=== PATIENT | male | born 1955 | race Asian ===

== ENCOUNTER 2018-08-14 22:18 | Inpatient (IN) | payer MEDICARE, MEDICAID ==
[~2018-08-14] VITALS: Ht 165.1 cm; Wt 51.7 kg
[2018-08-14] MEDS ORDERED: ASPIR 8181 MG ORAL (22:28)
[2018-08-14] MEDS ORDERED: BENAZEPRIL HCL20 MG ORAL (22:29)
[2018-08-14] MEDS ORDERED: CALCIUM CITRAT480 GM PO (22:30)
[2018-08-14] MEDS ORDERED: DOCUSATE SODIU100 MG ORAL (22:30)
[2018-08-14] MEDS ORDERED: FERROUS SU15 MG/1 M1 PO (22:31)
[2018-08-14] MEDS ORDERED: METFORMIN HCL500 M1 ORAL (22:31)
[2018-08-14] MEDS ORDERED: LEVAQUIN500 MG ORAL (22:31)
[2018-08-14] MEDS ORDERED: MILK OF MA400 MG/51 ORAL (22:32)
[2018-08-14] MEDS ORDERED: PRILOSEC OTC20 MG ORAL (22:32)
[2018-08-14 22:33] VITALS: BP 139/75
[2018-08-14] MEDS ORDERED: RISPERDAL0.25 MG ORAL (22:33)
--- NOTE | 2018-08-14 22:33 | NUR ---
ED Nurse Note: Pt was brought in ED by Ambulance from [facility]/ [facility]. C/o pt was having fever 102. F. Pt is awake, confused. Temp 100. F on [place]. skine intact at sacrum area, bed rest, diaper in place. Dr. Holt at bed side, waitng for orders.
[2018-08-14] MEDS ORDERED: ACETAMINOPHEN120 MG GT (22:34)
--- NOTE | 2018-08-14 22:45 | NUR ---
ED Nurse Note: Blood and urine sample collected and sent to Lab.
--- NOTE | 2018-08-14 23:07 | NUR ---
ED Nurse Note: Meds given as ordered.
[2018-08-14] MEDS ORDERED: Azithromycin 500 MG in NS 275 ML IV ONE (23:15)
[2018-08-14] MEDS ORDERED: Cefepime HCl 1 GM in D5W 55 ML IVPB ONE (23:15)
[2018-08-14 23:16] LABS: HEMATOCRIT 45.1 % (42.0-52.0); HEMOGLOBIN 14.9 G/DL (14.2-18.0); MEAN CORPUSCULAR VOLUME 93 FL (80-99); PLATELET COUNT 324 K/UL (150-450); RED BLOOD COUNT 4.85 M/UL (4.70-6.10); RED CELL DISTRIBUTION WIDTH 11.7 % (11.6-14.8); WHITE BLOOD COUNT 15.6 K/UL (4.8-10.8)
[2018-08-14 23:24] LABS: ANION GAP 9 mmol/L (5-15); BLOOD UREA NITROGEN 35 mg/dL (7-18); CALCIUM 9.2 MG/DL (8.5-10.1); CARBON DIOXIDE 32 MMOL/L (21-32); CHLORIDE 110 MMOL/L (98-107); CREATININE 1.1 MG/DL (0.55-1.30); POTASSIUM 4.1 MMOL/L (3.5-5.1); SODIUM 151 MMOL/L (136-145)
[2018-08-14 23:37] LABS: ALANINE AMINOTRANSFERASE 42 U/L (12-78); ALBUMIN 3.3 G/DL (3.4-5.0); ALBUMIN/GLOBULIN RATIO 0.7 (1.0-2.7); ALKALINE PHOSPHATASE 129 U/L (46-116); ASPARTATE AMINO TRANSFERASE 23 U/L (15-37); BILIRUBIN,TOTAL 0.5 MG/DL (0.2-1.0); CKMB < 0.5 NG/ML (0.0-3.6); CREATINE KINASE 23 U/L (26-308)
[2018-08-15 00:22] LABS: APPEARANCE,URINE CLOUDY; BILIRUBIN, URINE NEGATIVE (NEGATIVE); COLOR,URINE PALE YELLOW; GLUCOSE, URINE (UA) NEGATIVE (NEGATIVE); KETONES,URINE NEGATIVE (NEGATIVE); LEUKOCYTE ESTERASE ,URINE 1+ (NEGATIVE); NITRITE,URINE NEGATIVE (NEGATIVE); PH,URINE 7 (4.5-8.0); PROTEIN,URINE 2+ (NEGATIVE); UROBILINOGEN,URINE 1 MG/DL (0.0-1.0)
--- NOTE | 2018-08-15 01:10 | NUR ---
TRANSFER TO FLOOR: Patient transferred to / [facility] as ordered . Report given to Jennifer/PATRICK . Belongings sent with Pt and rechecked with RN. Pt is A/O X 3. VSS.
--- NOTE | 2018-08-15 01:11 | Emergency Room Report ---
History of Present Illness General Chief Complaint: Fever Source: Medical Record, EMS Present Illness HPI This is a 62-year-old male from group home. He has multiple local problem including bedbound with feeding tube. He presents with chief complaint of fever and shortness of breath. He was treated for pneumonia with Levaquin. Just finished a course of antibiotics. Suspect a fever of 102 today. No nausea no vomiting. Tylenol given 24 hours ago. Unable to get any other history from patient because of his condition. Allergies: Coded Allergies: No Known Allergies (Unverified , 08/14/18) Patient History Past Medical History: see triage record, old chart reviewed, HTN, GERD, psych hx Past Surgical History: other Pertinent Family History: none Social History: Denies: smoking Immunizations: other Reviewed Nursing Documentation: PMH: Agreed; PSxH: Agreed Nursing Documentation-PMH Past Medical History: No History, Except For Hx Hypertension: Yes Hx Diabetes: Yes Hx Gastrointestinal Problems: Yes - gerd History Of Psychiatric Problem: Yes - schizophrenia Hx Neurological Problems: Yes - functional quadriplegia Review of Systems Constitutional: Reports: fever, malaise, weakness All Other Systems: limited - Secondary to condition Physical Exam Vital Signs Date Time Temp Pulse Resp B/P (MAP) Pulse Ox O2 Delivery O2 Flow Rate FiO2 08/14/18 22:19 102.0 120 20 173/77 97 Nasal Cannula 2.0 vitals with fever Sp02 EP Interpretation: abnormal General Appearance: mild distress Head: normocephalic, atraumatic Eyes: bilateral eye PERRL, bilateral eye EOMI ENT: hearing grossly normal, dry mucus membranes Neck: full range of motion, supple, no meningismus Respiratory: chest non-tender, decreased breath sounds, rhonchi Cardiovascular #1: regular rate, rhythm, no murmur Gastrointestinal: normal bowel sounds, non tender, no mass, no organomegaly, no bruit, non-distended Musculoskeletal: back normal, other - Contracted Psychiatric: mood/affect normal Skin: warm/dry Procedures Critical Care Time Critical Care Time Critical care is mandated in this patient who presented with sepsis from pneumonia. Patient require my urgent intervention to attenuate the risks of metabolic collapse which may lead to cardiovascular collapse and . Critical care time is 35 minutes excluding any reportable procedure. Critical care time included evaluation, multiple reevaluation, looking at old charts, interpreting laboratory and diagnostic data, discussing case with patient and family and consultants, and charting. Medical Decision Making Diagnostic Impression: Primary Impression: Healthcare associated bacterial pneumonia Additional Impressions: Dehydration Sepsis Qualified Codes: A41.9 - Sepsis, unspecified organism Hypernatremia ER Course Patient presents with sepsis secondary to pneumonia. Chest x-ray showed bibasilar reticular interstitial infiltrates. He was treated with Levaquin. We 'll broaden antibiotics with cefepime and azithromycin. Patient improve after IV fluid and antibiotics. Will admit I discussed the case with Dr. Garcia who will admit for Dr. Reynoso. Lab Results Impression labs with hypernatremia EKG Diagnostic Results Rate: tachycardiac Rhythm: NSR ST Segments: other - NSST changes Rhythm Strip Diag. Results Rhythm Strip Time: 01:10 EP Interpretation: yes Rate: 98 Rhythm: NSR, no PVC's, no ectopy Chest X-Ray Diagnostic Results Chest X-Ray Diagnostic Results : Chest X-Ray Ordered: Yes # of Views/Limited/Complete: 1 View Indication: Shortness of Breath EP Interpretation: Yes Interpretation: no effusion, no pneumothorax, other - b/l interstitial infiltrates Impression: Other - b/l infiltrates Electronically Signed by: Hiram Holt MD Last Vital Signs Date Time Temp Pulse Resp B/P (MAP) Pulse Ox O2 Delivery O2 Flow Rate FiO2 08/14/18 22:19 102.0 120 20 173/77 97 Nasal Cannula 2.0 Status: improved Disposition: ADMITTED INPATIENT Condition: Serious Referrals: Jasmeet Reynoso DO (PCP) Hiram Holt MD Aug 15, 2018 01:11
--- NOTE | 2018-08-15 01:30 | NUR ---
Received patient via gurney from ER. Nonverbal, on O2 3L via N/C. No SOB, no acute distress noted. GT clamped, skin intact. Admitting Dx is PNA, vitals stable. Med recon and swabs done in ER. Checked belongings. Bed in lowest position, locked, alarms on. Call light in reach. Will received admission orders from Dr Bhatia.
[2018-08-15] MEDS ORDERED: Acetaminophen 500mg (ES) tab ORAL PRN (02:00)
[2018-08-15 04:00] VITALS: BP 101/76
[2018-08-15 04:25] LABS: BASOPHILS % (AUTO) 0.6 % (0.0-2.0); EOSINOPHILS % (AUTO) 0.1 % (0.0-3.0); HEMATOCRIT 38.1 % (42.0-52.0); HEMOGLOBIN 12.4 G/DL (14.2-18.0); LYMPHOCYTES % (AUTO) 11.3 % (20.0-45.0); MEAN CORPUSCULAR VOLUME 94 FL (80-99); MONOCYTES % (AUTO) 3.7 % (1.0-10.0); NEUTROPHILS % (AUTO) 84.2 % (45.0-75.0); PLATELET COUNT 269 K/UL (150-450); RED BLOOD COUNT 4.05 M/UL (4.70-6.10); RED CELL DISTRIBUTION WIDTH 11.8 % (11.6-14.8); WHITE BLOOD COUNT 11.7 K/UL (4.8-10.8)
[2018-08-15 04:45] LABS: ALANINE AMINOTRANSFERASE 34 U/L (12-78); ALBUMIN 2.7 G/DL (3.4-5.0); ALBUMIN/GLOBULIN RATIO 0.7 (1.0-2.7); ALKALINE PHOSPHATASE 96 U/L (46-116); ANION GAP 5 mmol/L (5-15); ASPARTATE AMINO TRANSFERASE 22 U/L (15-37); BILIRUBIN,TOTAL 0.5 MG/DL (0.2-1.0); BLOOD UREA NITROGEN 27 mg/dL (7-18); CALCIUM 7.9 MG/DL (8.5-10.1); CARBON DIOXIDE 32 MMOL/L (21-32); CHLORIDE 116 MMOL/L (98-107); CREATININE 0.8 MG/DL (0.55-1.30); POTASSIUM 3.7 MMOL/L (3.5-5.1); SODIUM 153 MMOL/L (136-145)
--- NOTE | 2018-08-15 07:40 | NUR ---
HAND-OFF: Report given to PATRICK Simon.
--- NOTE | 2018-08-15 07:45 | NUR ---
received patient from PATRICK Reyes. patient in bed. awake. non verbal. low bed. call light within reach. cont to monitor
[2018-08-15 08:00] VITALS: BP 138/93
[2018-08-15] MEDS: Cefepime HCl 1 GM in D5W 55 ML IVPB SCH ×2 (08:59→21:33)
--- NOTE | 2018-08-15 11:30 | Consultation ---
DATE OF CONSULTATION: 08/15/2018 GASTROENTEROLOGY CONSULTATION CONSULTING PHYSICIAN: Arthur Horton M.D. CHIEF COMPLAINT: Dysphagia with G-tube and G-tube management and G-tube feeding. HISTORY OF PRESENT ILLNESS: This is an unfortunate 62-year-old male long-term patient, nonverbal, dysphagia with G-tube, most probably history of stroke in the past, neurological disorder, functional quadriplegia, was transferred to the hospital with pneumonia, for G-tube questions and feeding, so GI consulted for that. PAST MEDICAL HISTORY: 1. Hypertension. 2. GERD. 3. Dysphagia requiring G-tube. 4. Questionable CVA with functional quadriplegia. PAST SURGICAL HISTORY: Unknown. ALLERGIES: No known drug allergies. MEDICATIONS: Please see medication reconciliation list. SOCIAL HISTORY: Currently lives in a long-term. No history of tobacco, alcohol, or drug abuse. FAMILY HISTORY: Noncontributory. REVIEW OF SYSTEMS: Unable to obtain. PHYSICAL EXAMINATION: VITAL SIGNS: Temperature 98.1, pulse 90, respiratory rate 20, and blood pressure is 132/93. HEENT: Normocephalic and atraumatic. Sclerae anicteric. NECK: Supple. No evidence of lymphadenopathy. CARDIOVASCULAR: Regular rhythm. Plus S1 and S2. LUNGS: Decreased breath sounds bilaterally based on supine exam. ABDOMEN: Soft and nontender. G-tube in place. No rebound. No guarding. No peritoneal sign. EXTREMITIES: No cyanosis. No clubbing. No edema. LABORATORY DATA: White count is 11.7, hemoglobin 12, hematocrit 38, and platelet count is 269. ASSESSMENT AND PLAN: This is a 62-year-old male with numerous medical problems admitted to hospital with possible pneumonia antibiotics. G-tube was examined at the bedside, seems to be in the right place. Status post tube feeding, Glucerna 1.2 at 60 mL an hour. We will start the G-tube flushing with 100 mL of water every six hours. We will monitor his feeding, monitor his residual, monitor his blood sugar. Repeat laboratories for tomorrow. Antibiotics for pneumonia per ID. I want to thank, Dr. Pinky Bhatia, for this kind referral. Arthur Thien Horton DR: JERRY JOB#: [id number] CC: Pinky Bhatia M.D.; Fax#: [phone]
[2018-08-15 11:34] VITALS: BP 128/91
[2018-08-15] MEDS: NovoLOG Insulin Flexpen SUBQ SCH ×3 (12:23→21:32)
--- NOTE | 2018-08-15 12:30 | NUR ---
CASE MANAGEMENT:REVIEW BIBA FROM [facility] CC: FEVER. JUST FINISHED ANTIBIOTICS FOR PNEUMONIA SI: PNA. SEPSIS 102.0 120 20 173/77 97% ON 2L/NC WBC 15.6 NA+151 IS: 1L NS BOLUS IV CEFEPIME IV AZITHROMYCIN BLOOD CX CXR :TO MED/SURG 4 [facility] CRITERIA MET
--- NOTE | 2018-08-15 14:30 | Consultation ---
DATE OF CONSULTATION: 08/15/2018 INFECTIOUS DISEASES CONSULTATION CONSULTING PHYSICIAN: Wilman Palma M.D. REFERRING PHYSICIAN: Pinky Bhatia M.D. This consultation has been done on behalf of Dr. Bal Kendrick. REASON FOR CONSULTATION: Fever. HISTORY OF PRESENTING ILLNESS: This is a 62-year-old gentleman with history of hypertension, diabetes, GERD, schizophrenia, who came in with fever and shortness of breath. He was treated for pneumonia with the Levaquin and he has completed his course of antibiotics, but now he has had some fever and an Infectious Diseases consultation has been obtained. PAST MEDICAL HISTORY: 1. History of diabetes. 2. Hypertension. 3. GERD. 4. Schizophrenia. 5. Quadriplegia. 6. Status post G-tube placement. SOCIAL HISTORY: Unknown. FAMILY HISTORY: Unknown. REVIEW OF SYSTEMS: Unable to obtain currently. MEDICATIONS: As an inpatient, he is on cefepime and Tylenol. ALLERGIES: No known drug allergies. PHYSICAL EXAMINATION: VITAL SIGNS: Temperature of 98.1, T-max of 102, pulse of 98, respiratory rate 20, blood pressure 138/93, and O2 saturation of 95%. HEENT: Pupils equally reactive to light and accommodation. Mouth appears clean without thrush. NECK: Supple. No adenopathy. No JVD. CARDIOVASCULAR: Regular rate and rhythm. No murmurs. LUNGS: Clear to auscultation bilaterally. No crackles. No wheezes. ABDOMEN: Soft and nontender. G-tube site appears clean. EXTREMITIES: No cyanosis, no clubbing, no edema. LABORATORY AND DIAGNOSTIC DATA: White count of 15.6 yesterday, white count of 11.7 today, hemoglobin 12.4, hematocrit 38.1, MCV 94, platelet count of 269, neutrophils of 84%. Sodium , potassium 3.7, chloride 116, bicarb 32, BUN 27, creatinine 0.8, glucose 133, calcium 7.9. Total bilirubin 0.5. AST 22, ALT 34, and alkaline phosphatase 96. Total protein 6.6. Albumin 2.7. UA showing 2 to 4 white cells. Chest x-ray, bilateral interstitial infiltrates. ASSESSMENT: 1. This is a 62-year-old gentleman with history of diabetes, hypertension, schizophrenia, quadriplegia, status post G-tube placement, who comes in with fevers and was found to have pneumonia, with the concern regarding community-acquired pneumonia versus aspiration pneumonia versus atypical pneumonia. 2. Leukocytosis improving. 3. Diabetes. 4. Hypertension. PLAN: 1. Continue cefepime. 2. We will order sputum for Gram stain and culture. 3. We will order for serum Legionella antibody. 4. We will order for Mycoplasma serology. 5. We will add doxycycline. 6. We will follow up cultures and adjust antibiotics accordingly. I would like to thank, Dr. Bhatia, for this consultation. Wilman Palma M.D. DR: LOWELL JOB#: [id number] CC: Pinky Bhatia M.D.; Fax#: [phone]
--- NOTE | 2018-08-15 15:52 | Diagnostic Imaging Report ---
EXAM: XR Chest, 1 View CLINICAL HISTORY: SOB TECHNIQUE: Frontal view of the chest. COMPARISON: No relevant prior studies available. FINDINGS: Lungs: Bibasilar reticular interstitial infiltrates are seen. Pleural space: Unremarkable. No pneumothorax. Heart: Unremarkable. No cardiomegaly. Mediastinum: Unremarkable. Bones/joints: Unremarkable. IMPRESSION: Bibasilar reticular interstitial infiltrates.
[2018-08-15 16:00] VITALS: BP 106/69
[2018-08-15] MEDS ORDERED: Docusate 100mg cap ORAL SCH (18:00)
--- NOTE | 2018-08-15 19:23 | NUR ---
HAND-OFF: Report given to Samira NGUYEN.
[2018-08-15 20:00] VITALS: BP 111/79
--- NOTE | 2018-08-15 20:10 | NUR ---
NURSE NOTES: Patient in bed, awake, nonverbal. IV in place. No s/s distress noted. No s/s pain per FLACC scale. Gtube placement auscultated, no residuals noted, tolerating tube feeding. HOB elevated, bed in lowest position, bed alarm on, call light within reach. Will continue to monitor.
--- NOTE | 2018-08-15 21:30 | History and Physical Report ---
DATE OF ADMISSION: 08/14/[address] Jasmeet Reynoso's patient. I am covering for Dr. Jasmeet Reynoso. HISTORY OF PRESENT ILLNESS: The patient is admitted for sepsis from pneumonia, leukocytosis, hypernatremia, azotemia, and elevated lactate. Admitted for and pneumonia. The patient is bedbound. Cannot get much history from the patient. The patient might have also had fever at the facility. PAST MEDICAL HISTORY: Organic brain syndrome, history of hypertension, GERD, psychosis, schizophrenia, functional quadriplegia, iron-deficiency anemia, constipation, and NIDDM. PAST SURGICAL HISTORY: PEG. ALLERGIES: No known allergies. MEDICATIONS: Aspirin, benazepril, calcium, Colace, ferrous sulfate, metformin, omeprazole, and risperidone. SOCIAL HISTORY: Unable to obtain. REVIEW OF SYSTEMS: Unable to obtain. PHYSICAL EXAMINATION: VITAL SIGNS: Temperature 99, pulse is 98, and blood pressure 110/75. HEENT: PERRLA. NECK: Supple. No lymphadenopathy. CHEST: Clear to auscultation. CARDIOVASCULAR: Regular rate and rhythm. ABDOMEN: G-tube site is intact. Positive bowel sounds. EXTREMITIES: He does have contractures. SKIN: For skin integrity, please refer to the nursing notes. NEUROLOGICAL: Does not follow neurological exam. LABORATORY DATA: WBC of 15.6, hemoglobin , and platelets of 324,000. Sodium 151, potassium 4.1, BUN of 35, creatinine 1.1, and glucose of 177. ASSESSMENT: 1. Sepsis. 2. Pneumonia on the x-ray. 3. Leukocytosis. 4. Azotemia. 5. Elevated lactate. PLAN: I have asked Dr. Smalls as well as Dr. Bal Kendrick to see the patient for the above-mentioned diagnoses and treatment. Antibiotics per Infectious Disease. Pinky Bhatia M.D. DR: KEN JOB#: [id number] CC:
[2018-08-15] MEDS ORDERED: Tubing IV Secondary IV ONE (22:43)
[2018-08-15] MEDS ORDERED: D5 1/2NS 1000ml IV ONE (22:43)
[2018-08-16 00:41] VITALS: BP 109/72
[2018-08-16 04:51] VITALS: BP 125/84
--- NOTE | 2018-08-16 05:45 | NUR ---
NURSE NOTES: PATIENT IN BED, ASLEEP, NO DISTRESS, V/S STABLE.
[2018-08-16] MEDS: NovoLOG Insulin Flexpen SUBQ SCH ×4 (06:12→22:09)
--- NOTE | 2018-08-16 06:15 | General Progress Note ---
Assessment/Plan Problem List: (1) G tube feedings ICD Codes: Z93.1 - Gastrostomy status SNOMED: 648303956, 248248957 (2) Pneumonia ICD Codes: J18.9 - Pneumonia, unspecified organism SNOMED: 517395706 (3) Hypernatremia ICD Codes: E87.0 - Hyperosmolality and hypernatremia SNOMED: 47307329 (4) Dehydration ICD Codes: E86.0 - Dehydration SNOMED: 64991083 Assessment/Plan tolerating GTF GT care and flush fu labs abx per ID Subjective ROS Limited/Unobtainable: No Allergies: Coded Allergies: No Known Allergies (Unverified , 08/14/18) Objective Last 24 Hour Vital Signs Date Time Temp Pulse Resp B/P (MAP) Pulse Ox O2 Delivery O2 Flow Rate FiO2 08/16/18 04:51 97.9 90 20 125/84 (98) 95 08/16/18 00:41 97.7 91 21 109/72 (84) 92 08/15/18 20:00 Room Air 08/15/18 20:00 97.6 89 18 111/79 (90) 93 08/15/18 16:00 97.7 99 20 106/69 (81) 94 08/15/18 11:34 98.2 97 20 128/91 (103) 96 08/15/18 09:00 Nasal Cannula 3.0 08/15/18 08:00 98.1 98 20 138/93 (108) Intake and Output 08/15/18 08/16/18 19:00 07:00 Intake Total 690 ml 685 ml Output Total 300 ml Balance 390 ml 685 ml Intake Free Water 150 ml 150 ml IV Total 55 ml Tube Feeding 540 ml 480 ml Output Urine Total 300 ml # Voids 2 Height (Feet): 5 Height (Inches): 5.00 Weight (Pounds): 114 General Appearance: no apparent distress EENT: TMs normal Neck: supple Cardiovascular: normal rate Respiratory/Chest: decreased breath sounds Abdomen: normal bowel sounds, non tender, soft Extremities: non-tender Arthur Horton MD Aug 16, 2018 06:15
[2018-08-16 07:19] LABS: EOSINOPHILS % (AUTO) 1.5 % (0.0-3.0); LYMPHOCYTES % (AUTO) 14.2 % (20.0-45.0); MEAN CORPUSCULAR VOLUME 94 FL (80-99); MONOCYTES % (AUTO) 4.6 % (1.0-10.0); NEUTROPHILS % (AUTO) 78.7 % (45.0-75.0); PLATELET COUNT 273 K/UL (150-450); RED BLOOD COUNT 4.26 M/UL (4.70-6.10); RED CELL DISTRIBUTION WIDTH 11.9 % (11.6-14.8); WHITE BLOOD COUNT 7.1 K/UL (4.8-10.8)
--- NOTE | 2018-08-16 07:28 | NUR ---
HAND-OFF: Report given to GRIFFIN Mendoza RN.
[2018-08-16 07:34] LABS: ANION GAP 8 mmol/L (5-15); BLOOD UREA NITROGEN 20 mg/dL (7-18); CALCIUM 8.8 MG/DL (8.5-10.1); CARBON DIOXIDE 29 MMOL/L (21-32); CHLORIDE 112 MMOL/L (98-107); CREATININE 0.7 MG/DL (0.55-1.30); POTASSIUM 3.6 MMOL/L (3.5-5.1); SODIUM 149 MMOL/L (136-145)
[2018-08-16 08:00] VITALS: BP 114/86
--- NOTE | 2018-08-16 08:01 | NUR ---
NURSE NOTES: received atient in bed, awake, nonverbal. Patient has RFA IV access in place. No sign of distress noted. Gtube in place, receives Glucerna 1.2 @ 60cc/hr. HOB elevated for aspiraction precaution, bed in lowest position, bed alarm on, call light within reach and siderails up for safety. Will continue to monitor patient and follow up with the plan of care.
[2018-08-16] MEDS: Benazepril 10mg tab ORAL SCH ×2 (09:00→22:06)
--- NOTE | 2018-08-16 09:16 | General Progress Note ---
Assessment/Plan Problem List: (1) Sepsis ICD Codes: A41.9 - Sepsis, unspecified organism SNOMED: 54815685 Qualifiers: Qualified Codes: A41.9 - Sepsis, unspecified organism (2) Healthcare associated bacterial pneumonia ICD Codes: J15.9 - Unspecified bacterial pneumonia SNOMED: 999914554 (3) Dehydration ICD Codes: E86.0 - Dehydration SNOMED: 63594253 (4) Pneumonia ICD Codes: J18.9 - Pneumonia, unspecified organism SNOMED: 280340866 (5) G tube feedings ICD Codes: Z93.1 - Gastrostomy status SNOMED: 322508883, 623358632 (6) Hypernatremia ICD Codes: E87.0 - Hyperosmolality and hypernatremia SNOMED: 50202877 Status: unchanged Assessment/Plan o2 pulm tx abx pt diet cbc bmp am Subjective Constitutional: Reports: weakness Respiratory: Reports: shortness of breath Allergies: Coded Allergies: No Known Allergies (Unverified , 08/14/18) All Systems: reviewed and negative except above Subjective sleepy calm Objective Last 24 Hour Vital Signs Date Time Temp Pulse Resp B/P (MAP) Pulse Ox O2 Delivery O2 Flow Rate FiO2 08/16/18 08:00 97.9 97 18 114/86 (95) 95 08/16/18 04:51 97.9 90 20 125/84 (98) 95 08/16/18 00:41 97.7 91 21 109/72 (84) 92 08/15/18 20:00 Room Air 08/15/18 20:00 97.6 89 18 111/79 (90) 93 08/15/18 16:00 97.7 99 20 106/69 (81) 94 08/15/18 11:34 98.2 97 20 128/91 (103) 96 Intake and Output 08/15/18 08/16/18 19:00 07:00 Intake Total 690 ml 1015 ml Output Total 300 ml 700 ml Balance 390 ml 315 ml Intake Free Water 150 ml 300 ml IV Total 55 ml Tube Feeding 540 ml 660 ml Output Urine Total 300 ml 700 ml # Voids 2 Laboratory Tests 08/16/18 05:25: White Blood Count 7.1, Red Blood Count 4.26L, Hemoglobin 13.0L, Hematocrit 40.0L , Mean Corpuscular Volume 94, Mean Corpuscular Hemoglobin 30.6, Mean Corpuscular Hemoglobin Concent 32.6, Red Cell Distribution Width 11.9, Platelet Count 273, Mean Platelet Volume 8.4, Neutrophils (%) (Auto) 78.7H, Lymphocytes ( %) (Auto) 14.2L, Monocytes (%) (Auto) 4.6, Eosinophils (%) (Auto) 1.5, Basophils (%) (Auto) 1.0, Sodium Level 149H, Potassium Level 3.6, Chloride Level 112H, Carbon Dioxide Level 29, Anion Gap 8, Blood Urea Nitrogen 20H, Creatinine 0.7, Estimat Glomerular Filtration Rate > 60, Glucose Level 149H, Calcium Level 8.8 Height (Feet): 5 Height (Inches): 5.00 Weight (Pounds): 114 General Appearance: lethargic EENT: normal ENT inspection Neck: normal alignment Cardiovascular: normal peripheral pulses, normal rate, regular rhythm Respiratory/Chest: chest wall non-tender, decreased breath sounds Abdomen: normal bowel sounds, non tender, soft Extremities: normal inspection Edema: no edema noted Arm (L), no edema noted Arm (R), no edema noted Leg (L), no edema noted Leg (R), no edema noted Pedal (L), no edema noted Pedal (R), no edema noted Generalized Neurologic: motor weakness Skin: normal pigmentation, warm/dry Jasmeet Reynoso DO Aug 16, 2018 09:16
[2018-08-16] MEDS: Cefepime HCl 1 GM in D5W 55 ML IVPB SCH ×2 (10:15→22:08)
[2018-08-16] MEDS: Docusate 100mg/10ml Liq GT SCH ×3 (10:16→18:17)
[2018-08-16] MEDS: Aspirin Baby 81mg GT SCH (10:16)
[2018-08-16] MEDS: Milk of Magnesia 30ml Ud GT SCH (10:16)
--- NOTE | 2018-08-16 10:29 | NUR ---
RD ASSESSMENT & RECOMMENDATIONS SEE CARE ACTIVITY FOR COMPLETE ASSESSMENT DAILY ESTIMATED NEEDS: Needs based on Underweight, TF [employer], DM 51.8kg 30-35 kcals/kg 3686-1093 total kcals 1-2 g protein/kg 52-104 g total protein 25-30 mL/kg 0530-8870 total fluid mLs NUTRITION DIAGNOSIS: 1) Swallowing difficulty r/t organic brain syndrome as evidenced by pt is PEG dep for all nutritional needs. CURRENT TF:Glucerna 1.2 @60ml x24 hrs ENTERAL NUTRITION RECOMMENDATIONS: MAINTAIN current TF: Glucerna 1.2 @60ml/hr x24 hrs to provide 1440ml, 1728 kcal, 86g prot, 1159ml free H2O - maintain current TF as tolerated to meet 100% est needs and to provide 33kcal/kg, 1.7g/kg prot. - Flush per MD/ HOB over 30 degrees ADDITIONAL RECOMMENDATIONS: 1) Weekly CALIBRATED bed scale wts 2) Monitor lytes, replete as needed 3) Monitor need for increased water flushes -> adm w/ water deficits, elev BUN, elev NA
[2018-08-16 12:00] VITALS: BP 119/82
--- NOTE | 2018-08-16 12:07 | Infectious Diseases Prog Note ---
Assessment/Plan Assessment/Plan A; Pneumonia DM HPN Schizophrenia Hypernatremia Acidosis P; Continue Cefepime & Doxycycline Will f/u cultures & serologies Subjective ROS Limited/Unobtainable: Yes Constitutional: Reports: no symptoms Allergies: Coded Allergies: No Known Allergies (Unverified , 08/14/18) Objective Vital Signs Last 24 Hour Vital Signs Date Time Temp Pulse Resp B/P (MAP) Pulse Ox O2 Delivery O2 Flow Rate FiO2 08/16/18 09:00 114/86 08/16/18 08:00 97.9 97 18 114/86 (95) 95 08/16/18 04:51 97.9 90 20 125/84 (98) 95 08/16/18 00:41 97.7 91 21 109/72 (84) 92 08/15/18 20:00 Room Air 08/15/18 20:00 97.6 89 18 111/79 (90) 93 08/15/18 16:00 97.7 99 20 106/69 (81) 94 Height (Feet): 5 Height (Inches): 5.00 Weight (Pounds): 114 General Appearance: no acute distress HEENT: mucous membranes moist Respiratory/Chest: lungs clear Cardiovascular: normal rate Abdomen: soft, non tender, other - GT feeding Extremities: no edema Neurologic/Psychiatric: aphasia, other - opens eyes Microbiology Date/Time Source Procedure Growth Status 08/14/18 23:16 Blood Blood Culture - Preliminary NO GROWTH AFTER 24 HOURS Resulted 08/14/18 23:01 Blood Blood Culture - Preliminary NO GROWTH AFTER 24 HOURS Resulted Laboratory Tests Test 08/16/18 05:25 White Blood Count 7.1 K/UL (4.8-10.8) Red Blood Count 4.26 M/UL (4.70-6.10) L Hemoglobin 13.0 G/DL (14.2-18.0) L Hematocrit 40.0 % (42.0-52.0) L Mean Corpuscular Volume 94 FL (80-99) Mean Corpuscular Hemoglobin 30.6 PG (27.0-31.0) Mean Corpuscular Hemoglobin Concent 32.6 G/DL (32.0-36.0) Red Cell Distribution Width 11.9 % (11.6-14.8) Platelet Count 273 K/UL (150-450) Mean Platelet Volume 8.4 FL (6.5-10.1) Neutrophils (%) (Auto) 78.7 % (45.0-75.0) H Lymphocytes (%) (Auto) 14.2 % (20.0-45.0) L Monocytes (%) (Auto) 4.6 % (1.0-10.0) Eosinophils (%) (Auto) 1.5 % (0.0-3.0) Basophils (%) (Auto) 1.0 % (0.0-2.0) Sodium Level 149 MMOL/L (136-145) H Potassium Level 3.6 MMOL/L (3.5-5.1) Chloride Level 112 MMOL/L (98-107) H Carbon Dioxide Level 29 MMOL/L (21-32) Anion Gap 8 mmol/L (5-15) Blood Urea Nitrogen 20 mg/dL (7-18) H Creatinine 0.7 MG/DL (0.55-1.30) Estimat Glomerular Filtration Rate > 60 mL/min (>60) Glucose Level 149 MG/DL (74-106) H Calcium Level 8.8 MG/DL (8.5-10.1) Current Medications Medications (Trade) Dose Ordered Sig/Julito Route PRN Reason Start Time Stop Time Status Last Admin Dose Admin Acetaminophen (Tylenol) 500 mg Q4H PRN ORAL Mild Pain/Temp > 100.5 08/15/18 02:00 09/14/18 01:59 Aspirin (ASA) 81 mg DAILY GT 08/16/18 09:00 09/15/18 08:59 08/16/18 10:16 Benazepril HCl (Lotensin) 20 mg Q12HR ORAL 08/16/18 09:00 09/15/18 08:59 Cefepime HCl 1 gm/ Dextrose 55 ml @ 110 mls/hr EVERY 12 HOURS IVPB 08/15/18 09:00 08/22/18 08:59 08/16/18 10:15 Dextrose (Dextrose 50%) 25 ml Q30M PRN IV Hypoglycemia 08/15/18 11:30 09/14/18 11:29 Dextrose (Dextrose 50%) 50 ml Q30M PRN IV Hypoglycemia 08/15/18 11:30 09/14/18 11:29 Docusate Sodium (Colace) 100 mg THREE TIMES A DAY GT 08/16/18 09:00 09/15/18 08:59 08/16/18 10:16 Doxycycline Monohydrate (Vibramycin) 100 mg EVERY 12 HOURS ORAL 08/15/18 11:15 08/22/18 11:14 08/16/18 10:16 Insulin Aspart (NovoLOG) BEFORE MEALS AND HS SUBQ 08/15/18 11:30 09/14/18 11:29 08/16/18 06:12 Magnesium Hydroxide (Mom) 30 ml DAILY GT 08/16/18 09:00 09/15/18 08:59 08/16/18 10:16 Risperidone (RisperDAL) 0.25 mg DAILY ORAL 08/16/18 09:00 09/15/18 08:59 08/16/18 10:16 Bal Kendrick MD Aug 16, 2018 12:07
--- NOTE | 2018-08-16 15:50 | Pulmonology Progress Note ---
Assessment/Plan Problems: (1) ATN (acute tubular necrosis) (2) G tube feedings (3) Healthcare associated bacterial pneumonia (4) Sepsis (5) Hypernatremia Assessment/Plan iv abx check electrolytes iv fluids cxr in 1-2 days dvt prophylaxis Subjective ROS Limited/Unobtainable: No Constitutional: Reports: no symptoms HEENT: Repors: no symptoms Allergies: Coded Allergies: No Known Allergies (Unverified , 08/14/18) Objective Last 24 Hour Vital Signs Date Time Temp Pulse Resp B/P (MAP) Pulse Ox O2 Delivery O2 Flow Rate FiO2 08/16/18 12:00 98.0 94 18 119/82 (94) 96 08/16/18 09:00 114/86 08/16/18 09:00 Room Air 08/16/18 08:00 97.9 97 18 114/86 (95) 95 08/16/18 04:51 97.9 90 20 125/84 (98) 95 08/16/18 00:41 97.7 91 21 109/72 (84) 92 08/15/18 20:00 Room Air 08/15/18 20:00 97.6 89 18 111/79 (90) 93 08/15/18 16:00 97.7 99 20 106/69 (81) 94 Intake and Output 08/15/18 08/16/18 19:00 07:00 Intake Total 690 ml 1015 ml Output Total 300 ml 700 ml Balance 390 ml 315 ml Intake Free Water 150 ml 300 ml IV Total 55 ml Tube Feeding 540 ml 660 ml Output Urine Total 300 ml 700 ml # Voids 2 General Appearance: cachetic HEENT: normocephalic, atraumatic Respiratory/Chest: chest wall non-tender, lungs clear Cardiovascular: normal peripheral pulses, normal rate Abdomen: normal bowel sounds, soft, non tender Extremities: no cyanosis Skin: no rash 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 Lymphatic: no neck adenopathy Microbiology Date/Time Source Procedure Growth Status 08/14/18 23:16 Blood Blood Culture - Preliminary NO GROWTH AFTER 24 HOURS Resulted 08/14/18 23:01 Blood Blood Culture - Preliminary NO GROWTH AFTER 24 HOURS Resulted Laboratory Tests 08/16/18 05:25: White Blood Count 7.1, Red Blood Count 4.26L, Hemoglobin 13.0L, Hematocrit 40.0L , Mean Corpuscular Volume 94, Mean Corpuscular Hemoglobin 30.6, Mean Corpuscular Hemoglobin Concent 32.6, Red Cell Distribution Width 11.9, Platelet Count 273, Mean Platelet Volume 8.4, Neutrophils (%) (Auto) 78.7H, Lymphocytes ( %) (Auto) 14.2L, Monocytes (%) (Auto) 4.6, Eosinophils (%) (Auto) 1.5, Basophils (%) (Auto) 1.0, Sodium Level 149H, Potassium Level 3.6, Chloride Level 112H, Carbon Dioxide Level 29, Anion Gap 8, Blood Urea Nitrogen 20H, Creatinine 0.7, Estimat Glomerular Filtration Rate > 60, Glucose Level 149H, Calcium Level 8.8 Current Medications Medications (Trade) Dose Ordered Sig/Julito Route PRN Reason Start Time Stop Time Status Last Admin Dose Admin Acetaminophen (Tylenol) 500 mg Q4H PRN ORAL Mild Pain/Temp > 100.5 08/15/18 02:00 09/14/18 01:59 Aspirin (ASA) 81 mg DAILY GT 08/16/18 09:00 09/15/18 08:59 08/16/18 10:16 Benazepril HCl (Lotensin) 20 mg Q12HR ORAL 08/16/18 09:00 09/15/18 08:59 Cefepime HCl 1 gm/ Dextrose 55 ml @ 110 mls/hr EVERY 12 HOURS IVPB 08/15/18 09:00 08/22/18 08:59 08/16/18 10:15 Dextrose (Dextrose 50%) 25 ml Q30M PRN IV Hypoglycemia 08/15/18 11:30 09/14/18 11:29 Dextrose (Dextrose 50%) 50 ml Q30M PRN IV Hypoglycemia 08/15/18 11:30 09/14/18 11:29 Docusate Sodium (Colace) 100 mg THREE TIMES A DAY GT 08/16/18 09:00 09/15/18 08:59 08/16/18 12:23 Doxycycline Monohydrate (Vibramycin) 100 mg EVERY 12 HOURS ORAL 08/15/18 11:15 08/22/18 11:14 08/16/18 10:16 Insulin Aspart (NovoLOG) BEFORE MEALS AND HS SUBQ 08/15/18 11:30 09/14/18 11:29 08/16/18 12:28 Magnesium Hydroxide (Mom) 30 ml DAILY GT 08/16/18 09:00 09/15/18 08:59 08/16/18 10:16 Risperidone (RisperDAL) 0.25 mg DAILY ORAL 08/16/18 09:00 09/15/18 08:59 08/16/18 10:16 Po Li MD Aug 16, 2018 15:50
[2018-08-16 16:00] VITALS: BP 125/89
--- NOTE | 2018-08-16 19:36 | NUR ---
HAND-OFF: Report given to PATRICK Goyal.
--- NOTE | 2018-08-16 19:56 | NUR ---
NURSE NOTES: Received report from PATRICK Metcalf. Patient is in bed asleep with no signs of acute distress. Respiration even and non labored on 3L NC. Vital signs stable. Bed in lowest position. Call light within reach. Will continue plan of care.
[2018-08-16 20:00] VITALS: BP 143/78
[2018-08-17] VITALS: BP 138/88
[2018-08-17 04:00] VITALS: BP 116/80
[2018-08-17] MEDS: NovoLOG Insulin Flexpen SUBQ SCH ×4 (05:58→21:00)
--- NOTE | 2018-08-17 07:24 | NUR ---
HAND-OFF: Report given to PATRICK Metcalf. Patient is in bed awake with no signs of acute distress. Vital signs stable. No SOB.
[2018-08-17 08:00] VITALS: BP 134/84
--- NOTE | 2018-08-17 08:00 | NUR ---
NURSE NOTES: received patient in bed, awake, nonverbalno sign of distress noted. Patient has LFA IV access in place, on TKO. No sign of distress noted. Gtube in place, receives Glucerna 1.2 @ 60cc/hr. HOB elevated for aspiration precaution, bed in lowest position, bed alarm on, call light within reach and siderails up for safety. Will continue to monitor patient and follow up with the plan of care.
[2018-08-17] MEDS: Aspirin Baby 81mg GT SCH (08:16)
[2018-08-17] MEDS: Milk of Magnesia 30ml Ud GT SCH (08:16)
[2018-08-17] MEDS: Docusate 100mg/10ml Liq GT SCH ×3 (08:16→17:44)
[2018-08-17] MEDS: Benazepril 10mg tab ORAL SCH ×2 (08:17→21:00)
[2018-08-17] MEDS: Cefepime HCl 1 GM in D5W 55 ML IVPB SCH ×2 (08:22→21:00)
[2018-08-17 09:23] LABS: EOSINOPHILS % (AUTO) 1.3 % (0.0-3.0); HEMATOCRIT 41.7 % (42.0-52.0); HEMOGLOBIN 13.4 G/DL (14.2-18.0); LYMPHOCYTES % (AUTO) 15.4 % (20.0-45.0); MEAN CORPUSCULAR VOLUME 94 FL (80-99); MONOCYTES % (AUTO) 4.9 % (1.0-10.0); NEUTROPHILS % (AUTO) 77.4 % (45.0-75.0); PLATELET COUNT 288 K/UL (150-450); RED BLOOD COUNT 4.45 M/UL (4.70-6.10); RED CELL DISTRIBUTION WIDTH 11.7 % (11.6-14.8); WHITE BLOOD COUNT 6.6 K/UL (4.8-10.8)
[2018-08-17 09:34] LABS: ANION GAP 8 mmol/L (5-15); BLOOD UREA NITROGEN 20 mg/dL (7-18); CALCIUM 8.5 MG/DL (8.5-10.1); CARBON DIOXIDE 28 MMOL/L (21-32); CHLORIDE 111 MMOL/L (98-107); CREATININE 0.7 MG/DL (0.55-1.30); POTASSIUM 3.7 MMOL/L (3.5-5.1); SODIUM 147 MMOL/L (136-145)
[2018-08-17 12:00] VITALS: BP 127/82
--- NOTE | 2018-08-17 12:19 | NUR ---
CASE MANAGEMENT:REVIEW 08/17/18 SI: PNA. SEPSIS 98.8 93 17 134/84 93% ON RA IS: 1L NS BOLUS IV CEFEPIME IV AZITHROMYCIN BLOOD CX CXR :TO MED/SURG [facility] DCP: FROM [facility]
--- NOTE | 2018-08-17 12:21 | NUR ---
DISCHARGE PLANNING NURSING TO OBTAIN CLEARANCE FROM CONSULTANTS IN PREPARATION FOR DISCHARGE Addendum: 08/17/18 at 1401 by PHOENIX MARIE LVN LVN DISCHARGE ORDER NOTED CLINICALS FAXED TO [facility] T: [phone] F: [phone] AWAITING RESPONSE AND BED ASSIGNMENT
--- NOTE | 2018-08-17 12:30 | Infectious Diseases Prog Note ---
Assessment/Plan Assessment/Plan A; Pneumonia DM HPN Schizophrenia Hypernatremia Acidosis P; Continue Cefepime & Doxycycline Will f/u cultures & serologies Subjective ROS Limited/Unobtainable: Yes Constitutional: Reports: no symptoms Allergies: Coded Allergies: No Known Allergies (Unverified , 08/14/18) Objective Vital Signs Last 24 Hour Vital Signs Date Time Temp Pulse Resp B/P (MAP) Pulse Ox O2 Delivery O2 Flow Rate FiO2 08/17/18 09:00 Room Air 08/17/18 08:17 134/84 08/17/18 08:00 98.8 93 17 134/84 (101) 93 08/17/18 04:00 97.8 91 18 116/80 (92) 97 08/17/18 00:00 97.1 92 16 138/88 (105) 96 08/16/18 22:06 143/73 08/16/18 21:00 Room Air 08/16/18 20:00 98.7 92 16 143/78 (99) 94 08/16/18 16:00 97.8 94 18 125/89 (101) 95 Height (Feet): 5 Height (Inches): 5.00 Weight (Pounds): 114 General Appearance: no acute distress HEENT: mucous membranes moist Respiratory/Chest: lungs clear Cardiovascular: normal rate Abdomen: soft, non tender, other - GT feeding Extremities: no edema Neurologic/Psychiatric: other - awake Microbiology Date/Time Source Procedure Growth Status 08/14/18 23:16 Blood Blood Culture - Preliminary NO GROWTH AFTER 48 HOURS Resulted 08/14/18 23:01 Blood Blood Culture - Preliminary NO GROWTH AFTER 48 HOURS Resulted 08/15/18 01:10 Nasal Nares MRSA Culture - Final NO METHICILLIN RESISTANT STAPH AUREUS... Complete 08/15/18 01:10 Rectum - Final NO CARBAPENEM-RESISTANT ENTEROBACTERI... Complete 08/15/18 01:10 Rectum VRE Culture - Final NO VANCOMYCIN RESISTANT ENTEROCOCCUS ... Complete Laboratory Tests Test 08/17/18 08:30 White Blood Count 6.6 K/UL (4.8-10.8) Red Blood Count 4.45 M/UL (4.70-6.10) L Hemoglobin 13.4 G/DL (14.2-18.0) L Hematocrit 41.7 % (42.0-52.0) L Mean Corpuscular Volume 94 FL (80-99) Mean Corpuscular Hemoglobin 30.1 PG (27.0-31.0) Mean Corpuscular Hemoglobin Concent 32.2 G/DL (32.0-36.0) Red Cell Distribution Width 11.7 % (11.6-14.8) Platelet Count 288 K/UL (150-450) Mean Platelet Volume 8.4 FL (6.5-10.1) Neutrophils (%) (Auto) 77.4 % (45.0-75.0) H Lymphocytes (%) (Auto) 15.4 % (20.0-45.0) L Monocytes (%) (Auto) 4.9 % (1.0-10.0) Eosinophils (%) (Auto) 1.3 % (0.0-3.0) Basophils (%) (Auto) 1.0 % (0.0-2.0) Sodium Level 147 MMOL/L (136-145) H Potassium Level 3.7 MMOL/L (3.5-5.1) Chloride Level 111 MMOL/L (98-107) H Carbon Dioxide Level 28 MMOL/L (21-32) Anion Gap 8 mmol/L (5-15) Blood Urea Nitrogen 20 mg/dL (7-18) H Creatinine 0.7 MG/DL (0.55-1.30) Estimat Glomerular Filtration Rate > 60 mL/min (>60) Glucose Level 148 MG/DL (74-106) H Calcium Level 8.5 MG/DL (8.5-10.1) Current Medications Medications (Trade) Dose Ordered Sig/Julito Route PRN Reason Start Time Stop Time Status Last Admin Dose Admin Acetaminophen (Tylenol) 500 mg Q4H PRN ORAL Mild Pain/Temp > 100.5 08/15/18 02:00 09/14/18 01:59 Aspirin (ASA) 81 mg DAILY GT 08/16/18 09:00 09/15/18 08:59 08/17/18 08:16 Benazepril HCl (Lotensin) 20 mg Q12HR ORAL 08/16/18 09:00 09/15/18 08:59 08/17/18 08:17 Cefepime HCl 1 gm/ Dextrose 55 ml @ 110 mls/hr EVERY 12 HOURS IVPB 08/15/18 09:00 08/22/18 08:59 08/17/18 08:22 Dextrose (Dextrose 50%) 25 ml Q30M PRN IV Hypoglycemia 08/15/18 11:30 09/14/18 11:29 Dextrose (Dextrose 50%) 50 ml Q30M PRN IV Hypoglycemia 08/15/18 11:30 09/14/18 11:29 Docusate Sodium (Colace) 100 mg THREE TIMES A DAY GT 08/16/18 09:00 09/15/18 08:59 08/17/18 08:16 Doxycycline Monohydrate (Vibramycin) 100 mg EVERY 12 HOURS ORAL 08/15/18 11:15 08/22/18 11:14 08/17/18 08:16 Insulin Aspart (NovoLOG) BEFORE MEALS AND HS SUBQ 08/15/18 11:30 09/14/18 11:29 08/17/18 05:58 Magnesium Hydroxide (Mom) 30 ml DAILY GT 08/16/18 09:00 09/15/18 08:59 08/17/18 08:16 Risperidone (RisperDAL) 0.25 mg DAILY ORAL 08/16/18 09:00 09/15/18 08:59 08/17/18 08:16 Bal Kendrick MD Aug 17, 2018 12:30
--- NOTE | 2018-08-17 12:58 | Pulmonology Progress Note ---
Assessment/Plan Problems: (1) ATN (acute tubular necrosis) (2) G tube feedings (3) Healthcare associated bacterial pneumonia (4) Sepsis (5) Protein-calorie malnutrition, severe (6) Hypernatremia Assessment/Plan iv abx check electrolytes iv fluids cxr in 1-2 days electrolytes dvt prophylaxis Subjective ROS Limited/Unobtainable: No Constitutional: Reports: no symptoms HEENT: Repors: no symptoms Allergies: Coded Allergies: No Known Allergies (Unverified , 08/14/18) Objective Last 24 Hour Vital Signs Date Time Temp Pulse Resp B/P (MAP) Pulse Ox O2 Delivery O2 Flow Rate FiO2 08/17/18 09:00 Room Air 08/17/18 08:17 134/84 08/17/18 08:00 98.8 93 17 134/84 (101) 93 08/17/18 04:00 97.8 91 18 116/80 (92) 97 08/17/18 00:00 97.1 92 16 138/88 (105) 96 08/16/18 22:06 143/73 08/16/18 21:00 Room Air 08/16/18 20:00 98.7 92 16 143/78 (99) 94 08/16/18 16:00 97.8 94 18 125/89 (101) 95 Intake and Output 08/16/18 08/17/18 19:00 07:00 Intake Total 960 ml 840 ml Balance 960 ml 840 ml Intake Free Water 300 ml 300 ml Tube Feeding 660 ml 540 ml # Voids 6 General Appearance: cachetic HEENT: normocephalic, atraumatic Respiratory/Chest: chest wall non-tender, lungs clear Cardiovascular: normal peripheral pulses, normal rate Abdomen: normal bowel sounds, non distended, no scars Extremities: no clubbing Microbiology Date/Time Source Procedure Growth Status 08/14/18 23:16 Blood Blood Culture - Preliminary NO GROWTH AFTER 48 HOURS Resulted 08/14/18 23:01 Blood Blood Culture - Preliminary NO GROWTH AFTER 48 HOURS Resulted 08/15/18 01:10 Nasal Nares MRSA Culture - Final NO METHICILLIN RESISTANT STAPH AUREUS... Complete 08/15/18 01:10 Rectum - Final NO CARBAPENEM-RESISTANT ENTEROBACTERI... Complete 08/15/18 01:10 Rectum VRE Culture - Final NO VANCOMYCIN RESISTANT ENTEROCOCCUS ... Complete Laboratory Tests 08/17/18 08:30: White Blood Count 6.6, Red Blood Count 4.45L, Hemoglobin 13.4L, Hematocrit 41.7L , Mean Corpuscular Volume 94, Mean Corpuscular Hemoglobin 30.1, Mean Corpuscular Hemoglobin Concent 32.2, Red Cell Distribution Width 11.7, Platelet Count 288, Mean Platelet Volume 8.4, Neutrophils (%) (Auto) 77.4H, Lymphocytes ( %) (Auto) 15.4L, Monocytes (%) (Auto) 4.9, Eosinophils (%) (Auto) 1.3, Basophils (%) (Auto) 1.0, Sodium Level 147H, Potassium Level 3.7, Chloride Level 111H, Carbon Dioxide Level 28, Anion Gap 8, Blood Urea Nitrogen 20H, Creatinine 0.7, Estimat Glomerular Filtration Rate > 60, Glucose Level 148H, Calcium Level 8.5 Current Medications Medications (Trade) Dose Ordered Sig/Julito Route PRN Reason Start Time Stop Time Status Last Admin Dose Admin Acetaminophen (Tylenol) 500 mg Q4H PRN ORAL Mild Pain/Temp > 100.5 08/15/18 02:00 09/14/18 01:59 Aspirin (ASA) 81 mg DAILY GT 08/16/18 09:00 09/15/18 08:59 08/17/18 08:16 Benazepril HCl (Lotensin) 20 mg Q12HR ORAL 08/16/18 09:00 09/15/18 08:59 08/17/18 08:17 Cefepime HCl 1 gm/ Dextrose 55 ml @ 110 mls/hr EVERY 12 HOURS IVPB 08/15/18 09:00 08/22/18 08:59 08/17/18 08:22 Dextrose (Dextrose 50%) 25 ml Q30M PRN IV Hypoglycemia 08/15/18 11:30 09/14/18 11:29 Dextrose (Dextrose 50%) 50 ml Q30M PRN IV Hypoglycemia 08/15/18 11:30 09/14/18 11:29 Docusate Sodium (Colace) 100 mg THREE TIMES A DAY GT 08/16/18 09:00 09/15/18 08:59 08/17/18 08:16 Doxycycline Monohydrate (Vibramycin) 100 mg EVERY 12 HOURS ORAL 08/15/18 11:15 08/22/18 11:14 08/17/18 08:16 Insulin Aspart (NovoLOG) BEFORE MEALS AND HS SUBQ 08/15/18 11:30 09/14/18 11:29 08/17/18 05:58 Magnesium Hydroxide (Mom) 30 ml DAILY GT 08/16/18 09:00 09/15/18 08:59 08/17/18 08:16 Risperidone (RisperDAL) 0.25 mg DAILY ORAL 08/16/18 09:00 09/15/18 08:59 08/17/18 08:16 Po Li MD Aug 17, 2018 12:58
--- NOTE | 2018-08-17 13:26 | General Progress Note ---
Assessment/Plan Problem List: (1) Sepsis ICD Codes: A41.9 - Sepsis, unspecified organism SNOMED: 77241394 Qualifiers: Qualified Codes: A41.9 - Sepsis, unspecified organism (2) Healthcare associated bacterial pneumonia ICD Codes: J15.9 - Unspecified bacterial pneumonia SNOMED: 944236370 (3) Dehydration ICD Codes: E86.0 - Dehydration SNOMED: 21668913 (4) Pneumonia ICD Codes: J18.9 - Pneumonia, unspecified organism SNOMED: 806476770 (5) G tube feedings ICD Codes: Z93.1 - Gastrostomy status SNOMED: 097630564, 153440413 (6) Hypernatremia ICD Codes: E87.0 - Hyperosmolality and hypernatremia SNOMED: 07496386 Status: stable, progressing Assessment/Plan o2 pulm tx abx pt diet cbc bmp am Subjective Allergies: Coded Allergies: No Known Allergies (Unverified , 08/14/18) All Systems: reviewed and negative except above Subjective o2nc sleepy calm Objective Last 24 Hour Vital Signs Date Time Temp Pulse Resp B/P (MAP) Pulse Ox O2 Delivery O2 Flow Rate FiO2 08/17/18 09:00 Room Air 08/17/18 08:17 134/84 08/17/18 08:00 98.8 93 17 134/84 (101) 93 08/17/18 04:00 97.8 91 18 116/80 (92) 97 08/17/18 00:00 97.1 92 16 138/88 (105) 96 08/16/18 22:06 143/73 08/16/18 21:00 Room Air 08/16/18 20:00 98.7 92 16 143/78 (99) 94 08/16/18 16:00 97.8 94 18 125/89 (101) 95 Intake and Output 08/16/18 08/17/18 19:00 07:00 Intake Total 960 ml 840 ml Balance 960 ml 840 ml Intake Free Water 300 ml 300 ml Tube Feeding 660 ml 540 ml # Voids 6 Laboratory Tests 08/17/18 08:30: White Blood Count 6.6, Red Blood Count 4.45L, Hemoglobin 13.4L, Hematocrit 41.7L , Mean Corpuscular Volume 94, Mean Corpuscular Hemoglobin 30.1, Mean Corpuscular Hemoglobin Concent 32.2, Red Cell Distribution Width 11.7, Platelet Count 288, Mean Platelet Volume 8.4, Neutrophils (%) (Auto) 77.4H, Lymphocytes ( %) (Auto) 15.4L, Monocytes (%) (Auto) 4.9, Eosinophils (%) (Auto) 1.3, Basophils (%) (Auto) 1.0, Sodium Level 147H, Potassium Level 3.7, Chloride Level 111H, Carbon Dioxide Level 28, Anion Gap 8, Blood Urea Nitrogen 20H, Creatinine 0.7, Estimat Glomerular Filtration Rate > 60, Glucose Level 148H, Calcium Level 8.5 Height (Feet): 5 Height (Inches): 5.00 Weight (Pounds): 114 General Appearance: lethargic EENT: normal ENT inspection Neck: normal alignment Cardiovascular: normal peripheral pulses, normal rate, regular rhythm Respiratory/Chest: chest wall non-tender, lungs clear, normal breath sounds Abdomen: normal bowel sounds, non tender, soft Extremities: normal inspection Edema: no edema noted Arm (L), no edema noted Arm (R), no edema noted Leg (L), no edema noted Leg (R), no edema noted Pedal (L), no edema noted Pedal (R), no edema noted Generalized Neurologic: motor weakness Skin: normal pigmentation, warm/dry Jasmeet Reynoso DO Aug 17, 2018 13:26
[2018-08-17 16:00] VITALS: BP 129/80
--- NOTE | 2018-08-17 19:53 | NUR ---
NURSE NOTES: Patient pulled out IV access, and refused to have IV resited, after several attempts. Endorsed to night nurse. Left message to dr. Reynoso and dr. Wei Kendrick regarding no IV site for antibiotic IVPB.
--- NOTE | 2018-08-17 21:09 | NUR ---
NURSE NOTES: recdv pt. Pt is nonverbal and bedbound. GT running Glucerna 1.2 @ 60cc/hr with minimal residual. NO IV access, Day shift RN left message for Awaiting callback
--- NOTE | 2018-08-17 21:18 | NUR ---
NURSE NOTES: Pt is refusing all meds and all care. Unable to do blood sugar checks and unable to take vital signs
--- NOTE | 2018-08-17 22:28 | General Progress Note ---
Assessment/Plan Assessment/Plan (1) Dysphagia, G tube feedings ICD Codes: Z93.1 - Gastrostomy status SNOMED: 776943735, 301973199 (2) Pneumonia ICD Codes: J18.9 - Pneumonia, unspecified organism SNOMED: 820732714 (3) Hypernatremia ICD Codes: E87.0 - Hyperosmolality and hypernatremia SNOMED: 03233842 (4) Dehydration ICD Codes: E86.0 - Dehydration SNOMED: 43344197 Assessment/Plan tolerating GTF GT care and flush fu labs abx per ID Subjective Allergies: Coded Allergies: No Known Allergies (Unverified , 08/14/18) Subjective Above noted awake, but non communicative tolerating TF Objective Last 24 Hour Vital Signs Date Time Temp Pulse Resp B/P (MAP) Pulse Ox O2 Delivery O2 Flow Rate FiO2 08/17/18 16:00 98.8 74 17 129/80 (96) 98 08/17/18 12:00 97.7 79 17 127/82 (97) 95 08/17/18 09:00 Room Air 08/17/18 08:17 134/84 08/17/18 08:00 98.8 93 17 134/84 (101) 93 08/17/18 04:00 97.8 91 18 116/80 (92) 97 08/17/18 00:00 97.1 92 16 138/88 (105) 96 Intake and Output 08/16/18 08/17/18 19:00 07:00 Intake Total 1020 ml 900 ml Balance 1020 ml 900 ml Intake Free Water 300 ml 300 ml Tube Feeding 720 ml 600 ml # Voids 6 Laboratory Tests 08/17/18 08:30: White Blood Count 6.6, Red Blood Count 4.45L, Hemoglobin 13.4L, Hematocrit 41.7L , Mean Corpuscular Volume 94, Mean Corpuscular Hemoglobin 30.1, Mean Corpuscular Hemoglobin Concent 32.2, Red Cell Distribution Width 11.7, Platelet Count 288, Mean Platelet Volume 8.4, Neutrophils (%) (Auto) 77.4H, Lymphocytes ( %) (Auto) 15.4L, Monocytes (%) (Auto) 4.9, Eosinophils (%) (Auto) 1.3, Basophils (%) (Auto) 1.0, Sodium Level 147H, Potassium Level 3.7, Chloride Level 111H, Carbon Dioxide Level 28, Anion Gap 8, Blood Urea Nitrogen 20H, Creatinine 0.7, Estimat Glomerular Filtration Rate > 60, Glucose Level 148H, Calcium Level 8.5 Height (Feet): 5 Height (Inches): 5.00 Weight (Pounds): 114 Objective Debilitated Man NCAT supple CTA RR Abd flat, (+) GT contracted Roman Tam MD Aug 17, 2018 22:28
[2018-08-18] VITALS: BP 129/64
[2018-08-18 04:00] VITALS: BP 123/83
[2018-08-18] MEDS: NovoLOG Insulin Flexpen SUBQ SCH ×3 (06:39→16:25)
--- NOTE | 2018-08-18 07:10 | NUR ---
HAND-OFF: Report given to Vernon NGUYEN.
[2018-08-18 07:56] VITALS: BP 135/86
[2018-08-18] MEDS: Docusate 100mg/10ml Liq GT SCH ×3 (08:14→17:10)
[2018-08-18] MEDS: Benazepril 10mg tab ORAL SCH (08:14)
[2018-08-18] MEDS: Aspirin Baby 81mg GT SCH (08:14)
[2018-08-18] MEDS: Milk of Magnesia 30ml Ud GT SCH (08:14)
[2018-08-18] MEDS: Cefepime HCl 1 GM in D5W 55 ML IVPB SCH (09:00)
--- NOTE | 2018-08-18 09:09 | NUR ---
NURSE NOTES: pt awake alert, gt patent and intact, no residual, mostly nonverbal but withdraws when rn flushed gt, pt refusing iv access. Addendum: 08/18/18 at 0910 by RILEY TELLEZ RN hob elevated >30 degrees. call light with the pt.
--- NOTE | 2018-08-18 09:41 | NUR ---
DISCHARGE PLANNED PATIENT DISCHARGED BACK TO: [facility] ROOM#18-C [facility] HOME T:[phone] FOR NURSE TO NURSE REPORT [facility] HAS BEEN ARRANGED FOR [facility] [employer] [address] [id number]
[2018-08-18 09:49] LABS: BASOPHILS % (AUTO) 0.7 % (0.0-2.0); EOSINOPHILS % (AUTO) 1.8 % (0.0-3.0); HEMATOCRIT 44.8 % (42.0-52.0); HEMOGLOBIN 14.5 G/DL (14.2-18.0); LYMPHOCYTES % (AUTO) 14.2 % (20.0-45.0); MEAN CORPUSCULAR VOLUME 93 FL (80-99); NEUTROPHILS % (AUTO) 78.2 % (45.0-75.0); PLATELET COUNT 297 K/UL (150-450); RED BLOOD COUNT 4.84 M/UL (4.70-6.10); RED CELL DISTRIBUTION WIDTH 11.9 % (11.6-14.8); WHITE BLOOD COUNT 7.4 K/UL (4.8-10.8)
--- NOTE | 2018-08-18 10:04 | NUR ---
NURSE NOTES: paged Dr Reynoso (spoke w Neela in office) , re dc order and which home med recon, awaiting call back
[2018-08-18 10:09] LABS: ANION GAP 8 mmol/L (5-15); BLOOD UREA NITROGEN 20 mg/dL (7-18); CALCIUM 8.9 MG/DL (8.5-10.1); CARBON DIOXIDE 29 MMOL/L (21-32); CHLORIDE 108 MMOL/L (98-107); CREATININE 0.8 MG/DL (0.55-1.30); SODIUM 145 MMOL/L (136-145)
[2018-08-18] MEDS ORDERED: LEVAQUIN750 MG ORAL (10:12)
--- NOTE | 2018-08-18 10:30 | NUR ---
NURSE NOTES: attempted to give report to hayley but said tyler will call me back for report. no contact on facesheet Addendum: 08/18/18 at 1052 by RILEY TELLEZ RN report given to Hanna gardner of [facility] conv
[2018-08-18 12:56] VITALS: BP 121/68
--- NOTE | 2018-08-18 13:48 | Pulmonology Progress Note ---
Assessment/Plan Problems: (1) ATN (acute tubular necrosis) (2) G tube feedings (3) Healthcare associated bacterial pneumonia (4) Sepsis (5) Protein-calorie malnutrition, severe (6) Hypernatremia Assessment/Plan doing better iv abx check electrolytes iv fluids cxr in 1-2 days electrolytes dvt prophylaxis Subjective ROS Limited/Unobtainable: No Constitutional: Reports: no symptoms HEENT: Repors: no symptoms Allergies: Coded Allergies: No Known Allergies (Unverified , 08/14/18) Objective Last 24 Hour Vital Signs Date Time Temp Pulse Resp B/P (MAP) Pulse Ox O2 Delivery O2 Flow Rate FiO2 08/18/18 12:56 98.3 85 16 121/68 (85) 94 08/18/18 08:59 Room Air 08/18/18 08:14 135/86 08/18/18 07:56 97.6 92 16 135/86 (102) 94 08/18/18 04:00 97.6 91 16 123/83 (96) 94 08/18/18 00:00 97.2 82 18 129/64 (85) 94 08/17/18 21:00 Room Air 08/17/18 16:00 98.8 74 17 129/80 (96) 98 Intake and Output 08/17/18 08/18/18 19:00 07:00 Intake Total 745 ml Balance 745 ml Intake Free Water 150 ml IV Total 55 ml Tube Feeding 540 ml # Voids 3 # Bowel Movements 2 General Appearance: WD/WN HEENT: normocephalic Respiratory/Chest: chest wall non-tender, lungs clear, normal breath sounds Cardiovascular: normal peripheral pulses, normal rate Abdomen: normal bowel sounds, soft, non tender Genitourinary: normal external genitalia Skin: no rash Laboratory Tests 08/18/18 09:30: White Blood Count 7.4, Red Blood Count 4.84, Hemoglobin 14.5, Hematocrit 44.8, Mean Corpuscular Volume 93, Mean Corpuscular Hemoglobin 30.0, Mean Corpuscular Hemoglobin Concent 32.4, Red Cell Distribution Width 11.9, Platelet Count 297, Mean Platelet Volume 8.5, Neutrophils (%) (Auto) 78.2H, Lymphocytes (%) (Auto) 14.2L, Monocytes (%) (Auto) 5.0, Eosinophils (%) (Auto) 1.8, Basophils (%) (Auto ) 0.7, Sodium Level 145, Potassium Level 4.0, Chloride Level 108H, Carbon Dioxide Level 29, Anion Gap 8, Blood Urea Nitrogen 20H, Creatinine 0.8, Estimat Glomerular Filtration Rate > 60, Glucose Level 186H, Calcium Level 8.9 Current Medications Medications (Trade) Dose Ordered Sig/Julito Route PRN Reason Start Time Stop Time Status Last Admin Dose Admin Acetaminophen (Tylenol) 500 mg Q4H PRN ORAL Mild Pain/Temp > 100.5 08/15/18 02:00 09/14/18 01:59 Aspirin (ASA) 81 mg DAILY GT 08/16/18 09:00 09/15/18 08:59 08/18/18 08:14 Benazepril HCl (Lotensin) 20 mg Q12HR ORAL 08/16/18 09:00 09/15/18 08:59 08/18/18 08:14 Cefepime HCl 1 gm/ Dextrose 55 ml @ 110 mls/hr EVERY 12 HOURS IVPB 08/15/18 09:00 08/22/18 08:59 08/17/18 08:22 Dextrose (Dextrose 50%) 25 ml Q30M PRN IV Hypoglycemia 08/15/18 11:30 09/14/18 11:29 Dextrose (Dextrose 50%) 50 ml Q30M PRN IV Hypoglycemia 08/15/18 11:30 09/14/18 11:29 Docusate Sodium (Colace) 100 mg THREE TIMES A DAY GT 08/16/18 09:00 09/15/18 08:59 08/18/18 13:15 Doxycycline Monohydrate (Vibramycin) 100 mg EVERY 12 HOURS ORAL 08/15/18 11:15 08/22/18 11:14 08/18/18 08:14 Insulin Aspart (NovoLOG) BEFORE MEALS AND HS SUBQ 08/15/18 11:30 09/14/18 11:29 08/18/18 11:28 Magnesium Hydroxide (Mom) 30 ml DAILY GT 08/16/18 09:00 09/15/18 08:59 08/18/18 08:14 Risperidone (RisperDAL) 0.25 mg DAILY ORAL 08/16/18 09:00 09/15/18 08:59 08/18/18 08:14 Po Li MD Aug 18, 2018 13:48
--- NOTE | 2018-08-18 14:55 | Infectious Diseases Prog Note ---
Assessment/Plan Assessment/Plan A; Pneumonia DM HPN Schizophrenia Hypernatremia Acidosis P; Agree with discharge with Levaquin 750 mg by GT X 5 days Subjective ROS Limited/Unobtainable: Yes Constitutional: Reports: no symptoms Allergies: Coded Allergies: No Known Allergies (Unverified , 08/14/18) Objective Vital Signs Last 24 Hour Vital Signs Date Time Temp Pulse Resp B/P (MAP) Pulse Ox O2 Delivery O2 Flow Rate FiO2 08/18/18 12:56 98.3 85 16 121/68 (85) 94 08/18/18 08:59 Room Air 08/18/18 08:14 135/86 08/18/18 07:56 97.6 92 16 135/86 (102) 94 08/18/18 04:00 97.6 91 16 123/83 (96) 94 08/18/18 00:00 97.2 82 18 129/64 (85) 94 08/17/18 21:00 Room Air 08/17/18 16:00 98.8 74 17 129/80 (96) 98 Height (Feet): 5 Height (Inches): 5.00 Weight (Pounds): 114 General Appearance: no acute distress HEENT: mucous membranes moist Respiratory/Chest: lungs clear Cardiovascular: normal rate, other - GT feeding Extremities: no edema Neurologic/Psychiatric: alert Laboratory Tests Test 08/18/18 09:30 White Blood Count 7.4 K/UL (4.8-10.8) Red Blood Count 4.84 M/UL (4.70-6.10) Hemoglobin 14.5 G/DL (14.2-18.0) Hematocrit 44.8 % (42.0-52.0) Mean Corpuscular Volume 93 FL (80-99) Mean Corpuscular Hemoglobin 30.0 PG (27.0-31.0) Mean Corpuscular Hemoglobin Concent 32.4 G/DL (32.0-36.0) Red Cell Distribution Width 11.9 % (11.6-14.8) Platelet Count 297 K/UL (150-450) Mean Platelet Volume 8.5 FL (6.5-10.1) Neutrophils (%) (Auto) 78.2 % (45.0-75.0) H Lymphocytes (%) (Auto) 14.2 % (20.0-45.0) L Monocytes (%) (Auto) 5.0 % (1.0-10.0) Eosinophils (%) (Auto) 1.8 % (0.0-3.0) Basophils (%) (Auto) 0.7 % (0.0-2.0) Sodium Level 145 MMOL/L (136-145) Potassium Level 4.0 MMOL/L (3.5-5.1) Chloride Level 108 MMOL/L (98-107) H Carbon Dioxide Level 29 MMOL/L (21-32) Anion Gap 8 mmol/L (5-15) Blood Urea Nitrogen 20 mg/dL (7-18) H Creatinine 0.8 MG/DL (0.55-1.30) Estimat Glomerular Filtration Rate > 60 mL/min (>60) Glucose Level 186 MG/DL (74-106) H Calcium Level 8.9 MG/DL (8.5-10.1) Current Medications Medications (Trade) Dose Ordered Sig/Julito Route PRN Reason Start Time Stop Time Status Last Admin Dose Admin Acetaminophen (Tylenol) 500 mg Q4H PRN ORAL Mild Pain/Temp > 100.5 08/15/18 02:00 09/14/18 01:59 Aspirin (ASA) 81 mg DAILY GT 08/16/18 09:00 09/15/18 08:59 08/18/18 08:14 Benazepril HCl (Lotensin) 20 mg Q12HR ORAL 08/16/18 09:00 09/15/18 08:59 08/18/18 08:14 Cefepime HCl 1 gm/ Dextrose 55 ml @ 110 mls/hr EVERY 12 HOURS IVPB 08/15/18 09:00 08/22/18 08:59 08/17/18 08:22 Dextrose (Dextrose 50%) 25 ml Q30M PRN IV Hypoglycemia 08/15/18 11:30 09/14/18 11:29 Dextrose (Dextrose 50%) 50 ml Q30M PRN IV Hypoglycemia 08/15/18 11:30 09/14/18 11:29 Docusate Sodium (Colace) 100 mg THREE TIMES A DAY GT 08/16/18 09:00 09/15/18 08:59 08/18/18 13:15 Doxycycline Monohydrate (Vibramycin) 100 mg EVERY 12 HOURS ORAL 08/15/18 11:15 08/22/18 11:14 08/18/18 08:14 Insulin Aspart (NovoLOG) BEFORE MEALS AND HS SUBQ 08/15/18 11:30 09/14/18 11:29 08/18/18 11:28 Magnesium Hydroxide (Mom) 30 ml DAILY GT 08/16/18 09:00 09/15/18 08:59 08/18/18 08:14 Risperidone (RisperDAL) 0.25 mg DAILY ORAL 08/16/18 09:00 09/15/18 08:59 08/18/18 08:14 Bal Kendrick MD Aug 18, 2018 14:55
--- NOTE | 2018-08-18 15:19 | General Progress Note ---
Assessment/Plan Problem List: (1) Sepsis ICD Codes: A41.9 - Sepsis, unspecified organism SNOMED: 56607814 Qualifiers: Qualified Codes: A41.9 - Sepsis, unspecified organism (2) Healthcare associated bacterial pneumonia ICD Codes: J15.9 - Unspecified bacterial pneumonia SNOMED: 844365239 (3) Dehydration ICD Codes: E86.0 - Dehydration SNOMED: 07211907 (4) Pneumonia ICD Codes: J18.9 - Pneumonia, unspecified organism SNOMED: 753514565 (5) G tube feedings ICD Codes: Z93.1 - Gastrostomy status SNOMED: 586308122, 704812425 (6) Hypernatremia ICD Codes: E87.0 - Hyperosmolality and hypernatremia SNOMED: 47219315 Status: stable, progressing Assessment/Plan o2 pulm tx abx pt diet dc if clear Subjective Constitutional: Reports: weakness Allergies: Coded Allergies: No Known Allergies (Unverified , 08/14/18) All Systems: reviewed and negative except above Subjective o2nc sleepy calm Objective Last 24 Hour Vital Signs Date Time Temp Pulse Resp B/P (MAP) Pulse Ox O2 Delivery O2 Flow Rate FiO2 08/18/18 12:56 98.3 85 16 121/68 (85) 94 08/18/18 08:59 Room Air 08/18/18 08:14 135/86 08/18/18 07:56 97.6 92 16 135/86 (102) 94 08/18/18 04:00 97.6 91 16 123/83 (96) 94 08/18/18 00:00 97.2 82 18 129/64 (85) 94 08/17/18 21:00 Room Air 08/17/18 16:00 98.8 74 17 129/80 (96) 98 Intake and Output 08/17/18 08/18/18 19:00 07:00 Intake Total 745 ml 60 ml Balance 745 ml 60 ml Intake Free Water 150 ml IV Total 55 ml Tube Feeding 540 ml 60 ml # Voids 3 # Bowel Movements 2 Laboratory Tests 08/18/18 09:30: White Blood Count 7.4, Red Blood Count 4.84, Hemoglobin 14.5, Hematocrit 44.8, Mean Corpuscular Volume 93, Mean Corpuscular Hemoglobin 30.0, Mean Corpuscular Hemoglobin Concent 32.4, Red Cell Distribution Width 11.9, Platelet Count 297, Mean Platelet Volume 8.5, Neutrophils (%) (Auto) 78.2H, Lymphocytes (%) (Auto) 14.2L, Monocytes (%) (Auto) 5.0, Eosinophils (%) (Auto) 1.8, Basophils (%) (Auto ) 0.7, Sodium Level 145, Potassium Level 4.0, Chloride Level 108H, Carbon Dioxide Level 29, Anion Gap 8, Blood Urea Nitrogen 20H, Creatinine 0.8, Estimat Glomerular Filtration Rate > 60, Glucose Level 186H, Calcium Level 8.9 Height (Feet): 5 Height (Inches): 5.00 Weight (Pounds): 114 General Appearance: lethargic EENT: normal ENT inspection Neck: normal alignment Cardiovascular: normal peripheral pulses, normal rate, regular rhythm Respiratory/Chest: chest wall non-tender, lungs clear, normal breath sounds Abdomen: normal bowel sounds, non tender, soft Extremities: normal inspection Edema: no edema noted Arm (L), no edema noted Arm (R), no edema noted Leg (L), no edema noted Leg (R), no edema noted Pedal (L), no edema noted Pedal (R), no edema noted Generalized Neurologic: motor weakness Skin: normal pigmentation, warm/dry Jasmeet Reynoso DO Aug 18, 2018 15:19
[2018-08-18] MEDS ORDERED: NOVOLOG100 UNITS1 (15:23)
[2018-08-18 15:59] VITALS: BP 109/74
--- NOTE | 2018-08-18 20:00 | Consultation ---
DATE OF CONSULTATION: 08/18/2018 NOTE: "POOR AUDIO QUALITY" CONSULTING PHYSICIAN: Virgie Mcdermott M.D. REFERRING PHYSICIAN: Jasmeet Reynoso D.O. HISTORY OF PRESENT ILLNESS: The patient is a 62-year-old male patient with pneumonia. This patient continues to have some confusion and disorganized thought process. He has got some mood lability and decline in cognition below his baseline. This patient has pneumonia. He has some confusion. He has some disorganized thought process and decline in his cognition below his baseline. That is why, his attending has requested daily psychiatric consultation. The patient came in secondary to dehydration, sepsis, hypernatremia, so the patient was admitted to the hospital, but this patient also has overlying diagnosis of paranoid schizophrenia and that is why, daily psychiatric consultation has been requested and it was requested that this patient be seen by Psychiatry. The patient does have history of paranoid schizophrenia. very confused, disorganized, and mood labile. He still has some confusion. His cognition has declined below his baseline worsened by stress of his medical illness. That is why, his attending has requested daily psychiatric consultation. He also has a lot of psychomotor agitation and irritability. MEDICAL PROBLEMS: Hypernatremia, sepsis, dehydration, pneumonia, protein-calorie malnutrition. ALLERGIES: No known drug allergies. PSYCHOTROPIC MEDICATIONS: On admission, he was on Risperdal. He is currently on Risperdal dose of 0.25 mg daily. SUBSTANCE ABUSE HISTORY: Denies. PAIN ASSESSMENT: 0/10. DEVELOPMENTAL PROBLEMS: Denies. SOCIAL HISTORY: This patient is financially supported by [employer] and Medicare. He is currently living in [facility]. PSYCHIATRIC HISTORY: He has history of paranoid schizophrenia and multiple psychiatric admissions. He has history of paranoid schizophrenia with acute exacerbation. STRENGTHS: He is motivated to get better. He is healthy. WEAKNESSES: He is impulsive and has minimal support system. MENTAL STATUS EXAMINATION: This is a 62-year-old male. Appearance is disheveled. Attitude, irritable and agitated. Affect, guarded and restricted. Intellect poor. Mood, depressed and anxious. Motor activity, psychomotor agitation. Attention span is poor. Orientation x2. Speech is pressured. Thought process, disorganized and illogical. Thought content, auditory hallucinations and paranoid delusions. Insight and judgment is poor. DIAGNOSIS: Paranoid schizophrenia with acute exacerbation. PLAN: To treat him with a psychotropic medication regimen consisting of Risperdal 0.25 mg twice a day. Provided him 20 minutes of cognitive behavioral therapy to help him identify his automatic negative thoughts and help him convert those negative thoughts to more positive thoughts to reduce depression, anxiety, and suicidality. Twenty minutes of cognitive behavioral therapy provided to help him identify his automatic negative thoughts and help him convert those negative thoughts to more positive thoughts to prevent any further decline in his cognition. Seen and assessed at bedside. The patient continues to be followed by Psychiatry to help with mood stabilization and behavioral management to prevent any further decline in his cognition. Seen and assessed in his room. Chart reviewed. Discussed with staff. Twenty minutes of cognitive behavioral therapy provided. I would like to thank Dr. Jasmeet Reynoso for this interesting consultation. Virgie Mcdermott M.D. DR: Reggie JOB#: [id number] CC:
--- NOTE | 2018-08-19 14:14 | Discharge Summary ---
Discharge Summary Discharge Summary _ DATE OF ADMISSION: 08/14/2018 DATE OF DISCHARGE: 08/18/2018 DISCHARGED BY: Dr. Reynoso REASON FOR ADMISSION: 62 years old male with past medical history of hypertension, diabetes, COPD, GERD, dysphagia, G-tube feeding , functional quadriplegia, resident of custodial facility, presented with fever and shortness of breath. Vital signs revealed temperature 102. Patient was tachycardic with heart rate of 120. Blood pressure was 173/77. Pulse oximetry was 97% on 2 L of oxygen via nasal cannula Laboratory workup revealed leukocytosis WBC 15.3 with shift to the left.Lactic acid 3.2. Sodium 151. BUN 25, creatinine 1.1. Glucose 177. Troponin negative. EKG revealed sinus tachycardia , no acute ischemic changes. Albumin 3.3. Urinalysis revealed was positive for leukocyte esterase , no pyuria and only few bacteria. Chest x-ray revealed bibasilar reticular interstitial infiltrate. Patient admitted with diagnosis of of sepsis, healthcare associated pneumonia , dehydration hypernatremia. CONSULTANTS: pulmonary Dr. Li ID specialist Dr. Palacios GI specialist Dr. Horton psychiatrist Dr. Mcdermott [facility]: Patient admitted to medical surgical floor. Patient started on the IV hydration and broad-spectrum antibiotics. Supplemental oxygen provided as needed to keep oximetry above 92%. Pulmonary toilet provided. Psychiatry Instructor and infectious disease specialist closely followed. Blood cultures were negative. Leukocytosis and fever resolved. Antibiotic was changed via G-tube route prior to discharge to complete the course of treatment for additional 5 days at the custodial facility. Strict aspiration precautions were maintained. G-tube feeding continued. G-tube site care provided. Payroll Tax Analyst recommendation implemented in plan of care . Patient was able to tolerate tube feeding. Bowel regimen instituted. Renal parameters and electrolytes were closely monitored. Electrolytes corrected. Nephrotoxins were avoided. Prior to discharge sodium 145. BUN 20, creatinine 0.3. Antiplatelet therapy with aspirin continued. Blood pressure was managed with CIRA inhibitor and remained stable. Blood sugar was managed with sliding scale of insulin. Psychiatrist seen and evaluated patient, and diagnosed patient with paranoid schizophrenia with acute exacerbation. Psychotropic medication regimen was initiated. Patient stabilized and was ready for transfer back to custodial for continuation of care FINAL DIAGNOSES: Sepsis Healthcare associated pneumonia Dehydration Hypernatremia -resolved Paranoid schizophrenia with acute exacerbation Dysphagia , G-tube feeding Hypertension Severe protein calorie malnutrition Schizophrenia. DISCHARGE MEDICATIONS: See Medication Reconciliation list. DISCHARGE INSTRUCTIONS: Patient was discharged to the custodial facility. Follow up with medical doctor at the facility. I have been assigned to dictate discharge summary for this account. I was not involved in the patient's management. Heidi Kamara NP Aug 19, 2018 14:14
--- NOTE | 2018-08-20 02:45 | Consultation ---
DATE OF CONSULTATION: 08/18/2018 NOTE: POOR AUDIO PSYCHOTHERAPY CONSULTATION PROGRESS NOTE CONSULTING PHYSICIAN: Jacinto Ruiz PsyD. TREATING ATTENDING PHYSICIAN: . HISTORY OF PRESENT ILLNESS: This is a 62-year-old male patient who is from [facility]. The patient was brought into the hospital for sepsis, leukocytosis, elevated lactate, as well as pneumonia. The patient is very confused, disorganized, a very poor historian, at this time unable to provide a viable information. The patient has a history of schizophrenia as well. The patient has been very disorganized and confused. Most of the information is provided by the records. The patient is very disoriented. He has been unable to provide viable logical plans for self-care and safety. He does remain confused and disorganized at this time. The patient's mood has been fluctuating. There have been times when the patient has required redirection and reality orientation. PAST MEDICAL HISTORY: History of sepsis and hypernatremia as well as pneumonia. ALLERGIES: The patient has no known drug allergies. SUBSTANCE ABUSE HISTORY: There is no indication of alcohol use, illicit substance use, or smoking cigarettes. PSYCHIATRIC HISTORY: The patient has a history of paranoid schizophrenia and treated with psychotropic medications in the past. SOCIAL HISTORY: The patient is a single 62-year-old male patient from [facility]. Financially sustained through [facility]. MENTAL STATUS EXAMINATION: The patient is alert and oriented to person. Mood is irritable. Affect is congruent. Thought process is disorganized. Thought content, confused. The patient has poor attention and concentration. Poor insight, judgment, and impulse control. DIAGNOSIS: Paranoid schizophrenia. This clinician assessed this patient. Provided the patient with reality orientation and cognitive function. The patient is confused and disoriented. Oriented to person, place, time, and situation. Also provided the patient with supportive psychotherapy . Continue with behavioral management. This clinician has reviewed the patient's chart. Discussed treatment with treatment team. Jacinto Ruiz PsyD. DR: Tessa JOB#: [id number] CC:
== END 2018-08-18 17:40 | DRG 871 ==
LOC: EDBD 22:18 → EMR 22:34 → EDBEDREQ 23:20 → 4E 23:45 → EDBEDREQ 08-15 00:08
DX: A41.9 Sepsis, unspecified organism (principal); J18.9 Pneumonia, unspecified organism; E43 Unspecified severe protein-calorie malnutrition; R53.2 Functional quadriplegia; E87.0 Hyperosmolality and hypernatremia; F20.0 Paranoid schizophrenia; Z43.1 Encounter for attention to gastrostomy; Z68.1 Body mass index [BMI] 19.9 or less, adult; Y95 Nosocomial condition; I10 Essential (primary) hypertension; E11.9 Type 2 diabetes mellitus without complications; J44.9 Chronic obstructive pulmonary disease, unspecified; K21.9 Gastro-esophageal reflux disease without esophagitis; E86.0 Dehydration; R13.10 Dysphagia, unspecified; Z79.84 Long term (current) use of oral hypoglycemic drugs; Z79.82 Long term (current) use of aspirin
CPT/HCPCS: 36415; 51702; 71045; 80048; 80053; 81003; 82550; 82553; 82962; 83605; 84484; 85007; 85025; 86713; 86738; 87040; 87081; 93005; 96361; 96365; 96367; 99291; J1815

== ENCOUNTER 2018-09-07 11:54 | Inpatient (IN) | payer MEDICARE, MEDICAID ==
[~2018-09-07] VITALS: Ht 165.1 cm; Wt 81.2 kg
[2018-09-07] VITALS (15 sets, daily range): BP systolic 59–127; BP diastolic 33–87
[~2018-09-07 11:54] MED LIST: ACETAMINOPHEN120 MG GT; ASPIR 8181 MG GT; BENAZEPRIL HCL20 MG GT; CALCIUM CITRAT480 GM GT; DOCUSATE SODIU100 MG ORAL; FERROUS SU15 MG/1 M1 GT; LEVAQUIN500 MG ORAL; LEVAQUIN750 MG ORAL; METFORMIN HCL500 M1 ORAL; MILK OF MA400 MG/51 ORAL; NOVOLOG100 UNITS1; PRILOSEC OTC20 MG GT; RISPERDAL0.25 MG ORAL
[2018-09-07] MEDS ORDERED: Lidocaine 1% Plain 30 ml INJ ONE (12:45)
[2018-09-07] MEDS ORDERED: Heparin 2000 units/Ns 1000ml INJ ONE (12:45)
[2018-09-07 13:47] LABS: HEMOGLOBIN 11.5 G/DL (14.2-18.0); MEAN CORPUSCULAR VOLUME 97 FL (80-99); PLATELET COUNT 183 K/UL (150-450); RED BLOOD COUNT 3.82 M/UL (4.70-6.10); RED CELL DISTRIBUTION WIDTH 14.1 % (11.6-14.8); WHITE BLOOD COUNT 10.7 K/UL (4.8-10.8)
--- NOTE | 2018-09-07 14:21 | Diagnostic Imaging Report ---
Indication: Shortness of breath Technique: One view of the chest Comparison: 08/14/2018 Findings: Inspiration is suboptimal. There is some atelectasis at the both lung bases, left greater than right. There is questionably some retrocardiac consolidation. Pleural spaces are clear. The heart size is normal. Impression: Hypoventilatory exam with basilar atelectatic changes Possible retrocardiac consolidation. Correlate with clinical findings
[2018-09-07 14:31] LABS: BLOOD UREA NITROGEN 63 mg/dL (7-18); CALCIUM 7.9 MG/DL (8.5-10.1); CHLORIDE 111 MMOL/L (98-107); CREATININE 4.8 MG/DL (0.55-1.30); POTASSIUM 8.4 MMOL/L (3.5-5.1); SODIUM 145 MMOL/L (136-145)
[2018-09-07 14:37] LABS: ALANINE AMINOTRANSFERASE 47 U/L (12-78); BILIRUBIN,TOTAL 0.5 MG/DL (0.2-1.0); CREATINE KINASE 557 U/L (26-140)
[2018-09-07 14:38] LABS: ALBUMIN 1.7 G/DL (3.4-5.0); ALKALINE PHOSPHATASE 51 U/L (46-116); CKMB 0.7 NG/ML (0.0-3.6)
--- NOTE | 2018-09-07 14:40 | Diagnostic Imaging Report ---
Indications: Altered level of consciousness Technique: Spiral acquisitions obtained through the brain. Angled axial and coronal 5 x 5 mm slices were reconstructed. Total dose length product 1410.82 mGycm. CTDI vol(s) 70.38 mGy. Dose reduction achieved using automated exposure control Comparison: None. Findings: There is mild age-related enlargement of ventricles and extra axial CSF spaces. There is mild periventricular deep white matter low-attenuation, consistent with chronic ischemic change. Normal gilliam-white differentiation. No acute intracranial hemorrhage or edema. No mass effect nor midline shift. Intact calvarium. There is minimal ethmoid sinus mucosal thickening. The mastoids are clear. The orbits are unremarkable Impression: Chronic and age-related changes Negative for acute intracranial bleed or mass effect The CT scanner at [facility] is accredited by the [employer] and the scans are performed using protocols designed to limit radiation exposure to as low as reasonably achievable to attain images of sufficient resolution adequate for diagnostic evaluation.
[2018-09-07 14:54] LABS: ASPARTATE AMINO TRANSFERASE 46 U/L (15-37); CARBON DIOXIDE 7 MMOL/L (21-32)
[2018-09-07] MEDS ORDERED: Sodium Polystyrene Sulfonate Enema RECTAL ONE ×2 (15:00→17:13)
[2018-09-07] MEDS ORDERED: Calcium Gluconate 10% 1 GM in NS 110 ML IVPB ONE (15:00)
[2018-09-07] MEDS ORDERED: Insulin Human Regular 100units/ml 3ml IV ONE (15:00)
--- NOTE | 2018-09-07 15:09 | Emergency Room Report ---
History of Present Illness General Chief Complaint: Altered Level of Consciousness Source: Patient Present Illness HPI Patient presents from a half-way facility. He presents for altered mental status. Apparently the patient is not his normal self. The patient has a history of diabetes, dysphagia with G-tube, schizophrenia, generalized weakness and failure to thrive. Per report he is not in his normal mentation. There are no other complaints. There is no other history available. Allergies: Coded Allergies: No Known Allergies (Unverified , 08/14/18) Patient History Past Medical History: see triage record, DM, HTN, GERD Past Surgical History: other - G-tube Social History: Denies: smoking, alcohol use, drug use Reviewed Nursing Documentation: PMH: Agreed; PSxH: Agreed Nursing Documentation-PMH Past Medical History: No History, Except For Hx Hypertension: Yes Hx Diabetes: Yes Hx Gastrointestinal Problems: Yes - gerd Hx Neurological Problems: Yes - functional quadriplegia Review of Systems All Other Systems: limited Physical Exam Vital Signs Date Time Temp Pulse Resp B/P (MAP) Pulse Ox O2 Delivery O2 Flow Rate FiO2 09/07/18 11:51 103.1 140 30 119/62 94 Nasal Cannula 2.0 Sp02 EP Interpretation: reviewed, normal General Appearance: other - localizes to pain. , Chronically Ill Head: normocephalic, atraumatic Eyes: bilateral eye normal inspection, bilateral eye PERRL ENT: no angioedema, dry mucus membranes Neck: normal inspection, full range of motion, supple/symm/no masses Respiratory: chest non-tender, lungs clear, normal breath sounds, no respiratory distress, no retraction, no accessory muscle use, speaking full sentences, other - tachypnea Cardiovascular #1: no edema, tachycardia Gastrointestinal: normal bowel sounds, non tender, soft, non-distended, no guarding, no rebound Rectal: deferred Musculoskeletal: normal inspection, normal range of motion, non-tender Neurologic: responsive, other - Non-focal. 5/5 muscle strength. Moving legs and grabbing at groin during central line. Psychiatric: other - unable to assess Skin: normal color, warm/dry, well hydrated, other - See RN skin exam Procedures Central Line Central Line : Consent: Emergent Central Line Lumen: triple Maximal Sterile Barrier Tech: yes cap, yes mask, yes sterile gown, yes sterile gloves, yes large sterile sheet, yes hand hygiene, yes chlorhexidine prep Central Line Postion: femoral (R) Anesthesia: Lidocaine cc's of anesthesia: 5 Complications: none Central Line Post Position: sutured, good blood return Attempts: One Patient Tolerated: Well Complications: None Medical Decision Making Diagnostic Impression: Primary Impression: Septic shock Additional Impressions: Fever Renal failure Lactic acid acidosis Metabolic acidosis Hyperkalemia ER Course This patient is septic shock. He had a temp of 103 and was tachycardic and hypotensive. He is also in renal failure with hyperkalemia. He was given aggressive IV fluids. He was given broad-spectrum antibiotics. He was also given calcium, insulin, glucose and albuterol for his hyperkalemia. Central line was placed secondary to his hypotension. I did not intubate this patient as he was maintaining his oxygen saturation at 100% while on nasal cannula. The patient was also tachypneic as I feel that this was a respiratory compensation for his severe metabolic acidosis and I felt that intubating this patient could be detrimental to him as he would not have a respiratory compensation. He maintained his blood pressure systolic in the mid 80s. In the emergency department I did not have to start pressors. He is admitted to the ICU. This patient is critically ill. This patient required complex medical decision- making, aggressive intervention, extensive laboratory workup and monitoring. Critical care time: 40 minutes. Laboratory Tests Test 09/07/18 13:20 09/07/18 13:45 09/07/18 15:05 White Blood Count 10.7 K/UL (4.8-10.8) Red Blood Count 3.82 M/UL (4.70-6.10) L Hemoglobin 11.5 G/DL (14.2-18.0) L Hematocrit 37.0 % (42.0-52.0) L Mean Corpuscular Volume 97 FL (80-99) Mean Corpuscular Hemoglobin 30.1 PG (27.0-31.0) Mean Corpuscular Hemoglobin Concent 31.0 G/DL (32.0-36.0) L Red Cell Distribution Width 14.1 % (11.6-14.8) Platelet Count 183 K/UL (150-450) Mean Platelet Volume 9.3 FL (6.5-10.1) Neutrophils (%) (Auto) % (45.0-75.0) Lymphocytes (%) (Auto) % (20.0-45.0) Monocytes (%) (Auto) % (1.0-10.0) Eosinophils (%) (Auto) % (0.0-3.0) Basophils (%) (Auto) % (0.0-2.0) Differential Total Cells Counted 100 Neutrophils % (Manual) 89 % (45-75) H Lymphocytes % (Manual) 7 % (20-45) L Monocytes % (Manual) 4 % (1-10) Eosinophils % (Manual) 0 % (0-3) Basophils % (Manual) 0 % (0-2) Band Neutrophils 0 % (0-8) Platelet Estimate Adequate Platelet Morphology Normal Red Blood Cell Morphology Normal Sodium Level 145 MMOL/L (136-145) Pending Potassium Level 8.4 MMOL/L (3.5-5.1) *H Pending Chloride Level 111 MMOL/L (98-107) H Pending Carbon Dioxide Level 7 MMOL/L (21-32) *L Pending Blood Urea Nitrogen 63 mg/dL (7-18) H Pending Creatinine 4.8 MG/DL (0.55-1.30) H Pending Estimate Glomerular Filtration Rate 12.5 mL/min (>60) Pending Glucose Level 132 MG/DL (74-106) H Pending Lactic Acid Level 13.60 mmol/L (0.4-2.0) H Pending Calcium Level 7.9 MG/DL (8.5-10.1) L Pending Phosphorus Level 6.0 MG/DL (2.5-4.9) H Magnesium Level 3.8 MG/DL (1.5-2.4) H Total Bilirubin 0.5 MG/DL (0.2-1.0) Pending Aspartate Amino Transferase (AST) 46 U/L (15-37) H Pending Alanine Aminotransferase (ALT) 47 U/L (12-78) Pending Alkaline Phosphatase 51 U/L (46-116) Pending Total Creatine Kinase 557 U/L (26-140) H Pending Creatine Kinase MB 0.7 NG/ML (0.0-3.6) Creatine Kinase MB Relative Index 0.1 Troponin I 0.124 ng/mL (0.000-0.056) Total Protein 4.9 G/DL (6.4-8.2) L Pending Albumin 1.7 G/DL (3.4-5.0) L Pending Globulin 3.2 g/dL Pending Arterial Blood pH 7.191 (7.350-7.450) Arterial Blood Partial Pressure CO2 21.8 mmHg (35.0-45.0) *L Arterial Blood Partial Pressure O2 92.4 mmHg (75.0-100.0) Arterial Blood HCO3 8.2 mmol/L (22.0-26.0) *L Arterial Blood Oxygen Saturation 94.1 % (95-100) L Arterial Blood Base Excess -18.1 (-2-2) *L Harvey Test Positive Uric Acid Pending Microbiology Date/Time Source Procedure Growth Status 09/07/18 13:36 Nasal Nares Influenza Types A,B Antigen (JIMY) - Final Complete EKG Diagnostic Results Rate: tachycardiac Rhythm: other - S.tachycardia ST Segments: other - NSST Rhythm Strip Diag. Results EP Interpretation: yes Rate: 140's Chest X-Ray Diagnostic Results Chest X-Ray Diagnostic Results : Chest X-Ray Ordered: Yes # of Views/Limited/Complete: 1 View Indication: Other - ams Interpretation: no consolidation, no effusion, no pneumothorax, no acute cardiopulmonary disease Impression: No acute disease Electronically Signed by: Aubrie Ashley DO Last Vital Signs Date Time Temp Pulse Resp B/P (MAP) Pulse Ox O2 Delivery O2 Flow Rate FiO2 09/07/18 11:51 103.1 140 30 119/62 94 Nasal Cannula 2.0 Disposition: ADMITTED INPATIENT Condition: Critical Referrals: Jasmeet Reynoso DO (PCP) Aubrie Ashley DO Sep 07, 2018 15:09
[2018-09-07] MEDS ORDERED: Miralax 17gm pkt ORAL PRN (15:15)
[2018-09-07] MEDS ORDERED: Calcium Gluconate 1gm/10ml vial IVP SCH (15:15)
[2018-09-07] MEDS ORDERED: Albuterol/Ipratropium 3ml neb HHN PRN (15:15)
[2018-09-07] MEDS ORDERED: Sodium Polystyrene Sulfonate 15gm Powder ORAL SCH (15:15)
[2018-09-07] MEDS ORDERED: Morphine Sulfate 4mg/ml Inj (IV USE ONLY) IVP PRN (15:15)
[2018-09-07] MEDS ORDERED: Cefepime HCl 1 GM in D5W 55 ML IVPB ONE (15:15)
--- NOTE | 2018-09-07 15:21 | Pulmonolgy Critical Care Note ---
Critical Care - Asmt/Plan Problems: (1) Septic shock (2) ATN (acute tubular necrosis) (3) Hyperkalemia (4) Metabolic acidosis Respiratory: monitor respiratory rate, adjust FIO2, CXR Cardiac: continue pressors, continue to monitor HR/BP Renal: F/U I&O, keep IV fluid, increase IV fluid Infectious Disease: check cultures, continue antibiotics Gastrointestinal: hold feedings Endocrine: monitor blood sugar Hematologic: transfuse if hgb<8.5 Neurologic: PRN Ativan, PRN Morphine, keep patient comfortable Affect: PRN ativan Prophylaxis: Heparin Notes Reviewed: peripheral vascular tech, cardio Discussed with: nurses, consultants, test case developercustomer project manager - Objective Last 24 Hour Vital Signs Date Time Temp Pulse Resp B/P (MAP) Pulse Ox O2 Delivery O2 Flow Rate FiO2 09/07/18 11:51 103.1 140 30 119/62 94 Nasal Cannula 2.0 Status: obtunded Condition: critical HEENT: atraumatic Heart: HR/BP stable Abdomen: soft, feeding tube Decubiti: location Micro: Microbiology Date/Time Source Procedure Growth Status 09/07/18 13:36 Nasal Nares Influenza Types A,B Antigen (JIMY) - Final Complete Accucheck: 117 Critical Care - Subjective ROS Limited/Unobtainable: Yes Interval Events: 62 year old male with hx of Dementia, schizophrenia, DM presented to ER He presents for altered mental status. He was altered. He was found to be in renal failure with K of 8. He received NS of 4 liters initially in ER without any urine output. Condition: critical Fluids: NS boluses 4 liters CXR: Po Hwang MD Sep 07, 2018 15:21
[2018-09-07] MEDS ORDERED: Acetaminophen 650 MG SUPP RECTAL ONE (15:30)
[2018-09-07 15:49] LABS: ALANINE AMINOTRANSFERASE 37 U/L (12-78); ALBUMIN 1.9 G/DL (3.4-5.0); ALBUMIN/GLOBULIN RATIO 0.6 (1.0-2.7); ALKALINE PHOSPHATASE 55 U/L (46-116); ANION GAP 23 mmol/L (5-15); ASPARTATE AMINO TRANSFERASE 67 U/L (15-37); BILIRUBIN,TOTAL 1.3 MG/DL (0.2-1.0); BLOOD UREA NITROGEN 62 mg/dL (7-18); CALCIUM 8.6 MG/DL (8.5-10.1); CARBON DIOXIDE 10 MMOL/L (21-32); CHLORIDE 109 MMOL/L (98-107); CREATININE 4.9 MG/DL (0.55-1.30); SODIUM 143 MMOL/L (136-145)
[2018-09-07] MEDS ORDERED: METFORMIN HCL500 M1 GT (15:50)
[2018-09-07 15:52] LABS: POTASSIUM 6.3 MMOL/L (3.5-5.1)
[2018-09-07 15:53] LABS: BILIRUBIN,DIRECT 0.2 MG/DL (0.0-0.3)
[2018-09-07 16:14] LABS: CREATINE KINASE 1095 U/L (26-308)
[2018-09-07] MEDS ORDERED: Dextrose 50% 25ml Syringe IV PRN (16:15)
[2018-09-07] MEDS ORDERED: LORazepam Inj 2mg/ml 1ml ONE (16:19)
[2018-09-07 16:26] LABS: APPEARANCE,URINE CLOUDY; BILIRUBIN, URINE 1+ (NEGATIVE); GLUCOSE, URINE (UA) 1+ (NEGATIVE); KETONES,URINE 1+ (NEGATIVE); LEUKOCYTE ESTERASE ,URINE 2+ (NEGATIVE); NITRITE,URINE POSITIVE (NEGATIVE); PH,URINE 5 (4.5-8.0); PROTEIN,URINE 4+ (NEGATIVE); UROBILINOGEN,URINE 1 MG/DL (0.0-1.0)
[2018-09-07 16:28] LABS: COLOR,URINE AMBER
[2018-09-07] MEDS ORDERED: Amikacin Rx to dose MISC PRN (16:30)
--- NOTE | 2018-09-07 16:42 | Emergency Room Report ---
History of Present Illness General Chief Complaint: Altered Level of Consciousness Source: Patient Present Illness Allergies: Coded Allergies: No Known Allergies (Unverified , 08/14/18) Nursing Documentation-[facility] Past Medical History: No History, Except For Hx Hypertension: Yes Hx Diabetes: Yes Hx Gastrointestinal Problems: Yes - gerd Hx Neurological Problems: Yes - functional quadriplegia Physical Exam Vital Signs Date Time Temp Pulse Resp B/P (MAP) Pulse Ox O2 Delivery O2 Flow Rate FiO2 09/07/18 11:51 103.1 140 30 119/62 94 Nasal Cannula 2.0 09/07/18 15:49 100 Procedures Central Line Central Line : Consent: Emergent Central Line Lumen: triple Maximal Sterile Barrier Tech: yes cap, yes mask, yes sterile gown, yes sterile gloves, yes large sterile sheet, yes hand hygiene, yes chlorhexidine prep Central Line Postion: femoral (L) Anesthesia: Lidocaine Complications: none Central Line Post Position: sutured, good blood return Attempts: One Patient Tolerated: Well Complications: None Medical Decision Making Diagnostic Impression: Primary Impression: Septic shock Additional Impressions: Fever Lactic acid acidosis Renal failure Metabolic acidosis Hyperkalemia ER Course Patient pulled out central line placed a right femoral by Dr. Cruz. Patient had been restrained but was able to pull the line. Blood pressure remains low. I gave patient Ativan. I placed left femoral central line using sterile technique. Restraints reinforced. Levophed started Last Vital Signs Date Time Temp Pulse Resp B/P (MAP) Pulse Ox O2 Delivery O2 Flow Rate FiO2 09/07/18 15:49 131 53 Nasal Cannula 4.0 100 09/07/18 15:49 103.1 87/33 100 Status: improved Disposition: ADMITTED INPATIENT Condition: Critical Referrals: Jasmeet Reynoso DO (PCP) Michael Cristobal MD Sep 07, 2018 16:42
[2018-09-07] MEDS ORDERED: LORazepam Inj 2mg/ml 1ml IV ONE (16:45)
[2018-09-07] MEDS ORDERED: Levophed 4mg/4mL Inj IV ONE (16:47)
[2018-09-07] MEDS ORDERED: Insulin Human Regular 100units/ml 3ml IV SCH (17:00)
--- NOTE | 2018-09-07 17:14 | Consultation ---
Consult Note Consult Note seen for high K and renal failure Patient presents from a long-term facility. He presents for altered mental status. Apparently the patient is not his normal self. The patient has a history of diabetes, dysphagia with G-tube, schizophrenia, generalized weakness and failure to thrive. Per report he is not in his normal mentation. There are no other complaints. There is no other history available. Allergies: No Known Allergies (Unverified , 08/14/18) Past Medical History: see triage record, DM, HTN, GERD Past Surgical History: other - G-tube Social History: Denies: smoking, alcohol use, drug use Reviewed Nursing Documentation: PMH: Agreed; PSxH: Agreed Past Medical History: No History, Except For Hx Hypertension: Yes Hx Diabetes: Yes Hx Gastrointestinal Problems: Yes - gerd Hx Neurological Problems: Yes - functional quadriplegia seen in ED Examined Data reviewed Assessment/Plan Shock , likely septic Acute renal failure Acute metabolic acidosis Hyperkalemia PEG Recent Pneumonia plan: Fluid challenge Silva IV Bicarb Pressors antibiotics monitor renal parameters and ABG no dialysis candidate until hemodynamically stable Josesito Smalls MD Sep 07, 2018 17:14
[2018-09-07] MEDS: Sodium Bicarbonate 100 ML in D5W 1000ml 1,000 ML IV SCH (18:53)
[2018-09-07] MEDS: Sodium Polystyrene Sulfonate 15gm Powder GT SCH (18:54)
[2018-09-07] MEDS: Dyna-Hex 2% Top Sol 2oz TOPIC SCH (20:00)
[2018-09-07] MEDS ORDERED: Ertapenem 1 GM in NS 55 ML IV SCH (20:00)
[2018-09-07] MEDS ORDERED: Ertapenem 0.5 GM in NS 55 ML IV SCH (20:00)
[2018-09-07 20:21] LABS: APPEARANCE,URINE CLOUDY; BILIRUBIN, URINE NEGATIVE (NEGATIVE); COLOR,URINE YELLOW; GLUCOSE, URINE (UA) NEGATIVE (NEGATIVE); KETONES,URINE 1+ (NEGATIVE); LEUKOCYTE ESTERASE ,URINE 1+ (NEGATIVE); NITRITE,URINE NEGATIVE (NEGATIVE); PH,URINE 5 (4.5-8.0); PROTEIN,URINE 3+ (NEGATIVE); UROBILINOGEN,URINE NORMAL MG/DL (0.0-1.0)
[2018-09-07] MEDS ORDERED: Vancomycin 1 GM in D5W 275 ML IVPB SCH (21:00)
[2018-09-07] MEDS: Pantoprazole Inj IVP SCH (21:22)
[2018-09-07] MEDS: Heparin 5000 units/ml inj SUBQ SCH (21:23)
--- NOTE | 2018-09-07 21:50 | Physician Query ---
--------- THIS DOCUMENT IS A PERMANENT PART OF THE MEDICAL RECORD --------- PLEASE COMPLETE THE DOCUMENT BEFORE SIGNING Dear Dr. KULKARNI Date: __09/07/18 Rotary Swaging Machine Operator/CDS Name: __Miguel PETERSON Rotary Swaging Machine Operator / CDS Phone # ____ Exercise your independent professional judgment when responding to query. Question asked do not imply a particular answer is desired/expected Clinical Documentation States: "Acute Renal Failure, Shock, likely Septic" documented in Dr. Smalls's Consultation note "This patient is septic shock. He had a temp of 103 and was tachycardic and hypotensive" --- documented in ED Report Clinical Findings Show: BP = 85/35, 73/39, 75/47 mmHg Creatinine = 4.8, 4.9 mg/dl BUN = 63, 62 mg/dl Please Clarify the type of Acute Renal Failure below: Etiology [*] ARF w/ Tubular Necrosis [] ARF w/ Cortical Necrosis [] ARF w/ Medullary Necrosis [] Acute Renal Failure (unspecified) [] Other: Condition Present on Admission: [*] Yes [] No []Clinically Undeterminable Please also document in your Progress Notes and/or Discharge Summary and indicate if the condition was present on admission. ELAINE SMALLS M.D. DATE & TIME [facility]
[2018-09-07] MEDS ORDERED: Amikacin 500 MG in NS 110 ML IV SCH (22:00)
[2018-09-08] VITALS (56 sets, daily range): BP systolic 69–118; BP diastolic 42–82
[2018-09-08] MEDS: Sodium Polystyrene Sulfonate 15gm Powder GT SCH ×2 (00:24→06:08)
--- NOTE | 2018-09-08 00:33 | Emergency Room Report ---
History of Present Illness General Chief Complaint: Altered Level of Consciousness Source: Patient Present Illness Allergies: Coded Allergies: No Known Allergies (Unverified , 08/14/18) Nursing Documentation-[facility] Past Medical History Deferred: Pt Cognitively Impaired Past Medical History: No History, Except For Hx Hypertension: Yes Hx Diabetes: Yes Hx Cancer: No Hx Gastrointestinal Problems: Yes - DYSPHAGIA Hx Neurological Problems: Yes - functional quadriplegia Physical Exam Vital Signs Date Time Temp Pulse Resp B/P (MAP) Pulse Ox O2 Delivery O2 Flow Rate FiO2 09/07/18 11:51 103.1 140 30 119/62 94 Nasal Cannula 2.0 09/07/18 15:49 100 Procedures Critical Care Time Critical Care Time i. I feel this is a highly complex case requiring extensive working including EKG/Rhythm strip, Xray/CT/US, Blood/urine lab work, repeat exams while in ED, and administration of strong opiates/narcotics for pain control, admission to hospital or close patient follow up. Total time: 30 min bedside evaluation and treatment excludes procedures (EKG). Reason for critical care: agonal breathing Possible complications: hypotension, hypertension, TN, shock, arrhythmias, metabolic acidosis, end organ damage, respiratory failure. Interventions: intubation Course: I was called to the ICU. Patient had agonal breathing. ABG shows significant acidosis. Patient not improving on nonrebreather. Patient intubated. Chest x-ray shows adequate ET tube placement. Admitting physicians informed Consultations: nursing staff, EMS, family Performed by: Dr Cristobal Tolerated well condition = critical j. because of unstable vital signs this patient had a condition that could potentially threaten life or limb. I feel this is a critical patient who required my full attention while patient was considered critical. Total Critical Care Time excluding procedures was greater than 35 minutes Intubation Intubation : Consent: Emergent Intubation Method: orotracheal Tube Size (cm): 7.5 Medications: Etomidate, Rocuronium Breath Sounds after Intubation: equal Intubation Complications: no complications Post Intubation Xray: Yes Attempts: One Patient Tolerated: Well Complications: None Medical Decision Making Diagnostic Impression: Primary Impression: Septic shock Additional Impressions: Fever Lactic acid acidosis Renal failure Metabolic acidosis Hyperkalemia ER Course I was called to the ICU to evaluate this patient. Patient admitted to ICU for septic shock. On pressors. Patient presented with agonal breathing. ABG shows significant acidosis. I made decision to intubate patient. Patient intubated. Chest x-ray shows ET tube in place. Admitting physicians informed Last Vital Signs Date Time Temp Pulse Resp B/P (MAP) Pulse Ox O2 Delivery O2 Flow Rate FiO2 09/08/18 00:00 Mechanical Ventilator 09/07/18 23:24 114 20 100 09/07/18 22:04 15.0 09/07/18 17:33 100.1 75/47 98 Status: improved Disposition: ADMITTED INPATIENT Condition: Critical Referrals: Jasmeet Reynoso DO (PCP) Michael Cristobal MD Sep 08, 2018 00:33
[2018-09-08] MEDS: Sodium Bicarbonate 100 ML in D5W 1000ml 1,000 ML IV SCH ×4 (03:00→18:51)
[2018-09-08 05:51] LABS: HEMATOCRIT 32.8 % (42.0-52.0); HEMOGLOBIN 10.6 G/DL (14.2-18.0); MEAN CORPUSCULAR VOLUME 94 FL (80-99); PLATELET COUNT 139 K/UL (150-450); RED BLOOD COUNT 3.48 M/UL (4.70-6.10); RED CELL DISTRIBUTION WIDTH 13.6 % (11.6-14.8); WHITE BLOOD COUNT 3.6 K/UL (4.8-10.8)
[2018-09-08 06:12] LABS: ALANINE AMINOTRANSFERASE 50 U/L (12-78); ALBUMIN 2.3 G/DL (3.4-5.0); ALBUMIN/GLOBULIN RATIO 0.8 (1.0-2.7); ALKALINE PHOSPHATASE 54 U/L (46-116); ANION GAP 15 mmol/L (5-15); ASPARTATE AMINO TRANSFERASE 70 U/L (15-37); BILIRUBIN,TOTAL 0.9 MG/DL (0.2-1.0); BLOOD UREA NITROGEN 56 mg/dL (7-18); CALCIUM 8.4 MG/DL (8.5-10.1); CARBON DIOXIDE 18 MMOL/L (21-32); CHLORIDE 106 MMOL/L (98-107); CREATININE 3.8 MG/DL (0.55-1.30); POTASSIUM 4.1 MMOL/L (3.5-5.1); SODIUM 139 MMOL/L (136-145)
[2018-09-08 06:21] LABS: CREATINE KINASE 1127 U/L (26-308); GAMMA GLUTAMYL TRANSPEPTIDASE 11 U/L (5-85); PHOSPHORUS 3.5 MG/DL (2.5-4.9)
[2018-09-08] MEDS: Pantoprazole Inj IVP SCH ×2 (08:54→20:31)
[2018-09-08] MEDS: Heparin 5000 units/ml inj SUBQ SCH ×2 (08:57→20:31)
[2018-09-08] MEDS ORDERED: Pantoprazole Inj IVP SCH (09:00)
--- NOTE | 2018-09-08 09:15 | Diagnostic Imaging Report ---
Indication: Post intubation Technique: One view of the chest Comparison: 7 hours earlier Findings: Interim endotracheal intubation, endotracheal tube tip projecting proximal 4 cm above the bill. Bilateral basilar atelectatic changes are again demonstrated. There is suggestion of increased retrocardiac consolidation. There is suggestion of pleural fluid bilaterally. The heart is normal in size. Impression: Satisfactory endotracheal intubation Bilateral basilar atelectasis, retrocardiac consolidation, may be increased Increased or new bilateral pleural effusions This agrees with the preliminary interpretation [facility].
--- NOTE | 2018-09-08 10:04 | Consultation ---
History of Present Illness General Chief Complaint: Altered Level of Consciousness Reason for Consultation: Sepsis Present Illness HPI Mr. Walter is a 62 yo male with PMHx of Quadriplegia with G-tube, HTN, DM and Schizophenia who [facility]. He was intubated in the ED and is now ont the ventilator. He was recently admitted for PNA and D/C'd on Levofloxacin. He had a fever of 103 on admit and but no leukocytosis. ID consulted for PNA PMHx/PSHx HTN DM Schizophenia Quadriplegia. G- tube dependent SocHx Live in a SNF Unable to obtain as patient on vent FamHx Unable to obtain as patient on vent Allergies: Coded Allergies: No Known Allergies (Unverified , 08/14/18) Medication History Scheduled Aspirin* (Aspir 81*), 81 MG GT DAILY, (Reported) Benazepril Hcl* (Benazepril Hcl*), 20 MG GT EVERY 12 HOURS, (Reported) Calcium Citrate (Calcium Citrate), 500 GM GT DAILY, (Reported) Docusate Sodium* (Docusate Sodium*), 100 MG ORAL THREE TIMES A DAY, (Reported) Insulin Aspart (Novolog Flexpen), ACHS, (Reported) Levofloxacin* (Levaquin*), 500 MG ORAL DAILY, (Reported) Levofloxacin* (Levaquin*), 750 MG ORAL DAILY, (Reported) Magnesium Hydroxide* (Milk Of Magnesia*), 30 ML ORAL DAILY, (Reported) Metformin Hcl* (Metformin Hcl*), 500 MG GT BID, (Reported) Omeprazole Magnesium (Prilosec Otc), 10 MG GT DAILY, (Reported) Risperidone* (Risperdal*), 0.25 MG ORAL DAILY, (Reported) Scheduled PRN Acetaminophen* (Tylenol*), 325 MG GT Q6HR PRN for Mild Pain/Temp > 100.5, ( Reported) Miscellaneous Medications Ferrous Sulfate (Ferrous Sulfate), 5 ML GT, (Reported) Patient History Healthcare decision maker Resuscitation status Full Code Advanced Directive on File No Review of Systems ROS Narrative Unable to obtain as patient on vent Physical Exam Last 24 Hour Vital Signs Date Time Temp Pulse Resp B/P (MAP) Pulse Ox O2 Delivery O2 Flow Rate FiO2 09/08/18 09:29 124 20 45 09/08/18 09:09 84/48 09/08/18 07:13 131 20 45 09/08/18 06:00 133 20 91/59 100 Mechanical Ventilator 45 09/08/18 06:00 91/59 09/08/18 05:24 132 21 45 09/08/18 05:00 89/63 09/08/18 05:00 132 22 89/63 100 Mechanical Ventilator 45 09/08/18 04:30 133 21 99/75 100 Mechanical Ventilator 45 09/08/18 04:00 97.9 134 20 69/56 100 Mechanical Ventilator 50 09/08/18 04:00 67/49 09/08/18 04:00 132 09/08/18 04:00 50 09/08/18 04:00 Mechanical Ventilator 09/08/18 03:48 138 21 50 09/08/18 03:30 138 21 112/82 100 Mechanical Ventilator 50 09/08/18 03:00 141 21 80/57 99 Mechanical Ventilator 50 09/08/18 02:30 140 21 74/51 99 Mechanical Ventilator 50 09/08/18 02:00 142 23 82/56 99 Mechanical Ventilator 50 09/08/18 01:30 137 20 89/65 100 Mechanical Ventilator 50 09/08/18 01:00 140 20 98/64 100 Mechanical Ventilator 50 09/08/18 00:48 126 20 50 09/08/18 00:30 126 20 88/59 100 Mechanical Ventilator 50 09/08/18 00:00 Mechanical Ventilator 09/08/18 00:00 50 09/08/18 00:00 140 09/08/18 00:00 98.3 121 20 98/64 99 Mechanical Ventilator 50 09/07/18 23:30 112 20 89/65 100 Mechanical Ventilator 60 09/07/18 23:24 114 20 100 09/07/18 23:00 112 20 115/79 100 Mechanical Ventilator 70 09/07/18 22:30 113 20 127/84 100 Mechanical Ventilator 100 09/07/18 22:04 124 45 Nasal Cannula 15.0 100 09/07/18 22:00 112 20 119/87 100 Mechanical Ventilator 100 09/07/18 22:00 Mechanical Ventilator 09/07/18 21:45 113 20 100 09/07/18 21:45 100 09/07/18 21:30 125 20 59/39 100 Non-Rebreather 15.0 09/07/18 21:00 127 34 100/61 97 Non-Rebreather 15.0 09/07/18 20:30 120 35 103/62 98 Non-Rebreather 15.0 09/07/18 20:00 97.6 128 34 93/55 80 Non-Rebreather 15.0 09/07/18 20:00 120 09/07/18 20:00 Non-Rebreather 15.0 09/07/18 19:30 120 36 105/59 96 Non-Rebreather 15.0 09/07/18 19:00 117 41 99/59 93 Non-Rebreather 15.0 09/07/18 18:30 117 36 105/56 95 Non-Rebreather 15.0 09/07/18 18:00 116 38 113/69 95 Venturi Mask 12.0 55 09/07/18 17:51 Venturi Mask 09/07/18 17:51 Venturi Mask 10.0 09/07/18 17:33 100.1 115 33 75/47 98 Nasal Cannula 4.0 09/07/18 17:30 119 36 93/52 94 Venturi Mask 12.0 55 09/07/18 17:07 75/47 09/07/18 17:02 73/39 09/07/18 17:00 118 34 91/41 94 Venturi Mask 12.0 55 09/07/18 16:57 83/35 09/07/18 16:33 100.1 09/07/18 15:49 131 53 Nasal Cannula 4.0 100 09/07/18 15:49 103.1 131 53 87/33 100 Nasal Cannula 4.0 09/07/18 11:51 103.1 140 30 119/62 94 Nasal Cannula 2.0 Intake and Output 09/07/18 09/08/18 19:00 07:00 Intake Total 6350 ml 6031.30 ml Output Total 250 ml 1580 ml Balance 6100 ml 4451.30 ml Intake Free Water 200 ml 400 ml IV Total 6150 ml 5631.30 ml Output Urine Total 250 ml 1580 ml # Voids 1 # Bowel Movements 1 Laboratory Tests Test 09/07/18 13:20 09/07/18 13:45 09/07/18 15:05 09/07/18 15:53 White Blood Count 10.7 K/UL (4.8-10.8) Red Blood Count 3.82 M/UL (4.70-6.10) L Hemoglobin 11.5 G/DL (14.2-18.0) L Hematocrit 37.0 % (42.0-52.0) L Mean Corpuscular Volume 97 FL (80-99) Mean Corpuscular Hemoglobin 30.1 PG (27.0-31.0) Mean Corpuscular Hemoglobin Concent 31.0 G/DL (32.0-36.0) L Red Cell Distribution Width 14.1 % (11.6-14.8) Platelet Count 183 K/UL (150-450) Mean Platelet Volume 9.3 FL (6.5-10.1) Neutrophils (%) (Auto) % (45.0-75.0) Lymphocytes (%) (Auto) % (20.0-45.0) Monocytes (%) (Auto) % (1.0-10.0) Eosinophils (%) (Auto) % (0.0-3.0) Basophils (%) (Auto) % (0.0-2.0) Differential Total Cells Counted 100 Neutrophils % (Manual) 89 % (45-75) H Lymphocytes % (Manual) 7 % (20-45) L Monocytes % (Manual) 4 % (1-10) Eosinophils % (Manual) 0 % (0-3) Basophils % (Manual) 0 % (0-2) Band Neutrophils 0 % (0-8) Platelet Estimate Adequate Platelet Morphology Normal Red Blood Cell Morphology Normal Sodium Level 145 MMOL/L (136-145) 143 MMOL/L (136-145) Potassium Level 8.4 MMOL/L (3.5-5.1) *H 6.3 MMOL/L (3.5-5.1) *H Chloride Level 111 MMOL/L (98-107) H 109 MMOL/L (98-107) H Carbon Dioxide Level 7 MMOL/L (21-32) *L 10 MMOL/L (21-32) L Blood Urea Nitrogen 63 mg/dL (7-18) H 62 mg/dL (7-18) H Creatinine 4.8 MG/DL (0.55-1.30) H 4.9 MG/DL (0.55-1.30) H Estimat Glomerular Filtration Rate 12.5 mL/min (>60) 12.2 mL/min (>60) Glucose Level 132 MG/DL (74-106) H 116 MG/DL (74-106) H Lactic Acid Level 13.60 mmol/L (0.4-2.0) H 13.60 mmol/L (0.66-2.22) H Calcium Level 7.9 MG/DL (8.5-10.1) L 8.6 MG/DL (8.5-10.1) Phosphorus Level 6.0 MG/DL (2.5-4.9) H Magnesium Level 3.8 MG/DL (1.5-2.4) H Total Bilirubin 0.5 MG/DL (0.2-1.0) 1.3 MG/DL (0.2-1.0) H Aspartate Amino Transf (AST/SGOT) 46 U/L (15-37) H 67 U/L (15-37) H Alanine Aminotransferase (ALT/SGPT) 47 U/L (12-78) 37 U/L (12-78) Alkaline Phosphatase 51 U/L (46-116) 55 U/L (46-116) Total Creatine Kinase 557 U/L (26-140) H 1095 U/L (26-308) H Creatine Kinase MB 0.7 NG/ML (0.0-3.6) Creatine Kinase MB Relative Index 0.1 Troponin I 0.124 ng/mL (0.000-0.056) Total Protein 4.9 G/DL (6.4-8.2) L 5.3 G/DL (6.4-8.2) L Albumin 1.7 G/DL (3.4-5.0) L 1.9 G/DL (3.4-5.0) L Globulin 3.2 g/dL 3.4 g/dL Arterial Blood pH 7.191 (7.350-7.450) Arterial Blood Partial Pressure CO2 21.8 mmHg (35.0-45.0) *L Arterial Blood Partial Pressure O2 92.4 mmHg (75.0-100.0) Arterial Blood HCO3 8.2 mmol/L (22.0-26.0) *L Arterial Blood Oxygen Saturation 94.1 % (95-100) L Arterial Blood Base Excess -18.1 (-2-2) *L Harvey Test Positive Anion Gap 23 mmol/L (5-15) H Uric Acid 7.4 MG/DL (2.6-7.2) H Direct Bilirubin 0.2 MG/DL (0.0-0.3) C-Reactive Protein, Quantitative 66.9 mg/dL (0.00-0.90) H Albumin/Globulin Ratio 0.6 (1.0-2.7) L Urine Color Suze Urine Appearance Cloudy Urine pH 5 (4.5-8.0) Urine Specific [place] 1.020 (1.005-1.035) Urine Protein 4+ (NEGATIVE) H Urine Glucose (UA) 1+ (NEGATIVE) H Urine Ketones 1+ (NEGATIVE) H Urine Blood 5+ (NEGATIVE) H Urine Nitrite Positive (NEGATIVE) H Urine Bilirubin 1+ (NEGATIVE) H Urine Ictotest Negative (NEGATIVE) Urine Urobilinogen 1 MG/DL (0.0-1.0) H Urine Leukocyte Esterase 2+ (NEGATIVE) H Urine RBC Tntc /HPF (0 - 0) H Urine WBC 2-4 /HPF (0 - 0) Urine Squamous Epithelial Cells None /LPF (NONE/OCC) Urine Bacteria Many /HPF (NONE) H Urine Coarse Granular Casts 5-10 /LPF (NONE) H Test 09/07/18 18:05 09/07/18 20:00 09/07/18 20:32 09/08/18 00:30 Arterial Blood pH 7.116 (7.350-7.450) 7.113 (7.350-7.450) 7.337 (7.350-7.450) Arterial Blood Partial Pressure CO2 27.0 mmHg (35.0-45.0) L 40.1 mmHg (35.0-45.0) 26.9 mmHg (35.0-45.0) L Arterial Blood Partial Pressure O2 76.3 mmHg (75.0-100.0) 82.7 mmHg (75.0-100.0) 228.3 mmHg (75.0-100.0) H Arterial Blood HCO3 8.5 mmol/L (22.0-26.0) *L 12.5 mmol/L (22.0-26.0) *L 14.1 mmol/L (22.0-26.0) *L Arterial Blood Oxygen Saturation 90.1 % (95-100) L 92.0 % (95-100) L 99.2 % (95-100) Arterial Blood Base Excess -19.4 (-2-2) *L -16.1 (-2-2) *L -10.2 (-2-2) *L Harvey Test Positive Positive Positive Urine Color Yellow Urine Appearance Cloudy Urine pH 5 (4.5-8.0) Urine Specific [place] 1.015 (1.005-1.035) Urine Protein 3+ (NEGATIVE) H Urine Glucose (UA) Negative (NEGATIVE) Urine Ketones 1+ (NEGATIVE) H Urine Blood 5+ (NEGATIVE) H Urine Nitrite Negative (NEGATIVE) Urine Bilirubin Negative (NEGATIVE) Urine Urobilinogen Normal MG/DL (0.0-1.0) Urine Leukocyte Esterase 1+ (NEGATIVE) H Urine RBC 10-15 /HPF (0 - 0) H Urine WBC 0-2 /HPF (0 - 0) Urine Squamous Epithelial Cells None /LPF (NONE/OCC) Urine Bacteria Moderate /HPF (NONE) H Urine Granular Casts 5-10 /LPF (NONE) H Urine Eosinophils None seen (NONE SEEN) Urine Random Sodium 42 mmol/L (20-110) Urine Potassium Timed 42 mmol/L (12-62) Test 09/08/18 04:00 09/08/18 05:00 Arterial Blood pH 7.557 (7.350-7.450) Arterial Blood Partial Pressure CO2 19.3 mmHg (35.0-45.0) *L Arterial Blood Partial Pressure O2 75.0 mmHg (75.0-100.0) Arterial Blood HCO3 16.8 mmol/L (22.0-26.0) *L Arterial Blood Oxygen Saturation 95.4 % (95-100) Arterial Blood Base Excess -3.7 (-2-2) L Harvey Test Positive White Blood Count 3.6 K/UL (4.8-10.8) #L Red Blood Count 3.48 M/UL (4.70-6.10) L Hemoglobin 10.6 G/DL (14.2-18.0) L Hematocrit 32.8 % (42.0-52.0) L Mean Corpuscular Volume 94 FL (80-99) Mean Corpuscular Hemoglobin 30.4 PG (27.0-31.0) Mean Corpuscular Hemoglobin Concent 32.2 G/DL (32.0-36.0) Red Cell Distribution Width 13.6 % (11.6-14.8) Platelet Count 139 K/UL (150-450) L Mean Platelet Volume 8.7 FL (6.5-10.1) Neutrophils (%) (Auto) % (45.0-75.0) Lymphocytes (%) (Auto) % (20.0-45.0) Monocytes (%) (Auto) % (1.0-10.0) Eosinophils (%) (Auto) % (0.0-3.0) Basophils (%) (Auto) % (0.0-2.0) Sodium Level 139 MMOL/L (136-145) Potassium Level 4.1 MMOL/L (3.5-5.1) Chloride Level 106 MMOL/L (98-107) Carbon Dioxide Level 18 MMOL/L (21-32) L Anion Gap 15 mmol/L (5-15) Blood Urea Nitrogen 56 mg/dL (7-18) H Creatinine 3.8 MG/DL (0.55-1.30) H Estimat Glomerular Filtration Rate 16.3 mL/min (>60) Glucose Level 108 MG/DL (74-106) H Lactic Acid Level 5.70 mmol/L (0.4-2.0) H Uric Acid 6.7 MG/DL (2.6-7.2) Calcium Level 8.4 MG/DL (8.5-10.1) L Phosphorus Level 3.5 MG/DL (2.5-4.9) Magnesium Level 2.8 MG/DL (1.8-2.4) H Total Bilirubin 0.9 MG/DL (0.2-1.0) Gamma Glutamyl Transpeptidase 11 U/L (5-85) Aspartate Amino Transf (AST/SGOT) 70 U/L (15-37) H Alanine Aminotransferase (ALT/SGPT) 50 U/L (12-78) Alkaline Phosphatase 54 U/L (46-116) Total Creatine Kinase 1127 U/L (26-308) H Troponin I 0.316 ng/mL (0.000-0.056) Pro-B-Type Natriuretic Peptide 9556 pg/mL (0-125) H Total Protein 5.3 G/DL (6.4-8.2) L Albumin 2.3 G/DL (3.4-5.0) L Globulin 3.0 g/dL Albumin/Globulin Ratio 0.8 (1.0-2.7) L Thyroid Stimulating Hormone (TSH) 0.707 uiU/mL (0.358-3.740) Cortisol AM Sample Pending Microbiology Date/Time Source Procedure Growth Status 09/07/18 13:36 Nasal Nares Influenza Types A,B Antigen (JIMY) - Final Complete 09/07/18 20:00 Urine,Clean Catch Urine Culture - Preliminary NO GROWTH Resulted Height (Feet): 5 Height (Inches): 6.00 Weight (Pounds): 124 Medications Current Medications Medications (Trade) Dose Ordered Sig/Julito Route PRN Reason Start Time Stop Time Status Last Admin Dose Admin Acetaminophen (Tylenol) 650 mg Q4H PRN ORAL fever 09/07/18 15:15 10/07/18 15:14 09/08/18 09:15 Albuterol/ Ipratropium (Albuterol/ Ipratropium) 3 ml Q4H PRN HHN Shortness of Breath 09/07/18 15:15 09/12/18 15:14 Amikacin Protocol (Amikacin pharmacy to dose) 1 ea DAILY PRN MISC PER PHARMACY 09/07/18 16:30 10/07/18 16:29 Chlorhexidine Gluconate (Camila-Hex 2%) 1 applic DAILY@2000 TOPIC 09/07/18 20:00 10/07/18 19:59 09/07/18 20:00 Dextrose (Dextrose 50%) 25 ml Q30M PRN IV Hypoglycemia 09/07/18 16:15 10/07/18 16:14 Dextrose (Dextrose 50%) 50 ml Q30M PRN IV hypoglycemia 09/07/18 16:15 10/07/18 16:14 Ertapenem 0.5 gm/ Sodium Chloride 55 ml @ 110 mls/hr Q24H IV 09/07/18 20:00 09/12/18 19:59 09/07/18 20:03 Heparin Sodium (Porcine) (Heparin 5000 units/ml) 5,000 units EVERY 12 HOURS SUBQ 09/07/18 21:00 10/07/18 20:59 09/08/18 08:57 Morphine Sulfate (Morphine Sulfate) 2 mg Q4H PRN IVP Severe Pain (Pain Scale 7-10) 09/07/18 15:15 09/14/18 15:14 Norepinephrine Bitartrate 4 mg/ Dextrose 254 ml @ 0 mls/hr Q24H IV 09/07/18 16:15 10/07/18 16:14 09/08/18 09:09 Ondansetron HCl (Zofran) 4 mg Q6H PRN IVP Nausea & Vomiting 09/07/18 15:15 10/07/18 15:14 Pantoprazole (Protonix) 40 mg Q12HR IVP 09/07/18 21:00 10/08/18 08:59 09/08/18 08:54 Polyethylene Glycol (Miralax) 17 gm DAILYPRN PRN ORAL Constipation 09/07/18 15:15 10/07/18 15:14 Sodium Bicarbonate 100 ml/Dextrose 1,100 ml @ 150 mls/hr Q7H20M IV 09/07/18 18:30 10/07/18 18:29 09/08/18 09:08 Vancomycin HCl (Vanco rx to dose) 1 ea DAILY PRN MISC PER PHARMACY 09/07/18 16:30 10/07/18 16:29 Objective Narrative Gen: NAD, On vent HEENT: NCAT, MMM, EOMI, PERRL, No Oral lesion, no scleral icterus NECK: full range of motion, supple, no meningismus, No LAD, No JVD LUNGS: CTAB, No W/C, CARDS: RRR, S1, S2, No M/R/G, ABD: Soft, NT, distended, No R/G, + BS, No HSM, No Masses, G tube (No E/P) : Deferred Ext: C/C/E, Pulses 2+ B/L (DP, Rad): NEURO: Intubated, nor following SKIN: Warm/dry, No rashes Assessment/Plan Assessment/Plan 62 yo male with PMHx of Quadriplegia with G-tube, HTN, DM and Schizophenia [facility]. Sepsis - Probably PNA but will f/u other cultures No intubated on vent 45% CXR 09/07/18 - possible left sided consolidation Inf neg No leukocytosis Febrile to 103 on admit HTN DM Schizophenia Quadriplegia. G- tube dependent Plan - Continue Vancmocyin and Ertapenem pending Cx - f/u cultures - Urine [place] - Monitor CBC and temps Thank you for this consult. We will continue to follow the patient during this hospitalization. Asim De Leon MD Sep 08, 2018 10:04
--- NOTE | 2018-09-08 10:37 | Cardiac Electrophysiology PN ---
Subjective Subjective [id number] Objective Last 24 Hour Vital Signs Date Time Temp Pulse Resp B/P (MAP) Pulse Ox O2 Delivery O2 Flow Rate FiO2 09/08/18 09:29 124 20 45 09/08/18 09:09 84/48 09/08/18 07:13 131 20 45 09/08/18 06:00 133 20 91/59 100 Mechanical Ventilator 45 09/08/18 06:00 91/59 09/08/18 05:24 132 21 45 09/08/18 05:00 89/63 09/08/18 05:00 132 22 89/63 100 Mechanical Ventilator 45 09/08/18 04:30 133 21 99/75 100 Mechanical Ventilator 45 09/08/18 04:00 97.9 134 20 69/56 100 Mechanical Ventilator 50 09/08/18 04:00 67/49 09/08/18 04:00 132 09/08/18 04:00 50 09/08/18 04:00 Mechanical Ventilator 09/08/18 03:48 138 21 50 09/08/18 03:30 138 21 112/82 100 Mechanical Ventilator 50 09/08/18 03:00 141 21 80/57 99 Mechanical Ventilator 50 09/08/18 02:30 140 21 74/51 99 Mechanical Ventilator 50 09/08/18 02:00 142 23 82/56 99 Mechanical Ventilator 50 09/08/18 01:30 137 20 89/65 100 Mechanical Ventilator 50 09/08/18 01:00 140 20 98/64 100 Mechanical Ventilator 50 09/08/18 00:48 126 20 50 09/08/18 00:30 126 20 88/59 100 Mechanical Ventilator 50 09/08/18 00:00 Mechanical Ventilator 09/08/18 00:00 50 09/08/18 00:00 140 09/08/18 00:00 98.3 121 20 98/64 99 Mechanical Ventilator 50 09/07/18 23:30 112 20 89/65 100 Mechanical Ventilator 60 09/07/18 23:24 114 20 100 09/07/18 23:00 112 20 115/79 100 Mechanical Ventilator 70 09/07/18 22:30 113 20 127/84 100 Mechanical Ventilator 100 09/07/18 22:04 124 45 Nasal Cannula 15.0 100 09/07/18 22:00 112 20 119/87 100 Mechanical Ventilator 100 09/07/18 22:00 Mechanical Ventilator 09/07/18 21:45 113 20 100 09/07/18 21:45 100 09/07/18 21:30 125 20 59/39 100 Non-Rebreather 15.0 09/07/18 21:00 127 34 100/61 97 Non-Rebreather 15.0 09/07/18 20:30 120 35 103/62 98 Non-Rebreather 15.0 09/07/18 20:00 97.6 128 34 93/55 80 Non-Rebreather 15.0 09/07/18 20:00 120 09/07/18 20:00 Non-Rebreather 15.0 09/07/18 19:30 120 36 105/59 96 Non-Rebreather 15.0 09/07/18 19:00 117 41 99/59 93 Non-Rebreather 15.0 09/07/18 18:30 117 36 105/56 95 Non-Rebreather 15.0 09/07/18 18:00 116 38 113/69 95 Venturi Mask 12.0 55 09/07/18 17:51 Venturi Mask 09/07/18 17:51 Venturi Mask 10.0 09/07/18 17:33 100.1 115 33 75/47 98 Nasal Cannula 4.0 09/07/18 17:30 119 36 93/52 94 Venturi Mask 12.0 55 09/07/18 17:07 75/47 09/07/18 17:02 73/39 09/07/18 17:00 118 34 91/41 94 Venturi Mask 12.0 55 09/07/18 16:57 83/35 09/07/18 16:33 100.1 09/07/18 15:49 131 53 Nasal Cannula 4.0 100 09/07/18 15:49 103.1 131 53 87/33 100 Nasal Cannula 4.0 09/07/18 11:51 103.1 140 30 119/62 94 Nasal Cannula 2.0 Intake and Output 09/07/18 09/08/18 19:00 07:00 Intake Total 6350 ml 6031.30 ml Output Total 250 ml 1580 ml Balance 6100 ml 4451.30 ml Intake Free Water 200 ml 400 ml IV Total 6150 ml 5631.30 ml Output Urine Total 250 ml 1580 ml # Voids 1 # Bowel Movements 1 Laboratory Tests Test 09/07/18 13:20 09/07/18 13:45 09/07/18 15:05 09/07/18 15:53 White Blood Count 10.7 K/UL (4.8-10.8) Red Blood Count 3.82 M/UL (4.70-6.10) L Hemoglobin 11.5 G/DL (14.2-18.0) L Hematocrit 37.0 % (42.0-52.0) L Mean Corpuscular Volume 97 FL (80-99) Mean Corpuscular Hemoglobin 30.1 PG (27.0-31.0) Mean Corpuscular Hemoglobin Concent 31.0 G/DL (32.0-36.0) L Red Cell Distribution Width 14.1 % (11.6-14.8) Platelet Count 183 K/UL (150-450) Mean Platelet Volume 9.3 FL (6.5-10.1) Neutrophils (%) (Auto) % (45.0-75.0) Lymphocytes (%) (Auto) % (20.0-45.0) Monocytes (%) (Auto) % (1.0-10.0) Eosinophils (%) (Auto) % (0.0-3.0) Basophils (%) (Auto) % (0.0-2.0) Differential Total Cells Counted 100 Neutrophils % (Manual) 89 % (45-75) H Lymphocytes % (Manual) 7 % (20-45) L Monocytes % (Manual) 4 % (1-10) Eosinophils % (Manual) 0 % (0-3) Basophils % (Manual) 0 % (0-2) Band Neutrophils 0 % (0-8) Platelet Estimate Adequate Platelet Morphology Normal Red Blood Cell Morphology Normal Sodium Level 145 MMOL/L (136-145) 143 MMOL/L (136-145) Potassium Level 8.4 MMOL/L (3.5-5.1) *H 6.3 MMOL/L (3.5-5.1) *H Chloride Level 111 MMOL/L (98-107) H 109 MMOL/L (98-107) H Carbon Dioxide Level 7 MMOL/L (21-32) *L 10 MMOL/L (21-32) L Blood Urea Nitrogen 63 mg/dL (7-18) H 62 mg/dL (7-18) H Creatinine 4.8 MG/DL (0.55-1.30) H 4.9 MG/DL (0.55-1.30) H Estimat Glomerular Filtration Rate 12.5 mL/min (>60) 12.2 mL/min (>60) Glucose Level 132 MG/DL (74-106) H 116 MG/DL (74-106) H Lactic Acid Level 13.60 mmol/L (0.4-2.0) H 13.60 mmol/L (0.66-2.22) H Calcium Level 7.9 MG/DL (8.5-10.1) L 8.6 MG/DL (8.5-10.1) Phosphorus Level 6.0 MG/DL (2.5-4.9) H Magnesium Level 3.8 MG/DL (1.5-2.4) H Total Bilirubin 0.5 MG/DL (0.2-1.0) 1.3 MG/DL (0.2-1.0) H Aspartate Amino Transf (AST/SGOT) 46 U/L (15-37) H 67 U/L (15-37) H Alanine Aminotransferase (ALT/SGPT) 47 U/L (12-78) 37 U/L (12-78) Alkaline Phosphatase 51 U/L (46-116) 55 U/L (46-116) Total Creatine Kinase 557 U/L (26-140) H 1095 U/L (26-308) H Creatine Kinase MB 0.7 NG/ML (0.0-3.6) Creatine Kinase MB Relative Index 0.1 Troponin I 0.124 ng/mL (0.000-0.056) Total Protein 4.9 G/DL (6.4-8.2) L 5.3 G/DL (6.4-8.2) L Albumin 1.7 G/DL (3.4-5.0) L 1.9 G/DL (3.4-5.0) L Globulin 3.2 g/dL 3.4 g/dL Arterial Blood pH 7.191 (7.350-7.450) Arterial Blood Partial Pressure CO2 21.8 mmHg (35.0-45.0) *L Arterial Blood Partial Pressure O2 92.4 mmHg (75.0-100.0) Arterial Blood HCO3 8.2 mmol/L (22.0-26.0) *L Arterial Blood Oxygen Saturation 94.1 % (95-100) L Arterial Blood Base Excess -18.1 (-2-2) *L Harvey Test Positive Anion Gap 23 mmol/L (5-15) H Uric Acid 7.4 MG/DL (2.6-7.2) H Direct Bilirubin 0.2 MG/DL (0.0-0.3) C-Reactive Protein, Quantitative 66.9 mg/dL (0.00-0.90) H Albumin/Globulin Ratio 0.6 (1.0-2.7) L Urine Color Suze Urine Appearance Cloudy Urine pH 5 (4.5-8.0) Urine Specific [place] 1.020 (1.005-1.035) Urine Protein 4+ (NEGATIVE) H Urine Glucose (UA) 1+ (NEGATIVE) H Urine Ketones 1+ (NEGATIVE) H Urine Blood 5+ (NEGATIVE) H Urine Nitrite Positive (NEGATIVE) H Urine Bilirubin 1+ (NEGATIVE) H Urine Ictotest Negative (NEGATIVE) Urine Urobilinogen 1 MG/DL (0.0-1.0) H Urine Leukocyte Esterase 2+ (NEGATIVE) H Urine RBC Tntc /HPF (0 - 0) H Urine WBC 2-4 /HPF (0 - 0) Urine Squamous Epithelial Cells None /LPF (NONE/OCC) Urine Bacteria Many /HPF (NONE) H Urine Coarse Granular Casts 5-10 /LPF (NONE) H Test 09/07/18 18:05 09/07/18 20:00 09/07/18 20:32 09/08/18 00:30 Arterial Blood pH 7.116 (7.350-7.450) 7.113 (7.350-7.450) 7.337 (7.350-7.450) Arterial Blood Partial Pressure CO2 27.0 mmHg (35.0-45.0) L 40.1 mmHg (35.0-45.0) 26.9 mmHg (35.0-45.0) L Arterial Blood Partial Pressure O2 76.3 mmHg (75.0-100.0) 82.7 mmHg (75.0-100.0) 228.3 mmHg (75.0-100.0) H Arterial Blood HCO3 8.5 mmol/L (22.0-26.0) *L 12.5 mmol/L (22.0-26.0) *L 14.1 mmol/L (22.0-26.0) *L Arterial Blood Oxygen Saturation 90.1 % (95-100) L 92.0 % (95-100) L 99.2 % (95-100) Arterial Blood Base Excess -19.4 (-2-2) *L -16.1 (-2-2) *L -10.2 (-2-2) *L Harvey Test Positive Positive Positive Urine Color Yellow Urine Appearance Cloudy Urine pH 5 (4.5-8.0) Urine Specific [place] 1.015 (1.005-1.035) Urine Protein 3+ (NEGATIVE) H Urine Glucose (UA) Negative (NEGATIVE) Urine Ketones 1+ (NEGATIVE) H Urine Blood 5+ (NEGATIVE) H Urine Nitrite Negative (NEGATIVE) Urine Bilirubin Negative (NEGATIVE) Urine Urobilinogen Normal MG/DL (0.0-1.0) Urine Leukocyte Esterase 1+ (NEGATIVE) H Urine RBC 10-15 /HPF (0 - 0) H Urine WBC 0-2 /HPF (0 - 0) Urine Squamous Epithelial Cells None /LPF (NONE/OCC) Urine Bacteria Moderate /HPF (NONE) H Urine Granular Casts 5-10 /LPF (NONE) H Urine Eosinophils None seen (NONE SEEN) Urine Random Sodium 42 mmol/L (20-110) Urine Potassium Timed 42 mmol/L (12-62) Test 09/08/18 04:00 09/08/18 05:00 09/08/18 10:00 Arterial Blood pH 7.557 (7.350-7.450) Arterial Blood Partial Pressure CO2 19.3 mmHg (35.0-45.0) *L Arterial Blood Partial Pressure O2 75.0 mmHg (75.0-100.0) Arterial Blood HCO3 16.8 mmol/L (22.0-26.0) *L Arterial Blood Oxygen Saturation 95.4 % (95-100) Arterial Blood Base Excess -3.7 (-2-2) L Harvey Test Positive White Blood Count 3.6 K/UL (4.8-10.8) #L Red Blood Count 3.48 M/UL (4.70-6.10) L Hemoglobin 10.6 G/DL (14.2-18.0) L Hematocrit 32.8 % (42.0-52.0) L Mean Corpuscular Volume 94 FL (80-99) Mean Corpuscular Hemoglobin 30.4 PG (27.0-31.0) Mean Corpuscular Hemoglobin Concent 32.2 G/DL (32.0-36.0) Red Cell Distribution Width 13.6 % (11.6-14.8) Platelet Count 139 K/UL (150-450) L Mean Platelet Volume 8.7 FL (6.5-10.1) Neutrophils (%) (Auto) % (45.0-75.0) Lymphocytes (%) (Auto) % (20.0-45.0) Monocytes (%) (Auto) % (1.0-10.0) Eosinophils (%) (Auto) % (0.0-3.0) Basophils (%) (Auto) % (0.0-2.0) Sodium Level 139 MMOL/L (136-145) Potassium Level 4.1 MMOL/L (3.5-5.1) Chloride Level 106 MMOL/L (98-107) Carbon Dioxide Level 18 MMOL/L (21-32) L Anion Gap 15 mmol/L (5-15) Blood Urea Nitrogen 56 mg/dL (7-18) H Creatinine 3.8 MG/DL (0.55-1.30) H Estimat Glomerular Filtration Rate 16.3 mL/min (>60) Glucose Level 108 MG/DL (74-106) H Lactic Acid Level 5.70 mmol/L (0.4-2.0) H Pending Uric Acid 6.7 MG/DL (2.6-7.2) Calcium Level 8.4 MG/DL (8.5-10.1) L Phosphorus Level 3.5 MG/DL (2.5-4.9) Magnesium Level 2.8 MG/DL (1.8-2.4) H Total Bilirubin 0.9 MG/DL (0.2-1.0) Gamma Glutamyl Transpeptidase 11 U/L (5-85) Aspartate Amino Transf (AST/SGOT) 70 U/L (15-37) H Alanine Aminotransferase (ALT/SGPT) 50 U/L (12-78) Alkaline Phosphatase 54 U/L (46-116) Total Creatine Kinase 1127 U/L (26-308) H Troponin I 0.316 ng/mL (0.000-0.056) Pro-B-Type Natriuretic Peptide 9556 pg/mL (0-125) H Total Protein 5.3 G/DL (6.4-8.2) L Albumin 2.3 G/DL (3.4-5.0) L Globulin 3.0 g/dL Albumin/Globulin Ratio 0.8 (1.0-2.7) L Thyroid Stimulating Hormone (TSH) 0.707 uiU/mL (0.358-3.740) Cortisol AM Sample Pending Random Vancomycin Level Pending Microbiology Date/Time Source Procedure Growth Status 09/07/18 13:36 Nasal Nares Influenza Types A,B Antigen (JIMY) - Final Complete 09/07/18 20:00 Urine,Clean Catch Urine Culture - Preliminary NO GROWTH Resulted Jasbir Madsen MD Sep 08, 2018 10:37
--- NOTE | 2018-09-08 11:08 | Pulmonolgy Critical Care Note ---
Critical Care - Asmt/Plan Problems: (1) Septic shock (2) ATN (acute tubular necrosis) (3) Hyperkalemia (4) Metabolic acidosis Respiratory: monitor respiratory rate, adjust FIO2, CXR Cardiac: continue to monitor HR/BP, other - Add another pressore, give more fluids Renal: F/U I&O, keep IV fluid, increase IV fluid Infectious Disease: check cultures, continue antibiotics Gastrointestinal: hold feedings Endocrine: monitor blood sugar Hematologic: monitor H/H, transfuse if hgb<8.5 Neurologic: keep patient comfortable Affect: PRN ativan Prophylaxis: Heparin Notes Reviewed: fur mixer, cardio, renal Discussed with: nurses, consultants, 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 - Objective Last 24 Hour Vital Signs Date Time Temp Pulse Resp B/P (MAP) Pulse Ox O2 Delivery O2 Flow Rate FiO2 09/08/18 09:29 124 20 45 09/08/18 09:09 84/48 09/08/18 07:13 131 20 45 09/08/18 06:00 133 20 91/59 100 Mechanical Ventilator 45 09/08/18 06:00 91/59 09/08/18 05:24 132 21 45 09/08/18 05:00 89/63 09/08/18 05:00 132 22 89/63 100 Mechanical Ventilator 45 09/08/18 04:30 133 21 99/75 100 Mechanical Ventilator 45 09/08/18 04:00 97.9 134 20 69/56 100 Mechanical Ventilator 50 09/08/18 04:00 67/49 09/08/18 04:00 132 09/08/18 04:00 50 09/08/18 04:00 Mechanical Ventilator 09/08/18 03:48 138 21 50 09/08/18 03:30 138 21 112/82 100 Mechanical Ventilator 50 09/08/18 03:00 141 21 80/57 99 Mechanical Ventilator 50 09/08/18 02:30 140 21 74/51 99 Mechanical Ventilator 50 09/08/18 02:00 142 23 82/56 99 Mechanical Ventilator 50 09/08/18 01:30 137 20 89/65 100 Mechanical Ventilator 50 09/08/18 01:00 140 20 98/64 100 Mechanical Ventilator 50 09/08/18 00:48 126 20 50 09/08/18 00:30 126 20 88/59 100 Mechanical Ventilator 50 09/08/18 00:00 Mechanical Ventilator 09/08/18 00:00 50 09/08/18 00:00 140 09/08/18 00:00 98.3 121 20 98/64 99 Mechanical Ventilator 50 09/07/18 23:30 112 20 89/65 100 Mechanical Ventilator 60 09/07/18 23:24 114 20 100 09/07/18 23:00 112 20 115/79 100 Mechanical Ventilator 70 09/07/18 22:30 113 20 127/84 100 Mechanical Ventilator 100 09/07/18 22:04 124 45 Nasal Cannula 15.0 100 09/07/18 22:00 112 20 119/87 100 Mechanical Ventilator 100 09/07/18 22:00 Mechanical Ventilator 09/07/18 21:45 113 20 100 09/07/18 21:45 100 09/07/18 21:30 125 20 59/39 100 Non-Rebreather 15.0 09/07/18 21:00 127 34 100/61 97 Non-Rebreather 15.0 09/07/18 20:30 120 35 103/62 98 Non-Rebreather 15.0 09/07/18 20:00 97.6 128 34 93/55 80 Non-Rebreather 15.0 09/07/18 20:00 120 09/07/18 20:00 Non-Rebreather 15.0 09/07/18 19:30 120 36 105/59 96 Non-Rebreather 15.0 09/07/18 19:00 117 41 99/59 93 Non-Rebreather 15.0 09/07/18 18:30 117 36 105/56 95 Non-Rebreather 15.0 09/07/18 18:00 116 38 113/69 95 Venturi Mask 12.0 55 09/07/18 17:51 Venturi Mask 09/07/18 17:51 Venturi Mask 10.0 09/07/18 17:33 100.1 115 33 75/47 98 Nasal Cannula 4.0 09/07/18 17:30 119 36 93/52 94 Venturi Mask 12.0 55 09/07/18 17:07 75/47 09/07/18 17:02 73/39 09/07/18 17:00 118 34 91/41 94 Venturi Mask 12.0 55 09/07/18 16:57 83/35 09/07/18 16:33 100.1 09/07/18 15:49 131 53 Nasal Cannula 4.0 100 09/07/18 15:49 103.1 131 53 87/33 100 Nasal Cannula 4.0 09/07/18 11:51 103.1 140 30 119/62 94 Nasal Cannula 2.0 Status: sedated, somnolent Condition: critical Lungs: rales, rhonchi Heart: HR/BP stable Abdomen: soft Extremities: no C/C/E, edema Micro: Microbiology Date/Time Source Procedure Growth Status 09/07/18 13:36 Nasal Nares Influenza Types A,B Antigen (JIMY) - Final Complete 09/07/18 20:00 Urine,Clean Catch Urine Culture - Preliminary NO GROWTH Resulted Accucheck: 117 Critical Care - Subjective ROS Limited/Unobtainable: Yes Interval Events: intubated overnight FI02: 45 Vent Support Breath Rate: 20 Vent Support Mode: AC Vent Tidal Volume: 700 Sputum Amount: Scant PEEP: 0.0 PIP: 30 I&O: Intake and Output 09/07/18 09/08/18 19:00 07:00 Intake Total 6350 ml 6031.30 ml Output Total 250 ml 1580 ml Balance 6100 ml 4451.30 ml Intake Free Water 200 ml 400 ml IV Total 6150 ml 5631.30 ml Output Urine Total 250 ml 1580 ml # Voids 1 # Bowel Movements 1 CXR: ET in good position ET-Tube: 7.5 ET Position: 23 Labs: Laboratory Tests Test 09/07/18 13:20 09/07/18 13:45 09/07/18 15:05 09/07/18 15:53 White Blood Count 10.7 K/UL (4.8-10.8) Red Blood Count 3.82 M/UL (4.70-6.10) L Hemoglobin 11.5 G/DL (14.2-18.0) L Hematocrit 37.0 % (42.0-52.0) L Mean Corpuscular Volume 97 FL (80-99) Mean Corpuscular Hemoglobin 30.1 PG (27.0-31.0) Mean Corpuscular Hemoglobin Concent 31.0 G/DL (32.0-36.0) L Red Cell Distribution Width 14.1 % (11.6-14.8) Platelet Count 183 K/UL (150-450) Mean Platelet Volume 9.3 FL (6.5-10.1) Neutrophils (%) (Auto) % (45.0-75.0) Lymphocytes (%) (Auto) % (20.0-45.0) Monocytes (%) (Auto) % (1.0-10.0) Eosinophils (%) (Auto) % (0.0-3.0) Basophils (%) (Auto) % (0.0-2.0) Differential Total Cells Counted 100 Neutrophils % (Manual) 89 % (45-75) H Lymphocytes % (Manual) 7 % (20-45) L Monocytes % (Manual) 4 % (1-10) Eosinophils % (Manual) 0 % (0-3) Basophils % (Manual) 0 % (0-2) Band Neutrophils 0 % (0-8) Platelet Estimate Adequate Platelet Morphology Normal Red Blood Cell Morphology Normal Sodium Level 145 MMOL/L (136-145) 143 MMOL/L (136-145) Potassium Level 8.4 MMOL/L (3.5-5.1) *H 6.3 MMOL/L (3.5-5.1) *H Chloride Level 111 MMOL/L (98-107) H 109 MMOL/L (98-107) H Carbon Dioxide Level 7 MMOL/L (21-32) *L 10 MMOL/L (21-32) L Blood Urea Nitrogen 63 mg/dL (7-18) H 62 mg/dL (7-18) H Creatinine 4.8 MG/DL (0.55-1.30) H 4.9 MG/DL (0.55-1.30) H Estimat Glomerular Filtration Rate 12.5 mL/min (>60) 12.2 mL/min (>60) Glucose Level 132 MG/DL (74-106) H 116 MG/DL (74-106) H Lactic Acid Level 13.60 mmol/L (0.4-2.0) H 13.60 mmol/L (0.66-2.22) H Calcium Level 7.9 MG/DL (8.5-10.1) L 8.6 MG/DL (8.5-10.1) Phosphorus Level 6.0 MG/DL (2.5-4.9) H Magnesium Level 3.8 MG/DL (1.5-2.4) H Total Bilirubin 0.5 MG/DL (0.2-1.0) 1.3 MG/DL (0.2-1.0) H Aspartate Amino Transf (AST/SGOT) 46 U/L (15-37) H 67 U/L (15-37) H Alanine Aminotransferase (ALT/SGPT) 47 U/L (12-78) 37 U/L (12-78) Alkaline Phosphatase 51 U/L (46-116) 55 U/L (46-116) Total Creatine Kinase 557 U/L (26-140) H 1095 U/L (26-308) H Creatine Kinase MB 0.7 NG/ML (0.0-3.6) Creatine Kinase MB Relative Index 0.1 Troponin I 0.124 ng/mL (0.000-0.056) Total Protein 4.9 G/DL (6.4-8.2) L 5.3 G/DL (6.4-8.2) L Albumin 1.7 G/DL (3.4-5.0) L 1.9 G/DL (3.4-5.0) L Globulin 3.2 g/dL 3.4 g/dL Arterial Blood pH 7.191 (7.350-7.450) Arterial Blood Partial Pressure CO2 21.8 mmHg (35.0-45.0) *L Arterial Blood Partial Pressure O2 92.4 mmHg (75.0-100.0) Arterial Blood HCO3 8.2 mmol/L (22.0-26.0) *L Arterial Blood Oxygen Saturation 94.1 % (95-100) L Arterial Blood Base Excess -18.1 (-2-2) *L Harvey Test Positive Anion Gap 23 mmol/L (5-15) H Uric Acid 7.4 MG/DL (2.6-7.2) H Direct Bilirubin 0.2 MG/DL (0.0-0.3) C-Reactive Protein, Quantitative 66.9 mg/dL (0.00-0.90) H Albumin/Globulin Ratio 0.6 (1.0-2.7) L Urine Color Suze Urine Appearance Cloudy Urine pH 5 (4.5-8.0) Urine Specific [place] 1.020 (1.005-1.035) Urine Protein 4+ (NEGATIVE) H Urine Glucose (UA) 1+ (NEGATIVE) H Urine Ketones 1+ (NEGATIVE) H Urine Blood 5+ (NEGATIVE) H Urine Nitrite Positive (NEGATIVE) H Urine Bilirubin 1+ (NEGATIVE) H Urine Ictotest Negative (NEGATIVE) Urine Urobilinogen 1 MG/DL (0.0-1.0) H Urine Leukocyte Esterase 2+ (NEGATIVE) H Urine RBC Tntc /HPF (0 - 0) H Urine WBC 2-4 /HPF (0 - 0) Urine Squamous Epithelial Cells None /LPF (NONE/OCC) Urine Bacteria Many /HPF (NONE) H Urine Coarse Granular Casts 5-10 /LPF (NONE) H Test 09/07/18 18:05 09/07/18 20:00 09/07/18 20:32 09/08/18 00:30 Arterial Blood pH 7.116 (7.350-7.450) 7.113 (7.350-7.450) 7.337 (7.350-7.450) Arterial Blood Partial Pressure CO2 27.0 mmHg (35.0-45.0) L 40.1 mmHg (35.0-45.0) 26.9 mmHg (35.0-45.0) L Arterial Blood Partial Pressure O2 76.3 mmHg (75.0-100.0) 82.7 mmHg (75.0-100.0) 228.3 mmHg (75.0-100.0) H Arterial Blood HCO3 8.5 mmol/L (22.0-26.0) *L 12.5 mmol/L (22.0-26.0) *L 14.1 mmol/L (22.0-26.0) *L Arterial Blood Oxygen Saturation 90.1 % (95-100) L 92.0 % (95-100) L 99.2 % (95-100) Arterial Blood Base Excess -19.4 (-2-2) *L -16.1 (-2-2) *L -10.2 (-2-2) *L Harvey Test Positive Positive Positive Urine Color Yellow Urine Appearance Cloudy Urine pH 5 (4.5-8.0) Urine Specific [place] 1.015 (1.005-1.035) Urine Protein 3+ (NEGATIVE) H Urine Glucose (UA) Negative (NEGATIVE) Urine Ketones 1+ (NEGATIVE) H Urine Blood 5+ (NEGATIVE) H Urine Nitrite Negative (NEGATIVE) Urine Bilirubin Negative (NEGATIVE) Urine Urobilinogen Normal MG/DL (0.0-1.0) Urine Leukocyte Esterase 1+ (NEGATIVE) H Urine RBC 10-15 /HPF (0 - 0) H Urine WBC 0-2 /HPF (0 - 0) Urine Squamous Epithelial Cells None /LPF (NONE/OCC) Urine Bacteria Moderate /HPF (NONE) H Urine Granular Casts 5-10 /LPF (NONE) H Urine Eosinophils None seen (NONE SEEN) Urine Random Sodium 42 mmol/L (20-110) Urine Potassium Timed 42 mmol/L (12-62) Test 09/08/18 04:00 09/08/18 05:00 09/08/18 10:00 Arterial Blood pH 7.557 (7.350-7.450) Arterial Blood Partial Pressure CO2 19.3 mmHg (35.0-45.0) *L Arterial Blood Partial Pressure O2 75.0 mmHg (75.0-100.0) Arterial Blood HCO3 16.8 mmol/L (22.0-26.0) *L Arterial Blood Oxygen Saturation 95.4 % (95-100) Arterial Blood Base Excess -3.7 (-2-2) L Harvey Test Positive White Blood Count 3.6 K/UL (4.8-10.8) #L Red Blood Count 3.48 M/UL (4.70-6.10) L Hemoglobin 10.6 G/DL (14.2-18.0) L Hematocrit 32.8 % (42.0-52.0) L Mean Corpuscular Volume 94 FL (80-99) Mean Corpuscular Hemoglobin 30.4 PG (27.0-31.0) Mean Corpuscular Hemoglobin Concent 32.2 G/DL (32.0-36.0) Red Cell Distribution Width 13.6 % (11.6-14.8) Platelet Count 139 K/UL (150-450) L Mean Platelet Volume 8.7 FL (6.5-10.1) Neutrophils (%) (Auto) % (45.0-75.0) Lymphocytes (%) (Auto) % (20.0-45.0) Monocytes (%) (Auto) % (1.0-10.0) Eosinophils (%) (Auto) % (0.0-3.0) Basophils (%) (Auto) % (0.0-2.0) Sodium Level 139 MMOL/L (136-145) Potassium Level 4.1 MMOL/L (3.5-5.1) Chloride Level 106 MMOL/L (98-107) Carbon Dioxide Level 18 MMOL/L (21-32) L Anion Gap 15 mmol/L (5-15) Blood Urea Nitrogen 56 mg/dL (7-18) H Creatinine 3.8 MG/DL (0.55-1.30) H Estimat Glomerular Filtration Rate 16.3 mL/min (>60) Glucose Level 108 MG/DL (74-106) H Lactic Acid Level 5.70 mmol/L (0.4-2.0) H 4.80 mmol/L (0.66-2.22) H Uric Acid 6.7 MG/DL (2.6-7.2) Calcium Level 8.4 MG/DL (8.5-10.1) L Phosphorus Level 3.5 MG/DL (2.5-4.9) Magnesium Level 2.8 MG/DL (1.8-2.4) H Total Bilirubin 0.9 MG/DL (0.2-1.0) Gamma Glutamyl Transpeptidase 11 U/L (5-85) Aspartate Amino Transf (AST/SGOT) 70 U/L (15-37) H Alanine Aminotransferase (ALT/SGPT) 50 U/L (12-78) Alkaline Phosphatase 54 U/L (46-116) Total Creatine Kinase 1127 U/L (26-308) H Troponin I 0.316 ng/mL (0.000-0.056) Pro-B-Type Natriuretic Peptide 9556 pg/mL (0-125) H Total Protein 5.3 G/DL (6.4-8.2) L Albumin 2.3 G/DL (3.4-5.0) L Globulin 3.0 g/dL Albumin/Globulin Ratio 0.8 (1.0-2.7) L Thyroid Stimulating Hormone (TSH) 0.707 uiU/mL (0.358-3.740) Cortisol AM Sample Pending Random Vancomycin Level 15.7 ug/mL Po Li MD Sep 08, 2018 11:08
[2018-09-08] MEDS: Piperacillin/Tazobactam 3.375 GM in D5W 110 ML IVPB SCH ×2 (12:32→23:45)
--- NOTE | 2018-09-08 12:48 | Diagnostic Imaging Report ---
Indication: Dyspnea Technique: One view of the chest Comparison: 08/30/2018 Findings: Stable satisfactory position of endotracheal tube. There is atelectasis and consolidation of the left lung base, unchanged. Heart size is normal. There is decreasing right basilar opacity Impression: Slightly decreased right basilar opacity, likely reflects decreased pleural fluid Otherwise stable findings as described
--- NOTE | 2018-09-08 15:00 | Consultation ---
DATE OF CONSULTATION: 09/08/2018 CARDIOLOGY CONSULTATION CONSULTING PHYSICIAN: Jasbir Madsen M.D. REFERRING PHYSICIAN: Jasmeet Reynoso D.O. REASON FOR CONSULTATION: Tachycardia, heart rate in 140s as well as hypotension. HISTORY OF PRESENT ILLNESS: The patient is a 62-year-old gentleman with history of dysphagia, status post PEG placement, as well as dementia, was brought in from the nursing skilled facility for altered mental status as the patient was not normal self. The patient also has diabetes and schizophrenia. The patient was seen in the ER and was found to be severely hypertensive and was essentially in septic shock. The patient was also tachycardic with heart rate of 150, but was in sinus tachycardia. The patient also had severe hyperkalemia with potassium of 8.4, but could not get dialysis as the patient was severely hypotensive. The patient also had lactic acidosis with a lactic acid of 13.6, had a troponin elevation of 0.124. By the time of my evaluation, the patient is intubated in intensive care unit and is unable to provide any information. He is on max dose of Levophed. REVIEW OF SYSTEMS: Cannot be obtained. PAST MEDICAL HISTORY: As mentioned above. FAMILY HISTORY: Noncontributory. SOCIAL HISTORY: long-term resident. Does not smoke or drink alcohol. PHYSICAL EXAMINATION: VITAL SIGNS: Blood pressure is 84/48 despite max dose of Levophed. Pulse is 120 to 140. Respirations is 18, he is orally intubated. LUNGS: Coarse rhonchi. CARDIOVASCULAR: Shows regular S1 and S2. Tachycardic. ABDOMEN: Soft, status post G-tube. EXTREMITIES: No pitting edema. LABORATORY AND DIAGNOSTIC DATA: His potassium was initially 8.4, but that was corrected today. Sodium 139, potassium 4.1, BUN 56, creatinine 3.8, and glucose 108. His troponin was elevated at 0.124 with a CK of 557. CK today is 1095. His white count is 3.6, hemoglobin 10.7, hematocrit 32.8, and platelet count 139. ASSESSMENT AND PLAN: 1. Septic shock with high lactic acid. The patient already received 8 L of IV fluids and is getting 150 mL an hour of normal saline. The patient already intubated. We will add Lewis-Synephrine to his medical regimen. Avoid dopamine in view of the patient's tachycardia. 2. Tachycardia with heart rate in 140s. This is sinus tachycardia, likely due to the patient's septic shock and dehydration. No evidence of atrial fibrillation or any other supraventricular tachycardia. It is of note the patient already had an echocardiogram showing ejection fraction of 75%. 3. Troponin elevation, likely due to renal failure. Echocardiogram showed ejection fraction of 75%. We will repeat cardiac enzymes. 4. Rhabdomyolysis with CPK in thousands. That may be contributing to the patient's renal failure. We will repeat CPK as well as cardiac enzymes. 5. Septic shock. The patient is on IV antibiotic as well as IV fluids. 6. Acute renal failure and severe hyperkalemia. Further evaluation by Dr. Smalls as well as ID. 7. Dysphagia, status post PEG placement. Thank you very much for allowing me to participate in the care of this patient. Please do not hesitate to contact me for any questions regarding my evaluation. Jasbir Madsen M.D. DR: MARLY JOB#: [id number] CC:
[2018-09-08] MEDS: NovoLOG Insulin Flexpen SUBQ SCH ×3 (15:12→20:36)
[2018-09-08] MEDS ORDERED: Vancomycin 750mg/NS 250ml IVPB ONE (16:00)
--- NOTE | 2018-09-08 16:45 | History and Physical Report ---
DATE OF ADMISSION: 09/07/2018 DATE AND TIME SEEN: 09/08/2018 at 1 p.m. CONSULTANTS: 1. Po Li M.D. 2. Josesito Smalls M.D. 3. Jasbir Madsen M.D. 4. Virgie Mcdermott M.D. 5. Isreal Lynne M.D. CHIEF COMPLAINT: Weakness, lethargy, respiratory failure, sepsis, shock, renal failure, right hip wound. BRIEF HISTORY: The patient is a 62-year-old male from [facility], presented with above-mentioned diagnosis. In the ER, was very short of breath. Shortly after was intubated and admitted to ICU. Currently intubated, sedated, lethargic in ICU, not responding to questions. REVIEW OF SYSTEMS: Not available. PAST MEDICAL HISTORY: Malnutrition, ATN. PAST SURGICAL HISTORY: G-tube. ALLERGIES: Denies. SOCIAL HISTORY: Unable to obtain secondary to the patient's condition. PHYSICAL EXAMINATION: GENERAL: Intubated, sedated, lethargic, in ICU, nonverbal. VITAL SIGNS: Temperature is not given, pulse 123, respirations 16, blood pressure 100/50. CARDIOVASCULAR: No murmur. LUNGS: Distant and clear. ABDOMEN: Bowel sounds positive. EXTREMITIES: Show no cyanosis, clubbing, or edema. NEUROLOGIC: The patient is flaccid in bed, not following directions. LABORATORY AND DIAGNOSTIC DATA: White count 3.6, hemoglobin and hematocrit 10/32, platelets 139. BMP shows CO2 18, BUN and creatinine 56/3.8, glucose 108. Urinalysis show 1+ leukocyte esterase, initially 2+, now 1+. Urine tox not given. MEDICATIONS: Include vancomycin, insulin, Zosyn, IV fluid, Risperdal, amikacin, pantoprazole, chlorhexidine, albumin, norepinephrine, lorazepam. ASSESSMENT: UTI, sepsis shock, respiratory failure, anemia, renal failure, right hip wound. PLAN: Wound care. Vent per Pulmonary. Antibiotic per Infectious Disease. Blood pressure and blood sugar control. Nephrology followup. Dietary followup. CBC and BMP in the morning. Jasmeet Reynoso D.O. DR: YAIR JOB#: [id number] CC:
[2018-09-08] MEDS ORDERED: NovoLOG Insulin Flexpen SUBQ SCH (16:50)
[2018-09-08] MEDS: Acetaminophen 650mg/20.3ml NG PRN (17:06)
--- NOTE | 2018-09-08 17:09 | Nephrology Progress Note ---
Assessment/Plan Problem List: (1) ATN (acute tubular necrosis) (2) Septic shock (3) Lactic acid acidosis (4) Metabolic acidosis (5) Hyperkalemia (6) G tube feedings (7) Acute respiratory failure Assessment over all improved: presented with Shock , likely septic Acute renal failure Acute metabolic acidosis Hyperkalemia PEG Recent Pneumonia Plan plan: pulmonary support Fluid challenge Silva IV Bicarb stop kayexelate Pressors as needed antibiotics monitor renal parameters and ABG no need for dialysis as renal failure improving Subjective ROS Limited/Unobtainable: Yes Objective Objective Last 24 Hour Vital Signs Date Time Temp Pulse Resp B/P (MAP) Pulse Ox O2 Delivery O2 Flow Rate FiO2 09/08/18 17:05 119 17 45 09/08/18 16:08 45 09/08/18 16:00 45 09/08/18 16:00 Mechanical Ventilator 09/08/18 16:00 99.9 118 22 106/68 98 Mechanical Ventilator 45 09/08/18 16:00 120 09/08/18 15:30 120 16 118/71 98 Mechanical Ventilator 45 09/08/18 15:23 118 16 45 09/08/18 15:10 108/57 09/08/18 15:00 120 16 117/70 98 Mechanical Ventilator 45 09/08/18 14:30 121 16 115/66 98 Mechanical Ventilator 45 09/08/18 14:00 120 16 105/58 98 Mechanical Ventilator 45 09/08/18 13:32 123 16 45 09/08/18 13:30 124 17 118/66 97 Mechanical Ventilator 45 09/08/18 13:00 125 16 115/58 97 Mechanical Ventilator 45 09/08/18 12:33 100/50 09/08/18 12:30 126 17 105/59 98 Mechanical Ventilator 45 09/08/18 12:00 122 09/08/18 12:00 Mechanical Ventilator 09/08/18 12:00 100.4 126 16 86/46 99 Mechanical Ventilator 45 09/08/18 11:49 45 09/08/18 11:45 122 16 45 09/08/18 11:30 125 16 100/59 98 Mechanical Ventilator 45 09/08/18 11:00 122 18 87/57 99 Mechanical Ventilator 45 09/08/18 10:30 122 20 69/45 99 Mechanical Ventilator 45 09/08/18 10:00 122 20 72/42 98 Mechanical Ventilator 45 09/08/18 09:30 128 20 83/48 98 Mechanical Ventilator 45 09/08/18 09:29 124 20 45 09/08/18 09:09 84/48 09/08/18 09:00 124 20 85/53 98 Mechanical Ventilator 45 09/08/18 08:30 97.6 127 20 87/62 99 Mechanical Ventilator 45 09/08/18 08:00 129 20 102/49 98 Mechanical Ventilator 45 09/08/18 08:00 45 09/08/18 08:00 129 09/08/18 08:00 Mechanical Ventilator 09/08/18 07:30 129 20 89/48 100 Mechanical Ventilator 45 09/08/18 07:13 131 20 45 09/08/18 07:00 130 20 92/51 100 Mechanical Ventilator 45 09/08/18 06:00 133 20 91/59 100 Mechanical Ventilator 45 09/08/18 06:00 91/59 09/08/18 05:24 132 21 45 09/08/18 05:00 89/63 09/08/18 05:00 132 22 89/63 100 Mechanical Ventilator 45 09/08/18 04:30 133 21 99/75 100 Mechanical Ventilator 45 09/08/18 04:00 97.9 134 20 69/56 100 Mechanical Ventilator 50 09/08/18 04:00 67/49 09/08/18 04:00 132 09/08/18 04:00 50 09/08/18 04:00 Mechanical Ventilator 09/08/18 03:48 138 21 50 09/08/18 03:30 138 21 112/82 100 Mechanical Ventilator 50 09/08/18 03:00 141 21 80/57 99 Mechanical Ventilator 50 09/08/18 02:30 140 21 74/51 99 Mechanical Ventilator 50 09/08/18 02:00 142 23 82/56 99 Mechanical Ventilator 50 09/08/18 01:30 137 20 89/65 100 Mechanical Ventilator 50 09/08/18 01:00 140 20 98/64 100 Mechanical Ventilator 50 09/08/18 00:48 126 20 50 09/08/18 00:30 126 20 88/59 100 Mechanical Ventilator 50 09/08/18 00:00 Mechanical Ventilator 09/08/18 00:00 50 09/08/18 00:00 140 09/08/18 00:00 98.3 121 20 98/64 99 Mechanical Ventilator 50 09/07/18 23:30 112 20 89/65 100 Mechanical Ventilator 60 09/07/18 23:24 114 20 100 09/07/18 23:00 112 20 115/79 100 Mechanical Ventilator 70 09/07/18 22:30 113 20 127/84 100 Mechanical Ventilator 100 09/07/18 22:04 124 45 Nasal Cannula 15.0 100 09/07/18 22:00 112 20 119/87 100 Mechanical Ventilator 100 09/07/18 22:00 Mechanical Ventilator 09/07/18 21:45 113 20 100 09/07/18 21:45 100 09/07/18 21:30 125 20 59/39 100 Non-Rebreather 15.0 09/07/18 21:00 127 34 100/61 97 Non-Rebreather 15.0 09/07/18 20:30 120 35 103/62 98 Non-Rebreather 15.0 09/07/18 20:00 97.6 128 34 93/55 80 Non-Rebreather 15.0 09/07/18 20:00 120 09/07/18 20:00 Non-Rebreather 15.0 09/07/18 19:30 120 36 105/59 96 Non-Rebreather 15.0 09/07/18 19:00 117 41 99/59 93 Non-Rebreather 15.0 09/07/18 18:30 117 36 105/56 95 Non-Rebreather 15.0 09/07/18 18:00 116 38 113/69 95 Venturi Mask 12.0 55 09/07/18 17:51 Venturi Mask 09/07/18 17:51 Venturi Mask 10.0 09/07/18 17:33 100.1 115 33 75/47 98 Nasal Cannula 4.0 09/07/18 17:30 119 36 93/52 94 Venturi Mask 12.0 55 Intake and Output 09/07/18 09/08/18 19:00 07:00 Intake Total 6350 ml 6181.30 ml Output Total 250 ml 1705 ml Balance 6100 ml 4476.30 ml Intake Free Water 200 ml 400 ml IV Total 6150 ml 5781.30 ml Output Urine Total 250 ml 1705 ml # Voids 1 # Bowel Movements 1 Laboratory Tests 09/07/18 18:05: Arterial Blood pH 7.116*L, Arterial Blood Partial Pressure CO2 27.0L, Arterial Blood Partial Pressure O2 76.3, Arterial Blood HCO3 8.5*L, Arterial Blood Oxygen Saturation 90.1L, Arterial Blood Base Excess -19.4*L, Harvey Test Positive 09/07/18 20:00: Urine Color Yellow, Urine Appearance Cloudy, Urine pH 5, Urine Specific [place] 1.015, Urine Protein 3+H, Urine Glucose (UA) Negative, Urine Ketones 1+H, Urine Blood 5+H, Urine Nitrite Negative, Urine Bilirubin Negative, Urine Urobilinogen Normal, Urine Leukocyte Esterase 1+H, Urine RBC 10-15H, Urine WBC 0-2, Urine Squamous Epithelial Cells None, Urine Bacteria ModerateH, Urine Granular Casts 5 -10H, Urine Eosinophils None seen, Urine Random Sodium 42, Urine Potassium Timed 42 09/07/18 20:32: Arterial Blood pH 7.113*L, Arterial Blood Partial Pressure CO2 40.1, Arterial Blood Partial Pressure O2 82.7, Arterial Blood HCO3 12.5*L, Arterial Blood Oxygen Saturation 92.0L, Arterial Blood Base Excess -16.1*L, Harvey Test Positive 09/08/18 00:30: Arterial Blood pH 7.337L, Arterial Blood Partial Pressure CO2 26.9L, Arterial Blood Partial Pressure O2 228.3H, Arterial Blood HCO3 14.1*L, Arterial Blood Oxygen Saturation 99.2, Arterial Blood Base Excess -10.2*L, Harvey Test Positive 09/08/18 04:00: Arterial Blood pH 7.557*H, Arterial Blood Partial Pressure CO2 19.3*L, Arterial Blood Partial Pressure O2 75.0, Arterial Blood HCO3 16.8*L, Arterial Blood Oxygen Saturation 95.4, Arterial Blood Base Excess -3.7L, Harvey Test Positive 09/08/18 05:00: White Blood Count 3.6#L, Red Blood Count 3.48L, Hemoglobin 10.6L, Hematocrit 32.8L, Mean Corpuscular Volume 94, Mean Corpuscular Hemoglobin 30.4, Mean Corpuscular Hemoglobin Concent 32.2, Red Cell Distribution Width 13.6, Platelet Count 139L, Mean Platelet Volume 8.7, Neutrophils (%) (Auto) , Lymphocytes (%) ( Auto) , Monocytes (%) (Auto) , Eosinophils (%) (Auto) , Basophils (%) (Auto) , Sodium Level 139, Potassium Level 4.1, Chloride Level 106, Carbon Dioxide Level 18L, Anion Gap 15, Blood Urea Nitrogen 56H, Creatinine 3.8H, Estimat Glomerular Filtration Rate 16.3, Glucose Level 108H, Lactic Acid Level 5.70H, Uric Acid 6.7 , Calcium Level 8.4L, Phosphorus Level 3.5, Magnesium Level 2.8H, Total Bilirubin 0.9, Gamma Glutamyl Transpeptidase 11, Aspartate Amino Transf (AST/ SGOT) 70H, Alanine Aminotransferase (ALT/SGPT) 50, Alkaline Phosphatase 54, Total Creatine Kinase 1127H, Troponin I 0.316H, Pro-B-Type Natriuretic Peptide 9556H, Total Protein 5.3L, Albumin 2.3L, Globulin 3.0, Albumin/Globulin Ratio 0.8L, Thyroid Stimulating Hormone (TSH) 0.707, Cortisol AM Sample 16.7 09/08/18 10:00: Lactic Acid Level 4.80H, Random Vancomycin Level 15.7 Height (Feet): 5 Height (Inches): 6.00 Weight (Pounds): 124 General Appearance: no apparent distress EENT: other - on vent Cardiovascular: tachycardia Respiratory/Chest: decreased breath sounds Abdomen: distended, other - PEG Extremities: other - mottled Josesito Smalls MD Sep 08, 2018 17:09
--- NOTE | 2018-09-08 17:30 | Cardiology Report ---
APPROVED REPORT EXAM: Two-dimensional and M-mode echocardiogram with Doppler and color Doppler. INDICATION Left ventricular fuction M-Mode DIMENSIONS IVSd1.2 (0.7-1.1cm)Left Atrium (MM)3.3 (1.6-4.0cm) LVDd4.3 (3.5-5.6cm)Aortic Root3.1 (2.0-3.7cm) PWd1.4 (0.7-1.1cm)Aortic Cusp Exc.2.1 (1.5-2.0cm) LVDs2.4 (2.5-4.0cm) PWs1.8 cm Other Information Technically limited study due to pt's ventilator. Normal left ventricular chamber size, normal systolic function and wall motion to extent visualized. Left ventricular ejection fraction estimated to be 60-65 %. Mild left ventricular hypertrophy by 2D. No evidence of pericardial effusion. Left atrial size at upper limits of normal. Right cardiac chamber sizes are within normal limits. Focal aortic valve sclerosis with adequate cusp excursion. Thickened mitral valve leaflets with normal excursion. Mitral annulus and aortic root calcification. Pulmonic valve not well visualized. Normal tricuspid valve structure. Subcotal views not obtained. A color flow and spectral Doppler study was performed and revealed: No aortic regurgitation. Mild - moderate mitral regurgitation. Mitral diastolic velocities suggest reduced left ventricular relaxation c/w mild LV diastolic dysfunction (Grade I). Mild tricuspid regurgitation. Tricuspid systolic velocities suggests peak right ventricular systolic pressure of 42 mmHg, consistent with mild to moderate pulmonary hypertension.
[2018-09-08] MEDS: Dyna-Hex 2% Top Sol 2oz TOPIC SCH (20:11)
[2018-09-08] MEDS: Norepinephrine Bitartrate 8 MG in D5W 500ml 550 ML IV SCH ×2 (21:05→23:22)
[2018-09-09] VITALS (50 sets, daily range): BP systolic 74–118; BP diastolic 51–97
[2018-09-09] MEDS: NovoLOG Insulin Flexpen SUBQ SCH ×6 (01:06→20:39)
[2018-09-09] MEDS: Sodium Bicarbonate 100 ML in D5W 1000ml 1,000 ML IV SCH (02:22)
[2018-09-09 05:46] LABS: HEMATOCRIT 28.8 % (42.0-52.0); HEMOGLOBIN 9.8 G/DL (14.2-18.0); MEAN CORPUSCULAR VOLUME 91 FL (80-99); PLATELET COUNT 133 K/UL (150-450); RED BLOOD COUNT 3.18 M/UL (4.70-6.10); RED CELL DISTRIBUTION WIDTH 12.7 % (11.6-14.8); WHITE BLOOD COUNT 8.2 K/UL (4.8-10.8)
[2018-09-09 06:38] LABS: PHOSPHORUS 2.7 MG/DL (2.5-4.9)
[2018-09-09 06:51] LABS: ALANINE AMINOTRANSFERASE 43 U/L (12-78); ALBUMIN 2.1 G/DL (3.4-5.0); ALBUMIN/GLOBULIN RATIO 0.7 (1.0-2.7); ALKALINE PHOSPHATASE 66 U/L (46-116); ANION GAP 12 mmol/L (5-15); ASPARTATE AMINO TRANSFERASE 58 U/L (15-37); BILIRUBIN,TOTAL 0.9 MG/DL (0.2-1.0); BLOOD UREA NITROGEN 35 mg/dL (7-18); CALCIUM 7.7 MG/DL (8.5-10.1); CARBON DIOXIDE 22 MMOL/L (21-32); CHLORIDE 98 MMOL/L (98-107); CREATINE KINASE 1189 U/L (26-308); CREATININE 2.4 MG/DL (0.55-1.30); SODIUM 132 MMOL/L (136-145)
[2018-09-09 07:09] LABS: POTASSIUM 2.5 MMOL/L (3.5-5.1)
[2018-09-09] MEDS: Pantoprazole Inj IVP SCH ×2 (08:30→20:36)
[2018-09-09] MEDS: Heparin 5000 units/ml inj SUBQ SCH ×2 (08:31→20:38)
[2018-09-09] MEDS: D5NS w/KCl 40mEq 1000ml 1,000 ML IV SCH ×2 (08:35→21:50)
[2018-09-09] MEDS: Acetaminophen 650mg/20.3ml NG PRN (09:13)
--- NOTE | 2018-09-09 10:05 | Pulmonolgy Critical Care Note ---
Critical Care - Asmt/Plan Problems: (1) Septic shock (2) ATN (acute tubular necrosis) (3) Hyperkalemia (4) Metabolic acidosis Respiratory: monitor respiratory rate, adjust FIO2, CXR Cardiac: continue to monitor HR/BP Renal: F/U I&O, keep IV fluid, other - dc bicarb drip Infectious Disease: check cultures, continue antibiotics Gastrointestinal: continue feedings/current rate Endocrine: monitor blood sugar, check HgA1C, continue sliding scale insulin Hematologic: monitor H/H, transfuse if hgb<8.5 Neurologic: PRN Ativan, PRN Morphine, keep patient comfortable Affect: PRN ativan Prophylaxis: Heparin Disposition: keep in ICU Time Spent (Minutes): 40 Notes 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 Critical Care - Objective Last 24 Hour Vital Signs Date Time Temp Pulse Resp B/P (MAP) Pulse Ox O2 Delivery O2 Flow Rate FiO2 09/09/18 09:30 108 16 98/53 99 Mechanical Ventilator 45 09/09/18 09:00 111 16 97/70 99 Mechanical Ventilator 45 09/09/18 08:30 104 16 103/68 99 Mechanical Ventilator 45 09/09/18 08:00 45 09/09/18 08:00 Mechanical Ventilator 09/09/18 08:00 100.3 115 17 110/82 99 Mechanical Ventilator 45 09/09/18 07:36 117 15 45 09/09/18 07:30 115 16 90/75 99 Mechanical Ventilator 45 09/09/18 07:00 109 16 88/60 99 Mechanical Ventilator 45 09/09/18 06:30 104 16 95/75 99 Mechanical Ventilator 45 09/09/18 06:00 88/61 09/09/18 06:00 112 16 84/51 99 Mechanical Ventilator 45 09/09/18 05:30 107 16 112/79 99 Mechanical Ventilator 45 09/09/18 05:00 107 18 100/73 99 Mechanical Ventilator 45 09/09/18 05:00 100/73 09/09/18 04:57 110 20 45 09/09/18 04:30 112 18 81/63 99 Mechanical Ventilator 45 09/09/18 04:00 45 09/09/18 04:00 108 09/09/18 04:00 100/74 09/09/18 04:00 Mechanical Ventilator 09/09/18 04:00 98.0 112 18 100/74 99 Mechanical Ventilator 45 09/09/18 03:30 112 18 105/74 99 Mechanical Ventilator 45 09/09/18 03:24 103 29 45 09/09/18 03:15 112 18 89/55 99 Mechanical Ventilator 45 09/09/18 03:00 108 18 78/60 100 Mechanical Ventilator 45 09/09/18 03:00 78/60 09/09/18 02:45 112 17 74/58 98 Mechanical Ventilator 45 09/09/18 02:30 116 16 79/59 98 Mechanical Ventilator 45 09/09/18 02:00 87/60 09/09/18 02:00 112 17 87/60 98 Mechanical Ventilator 45 09/09/18 01:30 115 16 45 09/09/18 01:30 123 17 88/65 98 Mechanical Ventilator 45 09/09/18 01:00 92/62 09/09/18 01:00 115 16 92/62 100 Mechanical Ventilator 45 09/09/18 00:30 112 18 92/60 100 Mechanical Ventilator 45 09/09/18 00:00 Mechanical Ventilator 09/09/18 00:00 99.0 112 18 98/69 100 Mechanical Ventilator 45 09/09/18 00:00 115 09/09/18 00:00 45 09/09/18 00:00 100/57 09/08/18 23:45 112 18 95/66 100 Mechanical Ventilator 45 09/08/18 23:30 113 15 81/60 98 Mechanical Ventilator 45 09/08/18 23:22 94/67 09/08/18 23:17 116 16 45 09/08/18 23:15 123 15 77/57 98 Mechanical Ventilator 45 09/08/18 23:00 115 16 94/67 100 Mechanical Ventilator 45 09/08/18 23:00 94/60 09/08/18 22:45 115 16 105/71 100 Mechanical Ventilator 45 09/08/18 22:30 115 16 108/75 100 Mechanical Ventilator 45 09/08/18 22:15 130 20 95/68 98 Mechanical Ventilator 45 09/08/18 22:00 118 16 97/67 100 Mechanical Ventilator 45 09/08/18 22:00 97/67 09/08/18 21:45 117 16 100/67 100 Mechanical Ventilator 45 09/08/18 21:30 118 17 99/65 100 Mechanical Ventilator 45 09/08/18 21:30 117 16 45 09/08/18 21:15 117 17 118/78 100 Mechanical Ventilator 45 09/08/18 21:05 116/80 09/08/18 21:00 100/64 09/08/18 21:00 129 20 100/64 97 Mechanical Ventilator 45 09/08/18 20:45 120 16 116/80 100 Mechanical Ventilator 45 09/08/18 20:30 119 16 107/72 100 Mechanical Ventilator 45 09/08/18 20:15 129 16 116/77 97 Mechanical Ventilator 45 09/08/18 20:00 Mechanical Ventilator 09/08/18 20:00 100.1 120 16 111/76 100 Mechanical Ventilator 45 09/08/18 20:00 120 09/08/18 20:00 111/76 09/08/18 20:00 45 09/08/18 19:45 127 19 118/75 98 Mechanical Ventilator 45 09/08/18 19:30 121 16 45 09/08/18 19:30 121 16 106/67 100 Mechanical Ventilator 45 09/08/18 19:15 121 16 113/73 100 Mechanical Ventilator 45 09/08/18 19:00 100.5 124 17 97/60 99 Mechanical Ventilator 45 09/08/18 18:50 107/70 09/08/18 18:30 124 19 102/55 99 Mechanical Ventilator 45 09/08/18 18:00 122 19 107/74 100 Mechanical Ventilator 45 09/08/18 18:00 122 18 107/74 100 Mechanical Ventilator 45 09/08/18 18:00 107/74 09/08/18 17:30 121 19 114/74 100 Mechanical Ventilator 45 09/08/18 17:05 116/76 09/08/18 17:05 119 17 45 09/08/18 17:00 121 16 116/76 98 Mechanical Ventilator 45 09/08/18 16:30 126 16 104/65 98 Mechanical Ventilator 45 09/08/18 16:08 45 09/08/18 16:00 45 09/08/18 16:00 Mechanical Ventilator 09/08/18 16:00 99.9 118 22 106/68 98 Mechanical Ventilator 45 09/08/18 16:00 120 09/08/18 16:00 114/69 09/08/18 15:30 120 16 118/71 98 Mechanical Ventilator 45 09/08/18 15:23 118 16 45 09/08/18 15:10 108/57 09/08/18 15:00 120 16 117/70 98 Mechanical Ventilator 45 09/08/18 14:30 121 16 115/66 98 Mechanical Ventilator 45 09/08/18 14:00 123/71 09/08/18 14:00 120 16 105/58 98 Mechanical Ventilator 45 09/08/18 13:32 123 16 45 09/08/18 13:30 124 17 118/66 97 Mechanical Ventilator 45 09/08/18 13:30 118/66 09/08/18 13:00 115/59 09/08/18 13:00 125 16 115/58 97 Mechanical Ventilator 45 09/08/18 12:33 100/50 09/08/18 12:32 109/59 09/08/18 12:30 126 17 105/59 98 Mechanical Ventilator 45 09/08/18 12:10 86/46 09/08/18 12:00 122 09/08/18 12:00 Mechanical Ventilator 09/08/18 12:00 100.4 126 16 86/46 99 Mechanical Ventilator 45 09/08/18 11:49 45 09/08/18 11:48 100/59 09/08/18 11:45 122 16 45 09/08/18 11:30 125 16 100/59 98 Mechanical Ventilator 45 09/08/18 11:00 122 18 87/57 99 Mechanical Ventilator 45 09/08/18 10:30 122 20 69/45 99 Mechanical Ventilator 45 09/08/18 10:30 69/45 Status: awake Condition: critical HEENT: atraumatic Lungs: clear Heart: HR/BP stable Abdomen: soft, non-tender, feeding tube Extremities: no C/C/E Decubiti: location Micro: Microbiology Date/Time Source Procedure Growth Status 09/07/18 13:20 Blood Blood Culture - Preliminary NO GROWTH AFTER 24 HOURS Resulted 09/07/18 13:05 Blood Blood Culture - Preliminary NO GROWTH AFTER 24 HOURS Resulted 09/07/18 20:00 Sputum Gram Stain - Final Resulted 09/07/18 20:00 Sputum Culture - Preliminary Gram Positive Cocci Resulted 09/07/18 15:05 Nasal Nares MRSA Culture - Final NO METHICILLIN RESISTANT STAPH AUREUS... Complete 09/07/18 13:36 Nasal Nares Influenza Types A,B Antigen (JIMY) - Final Complete 09/07/18 20:00 Urine,Clean Catch Urine Culture - Preliminary NO GROWTH AFTER 24 HOURS Resulted 09/07/18 15:53 Urine,Clean Catch Urine Culture - Preliminary NO GROWTH AFTER 24 HOURS Resulted 09/07/18 15:05 Rectum VRE Culture - Final Enterococcus Faecalis - Vre Complete 09/07/18 15:05 Rectum - Final NO CARBAPENEM-RESISTANT ENTEROBACTERI... Complete Accucheck: 166 Critical Care - Subjective ROS Limited/Unobtainable: Yes Interval Events: improving, opens eyes Condition: critical FI02: 45 Vent Support Breath Rate: 16 Vent Support Mode: AC Vent Tidal Volume: 600 Sputum Amount: Small PEEP: 0.0 PIP: 21 I&O: Intake and Output 09/08/18 09/09/18 19:00 07:00 Intake Total 5362.30 ml 1837.75 ml Output Total 2845 ml 1750 ml Balance 2517.30 ml 87.75 ml IV Total 5362.30 ml 1837.75 ml Output Urine Total 2845 ml 1750 ml # Bowel Movements 5 1 CXR: ELIOT, ET in good position ET-Tube: 7.5 ET Position: 24 Labs: Laboratory Tests Test 09/08/18 17:15 09/08/18 21:45 09/09/18 04:45 09/09/18 08:20 Lactic Acid Level 5.80 mmol/L (0.4-2.0) H 5.00 mmol/L (0.4-2.0) H 3.40 mmol/L (0.4-2.0) H White Blood Count 8.2 K/UL (4.8-10.8) # Red Blood Count 3.18 M/UL (4.70-6.10) L Hemoglobin 9.8 G/DL (14.2-18.0) L Hematocrit 28.8 % (42.0-52.0) L Mean Corpuscular Volume 91 FL (80-99) Mean Corpuscular Hemoglobin 30.7 PG (27.0-31.0) Mean Corpuscular Hemoglobin Concent 33.9 G/DL (32.0-36.0) Red Cell Distribution Width 12.7 % (11.6-14.8) Platelet Count 133 K/UL (150-450) L Mean Platelet Volume 8.7 FL (6.5-10.1) Neutrophils (%) (Auto) % (45.0-75.0) Lymphocytes (%) (Auto) % (20.0-45.0) Monocytes (%) (Auto) % (1.0-10.0) Eosinophils (%) (Auto) % (0.0-3.0) Basophils (%) (Auto) % (0.0-2.0) Sodium Level 132 MMOL/L (136-145) L Potassium Level 2.5 MMOL/L (3.5-5.1) *L Chloride Level 98 MMOL/L (98-107) Carbon Dioxide Level 22 MMOL/L (21-32) Anion Gap 12 mmol/L (5-15) Blood Urea Nitrogen 35 mg/dL (7-18) H Creatinine 2.4 MG/DL (0.55-1.30) H Estimat Glomerular Filtration Rate 27.8 mL/min (>60) Glucose Level 136 MG/DL (74-106) H Uric Acid 5.2 MG/DL (2.6-7.2) Calcium Level 7.7 MG/DL (8.5-10.1) L Phosphorus Level 2.7 MG/DL (2.5-4.9) Magnesium Level 2.1 MG/DL (1.8-2.4) Total Bilirubin 0.9 MG/DL (0.2-1.0) Gamma Glutamyl Transpeptidase 11 U/L (5-85) Aspartate Amino Transf (AST/SGOT) 58 U/L (15-37) H Alanine Aminotransferase (ALT/SGPT) 43 U/L (12-78) Alkaline Phosphatase 66 U/L (46-116) Total Creatine Kinase 1189 U/L (26-308) H Troponin I 0.195 ng/mL (0.000-0.056) C-Reactive Protein, Quantitative 44.9 mg/dL (0.00-0.90) H Pro-B-Type Natriuretic Peptide 28184 pg/mL (0-125) H Total Protein 5.0 G/DL (6.4-8.2) L Albumin 2.1 G/DL (3.4-5.0) L Globulin 2.9 g/dL Albumin/Globulin Ratio 0.7 (1.0-2.7) L Thyroid Stimulating Hormone (TSH) 0.482 uiU/mL (0.358-3.740) Free Thyroxine 1.03 NG/DL (0.76-1.46) Arterial Blood pH 7.548 (7.350-7.450) Arterial Blood Partial Pressure CO2 28.0 mmHg (35.0-45.0) L Arterial Blood Partial Pressure O2 97.8 mmHg (75.0-100.0) Arterial Blood HCO3 23.8 mmol/L (22.0-26.0) Arterial Blood Oxygen Saturation 97.5 % (95-100) Arterial Blood Base Excess 2.1 (-2-2) H Harvey Test Positive Test 09/09/18 09:30 Lactic Acid Level Pending Po Li MD Sep 09, 2018 10:05
[2018-09-09] MEDS ORDERED: Etomidate 40mg/20ml Inj IV ONE (11:02)
[2018-09-09] MEDS ORDERED: Zemuron 50mg/5ml Inj IV ONE (11:02)
[2018-09-09] MEDS ORDERED: Loperamide 2mg cap ORAL PRN (12:00)
--- NOTE | 2018-09-09 13:42 | General Progress Note ---
Assessment/Plan Problem List: (1) UTI (urinary tract infection) ICD Codes: N39.0 - Urinary tract infection, site not specified SNOMED: 52852017 (2) Renal failure ICD Codes: N19 - Unspecified kidney failure SNOMED: 13671887 (3) Anemia ICD Codes: D64.9 - Anemia, unspecified SNOMED: 047807735 (4) Acute respiratory failure ICD Codes: J96.00 - Acute respiratory failure, unspecified whether with hypoxia or hypercapnia SNOMED: 59975105 (5) Pneumonia ICD Codes: J18.9 - Pneumonia, unspecified organism SNOMED: 614119980 (6) Septic shock ICD Codes: A41.9 - Sepsis, unspecified organism; R65.21 - Severe sepsis with septic shock SNOMED: 79763738 (7) ATN (acute tubular necrosis) ICD Codes: N17.0 - Acute kidney failure with tubular necrosis SNOMED: 70658134 Status: unchanged Assessment/Plan vent abx wound care neph f/u cbc bmp am Subjective Constitutional: Reports: weakness Allergies: Coded Allergies: No Known Allergies (Unverified , 08/14/18) All Systems: reviewed and negative except above Subjective intubated sedated in icu Objective Last 24 Hour Vital Signs Date Time Temp Pulse Resp B/P (MAP) Pulse Ox O2 Delivery O2 Flow Rate FiO2 09/09/18 12:00 107 09/09/18 10:56 116 20 45 09/09/18 10:00 99.9 09/09/18 10:00 87 16 106/62 99 Mechanical Ventilator 45 09/09/18 09:30 108 16 98/53 99 Mechanical Ventilator 45 09/09/18 09:13 122 17 45 09/09/18 09:00 111 16 97/70 99 Mechanical Ventilator 45 09/09/18 08:30 104 16 103/68 99 Mechanical Ventilator 45 09/09/18 08:00 45 09/09/18 08:00 Mechanical Ventilator 09/09/18 08:00 115 09/09/18 08:00 100.3 115 17 110/82 99 Mechanical Ventilator 45 09/09/18 07:36 117 15 45 09/09/18 07:30 115 16 90/75 99 Mechanical Ventilator 45 09/09/18 07:00 109 16 88/60 99 Mechanical Ventilator 45 09/09/18 06:30 104 16 95/75 99 Mechanical Ventilator 45 09/09/18 06:00 88/61 09/09/18 06:00 112 16 84/51 99 Mechanical Ventilator 45 09/09/18 05:30 107 16 112/79 99 Mechanical Ventilator 45 09/09/18 05:00 107 18 100/73 99 Mechanical Ventilator 45 09/09/18 05:00 100/73 09/09/18 04:57 110 20 45 09/09/18 04:30 112 18 81/63 99 Mechanical Ventilator 45 09/09/18 04:00 45 09/09/18 04:00 108 09/09/18 04:00 100/74 09/09/18 04:00 Mechanical Ventilator 09/09/18 04:00 98.0 112 18 100/74 99 Mechanical Ventilator 45 09/09/18 03:30 112 18 105/74 99 Mechanical Ventilator 45 09/09/18 03:24 103 29 45 09/09/18 03:15 112 18 89/55 99 Mechanical Ventilator 45 09/09/18 03:00 108 18 78/60 100 Mechanical Ventilator 45 09/09/18 03:00 78/60 09/09/18 02:45 112 17 74/58 98 Mechanical Ventilator 45 09/09/18 02:30 116 16 79/59 98 Mechanical Ventilator 45 09/09/18 02:00 87/60 09/09/18 02:00 112 17 87/60 98 Mechanical Ventilator 45 09/09/18 01:30 115 16 45 09/09/18 01:30 123 17 88/65 98 Mechanical Ventilator 45 09/09/18 01:00 92/62 09/09/18 01:00 115 16 92/62 100 Mechanical Ventilator 45 09/09/18 00:30 112 18 92/60 100 Mechanical Ventilator 45 09/09/18 00:00 Mechanical Ventilator 09/09/18 00:00 99.0 112 18 98/69 100 Mechanical Ventilator 45 09/09/18 00:00 115 09/09/18 00:00 45 09/09/18 00:00 100/57 09/08/18 23:45 112 18 95/66 100 Mechanical Ventilator 45 09/08/18 23:30 113 15 81/60 98 Mechanical Ventilator 45 09/08/18 23:22 94/67 09/08/18 23:17 116 16 45 09/08/18 23:15 123 15 77/57 98 Mechanical Ventilator 45 09/08/18 23:00 115 16 94/67 100 Mechanical Ventilator 45 09/08/18 23:00 94/60 09/08/18 22:45 115 16 105/71 100 Mechanical Ventilator 45 09/08/18 22:30 115 16 108/75 100 Mechanical Ventilator 45 09/08/18 22:15 130 20 95/68 98 Mechanical Ventilator 45 09/08/18 22:00 118 16 97/67 100 Mechanical Ventilator 45 09/08/18 22:00 97/67 09/08/18 21:45 117 16 100/67 100 Mechanical Ventilator 45 09/08/18 21:30 118 17 99/65 100 Mechanical Ventilator 45 09/08/18 21:30 117 16 45 09/08/18 21:15 117 17 118/78 100 Mechanical Ventilator 45 09/08/18 21:05 116/80 09/08/18 21:00 100/64 09/08/18 21:00 129 20 100/64 97 Mechanical Ventilator 45 09/08/18 20:45 120 16 116/80 100 Mechanical Ventilator 45 09/08/18 20:30 119 16 107/72 100 Mechanical Ventilator 45 09/08/18 20:15 129 16 116/77 97 Mechanical Ventilator 45 09/08/18 20:00 Mechanical Ventilator 09/08/18 20:00 100.1 120 16 111/76 100 Mechanical Ventilator 45 09/08/18 20:00 120 09/08/18 20:00 111/76 09/08/18 20:00 45 09/08/18 19:45 127 19 118/75 98 Mechanical Ventilator 45 09/08/18 19:30 121 16 45 09/08/18 19:30 121 16 106/67 100 Mechanical Ventilator 45 09/08/18 19:15 121 16 113/73 100 Mechanical Ventilator 45 09/08/18 19:00 100.5 124 17 97/60 99 Mechanical Ventilator 45 09/08/18 18:50 107/70 09/08/18 18:30 124 19 102/55 99 Mechanical Ventilator 45 09/08/18 18:00 122 19 107/74 100 Mechanical Ventilator 45 09/08/18 18:00 122 18 107/74 100 Mechanical Ventilator 45 09/08/18 18:00 107/74 09/08/18 17:30 121 19 114/74 100 Mechanical Ventilator 45 09/08/18 17:05 116/76 09/08/18 17:05 119 17 45 09/08/18 17:00 121 16 116/76 98 Mechanical Ventilator 45 09/08/18 16:30 126 16 104/65 98 Mechanical Ventilator 45 09/08/18 16:08 45 09/08/18 16:00 45 09/08/18 16:00 Mechanical Ventilator 09/08/18 16:00 99.9 118 22 106/68 98 Mechanical Ventilator 45 09/08/18 16:00 120 09/08/18 16:00 114/69 09/08/18 15:30 120 16 118/71 98 Mechanical Ventilator 45 09/08/18 15:23 118 16 45 09/08/18 15:10 108/57 09/08/18 15:00 120 16 117/70 98 Mechanical Ventilator 45 09/08/18 14:30 121 16 115/66 98 Mechanical Ventilator 45 09/08/18 14:00 123/71 09/08/18 14:00 120 16 105/58 98 Mechanical Ventilator 45 Intake and Output 09/08/18 09/09/18 19:00 07:00 Intake Total 5362.30 ml 1837.75 ml Output Total 2845 ml 1750 ml Balance 2517.30 ml 87.75 ml IV Total 5362.30 ml 1837.75 ml Output Urine Total 2845 ml 1750 ml # Bowel Movements 5 1 Laboratory Tests 09/08/18 17:15: Lactic Acid Level 5.80H 09/08/18 21:45: Lactic Acid Level 5.00H 09/09/18 04:45: Lactic Acid Level 3.40H, White Blood Count 8.2#, Red Blood Count 3.18L, Hemoglobin 9.8L, Hematocrit 28.8L, Mean Corpuscular Volume 91, Mean Corpuscular Hemoglobin 30.7, Mean Corpuscular Hemoglobin Concent 33.9, Red Cell Distribution Width 12.7, Platelet Count 133L, Mean Platelet Volume 8.7, Neutrophils (%) (Auto) , Lymphocytes (%) (Auto) , Monocytes (%) (Auto) , Eosinophils (%) (Auto) , Basophils (%) (Auto) , Sodium Level 132L, Potassium Level 2.5*L, Chloride Level 98, Carbon Dioxide Level 22, Anion Gap 12, Blood Urea Nitrogen 35H, Creatinine 2.4H, Estimat Glomerular Filtration Rate 27.8, Glucose Level 136H, Uric Acid 5.2, Calcium Level 7.7L, Phosphorus Level 2.7, Magnesium Level 2.1, Total Bilirubin 0.9, Gamma Glutamyl Transpeptidase 11, Aspartate Amino Transf (AST/SGOT) 58H, Alanine Aminotransferase (ALT/SGPT) 43, Alkaline Phosphatase 66, Total Creatine Kinase 1189H, Troponin I 0.195H, C- Reactive Protein, Quantitative 44.9H, Pro-B-Type Natriuretic Peptide 66398A, Total Protein 5.0L, Albumin 2.1L, Globulin 2.9, Albumin/Globulin Ratio 0.7L, Thyroid Stimulating Hormone (TSH) 0.482, Free Thyroxine 1.03 09/09/18 08:20: Arterial Blood pH 7.548H, Arterial Blood Partial Pressure CO2 28.0L, Arterial Blood Partial Pressure O2 97.8, Arterial Blood HCO3 23.8, Arterial Blood Oxygen Saturation 97.5, Arterial Blood Base Excess 2.1H, Harvey Test Positive 09/09/18 09:30: Lactic Acid Level 3.80H Height (Feet): 5 Height (Inches): 6.00 Weight (Pounds): 128 General Appearance: lethargic EENT: normal ENT inspection Neck: normal alignment Cardiovascular: normal peripheral pulses, normal rate, regular rhythm Respiratory/Chest: chest wall non-tender, lungs clear, normal breath sounds Abdomen: normal bowel sounds, non tender, soft Extremities: normal inspection Edema: no edema noted Arm (L), no edema noted Arm (R), no edema noted Leg (L), no edema noted Leg (R), no edema noted Pedal (L), no edema noted Pedal (R), no edema noted Generalized Neurologic: motor weakness Skin: normal pigmentation, warm/dry Jasmeet Reynoso DO Sep 09, 2018 13:42
--- NOTE | 2018-09-09 13:51 | Diagnostic Imaging Report ---
Indication: Dyspnea Comparison: 09/08/2018 A single view chest radiograph was obtained. Findings: Lung volumes are very low. There is basilar atelectasis. Interstitial edema may be slightly improved since the last occasion. Endotracheal tube is stable. IMPRESSION: Mild interstitial edema likely present currently though improved over the last 24
[2018-09-09] MEDS: Piperacillin/Tazobactam 3.375 GM in D5W 110 ML IVPB SCH ×2 (14:00→21:41)
--- NOTE | 2018-09-09 15:10 | Infectious Diseases Prog Note ---
Assessment/Plan Assessment/Plan Gen: NAD, On vent HEENT: NCAT, MMM, EOMI, PERRL, No Oral lesion, no scleral icterus NECK: full range of motion, supple, no meningismus, No LAD, No JVD LUNGS: CTAB, No W/C, CARDS: RRR, S1, S2, No M/R/G, ABD: Soft, NT, distended, No R/G, + BS, No HSM, No Masses, G tube (No E/P) : Deferred Ext: C/C/E, Pulses 2+ B/L (DP, Rad): NEURO: Intubated, nor following SKIN: Warm/dry, No rashes Assessment/Plan Assessment/Plan Assessment/Plan 62 yo male with PMHx of Quadriplegia with G-tube, HTN, DM and Schizophenia [facility]. Sepsis - Probably PNA but will f/u other cultures No intubated on vent 45% CXR 09/07/18 - possible left sided consolidation Inf neg No leukocytosis Febrile to 103 on admit HTN DM Schizophenia Quadriplegia. G- tube dependent Plan - Start Ceftriaxone - Continue Vancmocyin #3 - 09/09/18 Ertapenem #3 pending Cx - f/u cultures - Urine Legionalla - Monitor CBC and temps Thank you for this consult. We will continue to follow the patient during this hospitalization. Subjective Allergies: Coded Allergies: No Known Allergies (Unverified , 08/14/18) Subjective Afebrile No leukocytosis Objective Vital Signs Last 24 Hour Vital Signs Date Time Temp Pulse Resp B/P (MAP) Pulse Ox O2 Delivery O2 Flow Rate FiO2 09/09/18 14:00 98 16 103/66 100 Mechanical Ventilator 45 09/09/18 13:30 105 16 111/74 100 Mechanical Ventilator 45 09/09/18 13:00 104 16 105/74 100 Mechanical Ventilator 45 09/09/18 12:30 110 16 111/77 100 Mechanical Ventilator 45 09/09/18 12:00 107 09/09/18 12:00 98.2 108 16 118/78 100 Mechanical Ventilator 45 09/09/18 11:30 108 16 118/86 100 Mechanical Ventilator 45 09/09/18 11:00 108 16 113/86 100 Mechanical Ventilator 45 09/09/18 10:56 116 20 45 09/09/18 10:30 112 16 117/97 100 Mechanical Ventilator 45 09/09/18 10:00 99.9 09/09/18 10:00 87 16 106/62 99 Mechanical Ventilator 45 09/09/18 09:30 108 16 98/53 99 Mechanical Ventilator 45 09/09/18 09:13 122 17 45 09/09/18 09:00 111 16 97/70 99 Mechanical Ventilator 45 09/09/18 08:30 104 16 103/68 99 Mechanical Ventilator 45 09/09/18 08:00 45 09/09/18 08:00 Mechanical Ventilator 09/09/18 08:00 115 09/09/18 08:00 100.3 115 17 110/82 99 Mechanical Ventilator 45 09/09/18 07:36 117 15 45 09/09/18 07:30 115 16 90/75 99 Mechanical Ventilator 45 09/09/18 07:00 109 16 88/60 99 Mechanical Ventilator 45 09/09/18 06:30 104 16 95/75 99 Mechanical Ventilator 45 09/09/18 06:00 88/61 09/09/18 06:00 112 16 84/51 99 Mechanical Ventilator 45 09/09/18 05:30 107 16 112/79 99 Mechanical Ventilator 45 09/09/18 05:00 107 18 100/73 99 Mechanical Ventilator 45 09/09/18 05:00 100/73 09/09/18 04:57 110 20 45 09/09/18 04:30 112 18 81/63 99 Mechanical Ventilator 45 09/09/18 04:00 45 09/09/18 04:00 108 09/09/18 04:00 100/74 09/09/18 04:00 Mechanical Ventilator 09/09/18 04:00 98.0 112 18 100/74 99 Mechanical Ventilator 45 09/09/18 03:30 112 18 105/74 99 Mechanical Ventilator 45 09/09/18 03:24 103 29 45 09/09/18 03:15 112 18 89/55 99 Mechanical Ventilator 45 09/09/18 03:00 108 18 78/60 100 Mechanical Ventilator 45 09/09/18 03:00 78/60 09/09/18 02:45 112 17 74/58 98 Mechanical Ventilator 45 09/09/18 02:30 116 16 79/59 98 Mechanical Ventilator 45 09/09/18 02:00 87/60 09/09/18 02:00 112 17 87/60 98 Mechanical Ventilator 45 09/09/18 01:30 115 16 45 09/09/18 01:30 123 17 88/65 98 Mechanical Ventilator 45 09/09/18 01:00 92/62 09/09/18 01:00 115 16 92/62 100 Mechanical Ventilator 45 09/09/18 00:30 112 18 92/60 100 Mechanical Ventilator 45 09/09/18 00:00 Mechanical Ventilator 09/09/18 00:00 99.0 112 18 98/69 100 Mechanical Ventilator 45 09/09/18 00:00 115 09/09/18 00:00 45 09/09/18 00:00 100/57 09/08/18 23:45 112 18 95/66 100 Mechanical Ventilator 45 09/08/18 23:30 113 15 81/60 98 Mechanical Ventilator 45 09/08/18 23:22 94/67 09/08/18 23:17 116 16 45 09/08/18 23:15 123 15 77/57 98 Mechanical Ventilator 45 09/08/18 23:00 115 16 94/67 100 Mechanical Ventilator 45 09/08/18 23:00 94/60 09/08/18 22:45 115 16 105/71 100 Mechanical Ventilator 45 09/08/18 22:30 115 16 108/75 100 Mechanical Ventilator 45 09/08/18 22:15 130 20 95/68 98 Mechanical Ventilator 45 09/08/18 22:00 118 16 97/67 100 Mechanical Ventilator 45 09/08/18 22:00 97/67 09/08/18 21:45 117 16 100/67 100 Mechanical Ventilator 45 09/08/18 21:30 118 17 99/65 100 Mechanical Ventilator 45 09/08/18 21:30 117 16 45 09/08/18 21:15 117 17 118/78 100 Mechanical Ventilator 45 09/08/18 21:05 116/80 09/08/18 21:00 100/64 09/08/18 21:00 129 20 100/64 97 Mechanical Ventilator 45 09/08/18 20:45 120 16 116/80 100 Mechanical Ventilator 45 09/08/18 20:30 119 16 107/72 100 Mechanical Ventilator 45 09/08/18 20:15 129 16 116/77 97 Mechanical Ventilator 45 09/08/18 20:00 Mechanical Ventilator 09/08/18 20:00 100.1 120 16 111/76 100 Mechanical Ventilator 45 09/08/18 20:00 120 09/08/18 20:00 111/76 09/08/18 20:00 45 09/08/18 19:45 127 19 118/75 98 Mechanical Ventilator 45 09/08/18 19:30 121 16 45 09/08/18 19:30 121 16 106/67 100 Mechanical Ventilator 45 09/08/18 19:15 121 16 113/73 100 Mechanical Ventilator 45 09/08/18 19:00 100.5 124 17 97/60 99 Mechanical Ventilator 45 09/08/18 18:50 107/70 09/08/18 18:30 124 19 102/55 99 Mechanical Ventilator 45 09/08/18 18:00 122 19 107/74 100 Mechanical Ventilator 45 09/08/18 18:00 122 18 107/74 100 Mechanical Ventilator 45 09/08/18 18:00 107/74 09/08/18 17:30 121 19 114/74 100 Mechanical Ventilator 45 09/08/18 17:05 116/76 09/08/18 17:05 119 17 45 09/08/18 17:00 121 16 116/76 98 Mechanical Ventilator 45 09/08/18 16:30 126 16 104/65 98 Mechanical Ventilator 45 09/08/18 16:08 45 09/08/18 16:00 45 09/08/18 16:00 Mechanical Ventilator 09/08/18 16:00 99.9 118 22 106/68 98 Mechanical Ventilator 45 09/08/18 16:00 120 09/08/18 16:00 114/69 09/08/18 15:30 120 16 118/71 98 Mechanical Ventilator 45 09/08/18 15:23 118 16 45 09/08/18 15:10 108/57 Height (Feet): 5 Height (Inches): 6.00 Weight (Pounds): 128 Objective Gen: NAD, On vent HEENT: NCAT, MMM, EOMI LUNGS: CTAB, No W/C, CARDS: RRR, S1, S2, No M/R/G, ABD: Soft, NT, distended, + BS,G tube (No E/P) NEURO: Intubated, not following Microbiology Date/Time Source Procedure Growth Status 09/07/18 13:20 Blood Blood Culture - Preliminary Resulted 09/07/18 13:05 Blood Blood Culture - Preliminary Resulted 09/07/18 20:00 Sputum Gram Stain - Final Resulted 09/07/18 20:00 Sputum Culture - Preliminary Gram Positive Cocci Resulted 09/07/18 15:05 Nasal Nares MRSA Culture - Final NO METHICILLIN RESISTANT STAPH AUREUS... Complete 09/07/18 13:36 Nasal Nares Influenza Types A,B Antigen (JIMY) - Final Complete 09/07/18 20:00 Urine,Clean Catch Urine Culture - Preliminary NO GROWTH AFTER 24 HOURS Resulted 09/07/18 15:53 Urine,Clean Catch Urine Culture - Preliminary NO GROWTH AFTER 24 HOURS Resulted 09/07/18 15:05 Rectum VRE Culture - Final Enterococcus Faecalis - Vre Complete 09/07/18 15:05 Rectum - Final NO CARBAPENEM-RESISTANT ENTEROBACTERI... Complete Laboratory Tests Test 09/08/18 17:15 09/08/18 21:45 09/09/18 04:45 09/09/18 08:20 Lactic Acid Level 5.80 mmol/L (0.4-2.0) H 5.00 mmol/L (0.4-2.0) H 3.40 mmol/L (0.4-2.0) H White Blood Count 8.2 K/UL (4.8-10.8) # Red Blood Count 3.18 M/UL (4.70-6.10) L Hemoglobin 9.8 G/DL (14.2-18.0) L Hematocrit 28.8 % (42.0-52.0) L Mean Corpuscular Volume 91 FL (80-99) Mean Corpuscular Hemoglobin 30.7 PG (27.0-31.0) Mean Corpuscular Hemoglobin Concent 33.9 G/DL (32.0-36.0) Red Cell Distribution Width 12.7 % (11.6-14.8) Platelet Count 133 K/UL (150-450) L Mean Platelet Volume 8.7 FL (6.5-10.1) Neutrophils (%) (Auto) % (45.0-75.0) Lymphocytes (%) (Auto) % (20.0-45.0) Monocytes (%) (Auto) % (1.0-10.0) Eosinophils (%) (Auto) % (0.0-3.0) Basophils (%) (Auto) % (0.0-2.0) Sodium Level 132 MMOL/L (136-145) L Potassium Level 2.5 MMOL/L (3.5-5.1) *L Chloride Level 98 MMOL/L (98-107) Carbon Dioxide Level 22 MMOL/L (21-32) Anion Gap 12 mmol/L (5-15) Blood Urea Nitrogen 35 mg/dL (7-18) H Creatinine 2.4 MG/DL (0.55-1.30) H Estimat Glomerular Filtration Rate 27.8 mL/min (>60) Glucose Level 136 MG/DL (74-106) H Uric Acid 5.2 MG/DL (2.6-7.2) Calcium Level 7.7 MG/DL (8.5-10.1) L Phosphorus Level 2.7 MG/DL (2.5-4.9) Magnesium Level 2.1 MG/DL (1.8-2.4) Total Bilirubin 0.9 MG/DL (0.2-1.0) Gamma Glutamyl Transpeptidase 11 U/L (5-85) Aspartate Amino Transf (AST/SGOT) 58 U/L (15-37) H Alanine Aminotransferase (ALT/SGPT) 43 U/L (12-78) Alkaline Phosphatase 66 U/L (46-116) Total Creatine Kinase 1189 U/L (26-308) H Troponin I 0.195 ng/mL (0.000-0.056) C-Reactive Protein, Quantitative 44.9 mg/dL (0.00-0.90) H Pro-B-Type Natriuretic Peptide 38117 pg/mL (0-125) H Total Protein 5.0 G/DL (6.4-8.2) L Albumin 2.1 G/DL (3.4-5.0) L Globulin 2.9 g/dL Albumin/Globulin Ratio 0.7 (1.0-2.7) L Thyroid Stimulating Hormone (TSH) 0.482 uiU/mL (0.358-3.740) Free Thyroxine 1.03 NG/DL (0.76-1.46) Arterial Blood pH 7.548 (7.350-7.450) Arterial Blood Partial Pressure CO2 28.0 mmHg (35.0-45.0) L Arterial Blood Partial Pressure O2 97.8 mmHg (75.0-100.0) Arterial Blood HCO3 23.8 mmol/L (22.0-26.0) Arterial Blood Oxygen Saturation 97.5 % (95-100) Arterial Blood Base Excess 2.1 (-2-2) H Harvey Test Positive Test 09/09/18 09:30 Lactic Acid Level 3.80 mmol/L (0.66-2.22) H Current Medications Medications (Trade) Dose Ordered Sig/Julito Route PRN Reason Start Time Stop Time Status Last Admin Dose Admin Acetaminophen (Tylenol) 650 mg Q4H PRN NG Mild Pain/Temp > 100.5 09/08/18 13:30 10/08/18 13:29 09/09/18 09:13 Albuterol/ Ipratropium (Albuterol/ Ipratropium) 3 ml Q4H PRN HHN Shortness of Breath 09/07/18 15:15 09/12/18 15:14 Chlorhexidine Gluconate (Camila-Hex 2%) 1 applic DAILY@2000 TOPIC 09/07/18 20:00 10/07/18 19:59 09/08/18 20:11 Dextrose (Dextrose 50%) 25 ml Q30M PRN IV Hypoglycemia 09/08/18 13:30 10/08/18 13:29 Dextrose (Dextrose 50%) 50 ml Q30M PRN IV Hypoglycemia 09/08/18 13:30 10/08/18 13:29 Dextrose/ Electrolytes 1,000 ml @ 75 mls/hr [id number] IV 09/09/18 08:30 10/09/18 08:29 09/09/18 08:35 Heparin Sodium (Porcine) (Heparin 5000 units/ml) 5,000 units EVERY 12 HOURS SUBQ 09/07/18 21:00 10/07/18 20:59 09/09/18 08:31 Insulin Aspart (NovoLOG) EVERY 4 HOURS SUBQ 09/08/18 14:30 10/08/18 14:29 09/09/18 12:47 Loperamide HCl (Imodium) 2 mg Q4H PRN ORAL Diarrhea 09/09/18 12:00 10/09/18 11:59 Morphine Sulfate (Morphine Sulfate) 2 mg Q4H PRN IVP Severe Pain (Pain Scale 7-10) 09/07/18 15:15 09/14/18 15:14 Norepinephrine Bitartrate 8 mg/ Dextrose 558 ml @ 0 mls/hr Q24H IV 09/08/18 21:00 10/08/18 20:59 09/08/18 23:22 Ondansetron HCl (Zofran) 4 mg Q6H PRN IVP Nausea & Vomiting 09/07/18 15:15 10/07/18 15:14 Pantoprazole (Protonix) 40 mg Q12HR IVP 09/07/18 21:00 10/08/18 08:59 09/09/18 08:30 Piperacillin Sod/ Tazobactam Sod 3.375 gm/Dextrose 110 ml @ 27.5 mls/hr Q8HR IVPB 09/09/18 14:00 09/16/18 13:59 Polyethylene Glycol (Miralax) 17 gm DAILYPRN PRN ORAL Constipation 09/07/18 15:15 10/07/18 15:14 Sodium Chloride 500 ml @ 999 mls/hr Q31M PRN IV SBP<90mmHg 09/08/18 11:00 10/08/18 10:59 09/08/18 12:34 Vancomycin HCl (Vanco rx to dose) 1 ea DAILY PRN MISC PER PHARMACY 09/07/18 16:30 10/07/18 16:29 Asim De Leon MD Sep 09, 2018 15:10
--- NOTE | 2018-09-09 15:57 | Nephrology Progress Note ---
Assessment/Plan Problem List: (1) ATN (acute tubular necrosis) (2) Septic shock (3) Lactic acid acidosis (4) Metabolic acidosis (5) Hyperkalemia (6) G tube feedings (7) Acute respiratory failure Assessment over all improved: presented with Shock , likely septic Acute renal failure Acute metabolic acidosis Hyperkalemia PEG Recent Pneumonia Plan plan: pulmonary support Fluid challenge Silva IV Bicarb K supplement Pressors as needed antibiotics monitor renal parameters and ABG no need for dialysis as renal failure improving Subjective ROS Limited/Unobtainable: Yes Objective Objective Last 24 Hour Vital Signs Date Time Temp Pulse Resp B/P (MAP) Pulse Ox O2 Delivery O2 Flow Rate FiO2 09/09/18 14:00 98 16 103/66 100 Mechanical Ventilator 45 09/09/18 13:30 105 16 111/74 100 Mechanical Ventilator 45 09/09/18 13:00 104 16 105/74 100 Mechanical Ventilator 45 09/09/18 12:30 110 16 111/77 100 Mechanical Ventilator 45 09/09/18 12:00 45 09/09/18 12:00 Mechanical Ventilator 09/09/18 12:00 107 09/09/18 12:00 98.2 108 16 118/78 100 Mechanical Ventilator 45 09/09/18 11:30 108 16 118/86 100 Mechanical Ventilator 45 09/09/18 11:00 108 16 113/86 100 Mechanical Ventilator 45 09/09/18 10:56 116 20 45 09/09/18 10:30 112 16 117/97 100 Mechanical Ventilator 45 09/09/18 10:00 99.9 09/09/18 10:00 87 16 106/62 99 Mechanical Ventilator 45 09/09/18 09:30 108 16 98/53 99 Mechanical Ventilator 45 09/09/18 09:13 122 17 45 09/09/18 09:00 111 16 97/70 99 Mechanical Ventilator 45 09/09/18 08:30 104 16 103/68 99 Mechanical Ventilator 45 09/09/18 08:00 45 09/09/18 08:00 Mechanical Ventilator 09/09/18 08:00 115 09/09/18 08:00 100.3 115 17 110/82 99 Mechanical Ventilator 45 09/09/18 07:36 117 15 45 09/09/18 07:30 115 16 90/75 99 Mechanical Ventilator 45 09/09/18 07:00 109 16 88/60 99 Mechanical Ventilator 45 09/09/18 06:30 104 16 95/75 99 Mechanical Ventilator 45 09/09/18 06:00 88/61 09/09/18 06:00 112 16 84/51 99 Mechanical Ventilator 45 09/09/18 05:30 107 16 112/79 99 Mechanical Ventilator 45 09/09/18 05:00 107 18 100/73 99 Mechanical Ventilator 45 09/09/18 05:00 100/73 09/09/18 04:57 110 20 45 09/09/18 04:30 112 18 81/63 99 Mechanical Ventilator 45 09/09/18 04:00 45 09/09/18 04:00 108 09/09/18 04:00 100/74 09/09/18 04:00 Mechanical Ventilator 09/09/18 04:00 98.0 112 18 100/74 99 Mechanical Ventilator 45 09/09/18 03:30 112 18 105/74 99 Mechanical Ventilator 45 09/09/18 03:24 103 29 45 09/09/18 03:15 112 18 89/55 99 Mechanical Ventilator 45 09/09/18 03:00 108 18 78/60 100 Mechanical Ventilator 45 09/09/18 03:00 78/60 09/09/18 02:45 112 17 74/58 98 Mechanical Ventilator 45 09/09/18 02:30 116 16 79/59 98 Mechanical Ventilator 45 09/09/18 02:00 87/60 09/09/18 02:00 112 17 87/60 98 Mechanical Ventilator 45 09/09/18 01:30 115 16 45 09/09/18 01:30 123 17 88/65 98 Mechanical Ventilator 45 09/09/18 01:00 92/62 09/09/18 01:00 115 16 92/62 100 Mechanical Ventilator 45 09/09/18 00:30 112 18 92/60 100 Mechanical Ventilator 45 09/09/18 00:00 Mechanical Ventilator 09/09/18 00:00 99.0 112 18 98/69 100 Mechanical Ventilator 45 09/09/18 00:00 115 09/09/18 00:00 45 09/09/18 00:00 100/57 09/08/18 23:45 112 18 95/66 100 Mechanical Ventilator 45 09/08/18 23:30 113 15 81/60 98 Mechanical Ventilator 45 09/08/18 23:22 94/67 1/29/19 23:17 116 16 45 09/08/18 23:15 123 15 77/57 98 Mechanical Ventilator 45 09/08/18 23:00 115 16 94/67 100 Mechanical Ventilator 45 09/08/18 23:00 94/60 09/08/18 22:45 115 16 105/71 100 Mechanical Ventilator 45 09/08/18 22:30 115 16 108/75 100 Mechanical Ventilator 45 09/08/18 22:15 130 20 95/68 98 Mechanical Ventilator 45 09/08/18 22:00 118 16 97/67 100 Mechanical Ventilator 45 09/08/18 22:00 97/67 09/08/18 21:45 117 16 100/67 100 Mechanical Ventilator 45 09/08/18 21:30 118 17 99/65 100 Mechanical Ventilator 45 09/08/18 21:30 117 16 45 09/08/18 21:15 117 17 118/78 100 Mechanical Ventilator 45 09/08/18 21:05 116/80 09/08/18 21:00 100/64 09/08/18 21:00 129 20 100/64 97 Mechanical Ventilator 45 09/08/18 20:45 120 16 116/80 100 Mechanical Ventilator 45 09/08/18 20:30 119 16 107/72 100 Mechanical Ventilator 45 09/08/18 20:15 129 16 116/77 97 Mechanical Ventilator 45 09/08/18 20:00 Mechanical Ventilator 09/08/18 20:00 100.1 120 16 111/76 100 Mechanical Ventilator 45 09/08/18 20:00 120 09/08/18 20:00 111/76 09/08/18 20:00 45 09/08/18 19:45 127 19 118/75 98 Mechanical Ventilator 45 09/08/18 19:30 121 16 45 09/08/18 19:30 121 16 106/67 100 Mechanical Ventilator 45 09/08/18 19:15 121 16 113/73 100 Mechanical Ventilator 45 09/08/18 19:00 100.5 124 17 97/60 99 Mechanical Ventilator 45 09/08/18 18:50 107/70 09/08/18 18:30 124 19 102/55 99 Mechanical Ventilator 45 09/08/18 18:00 122 19 107/74 100 Mechanical Ventilator 45 09/08/18 18:00 122 18 107/74 100 Mechanical Ventilator 45 09/08/18 18:00 107/74 09/08/18 17:30 121 19 114/74 100 Mechanical Ventilator 45 09/08/18 17:05 116/76 09/08/18 17:05 119 17 45 09/08/18 17:00 121 16 116/76 98 Mechanical Ventilator 45 09/08/18 16:30 126 16 104/65 98 Mechanical Ventilator 45 09/08/18 16:08 45 09/08/18 16:00 45 09/08/18 16:00 Mechanical Ventilator 09/08/18 16:00 99.9 118 22 106/68 98 Mechanical Ventilator 45 09/08/18 16:00 120 09/08/18 16:00 114/69 Intake and Output 09/08/18 09/09/18 19:00 07:00 Intake Total 5362.30 ml 1912.75 ml Output Total 2845 ml 1750 ml Balance 2517.30 ml 162.75 ml IV Total 5362.30 ml 1912.75 ml Output Urine Total 2845 ml 1750 ml # Bowel Movements 5 1 Laboratory Tests 09/08/18 17:15: Lactic Acid Level 5.80H 09/08/18 21:45: Lactic Acid Level 5.00H 09/09/18 04:45: Lactic Acid Level 3.40H, White Blood Count 8.2#, Red Blood Count 3.18L, Hemoglobin 9.8L, Hematocrit 28.8L, Mean Corpuscular Volume 91, Mean Corpuscular Hemoglobin 30.7, Mean Corpuscular Hemoglobin Concent 33.9, Red Cell Distribution Width 12.7, Platelet Count 133L, Mean Platelet Volume 8.7, Neutrophils (%) (Auto) , Lymphocytes (%) (Auto) , Monocytes (%) (Auto) , Eosinophils (%) (Auto) , Basophils (%) (Auto) , Sodium Level 132L, Potassium Level 2.5*L, Chloride Level 98, Carbon Dioxide Level 22, Anion Gap 12, Blood Urea Nitrogen 35H, Creatinine 2.4H, Estimat Glomerular Filtration Rate 27.8, Glucose Level 136H, Uric Acid 5.2, Calcium Level 7.7L, Phosphorus Level 2.7, Magnesium Level 2.1, Total Bilirubin 0.9, Gamma Glutamyl Transpeptidase 11, Aspartate Amino Transf (AST/SGOT) 58H, Alanine Aminotransferase (ALT/SGPT) 43, Alkaline Phosphatase 66, Total Creatine Kinase 1189H, Troponin I 0.195H, C- Reactive Protein, Quantitative 44.9H, Pro-B-Type Natriuretic Peptide 88335T, Total Protein 5.0L, Albumin 2.1L, Globulin 2.9, Albumin/Globulin Ratio 0.7L, Thyroid Stimulating Hormone (TSH) 0.482, Free Thyroxine 1.03 09/09/18 08:20: Arterial Blood pH 7.548H, Arterial Blood Partial Pressure CO2 28.0L, Arterial Blood Partial Pressure O2 97.8, Arterial Blood HCO3 23.8, Arterial Blood Oxygen Saturation 97.5, Arterial Blood Base Excess 2.1H, Harvey Test Positive 09/09/18 09:30: Lactic Acid Level 3.80H Height (Feet): 5 Height (Inches): 6.00 Weight (Pounds): 128 General Appearance: no apparent distress EENT: other - vented Respiratory/Chest: decreased breath sounds Abdomen: distended Josesito Smalls MD Sep 09, 2018 15:57
--- NOTE | 2018-09-09 16:15 | Consultation ---
History of Present Illness General Chief Complaint: Altered Level of Consciousness Reason for Consultation: Sepsis Present Illness HPI 62 year old male presented in septic shock and currently in ICU under medical care and critical care management. On admission noted to have multiple wounds that will require care. surgery called to evaluate and assist with care/ management. patient seen, chart reviewed, patient examined. Allergies: Coded Allergies: No Known Allergies (Unverified , 08/14/18) Medication History Scheduled Aspirin* (Aspir 81*), 81 MG GT DAILY, (Reported) Benazepril Hcl* (Benazepril Hcl*), 20 MG GT EVERY 12 HOURS, (Reported) Calcium Citrate (Calcium Citrate), 500 GM GT DAILY, (Reported) Docusate Sodium* (Docusate Sodium*), 100 MG ORAL THREE TIMES A DAY, (Reported) Insulin Aspart (Novolog Flexpen), ACHS, (Reported) Levofloxacin* (Levaquin*), 500 MG ORAL DAILY, (Reported) Levofloxacin* (Levaquin*), 750 MG ORAL DAILY, (Reported) Magnesium Hydroxide* (Milk Of Magnesia*), 30 ML ORAL DAILY, (Reported) Metformin Hcl* (Metformin Hcl*), 500 MG GT BID, (Reported) Omeprazole Magnesium (Prilosec Otc), 10 MG GT DAILY, (Reported) Risperidone* (Risperdal*), 0.25 MG ORAL DAILY, (Reported) Scheduled PRN Acetaminophen* (Tylenol*), 325 MG GT Q6HR PRN for Mild Pain/Temp > 100.5, ( Reported) Miscellaneous Medications Ferrous Sulfate (Ferrous Sulfate), 5 ML GT, (Reported) Patient History Limited by: medical condition History Provided By: Medical Record, PMD Healthcare decision maker Resuscitation status Full Code Advanced Directive on File No Past Medical/Surgical History Past Medical/Surgical History: (1) Wound check, abscess (2) Acute respiratory failure (3) Anemia (4) Renal failure (5) UTI (urinary tract infection) (6) Pneumonia (7) G tube feedings (8) Protein-calorie malnutrition, severe (9) Hyperkalemia (10) Metabolic acidosis (11) Lactic acid acidosis (12) Septic shock (13) ATN (acute tubular necrosis) Review of Systems All Other Systems: negative except mentioned in HPI Physical Exam General Appearance: lethargic Lines, tubes and drains: central line HEENT: mucous membranes moist Neck: normal inspection Respiratory/Chest: lungs clear Cardiovascular/Chest: normal rate Abdomen: soft, no organomegaly, no mass Extremities: other Skin Exam: other Last 24 Hour Vital Signs Date Time Temp Pulse Resp B/P (MAP) Pulse Ox O2 Delivery O2 Flow Rate FiO2 09/09/18 14:00 98 16 103/66 100 Mechanical Ventilator 45 09/09/18 13:30 105 16 111/74 100 Mechanical Ventilator 45 09/09/18 13:00 104 16 105/74 100 Mechanical Ventilator 45 09/09/18 12:30 110 16 111/77 100 Mechanical Ventilator 45 09/09/18 12:00 45 09/09/18 12:00 Mechanical Ventilator 09/09/18 12:00 107 09/09/18 12:00 98.2 108 16 118/78 100 Mechanical Ventilator 45 09/09/18 11:30 108 16 118/86 100 Mechanical Ventilator 45 09/09/18 11:00 108 16 113/86 100 Mechanical Ventilator 45 09/09/18 10:56 116 20 45 09/09/18 10:30 112 16 117/97 100 Mechanical Ventilator 45 09/09/18 10:00 99.9 09/09/18 10:00 87 16 106/62 99 Mechanical Ventilator 45 09/09/18 09:30 108 16 98/53 99 Mechanical Ventilator 45 09/09/18 09:13 122 17 45 09/09/18 09:00 111 16 97/70 99 Mechanical Ventilator 45 09/09/18 08:30 104 16 103/68 99 Mechanical Ventilator 45 09/09/18 08:00 45 09/09/18 08:00 Mechanical Ventilator 09/09/18 08:00 115 09/09/18 08:00 100.3 115 17 110/82 99 Mechanical Ventilator 45 09/09/18 07:36 117 15 45 09/09/18 07:30 115 16 90/75 99 Mechanical Ventilator 45 09/09/18 07:00 109 16 88/60 99 Mechanical Ventilator 45 09/09/18 06:30 104 16 95/75 99 Mechanical Ventilator 45 09/09/18 06:00 88/61 09/09/18 06:00 112 16 84/51 99 Mechanical Ventilator 45 09/09/18 05:30 107 16 112/79 99 Mechanical Ventilator 45 09/09/18 05:00 107 18 100/73 99 Mechanical Ventilator 45 09/09/18 05:00 100/73 09/09/18 04:57 110 20 45 09/09/18 04:30 112 18 81/63 99 Mechanical Ventilator 45 09/09/18 04:00 45 09/09/18 04:00 108 09/09/18 04:00 100/74 09/09/18 04:00 Mechanical Ventilator 09/09/18 04:00 98.0 112 18 100/74 99 Mechanical Ventilator 45 09/09/18 03:30 112 18 105/74 99 Mechanical Ventilator 45 09/09/18 03:24 103 29 45 09/09/18 03:15 112 18 89/55 99 Mechanical Ventilator 45 09/09/18 03:00 108 18 78/60 100 Mechanical Ventilator 45 09/09/18 03:00 78/60 09/09/18 02:45 112 17 74/58 98 Mechanical Ventilator 45 09/09/18 02:30 116 16 79/59 98 Mechanical Ventilator 45 09/09/18 02:00 87/60 09/09/18 02:00 112 17 87/60 98 Mechanical Ventilator 45 09/09/18 01:30 115 16 45 09/09/18 01:30 123 17 88/65 98 Mechanical Ventilator 45 09/09/18 01:00 92/62 09/09/18 01:00 115 16 92/62 100 Mechanical Ventilator 45 09/09/18 00:30 112 18 92/60 100 Mechanical Ventilator 45 09/09/18 00:00 Mechanical Ventilator 09/09/18 00:00 99.0 112 18 98/69 100 Mechanical Ventilator 45 09/09/18 00:00 115 09/09/18 00:00 45 09/09/18 00:00 100/57 09/08/18 23:45 112 18 95/66 100 Mechanical Ventilator 45 09/08/18 23:30 113 15 81/60 98 Mechanical Ventilator 45 09/08/18 23:22 94/67 09/08/18 23:17 116 16 45 09/08/18 23:15 123 15 77/57 98 Mechanical Ventilator 45 09/08/18 23:00 115 16 94/67 100 Mechanical Ventilator 45 09/08/18 23:00 94/60 09/08/18 22:45 115 16 105/71 100 Mechanical Ventilator 45 09/08/18 22:30 115 16 108/75 100 Mechanical Ventilator 45 09/08/18 22:15 130 20 95/68 98 Mechanical Ventilator 45 09/08/18 22:00 118 16 97/67 100 Mechanical Ventilator 45 09/08/18 22:00 97/67 09/08/18 21:45 117 16 100/67 100 Mechanical Ventilator 45 09/08/18 21:30 118 17 99/65 100 Mechanical Ventilator 45 09/08/18 21:30 117 16 45 09/08/18 21:15 117 17 118/78 100 Mechanical Ventilator 45 09/08/18 21:05 116/80 09/08/18 21:00 100/64 09/08/18 21:00 129 20 100/64 97 Mechanical Ventilator 45 09/08/18 20:45 120 16 116/80 100 Mechanical Ventilator 45 09/08/18 20:30 119 16 107/72 100 Mechanical Ventilator 45 09/08/18 20:15 129 16 116/77 97 Mechanical Ventilator 45 09/08/18 20:00 Mechanical Ventilator 09/08/18 20:00 100.1 120 16 111/76 100 Mechanical Ventilator 45 09/08/18 20:00 120 09/08/18 20:00 111/76 09/08/18 20:00 45 09/08/18 19:45 127 19 118/75 98 Mechanical Ventilator 45 09/08/18 19:30 121 16 45 09/08/18 19:30 121 16 106/67 100 Mechanical Ventilator 45 09/08/18 19:15 121 16 113/73 100 Mechanical Ventilator 45 09/08/18 19:00 100.5 124 17 97/60 99 Mechanical Ventilator 45 09/08/18 18:50 107/70 09/08/18 18:30 124 19 102/55 99 Mechanical Ventilator 45 09/08/18 18:00 122 19 107/74 100 Mechanical Ventilator 45 09/08/18 18:00 122 18 107/74 100 Mechanical Ventilator 45 09/08/18 18:00 107/74 09/08/18 17:30 121 19 114/74 100 Mechanical Ventilator 45 09/08/18 17:05 116/76 09/08/18 17:05 119 17 45 09/08/18 17:00 121 16 116/76 98 Mechanical Ventilator 45 09/08/18 16:30 126 16 104/65 98 Mechanical Ventilator 45 Intake and Output 09/08/18 09/09/18 19:00 07:00 Intake Total 5362.30 ml 1912.75 ml Output Total 2845 ml 1750 ml Balance 2517.30 ml 162.75 ml IV Total 5362.30 ml 1912.75 ml Output Urine Total 2845 ml 1750 ml # Bowel Movements 5 1 Laboratory Tests Test 09/08/18 17:15 09/08/18 21:45 09/09/18 04:45 09/09/18 08:20 Lactic Acid Level 5.80 mmol/L (0.4-2.0) H 5.00 mmol/L (0.4-2.0) H 3.40 mmol/L (0.4-2.0) H White Blood Count 8.2 K/UL (4.8-10.8) # Red Blood Count 3.18 M/UL (4.70-6.10) L Hemoglobin 9.8 G/DL (14.2-18.0) L Hematocrit 28.8 % (42.0-52.0) L Mean Corpuscular Volume 91 FL (80-99) Mean Corpuscular Hemoglobin 30.7 PG (27.0-31.0) Mean Corpuscular Hemoglobin Concent 33.9 G/DL (32.0-36.0) Red Cell Distribution Width 12.7 % (11.6-14.8) Platelet Count 133 K/UL (150-450) L Mean Platelet Volume 8.7 FL (6.5-10.1) Neutrophils (%) (Auto) % (45.0-75.0) Lymphocytes (%) (Auto) % (20.0-45.0) Monocytes (%) (Auto) % (1.0-10.0) Eosinophils (%) (Auto) % (0.0-3.0) Basophils (%) (Auto) % (0.0-2.0) Sodium Level 132 MMOL/L (136-145) L Potassium Level 2.5 MMOL/L (3.5-5.1) *L Chloride Level 98 MMOL/L (98-107) Carbon Dioxide Level 22 MMOL/L (21-32) Anion Gap 12 mmol/L (5-15) Blood Urea Nitrogen 35 mg/dL (7-18) H Creatinine 2.4 MG/DL (0.55-1.30) H Estimat Glomerular Filtration Rate 27.8 mL/min (>60) Glucose Level 136 MG/DL (74-106) H Uric Acid 5.2 MG/DL (2.6-7.2) Calcium Level 7.7 MG/DL (8.5-10.1) L Phosphorus Level 2.7 MG/DL (2.5-4.9) Magnesium Level 2.1 MG/DL (1.8-2.4) Total Bilirubin 0.9 MG/DL (0.2-1.0) Gamma Glutamyl Transpeptidase 11 U/L (5-85) Aspartate Amino Transf (AST/SGOT) 58 U/L (15-37) H Alanine Aminotransferase (ALT/SGPT) 43 U/L (12-78) Alkaline Phosphatase 66 U/L (46-116) Total Creatine Kinase 1189 U/L (26-308) H Troponin I 0.195 ng/mL (0.000-0.056) C-Reactive Protein, Quantitative 44.9 mg/dL (0.00-0.90) H Pro-B-Type Natriuretic Peptide 25314 pg/mL (0-125) H Total Protein 5.0 G/DL (6.4-8.2) L Albumin 2.1 G/DL (3.4-5.0) L Globulin 2.9 g/dL Albumin/Globulin Ratio 0.7 (1.0-2.7) L Thyroid Stimulating Hormone (TSH) 0.482 uiU/mL (0.358-3.740) Free Thyroxine 1.03 NG/DL (0.76-1.46) Arterial Blood pH 7.548 (7.350-7.450) Arterial Blood Partial Pressure CO2 28.0 mmHg (35.0-45.0) L Arterial Blood Partial Pressure O2 97.8 mmHg (75.0-100.0) Arterial Blood HCO3 23.8 mmol/L (22.0-26.0) Arterial Blood Oxygen Saturation 97.5 % (95-100) Arterial Blood Base Excess 2.1 (-2-2) H Harvey Test Positive Test 09/09/18 09:30 Lactic Acid Level 3.80 mmol/L (0.66-2.22) H Height (Feet): 5 Height (Inches): 6.00 Weight (Pounds): 128 Medications Current Medications Medications (Trade) Dose Ordered Sig/Julito Route PRN Reason Start Time Stop Time Status Last Admin Dose Admin Acetaminophen (Tylenol) 650 mg Q4H PRN NG Mild Pain/Temp > 100.5 09/08/18 13:30 10/08/18 13:29 09/09/18 09:13 Albuterol/ Ipratropium (Albuterol/ Ipratropium) 3 ml Q4H PRN HHN Shortness of Breath 09/07/18 15:15 09/12/18 15:14 Chlorhexidine Gluconate (Camila-Hex 2%) 1 applic DAILY@2000 TOPIC 09/07/18 20:00 10/07/18 19:59 09/08/18 20:11 Dextrose (Dextrose 50%) 25 ml Q30M PRN IV Hypoglycemia 09/08/18 13:30 10/08/18 13:29 Dextrose (Dextrose 50%) 50 ml Q30M PRN IV Hypoglycemia 09/08/18 13:30 10/08/18 13:29 Dextrose/ Electrolytes 1,000 ml @ 75 mls/hr [id number] IV 09/09/18 08:30 10/09/18 08:29 09/09/18 08:35 Heparin Sodium (Porcine) (Heparin 5000 units/ml) 5,000 units EVERY 12 HOURS SUBQ 09/07/18 21:00 10/07/18 20:59 09/09/18 08:31 Insulin Aspart (NovoLOG) EVERY 4 HOURS SUBQ 09/08/18 14:30 10/08/18 14:29 09/09/18 12:47 Loperamide HCl (Imodium) 2 mg Q4H PRN ORAL Diarrhea 09/09/18 12:00 10/09/18 11:59 Morphine Sulfate (Morphine Sulfate) 2 mg Q4H PRN IVP Severe Pain (Pain Scale 7-10) 09/07/18 15:15 09/14/18 15:14 Norepinephrine Bitartrate 8 mg/ Dextrose 558 ml @ 0 mls/hr Q24H IV 09/08/18 21:00 10/08/18 20:59 09/08/18 23:22 Ondansetron HCl (Zofran) 4 mg Q6H PRN IVP Nausea & Vomiting 09/07/18 15:15 10/07/18 15:14 Pantoprazole (Protonix) 40 mg Q12HR IVP 09/07/18 21:00 10/08/18 08:59 09/09/18 08:30 Piperacillin Sod/ Tazobactam Sod 3.375 gm/Dextrose 110 ml @ 27.5 mls/hr Q8HR IVPB 09/09/18 14:00 09/16/18 13:59 09/09/18 14:00 Polyethylene Glycol (Miralax) 17 gm DAILYPRN PRN ORAL Constipation 09/07/18 15:15 10/07/18 15:14 Sodium Chloride 500 ml @ 999 mls/hr Q31M PRN IV SBP<90mmHg 09/08/18 11:00 10/08/18 10:59 09/08/18 12:34 Vancomycin HCl (Vanco rx to dose) 1 ea DAILY PRN MISC PER PHARMACY 09/07/18 16:30 10/07/18 16:29 Assessment/Plan Problem List: (1) Decubitus skin ulcer Assessment & Plan: Pt presents with multiple skin issues. Intact serous blister noted to lateral R abd (L)2.6cm x (W)2.2cm. Intact serous blister lateral R abd (L)0.7cm x (W)1.4cm. 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 Erythema with induration along borders. Buttocks without evidence of skin breakdown. Both heels are dry and easily blanchable. Tx.Plan: Cleanse wound R Hip with Saline.Recommend Silvasorb gel .Apply Cavilon Skin Barrier periwound.Cover with Optifoam drsg every 3 Days and prn. Apply Cavilon Skin Barrier to Blisters (2) R abd. Cover with Optifoam drsg.Change every 7 days and PRN. Apply Moisture barrier to sacrum .Cover with Optifoam .Change every 7 days and prn. Air Fluidized mattress. Apply Cavilon to both heels .Off-load heels with pillow. ICD Codes: L89.90 - Pressure ulcer of unspecified site, unspecified stage SNOMED: 458245326 (2) Septic shock Assessment & Plan: cont current care ICD Codes: A41.9 - Sepsis, unspecified organism; R65.21 - Severe sepsis with septic shock SNOMED: 94833284 (3) Protein-calorie malnutrition, severe Assessment & Plan: will need nutritional optimization to recover and heal wounds nutrition consult ICD Codes: E43 - Unspecified severe protein-calorie malnutrition SNOMED: 293285734 Isreal Lynne Sep 09, 2018 16:15
--- NOTE | 2018-09-09 17:17 | Cardiac Electrophysiology PN ---
Assessment/Plan Assessment/Plan 1. Septic shock with high Lactic acid. The patient already received 8 L of IV fluids and is getting 75 mL an hour of D5 N. On 10 mcg of Levophed. 2. Sinus tachycardia with heart rate in 140s due to the patient's septic shock and dehydration. No evidence of atrial fibrillation or any other supraventricular tachycardia. Echocardiogram showing ejection fraction of 75%. 3. Troponin elevation, likely due to renal failure.Dwn to 0.195. Echocardiogram showed ejection fraction of 75%. 4. Respiratory failure on the vent 5. Rhabdomyolysis with CPK in thousands. May be contributing to renal failure. We will repeat CPK as well as cardiac enzymes. 6. Acute renal failure and severe hyperkalemia. Further evaluation by Dr. Smalls as well as ID. 7. Dysphagia, status post PEG placement. Subjective Subjective On Vent and 10 mcg of Levo. Unresponsive with heavy diarrhea. Objective Last 24 Hour Vital Signs Date Time Temp Pulse Resp B/P (MAP) Pulse Ox O2 Delivery O2 Flow Rate FiO2 09/09/18 16:30 110 16 95/66 100 Mechanical Ventilator 45 09/09/18 16:00 45 09/09/18 16:00 Mechanical Ventilator 09/09/18 16:00 100.3 105 16 105/77 100 Mechanical Ventilator 45 09/09/18 15:30 102 16 110/79 100 Mechanical Ventilator 45 09/09/18 15:24 106 16 45 09/09/18 15:00 108 16 103/66 100 Mechanical Ventilator 45 09/09/18 14:30 104 16 103/66 100 Mechanical Ventilator 45 09/09/18 14:00 98 16 103/66 100 Mechanical Ventilator 45 09/09/18 13:30 105 16 111/74 100 Mechanical Ventilator 45 09/09/18 13:00 104 16 105/74 100 Mechanical Ventilator 45 09/09/18 12:56 104 16 45 09/09/18 12:30 110 16 111/77 100 Mechanical Ventilator 45 09/09/18 12:00 45 09/09/18 12:00 Mechanical Ventilator 09/09/18 12:00 107 09/09/18 12:00 98.2 108 16 118/78 100 Mechanical Ventilator 45 09/09/18 11:30 108 16 118/86 100 Mechanical Ventilator 45 09/09/18 11:00 108 16 113/86 100 Mechanical Ventilator 45 09/09/18 10:56 116 20 45 09/09/18 10:30 112 16 117/97 100 Mechanical Ventilator 45 09/09/18 10:00 99.9 09/09/18 10:00 87 16 106/62 99 Mechanical Ventilator 45 09/09/18 09:30 108 16 98/53 99 Mechanical Ventilator 45 09/09/18 09:13 122 17 45 09/09/18 09:00 111 16 97/70 99 Mechanical Ventilator 45 09/09/18 08:30 104 16 103/68 99 Mechanical Ventilator 45 09/09/18 08:00 45 09/09/18 08:00 Mechanical Ventilator 09/09/18 08:00 115 09/09/18 08:00 100.3 115 17 110/82 99 Mechanical Ventilator 45 09/09/18 07:36 117 15 45 09/09/18 07:30 115 16 90/75 99 Mechanical Ventilator 45 09/09/18 07:00 109 16 88/60 99 Mechanical Ventilator 45 09/09/18 06:30 104 16 95/75 99 Mechanical Ventilator 45 09/09/18 06:00 88/61 09/09/18 06:00 112 16 84/51 99 Mechanical Ventilator 45 09/09/18 05:30 107 16 112/79 99 Mechanical Ventilator 45 09/09/18 05:00 107 18 100/73 99 Mechanical Ventilator 45 09/09/18 05:00 100/73 09/09/18 04:57 110 20 45 09/09/18 04:30 112 18 81/63 99 Mechanical Ventilator 45 09/09/18 04:00 45 09/09/18 04:00 108 09/09/18 04:00 100/74 09/09/18 04:00 Mechanical Ventilator 09/09/18 04:00 98.0 112 18 100/74 99 Mechanical Ventilator 45 09/09/18 03:30 112 18 105/74 99 Mechanical Ventilator 45 09/09/18 03:24 103 29 45 09/09/18 03:15 112 18 89/55 99 Mechanical Ventilator 45 09/09/18 03:00 108 18 78/60 100 Mechanical Ventilator 45 09/09/18 03:00 78/60 09/09/18 02:45 112 17 74/58 98 Mechanical Ventilator 45 09/09/18 02:30 116 16 79/59 98 Mechanical Ventilator 45 09/09/18 02:00 87/60 09/09/18 02:00 112 17 87/60 98 Mechanical Ventilator 45 09/09/18 01:30 115 16 45 09/09/18 01:30 123 17 88/65 98 Mechanical Ventilator 45 09/09/18 01:00 92/62 09/09/18 01:00 115 16 92/62 100 Mechanical Ventilator 45 09/09/18 00:30 112 18 92/60 100 Mechanical Ventilator 45 09/09/18 00:00 Mechanical Ventilator 09/09/18 00:00 99.0 112 18 98/69 100 Mechanical Ventilator 45 09/09/18 00:00 115 09/09/18 00:00 45 09/09/18 00:00 100/57 09/08/18 23:45 112 18 95/66 100 Mechanical Ventilator 45 09/08/18 23:30 113 15 81/60 98 Mechanical Ventilator 45 09/08/18 23:22 94/67 09/08/18 23:17 116 16 45 09/08/18 23:15 123 15 77/57 98 Mechanical Ventilator 45 09/08/18 23:00 115 16 94/67 100 Mechanical Ventilator 45 09/08/18 23:00 94/60 09/08/18 22:45 115 16 105/71 100 Mechanical Ventilator 45 09/08/18 22:30 115 16 108/75 100 Mechanical Ventilator 45 09/08/18 22:15 130 20 95/68 98 Mechanical Ventilator 45 09/08/18 22:00 118 16 97/67 100 Mechanical Ventilator 45 09/08/18 22:00 97/67 09/08/18 21:45 117 16 100/67 100 Mechanical Ventilator 45 09/08/18 21:30 118 17 99/65 100 Mechanical Ventilator 45 09/08/18 21:30 117 16 45 09/08/18 21:15 117 17 118/78 100 Mechanical Ventilator 45 09/08/18 21:05 116/80 09/08/18 21:00 100/64 09/08/18 21:00 129 20 100/64 97 Mechanical Ventilator 45 09/08/18 20:45 120 16 116/80 100 Mechanical Ventilator 45 09/08/18 20:30 119 16 107/72 100 Mechanical Ventilator 45 09/08/18 20:15 129 16 116/77 97 Mechanical Ventilator 45 09/08/18 20:00 Mechanical Ventilator 09/08/18 20:00 100.1 120 16 111/76 100 Mechanical Ventilator 45 09/08/18 20:00 120 09/08/18 20:00 111/76 09/08/18 20:00 45 09/08/18 19:45 127 19 118/75 98 Mechanical Ventilator 45 09/08/18 19:30 121 16 45 09/08/18 19:30 121 16 106/67 100 Mechanical Ventilator 45 09/08/18 19:15 121 16 113/73 100 Mechanical Ventilator 45 09/08/18 19:00 100.5 124 17 97/60 99 Mechanical Ventilator 45 09/08/18 18:50 107/70 09/08/18 18:30 124 19 102/55 99 Mechanical Ventilator 45 09/08/18 18:00 122 19 107/74 100 Mechanical Ventilator 45 09/08/18 18:00 122 18 107/74 100 Mechanical Ventilator 45 09/08/18 18:00 107/74 09/08/18 17:30 121 19 114/74 100 Mechanical Ventilator 45 09/08/18 17:05 116/76 09/08/18 17:05 119 17 45 09/08/18 17:00 121 16 116/76 98 Mechanical Ventilator 45 Intake and Output 09/08/18 09/09/18 19:00 07:00 Intake Total 5362.30 ml 1912.75 ml Output Total 2845 ml 1750 ml Balance 2517.30 ml 162.75 ml IV Total 5362.30 ml 1912.75 ml Output Urine Total 2845 ml 1750 ml # Bowel Movements 5 1 Laboratory Tests Test 09/08/18 17:15 09/08/18 21:45 09/09/18 04:45 09/09/18 08:20 Lactic Acid Level 5.80 mmol/L (0.4-2.0) H 5.00 mmol/L (0.4-2.0) H 3.40 mmol/L (0.4-2.0) H White Blood Count 8.2 K/UL (4.8-10.8) # Red Blood Count 3.18 M/UL (4.70-6.10) L Hemoglobin 9.8 G/DL (14.2-18.0) L Hematocrit 28.8 % (42.0-52.0) L Mean Corpuscular Volume 91 FL (80-99) Mean Corpuscular Hemoglobin 30.7 PG (27.0-31.0) Mean Corpuscular Hemoglobin Concent 33.9 G/DL (32.0-36.0) Red Cell Distribution Width 12.7 % (11.6-14.8) Platelet Count 133 K/UL (150-450) L Mean Platelet Volume 8.7 FL (6.5-10.1) Neutrophils (%) (Auto) % (45.0-75.0) Lymphocytes (%) (Auto) % (20.0-45.0) Monocytes (%) (Auto) % (1.0-10.0) Eosinophils (%) (Auto) % (0.0-3.0) Basophils (%) (Auto) % (0.0-2.0) Sodium Level 132 MMOL/L (136-145) L Potassium Level 2.5 MMOL/L (3.5-5.1) *L Chloride Level 98 MMOL/L (98-107) Carbon Dioxide Level 22 MMOL/L (21-32) Anion Gap 12 mmol/L (5-15) Blood Urea Nitrogen 35 mg/dL (7-18) H Creatinine 2.4 MG/DL (0.55-1.30) H Estimat Glomerular Filtration Rate 27.8 mL/min (>60) Glucose Level 136 MG/DL (74-106) H Uric Acid 5.2 MG/DL (2.6-7.2) Calcium Level 7.7 MG/DL (8.5-10.1) L Phosphorus Level 2.7 MG/DL (2.5-4.9) Magnesium Level 2.1 MG/DL (1.8-2.4) Total Bilirubin 0.9 MG/DL (0.2-1.0) Gamma Glutamyl Transpeptidase 11 U/L (5-85) Aspartate Amino Transf (AST/SGOT) 58 U/L (15-37) H Alanine Aminotransferase (ALT/SGPT) 43 U/L (12-78) Alkaline Phosphatase 66 U/L (46-116) Total Creatine Kinase 1189 U/L (26-308) H Troponin I 0.195 ng/mL (0.000-0.056) C-Reactive Protein, Quantitative 44.9 mg/dL (0.00-0.90) H Pro-B-Type Natriuretic Peptide 41923 pg/mL (0-125) H Total Protein 5.0 G/DL (6.4-8.2) L Albumin 2.1 G/DL (3.4-5.0) L Globulin 2.9 g/dL Albumin/Globulin Ratio 0.7 (1.0-2.7) L Thyroid Stimulating Hormone (TSH) 0.482 uiU/mL (0.358-3.740) Free Thyroxine 1.03 NG/DL (0.76-1.46) Arterial Blood pH 7.548 (7.350-7.450) Arterial Blood Partial Pressure CO2 28.0 mmHg (35.0-45.0) L Arterial Blood Partial Pressure O2 97.8 mmHg (75.0-100.0) Arterial Blood HCO3 23.8 mmol/L (22.0-26.0) Arterial Blood Oxygen Saturation 97.5 % (95-100) Arterial Blood Base Excess 2.1 (-2-2) H Harvey Test Positive Test 09/09/18 09:30 09/09/18 16:25 Lactic Acid Level 3.80 mmol/L (0.66-2.22) H Pending Microbiology Date/Time Source Procedure Growth Status 09/07/18 13:20 Blood Blood Culture - Preliminary Resulted 09/07/18 13:05 Blood Blood Culture - Preliminary Resulted 09/07/18 20:00 Sputum Gram Stain - Final Resulted 09/07/18 20:00 Sputum Culture - Preliminary Gram Positive Cocci Resulted 09/07/18 15:05 Nasal Nares MRSA Culture - Final NO METHICILLIN RESISTANT STAPH AUREUS... Complete 09/07/18 13:36 Nasal Nares Influenza Types A,B Antigen (JIMY) - Final Complete 09/07/18 20:00 Urine,Clean Catch Urine Culture - Preliminary NO GROWTH AFTER 24 HOURS Resulted 09/07/18 15:53 Urine,Clean Catch Urine Culture - Preliminary NO GROWTH AFTER 24 HOURS Resulted 09/07/18 15:05 Rectum VRE Culture - Final Enterococcus Faecalis - Vre Complete 09/07/18 15:05 Rectum - Final NO CARBAPENEM-RESISTANT ENTEROBACTERI... Complete Objective HEENT: Orally intubted. LUNGS: Coarse rhonchi. CARDIOVASCULAR: Regular S1 and S2. Tachycardic. ABDOMEN: Soft, status post G-tube. EXTREMITIES: No pitting edema. Jasbir Madsen MD Sep 09, 2018 17:17
--- NOTE | 2018-09-09 18:49 | Cardiology Report ---
APPROVED REPORT EKG Measurement Heart [id number] depression, probably normal Borderline ECG
[2018-09-09] MEDS: Dyna-Hex 2% Top Sol 2oz TOPIC SCH (20:37)
[2018-09-09] MEDS: Norepinephrine Bitartrate 8 MG in D5W 500ml 550 ML IV SCH (21:00)
[2018-09-10] VITALS (60 sets, daily range): BP systolic 75–116; BP diastolic 48–86
[2018-09-10] MEDS: NovoLOG Insulin Flexpen SUBQ SCH ×6 (01:00→20:33)
[2018-09-10] MEDS: D5NS w/KCl 40mEq 1000ml 1,000 ML IV SCH ×2 (02:00→10:32)
[2018-09-10] MEDS ORDERED: LORazepam 1mg tab ORAL PRN (04:00)
[2018-09-10] MEDS: Piperacillin/Tazobactam 3.375 GM in D5W 110 ML IVPB SCH ×3 (05:00→21:49)
[2018-09-10 05:30] LABS: HEMOGLOBIN 9.5 G/DL (14.2-18.0); MEAN CORPUSCULAR VOLUME 91 FL (80-99); PLATELET COUNT 124 K/UL (150-450); RED BLOOD COUNT 3.18 M/UL (4.70-6.10); RED CELL DISTRIBUTION WIDTH 12.7 % (11.6-14.8); WHITE BLOOD COUNT 5.5 K/UL (4.8-10.8)
[2018-09-10 05:51] LABS: ALANINE AMINOTRANSFERASE 43 U/L (12-78); ALBUMIN 1.8 G/DL (3.4-5.0); ALBUMIN/GLOBULIN RATIO 0.6 (1.0-2.7); ALKALINE PHOSPHATASE 77 U/L (46-116); ANION GAP 13 mmol/L (5-15); ASPARTATE AMINO TRANSFERASE 67 U/L (15-37); BILIRUBIN,TOTAL 0.9 MG/DL (0.2-1.0); BLOOD UREA NITROGEN 20 mg/dL (7-18); CALCIUM 7.4 MG/DL (8.5-10.1); CARBON DIOXIDE 22 MMOL/L (21-32); CHLORIDE 101 MMOL/L (98-107); CREATININE 1.9 MG/DL (0.55-1.30); SODIUM 135 MMOL/L (136-145)
[2018-09-10 05:59] LABS: POTASSIUM 2.5 MMOL/L (3.5-5.1)
[2018-09-10 06:38] LABS: PHOSPHORUS 1.6 MG/DL (2.5-4.9)
[2018-09-10 06:57] LABS: % IRON SATURATION 14 % (15-50); IRON 10 ug/dL (50-175); TOTAL IRON BINDING CAPACITY 74 ug/dL (250-450)
[2018-09-10] MEDS ORDERED: Vancomycin 750mg/NS 250ml IVPB ONE (08:00)
[2018-09-10] MEDS: Pantoprazole Inj IVP SCH ×2 (08:36→20:32)
--- NOTE | 2018-09-10 08:47 | Infectious Diseases Prog Note ---
Assessment/Plan Assessment/Plan 62 yo male with PMHx of Quadriplegia with G-tube, HTN, DM and Schizophenia who was [facility] ED [facility] for AMS. Sepsis - Probably PNA but will f/u other cultures No intubated on vent 45% CXR 09/07/18 - possible left sided consolidation Inf neg 09/07/18 BCx 1/2 sets GPR 09/07/18 SCx - NF 09/07/18 UCx - Neg No leukocytosis Febrile to 103 on admit HTN DM Schizophenia Quadriplegia. G- tube dependent Plan - Continue Ceftriaxone #2 - Continue Vancmocyin #4 - 09/09/18 Ertapenem #3 pending Cx - f/u cultures - Urine Legionalla - Monitor CBC and temps We will continue to follow the patient during this hospitalization. Subjective Allergies: Coded Allergies: No Known Allergies (Unverified , 08/14/18) Subjective C. diff neg Afebrile No leukocytosis Objective Vital Signs Last 24 Hour Vital Signs Date Time Temp Pulse Resp B/P (MAP) Pulse Ox O2 Delivery O2 Flow Rate FiO2 09/10/18 07:14 101 16 35 09/10/18 07:00 94 16 97/64 100 Mechanical Ventilator 35 09/10/18 07:00 97/64 09/10/18 06:30 95 16 100/65 100 Mechanical Ventilator 35 09/10/18 06:00 80/52 09/10/18 06:00 99.9 102 16 80/52 100 Mechanical Ventilator 35 09/10/18 05:30 98 16 95/60 100 Mechanical Ventilator 35 09/10/18 05:00 99 16 90/59 100 Mechanical Ventilator 35 09/10/18 05:00 90/59 09/10/18 04:50 95 16 35 09/10/18 04:30 96 16 104/67 100 Mechanical Ventilator 35 09/10/18 04:00 Mechanical Ventilator 09/10/18 04:00 75/48 09/10/18 04:00 99.6 100 16 75/48 99 Mechanical Ventilator 35 09/10/18 03:36 98 16 35 09/10/18 03:30 102 16 91/61 100 Mechanical Ventilator 35 09/10/18 03:00 106 16 94/60 100 Mechanical Ventilator 35 09/10/18 03:00 94/60 09/10/18 02:30 96 16 90/61 100 Mechanical Ventilator 35 09/10/18 02:00 102 16 114/73 100 Mechanical Ventilator 35 09/10/18 02:00 114/73 09/10/18 01:30 96 17 98/58 100 Mechanical Ventilator 35 09/10/18 01:16 99 16 35 09/10/18 01:00 98/53 09/10/18 01:00 95 16 89/54 100 Mechanical Ventilator 35 09/10/18 00:30 99.2 106 14 93/60 100 Mechanical Ventilator 35 09/10/18 00:00 101 16 94/58 100 Mechanical Ventilator 35 09/10/18 00:00 102 09/10/18 00:00 35 09/10/18 00:00 Mechanical Ventilator 09/10/18 00:00 83/53 09/09/18 23:30 106 16 83/54 100 Mechanical Ventilator 35 09/09/18 23:00 101/53 09/09/18 23:00 100 16 101/53 100 Mechanical Ventilator 35 09/09/18 22:42 108 20 35 09/09/18 22:30 103 16 93/51 100 Mechanical Ventilator 35 09/09/18 22:00 102 20 88/57 100 Mechanical Ventilator 35 09/09/18 22:00 80/56 09/09/18 21:30 108 14 86/53 94 Mechanical Ventilator 35 09/09/18 21:08 107 21 35 09/09/18 21:00 93/63 09/09/18 21:00 108 19 91/62 94 Mechanical Ventilator 35 09/09/18 20:30 105 19 79/55 99 Mechanical Ventilator 35 09/09/18 20:00 109 09/09/18 20:00 Mechanical Ventilator 09/09/18 20:00 35 09/09/18 20:00 98.8 100 19 76/53 99 Mechanical Ventilator 35 09/09/18 19:30 102 19 76/53 99 Mechanical Ventilator 35 09/09/18 19:21 106 21 35 09/09/18 19:00 102 16 93/63 100 Mechanical Ventilator 45 09/09/18 18:30 108 16 90/60 100 Mechanical Ventilator 45 09/09/18 18:00 104 16 102/60 100 Mechanical Ventilator 45 09/09/18 17:30 105 16 106/62 100 Mechanical Ventilator 45 09/09/18 17:00 104 16 98/67 100 Mechanical Ventilator 45 09/09/18 16:56 115 16 45 09/09/18 16:30 110 16 95/66 100 Mechanical Ventilator 45 09/09/18 16:00 45 09/09/18 16:00 Mechanical Ventilator 09/09/18 16:00 104 09/09/18 16:00 100.3 105 16 105/77 100 Mechanical Ventilator 45 09/09/18 15:30 102 16 110/79 100 Mechanical Ventilator 45 09/09/18 15:24 106 16 45 09/09/18 15:00 108 16 103/66 100 Mechanical Ventilator 45 09/09/18 14:30 104 16 103/66 100 Mechanical Ventilator 45 09/09/18 14:00 98 16 103/66 100 Mechanical Ventilator 45 09/09/18 13:30 105 16 111/74 100 Mechanical Ventilator 45 09/09/18 13:00 104 16 105/74 100 Mechanical Ventilator 45 09/09/18 12:56 104 16 45 09/09/18 12:30 110 16 111/77 100 Mechanical Ventilator 45 09/09/18 12:00 45 09/09/18 12:00 Mechanical Ventilator 09/09/18 12:00 107 09/09/18 12:00 98.2 108 16 118/78 100 Mechanical Ventilator 45 09/09/18 11:30 108 16 118/86 100 Mechanical Ventilator 45 09/09/18 11:00 108 16 113/86 100 Mechanical Ventilator 45 09/09/18 10:56 116 20 45 09/09/18 10:30 112 16 117/97 100 Mechanical Ventilator 45 09/09/18 10:00 99.9 09/09/18 10:00 87 16 106/62 99 Mechanical Ventilator 45 09/09/18 09:30 108 16 98/53 99 Mechanical Ventilator 45 09/09/18 09:13 122 17 45 09/09/18 09:00 111 16 97/70 99 Mechanical Ventilator 45 Height (Feet): 5 Height (Inches): 6.00 Weight (Pounds): 129 Objective Gen: NAD, On vent satting well HEENT: NCAT, MMM, EOMI LUNGS: CTAB, No W/C, CARDS: RRR, S1, S2, No M/R/G, ABD: Soft, NT, distended, + BS,G tube (No E/P) NEURO: Intubated, not following Microbiology Date/Time Source Procedure Growth Status 09/07/18 13:20 Blood Blood Culture - Preliminary Gram Positive Fidencio Resulted 09/07/18 13:05 Blood Blood Culture - Preliminary Resulted 09/07/18 20:00 Sputum Gram Stain - Final Complete 09/07/18 20:00 Sputum Sputum Culture - Final NORMAL UPPER RESPIRATORY HEATH PRESENT Complete 09/07/18 15:05 Nasal Nares MRSA Culture - Final NO METHICILLIN RESISTANT STAPH AUREUS... Complete 09/07/18 13:36 Nasal Nares Influenza Types A,B Antigen (JIMY) - Final Complete 09/09/18 17:00 Stool Clostridium difficile Toxin Assay - Final Complete 09/07/18 20:00 Urine,Clean Catch Urine Culture - Preliminary NO GROWTH AFTER 24 HOURS Resulted 09/07/18 15:53 Urine,Clean Catch Urine Culture - Preliminary NO GROWTH AFTER 24 HOURS Resulted 09/07/18 15:05 Rectum VRE Culture - Final Enterococcus Faecalis - Vre Complete 09/07/18 15:05 Rectum - Final NO CARBAPENEM-RESISTANT ENTEROBACTERI... Complete Laboratory Tests Test 09/09/18 09:30 09/09/18 16:25 09/09/18 21:40 09/10/18 04:00 Lactic Acid Level 3.80 mmol/L (0.66-2.22) H 3.10 mmol/L (0.4-2.0) H 3.70 mmol/L (0.4-2.0) H White Blood Count 5.5 K/UL (4.8-10.8) Red Blood Count 3.18 M/UL (4.70-6.10) L Hemoglobin 9.5 G/DL (14.2-18.0) L Hematocrit 29.0 % (42.0-52.0) L Mean Corpuscular Volume 91 FL (80-99) Mean Corpuscular Hemoglobin 29.8 PG (27.0-31.0) Mean Corpuscular Hemoglobin Concent 32.8 G/DL (32.0-36.0) Red Cell Distribution Width 12.7 % (11.6-14.8) Platelet Count 124 K/UL (150-450) L Mean Platelet Volume 8.1 FL (6.5-10.1) Neutrophils (%) (Auto) % (45.0-75.0) Lymphocytes (%) (Auto) % (20.0-45.0) Monocytes (%) (Auto) % (1.0-10.0) Eosinophils (%) (Auto) % (0.0-3.0) Basophils (%) (Auto) % (0.0-2.0) Sodium Level 135 MMOL/L (136-145) L Potassium Level 2.5 MMOL/L (3.5-5.1) *L Chloride Level 101 MMOL/L (98-107) Carbon Dioxide Level 22 MMOL/L (21-32) Anion Gap 13 mmol/L (5-15) Blood Urea Nitrogen 20 mg/dL (7-18) H Creatinine 1.9 MG/DL (0.55-1.30) H Estimat Glomerular Filtration Rate 36.3 mL/min (>60) Glucose Level 101 MG/DL (74-106) Hemoglobin A1c 6.1 % (4.3-6.0) H Calcium Level 7.4 MG/DL (8.5-10.1) L Phosphorus Level 1.6 MG/DL (2.5-4.9) L Magnesium Level 2.0 MG/DL (1.8-2.4) Iron Level 10 ug/dL (50-175) L Total Iron Binding Capacity 74 ug/dL (250-450) L Percent Iron Saturation 14 % (15-50) L Unsaturated Iron Binding 64 ug/dL (112-346) L Ferritin 201 NG/ML (8-388) Total Bilirubin 0.9 MG/DL (0.2-1.0) Aspartate Amino Transf (AST/SGOT) 67 U/L (15-37) H Alanine Aminotransferase (ALT/SGPT) 43 U/L (12-78) Alkaline Phosphatase 77 U/L (46-116) Total Protein 4.9 G/DL (6.4-8.2) L Albumin 1.8 G/DL (3.4-5.0) L Globulin 3.1 g/dL Albumin/Globulin Ratio 0.6 (1.0-2.7) L Random Vancomycin Level 6.9 ug/mL Test 09/10/18 08:20 Arterial Blood pH 7.536 (7.350-7.450) Arterial Blood Partial Pressure CO2 23.2 mmHg (35.0-45.0) *L Arterial Blood Partial Pressure O2 95.2 mmHg (75.0-100.0) Arterial Blood HCO3 19.2 mmol/L (22.0-26.0) L Arterial Blood Oxygen Saturation 97.3 % (95-100) Arterial Blood Base Excess -2.1 (-2-2) L Harvey Test Positive Current Medications Medications (Trade) Dose Ordered Sig/Julito Route PRN Reason Start Time Stop Time Status Last Admin Dose Admin Acetaminophen (Tylenol) 650 mg Q4H PRN NG Mild Pain/Temp > 100.5 09/08/18 13:30 10/08/18 13:29 09/09/18 09:13 Albuterol/ Ipratropium (Albuterol/ Ipratropium) 3 ml Q4H PRN HHN Shortness of Breath 09/07/18 15:15 09/12/18 15:14 Chlorhexidine Gluconate (Camila-Hex 2%) 1 applic DAILY@2000 TOPIC 09/07/18 20:00 10/07/18 19:59 09/09/18 20:37 Dextrose (Dextrose 50%) 25 ml Q30M PRN IV Hypoglycemia 09/08/18 13:30 10/08/18 13:29 Dextrose (Dextrose 50%) 50 ml Q30M PRN IV Hypoglycemia 09/08/18 13:30 10/08/18 13:29 Dextrose/ Electrolytes 1,000 ml @ 75 mls/hr [id number] IV 09/09/18 08:30 10/09/18 08:29 09/10/18 02:00 Heparin Sodium (Porcine) (Heparin 5000 units/ml) 5,000 units EVERY 12 HOURS SUBQ 09/07/18 21:00 10/07/18 20:59 09/09/18 20:38 Insulin Aspart (NovoLOG) EVERY 4 HOURS SUBQ 09/08/18 14:30 10/08/18 14:29 09/10/18 01:00 Loperamide HCl (Imodium) 2 mg Q4H PRN ORAL Diarrhea 09/09/18 12:00 10/09/18 11:59 Lorazepam (Ativan) 1 mg Q6H PRN ORAL For Anxiety 09/10/18 04:00 09/17/18 03:59 Morphine Sulfate (Morphine Sulfate) 2 mg Q4H PRN IVP Severe Pain (Pain Scale 7-10) 09/07/18 15:15 2/19 15:14 Norepinephrine Bitartrate 8 mg/ Dextrose 558 ml @ 0 mls/hr Q24H IV 09/08/18 21:00 10/08/18 20:59 09/09/18 21:00 Ondansetron HCl (Zofran) 4 mg Q6H PRN IVP Nausea & Vomiting 09/07/18 15:15 10/07/18 15:14 Pantoprazole (Protonix) 40 mg Q12HR IVP 09/07/18 21:00 10/08/18 08:59 09/10/18 08:36 Piperacillin Sod/ Tazobactam Sod 3.375 gm/Dextrose 110 ml @ 27.5 mls/hr Q8HR IVPB 09/09/18 14:00 09/16/18 13:59 09/10/18 05:00 Polyethylene Glycol (Miralax) 17 gm DAILYPRN PRN ORAL Constipation 09/07/18 15:15 10/07/18 15:14 Potassium Phosphate 30 mm/ Sodium Chloride 285 ml @ 47.5 mls/hr ONCE IV 09/10/18 09:00 09/10/18 11:00 Potassium Chloride 100 ml @ 50 mls/hr Q2H IVPB 09/10/18 08:30 09/10/18 14:29 09/10/18 08:36 Risperidone (RisperDAL) 0.25 mg QHS ORAL 09/10/18 21:00 10/10/18 20:59 Sodium Chloride 500 ml @ 999 mls/hr Q31M PRN IV SBP<90mmHg 09/08/18 11:00 10/08/18 10:59 09/08/18 12:34 Vancomycin HCl (Vanco rx to dose) 1 ea DAILY PRN MISC PER PHARMACY 09/07/18 16:30 10/07/18 16:29 Vancomycin/Sodium Chloride 250 ml @ 166.667 mls/hr ONCE IVPB 09/10/18 11:00 09/10/18 13:00 Asim De Leon MD Sep 10, 2018 08:47
[2018-09-10] MEDS: Heparin 5000 units/ml inj SUBQ SCH ×2 (08:59→20:33)
[2018-09-10] MEDS ORDERED: Potassium Phosphate 30 MM in NS 275 ML IV SCH (09:00)
--- NOTE | 2018-09-10 09:12 | Cardiology Progress Note ---
Assessment/Plan Status: stable Assessment/Plan Assessment/Plan Assessment/Plan 1. Septic shock: On 10 mcg of Levophed and IV fluids 2. Sinus tachycardia with heart rate in 140s due to the patient's septic shock and dehydration. No evidence of atrial fibrillation or any other supraventricular tachycardia. Echocardiogram showing ejection fraction of 75%. 3. Troponin elevation, likely due to renal failure.. Echocardiogram showed ejection fraction of 75%. NO indication for cardiac cath or stress testing at this time Multifactorial from sepsis and renal failure 4. Respiratory failure on the vent, continue suctioning and pulmonary toilet 5. Rhabdomyolysis with CPK in thousands. May be contributing to renal failure. Continue IV fluid hydrataion 6. Acute renal failure and severe hyperkalemia. Further evaluation by Dr. Smalls as well as ID. 7. Dysphagia, status post PEG placement. Subjective Cardiovascular: Reports: no symptoms Respiratory: Reports: no symptoms Gastrointestinal/Abdominal: Reports: no symptoms Genitourinary: Reports: no symptoms Subjective Coverage for [employer] Pressors being titrated down. Patient in and out of SR/ST, Levophed at 10 mcg Objective Last 24 Hour Vital Signs Date Time Temp Pulse Resp B/P (MAP) Pulse Ox O2 Delivery O2 Flow Rate FiO2 09/10/18 07:14 101 16 35 09/10/18 07:00 94 16 97/64 100 Mechanical Ventilator 35 09/10/18 07:00 97/64 09/10/18 06:30 95 16 100/65 100 Mechanical Ventilator 35 09/10/18 06:00 80/52 09/10/18 06:00 99.9 102 16 80/52 100 Mechanical Ventilator 35 09/10/18 05:30 98 16 95/60 100 Mechanical Ventilator 35 09/10/18 05:00 99 16 90/59 100 Mechanical Ventilator 35 09/10/18 05:00 90/59 09/10/18 04:50 95 16 35 09/10/18 04:30 96 16 104/67 100 Mechanical Ventilator 35 09/10/18 04:00 Mechanical Ventilator 09/10/18 04:00 75/48 09/10/18 04:00 99.6 100 16 75/48 99 Mechanical Ventilator 35 09/10/18 03:36 98 16 35 09/10/18 03:30 102 16 91/61 100 Mechanical Ventilator 35 09/10/18 03:00 106 16 94/60 100 Mechanical Ventilator 35 09/10/18 03:00 94/60 09/10/18 02:30 96 16 90/61 100 Mechanical Ventilator 35 09/10/18 02:00 102 16 114/73 100 Mechanical Ventilator 35 09/10/18 02:00 114/73 09/10/18 01:30 96 17 98/58 100 Mechanical Ventilator 35 09/10/18 01:16 99 16 35 09/10/18 01:00 98/53 09/10/18 01:00 95 16 89/54 100 Mechanical Ventilator 35 09/10/18 00:30 99.2 106 14 93/60 100 Mechanical Ventilator 35 09/10/18 00:00 101 16 94/58 100 Mechanical Ventilator 35 09/10/18 00:00 102 09/10/18 00:00 35 09/10/18 00:00 Mechanical Ventilator 09/10/18 00:00 83/53 09/09/18 23:30 106 16 83/54 100 Mechanical Ventilator 35 09/09/18 23:00 101/53 09/09/18 23:00 100 16 101/53 100 Mechanical Ventilator 35 09/09/18 22:42 108 20 35 09/09/18 22:30 103 16 93/51 100 Mechanical Ventilator 35 09/09/18 22:00 102 20 88/57 100 Mechanical Ventilator 35 09/09/18 22:00 80/56 09/09/18 21:30 108 14 86/53 94 Mechanical Ventilator 35 09/09/18 21:08 107 21 35 09/09/18 21:00 93/63 09/09/18 21:00 108 19 91/62 94 Mechanical Ventilator 35 09/09/18 20:30 105 19 79/55 99 Mechanical Ventilator 35 09/09/18 20:00 109 09/09/18 20:00 Mechanical Ventilator 09/09/18 20:00 35 09/09/18 20:00 98.8 100 19 76/53 99 Mechanical Ventilator 35 09/09/18 19:30 102 19 76/53 99 Mechanical Ventilator 35 09/09/18 19:21 106 21 35 09/09/18 19:00 102 16 93/63 100 Mechanical Ventilator 45 09/09/18 18:30 108 16 90/60 100 Mechanical Ventilator 45 09/09/18 18:00 104 16 102/60 100 Mechanical Ventilator 45 09/09/18 17:30 105 16 106/62 100 Mechanical Ventilator 45 09/09/18 17:00 104 16 98/67 100 Mechanical Ventilator 45 09/09/18 16:56 115 16 45 09/09/18 16:30 110 16 95/66 100 Mechanical Ventilator 45 09/09/18 16:00 45 09/09/18 16:00 Mechanical Ventilator 09/09/18 16:00 104 09/09/18 16:00 100.3 105 16 105/77 100 Mechanical Ventilator 45 09/09/18 15:30 102 16 110/79 100 Mechanical Ventilator 45 09/09/18 15:24 106 16 45 09/09/18 15:00 108 16 103/66 100 Mechanical Ventilator 45 09/09/18 14:30 104 16 103/66 100 Mechanical Ventilator 45 09/09/18 14:00 98 16 103/66 100 Mechanical Ventilator 45 09/09/18 13:30 105 16 111/74 100 Mechanical Ventilator 45 09/09/18 13:00 104 16 105/74 100 Mechanical Ventilator 45 09/09/18 12:56 104 16 45 09/09/18 12:30 110 16 111/77 100 Mechanical Ventilator 45 09/09/18 12:00 45 09/09/18 12:00 Mechanical Ventilator 09/09/18 12:00 107 09/09/18 12:00 98.2 108 16 118/78 100 Mechanical Ventilator 45 09/09/18 11:30 108 16 118/86 100 Mechanical Ventilator 45 09/09/18 11:00 108 16 113/86 100 Mechanical Ventilator 45 09/09/18 10:56 116 20 45 09/09/18 10:30 112 16 117/97 100 Mechanical Ventilator 45 09/09/18 10:00 99.9 09/09/18 10:00 87 16 106/62 99 Mechanical Ventilator 45 09/09/18 09:30 108 16 98/53 99 Mechanical Ventilator 45 09/09/18 09:13 122 17 45 General Appearance: no apparent distress, on vent EENT: PERRL/EOMI, normal ENT inspection, TMs normal, pharynx normal Neck: non-tender, normal alignment, supple, normal inspection, no JVD Rhythm: NSR, ST Cardiovascular: normal peripheral pulses, normal rate, regular rhythm, tachycardia Respiratory/Chest: chest wall non-tender, no respiratory distress, crackles/ rales Abdomen: normal bowel sounds, non tender Extremities: normal range of motion, non-tender Neurologic: order entry representative II-XII grossly normal, no motor/sensory deficits, unresponsiveness Intake and Output 09/09/18 09/10/18 19:00 07:00 Intake Total 1005.77 ml 1367.62 ml Output Total 1630 ml 2805 ml Balance -624.23 ml -1437.38 ml IV Total 1005.77 ml 1367.62 ml Output Urine Total 1605 ml 1305 ml Stool Total 1500 ml Drainage Total 25 ml # Bowel Movements 1 Laboratory Tests Test 09/09/18 09:30 09/09/18 16:25 09/09/18 21:40 09/10/18 04:00 Lactic Acid Level 3.80 mmol/L (0.66-2.22) H 3.10 mmol/L (0.4-2.0) H 3.70 mmol/L (0.4-2.0) H White Blood Count 5.5 K/UL (4.8-10.8) Red Blood Count 3.18 M/UL (4.70-6.10) L Hemoglobin 9.5 G/DL (14.2-18.0) L Hematocrit 29.0 % (42.0-52.0) L Mean Corpuscular Volume 91 FL (80-99) Mean Corpuscular Hemoglobin 29.8 PG (27.0-31.0) Mean Corpuscular Hemoglobin Concent 32.8 G/DL (32.0-36.0) Red Cell Distribution Width 12.7 % (11.6-14.8) Platelet Count 124 K/UL (150-450) L Mean Platelet Volume 8.1 FL (6.5-10.1) Neutrophils (%) (Auto) % (45.0-75.0) Lymphocytes (%) (Auto) % (20.0-45.0) Monocytes (%) (Auto) % (1.0-10.0) Eosinophils (%) (Auto) % (0.0-3.0) Basophils (%) (Auto) % (0.0-2.0) Sodium Level 135 MMOL/L (136-145) L Potassium Level 2.5 MMOL/L (3.5-5.1) *L Chloride Level 101 MMOL/L (98-107) Carbon Dioxide Level 22 MMOL/L (21-32) Anion Gap 13 mmol/L (5-15) Blood Urea Nitrogen 20 mg/dL (7-18) H Creatinine 1.9 MG/DL (0.55-1.30) H Estimat Glomerular Filtration Rate 36.3 mL/min (>60) Glucose Level 101 MG/DL (74-106) Hemoglobin A1c 6.1 % (4.3-6.0) H Calcium Level 7.4 MG/DL (8.5-10.1) L Phosphorus Level 1.6 MG/DL (2.5-4.9) L Magnesium Level 2.0 MG/DL (1.8-2.4) Iron Level 10 ug/dL (50-175) L Total Iron Binding Capacity 74 ug/dL (250-450) L Percent Iron Saturation 14 % (15-50) L Unsaturated Iron Binding 64 ug/dL (112-346) L Ferritin 201 NG/ML (8-388) Total Bilirubin 0.9 MG/DL (0.2-1.0) Aspartate Amino Transf (AST/SGOT) 67 U/L (15-37) H Alanine Aminotransferase (ALT/SGPT) 43 U/L (12-78) Alkaline Phosphatase 77 U/L (46-116) Total Protein 4.9 G/DL (6.4-8.2) L Albumin 1.8 G/DL (3.4-5.0) L Globulin 3.1 g/dL Albumin/Globulin Ratio 0.6 (1.0-2.7) L Vitamin B12 Level Pending Folate Pending Random Vancomycin Level 6.9 ug/mL Test 09/10/18 08:20 Arterial Blood pH 7.536 (7.350-7.450) Arterial Blood Partial Pressure CO2 23.2 mmHg (35.0-45.0) *L Arterial Blood Partial Pressure O2 95.2 mmHg (75.0-100.0) Arterial Blood HCO3 19.2 mmol/L (22.0-26.0) L Arterial Blood Oxygen Saturation 97.3 % (95-100) Arterial Blood Base Excess -2.1 (-2-2) L Harvey Test Positive Microbiology Date/Time Source Procedure Growth Status 09/07/18 13:20 Blood Blood Culture - Preliminary Gram Positive Fidencio Resulted 09/07/18 13:05 Blood Blood Culture - Preliminary Resulted 09/07/18 20:00 Sputum Gram Stain - Final Complete 09/07/18 20:00 Sputum Sputum Culture - Final NORMAL UPPER RESPIRATORY HEATH PRESENT Complete 09/07/18 15:05 Nasal Nares MRSA Culture - Final NO METHICILLIN RESISTANT STAPH AUREUS... Complete 09/07/18 13:36 Nasal Nares Influenza Types A,B Antigen (JIMY) - Final Complete 09/09/18 17:00 Stool Clostridium difficile Toxin Assay - Final Complete 09/07/18 20:00 Urine,Clean Catch Urine Culture - Preliminary NO GROWTH AFTER 24 HOURS Resulted 09/07/18 15:53 Urine,Clean Catch Urine Culture - Preliminary NO GROWTH AFTER 24 HOURS Resulted 09/07/18 15:05 Rectum VRE Culture - Final Enterococcus Faecalis - Vre Complete 09/07/18 15:05 Rectum - Final NO CARBAPENEM-RESISTANT ENTEROBACTERI... Complete Asim Hrenandez MD Sep 10, 2018 09:12
[2018-09-10] MEDS ORDERED: Loperamide 2mg cap ORAL SCH (09:21)
--- NOTE | 2018-09-10 10:14 | Nephrology Progress Note ---
Assessment/Plan Problem List: (1) ATN (acute tubular necrosis) (2) Septic shock (3) Lactic acid acidosis (4) Metabolic acidosis (5) Hyperkalemia (6) G tube feedings (7) Acute respiratory failure Assessment over all improved: presented with Shock , likely septic Acute renal failure Acute metabolic acidosis Hyperkalemia PEG Recent Pneumonia Plan plan: pulmonary support Fluid challenge Silva K and Phos supplement as needed Pressors as needed antibiotics monitor renal parameters and ABG no need for dialysis as renal failure improving Subjective ROS Limited/Unobtainable: Yes Objective Objective Last 24 Hour Vital Signs Date Time Temp Pulse Resp B/P (MAP) Pulse Ox O2 Delivery O2 Flow Rate FiO2 09/10/18 09:17 97 16 35 09/10/18 07:14 101 16 35 09/10/18 07:00 94 16 97/64 100 Mechanical Ventilator 35 09/10/18 07:00 97/64 09/10/18 06:30 95 16 100/65 100 Mechanical Ventilator 35 09/10/18 06:00 80/52 09/10/18 06:00 99.9 102 16 80/52 100 Mechanical Ventilator 35 09/10/18 05:30 98 16 95/60 100 Mechanical Ventilator 35 09/10/18 05:00 99 16 90/59 100 Mechanical Ventilator 35 09/10/18 05:00 90/59 09/10/18 04:50 95 16 35 09/10/18 04:30 96 16 104/67 100 Mechanical Ventilator 35 09/10/18 04:00 Mechanical Ventilator 09/10/18 04:00 75/48 09/10/18 04:00 99.6 100 16 75/48 99 Mechanical Ventilator 35 09/10/18 03:36 98 16 35 09/10/18 03:30 102 16 91/61 100 Mechanical Ventilator 35 09/10/18 03:00 106 16 94/60 100 Mechanical Ventilator 35 09/10/18 03:00 94/60 09/10/18 02:30 96 16 90/61 100 Mechanical Ventilator 35 09/10/18 02:00 102 16 114/73 100 Mechanical Ventilator 35 09/10/18 02:00 114/73 09/10/18 01:30 96 17 98/58 100 Mechanical Ventilator 35 09/10/18 01:16 99 16 35 09/10/18 01:00 98/53 09/10/18 01:00 95 16 89/54 100 Mechanical Ventilator 35 09/10/18 00:30 99.2 106 14 93/60 100 Mechanical Ventilator 35 09/10/18 00:00 101 16 94/58 100 Mechanical Ventilator 35 09/10/18 00:00 102 09/10/18 00:00 35 09/10/18 00:00 Mechanical Ventilator 09/10/18 00:00 83/53 09/09/18 23:30 106 16 83/54 100 Mechanical Ventilator 35 09/09/18 23:00 101/53 09/09/18 23:00 100 16 101/53 100 Mechanical Ventilator 35 09/09/18 22:42 108 20 35 09/09/18 22:30 103 16 93/51 100 Mechanical Ventilator 35 09/09/18 22:00 102 20 88/57 100 Mechanical Ventilator 35 09/09/18 22:00 80/56 09/09/18 21:30 108 14 86/53 94 Mechanical Ventilator 35 09/09/18 21:08 107 21 35 09/09/18 21:00 93/63 09/09/18 21:00 108 19 91/62 94 Mechanical Ventilator 35 09/09/18 20:30 105 19 79/55 99 Mechanical Ventilator 35 09/09/18 20:00 109 09/09/18 20:00 Mechanical Ventilator 09/09/18 20:00 35 09/09/18 20:00 98.8 100 19 76/53 99 Mechanical Ventilator 35 09/09/18 19:30 102 19 76/53 99 Mechanical Ventilator 35 09/09/18 19:21 106 21 35 09/09/18 19:00 102 16 93/63 100 Mechanical Ventilator 45 09/09/18 18:30 108 16 90/60 100 Mechanical Ventilator 45 09/09/18 18:00 104 16 102/60 100 Mechanical Ventilator 45 09/09/18 17:30 105 16 106/62 100 Mechanical Ventilator 45 09/09/18 17:00 104 16 98/67 100 Mechanical Ventilator 45 09/09/18 16:56 115 16 45 09/09/18 16:30 110 16 95/66 100 Mechanical Ventilator 45 09/09/18 16:00 45 09/09/18 16:00 Mechanical Ventilator 09/09/18 16:00 104 09/09/18 16:00 100.3 105 16 105/77 100 Mechanical Ventilator 45 09/09/18 15:30 102 16 110/79 100 Mechanical Ventilator 45 09/09/18 15:24 106 16 45 09/09/18 15:00 108 16 103/66 100 Mechanical Ventilator 45 09/09/18 14:30 104 16 103/66 100 Mechanical Ventilator 45 09/09/18 14:00 98 16 103/66 100 Mechanical Ventilator 45 09/09/18 13:30 105 16 111/74 100 Mechanical Ventilator 45 09/09/18 13:00 104 16 105/74 100 Mechanical Ventilator 45 09/09/18 12:56 104 16 45 09/09/18 12:30 110 16 111/77 100 Mechanical Ventilator 45 09/09/18 12:00 45 09/09/18 12:00 Mechanical Ventilator 09/09/18 12:00 107 09/09/18 12:00 98.2 108 16 118/78 100 Mechanical Ventilator 45 09/09/18 11:30 108 16 118/86 100 Mechanical Ventilator 45 09/09/18 11:00 108 16 113/86 100 Mechanical Ventilator 45 09/09/18 10:56 116 20 45 09/09/18 10:30 112 16 117/97 100 Mechanical Ventilator 45 Intake and Output 09/09/18 09/10/18 19:00 07:00 Intake Total 1005.77 ml 1367.62 ml Output Total 1630 ml 2805 ml Balance -624.23 ml -1437.38 ml IV Total 1005.77 ml 1367.62 ml Output Urine Total 1605 ml 1305 ml Stool Total 1500 ml Drainage Total 25 ml # Bowel Movements 1 Laboratory Tests 09/09/18 16:25: Lactic Acid Level 3.10H 09/09/18 21:40: Lactic Acid Level 3.70H 09/10/18 04:00: White Blood Count 5.5, Red Blood Count 3.18L, Hemoglobin 9.5L, Hematocrit 29.0L , Mean Corpuscular Volume 91, Mean Corpuscular Hemoglobin 29.8, Mean Corpuscular Hemoglobin Concent 32.8, Red Cell Distribution Width 12.7, Platelet Count 124L, Mean Platelet Volume 8.1, Neutrophils (%) (Auto) , Lymphocytes (%) ( Auto) , Monocytes (%) (Auto) , Eosinophils (%) (Auto) , Basophils (%) (Auto) , Sodium Level 135L, Potassium Level 2.5*L, Chloride Level 101, Carbon Dioxide Level 22, Anion Gap 13, Blood Urea Nitrogen 20H, Creatinine 1.9H, Estimat Glomerular Filtration Rate 36.3, Glucose Level 101, Hemoglobin A1c 6.1H, Calcium Level 7.4L, Phosphorus Level 1.6L, Magnesium Level 2.0, Iron Level 10L, Total Iron Binding Capacity 74L, Percent Iron Saturation 14L, Unsaturated Iron Binding 64L, Ferritin 201, Total Bilirubin 0.9, Aspartate Amino Transf (AST/SGOT ) 67H, Alanine Aminotransferase (ALT/SGPT) 43, Alkaline Phosphatase 77, Total Protein 4.9L, Albumin 1.8L, Globulin 3.1, Albumin/Globulin Ratio 0.6L, Vitamin B12 Level 19.6L, Folate > 2000.0H, Random Vancomycin Level 6.9 09/10/18 08:20: Arterial Blood pH 7.536H, Arterial Blood Partial Pressure CO2 23.2*L, Arterial Blood Partial Pressure O2 95.2, Arterial Blood HCO3 19.2L, Arterial Blood Oxygen Saturation 97.3, Arterial Blood Base Excess -2.1L, Harvey Test Positive Height (Feet): 5 Height (Inches): 6.00 Weight (Pounds): 129 EENT: other - vented Cardiovascular: tachycardia Respiratory/Chest: decreased breath sounds Abdomen: distended Josesito Smalls MD Sep 10, 2018 10:14
--- NOTE | 2018-09-10 10:51 | Pulmonolgy Critical Care Note ---
Critical Care - Asmt/Plan Problems: (1) Septic shock (2) ATN (acute tubular necrosis) (3) Hyperkalemia (4) Metabolic acidosis Respiratory: monitor respiratory rate, adjust FIO2, CXR, ABG Cardiac: continue to monitor HR/BP Renal: F/U I&O, keep IV fluid, check electrolytes Infectious Disease: check cultures, continue antibiotics, other Gastrointestinal: hold feedings Neurologic: PRN Ativan, PRN Morphine Affect: PRN ativan Prophylaxis: Protonix, Heparin Disposition: keep in ICU Notes Reviewed: rescue boat operator, cardio Discussed with: nurses, consultants, case technicianprovider relations manager - Objective Last 24 Hour Vital Signs Date Time Temp Pulse Resp B/P (MAP) Pulse Ox O2 Delivery O2 Flow Rate FiO2 09/10/18 09:17 97 16 35 09/10/18 07:14 101 16 35 09/10/18 07:00 94 16 97/64 100 Mechanical Ventilator 35 09/10/18 07:00 97/64 09/10/18 06:30 95 16 100/65 100 Mechanical Ventilator 35 09/10/18 06:00 80/52 09/10/18 06:00 99.9 102 16 80/52 100 Mechanical Ventilator 35 09/10/18 05:30 98 16 95/60 100 Mechanical Ventilator 35 09/10/18 05:00 99 16 90/59 100 Mechanical Ventilator 35 09/10/18 05:00 90/59 09/10/18 04:50 95 16 35 09/10/18 04:30 96 16 104/67 100 Mechanical Ventilator 35 09/10/18 04:00 Mechanical Ventilator 09/10/18 04:00 75/48 09/10/18 04:00 99.6 100 16 75/48 99 Mechanical Ventilator 35 09/10/18 03:36 98 16 35 09/10/18 03:30 102 16 91/61 100 Mechanical Ventilator 35 09/10/18 03:00 106 16 94/60 100 Mechanical Ventilator 35 09/10/18 03:00 94/60 09/10/18 02:30 96 16 90/61 100 Mechanical Ventilator 35 09/10/18 02:00 102 16 114/73 100 Mechanical Ventilator 35 09/10/18 02:00 114/73 09/10/18 01:30 96 17 98/58 100 Mechanical Ventilator 35 09/10/18 01:16 99 16 35 09/10/18 01:00 98/53 09/10/18 01:00 95 16 89/54 100 Mechanical Ventilator 35 09/10/18 00:30 99.2 106 14 93/60 100 Mechanical Ventilator 35 09/10/18 00:00 101 16 94/58 100 Mechanical Ventilator 35 09/10/18 00:00 102 09/10/18 00:00 35 09/10/18 00:00 Mechanical Ventilator 09/10/18 00:00 83/53 09/09/18 23:30 106 16 83/54 100 Mechanical Ventilator 35 09/09/18 23:00 101/53 09/09/18 23:00 100 16 101/53 100 Mechanical Ventilator 35 09/09/18 22:42 108 20 35 09/09/18 22:30 103 16 93/51 100 Mechanical Ventilator 35 09/09/18 22:00 102 20 88/57 100 Mechanical Ventilator 35 09/09/18 22:00 80/56 09/09/18 21:30 108 14 86/53 94 Mechanical Ventilator 35 09/09/18 21:08 107 21 35 09/09/18 21:00 93/63 09/09/18 21:00 108 19 91/62 94 Mechanical Ventilator 35 09/09/18 20:30 105 19 79/55 99 Mechanical Ventilator 35 09/09/18 20:00 109 09/09/18 20:00 Mechanical Ventilator 09/09/18 20:00 35 09/09/18 20:00 98.8 100 19 76/53 99 Mechanical Ventilator 35 09/09/18 19:30 102 19 76/53 99 Mechanical Ventilator 35 09/09/18 19:21 106 21 35 09/09/18 19:00 102 16 93/63 100 Mechanical Ventilator 45 09/09/18 18:30 108 16 90/60 100 Mechanical Ventilator 45 09/09/18 18:00 104 16 102/60 100 Mechanical Ventilator 45 09/09/18 17:30 105 16 106/62 100 Mechanical Ventilator 45 09/09/18 17:00 104 16 98/67 100 Mechanical Ventilator 45 09/09/18 16:56 115 16 45 09/09/18 16:30 110 16 95/66 100 Mechanical Ventilator 45 09/09/18 16:00 45 09/09/18 16:00 Mechanical Ventilator 09/09/18 16:00 104 09/09/18 16:00 100.3 105 16 105/77 100 Mechanical Ventilator 45 09/09/18 15:30 102 16 110/79 100 Mechanical Ventilator 45 09/09/18 15:24 106 16 45 09/09/18 15:00 108 16 103/66 100 Mechanical Ventilator 45 09/09/18 14:30 104 16 103/66 100 Mechanical Ventilator 45 09/09/18 14:00 98 16 103/66 100 Mechanical Ventilator 45 09/09/18 13:30 105 16 111/74 100 Mechanical Ventilator 45 09/09/18 13:00 104 16 105/74 100 Mechanical Ventilator 45 09/09/18 12:56 104 16 45 09/09/18 12:30 110 16 111/77 100 Mechanical Ventilator 45 09/09/18 12:00 45 09/09/18 12:00 Mechanical Ventilator 09/09/18 12:00 107 09/09/18 12:00 98.2 108 16 118/78 100 Mechanical Ventilator 45 09/09/18 11:30 108 16 118/86 100 Mechanical Ventilator 45 09/09/18 11:00 108 16 113/86 100 Mechanical Ventilator 45 09/09/18 10:56 116 20 45 Status: awake Condition: critical HEENT: atraumatic Lungs: clear Heart: HR/BP stable Abdomen: soft, non-tender Extremities: no C/C/E, edema Micro: Microbiology Date/Time Source Procedure Growth Status 09/07/18 13:20 Blood Blood Culture - Preliminary Gram Positive Fidencio Resulted 09/07/18 13:05 Blood Blood Culture - Preliminary Resulted 09/07/18 20:00 Sputum Gram Stain - Final Complete 09/07/18 20:00 Sputum Sputum Culture - Final NORMAL UPPER RESPIRATORY HEATH PRESENT Complete 09/07/18 15:05 Nasal Nares MRSA Culture - Final NO METHICILLIN RESISTANT STAPH AUREUS... Complete 09/07/18 13:36 Nasal Nares Influenza Types A,B Antigen (JIMY) - Final Complete 09/09/18 17:00 Stool Clostridium difficile Toxin Assay - Final Complete 09/07/18 20:00 Urine,Clean Catch Urine Culture - Final NO GROWTH AFTER 48 HOURS Complete 09/07/18 15:53 Urine,Clean Catch Urine Culture - Final NO GROWTH AFTER 48 HOURS Complete 09/07/18 15:05 Rectum VRE Culture - Final Enterococcus Faecalis - Vre Complete 09/07/18 15:05 Rectum - Final NO CARBAPENEM-RESISTANT ENTEROBACTERI... Complete Accucheck: 154 Critical Care - Subjective ROS Limited/Unobtainable: No Condition: critical EKG Rhythm: Sinus Rhythm FI02: 35 Vent Support Breath Rate: 16 Vent Support Mode: AC Vent Tidal Volume: 600 Sputum Amount: Moderate PEEP: 0.0 PIP: 32 I&O: Intake and Output 09/09/18 09/10/18 19:00 07:00 Intake Total 1005.77 ml 1367.62 ml Output Total 1630 ml 2805 ml Balance -624.23 ml -1437.38 ml IV Total 1005.77 ml 1367.62 ml Output Urine Total 1605 ml 1305 ml Stool Total 1500 ml Drainage Total 25 ml # Bowel Movements 1 CXR: ELIOT, ET in good position ET-Tube: 7.5 ET Position: 23 Labs: Laboratory Tests Test 09/09/18 16:25 09/09/18 21:40 09/10/18 04:00 09/10/18 08:20 Lactic Acid Level 3.10 mmol/L (0.4-2.0) H 3.70 mmol/L (0.4-2.0) H White Blood Count 5.5 K/UL (4.8-10.8) Red Blood Count 3.18 M/UL (4.70-6.10) L Hemoglobin 9.5 G/DL (14.2-18.0) L Hematocrit 29.0 % (42.0-52.0) L Mean Corpuscular Volume 91 FL (80-99) Mean Corpuscular Hemoglobin 29.8 PG (27.0-31.0) Mean Corpuscular Hemoglobin Concent 32.8 G/DL (32.0-36.0) Red Cell Distribution Width 12.7 % (11.6-14.8) Platelet Count 124 K/UL (150-450) L Mean Platelet Volume 8.1 FL (6.5-10.1) Neutrophils (%) (Auto) % (45.0-75.0) Lymphocytes (%) (Auto) % (20.0-45.0) Monocytes (%) (Auto) % (1.0-10.0) Eosinophils (%) (Auto) % (0.0-3.0) Basophils (%) (Auto) % (0.0-2.0) Sodium Level 135 MMOL/L (136-145) L Potassium Level 2.5 MMOL/L (3.5-5.1) *L Chloride Level 101 MMOL/L (98-107) Carbon Dioxide Level 22 MMOL/L (21-32) Anion Gap 13 mmol/L (5-15) Blood Urea Nitrogen 20 mg/dL (7-18) H Creatinine 1.9 MG/DL (0.55-1.30) H Estimat Glomerular Filtration Rate 36.3 mL/min (>60) Glucose Level 101 MG/DL (74-106) Hemoglobin A1c 6.1 % (4.3-6.0) H Calcium Level 7.4 MG/DL (8.5-10.1) L Phosphorus Level 1.6 MG/DL (2.5-4.9) L Magnesium Level 2.0 MG/DL (1.8-2.4) Iron Level 10 ug/dL (50-175) L Total Iron Binding Capacity 74 ug/dL (250-450) L Percent Iron Saturation 14 % (15-50) L Unsaturated Iron Binding 64 ug/dL (112-346) L Ferritin 201 NG/ML (8-388) Total Bilirubin 0.9 MG/DL (0.2-1.0) Aspartate Amino Transf (AST/SGOT) 67 U/L (15-37) H Alanine Aminotransferase (ALT/SGPT) 43 U/L (12-78) Alkaline Phosphatase 77 U/L (46-116) Total Protein 4.9 G/DL (6.4-8.2) L Albumin 1.8 G/DL (3.4-5.0) L Globulin 3.1 g/dL Albumin/Globulin Ratio 0.6 (1.0-2.7) L Vitamin B12 Level 19.6 PG/ML (193-986) L Folate > 2000.0 NG/ML (8.6-58.9) H Random Vancomycin Level 6.9 ug/mL Arterial Blood pH 7.536 (7.350-7.450) Arterial Blood Partial Pressure CO2 23.2 mmHg (35.0-45.0) *L Arterial Blood Partial Pressure O2 95.2 mmHg (75.0-100.0) Arterial Blood HCO3 19.2 mmol/L (22.0-26.0) L Arterial Blood Oxygen Saturation 97.3 % (95-100) Arterial Blood Base Excess -2.1 (-2-2) L Harvey Test Positive Po Li MD Sep 10, 2018 10:51
[2018-09-10] MEDS ORDERED: Vancomycin 750mg/NS 250ml IVPB SCH (11:00)
--- NOTE | 2018-09-10 12:18 | Diagnostic Imaging Report ---
Indication: Dyspnea Technique: One view of the chest Comparison: 09/09/2018 Findings: Lungs appear better aerated. Allowing for this, probably no significant change in left-sided pleural effusion and perihilar and basilar consolidation, right basilar atelectasis. Stable satisfactory position of endotracheal tube Impression: Probably unchanged, over one day, findings as described
--- NOTE | 2018-09-10 12:26 | General Progress Note ---
Assessment/Plan Problem List: (1) UTI (urinary tract infection) ICD Codes: N39.0 - Urinary tract infection, site not specified SNOMED: 62531158 (2) Renal failure ICD Codes: N19 - Unspecified kidney failure SNOMED: 58080368 (3) Anemia ICD Codes: D64.9 - Anemia, unspecified SNOMED: 128709654 (4) Acute respiratory failure ICD Codes: J96.00 - Acute respiratory failure, unspecified whether with hypoxia or hypercapnia SNOMED: 45328927 (5) Pneumonia ICD Codes: J18.9 - Pneumonia, unspecified organism SNOMED: 083657054 (6) Septic shock ICD Codes: A41.9 - Sepsis, unspecified organism; R65.21 - Severe sepsis with septic shock SNOMED: 66336043 (7) ATN (acute tubular necrosis) ICD Codes: N17.0 - Acute kidney failure with tubular necrosis SNOMED: 70548929 Status: unchanged Assessment/Plan vent abx wound care neph f/u cbc bmp am ltach eval Subjective Constitutional: Reports: weakness Allergies: Coded Allergies: No Known Allergies (Unverified , 08/14/18) All Systems: reviewed and negative except above Subjective intubated sedated in icu Objective Last 24 Hour Vital Signs Date Time Temp Pulse Resp B/P (MAP) Pulse Ox O2 Delivery O2 Flow Rate FiO2 09/10/18 09:17 97 16 35 09/10/18 08:00 35 09/10/18 08:00 Mechanical Ventilator 09/10/18 07:14 101 16 35 09/10/18 07:00 94 16 97/64 100 Mechanical Ventilator 35 09/10/18 07:00 97/64 09/10/18 06:30 95 16 100/65 100 Mechanical Ventilator 35 09/10/18 06:00 80/52 09/10/18 06:00 99.9 102 16 80/52 100 Mechanical Ventilator 35 09/10/18 05:30 98 16 95/60 100 Mechanical Ventilator 35 09/10/18 05:00 99 16 90/59 100 Mechanical Ventilator 35 09/10/18 05:00 90/59 09/10/18 04:50 95 16 35 09/10/18 04:30 96 16 104/67 100 Mechanical Ventilator 35 09/10/18 04:00 Mechanical Ventilator 09/10/18 04:00 75/48 09/10/18 04:00 99.6 100 16 75/48 99 Mechanical Ventilator 35 09/10/18 03:36 98 16 35 09/10/18 03:30 102 16 91/61 100 Mechanical Ventilator 35 09/10/18 03:00 106 16 94/60 100 Mechanical Ventilator 35 09/10/18 03:00 94/60 09/10/18 02:30 96 16 90/61 100 Mechanical Ventilator 35 09/10/18 02:00 102 16 114/73 100 Mechanical Ventilator 35 09/10/18 02:00 114/73 09/10/18 01:30 96 17 98/58 100 Mechanical Ventilator 35 09/10/18 01:16 99 16 35 09/10/18 01:00 98/53 09/10/18 01:00 95 16 89/54 100 Mechanical Ventilator 35 09/10/18 00:30 99.2 106 14 93/60 100 Mechanical Ventilator 35 09/10/18 00:00 101 16 94/58 100 Mechanical Ventilator 35 09/10/18 00:00 102 09/10/18 00:00 35 09/10/18 00:00 Mechanical Ventilator 09/10/18 00:00 83/53 09/09/18 23:30 106 16 83/54 100 Mechanical Ventilator 35 09/09/18 23:00 101/53 09/09/18 23:00 100 16 101/53 100 Mechanical Ventilator 35 09/09/18 22:42 108 20 35 09/09/18 22:30 103 16 93/51 100 Mechanical Ventilator 35 09/09/18 22:00 102 20 88/57 100 Mechanical Ventilator 35 09/09/18 22:00 80/56 09/09/18 21:30 108 14 86/53 94 Mechanical Ventilator 35 09/09/18 21:08 107 21 35 09/09/18 21:00 93/63 09/09/18 21:00 108 19 91/62 94 Mechanical Ventilator 35 09/09/18 20:30 105 19 79/55 99 Mechanical Ventilator 35 09/09/18 20:00 109 09/09/18 20:00 Mechanical Ventilator 09/09/18 20:00 35 09/09/18 20:00 98.8 100 19 76/53 99 Mechanical Ventilator 35 09/09/18 19:30 102 19 76/53 99 Mechanical Ventilator 35 09/09/18 19:21 106 21 35 09/09/18 19:00 102 16 93/63 100 Mechanical Ventilator 45 09/09/18 18:30 108 16 90/60 100 Mechanical Ventilator 45 09/09/18 18:00 104 16 102/60 100 Mechanical Ventilator 45 09/09/18 17:30 105 16 106/62 100 Mechanical Ventilator 45 09/09/18 17:00 104 16 98/67 100 Mechanical Ventilator 45 09/09/18 16:56 115 16 45 09/09/18 16:30 110 16 95/66 100 Mechanical Ventilator 45 09/09/18 16:00 45 09/09/18 16:00 Mechanical Ventilator 09/09/18 16:00 104 09/09/18 16:00 100.3 105 16 105/77 100 Mechanical Ventilator 45 09/09/18 15:30 102 16 110/79 100 Mechanical Ventilator 45 09/09/18 15:24 106 16 45 09/09/18 15:00 108 16 103/66 100 Mechanical Ventilator 45 09/09/18 14:30 104 16 103/66 100 Mechanical Ventilator 45 09/09/18 14:00 98 16 103/66 100 Mechanical Ventilator 45 09/09/18 13:30 105 16 111/74 100 Mechanical Ventilator 45 09/09/18 13:00 104 16 105/74 100 Mechanical Ventilator 45 09/09/18 12:56 104 16 45 09/09/18 12:30 110 16 111/77 100 Mechanical Ventilator 45 Intake and Output 09/09/18 09/10/18 19:00 07:00 Intake Total 1005.77 ml 1367.62 ml Output Total 1630 ml 2805 ml Balance -624.23 ml -1437.38 ml IV Total 1005.77 ml 1367.62 ml Output Urine Total 1605 ml 1305 ml Stool Total 1500 ml Drainage Total 25 ml # Bowel Movements 1 Laboratory Tests 09/09/18 16:25: Lactic Acid Level 3.10H 09/09/18 21:40: Lactic Acid Level 3.70H 09/10/18 04:00: White Blood Count 5.5, Red Blood Count 3.18L, Hemoglobin 9.5L, Hematocrit 29.0L , Mean Corpuscular Volume 91, Mean Corpuscular Hemoglobin 29.8, Mean Corpuscular Hemoglobin Concent 32.8, Red Cell Distribution Width 12.7, Platelet Count 124L, Mean Platelet Volume 8.1, Neutrophils (%) (Auto) , Lymphocytes (%) ( Auto) , Monocytes (%) (Auto) , Eosinophils (%) (Auto) , Basophils (%) (Auto) , Sodium Level 135L, Potassium Level 2.5*L, Chloride Level 101, Carbon Dioxide Level 22, Anion Gap 13, Blood Urea Nitrogen 20H, Creatinine 1.9H, Estimat Glomerular Filtration Rate 36.3, Glucose Level 101, Hemoglobin A1c 6.1H, Calcium Level 7.4L, Phosphorus Level 1.6L, Magnesium Level 2.0, Iron Level 10L, Total Iron Binding Capacity 74L, Percent Iron Saturation 14L, Unsaturated Iron Binding 64L, Ferritin 201, Total Bilirubin 0.9, Aspartate Amino Transf (AST/SGOT ) 67H, Alanine Aminotransferase (ALT/SGPT) 43, Alkaline Phosphatase 77, Total Protein 4.9L, Albumin 1.8L, Globulin 3.1, Albumin/Globulin Ratio 0.6L, Vitamin B12 Level 19.6L, Folate > 2000.0H, Random Vancomycin Level 6.9 09/10/18 08:20: Arterial Blood pH 7.536H, Arterial Blood Partial Pressure CO2 23.2*L, Arterial Blood Partial Pressure O2 95.2, Arterial Blood HCO3 19.2L, Arterial Blood Oxygen Saturation 97.3, Arterial Blood Base Excess -2.1L, Harvey Test Positive Height (Feet): 5 Height (Inches): 6.00 Weight (Pounds): 129 General Appearance: lethargic EENT: normal ENT inspection Neck: normal alignment Cardiovascular: normal peripheral pulses, normal rate, regular rhythm Respiratory/Chest: chest wall non-tender, lungs clear, normal breath sounds Abdomen: normal bowel sounds, non tender, soft Extremities: normal inspection Edema: no edema noted Arm (L), no edema noted Arm (R), no edema noted Leg (L), no edema noted Leg (R), no edema noted Pedal (L), no edema noted Pedal (R), no edema noted Generalized Neurologic: motor weakness Skin: normal pigmentation, warm/dry Jasmeet ReynosoEmilia Sep 10, 2018 12:26
[2018-09-10] MEDS: Loperamide 2mg cap ORAL PRN (13:54)
--- NOTE | 2018-09-10 18:00 | Consultation ---
DATE OF CONSULTATION: 09/10/2018 CONSULTING PHYSICIAN: Virgie Mcdermott M.D. HISTORY OF PRESENT ILLNESS: He is a 62-year-old male patient with septic shock. He is in the ICU. I saw him in the ICU per request of his attending physician. He has requested the patient to be seen because he has a history of paranoid schizophrenia. He has had septic shock. Currently in ICU, intubated, but he is very confused, disorganized, and per nursing staff, he has bouts of intermittent agitation. He did appear to be sedated on interview today. He was sedated by the nurses in the ICU since the patient has intermittent bouts of agitation, irritability, combativeness intermittently due to his schizophrenia. Currently, he has been taken off all the psychiatric medications. That is why daily psychiatric consultation requested by his primary physician to get him restarted on his medications to help stabilize his mood, but he was nonverbal during the interview because of being intubated and sedated. MEDICAL PROBLEMS: Septic shock. Please see Internal Medicine note. ALLERGIES: No known drug allergies. PSYCHIATRIC HISTORY: He has a history of paranoid schizophrenia with acute exacerbation. He has had previous psychiatric admissions. SUBSTANCE ABUSE HISTORY: Denies. SOCIAL HISTORY: This patient is currently living in a [facility]. FAMILY PSYCHIATRIC HISTORY: Denies. PAIN ASSESSMENT: 0/10. DEVELOPMENTAL PROBLEMS: Denies. STRENGTHS: He is motivated to get better. He has a place to live. WEAKNESSES AND LIABILITIES: Impulsive, minimal support system. MENTAL STATUS EXAM: A 62-year-old male. Appearance is disheveled. Attitude irritable and agitated. Affect, guarded and restricted. Intellect poor. Mood depressed and anxious. Motor activity, psychomotor agitation. Attention span is poor. Orientation x2. Speech is low volume and slurred. Thought process, disorganized, logical. Thought content, paranoid delusions. Insight and judgment is poor. DIAGNOSES: 1. Paranoid schizophrenia with acute exacerbation. 2. Medical, septic shock. 3. Psychosocial stressors, financial. PLAN: Treat the patient with Risperdal 0.25 mg at bedtime and Ativan 1 mg every 6 hours p.r.n. anxiety and agitation. Provide him with 20 minutes of behavior management for psychotherapy . Chart reviewed. . Virgie Mcdermott M.D. DR: ESCOBAR JOB#: [id number] CC:
[2018-09-10] MEDS: Norepinephrine Bitartrate 8 MG in D5W 500ml 550 ML IV SCH (18:37)
[2018-09-10] MEDS: Dyna-Hex 2% Top Sol 2oz TOPIC SCH (19:31)
--- NOTE | 2018-09-10 22:45 | Consultation ---
DATE OF CONSULTATION: 09/10/2018 PSYCHOTHERAPY CONSULTATION PROGRESS NOTE CONSULTING PHYSICIAN: Jacinto Ruiz PsyD. TREATING ATTENDING PHYSICIAN: Jasmeet Reynoso D.O. HISTORY OF PRESENT ILLNESS: This is a 62-year-old male patient. The patient at this time has altered mental status, unable to provide any viable information. He is a poor historian at this time. He came to the hospital for weakness, lethargy, respiratory failure, sepsis, and shock. He has been intubated, is now in the ICU, he was lethargic. He has a long-term history of schizophrenia. Due to his altered mental status, he was referred for psychotherapeutic service; however, at this time, this clinician assessed the patient. The patient is unable to respond. He is a poor historian. Significant amount of information was provided record. PAST MEDICAL HISTORY: Includes a history of G-tube, renal failure, respiratory failure. ALLERGIES: The patient has no known drug allergies. SUBSTANCE ABUSE HISTORY: There is no indication of alcohol use, illicit substance use, or smoking cigarettes. PSYCHIATRIC HISTORY: The patient has a history of paranoid schizophrenia and has been treated with psychotropic medications in the past. SOCIAL HISTORY: The patient is a 62-year-old male patient from [facility], financially sustained through [employer]. MENTAL STATUS EXAMINATION: The patient is alert. . Mood is dysphoric. Affect blunted. He is confused and disorganized. He has poor attention and concentration. Poor insight, judgment, and impulse control. DIAGNOSIS: Paranoid schizophrenia per history. PLAN: This clinician assessed the patient. Provided the patient with reality orientation, supportive psychotherapy, cognitive function, confused and disoriented. Oriented to person, place, time, and situation. The patient continues to remain very disoriented, unable to provide a viable information at this time. I assessed the patient. The patient remains lethargic, disorganized, confused and unable to provide self-care at this time. Continue with behavioral management. This clinician has reviewed the patient's chart. Discussed treatment with treatment team. psychotherapy provided to this patient, records reviewed 45 minutes. Jacinto Ruiz PsyD. DR: Tessa JOB#: [id number] CC:
[2018-09-11] VITALS (41 sets, daily range): BP systolic 80–135; BP diastolic 44–88
[2018-09-11] MEDS: NovoLOG Insulin Flexpen SUBQ SCH ×6 (00:09→20:14)
[2018-09-11] MEDS: D5NS w/KCl 40mEq 1000ml 1,000 ML IV SCH ×2 (03:08→22:01)
[2018-09-11] MEDS: Loperamide 2mg cap ORAL PRN (03:51)
[2018-09-11 05:44] LABS: HEMATOCRIT 30.1 % (42.0-52.0); HEMOGLOBIN 10.1 G/DL (14.2-18.0); MEAN CORPUSCULAR VOLUME 90 FL (80-99); PLATELET COUNT 160 K/UL (150-450); RED BLOOD COUNT 3.33 M/UL (4.70-6.10); RED CELL DISTRIBUTION WIDTH 12.8 % (11.6-14.8)
[2018-09-11] MEDS: Piperacillin/Tazobactam 3.375 GM in D5W 110 ML IVPB SCH ×3 (05:56→22:00)
[2018-09-11 06:22] LABS: ALANINE AMINOTRANSFERASE 51 U/L (12-78); ALBUMIN 1.8 G/DL (3.4-5.0); ALBUMIN/GLOBULIN RATIO 0.5 (1.0-2.7); ALKALINE PHOSPHATASE 89 U/L (46-116); ANION GAP 14 mmol/L (5-15); ASPARTATE AMINO TRANSFERASE 46 U/L (15-37); BILIRUBIN,TOTAL 1.4 MG/DL (0.2-1.0); BLOOD UREA NITROGEN 16 mg/dL (7-18); CALCIUM 7.8 MG/DL (8.5-10.1); CARBON DIOXIDE 16 MMOL/L (21-32); CHLORIDE 106 MMOL/L (98-107); CREATININE 1.5 MG/DL (0.55-1.30); PHOSPHORUS 2.6 MG/DL (2.5-4.9); POTASSIUM 3.3 MMOL/L (3.5-5.1); SODIUM 136 MMOL/L (136-145)
[2018-09-11 06:28] LABS: BILIRUBIN,DIRECT 0.4 MG/DL (0.0-0.3)
[2018-09-11] MEDS ORDERED: Vancomycin 750mg/NS 275ml IVPB ONE ×2 (07:30)
[2018-09-11] MEDS: Pantoprazole Inj IVP SCH ×2 (08:08→20:13)
[2018-09-11] MEDS: Heparin 5000 units/ml inj SUBQ SCH ×2 (08:25→20:14)
[2018-09-11 09:26] LABS: CREATINE KINASE 459 U/L (26-308)
--- NOTE | 2018-09-11 09:50 | Infectious Diseases Prog Note ---
Assessment/Plan Assessment/Plan 62 yo male with PMHx of Quadriplegia with G-tube, HTN, DM and Schizophenia who [facility]. Sepsis - Probably PNA but will f/u other cultures No intubated on vent 45% CXR 09/07/18 - possible left sided consolidation Inf neg 09/07/18 BCx 1/2 sets GPR 09/07/18 SCx - NF 09/07/18 UCx - Neg No leukocytosis Febrile to 103 on admit HTN DM Schizophenia Quadriplegia. G- tube dependent Plan - Continue Ceftriaxone #3 - Continue Vancmocyin #5 - 09/09/18 Ertapenem #3 pending Cx - f/u repeat blood cultures - Urine Legionalla - Monitor CBC and temps We will continue to follow the patient during this hospitalization. Subjective Allergies: Coded Allergies: No Known Allergies (Unverified , 08/14/18) Subjective Afebrile No leukocytosis Objective Vital Signs Last 24 Hour Vital Signs Date Time Temp Pulse Resp B/P (MAP) Pulse Ox O2 Delivery O2 Flow Rate FiO2 09/11/18 08:39 93 16 35 09/11/18 08:30 96 16 92/54 100 Mechanical Ventilator 35 09/11/18 08:00 96 16 96/56 100 Mechanical Ventilator 35 09/11/18 08:00 35 09/11/18 08:00 Mechanical Ventilator 09/11/18 07:30 99.3 94 15 93/57 100 Mechanical Ventilator 35 09/11/18 07:09 91 16 35 09/11/18 07:00 101 20 91/53 100 Mechanical Ventilator 35 09/11/18 06:00 103 20 100/59 100 Mechanical Ventilator 35 09/11/18 05:30 94 19 88/54 100 Mechanical Ventilator 35 09/11/18 05:30 102 21 35 09/11/18 05:00 88 16 93/59 100 Mechanical Ventilator 35 09/11/18 04:30 94 19 93/58 100 Mechanical Ventilator 35 09/11/18 04:00 91 09/11/18 04:00 99.3 91 15 89/55 100 Mechanical Ventilator 35 09/11/18 04:00 35 09/11/18 04:00 Mechanical Ventilator 09/11/18 03:30 93 15 91/53 100 Mechanical Ventilator 35 09/11/18 03:22 84 16 35 09/11/18 03:00 92 16 99/66 100 Mechanical Ventilator 35 09/11/18 02:30 88 16 93/59 100 Mechanical Ventilator 35 09/11/18 02:00 93 16 87/58 100 Mechanical Ventilator 35 09/11/18 01:30 89 16 95/67 100 Mechanical Ventilator 35 09/11/18 01:15 85 16 35 09/11/18 01:00 88 16 102/70 100 Mechanical Ventilator 35 09/11/18 00:30 91 18 86/58 100 Mechanical Ventilator 35 09/11/18 00:00 85 09/11/18 00:00 Mechanical Ventilator 09/11/18 00:00 35 09/11/18 00:00 91 16 112/73 100 Mechanical Ventilator 35 09/10/18 23:30 87 16 95/67 100 Mechanical Ventilator 35 09/10/18 23:20 82 16 35 09/10/18 23:00 88 17 113/77 100 Mechanical Ventilator 35 09/10/18 22:30 90 17 89/63 100 Mechanical Ventilator 35 09/10/18 22:15 91 17 92/65 100 Mechanical Ventilator 35 09/10/18 22:00 91 16 103/63 100 Mechanical Ventilator 35 09/10/18 21:45 88 16 103/67 100 Mechanical Ventilator 35 09/10/18 21:30 89 16 99/63 100 Mechanical Ventilator 35 09/10/18 21:15 88 16 112/70 100 Mechanical Ventilator 35 09/10/18 21:09 99 19 45 09/10/18 21:00 88 16 108/72 100 Mechanical Ventilator 35 09/10/18 20:45 89 17 100/61 100 Mechanical Ventilator 35 09/10/18 20:30 91 17 96/59 100 Mechanical Ventilator 35 09/10/18 20:15 87 18 101/69 100 Mechanical Ventilator 35 09/10/18 20:00 88 09/10/18 20:00 Mechanical Ventilator 09/10/18 20:00 99.5 89 18 116/74 100 Mechanical Ventilator 35 09/10/18 20:00 35 09/10/18 19:45 90 16 106/62 100 Mechanical Ventilator 35 09/10/18 19:30 101 20 45 09/10/18 19:30 90 16 114/70 100 Mechanical Ventilator 35 09/10/18 19:15 90 16 112/67 100 Mechanical Ventilator 35 09/10/18 19:00 92 16 105/75 100 Mechanical Ventilator 35 09/10/18 19:00 105/75 09/10/18 18:45 95 16 105/74 100 Mechanical Ventilator 35 09/10/18 18:37 89/57 09/10/18 18:30 95 16 101/70 100 Mechanical Ventilator 35 09/10/18 18:00 95 18 96/62 100 Mechanical Ventilator 35 09/10/18 18:00 96/62 09/10/18 17:45 97 18 103/69 100 Mechanical Ventilator 35 09/10/18 17:30 93 18 97/61 100 Mechanical Ventilator 35 09/10/18 17:15 90 19 96/64 100 Mechanical Ventilator 35 09/10/18 17:00 93 18 97/61 100 Mechanical Ventilator 35 09/10/18 17:00 89/61 09/10/18 16:38 97 18 35 09/10/18 16:30 99 17 89/57 100 Mechanical Ventilator 35 09/10/18 16:15 99 17 89/57 100 Mechanical Ventilator 35 09/10/18 16:00 35 09/10/18 16:00 90 09/10/18 16:00 Mechanical Ventilator 09/10/18 16:00 100 17 85/52 100 Mechanical Ventilator 35 09/10/18 15:45 102 17 94/56 99 Mechanical Ventilator 35 09/10/18 15:30 100.6 97 17 89/58 100 Mechanical Ventilator 35 09/10/18 15:00 97 17 86/59 100 Mechanical Ventilator 35 09/10/18 14:52 95 16 35 09/10/18 14:30 96 16 93/61 100 Mechanical Ventilator 35 09/10/18 14:00 97 18 97/65 100 Mechanical Ventilator 35 09/10/18 13:30 101 18 87/55 100 Mechanical Ventilator 35 09/10/18 13:19 101 20 35 09/10/18 13:00 100 19 87/58 100 Mechanical Ventilator 35 09/10/18 12:30 100 19 90/59 100 Mechanical Ventilator 35 09/10/18 12:00 99.2 99 17 93/64 97 Mechanical Ventilator 35 09/10/18 12:00 Mechanical Ventilator 09/10/18 12:00 35 09/10/18 12:00 99 09/10/18 11:30 97 17 101/68 97 Mechanical Ventilator 35 09/10/18 11:03 102 20 35 09/10/18 11:00 92 17 87/61 97 Mechanical Ventilator 35 09/10/18 10:30 99 17 79/58 97 Mechanical Ventilator 35 09/10/18 10:00 101 15 90/57 100 Mechanical Ventilator 35 Height (Feet): 5 Height (Inches): 6.00 Weight (Pounds): 129 Objective Gen: NAD, On vent satting well 35% O2 HEENT: NCAT, MMM, EOMI LUNGS: CTAB, No W/C, CARDS: RRR, S1, S2, No M/R/G, ABD: Soft, NT, distended, + BS,G tube (No E/P) NEURO: Intubated, not following Microbiology Date/Time Source Procedure Growth Status 09/09/18 17:00 Stool Clostridium difficile Toxin Assay - Final Complete Laboratory Tests Test 09/11/18 04:50 09/11/18 08:54 White Blood Count 5.0 K/UL (4.8-10.8) Red Blood Count 3.33 M/UL (4.70-6.10) L Hemoglobin 10.1 G/DL (14.2-18.0) L Hematocrit 30.1 % (42.0-52.0) L Mean Corpuscular Volume 90 FL (80-99) Mean Corpuscular Hemoglobin 30.3 PG (27.0-31.0) Mean Corpuscular Hemoglobin Concent 33.4 G/DL (32.0-36.0) Red Cell Distribution Width 12.8 % (11.6-14.8) Platelet Count 160 K/UL (150-450) Mean Platelet Volume 8.4 FL (6.5-10.1) Neutrophils (%) (Auto) % (45.0-75.0) Lymphocytes (%) (Auto) % (20.0-45.0) Monocytes (%) (Auto) % (1.0-10.0) Eosinophils (%) (Auto) % (0.0-3.0) Basophils (%) (Auto) % (0.0-2.0) Sodium Level 136 MMOL/L (136-145) Potassium Level 3.3 MMOL/L (3.5-5.1) L Chloride Level 106 MMOL/L (98-107) Carbon Dioxide Level 16 MMOL/L (21-32) L Anion Gap 14 mmol/L (5-15) Blood Urea Nitrogen 16 mg/dL (7-18) Creatinine 1.5 MG/DL (0.55-1.30) H Estimat Glomerular Filtration Rate 47.7 mL/min (>60) Glucose Level 179 MG/DL (74-106) H Lactic Acid Level 1.90 mmol/L (0.4-2.0) Calcium Level 7.8 MG/DL (8.5-10.1) L Phosphorus Level 2.6 MG/DL (2.5-4.9) Magnesium Level 1.6 MG/DL (1.8-2.4) L Total Bilirubin 1.4 MG/DL (0.2-1.0) H Direct Bilirubin 0.4 MG/DL (0.0-0.3) H Aspartate Amino Transf (AST/SGOT) 46 U/L (15-37) H Alanine Aminotransferase (ALT/SGPT) 51 U/L (12-78) Alkaline Phosphatase 89 U/L (46-116) Total Creatine Kinase 459 U/L (26-308) H Total Protein 5.3 G/DL (6.4-8.2) L Albumin 1.8 G/DL (3.4-5.0) L Globulin 3.5 g/dL Albumin/Globulin Ratio 0.5 (1.0-2.7) L Random Vancomycin Level 8.6 ug/mL Arterial Blood pH 7.469 (7.350-7.450) Arterial Blood Partial Pressure CO2 22.9 mmHg (35.0-45.0) *L Arterial Blood Partial Pressure O2 112.5 mmHg (75.0-100.0) H Arterial Blood HCO3 16.3 mmol/L (22.0-26.0) *L Arterial Blood Oxygen Saturation 97.7 % (95-100) Arterial Blood Base Excess -5.9 (-2-2) L Harvey Test Positive Current Medications Medications (Trade) Dose Ordered Sig/Julito Route PRN Reason Start Time Stop Time Status Last Admin Dose Admin Acetaminophen (Tylenol) 650 mg Q4H PRN NG Mild Pain/Temp > 100.5 09/08/18 13:30 10/08/18 13:29 09/09/18 09:13 Albuterol/ Ipratropium (Albuterol/ Ipratropium) 3 ml Q4H PRN HHN Shortness of Breath 09/07/18 15:15 09/12/18 15:14 Chlorhexidine Gluconate (Camila-Hex 2%) 1 applic DAILY@2000 TOPIC 09/07/18 20:00 10/07/18 19:59 09/10/18 19:31 Dextrose (Dextrose 50%) 25 ml Q30M PRN IV Hypoglycemia 09/08/18 13:30 10/08/18 13:29 Dextrose (Dextrose 50%) 50 ml Q30M PRN IV Hypoglycemia 09/08/18 13:30 10/08/18 13:29 Dextrose/ Electrolytes 1,000 ml @ 50 mls/hr Q20H IV 09/10/18 10:14 10/10/18 10:13 09/11/18 03:08 Heparin Sodium (Porcine) (Heparin 5000 units/ml) 5,000 units EVERY 12 HOURS SUBQ 09/07/18 21:00 10/07/18 20:59 09/11/18 08:25 Insulin Aspart (NovoLOG) EVERY 4 HOURS SUBQ 09/08/18 14:30 10/08/18 14:29 09/11/18 08:29 Loperamide HCl (Imodium) 4 mg TIDPRN PRN ORAL Diarrhea 09/10/18 13:00 10/10/18 12:59 09/11/18 03:51 Lorazepam (Ativan) 1 mg Q6H PRN ORAL For Anxiety 09/10/18 04:00 09/17/18 03:59 Morphine Sulfate (Morphine Sulfate) 2 mg Q4H PRN IVP Severe Pain (Pain Scale 7-10) 09/07/18 15:15 09/14/18 15:14 Norepinephrine Bitartrate 8 mg/ Dextrose 558 ml @ 0 mls/hr Q24H IV 09/08/18 21:00 10/08/18 20:59 09/10/18 18:37 Ondansetron HCl (Zofran) 4 mg Q6H PRN IVP Nausea & Vomiting 09/07/18 15:15 10/07/18 15:14 Pantoprazole (Protonix) 40 mg Q12HR IVP 09/07/18 21:00 10/08/18 08:59 09/11/18 08:08 Piperacillin Sod/ Tazobactam Sod 3.375 gm/Dextrose 110 ml @ 27.5 mls/hr Q8HR IVPB 09/09/18 14:00 09/16/18 13:59 09/11/18 05:56 Polyethylene Glycol (Miralax) 17 gm DAILYPRN PRN ORAL Constipation 09/07/18 15:15 10/07/18 15:14 Potassium Phosphate 15 mm/ Sodium Chloride 280 ml @ 46.667 mls/ hr ONCE ONCE IV 09/11/18 11:00 09/11/18 16:59 Risperidone (RisperDAL) 0.25 mg QHS ORAL 09/10/18 21:00 10/10/18 20:59 09/10/18 20:32 Sodium Chloride 500 ml @ 999 mls/hr Q31M PRN IV SBP<90mmHg 09/08/18 11:00 10/08/18 10:59 09/08/18 12:34 Vancomycin HCl (Vanco rx to dose) 1 ea DAILY PRN MISC PER PHARMACY 09/07/18 16:30 10/07/18 16:29 Asim De Leon MD Sep 11, 2018 09:50
--- NOTE | 2018-09-11 10:22 | Pulmonolgy Critical Care Note ---
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, 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, 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 Critical Care - Objective Last 24 Hour Vital Signs Date Time Temp Pulse Resp B/P (MAP) Pulse Ox O2 Delivery O2 Flow Rate FiO2 09/11/18 10:00 95 16 80/44 100 Mechanical Ventilator 35 09/11/18 10:00 80/44 09/11/18 09:00 89/51 09/11/18 08:39 93 16 35 09/11/18 08:30 96 16 92/54 100 Mechanical Ventilator 35 09/11/18 08:00 96 16 96/56 100 Mechanical Ventilator 35 09/11/18 08:00 35 09/11/18 08:00 96/57 09/11/18 08:00 Mechanical Ventilator 09/11/18 07:30 99.3 94 15 93/57 100 Mechanical Ventilator 35 09/11/18 07:30 93/57 09/11/18 07:09 91 16 35 09/11/18 07:00 101 20 91/53 100 Mechanical Ventilator 35 09/11/18 06:00 103 20 100/59 100 Mechanical Ventilator 35 09/11/18 05:30 94 19 88/54 100 Mechanical Ventilator 35 09/11/18 05:30 102 21 35 09/11/18 05:00 88 16 93/59 100 Mechanical Ventilator 35 09/11/18 04:30 94 19 93/58 100 Mechanical Ventilator 35 09/11/18 04:00 91 09/11/18 04:00 99.3 91 15 89/55 100 Mechanical Ventilator 35 09/11/18 04:00 35 09/11/18 04:00 Mechanical Ventilator 09/11/18 03:30 93 15 91/53 100 Mechanical Ventilator 35 09/11/18 03:22 84 16 35 09/11/18 03:00 92 16 99/66 100 Mechanical Ventilator 35 09/11/18 02:30 88 16 93/59 100 Mechanical Ventilator 35 09/11/18 02:00 93 16 87/58 100 Mechanical Ventilator 35 09/11/18 01:30 89 16 95/67 100 Mechanical Ventilator 35 09/11/18 01:15 85 16 35 09/11/18 01:00 88 16 102/70 100 Mechanical Ventilator 35 09/11/18 00:30 91 18 86/58 100 Mechanical Ventilator 35 09/11/18 00:00 85 09/11/18 00:00 Mechanical Ventilator 09/11/18 00:00 35 09/11/18 00:00 91 16 112/73 100 Mechanical Ventilator 35 09/10/18 23:30 87 16 95/67 100 Mechanical Ventilator 35 09/10/18 23:20 82 16 35 09/10/18 23:00 88 17 113/77 100 Mechanical Ventilator 35 09/10/18 22:30 90 17 89/63 100 Mechanical Ventilator 35 09/10/18 22:15 91 17 92/65 100 Mechanical Ventilator 35 09/10/18 22:00 91 16 103/63 100 Mechanical Ventilator 35 09/10/18 21:45 88 16 103/67 100 Mechanical Ventilator 35 09/10/18 21:30 89 16 99/63 100 Mechanical Ventilator 35 09/10/18 21:15 88 16 112/70 100 Mechanical Ventilator 35 09/10/18 21:09 99 19 45 09/10/18 21:00 88 16 108/72 100 Mechanical Ventilator 35 09/10/18 20:45 89 17 100/61 100 Mechanical Ventilator 35 09/10/18 20:30 91 17 96/59 100 Mechanical Ventilator 35 09/10/18 20:15 87 18 101/69 100 Mechanical Ventilator 35 09/10/18 20:00 88 09/10/18 20:00 Mechanical Ventilator 09/10/18 20:00 99.5 89 18 116/74 100 Mechanical Ventilator 35 09/10/18 20:00 35 09/10/18 19:45 90 16 106/62 100 Mechanical Ventilator 35 09/10/18 19:30 101 20 45 09/10/18 19:30 90 16 114/70 100 Mechanical Ventilator 35 09/10/18 19:15 90 16 112/67 100 Mechanical Ventilator 35 09/10/18 19:00 92 16 105/75 100 Mechanical Ventilator 35 09/10/18 19:00 105/75 09/10/18 18:45 95 16 105/74 100 Mechanical Ventilator 35 09/10/18 18:37 89/57 09/10/18 18:30 95 16 101/70 100 Mechanical Ventilator 35 09/10/18 18:00 95 18 96/62 100 Mechanical Ventilator 35 09/10/18 18:00 96/62 09/10/18 17:45 97 18 103/69 100 Mechanical Ventilator 35 09/10/18 17:30 93 18 97/61 100 Mechanical Ventilator 35 09/10/18 17:15 90 19 96/64 100 Mechanical Ventilator 35 09/10/18 17:00 93 18 97/61 100 Mechanical Ventilator 35 09/10/18 17:00 89/61 09/10/18 16:38 97 18 35 09/10/18 16:30 99 17 89/57 100 Mechanical Ventilator 35 09/10/18 16:15 99 17 89/57 100 Mechanical Ventilator 35 09/10/18 16:00 35 09/10/18 16:00 90 09/10/18 16:00 Mechanical Ventilator 09/10/18 16:00 100 17 85/52 100 Mechanical Ventilator 35 09/10/18 15:45 102 17 94/56 99 Mechanical Ventilator 35 09/10/18 15:30 100.6 97 17 89/58 100 Mechanical Ventilator 35 09/10/18 15:00 97 17 86/59 100 Mechanical Ventilator 35 09/10/18 14:52 95 16 35 09/10/18 14:30 96 16 93/61 100 Mechanical Ventilator 35 09/10/18 14:00 97 18 97/65 100 Mechanical Ventilator 35 09/10/18 13:30 101 18 87/55 100 Mechanical Ventilator 35 09/10/18 13:19 101 20 35 09/10/18 13:00 100 19 87/58 100 Mechanical Ventilator 35 09/10/18 12:30 100 19 90/59 100 Mechanical Ventilator 35 09/10/18 12:00 99.2 99 17 93/64 97 Mechanical Ventilator 35 09/10/18 12:00 Mechanical Ventilator 09/10/18 12:00 35 09/10/18 12:00 99 09/10/18 11:30 97 17 101/68 97 Mechanical Ventilator 35 09/10/18 11:03 102 20 35 09/10/18 11:00 92 17 87/61 97 Mechanical Ventilator 35 09/10/18 10:30 99 17 79/58 97 Mechanical Ventilator 35 Status: awake Condition: critical Neck: full ROM Lungs: rales, rhonchi Heart: HR/BP stable Abdomen: soft, non-tender Extremities: no C/C/E, edema Micro: Microbiology Date/Time Source Procedure Growth Status 09/09/18 17:00 Stool Clostridium difficile Toxin Assay - Final Complete Accucheck: 171 Critical Care - Subjective Condition: critical FI02: 35 Vent Support Breath Rate: 16 Vent Support Mode: AC Vent Tidal Volume: 600 Sputum Amount: Small PEEP: 0.0 PIP: 24 Drips: still on levophed Tube Feeding Amount: 10 I&O: Intake and Output 09/10/18 09/11/18 19:00 07:00 Intake Total 1463.82 ml 1123.50 ml Output Total 2290 ml 1405 ml Balance -826.18 ml -281.50 ml Intake Free Water 60 ml IV Total 1178.82 ml 963.50 ml Tube Feeding 40 ml Other 225 ml 120 ml Output Urine Total 1090 ml 605 ml Stool Total 1200 ml 800 ml CXR: ET in good position, ET-Tube: 7.5 ET Position: 23 Labs: Laboratory Tests Test 09/11/18 04:50 09/11/18 08:54 White Blood Count 5.0 K/UL (4.8-10.8) Red Blood Count 3.33 M/UL (4.70-6.10) L Hemoglobin 10.1 G/DL (14.2-18.0) L Hematocrit 30.1 % (42.0-52.0) L Mean Corpuscular Volume 90 FL (80-99) Mean Corpuscular Hemoglobin 30.3 PG (27.0-31.0) Mean Corpuscular Hemoglobin Concent 33.4 G/DL (32.0-36.0) Red Cell Distribution Width 12.8 % (11.6-14.8) Platelet Count 160 K/UL (150-450) Mean Platelet Volume 8.4 FL (6.5-10.1) Neutrophils (%) (Auto) % (45.0-75.0) Lymphocytes (%) (Auto) % (20.0-45.0) Monocytes (%) (Auto) % (1.0-10.0) Eosinophils (%) (Auto) % (0.0-3.0) Basophils (%) (Auto) % (0.0-2.0) Sodium Level 136 MMOL/L (136-145) Potassium Level 3.3 MMOL/L (3.5-5.1) L Chloride Level 106 MMOL/L (98-107) Carbon Dioxide Level 16 MMOL/L (21-32) L Anion Gap 14 mmol/L (5-15) Blood Urea Nitrogen 16 mg/dL (7-18) Creatinine 1.5 MG/DL (0.55-1.30) H Estimat Glomerular Filtration Rate 47.7 mL/min (>60) Glucose Level 179 MG/DL (74-106) H Lactic Acid Level 1.90 mmol/L (0.4-2.0) Calcium Level 7.8 MG/DL (8.5-10.1) L Phosphorus Level 2.6 MG/DL (2.5-4.9) Magnesium Level 1.6 MG/DL (1.8-2.4) L Total Bilirubin 1.4 MG/DL (0.2-1.0) H Direct Bilirubin 0.4 MG/DL (0.0-0.3) H Aspartate Amino Transf (AST/SGOT) 46 U/L (15-37) H Alanine Aminotransferase (ALT/SGPT) 51 U/L (12-78) Alkaline Phosphatase 89 U/L (46-116) Total Creatine Kinase 459 U/L (26-308) H Total Protein 5.3 G/DL (6.4-8.2) L Albumin 1.8 G/DL (3.4-5.0) L Globulin 3.5 g/dL Albumin/Globulin Ratio 0.5 (1.0-2.7) L Random Vancomycin Level 8.6 ug/mL Arterial Blood pH 7.469 (7.350-7.450) Arterial Blood Partial Pressure CO2 22.9 mmHg (35.0-45.0) *L Arterial Blood Partial Pressure O2 112.5 mmHg (75.0-100.0) H Arterial Blood HCO3 16.3 mmol/L (22.0-26.0) *L Arterial Blood Oxygen Saturation 97.7 % (95-100) Arterial Blood Base Excess -5.9 (-2-2) L Harvey Test Positive Po Li MD Sep 11, 2018 10:22
--- NOTE | 2018-09-11 10:31 | Cardiology Progress Note ---
Assessment/Plan Status: stable Assessment/Plan Assessment/Plan Assessment/Plan 1. Septic shock: On 5 mcg of Levophed and IV fluids 2. Sinus tachycardia with heart rate in 140s due to the patient's septic shock and dehydration. No evidence of atrial fibrillation or any other supraventricular tachycardia. Echocardiogram showing ejection fraction of 75%. 3. Troponin elevation, likely due to renal failure.. Echocardiogram showed ejection fraction of 75%. NO indication for cardiac cath or stress testing at this time Multifactorial from sepsis and renal failure 4. Respiratory failure on the vent, continue suctioning and pulmonary toilet 5. Rhabdomyolysis with CPK in thousands. May be contributing to renal failure. Continue IV fluid hydration 6. Acute renal failure and severe hyperkalemia. Further evaluation by Dr. Smalls as well as ID. 7. Dysphagia, status post PEG placement. Subjective Cardiovascular: Reports: no symptoms Respiratory: Reports: no symptoms Gastrointestinal/Abdominal: Reports: no symptoms Genitourinary: Reports: no symptoms Subjective Coverage for [employer] Pressors being titrated down. Patient in and out of SR/ST, Levophed at 5 mcg, BP 80-90 NO acute events, remains intubated, K/Mg low today - repleted Objective Last 24 Hour Vital Signs Date Time Temp Pulse Resp B/P (MAP) Pulse Ox O2 Delivery O2 Flow Rate FiO2 09/11/18 10:00 95 16 80/44 100 Mechanical Ventilator 35 09/11/18 10:00 80/44 09/11/18 09:00 89/51 09/11/18 08:39 93 16 35 09/11/18 08:30 96 16 92/54 100 Mechanical Ventilator 35 09/11/18 08:00 96 16 96/56 100 Mechanical Ventilator 35 09/11/18 08:00 35 09/11/18 08:00 96/57 09/11/18 08:00 Mechanical Ventilator 09/11/18 07:30 99.3 94 15 93/57 100 Mechanical Ventilator 35 09/11/18 07:30 93/57 09/11/18 07:09 91 16 35 09/11/18 07:00 101 20 91/53 100 Mechanical Ventilator 35 09/11/18 06:00 103 20 100/59 100 Mechanical Ventilator 35 09/11/18 05:30 94 19 88/54 100 Mechanical Ventilator 35 09/11/18 05:30 102 21 35 09/11/18 05:00 88 16 93/59 100 Mechanical Ventilator 35 09/11/18 04:30 94 19 93/58 100 Mechanical Ventilator 35 09/11/18 04:00 91 09/11/18 04:00 99.3 91 15 89/55 100 Mechanical Ventilator 35 09/11/18 04:00 35 09/11/18 04:00 Mechanical Ventilator 09/11/18 03:30 93 15 91/53 100 Mechanical Ventilator 35 09/11/18 03:22 84 16 35 09/11/18 03:00 92 16 99/66 100 Mechanical Ventilator 35 09/11/18 02:30 88 16 93/59 100 Mechanical Ventilator 35 09/11/18 02:00 93 16 87/58 100 Mechanical Ventilator 35 09/11/18 01:30 89 16 95/67 100 Mechanical Ventilator 35 09/11/18 01:15 85 16 35 09/11/18 01:00 88 16 102/70 100 Mechanical Ventilator 35 09/11/18 00:30 91 18 86/58 100 Mechanical Ventilator 35 09/11/18 00:00 85 09/11/18 00:00 Mechanical Ventilator 09/11/18 00:00 35 09/11/18 00:00 91 16 112/73 100 Mechanical Ventilator 35 09/10/18 23:30 87 16 95/67 100 Mechanical Ventilator 35 09/10/18 23:20 82 16 35 09/10/18 23:00 88 17 113/77 100 Mechanical Ventilator 35 09/10/18 22:30 90 17 89/63 100 Mechanical Ventilator 35 09/10/18 22:15 91 17 92/65 100 Mechanical Ventilator 35 09/10/18 22:00 91 16 103/63 100 Mechanical Ventilator 35 09/10/18 21:45 88 16 103/67 100 Mechanical Ventilator 35 09/10/18 21:30 89 16 99/63 100 Mechanical Ventilator 35 09/10/18 21:15 88 16 112/70 100 Mechanical Ventilator 35 09/10/18 21:09 99 19 45 09/10/18 21:00 88 16 108/72 100 Mechanical Ventilator 35 09/10/18 20:45 89 17 100/61 100 Mechanical Ventilator 35 09/10/18 20:30 91 17 96/59 100 Mechanical Ventilator 35 09/10/18 20:15 87 18 101/69 100 Mechanical Ventilator 35 09/10/18 20:00 88 09/10/18 20:00 Mechanical Ventilator 09/10/18 20:00 99.5 89 18 116/74 100 Mechanical Ventilator 35 09/10/18 20:00 35 09/10/18 19:45 90 16 106/62 100 Mechanical Ventilator 35 09/10/18 19:30 101 20 45 09/10/18 19:30 90 16 114/70 100 Mechanical Ventilator 35 09/10/18 19:15 90 16 112/67 100 Mechanical Ventilator 35 09/10/18 19:00 92 16 105/75 100 Mechanical Ventilator 35 09/10/18 19:00 105/75 09/10/18 18:45 95 16 105/74 100 Mechanical Ventilator 35 09/10/18 18:37 89/57 09/10/18 18:30 95 16 101/70 100 Mechanical Ventilator 35 09/10/18 18:00 95 18 96/62 100 Mechanical Ventilator 35 09/10/18 18:00 96/62 09/10/18 17:45 97 18 103/69 100 Mechanical Ventilator 35 09/10/18 17:30 93 18 97/61 100 Mechanical Ventilator 35 09/10/18 17:15 90 19 96/64 100 Mechanical Ventilator 35 09/10/18 17:00 93 18 97/61 100 Mechanical Ventilator 35 09/10/18 17:00 89/61 09/10/18 16:38 97 18 35 09/10/18 16:30 99 17 89/57 100 Mechanical Ventilator 35 09/10/18 16:15 99 17 89/57 100 Mechanical Ventilator 35 09/10/18 16:00 35 09/10/18 16:00 90 09/10/18 16:00 Mechanical Ventilator 09/10/18 16:00 100 17 85/52 100 Mechanical Ventilator 35 09/10/18 15:45 102 17 94/56 99 Mechanical Ventilator 35 09/10/18 15:30 100.6 97 17 89/58 100 Mechanical Ventilator 35 09/10/18 15:00 97 17 86/59 100 Mechanical Ventilator 35 09/10/18 14:52 95 16 35 09/10/18 14:30 96 16 93/61 100 Mechanical Ventilator 35 09/10/18 14:00 97 18 97/65 100 Mechanical Ventilator 35 09/10/18 13:30 101 18 87/55 100 Mechanical Ventilator 35 09/10/18 13:19 101 20 35 09/10/18 13:00 100 19 87/58 100 Mechanical Ventilator 35 09/10/18 12:30 100 19 90/59 100 Mechanical Ventilator 35 09/10/18 12:00 99.2 99 17 93/64 97 Mechanical Ventilator 35 09/10/18 12:00 Mechanical Ventilator 09/10/18 12:00 35 09/10/18 12:00 99 09/10/18 11:30 97 17 101/68 97 Mechanical Ventilator 35 09/10/18 11:03 102 20 35 09/10/18 11:00 92 17 87/61 97 Mechanical Ventilator 35 09/10/18 10:30 99 17 79/58 97 Mechanical Ventilator 35 General Appearance: no apparent distress, on vent EENT: PERRL/EOMI, normal ENT inspection, TMs normal, pharynx normal Neck: non-tender, normal alignment, supple, normal inspection, no JVD Rhythm: NSR Cardiovascular: normal peripheral pulses, normal rate, regular rhythm Respiratory/Chest: chest wall non-tender, lungs clear Abdomen: normal bowel sounds, non tender, soft, no organomegaly Extremities: normal range of motion, non-tender, normal inspection, no calf tenderness, no swelling 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, no motor/sensory deficits Intake and Output 09/10/18 09/11/18 19:00 07:00 Intake Total 1463.82 ml 1123.50 ml Output Total 2290 ml 1405 ml Balance -826.18 ml -281.50 ml Intake Free Water 60 ml IV Total 1178.82 ml 963.50 ml Tube Feeding 40 ml Other 225 ml 120 ml Output Urine Total 1090 ml 605 ml Stool Total 1200 ml 800 ml Laboratory Tests Test 09/11/18 04:50 09/11/18 08:54 White Blood Count 5.0 K/UL (4.8-10.8) Red Blood Count 3.33 M/UL (4.70-6.10) L Hemoglobin 10.1 G/DL (14.2-18.0) L Hematocrit 30.1 % (42.0-52.0) L Mean Corpuscular Volume 90 FL (80-99) Mean Corpuscular Hemoglobin 30.3 PG (27.0-31.0) Mean Corpuscular Hemoglobin Concent 33.4 G/DL (32.0-36.0) Red Cell Distribution Width 12.8 % (11.6-14.8) Platelet Count 160 K/UL (150-450) Mean Platelet Volume 8.4 FL (6.5-10.1) Neutrophils (%) (Auto) % (45.0-75.0) Lymphocytes (%) (Auto) % (20.0-45.0) Monocytes (%) (Auto) % (1.0-10.0) Eosinophils (%) (Auto) % (0.0-3.0) Basophils (%) (Auto) % (0.0-2.0) Sodium Level 136 MMOL/L (136-145) Potassium Level 3.3 MMOL/L (3.5-5.1) L Chloride Level 106 MMOL/L (98-107) Carbon Dioxide Level 16 MMOL/L (21-32) L Anion Gap 14 mmol/L (5-15) Blood Urea Nitrogen 16 mg/dL (7-18) Creatinine 1.5 MG/DL (0.55-1.30) H Estimat Glomerular Filtration Rate 47.7 mL/min (>60) Glucose Level 179 MG/DL (74-106) H Lactic Acid Level 1.90 mmol/L (0.4-2.0) Calcium Level 7.8 MG/DL (8.5-10.1) L Phosphorus Level 2.6 MG/DL (2.5-4.9) Magnesium Level 1.6 MG/DL (1.8-2.4) L Total Bilirubin 1.4 MG/DL (0.2-1.0) H Direct Bilirubin 0.4 MG/DL (0.0-0.3) H Aspartate Amino Transf (AST/SGOT) 46 U/L (15-37) H Alanine Aminotransferase (ALT/SGPT) 51 U/L (12-78) Alkaline Phosphatase 89 U/L (46-116) Total Creatine Kinase 459 U/L (26-308) H Total Protein 5.3 G/DL (6.4-8.2) L Albumin 1.8 G/DL (3.4-5.0) L Globulin 3.5 g/dL Albumin/Globulin Ratio 0.5 (1.0-2.7) L Random Vancomycin Level 8.6 ug/mL Arterial Blood pH 7.469 (7.350-7.450) Arterial Blood Partial Pressure CO2 22.9 mmHg (35.0-45.0) *L Arterial Blood Partial Pressure O2 112.5 mmHg (75.0-100.0) H Arterial Blood HCO3 16.3 mmol/L (22.0-26.0) *L Arterial Blood Oxygen Saturation 97.7 % (95-100) Arterial Blood Base Excess -5.9 (-2-2) L Harvey Test Positive Microbiology Date/Time Source Procedure Growth Status 09/09/18 17:00 Stool Clostridium difficile Toxin Assay - Final Complete Asim Hernandez MD Sep 11, 2018 10:31
[2018-09-11] MEDS ORDERED: Potassium Phosphate 15 MM in NS 275 ML IV ONE ×2 (11:00→12:00)
--- NOTE | 2018-09-11 13:23 | General Progress Note ---
Assessment/Plan Problem List: (1) UTI (urinary tract infection) ICD Codes: N39.0 - Urinary tract infection, site not specified SNOMED: 35942463 (2) Renal failure ICD Codes: N19 - Unspecified kidney failure SNOMED: 56211954 (3) Anemia ICD Codes: D64.9 - Anemia, unspecified SNOMED: 438957671 (4) Acute respiratory failure ICD Codes: J96.00 - Acute respiratory failure, unspecified whether with hypoxia or hypercapnia SNOMED: 80321961 (5) Pneumonia ICD Codes: J18.9 - Pneumonia, unspecified organism SNOMED: 358148728 (6) Septic shock ICD Codes: A41.9 - Sepsis, unspecified organism; R65.21 - Severe sepsis with septic shock SNOMED: 72821797 (7) ATN (acute tubular necrosis) ICD Codes: N17.0 - Acute kidney failure with tubular necrosis SNOMED: 20349661 Status: unchanged Assessment/Plan vent abx wound care neph f/u cbc bmp am ltach eval Subjective Constitutional: Reports: weakness Allergies: Coded Allergies: No Known Allergies (Unverified , 08/14/18) All Systems: reviewed and negative except above Subjective intubated sedated in icu Objective Last 24 Hour Vital Signs Date Time Temp Pulse Resp B/P (MAP) Pulse Ox O2 Delivery O2 Flow Rate FiO2 09/11/18 13:01 96 15 35 09/11/18 12:30 94 16 91/56 100 Mechanical Ventilator 35 09/11/18 12:00 94 09/11/18 12:00 35 09/11/18 12:00 80/50 09/11/18 12:00 Mechanical Ventilator 09/11/18 12:00 98.8 92 15 80/50 100 Mechanical Ventilator 35 09/11/18 11:30 93 15 97/50 100 Mechanical Ventilator 35 09/11/18 11:00 98 16 104/56 100 Mechanical Ventilator 35 09/11/18 11:00 93/54 09/11/18 10:40 95 12 35 09/11/18 10:00 95 16 80/44 100 Mechanical Ventilator 35 09/11/18 10:00 80/44 09/11/18 09:00 89/51 09/11/18 08:39 93 16 35 09/11/18 08:30 96 16 92/54 100 Mechanical Ventilator 35 09/11/18 08:00 85 09/11/18 08:00 96 16 96/56 100 Mechanical Ventilator 35 09/11/18 08:00 35 09/11/18 08:00 96/57 09/11/18 08:00 Mechanical Ventilator 09/11/18 07:30 99.3 94 15 93/57 100 Mechanical Ventilator 35 09/11/18 07:30 93/57 09/11/18 07:09 91 16 35 09/11/18 07:00 101 20 91/53 100 Mechanical Ventilator 35 09/11/18 06:00 103 20 100/59 100 Mechanical Ventilator 35 09/11/18 05:30 94 19 88/54 100 Mechanical Ventilator 35 09/11/18 05:30 102 21 35 09/11/18 05:00 88 16 93/59 100 Mechanical Ventilator 35 09/11/18 04:30 94 19 93/58 100 Mechanical Ventilator 35 09/11/18 04:00 91 09/11/18 04:00 99.3 91 15 89/55 100 Mechanical Ventilator 35 09/11/18 04:00 35 09/11/18 04:00 Mechanical Ventilator 09/11/18 03:30 93 15 91/53 100 Mechanical Ventilator 35 09/11/18 03:22 84 16 35 09/11/18 03:00 92 16 99/66 100 Mechanical Ventilator 35 09/11/18 02:30 88 16 93/59 100 Mechanical Ventilator 35 09/11/18 02:00 93 16 87/58 100 Mechanical Ventilator 35 09/11/18 01:30 89 16 95/67 100 Mechanical Ventilator 35 09/11/18 01:15 85 16 35 09/11/18 01:00 88 16 102/70 100 Mechanical Ventilator 35 09/11/18 00:30 91 18 86/58 100 Mechanical Ventilator 35 09/11/18 00:00 85 09/11/18 00:00 Mechanical Ventilator 09/11/18 00:00 35 09/11/18 00:00 91 16 112/73 100 Mechanical Ventilator 35 09/10/18 23:30 87 16 95/67 100 Mechanical Ventilator 35 09/10/18 23:20 82 16 35 09/10/18 23:00 88 17 113/77 100 Mechanical Ventilator 35 09/10/18 22:30 90 17 89/63 100 Mechanical Ventilator 35 09/10/18 22:15 91 17 92/65 100 Mechanical Ventilator 35 09/10/18 22:00 91 16 103/63 100 Mechanical Ventilator 35 09/10/18 21:45 88 16 103/67 100 Mechanical Ventilator 35 09/10/18 21:30 89 16 99/63 100 Mechanical Ventilator 35 09/10/18 21:15 88 16 112/70 100 Mechanical Ventilator 35 09/10/18 21:09 99 19 45 09/10/18 21:00 88 16 108/72 100 Mechanical Ventilator 35 09/10/18 20:45 89 17 100/61 100 Mechanical Ventilator 35 09/10/18 20:30 91 17 96/59 100 Mechanical Ventilator 35 09/10/18 20:15 87 18 101/69 100 Mechanical Ventilator 35 09/10/18 20:00 88 09/10/18 20:00 Mechanical Ventilator 09/10/18 20:00 99.5 89 18 116/74 100 Mechanical Ventilator 35 09/10/18 20:00 35 09/10/18 19:45 90 16 106/62 100 Mechanical Ventilator 35 09/10/18 19:30 101 20 45 09/10/18 19:30 90 16 114/70 100 Mechanical Ventilator 35 09/10/18 19:15 90 16 112/67 100 Mechanical Ventilator 35 09/10/18 19:00 92 16 105/75 100 Mechanical Ventilator 35 09/10/18 19:00 105/75 09/10/18 18:45 95 16 105/74 100 Mechanical Ventilator 35 09/10/18 18:37 89/57 09/10/18 18:30 95 16 101/70 100 Mechanical Ventilator 35 09/10/18 18:00 95 18 96/62 100 Mechanical Ventilator 35 09/10/18 18:00 96/62 09/10/18 17:45 97 18 103/69 100 Mechanical Ventilator 35 09/10/18 17:30 93 18 97/61 100 Mechanical Ventilator 35 09/10/18 17:15 90 19 96/64 100 Mechanical Ventilator 35 09/10/18 17:00 93 18 97/61 100 Mechanical Ventilator 35 09/10/18 17:00 89/61 09/10/18 16:38 97 18 35 09/10/18 16:30 99 17 89/57 100 Mechanical Ventilator 35 09/10/18 16:15 99 17 89/57 100 Mechanical Ventilator 35 09/10/18 16:00 35 09/10/18 16:00 90 09/10/18 16:00 Mechanical Ventilator 09/10/18 16:00 100 17 85/52 100 Mechanical Ventilator 35 09/10/18 15:45 102 17 94/56 99 Mechanical Ventilator 35 09/10/18 15:30 100.6 97 17 89/58 100 Mechanical Ventilator 35 09/10/18 15:00 97 17 86/59 100 Mechanical Ventilator 35 09/10/18 14:52 95 16 35 09/10/18 14:30 96 16 93/61 100 Mechanical Ventilator 35 09/10/18 14:00 97 18 97/65 100 Mechanical Ventilator 35 09/10/18 13:30 101 18 87/55 100 Mechanical Ventilator 35 Intake and Output 09/10/18 09/11/18 19:00 07:00 Intake Total 1463.82 ml 1123.50 ml Output Total 2290 ml 1405 ml Balance -826.18 ml -281.50 ml Intake Free Water 60 ml IV Total 1178.82 ml 963.50 ml Tube Feeding 40 ml Other 225 ml 120 ml Output Urine Total 1090 ml 605 ml Stool Total 1200 ml 800 ml Laboratory Tests 09/11/18 04:50: White Blood Count 5.0, Red Blood Count 3.33L, Hemoglobin 10.1L, Hematocrit 30.1L , Mean Corpuscular Volume 90, Mean Corpuscular Hemoglobin 30.3, Mean Corpuscular Hemoglobin Concent 33.4, Red Cell Distribution Width 12.8, Platelet Count 160, Mean Platelet Volume 8.4, Neutrophils (%) (Auto) , Lymphocytes (%) ( Auto) , Monocytes (%) (Auto) , Eosinophils (%) (Auto) , Basophils (%) (Auto) , Sodium Level 136, Potassium Level 3.3L, Chloride Level 106, Carbon Dioxide Level 16L, Anion Gap 14, Blood Urea Nitrogen 16, Creatinine 1.5H, Estimat Glomerular Filtration Rate 47.7, Glucose Level 179H, Lactic Acid Level 1.90, Calcium Level 7.8L, Phosphorus Level 2.6, Magnesium Level 1.6L, Total Bilirubin 1.4H, Direct Bilirubin 0.4H, Aspartate Amino Transf (AST/SGOT) 46H, Alanine Aminotransferase (ALT/SGPT) 51, Alkaline Phosphatase 89, Total Creatine Kinase 459H, Total Protein 5.3L, Albumin 1.8L, Globulin 3.5, Albumin/Globulin Ratio 0.5L, Random Vancomycin Level 8.6 09/11/18 08:54: Arterial Blood pH 7.469H, Arterial Blood Partial Pressure CO2 22.9*L, Arterial Blood Partial Pressure O2 112.5H, Arterial Blood HCO3 16.3*L, Arterial Blood Oxygen Saturation 97.7, Arterial Blood Base Excess -5.9L, Harvey Test Positive Height (Feet): 5 Height (Inches): 6.00 Weight (Pounds): 129 General Appearance: lethargic EENT: normal ENT inspection Neck: normal alignment Cardiovascular: normal peripheral pulses, normal rate, regular rhythm Respiratory/Chest: chest wall non-tender, lungs clear, normal breath sounds Abdomen: normal bowel sounds, non tender, soft Extremities: normal inspection Edema: no edema noted Arm (L), no edema noted Arm (R), no edema noted Leg (L), no edema noted Leg (R), no edema noted Pedal (L), no edema noted Pedal (R), no edema noted Generalized Neurologic: motor weakness Skin: normal pigmentation, warm/dry Jasmeet Reynoso DO Sep 11, 2018 13:23
--- NOTE | 2018-09-11 15:00 | Diagnostic Imaging Report ---
Indication: Reason For Exam: [id number] Technique: One view of the chest Comparison: 09/10/2018 Findings: Stable satisfactory position of endotracheal tube. There is suggestion of increasing pleural fluid on the left. Right basilar atelectasis persists. Impression: Left-sided pleural effusion appears slightly increased since previous exam of one 09/09/2018 Other stable findings as described
--- NOTE | 2018-09-11 18:31 | Nephrology Progress Note ---
Assessment/Plan Problem List: (1) ATN (acute tubular necrosis) (2) Septic shock (3) Lactic acid acidosis (4) Metabolic acidosis (5) Hyperkalemia (6) G tube feedings (7) Acute respiratory failure Assessment over all improved: presented with Shock , likely septic Acute renal failure Acute metabolic acidosis Hyperkalemia PEG Recent Pneumonia Plan plan: pulmonary support Fluid challenge Silva K and Phos supplement as needed Pressors as needed antibiotics monitor renal parameters and ABG no need for dialysis as renal failure improving Subjective ROS Limited/Unobtainable: Yes Objective Objective Last 24 Hour Vital Signs Date Time Temp Pulse Resp B/P (MAP) Pulse Ox O2 Delivery O2 Flow Rate FiO2 09/11/18 17:13 112 21 35 09/11/18 16:00 35 09/11/18 16:00 Mechanical Ventilator 09/11/18 16:00 106 09/11/18 15:14 107 16 35 09/11/18 15:00 108 18 97/53 100 Mechanical Ventilator 35 09/11/18 15:00 97/53 09/11/18 14:30 100 18 86/46 100 Mechanical Ventilator 35 09/11/18 14:00 99 19 88/52 100 Mechanical Ventilator 35 09/11/18 14:00 88/52 09/11/18 13:30 101 17 93/50 100 Mechanical Ventilator 35 09/11/18 13:01 96 15 35 09/11/18 13:00 93 16 93/53 100 Mechanical Ventilator 35 09/11/18 13:00 93/50 09/11/18 12:30 94 16 91/56 100 Mechanical Ventilator 35 09/11/18 12:00 94 09/11/18 12:00 35 09/11/18 12:00 80/50 09/11/18 12:00 Mechanical Ventilator 09/11/18 12:00 98.8 92 15 80/50 100 Mechanical Ventilator 35 09/11/18 11:30 93 15 97/50 100 Mechanical Ventilator 35 09/11/18 11:00 98 16 104/56 100 Mechanical Ventilator 35 09/11/18 11:00 93/54 09/11/18 10:40 95 12 35 09/11/18 10:00 95 16 80/44 100 Mechanical Ventilator 35 09/11/18 10:00 80/44 09/11/18 09:00 89/51 09/11/18 08:39 93 16 35 09/11/18 08:30 96 16 92/54 100 Mechanical Ventilator 35 09/11/18 08:00 85 09/11/18 08:00 96 16 96/56 100 Mechanical Ventilator 35 09/11/18 08:00 35 09/11/18 08:00 96/57 09/11/18 08:00 Mechanical Ventilator 09/11/18 07:30 99.3 94 15 93/57 100 Mechanical Ventilator 35 09/11/18 07:30 93/57 09/11/18 07:09 91 16 35 09/11/18 07:00 101 20 91/53 100 Mechanical Ventilator 35 09/11/18 06:00 103 20 100/59 100 Mechanical Ventilator 35 09/11/18 05:30 94 19 88/54 100 Mechanical Ventilator 35 09/11/18 05:30 102 21 35 09/11/18 05:00 88 16 93/59 100 Mechanical Ventilator 35 09/11/18 04:30 94 19 93/58 100 Mechanical Ventilator 35 09/11/18 04:00 91 09/11/18 04:00 99.3 91 15 89/55 100 Mechanical Ventilator 35 09/11/18 04:00 35 09/11/18 04:00 Mechanical Ventilator 09/11/18 03:30 93 15 91/53 100 Mechanical Ventilator 35 09/11/18 03:22 84 16 35 09/11/18 03:00 92 16 99/66 100 Mechanical Ventilator 35 09/11/18 02:30 88 16 93/59 100 Mechanical Ventilator 35 09/11/18 02:00 93 16 87/58 100 Mechanical Ventilator 35 09/11/18 01:30 89 16 95/67 100 Mechanical Ventilator 35 09/11/18 01:15 85 16 35 09/11/18 01:00 88 16 102/70 100 Mechanical Ventilator 35 09/11/18 00:30 91 18 86/58 100 Mechanical Ventilator 35 09/11/18 00:00 85 09/11/18 00:00 Mechanical Ventilator 09/11/18 00:00 35 09/11/18 00:00 91 16 112/73 100 Mechanical Ventilator 35 09/10/18 23:30 87 16 95/67 100 Mechanical Ventilator 35 09/10/18 23:20 82 16 35 09/10/18 23:00 88 17 113/77 100 Mechanical Ventilator 35 09/10/18 22:30 90 17 89/63 100 Mechanical Ventilator 35 09/10/18 22:15 91 17 92/65 100 Mechanical Ventilator 35 09/10/18 22:00 91 16 103/63 100 Mechanical Ventilator 35 09/10/18 21:45 88 16 103/67 100 Mechanical Ventilator 35 09/10/18 21:30 89 16 99/63 100 Mechanical Ventilator 35 09/10/18 21:15 88 16 112/70 100 Mechanical Ventilator 35 09/10/18 21:09 99 19 45 09/10/18 21:00 88 16 108/72 100 Mechanical Ventilator 35 09/10/18 20:45 89 17 100/61 100 Mechanical Ventilator 35 09/10/18 20:30 91 17 96/59 100 Mechanical Ventilator 35 09/10/18 20:15 87 18 101/69 100 Mechanical Ventilator 35 09/10/18 20:00 88 09/10/18 20:00 Mechanical Ventilator 09/10/18 20:00 99.5 89 18 116/74 100 Mechanical Ventilator 35 09/10/18 20:00 35 09/10/18 19:45 90 16 106/62 100 Mechanical Ventilator 35 09/10/18 19:30 101 20 45 09/10/18 19:30 90 16 114/70 100 Mechanical Ventilator 35 09/10/18 19:15 90 16 112/67 100 Mechanical Ventilator 35 09/10/18 19:00 92 16 105/75 100 Mechanical Ventilator 35 09/10/18 19:00 105/75 09/10/18 18:45 95 16 105/74 100 Mechanical Ventilator 35 09/10/18 18:37 89/57 Intake and Output 09/10/18 09/11/18 19:00 07:00 Intake Total 1463.82 ml 1123.50 ml Output Total 2290 ml 1405 ml Balance -826.18 ml -281.50 ml Intake Free Water 60 ml IV Total 1178.82 ml 963.50 ml Tube Feeding 40 ml Other 225 ml 120 ml Output Urine Total 1090 ml 605 ml Stool Total 1200 ml 800 ml Laboratory Tests 09/11/18 04:50: White Blood Count 5.0, Red Blood Count 3.33L, Hemoglobin 10.1L, Hematocrit 30.1L , Mean Corpuscular Volume 90, Mean Corpuscular Hemoglobin 30.3, Mean Corpuscular Hemoglobin Concent 33.4, Red Cell Distribution Width 12.8, Platelet Count 160, Mean Platelet Volume 8.4, Neutrophils (%) (Auto) , Lymphocytes (%) ( Auto) , Monocytes (%) (Auto) , Eosinophils (%) (Auto) , Basophils (%) (Auto) , Sodium Level 136, Potassium Level 3.3L, Chloride Level 106, Carbon Dioxide Level 16L, Anion Gap 14, Blood Urea Nitrogen 16, Creatinine 1.5H, Estimat Glomerular Filtration Rate 47.7, Glucose Level 179H, Lactic Acid Level 1.90, Calcium Level 7.8L, Phosphorus Level 2.6, Magnesium Level 1.6L, Total Bilirubin 1.4H, Direct Bilirubin 0.4H, Aspartate Amino Transf (AST/SGOT) 46H, Alanine Aminotransferase (ALT/SGPT) 51, Alkaline Phosphatase 89, Total Creatine Kinase 459H, Total Protein 5.3L, Albumin 1.8L, Globulin 3.5, Albumin/Globulin Ratio 0.5L, Random Vancomycin Level 8.6 09/11/18 08:54: Arterial Blood pH 7.469H, Arterial Blood Partial Pressure CO2 22.9*L, Arterial Blood Partial Pressure O2 112.5H, Arterial Blood HCO3 16.3*L, Arterial Blood Oxygen Saturation 97.7, Arterial Blood Base Excess -5.9L, Harvey Test Positive Height (Feet): 5 Height (Inches): 6.00 Weight (Pounds): 129 EENT: other - vent support Cardiovascular: tachycardia Respiratory/Chest: decreased breath sounds Abdomen: soft Josesito Smalls MD Sep 11, 2018 18:30
[2018-09-11] MEDS: Dyna-Hex 2% Top Sol 2oz TOPIC SCH (20:12)
[2018-09-11] MEDS: Norepinephrine Bitartrate 8 MG in D5W 500ml 550 ML IV SCH (21:00)
--- NOTE | 2018-09-11 21:30 | Progress Note ---
DATE: 09/11/2018 SUBJECTIVE: This is a 62-year-old male patient with septic shock. The patient is in the ICU, very confused, disorganized. Per nursing staff, he has with psychomotor agitation, although today he is nonverbal. He is confused, disorganized. Cognition is not at baseline. That is why daily psychiatric consultation is requested by the attending physician to stabilize his mood, reduce psychomotor agitation. MENTAL STATUS EXAMINATION: This is a 62-year-old male patient. Appearance is disheveled. Attitude, agitated. Affect, guarded and restricted. Intellect poor. Mood, depressed and anxious. Motor activity, psychomotor agitation. Attention is poor. Orientation x3. Speech is pressured. Thought process is somewhat illogical. Insight and judgment is poor. DIAGNOSIS: Paranoid schizophrenia with acute exacerbation. Rule out depression and psychotic features. Rule out pseudodementia. PLAN: For now Risperdal 0.25 mg 1 every 6 hours p.r.n. anxiety and agitation. Provided 20 minutes of behavioral management and encouraged him to reduce psychomotor agitation and behavioral disturbances. Chart reviewed. Discussed with staff. Seen and assessed at bedside. Virgie Mcdermott M.D. DR: ESCOBAR JOB#: [id number] CC:
[2018-09-12] VITALS (25 sets, daily range): BP systolic 84–137; BP diastolic 53–71
[2018-09-12] MEDS: NovoLOG Insulin Flexpen SUBQ SCH ×6 (01:00→20:33)
[2018-09-12 06:24] LABS: HEMATOCRIT 29.1 % (42.0-52.0); HEMOGLOBIN 9.7 G/DL (14.2-18.0); MEAN CORPUSCULAR VOLUME 92 FL (80-99); PLATELET COUNT 171 K/UL (150-450); RED BLOOD COUNT 3.16 M/UL (4.70-6.10); WHITE BLOOD COUNT 8.3 K/UL (4.8-10.8)
[2018-09-12] MEDS: Piperacillin/Tazobactam 3.375 GM in D5W 110 ML IVPB SCH ×3 (06:30→20:34)
[2018-09-12 06:54] LABS: ALANINE AMINOTRANSFERASE 64 U/L (12-78); ALBUMIN 1.6 G/DL (3.4-5.0); ALBUMIN/GLOBULIN RATIO 0.4 (1.0-2.7); ALKALINE PHOSPHATASE 97 U/L (46-116); ANION GAP 13 mmol/L (5-15); ASPARTATE AMINO TRANSFERASE 60 U/L (15-37); BILIRUBIN,TOTAL 1.1 MG/DL (0.2-1.0); BLOOD UREA NITROGEN 15 mg/dL (7-18); CALCIUM 7.6 MG/DL (8.5-10.1); CARBON DIOXIDE 16 MMOL/L (21-32); CHLORIDE 108 MMOL/L (98-107); CREATININE 1.4 MG/DL (0.55-1.30); PHOSPHORUS 3.4 MG/DL (2.5-4.9); SODIUM 137 MMOL/L (136-145)
[2018-09-12 07:00] LABS: BILIRUBIN,DIRECT 0.4 MG/DL (0.0-0.3)
--- NOTE | 2018-09-12 08:13 | Cardiology Progress Note ---
Assessment/Plan Status: stable Assessment/Plan Assessment/Plan Assessment/Plan 1. Septic shock: off pressors 2. Sinus tachycardia with heart rate in 140s due to the patient's septic shock and dehydration. No evidence of atrial fibrillation or any other supraventricular tachycardia. Echocardiogram showing ejection fraction of 75%. 3. Troponin elevation, likely due to renal failure.. Echocardiogram showed ejection fraction of 75%. NO indication for cardiac cath or stress testing at this time Multifactorial from sepsis and renal failure 4. Respiratory failure on the vent, continue suctioning and pulmonary toilet Thoracentesis left effusion? 5. Rhabdomyolysis with CPK in thousands. May be contributing to renal failure. Continue IV fluid hydration 6. Acute renal failure and severe hyperkalemia. 7. Dysphagia, status post PEG placement. Subjective Cardiovascular: Reports: no symptoms Respiratory: Reports: no symptoms Gastrointestinal/Abdominal: Reports: no symptoms Genitourinary: Reports: no symptoms Subjective Coverage for Toluie Levophed off, BP stable, tachycardic, vent settings stable, no fevers, creatinine improved. CXR with left effusion Objective Last 24 Hour Vital Signs Date Time Temp Pulse Resp B/P (MAP) Pulse Ox O2 Delivery O2 Flow Rate FiO2 09/12/18 07:04 116 19 35 09/12/18 07:00 113 17 100/64 100 Mechanical Ventilator 35 09/12/18 06:00 113 17 102/66 100 Mechanical Ventilator 35 09/12/18 05:00 113 17 107/71 100 Mechanical Ventilator 35 09/12/18 04:50 112 19 35 09/12/18 04:00 111 09/12/18 04:00 35 09/12/18 04:00 98.9 111 17 101/63 100 Mechanical Ventilator 35 09/12/18 04:00 Mechanical Ventilator 09/12/18 03:00 108 17 35 09/12/18 03:00 102 17 115/68 100 Mechanical Ventilator 35 09/12/18 02:00 110 17 101/62 100 Mechanical Ventilator 35 09/12/18 01:00 109 16 35 09/12/18 01:00 109 17 108/65 100 Mechanical Ventilator 35 09/12/18 00:30 105 17 91/60 100 Mechanical Ventilator 35 09/12/18 00:00 Mechanical Ventilator 09/12/18 00:00 99.0 110 17 84/53 100 Mechanical Ventilator 35 2/1/19 23:00 107 19 35 09/11/18 23:00 110 17 104/53 100 Mechanical Ventilator 35 09/11/18 22:30 112 17 96/62 100 Mechanical Ventilator 35 09/11/18 22:00 112 17 94/59 100 Mechanical Ventilator 35 09/11/18 21:30 114 17 102/63 100 Mechanical Ventilator 35 09/11/18 21:00 121 17 83/48 100 Mechanical Ventilator 35 09/11/18 21:00 101/62 09/11/18 20:49 122 19 35 09/11/18 20:30 120 20 92/52 100 Mechanical Ventilator 35 09/11/18 20:00 Mechanical Ventilator 09/11/18 20:00 118 09/11/18 20:00 98.4 116 20 86/59 100 Mechanical Ventilator 35 09/11/18 20:00 35 09/11/18 19:30 118 20 102/56 100 Mechanical Ventilator 35 09/11/18 19:00 114 20 90/59 100 Mechanical Ventilator 35 09/11/18 19:00 90/59 09/11/18 19:00 115 15 35 09/11/18 18:00 105/65 09/11/18 18:00 115 20 105/65 100 Mechanical Ventilator 35 09/11/18 17:13 112 21 35 09/11/18 17:00 110 18 135/88 100 Mechanical Ventilator 35 09/11/18 17:00 92/67 09/11/18 16:30 103 19 97/53 100 Mechanical Ventilator 35 09/11/18 16:00 35 09/11/18 16:00 Mechanical Ventilator 09/11/18 16:00 106 09/11/18 16:00 99.4 103 17 89/56 100 Mechanical Ventilator 35 09/11/18 16:00 101/59 09/11/18 15:30 107 18 97/53 100 Mechanical Ventilator 35 09/11/18 15:14 107 16 35 09/11/18 15:00 108 18 97/53 100 Mechanical Ventilator 35 09/11/18 15:00 97/53 09/11/18 14:30 100 18 86/46 100 Mechanical Ventilator 35 09/11/18 14:00 99 19 88/52 100 Mechanical Ventilator 35 09/11/18 14:00 88/52 09/11/18 13:30 101 17 93/50 100 Mechanical Ventilator 35 2/1/19 13:01 96 15 35 09/11/18 13:00 93 16 93/53 100 Mechanical Ventilator 35 09/11/18 13:00 93/50 09/11/18 12:30 94 16 91/56 100 Mechanical Ventilator 35 09/11/18 12:00 94 09/11/18 12:00 35 09/11/18 12:00 80/50 09/11/18 12:00 Mechanical Ventilator 09/11/18 12:00 98.8 92 15 80/50 100 Mechanical Ventilator 35 09/11/18 11:30 93 15 97/50 100 Mechanical Ventilator 35 09/11/18 11:00 98 16 104/56 100 Mechanical Ventilator 35 09/11/18 11:00 93/54 09/11/18 10:40 95 12 35 09/11/18 10:00 95 16 80/44 100 Mechanical Ventilator 35 09/11/18 10:00 80/44 09/11/18 09:00 89/51 09/11/18 08:39 93 16 35 09/11/18 08:30 96 16 92/54 100 Mechanical Ventilator 35 General Appearance: no apparent distress, on vent EENT: PERRL/EOMI, normal ENT inspection, TMs normal, pharynx normal Neck: non-tender, normal alignment, supple, normal inspection, no JVD Rhythm: ST Cardiovascular: normal peripheral pulses, regular rhythm, tachycardia Respiratory/Chest: chest wall non-tender, lungs clear, crackles/rales Abdomen: normal bowel sounds, non tender, soft, no organomegaly, no mass Extremities: normal range of motion, non-tender, normal inspection 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, no motor/sensory deficits Intake and Output 09/11/18 09/12/18 18:59 06:59 Intake Total 2207.620 ml 1230.0 ml Output Total 2280 ml 1235 ml Balance -72.380 ml -5.0 ml Intake Free Water 100 ml IV Total 1877.620 ml 710.0 ml Tube Feeding 210 ml 360 ml Other 120 ml 60 ml Output Urine Total 480 ml 435 ml Stool Total 1800 ml 800 ml Laboratory Tests Test 09/11/18 08:54 09/12/18 04:00 Arterial Blood pH 7.469 (7.350-7.450) Arterial Blood Partial Pressure CO2 22.9 mmHg (35.0-45.0) *L Arterial Blood Partial Pressure O2 112.5 mmHg (75.0-100.0) H Arterial Blood HCO3 16.3 mmol/L (22.0-26.0) *L Arterial Blood Oxygen Saturation 97.7 % (95-100) Arterial Blood Base Excess -5.9 (-2-2) L Harvey Test Positive White Blood Count 8.3 K/UL (4.8-10.8) # Red Blood Count 3.16 M/UL (4.70-6.10) L Hemoglobin 9.7 G/DL (14.2-18.0) L Hematocrit 29.1 % (42.0-52.0) L Mean Corpuscular Volume 92 FL (80-99) Mean Corpuscular Hemoglobin 30.6 PG (27.0-31.0) Mean Corpuscular Hemoglobin Concent 33.2 G/DL (32.0-36.0) Red Cell Distribution Width 13.0 % (11.6-14.8) Platelet Count 171 K/UL (150-450) Mean Platelet Volume 7.9 FL (6.5-10.1) Neutrophils (%) (Auto) % (45.0-75.0) Lymphocytes (%) (Auto) % (20.0-45.0) Monocytes (%) (Auto) % (1.0-10.0) Eosinophils (%) (Auto) % (0.0-3.0) Basophils (%) (Auto) % (0.0-2.0) Neutrophils % (Manual) Pending Lymphocytes % (Manual) Pending Platelet Estimate Pending Platelet Morphology Pending Sodium Level 137 MMOL/L (136-145) Potassium Level 4.0 MMOL/L (3.5-5.1) Chloride Level 108 MMOL/L (98-107) H Carbon Dioxide Level 16 MMOL/L (21-32) L Anion Gap 13 mmol/L (5-15) Blood Urea Nitrogen 15 mg/dL (7-18) Creatinine 1.4 MG/DL (0.55-1.30) H Estimat Glomerular Filtration Rate 51.7 mL/min (>60) Glucose Level 209 MG/DL (74-106) H Calcium Level 7.6 MG/DL (8.5-10.1) L Phosphorus Level 3.4 MG/DL (2.5-4.9) Magnesium Level 2.0 MG/DL (1.8-2.4) Total Bilirubin 1.1 MG/DL (0.2-1.0) H Direct Bilirubin 0.4 MG/DL (0.0-0.3) H Aspartate Amino Transf (AST/SGOT) 60 U/L (15-37) H Alanine Aminotransferase (ALT/SGPT) 64 U/L (12-78) Alkaline Phosphatase 97 U/L (46-116) Total Protein 5.3 G/DL (6.4-8.2) L Albumin 1.6 G/DL (3.4-5.0) L Globulin 3.7 g/dL Albumin/Globulin Ratio 0.4 (1.0-2.7) L Microbiology Date/Time Source Procedure Growth Status 09/09/18 17:00 Stool Clostridium difficile Toxin Assay - Final Complete Asim Hernandez MD Sep 12, 2018 08:13
[2018-09-12] MEDS: Pantoprazole Inj IVP SCH ×2 (09:01→20:26)
--- NOTE | 2018-09-12 09:03 | General Progress Note ---
Assessment/Plan Problem List: (1) UTI (urinary tract infection) ICD Codes: N39.0 - Urinary tract infection, site not specified SNOMED: 16291750 (2) Renal failure ICD Codes: N19 - Unspecified kidney failure SNOMED: 92552390 (3) Anemia ICD Codes: D64.9 - Anemia, unspecified SNOMED: 335223481 (4) Acute respiratory failure ICD Codes: J96.00 - Acute respiratory failure, unspecified whether with hypoxia or hypercapnia SNOMED: 36368253 (5) Pneumonia ICD Codes: J18.9 - Pneumonia, unspecified organism SNOMED: 140335938 (6) Septic shock ICD Codes: A41.9 - Sepsis, unspecified organism; R65.21 - Severe sepsis with septic shock SNOMED: 03804442 (7) ATN (acute tubular necrosis) ICD Codes: N17.0 - Acute kidney failure with tubular necrosis SNOMED: 45916443 Status: unchanged Assessment/Plan vent abx wound care neph f/u cbc bmp am ltach eval Subjective Constitutional: Reports: weakness Allergies: Coded Allergies: No Known Allergies (Unverified , 08/14/18) All Systems: reviewed and negative except above Subjective intubated sedated in icu Objective Last 24 Hour Vital Signs Date Time Temp Pulse Resp B/P (MAP) Pulse Ox O2 Delivery O2 Flow Rate FiO2 09/12/18 08:43 105 16 35 09/12/18 08:00 35 09/12/18 08:00 Mechanical Ventilator 09/12/18 08:00 98.8 112 17 89/56 100 Mechanical Ventilator 35 09/12/18 07:04 116 19 35 09/12/18 07:00 113 17 100/64 100 Mechanical Ventilator 35 09/12/18 06:00 113 17 102/66 100 Mechanical Ventilator 35 09/12/18 05:00 113 17 107/71 100 Mechanical Ventilator 35 09/12/18 04:50 112 19 35 09/12/18 04:00 111 09/12/18 04:00 35 09/12/18 04:00 98.9 111 17 101/63 100 Mechanical Ventilator 35 09/12/18 04:00 Mechanical Ventilator 09/12/18 03:00 108 17 35 09/12/18 03:00 102 17 115/68 100 Mechanical Ventilator 35 09/12/18 02:00 110 17 101/62 100 Mechanical Ventilator 35 09/12/18 01:00 109 16 35 09/12/18 01:00 109 17 108/65 100 Mechanical Ventilator 35 09/12/18 00:30 105 17 91/60 100 Mechanical Ventilator 35 09/12/18 00:00 Mechanical Ventilator 09/12/18 00:00 99.0 110 17 84/53 100 Mechanical Ventilator 35 09/11/18 23:00 107 19 35 09/11/18 23:00 110 17 104/53 100 Mechanical Ventilator 35 09/11/18 22:30 112 17 96/62 100 Mechanical Ventilator 35 09/11/18 22:00 112 17 94/59 100 Mechanical Ventilator 35 09/11/18 21:30 114 17 102/63 100 Mechanical Ventilator 35 09/11/18 21:00 121 17 83/48 100 Mechanical Ventilator 35 09/11/18 21:00 101/62 09/11/18 20:49 122 19 35 09/11/18 20:30 120 20 92/52 100 Mechanical Ventilator 35 09/11/18 20:00 Mechanical Ventilator 09/11/18 20:00 118 09/11/18 20:00 98.4 116 20 86/59 100 Mechanical Ventilator 35 09/11/18 20:00 35 09/11/18 19:30 118 20 102/56 100 Mechanical Ventilator 35 09/11/18 19:00 114 20 90/59 100 Mechanical Ventilator 35 09/11/18 19:00 90/59 09/11/18 19:00 115 15 35 09/11/18 18:00 105/65 09/11/18 18:00 115 20 105/65 100 Mechanical Ventilator 35 09/11/18 17:13 112 21 35 09/11/18 17:00 110 18 135/88 100 Mechanical Ventilator 35 09/11/18 17:00 92/67 09/11/18 16:30 103 19 97/53 100 Mechanical Ventilator 35 09/11/18 16:00 35 09/11/18 16:00 Mechanical Ventilator 09/11/18 16:00 106 09/11/18 16:00 99.4 103 17 89/56 100 Mechanical Ventilator 35 09/11/18 16:00 101/59 09/11/18 15:30 107 18 97/53 100 Mechanical Ventilator 35 09/11/18 15:14 107 16 35 09/11/18 15:00 108 18 97/53 100 Mechanical Ventilator 35 09/11/18 15:00 97/53 09/11/18 14:30 100 18 86/46 100 Mechanical Ventilator 35 09/11/18 14:00 99 19 88/52 100 Mechanical Ventilator 35 09/11/18 14:00 88/52 09/11/18 13:30 101 17 93/50 100 Mechanical Ventilator 35 09/11/18 13:01 96 15 35 09/11/18 13:00 93 16 93/53 100 Mechanical Ventilator 35 09/11/18 13:00 93/50 09/11/18 12:30 94 16 91/56 100 Mechanical Ventilator 35 09/11/18 12:00 94 09/11/18 12:00 35 09/11/18 12:00 80/50 09/11/18 12:00 Mechanical Ventilator 09/11/18 12:00 98.8 92 15 80/50 100 Mechanical Ventilator 35 09/11/18 11:30 93 15 97/50 100 Mechanical Ventilator 35 09/11/18 11:00 98 16 104/56 100 Mechanical Ventilator 35 09/11/18 11:00 93/54 09/11/18 10:40 95 12 35 09/11/18 10:00 95 16 80/44 100 Mechanical Ventilator 35 09/11/18 10:00 80/44 Intake and Output 09/11/18 09/12/18 18:59 06:59 Intake Total 2207.620 ml 1230.0 ml Output Total 2280 ml 1235 ml Balance -72.380 ml -5.0 ml Intake Free Water 100 ml IV Total 1877.620 ml 710.0 ml Tube Feeding 210 ml 360 ml Other 120 ml 60 ml Output Urine Total 480 ml 435 ml Stool Total 1800 ml 800 ml Laboratory Tests 09/12/18 04:00: White Blood Count 8.3#, Red Blood Count 3.16L, Hemoglobin 9.7L, Hematocrit 29.1L , Mean Corpuscular Volume 92, Mean Corpuscular Hemoglobin 30.6, Mean Corpuscular Hemoglobin Concent 33.2, Red Cell Distribution Width 13.0, Platelet Count 171, Mean Platelet Volume 7.9, Neutrophils (%) (Auto) , Lymphocytes (%) ( Auto) , Monocytes (%) (Auto) , Eosinophils (%) (Auto) , Basophils (%) (Auto) , Differential Total Cells Counted 100, Neutrophils % (Manual) 90H, Lymphocytes % (Manual) 4L, Monocytes % (Manual) 3, Eosinophils % (Manual) 0, Basophils % ( Manual) 0, Band Neutrophils 3, Platelet Estimate Adequate, Platelet Morphology Normal, Hypochromasia 2+, Anisocytosis 1+, Sodium Level 137, Potassium Level 4.0 , Chloride Level 108H, Carbon Dioxide Level 16L, Anion Gap 13, Blood Urea Nitrogen 15, Creatinine 1.4H, Estimat Glomerular Filtration Rate 51.7, Glucose Level 209H, Calcium Level 7.6L, Phosphorus Level 3.4, Magnesium Level 2.0, Total Bilirubin 1.1H, Direct Bilirubin 0.4H, Aspartate Amino Transf (AST/SGOT) 60H, Alanine Aminotransferase (ALT/SGPT) 64, Alkaline Phosphatase 97, Total Protein 5.3L, Albumin 1.6L, Globulin 3.7, Albumin/Globulin Ratio 0.4L 09/12/18 08:35: Arterial Blood pH 7.455H, Arterial Blood Partial Pressure CO2 20.4*L, Arterial Blood Partial Pressure O2 116.7H, Arterial Blood HCO3 14.0*L, Arterial Blood Oxygen Saturation 97.8, Arterial Blood Base Excess -8.2L, Harvey Test Positive Height (Feet): 5 Height (Inches): 6.00 Weight (Pounds): 129 General Appearance: lethargic EENT: normal ENT inspection Neck: normal alignment Cardiovascular: normal peripheral pulses, normal rate, regular rhythm Respiratory/Chest: chest wall non-tender, lungs clear, normal breath sounds Abdomen: normal bowel sounds, non tender, soft Extremities: normal inspection Edema: no edema noted Arm (L), no edema noted Arm (R), no edema noted Leg (L), no edema noted Leg (R), no edema noted Pedal (L), no edema noted Pedal (R), no edema noted Generalized Neurologic: motor weakness Skin: normal pigmentation, warm/dry Jasmeet Reynoso DO Sep 12, 2018 09:03
[2018-09-12] MEDS: Heparin 5000 units/ml inj SUBQ SCH ×2 (09:04→20:26)
[2018-09-12] MEDS ORDERED: Tubing IV Secondary IV ONE ×3 (09:06→14:10)
[2018-09-12] MEDS ORDERED: NS 275ml ONE ×2 (09:06→10:46)
[2018-09-12] MEDS: Vancomycin 750mg/D5W 275ml IVPB SCH ×2 (09:22)
[2018-09-12] MEDS ORDERED: D5W 550ml IV ONE ×2 (10:46→14:10)
[2018-09-12] MEDS ORDERED: D5W 275ml ONE (10:46)
--- NOTE | 2018-09-12 11:53 | Pulmonolgy Critical Care Note ---
Critical Care - Asmt/Plan Assessment/Plan: ASSESSMENT Septic shock-resolved Acute hypoxemic respiratory failure requiring intubation Probably PNA Pleural effusion Acute tubular necrosis/ARF -resolved Acute toxic and metabolic encephalopathy ( due to sepsis and renal failure ) Hyperkalemia-resolved Elevated troponin, likely troponin leak due to renal failure Moderate pulmonary HTN Dysphagia, G tube Anemia Rhabdo DM Severe protein calorie malnutrition Paranoid schizophrenia with acute exacerbation PLAN OF CARE ICU status vent support , pulm toilet fup w ith CXR and ABG not ready for weaning ( tachy, BP this am low ) venous Duplex BLE off pressors, stable hemodynamic status cardio follows ECHO with pEF 60-65% and RVSP of 42 c/w moderate pulm HTN elevated troponin likely troponin leak due to ARF as per cardiology patient not candidate for cardiac catheterization or stress test abx per ID recs influenza screen test negative urine culture negative sputum culture negative stool for C. difficile is still negative gentle IV fluids acute renal failure resolved monitor renal parameters and electrolytes avoid nephrotoxins, correct electrolytes as needed fup with further nephro recs trend CK DVT GI prophylaxis BS management with SSRI, hemoglobin A1c at goal, below 7 strict aspiration precaution G-tube feeding monitor tolerance bowel regimen initial CY head- no acute intracranial pathology altered mental status on presentation was likely due to acute toxic metabolic encephalopathy secondary to sepsis and acute renal failure )psych meds as epr psych recs supportive care case discussed and evaluated by supervising physician Critical Care - Objective Last 24 Hour Vital Signs Date Time Temp Pulse Resp B/P (MAP) Pulse Ox O2 Delivery O2 Flow Rate FiO2 09/12/18 10:52 111 19 35 09/12/18 10:00 112 19 129/62 100 Mechanical Ventilator 35 09/12/18 09:00 106 16 108/69 100 Mechanical Ventilator 35 09/12/18 08:43 105 16 35 09/12/18 08:00 35 09/12/18 08:00 Mechanical Ventilator 09/12/18 08:00 98.8 112 17 89/56 100 Mechanical Ventilator 35 09/12/18 07:04 116 19 35 09/12/18 07:00 113 17 100/64 100 Mechanical Ventilator 35 09/12/18 06:00 113 17 102/66 100 Mechanical Ventilator 35 09/12/18 05:00 113 17 107/71 100 Mechanical Ventilator 35 09/12/18 04:50 112 19 35 09/12/18 04:00 111 09/12/18 04:00 35 09/12/18 04:00 98.9 111 17 101/63 100 Mechanical Ventilator 35 09/12/18 04:00 Mechanical Ventilator 09/12/18 03:00 108 17 35 09/12/18 03:00 102 17 115/68 100 Mechanical Ventilator 35 09/12/18 02:00 110 17 101/62 100 Mechanical Ventilator 35 09/12/18 01:00 109 16 35 09/12/18 01:00 109 17 108/65 100 Mechanical Ventilator 35 09/12/18 00:30 105 17 91/60 100 Mechanical Ventilator 35 09/12/18 00:00 Mechanical Ventilator 09/12/18 00:00 99.0 110 17 84/53 100 Mechanical Ventilator 35 09/11/18 23:00 107 19 35 09/11/18 23:00 110 17 104/53 100 Mechanical Ventilator 35 09/11/18 22:30 112 17 96/62 100 Mechanical Ventilator 35 09/11/18 22:00 112 17 94/59 100 Mechanical Ventilator 35 09/11/18 21:30 114 17 102/63 100 Mechanical Ventilator 35 09/11/18 21:00 121 17 83/48 100 Mechanical Ventilator 35 09/11/18 21:00 101/62 09/11/18 20:49 122 19 35 09/11/18 20:30 120 20 92/52 100 Mechanical Ventilator 35 09/11/18 20:00 Mechanical Ventilator 09/11/18 20:00 118 09/11/18 20:00 98.4 116 20 86/59 100 Mechanical Ventilator 35 09/11/18 20:00 35 09/11/18 19:30 118 20 102/56 100 Mechanical Ventilator 35 09/11/18 19:00 114 20 90/59 100 Mechanical Ventilator 35 09/11/18 19:00 90/59 09/11/18 19:00 115 15 35 09/11/18 18:00 105/65 09/11/18 18:00 115 20 105/65 100 Mechanical Ventilator 35 09/11/18 17:13 112 21 35 09/11/18 17:00 110 18 135/88 100 Mechanical Ventilator 35 09/11/18 17:00 92/67 09/11/18 16:30 103 19 97/53 100 Mechanical Ventilator 35 09/11/18 16:00 35 09/11/18 16:00 Mechanical Ventilator 09/11/18 16:00 106 09/11/18 16:00 99.4 103 17 89/56 100 Mechanical Ventilator 35 09/11/18 16:00 101/59 09/11/18 15:30 107 18 97/53 100 Mechanical Ventilator 35 09/11/18 15:14 107 16 35 09/11/18 15:00 108 18 97/53 100 Mechanical Ventilator 35 09/11/18 15:00 97/53 09/11/18 14:30 100 18 86/46 100 Mechanical Ventilator 35 09/11/18 14:00 99 19 88/52 100 Mechanical Ventilator 35 09/11/18 14:00 88/52 09/11/18 13:30 101 17 93/50 100 Mechanical Ventilator 35 09/11/18 13:01 96 15 35 09/11/18 13:00 93 16 93/53 100 Mechanical Ventilator 35 09/11/18 13:00 93/50 09/11/18 12:30 94 16 91/56 100 Mechanical Ventilator 35 09/11/18 12:00 94 09/11/18 12:00 35 09/11/18 12:00 80/50 09/11/18 12:00 Mechanical Ventilator 09/11/18 12:00 98.8 92 15 80/50 100 Mechanical Ventilator 35 09/11/18 11:30 93 15 97/50 100 Mechanical Ventilator 35 Status: other - bedridden intubated on vent AC Condition: critical HEENT: atraumatic, normocephalic, other - OP withET tube, intatc, Lungs: clear - with moderate air exchange Heart: HR/BP unstable Abdomen: soft, non-tender, active bowel sounds, feeding tube - G tube Extremities: other - spastic LE Micro: Microbiology Date/Time Source Procedure Growth Status 09/09/18 17:00 Stool Clostridium difficile Toxin Assay - Final Complete Accucheck: 195 Critical Care - Subjective ROS Limited/Unobtainable: Yes Condition: critical EKG Rhythm: Sinus Tachycardia FI02: 35 Vent Support Breath Rate: 12 Vent Support Mode: AC Vent Tidal Volume: 600 Sputum Amount: Small PEEP: 0.0 PIP: 29 Fluids: D5NS + 40 KCL at 50 Tube Feeding Amount: 30 I&O: Intake and Output 09/11/18 09/12/18 18:59 06:59 Intake Total 2207.620 ml 1230.0 ml Output Total 2280 ml 1235 ml Balance -72.380 ml -5.0 ml Intake Free Water 100 ml IV Total 1877.620 ml 710.0 ml Tube Feeding 210 ml 360 ml Other 120 ml 60 ml Output Urine Total 480 ml 435 ml Stool Total 1800 ml 800 ml CXR: 09/11 Left-sided pleural effusion appears slightly increased ET-Tube: 7.5 ET Position: 23 Heidi Kamara NP Sep 12, 2018 11:53
--- NOTE | 2018-09-12 12:11 | Diagnostic Imaging Report ---
EXAM: XR Chest, 1 View CLINICAL HISTORY: DYSPNEA TECHNIQUE: Frontal view of the chest. COMPARISON: Chest x-ray 09/11/18 856 FINDINGS: Lungs: Hypoventilatory lungs with bibasilar lung atelectasis, stable. Pleural space: Small left pleural effusion, stable. No pneumothorax. Heart: Unremarkable. No cardiomegaly. Mediastinum: Unremarkable. Bones/joints: Unremarkable. Tubes, lines and devices: Stable endotracheal tube. IMPRESSION: 1. Hypoventilatory lungs with bibasilar lung atelectasis, stable. 2. Small left pleural effusion, stable.
[2018-09-12] MEDS ORDERED: Vitamin B12 1000mcg/ml Inj IM SCH (13:00)
[2018-09-12] MEDS ORDERED: NS 500ML ONE (14:10)
--- NOTE | 2018-09-12 16:13 | Nephrology Progress Note ---
Assessment/Plan Problem List: (1) ATN (acute tubular necrosis) (2) Septic shock (3) Lactic acid acidosis (4) Metabolic acidosis (5) Hyperkalemia (6) G tube feedings (7) Acute respiratory failure Assessment over all improved: presented with Shock , likely septic Acute renal failure Acute metabolic acidosis Hyperkalemia PEG Recent Pneumonia Plan plan: pulmonary support Fluid challenge Silva K and Phos supplement as needed Pressors as needed antibiotics monitor renal parameters and ABG no need for dialysis as renal failure improving Subjective ROS Limited/Unobtainable: Yes Objective Objective Last 24 Hour Vital Signs Date Time Temp Pulse Resp B/P (MAP) Pulse Ox O2 Delivery O2 Flow Rate FiO2 09/12/18 15:24 118 18 35 09/12/18 15:00 118 17 100/68 100 Mechanical Ventilator 35 09/12/18 14:00 117 17 100/62 100 Mechanical Ventilator 35 09/12/18 13:28 114 16 35 09/12/18 13:00 110 16 100/68 100 Mechanical Ventilator 09/12/18 12:00 113 09/12/18 12:00 Mechanical Ventilator 09/12/18 12:00 35 09/12/18 12:00 99.2 112 17 107/67 100 Mechanical Ventilator 35 09/12/18 11:00 116 19 106/64 100 Mechanical Ventilator 35 09/12/18 10:52 111 19 35 09/12/18 10:00 112 19 129/62 100 Mechanical Ventilator 35 09/12/18 09:00 106 16 108/69 100 Mechanical Ventilator 35 09/12/18 08:43 105 16 35 09/12/18 08:00 35 09/12/18 08:00 Mechanical Ventilator 09/12/18 08:00 112 09/12/18 08:00 98.8 112 17 89/56 100 Mechanical Ventilator 35 09/12/18 07:04 116 19 35 09/12/18 07:00 113 17 100/64 100 Mechanical Ventilator 35 09/12/18 06:00 113 17 102/66 100 Mechanical Ventilator 35 09/12/18 05:00 113 17 107/71 100 Mechanical Ventilator 35 09/12/18 04:50 112 19 35 09/12/18 04:00 111 09/12/18 04:00 35 09/12/18 04:00 98.9 111 17 101/63 100 Mechanical Ventilator 35 09/12/18 04:00 Mechanical Ventilator 09/12/18 03:00 108 17 35 09/12/18 03:00 102 17 115/68 100 Mechanical Ventilator 35 09/12/18 02:00 110 17 101/62 100 Mechanical Ventilator 35 09/12/18 01:00 109 16 35 09/12/18 01:00 109 17 108/65 100 Mechanical Ventilator 35 09/12/18 00:30 105 17 91/60 100 Mechanical Ventilator 35 09/12/18 00:00 Mechanical Ventilator 09/12/18 00:00 99.0 110 17 84/53 100 Mechanical Ventilator 35 09/11/18 23:00 107 19 35 09/11/18 23:00 110 17 104/53 100 Mechanical Ventilator 35 09/11/18 22:30 112 17 96/62 100 Mechanical Ventilator 35 09/11/18 22:00 112 17 94/59 100 Mechanical Ventilator 35 09/11/18 21:30 114 17 102/63 100 Mechanical Ventilator 35 09/11/18 21:00 121 17 83/48 100 Mechanical Ventilator 35 09/11/18 21:00 101/62 09/11/18 20:49 122 19 35 09/11/18 20:30 120 20 92/52 100 Mechanical Ventilator 35 09/11/18 20:00 Mechanical Ventilator 09/11/18 20:00 118 09/11/18 20:00 98.4 116 20 86/59 100 Mechanical Ventilator 35 09/11/18 20:00 35 09/11/18 19:30 118 20 102/56 100 Mechanical Ventilator 35 09/11/18 19:00 114 20 90/59 100 Mechanical Ventilator 35 09/11/18 19:00 90/59 09/11/18 19:00 115 15 35 09/11/18 18:00 105/65 09/11/18 18:00 115 20 105/65 100 Mechanical Ventilator 35 09/11/18 17:13 112 21 35 09/11/18 17:00 110 18 135/88 100 Mechanical Ventilator 35 09/11/18 17:00 92/67 09/11/18 16:30 103 19 97/53 100 Mechanical Ventilator 35 Intake and Output 09/11/18 09/12/18 19:00 07:00 Intake Total 2179.200 ml 1243.75 ml Output Total 1690 ml 1225 ml Balance 489.200 ml 18.75 ml Intake Free Water 100 ml IV Total 1829.200 ml 723.75 ml Tube Feeding 230 ml 360 ml Other 120 ml 60 ml Output Urine Total 490 ml 425 ml Stool Total 1200 ml 800 ml Laboratory Tests 09/12/18 04:00: White Blood Count 8.3#, Red Blood Count 3.16L, Hemoglobin 9.7L, Hematocrit 29.1L , Mean Corpuscular Volume 92, Mean Corpuscular Hemoglobin 30.6, Mean Corpuscular Hemoglobin Concent 33.2, Red Cell Distribution Width 13.0, Platelet Count 171, Mean Platelet Volume 7.9, Neutrophils (%) (Auto) , Lymphocytes (%) ( Auto) , Monocytes (%) (Auto) , Eosinophils (%) (Auto) , Basophils (%) (Auto) , Differential Total Cells Counted 100, Neutrophils % (Manual) 90H, Lymphocytes % (Manual) 4L, Monocytes % (Manual) 3, Eosinophils % (Manual) 0, Basophils % ( Manual) 0, Band Neutrophils 3, Platelet Estimate Adequate, Platelet Morphology Normal, Hypochromasia 2+, Anisocytosis 1+, Sodium Level 137, Potassium Level 4.0 , Chloride Level 108H, Carbon Dioxide Level 16L, Anion Gap 13, Blood Urea Nitrogen 15, Creatinine 1.4H, Estimat Glomerular Filtration Rate 51.7, Glucose Level 209H, Calcium Level 7.6L, Phosphorus Level 3.4, Magnesium Level 2.0, Total Bilirubin 1.1H, Direct Bilirubin 0.4H, Aspartate Amino Transf (AST/SGOT) 60H, Alanine Aminotransferase (ALT/SGPT) 64, Alkaline Phosphatase 97, Total Protein 5.3L, Albumin 1.6L, Globulin 3.7, Albumin/Globulin Ratio 0.4L 09/12/18 08:35: Arterial Blood pH 7.455H, Arterial Blood Partial Pressure CO2 20.4*L, Arterial Blood Partial Pressure O2 116.7H, Arterial Blood HCO3 14.0*L, Arterial Blood Oxygen Saturation 97.8, Arterial Blood Base Excess -8.2L, Harvey Test Positive Height (Feet): 5 Height (Inches): 6.00 Weight (Pounds): 129 EENT: other - vented Cardiovascular: tachycardia Respiratory/Chest: decreased breath sounds Abdomen: distended Josesito Smalls MD Sep 12, 2018 16:13
[2018-09-12] MEDS: D5NS w/KCl 40mEq 1000ml 1,000 ML IV SCH (18:55)
[2018-09-12] MEDS: Dyna-Hex 2% Top Sol 2oz TOPIC SCH (20:25)
[2018-09-12] MEDS: Norepinephrine Bitartrate 8 MG in D5W 500ml 550 ML IV SCH (21:00)
[2018-09-13] VITALS (25 sets, daily range): BP systolic 90–138; BP diastolic 47–73
--- NOTE | 2018-09-13 00:30 | Progress Note ---
DATE: 09/12/2018 SUBJECTIVE: This is a 62-year-old male patient with sepsis. He is admitted to the ICU. He denied to be confused, disorganized, and minimally responsive on interview. By the time, we assessed him in the ICU, we did control his agitation as requested by his attending physician. MENTAL STATUS EXAMINATION: A 62-year-old male. Appearance is disheveled. Attitude is irritable and agitated. Affect flat. Thought process, he has positive speech. No signs of any suicidal or homicidal ideations. Insight and judgment are poor. DIAGNOSIS: Major depressive disorder, severe, recurrent with psychotic features, rule out dementia with psychosis. PLAN: We will continue him on Risperdal 0.25 mg twice a day and Ativan 1 mg every 6 hours p.r.n. anxiety and agitation. Continue with behavioral management. A 20 minutes of behavioral management was provided. Seen and assessed in the ICU. Chart reviewed. Discussed with the staff. Vigrie Mcdermott M.D. DR: KRISTA JOB#: [id number] CC:
[2018-09-13] MEDS: NovoLOG Insulin Flexpen SUBQ SCH ×6 (01:59→21:04)
[2018-09-13 05:43] LABS: HEMOGLOBIN 8.4 G/DL (14.2-18.0); MEAN CORPUSCULAR VOLUME 92 FL (80-99); PLATELET COUNT 215 K/UL (150-450); RED BLOOD COUNT 2.81 M/UL (4.70-6.10); RED CELL DISTRIBUTION WIDTH 12.8 % (11.6-14.8); WHITE BLOOD COUNT 9.1 K/UL (4.8-10.8)
[2018-09-13 06:05] LABS: ANION GAP 11 mmol/L (5-15); BLOOD UREA NITROGEN 16 mg/dL (7-18); CALCIUM 7.7 MG/DL (8.5-10.1); CARBON DIOXIDE 17 MMOL/L (21-32); CHLORIDE 111 MMOL/L (98-107); CREATININE 1.7 MG/DL (0.55-1.30); POTASSIUM 4.2 MMOL/L (3.5-5.1); SODIUM 139 MMOL/L (136-145)
[2018-09-13] MEDS: Piperacillin/Tazobactam 3.375 GM in D5W 110 ML IVPB SCH ×3 (06:22→22:00)
[2018-09-13] MEDS: Heparin 5000 units/ml inj SUBQ SCH ×2 (08:12→20:21)
[2018-09-13] MEDS: Vancomycin 750mg/D5W 275ml IVPB SCH ×2 (08:31)
[2018-09-13] MEDS: Pantoprazole Inj IVP SCH ×2 (08:32→21:03)
--- NOTE | 2018-09-13 08:36 | Pulmonolgy Critical Care Note ---
Critical Care - Asmt/Plan Assessment/Plan: ASSESSMENT Septic shock-resolved Acute hypoxemic respiratory failure requiring intubation Probably PNA Pleural effusion Acute tubular necrosis/ARF -resolved Acute toxic and metabolic encephalopathy ( due to sepsis and renal failure ) Hyperkalemia-resolved Elevated troponin, likely troponin leak due to renal failure Moderate pulmonary HTN Dysphagia, G tube Anemia Rhabdo DM Severe protein calorie malnutrition Paranoid schizophrenia with acute exacerbation PLAN OF CARE ICU status vent support , pulm toilet fup with CXR and ABG not ready for weaning ( tachy, BP still low ) venous Duplex BLE off pressors, stable hemodynamic status cardio follows ECHO with pEF 60-65% and RVSP of 42 c/w moderate pulm HTN elevated troponin likely troponin leak due to ARF as per cardiology patient not candidate for cardiac catheterization or stress test abx per ID recs influenza screen test negative urine culture negative sputum culture negative stool for C. difficile negative rectal tube with output amount and changed to green color get KUB stat start GT to LIS GI consult called and appreciated anemia w/up pending fup with further GI recs increase IVF to 75 since NPO acute renal failure resolved , creat 1.7 this am monitor renal parameters and electrolytes avoid nephrotoxins, correct electrolytes as needed fup with further nephro recs trend CK DVT GI prophylaxis BS management with SSRI, hemoglobin A1c at goal, below 7 strict aspiration precaution G-tube feeding monitor tolerance bowel regimen initial CY head- no acute intracranial pathology altered mental status on presentation was likely due to acute toxic metabolic encephalopathy secondary to sepsis and acute renal failure )psych meds as epr psych recs supportive care case discussed and evaluated by supervising physician Critical Care - Objective Last 24 Hour Vital Signs Date Time Temp Pulse Resp B/P (MAP) Pulse Ox O2 Delivery O2 Flow Rate FiO2 09/13/18 07:17 97 14 35 09/13/18 07:00 97 15 98/66 100 Mechanical Ventilator 35 09/13/18 06:00 97 15 99/70 100 Mechanical Ventilator 35 09/13/18 05:45 105 16 35 09/13/18 05:00 100 15 98/57 100 Mechanical Ventilator 35 09/13/18 04:00 Mechanical Ventilator 09/13/18 04:00 35 09/13/18 04:00 100 09/13/18 04:00 99.1 96 15 92/53 100 Mechanical Ventilator 35 09/13/18 03:03 108 17 35 2/3/19 03:00 96 15 100/61 100 Mechanical Ventilator 35 2/3/19 02:00 102 15 97/60 100 Mechanical Ventilator 35 2/3/19 01:11 109 16 35 2/3/19 01:00 106 15 94/59 100 Mechanical Ventilator 35 2/3/19 00:00 99.0 98 15 103/60 100 Mechanical Ventilator 35 2/3/19 00:00 Mechanical Ventilator 2/3/ 00:00 35 2/3/19 00:00 103 2//19 23:04 108 18 35 2/2/19 23:00 83 16 113/64 100 Mechanical Ventilator 35 2// 22:00 83 15 103/63 100 Mechanical Ventilator 35 2// 21:10 116 16 35 2// 21:00 102/66 2// 21:00 91 15 137/65 100 Mechanical Ventilator 35 2// 20:00 35 2// 20:00 116 09/12/18 20:00 Mechanical Ventilator 2 20:00 97.9 106 15 102/66 100 Mechanical Ventilator 35 2/2/ 19:32 105 15 35 2/2/19 19:00 108 16 105/62 100 Mechanical Ventilator 35 2// 18:00 108 16 92/65 100 Mechanical Ventilator 35 2/ 17:22 115 23 35 2// 17:00 121 17 102/70 100 Mechanical Ventilator 35 2/09/29 16:00 35 2// 16:00 Mechanical Ventilator 2 16:00 117 09/12/18 16:00 98.6 125 19 95/65 100 Mechanical Ventilator 35 2//19 15:24 118 18 35 2/2/19 15:00 118 17 100/68 100 Mechanical Ventilator 35 2/2/19 14:00 117 17 100/62 100 Mechanical Ventilator 35 2// 13:28 114 16 35 2//19 13:00 110 16 100/68 100 Mechanical Ventilator 35 2// 12:00 113 // 12:00 Mechanical Ventilator 2/09/29 12:00 35 /2/ 12:00 99.2 112 17 107/67 100 Mechanical Ventilator 35 2// 11:00 116 19 106/64 100 Mechanical Ventilator 35 2// 10:52 111 19 35 09/12/18 10:00 112 19 129/62 100 Mechanical Ventilator 35 09/12/18 09:00 106 16 108/69 100 Mechanical Ventilator 35 09/12/18 08:43 105 16 35 Objective: Status: bedridden intubated on vent AC Condition: critical HEENT: atraumatic, normocephalic, OP with ET tube, intact, Lungs: clear with moderate air exchange Heart: HR/BP unstable Abdomen: soft, non-tender, active bowel sounds, G tube, rectal tube Micro: Microbiology Date/Time Source Procedure Growth Status 09/11/18 10:10 Blood Blood Culture - Preliminary NO GROWTH AFTER 24 HOURS Resulted 09/11/18 09:55 Blood Blood Culture - Preliminary NO GROWTH AFTER 24 HOURS Resulted Accucheck: 174 Critical Care - Subjective ROS Limited/Unobtainable: Yes Interval Events: low grade fever, no leukocytosis no signs of resp distress on current settings Hgb down from 9.7 to 8.4 rectal tube output amount and color changes from average per shift 800 cc brown color to 50 cc liquid green creat 1.7 Condition: critical IV Access: peripheral EKG Rhythm: Sinus Rhythm FI02: 35 Vent Support Breath Rate: 12 Vent Support Mode: AC Vent Tidal Volume: 600 Sputum Amount: Small PEEP: 0.0 PIP: 19 Fluids: D5NS +40 KCL at 75 Tube Feeding Amount: 30 I&O: Intake and Output 09/12/18 09/13/18 19:00 07:00 Intake Total 1375.555 ml 710.0 ml Output Total 610 ml 415 ml Balance 765.555 ml 295.0 ml Intake Free Water 50 ml IV Total 1025.555 ml 710.0 ml Tube Feeding 300 ml Output Urine Total 410 ml 365 ml Stool Total 200 ml 50 ml # Voids 35 CXR: 2/3 Hypoventilatory lungs. Small left pleural effusion and left lower lobe atelectasis/airspace disease, similar to prior study. ET-Tube: 7.5 ET Position: 23 Heidi Kamara NP Sep 13, 2018 08:36
--- NOTE | 2018-09-13 08:43 | General Progress Note ---
Assessment/Plan Problem List: (1) UTI (urinary tract infection) ICD Codes: N39.0 - Urinary tract infection, site not specified SNOMED: 48621033 (2) Renal failure ICD Codes: N19 - Unspecified kidney failure SNOMED: 47895916 (3) Anemia ICD Codes: D64.9 - Anemia, unspecified SNOMED: 782184363 (4) Acute respiratory failure ICD Codes: J96.00 - Acute respiratory failure, unspecified whether with hypoxia or hypercapnia SNOMED: 03044047 (5) Pneumonia ICD Codes: J18.9 - Pneumonia, unspecified organism SNOMED: 693198506 (6) Septic shock ICD Codes: A41.9 - Sepsis, unspecified organism; R65.21 - Severe sepsis with septic shock SNOMED: 95330569 (7) ATN (acute tubular necrosis) ICD Codes: N17.0 - Acute kidney failure with tubular necrosis SNOMED: 52876191 Status: unchanged Assessment/Plan vent abx wound care neph f/u gi eval cbc bmp am ltach eval Subjective Constitutional: Reports: weakness Allergies: Coded Allergies: No Known Allergies (Unverified , 08/14/18) All Systems: reviewed and negative except above Subjective intubated sedated in icu Objective Last 24 Hour Vital Signs Date Time Temp Pulse Resp B/P (MAP) Pulse Ox O2 Delivery O2 Flow Rate FiO2 09/13/18 07:17 97 14 35 09/13/18 07:00 97 15 98/66 100 Mechanical Ventilator 35 09/13/18 06:00 97 15 99/70 100 Mechanical Ventilator 35 09/13/18 05:45 105 16 35 09/13/18 05:00 100 15 98/57 100 Mechanical Ventilator 35 09/13/18 04:00 Mechanical Ventilator 09/13/18 04:00 35 09/13/18 04:00 100 09/13/18 04:00 99.1 96 15 92/53 100 Mechanical Ventilator 35 09/13/18 03:03 108 17 35 09/13/18 03:00 96 15 100/61 100 Mechanical Ventilator 35 09/13/18 02:00 102 15 97/60 100 Mechanical Ventilator 35 09/13/18 01:11 109 16 35 09/13/18 01:00 106 15 94/59 100 Mechanical Ventilator 35 09/13/18 00:00 99.0 98 15 103/60 100 Mechanical Ventilator 35 09/13/18 00:00 Mechanical Ventilator 2 00:00 35 09/13/18 00:00 103 2/09/29 23:04 108 18 35 09/12/18 23:00 83 16 113/64 100 Mechanical Ventilator 35 09/12/18 22:00 83 15 103/63 100 Mechanical Ventilator 35 09/12/18 21:10 116 16 35 /09/29 21:00 102/66 2 21:00 91 15 137/65 100 Mechanical Ventilator 35 09/12/18 20:00 35 09/12/18 20:00 116 09/12/18 20:00 Mechanical Ventilator 09/12/18 20:00 97.9 106 15 102/66 100 Mechanical Ventilator 35 09/12/18 19:32 105 15 35 09/12/18 19:00 108 16 105/62 100 Mechanical Ventilator 35 09/12/18 18:00 108 16 92/65 100 Mechanical Ventilator 35 09/12/18 17:22 115 23 35 09/12/18 17:00 121 17 102/70 100 Mechanical Ventilator 35 09/12/18 16:00 35 09/12/18 16:00 Mechanical Ventilator 09/12/18 16:00 117 09/12/18 16:00 98.6 125 19 95/65 100 Mechanical Ventilator 35 09/12/18 15:24 118 18 35 09/12/18 15:00 118 17 100/68 100 Mechanical Ventilator 35 09/12/18 14:00 117 17 100/62 100 Mechanical Ventilator 35 09/12/18 13:28 114 16 35 09/12/18 13:00 110 16 100/68 100 Mechanical Ventilator 35 09/12/18 12:00 113 09/12/18 12:00 Mechanical Ventilator 09/12/18 12:00 35 09/12/18 12:00 99.2 112 17 107/67 100 Mechanical Ventilator 35 09/12/18 11:00 116 19 106/64 100 Mechanical Ventilator 35 09/12/18 10:52 111 19 35 09/12/18 10:00 112 19 129/62 100 Mechanical Ventilator 35 09/12/18 09:00 106 16 108/69 100 Mechanical Ventilator 35 Intake and Output 09/12/09/13/18 18:59 06:59 Intake Total 1441.805 ml 687.5 ml Output Total 515 ml 515 ml Balance 926.805 ml 172.5 ml Intake Free Water 50 ml IV Total 1061.805 ml 687.5 ml Tube Feeding 330 ml Output Urine Total 415 ml 365 ml Stool Total 100 ml 150 ml # Voids 35 Laboratory Tests 09/13/18 04:00: White Blood Count 9.1, Red Blood Count 2.81L, Hemoglobin 8.4L, Hematocrit 26.0L , Mean Corpuscular Volume 92, Mean Corpuscular Hemoglobin 30.0, Mean Corpuscular Hemoglobin Concent 32.4, Red Cell Distribution Width 12.8, Platelet Count 215, Mean Platelet Volume 6.4L, Neutrophils (%) (Auto) , Lymphocytes (%) ( Auto) , Monocytes (%) (Auto) , Eosinophils (%) (Auto) , Basophils (%) (Auto) , Neutrophils % (Manual) [Pending], Lymphocytes % (Manual) [Pending], Platelet Estimate [Pending], Platelet Morphology [Pending], Sodium Level 139, Potassium Level 4.2, Chloride Level 111H, Carbon Dioxide Level 17L, Anion Gap 11, Blood Urea Nitrogen 16, Creatinine 1.7H, Estimat Glomerular Filtration Rate 41.3, Glucose Level 162H, Calcium Level 7.7L Height (Feet): 5 Height (Inches): 6.00 Weight (Pounds): 130 General Appearance: lethargic EENT: normal ENT inspection Neck: normal alignment Cardiovascular: normal peripheral pulses, normal rate, regular rhythm Respiratory/Chest: chest wall non-tender, lungs clear, normal breath sounds Abdomen: normal bowel sounds, non tender, soft Extremities: normal inspection Edema: no edema noted Arm (L), no edema noted Arm (R), no edema noted Leg (L), no edema noted Leg (R), no edema noted Pedal (L), no edema noted Pedal (R), no edema noted Generalized Neurologic: motor weakness Skin: normal pigmentation, warm/dry Jasmeet Reynoso DO Sep 13, 2018 08:43
[2018-09-13] MEDS ORDERED: D5NS w/KCl 40mEq 1000ml 1,000 ML IV SCH (10:00)
--- NOTE | 2018-09-13 10:06 | Diagnostic Imaging Report ---
EXAM: XR Chest, 1 View CLINICAL HISTORY: SOB TECHNIQUE: Frontal view of the chest. COMPARISON: Chest x-ray, 09/12/18 808 FINDINGS: Lungs: See below. Pleural space: Hypoventilatory lungs. Small left pleural effusion and left lower lobe atelectasis/airspace disease, similar to prior study. No pneumothorax. Heart: Unremarkable. No cardiomegaly. Mediastinum: Unremarkable. Bones/joints: Unremarkable. Tubes, lines and devices: Stable endotracheal tube. IMPRESSION: Hypoventilatory lungs. Small left pleural effusion and left lower lobe atelectasis/airspace disease, similar to prior study.
--- NOTE | 2018-09-13 10:17 | Infectious Diseases Prog Note ---
Assessment/Plan Assessment/Plan 62 yo male with PMHx of Quadriplegia with G-tube, HTN, DM and Schizophenia who [facility]. Sepsis - Probably PNA but will f/u other cultures No intubated on vent 45% CXR 09/07/18 - possible left sided consolidation Inf neg 09/07/18 BCx 2/2 sets diphteroids, 1/2 setse S. epi (contaminants); 2/ Bcx NTD 09/07/18 SCx - NF 09/07/18 UCx - Neg 09/09 Cdiff neg No leukocytosis Febrile to 103 on admit; improving HTN DM Schizophenia Quadriplegia. G- tube dependent Plan - Continue Ceftriaxone #5 - Continue Vancmocyin #7 - 09/09/18 Ertapenem #3 pending Cx - f/u repeat blood cultures - f/u Urine Legionalla - Monitor CBC and temps We will continue to follow the patient during this hospitalization. Subjective Allergies: Coded Allergies: No Known Allergies (Unverified , 08/14/18) Subjective afebrile >48hrs no leukocytosis Cr increased Bcx NTD Objective Vital Signs Last 24 Hour Vital Signs Date Time Temp Pulse Resp B/P (MAP) Pulse Ox O2 Delivery O2 Flow Rate FiO2 09/13/18 10:00 71 15 107/47 100 Mechanical Ventilator 35 09/13/18 09:22 95 13 35 09/13/18 09:00 77 15 138/67 100 Mechanical Ventilator 35 09/13/18 08:44 99.3 96 14 92/57 100 Mechanical Ventilator 35 09/13/18 08:00 Mechanical Ventilator 09/13/18 08:00 99.3 96 14 92/57 100 Mechanical Ventilator 35 09/13/18 08:00 94 09/13/18 08:00 35 09/13/18 07:17 97 14 35 09/13/18 07:00 97 15 98/66 100 Mechanical Ventilator 35 09/13/18 06:00 97 15 99/70 100 Mechanical Ventilator 35 09/13/18 05:45 105 16 35 09/13/18 05:00 100 15 98/57 100 Mechanical Ventilator 35 09/13/18 04:00 Mechanical Ventilator 09/13/18 04:00 35 09/13/18 04:00 100 09/13/18 04:00 99.1 96 15 92/53 100 Mechanical Ventilator 35 2/3/19 03:03 108 17 35 2/3/19 03:00 96 15 100/61 100 Mechanical Ventilator 35 2/3/19 02:00 102 15 97/60 100 Mechanical Ventilator 35 2/3/19 01:11 109 16 35 2/3/19 01:00 106 15 94/59 100 Mechanical Ventilator 35 2/3/19 00:00 99.0 98 15 103/60 100 Mechanical Ventilator 35 2/3/19 00:00 Mechanical Ventilator 2/3/19 00:00 35 2/3/19 00:00 103 2/2/19 23:04 108 18 35 2/2/19 23:00 83 16 113/64 100 Mechanical Ventilator 35 2// 22:00 83 15 103/63 100 Mechanical Ventilator 35 2/2/ 21:10 116 16 35 2/2/19 21:00 102/66 2/2/19 21:00 91 15 137/65 100 Mechanical Ventilator 35 2// 20:00 35 2//19 20:00 116 2//19 20:00 Mechanical Ventilator 2/2/19 20:00 97.9 106 15 102/66 100 Mechanical Ventilator 35 2/2/19 19:32 105 15 35 2/2/19 19:00 108 16 105/62 100 Mechanical Ventilator 35 2//19 18:00 108 16 92/65 100 Mechanical Ventilator 35 2/2/19 17:22 115 23 35 2/2/19 17:00 121 17 102/70 100 Mechanical Ventilator 35 2/2/19 16:00 35 2/2/19 16:00 Mechanical Ventilator 2/2/ 16:00 117 2/2/ 16:00 98.6 125 19 95/65 100 Mechanical Ventilator 35 2/2/19 15:24 118 18 35 2/2/19 15:00 118 17 100/68 100 Mechanical Ventilator 35 2/2/19 14:00 117 17 100/62 100 Mechanical Ventilator 35 2//19 13:28 114 16 35 2/2/19 13:00 110 16 100/68 100 Mechanical Ventilator 35 2/2/19 12:00 113 2/2/ 12:00 Mechanical Ventilator 2// 12:00 35 2/2/19 12:00 99.2 112 17 107/67 100 Mechanical Ventilator 35 2/2/19 11:00 116 19 106/64 100 Mechanical Ventilator 35 09/12/18 10:52 111 19 35 Height (Feet): 5 Height (Inches): 6.00 Weight (Pounds): 130 Objective Gen: NAD, On vent satting well 35% O2 HEENT: NCAT, MMM, EOMI LUNGS: CTAB, No W/C, CARDS: RRR, S1, S2, No M/R/G, ABD: Soft, NT, distended, + BS,G tube (No E/P) NEURO: Intubated, not following Microbiology Date/Time Source Procedure Growth Status 09/11/18 10:10 Blood Blood Culture - Preliminary NO GROWTH AFTER 24 HOURS Resulted 09/11/18 09:55 Blood Blood Culture - Preliminary NO GROWTH AFTER 24 HOURS Resulted Laboratory Tests Test 09/13/18 04:00 09/13/18 08:55 09/13/18 09:00 White Blood Count 9.1 K/UL (4.8-10.8) Red Blood Count 2.81 M/UL (4.70-6.10) L Hemoglobin 8.4 G/DL (14.2-18.0) L Hematocrit 26.0 % (42.0-52.0) L Mean Corpuscular Volume 92 FL (80-99) Mean Corpuscular Hemoglobin 30.0 PG (27.0-31.0) Mean Corpuscular Hemoglobin Concent 32.4 G/DL (32.0-36.0) Red Cell Distribution Width 12.8 % (11.6-14.8) Platelet Count 215 K/UL (150-450) Mean Platelet Volume 6.4 FL (6.5-10.1) L Neutrophils (%) (Auto) % (45.0-75.0) Lymphocytes (%) (Auto) % (20.0-45.0) Monocytes (%) (Auto) % (1.0-10.0) Eosinophils (%) (Auto) % (0.0-3.0) Basophils (%) (Auto) % (0.0-2.0) Differential Total Cells Counted 100 Neutrophils % (Manual) 91 % (45-75) H Lymphocytes % (Manual) 3 % (20-45) L Monocytes % (Manual) 6 % (1-10) Eosinophils % (Manual) 0 % (0-3) Basophils % (Manual) 0 % (0-2) Band Neutrophils 0 % (0-8) Platelet Estimate Adequate Platelet Morphology Normal Hypochromasia 1+ Sodium Level 139 MMOL/L (136-145) Potassium Level 4.2 MMOL/L (3.5-5.1) Chloride Level 111 MMOL/L (98-107) H Carbon Dioxide Level 17 MMOL/L (21-32) L Anion Gap 11 mmol/L (5-15) Blood Urea Nitrogen 16 mg/dL (7-18) Creatinine 1.7 MG/DL (0.55-1.30) H Estimat Glomerular Filtration Rate 41.3 mL/min (>60) Glucose Level 162 MG/DL (74-106) H Calcium Level 7.7 MG/DL (8.5-10.1) L Arterial Blood pH 7.445 (7.350-7.450) Arterial Blood Partial Pressure CO2 20.8 mmHg (35.0-45.0) *L Arterial Blood Partial Pressure O2 118.4 mmHg (75.0-100.0) H Arterial Blood HCO3 14.0 mmol/L (22.0-26.0) *L Arterial Blood Oxygen Saturation 94.5 % (95-100) L Arterial Blood Base Excess -7.5 (-2-2) L Harvey Test Positive Stool Occult Blood Pending Current Medications Medications (Trade) Dose Ordered Sig/Julito Route PRN Reason Start Time Stop Time Status Last Admin Dose Admin Acetaminophen (Tylenol) 650 mg Q4H PRN NG Mild Pain/Temp > 100.5 09/08/18 13:30 10/08/18 13:29 09/09/18 09:13 Chlorhexidine Gluconate (Camila-Hex 2%) 1 applic DAILY@2000 TOPIC 09/07/18 20:00 10/07/18 19:59 09/12/18 20:25 Dextrose (Dextrose 50%) 25 ml Q30M PRN IV Hypoglycemia 09/08/18 13:30 10/08/18 13:29 Dextrose (Dextrose 50%) 50 ml Q30M PRN IV Hypoglycemia 09/08/18 13:30 10/08/18 13:29 Dextrose/ Electrolytes 1,000 ml @ 75 mls/hr [id number] IV 09/13/18 10:00 10/10/18 09:59 09/13/18 09:39 Heparin Sodium (Porcine) (Heparin 5000 units/ml) 5,000 units EVERY 12 HOURS SUBQ 09/07/18 21:00 10/07/18 20:59 09/12/18 09:04 Insulin Aspart (NovoLOG) EVERY 4 HOURS SUBQ 09/08/18 14:30 10/08/18 14:29 09/13/18 08:34 Loperamide HCl (Imodium) 4 mg TIDPRN PRN ORAL Diarrhea 09/10/18 13:00 10/10/18 12:59 09/11/18 03:51 Lorazepam (Ativan) 1 mg Q6H PRN ORAL For Anxiety 09/10/18 04:00 09/17/18 03:59 Morphine Sulfate (Morphine Sulfate) 2 mg Q4H PRN IVP Severe Pain (Pain Scale 7-10) 09/07/18 15:15 09/14/18 15:14 Norepinephrine Bitartrate 8 mg/ Dextrose 558 ml @ 0 mls/hr Q24H IV 09/08/18 21:00 10/08/18 20:59 09/10/18 18:37 Ondansetron HCl (Zofran) 4 mg Q6H PRN IVP Nausea & Vomiting 09/07/18 15:15 10/07/18 15:14 Pantoprazole (Protonix) 40 mg Q12HR IVP 09/07/18 21:00 10/08/18 08:59 09/13/18 08:32 Piperacillin Sod/ Tazobactam Sod 3.375 gm/Dextrose 110 ml @ 27.5 mls/hr Q8HR IVPB 09/09/18 14:00 09/16/18 13:59 09/13/18 06:22 Polyethylene Glycol (Miralax) 17 gm DAILYPRN PRN ORAL Constipation 09/07/18 15:15 10/07/18 15:14 Risperidone (RisperDAL) 0.25 mg QHS ORAL 09/10/18 21:00 10/10/18 20:59 09/12/18 20:25 Sodium Chloride 500 ml @ 999 mls/hr Q31M PRN IV SBP<90mmHg 09/08/18 11:00 10/08/18 10:59 09/08/18 12:34 Vancomycin HCl (Vanco rx to dose) 1 ea DAILY PRN MISC PER PHARMACY 09/07/18 16:30 10/07/18 16:29 Vancomycin HCl 750 mg/Dextrose 275 ml @ 183.333 mls/hr Q24H IVPB 09/12/18 09:00 09/17/18 08:59 09/13/18 08:31 Kell Larkin M.D. Sep 13, 2018 10:16
[2018-09-13] MEDS ORDERED: Tubing IV Secondary IV ONE (10:45)
[2018-09-13] MEDS ORDERED: Albuterol/Ipratropium 3ml neb HHN PRN (10:45)
--- NOTE | 2018-09-13 10:45 | Consultation ---
DATE OF CONSULTATION: 09/13/2018 CONSULTING PHYSICIAN: Arthur Horton M.D. CHIEF COMPLAINT: Elevated residuals, GI bleeding, anemia, dysphagia. HISTORY OF PRESENT ILLNESS: Most of the history is per chart. The patient is intubated in ICU, 62-year-old male with past medical history of dysphagia requiring G-tube placement, hypertension, diabetes, schizophrenia, currently lives in a fci, who was brought with altered mental status. In the ER, the patient got intubated because of severe hypoxia. Apparently, the patient was recently admitted with pneumonia and sent home with Levaquin. GI consultation was requested mainly because the patient had high G-tube residuals some about 900 mL from the G-tube aspirated and some blood in the G-tube site. PAST MEDICAL HISTORY: 1. Hypertension. 2. Dysphagia. 3. Diabetes. 4. Schizophrenia. 5. Pneumonia. 6. Cardioplegia. 7. G-tube dependent. SOCIAL HISTORY: Currently lives in a fci. No recent history of tobacco, alcohol, or drug abuse. ALLERGIES: No known drug allergy. MEDICATIONS: Please see medication reconciliation list. REVIEW OF SYSTEMS: Unable to obtain. PAST SURGICAL HISTORY: Unknown. PHYSICAL EXAMINATION: VITAL SIGNS: Temperature is 99.1, pulse rate 97, respirations 14, and blood pressure 98/66. HEENT: Normocephalic. Mildly pale conjunctivae. NECK: Supple. No evidence of lymphadenopathy. CARDIOVASCULAR: Tachycardic. Regular rate. Plus S1 and S2. LUNGS: Decreased breath sounds bilaterally diffusely. ABDOMEN: Mildly distended. Mildly tympanic. There is a G-tube in place. No rebound. No guarding. No peritoneal signs. EXTREMITIES: No cyanosis. No clubbing. No edema. LABORATORY DATA: White count 9.1, hemoglobin 8.4, hematocrit 26, platelets are 215,000. Chemistry, sodium 139, potassium 4.2, BUN 16, creatinine 1.7, glucose is 162. ASSESSMENT AND PLAN: This is a 62-year-old male with numerous medical problems as dictated above. Plan to keep the G-tube to low-intermittent suction. Get a KUB. We want to order Reglan, but there is interaction with other medications that the patient is on, so we cannot give Reglan for GI motility. We will monitor hemoglobin and hematocrit. Continue on PPI. Transfuse to keep hemoglobin above 8. Send stool for OB. Follow with KUB and make further recommendation after KUB results are available. Plan to start tube feeding tomorrow if patient is stable. I want to thank Dr. Jasmeet Reynoso for this kind referral. Arthur Thien Horton DR: JERRY JOB#: [id number] CC: Jasmeet Reynoso D.O.
--- NOTE | 2018-09-13 12:14 | Cardiology Progress Note ---
Assessment/Plan Status: stable Assessment/Plan Assessment/Plan Assessment/Plan 1. Septic shock: off pressors 2. Sinus tachycardia with heart rate in 140s due to the patient's septic shock and dehydration. RESOLVED No evidence of atrial fibrillation or any other supraventricular tachycardia. Echocardiogram showing ejection fraction of 75%. 3. Troponin elevation, likely due to renal failure.. NO indication for cardiac cath or stress testing at this time. Multifactorial from sepsis and renal failure 4. Respiratory failure on the vent, continue suctioning and pulmonary toilet Thoracentesis left effusion? Weaning soon 5. Rhabdomyolysis with CPK in thousands. 6. Acute renal failure and severe hyperkalemia. 7. Dysphagia, status post PEG placement. High residuals today, KUB pending, feeds held Subjective Cardiovascular: Reports: no symptoms Respiratory: Reports: no symptoms Gastrointestinal/Abdominal: Reports: no symptoms Genitourinary: Reports: no symptoms Subjective Coverage for Toluie Levophed off, BP stable, tachycardia resolved, high residuals KUB ordered, CXR stable. Objective Last 24 Hour Vital Signs Date Time Temp Pulse Resp B/P (MAP) Pulse Ox O2 Delivery O2 Flow Rate FiO2 09/13/18 11:14 92 16 35 09/13/18 11:00 91 15 100/65 100 Mechanical Ventilator 35 09/13/18 10:00 71 15 107/47 100 Mechanical Ventilator 35 09/13/18 09:22 95 13 35 09/13/18 09:00 77 15 138/67 100 Mechanical Ventilator 35 09/13/18 08:44 99.3 96 14 92/57 100 Mechanical Ventilator 35 09/13/18 08:00 Mechanical Ventilator 09/13/18 08:00 99.3 96 14 92/57 100 Mechanical Ventilator 35 09/13/18 08:00 94 09/13/18 08:00 35 09/13/18 07:17 97 14 35 09/13/18 07:00 97 15 98/66 100 Mechanical Ventilator 35 09/13/18 06:00 97 15 99/70 100 Mechanical Ventilator 35 09/13/18 05:45 105 16 35 09/13/18 05:00 100 15 98/57 100 Mechanical Ventilator 35 09/13/18 04:00 Mechanical Ventilator 09/13/18 04:00 35 09/13/18 04:00 100 09/13/18 04:00 99.1 96 15 92/53 100 Mechanical Ventilator 35 09/13/18 03:03 108 17 35 2/3/19 03:00 96 15 100/61 100 Mechanical Ventilator 35 2/10/27 02:00 102 15 97/60 100 Mechanical Ventilator 35 2/10/27 01:11 109 16 35 2// 01:00 106 15 94/59 100 Mechanical Ventilator 35 2/10/27 00:00 99.0 98 15 103/60 100 Mechanical Ventilator 35 09/13/18 00:00 Mechanical Ventilator 2 00:00 35 2/10/27 00:00 103 2/09/29 23:04 108 18 35 2/09/29 23:00 83 16 113/64 100 Mechanical Ventilator 35 09/12/18 22:00 83 15 103/63 100 Mechanical Ventilator 35 09/12/18 21:10 116 16 35 09/12/18 21:00 102/66 09/12/18 21:00 91 15 137/65 100 Mechanical Ventilator 35 09/12/18 20:00 35 09/12/18 20:00 116 09/12/18 20:00 Mechanical Ventilator 2 20:00 97.9 106 15 102/66 100 Mechanical Ventilator 35 09/12/18 19:32 105 15 35 2/09/29 19:00 108 16 105/62 100 Mechanical Ventilator 35 09/12/18 18:00 108 16 92/65 100 Mechanical Ventilator 35 09/12/18 17:22 115 23 35 2/09/29 17:00 121 17 102/70 100 Mechanical Ventilator 35 09/12/18 16:00 35 09/12/18 16:00 Mechanical Ventilator 09/12/18 16:00 117 2/09/29 16:00 98.6 125 19 95/65 100 Mechanical Ventilator 35 2 15:24 118 18 35 2//19 15:00 118 17 100/68 100 Mechanical Ventilator 35 09/12/18 14:00 117 17 100/62 100 Mechanical Ventilator 35 09/12/18 13:28 114 16 35 2/09/29 13:00 110 16 100/68 100 Mechanical Ventilator 35 General Appearance: no apparent distress, on vent EENT: PERRL/EOMI, normal ENT inspection, TMs normal Neck: non-tender, normal alignment, supple, normal inspection, no JVD Rhythm: NSR Cardiovascular: normal peripheral pulses, normal rate, regular rhythm Respiratory/Chest: chest wall non-tender, lungs clear, crackles/rales Abdomen: normal bowel sounds, distended Extremities: normal range of motion, non-tender Neurologic: vice president safety II-XII grossly normal, no motor/sensory deficits Intake and Output 09/12/18 09/13/18 18:59 06:59 Intake Total 1441.805 ml 687.5 ml Output Total 515 ml 515 ml Balance 926.805 ml 172.5 ml Intake Free Water 50 ml IV Total 1061.805 ml 687.5 ml Tube Feeding 330 ml Output Urine Total 415 ml 365 ml Stool Total 100 ml 150 ml # Voids 35 Laboratory Tests Test 09/13/18 04:00 09/13/18 08:55 09/13/18 09:00 White Blood Count 9.1 K/UL (4.8-10.8) Red Blood Count 2.81 M/UL (4.70-6.10) L Hemoglobin 8.4 G/DL (14.2-18.0) L Hematocrit 26.0 % (42.0-52.0) L Mean Corpuscular Volume 92 FL (80-99) Mean Corpuscular Hemoglobin 30.0 PG (27.0-31.0) Mean Corpuscular Hemoglobin Concent 32.4 G/DL (32.0-36.0) Red Cell Distribution Width 12.8 % (11.6-14.8) Platelet Count 215 K/UL (150-450) Mean Platelet Volume 6.4 FL (6.5-10.1) L Neutrophils (%) (Auto) % (45.0-75.0) Lymphocytes (%) (Auto) % (20.0-45.0) Monocytes (%) (Auto) % (1.0-10.0) Eosinophils (%) (Auto) % (0.0-3.0) Basophils (%) (Auto) % (0.0-2.0) Differential Total Cells Counted 100 Neutrophils % (Manual) 91 % (45-75) H Lymphocytes % (Manual) 3 % (20-45) L Monocytes % (Manual) 6 % (1-10) Eosinophils % (Manual) 0 % (0-3) Basophils % (Manual) 0 % (0-2) Band Neutrophils 0 % (0-8) Platelet Estimate Adequate Platelet Morphology Normal Hypochromasia 1+ Sodium Level 139 MMOL/L (136-145) Potassium Level 4.2 MMOL/L (3.5-5.1) Chloride Level 111 MMOL/L (98-107) H Carbon Dioxide Level 17 MMOL/L (21-32) L Anion Gap 11 mmol/L (5-15) Blood Urea Nitrogen 16 mg/dL (7-18) Creatinine 1.7 MG/DL (0.55-1.30) H Estimat Glomerular Filtration Rate 41.3 mL/min (>60) Glucose Level 162 MG/DL (74-106) H Calcium Level 7.7 MG/DL (8.5-10.1) L Arterial Blood pH 7.445 (7.350-7.450) Arterial Blood Partial Pressure CO2 20.8 mmHg (35.0-45.0) *L Arterial Blood Partial Pressure O2 118.4 mmHg (75.0-100.0) H Arterial Blood HCO3 14.0 mmol/L (22.0-26.0) *L Arterial Blood Oxygen Saturation 94.5 % (95-100) L Arterial Blood Base Excess -7.5 (-2-2) L Harvey Test Positive Stool Occult Blood Negative (NEGATIVE) Microbiology Date/Time Source Procedure Growth Status 09/11/18 10:10 Blood Blood Culture - Preliminary NO GROWTH AFTER 24 HOURS Resulted 09/11/18 09:55 Blood Blood Culture - Preliminary NO GROWTH AFTER 24 HOURS Resulted Asim Hernandez MD Sep 13, 2018 12:14
[2018-09-13] MEDS: Metoclopramide 10mg/2ml Inj IVP SCH ×3 (13:45→23:39)
--- NOTE | 2018-09-13 13:48 | Nephrology Progress Note ---
Assessment/Plan Problem List: (1) ATN (acute tubular necrosis) (2) Septic shock (3) Lactic acid acidosis (4) Metabolic acidosis (5) Hyperkalemia (6) G tube feedings (7) Acute respiratory failure Assessment over all improved: cr higher today 1.4 to 1.7 presented with Shock , likely septic Acute renal failure Acute metabolic acidosis Hyperkalemia PEG Recent Pneumonia Plan plan: hold feeding due to high residual trial reglan midodrine pulmonary support Fluid challenge as needed Silva K and Phos supplement as needed antibiotics monitor renal parameters and ABG Subjective ROS Limited/Unobtainable: Yes Objective Objective Last 24 Hour Vital Signs Date Time Temp Pulse Resp B/P (MAP) Pulse Ox O2 Delivery O2 Flow Rate FiO2 09/13/18 13:20 114 23 35 09/13/18 13:00 97 15 103/61 100 Mechanical Ventilator 35 09/13/18 12:00 Mechanical Ventilator 09/13/18 12:00 97 09/13/18 12:00 35 09/13/18 12:00 98.8 97 14 103/61 100 Mechanical Ventilator 35 09/13/18 11:14 92 16 35 09/13/18 11:00 91 15 100/65 100 Mechanical Ventilator 35 09/13/18 10:00 71 15 107/47 100 Mechanical Ventilator 09/13/18 09:22 95 13 35 09/13/18 09:00 77 15 138/67 100 Mechanical Ventilator 35 09/13/18 08:44 99.3 96 14 92/57 100 Mechanical Ventilator 35 09/13/18 08:00 Mechanical Ventilator 09/13/18 08:00 99.3 96 14 92/57 100 Mechanical Ventilator 35 09/13/18 08:00 94 09/13/18 08:00 35 09/13/18 07:17 97 14 35 09/13/18 07:00 97 15 98/66 100 Mechanical Ventilator 35 09/13/18 06:00 97 15 99/70 100 Mechanical Ventilator 35 09/13/18 05:45 105 16 35 09/13/18 05:00 100 15 98/57 100 Mechanical Ventilator 35 09/13/18 04:00 Mechanical Ventilator 09/13/18 04:00 35 09/13/18 04:00 100 09/13/18 04:00 99.1 96 15 92/53 100 Mechanical Ventilator 09/13/18 03:03 108 17 35 09/13/18 03:00 96 15 100/61 100 Mechanical Ventilator 35 09/13/18 02:00 102 15 97/60 100 Mechanical Ventilator 35 09/13/18 01:11 109 16 35 09/13/18 01:00 106 15 94/59 100 Mechanical Ventilator 35 09/13/18 00:00 99.0 98 15 103/60 100 Mechanical Ventilator 35 09/13/18 00:00 Mechanical Ventilator 09/13/18 00:00 35 09/13/18 00:00 103 09/12/18 23:04 108 18 35 09/12/18 23:00 83 16 113/64 100 Mechanical Ventilator 35 09/12/18 22:00 83 15 103/63 100 Mechanical Ventilator 35 09/12/18 21:10 116 16 35 09/12/18 21:00 102/66 09/12/18 21:00 91 15 137/65 100 Mechanical Ventilator 35 09/12/18 20:00 35 09/12/18 20:00 116 09/12/18 20:00 Mechanical Ventilator 09/12/18 20:00 97.9 106 15 102/66 100 Mechanical Ventilator 35 09/12/18 19:32 105 15 35 09/12/18 19:00 108 16 105/62 100 Mechanical Ventilator 35 09/12/18 18:00 108 16 92/65 100 Mechanical Ventilator 35 09/12/18 17:22 115 23 35 09/12/18 17:00 121 17 102/70 100 Mechanical Ventilator 35 09/12/18 16:00 35 09/12/18 16:00 Mechanical Ventilator 09/12/18 16:00 117 09/12/18 16:00 98.6 125 19 95/65 100 Mechanical Ventilator 35 09/12/18 15:24 118 18 35 09/12/18 15:00 118 17 100/68 100 Mechanical Ventilator 35 09/12/18 14:00 117 17 100/62 100 Mechanical Ventilator 35 Intake and Output 09/12/18 09/13/18 18:59 06:59 Intake Total 1441.805 ml 687.5 ml Output Total 515 ml 515 ml Balance 926.805 ml 172.5 ml Intake Free Water 50 ml IV Total 1061.805 ml 687.5 ml Tube Feeding 330 ml Output Urine Total 415 ml 365 ml Stool Total 100 ml 150 ml # Voids 35 Laboratory Tests 09/13/18 04:00: White Blood Count 9.1, Red Blood Count 2.81L, Hemoglobin 8.4L, Hematocrit 26.0L , Mean Corpuscular Volume 92, Mean Corpuscular Hemoglobin 30.0, Mean Corpuscular Hemoglobin Concent 32.4, Red Cell Distribution Width 12.8, Platelet Count 215, Mean Platelet Volume 6.4L, Neutrophils (%) (Auto) , Lymphocytes (%) ( Auto) , Monocytes (%) (Auto) , Eosinophils (%) (Auto) , Basophils (%) (Auto) , Differential Total Cells Counted 100, Neutrophils % (Manual) 91H, Lymphocytes % (Manual) 3L, Monocytes % (Manual) 6, Eosinophils % (Manual) 0, Basophils % ( Manual) 0, Band Neutrophils 0, Platelet Estimate Adequate, Platelet Morphology Normal, Hypochromasia 1+, Sodium Level 139, Potassium Level 4.2, Chloride Level 111H, Carbon Dioxide Level 17L, Anion Gap 11, Blood Urea Nitrogen 16, Creatinine 1.7H, Estimat Glomerular Filtration Rate 41.3, Glucose Level 162H, Calcium Level 7.7L 09/13/18 08:55: Arterial Blood pH 7.445, Arterial Blood Partial Pressure CO2 20.8*L, Arterial Blood Partial Pressure O2 118.4H, Arterial Blood HCO3 14.0*L, Arterial Blood Oxygen Saturation 94.5L, Arterial Blood Base Excess -7.5L, Harvey Test Positive 09/13/18 09:00: Stool Occult Blood Negative Height (Feet): 5 Height (Inches): 6.00 Weight (Pounds): 130 General Appearance: no apparent distress Cardiovascular: tachycardia Respiratory/Chest: decreased breath sounds Abdomen: distended Josesito Smalls MD Sep 13, 2018 13:48
[2018-09-13] MEDS: D5NS 1,000 ML IV SCH (15:15)
[2018-09-13] MEDS: Dyna-Hex 2% Top Sol 2oz TOPIC SCH (19:43)
--- NOTE | 2018-09-13 20:00 | Progress Note ---
DATE: 09/13/2018 SUBJECTIVE: This is a 62-year-old male patient with septic shock. He is currently in the ICU. He is minimally responsive and intubated, but he does have some psychomotor agitation. He is on psychotropic medications, so the attending follow this patient daily throughout his hospital course to manage his psychotropic medications to make sure that his cognition does not decline below his baseline and try to improve cognition close to his baseline. MENTAL STATUS EXAMINATION: This is a 62-year-old male. Appearance is disheveled. Attitude, irritable and agitated. Affect flat. Thought process, disorganized. Thought content, no signs of any auditory or visual hallucinations. No signs of any suicidal or homicidal ideations. Insight and judgment are poor. DIAGNOSIS: Paranoid schizophrenia, acute exacerbation. PLAN: Treat this patient with Risperdal 0.25 mg nightly. He is continued to be followed throughout his hospital course. Seen and assessed in the ICU. 20 minutes of behavioral management provided. Chart reviewed. Discussed with the staff. 20 minutes of behavioral management and reality-based supportive psychotherapy. Virgie Mcdermott M.D. DR: NOAH JOB#: [id number] CC:
[2018-09-13] MEDS: Norepinephrine Bitartrate 8 MG in D5W 500ml 550 ML IV SCH (20:21)
--- NOTE | 2018-09-13 23:15 | Progress Note ---
DATE: 09/13/2018 NOTE: INCOMPLETE DICTATION SUBJECTIVE: This is a 62-year-old male patient with septic shock. This patient continues to have confusion, disorganized thought process, and mood lability. He has no logical plan for his own self-care. He has feelings of hopelessness, helplessness, low energy, poor appetite, loss of interest in activity. That is why this patient does require daily psychiatric consultation. This patient is . Virgie Mcdermott M.D. DR: NOAH JOB#: [id number] CC:
[2018-09-14] VITALS (24 sets, daily range): BP systolic 82–127; BP diastolic 48–78
[2018-09-14] MEDS: NovoLOG Insulin Flexpen SUBQ SCH ×6 (00:30→20:59)
[2018-09-14 05:52] LABS: HEMATOCRIT 24.6 % (42.0-52.0); HEMOGLOBIN 8.1 G/DL (14.2-18.0); MEAN CORPUSCULAR VOLUME 93 FL (80-99); PLATELET COUNT 260 K/UL (150-450); RED BLOOD COUNT 2.65 M/UL (4.70-6.10); RED CELL DISTRIBUTION WIDTH 13.4 % (11.6-14.8); WHITE BLOOD COUNT 8.4 K/UL (4.8-10.8)
[2018-09-14] MEDS: Metoclopramide 10mg/2ml Inj IVP SCH (06:03)
[2018-09-14] MEDS: Piperacillin/Tazobactam 3.375 GM in D5W 110 ML IVPB SCH ×3 (06:03→21:58)
[2018-09-14 06:12] LABS: % IRON SATURATION 15 % (15-50); IRON 10 ug/dL (50-175); TOTAL IRON BINDING CAPACITY 68 ug/dL (250-450)
[2018-09-14 06:18] LABS: CREATINE KINASE 76 U/L (26-308); GAMMA GLUTAMYL TRANSPEPTIDASE 84 U/L (5-85); PHOSPHORUS 2.6 MG/DL (2.5-4.9)
[2018-09-14 07:20] LABS: ALANINE AMINOTRANSFERASE 39 U/L (12-78); ALBUMIN 1.4 G/DL (3.4-5.0); ALBUMIN/GLOBULIN RATIO 0.4 (1.0-2.7); ALKALINE PHOSPHATASE 108 U/L (46-116); ANION GAP 13 mmol/L (5-15); ASPARTATE AMINO TRANSFERASE 32 U/L (15-37); BILIRUBIN,TOTAL 0.8 MG/DL (0.2-1.0); BLOOD UREA NITROGEN 19 mg/dL (7-18); CALCIUM 7.4 MG/DL (8.5-10.1); CARBON DIOXIDE 17 MMOL/L (21-32); CHLORIDE 112 MMOL/L (98-107); CREATININE 1.7 MG/DL (0.55-1.30); POTASSIUM 3.7 MMOL/L (3.5-5.1); SODIUM 142 MMOL/L (136-145)
[2018-09-14] MEDS: Heparin 5000 units/ml inj SUBQ SCH ×2 (09:00→20:59)
[2018-09-14] MEDS: Pantoprazole Inj IVP SCH ×2 (09:00→20:58)
[2018-09-14] MEDS: D5NS 1,000 ML IV SCH ×2 (09:45→13:07)
[2018-09-14] MEDS: Acetaminophen 650mg/20.3ml NG PRN (10:03)
[2018-09-14] MEDS ORDERED: NS 275ml ONE (10:19)
--- NOTE | 2018-09-14 11:47 | GI Progress Note ---
Assessment/Plan Problems: (1) G tube feedings ICD Codes: Z93.1 - Gastrostomy status SNOMED: 744491853, 179634994 (2) Protein-calorie malnutrition, severe ICD Codes: E43 - Unspecified severe protein-calorie malnutrition SNOMED: 915351717 (3) Anemia ICD Codes: D64.9 - Anemia, unspecified SNOMED: 519551336 (4) GI bleed ICD Codes: K92.2 - Gastrointestinal hemorrhage, unspecified SNOMED: 43228690 Status: unchanged Status Narrative Discussed with Dr. Horton. Assessment/Plan OB stool negative stop reglan given rising creatinine levels KUB taken, pending final read restart GTFs per RD to goal prn transfusion ppi erythromycin GT for GI motility turn q2 fu labs fu KUB The patient was seen and examined at bedside and all new and available data was reviewed in the patients chart. I agree with the above findings, impression and plan. (Patient seen earlier today. Signature stamp does not reflect patient encounter time.). - Arthur Horton MD Subjective Subjective limited Objective Last 24 Hour Vital Signs Date Time Temp Pulse Resp B/P (MAP) Pulse Ox O2 Delivery O2 Flow Rate FiO2 09/14/18 10:35 99 16 35 09/14/18 10:33 100.7 09/14/18 10:00 103 14 93/57 100 Mechanical Ventilator 35 09/14/18 09:00 102 15 96/59 100 Mechanical Ventilator 35 09/14/18 08:37 107 16 35 09/14/18 08:00 100.2 103 15 97/58 100 Mechanical Ventilator 35 09/14/18 08:00 Mechanical Ventilator Mechanical Ventilator 09/14/18 08:00 106 09/14/18 08:00 35 09/14/18 08:00 35 09/14/18 07:17 102 14 35 09/14/18 07:00 100 15 98/63 100 Mechanical Ventilator 35 09/14/18 06:00 100 15 108/67 100 Mechanical Ventilator 35 09/14/18 05:15 96 14 35 09/14/18 05:00 97 15 109/72 100 Mechanical Ventilator 35 09/14/18 04:00 98.9 100 15 102/64 100 Mechanical Ventilator 35 09/14/18 04:00 112 09/14/18 04:00 35 09/14/18 04:00 Mechanical Ventilator Mechanical Ventilator 2 03:00 107 17 107/64 100 Mechanical Ventilator 35 2/11/27 02:53 104 15 35 /11/27 02:00 105 15 97/63 100 Mechanical Ventilator 35 2 01:15 103 13 35 2// 01:00 107 16 98/71 100 Mechanical Ventilator 35 2/11/27 00:00 35 /11/27 00:00 99.1 111 15 82/48 100 Mechanical Ventilator 35 2 00:00 109 09/14/18 00:00 Mechanical Ventilator Mechanical Ventilator 2 23:00 103 15 90/73 100 Mechanical Ventilator 35 2/10/27 22:45 108 18 35 2// 22:00 106 17 103/66 100 Mechanical Ventilator 35 09/13/18 21:00 101 16 98/62 100 Mechanical Ventilator 35 /10/27 20:55 109 18 35 2// 20:21 104/65 2 20:00 35 09/13/18 20:00 Mechanical Ventilator Mechanical Ventilator 09/13/18 20:00 112 // 20:00 99.0 100 19 104/65 100 Mechanical Ventilator 35 2// 19:00 114 15 116/67 100 Mechanical Ventilator 35 2// 18:58 113 18 Mechanical Ventilator 35 2/10/27 18:58 113 18 35 2/3/19 18:00 113 14 99/64 100 Mechanical Ventilator 35 2/3/ 17:00 97 14 97/65 100 Mechanical Ventilator 35 2// 16:56 96 13 35 2/3/19 16:00 103 2// 16:00 35 2/3/19 16:00 Mechanical Ventilator 2 16:00 98.6 91 14 109/67 100 Mechanical Ventilator 35 2/3/19 15:28 112 26 35 2/3/19 15:00 97 14 97/62 100 Mechanical Ventilator 35 2/3/ 14:00 103 14 95/58 100 Mechanical Ventilator 35 2/3/19 13:20 114 23 35 2/3/19 13:00 97 15 103/61 100 Mechanical Ventilator 35 2/3/19 12:00 Mechanical Ventilator 23/ 12:00 97 2/3/ 12:00 35 2/3/19 12:00 98.8 97 14 103/61 100 Mechanical Ventilator 35 Intake and Output 09/13/18 09/14/18 18:59 06:59 Intake Total 1173.874 ml 740.0 ml Output Total 2175 ml 970 ml Balance -1001.126 ml -230.0 ml IV Total 1173.874 ml 710.0 ml Other 30 ml Output Urine Total 375 ml 420 ml Stool Total 100 ml Gastric Drainage Total 1700 ml 550 ml Laboratory Tests Test 09/14/18 04:00 09/14/18 04:25 09/14/18 08:00 09/14/18 08:20 White Blood Count 8.4 K/UL (4.8-10.8) Red Blood Count 2.65 M/UL (4.70-6.10) L Hemoglobin 8.1 G/DL (14.2-18.0) L Hematocrit 24.6 % (42.0-52.0) L Mean Corpuscular Volume 93 FL (80-99) Mean Corpuscular Hemoglobin 30.4 PG (27.0-31.0) Mean Corpuscular Hemoglobin Concent 32.8 G/DL (32.0-36.0) Red Cell Distribution Width 13.4 % (11.6-14.8) Platelet Count 260 K/UL (150-450) Mean Platelet Volume 6.0 FL (6.5-10.1) L Neutrophils (%) (Auto) % (45.0-75.0) Lymphocytes (%) (Auto) % (20.0-45.0) Monocytes (%) (Auto) % (1.0-10.0) Eosinophils (%) (Auto) % (0.0-3.0) Basophils (%) (Auto) % (0.0-2.0) Sodium Level 142 MMOL/L (136-145) Potassium Level 3.7 MMOL/L (3.5-5.1) Chloride Level 112 MMOL/L (98-107) H Carbon Dioxide Level 17 MMOL/L (21-32) L Anion Gap 13 mmol/L (5-15) Blood Urea Nitrogen 19 mg/dL (7-18) H Creatinine 1.7 MG/DL (0.55-1.30) H Estimat Glomerular Filtration Rate 41.3 mL/min (>60) Glucose Level 136 MG/DL (74-106) H Uric Acid 2.9 MG/DL (2.6-7.2) Calcium Level 7.4 MG/DL (8.5-10.1) L Phosphorus Level 2.6 MG/DL (2.5-4.9) Magnesium Level 1.5 MG/DL (1.8-2.4) L Iron Level 10 ug/dL (50-175) L Total Iron Binding Capacity 68 ug/dL (250-450) L Percent Iron Saturation 15 % (15-50) Unsaturated Iron Binding 58 ug/dL (112-346) L Total Bilirubin 0.8 MG/DL (0.2-1.0) Gamma Glutamyl Transpeptidase 84 U/L (5-85) Aspartate Amino Transf (AST/SGOT) 32 U/L (15-37) Alanine Aminotransferase (ALT/SGPT) 39 U/L (12-78) Alkaline Phosphatase 108 U/L (46-116) Total Creatine Kinase 76 U/L (26-308) Troponin I 0.077 ng/mL (0.000-0.056) Pro-B-Type Natriuretic Peptide 2442 pg/mL (0-125) H Total Protein 5.2 G/DL (6.4-8.2) L Albumin 1.4 G/DL (3.4-5.0) L Globulin 3.8 g/dL Albumin/Globulin Ratio 0.4 (1.0-2.7) L Vitamin B12 Level > 2000 PG/ML (193-986) H Folate 18.4 NG/ML (8.6-58.9) Vancomycin Level Trough 11.0 ug/mL (5.0-12.0) Arterial Blood pH 7.473 (7.350-7.450) Arterial Blood Partial Pressure CO2 21.8 mmHg (35.0-45.0) *L Arterial Blood Partial Pressure O2 149.0 mmHg (75.0-100.0) H Arterial Blood HCO3 15.6 mmol/L (22.0-26.0) *L Arterial Blood Oxygen Saturation 98.3 % (95-100) Arterial Blood Base Excess -6.8 (-2-2) L Harvey Test Positive Height (Feet): 5 Height (Inches): 6.00 Weight (Pounds): 130 General Appearance: WD/WN, no apparent distress, alert Cardiovascular: normal rate Respiratory/Chest: normal breath sounds, no respiratory distress Abdominal Exam: normal bowel sounds, non tender, soft, GT site - c/d/i Extremities: non-tender Becki Holt NP Sep 14, 2018 11:47
--- NOTE | 2018-09-14 12:01 | Diagnostic Imaging Report ---
Indication: Dyspnea Comparison: 09/13/2018 A single view chest radiograph was obtained. Findings: Left hemidiaphragm is obscured. Basal atelectasis present. Lung volumes are low bilaterally. Endotracheal tube is in good position. IMPRESSION: Basilar atelectasis. Pneumonia at the left lung base is not excluded
--- NOTE | 2018-09-14 12:19 | Pulmonolgy Critical Care Note ---
Critical Care - Asmt/Plan Problems: (1) Septic shock (2) ATN (acute tubular necrosis) (3) Hyperkalemia (4) Metabolic acidosis Respiratory: monitor respiratory rate, adjust FIO2, CXR Cardiac: continue pressors, continue to monitor HR/BP Renal: F/U I&O, check electrolytes Infectious Disease: check cultures Gastrointestinal: continue feedings/current rate Endocrine: monitor blood sugar Hematologic: transfuse if hgb<8.5 Neurologic: PRN Ativan, PRN Morphine, keep patient comfortable Affect: PRN ativan Notes Reviewed: cafeteria server, renal Discussed with: consultants, director of casework departmenttool crib manager - Objective Last 24 Hour Vital Signs Date Time Temp Pulse Resp B/P (MAP) Pulse Ox O2 Delivery O2 Flow Rate FiO2 09/14/18 12:00 35 09/14/18 12:00 Mechanical Ventilator Mechanical Ventilator 09/14/18 12:00 100.3 95 15 108/68 100 Mechanical Ventilator 35 09/14/18 11:00 96 14 107/64 100 Mechanical Ventilator 35 09/14/18 10:35 99 16 35 09/14/18 10:33 100.7 09/14/18 10:00 103 14 93/57 100 Mechanical Ventilator 35 09/14/18 09:00 102 15 96/59 100 Mechanical Ventilator 35 09/14/18 08:37 107 16 35 09/14/18 08:00 100.2 103 15 97/58 100 Mechanical Ventilator 09/14/18 08:00 Mechanical Ventilator Mechanical Ventilator 09/14/18 08:00 106 09/14/18 08:00 35 09/14/18 08:00 35 09/14/18 07:17 102 14 35 09/14/18 07:00 100 15 98/63 100 Mechanical Ventilator 35 09/14/18 06:00 100 15 108/67 100 Mechanical Ventilator 35 09/14/18 05:15 96 14 35 09/14/18 05:00 97 15 109/72 100 Mechanical Ventilator 35 09/14/18 04:00 98.9 100 15 102/64 100 Mechanical Ventilator 35 09/14/18 04:00 112 09/14/18 04:00 35 09/14/18 04:00 Mechanical Ventilator Mechanical Ventilator 09/14/18 03:00 107 17 107/64 100 Mechanical Ventilator 35 09/14/18 02:53 104 15 35 09/14/18 02:00 105 15 97/63 100 Mechanical Ventilator 35 09/14/18 01:15 103 13 35 09/14/18 01:00 107 16 98/71 100 Mechanical Ventilator 35 09/14/18 00:00 35 09/14/18 00:00 99.1 111 15 82/48 100 Mechanical Ventilator 35 09/14/18 00:00 109 09/14/18 00:00 Mechanical Ventilator Mechanical Ventilator 09/13/18 23:00 103 15 90/73 100 Mechanical Ventilator 35 09/13/18 22:45 108 18 35 09/13/18 22:00 106 17 103/66 100 Mechanical Ventilator 35 09/13/18 21:00 101 16 98/62 100 Mechanical Ventilator 35 09/13/18 20:55 109 18 35 09/13/18 20:21 104/65 09/13/18 20:00 35 09/13/18 20:00 Mechanical Ventilator Mechanical Ventilator 09/13/18 20:00 112 09/13/18 20:00 99.0 100 19 104/65 100 Mechanical Ventilator 35 09/13/18 19:00 114 15 116/67 100 Mechanical Ventilator 35 09/13/18 18:58 113 18 Mechanical Ventilator 35 09/13/18 18:58 113 18 35 09/13/18 18:00 113 14 99/64 100 Mechanical Ventilator 35 09/13/18 17:00 97 14 97/65 100 Mechanical Ventilator 35 09/13/18 16:56 96 13 35 09/13/18 16:00 103 09/13/18 16:00 35 09/13/18 16:00 Mechanical Ventilator 09/13/18 16:00 98.6 91 14 109/67 100 Mechanical Ventilator 35 09/13/18 15:28 112 26 35 09/13/18 15:00 97 14 97/62 100 Mechanical Ventilator 35 09/13/18 14:00 103 14 95/58 100 Mechanical Ventilator 35 09/13/18 13:20 114 23 35 2 13:00 97 15 103/61 100 Mechanical Ventilator 35 Status: awake Condition: critical HEENT: atraumatic Lungs: clear Heart: HR/BP stable Abdomen: soft Extremities: no C/C/E Accucheck: 135 Critical Care - Subjective ROS Limited/Unobtainable: Yes Condition: critical EKG Rhythm: Sinus Rhythm FI02: 35 Vent Support Breath Rate: 12 Vent Support Mode: AC Vent Tidal Volume: 600 Sputum Amount: Scant PEEP: 0.0 PIP: 18 Tube Feeding Amount: 30 I&O: Intake and Output 09/13/18 09/14/18 18:59 06:59 Intake Total 1173.874 ml 740.0 ml Output Total 2175 ml 970 ml Balance -1001.126 ml -230.0 ml IV Total 1173.874 ml 710.0 ml Other 30 ml Output Urine Total 375 ml 420 ml Stool Total 100 ml Gastric Drainage Total 1700 ml 550 ml CXR: no change, mostly clear, ET-Tube: 7.5 ET Position: 24 Labs: Laboratory Tests Test 09/14/18 04:00 09/14/18 04:25 09/14/18 08:00 09/14/18 08:20 White Blood Count 8.4 K/UL (4.8-10.8) Red Blood Count 2.65 M/UL (4.70-6.10) L Hemoglobin 8.1 G/DL (14.2-18.0) L Hematocrit 24.6 % (42.0-52.0) L Mean Corpuscular Volume 93 FL (80-99) Mean Corpuscular Hemoglobin 30.4 PG (27.0-31.0) Mean Corpuscular Hemoglobin Concent 32.8 G/DL (32.0-36.0) Red Cell Distribution Width 13.4 % (11.6-14.8) Platelet Count 260 K/UL (150-450) Mean Platelet Volume 6.0 FL (6.5-10.1) L Neutrophils (%) (Auto) % (45.0-75.0) Lymphocytes (%) (Auto) % (20.0-45.0) Monocytes (%) (Auto) % (1.0-10.0) Eosinophils (%) (Auto) % (0.0-3.0) Basophils (%) (Auto) % (0.0-2.0) Sodium Level 142 MMOL/L (136-145) Potassium Level 3.7 MMOL/L (3.5-5.1) Chloride Level 112 MMOL/L (98-107) H Carbon Dioxide Level 17 MMOL/L (21-32) L Anion Gap 13 mmol/L (5-15) Blood Urea Nitrogen 19 mg/dL (7-18) H Creatinine 1.7 MG/DL (0.55-1.30) H Estimat Glomerular Filtration Rate 41.3 mL/min (>60) Glucose Level 136 MG/DL (74-106) H Uric Acid 2.9 MG/DL (2.6-7.2) Calcium Level 7.4 MG/DL (8.5-10.1) L Phosphorus Level 2.6 MG/DL (2.5-4.9) Magnesium Level 1.5 MG/DL (1.8-2.4) L Iron Level 10 ug/dL (50-175) L Total Iron Binding Capacity 68 ug/dL (250-450) L Percent Iron Saturation 15 % (15-50) Unsaturated Iron Binding 58 ug/dL (112-346) L Total Bilirubin 0.8 MG/DL (0.2-1.0) Gamma Glutamyl Transpeptidase 84 U/L (5-85) Aspartate Amino Transf (AST/SGOT) 32 U/L (15-37) Alanine Aminotransferase (ALT/SGPT) 39 U/L (12-78) Alkaline Phosphatase 108 U/L (46-116) Total Creatine Kinase 76 U/L (26-308) Troponin I 0.077 ng/mL (0.000-0.056) Pro-B-Type Natriuretic Peptide 2442 pg/mL (0-125) H Total Protein 5.2 G/DL (6.4-8.2) L Albumin 1.4 G/DL (3.4-5.0) L Globulin 3.8 g/dL Albumin/Globulin Ratio 0.4 (1.0-2.7) L Vitamin B12 Level > 2000 PG/ML (193-986) H Folate 18.4 NG/ML (8.6-58.9) Vancomycin Level Trough 11.0 ug/mL (5.0-12.0) Arterial Blood pH 7.473 (7.350-7.450) Arterial Blood Partial Pressure CO2 21.8 mmHg (35.0-45.0) *L Arterial Blood Partial Pressure O2 149.0 mmHg (75.0-100.0) H Arterial Blood HCO3 15.6 mmol/L (22.0-26.0) *L Arterial Blood Oxygen Saturation 98.3 % (95-100) Arterial Blood Base Excess -6.8 (-2-2) L Harvey Test Positive Zarrabi,Mirali MD Sep 14, 2018 12:19
--- NOTE | 2018-09-14 12:24 | Infectious Diseases Prog Note ---
Assessment/Plan Assessment/Plan 62 yo male with PMHx of Quadriplegia with G-tube, HTN, DM and Schizophenia who was sent to the ED fromhis detention for AMS. Sepsis - Probably PNA but will f/u other cultures No intubated on vent 45% CXR 09/07/18 - possible left sided consolidation Inf neg 09/07/18 BCx 2/2 sets diphteroids, 1/2 setse S. epi (contaminants); 2/ Bcx NTD 09/07/18 SCx - NF 09/07/18 UCx - Neg 09/09 Cdiff neg No leukocytosis Febrile to 103 on admit; improving HTN DM Schizophenia Quadriplegia. G- tube dependent Plan - Continue Ceftriaxone #6 - Continue Vancmocyin #8 - 09/09/18 Ertapenem #3 pending Cx - f/u repeat blood cultures - f/u Urine Legionalla - Monitor CBC and temps We will continue to follow the patient during this hospitalization. Subjective Allergies: Coded Allergies: No Known Allergies (Unverified , 08/14/18) Subjective New low grade fever this am No leukocytosis Objective Vital Signs Last 24 Hour Vital Signs Date Time Temp Pulse Resp B/P (MAP) Pulse Ox O2 Delivery O2 Flow Rate FiO2 09/14/18 12:00 35 09/14/18 12:00 Mechanical Ventilator Mechanical Ventilator 09/14/18 12:00 100.3 95 15 108/68 100 Mechanical Ventilator 35 09/14/18 11:00 96 14 107/64 100 Mechanical Ventilator 35 09/14/18 10:35 99 16 35 09/14/18 10:33 100.7 09/14/18 10:00 103 14 93/57 100 Mechanical Ventilator 35 09/14/18 09:00 102 15 96/59 100 Mechanical Ventilator 35 09/14/18 08:37 107 16 35 09/14/18 08:00 100.2 103 15 97/58 100 Mechanical Ventilator 35 09/14/18 08:00 Mechanical Ventilator Mechanical Ventilator 09/14/18 08:00 106 09/14/18 08:00 35 09/14/18 08:00 35 09/14/18 07:17 102 14 35 09/14/18 07:00 100 15 98/63 100 Mechanical Ventilator 35 09/14/18 06:00 100 15 108/67 100 Mechanical Ventilator 35 09/14/18 05:15 96 14 35 09/14/18 05:00 97 15 109/72 100 Mechanical Ventilator 35 09/14/18 04:00 98.9 100 15 102/64 100 Mechanical Ventilator 35 09/14/18 04:00 112 09/14/18 04:00 35 09/14/18 04:00 Mechanical Ventilator Mechanical Ventilator 09/14/18 03:00 107 17 107/64 100 Mechanical Ventilator 35 09/14/18 02:53 104 15 35 09/14/18 02:00 105 15 97/63 100 Mechanical Ventilator 35 09/14/18 01:15 103 13 35 09/14/18 01:00 107 16 98/71 100 Mechanical Ventilator 35 09/14/18 00:00 35 09/14/18 00:00 99.1 111 15 82/48 100 Mechanical Ventilator 35 09/14/18 00:00 109 09/14/18 00:00 Mechanical Ventilator Mechanical Ventilator 09/13/18 23:00 103 15 90/73 100 Mechanical Ventilator 35 09/13/18 22:45 108 18 35 09/13/18 22:00 106 17 103/66 100 Mechanical Ventilator 35 09/13/18 21:00 101 16 98/62 100 Mechanical Ventilator 35 09/13/18 20:55 109 18 35 09/13/18 20:21 104/65 09/13/ 20:00 35 09/13/18 20:00 Mechanical Ventilator Mechanical Ventilator 09/13/18 20:00 112 09/13/18 20:00 99.0 100 19 104/65 100 Mechanical Ventilator 35 09/13/18 19:00 114 15 116/67 100 Mechanical Ventilator 35 09/13/18 18:58 113 18 Mechanical Ventilator 35 2/ 18:58 113 18 35 2//19 18:00 113 14 99/64 100 Mechanical Ventilator 35 // 17:00 97 14 97/65 100 Mechanical Ventilator 35 09/13/ 16:56 96 13 35 2/ 16:00 103 09/13/ 16:00 35 2/ 16:00 Mechanical Ventilator 2 16:00 98.6 91 14 109/67 100 Mechanical Ventilator 35 2// 15:28 112 26 35 2// 15:00 97 14 97/62 100 Mechanical Ventilator 35 09/13/18 14:00 103 14 95/58 100 Mechanical Ventilator 35 09/13/18 13:20 114 23 35 09/13/18 13:00 97 15 103/61 100 Mechanical Ventilator 35 Height (Feet): 5 Height (Inches): 6.00 Weight (Pounds): 130 Objective Gen: NAD, On vent satting well 30% O2 HEENT: NCAT, MMM, EOMI LUNGS: CTAB, No W/C, CARDS: RRR, S1, S2, No M/R/G, ABD: Soft, NT, distended, + BS,G tube (No E/P) NEURO: Intubated, not following Laboratory Tests Test 09/14/18 04:00 09/14/18 04:25 09/14/18 08:00 09/14/18 08:20 White Blood Count 8.4 K/UL (4.8-10.8) Red Blood Count 2.65 M/UL (4.70-6.10) L Hemoglobin 8.1 G/DL (14.2-18.0) L Hematocrit 24.6 % (42.0-52.0) L Mean Corpuscular Volume 93 FL (80-99) Mean Corpuscular Hemoglobin 30.4 PG (27.0-31.0) Mean Corpuscular Hemoglobin Concent 32.8 G/DL (32.0-36.0) Red Cell Distribution Width 13.4 % (11.6-14.8) Platelet Count 260 K/UL (150-450) Mean Platelet Volume 6.0 FL (6.5-10.1) L Neutrophils (%) (Auto) % (45.0-75.0) Lymphocytes (%) (Auto) % (20.0-45.0) Monocytes (%) (Auto) % (1.0-10.0) Eosinophils (%) (Auto) % (0.0-3.0) Basophils (%) (Auto) % (0.0-2.0) Sodium Level 142 MMOL/L (136-145) Potassium Level 3.7 MMOL/L (3.5-5.1) Chloride Level 112 MMOL/L (98-107) H Carbon Dioxide Level 17 MMOL/L (21-32) L Anion Gap 13 mmol/L (5-15) Blood Urea Nitrogen 19 mg/dL (7-18) H Creatinine 1.7 MG/DL (0.55-1.30) H Estimat Glomerular Filtration Rate 41.3 mL/min (>60) Glucose Level 136 MG/DL (74-106) H Uric Acid 2.9 MG/DL (2.6-7.2) Calcium Level 7.4 MG/DL (8.5-10.1) L Phosphorus Level 2.6 MG/DL (2.5-4.9) Magnesium Level 1.5 MG/DL (1.8-2.4) L Iron Level 10 ug/dL (50-175) L Total Iron Binding Capacity 68 ug/dL (250-450) L Percent Iron Saturation 15 % (15-50) Unsaturated Iron Binding 58 ug/dL (112-346) L Total Bilirubin 0.8 MG/DL (0.2-1.0) Gamma Glutamyl Transpeptidase 84 U/L (5-85) Aspartate Amino Transf (AST/SGOT) 32 U/L (15-37) Alanine Aminotransferase (ALT/SGPT) 39 U/L (12-78) Alkaline Phosphatase 108 U/L (46-116) Total Creatine Kinase 76 U/L (26-308) Troponin I 0.077 ng/mL (0.000-0.056) Pro-B-Type Natriuretic Peptide 2442 pg/mL (0-125) H Total Protein 5.2 G/DL (6.4-8.2) L Albumin 1.4 G/DL (3.4-5.0) L Globulin 3.8 g/dL Albumin/Globulin Ratio 0.4 (1.0-2.7) L Vitamin B12 Level > 2000 PG/ML (193-986) H Folate 18.4 NG/ML (8.6-58.9) Vancomycin Level Trough 11.0 ug/mL (5.0-12.0) Arterial Blood pH 7.473 (7.350-7.450) Arterial Blood Partial Pressure CO2 21.8 mmHg (35.0-45.0) *L Arterial Blood Partial Pressure O2 149.0 mmHg (75.0-100.0) H Arterial Blood HCO3 15.6 mmol/L (22.0-26.0) *L Arterial Blood Oxygen Saturation 98.3 % (95-100) Arterial Blood Base Excess -6.8 (-2-2) L Harvey Test Positive Current Medications Medications (Trade) Dose Ordered Sig/Julito Route PRN Reason Start Time Stop Time Status Last Admin Dose Admin Acetaminophen (Tylenol) 650 mg Q4H PRN NG Mild Pain/Temp > 100.5 09/08/18 13:30 10/08/18 13:29 09/14/18 10:03 Albuterol/ Ipratropium (Albuterol/ Ipratropium) 3 ml Q4H PRN HHN sob 09/13/18 10:45 09/18/18 10:44 Chlorhexidine Gluconate (Camila-Hex 2%) 1 applic DAILY@2000 TOPIC 09/07/18 20:00 10/07/18 19:59 09/13/18 19:43 Dextrose (Dextrose 50%) 25 ml Q30M PRN IV Hypoglycemia 09/08/18 13:30 10/08/18 13:29 Dextrose (Dextrose 50%) 50 ml Q30M PRN IV Hypoglycemia 09/08/18 13:30 10/08/18 13:29 Dextrose/Sodium Chloride 1,000 ml @ 50 mls/hr Q20H IV 09/13/18 13:45 10/13/18 13:44 09/13/18 15:15 Erythromycin (Jossue-Ped) 200 mg Q6HR GT 09/14/18 18:00 09/21/18 17:59 Heparin Sodium (Porcine) (Heparin 5000 units/ml) 5,000 units EVERY 12 HOURS SUBQ 09/07/18 21:00 10/07/18 20:59 09/12/18 09:04 Insulin Aspart (NovoLOG) EVERY 4 HOURS SUBQ 09/08/18 14:30 10/08/18 14:29 09/14/18 05:01 Loperamide HCl (Imodium) 4 mg TIDPRN PRN ORAL Diarrhea 09/10/18 13:00 10/10/18 12:59 09/11/18 03:51 Lorazepam (Ativan) 1 mg Q6H PRN ORAL For Anxiety 09/10/18 04:00 09/17/18 03:59 Midodrine (Pro-Amatine) 2.5 mg THREE TIMES A DAY GT 09/13/18 18:00 10/13/18 17:59 09/14/18 09:00 Morphine Sulfate (Morphine Sulfate) 2 mg Q4H PRN IVP Severe Pain (Pain Scale 7-10) 09/07/18 15:15 09/14/18 15:14 Norepinephrine Bitartrate 8 mg/ Dextrose 558 ml @ 0 mls/hr Q24H IV 09/08/18 21:00 10/08/18 20:59 09/10/18 18:37 Ondansetron HCl (Zofran) 4 mg Q6H PRN IVP Nausea & Vomiting 09/07/18 15:15 10/07/18 15:14 Pantoprazole (Protonix) 40 mg Q12HR IVP 09/07/18 21:00 10/08/18 08:59 09/14/18 09:00 Piperacillin Sod/ Tazobactam Sod 3.375 gm/Dextrose 110 ml @ 27.5 mls/hr Q8HR IVPB 09/09/18 14:00 09/16/18 13:59 09/14/18 06:03 Polyethylene Glycol (Miralax) 17 gm DAILYPRN PRN ORAL Constipation 09/07/18 15:15 10/07/18 15:14 Risperidone (RisperDAL) 0.25 mg QHS ORAL 09/10/18 21:00 10/10/18 20:59 09/13/18 21:02 Sodium Chloride 500 ml @ 999 mls/hr Q31M PRN IV SBP<90mmHg 09/08/18 11:00 10/08/18 10:59 09/08/18 12:34 Vancomycin HCl (Vanco rx to dose) 1 ea DAILY PRN MISC PER PHARMACY 09/07/18 16:30 10/07/18 16:29 Vancomycin HCl 500 mg/Dextrose 110 ml @ 110 mls/hr Q12H IVPB 09/14/18 11:00 09/19/18 10:59 Asim De Leon MD Sep 14, 2018 12:24
[2018-09-14] MEDS: Vancomycin 500mg/D5W 110ml IVPB SCH ×4 (12:53→22:48)
--- NOTE | 2018-09-14 13:25 | Nephrology Progress Note ---
Assessment/Plan Problem List: (1) ATN (acute tubular necrosis) (2) Septic shock (3) Lactic acid acidosis (4) Metabolic acidosis (5) Hyperkalemia (6) G tube feedings (7) Acute respiratory failure Assessment over all improved: cr higher today 1.4 to 1.7 presented with Shock , likely septic Acute renal failure Acute metabolic acidosis Hyperkalemia PEG Recent Pneumonia Plan plan: hold feeding due to high residual trial reglan midodrine pulmonary support Fluid challenge as needed Silva K and Phos supplement as needed antibiotics monitor renal parameters and ABG Subjective ROS Limited/Unobtainable: Yes Objective Objective Last 24 Hour Vital Signs Date Time Temp Pulse Resp B/P (MAP) Pulse Ox O2 Delivery O2 Flow Rate FiO2 09/14/18 13:00 94 15 108/68 100 Mechanical Ventilator 35 09/14/18 12:55 96 13 35 09/14/18 12:00 35 09/14/18 12:00 Mechanical Ventilator Mechanical Ventilator 09/14/18 12:00 100.3 95 15 108/68 100 Mechanical Ventilator 35 09/14/18 11:00 96 14 107/64 100 Mechanical Ventilator 35 09/14/18 10:35 99 16 35 09/14/18 10:33 100.7 09/14/18 10:00 103 14 93/57 100 Mechanical Ventilator 35 09/14/18 09:00 102 15 96/59 100 Mechanical Ventilator 35 09/14/18 08:37 107 16 35 09/14/18 08:00 100.2 103 15 97/58 100 Mechanical Ventilator 35 09/14/18 08:00 Mechanical Ventilator Mechanical Ventilator 09/14/18 08:00 106 09/14/18 08:00 35 09/14/18 08:00 35 09/14/18 07:17 102 14 35 09/14/18 07:00 100 15 98/63 100 Mechanical Ventilator 35 09/14/18 06:00 100 15 108/67 100 Mechanical Ventilator 09/14/18 05:15 96 14 35 09/14/18 05:00 97 15 109/72 100 Mechanical Ventilator 35 09/14/18 04:00 98.9 100 15 102/64 100 Mechanical Ventilator 35 09/14/18 04:00 112 09/14/18 04:00 35 09/14/18 04:00 Mechanical Ventilator Mechanical Ventilator 09/14/18 03:00 107 17 107/64 100 Mechanical Ventilator 35 09/14/18 02:53 104 15 35 09/14/18 02:00 105 15 97/63 100 Mechanical Ventilator 35 09/14/18 01:15 103 13 35 09/14/18 01:00 107 16 98/71 100 Mechanical Ventilator 35 09/14/18 00:00 35 09/14/18 00:00 99.1 111 15 82/48 100 Mechanical Ventilator 35 09/14/18 00:00 109 09/14/18 00:00 Mechanical Ventilator Mechanical Ventilator 09/13/18 23:00 103 15 90/73 100 Mechanical Ventilator 35 09/13/18 22:45 108 18 35 09/13/18 22:00 106 17 103/66 100 Mechanical Ventilator 35 09/13/18 21:00 101 16 98/62 100 Mechanical Ventilator 35 09/13/18 20:55 109 18 35 09/13/18 20:21 104/65 09/13/18 20:00 35 09/13/18 20:00 Mechanical Ventilator Mechanical Ventilator 09/13/18 20:00 112 09/13/18 20:00 99.0 100 19 104/65 100 Mechanical Ventilator 35 09/13/18 19:00 114 15 116/67 100 Mechanical Ventilator 35 09/13/18 18:58 113 18 Mechanical Ventilator 35 09/13/18 18:58 113 18 35 09/13/18 18:00 113 14 99/64 100 Mechanical Ventilator 35 09/13/18 17:00 97 14 97/65 100 Mechanical Ventilator 35 09/13/18 16:56 96 13 35 09/13/18 16:00 103 09/13/18 16:00 35 09/13/18 16:00 Mechanical Ventilator 09/13/18 16:00 98.6 91 14 109/67 100 Mechanical Ventilator 35 09/13/18 15:28 112 26 35 09/13/18 15:00 97 14 97/62 100 Mechanical Ventilator 35 09/13/18 14:00 103 14 95/58 100 Mechanical Ventilator 35 Intake and Output 09/13/18 09/14/18 18:59 06:59 Intake Total 1173.874 ml 740.0 ml Output Total 2175 ml 970 ml Balance -1001.126 ml -230.0 ml IV Total 1173.874 ml 710.0 ml Other 30 ml Output Urine Total 375 ml 420 ml Stool Total 100 ml Gastric Drainage Total 1700 ml 550 ml Laboratory Tests 09/14/18 04:00: White Blood Count 8.4, Red Blood Count 2.65L, Hemoglobin 8.1L, Hematocrit 24.6L , Mean Corpuscular Volume 93, Mean Corpuscular Hemoglobin 30.4, Mean Corpuscular Hemoglobin Concent 32.8, Red Cell Distribution Width 13.4, Platelet Count 260, Mean Platelet Volume 6.0L, Neutrophils (%) (Auto) , Lymphocytes (%) ( Auto) , Monocytes (%) (Auto) , Eosinophils (%) (Auto) , Basophils (%) (Auto) 09/14/18 04:25: Sodium Level 142, Potassium Level 3.7, Chloride Level 112H, Carbon Dioxide Level 17L, Anion Gap 13, Blood Urea Nitrogen 19H, Creatinine 1.7H, Estimat Glomerular Filtration Rate 41.3, Glucose Level 136H, Uric Acid 2.9, Calcium Level 7.4L, Phosphorus Level 2.6, Magnesium Level 1.5L, Iron Level 10L, Total Iron Binding Capacity 68L, Percent Iron Saturation 15, Unsaturated Iron Binding 58L, Total Bilirubin 0.8, Gamma Glutamyl Transpeptidase 84, Aspartate Amino Transf (AST/SGOT) 32, Alanine Aminotransferase (ALT/SGPT) 39, Alkaline Phosphatase 108, Total Creatine Kinase 76, Troponin I 0.077H, Pro-B-Type Natriuretic Peptide 2442H, Total Protein 5.2L, Albumin 1.4L, Globulin 3.8, Albumin/Globulin Ratio 0.4L, Vitamin B12 Level > 2000H, Folate 18.4 09/14/18 08:00: Vancomycin Level Trough 11.0 09/14/18 08:20: Arterial Blood pH 7.473H, Arterial Blood Partial Pressure CO2 21.8*L, Arterial Blood Partial Pressure O2 149.0H, Arterial Blood HCO3 15.6*L, Arterial Blood Oxygen Saturation 98.3, Arterial Blood Base Excess -6.8L, Harvey Test Positive Height (Feet): 5 Height (Inches): 6.00 Weight (Pounds): 130 EENT: other - vented Cardiovascular: tachycardia Respiratory/Chest: decreased breath sounds Abdomen: distended Josesito Smalls MD Sep 14, 2018 13:25
--- NOTE | 2018-09-14 13:39 | General Progress Note ---
Assessment/Plan Problem List: (1) UTI (urinary tract infection) ICD Codes: N39.0 - Urinary tract infection, site not specified SNOMED: 17402513 (2) Renal failure ICD Codes: N19 - Unspecified kidney failure SNOMED: 61384941 (3) Anemia ICD Codes: D64.9 - Anemia, unspecified SNOMED: 966260315 (4) Acute respiratory failure ICD Codes: J96.00 - Acute respiratory failure, unspecified whether with hypoxia or hypercapnia SNOMED: 31468496 (5) Pneumonia ICD Codes: J18.9 - Pneumonia, unspecified organism SNOMED: 235601423 (6) Septic shock ICD Codes: A41.9 - Sepsis, unspecified organism; R65.21 - Severe sepsis with septic shock SNOMED: 82346496 (7) ATN (acute tubular necrosis) ICD Codes: N17.0 - Acute kidney failure with tubular necrosis SNOMED: 67684590 Status: unchanged Assessment/Plan vent abx wound care neph f/u gi eval cbc bmp am ltach eval Subjective Constitutional: Reports: weakness Allergies: Coded Allergies: No Known Allergies (Unverified , 08/14/18) All Systems: reviewed and negative except above Subjective intubated sedated in icu Objective Last 24 Hour Vital Signs Date Time Temp Pulse Resp B/P (MAP) Pulse Ox O2 Delivery O2 Flow Rate FiO2 09/14/18 13:00 94 15 108/68 100 Mechanical Ventilator 35 09/14/18 12:55 96 13 35 09/14/18 12:00 35 09/14/18 12:00 Mechanical Ventilator Mechanical Ventilator 09/14/18 12:00 100.3 95 15 108/68 100 Mechanical Ventilator 35 09/14/18 11:00 96 14 107/64 100 Mechanical Ventilator 35 09/14/18 10:35 99 16 35 09/14/18 10:33 100.7 09/14/18 10:00 103 14 93/57 100 Mechanical Ventilator 35 09/14/18 09:00 102 15 96/59 100 Mechanical Ventilator 35 09/14/18 08:37 107 16 35 09/14/18 08:00 100.2 103 15 97/58 100 Mechanical Ventilator 35 09/14/18 08:00 Mechanical Ventilator Mechanical Ventilator 09/14/18 08:00 106 09/14/18 08:00 35 09/14/18 08:00 35 2/4/19 07:17 102 14 35 09/14/18 07:00 100 15 98/63 100 Mechanical Ventilator 35 09/14/18 06:00 100 15 108/67 100 Mechanical Ventilator 35 09/14/18 05:15 96 14 35 09/14/18 05:00 97 15 109/72 100 Mechanical Ventilator 35 09/14/18 04:00 98.9 100 15 102/64 100 Mechanical Ventilator 35 09/14/18 04:00 112 09/14/18 04:00 35 09/14/18 04:00 Mechanical Ventilator Mechanical Ventilator 09/14/18 03:00 107 17 107/64 100 Mechanical Ventilator 35 09/14/18 02:53 104 15 35 09/14/18 02:00 105 15 97/63 100 Mechanical Ventilator 35 09/14/18 01:15 103 13 35 09/14/18 01:00 107 16 98/71 100 Mechanical Ventilator 35 09/14/18 00:00 35 09/14/18 00:00 99.1 111 15 82/48 100 Mechanical Ventilator 35 09/14/18 00:00 109 09/14/18 00:00 Mechanical Ventilator Mechanical Ventilator 09/13/18 23:00 103 15 90/73 100 Mechanical Ventilator 35 09/13/18 22:45 108 18 35 09/13/18 22:00 106 17 103/66 100 Mechanical Ventilator 35 09/13/18 21:00 101 16 98/62 100 Mechanical Ventilator 35 09/13/18 20:55 109 18 35 09/13/18 20:21 104/65 09/13/18 20:00 35 09/13/18 20:00 Mechanical Ventilator Mechanical Ventilator 09/13/18 20:00 112 09/13/18 20:00 99.0 100 19 104/65 100 Mechanical Ventilator 35 09/13/18 19:00 114 15 116/67 100 Mechanical Ventilator 35 2 18:58 113 18 Mechanical Ventilator 35 2/ 18:58 113 18 35 2/10/27 18:00 113 14 99/64 100 Mechanical Ventilator 35 09/13/18 17:00 97 14 97/65 100 Mechanical Ventilator 35 09/13/18 16:56 96 13 35 09/13/ 16:00 103 09/13/18 16:00 35 09/13/18 16:00 Mechanical Ventilator 2 16:00 98.6 91 14 109/67 100 Mechanical Ventilator 35 09/13/18 15:28 112 26 35 09/13/18 15:00 97 14 97/62 100 Mechanical Ventilator 35 09/13/18 14:00 103 14 95/58 100 Mechanical Ventilator 35 Intake and Output 09/13/18 09/14/18 18:59 06:59 Intake Total 1173.874 ml 740.0 ml Output Total 2175 ml 970 ml Balance -1001.126 ml -230.0 ml IV Total 1173.874 ml 710.0 ml Other 30 ml Output Urine Total 375 ml 420 ml Stool Total 100 ml Gastric Drainage Total 1700 ml 550 ml Laboratory Tests 09/14/18 04:00: White Blood Count 8.4, Red Blood Count 2.65L, Hemoglobin 8.1L, Hematocrit 24.6L , Mean Corpuscular Volume 93, Mean Corpuscular Hemoglobin 30.4, Mean Corpuscular Hemoglobin Concent 32.8, Red Cell Distribution Width 13.4, Platelet Count 260, Mean Platelet Volume 6.0L, Neutrophils (%) (Auto) , Lymphocytes (%) ( Auto) , Monocytes (%) (Auto) , Eosinophils (%) (Auto) , Basophils (%) (Auto) 09/14/18 04:25: Sodium Level 142, Potassium Level 3.7, Chloride Level 112H, Carbon Dioxide Level 17L, Anion Gap 13, Blood Urea Nitrogen 19H, Creatinine 1.7H, Estimat Glomerular Filtration Rate 41.3, Glucose Level 136H, Uric Acid 2.9, Calcium Level 7.4L, Phosphorus Level 2.6, Magnesium Level 1.5L, Iron Level 10L, Total Iron Binding Capacity 68L, Percent Iron Saturation 15, Unsaturated Iron Binding 58L, Total Bilirubin 0.8, Gamma Glutamyl Transpeptidase 84, Aspartate Amino Transf (AST/SGOT) 32, Alanine Aminotransferase (ALT/SGPT) 39, Alkaline Phosphatase 108, Total Creatine Kinase 76, Troponin I 0.077H, Pro-B-Type Natriuretic Peptide 2442H, Total Protein 5.2L, Albumin 1.4L, Globulin 3.8, Albumin/Globulin Ratio 0.4L, Vitamin B12 Level > 2000H, Folate 18.4 09/14/18 08:00: Vancomycin Level Trough 11.0 09/14/18 08:20: Arterial Blood pH 7.473H, Arterial Blood Partial Pressure CO2 21.8*L, Arterial Blood Partial Pressure O2 149.0H, Arterial Blood HCO3 15.6*L, Arterial Blood Oxygen Saturation 98.3, Arterial Blood Base Excess -6.8L, Harvey Test Positive Height (Feet): 5 Height (Inches): 6.00 Weight (Pounds): 130 General Appearance: lethargic EENT: normal ENT inspection Neck: normal alignment Cardiovascular: normal peripheral pulses, normal rate, regular rhythm Respiratory/Chest: chest wall non-tender, lungs clear, normal breath sounds Abdomen: normal bowel sounds, non tender, soft Extremities: normal inspection Edema: no edema noted Arm (L), no edema noted Arm (R), no edema noted Leg (L), no edema noted Leg (R), no edema noted Pedal (L), no edema noted Pedal (R), no edema noted Generalized Neurologic: motor weakness Skin: normal pigmentation, warm/dry Jasmeet Reynoso DO Sep 14, 2018 13:39
--- NOTE | 2018-09-14 16:14 | Cardiac Electrophysiology PN ---
Assessment/Plan Assessment/Plan 1. Septic shock with high Lactic acid. On iv fluids and Abx off pressors 2. Sinus tachycardia with heart rate in 140s due to the patient's septic shock and dehydration. No evidence of atrial fibrillation or any other supraventricular tachycardia. Echocardiogram EF of 75%. 3. Troponin elevation, likely due to renal failure. EF 75%. 4. Respiratory failure on the vent 5. Rhabdomyolysis with CPK in thousands. May be contributing to renal failure. 6. Acute renal failure and severe hyperkalemia. Further evaluation by Dr. Smalls as well as ID. 7. Dysphagia, status post PEG placement. Subjective Subjective On Vent unresponsive off pressors Objective Last 24 Hour Vital Signs Date Time Temp Pulse Resp B/P (MAP) Pulse Ox O2 Delivery O2 Flow Rate FiO2 09/14/18 15:31 100 24 35 09/14/18 15:00 94 15 127/53 100 Mechanical Ventilator 35 09/14/18 14:00 93 15 116/73 100 Mechanical Ventilator 35 09/14/18 13:00 94 15 108/68 100 Mechanical Ventilator 35 09/14/18 12:55 96 13 35 09/14/18 12:00 35 09/14/18 12:00 Mechanical Ventilator Mechanical Ventilator 09/14/18 12:00 100.3 95 15 108/68 100 Mechanical Ventilator 35 09/14/18 12:00 99 09/14/18 11:00 96 14 107/64 100 Mechanical Ventilator 35 09/14/18 10:35 99 16 35 09/14/18 10:33 100.7 09/14/18 10:00 103 14 93/57 100 Mechanical Ventilator 35 09/14/18 09:00 102 15 96/59 100 Mechanical Ventilator 35 09/14/18 08:37 107 16 35 09/14/18 08:00 100.2 103 15 97/58 100 Mechanical Ventilator 35 09/14/18 08:00 Mechanical Ventilator Mechanical Ventilator 09/14/18 08:00 106 09/14/18 08:00 35 09/14/18 08:00 35 09/14/18 07:17 102 14 35 09/14/18 07:00 100 15 98/63 100 Mechanical Ventilator 35 09/14/18 06:00 100 15 108/67 100 Mechanical Ventilator 35 09/14/18 05:15 96 14 35 09/14/18 05:00 97 15 109/72 100 Mechanical Ventilator 35 09/14/18 04:00 98.9 100 15 102/64 100 Mechanical Ventilator 35 09/14/18 04:00 112 09/14/18 04:00 35 09/14/18 04:00 Mechanical Ventilator Mechanical Ventilator 09/14/18 03:00 107 17 107/64 100 Mechanical Ventilator 35 09/14/18 02:53 104 15 35 09/14/18 02:00 105 15 97/63 100 Mechanical Ventilator 35 09/14/18 01:15 103 13 35 09/14/18 01:00 107 16 98/71 100 Mechanical Ventilator 35 09/14/18 00:00 35 09/14/18 00:00 99.1 111 15 82/48 100 Mechanical Ventilator 35 09/14/18 00:00 109 09/14/18 00:00 Mechanical Ventilator Mechanical Ventilator 09/13/18 23:00 103 15 90/73 100 Mechanical Ventilator 35 09/13/18 22:45 108 18 35 09/13/18 22:00 106 17 103/66 100 Mechanical Ventilator 35 09/13/18 21:00 101 16 98/62 100 Mechanical Ventilator 35 09/13/18 20:55 109 18 35 09/13/18 20:21 104/65 09/13/18 20:00 35 09/13/18 20:00 Mechanical Ventilator Mechanical Ventilator 09/13/18 20:00 112 09/13/18 20:00 99.0 100 19 104/65 100 Mechanical Ventilator 35 09/13/18 19:00 114 15 116/67 100 Mechanical Ventilator 35 09/13/18 18:58 113 18 Mechanical Ventilator 35 09/13/18 18:58 113 18 35 09/13/18 18:00 113 14 99/64 100 Mechanical Ventilator 35 09/13/18 17:00 97 14 97/65 100 Mechanical Ventilator 35 09/13/18 16:56 96 13 35 Intake and Output 09/13/18 09/14/18 18:59 06:59 Intake Total 1173.874 ml 740.0 ml Output Total 2175 ml 970 ml Balance -1001.126 ml -230.0 ml IV Total 1173.874 ml 710.0 ml Other 30 ml Output Urine Total 375 ml 420 ml Stool Total 100 ml Gastric Drainage Total 1700 ml 550 ml Laboratory Tests Test 09/14/18 04:00 09/14/18 04:25 09/14/18 08:00 09/14/18 08:20 White Blood Count 8.4 K/UL (4.8-10.8) Red Blood Count 2.65 M/UL (4.70-6.10) L Hemoglobin 8.1 G/DL (14.2-18.0) L Hematocrit 24.6 % (42.0-52.0) L Mean Corpuscular Volume 93 FL (80-99) Mean Corpuscular Hemoglobin 30.4 PG (27.0-31.0) Mean Corpuscular Hemoglobin Concent 32.8 G/DL (32.0-36.0) Red Cell Distribution Width 13.4 % (11.6-14.8) Platelet Count 260 K/UL (150-450) Mean Platelet Volume 6.0 FL (6.5-10.1) L Neutrophils (%) (Auto) % (45.0-75.0) Lymphocytes (%) (Auto) % (20.0-45.0) Monocytes (%) (Auto) % (1.0-10.0) Eosinophils (%) (Auto) % (0.0-3.0) Basophils (%) (Auto) % (0.0-2.0) Sodium Level 142 MMOL/L (136-145) Potassium Level 3.7 MMOL/L (3.5-5.1) Chloride Level 112 MMOL/L (98-107) H Carbon Dioxide Level 17 MMOL/L (21-32) L Anion Gap 13 mmol/L (5-15) Blood Urea Nitrogen 19 mg/dL (7-18) H Creatinine 1.7 MG/DL (0.55-1.30) H Estimat Glomerular Filtration Rate 41.3 mL/min (>60) Glucose Level 136 MG/DL (74-106) H Uric Acid 2.9 MG/DL (2.6-7.2) Calcium Level 7.4 MG/DL (8.5-10.1) L Phosphorus Level 2.6 MG/DL (2.5-4.9) Magnesium Level 1.5 MG/DL (1.8-2.4) L Iron Level 10 ug/dL (50-175) L Total Iron Binding Capacity 68 ug/dL (250-450) L Percent Iron Saturation 15 % (15-50) Unsaturated Iron Binding 58 ug/dL (112-346) L Total Bilirubin 0.8 MG/DL (0.2-1.0) Gamma Glutamyl Transpeptidase 84 U/L (5-85) Aspartate Amino Transf (AST/SGOT) 32 U/L (15-37) Alanine Aminotransferase (ALT/SGPT) 39 U/L (12-78) Alkaline Phosphatase 108 U/L (46-116) Total Creatine Kinase 76 U/L (26-308) Troponin I 0.077 ng/mL (0.000-0.056) Pro-B-Type Natriuretic Peptide 2442 pg/mL (0-125) H Total Protein 5.2 G/DL (6.4-8.2) L Albumin 1.4 G/DL (3.4-5.0) L Globulin 3.8 g/dL Albumin/Globulin Ratio 0.4 (1.0-2.7) L Vitamin B12 Level > 2000 PG/ML (193-986) H Folate 18.4 NG/ML (8.6-58.9) Vancomycin Level Trough 11.0 ug/mL (5.0-12.0) Arterial Blood pH 7.473 (7.350-7.450) Arterial Blood Partial Pressure CO2 21.8 mmHg (35.0-45.0) *L Arterial Blood Partial Pressure O2 149.0 mmHg (75.0-100.0) H Arterial Blood HCO3 15.6 mmol/L (22.0-26.0) *L Arterial Blood Oxygen Saturation 98.3 % (95-100) Arterial Blood Base Excess -6.8 (-2-2) L Harvey Test Positive Objective HEENT: Orally intubted. LUNGS: Coarse rhonchi. CARDIOVASCULAR: Regular S1 and S2. Tachycardic. ABDOMEN: Soft, status post G-tube. EXTREMITIES: No pitting edema. Jasbir Madsen MD Sep 14, 2018 16:14
[2018-09-14] MEDS: Erythromycin Ethylsuccinate 200mg/5ml Susp GT SCH (17:35)
--- NOTE | 2018-09-14 18:15 | Progress Note ---
DATE: 09/14/2018 SUBJECTIVE: This is a 62-year-old male patient, who came to the hospital. This patient is currently in the ICU, right now going into septic shock, but he diagnosis of paranoid schizophrenia, some mood lability, and altered mental status. He is now . He does have confusion and altered mental status worsened by the progression of his medical illness. That is why his attending has requested daily psychiatric consultation to try to prevent any further decline in this patient's cognition below his baseline. DIAGNOSIS: Paranoid schizophrenia, acute exacerbation. PLAN: Treat him with the medication regimen consisting of Risperdal 0.25 mg twice a day and Ativan 1 mg q.6 h. p.r.n. anxiety and agitation. Provided him with 20 minutes of behavioral management. Chart reviewed. Discussed with staff. Seen and assessed at bedside. Virgie Mcdermott M.D. DR: NOAH JOB#: [id number] CC:
[2018-09-14] MEDS: Norepinephrine Bitartrate 8 MG in D5W 500ml 550 ML IV SCH (21:00)
[2018-09-15] VITALS (23 sets, daily range): BP systolic 98–128; BP diastolic 51–82
[2018-09-15] MEDS: NovoLOG Insulin Flexpen SUBQ SCH ×6 (00:25→21:06)
[2018-09-15] MEDS: Erythromycin Ethylsuccinate 200mg/5ml Susp GT SCH ×5 (05:25→17:50)
[2018-09-15] MEDS: Piperacillin/Tazobactam 3.375 GM in D5W 110 ML IVPB SCH ×3 (05:25→22:04)
[2018-09-15 05:39] LABS: HEMATOCRIT 24.1 % (42.0-52.0); HEMOGLOBIN 7.8 G/DL (14.2-18.0); MEAN CORPUSCULAR VOLUME 92 FL (80-99); PLATELET COUNT 316 K/UL (150-450); RED BLOOD COUNT 2.61 M/UL (4.70-6.10); RED CELL DISTRIBUTION WIDTH 12.9 % (11.6-14.8)
[2018-09-15 05:40] LABS: INR 1.1 (0.9-1.1)
[2018-09-15 06:30] LABS: ALANINE AMINOTRANSFERASE 32 U/L (12-78); ALBUMIN 1.3 G/DL (3.4-5.0); ALBUMIN/GLOBULIN RATIO 0.3 (1.0-2.7); ALKALINE PHOSPHATASE 92 U/L (46-116); ANION GAP 13 mmol/L (5-15); ASPARTATE AMINO TRANSFERASE 26 U/L (15-37); BILIRUBIN,TOTAL 0.6 MG/DL (0.2-1.0); BLOOD UREA NITROGEN 11 mg/dL (7-18); CARBON DIOXIDE 16 MMOL/L (21-32); CHLORIDE 113 MMOL/L (98-107); CREATININE 1.4 MG/DL (0.55-1.30); PHOSPHORUS 2.8 MG/DL (2.5-4.9); POTASSIUM 3.4 MMOL/L (3.5-5.1); SODIUM 142 MMOL/L (136-145)
[2018-09-15] MEDS: Acetaminophen 650mg/20.3ml NG PRN ×2 (09:30→18:00)
[2018-09-15] MEDS: Pantoprazole Inj IVP SCH ×2 (09:35→21:03)
--- NOTE | 2018-09-15 09:46 | Infectious Diseases Prog Note ---
Assessment/Plan Assessment/Plan 62 yo male with PMHx of Quadriplegia with G-tube, HTN, DM and Schizophenia who was [facility] ED [facility] for AMS. Sepsis - Probably PNA but will f/u other cultures No intubated on vent 45% CXR 09/07/18 - possible left sided consolidation Inf neg 09/07/18 BCx 2/2 sets diphteroids, 1/2 setse S. epi (contaminants); 2/ Bcx NTD 09/07/18 SCx - NF 09/07/18 UCx - Neg 09/09 Cdiff neg No leukocytosis Febrile to 103 on admit; improving HTN DM Schizophenia Quadriplegia. G- tube dependent Plan - Continue Ceftriaxone #/ - Continue Vancmocyin #/10 - 09/09/18 Ertapenem #3 pending Cx - Monitor CBC and temps We will continue to follow the patient during this hospitalization. Subjective Allergies: Coded Allergies: No Known Allergies (Unverified , 08/14/18) Subjective Fever yesterday 100.7 No leukocytosis Objective Vital Signs Last 24 Hour Vital Signs Date Time Temp Pulse Resp B/P (MAP) Pulse Ox O2 Delivery O2 Flow Rate FiO2 09/15/18 09:21 100 21 35 09/15/18 07:17 97 15 35 09/15/18 06:00 99 14 116/73 100 Mechanical Ventilator 35 09/15/18 05:07 98 13 35 09/15/18 05:00 97 14 124/73 100 Mechanical Ventilator 35 09/15/18 04:00 99.5 96 14 127/71 100 Mechanical Ventilator 35 09/15/18 04:00 Mechanical Ventilator Mechanical Ventilator 09/15/18 04:00 99 09/15/18 04:00 35 09/15/18 03:15 97 14 35 09/15/18 03:00 101 15 125/82 100 Mechanical Ventilator 35 09/15/18 02:00 107 19 105/66 100 Mechanical Ventilator 35 09/15/18 01:05 113 18 35 09/15/18 01:00 107 19 118/75 100 Mechanical Ventilator 35 09/15/18 00:00 35 09/15/18 00:00 102 09/15/18 00:00 99.9 100 15 115/68 100 Mechanical Ventilator 35 09/15/18 00:00 Mechanical Ventilator Mechanical Ventilator 09/14/18 23:02 102 19 35 09/14/18 23:00 101 15 109/61 100 Mechanical Ventilator 35 09/14/18 22:00 104 16 98/57 100 Mechanical Ventilator 35 09/14/18 21:00 116/66 09/14/18 21:00 111 21 124/78 100 Mechanical Ventilator 35 09/14/18 20:40 110 17 35 09/14/18 20:00 101 09/14/18 20:00 35 09/14/18 20:00 100.0 99 14 110/72 100 Mechanical Ventilator 35 09/14/18 20:00 Mechanical Ventilator Mechanical Ventilator 09/14/18 19:29 101 15 35 09/14/18 19:00 101 16 101/63 100 Mechanical Ventilator 35 09/14/18 18:00 103 14 98/54 100 Mechanical Ventilator 35 09/14/18 17:00 107 15 92/54 99 Mechanical Ventilator 35 09/14/18 16:38 124 26 35 09/14/18 16:00 99.8 124 15 123/62 100 Mechanical Ventilator 35 09/14/18 16:00 117 09/14/18 16:00 Mechanical Ventilator Mechanical Ventilator 09/14/18 16:00 35 09/14/18 15:31 100 24 35 09/14/18 15:00 94 15 127/53 100 Mechanical Ventilator 35 09/14/18 14:00 93 15 116/73 100 Mechanical Ventilator 35 09/14/18 13:00 94 15 108/68 100 Mechanical Ventilator 35 09/14/18 12:55 96 13 35 09/14/18 12:00 35 09/14/18 12:00 Mechanical Ventilator Mechanical Ventilator 09/14/18 12:00 100.3 95 15 108/68 100 Mechanical Ventilator 35 09/14/18 12:00 99 09/14/18 11:00 96 14 107/64 100 Mechanical Ventilator 35 09/14/18 10:35 99 16 35 09/14/18 10:33 100.7 09/14/18 10:00 103 14 93/57 100 Mechanical Ventilator 35 Height (Feet): 5 Height (Inches): 6.00 Weight (Pounds): 131 Objective Gen: NAD, On vent satting HEENT: NCAT, MMM, EOMI LUNGS: CTAB, No W/C, CARDS: RRR, S1, S2, No M/R/G, ABD: Soft, NT, distended, + BS,G tube (No E/P) NEURO: Intubated, not following Laboratory Tests Test 09/15/18 04:50 09/15/18 08:10 White Blood Count 8.0 K/UL (4.8-10.8) Red Blood Count 2.61 M/UL (4.70-6.10) L Hemoglobin 7.8 G/DL (14.2-18.0) L Hematocrit 24.1 % (42.0-52.0) L Mean Corpuscular Volume 92 FL (80-99) Mean Corpuscular Hemoglobin 30.0 PG (27.0-31.0) Mean Corpuscular Hemoglobin Concent 32.5 G/DL (32.0-36.0) Red Cell Distribution Width 12.9 % (11.6-14.8) Platelet Count 316 K/UL (150-450) Mean Platelet Volume 5.7 FL (6.5-10.1) L Neutrophils (%) (Auto) % (45.0-75.0) Lymphocytes (%) (Auto) % (20.0-45.0) Monocytes (%) (Auto) % (1.0-10.0) Eosinophils (%) (Auto) % (0.0-3.0) Basophils (%) (Auto) % (0.0-2.0) Differential Total Cells Counted 100 Neutrophils % (Manual) 75 % (45-75) Lymphocytes % (Manual) 8 % (20-45) L Monocytes % (Manual) 1 % (1-10) Eosinophils % (Manual) 2 % (0-3) Basophils % (Manual) 0 % (0-2) Myelocytes % 2 % (0-0) H Band Neutrophils 12 % (0-8) H Platelet Estimate Adequate Platelet Morphology Normal Red Blood Cell Morphology Normal Prothrombin Time 12.0 SEC (9.30-11.50) H Prothromb Time International Ratio 1.1 (0.9-1.1) Activated Partial Thromboplast Time 36 SEC (23-33) H Sodium Level 142 MMOL/L (136-145) Potassium Level 3.4 MMOL/L (3.5-5.1) L Chloride Level 113 MMOL/L (98-107) H Carbon Dioxide Level 16 MMOL/L (21-32) L Anion Gap 13 mmol/L (5-15) Blood Urea Nitrogen 11 mg/dL (7-18) Creatinine 1.4 MG/DL (0.55-1.30) H Estimat Glomerular Filtration Rate 51.7 mL/min (>60) Glucose Level 139 MG/DL (74-106) H Calcium Level 7.0 MG/DL (8.5-10.1) L Phosphorus Level 2.8 MG/DL (2.5-4.9) Magnesium Level 1.5 MG/DL (1.8-2.4) L Total Bilirubin 0.6 MG/DL (0.2-1.0) Aspartate Amino Transf (AST/SGOT) 26 U/L (15-37) Alanine Aminotransferase (ALT/SGPT) 32 U/L (12-78) Alkaline Phosphatase 92 U/L (46-116) Total Protein 5.2 G/DL (6.4-8.2) L Albumin 1.3 G/DL (3.4-5.0) L Globulin 3.9 g/dL Albumin/Globulin Ratio 0.3 (1.0-2.7) L Arterial Blood pH 7.476 (7.350-7.450) Arterial Blood Partial Pressure CO2 21.9 mmHg (35.0-45.0) *L Arterial Blood Partial Pressure O2 163.9 mmHg (75.0-100.0) H Arterial Blood HCO3 15.8 mmol/L (22.0-26.0) *L Arterial Blood Oxygen Saturation 98.5 % (95-100) Arterial Blood Base Excess -6.6 (-2-2) L Harvey Test Positive Current Medications Medications (Trade) Dose Ordered Sig/Julito Route PRN Reason Start Time Stop Time Status Last Admin Dose Admin Acetaminophen (Tylenol) 650 mg Q4H PRN NG Mild Pain/Temp > 100.5 09/08/18 13:30 10/08/18 13:29 09/14/18 10:03 Albuterol/ Ipratropium (Albuterol/ Ipratropium) 3 ml Q4H PRN HHN sob 09/13/18 10:45 09/18/18 10:44 Dextrose (Dextrose 50%) 25 ml Q30M PRN IV Hypoglycemia 09/08/18 13:30 10/08/18 13:29 Dextrose (Dextrose 50%) 50 ml Q30M PRN IV Hypoglycemia 09/08/18 13:30 10/08/18 13:29 Dextrose/Sodium Chloride 1,000 ml @ 50 mls/hr Q20H IV 09/13/18 13:45 10/13/18 13:44 09/14/18 13:07 Erythromycin (Jossue-Ped) 200 mg Q6HR GT 09/14/18 18:00 09/21/18 17:59 09/15/18 07:22 Heparin Sodium (Porcine) (Heparin 5000 units/ml) 5,000 units EVERY 12 HOURS SUBQ 09/07/18 21:00 10/07/18 20:59 09/12/18 09:04 Insulin Aspart (NovoLOG) EVERY 4 HOURS SUBQ 09/08/18 14:30 10/08/18 14:29 09/15/18 05:24 Loperamide HCl (Imodium) 4 mg TIDPRN PRN ORAL Diarrhea 09/10/18 13:00 10/10/18 12:59 09/11/18 03:51 Lorazepam (Ativan) 1 mg Q6H PRN ORAL For Anxiety 09/10/18 04:00 09/17/18 03:59 Magnesium Sulfate 100 ml @ 100 mls/hr Q1H IVPB 09/15/18 09:45 09/15/18 13:44 UNV Midodrine (Pro-Amatine) 2.5 mg THREE TIMES A DAY GT 09/13/18 18:00 10/13/18 17:59 09/15/18 09:36 Norepinephrine Bitartrate 8 mg/ Dextrose 558 ml @ 0 mls/hr Q24H IV 09/08/18 21:00 10/08/18 20:59 09/10/18 18:37 Ondansetron HCl (Zofran) 4 mg Q6H PRN IVP Nausea & Vomiting 09/07/18 15:15 10/07/18 15:14 Pantoprazole (Protonix) 40 mg Q12HR IVP 09/07/18 21:00 10/08/18 08:59 09/15/18 09:35 Piperacillin Sod/ Tazobactam Sod 3.375 gm/Dextrose 110 ml @ 27.5 mls/hr Q8HR IVPB 09/09/18 14:00 09/19/18 13:59 2/5/19 05:25 Polyethylene Glycol (Miralax) 17 gm DAILYPRN PRN ORAL Constipation 09/07/18 15:15 10/07/18 15:14 Potassium Chloride 100 ml @ 100 mls/hr Q1HR IVPB 09/15/18 10:00 09/15/18 13:59 UNV Risperidone (RisperDAL) 0.25 mg QHS ORAL 09/10/18 21:00 10/10/18 20:59 09/14/18 20:58 Sodium Chloride 500 ml @ 999 mls/hr Q31M PRN IV SBP<90mmHg 09/08/18 11:00 10/08/18 10:59 09/08/18 12:34 Vancomycin HCl (Vanco rx to dose) 1 ea DAILY PRN MISC PER PHARMACY 09/07/18 16:30 10/07/18 16:29 Vancomycin HCl 500 mg/Dextrose 110 ml @ 110 mls/hr Q12H IVPB 09/14/18 11:00 09/19/18 10:59 09/14/18 22:48 Asim De Leon MD Sep 15, 2018 09:46
[2018-09-15] MEDS: Heparin 5000 units/ml inj SUBQ SCH ×2 (09:55→21:00)
--- NOTE | 2018-09-15 10:27 | Pulmonolgy Critical Care Note ---
Critical Care - Asmt/Plan Problems: (1) Septic shock (2) ATN (acute tubular necrosis) (3) Hyperkalemia (4) Metabolic acidosis Respiratory: monitor respiratory rate, adjust FIO2, CXR Cardiac: continue to monitor HR/BP Renal: F/U I&O, keep IV fluid, check electrolytes Infectious Disease: check cultures, continue antibiotics Gastrointestinal: continue feedings/current rate Endocrine: monitor blood sugar Hematologic: monitor H/H, transfuse if hgb<8.5 Neurologic: PRN Ativan, keep patient comfortable Prophylaxis: Protonix, Heparin Notes Reviewed: beauty specialist, cardio, renal Discussed with: nurses, consultants, porter sample casepolice manager - Objective Last 24 Hour Vital Signs Date Time Temp Pulse Resp B/P (MAP) Pulse Ox O2 Delivery O2 Flow Rate FiO2 09/15/18 09:21 100 21 35 09/15/18 07:17 97 15 35 09/15/18 06:00 99 14 116/73 100 Mechanical Ventilator 35 09/15/18 05:07 98 13 35 09/15/18 05:00 97 14 124/73 100 Mechanical Ventilator 35 09/15/18 04:00 99.5 96 14 127/71 100 Mechanical Ventilator 35 09/15/18 04:00 Mechanical Ventilator Mechanical Ventilator 09/15/18 04:00 99 09/15/18 04:00 35 09/15/18 03:15 97 14 35 09/15/18 03:00 101 15 125/82 100 Mechanical Ventilator 35 09/15/18 02:00 107 19 105/66 100 Mechanical Ventilator 35 09/15/18 01:05 113 18 35 09/15/18 01:00 107 19 118/75 100 Mechanical Ventilator 35 09/15/18 00:00 35 09/15/18 00:00 102 09/15/18 00:00 99.9 100 15 115/68 100 Mechanical Ventilator 09/15/18 00:00 Mechanical Ventilator Mechanical Ventilator 09/14/18 23:02 102 19 35 09/14/18 23:00 101 15 109/61 100 Mechanical Ventilator 35 09/14/18 22:00 104 16 98/57 100 Mechanical Ventilator 35 09/14/18 21:00 116/66 09/14/18 21:00 111 21 124/78 100 Mechanical Ventilator 35 09/14/18 20:40 110 17 35 09/14/18 20:00 101 09/14/18 20:00 35 09/14/18 20:00 100.0 99 14 110/72 100 Mechanical Ventilator 35 09/14/18 20:00 Mechanical Ventilator Mechanical Ventilator 09/14/18 19:29 101 15 35 09/14/18 19:00 101 16 101/63 100 Mechanical Ventilator 35 09/14/18 18:00 103 14 98/54 100 Mechanical Ventilator 35 09/14/18 17:00 107 15 92/54 99 Mechanical Ventilator 35 09/14/18 16:38 124 26 35 09/14/18 16:00 99.8 124 15 123/62 100 Mechanical Ventilator 35 09/14/18 16:00 117 09/14/18 16:00 Mechanical Ventilator Mechanical Ventilator 09/14/18 16:00 35 09/14/18 15:31 100 24 35 09/14/18 15:00 94 15 127/53 100 Mechanical Ventilator 35 09/14/18 14:00 93 15 116/73 100 Mechanical Ventilator 35 09/14/18 13:00 94 15 108/68 100 Mechanical Ventilator 35 09/14/18 12:55 96 13 35 09/14/18 12:00 35 09/14/18 12:00 Mechanical Ventilator Mechanical Ventilator 09/14/18 12:00 100.3 95 15 108/68 100 Mechanical Ventilator 09/14/18 12:00 99 09/14/18 11:00 96 14 107/64 100 Mechanical Ventilator 09/14/18 10:35 99 16 35 09/14/18 10:33 100.7 Status: awake Condition: critical HEENT: atraumatic Lungs: clear Heart: HR/BP stable, regular Abdomen: active bowel sounds Extremities: no C/C/E Decubiti: location Accucheck: 109 Critical Care - Subjective ROS Limited/Unobtainable: Yes Condition: critical EKG Rhythm: Sinus Rhythm FI02: 35 Vent Support Breath Rate: 12 Vent Support Mode: AC Vent Tidal Volume: 600 Sputum Amount: Small PEEP: 0.0 PIP: 22 Tube Feeding Amount: 30 I&O: Intake and Output 09/14/18 09/15/18 19:00 07:00 Intake Total 802.5 ml 582.5 ml Output Total 850 ml 505 ml Balance -47.5 ml 77.5 ml IV Total 802.5 ml 582.5 ml Output Urine Total 450 ml 505 ml Stool Total 200 ml Gastric Drainage Total 200 ml CXR: ET in good position ET-Tube: 7.5 ET Position: 23 Labs: Laboratory Tests Test 09/15/18 04:50 09/15/18 08:10 White Blood Count 8.0 K/UL (4.8-10.8) Red Blood Count 2.61 M/UL (4.70-6.10) L Hemoglobin 7.8 G/DL (14.2-18.0) L Hematocrit 24.1 % (42.0-52.0) L Mean Corpuscular Volume 92 FL (80-99) Mean Corpuscular Hemoglobin 30.0 PG (27.0-31.0) Mean Corpuscular Hemoglobin Concent 32.5 G/DL (32.0-36.0) Red Cell Distribution Width 12.9 % (11.6-14.8) Platelet Count 316 K/UL (150-450) Mean Platelet Volume 5.7 FL (6.5-10.1) L Neutrophils (%) (Auto) % (45.0-75.0) Lymphocytes (%) (Auto) % (20.0-45.0) Monocytes (%) (Auto) % (1.0-10.0) Eosinophils (%) (Auto) % (0.0-3.0) Basophils (%) (Auto) % (0.0-2.0) Differential Total Cells Counted 100 Neutrophils % (Manual) 75 % (45-75) Lymphocytes % (Manual) 8 % (20-45) L Monocytes % (Manual) 1 % (1-10) Eosinophils % (Manual) 2 % (0-3) Basophils % (Manual) 0 % (0-2) Myelocytes % 2 % (0-0) H Band Neutrophils 12 % (0-8) H Platelet Estimate Adequate Platelet Morphology Normal Red Blood Cell Morphology Normal Prothrombin Time 12.0 SEC (9.30-11.50) H Prothromb Time International Ratio 1.1 (0.9-1.1) Activated Partial Thromboplast Time 36 SEC (23-33) H Sodium Level 142 MMOL/L (136-145) Potassium Level 3.4 MMOL/L (3.5-5.1) L Chloride Level 113 MMOL/L (98-107) H Carbon Dioxide Level 16 MMOL/L (21-32) L Anion Gap 13 mmol/L (5-15) Blood Urea Nitrogen 11 mg/dL (7-18) Creatinine 1.4 MG/DL (0.55-1.30) H Estimat Glomerular Filtration Rate 51.7 mL/min (>60) Glucose Level 139 MG/DL (74-106) H Calcium Level 7.0 MG/DL (8.5-10.1) L Phosphorus Level 2.8 MG/DL (2.5-4.9) Magnesium Level 1.5 MG/DL (1.8-2.4) L Total Bilirubin 0.6 MG/DL (0.2-1.0) Aspartate Amino Transf (AST/SGOT) 26 U/L (15-37) Alanine Aminotransferase (ALT/SGPT) 32 U/L (12-78) Alkaline Phosphatase 92 U/L (46-116) Total Protein 5.2 G/DL (6.4-8.2) L Albumin 1.3 G/DL (3.4-5.0) L Globulin 3.9 g/dL Albumin/Globulin Ratio 0.3 (1.0-2.7) L Arterial Blood pH 7.476 (7.350-7.450) Arterial Blood Partial Pressure CO2 21.9 mmHg (35.0-45.0) *L Arterial Blood Partial Pressure O2 163.9 mmHg (75.0-100.0) H Arterial Blood HCO3 15.8 mmol/L (22.0-26.0) *L Arterial Blood Oxygen Saturation 98.5 % (95-100) Arterial Blood Base Excess -6.6 (-2-2) L Harvey Test Positive Po Li MD Sep 15, 2018 10:27
[2018-09-15] MEDS: D5NS 1,000 ML IV SCH (10:51)
[2018-09-15] MEDS ORDERED: Heparin 2000 units/Ns 1000ml INJ PRN (11:00)
[2018-09-15] MEDS ORDERED: Lidocaine 1% Plain 30 ml INJ PRN (11:00)
--- NOTE | 2018-09-15 12:17 | Diagnostic Imaging Report ---
Indication: Dyspnea Comparison: 09/14/2018 A single view chest radiograph was obtained. Findings: Endotracheal tube position is stable. Mild basal atelectasis suspected. Heart size is normal. IMPRESSION: Basilar atelectasis
[2018-09-15] MEDS: Vancomycin 500mg/D5W 110ml IVPB SCH ×4 (12:38→23:46)
--- NOTE | 2018-09-15 12:44 | Nephrology Progress Note ---
Assessment/Plan Problem List: (1) ATN (acute tubular necrosis) (2) Septic shock (3) Lactic acid acidosis (4) Metabolic acidosis (5) Hyperkalemia (6) G tube feedings (7) Acute respiratory failure Assessment over all improved: cr higher today 1.4 to 1.7 presented with Shock , likely septic Acute renal failure Acute metabolic acidosis Hyperkalemia PEG Recent Pneumonia Plan plan: hold feeding due to high residual trial reglan midodrine pulmonary support Fluid challenge as needed Silva K and Phos supplement as needed antibiotics monitor renal parameters and ABG Subjective ROS Limited/Unobtainable: Yes Objective Objective Last 24 Hour Vital Signs Date Time Temp Pulse Resp B/P (MAP) Pulse Ox O2 Delivery O2 Flow Rate FiO2 09/15/18 11:00 100.6 16 111/65 100 Mechanical Ventilator 35 09/15/18 10:58 96 15 35 09/15/18 10:00 98 16 111/65 100 Mechanical Ventilator 35 09/15/18 09:21 100 21 35 09/15/18 09:00 101 18 116/61 100 Mechanical Ventilator 35 09/15/18 08:00 Mechanical Ventilator Mechanical Ventilator 09/15/18 08:00 99 09/15/18 08:00 35 09/15/18 08:00 100.1 99 18 121/69 100 Mechanical Ventilator 35 09/15/18 07:17 97 15 35 09/15/18 06:00 99 14 116/73 100 Mechanical Ventilator 35 09/15/18 05:07 98 13 35 09/15/18 05:00 97 14 124/73 100 Mechanical Ventilator 35 09/15/18 04:00 99.5 96 14 127/71 100 Mechanical Ventilator 35 09/15/18 04:00 Mechanical Ventilator Mechanical Ventilator 09/15/18 04:00 99 09/15/18 04:00 35 09/15/18 03:15 97 14 35 09/15/18 03:00 101 15 125/82 100 Mechanical Ventilator 35 09/15/18 02:00 107 19 105/66 100 Mechanical Ventilator 35 09/15/18 01:05 113 18 35 09/15/18 01:00 107 19 118/75 100 Mechanical Ventilator 35 09/15/18 00:00 35 09/15/18 00:00 102 09/15/18 00:00 99.9 100 15 115/68 100 Mechanical Ventilator 35 09/15/18 00:00 Mechanical Ventilator Mechanical Ventilator 09/14/18 23:02 102 19 35 09/14/18 23:00 101 15 109/61 100 Mechanical Ventilator 35 09/14/18 22:00 104 16 98/57 100 Mechanical Ventilator 35 09/14/18 21:00 116/66 09/14/18 21:00 111 21 124/78 100 Mechanical Ventilator 35 09/14/18 20:40 110 17 35 09/14/18 20:00 101 09/14/18 20:00 35 09/14/18 20:00 100.0 99 14 110/72 100 Mechanical Ventilator 35 09/14/18 20:00 Mechanical Ventilator Mechanical Ventilator 09/14/18 19:29 101 15 35 09/14/18 19:00 101 16 101/63 100 Mechanical Ventilator 35 09/14/18 18:00 103 14 98/54 100 Mechanical Ventilator 35 09/14/18 17:00 107 15 92/54 99 Mechanical Ventilator 35 09/14/18 16:38 124 26 35 09/14/18 16:00 99.8 124 15 123/62 100 Mechanical Ventilator 35 09/14/18 16:00 117 09/14/18 16:00 Mechanical Ventilator Mechanical Ventilator 09/14/18 16:00 35 09/14/18 15:31 100 24 35 09/14/18 15:00 94 15 127/53 100 Mechanical Ventilator 35 09/14/18 14:00 93 15 116/73 100 Mechanical Ventilator 35 09/14/18 13:00 94 15 108/68 100 Mechanical Ventilator 35 09/14/18 12:55 96 13 35 Intake and Output 09/14/18 09/15/18 19:00 07:00 Intake Total 802.5 ml 582.5 ml Output Total 850 ml 535 ml Balance -47.5 ml 47.5 ml IV Total 802.5 ml 582.5 ml Output Urine Total 450 ml 535 ml Stool Total 200 ml Gastric Drainage Total 200 ml Laboratory Tests 09/15/18 04:50: White Blood Count 8.0, Red Blood Count 2.61L, Hemoglobin 7.8L, Hematocrit 24.1L , Mean Corpuscular Volume 92, Mean Corpuscular Hemoglobin 30.0, Mean Corpuscular Hemoglobin Concent 32.5, Red Cell Distribution Width 12.9, Platelet Count 316, Mean Platelet Volume 5.7L, Neutrophils (%) (Auto) , Lymphocytes (%) ( Auto) , Monocytes (%) (Auto) , Eosinophils (%) (Auto) , Basophils (%) (Auto) , Differential Total Cells Counted 100, Neutrophils % (Manual) 75, Lymphocytes % ( Manual) 8L, Monocytes % (Manual) 1, Eosinophils % (Manual) 2, Basophils % ( Manual) 0, Myelocytes % 2H, Band Neutrophils 12H, Platelet Estimate Adequate, Platelet Morphology Normal, Red Blood Cell Morphology Normal, Prothrombin Time 12.0H, Prothromb Time International Ratio 1.1, Activated Partial Thromboplast Time 36H, Sodium Level 142, Potassium Level 3.4L, Chloride Level 113H, Carbon Dioxide Level 16L, Anion Gap 13, Blood Urea Nitrogen 11, Creatinine 1.4H, Estimat Glomerular Filtration Rate 51.7, Glucose Level 139H, Calcium Level 7.0L , Phosphorus Level 2.8, Magnesium Level 1.5L, Total Bilirubin 0.6, Aspartate Amino Transf (AST/SGOT) 26, Alanine Aminotransferase (ALT/SGPT) 32, Alkaline Phosphatase 92, Total Protein 5.2L, Albumin 1.3L, Globulin 3.9, Albumin/ Globulin Ratio 0.3L 09/15/18 08:10: Arterial Blood pH 7.476H, Arterial Blood Partial Pressure CO2 21.9*L, Arterial Blood Partial Pressure O2 163.9H, Arterial Blood HCO3 15.8*L, Arterial Blood Oxygen Saturation 98.5, Arterial Blood Base Excess -6.6L, Harvey Test Positive Height (Feet): 5 Height (Inches): 6.00 Weight (Pounds): 131 General Appearance: no apparent distress EENT: other - vented Cardiovascular: tachycardia Respiratory/Chest: decreased breath sounds Abdomen: soft Josesito Smalls MD Sep 15, 2018 12:44
--- NOTE | 2018-09-15 13:50 | General Progress Note ---
Assessment/Plan Problem List: (1) UTI (urinary tract infection) ICD Codes: N39.0 - Urinary tract infection, site not specified SNOMED: 13610805 (2) Renal failure ICD Codes: N19 - Unspecified kidney failure SNOMED: 28081838 (3) Anemia ICD Codes: D64.9 - Anemia, unspecified SNOMED: 345109193 (4) Acute respiratory failure ICD Codes: J96.00 - Acute respiratory failure, unspecified whether with hypoxia or hypercapnia SNOMED: 31783434 (5) Pneumonia ICD Codes: J18.9 - Pneumonia, unspecified organism SNOMED: 130928916 (6) Septic shock ICD Codes: A41.9 - Sepsis, unspecified organism; R65.21 - Severe sepsis with septic shock SNOMED: 15247897 (7) ATN (acute tubular necrosis) ICD Codes: N17.0 - Acute kidney failure with tubular necrosis SNOMED: 34447917 Status: unchanged Assessment/Plan vent abx wound care neph f/u gi eval cbc bmp am ltach eval Subjective Constitutional: Reports: weakness Allergies: Coded Allergies: No Known Allergies (Unverified , 08/14/18) All Systems: reviewed and negative except above Subjective intubated sedated in icu Objective Last 24 Hour Vital Signs Date Time Temp Pulse Resp B/P (MAP) Pulse Ox O2 Delivery O2 Flow Rate FiO2 09/15/18 13:01 90 16 35 09/15/18 12:00 35 09/15/18 11:00 100.6 16 111/65 100 Mechanical Ventilator 35 09/15/18 10:58 96 15 35 09/15/18 10:00 98 16 111/65 100 Mechanical Ventilator 35 09/15/18 09:21 100 21 35 09/15/18 09:00 101 18 116/61 100 Mechanical Ventilator 35 09/15/18 08:00 Mechanical Ventilator Mechanical Ventilator 09/15/18 08:00 99 09/15/18 08:00 35 09/15/18 08:00 100.1 99 18 121/69 100 Mechanical Ventilator 35 09/15/18 07:17 97 15 35 09/15/18 06:00 99 14 116/73 100 Mechanical Ventilator 35 09/15/18 05:07 98 13 35 09/15/18 05:00 97 14 124/73 100 Mechanical Ventilator 35 09/15/18 04:00 99.5 96 14 127/71 100 Mechanical Ventilator 35 09/15/18 04:00 Mechanical Ventilator Mechanical Ventilator 09/15/18 04:00 99 09/15/18 04:00 35 09/15/18 03:15 97 14 35 09/15/18 03:00 101 15 125/82 100 Mechanical Ventilator 35 09/15/18 02:00 107 19 105/66 100 Mechanical Ventilator 35 09/15/18 01:05 113 18 35 09/15/18 01:00 107 19 118/75 100 Mechanical Ventilator 35 09/15/18 00:00 35 09/15/18 00:00 102 09/15/18 00:00 99.9 100 15 115/68 100 Mechanical Ventilator 35 09/15/18 00:00 Mechanical Ventilator Mechanical Ventilator 09/14/18 23:02 102 19 35 09/14/18 23:00 101 15 109/61 100 Mechanical Ventilator 35 09/14/18 22:00 104 16 98/57 100 Mechanical Ventilator 35 09/14/18 21:00 116/66 09/14/18 21:00 111 21 124/78 100 Mechanical Ventilator 35 09/14/18 20:40 110 17 35 09/14/18 20:00 101 09/14/18 20:00 35 09/14/18 20:00 100.0 99 14 110/72 100 Mechanical Ventilator 35 09/14/18 20:00 Mechanical Ventilator Mechanical Ventilator 09/14/18 19:29 101 15 35 09/14/18 19:00 101 16 101/63 100 Mechanical Ventilator 35 09/14/18 18:00 103 14 98/54 100 Mechanical Ventilator 35 09/14/18 17:00 107 15 92/54 99 Mechanical Ventilator 35 09/14/18 16:38 124 26 35 09/14/18 16:00 99.8 124 15 123/62 100 Mechanical Ventilator 35 09/14/18 16:00 117 09/14/18 16:00 Mechanical Ventilator Mechanical Ventilator 09/14/18 16:00 35 09/14/18 15:31 100 24 35 09/14/18 15:00 94 15 127/53 100 Mechanical Ventilator 35 09/14/18 14:00 93 15 116/73 100 Mechanical Ventilator 35 Intake and Output 09/14/18 09/15/18 19:00 07:00 Intake Total 802.5 ml 582.5 ml Output Total 850 ml 535 ml Balance -47.5 ml 47.5 ml IV Total 802.5 ml 582.5 ml Output Urine Total 450 ml 535 ml Stool Total 200 ml Gastric Drainage Total 200 ml Laboratory Tests 09/15/18 04:50: White Blood Count 8.0, Red Blood Count 2.61L, Hemoglobin 7.8L, Hematocrit 24.1L , Mean Corpuscular Volume 92, Mean Corpuscular Hemoglobin 30.0, Mean Corpuscular Hemoglobin Concent 32.5, Red Cell Distribution Width 12.9, Platelet Count 316, Mean Platelet Volume 5.7L, Neutrophils (%) (Auto) , Lymphocytes (%) ( Auto) , Monocytes (%) (Auto) , Eosinophils (%) (Auto) , Basophils (%) (Auto) , Differential Total Cells Counted 100, Neutrophils % (Manual) 75, Lymphocytes % ( Manual) 8L, Monocytes % (Manual) 1, Eosinophils % (Manual) 2, Basophils % ( Manual) 0, Myelocytes % 2H, Band Neutrophils 12H, Platelet Estimate Adequate, Platelet Morphology Normal, Red Blood Cell Morphology Normal, Prothrombin Time 12.0H, Prothromb Time International Ratio 1.1, Activated Partial Thromboplast Time 36H, Sodium Level 142, Potassium Level 3.4L, Chloride Level 113H, Carbon Dioxide Level 16L, Anion Gap 13, Blood Urea Nitrogen 11, Creatinine 1.4H, Estimat Glomerular Filtration Rate 51.7, Glucose Level 139H, Calcium Level 7.0L , Phosphorus Level 2.8, Magnesium Level 1.5L, Total Bilirubin 0.6, Aspartate Amino Transf (AST/SGOT) 26, Alanine Aminotransferase (ALT/SGPT) 32, Alkaline Phosphatase 92, Total Protein 5.2L, Albumin 1.3L, Globulin 3.9, Albumin/ Globulin Ratio 0.3L 09/15/18 08:10: Arterial Blood pH 7.476H, Arterial Blood Partial Pressure CO2 21.9*L, Arterial Blood Partial Pressure O2 163.9H, Arterial Blood HCO3 15.8*L, Arterial Blood Oxygen Saturation 98.5, Arterial Blood Base Excess -6.6L, Harvey Test Positive Height (Feet): 5 Height (Inches): 6.00 Weight (Pounds): 131 General Appearance: lethargic EENT: normal ENT inspection Neck: normal alignment Cardiovascular: normal peripheral pulses, normal rate, regular rhythm Respiratory/Chest: chest wall non-tender, lungs clear, normal breath sounds Abdomen: normal bowel sounds, non tender, soft Extremities: normal inspection Edema: no edema noted Arm (L), no edema noted Arm (R), no edema noted Leg (L), no edema noted Leg (R), no edema noted Pedal (L), no edema noted Pedal (R), no edema noted Generalized Neurologic: motor weakness Skin: normal pigmentation, warm/dry Jasmeet Reynoso DO Sep 15, 2018 13:50
--- NOTE | 2018-09-15 14:17 | Diagnostic Imaging Report ---
APPROVED REPORT CPT Code: 40469 Present Symptoms Shortness of breath BILATERAL: Imaging reveals a patent deep venous system bilaterally. There is no evidence of thrombus within the right femoral, popliteal or tibial segments. The greater saphenous veins are also within normal limits. Doppler indicates normal spontaneous flow within these segments. Note : Left common to proximal femoral veins not well visualized due to central line.
--- NOTE | 2018-09-15 15:12 | Cardiac Electrophysiology PN ---
Assessment/Plan Assessment/Plan 1. S/P Septic shock with high Lactic acid. On iv fluids and Abx but off pressors 2. Sinus tachycardia with heart rate in 140s due to the patient's septic shock and dehydration. No evidence of atrial fibrillation or any other supraventricular tachycardia. EF of 75%. 3. Troponin elevation, due to renal failure. EF 75%. 4. Respiratory failure on the vent 5. Rhabdomyolysis with CPK in thousands. May be contributing to renal failure. 6. Acute renal failure and severe hyperkalemia. Further evaluation by Dr. Smalls as well as ID. 7. Dysphagia, status post PEG placement. DW RN Subjective Subjective On Vent unresponsive off pressors. GT still connected suction with blood tinged material Objective Last 24 Hour Vital Signs Date Time Temp Pulse Resp B/P (MAP) Pulse Ox O2 Delivery O2 Flow Rate FiO2 09/15/18 14:00 14 105/59 100 Mechanical Ventilator 35 09/15/18 13:01 90 16 35 09/15/18 13:00 14 108/65 100 Mechanical Ventilator 35 09/15/18 12:00 Mechanical Ventilator Mechanical Ventilator 09/15/18 12:00 88 09/15/18 12:00 35 09/15/18 12:00 14 123/80 100 Mechanical Ventilator 35 09/15/18 11:00 100.6 16 111/65 100 Mechanical Ventilator 35 09/15/18 10:58 96 15 35 09/15/18 10:00 98 16 111/65 100 Mechanical Ventilator 35 09/15/18 09:21 100 21 35 09/15/18 09:00 101 18 116/61 100 Mechanical Ventilator 35 09/15/18 08:00 Mechanical Ventilator Mechanical Ventilator 09/15/18 08:00 99 09/15/18 08:00 35 09/15/18 08:00 100.1 99 18 121/69 100 Mechanical Ventilator 35 09/15/18 07:17 97 15 35 09/15/18 06:00 99 14 116/73 100 Mechanical Ventilator 35 09/15/18 05:07 98 13 35 09/15/18 05:00 97 14 124/73 100 Mechanical Ventilator 35 09/15/18 04:00 99.5 96 14 127/71 100 Mechanical Ventilator 35 09/15/18 04:00 Mechanical Ventilator Mechanical Ventilator 09/15/18 04:00 99 2/5/19 04:00 35 09/15/18 03:15 97 14 35 09/15/18 03:00 101 15 125/82 100 Mechanical Ventilator 35 09/15/18 02:00 107 19 105/66 100 Mechanical Ventilator 35 09/15/18 01:05 113 18 35 09/15/18 01:00 107 19 118/75 100 Mechanical Ventilator 35 09/15/18 00:00 35 09/15/18 00:00 102 09/15/18 00:00 99.9 100 15 115/68 100 Mechanical Ventilator 35 09/15/18 00:00 Mechanical Ventilator Mechanical Ventilator 09/14/18 23:02 102 19 35 09/14/18 23:00 101 15 109/61 100 Mechanical Ventilator 35 09/14/18 22:00 104 16 98/57 100 Mechanical Ventilator 35 09/14/18 21:00 116/66 09/14/18 21:00 111 21 124/78 100 Mechanical Ventilator 35 09/14/18 20:40 110 17 35 09/14/18 20:00 101 09/14/18 20:00 35 09/14/18 20:00 100.0 99 14 110/72 100 Mechanical Ventilator 35 09/14/18 20:00 Mechanical Ventilator Mechanical Ventilator 09/14/18 19:29 101 15 35 09/14/18 19:00 101 16 101/63 100 Mechanical Ventilator 35 09/14/18 18:00 103 14 98/54 100 Mechanical Ventilator 35 09/14/18 17:00 107 15 92/54 99 Mechanical Ventilator 35 09/14/18 16:38 124 26 35 09/14/18 16:00 99.8 124 15 123/62 100 Mechanical Ventilator 35 09/14/18 16:00 117 09/14/18 16:00 Mechanical Ventilator Mechanical Ventilator 09/14/18 16:00 35 09/14/18 15:31 100 24 35 Intake and Output 09/14/18 09/15/18 18:59 06:59 Intake Total 830.0 ml 632.5 ml Output Total 890 ml 505 ml Balance -60.0 ml 127.5 ml IV Total 830.0 ml 632.5 ml Output Urine Total 490 ml 505 ml Stool Total 200 ml Gastric Drainage Total 200 ml Laboratory Tests Test 09/15/18 04:50 09/15/18 08:10 White Blood Count 8.0 K/UL (4.8-10.8) Red Blood Count 2.61 M/UL (4.70-6.10) L Hemoglobin 7.8 G/DL (14.2-18.0) L Hematocrit 24.1 % (42.0-52.0) L Mean Corpuscular Volume 92 FL (80-99) Mean Corpuscular Hemoglobin 30.0 PG (27.0-31.0) Mean Corpuscular Hemoglobin Concent 32.5 G/DL (32.0-36.0) Red Cell Distribution Width 12.9 % (11.6-14.8) Platelet Count 316 K/UL (150-450) Mean Platelet Volume 5.7 FL (6.5-10.1) L Neutrophils (%) (Auto) % (45.0-75.0) Lymphocytes (%) (Auto) % (20.0-45.0) Monocytes (%) (Auto) % (1.0-10.0) Eosinophils (%) (Auto) % (0.0-3.0) Basophils (%) (Auto) % (0.0-2.0) Differential Total Cells Counted 100 Neutrophils % (Manual) 75 % (45-75) Lymphocytes % (Manual) 8 % (20-45) L Monocytes % (Manual) 1 % (1-10) Eosinophils % (Manual) 2 % (0-3) Basophils % (Manual) 0 % (0-2) Myelocytes % 2 % (0-0) H Band Neutrophils 12 % (0-8) H Platelet Estimate Adequate Platelet Morphology Normal Red Blood Cell Morphology Normal Prothrombin Time 12.0 SEC (9.30-11.50) H Prothromb Time International Ratio 1.1 (0.9-1.1) Activated Partial Thromboplast Time 36 SEC (23-33) H Sodium Level 142 MMOL/L (136-145) Potassium Level 3.4 MMOL/L (3.5-5.1) L Chloride Level 113 MMOL/L (98-107) H Carbon Dioxide Level 16 MMOL/L (21-32) L Anion Gap 13 mmol/L (5-15) Blood Urea Nitrogen 11 mg/dL (7-18) Creatinine 1.4 MG/DL (0.55-1.30) H Estimat Glomerular Filtration Rate 51.7 mL/min (>60) Glucose Level 139 MG/DL (74-106) H Calcium Level 7.0 MG/DL (8.5-10.1) L Phosphorus Level 2.8 MG/DL (2.5-4.9) Magnesium Level 1.5 MG/DL (1.8-2.4) L Total Bilirubin 0.6 MG/DL (0.2-1.0) Aspartate Amino Transf (AST/SGOT) 26 U/L (15-37) Alanine Aminotransferase (ALT/SGPT) 32 U/L (12-78) Alkaline Phosphatase 92 U/L (46-116) Total Protein 5.2 G/DL (6.4-8.2) L Albumin 1.3 G/DL (3.4-5.0) L Globulin 3.9 g/dL Albumin/Globulin Ratio 0.3 (1.0-2.7) L Arterial Blood pH 7.476 (7.350-7.450) Arterial Blood Partial Pressure CO2 21.9 mmHg (35.0-45.0) *L Arterial Blood Partial Pressure O2 163.9 mmHg (75.0-100.0) H Arterial Blood HCO3 15.8 mmol/L (22.0-26.0) *L Arterial Blood Oxygen Saturation 98.5 % (95-100) Arterial Blood Base Excess -6.6 (-2-2) L Harvey Test Positive Objective HEENT: Orally intubted. LUNGS: Coarse rhonchi. CARDIOVASCULAR: Regular S1 and S2. Tachycardic. ABDOMEN: Soft, G-tube . EXTREMITIES: No pitting edema. Jasbir Madsen MD Sep 15, 2018 15:12
--- NOTE | 2018-09-15 15:20 | Diagnostic Imaging Report ---
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 The left upper extremity was prepped with alcohol. All elements of maximal sterile barrier technique were followed including usage of a cap, mask, sterile gown, sterile gloves, hand hygiene and a large sterile sheet. Sonographic evaluation of the upper extremity was performed demonstrating a patent and compressible brachial vein. Access was obtained under real-time ultrasound guidance (with utilization of sterile gel and sterile probe cover) and digital image was saved and archived. An .018 wire was introduced. Needle exchanged for a 5 American peel-away sheath. Measurements were obtained. A 5 American dual-lumen Power PICC line catheter was cut to 35 cm and introduced over the wire. Peel-away sheath and wire were removed.Catheter was secured to the skin using 2-0 Prolene suture. Both ports aspirate and flush easily. Post procedure chest x-ray demonstrates good position of the PICC line catheter within the SVC. Impression: Successful placement of an upper extremity PICC line catheter
--- NOTE | 2018-09-15 16:22 | GI Progress Note ---
Assessment/Plan Problems: (1) G tube feedings ICD Codes: Z93.1 - Gastrostomy status SNOMED: 026021196, 987680502 (2) Protein-calorie malnutrition, severe ICD Codes: E43 - Unspecified severe protein-calorie malnutrition SNOMED: 404839623 (3) Anemia ICD Codes: D64.9 - Anemia, unspecified SNOMED: 896832113 (4) GI bleed ICD Codes: K92.2 - Gastrointestinal hemorrhage, unspecified SNOMED: 34577972 Status: unchanged Status Narrative Discussed with Dr. Horton. Assessment/Plan OB stool negative stop reglan given rising creatinine levels KUB taken, pending final read restart GTFs per RD to goal add additional OB stool prn transfusion ppi erythromycin GT for GI motility turn q2 fu labs The patient was seen and examined at bedside and all new and available data was reviewed in the patients chart. I agree with the above findings, impression and plan. (Patient seen earlier today. Signature stamp does not reflect patient encounter time.). - Arthur Horton MD Subjective Subjective limited Objective Last 24 Hour Vital Signs Date Time Temp Pulse Resp B/P (MAP) Pulse Ox O2 Delivery O2 Flow Rate FiO2 09/15/18 15:24 91 13 35 09/15/18 15:00 13 113/65 100 Mechanical Ventilator 35 09/15/18 14:00 14 105/59 100 Mechanical Ventilator 35 09/15/18 13:01 90 16 35 09/15/18 13:00 14 108/65 100 Mechanical Ventilator 35 09/15/18 12:00 Mechanical Ventilator Mechanical Ventilator 09/15/18 12:00 88 09/15/18 12:00 35 09/15/18 12:00 14 123/80 100 Mechanical Ventilator 35 09/15/18 11:00 100.6 16 111/65 100 Mechanical Ventilator 35 09/15/18 10:58 96 15 35 09/15/18 10:00 98 16 111/65 100 Mechanical Ventilator 35 09/15/18 09:21 100 21 35 09/15/18 09:00 101 18 116/61 100 Mechanical Ventilator 35 09/15/18 08:00 Mechanical Ventilator Mechanical Ventilator 09/15/18 08:00 99 09/15/18 08:00 35 09/15/18 08:00 100.1 99 18 121/69 100 Mechanical Ventilator 35 09/15/18 07:17 97 15 35 09/15/18 06:00 99 14 116/73 100 Mechanical Ventilator 35 09/15/18 05:07 98 13 35 09/15/18 05:00 97 14 124/73 100 Mechanical Ventilator 35 09/15/18 04:00 99.5 96 14 127/71 100 Mechanical Ventilator 35 09/15/18 04:00 Mechanical Ventilator Mechanical Ventilator 09/15/18 04:00 99 09/15/18 04:00 35 09/15/18 03:15 97 14 35 09/15/18 03:00 101 15 125/82 100 Mechanical Ventilator 35 09/15/18 02:00 107 19 105/66 100 Mechanical Ventilator 35 09/15/18 01:05 113 18 35 09/15/18 01:00 107 19 118/75 100 Mechanical Ventilator 35 09/15/18 00:00 35 09/15/18 00:00 102 09/15/18 00:00 99.9 100 15 115/68 100 Mechanical Ventilator 35 09/15/18 00:00 Mechanical Ventilator Mechanical Ventilator 09/14/18 23:02 102 19 35 09/14/18 23:00 101 15 109/61 100 Mechanical Ventilator 35 09/14/18 22:00 104 16 98/57 100 Mechanical Ventilator 35 09/14/18 21:00 116/66 09/14/18 21:00 111 21 124/78 100 Mechanical Ventilator 35 09/14/18 20:40 110 17 35 09/14/18 20:00 101 09/14/18 20:00 35 09/14/18 20:00 100.0 99 14 110/72 100 Mechanical Ventilator 35 09/14/18 20:00 Mechanical Ventilator Mechanical Ventilator 09/14/18 19:29 101 15 35 09/14/18 19:00 101 16 101/63 100 Mechanical Ventilator 35 09/14/18 18:00 103 14 98/54 100 Mechanical Ventilator 35 09/14/18 17:00 107 15 92/54 99 Mechanical Ventilator 35 09/14/18 16:38 124 26 35 Intake and Output 09/14/18 09/15/18 18:59 06:59 Intake Total 830.0 ml 632.5 ml Output Total 890 ml 505 ml Balance -60.0 ml 127.5 ml IV Total 830.0 ml 632.5 ml Output Urine Total 490 ml 505 ml Stool Total 200 ml Gastric Drainage Total 200 ml Laboratory Tests Test 09/15/18 04:50 09/15/18 08:10 White Blood Count 8.0 K/UL (4.8-10.8) Red Blood Count 2.61 M/UL (4.70-6.10) L Hemoglobin 7.8 G/DL (14.2-18.0) L Hematocrit 24.1 % (42.0-52.0) L Mean Corpuscular Volume 92 FL (80-99) Mean Corpuscular Hemoglobin 30.0 PG (27.0-31.0) Mean Corpuscular Hemoglobin Concent 32.5 G/DL (32.0-36.0) Red Cell Distribution Width 12.9 % (11.6-14.8) Platelet Count 316 K/UL (150-450) Mean Platelet Volume 5.7 FL (6.5-10.1) L Neutrophils (%) (Auto) % (45.0-75.0) Lymphocytes (%) (Auto) % (20.0-45.0) Monocytes (%) (Auto) % (1.0-10.0) Eosinophils (%) (Auto) % (0.0-3.0) Basophils (%) (Auto) % (0.0-2.0) Differential Total Cells Counted 100 Neutrophils % (Manual) 75 % (45-75) Lymphocytes % (Manual) 8 % (20-45) L Monocytes % (Manual) 1 % (1-10) Eosinophils % (Manual) 2 % (0-3) Basophils % (Manual) 0 % (0-2) Myelocytes % 2 % (0-0) H Band Neutrophils 12 % (0-8) H Platelet Estimate Adequate Platelet Morphology Normal Red Blood Cell Morphology Normal Prothrombin Time 12.0 SEC (9.30-11.50) H Prothromb Time International Ratio 1.1 (0.9-1.1) Activated Partial Thromboplast Time 36 SEC (23-33) H Sodium Level 142 MMOL/L (136-145) Potassium Level 3.4 MMOL/L (3.5-5.1) L Chloride Level 113 MMOL/L (98-107) H Carbon Dioxide Level 16 MMOL/L (21-32) L Anion Gap 13 mmol/L (5-15) Blood Urea Nitrogen 11 mg/dL (7-18) Creatinine 1.4 MG/DL (0.55-1.30) H Estimat Glomerular Filtration Rate 51.7 mL/min (>60) Glucose Level 139 MG/DL (74-106) H Calcium Level 7.0 MG/DL (8.5-10.1) L Phosphorus Level 2.8 MG/DL (2.5-4.9) Magnesium Level 1.5 MG/DL (1.8-2.4) L Total Bilirubin 0.6 MG/DL (0.2-1.0) Aspartate Amino Transf (AST/SGOT) 26 U/L (15-37) Alanine Aminotransferase (ALT/SGPT) 32 U/L (12-78) Alkaline Phosphatase 92 U/L (46-116) Total Protein 5.2 G/DL (6.4-8.2) L Albumin 1.3 G/DL (3.4-5.0) L Globulin 3.9 g/dL Albumin/Globulin Ratio 0.3 (1.0-2.7) L Arterial Blood pH 7.476 (7.350-7.450) Arterial Blood Partial Pressure CO2 21.9 mmHg (35.0-45.0) *L Arterial Blood Partial Pressure O2 163.9 mmHg (75.0-100.0) H Arterial Blood HCO3 15.8 mmol/L (22.0-26.0) *L Arterial Blood Oxygen Saturation 98.5 % (95-100) Arterial Blood Base Excess -6.6 (-2-2) L Harvey Test Positive Height (Feet): 5 Height (Inches): 6.00 Weight (Pounds): 131 General Appearance: no apparent distress, thin Cardiovascular: normal rate Respiratory/Chest: normal breath sounds, no respiratory distress Abdominal Exam: normal bowel sounds, non tender, soft Extremities: non-tender Becki Holt NP Sep 15, 2018 16:21
--- NOTE | 2018-09-15 17:15 | Progress Note ---
DATE: 09/15/2018 SUBJECTIVE: This is a 62-year-old patient with septic shock. He is confused and disorganized. He is still in the ICU. He is not responsive verbally, but his cognition has declined significantly below baseline with slight psychomotor retardation. Because of decline in cognition, his attending has requested me to follow this patient daily to try to cognition close to his baseline. MENTAL STATUS EXAMINATION: A 62-year-old male with flat affect. Mental status is being altered. Visual hallucinations and delusions. Insight and judgment is poor. DIAGNOSIS: Paranoid schizophrenia with acute exacerbation. PLAN: Start the patient's Risperdal 0.25 mg p.r.n. anxiety, Ativan 1 every 6 hours p.r.n. anxiety and agitation. Continue to be followed by Psychiatry. Behavior management provided. . Chart reviewed. Discussed with staff. Virgie Mcdermott M.D. DR: ESCOBAR JOB#: [id number] CC:
[2018-09-15] MEDS: Dyna-Hex 2% Top Sol 2oz TOPIC SCH (20:14)
[2018-09-15] MEDS: Norepinephrine Bitartrate 8 MG in D5W 500ml 550 ML IV SCH (21:00)
[2018-09-16] VITALS (24 sets, daily range): BP systolic 102–135; BP diastolic 45–89
[2018-09-16] MEDS: NovoLOG Insulin Flexpen SUBQ SCH ×7 (01:00→20:30)
[2018-09-16] MEDS: Piperacillin/Tazobactam 3.375 GM in D5W 110 ML IVPB SCH ×3 (05:31→21:47)
[2018-09-16 05:46] LABS: HEMATOCRIT 33.5 % (42.0-52.0); HEMOGLOBIN 11.2 G/DL (14.2-18.0); MEAN CORPUSCULAR VOLUME 89 FL (80-99); PLATELET COUNT 359 K/UL (150-450); RED BLOOD COUNT 3.78 M/UL (4.70-6.10); RED CELL DISTRIBUTION WIDTH 13.3 % (11.6-14.8); WHITE BLOOD COUNT 9.4 K/UL (4.8-10.8)
[2018-09-16] MEDS: Erythromycin Ethylsuccinate 200mg/5ml Susp GT SCH ×5 (06:00→23:48)
[2018-09-16 06:24] LABS: ALANINE AMINOTRANSFERASE 25 U/L (12-78); ALBUMIN 1.3 G/DL (3.4-5.0); ALBUMIN/GLOBULIN RATIO 0.3 (1.0-2.7); ALKALINE PHOSPHATASE 87 U/L (46-116); ANION GAP 12 mmol/L (5-15); ASPARTATE AMINO TRANSFERASE 23 U/L (15-37); BILIRUBIN,TOTAL 0.8 MG/DL (0.2-1.0); BLOOD UREA NITROGEN 9 mg/dL (7-18); CALCIUM 7.3 MG/DL (8.5-10.1); CARBON DIOXIDE 15 MMOL/L (21-32); CHLORIDE 112 MMOL/L (98-107); CREATININE 1.3 MG/DL (0.55-1.30); PHOSPHORUS 2.7 MG/DL (2.5-4.9); POTASSIUM 3.6 MMOL/L (3.5-5.1); SODIUM 139 MMOL/L (136-145)
[2018-09-16] MEDS: Pantoprazole Inj IVP SCH ×2 (08:44→20:28)
[2018-09-16] MEDS: Heparin 5000 units/ml inj SUBQ SCH ×2 (08:45→20:30)
--- NOTE | 2018-09-16 10:15 | Pulmonolgy Critical Care Note ---
Critical Care - Asmt/Plan Problems: (1) Septic shock (2) ATN (acute tubular necrosis) (3) Hyperkalemia (4) Metabolic acidosis Respiratory: monitor respiratory rate, adjust FIO2, CXR Cardiac: continue pressors, continue to monitor HR/BP Renal: keep IV fluid Infectious Disease: continue antibiotics Gastrointestinal: hold feedings Endocrine: check TSH Hematologic: monitor H/H, transfuse if hgb<8.5 Neurologic: PRN Morphine, keep patient comfortable Prophylaxis: Heparin Notes Reviewed: registered clinical dietitian, cardio, renal Discussed with: nurses, consultants, continuous pillowcase cutterfacilities manager - Objective Last 24 Hour Vital Signs Date Time Temp Pulse Resp B/P (MAP) Pulse Ox O2 Delivery O2 Flow Rate FiO2 09/16/18 09:00 79 12 30 09/16/18 08:00 Mechanical Ventilator Mechanical Ventilator 09/16/18 07:33 84 12 35 09/16/18 07:00 69 13 113/45 100 Mechanical Ventilator 35 09/16/18 06:00 69 12 124/79 100 Mechanical Ventilator 35 09/16/18 05:21 77 12 35 09/16/18 05:00 77 12 123/79 100 Mechanical Ventilator 35 09/16/18 04:00 84 09/16/18 04:00 35 09/16/18 04:00 99.5 79 27 135/76 100 Mechanical Ventilator 35 09/16/18 04:00 Mechanical Ventilator Mechanical Ventilator 09/16/18 03:30 76 13 35 09/16/18 03:00 76 27 123/74 100 Mechanical Ventilator 35 09/16/18 02:00 67 27 130/76 100 Mechanical Ventilator 35 09/16/18 01:14 83 23 35 09/16/18 01:00 86 27 130/80 100 Mechanical Ventilator 35 09/16/18 00:00 83 09/16/18 00:00 99.5 84 10 131/69 100 Mechanical Ventilator 35 09/16/18 00:00 35 09/16/18 00:00 Mechanical Ventilator Mechanical Ventilator 09/15/18 23:05 82 13 35 09/15/18 23:00 99.5 85 10 122/76 100 Mechanical Ventilator 35 09/15/18 22:00 86 10 127/75 100 Mechanical Ventilator 35 09/15/18 21:00 117/74 09/15/18 21:00 100.3 86 10 128/78 100 Mechanical Ventilator 35 09/15/18 20:48 84 14 35 09/15/18 20:00 99.7 85 15 120/69 100 Mechanical Ventilator 35 09/15/18 20:00 Mechanical Ventilator Mechanical Ventilator 09/15/18 20:00 88 09/15/18 20:00 35 09/15/18 19:30 85 14 35 09/15/18 19:00 98 10 101/61 100 Mechanical Ventilator 35 09/15/18 18:30 99.7 09/15/18 18:00 14 114/64 100 Mechanical Ventilator 35 09/15/18 17:12 97 15 35 09/15/18 17:00 99.4 19 115/59 100 Mechanical Ventilator 35 09/15/18 16:00 98 09/15/18 16:00 35 09/15/18 16:00 Mechanical Ventilator Mechanical Ventilator 09/15/18 16:00 20 98/51 100 Mechanical Ventilator 35 09/15/18 15:24 91 13 35 09/15/18 15:00 13 113/65 100 Mechanical Ventilator 35 09/15/18 14:00 99.9 14 105/59 100 Mechanical Ventilator 35 09/15/18 13:01 90 16 35 09/15/18 13:00 14 108/65 100 Mechanical Ventilator 35 09/15/18 12:00 Mechanical Ventilator Mechanical Ventilator 09/15/18 12:00 88 09/15/18 12:00 35 09/15/18 12:00 14 123/80 100 Mechanical Ventilator 35 09/15/18 11:00 100.6 16 111/65 100 Mechanical Ventilator 35 09/15/18 10:58 96 15 35 Status: awake Condition: critical HEENT: atraumatic Lungs: clear Heart: HR/BP stable Abdomen: soft, non-tender Extremities: no C/C/E Decubiti: location, stage Accucheck: 85 Critical Care - Subjective ROS Limited/Unobtainable: Yes Condition: critical EKG Rhythm: Sinus Rhythm FI02: 30 Vent Support Breath Rate: 12 Vent Support Mode: AC Vent Tidal Volume: 600 Sputum Amount: Small PEEP: 0.0 PIP: 17 Tube Feeding Amount: 30 I&O: Intake and Output 09/15/18 09/16/18 19:00 07:00 Intake Total 242.5 ml 1297.5 ml Output Total 750 ml 505 ml Balance -507.5 ml 792.5 ml IV Total 242.5 ml 737.5 ml Blood Product 500 ml Other 60 ml Output Urine Total 470 ml 505 ml Stool Total 280 ml CXR: no change, ET-Tube: 7.5 ET Position: 23 Labs: Laboratory Tests Test 09/15/18 22:45 09/16/18 04:35 09/16/18 08:05 Vancomycin Level Trough 18.1 ug/mL (5.0-12.0) H White Blood Count 9.4 K/UL (4.8-10.8) Red Blood Count 3.78 M/UL (4.70-6.10) L Hemoglobin 11.2 G/DL (14.2-18.0) #L Hematocrit 33.5 % (42.0-52.0) #L Mean Corpuscular Volume 89 FL (80-99) Mean Corpuscular Hemoglobin 29.6 PG (27.0-31.0) Mean Corpuscular Hemoglobin Concent 33.4 G/DL (32.0-36.0) Red Cell Distribution Width 13.3 % (11.6-14.8) Platelet Count 359 K/UL (150-450) Mean Platelet Volume 5.5 FL (6.5-10.1) L Neutrophils (%) (Auto) % (45.0-75.0) Lymphocytes (%) (Auto) % (20.0-45.0) Monocytes (%) (Auto) % (1.0-10.0) Eosinophils (%) (Auto) % (0.0-3.0) Basophils (%) (Auto) % (0.0-2.0) Differential Total Cells Counted 100 Neutrophils % (Manual) 87 % (45-75) H Lymphocytes % (Manual) 5 % (20-45) L Monocytes % (Manual) 3 % (1-10) Eosinophils % (Manual) 0 % (0-3) Basophils % (Manual) 1 % (0-2) Band Neutrophils 4 % (0-8) Platelet Estimate Adequate Platelet Morphology Normal Red Blood Cell Morphology Normal Sodium Level 139 MMOL/L (136-145) Potassium Level 3.6 MMOL/L (3.5-5.1) Chloride Level 112 MMOL/L (98-107) H Carbon Dioxide Level 15 MMOL/L (21-32) L Anion Gap 12 mmol/L (5-15) Blood Urea Nitrogen 9 mg/dL (7-18) Creatinine 1.3 MG/DL (0.55-1.30) Estimat Glomerular Filtration Rate 56.3 mL/min (>60) Glucose Level 95 MG/DL (74-106) Calcium Level 7.3 MG/DL (8.5-10.1) L Phosphorus Level 2.7 MG/DL (2.5-4.9) Magnesium Level 2.0 MG/DL (1.8-2.4) Total Bilirubin 0.8 MG/DL (0.2-1.0) Aspartate Amino Transf (AST/SGOT) 23 U/L (15-37) Alanine Aminotransferase (ALT/SGPT) 25 U/L (12-78) Alkaline Phosphatase 87 U/L (46-116) Total Protein 5.3 G/DL (6.4-8.2) L Albumin 1.3 G/DL (3.4-5.0) L Globulin 4.0 g/dL Albumin/Globulin Ratio 0.3 (1.0-2.7) L Arterial Blood pH 7.393 (7.350-7.450) Arterial Blood Partial Pressure CO2 23.8 mmHg (35.0-45.0) *L Arterial Blood Partial Pressure O2 133.5 mmHg (75.0-100.0) H Arterial Blood HCO3 14.2 mmol/L (22.0-26.0) *L Arterial Blood Oxygen Saturation 98.3 % (95-100) Arterial Blood Base Excess -9.0 (-2-2) L Harvey Test Positive Po Li MD Sep 16, 2018 10:15
--- NOTE | 2018-09-16 10:58 | Nephrology Progress Note ---
Assessment/Plan Problem List: (1) ATN (acute tubular necrosis) (2) Septic shock (3) Lactic acid acidosis (4) Metabolic acidosis (5) Hyperkalemia (6) G tube feedings (7) Acute respiratory failure Assessment over all improved: cr wnl presented with Shock , likely septic Acute renal failure resolved Acute metabolic acidosis resolved Hyperkalemia PEG Recent Pneumonia Plan plan: hold feeding due to high residual trial reglan midodrine pulmonary support Fluid challenge as needed Silva K and Phos supplement as needed antibiotics monitor renal parameters and ABG Subjective ROS Limited/Unobtainable: Yes Objective Objective Last 24 Hour Vital Signs Date Time Temp Pulse Resp B/P (MAP) Pulse Ox O2 Delivery O2 Flow Rate FiO2 09/16/18 09:00 79 12 30 09/16/18 09:00 30 09/16/18 08:00 Mechanical Ventilator Mechanical Ventilator 09/16/18 08:00 35 09/16/18 07:33 84 12 35 09/16/18 07:00 69 13 113/45 100 Mechanical Ventilator 35 09/16/18 06:00 69 12 124/79 100 Mechanical Ventilator 35 09/16/18 05:21 77 12 35 09/16/18 05:00 77 12 123/79 100 Mechanical Ventilator 35 09/16/18 04:00 84 09/16/18 04:00 35 09/16/18 04:00 99.5 79 27 135/76 100 Mechanical Ventilator 35 09/16/18 04:00 Mechanical Ventilator Mechanical Ventilator 09/16/18 03:30 76 13 35 09/16/18 03:00 76 27 123/74 100 Mechanical Ventilator 35 09/16/18 02:00 67 27 130/76 100 Mechanical Ventilator 35 09/16/18 01:14 83 23 35 09/16/18 01:00 86 27 130/80 100 Mechanical Ventilator 35 09/16/18 00:00 83 09/16/18 00:00 99.5 84 10 131/69 100 Mechanical Ventilator 35 09/16/18 00:00 35 09/16/18 00:00 Mechanical Ventilator Mechanical Ventilator 09/15/18 23:05 82 13 35 09/15/18 23:00 99.5 85 10 122/76 100 Mechanical Ventilator 35 09/15/18 22:00 86 10 127/75 100 Mechanical Ventilator 35 09/15/18 21:00 117/74 09/15/18 21:00 100.3 86 10 128/78 100 Mechanical Ventilator 35 09/15/18 20:48 84 14 35 09/15/18 20:00 99.7 85 15 120/69 100 Mechanical Ventilator 35 09/15/18 20:00 Mechanical Ventilator Mechanical Ventilator 09/15/18 20:00 88 09/15/18 20:00 35 09/15/18 19:30 85 14 35 09/15/18 19:00 98 10 101/61 100 Mechanical Ventilator 35 09/15/18 18:30 99.7 09/15/18 18:00 14 114/64 100 Mechanical Ventilator 35 09/15/18 17:12 97 15 35 09/15/18 17:00 99.4 19 115/59 100 Mechanical Ventilator 35 09/15/18 16:00 98 09/15/18 16:00 35 09/15/18 16:00 Mechanical Ventilator Mechanical Ventilator 09/15/18 16:00 20 98/51 100 Mechanical Ventilator 35 09/15/18 15:24 91 13 35 09/15/18 15:00 13 113/65 100 Mechanical Ventilator 35 09/15/18 14:00 99.9 14 105/59 100 Mechanical Ventilator 35 09/15/18 13:01 90 16 35 09/15/18 13:00 14 108/65 100 Mechanical Ventilator 35 09/15/18 12:00 Mechanical Ventilator Mechanical Ventilator 09/15/18 12:00 88 09/15/18 12:00 35 09/15/18 12:00 14 123/80 100 Mechanical Ventilator 35 09/15/18 11:00 100.6 16 111/65 100 Mechanical Ventilator 35 09/15/18 10:58 96 15 35 Intake and Output 09/15/18 09/16/18 19:00 07:00 Intake Total 242.5 ml 1297.5 ml Output Total 750 ml 505 ml Balance -507.5 ml 792.5 ml IV Total 242.5 ml 737.5 ml Blood Product 500 ml Other 60 ml Output Urine Total 470 ml 505 ml Stool Total 280 ml Laboratory Tests 09/15/18 22:45: Vancomycin Level Trough 18.1H 09/16/18 04:35: White Blood Count 9.4, Red Blood Count 3.78L, Hemoglobin 11.2#L, Hematocrit 33.5 #L, Mean Corpuscular Volume 89, Mean Corpuscular Hemoglobin 29.6, Mean Corpuscular Hemoglobin Concent 33.4, Red Cell Distribution Width 13.3, Platelet Count 359, Mean Platelet Volume 5.5L, Neutrophils (%) (Auto) , Lymphocytes (%) ( Auto) , Monocytes (%) (Auto) , Eosinophils (%) (Auto) , Basophils (%) (Auto) , Differential Total Cells Counted 100, Neutrophils % (Manual) 87H, Lymphocytes % (Manual) 5L, Monocytes % (Manual) 3, Eosinophils % (Manual) 0, Basophils % ( Manual) 1, Band Neutrophils 4, Platelet Estimate Adequate, Platelet Morphology Normal, Red Blood Cell Morphology Normal, Sodium Level 139, Potassium Level 3.6 , Chloride Level 112H, Carbon Dioxide Level 15L, Anion Gap 12, Blood Urea Nitrogen 9, Creatinine 1.3, Estimat Glomerular Filtration Rate 56.3, Glucose Level 95, Calcium Level 7.3L, Phosphorus Level 2.7, Magnesium Level 2.0, Total Bilirubin 0.8, Aspartate Amino Transf (AST/SGOT) 23, Alanine Aminotransferase ( ALT/SGPT) 25, Alkaline Phosphatase 87, Total Protein 5.3L, Albumin 1.3L, Globulin 4.0, Albumin/Globulin Ratio 0.3L 09/16/18 08:05: Arterial Blood pH 7.393, Arterial Blood Partial Pressure CO2 23.8*L, Arterial Blood Partial Pressure O2 133.5H, Arterial Blood HCO3 14.2*L, Arterial Blood Oxygen Saturation 98.3, Arterial Blood Base Excess -9.0L, Harvey Test Positive Height (Feet): 5 Height (Inches): 6.00 Weight (Pounds): 130 EENT: other - Vented Cardiovascular: normal rate Respiratory/Chest: decreased breath sounds Abdomen: distended Josesito Smalls MD Sep 16, 2018 10:58
[2018-09-16] MEDS: Vancomycin 500mg/D5W 110ml IVPB SCH ×4 (11:17→22:32)
[2018-09-16] MEDS ORDERED: Albuterol/Ipratropium 3ml neb HHN PRN (11:30)
--- NOTE | 2018-09-16 13:23 | Diagnostic Imaging Report ---
Indication: Dyspnea Comparison: 09/15/2018 A single view chest radiograph was obtained. Findings: Left PICC line was placed and is in good position with the tip projected over the SVC. There is no change otherwise compared to the prior day. IMPRESSION: PICC line in good position.
--- NOTE | 2018-09-16 13:31 | Infectious Diseases Prog Note ---
Assessment/Plan Assessment/Plan 62 yo male with PMHx of Quadriplegia with G-tube, HTN, DM and Schizophenia [place] [facility] [facility]. Sepsis - Probably PNA but will f/u other cultures No intubated on vent 45% CXR 09/07/18 - possible left sided consolidation Inf neg 09/07/18 BCx 2/2 sets diphteroids, 1/2 setse S. epi (contaminants); 2/ Bcx NTD 09/07/18 SCx - NF 09/07/18 UCx - Neg 09/09 Cdiff neg No leukocytosis Febrile to 103 on admit; improving HTN DM Schizophenia Quadriplegia. G- tube dependent Plan - Continue Ceftriaxone #03/20 - Continue Vancmocyin #05/20 - 09/09/18 Ertapenem #3 pending Cx - Repeat sCx - Monitor CBC and temps We will continue to follow the patient during this hospitalization. Subjective Allergies: Coded Allergies: No Known Allergies (Unverified , 08/14/18) Subjective Low grade fevers No leukocytosis On vent Objective Vital Signs Last 24 Hour Vital Signs Date Time Temp Pulse Resp B/P (MAP) Pulse Ox O2 Delivery O2 Flow Rate FiO2 09/16/18 12:00 99.6 84 13 117/68 100 Mechanical Ventilator 35 09/16/18 12:00 Mechanical Ventilator Mechanical Ventilator 09/16/18 11:03 90 15 30 09/16/18 11:00 81 13 116/69 100 Mechanical Ventilator 35 09/16/18 10:00 81 10 126/78 100 Mechanical Ventilator 35 09/16/18 09:00 79 12 30 09/16/18 09:00 30 09/16/18 09:00 82 12 126/69 100 Mechanical Ventilator 35 09/16/18 08:00 Mechanical Ventilator Mechanical Ventilator 09/16/18 08:00 88 09/16/18 08:00 35 09/16/18 08:00 99.3 82 13 119/71 100 Mechanical Ventilator 35 09/16/18 07:33 84 12 35 09/16/18 07:00 69 13 113/45 100 Mechanical Ventilator 35 09/16/18 06:00 69 12 124/79 100 Mechanical Ventilator 35 09/16/18 05:21 77 12 35 09/16/18 05:00 77 12 123/79 100 Mechanical Ventilator 35 09/16/18 04:00 84 09/16/18 04:00 35 09/16/18 04:00 99.5 79 27 135/76 100 Mechanical Ventilator 35 09/16/18 04:00 Mechanical Ventilator Mechanical Ventilator 09/16/18 03:30 76 13 35 09/16/18 03:00 76 27 123/74 100 Mechanical Ventilator 35 09/16/18 02:00 67 27 130/76 100 Mechanical Ventilator 35 09/16/18 01:14 83 23 35 09/16/18 01:00 86 27 130/80 100 Mechanical Ventilator 35 09/16/18 00:00 83 09/16/18 00:00 99.5 84 10 131/69 100 Mechanical Ventilator 35 09/16/18 00:00 35 09/16/18 00:00 Mechanical Ventilator Mechanical Ventilator 09/15/18 23:05 82 13 35 09/15/18 23:00 99.5 85 10 122/76 100 Mechanical Ventilator 35 09/15/18 22:00 86 10 127/75 100 Mechanical Ventilator 35 09/15/18 21:00 117/74 09/15/18 21:00 100.3 86 10 128/78 100 Mechanical Ventilator 35 09/15/18 20:48 84 14 35 09/15/18 20:00 99.7 85 15 120/69 100 Mechanical Ventilator 35 09/15/18 20:00 Mechanical Ventilator Mechanical Ventilator 09/15/18 20:00 88 09/15/18 20:00 35 09/15/18 19:30 85 14 35 09/15/18 19:00 98 10 101/61 100 Mechanical Ventilator 35 09/15/18 18:30 99.7 09/15/18 18:00 14 114/64 100 Mechanical Ventilator 35 09/15/18 17:12 97 15 35 09/15/18 17:00 99.4 19 115/59 100 Mechanical Ventilator 35 09/15/18 16:00 98 09/15/18 16:00 35 09/15/18 16:00 Mechanical Ventilator Mechanical Ventilator 09/15/18 16:00 20 98/51 100 Mechanical Ventilator 35 09/15/18 15:24 91 13 35 09/15/18 15:00 13 113/65 100 Mechanical Ventilator 35 09/15/18 14:00 99.9 14 105/59 100 Mechanical Ventilator 35 Height (Feet): 5 Height (Inches): 6.00 Weight (Pounds): 130 Objective Gen: NAD, On vent satting well HEENT: NCAT, MMM, EOMI LUNGS: CTAB, No W/C, CARDS: RRR, S1, S2, No M/R/G, ABD: Soft, NT, distended, + BS,G tube (No E/P) NEURO: Intubated, not following Laboratory Tests Test 09/15/18 22:45 09/16/18 04:35 09/16/18 08:05 Vancomycin Level Trough 18.1 ug/mL (5.0-12.0) H White Blood Count 9.4 K/UL (4.8-10.8) Red Blood Count 3.78 M/UL (4.70-6.10) L Hemoglobin 11.2 G/DL (14.2-18.0) #L Hematocrit 33.5 % (42.0-52.0) #L Mean Corpuscular Volume 89 FL (80-99) Mean Corpuscular Hemoglobin 29.6 PG (27.0-31.0) Mean Corpuscular Hemoglobin Concent 33.4 G/DL (32.0-36.0) Red Cell Distribution Width 13.3 % (11.6-14.8) Platelet Count 359 K/UL (150-450) Mean Platelet Volume 5.5 FL (6.5-10.1) L Neutrophils (%) (Auto) % (45.0-75.0) Lymphocytes (%) (Auto) % (20.0-45.0) Monocytes (%) (Auto) % (1.0-10.0) Eosinophils (%) (Auto) % (0.0-3.0) Basophils (%) (Auto) % (0.0-2.0) Differential Total Cells Counted 100 Neutrophils % (Manual) 87 % (45-75) H Lymphocytes % (Manual) 5 % (20-45) L Monocytes % (Manual) 3 % (1-10) Eosinophils % (Manual) 0 % (0-3) Basophils % (Manual) 1 % (0-2) Band Neutrophils 4 % (0-8) Platelet Estimate Adequate Platelet Morphology Normal Red Blood Cell Morphology Normal Sodium Level 139 MMOL/L (136-145) Potassium Level 3.6 MMOL/L (3.5-5.1) Chloride Level 112 MMOL/L (98-107) H Carbon Dioxide Level 15 MMOL/L (21-32) L Anion Gap 12 mmol/L (5-15) Blood Urea Nitrogen 9 mg/dL (7-18) Creatinine 1.3 MG/DL (0.55-1.30) Estimat Glomerular Filtration Rate 56.3 mL/min (>60) Glucose Level 95 MG/DL (74-106) Calcium Level 7.3 MG/DL (8.5-10.1) L Phosphorus Level 2.7 MG/DL (2.5-4.9) Magnesium Level 2.0 MG/DL (1.8-2.4) Total Bilirubin 0.8 MG/DL (0.2-1.0) Aspartate Amino Transf (AST/SGOT) 23 U/L (15-37) Alanine Aminotransferase (ALT/SGPT) 25 U/L (12-78) Alkaline Phosphatase 87 U/L (46-116) Total Protein 5.3 G/DL (6.4-8.2) L Albumin 1.3 G/DL (3.4-5.0) L Globulin 4.0 g/dL Albumin/Globulin Ratio 0.3 (1.0-2.7) L Arterial Blood pH 7.393 (7.350-7.450) Arterial Blood Partial Pressure CO2 23.8 mmHg (35.0-45.0) *L Arterial Blood Partial Pressure O2 133.5 mmHg (75.0-100.0) H Arterial Blood HCO3 14.2 mmol/L (22.0-26.0) *L Arterial Blood Oxygen Saturation 98.3 % (95-100) Arterial Blood Base Excess -9.0 (-2-2) L Harvey Test Positive Current Medications Medications (Trade) Dose Ordered Sig/Julito Route PRN Reason Start Time Stop Time Status Last Admin Dose Admin Acetaminophen (Tylenol) 650 mg Q4H PRN NG Mild Pain/Temp > 100.5 09/08/18 13:30 10/08/18 13:29 09/15/18 18:00 Albuterol/ Ipratropium (Albuterol/ Ipratropium) 3 ml Q4H PRN HHN sob 09/16/18 11:30 09/22/18 11:29 Chlorhexidine Gluconate (Camila-Hex 2%) 1 applic DAILY@1999 TOPIC 09/15/18 20:00 10/15/18 19:59 09/15/18 20:14 Dextrose (Dextrose 50%) 25 ml Q30M PRN IV Hypoglycemia 09/08/18 13:30 10/08/18 13:29 Dextrose (Dextrose 50%) 50 ml Q30M PRN IV Hypoglycemia 09/08/18 13:30 10/08/18 13:29 Dextrose/Sodium Chloride 1,000 ml @ 50 mls/hr Q20H IV 09/13/18 13:45 10/13/18 13:44 09/15/18 10:51 Erythromycin (Jossue-Ped) 200 mg Q6HR GT 09/14/18 18:00 09/21/18 17:59 09/16/18 11:25 Heparin Sodium (Porcine) (Heparin 5000 units/ml) 5,000 units EVERY 12 HOURS SUBQ 09/07/18 21:00 10/07/18 20:59 09/15/18 09:55 Insulin Aspart (NovoLOG) EVERY 4 HOURS SUBQ 09/08/18 14:30 10/08/18 14:29 09/16/18 12:58 Loperamide HCl (Imodium) 4 mg TIDPRN PRN ORAL Diarrhea 09/10/18 13:00 10/10/18 12:59 09/11/18 03:51 Lorazepam (Ativan) 1 mg Q6H PRN ORAL For Anxiety 09/16/18 12:00 09/22/18 11:59 Midodrine (Pro-Amatine) 2.5 mg THREE TIMES A DAY GT 09/13/18 18:00 10/13/18 17:59 09/16/18 12:56 Norepinephrine Bitartrate 8 mg/ Dextrose 558 ml @ 0 mls/hr Q24H IV 09/08/18 21:00 10/08/18 20:59 09/10/18 18:37 Ondansetron HCl (Zofran) 4 mg Q6H PRN IVP Nausea & Vomiting 09/07/18 15:15 10/07/18 15:14 Pantoprazole (Protonix) 40 mg Q12HR IVP 09/07/18 21:00 10/08/18 08:59 09/16/18 08:44 Piperacillin Sod/ Tazobactam Sod 3.375 gm/Dextrose 110 ml @ 27.5 mls/hr Q8HR IVPB 09/09/18 14:00 09/19/18 13:59 09/16/18 05:31 Polyethylene Glycol (Miralax) 17 gm DAILYPRN PRN ORAL Constipation 09/07/18 15:15 10/07/18 15:14 Risperidone (RisperDAL) 0.25 mg QHS ORAL 09/10/18 21:00 10/10/18 20:59 09/15/18 21:03 Sodium Chloride 500 ml @ 999 mls/hr Q31M PRN IV SBP<90mmHg 09/08/18 11:00 10/08/18 10:59 09/08/18 12:34 Vancomycin HCl (Vanco rx to dose) 1 ea DAILY PRN MISC PER PHARMACY 09/07/18 16:30 10/07/18 16:29 Vancomycin HCl 500 mg/Dextrose 110 ml @ 110 mls/hr Q12H IVPB 09/14/18 11:00 09/19/18 10:59 09/16/18 11:17 Asim De Leon MD Sep 16, 2018 13:31
--- NOTE | 2018-09-16 14:35 | Cardiac Electrophysiology PN ---
Assessment/Plan Assessment/Plan 1. S/P Septic shock withLactic acidosis. On iv fluids and Abx and off pressors 2. Sinus tachycardia with heart rate in 140s due to the patient's septic shock and dehydration. No evidence of atrial fibrillation. EF of 75%. 3. Troponin elevation due to renal failure. EF 75%. 4. Respiratory failure on the vent 5. Rhabdomyolysis with CPK in thousands. May be contributing to renal failure. 6. Acute renal failure and severe hyperkalemia. Resolved FU by Dr. Smalls 7. Dysphagia, status post PEG placement. 8. GI bleed. EGD and colonoscopy on Friday by Dr Clifford ANGULO RN Subjective Subjective On vent unresponsive off pressors. GT still draining blood tinged material Objective Last 24 Hour Vital Signs Date Time Temp Pulse Resp B/P (MAP) Pulse Ox O2 Delivery O2 Flow Rate FiO2 09/16/18 12:33 85 12 30 09/16/18 12:00 99.6 84 13 117/68 100 Mechanical Ventilator 35 09/16/18 12:00 Mechanical Ventilator Mechanical Ventilator 09/16/18 11:03 90 15 30 09/16/18 11:00 81 13 116/69 100 Mechanical Ventilator 35 09/16/18 10:00 81 10 126/78 100 Mechanical Ventilator 35 09/16/18 09:00 79 12 30 09/16/18 09:00 30 09/16/18 09:00 82 12 126/69 100 Mechanical Ventilator 35 09/16/18 08:00 Mechanical Ventilator Mechanical Ventilator 09/16/18 08:00 88 09/16/18 08:00 35 09/16/18 08:00 99.3 82 13 119/71 100 Mechanical Ventilator 35 09/16/18 07:33 84 12 35 09/16/18 07:00 69 13 113/45 100 Mechanical Ventilator 35 09/16/18 06:00 69 12 124/79 100 Mechanical Ventilator 35 09/16/18 05:21 77 12 35 09/16/18 05:00 77 12 123/79 100 Mechanical Ventilator 35 09/16/18 04:00 84 09/16/18 04:00 35 09/16/18 04:00 99.5 79 27 135/76 100 Mechanical Ventilator 35 09/16/18 04:00 Mechanical Ventilator Mechanical Ventilator 09/16/18 03:30 76 13 35 09/16/18 03:00 76 27 123/74 100 Mechanical Ventilator 35 09/16/18 02:00 67 27 130/76 100 Mechanical Ventilator 35 09/16/18 01:14 83 23 35 09/16/18 01:00 86 27 130/80 100 Mechanical Ventilator 35 09/16/18 00:00 83 09/16/18 00:00 99.5 84 10 131/69 100 Mechanical Ventilator 35 09/16/18 00:00 35 09/16/18 00:00 Mechanical Ventilator Mechanical Ventilator 09/15/18 23:05 82 13 35 09/15/18 23:00 99.5 85 10 122/76 100 Mechanical Ventilator 35 09/15/18 22:00 86 10 127/75 100 Mechanical Ventilator 35 09/15/18 21:00 117/74 09/15/18 21:00 100.3 86 10 128/78 100 Mechanical Ventilator 35 09/15/18 20:48 84 14 35 09/15/18 20:00 99.7 85 15 120/69 100 Mechanical Ventilator 35 09/15/18 20:00 Mechanical Ventilator Mechanical Ventilator 09/15/18 20:00 88 09/15/18 20:00 35 09/15/18 19:30 85 14 35 09/15/18 19:00 98 10 101/61 100 Mechanical Ventilator 35 09/15/18 18:30 99.7 09/15/18 18:00 14 114/64 100 Mechanical Ventilator 35 09/15/18 17:12 97 15 35 09/15/18 17:00 99.4 19 115/59 100 Mechanical Ventilator 35 09/15/18 16:00 98 09/15/18 16:00 35 09/15/18 16:00 Mechanical Ventilator Mechanical Ventilator 09/15/18 16:00 20 98/51 100 Mechanical Ventilator 35 09/15/18 15:24 91 13 35 09/15/18 15:00 13 113/65 100 Mechanical Ventilator 35 Intake and Output 09/15/18 09/16/18 19:00 07:00 Intake Total 242.5 ml 1297.5 ml Output Total 750 ml 505 ml Balance -507.5 ml 792.5 ml IV Total 242.5 ml 737.5 ml Blood Product 500 ml Other 60 ml Output Urine Total 470 ml 505 ml Stool Total 280 ml Laboratory Tests Test 09/15/18 22:45 09/16/18 04:35 09/16/18 08:05 Vancomycin Level Trough 18.1 ug/mL (5.0-12.0) H White Blood Count 9.4 K/UL (4.8-10.8) Red Blood Count 3.78 M/UL (4.70-6.10) L Hemoglobin 11.2 G/DL (14.2-18.0) #L Hematocrit 33.5 % (42.0-52.0) #L Mean Corpuscular Volume 89 FL (80-99) Mean Corpuscular Hemoglobin 29.6 PG (27.0-31.0) Mean Corpuscular Hemoglobin Concent 33.4 G/DL (32.0-36.0) Red Cell Distribution Width 13.3 % (11.6-14.8) Platelet Count 359 K/UL (150-450) Mean Platelet Volume 5.5 FL (6.5-10.1) L Neutrophils (%) (Auto) % (45.0-75.0) Lymphocytes (%) (Auto) % (20.0-45.0) Monocytes (%) (Auto) % (1.0-10.0) Eosinophils (%) (Auto) % (0.0-3.0) Basophils (%) (Auto) % (0.0-2.0) Differential Total Cells Counted 100 Neutrophils % (Manual) 87 % (45-75) H Lymphocytes % (Manual) 5 % (20-45) L Monocytes % (Manual) 3 % (1-10) Eosinophils % (Manual) 0 % (0-3) Basophils % (Manual) 1 % (0-2) Band Neutrophils 4 % (0-8) Platelet Estimate Adequate Platelet Morphology Normal Red Blood Cell Morphology Normal Sodium Level 139 MMOL/L (136-145) Potassium Level 3.6 MMOL/L (3.5-5.1) Chloride Level 112 MMOL/L (98-107) H Carbon Dioxide Level 15 MMOL/L (21-32) L Anion Gap 12 mmol/L (5-15) Blood Urea Nitrogen 9 mg/dL (7-18) Creatinine 1.3 MG/DL (0.55-1.30) Estimat Glomerular Filtration Rate 56.3 mL/min (>60) Glucose Level 95 MG/DL (74-106) Calcium Level 7.3 MG/DL (8.5-10.1) L Phosphorus Level 2.7 MG/DL (2.5-4.9) Magnesium Level 2.0 MG/DL (1.8-2.4) Total Bilirubin 0.8 MG/DL (0.2-1.0) Aspartate Amino Transf (AST/SGOT) 23 U/L (15-37) Alanine Aminotransferase (ALT/SGPT) 25 U/L (12-78) Alkaline Phosphatase 87 U/L (46-116) Total Protein 5.3 G/DL (6.4-8.2) L Albumin 1.3 G/DL (3.4-5.0) L Globulin 4.0 g/dL Albumin/Globulin Ratio 0.3 (1.0-2.7) L Arterial Blood pH 7.393 (7.350-7.450) Arterial Blood Partial Pressure CO2 23.8 mmHg (35.0-45.0) *L Arterial Blood Partial Pressure O2 133.5 mmHg (75.0-100.0) H Arterial Blood HCO3 14.2 mmol/L (22.0-26.0) *L Arterial Blood Oxygen Saturation 98.3 % (95-100) Arterial Blood Base Excess -9.0 (-2-2) L Harvey Test Positive Objective HEENT: Orally intubted. LUNGS: Coarse rhonchi. CARDIOVASCULAR: Tachycardic S1 and S2. ABDOMEN: G-tube connected to suction. EXTREMITIES: No pitting edema. Jasbir Madsen MD Sep 16, 2018 14:35
--- NOTE | 2018-09-16 14:51 | GI Progress Note ---
Assessment/Plan Problems: (1) G tube feedings ICD Codes: Z93.1 - Gastrostomy status SNOMED: 066104039, 207194020 (2) Protein-calorie malnutrition, severe ICD Codes: E43 - Unspecified severe protein-calorie malnutrition SNOMED: 680027947 (3) Anemia ICD Codes: D64.9 - Anemia, unspecified SNOMED: 636362048 (4) GI bleed ICD Codes: K92.2 - Gastrointestinal hemorrhage, unspecified SNOMED: 67524857 Status: unchanged Status Narrative Discussed with Dr. Horton. Assessment/Plan cdiff negative OB stool negative GT to LIS with noted bloody output KUB taken, pending final read EGD/colonoscopy to be schedule pending bioethics consultation, no family to obtain consent add additional OB stool prn transfusion ppi erythromycin GT for GI motility fu labs The patient was seen and examined at bedside and all new and available data was reviewed in the patients chart. I agree with the above findings, impression and plan. (Patient seen earlier today. Signature stamp does not reflect patient encounter time.). - Arthur Horton MD Subjective Subjective limited Objective Last 24 Hour Vital Signs Date Time Temp Pulse Resp B/P (MAP) Pulse Ox O2 Delivery O2 Flow Rate FiO2 09/16/18 12:33 85 12 30 09/16/18 12:00 99.6 84 13 117/68 100 Mechanical Ventilator 35 09/16/18 12:00 Mechanical Ventilator Mechanical Ventilator 09/16/18 11:03 90 15 30 09/16/18 11:00 81 13 116/69 100 Mechanical Ventilator 35 09/16/18 10:00 81 10 126/78 100 Mechanical Ventilator 35 09/16/18 09:00 79 12 30 09/16/18 09:00 30 09/16/18 09:00 82 12 126/69 100 Mechanical Ventilator 35 09/16/18 08:00 Mechanical Ventilator Mechanical Ventilator 09/16/18 08:00 88 09/16/18 08:00 35 09/16/18 08:00 99.3 82 13 119/71 100 Mechanical Ventilator 35 09/16/18 07:33 84 12 35 09/16/18 07:00 69 13 113/45 100 Mechanical Ventilator 35 09/16/18 06:00 69 12 124/79 100 Mechanical Ventilator 35 09/16/18 05:21 77 12 35 09/16/18 05:00 77 12 123/79 100 Mechanical Ventilator 35 09/16/18 04:00 84 09/16/18 04:00 35 09/16/18 04:00 99.5 79 27 135/76 100 Mechanical Ventilator 35 09/16/18 04:00 Mechanical Ventilator Mechanical Ventilator 09/16/18 03:30 76 13 35 09/16/18 03:00 76 27 123/74 100 Mechanical Ventilator 35 09/16/18 02:00 67 27 130/76 100 Mechanical Ventilator 35 09/16/18 01:14 83 23 35 09/16/18 01:00 86 27 130/80 100 Mechanical Ventilator 35 09/16/18 00:00 83 09/16/18 00:00 99.5 84 10 131/69 100 Mechanical Ventilator 35 09/16/18 00:00 35 09/16/18 00:00 Mechanical Ventilator Mechanical Ventilator 09/15/18 23:05 82 13 35 09/15/18 23:00 99.5 85 10 122/76 100 Mechanical Ventilator 35 09/15/18 22:00 86 10 127/75 100 Mechanical Ventilator 35 09/15/18 21:00 117/74 09/15/18 21:00 100.3 86 10 128/78 100 Mechanical Ventilator 35 09/15/18 20:48 84 14 35 09/15/18 20:00 99.7 85 15 120/69 100 Mechanical Ventilator 35 09/15/18 20:00 Mechanical Ventilator Mechanical Ventilator 09/15/18 20:00 88 09/15/18 20:00 35 09/15/18 19:30 85 14 35 09/15/18 19:00 98 10 101/61 100 Mechanical Ventilator 35 09/15/18 18:30 99.7 09/15/18 18:00 14 114/64 100 Mechanical Ventilator 35 09/15/18 17:12 97 15 35 09/15/18 17:00 99.4 19 115/59 100 Mechanical Ventilator 35 09/15/18 16:00 98 09/15/18 16:00 35 09/15/18 16:00 Mechanical Ventilator Mechanical Ventilator 09/15/18 16:00 20 98/51 100 Mechanical Ventilator 35 09/15/18 15:24 91 13 35 09/15/18 15:00 13 113/65 100 Mechanical Ventilator 35 Intake and Output 09/15/18 09/16/18 19:00 07:00 Intake Total 242.5 ml 1297.5 ml Output Total 750 ml 505 ml Balance -507.5 ml 792.5 ml IV Total 242.5 ml 737.5 ml Blood Product 500 ml Other 60 ml Output Urine Total 470 ml 505 ml Stool Total 280 ml Laboratory Tests Test 09/15/18 22:45 09/16/18 04:35 09/16/18 08:05 Vancomycin Level Trough 18.1 ug/mL (5.0-12.0) H White Blood Count 9.4 K/UL (4.8-10.8) Red Blood Count 3.78 M/UL (4.70-6.10) L Hemoglobin 11.2 G/DL (14.2-18.0) #L Hematocrit 33.5 % (42.0-52.0) #L Mean Corpuscular Volume 89 FL (80-99) Mean Corpuscular Hemoglobin 29.6 PG (27.0-31.0) Mean Corpuscular Hemoglobin Concent 33.4 G/DL (32.0-36.0) Red Cell Distribution Width 13.3 % (11.6-14.8) Platelet Count 359 K/UL (150-450) Mean Platelet Volume 5.5 FL (6.5-10.1) L Neutrophils (%) (Auto) % (45.0-75.0) Lymphocytes (%) (Auto) % (20.0-45.0) Monocytes (%) (Auto) % (1.0-10.0) Eosinophils (%) (Auto) % (0.0-3.0) Basophils (%) (Auto) % (0.0-2.0) Differential Total Cells Counted 100 Neutrophils % (Manual) 87 % (45-75) H Lymphocytes % (Manual) 5 % (20-45) L Monocytes % (Manual) 3 % (1-10) Eosinophils % (Manual) 0 % (0-3) Basophils % (Manual) 1 % (0-2) Band Neutrophils 4 % (0-8) Platelet Estimate Adequate Platelet Morphology Normal Red Blood Cell Morphology Normal Sodium Level 139 MMOL/L (136-145) Potassium Level 3.6 MMOL/L (3.5-5.1) Chloride Level 112 MMOL/L (98-107) H Carbon Dioxide Level 15 MMOL/L (21-32) L Anion Gap 12 mmol/L (5-15) Blood Urea Nitrogen 9 mg/dL (7-18) Creatinine 1.3 MG/DL (0.55-1.30) Estimat Glomerular Filtration Rate 56.3 mL/min (>60) Glucose Level 95 MG/DL (74-106) Calcium Level 7.3 MG/DL (8.5-10.1) L Phosphorus Level 2.7 MG/DL (2.5-4.9) Magnesium Level 2.0 MG/DL (1.8-2.4) Total Bilirubin 0.8 MG/DL (0.2-1.0) Aspartate Amino Transf (AST/SGOT) 23 U/L (15-37) Alanine Aminotransferase (ALT/SGPT) 25 U/L (12-78) Alkaline Phosphatase 87 U/L (46-116) Total Protein 5.3 G/DL (6.4-8.2) L Albumin 1.3 G/DL (3.4-5.0) L Globulin 4.0 g/dL Albumin/Globulin Ratio 0.3 (1.0-2.7) L Arterial Blood pH 7.393 (7.350-7.450) Arterial Blood Partial Pressure CO2 23.8 mmHg (35.0-45.0) *L Arterial Blood Partial Pressure O2 133.5 mmHg (75.0-100.0) H Arterial Blood HCO3 14.2 mmol/L (22.0-26.0) *L Arterial Blood Oxygen Saturation 98.3 % (95-100) Arterial Blood Base Excess -9.0 (-2-2) L Harvey Test Positive Height (Feet): 5 Height (Inches): 6.00 Weight (Pounds): 130 General Appearance: alert Cardiovascular: normal rate Respiratory/Chest: other - mech vent Abdominal Exam: GT site - c/d/i Becki Holt NP Sep 16, 2018 14:51
--- NOTE | 2018-09-16 15:18 | Surgery Progress Note ---
Surgery Progress Note Subjective Additional Comments more alert today still with support in ICU Objective Last 24 Hour Vital Signs Date Time Temp Pulse Resp B/P (MAP) Pulse Ox O2 Delivery O2 Flow Rate FiO2 09/16/18 12:33 85 12 30 09/16/18 12:00 99.6 84 13 117/68 100 Mechanical Ventilator 35 09/16/18 12:00 Mechanical Ventilator Mechanical Ventilator 09/16/18 11:03 90 15 30 09/16/18 11:00 81 13 116/69 100 Mechanical Ventilator 35 09/16/18 10:00 81 10 126/78 100 Mechanical Ventilator 35 09/16/18 09:00 79 12 30 09/16/18 09:00 30 09/16/18 09:00 82 12 126/69 100 Mechanical Ventilator 35 09/16/18 08:00 Mechanical Ventilator Mechanical Ventilator 09/16/18 08:00 88 09/16/18 08:00 35 09/16/18 08:00 99.3 82 13 119/71 100 Mechanical Ventilator 35 09/16/18 07:33 84 12 35 09/16/18 07:00 69 13 113/45 100 Mechanical Ventilator 35 09/16/18 06:00 69 12 124/79 100 Mechanical Ventilator 35 09/16/18 05:21 77 12 35 09/16/18 05:00 77 12 123/79 100 Mechanical Ventilator 35 09/16/18 04:00 84 09/16/18 04:00 35 09/16/18 04:00 99.5 79 27 135/76 100 Mechanical Ventilator 35 09/16/18 04:00 Mechanical Ventilator Mechanical Ventilator 09/16/18 03:30 76 13 35 09/16/18 03:00 76 27 123/74 100 Mechanical Ventilator 35 09/16/18 02:00 67 27 130/76 100 Mechanical Ventilator 35 09/16/18 01:14 83 23 35 09/16/18 01:00 86 27 130/80 100 Mechanical Ventilator 35 09/16/18 00:00 83 09/16/18 00:00 99.5 84 10 131/69 100 Mechanical Ventilator 35 09/16/18 00:00 35 09/16/18 00:00 Mechanical Ventilator Mechanical Ventilator 09/15/18 23:05 82 13 35 09/15/18 23:00 99.5 85 10 122/76 100 Mechanical Ventilator 35 09/15/18 22:00 86 10 127/75 100 Mechanical Ventilator 35 09/15/18 21:00 117/74 09/15/18 21:00 100.3 86 10 128/78 100 Mechanical Ventilator 35 09/15/18 20:48 84 14 35 09/15/18 20:00 99.7 85 15 120/69 100 Mechanical Ventilator 35 09/15/18 20:00 Mechanical Ventilator Mechanical Ventilator 09/15/18 20:00 88 09/15/18 20:00 35 09/15/18 19:30 85 14 35 09/15/18 19:00 98 10 101/61 100 Mechanical Ventilator 35 09/15/18 18:30 99.7 09/15/18 18:00 14 114/64 100 Mechanical Ventilator 35 09/15/18 17:12 97 15 35 09/15/18 17:00 99.4 19 115/59 100 Mechanical Ventilator 35 09/15/18 16:00 98 09/15/18 16:00 35 09/15/18 16:00 Mechanical Ventilator Mechanical Ventilator 09/15/18 16:00 20 98/51 100 Mechanical Ventilator 35 09/15/18 15:24 91 13 35 I&O Intake and Output 09/15/18 09/16/18 19:00 07:00 Intake Total 242.5 ml 1297.5 ml Output Total 750 ml 505 ml Balance -507.5 ml 792.5 ml IV Total 242.5 ml 737.5 ml Blood Product 500 ml Other 60 ml Output Urine Total 470 ml 505 ml Stool Total 280 ml Dressing: other Wound: other Drains: other Cardiovascular: RSR Respiratory: decreased breath sounds Abdomen: soft, decreased bowel sounds Extremities: other Laboratory Tests Test 09/15/18 22:45 09/16/18 04:35 09/16/18 08:05 Vancomycin Level Trough 18.1 ug/mL (5.0-12.0) H White Blood Count 9.4 K/UL (4.8-10.8) Red Blood Count 3.78 M/UL (4.70-6.10) L Hemoglobin 11.2 G/DL (14.2-18.0) #L Hematocrit 33.5 % (42.0-52.0) #L Mean Corpuscular Volume 89 FL (80-99) Mean Corpuscular Hemoglobin 29.6 PG (27.0-31.0) Mean Corpuscular Hemoglobin Concent 33.4 G/DL (32.0-36.0) Red Cell Distribution Width 13.3 % (11.6-14.8) Platelet Count 359 K/UL (150-450) Mean Platelet Volume 5.5 FL (6.5-10.1) L Neutrophils (%) (Auto) % (45.0-75.0) Lymphocytes (%) (Auto) % (20.0-45.0) Monocytes (%) (Auto) % (1.0-10.0) Eosinophils (%) (Auto) % (0.0-3.0) Basophils (%) (Auto) % (0.0-2.0) Differential Total Cells Counted 100 Neutrophils % (Manual) 87 % (45-75) H Lymphocytes % (Manual) 5 % (20-45) L Monocytes % (Manual) 3 % (1-10) Eosinophils % (Manual) 0 % (0-3) Basophils % (Manual) 1 % (0-2) Band Neutrophils 4 % (0-8) Platelet Estimate Adequate Platelet Morphology Normal Red Blood Cell Morphology Normal Sodium Level 139 MMOL/L (136-145) Potassium Level 3.6 MMOL/L (3.5-5.1) Chloride Level 112 MMOL/L (98-107) H Carbon Dioxide Level 15 MMOL/L (21-32) L Anion Gap 12 mmol/L (5-15) Blood Urea Nitrogen 9 mg/dL (7-18) Creatinine 1.3 MG/DL (0.55-1.30) Estimat Glomerular Filtration Rate 56.3 mL/min (>60) Glucose Level 95 MG/DL (74-106) Calcium Level 7.3 MG/DL (8.5-10.1) L Phosphorus Level 2.7 MG/DL (2.5-4.9) Magnesium Level 2.0 MG/DL (1.8-2.4) Total Bilirubin 0.8 MG/DL (0.2-1.0) Aspartate Amino Transf (AST/SGOT) 23 U/L (15-37) Alanine Aminotransferase (ALT/SGPT) 25 U/L (12-78) Alkaline Phosphatase 87 U/L (46-116) Total Protein 5.3 G/DL (6.4-8.2) L Albumin 1.3 G/DL (3.4-5.0) L Globulin 4.0 g/dL Albumin/Globulin Ratio 0.3 (1.0-2.7) L Arterial Blood pH 7.393 (7.350-7.450) Arterial Blood Partial Pressure CO2 23.8 mmHg (35.0-45.0) *L Arterial Blood Partial Pressure O2 133.5 mmHg (75.0-100.0) H Arterial Blood HCO3 14.2 mmol/L (22.0-26.0) *L Arterial Blood Oxygen Saturation 98.3 % (95-100) Arterial Blood Base Excess -9.0 (-2-2) L Harvey Test Positive Plan Problems: (1) Decubitus skin ulcer Assessment & Plan: Pt presents with multiple skin issues. Intact serous blister noted to lateral R abd (L)2.6cm x (W)2.2cm. Intact serous blister lateral R abd (L)0.7cm x (W)1.4cm. 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 Erythema with induration along borders. Buttocks without evidence of skin breakdown. Both heels are dry and easily blanchable. Tx.Plan: Cleanse wound R Hip with Saline.Recommend Silvasorb gel .Apply Cavilon Skin Barrier periwound.Cover with Optifoam drsg every 3 Days and prn. Apply Cavilon Skin Barrier to Blisters (2) R abd. Cover with Optifoam drsg.Change every 7 days and PRN. Apply Moisture barrier to sacrum .Cover with Optifoam .Change every 7 days and prn. Air Fluidized mattress. Apply Cavilon to both heels .Off-load heels with pillow. (2) Septic shock Assessment & Plan: cont current care (3) Protein-calorie malnutrition, severe Assessment & Plan: will need nutritional optimization to recover and heal wounds nutrition consult Isreal Lynne Sep 16, 2018 15:18
[2018-09-16] MEDS ORDERED: NS 275ml ONE (15:25)
[2018-09-16] MEDS ORDERED: D5NS 1000ml IV ONE (15:25)
[2018-09-16] MEDS ORDERED: Tubing IV Secondary IV ONE (15:25)
--- NOTE | 2018-09-16 15:45 | Progress Note ---
DATE: 09/16/2018 SUBJECTIVE: This is a 62-year-old male patient with septic shock. He is in the ICU. The patient has previous diagnosis of paranoid schizophrenia, but he is in ICU. He is nonverbal on interview, but he still has intermittent thoughts of psychomotor agitation, confusion, altered mental status. Cognition has declined below the baseline. That is why, his attending has requested daily psychiatric consultation. MENTAL STATUS EXAMINATION: This is a 62-year-old male. Appearance is disheveled. Attitude, irritable and agitated. Affect flat. Thought process, disorganized. Thought content, no signs of any paranoia. He is not able to communicate. He has auditory hallucinations and paranoid delusions. Insight and judgment appeared to be poor. No signs of any suicidal or homicidal ideations. DIAGNOSIS: Paranoid schizophrenia acute exacerbation rule out dementia with psychosis. PLAN: Continue this patient on Risperdal to help stabilize mood, reduce agitation, and psychosis. 20 minutes of behavior modification provided. Chart reviewed. Seen in the ICU. Continued to be followed by Psychiatry per request of his attending physician due to his altered mental status. Virgie Mcdermott M.D. DR: ESCOBAR JOB#: [id number] CC:
[2018-09-16] MEDS ORDERED: Nulytely 4L ORAL ONE (16:00)
--- NOTE | 2018-09-16 16:44 | General Progress Note ---
Assessment/Plan Problem List: (1) UTI (urinary tract infection) ICD Codes: N39.0 - Urinary tract infection, site not specified SNOMED: 17869714 (2) Renal failure ICD Codes: N19 - Unspecified kidney failure SNOMED: 01151404 (3) Anemia ICD Codes: D64.9 - Anemia, unspecified SNOMED: 057617982 (4) Acute respiratory failure ICD Codes: J96.00 - Acute respiratory failure, unspecified whether with hypoxia or hypercapnia SNOMED: 23714014 (5) Pneumonia ICD Codes: J18.9 - Pneumonia, unspecified organism SNOMED: 052870672 (6) Septic shock ICD Codes: A41.9 - Sepsis, unspecified organism; R65.21 - Severe sepsis with septic shock SNOMED: 31748079 (7) ATN (acute tubular necrosis) ICD Codes: N17.0 - Acute kidney failure with tubular necrosis SNOMED: 57233020 Status: unchanged Assessment/Plan vent abx wound care neph f/u gi eval cbc bmp am ltach eval Subjective Constitutional: Reports: weakness Allergies: Coded Allergies: No Known Allergies (Unverified , 08/14/18) All Systems: reviewed and negative except above Subjective intubated sedated in icu Objective Last 24 Hour Vital Signs Date Time Temp Pulse Resp B/P (MAP) Pulse Ox O2 Delivery O2 Flow Rate FiO2 09/16/18 16:00 81 09/16/18 16:00 30 09/16/18 16:00 Mechanical Ventilator Mechanical Ventilator 09/16/18 14:45 81 12 30 09/16/18 12:33 85 12 30 09/16/18 12:00 82 09/16/18 12:00 99.6 84 13 117/68 100 Mechanical Ventilator 35 09/16/18 12:00 Mechanical Ventilator Mechanical Ventilator 09/16/18 11:03 90 15 30 09/16/18 11:00 81 13 116/69 100 Mechanical Ventilator 35 09/16/18 10:00 81 10 126/78 100 Mechanical Ventilator 35 09/16/18 09:00 79 12 30 09/16/18 09:00 30 09/16/18 09:00 82 12 126/69 100 Mechanical Ventilator 35 09/16/18 08:00 Mechanical Ventilator Mechanical Ventilator 09/16/18 08:00 88 09/16/18 08:00 35 09/16/18 08:00 99.3 82 13 119/71 100 Mechanical Ventilator 35 09/16/18 07:33 84 12 35 09/16/18 07:00 69 13 113/45 100 Mechanical Ventilator 35 09/16/18 06:00 69 12 124/79 100 Mechanical Ventilator 35 09/16/18 05:21 77 12 35 09/16/18 05:00 77 12 123/79 100 Mechanical Ventilator 35 09/16/18 04:00 84 09/16/18 04:00 35 09/16/18 04:00 99.5 79 27 135/76 100 Mechanical Ventilator 35 09/16/18 04:00 Mechanical Ventilator Mechanical Ventilator 09/16/18 03:30 76 13 35 09/16/18 03:00 76 27 123/74 100 Mechanical Ventilator 35 09/16/18 02:00 67 27 130/76 100 Mechanical Ventilator 35 09/16/18 01:14 83 23 35 09/16/18 01:00 86 27 130/80 100 Mechanical Ventilator 35 09/16/18 00:00 83 09/16/18 00:00 99.5 84 10 131/69 100 Mechanical Ventilator 35 09/16/18 00:00 35 09/16/18 00:00 Mechanical Ventilator Mechanical Ventilator 09/15/18 23:05 82 13 35 09/15/18 23:00 99.5 85 10 122/76 100 Mechanical Ventilator 35 09/15/18 22:00 86 10 127/75 100 Mechanical Ventilator 35 09/15/18 21:00 117/74 09/15/18 21:00 100.3 86 10 128/78 100 Mechanical Ventilator 35 09/15/18 20:48 84 14 35 09/15/18 20:00 99.7 85 15 120/69 100 Mechanical Ventilator 35 09/15/18 20:00 Mechanical Ventilator Mechanical Ventilator 09/15/18 20:00 88 09/15/18 20:00 35 09/15/18 19:30 85 14 35 09/15/18 19:00 98 10 101/61 100 Mechanical Ventilator 35 09/15/18 18:30 99.7 09/15/18 18:00 14 114/64 100 Mechanical Ventilator 35 09/15/18 17:12 97 15 35 09/15/18 17:00 99.4 19 115/59 100 Mechanical Ventilator 35 Intake and Output 09/15/18 09/16/18 19:00 07:00 Intake Total 242.5 ml 1297.5 ml Output Total 750 ml 505 ml Balance -507.5 ml 792.5 ml IV Total 242.5 ml 737.5 ml Blood Product 500 ml Other 60 ml Output Urine Total 470 ml 505 ml Stool Total 280 ml Laboratory Tests 09/15/18 22:45: Vancomycin Level Trough 18.1H 09/16/18 04:35: White Blood Count 9.4, Red Blood Count 3.78L, Hemoglobin 11.2#L, Hematocrit 33.5 #L, Mean Corpuscular Volume 89, Mean Corpuscular Hemoglobin 29.6, Mean Corpuscular Hemoglobin Concent 33.4, Red Cell Distribution Width 13.3, Platelet Count 359, Mean Platelet Volume 5.5L, Neutrophils (%) (Auto) , Lymphocytes (%) ( Auto) , Monocytes (%) (Auto) , Eosinophils (%) (Auto) , Basophils (%) (Auto) , Differential Total Cells Counted 100, Neutrophils % (Manual) 87H, Lymphocytes % (Manual) 5L, Monocytes % (Manual) 3, Eosinophils % (Manual) 0, Basophils % ( Manual) 1, Band Neutrophils 4, Platelet Estimate Adequate, Platelet Morphology Normal, Red Blood Cell Morphology Normal, Sodium Level 139, Potassium Level 3.6 , Chloride Level 112H, Carbon Dioxide Level 15L, Anion Gap 12, Blood Urea Nitrogen 9, Creatinine 1.3, Estimat Glomerular Filtration Rate 56.3, Glucose Level 95, Calcium Level 7.3L, Phosphorus Level 2.7, Magnesium Level 2.0, Total Bilirubin 0.8, Aspartate Amino Transf (AST/SGOT) 23, Alanine Aminotransferase ( ALT/SGPT) 25, Alkaline Phosphatase 87, Total Protein 5.3L, Albumin 1.3L, Globulin 4.0, Albumin/Globulin Ratio 0.3L 09/16/18 08:05: Arterial Blood pH 7.393, Arterial Blood Partial Pressure CO2 23.8*L, Arterial Blood Partial Pressure O2 133.5H, Arterial Blood HCO3 14.2*L, Arterial Blood Oxygen Saturation 98.3, Arterial Blood Base Excess -9.0L, Harvey Test Positive Height (Feet): 5 Height (Inches): 6.00 Weight (Pounds): 130 General Appearance: lethargic EENT: normal ENT inspection Neck: normal alignment Cardiovascular: normal peripheral pulses, normal rate, regular rhythm Respiratory/Chest: chest wall non-tender, lungs clear, normal breath sounds Abdomen: normal bowel sounds, non tender, soft Extremities: normal inspection Edema: no edema noted Arm (L), no edema noted Arm (R), no edema noted Leg (L), no edema noted Leg (R), no edema noted Pedal (L), no edema noted Pedal (R), no edema noted Generalized Neurologic: motor weakness Skin: normal pigmentation, warm/dry Jasmeet Reynoso DO Sep 16, 2018 16:44
[2018-09-16] MEDS: Dyna-Hex 2% Top Sol 2oz TOPIC SCH (19:41)
[2018-09-16] MEDS: Norepinephrine Bitartrate 8 MG in D5W 500ml 550 ML IV SCH (20:31)
[2018-09-16] MEDS: D5NS 1,000 ML IV SCH (21:48)
[2018-09-17] VITALS (25 sets, daily range): BP systolic 99–132; BP diastolic 52–82
[2018-09-17] MEDS: NovoLOG Insulin Flexpen SUBQ SCH ×5 (00:30→18:27)
[2018-09-17] MEDS: Erythromycin Ethylsuccinate 200mg/5ml Susp GT SCH ×3 (05:41→17:16)
[2018-09-17] MEDS: Piperacillin/Tazobactam 3.375 GM in D5W 110 ML IVPB SCH ×3 (05:41→21:36)
[2018-09-17 05:46] LABS: HEMATOCRIT 33.2 % (42.0-52.0); HEMOGLOBIN 11.1 G/DL (14.2-18.0); MEAN CORPUSCULAR VOLUME 89 FL (80-99); PLATELET COUNT 432 K/UL (150-450); RED BLOOD COUNT 3.74 M/UL (4.70-6.10); RED CELL DISTRIBUTION WIDTH 13.5 % (11.6-14.8); WHITE BLOOD COUNT 8.2 K/UL (4.8-10.8)
[2018-09-17 05:50] LABS: INR 1.2 (0.9-1.1)
[2018-09-17 06:14] LABS: ALANINE AMINOTRANSFERASE 17 U/L (12-78); ALBUMIN 1.2 G/DL (3.4-5.0); ALBUMIN/GLOBULIN RATIO 0.3 (1.0-2.7); ALKALINE PHOSPHATASE 76 U/L (46-116); ANION GAP 10 mmol/L (5-15); ASPARTATE AMINO TRANSFERASE 21 U/L (15-37); BILIRUBIN,TOTAL 0.5 MG/DL (0.2-1.0); BLOOD UREA NITROGEN 6 mg/dL (7-18); CALCIUM 6.9 MG/DL (8.5-10.1); CARBON DIOXIDE 19 MMOL/L (21-32); CHLORIDE 113 MMOL/L (98-107); CREATININE 1.4 MG/DL (0.55-1.30); PHOSPHORUS 2.3 MG/DL (2.5-4.9); POTASSIUM 3.1 MMOL/L (3.5-5.1); SODIUM 142 MMOL/L (136-145)
[2018-09-17] MEDS: Pantoprazole Inj IVP SCH ×2 (08:48→20:45)
[2018-09-17] MEDS: Heparin 5000 units/ml inj SUBQ SCH ×2 (08:49→20:44)
--- NOTE | 2018-09-17 09:29 | Infectious Diseases Prog Note ---
Assessment/Plan Assessment/Plan 62 yo male with PMHx of Quadriplegia with G-tube, HTN, DM and Schizophenia who was sent to the ED fromhis assisted for AMS. Sepsis - Probably PNA but will f/u other cultures No intubated on vent 45% CXR 09/07/18 - possible left sided consolidation Inf neg 09/07/18 BCx 2/2 sets diphteroids, 1/2 setse S. epi (contaminants); 2/ Bcx NTD 09/07/18 SCx - NF 09/07/18 UCx - Neg 09/09 Cdiff neg No leukocytosis Febrile to 103 on admit; improving HTN DM Schizophenia Quadriplegia. G- tube dependent Plan - Continue Ceftriaxone #9/10 - 09/17/18 SP Continue Vancmocyin #10 - 09/09/18 Ertapenem #3 pending Cx - Monitor CBC and temps We will continue to follow the patient during this hospitalization. Subjective Allergies: Coded Allergies: No Known Allergies (Unverified , 08/14/18) Subjective Low grade fevers resolving No leukocytosis On vent Objective Vital Signs Last 24 Hour Vital Signs Date Time Temp Pulse Resp B/P (MAP) Pulse Ox O2 Delivery O2 Flow Rate FiO2 09/17/18 09:00 94 19 120/74 100 Mechanical Ventilator 30 09/17/18 08:43 90 15 30 09/17/18 08:15 87 14 30 09/17/18 08:00 30 09/17/18 08:00 Mechanical Ventilator Mechanical Ventilator 09/17/18 08:00 99.2 94 16 123/71 100 Mechanical Ventilator 30 09/17/18 07:00 112 16 115/71 100 Mechanical Ventilator 30 09/17/18 06:00 95 20 117/64 100 Mechanical Ventilator 30 09/17/18 05:16 89 16 30 09/17/18 05:00 84 13 119/74 100 Mechanical Ventilator 30 09/17/18 04:11 86 09/17/18 04:00 98.6 83 15 125/75 100 Mechanical Ventilator 30 09/17/18 04:00 Mechanical Ventilator Mechanical Ventilator 09/17/18 04:00 30 09/17/18 03:00 83 15 116/67 100 Mechanical Ventilator 30 09/17/18 02:47 81 20 30 09/17/18 02:00 86 15 130/75 100 Mechanical Ventilator 30 09/17/18 01:29 91 18 30 09/17/18 01:00 89 22 109/81 100 Mechanical Ventilator 30 09/17/18 00:00 Mechanical Ventilator Mechanical Ventilator 09/17/18 00:00 30 09/17/18 00:00 99.9 82 14 108/67 100 Mechanical Ventilator 30 09/16/18 23:44 76 09/16/18 23:02 83 15 30 09/16/18 23:00 89 12 111/67 100 Mechanical Ventilator 30 09/16/18 22:00 96 18 102/68 100 Mechanical Ventilator 30 09/16/18 21:10 86 16 30 09/16/18 21:00 89 16 114/70 100 Mechanical Ventilator 30 09/16/18 20:31 117/76 09/16/18 20:15 88 09/16/18 20:00 Mechanical Ventilator Mechanical Ventilator 09/16/18 20:00 30 09/16/18 20:00 99.8 87 14 117/76 100 Mechanical Ventilator 30 09/16/18 19:26 87 15 30 09/16/18 19:00 92 13 119/77 100 Mechanical Ventilator 35 09/16/18 18:00 89 13 115/89 100 Mechanical Ventilator 35 09/16/18 17:00 81 13 112/68 100 Mechanical Ventilator 35 09/16/18 16:46 91 16 30 09/16/18 16:00 81 09/16/18 16:00 30 09/16/18 16:00 Mechanical Ventilator Mechanical Ventilator 09/16/18 16:00 99.8 81 13 119/70 100 Mechanical Ventilator 35 09/16/18 15:00 81 13 116/70 100 Mechanical Ventilator 35 09/16/18 14:45 81 12 30 09/16/18 14:00 81 13 121/83 100 Mechanical Ventilator 35 09/16/18 13:00 82 13 119/73 100 Mechanical Ventilator 35 09/16/18 12:33 85 12 30 09/16/18 12:00 82 09/16/18 12:00 99.6 84 13 117/68 100 Mechanical Ventilator 35 09/16/18 12:00 Mechanical Ventilator Mechanical Ventilator 09/16/18 11:03 90 15 30 09/16/18 11:00 81 13 116/69 100 Mechanical Ventilator 35 09/16/18 10:00 81 10 126/78 100 Mechanical Ventilator 35 Height (Feet): 5 Height (Inches): 6.00 Weight (Pounds): 124 Objective Gen: NAD, On vent satting well HEENT: NCAT, MMM, EOMI ABD: Soft, NT, distended, + BS,G tube (No E/P) NEURO: Intubated, not following Laboratory Tests Test 09/17/18 04:00 White Blood Count 8.2 K/UL (4.8-10.8) Red Blood Count 3.74 M/UL (4.70-6.10) L Hemoglobin 11.1 G/DL (14.2-18.0) L Hematocrit 33.2 % (42.0-52.0) L Mean Corpuscular Volume 89 FL (80-99) Mean Corpuscular Hemoglobin 29.8 PG (27.0-31.0) Mean Corpuscular Hemoglobin Concent 33.5 G/DL (32.0-36.0) Red Cell Distribution Width 13.5 % (11.6-14.8) Platelet Count 432 K/UL (150-450) Mean Platelet Volume 5.2 FL (6.5-10.1) L Neutrophils (%) (Auto) % (45.0-75.0) Lymphocytes (%) (Auto) % (20.0-45.0) Monocytes (%) (Auto) % (1.0-10.0) Eosinophils (%) (Auto) % (0.0-3.0) Basophils (%) (Auto) % (0.0-2.0) Prothrombin Time 12.1 SEC (9.30-11.50) H Prothromb Time International Ratio 1.2 (0.9-1.1) H Activated Partial Thromboplast Time 38 SEC (23-33) H Sodium Level 142 MMOL/L (136-145) Potassium Level 3.1 MMOL/L (3.5-5.1) L Chloride Level 113 MMOL/L (98-107) H Carbon Dioxide Level 19 MMOL/L (21-32) L Anion Gap 10 mmol/L (5-15) Blood Urea Nitrogen 6 mg/dL (7-18) L Creatinine 1.4 MG/DL (0.55-1.30) H Estimat Glomerular Filtration Rate 51.7 mL/min (>60) Glucose Level 168 MG/DL (74-106) H Calcium Level 6.9 MG/DL (8.5-10.1) L Phosphorus Level 2.3 MG/DL (2.5-4.9) L Magnesium Level 1.6 MG/DL (1.8-2.4) L Total Bilirubin 0.5 MG/DL (0.2-1.0) Aspartate Amino Transf (AST/SGOT) 21 U/L (15-37) Alanine Aminotransferase (ALT/SGPT) 17 U/L (12-78) Alkaline Phosphatase 76 U/L (46-116) Total Protein 5.1 G/DL (6.4-8.2) L Albumin 1.2 G/DL (3.4-5.0) L Globulin 3.9 g/dL Albumin/Globulin Ratio 0.3 (1.0-2.7) L Current Medications Medications (Trade) Dose Ordered Sig/Julito Route PRN Reason Start Time Stop Time Status Last Admin Dose Admin Acetaminophen (Tylenol) 650 mg Q4H PRN NG Mild Pain/Temp > 100.5 09/08/18 13:30 10/08/18 13:29 09/15/18 18:00 Albuterol/ Ipratropium (Albuterol/ Ipratropium) 3 ml Q4H PRN HHN sob 09/16/18 11:30 09/22/18 11:29 Chlorhexidine Gluconate (Camila-Hex 2%) 1 applic DAILY@2000 TOPIC 09/15/18 20:00 10/15/18 19:59 09/16/18 19:41 Dextrose (Dextrose 50%) 25 ml Q30M PRN IV Hypoglycemia 09/08/18 13:30 10/08/18 13:29 Dextrose (Dextrose 50%) 50 ml Q30M PRN IV Hypoglycemia 09/08/18 13:30 10/08/18 13:29 09/17/18 00:30 Dextrose/Sodium Chloride 1,000 ml @ 50 mls/hr Q20H IV 09/13/18 13:45 10/13/18 13:44 09/16/18 21:48 Erythromycin (Jossue-Ped) 200 mg Q6HR GT 09/14/18 18:00 09/21/18 17:59 09/17/18 05:41 Heparin Sodium (Porcine) (Heparin 5000 units/ml) 5,000 units EVERY 12 HOURS SUBQ 09/07/18 21:00 10/07/18 20:59 09/16/18 20:30 Insulin Aspart (NovoLOG) EVERY 4 HOURS SUBQ 09/08/18 14:30 10/08/18 14:29 09/17/18 08:47 Loperamide HCl (Imodium) 4 mg TIDPRN PRN ORAL Diarrhea 09/10/18 13:00 10/10/18 12:59 09/11/18 03:51 Lorazepam (Ativan) 1 mg Q6H PRN ORAL For Anxiety 09/16/18 12:00 09/22/18 11:59 Midodrine (Pro-Amatine) 2.5 mg THREE TIMES A DAY GT 09/13/18 18:00 10/13/18 17:59 09/17/18 08:46 Norepinephrine Bitartrate 8 mg/ Dextrose 558 ml @ 0 mls/hr Q24H IV 09/08/18 21:00 10/08/18 20:59 09/10/18 18:37 Ondansetron HCl (Zofran) 4 mg Q6H PRN IVP Nausea & Vomiting 09/07/18 15:15 10/07/18 15:14 Pantoprazole (Protonix) 40 mg Q12HR IVP 09/07/18 21:00 10/08/18 08:59 09/17/18 08:48 Piperacillin Sod/ Tazobactam Sod 3.375 gm/Dextrose 110 ml @ 27.5 mls/hr Q8HR IVPB 09/09/18 14:00 09/19/18 13:59 09/17/18 05:41 Polyethylene Glycol (Miralax) 17 gm DAILYPRN PRN ORAL Constipation 09/07/18 15:15 10/07/18 15:14 Risperidone (RisperDAL) 0.25 mg QHS ORAL 09/10/18 21:00 10/10/18 20:59 09/15/18 21:03 Sodium Chloride 500 ml @ 999 mls/hr Q31M PRN IV SBP<90mmHg 09/08/18 11:00 10/08/18 10:59 09/08/18 12:34 Vancomycin HCl (Vanco rx to dose) 1 ea DAILY PRN MISC PER PHARMACY 09/07/18 16:30 10/07/18 16:29 Vancomycin HCl 500 mg/Dextrose 110 ml @ 110 mls/hr Q12H IVPB 09/14/18 11:00 09/19/18 10:59 09/16/18 22:32 Asim De Leon MD Sep 17, 2018 09:29
--- NOTE | 2018-09-17 09:58 | Pulmonolgy Critical Care Note ---
Critical Care - Asmt/Plan Problems: (1) Septic shock (2) ATN (acute tubular necrosis) (3) Hyperkalemia (4) Metabolic acidosis Respiratory: adjust tidal volume, monitor respiratory rate, adjust FIO2 Cardiac: continue to monitor HR/BP Renal: F/U I&O, check electrolytes Infectious Disease: check cultures Gastrointestinal: continue feedings/current rate Endocrine: monitor blood sugar, continue sliding scale insulin Hematologic: transfuse if hgb<8.5 Neurologic: PRN Morphine, keep patient comfortable Affect: PRN ativan Prophylaxis: Heparin Notes Reviewed: compactor driver, cardio, renal, ID Critical Care - Objective Last 24 Hour Vital Signs Date Time Temp Pulse Resp B/P (MAP) Pulse Ox O2 Delivery O2 Flow Rate FiO2 09/17/18 09:00 94 19 120/74 100 Mechanical Ventilator 30 09/17/18 08:43 90 15 30 09/17/18 08:15 87 14 30 09/17/18 08:00 30 09/17/18 08:00 Mechanical Ventilator Mechanical Ventilator 09/17/18 08:00 99.2 94 16 123/71 100 Mechanical Ventilator 30 09/17/18 08:00 85 09/17/18 07:00 112 16 115/71 100 Mechanical Ventilator 30 09/17/18 06:00 95 20 117/64 100 Mechanical Ventilator 30 09/17/18 05:16 89 16 30 09/17/18 05:00 84 13 119/74 100 Mechanical Ventilator 30 09/17/18 04:11 86 09/17/18 04:00 98.6 83 15 125/75 100 Mechanical Ventilator 09/17/18 04:00 Mechanical Ventilator Mechanical Ventilator 09/17/18 04:00 30 09/17/18 03:00 83 15 116/67 100 Mechanical Ventilator 30 09/17/18 02:47 81 20 30 09/17/18 02:00 86 15 130/75 100 Mechanical Ventilator 30 09/17/18 01:29 91 18 30 09/17/18 01:00 89 22 109/81 100 Mechanical Ventilator 30 09/17/18 00:00 Mechanical Ventilator Mechanical Ventilator 09/17/18 00:00 30 09/17/18 00:00 99.9 82 14 108/67 100 Mechanical Ventilator 30 09/16/18 23:44 76 09/16/18 23:02 83 15 30 09/16/18 23:00 89 12 111/67 100 Mechanical Ventilator 30 09/16/18 22:00 96 18 102/68 100 Mechanical Ventilator 30 09/16/18 21:10 86 16 30 09/16/18 21:00 89 16 114/70 100 Mechanical Ventilator 30 09/16/18 20:31 117/76 09/16/18 20:15 88 09/16/18 20:00 Mechanical Ventilator Mechanical Ventilator 09/16/18 20:00 30 09/16/18 20:00 99.8 87 14 117/76 100 Mechanical Ventilator 30 09/16/18 19:26 87 15 30 09/16/18 19:00 92 13 119/77 100 Mechanical Ventilator 35 09/16/18 18:00 89 13 115/89 100 Mechanical Ventilator 35 09/16/18 17:00 81 13 112/68 100 Mechanical Ventilator 35 09/16/18 16:46 91 16 30 09/16/18 16:00 81 09/16/18 16:00 30 09/16/18 16:00 Mechanical Ventilator Mechanical Ventilator 09/16/18 16:00 99.8 81 13 119/70 100 Mechanical Ventilator 35 09/16/18 15:00 81 13 116/70 100 Mechanical Ventilator 35 09/16/18 14:45 81 12 30 09/16/18 14:00 81 13 121/83 100 Mechanical Ventilator 35 09/16/18 13:00 82 13 119/73 100 Mechanical Ventilator 35 09/16/18 12:33 85 12 30 09/16/18 12:00 82 09/16/18 12:00 99.6 84 13 117/68 100 Mechanical Ventilator 35 09/16/18 12:00 Mechanical Ventilator Mechanical Ventilator 09/16/18 11:03 90 15 30 09/16/18 11:00 81 13 116/69 100 Mechanical Ventilator 35 09/16/18 10:00 81 10 126/78 100 Mechanical Ventilator 35 Status: awake Condition: critical Neck: full ROM Heart: HR/BP stable Abdomen: soft, non-tender Extremities: no C/C/E Decubiti: location, stage Accucheck: 128 Critical Care - Subjective ROS Limited/Unobtainable: Yes EKG Rhythm: Sinus Rhythm FI02: 30 Vent Support Breath Rate: 12 Vent Support Mode: AC Vent Tidal Volume: 600 Sputum Amount: Small PEEP: 0.0 PIP: 24 Tube Feeding Amount: 30 I&O: Intake and Output 09/16/18 09/17/18 19:00 07:00 Intake Total 600 ml 936.5 ml Output Total 590 ml 935 ml Balance 10 ml 1.5 ml IV Total 600 ml 856.5 ml Other 80 ml Output Urine Total 510 ml 705 ml Stool Total 200 ml Gastric Drainage Total 30 ml Emesis 80 ml CXR: no change ET-Tube: 7.5 ET Position: 23 Labs: Laboratory Tests Test 09/17/18 04:00 White Blood Count 8.2 K/UL (4.8-10.8) Red Blood Count 3.74 M/UL (4.70-6.10) L Hemoglobin 11.1 G/DL (14.2-18.0) L Hematocrit 33.2 % (42.0-52.0) L Mean Corpuscular Volume 89 FL (80-99) Mean Corpuscular Hemoglobin 29.8 PG (27.0-31.0) Mean Corpuscular Hemoglobin Concent 33.5 G/DL (32.0-36.0) Red Cell Distribution Width 13.5 % (11.6-14.8) Platelet Count 432 K/UL (150-450) Mean Platelet Volume 5.2 FL (6.5-10.1) L Neutrophils (%) (Auto) % (45.0-75.0) Lymphocytes (%) (Auto) % (20.0-45.0) Monocytes (%) (Auto) % (1.0-10.0) Eosinophils (%) (Auto) % (0.0-3.0) Basophils (%) (Auto) % (0.0-2.0) Prothrombin Time 12.1 SEC (9.30-11.50) H Prothromb Time International Ratio 1.2 (0.9-1.1) H Activated Partial Thromboplast Time 38 SEC (23-33) H Sodium Level 142 MMOL/L (136-145) Potassium Level 3.1 MMOL/L (3.5-5.1) L Chloride Level 113 MMOL/L (98-107) H Carbon Dioxide Level 19 MMOL/L (21-32) L Anion Gap 10 mmol/L (5-15) Blood Urea Nitrogen 6 mg/dL (7-18) L Creatinine 1.4 MG/DL (0.55-1.30) H Estimat Glomerular Filtration Rate 51.7 mL/min (>60) Glucose Level 168 MG/DL (74-106) H Calcium Level 6.9 MG/DL (8.5-10.1) L Phosphorus Level 2.3 MG/DL (2.5-4.9) L Magnesium Level 1.6 MG/DL (1.8-2.4) L Total Bilirubin 0.5 MG/DL (0.2-1.0) Aspartate Amino Transf (AST/SGOT) 21 U/L (15-37) Alanine Aminotransferase (ALT/SGPT) 17 U/L (12-78) Alkaline Phosphatase 76 U/L (46-116) Total Protein 5.1 G/DL (6.4-8.2) L Albumin 1.2 G/DL (3.4-5.0) L Globulin 3.9 g/dL Albumin/Globulin Ratio 0.3 (1.0-2.7) L Po Li MD Sep 17, 2018 09:57
--- NOTE | 2018-09-17 10:16 | Cardiac Electrophysiology PN ---
Assessment/Plan Assessment/Plan 1. S/P Septic and hemorrhagic shock with Lactic acidosis. On iv fluids and Abx and off pressors S/P PRBC 2. Sinus tachycardia with heart rate in 140s due to the patient's septic shock and dehydration. No evidence of atrial fibrillation. EF of 75%. 3. Troponin elevation due to renal failure. EF 75%. 4. Respiratory failure on the vent 5. Rhabdomyolysis with CPK in thousands. May be contributing to renal failure. 6. Acute renal failure and severe hyperkalemia. Resolved FU by Dr. Smalls 7. Dysphagia, status post PEG placement. 8. GI bleed. EGD and colonoscopy on Friday by Dr Horton if Ethics meeting agrees DW RN Subjective Subjective On vent unresponsive off pressors. GT still draining blood tinged material. Awaiting Bioethics for consent for EGD and colonoscopy as has no family Objective Last 24 Hour Vital Signs Date Time Temp Pulse Resp B/P (MAP) Pulse Ox O2 Delivery O2 Flow Rate FiO2 09/17/18 09:00 94 19 120/74 100 Mechanical Ventilator 30 09/17/18 08:43 90 15 30 09/17/18 08:15 87 14 30 09/17/18 08:00 30 09/17/18 08:00 Mechanical Ventilator Mechanical Ventilator 09/17/18 08:00 99.2 94 16 123/71 100 Mechanical Ventilator 30 09/17/18 08:00 85 09/17/18 07:00 112 16 115/71 100 Mechanical Ventilator 30 09/17/18 06:00 95 20 117/64 100 Mechanical Ventilator 30 09/17/18 05:16 89 16 30 09/17/18 05:00 84 13 119/74 100 Mechanical Ventilator 30 09/17/18 04:11 86 09/17/18 04:00 98.6 83 15 125/75 100 Mechanical Ventilator 30 09/17/18 04:00 Mechanical Ventilator Mechanical Ventilator 09/17/18 04:00 30 09/17/18 03:00 83 15 116/67 100 Mechanical Ventilator 30 09/17/18 02:47 81 20 30 09/17/18 02:00 86 15 130/75 100 Mechanical Ventilator 30 09/17/18 01:29 91 18 30 09/17/18 01:00 89 22 109/81 100 Mechanical Ventilator 30 09/17/18 00:00 Mechanical Ventilator Mechanical Ventilator 09/17/18 00:00 30 09/17/18 00:00 99.9 82 14 108/67 100 Mechanical Ventilator 30 09/16/18 23:44 76 09/16/18 23:02 83 15 30 09/16/18 23:00 89 12 111/67 100 Mechanical Ventilator 30 09/16/18 22:00 96 18 102/68 100 Mechanical Ventilator 30 09/16/18 21:10 86 16 30 09/16/18 21:00 89 16 114/70 100 Mechanical Ventilator 30 09/16/18 20:31 117/76 09/16/18 20:15 88 09/16/18 20:00 Mechanical Ventilator Mechanical Ventilator 09/16/18 20:00 30 09/16/18 20:00 99.8 87 14 117/76 100 Mechanical Ventilator 30 09/16/18 19:26 87 15 30 09/16/18 19:00 92 13 119/77 100 Mechanical Ventilator 35 09/16/18 18:00 89 13 115/89 100 Mechanical Ventilator 35 09/16/18 17:00 81 13 112/68 100 Mechanical Ventilator 35 09/16/18 16:46 91 16 30 09/16/18 16:00 81 09/16/18 16:00 30 09/16/18 16:00 Mechanical Ventilator Mechanical Ventilator 09/16/18 16:00 99.8 81 13 119/70 100 Mechanical Ventilator 35 09/16/18 15:00 81 13 116/70 100 Mechanical Ventilator 35 09/16/18 14:45 81 12 30 09/16/18 14:00 81 13 121/83 100 Mechanical Ventilator 35 09/16/18 13:00 82 13 119/73 100 Mechanical Ventilator 35 09/16/18 12:33 85 12 30 09/16/18 12:00 82 09/16/18 12:00 99.6 84 13 117/68 100 Mechanical Ventilator 35 09/16/18 12:00 Mechanical Ventilator Mechanical Ventilator 09/16/18 11:03 90 15 30 09/16/18 11:00 81 13 116/69 100 Mechanical Ventilator 35 Intake and Output 09/16/18 09/17/18 19:00 07:00 Intake Total 600 ml 936.5 ml Output Total 590 ml 935 ml Balance 10 ml 1.5 ml IV Total 600 ml 856.5 ml Other 80 ml Output Urine Total 510 ml 705 ml Stool Total 200 ml Gastric Drainage Total 30 ml Emesis 80 ml Laboratory Tests Test 09/17/18 04:00 White Blood Count 8.2 K/UL (4.8-10.8) Red Blood Count 3.74 M/UL (4.70-6.10) L Hemoglobin 11.1 G/DL (14.2-18.0) L Hematocrit 33.2 % (42.0-52.0) L Mean Corpuscular Volume 89 FL (80-99) Mean Corpuscular Hemoglobin 29.8 PG (27.0-31.0) Mean Corpuscular Hemoglobin Concent 33.5 G/DL (32.0-36.0) Red Cell Distribution Width 13.5 % (11.6-14.8) Platelet Count 432 K/UL (150-450) Mean Platelet Volume 5.2 FL (6.5-10.1) L Neutrophils (%) (Auto) % (45.0-75.0) Lymphocytes (%) (Auto) % (20.0-45.0) Monocytes (%) (Auto) % (1.0-10.0) Eosinophils (%) (Auto) % (0.0-3.0) Basophils (%) (Auto) % (0.0-2.0) Prothrombin Time 12.1 SEC (9.30-11.50) H Prothromb Time International Ratio 1.2 (0.9-1.1) H Activated Partial Thromboplast Time 38 SEC (23-33) H Sodium Level 142 MMOL/L (136-145) Potassium Level 3.1 MMOL/L (3.5-5.1) L Chloride Level 113 MMOL/L (98-107) H Carbon Dioxide Level 19 MMOL/L (21-32) L Anion Gap 10 mmol/L (5-15) Blood Urea Nitrogen 6 mg/dL (7-18) L Creatinine 1.4 MG/DL (0.55-1.30) H Estimat Glomerular Filtration Rate 51.7 mL/min (>60) Glucose Level 168 MG/DL (74-106) H Calcium Level 6.9 MG/DL (8.5-10.1) L Phosphorus Level 2.3 MG/DL (2.5-4.9) L Magnesium Level 1.6 MG/DL (1.8-2.4) L Total Bilirubin 0.5 MG/DL (0.2-1.0) Aspartate Amino Transf (AST/SGOT) 21 U/L (15-37) Alanine Aminotransferase (ALT/SGPT) 17 U/L (12-78) Alkaline Phosphatase 76 U/L (46-116) Total Protein 5.1 G/DL (6.4-8.2) L Albumin 1.2 G/DL (3.4-5.0) L Globulin 3.9 g/dL Albumin/Globulin Ratio 0.3 (1.0-2.7) L Objective HEENT: Orally intubated. LUNGS: Coarse rhonchi. CARDIOVASCULAR: Tachycardic S1 and S2. ABDOMEN: G-tube connected to suction. EXTREMITIES: No pitting edema. Jasbir Madsen MD Sep 17, 2018 10:16
--- NOTE | 2018-09-17 11:21 | Diagnostic Imaging Report ---
Indication: Dyspnea Comparison: 09/16/2018 A single view chest radiograph was obtained. Findings: Tubes and lines are stable. Heart size is stable. Basilar infiltrates and/or atelectasis suspected. Pleural effusion suspected bilaterally. IMPRESSION: No change from the prior day
[2018-09-17] MEDS: D5NS 1,000 ML IV SCH (11:35)
--- NOTE | 2018-09-17 12:50 | General Progress Note ---
Assessment/Plan Problem List: (1) UTI (urinary tract infection) ICD Codes: N39.0 - Urinary tract infection, site not specified SNOMED: 61047203 (2) Renal failure ICD Codes: N19 - Unspecified kidney failure SNOMED: 34576461 (3) Anemia ICD Codes: D64.9 - Anemia, unspecified SNOMED: 641573393 (4) Acute respiratory failure ICD Codes: J96.00 - Acute respiratory failure, unspecified whether with hypoxia or hypercapnia SNOMED: 10929543 (5) Pneumonia ICD Codes: J18.9 - Pneumonia, unspecified organism SNOMED: 357721416 (6) Septic shock ICD Codes: A41.9 - Sepsis, unspecified organism; R65.21 - Severe sepsis with septic shock SNOMED: 84802989 (7) ATN (acute tubular necrosis) ICD Codes: N17.0 - Acute kidney failure with tubular necrosis SNOMED: 69253096 Status: unchanged Assessment/Plan vent abx wound care neph f/u gi eval cbc bmp am ltach eval Subjective Constitutional: Reports: weakness Allergies: Coded Allergies: No Known Allergies (Unverified , 08/14/18) All Systems: reviewed and negative except above Subjective intubated sedated in icu Objective Last 24 Hour Vital Signs Date Time Temp Pulse Resp B/P (MAP) Pulse Ox O2 Delivery O2 Flow Rate FiO2 09/17/18 12:00 30 09/17/18 12:00 93 09/17/18 12:00 Mechanical Ventilator Mechanical Ventilator 09/17/18 12:00 90 14 123/75 100 Mechanical Ventilator 30 09/17/18 11:00 87 15 30 09/17/18 11:00 90 14 131/80 100 Mechanical Ventilator 30 09/17/18 10:00 86 16 117/73 100 Mechanical Ventilator 30 09/17/18 09:00 94 19 120/74 100 Mechanical Ventilator 30 09/17/18 08:43 90 15 30 09/17/18 08:15 87 14 30 09/17/18 08:00 30 09/17/18 08:00 Mechanical Ventilator Mechanical Ventilator 09/17/18 08:00 99.2 94 16 123/71 100 Mechanical Ventilator 30 09/17/18 08:00 85 09/17/18 07:00 112 16 115/71 100 Mechanical Ventilator 30 09/17/18 06:00 95 20 117/64 100 Mechanical Ventilator 30 09/17/18 05:16 89 16 30 09/17/18 05:00 84 13 119/74 100 Mechanical Ventilator 30 09/17/18 04:11 86 09/17/18 04:00 98.6 83 15 125/75 100 Mechanical Ventilator 30 09/17/18 04:00 Mechanical Ventilator Mechanical Ventilator 09/17/18 04:00 30 09/17/18 03:00 83 15 116/67 100 Mechanical Ventilator 30 09/17/18 02:47 81 20 30 09/17/18 02:00 86 15 130/75 100 Mechanical Ventilator 30 09/17/18 01:29 91 18 30 09/17/18 01:00 89 22 109/81 100 Mechanical Ventilator 30 09/17/18 00:00 Mechanical Ventilator Mechanical Ventilator 09/17/18 00:00 30 09/17/18 00:00 99.9 82 14 108/67 100 Mechanical Ventilator 30 09/16/18 23:44 76 09/16/18 23:02 83 15 30 09/16/18 23:00 89 12 111/67 100 Mechanical Ventilator 30 09/16/18 22:00 96 18 102/68 100 Mechanical Ventilator 30 09/16/18 21:10 86 16 30 09/16/18 21:00 89 16 114/70 100 Mechanical Ventilator 30 09/16/18 20:31 117/76 09/16/18 20:15 88 09/16/18 20:00 Mechanical Ventilator Mechanical Ventilator 09/16/18 20:00 30 09/16/18 20:00 99.8 87 14 117/76 100 Mechanical Ventilator 30 09/16/18 19:26 87 15 30 09/16/18 19:00 92 13 119/77 100 Mechanical Ventilator 35 09/16/18 18:00 89 13 115/89 100 Mechanical Ventilator 35 09/16/18 17:00 81 13 112/68 100 Mechanical Ventilator 35 09/16/18 16:46 91 16 30 09/16/18 16:00 81 09/16/18 16:00 30 09/16/18 16:00 Mechanical Ventilator Mechanical Ventilator 09/16/18 16:00 99.8 81 13 119/70 100 Mechanical Ventilator 35 09/16/18 15:00 81 13 116/70 100 Mechanical Ventilator 35 09/16/18 14:45 81 12 30 09/16/18 14:00 81 13 121/83 100 Mechanical Ventilator 35 09/16/18 13:00 82 13 119/73 100 Mechanical Ventilator 35 Intake and Output 09/16/18 09/17/18 19:00 07:00 Intake Total 600 ml 936.5 ml Output Total 590 ml 935 ml Balance 10 ml 1.5 ml IV Total 600 ml 856.5 ml Other 80 ml Output Urine Total 510 ml 705 ml Stool Total 200 ml Gastric Drainage Total 30 ml Emesis 80 ml Laboratory Tests 09/17/18 04:00: White Blood Count 8.2, Red Blood Count 3.74L, Hemoglobin 11.1L, Hematocrit 33.2L , Mean Corpuscular Volume 89, Mean Corpuscular Hemoglobin 29.8, Mean Corpuscular Hemoglobin Concent 33.5, Red Cell Distribution Width 13.5, Platelet Count 432, Mean Platelet Volume 5.2L, Neutrophils (%) (Auto) , Lymphocytes (%) ( Auto) , Monocytes (%) (Auto) , Eosinophils (%) (Auto) , Basophils (%) (Auto) , Prothrombin Time 12.1H, Prothromb Time International Ratio 1.2H, Activated Partial Thromboplast Time 38H, Sodium Level 142, Potassium Level 3.1L, Chloride Level 113H, Carbon Dioxide Level 19L, Anion Gap 10, Blood Urea Nitrogen 6L, Creatinine 1.4H, Estimat Glomerular Filtration Rate 51.7, Glucose Level 168H, Calcium Level 6.9L, Phosphorus Level 2.3L, Magnesium Level 1.6L, Total Bilirubin 0.5, Aspartate Amino Transf (AST/SGOT) 21, Alanine Aminotransferase ( ALT/SGPT) 17, Alkaline Phosphatase 76, Total Protein 5.1L, Albumin 1.2L, Globulin 3.9, Albumin/Globulin Ratio 0.3L 09/17/18 11:15: Arterial Blood pH 7.409, Arterial Blood Partial Pressure CO2 21.6*L, Arterial Blood Partial Pressure O2 111.5H, Arterial Blood HCO3 13.4*L, Arterial Blood Oxygen Saturation 97.7, Arterial Blood Base Excess -9.4*L, Harvey Test Positive Height (Feet): 5 Height (Inches): 6.00 Weight (Pounds): 124 General Appearance: lethargic EENT: normal ENT inspection Neck: normal alignment Cardiovascular: normal peripheral pulses, normal rate, regular rhythm Respiratory/Chest: chest wall non-tender, lungs clear, normal breath sounds Abdomen: normal bowel sounds, non tender, soft Extremities: normal inspection Edema: no edema noted Arm (L), no edema noted Arm (R), no edema noted Leg (L), no edema noted Leg (R), no edema noted Pedal (L), no edema noted Pedal (R), no edema noted Generalized Neurologic: motor weakness Skin: normal pigmentation, warm/dry Jasmeet Reynoso DO Sep 17, 2018 12:50
--- NOTE | 2018-09-17 13:35 | GI Progress Note ---
Assessment/Plan Problems: (1) G tube feedings ICD Codes: Z93.1 - Gastrostomy status SNOMED: 380562699, 420269379 (2) Protein-calorie malnutrition, severe ICD Codes: E43 - Unspecified severe protein-calorie malnutrition SNOMED: 169267130 (3) Anemia ICD Codes: D64.9 - Anemia, unspecified SNOMED: 154041511 (4) GI bleed ICD Codes: K92.2 - Gastrointestinal hemorrhage, unspecified SNOMED: 49537009 Status: stable Status Narrative Discussed with Dr. Horton. Assessment/Plan cdiff negative OB stool negative GT to LIS with noted bloody output KUB taken, pending final read EGD scheduled tomorrow, MD to consent necessity. - NPO @ MN. add additional OB stool prn transfusion ppi erythromycin GT for GI motility fu labs The patient was seen and examined at bedside and all new and available data was reviewed in the patients chart. I agree with the above findings, impression and plan. (Patient seen earlier today. Signature stamp does not reflect patient encounter time.). - Arthur Horton MD Subjective Subjective limited Objective Last 24 Hour Vital Signs Date Time Temp Pulse Resp B/P (MAP) Pulse Ox O2 Delivery O2 Flow Rate FiO2 09/17/18 13:14 104 25 30 09/17/18 13:00 99.4 103 16 124/81 100 Mechanical Ventilator 30 09/17/18 12:00 30 09/17/18 12:00 93 09/17/18 12:00 90 09/17/18 12:00 Mechanical Ventilator Mechanical Ventilator 09/17/18 12:00 90 14 123/75 100 Mechanical Ventilator 30 09/17/18 11:00 87 15 30 09/17/18 11:00 90 14 131/80 100 Mechanical Ventilator 30 09/17/18 10:00 86 16 117/73 100 Mechanical Ventilator 30 09/17/18 09:00 94 19 120/74 100 Mechanical Ventilator 30 09/17/18 08:43 90 15 30 09/17/18 08:15 87 14 30 09/17/18 08:00 30 09/17/18 08:00 Mechanical Ventilator Mechanical Ventilator 09/17/18 08:00 99.2 94 16 123/71 100 Mechanical Ventilator 30 09/17/18 08:00 85 09/17/18 07:00 112 16 115/71 100 Mechanical Ventilator 30 09/17/18 06:00 95 20 117/64 100 Mechanical Ventilator 30 09/17/18 05:16 89 16 30 09/17/18 05:00 84 13 119/74 100 Mechanical Ventilator 30 09/17/18 04:11 86 09/17/18 04:00 98.6 83 15 125/75 100 Mechanical Ventilator 30 09/17/18 04:00 Mechanical Ventilator Mechanical Ventilator 09/17/18 04:00 30 09/17/18 03:00 83 15 116/67 100 Mechanical Ventilator 30 09/17/18 02:47 81 20 30 09/17/18 02:00 86 15 130/75 100 Mechanical Ventilator 30 09/17/18 01:29 91 18 30 09/17/18 01:00 89 22 109/81 100 Mechanical Ventilator 30 09/17/18 00:00 Mechanical Ventilator Mechanical Ventilator 09/17/18 00:00 30 09/17/18 00:00 99.9 82 14 108/67 100 Mechanical Ventilator 30 09/16/18 23:44 76 09/16/18 23:02 83 15 30 09/16/18 23:00 89 12 111/67 100 Mechanical Ventilator 30 09/16/18 22:00 96 18 102/68 100 Mechanical Ventilator 30 09/16/18 21:10 86 16 30 09/16/18 21:00 89 16 114/70 100 Mechanical Ventilator 30 09/16/18 20:31 117/76 09/16/18 20:15 88 09/16/18 20:00 Mechanical Ventilator Mechanical Ventilator 09/16/18 20:00 30 09/16/18 20:00 99.8 87 14 117/76 100 Mechanical Ventilator 30 09/16/18 19:26 87 15 30 09/16/18 19:00 92 13 119/77 100 Mechanical Ventilator 35 09/16/18 18:00 89 13 115/89 100 Mechanical Ventilator 35 09/16/18 17:00 81 13 112/68 100 Mechanical Ventilator 35 09/16/18 16:46 91 16 30 09/16/18 16:00 81 09/16/18 16:00 30 09/16/18 16:00 Mechanical Ventilator Mechanical Ventilator 09/16/18 16:00 99.8 81 13 119/70 100 Mechanical Ventilator 35 09/16/18 15:00 81 13 116/70 100 Mechanical Ventilator 35 09/16/18 14:45 81 12 30 09/16/18 14:00 81 13 121/83 100 Mechanical Ventilator 35 Intake and Output 09/16/18 09/17/18 19:00 07:00 Intake Total 600 ml 936.5 ml Output Total 590 ml 935 ml Balance 10 ml 1.5 ml IV Total 600 ml 856.5 ml Other 80 ml Output Urine Total 510 ml 705 ml Stool Total 200 ml Gastric Drainage Total 30 ml Emesis 80 ml Laboratory Tests Test 09/17/18 04:00 09/17/18 11:15 09/17/18 12:00 White Blood Count 8.2 K/UL (4.8-10.8) Red Blood Count 3.74 M/UL (4.70-6.10) L Hemoglobin 11.1 G/DL (14.2-18.0) L Hematocrit 33.2 % (42.0-52.0) L Mean Corpuscular Volume 89 FL (80-99) Mean Corpuscular Hemoglobin 29.8 PG (27.0-31.0) Mean Corpuscular Hemoglobin Concent 33.5 G/DL (32.0-36.0) Red Cell Distribution Width 13.5 % (11.6-14.8) Platelet Count 432 K/UL (150-450) Mean Platelet Volume 5.2 FL (6.5-10.1) L Neutrophils (%) (Auto) % (45.0-75.0) Lymphocytes (%) (Auto) % (20.0-45.0) Monocytes (%) (Auto) % (1.0-10.0) Eosinophils (%) (Auto) % (0.0-3.0) Basophils (%) (Auto) % (0.0-2.0) Prothrombin Time 12.1 SEC (9.30-11.50) H Prothromb Time International Ratio 1.2 (0.9-1.1) H Activated Partial Thromboplast Time 38 SEC (23-33) H Sodium Level 142 MMOL/L (136-145) Potassium Level 3.1 MMOL/L (3.5-5.1) L Chloride Level 113 MMOL/L (98-107) H Carbon Dioxide Level 19 MMOL/L (21-32) L Anion Gap 10 mmol/L (5-15) Blood Urea Nitrogen 6 mg/dL (7-18) L Creatinine 1.4 MG/DL (0.55-1.30) H Estimat Glomerular Filtration Rate 51.7 mL/min (>60) Glucose Level 168 MG/DL (74-106) H Calcium Level 6.9 MG/DL (8.5-10.1) L Phosphorus Level 2.3 MG/DL (2.5-4.9) L Magnesium Level 1.6 MG/DL (1.8-2.4) L Total Bilirubin 0.5 MG/DL (0.2-1.0) Aspartate Amino Transf (AST/SGOT) 21 U/L (15-37) Alanine Aminotransferase (ALT/SGPT) 17 U/L (12-78) Alkaline Phosphatase 76 U/L (46-116) Total Protein 5.1 G/DL (6.4-8.2) L Albumin 1.2 G/DL (3.4-5.0) L Globulin 3.9 g/dL Albumin/Globulin Ratio 0.3 (1.0-2.7) L Arterial Blood pH 7.409 (7.350-7.450) Arterial Blood Partial Pressure CO2 21.6 mmHg (35.0-45.0) *L Arterial Blood Partial Pressure O2 111.5 mmHg (75.0-100.0) H Arterial Blood HCO3 13.4 mmol/L (22.0-26.0) *L Arterial Blood Oxygen Saturation 97.7 % (95-100) Arterial Blood Base Excess -9.4 (-2-2) *L Harvey Test Positive Stool Occult Blood Pending Height (Feet): 5 Height (Inches): 6.00 Weight (Pounds): 124 General Appearance: no apparent distress Cardiovascular: normal rate Respiratory/Chest: normal breath sounds, no respiratory distress Abdominal Exam: normal bowel sounds, non tender, soft, GT site - c/d/i Extremities: non-tender Becki Holt NP Sep 17, 2018 13:35
--- NOTE | 2018-09-17 15:10 | Nephrology Progress Note ---
Assessment/Plan Problem List: (1) ATN (acute tubular necrosis) (2) Septic shock (3) Lactic acid acidosis (4) Metabolic acidosis (5) Hyperkalemia (6) G tube feedings (7) Acute respiratory failure Assessment over all improved: cr wnl presented with Shock , likely septic Acute renal failure resolved Acute metabolic acidosis resolved Hyperkalemia PEG Recent Pneumonia Plan plan: midodrine as needed pulmonary support Fluid challenge as needed Silva K and Phos and Mag supplement as needed antibiotics monitor renal parameters and ABG Subjective ROS Limited/Unobtainable: Yes Objective Objective Last 24 Hour Vital Signs Date Time Temp Pulse Resp B/P (MAP) Pulse Ox O2 Delivery O2 Flow Rate FiO2 09/17/18 14:00 97 14 132/82 100 Mechanical Ventilator 30 09/17/18 13:14 104 25 30 09/17/18 13:00 99.4 103 16 124/81 100 Mechanical Ventilator 30 09/17/18 12:00 30 09/17/18 12:00 93 09/17/18 12:00 90 09/17/18 12:00 Mechanical Ventilator Mechanical Ventilator 09/17/18 12:00 90 14 123/75 100 Mechanical Ventilator 30 09/17/18 11:00 87 15 30 09/17/18 11:00 90 14 131/80 100 Mechanical Ventilator 30 09/17/18 10:00 86 16 117/73 100 Mechanical Ventilator 30 09/17/18 09:00 94 19 120/74 100 Mechanical Ventilator 30 09/17/18 08:43 90 15 30 09/17/18 08:15 87 14 30 09/17/18 08:00 30 09/17/18 08:00 Mechanical Ventilator Mechanical Ventilator 09/17/18 08:00 99.2 94 16 123/71 100 Mechanical Ventilator 30 09/17/18 08:00 85 09/17/18 07:00 112 16 115/71 100 Mechanical Ventilator 30 09/17/18 06:00 95 20 117/64 100 Mechanical Ventilator 30 09/17/18 05:16 89 16 30 09/17/18 05:00 84 13 119/74 100 Mechanical Ventilator 30 09/17/18 04:11 86 09/17/18 04:00 98.6 83 15 125/75 100 Mechanical Ventilator 30 09/17/18 04:00 Mechanical Ventilator Mechanical Ventilator 09/17/18 04:00 30 09/17/18 03:00 83 15 116/67 100 Mechanical Ventilator 30 09/17/18 02:47 81 20 30 09/17/18 02:00 86 15 130/75 100 Mechanical Ventilator 30 09/17/18 01:29 91 18 30 09/17/18 01:00 89 22 109/81 100 Mechanical Ventilator 30 09/17/18 00:00 Mechanical Ventilator Mechanical Ventilator 09/17/18 00:00 30 09/17/18 00:00 99.9 82 14 108/67 100 Mechanical Ventilator 30 09/16/18 23:44 76 09/16/18 23:02 83 15 30 09/16/18 23:00 89 12 111/67 100 Mechanical Ventilator 30 09/16/18 22:00 96 18 102/68 100 Mechanical Ventilator 30 09/16/18 21:10 86 16 30 09/16/18 21:00 89 16 114/70 100 Mechanical Ventilator 30 09/16/18 20:31 117/76 09/16/18 20:15 88 09/16/18 20:00 Mechanical Ventilator Mechanical Ventilator 09/16/18 20:00 30 09/16/18 20:00 99.8 87 14 117/76 100 Mechanical Ventilator 30 09/16/18 19:26 87 15 30 09/16/18 19:00 92 13 119/77 100 Mechanical Ventilator 35 09/16/18 18:00 89 13 115/89 100 Mechanical Ventilator 35 09/16/18 17:00 81 13 112/68 100 Mechanical Ventilator 35 09/16/18 16:46 91 16 30 09/16/18 16:00 81 09/16/18 16:00 30 09/16/18 16:00 Mechanical Ventilator Mechanical Ventilator 09/16/18 16:00 99.8 81 13 119/70 100 Mechanical Ventilator 35 Intake and Output 09/16/18 09/17/18 19:00 07:00 Intake Total 600 ml 936.5 ml Output Total 590 ml 935 ml Balance 10 ml 1.5 ml IV Total 600 ml 856.5 ml Other 80 ml Output Urine Total 510 ml 705 ml Stool Total 200 ml Gastric Drainage Total 30 ml Emesis 80 ml Laboratory Tests 09/17/18 04:00: White Blood Count 8.2, Red Blood Count 3.74L, Hemoglobin 11.1L, Hematocrit 33.2L , Mean Corpuscular Volume 89, Mean Corpuscular Hemoglobin 29.8, Mean Corpuscular Hemoglobin Concent 33.5, Red Cell Distribution Width 13.5, Platelet Count 432, Mean Platelet Volume 5.2L, Neutrophils (%) (Auto) , Lymphocytes (%) ( Auto) , Monocytes (%) (Auto) , Eosinophils (%) (Auto) , Basophils (%) (Auto) , Prothrombin Time 12.1H, Prothromb Time International Ratio 1.2H, Activated Partial Thromboplast Time 38H, Sodium Level 142, Potassium Level 3.1L, Chloride Level 113H, Carbon Dioxide Level 19L, Anion Gap 10, Blood Urea Nitrogen 6L, Creatinine 1.4H, Estimat Glomerular Filtration Rate 51.7, Glucose Level 168H, Calcium Level 6.9L, Phosphorus Level 2.3L, Magnesium Level 1.6L, Total Bilirubin 0.5, Aspartate Amino Transf (AST/SGOT) 21, Alanine Aminotransferase ( ALT/SGPT) 17, Alkaline Phosphatase 76, Total Protein 5.1L, Albumin 1.2L, Globulin 3.9, Albumin/Globulin Ratio 0.3L 09/17/18 11:15: Arterial Blood pH 7.409, Arterial Blood Partial Pressure CO2 21.6*L, Arterial Blood Partial Pressure O2 111.5H, Arterial Blood HCO3 13.4*L, Arterial Blood Oxygen Saturation 97.7, Arterial Blood Base Excess -9.4*L, Harvey Test Positive 09/17/18 12:00: Stool Occult Blood [Pending] Height (Feet): 5 Height (Inches): 6.00 Weight (Pounds): 124 General Appearance: no apparent distress Cardiovascular: tachycardia Respiratory/Chest: decreased breath sounds Abdomen: distended Josesito Smalls MD Sep 17, 2018 15:10
[2018-09-17] MEDS ORDERED: Potassium Phosphate 20 MM in NS 275 ML IV SCH (17:00)
[2018-09-17] MEDS: Dyna-Hex 2% Top Sol 2oz TOPIC SCH (19:43)
--- NOTE | 2018-09-17 20:00 | Progress Note ---
DATE: 09/17/2018 SUBJECTIVE: I assessed this patient in the ICU. This is a male patient. He is not really able to communicate verbally on interview, but he does have overlying history of paranoid schizophrenia and he does have some mood lability and slight psychomotor agitation so his attending has requested daily psychiatric consultation. MENTAL STATUS EXAMINATION: This is a 62-year-old male. Appearance is disheveled. Attitude, irritable and agitated. Affect flat. Thought process, disorganized. Thought content, paranoid delusions. Insight and judgment poor. DIAGNOSIS: Paranoid schizophrenia acute exacerbation, rule out depression with psychotic features. PLAN: Treat with Risperdal 0.25 mg at bedtime. I am also going to add Ativan 1 mg every six hours p.r.n. anxiety and agitation. Continue to be followed by Psychiatry to improve his cognition and to try to prevent any further decline in his cognition. Chart reviewed. Discussed with staff. Seen and assessed at bedside. Virgie Mcdermott M.D. DR: Gerri JOB#: [id number] CC:
[2018-09-17] MEDS: Norepinephrine Bitartrate 8 MG in D5W 500ml 550 ML IV SCH (21:00)
[2018-09-18] VITALS (23 sets, daily range): BP systolic 98–140; BP diastolic 62–81
[2018-09-18] MEDS: Piperacillin/Tazobactam 3.375 GM in D5W 110 ML IVPB SCH ×3 (05:30→21:36)
[2018-09-18] MEDS: Erythromycin Ethylsuccinate 200mg/5ml Susp GT SCH ×5 (05:30→23:34)
[2018-09-18] MEDS: NovoLOG Insulin Flexpen SUBQ SCH ×5 (05:31→23:34)
[2018-09-18 05:50] LABS: HEMATOCRIT 31.3 % (42.0-52.0); HEMOGLOBIN 10.4 G/DL (14.2-18.0); MEAN CORPUSCULAR VOLUME 89 FL (80-99); PLATELET COUNT 464 K/UL (150-450); RED BLOOD COUNT 3.53 M/UL (4.70-6.10); RED CELL DISTRIBUTION WIDTH 13.6 % (11.6-14.8); WHITE BLOOD COUNT 7.8 K/UL (4.8-10.8)
[2018-09-18 06:04] LABS: INR 1.2 (0.9-1.1)
[2018-09-18 06:25] LABS: ALANINE AMINOTRANSFERASE 16 U/L (12-78); ALBUMIN 1.2 G/DL (3.4-5.0); ALBUMIN/GLOBULIN RATIO 0.3 (1.0-2.7); ALKALINE PHOSPHATASE 76 U/L (46-116); ANION GAP 12 mmol/L (5-15); ASPARTATE AMINO TRANSFERASE 19 U/L (15-37); BILIRUBIN,TOTAL 0.4 MG/DL (0.2-1.0); BLOOD UREA NITROGEN 4 mg/dL (7-18); CALCIUM 6.8 MG/DL (8.5-10.1); CARBON DIOXIDE 17 MMOL/L (21-32); CHLORIDE 114 MMOL/L (98-107); CREATININE 1.4 MG/DL (0.55-1.30); PHOSPHORUS 2.8 MG/DL (2.5-4.9); POTASSIUM 3.6 MMOL/L (3.5-5.1); SODIUM 143 MMOL/L (136-145)
--- NOTE | 2018-09-18 07:27 | Anethesia Preoperative Eval ---
Anesthesia Pre-op PMH/ROS General Date of Evaluation: Sep 18, 2018 Time of Evaluation: 07:27 Anesthesiologist: anton ASA Score: ASA 4 Mallampati Score Class I : Soft palate, uvula, fauces, pillars visible Class II: Soft palate, uvula, fauces visible Class III: Soft palate, base of uvula visible Class IV: Only hard plate visible Mallampati Classification: Class IV Surgeon: anahi Diagnosis: gi bleed Surgical Procedure: egd Anesthesia History: none Family History: no anesthesia problems Allergies: Coded Allergies: No Known Allergies (Unverified , 08/14/18) Medications: see eMAR Patient NPO?: Yes Past Medical History Cardiovascular: Reports: HTN Pulmonary: Reports: COPD, other - pneumonia Gastrointestinal/Genitourinary: Reports: GERD, other - dysphagia Neurologic/Psychiatric: Reports: other - quadriplegia, weakness Endocrine: Reports: DM Hematology/Immune: Reports: anemia Anesthesia Pre-op Phys. Exam Physician Exam Last Vital Signs Date Time Temp Pulse Resp B/P (MAP) Pulse Ox O2 Delivery O2 Flow Rate FiO2 09/18/18 07:00 88 16 116/71 99 Mechanical Ventilator 30 09/18/18 04:00 99.3 Constitutional: NAD Neurologic: other - functional quadriplegia Cardiovascular: RRR Respiratory: other - oett Gastrointestinal: other - g-tube Airway Exam Mallampati Score: Class IV MO: limited Neck: flexible TMD: 2fb ROM: limited Anesthesia Pre-op A/P Labs Hematology Test 09/18/18 04:45 White Blood Count 7.8 K/UL (4.8-10.8) Red Blood Count 3.53 M/UL (4.70-6.10) L Hemoglobin 10.4 G/DL (14.2-18.0) L Hematocrit 31.3 % (42.0-52.0) L Mean Corpuscular Volume 89 FL (80-99) Mean Corpuscular Hemoglobin 29.6 PG (27.0-31.0) Mean Corpuscular Hemoglobin Concent 33.3 G/DL (32.0-36.0) Red Cell Distribution Width 13.6 % (11.6-14.8) Platelet Count 464 K/UL (150-450) H Mean Platelet Volume 5.3 FL (6.5-10.1) L Neutrophils (%) (Auto) % (45.0-75.0) Lymphocytes (%) (Auto) % (20.0-45.0) Monocytes (%) (Auto) % (1.0-10.0) Eosinophils (%) (Auto) % (0.0-3.0) Basophils (%) (Auto) % (0.0-2.0) Neutrophils % (Manual) Pending Lymphocytes % (Manual) Pending Platelet Estimate Pending Platelet Morphology Pending Coagulation Test 09/18/18 04:45 Prothrombin Time 12.7 SEC (9.30-11.50) H Prothromb Time International Ratio 1.2 (0.9-1.1) H Activated Partial Thromboplast Time 39 SEC (23-33) H Chemistry Test 09/18/18 04:45 Sodium Level 143 MMOL/L (136-145) Potassium Level 3.6 MMOL/L (3.5-5.1) Chloride Level 114 MMOL/L (98-107) H Carbon Dioxide Level 17 MMOL/L (21-32) L Anion Gap 12 mmol/L (5-15) Blood Urea Nitrogen 4 mg/dL (7-18) L Creatinine 1.4 MG/DL (0.55-1.30) H Estimat Glomerular Filtration Rate 51.7 mL/min (>60) Glucose Level 144 MG/DL (74-106) H Calcium Level 6.8 MG/DL (8.5-10.1) L Phosphorus Level 2.8 MG/DL (2.5-4.9) Magnesium Level 1.8 MG/DL (1.8-2.4) Total Bilirubin 0.4 MG/DL (0.2-1.0) Aspartate Amino Transf (AST/SGOT) 19 U/L (15-37) Alanine Aminotransferase (ALT/SGPT) 16 U/L (12-78) Alkaline Phosphatase 76 U/L (46-116) Total Protein 5.2 G/DL (6.4-8.2) L Albumin 1.2 G/DL (3.4-5.0) L Globulin 4.0 g/dL Albumin/Globulin Ratio 0.3 (1.0-2.7) L Risk Assessment & Plan Assessment: asa4 Plan: mac Status Change Before Surgery: No Pre-Antibiotics Drug: Samira Forrest MD Sep 18, 2018 07:27
[2018-09-18] MEDS: D5NS 1,000 ML IV SCH (08:28)
[2018-09-18] MEDS: Heparin 5000 units/ml inj SUBQ SCH ×2 (09:00→21:09)
--- NOTE | 2018-09-18 09:02 | Pulmonolgy Critical Care Note ---
Critical Care - Asmt/Plan Problems: (1) Septic shock (2) ATN (acute tubular necrosis) (3) Hyperkalemia (4) Metabolic acidosis Respiratory: monitor respiratory rate, adjust FIO2, CXR Cardiac: continue to monitor HR/BP Renal: F/U I&O, keep IV fluid Infectious Disease: check cultures Gastrointestinal: continue feedings/current rate Endocrine: monitor blood sugar, check HgA1C Hematologic: monitor H/H, transfuse if hgb<8.5 Neurologic: PRN Morphine, keep patient comfortable Prophylaxis: Protonix Disposition: keep in ICU Time Spent (Minutes): 30 Notes Reviewed: cattle dehorner, cardio, renal Discussed with: nurses, consultants, case operatoremail operations manager - Objective Last 24 Hour Vital Signs Date Time Temp Pulse Resp B/P (MAP) Pulse Ox O2 Delivery O2 Flow Rate FiO2 09/18/18 07:00 88 16 116/71 99 Mechanical Ventilator 30 09/18/18 06:50 85 14 30 09/18/18 06:00 87 12 113/73 100 Mechanical Ventilator 30 09/18/18 05:09 99 14 30 09/18/18 05:00 97 12 121/73 100 Mechanical Ventilator 30 09/18/18 04:00 99.3 98 20 121/75 100 Mechanical Ventilator 30 09/18/18 04:00 Mechanical Ventilator Mechanical Ventilator 09/18/18 04:00 30 09/18/18 04:00 98 09/18/18 03:45 97 20 30 09/18/18 03:00 90 16 140/75 100 Mechanical Ventilator 30 09/18/18 02:07 93 14 30 09/18/18 02:00 90 13 120/79 100 Mechanical Ventilator 30 09/18/18 01:00 85 13 126/80 100 Mechanical Ventilator 30 09/18/18 00:00 99.8 92 17 119/81 100 Mechanical Ventilator 30 09/18/18 00:00 Mechanical Ventilator Mechanical Ventilator 09/17/18 23:59 90 09/17/18 23:19 88 14 30 09/17/18 23:00 89 15 117/74 100 Mechanical Ventilator 30 09/17/18 22:06 87 14 30 09/17/18 22:00 87 12 119/71 100 Mechanical Ventilator 30 09/17/18 21:00 91 12 111/69 100 Mechanical Ventilator 30 09/17/18 21:00 111/69 09/17/18 20:07 92 2/7/19 20:00 98.5 96 13 99/63 100 Mechanical Ventilator 30 09/17/18 20:00 30 09/17/18 20:00 Mechanical Ventilator Mechanical Ventilator 09/17/18 19:45 99 15 30 09/17/18 19:00 94 17 105/68 100 Mechanical Ventilator 30 09/17/18 18:00 90 16 110/65 100 Mechanical Ventilator 30 09/17/18 17:00 96 17 117/70 100 Mechanical Ventilator 30 09/17/18 16:50 105 20 30 09/17/18 16:00 99.3 93 14 131/81 100 Mechanical Ventilator 30 09/17/18 16:00 90 09/17/18 16:00 30 09/17/18 16:00 Mechanical Ventilator Mechanical Ventilator 09/17/18 15:13 92 16 30 09/17/18 15:00 90 14 125/52 100 Mechanical Ventilator 30 09/17/18 14:00 97 14 132/82 100 Mechanical Ventilator 30 09/17/18 13:14 104 25 30 09/17/18 13:00 99.4 103 16 124/81 100 Mechanical Ventilator 30 09/17/18 12:00 30 09/17/18 12:00 93 09/17/18 12:00 90 09/17/18 12:00 Mechanical Ventilator Mechanical Ventilator 09/17/18 12:00 90 14 123/75 100 Mechanical Ventilator 30 09/17/18 11:00 87 15 30 09/17/18 11:00 90 14 131/80 100 Mechanical Ventilator 30 09/17/18 10:00 86 16 117/73 100 Mechanical Ventilator 30 Status: awake Condition: critical HEENT: atraumatic Neck: full ROM Heart: HR/BP stable, HR/BP unstable, regular Abdomen: non-tender, feeding tube Extremities: no C/C/E Decubiti: location Micro: Microbiology Date/Time Source Procedure Growth Status 09/17/18 03:47 Sputum Gram Stain - Final Resulted 09/17/18 03:47 Sputum Sputum Culture Pending Resulted Accucheck: 135 Critical Care - Subjective ROS Limited/Unobtainable: Yes Interval Events: awake, doing better Condition: critical EKG Rhythm: Sinus Rhythm FI02: 30 Vent Support Breath Rate: 12 Vent Support Mode: AC Vent Tidal Volume: 600 Sputum Amount: Small PEEP: 0.0 PIP: 21 Tube Feeding Amount: 30 I&O: Intake and Output 09/17/18 09/18/18 19:00 07:00 Intake Total 2270.444 ml 936.2227 ml Output Total 1190 ml 960 ml Balance 1080.444 ml -23.7773 ml Intake Free Water 120 ml IV Total 2150.444 ml 936.2227 ml Output Urine Total 890 ml 760 ml Stool Total 50 ml 150 ml Gastric Drainage Total 250 ml 50 ml CXR: no change ET-Tube: 7.5 ET Position: 23 Labs: Laboratory Tests Test 09/17/18 11:15 09/17/18 12:00 09/18/18 04:45 Arterial Blood pH 7.409 (7.350-7.450) Arterial Blood Partial Pressure CO2 21.6 mmHg (35.0-45.0) *L Arterial Blood Partial Pressure O2 111.5 mmHg (75.0-100.0) H Arterial Blood HCO3 13.4 mmol/L (22.0-26.0) *L Arterial Blood Oxygen Saturation 97.7 % (95-100) Arterial Blood Base Excess -9.4 (-2-2) *L Harvey Test Positive Stool Occult Blood Pending White Blood Count 7.8 K/UL (4.8-10.8) Red Blood Count 3.53 M/UL (4.70-6.10) L Hemoglobin 10.4 G/DL (14.2-18.0) L Hematocrit 31.3 % (42.0-52.0) L Mean Corpuscular Volume 89 FL (80-99) Mean Corpuscular Hemoglobin 29.6 PG (27.0-31.0) Mean Corpuscular Hemoglobin Concent 33.3 G/DL (32.0-36.0) Red Cell Distribution Width 13.6 % (11.6-14.8) Platelet Count 464 K/UL (150-450) H Mean Platelet Volume 5.3 FL (6.5-10.1) L Neutrophils (%) (Auto) % (45.0-75.0) Lymphocytes (%) (Auto) % (20.0-45.0) Monocytes (%) (Auto) % (1.0-10.0) Eosinophils (%) (Auto) % (0.0-3.0) Basophils (%) (Auto) % (0.0-2.0) Neutrophils % (Manual) Pending Lymphocytes % (Manual) Pending Platelet Estimate Pending Platelet Morphology Pending Prothrombin Time 12.7 SEC (9.30-11.50) H Prothromb Time International Ratio 1.2 (0.9-1.1) H Activated Partial Thromboplast Time 39 SEC (23-33) H Sodium Level 143 MMOL/L (136-145) Potassium Level 3.6 MMOL/L (3.5-5.1) Chloride Level 114 MMOL/L (98-107) H Carbon Dioxide Level 17 MMOL/L (21-32) L Anion Gap 12 mmol/L (5-15) Blood Urea Nitrogen 4 mg/dL (7-18) L Creatinine 1.4 MG/DL (0.55-1.30) H Estimat Glomerular Filtration Rate 51.7 mL/min (>60) Glucose Level 144 MG/DL (74-106) H Calcium Level 6.8 MG/DL (8.5-10.1) L Phosphorus Level 2.8 MG/DL (2.5-4.9) Magnesium Level 1.8 MG/DL (1.8-2.4) Total Bilirubin 0.4 MG/DL (0.2-1.0) Aspartate Amino Transf (AST/SGOT) 19 U/L (15-37) Alanine Aminotransferase (ALT/SGPT) 16 U/L (12-78) Alkaline Phosphatase 76 U/L (46-116) Total Protein 5.2 G/DL (6.4-8.2) L Albumin 1.2 G/DL (3.4-5.0) L Globulin 4.0 g/dL Albumin/Globulin Ratio 0.3 (1.0-2.7) L oP Li MD Sep 18, 2018 09:02
--- NOTE | 2018-09-18 09:27 | Pre-Procedure Note/Attestation ---
Pre-Procedure Note/Attestation Complete Prior to Procedure Planned Procedure: not applicable Procedure Narrative: egd Indications for Procedure Pre-Operative Diagnosis: gib Attestation I attest that I discussed the nature of the procedure; its benefits; risks and complications; and alternatives (and the risks and benefits of such alternatives ), prior to the procedure, with the patient (or the patient's legal payable representative). I attest that, if there was a reasonable possibility of needing a blood transfusion, the patient (or the patient's legal payable representative) was given the [facility] standardized written summary, pursuant to the Jasmeet Bry Blood Safety Act ([place] Health and Safety Code # 1645, as amended). I attest that I re-evaluated the patient just prior to the surgery and that there has been no change in the patient's H&P, except as documented below: Arthur Horton MD Sep 18, 2018 09:27
--- NOTE | 2018-09-18 09:29 | General Progress Note ---
Assessment/Plan Problem List: (1) G tube feedings ICD Codes: Z93.1 - Gastrostomy status SNOMED: 073788963, 914273496 (2) GI bleed ICD Codes: K92.2 - Gastrointestinal hemorrhage, unspecified SNOMED: 49677239 (3) Decubitus skin ulcer ICD Codes: L89.90 - Pressure ulcer of unspecified site, unspecified stage SNOMED: 925551493 (4) Anemia ICD Codes: D64.9 - Anemia, unspecified SNOMED: 620629928 (5) Acute respiratory failure ICD Codes: J96.00 - Acute respiratory failure, unspecified whether with hypoxia or hypercapnia SNOMED: 36769422 Assessment/Plan patient had fresh blood seen in his Gt drainage yesterday needs urgent EGD. no family available for consent but given active bleed will proceed with MD consent Subjective ROS Limited/Unobtainable: No Allergies: Coded Allergies: No Known Allergies (Unverified , 08/14/18) Objective Last 24 Hour Vital Signs Date Time Temp Pulse Resp B/P (MAP) Pulse Ox O2 Delivery O2 Flow Rate FiO2 09/18/18 09:15 89 14 30 09/18/18 07:00 88 16 116/71 99 Mechanical Ventilator 30 09/18/18 06:50 85 14 30 09/18/18 06:00 87 12 113/73 100 Mechanical Ventilator 30 09/18/18 05:09 99 14 30 09/18/18 05:00 97 12 121/73 100 Mechanical Ventilator 30 09/18/18 04:00 99.3 98 20 121/75 100 Mechanical Ventilator 30 09/18/18 04:00 Mechanical Ventilator Mechanical Ventilator 09/18/18 04:00 30 09/18/18 04:00 98 09/18/18 03:45 97 20 30 09/18/18 03:00 90 16 140/75 100 Mechanical Ventilator 30 09/18/18 02:07 93 14 30 09/18/18 02:00 90 13 120/79 100 Mechanical Ventilator 30 09/18/18 01:00 85 13 126/80 100 Mechanical Ventilator 30 09/18/18 00:00 99.8 92 17 119/81 100 Mechanical Ventilator 30 09/18/18 00:00 Mechanical Ventilator Mechanical Ventilator 09/17/18 23:59 90 09/17/18 23:19 88 14 30 09/17/18 23:00 89 15 117/74 100 Mechanical Ventilator 30 09/17/18 22:06 87 14 30 09/17/18 22:00 87 12 119/71 100 Mechanical Ventilator 30 09/17/18 21:00 91 12 111/69 100 Mechanical Ventilator 30 09/17/18 21:00 111/69 09/17/18 20:07 92 09/17/18 20:00 98.5 96 13 99/63 100 Mechanical Ventilator 30 09/17/18 20:00 30 09/17/18 20:00 Mechanical Ventilator Mechanical Ventilator 09/17/18 19:45 99 15 30 09/17/18 19:00 94 17 105/68 100 Mechanical Ventilator 30 09/17/18 18:00 90 16 110/65 100 Mechanical Ventilator 30 09/17/18 17:00 96 17 117/70 100 Mechanical Ventilator 30 09/17/18 16:50 105 20 30 09/17/18 16:00 99.3 93 14 131/81 100 Mechanical Ventilator 30 09/17/18 16:00 90 09/17/18 16:00 30 09/17/18 16:00 Mechanical Ventilator Mechanical Ventilator 09/17/18 15:13 92 16 30 09/17/18 15:00 90 14 125/52 100 Mechanical Ventilator 30 09/17/18 14:00 97 14 132/82 100 Mechanical Ventilator 30 09/17/18 13:14 104 25 30 09/17/18 13:00 99.4 103 16 124/81 100 Mechanical Ventilator 30 09/17/18 12:00 30 09/17/18 12:00 93 09/17/18 12:00 90 09/17/18 12:00 Mechanical Ventilator Mechanical Ventilator 09/17/18 12:00 90 14 123/75 100 Mechanical Ventilator 30 09/17/18 11:00 87 15 30 09/17/18 11:00 90 14 131/80 100 Mechanical Ventilator 30 09/17/18 10:00 86 16 117/73 100 Mechanical Ventilator 30 Intake and Output 09/17/18 09/18/18 19:00 07:00 Intake Total 2270.444 ml 936.2227 ml Output Total 1190 ml 960 ml Balance 1080.444 ml -23.7773 ml Intake Free Water 120 ml IV Total 2150.444 ml 936.2227 ml Output Urine Total 890 ml 760 ml Stool Total 50 ml 150 ml Gastric Drainage Total 250 ml 50 ml Laboratory Tests 09/17/18 11:15: Arterial Blood pH 7.409, Arterial Blood Partial Pressure CO2 21.6*L, Arterial Blood Partial Pressure O2 111.5H, Arterial Blood HCO3 13.4*L, Arterial Blood Oxygen Saturation 97.7, Arterial Blood Base Excess -9.4*L, Harvey Test Positive 09/17/18 12:00: Stool Occult Blood [Pending] 09/18/18 04:45: White Blood Count 7.8, Red Blood Count 3.53L, Hemoglobin 10.4L, Hematocrit 31.3L , Mean Corpuscular Volume 89, Mean Corpuscular Hemoglobin 29.6, Mean Corpuscular Hemoglobin Concent 33.3, Red Cell Distribution Width 13.6, Platelet Count 464H, Mean Platelet Volume 5.3L, Neutrophils (%) (Auto) , Lymphocytes (%) (Auto) , Monocytes (%) (Auto) , Eosinophils (%) (Auto) , Basophils (%) (Auto) , Neutrophils % (Manual) [Pending], Lymphocytes % (Manual) [Pending], Platelet Estimate [Pending], Platelet Morphology [Pending], Prothrombin Time 12.7H, Prothromb Time International Ratio 1.2H, Activated Partial Thromboplast Time 39H , Sodium Level 143, Potassium Level 3.6, Chloride Level 114H, Carbon Dioxide Level 17L, Anion Gap 12, Blood Urea Nitrogen 4L, Creatinine 1.4H, Estimat Glomerular Filtration Rate 51.7, Glucose Level 144H, Calcium Level 6.8L, Phosphorus Level 2.8, Magnesium Level 1.8, Total Bilirubin 0.4, Aspartate Amino Transf (AST/SGOT) 19, Alanine Aminotransferase (ALT/SGPT) 16, Alkaline Phosphatase 76, Total Protein 5.2L, Albumin 1.2L, Globulin 4.0, Albumin/ Globulin Ratio 0.3L Height (Feet): 5 Height (Inches): 5.00 Weight (Pounds): 124 General Appearance: lethargic EENT: normal ENT inspection Neck: supple Cardiovascular: normal rate Respiratory/Chest: decreased breath sounds Abdomen: normal bowel sounds, non tender, soft Extremities: non-tender Arthur Horton MD Sep 18, 2018 09:29
--- NOTE | 2018-09-18 09:34 | General Progress Note ---
Assessment/Plan Problem List: (1) UTI (urinary tract infection) ICD Codes: N39.0 - Urinary tract infection, site not specified SNOMED: 92956058 (2) Renal failure ICD Codes: N19 - Unspecified kidney failure SNOMED: 92844624 (3) Anemia ICD Codes: D64.9 - Anemia, unspecified SNOMED: 579908523 (4) Acute respiratory failure ICD Codes: J96.00 - Acute respiratory failure, unspecified whether with hypoxia or hypercapnia SNOMED: 55215968 (5) Pneumonia ICD Codes: J18.9 - Pneumonia, unspecified organism SNOMED: 540605697 (6) Septic shock ICD Codes: A41.9 - Sepsis, unspecified organism; R65.21 - Severe sepsis with septic shock SNOMED: 57725780 (7) ATN (acute tubular necrosis) ICD Codes: N17.0 - Acute kidney failure with tubular necrosis SNOMED: 06331083 Status: unchanged Assessment/Plan vent abx wound care neph f/u gi eval cbc bmp am ltach transfer Subjective Constitutional: Reports: weakness Allergies: Coded Allergies: No Known Allergies (Unverified , 08/14/18) All Systems: reviewed and negative except above Subjective intubated sedated in icu Objective Last 24 Hour Vital Signs Date Time Temp Pulse Resp B/P (MAP) Pulse Ox O2 Delivery O2 Flow Rate FiO2 09/18/18 09:23 101 15 30 09/18/18 09:20 136 46 30 09/18/18 09:15 89 14 30 09/18/18 07:00 88 16 116/71 99 Mechanical Ventilator 30 09/18/18 06:50 85 14 30 09/18/18 06:00 87 12 113/73 100 Mechanical Ventilator 30 09/18/18 05:09 99 14 30 09/18/18 05:00 97 12 121/73 100 Mechanical Ventilator 30 09/18/18 04:00 99.3 98 20 121/75 100 Mechanical Ventilator 30 09/18/18 04:00 Mechanical Ventilator Mechanical Ventilator 09/18/18 04:00 30 09/18/18 04:00 98 09/18/18 03:45 97 20 30 09/18/18 03:00 90 16 140/75 100 Mechanical Ventilator 30 09/18/18 02:07 93 14 30 09/18/18 02:00 90 13 120/79 100 Mechanical Ventilator 30 09/18/18 01:00 85 13 126/80 100 Mechanical Ventilator 30 09/18/18 00:00 99.8 92 17 119/81 100 Mechanical Ventilator 30 09/18/18 00:00 Mechanical Ventilator Mechanical Ventilator 09/17/18 23:59 90 09/17/18 23:19 88 14 30 09/17/18 23:00 89 15 117/74 100 Mechanical Ventilator 30 09/17/18 22:06 87 14 30 09/17/18 22:00 87 12 119/71 100 Mechanical Ventilator 30 09/17/18 21:00 91 12 111/69 100 Mechanical Ventilator 30 09/17/18 21:00 111/69 09/17/18 20:07 92 09/17/18 20:00 98.5 96 13 99/63 100 Mechanical Ventilator 30 09/17/18 20:00 30 09/17/18 20:00 Mechanical Ventilator Mechanical Ventilator 09/17/18 19:45 99 15 30 09/17/18 19:00 94 17 105/68 100 Mechanical Ventilator 30 09/17/18 18:00 90 16 110/65 100 Mechanical Ventilator 30 09/17/18 17:00 96 17 117/70 100 Mechanical Ventilator 30 09/17/18 16:50 105 20 30 09/17/18 16:00 99.3 93 14 131/81 100 Mechanical Ventilator 30 09/17/18 16:00 90 09/17/18 16:00 30 09/17/18 16:00 Mechanical Ventilator Mechanical Ventilator 09/17/18 15:13 92 16 30 09/17/18 15:00 90 14 125/52 100 Mechanical Ventilator 30 09/17/18 14:00 97 14 132/82 100 Mechanical Ventilator 30 09/17/18 13:14 104 25 30 09/17/18 13:00 99.4 103 16 124/81 100 Mechanical Ventilator 30 09/17/18 12:00 30 09/17/18 12:00 93 09/17/18 12:00 90 09/17/18 12:00 Mechanical Ventilator Mechanical Ventilator 09/17/18 12:00 90 14 123/75 100 Mechanical Ventilator 30 09/17/18 11:00 87 15 30 09/17/18 11:00 90 14 131/80 100 Mechanical Ventilator 30 09/17/18 10:00 86 16 117/73 100 Mechanical Ventilator 30 Intake and Output 09/17/18 09/18/18 19:00 07:00 Intake Total 2270.444 ml 936.2227 ml Output Total 1190 ml 960 ml Balance 1080.444 ml -23.7773 ml Intake Free Water 120 ml IV Total 2150.444 ml 936.2227 ml Output Urine Total 890 ml 760 ml Stool Total 50 ml 150 ml Gastric Drainage Total 250 ml 50 ml Laboratory Tests 09/17/18 11:15: Arterial Blood pH 7.409, Arterial Blood Partial Pressure CO2 21.6*L, Arterial Blood Partial Pressure O2 111.5H, Arterial Blood HCO3 13.4*L, Arterial Blood Oxygen Saturation 97.7, Arterial Blood Base Excess -9.4*L, Harvey Test Positive 09/17/18 12:00: Stool Occult Blood [Pending] 09/18/18 04:45: White Blood Count 7.8, Red Blood Count 3.53L, Hemoglobin 10.4L, Hematocrit 31.3L , Mean Corpuscular Volume 89, Mean Corpuscular Hemoglobin 29.6, Mean Corpuscular Hemoglobin Concent 33.3, Red Cell Distribution Width 13.6, Platelet Count 464H, Mean Platelet Volume 5.3L, Neutrophils (%) (Auto) , Lymphocytes (%) (Auto) , Monocytes (%) (Auto) , Eosinophils (%) (Auto) , Basophils (%) (Auto) , Neutrophils % (Manual) [Pending], Lymphocytes % (Manual) [Pending], Platelet Estimate [Pending], Platelet Morphology [Pending], Prothrombin Time 12.7H, Prothromb Time International Ratio 1.2H, Activated Partial Thromboplast Time 39H , Sodium Level 143, Potassium Level 3.6, Chloride Level 114H, Carbon Dioxide Level 17L, Anion Gap 12, Blood Urea Nitrogen 4L, Creatinine 1.4H, Estimat Glomerular Filtration Rate 51.7, Glucose Level 144H, Calcium Level 6.8L, Phosphorus Level 2.8, Magnesium Level 1.8, Total Bilirubin 0.4, Aspartate Amino Transf (AST/SGOT) 19, Alanine Aminotransferase (ALT/SGPT) 16, Alkaline Phosphatase 76, Total Protein 5.2L, Albumin 1.2L, Globulin 4.0, Albumin/ Globulin Ratio 0.3L Height (Feet): 5 Height (Inches): 5.00 Weight (Pounds): 124 General Appearance: lethargic EENT: normal ENT inspection Neck: normal alignment Cardiovascular: normal peripheral pulses, normal rate, regular rhythm Respiratory/Chest: chest wall non-tender, lungs clear, normal breath sounds Abdomen: normal bowel sounds, non tender, soft Extremities: normal inspection Edema: no edema noted Arm (L), no edema noted Arm (R), no edema noted Leg (L), no edema noted Leg (R), no edema noted Pedal (L), no edema noted Pedal (R), no edema noted Generalized Neurologic: motor weakness Skin: normal pigmentation, warm/dry Jasmeet Reynoso DO Sep 18, 2018 09:34
[2018-09-18] MEDS: Pantoprazole Inj IVP SCH ×2 (09:40→21:10)
[2018-09-18] MEDS ORDERED: Lidocaine 1% MPF 10mg/ml 5ml ONE (10:00)
[2018-09-18] MEDS ORDERED: Propofol 200mg/20ml IV ONE (10:00)
--- NOTE | 2018-09-18 10:28 | Endoscopy Procedure Note ---
Endoscopy Procedure Note General Indication for Procedure: gib Procedures Performed: EGD Operative Findings/Diagnosis: esophagitis Specimen: none Pt Tolerated Procedure Well: Yes Estimated Blood Loss: none Anesthesia Anesthesiologist: margot weber Anesthesia: MAC Inserted Devices Implant(s) used?: No GI Core Measures 50 yrs or older w/o bx or poly: Not Applicable 10yrs. F/U not recommended: Not Applicable Arthur Horton MD Sep 18, 2018 10:28
--- NOTE | 2018-09-18 10:37 | Infectious Diseases Prog Note ---
Assessment/Plan Assessment/Plan 62 yo male with PMHx of Quadriplegia with G-tube, HTN, DM and Schizophenia who was sent to the ED fromhis half-way for AMS. Sepsis - Probably PNA but will f/u other cultures No intubated on vent 45% CXR 09/07/18 - possible left sided consolidation Inf neg 09/07/18 BCx 2/2 sets diphteroids, 1/2 setse S. epi (contaminants); 2/ Bcx NTD 09/07/18 SCx - NF 09/07/18 UCx - Neg 09/09 Cdiff neg No leukocytosis Febrile to 103 on admit; improving HTN DM Schizophenia Quadriplegia. G- tube dependent Plan - Continue Ceftriaxone #10/ - 09/17/18 SP Continue Vancmocyin #10 - 09/09/18 Ertapenem #3 pending Cx - Monitor CBC and temps We will continue to follow the patient during this hospitalization. Subjective Allergies: Coded Allergies: No Known Allergies (Unverified , 08/14/18) Subjective Afebrile No leukocytosis On vent Objective Vital Signs Last 24 Hour Vital Signs Date Time Temp Pulse Resp B/P (MAP) Pulse Ox O2 Delivery O2 Flow Rate FiO2 09/18/18 09:23 101 15 30 09/18/18 09:20 136 46 30 09/18/18 09:15 89 14 30 09/18/18 08:00 30 09/18/18 08:00 Mechanical Ventilator Mechanical Ventilator 09/18/18 07:00 88 16 116/71 99 Mechanical Ventilator 30 09/18/18 06:50 85 14 30 09/18/18 06:00 87 12 113/73 100 Mechanical Ventilator 30 09/18/18 05:09 99 14 30 09/18/18 05:00 97 12 121/73 100 Mechanical Ventilator 30 09/18/18 04:00 99.3 98 20 121/75 100 Mechanical Ventilator 30 09/18/18 04:00 Mechanical Ventilator Mechanical Ventilator 09/18/18 04:00 30 09/18/18 04:00 98 09/18/18 03:45 97 20 30 09/18/18 03:00 90 16 140/75 100 Mechanical Ventilator 30 09/18/18 02:07 93 14 30 09/18/18 02:00 90 13 120/79 100 Mechanical Ventilator 30 09/18/18 01:00 85 13 126/80 100 Mechanical Ventilator 30 09/18/18 00:00 99.8 92 17 119/81 100 Mechanical Ventilator 30 09/18/18 00:00 Mechanical Ventilator Mechanical Ventilator 09/17/18 23:59 90 09/17/18 23:19 88 14 30 09/17/18 23:00 89 15 117/74 100 Mechanical Ventilator 30 09/17/18 22:06 87 14 30 09/17/18 22:00 87 12 119/71 100 Mechanical Ventilator 30 09/17/18 21:00 91 12 111/69 100 Mechanical Ventilator 30 09/17/18 21:00 111/69 09/17/18 20:07 92 09/17/18 20:00 98.5 96 13 99/63 100 Mechanical Ventilator 30 09/17/18 20:00 30 09/17/18 20:00 Mechanical Ventilator Mechanical Ventilator 09/17/18 19:45 99 15 30 09/17/18 19:00 94 17 105/68 100 Mechanical Ventilator 30 09/17/18 18:00 90 16 110/65 100 Mechanical Ventilator 30 09/17/18 17:00 96 17 117/70 100 Mechanical Ventilator 30 09/17/18 16:50 105 20 30 09/17/18 16:00 99.3 93 14 131/81 100 Mechanical Ventilator 30 09/17/18 16:00 90 09/17/18 16:00 30 09/17/18 16:00 Mechanical Ventilator Mechanical Ventilator 09/17/18 15:13 92 16 30 09/17/18 15:00 90 14 125/52 100 Mechanical Ventilator 30 09/17/18 14:00 97 14 132/82 100 Mechanical Ventilator 30 09/17/18 13:14 104 25 30 09/17/18 13:00 99.4 103 16 124/81 100 Mechanical Ventilator 30 09/17/18 12:00 30 09/17/18 12:00 93 09/17/18 12:00 90 09/17/18 12:00 Mechanical Ventilator Mechanical Ventilator 09/17/18 12:00 90 14 123/75 100 Mechanical Ventilator 30 09/17/18 11:00 87 15 30 09/17/18 11:00 90 14 131/80 100 Mechanical Ventilator 30 Height (Feet): 5 Height (Inches): 5.00 Weight (Pounds): 124 Objective Gen: NAD, On vent satting well HEENT: NCAT, MMM, EOMI LUNGS: CTAB ABD: Soft, NT, distended, + BS,G tube (No E/P) NEURO: Intubated, not following Microbiology Date/Time Source Procedure Growth Status 09/17/18 03:47 Sputum Gram Stain - Final Resulted 09/17/18 03:47 Sputum Sputum Culture - Preliminary Resulted Laboratory Tests Test 09/17/18 11:15 09/17/18 12:00 09/18/18 04:45 09/18/18 09:35 Arterial Blood pH 7.409 (7.350-7.450) 7.388 (7.350-7.450) Arterial Blood Partial Pressure CO2 21.6 mmHg (35.0-45.0) *L 25.2 mmHg (35.0-45.0) L Arterial Blood Partial Pressure O2 111.5 mmHg (75.0-100.0) H 95.2 mmHg (75.0-100.0) Arterial Blood HCO3 13.4 mmol/L (22.0-26.0) *L 14.8 mmol/L (22.0-26.0) *L Arterial Blood Oxygen Saturation 97.7 % (95-100) 96.7 % (95-100) Arterial Blood Base Excess -9.4 (-2-2) *L -8.6 (-2-2) L Harvey Test Positive Positive Stool Occult Blood Pending White Blood Count 7.8 K/UL (4.8-10.8) Red Blood Count 3.53 M/UL (4.70-6.10) L Hemoglobin 10.4 G/DL (14.2-18.0) L Hematocrit 31.3 % (42.0-52.0) L Mean Corpuscular Volume 89 FL (80-99) Mean Corpuscular Hemoglobin 29.6 PG (27.0-31.0) Mean Corpuscular Hemoglobin Concent 33.3 G/DL (32.0-36.0) Red Cell Distribution Width 13.6 % (11.6-14.8) Platelet Count 464 K/UL (150-450) H Mean Platelet Volume 5.3 FL (6.5-10.1) L Neutrophils (%) (Auto) % (45.0-75.0) Lymphocytes (%) (Auto) % (20.0-45.0) Monocytes (%) (Auto) % (1.0-10.0) Eosinophils (%) (Auto) % (0.0-3.0) Basophils (%) (Auto) % (0.0-2.0) Differential Total Cells Counted 100 Neutrophils % (Manual) 71 % (45-75) Lymphocytes % (Manual) 5 % (20-45) L Monocytes % (Manual) 5 % (1-10) Eosinophils % (Manual) 0 % (0-3) Basophils % (Manual) 0 % (0-2) Myelocytes % 1 % (0-0) H Band Neutrophils 18 % (0-8) H Platelet Estimate Increased H Platelet Morphology Normal Red Blood Cell Morphology Normal Prothrombin Time 12.7 SEC (9.30-11.50) H Prothromb Time International Ratio 1.2 (0.9-1.1) H Activated Partial Thromboplast Time 39 SEC (23-33) H Sodium Level 143 MMOL/L (136-145) Potassium Level 3.6 MMOL/L (3.5-5.1) Chloride Level 114 MMOL/L (98-107) H Carbon Dioxide Level 17 MMOL/L (21-32) L Anion Gap 12 mmol/L (5-15) Blood Urea Nitrogen 4 mg/dL (7-18) L Creatinine 1.4 MG/DL (0.55-1.30) H Estimat Glomerular Filtration Rate 51.7 mL/min (>60) Glucose Level 144 MG/DL (74-106) H Calcium Level 6.8 MG/DL (8.5-10.1) L Phosphorus Level 2.8 MG/DL (2.5-4.9) Magnesium Level 1.8 MG/DL (1.8-2.4) Total Bilirubin 0.4 MG/DL (0.2-1.0) Aspartate Amino Transf (AST/SGOT) 19 U/L (15-37) Alanine Aminotransferase (ALT/SGPT) 16 U/L (12-78) Alkaline Phosphatase 76 U/L (46-116) Total Protein 5.2 G/DL (6.4-8.2) L Albumin 1.2 G/DL (3.4-5.0) L Globulin 4.0 g/dL Albumin/Globulin Ratio 0.3 (1.0-2.7) L Current Medications Medications (Trade) Dose Ordered Sig/Julito Route PRN Reason Start Time Stop Time Status Last Admin Dose Admin Acetaminophen (Tylenol) 650 mg Q4H PRN NG Mild Pain/Temp > 100.5 09/08/18 13:30 10/08/18 13:29 09/15/18 18:00 Albuterol/ Ipratropium (Albuterol/ Ipratropium) 3 ml Q4H PRN HHN sob 09/16/18 11:30 09/22/18 11:29 Chlorhexidine Gluconate (Camila-Hex 2%) 1 applic DAILY@2000 TOPIC 09/15/18 20:00 10/15/18 19:59 09/17/18 19:43 Dextrose (Dextrose 50%) 25 ml Q30M PRN IV Hypoglycemia 09/08/18 13:30 10/08/18 13:29 Dextrose (Dextrose 50%) 50 ml Q30M PRN IV Hypoglycemia 09/08/18 13:30 10/08/18 13:29 09/17/18 00:30 Dextrose/Sodium Chloride 1,000 ml @ 50 mls/hr Q20H IV 09/13/18 13:45 10/13/18 13:44 09/18/18 08:28 Erythromycin (Jossue-Ped) 200 mg Q6HR GT 09/14/18 18:00 09/21/18 17:59 09/17/18 17:16 Heparin Sodium (Porcine) (Heparin 5000 units/ml) 5,000 units EVERY 12 HOURS SUBQ 09/07/18 21:00 10/07/18 20:59 09/17/18 20:44 Insulin Aspart (NovoLOG) Q6HR SUBQ 09/17/18 18:00 10/08/18 14:29 09/17/18 18:27 Loperamide HCl (Imodium) 4 mg TIDPRN PRN ORAL Diarrhea 09/10/18 13:00 10/10/18 12:59 09/11/18 03:51 Lorazepam (Ativan) 1 mg Q6H PRN ORAL For Anxiety 09/16/18 12:00 09/22/18 11:59 Midodrine (Pro-Amatine) 2.5 mg THREE TIMES A DAY GT 09/13/18 18:00 10/13/18 17:59 09/17/18 08:46 Norepinephrine Bitartrate 8 mg/ Dextrose 558 ml @ 0 mls/hr Q24H IV 09/08/18 21:00 10/08/18 20:59 09/10/18 18:37 Ondansetron HCl (Zofran) 4 mg Q6H PRN IVP Nausea & Vomiting 09/07/18 15:15 10/07/18 15:14 Pantoprazole (Protonix) 40 mg Q12HR IVP 09/07/18 21:00 10/08/18 08:59 09/18/18 09:40 Piperacillin Sod/ Tazobactam Sod 3.375 gm/Dextrose 110 ml @ 27.5 mls/hr Q8HR IVPB 09/09/18 14:00 09/19/18 13:59 09/18/18 05:30 Polyethylene Glycol (Miralax) 17 gm DAILYPRN PRN ORAL Constipation 09/07/18 15:15 10/07/18 15:14 Risperidone (RisperDAL) 0.25 mg QHS ORAL 09/10/18 21:00 10/10/18 20:59 09/15/18 21:03 Sodium Chloride 500 ml @ 999 mls/hr Q31M PRN IV SBP<90mmHg 09/08/18 11:00 10/08/18 10:59 09/08/18 12:34 Asim De Leon MD Sep 18, 2018 10:37
--- NOTE | 2018-09-18 11:28 | Diagnostic Imaging Report ---
Indication: Dyspnea Comparison: 09/17/2018 A single view chest radiograph was obtained. Findings: The lung volumes are low. The diaphragm is obscured on both sides, which may be due to underlying parenchymal disease and/or pleural effusions. PICC line and endotracheal tubes remain normal. Heart size remains normal. Mild vascular congestion may be present. IMPRESSION: No obvious change compared to last study. Limited study due to very low lung volumes. Mild interstitial edema may be present. Tubes and lines stable.
--- NOTE | 2018-09-18 12:44 | Immediate Post-Op Evaluation ---
Immediate Post-Op Evalulation Immediate Post-Op Evalulation Procedure: egd/g-tube replacement Date of Evaluation: Sep 18, 2018 Time of Evaluation: 10:42 IV Fluids: 100ml 0.9ns Blood Products: none Estimated Blood Loss: negligible Blood Pressure Systolic: 105 Blood Pressure Diastolic: 66 Pulse Rate: 92 Respiratory Rate: 12 O2 Sat by Pulse Oximetry: 100 Pain Score (1-10): 0 Nausea: No Vomiting: No Complications none Patient Status: awake, reacts, patent, ventilated Hydration Status: adequate Drug: Samira Forrest MD Sep 18, 2018 12:44
[2018-09-18] MEDS ORDERED: Midazolam 2mg/2ml Inj IVP PRN (12:45)
[2018-09-18] MEDS ORDERED: Atropine Inj 1mg/10ml Syr IV PRN (12:45)
[2018-09-18] MEDS ORDERED: DiphenhydrAMINE 50mg/ml Inj IVP PRN (12:45)
--- NOTE | 2018-09-18 12:47 | 48 Hour Post Anesthesia Eval ---
Post Anesthesia Evaluation Procedure: egd/g-tube replacement Date of Evaluation: Sep 18, 2018 Time of Evaluation: 10:44 Blood Pressure Systolic: 116 0: 71 Pulse Rate: 88 Respiratory Rate: 18 O2 Sat by Pulse Oximetry: 100 Airway: patent Nausea: No Vomiting: No Pain Intensity: 0 Hydration Status: adequate Cardiopulmonary Status: stable Mental Status/LOC: patient returned to baseline Post-Anesthesia Complications: none Follow-up care needed: N/A Samira Roberts MD Sep 18, 2018 12:47
--- NOTE | 2018-09-18 13:03 | Cardiac Electrophysiology PN ---
Assessment/Plan Assessment/Plan 1. S/P Septic and hemorrhagic shock with Lactic acidosis. On iv fluids and Abx and off pressors. S/P PRBC 2. Sinus tachycardia with heart rate in 140s due to septic shock and dehydration. No evidence of atrial fibrillation. EF of 75%. 3. Troponin elevation due to renal failure. EF 75%. 4. Respiratory failure on the vent 5. Rhabdomyolysis with CPK in thousands. May be contributing to renal failure. 6. Acute renal failure and severe hyperkalemia. Resolved FU by Dr. Smalls 7. Dysphagia, status post PEG placement. 8. GI bleed.S/P EGD by Dr Clifford ANGULO RN Subjective Subjective On vent off pressors. Had EGD that showed esophagitis today Objective Last 24 Hour Vital Signs Date Time Temp Pulse Resp B/P (MAP) Pulse Ox O2 Delivery O2 Flow Rate FiO2 09/18/18 12:47 88 18 100 09/18/18 12:44 92 12 100 09/18/18 12:00 Mechanical Ventilator Mechanical Ventilator 09/18/18 12:00 30 09/18/18 11:30 98 15 30 09/18/18 11:00 88 16 116/71 99 Mechanical Ventilator 30 09/18/18 10:00 94 16 101/70 99 Mechanical Ventilator 30 09/18/18 09:23 101 15 30 09/18/18 09:20 136 46 30 09/18/18 09:15 89 14 30 09/18/18 09:00 104 15 104/68 99 Mechanical Ventilator 30 09/18/18 08:00 87 09/18/18 08:00 30 09/18/18 08:00 101.6 88 16 102/64 99 Mechanical Ventilator 30 09/18/18 08:00 Mechanical Ventilator Mechanical Ventilator 09/18/18 07:00 88 16 116/71 99 Mechanical Ventilator 30 09/18/18 06:50 85 14 30 09/18/18 06:00 87 12 113/73 100 Mechanical Ventilator 30 09/18/18 05:09 99 14 30 09/18/18 05:00 97 12 121/73 100 Mechanical Ventilator 30 09/18/18 04:00 99.3 98 20 121/75 100 Mechanical Ventilator 30 09/18/18 04:00 Mechanical Ventilator Mechanical Ventilator 09/18/18 04:00 30 09/18/18 04:00 98 09/18/18 03:45 97 20 30 09/18/18 03:00 90 16 140/75 100 Mechanical Ventilator 30 09/18/18 02:07 93 14 30 09/18/18 02:00 90 13 120/79 100 Mechanical Ventilator 30 09/18/18 01:00 85 13 126/80 100 Mechanical Ventilator 30 09/18/18 00:00 99.8 92 17 119/81 100 Mechanical Ventilator 30 09/18/18 00:00 Mechanical Ventilator Mechanical Ventilator 09/17/18 23:59 90 09/17/18 23:19 88 14 30 09/17/18 23:00 89 15 117/74 100 Mechanical Ventilator 30 09/17/18 22:06 87 14 30 09/17/18 22:00 87 12 119/71 100 Mechanical Ventilator 30 09/17/18 21:00 91 12 111/69 100 Mechanical Ventilator 30 09/17/18 21:00 111/69 09/17/18 20:07 92 09/17/18 20:00 98.5 96 13 99/63 100 Mechanical Ventilator 30 09/17/18 20:00 30 09/17/18 20:00 Mechanical Ventilator Mechanical Ventilator 09/17/18 19:45 99 15 30 09/17/18 19:00 94 17 105/68 100 Mechanical Ventilator 30 09/17/18 18:00 90 16 110/65 100 Mechanical Ventilator 30 09/17/18 17:00 96 17 117/70 100 Mechanical Ventilator 30 09/17/18 16:50 105 20 30 09/17/18 16:00 99.3 93 14 131/81 100 Mechanical Ventilator 30 09/17/18 16:00 90 09/17/18 16:00 30 09/17/18 16:00 Mechanical Ventilator Mechanical Ventilator 09/17/18 15:13 92 16 30 09/17/18 15:00 90 14 125/52 100 Mechanical Ventilator 30 09/17/18 14:00 97 14 132/82 100 Mechanical Ventilator 30 09/17/18 13:14 104 25 30 Intake and Output 09/17/18 09/18/18 19:00 07:00 Intake Total 2270.444 ml 936.2227 ml Output Total 1190 ml 960 ml Balance 1080.444 ml -23.7773 ml Intake Free Water 120 ml IV Total 2150.444 ml 936.2227 ml Output Urine Total 890 ml 760 ml Stool Total 50 ml 150 ml Gastric Drainage Total 250 ml 50 ml Laboratory Tests Test 09/18/18 04:45 09/18/18 09:35 White Blood Count 7.8 K/UL (4.8-10.8) Red Blood Count 3.53 M/UL (4.70-6.10) L Hemoglobin 10.4 G/DL (14.2-18.0) L Hematocrit 31.3 % (42.0-52.0) L Mean Corpuscular Volume 89 FL (80-99) Mean Corpuscular Hemoglobin 29.6 PG (27.0-31.0) Mean Corpuscular Hemoglobin Concent 33.3 G/DL (32.0-36.0) Red Cell Distribution Width 13.6 % (11.6-14.8) Platelet Count 464 K/UL (150-450) H Mean Platelet Volume 5.3 FL (6.5-10.1) L Neutrophils (%) (Auto) % (45.0-75.0) Lymphocytes (%) (Auto) % (20.0-45.0) Monocytes (%) (Auto) % (1.0-10.0) Eosinophils (%) (Auto) % (0.0-3.0) Basophils (%) (Auto) % (0.0-2.0) Differential Total Cells Counted 100 Neutrophils % (Manual) 71 % (45-75) Lymphocytes % (Manual) 5 % (20-45) L Monocytes % (Manual) 5 % (1-10) Eosinophils % (Manual) 0 % (0-3) Basophils % (Manual) 0 % (0-2) Myelocytes % 1 % (0-0) H Band Neutrophils 18 % (0-8) H Platelet Estimate Increased H Platelet Morphology Normal Red Blood Cell Morphology Normal Prothrombin Time 12.7 SEC (9.30-11.50) H Prothromb Time International Ratio 1.2 (0.9-1.1) H Activated Partial Thromboplast Time 39 SEC (23-33) H Sodium Level 143 MMOL/L (136-145) Potassium Level 3.6 MMOL/L (3.5-5.1) Chloride Level 114 MMOL/L (98-107) H Carbon Dioxide Level 17 MMOL/L (21-32) L Anion Gap 12 mmol/L (5-15) Blood Urea Nitrogen 4 mg/dL (7-18) L Creatinine 1.4 MG/DL (0.55-1.30) H Estimat Glomerular Filtration Rate 51.7 mL/min (>60) Glucose Level 144 MG/DL (74-106) H Calcium Level 6.8 MG/DL (8.5-10.1) L Phosphorus Level 2.8 MG/DL (2.5-4.9) Magnesium Level 1.8 MG/DL (1.8-2.4) Total Bilirubin 0.4 MG/DL (0.2-1.0) Aspartate Amino Transf (AST/SGOT) 19 U/L (15-37) Alanine Aminotransferase (ALT/SGPT) 16 U/L (12-78) Alkaline Phosphatase 76 U/L (46-116) Total Protein 5.2 G/DL (6.4-8.2) L Albumin 1.2 G/DL (3.4-5.0) L Globulin 4.0 g/dL Albumin/Globulin Ratio 0.3 (1.0-2.7) L Arterial Blood pH 7.388 (7.350-7.450) Arterial Blood Partial Pressure CO2 25.2 mmHg (35.0-45.0) L Arterial Blood Partial Pressure O2 95.2 mmHg (75.0-100.0) Arterial Blood HCO3 14.8 mmol/L (22.0-26.0) *L Arterial Blood Oxygen Saturation 96.7 % (95-100) Arterial Blood Base Excess -8.6 (-2-2) L Harvey Test Positive Microbiology Date/Time Source Procedure Growth Status 09/17/18 03:47 Sputum Gram Stain - Final Resulted 09/17/18 03:47 Sputum Sputum Culture - Preliminary Resulted Objective HEENT: Orally intubated. LUNGS: Coarse rhonchi. CARDIOVASCULAR: Tachycardic S1 and S2. ABDOMEN: G-tube connected to suction. EXTREMITIES: No pitting edema. Jasbir Madsen MD Sep 18, 2018 13:03
--- NOTE | 2018-09-18 13:39 | Nephrology Progress Note ---
Assessment/Plan Problem List: (1) ATN (acute tubular necrosis) (2) Septic shock (3) Lactic acid acidosis (4) Metabolic acidosis (5) Hyperkalemia (6) G tube feedings (7) Acute respiratory failure Assessment over all improved: cr wnl presented with Shock , likely septic Acute renal failure resolved Acute metabolic acidosis resolved Hyperkalemia PEG Recent Pneumonia Plan plan: failing weaning midodrine as needed pulmonary support Fluid challenge as needed Silva K and Phos and Mag supplement as needed antibiotics monitor renal parameters and ABG Subjective ROS Limited/Unobtainable: Yes Objective Objective Last 24 Hour Vital Signs Date Time Temp Pulse Resp B/P (MAP) Pulse Ox O2 Delivery O2 Flow Rate FiO2 09/18/18 12:47 88 18 100 09/18/18 12:44 92 12 100 09/18/18 12:30 85 17 30 09/18/18 12:00 Mechanical Ventilator Mechanical Ventilator 09/18/18 12:00 30 09/18/18 11:30 98 15 30 09/18/18 11:00 88 16 116/71 99 Mechanical Ventilator 30 09/18/18 10:00 94 16 101/70 99 Mechanical Ventilator 30 09/18/18 09:23 101 15 30 09/18/18 09:20 136 46 30 09/18/18 09:15 89 14 30 09/18/18 09:00 104 15 104/68 99 Mechanical Ventilator 30 09/18/18 08:00 87 09/18/18 08:00 30 09/18/18 08:00 101.6 88 16 102/64 99 Mechanical Ventilator 30 09/18/18 08:00 Mechanical Ventilator Mechanical Ventilator 09/18/18 07:00 88 16 116/71 99 Mechanical Ventilator 30 09/18/18 06:50 85 14 30 09/18/18 06:00 87 12 113/73 100 Mechanical Ventilator 30 09/18/18 05:09 99 14 30 09/18/18 05:00 97 12 121/73 100 Mechanical Ventilator 30 09/18/18 04:00 99.3 98 20 121/75 100 Mechanical Ventilator 30 09/18/18 04:00 Mechanical Ventilator Mechanical Ventilator 09/18/18 04:00 30 09/18/18 04:00 98 09/18/18 03:45 97 20 30 09/18/18 03:00 90 16 140/75 100 Mechanical Ventilator 30 09/18/18 02:07 93 14 30 09/18/18 02:00 90 13 120/79 100 Mechanical Ventilator 30 09/18/18 01:00 85 13 126/80 100 Mechanical Ventilator 30 09/18/18 00:00 99.8 92 17 119/81 100 Mechanical Ventilator 30 09/18/18 00:00 Mechanical Ventilator Mechanical Ventilator 09/17/18 23:59 90 09/17/18 23:19 88 14 30 09/17/18 23:00 89 15 117/74 100 Mechanical Ventilator 30 09/17/18 22:06 87 14 30 09/17/18 22:00 87 12 119/71 100 Mechanical Ventilator 30 09/17/18 21:00 91 12 111/69 100 Mechanical Ventilator 30 09/17/18 21:00 111/69 09/17/18 20:07 92 09/17/18 20:00 98.5 96 13 99/63 100 Mechanical Ventilator 30 09/17/18 20:00 30 09/17/18 20:00 Mechanical Ventilator Mechanical Ventilator 09/17/18 19:45 99 15 30 09/17/18 19:00 94 17 105/68 100 Mechanical Ventilator 30 09/17/18 18:00 90 16 110/65 100 Mechanical Ventilator 30 09/17/18 17:00 96 17 117/70 100 Mechanical Ventilator 30 09/17/18 16:50 105 20 30 09/17/18 16:00 99.3 93 14 131/81 100 Mechanical Ventilator 30 09/17/18 16:00 90 09/17/18 16:00 30 09/17/18 16:00 Mechanical Ventilator Mechanical Ventilator 09/17/18 15:13 92 16 30 09/17/18 15:00 90 14 125/52 100 Mechanical Ventilator 30 09/17/18 14:00 97 14 132/82 100 Mechanical Ventilator 30 Intake and Output 09/17/18 09/18/18 19:00 07:00 Intake Total 2270.444 ml 936.2227 ml Output Total 1190 ml 960 ml Balance 1080.444 ml -23.7773 ml Intake Free Water 120 ml IV Total 2150.444 ml 936.2227 ml Output Urine Total 890 ml 760 ml Stool Total 50 ml 150 ml Gastric Drainage Total 250 ml 50 ml Laboratory Tests 09/18/18 04:45: White Blood Count 7.8, Red Blood Count 3.53L, Hemoglobin 10.4L, Hematocrit 31.3L , Mean Corpuscular Volume 89, Mean Corpuscular Hemoglobin 29.6, Mean Corpuscular Hemoglobin Concent 33.3, Red Cell Distribution Width 13.6, Platelet Count 464H, Mean Platelet Volume 5.3L, Neutrophils (%) (Auto) , Lymphocytes (%) (Auto) , Monocytes (%) (Auto) , Eosinophils (%) (Auto) , Basophils (%) (Auto) , Differential Total Cells Counted 100, Neutrophils % (Manual) 71, Lymphocytes % ( Manual) 5L, Monocytes % (Manual) 5, Eosinophils % (Manual) 0, Basophils % ( Manual) 0, Myelocytes % 1H, Band Neutrophils 18H, Platelet Estimate IncreasedH, Platelet Morphology Normal, Red Blood Cell Morphology Normal, Prothrombin Time 12.7H, Prothromb Time International Ratio 1.2H, Activated Partial Thromboplast Time 39H, Sodium Level 143, Potassium Level 3.6, Chloride Level 114H, Carbon Dioxide Level 17L, Anion Gap 12, Blood Urea Nitrogen 4L, Creatinine 1.4H, Estimat Glomerular Filtration Rate 51.7, Glucose Level 144H, Calcium Level 6.8L , Phosphorus Level 2.8, Magnesium Level 1.8, Total Bilirubin 0.4, Aspartate Amino Transf (AST/SGOT) 19, Alanine Aminotransferase (ALT/SGPT) 16, Alkaline Phosphatase 76, Total Protein 5.2L, Albumin 1.2L, Globulin 4.0, Albumin/ Globulin Ratio 0.3L 09/18/18 09:35: Arterial Blood pH 7.388, Arterial Blood Partial Pressure CO2 25.2L, Arterial Blood Partial Pressure O2 95.2, Arterial Blood HCO3 14.8*L, Arterial Blood Oxygen Saturation 96.7, Arterial Blood Base Excess -8.6L, Harvey Test Positive Height (Feet): 5 Height (Inches): 5.00 Weight (Pounds): 124 General Appearance: no apparent distress EENT: other - vented Cardiovascular: normal rate Respiratory/Chest: decreased breath sounds Abdomen: distended Josesito Smalls MD Sep 18, 2018 13:39
[2018-09-18] MEDS ORDERED: Tubing IV Secondary IV ONE (14:08)
[2018-09-18] MEDS ORDERED: Sterile Water For Inj 1000ml IV ONE (14:08)
[2018-09-18] MEDS ORDERED: NS 275ml ONE (14:08)
[2018-09-18] MEDS ORDERED: D5NS 1000ml IV ONE (14:08)
--- NOTE | 2018-09-18 17:00 | Procedure Note ---
DATE OF PROCEDURE: 09/18/2018 SURGEON: Arthur Horton M.D. PROCEDURE: Upper endoscopy with PEG placement. ANESTHESIA: Per Dr. Trenton Edwards. INSTRUMENT: Olympus adult flexible upper endoscope. INDICATION: Upper GI bleeding. REASON FOR PROCEDURE: The procedure, risks, benefits, and possible consequences, including hemorrhage, aspiration, perforation and infection, and alternative treatments, were explained to the patient/legal guardian by Dr. Arthur Horton and the patient/legal guardian understood and accepted these risks. PROCEDURE IN DETAIL: After informed consent was obtained and the patient was adequately sedated, the Olympus upper endoscope was advanced from mouth into the second portion of the duodenum and retroflexion was performed in the stomach. The patient had evidence of diffuse distal esophagitis not actively bleeding at this time. In the stomach, there was diffuse gastritis. We noticed that the G-tube was not in place. We deflated the balloon. Most probably, the G-tube was under the skin of the gastric wall. We tried to push the G-tube back in and we could not. We opened a new G-tube kit. We passed the wire through the same hole, grabbed it with a snare, and over the wire, we placed a 20-Austrian pull type of G-tube successfully. The patient tolerated the procedure well without complication. SUMMARY OF FINDINGS: 1. Distal esophagitis. 2. Malposition of G-tube replaced with a 20-Austrian pull type of G-tube successfully. RECOMMENDATIONS: 1. Abdominal binder. 2. Elevate the head of the bed at all times. 3. There is no any active bleeding, so we are going to resume tube feeding. 4. PPI daily. I want to thank Dr. Jasmeet Reynoso for this kind referral. Arthur Horton M.D. DR: MIKA JOB#: [id number] CC:
--- NOTE | 2018-09-18 19:00 | Progress Note ---
DATE: 09/18/2018 SUBJECTIVE: This is a 62-year-old male patient. The patient is in the ICU. The patient does have some confusion and mood liability worsened by stress of his medical illness. He has anemia, GI bleeding, septic shock in ICU. At bedside, he is not responsive verbally, but he has had some significant level of altered mental status and confusion. His cognition has declined significantly below his baseline. That is why his attending has requested daily psychiatric consultation. MENTAL STATUS EXAMINATION: This is a 62-year-old male. Appearance is disheveled. Attitude irritable and agitated. Affect flat. Thought process, disorganized. Thought content, no signs of any suicidal or homicidal thoughts. Insight and judgment is poor. DIAGNOSIS: Paranoid schizophrenia with acute exacerbation. PLAN: Continue the patient's Risperdal to help stabilize his mood and continue to be followed by Psychiatry throughout hospital course. Chart reviewed. Discussed with staff. Seen and assessed at bedside. Virgie Mcdermott M.D. DR: ESCOBAR JOB#: [id number] CC:
--- NOTE | 2018-09-18 19:30 | Procedure Note ---
DATE OF PROCEDURE: 09/18/2018 SURGEON: Arthur Horton M.D. PROCEDURE: Upper endoscopy with PEG placement. ANESTHESIA: Per Dr. Trenton Edwards. INSTRUMENT: Olympus adult flexible upper endoscope. INDICATION: Upper GI bleeding. REASON FOR PROCEDURE: The procedure, risks, benefits, and possible consequences, including hemorrhage, aspiration, perforation and infection, and alternative treatments, were explained to the patient/legal guardian by Dr. Arthur Horton and the patient/legal guardian understood and accepted these risks. PROCEDURE IN DETAIL: After informed consent was obtained and the patient was adequately sedated, the Olympus upper endoscope was advanced from mouth into the second portion of the duodenum and retroflexion was performed in the stomach. The patient had evidence of diffuse distal esophagitis not actively bleeding at this time. In the stomach, there was diffuse gastritis. We noticed that the G-tube was not in place. We deflated the balloon. Most probably, the G-tube was under the skin of the gastric wall. We tried to push the G-tube back in and we could not. We opened a new G-tube kit. We passed the wire through the same hole, grabbed it with a snare, and over the wire, we placed a 20-[place]ian pull type of G-tube successfully. The patient tolerated the procedure well without complication. SUMMARY OF FINDINGS: 1. Distal esophagitis. 2. Malposition of G-tube replaced with a 20-[place]ian pull type of G-tube successfully. RECOMMENDATIONS: 1. Abdominal binder. 2. Elevate the head of the bed at all times. 3. There is no any active bleeding, so we are going to resume tube feeding. 4. PPI daily. I want to thank Dr. Jasmeet Reynoso for this kind referral. Arthur Horton M.D. DR: MIKA JOB#: [id number] CC: Jasmeet Reynoso D.O.
[2018-09-18] MEDS: Dyna-Hex 2% Top Sol 2oz TOPIC SCH (19:34)
[2018-09-18] MEDS: Norepinephrine Bitartrate 8 MG in D5W 500ml 550 ML IV SCH (21:00)
[2018-09-18] MEDS: Acetaminophen 650mg/20.3ml NG PRN (21:09)
[2018-09-19] VITALS (24 sets, daily range): BP systolic 91–119; BP diastolic 58–80
[2018-09-19] MEDS: D5NS 1,000 ML IV SCH (04:32)
[2018-09-19 05:31] LABS: BASOPHILS % (AUTO) 1.4 % (0.0-2.0); EOSINOPHILS % (AUTO) 1.2 % (0.0-3.0); HEMATOCRIT 31.5 % (42.0-52.0); HEMOGLOBIN 10.2 G/DL (14.2-18.0); LYMPHOCYTES % (AUTO) 7.8 % (20.0-45.0); MEAN CORPUSCULAR VOLUME 91 FL (80-99); MONOCYTES % (AUTO) 6.5 % (1.0-10.0); NEUTROPHILS % (AUTO) 83.2 % (45.0-75.0); PLATELET COUNT 512 K/UL (150-450); RED BLOOD COUNT 3.48 M/UL (4.70-6.10); RED CELL DISTRIBUTION WIDTH 13.4 % (11.6-14.8); WHITE BLOOD COUNT 7.6 K/UL (4.8-10.8)
[2018-09-19] MEDS: Erythromycin Ethylsuccinate 200mg/5ml Susp GT SCH ×4 (05:32→23:38)
[2018-09-19] MEDS: Piperacillin/Tazobactam 3.375 GM in D5W 110 ML IVPB SCH (05:32)
[2018-09-19] MEDS: NovoLOG Insulin Flexpen SUBQ SCH ×4 (05:32→23:38)
[2018-09-19 05:49] LABS: ALANINE AMINOTRANSFERASE 15 U/L (12-78); ALBUMIN 1.2 G/DL (3.4-5.0); ALBUMIN/GLOBULIN RATIO 0.3 (1.0-2.7); ALKALINE PHOSPHATASE 76 U/L (46-116); ANION GAP 11 mmol/L (5-15); ASPARTATE AMINO TRANSFERASE 19 U/L (15-37); BILIRUBIN,TOTAL 0.4 MG/DL (0.2-1.0); CALCIUM 6.9 MG/DL (8.5-10.1); CARBON DIOXIDE 19 MMOL/L (21-32); CHLORIDE 116 MMOL/L (98-107); CREATININE 1.4 MG/DL (0.55-1.30); PHOSPHORUS 2.6 MG/DL (2.5-4.9); POTASSIUM 3.5 MMOL/L (3.5-5.1); SODIUM 146 MMOL/L (136-145)
[2018-09-19 05:56] LABS: BLOOD UREA NITROGEN 5 mg/dL (7-18)
[2018-09-19] MEDS: Pantoprazole Inj IVP SCH ×2 (09:05→20:39)
[2018-09-19] MEDS: Acetaminophen 650mg/20.3ml NG PRN (09:07)
[2018-09-19] MEDS: Heparin 5000 units/ml inj SUBQ SCH ×2 (09:10→20:41)
--- NOTE | 2018-09-19 11:12 | Diagnostic Imaging Report ---
EXAM: XR Chest, 1 View CLINICAL HISTORY: DYSPNEA TECHNIQUE: Frontal view of the chest. COMPARISON: Chest x-ray, 09/18/18 745 FINDINGS: Lungs: Hypoventilatory lungs. Bibasilar atelectasis/airspace disease are stable. Pleural space: Bilateral pleural effusions. No pneumothorax. Heart: Unremarkable. No cardiomegaly. Mediastinum: Unremarkable. Bones/joints: Unremarkable. Tubes, lines and devices: Endotracheal tube 2.5 cm above the blil. Stable left PICC line. IMPRESSION: Bilateral pleural effusions and bibasilar atelectasis/airspace disease are stable.
--- NOTE | 2018-09-19 12:06 | Pulmonolgy Critical Care Note ---
Critical Care - Asmt/Plan Problems: (1) Septic shock (2) ATN (acute tubular necrosis) (3) Hyperkalemia (4) Metabolic acidosis Respiratory: monitor respiratory rate, adjust FIO2, ABG Cardiac: continue pressors, continue to monitor HR/BP Renal: F/U I&O, keep IV fluid Infectious Disease: check cultures Gastrointestinal: continue feedings/current rate Endocrine: monitor blood sugar, check TSH Hematologic: monitor H/H, transfuse if hgb<8.5 Neurologic: PRN Ativan, PRN Morphine, keep patient comfortable Prophylaxis: Heparin Disposition: keep in ICU Time Spent (Minutes): 40 Notes Reviewed: speech clinician, cardio, renal Discussed with: nurses, consultants, renal case managerautomation sales manager - Objective Last 24 Hour Vital Signs Date Time Temp Pulse Resp B/P (MAP) Pulse Ox O2 Delivery O2 Flow Rate FiO2 09/19/18 11:03 89 12 30 09/19/18 10:00 90 12 112/69 100 Mechanical Ventilator 30 09/19/18 09:37 99.8 09/19/18 09:00 95 16 118/75 100 Mechanical Ventilator 30 09/19/18 08:50 97 15 30 09/19/18 08:00 89 09/19/18 08:00 30 09/19/18 08:00 100.1 92 9 107/71 100 Mechanical Ventilator 30 09/19/18 08:00 Mechanical Ventilator Mechanical Ventilator Mechanical Ventilator 09/19/18 07:23 85 13 30 09/19/18 07:00 82 12 112/69 100 Mechanical Ventilator 30 09/19/18 06:00 86 13 110/72 100 Mechanical Ventilator 30 09/19/18 05:01 85 12 30 09/19/18 05:00 87 20 114/71 100 Mechanical Ventilator 30 09/19/18 04:00 98.4 86 17 112/80 100 Mechanical Ventilator 30 09/19/18 04:00 30 09/19/18 04:00 Mechanical Ventilator Mechanical Ventilator Mechanical Ventilator 09/19/18 03:17 88 17 30 09/19/18 03:08 81 09/19/18 03:00 86 14 102/65 100 Mechanical Ventilator 30 09/19/18 02:00 89 14 96/62 100 Mechanical Ventilator 30 09/19/18 01:12 79 12 30 09/19/18 01:00 84 22 91/58 100 Mechanical Ventilator 30 09/19/18 00:10 74 09/19/18 00:00 Mechanical Ventilator Mechanical Ventilator Mechanical Ventilator 09/19/18 00:00 30 09/19/18 00:00 98.5 85 12 104/65 100 Mechanical Ventilator 30 09/18/18 23:08 86 12 Mechanical Ventilator 30 09/18/18 23:07 85 12 30 09/18/18 23:00 84 12 98/65 100 Mechanical Ventilator 30 09/18/18 22:00 85 12 107/67 100 Mechanical Ventilator 30 09/18/18 21:13 88 14 30 09/18/18 21:00 91 19 111/68 100 Mechanical Ventilator 30 09/18/18 21:00 111/68 09/18/18 20:00 Mechanical Ventilator Mechanical Ventilator 09/18/18 20:00 99.3 82 15 118/69 100 Mechanical Ventilator 30 09/18/18 20:00 30 09/18/18 19:13 69 12 30 09/18/18 19:10 81 09/18/18 18:00 78 17 114/75 100 Mechanical Ventilator 30 09/18/18 17:15 85 14 30 09/18/18 17:00 81 17 114/68 100 Mechanical Ventilator 30 09/18/18 16:00 84 09/18/18 16:00 Mechanical Ventilator Mechanical Ventilator 09/18/18 16:00 99.8 85 18 106/62 100 Mechanical Ventilator 30 09/18/18 16:00 30 09/18/18 15:28 93 20 30 09/18/18 15:00 92 17 116/71 100 Mechanical Ventilator 30 09/18/18 14:00 89 18 114/71 100 Mechanical Ventilator 30 09/18/18 13:00 92 19 116/71 100 Mechanical Ventilator 30 09/18/18 12:47 88 18 100 09/18/18 12:44 92 12 100 09/18/18 12:30 85 17 30 Status: awake Condition: critical HEENT: atraumatic Neck: full ROM Heart: HR/BP stable Abdomen: soft, active bowel sounds Extremities: no C/C/E, edema Decubiti: stage Micro: Microbiology Date/Time Source Procedure Growth Status 09/17/18 03:47 Sputum Gram Stain - Final Resulted 09/17/18 03:47 Sputum Culture - Preliminary YEAST Resulted Accucheck: 102 Critical Care - Subjective ROS Limited/Unobtainable: Yes Condition: critical EKG Rhythm: Sinus Rhythm FI02: 30 Vent Support Breath Rate: 12 Vent Support Mode: AC Vent Tidal Volume: 600 Sputum Amount: Small PEEP: 0.0 PIP: 29 Tube Feeding Amount: 20 I&O: Intake and Output 09/18/18 09/19/18 19:00 07:00 Intake Total 827.5 ml 1131.0 ml Output Total 670 ml 650 ml Balance 157.5 ml 481.0 ml Intake Free Water 60 ml IV Total 637.5 ml 751.0 ml Tube Feeding 130 ml 240 ml Other 140 ml Output Urine Total 550 ml 550 ml Stool Total 120 ml 100 ml ET-Tube: 7.5 ET Position: 23 Labs: Laboratory Tests Test 09/19/18 04:20 09/19/18 09:30 White Blood Count 7.6 K/UL (4.8-10.8) Red Blood Count 3.48 M/UL (4.70-6.10) L Hemoglobin 10.2 G/DL (14.2-18.0) L Hematocrit 31.5 % (42.0-52.0) L Mean Corpuscular Volume 91 FL (80-99) Mean Corpuscular Hemoglobin 29.3 PG (27.0-31.0) Mean Corpuscular Hemoglobin Concent 32.3 G/DL (32.0-36.0) Red Cell Distribution Width 13.4 % (11.6-14.8) Platelet Count 512 K/UL (150-450) H Mean Platelet Volume 5.2 FL (6.5-10.1) L Neutrophils (%) (Auto) 83.2 % (45.0-75.0) H Lymphocytes (%) (Auto) 7.8 % (20.0-45.0) L Monocytes (%) (Auto) 6.5 % (1.0-10.0) Eosinophils (%) (Auto) 1.2 % (0.0-3.0) Basophils (%) (Auto) 1.4 % (0.0-2.0) Sodium Level 146 MMOL/L (136-145) H Potassium Level 3.5 MMOL/L (3.5-5.1) Chloride Level 116 MMOL/L (98-107) H Carbon Dioxide Level 19 MMOL/L (21-32) L Anion Gap 11 mmol/L (5-15) Blood Urea Nitrogen 5 mg/dL (7-18) L Creatinine 1.4 MG/DL (0.55-1.30) H Estimat Glomerular Filtration Rate 51.7 mL/min (>60) Glucose Level 112 MG/DL (74-106) H Calcium Level 6.9 MG/DL (8.5-10.1) L Phosphorus Level 2.6 MG/DL (2.5-4.9) Magnesium Level 1.7 MG/DL (1.8-2.4) L Total Bilirubin 0.4 MG/DL (0.2-1.0) Aspartate Amino Transf (AST/SGOT) 19 U/L (15-37) Alanine Aminotransferase (ALT/SGPT) 15 U/L (12-78) Alkaline Phosphatase 76 U/L (46-116) Total Protein 5.2 G/DL (6.4-8.2) L Albumin 1.2 G/DL (3.4-5.0) L Globulin 4.0 g/dL Albumin/Globulin Ratio 0.3 (1.0-2.7) L Arterial Blood pH 7.423 (7.350-7.450) Arterial Blood Partial Pressure CO2 24.8 mmHg (35.0-45.0) *L Arterial Blood Partial Pressure O2 108.7 mmHg (75.0-100.0) H Arterial Blood HCO3 15.8 mmol/L (22.0-26.0) *L Arterial Blood Oxygen Saturation 97.4 % (95-100) Arterial Blood Base Excess -7.1 (-2-2) L Harvey Test Positive Po Li MD Sep 19, 2018 12:06
--- NOTE | 2018-09-19 12:24 | Nephrology Progress Note ---
Assessment/Plan Problem List: (1) ATN (acute tubular necrosis) (2) Septic shock (3) Lactic acid acidosis (4) Metabolic acidosis (5) Hyperkalemia (6) G tube feedings (7) Acute respiratory failure Assessment over all improved: cr wnl presented with Shock , likely septic Acute renal failure resolved Acute metabolic acidosis resolved Hyperkalemia PEG Recent Pneumonia Plan plan: failing weaning midodrine as needed pulmonary support Fluid challenge as needed Silva K and Phos and Mag supplement as needed antibiotics monitor renal parameters and ABG Subjective ROS Limited/Unobtainable: Yes Objective Objective Last 24 Hour Vital Signs Date Time Temp Pulse Resp B/P (MAP) Pulse Ox O2 Delivery O2 Flow Rate FiO2 09/19/18 11:03 89 12 30 09/19/18 10:00 90 12 112/69 100 Mechanical Ventilator 30 09/19/18 09:37 99.8 09/19/18 09:00 95 16 118/75 100 Mechanical Ventilator 30 09/19/18 08:50 97 15 30 09/19/18 08:00 89 09/19/18 08:00 30 09/19/18 08:00 100.1 92 9 107/71 100 Mechanical Ventilator 30 09/19/18 08:00 Mechanical Ventilator Mechanical Ventilator Mechanical Ventilator 09/19/18 07:23 85 13 30 09/19/18 07:00 82 12 112/69 100 Mechanical Ventilator 30 09/19/18 06:00 86 13 110/72 100 Mechanical Ventilator 30 09/19/18 05:01 85 12 30 09/19/18 05:00 87 20 114/71 100 Mechanical Ventilator 30 09/19/18 04:00 98.4 86 17 112/80 100 Mechanical Ventilator 30 09/19/18 04:00 30 09/19/18 04:00 Mechanical Ventilator Mechanical Ventilator Mechanical Ventilator 09/19/18 03:17 88 17 30 09/19/18 03:08 81 09/19/18 03:00 86 14 102/65 100 Mechanical Ventilator 30 09/19/18 02:00 89 14 96/62 100 Mechanical Ventilator 30 09/19/18 01:12 79 12 30 09/19/18 01:00 84 22 91/58 100 Mechanical Ventilator 30 09/19/18 00:10 74 09/19/18 00:00 Mechanical Ventilator Mechanical Ventilator Mechanical Ventilator 09/19/18 00:00 30 09/19/18 00:00 98.5 85 12 104/65 100 Mechanical Ventilator 30 09/18/18 23:08 86 12 Mechanical Ventilator 30 09/18/18 23:07 85 12 30 09/18/18 23:00 84 12 98/65 100 Mechanical Ventilator 30 09/18/18 22:00 85 12 107/67 100 Mechanical Ventilator 30 09/18/18 21:13 88 14 30 09/18/18 21:00 91 19 111/68 100 Mechanical Ventilator 30 09/18/18 21:00 111/68 09/18/18 20:00 Mechanical Ventilator Mechanical Ventilator 09/18/18 20:00 99.3 82 15 118/69 100 Mechanical Ventilator 30 09/18/18 20:00 30 09/18/18 19:13 69 12 30 09/18/18 19:10 81 09/18/18 18:00 78 17 114/75 100 Mechanical Ventilator 30 09/18/18 17:15 85 14 30 09/18/18 17:00 81 17 114/68 100 Mechanical Ventilator 30 09/18/18 16:00 84 09/18/18 16:00 Mechanical Ventilator Mechanical Ventilator 09/18/18 16:00 99.8 85 18 106/62 100 Mechanical Ventilator 30 09/18/18 16:00 30 09/18/18 15:28 93 20 30 09/18/18 15:00 92 17 116/71 100 Mechanical Ventilator 30 09/18/18 14:00 89 18 114/71 100 Mechanical Ventilator 30 09/18/18 13:00 92 19 116/71 100 Mechanical Ventilator 30 09/18/18 12:47 88 18 100 09/18/18 12:44 92 12 100 09/18/18 12:30 85 17 30 Intake and Output 09/18/18 09/19/18 19:00 07:00 Intake Total 827.5 ml 1131.0 ml Output Total 670 ml 650 ml Balance 157.5 ml 481.0 ml Intake Free Water 60 ml IV Total 637.5 ml 751.0 ml Tube Feeding 130 ml 240 ml Other 140 ml Output Urine Total 550 ml 550 ml Stool Total 120 ml 100 ml Laboratory Tests 09/19/18 04:20: White Blood Count 7.6, Red Blood Count 3.48L, Hemoglobin 10.2L, Hematocrit 31.5L , Mean Corpuscular Volume 91, Mean Corpuscular Hemoglobin 29.3, Mean Corpuscular Hemoglobin Concent 32.3, Red Cell Distribution Width 13.4, Platelet Count 512H, Mean Platelet Volume 5.2L, Neutrophils (%) (Auto) 83.2H, Lymphocytes (%) (Auto) 7.8L, Monocytes (%) (Auto) 6.5, Eosinophils (%) (Auto) 1.2, Basophils (%) (Auto) 1.4, Sodium Level 146H, Potassium Level 3.5, Chloride Level 116H, Carbon Dioxide Level 19L, Anion Gap 11, Blood Urea Nitrogen 5L, Creatinine 1.4H, Estimat Glomerular Filtration Rate 51.7, Glucose Level 112H, Calcium Level 6.9L, Phosphorus Level 2.6, Magnesium Level 1.7L, Total Bilirubin 0.4, Aspartate Amino Transf (AST/SGOT) 19, Alanine Aminotransferase (ALT/SGPT) 15, Alkaline Phosphatase 76, Total Protein 5.2L, Albumin 1.2L, Globulin 4.0, Albumin/Globulin Ratio 0.3L 09/19/18 09:30: Arterial Blood pH 7.423, Arterial Blood Partial Pressure CO2 24.8*L, Arterial Blood Partial Pressure O2 108.7H, Arterial Blood HCO3 15.8*L, Arterial Blood Oxygen Saturation 97.4, Arterial Blood Base Excess -7.1L, Harvey Test Positive Height (Feet): 5 Height (Inches): 5.00 Weight (Pounds): 122 EENT: other - vented Cardiovascular: tachycardia Respiratory/Chest: decreased breath sounds Abdomen: distended Josesito Smalls MD Sep 19, 2018 12:24
--- NOTE | 2018-09-19 14:34 | Cardiac Electrophysiology PN ---
Assessment/Plan Assessment/Plan 1. S/P Septic and hemorrhagic shock with Lactic acidosis. On iv fluids and Abx and off pressors. S/P PRBC 2. Sinus tachycardia with heart rate in 140s due to septic shock and dehydration. No fibrillation. EF of 75%. 3. Troponin elevation due to renal failure. EF 75%. 4. Respiratory failure on the vent. Likely will need Tracheostomy 5. Rhabdomyolysis with CPK in thousands. May be contributing to renal failure. 6. Acute renal failure and severe hyperkalemia. Resolved FU by Dr. Smalls 7. Dysphagia, status post PEG placement. 8. GI bleed. S/P EGD by Dr Clifford ANGULO RN Subjective Subjective On vent off pressors in ICU. EGD showed esophagitis 09/18/18. In SR Objective Last 24 Hour Vital Signs Date Time Temp Pulse Resp B/P (MAP) Pulse Ox O2 Delivery O2 Flow Rate FiO2 09/19/18 13:16 85 13 30 09/19/18 13:00 88 21 96/60 100 Mechanical Ventilator 30 09/19/18 12:00 Mechanical Ventilator Mechanical Ventilator Mechanical Ventilator 09/19/18 12:00 30 09/19/18 12:00 87 09/19/18 12:00 98.6 87 20 96/60 100 Mechanical Ventilator 30 09/19/18 11:03 89 12 30 09/19/18 11:00 89 12 98/64 100 Mechanical Ventilator 30 09/19/18 10:00 90 12 112/69 100 Mechanical Ventilator 30 09/19/18 09:37 99.8 09/19/18 09:00 95 16 118/75 100 Mechanical Ventilator 30 09/19/18 08:50 97 15 30 09/19/18 08:00 89 09/19/18 08:00 30 09/19/18 08:00 100.1 92 9 107/71 100 Mechanical Ventilator 30 09/19/18 08:00 Mechanical Ventilator Mechanical Ventilator Mechanical Ventilator 09/19/18 07:23 85 13 30 09/19/18 07:00 82 12 112/69 100 Mechanical Ventilator 30 09/19/18 06:00 86 13 110/72 100 Mechanical Ventilator 30 09/19/18 05:01 85 12 30 09/19/18 05:00 87 20 114/71 100 Mechanical Ventilator 30 09/19/18 04:00 98.4 86 17 112/80 100 Mechanical Ventilator 30 09/19/18 04:00 30 09/19/18 04:00 Mechanical Ventilator Mechanical Ventilator Mechanical Ventilator 09/19/18 03:17 88 17 30 09/19/18 03:08 81 09/19/18 03:00 86 14 102/65 100 Mechanical Ventilator 30 09/19/18 02:00 89 14 96/62 100 Mechanical Ventilator 30 09/19/18 01:12 79 12 30 09/19/18 01:00 84 22 91/58 100 Mechanical Ventilator 30 09/19/18 00:10 74 09/19/18 00:00 Mechanical Ventilator Mechanical Ventilator Mechanical Ventilator 09/19/18 00:00 30 09/19/18 00:00 98.5 85 12 104/65 100 Mechanical Ventilator 30 09/18/18 23:08 86 12 Mechanical Ventilator 30 09/18/18 23:07 85 12 30 09/18/18 23:00 84 12 98/65 100 Mechanical Ventilator 30 09/18/18 22:00 85 12 107/67 100 Mechanical Ventilator 30 09/18/18 21:13 88 14 30 09/18/18 21:00 91 19 111/68 100 Mechanical Ventilator 30 09/18/18 21:00 111/68 09/18/18 20:00 Mechanical Ventilator Mechanical Ventilator 09/18/18 20:00 99.3 82 15 118/69 100 Mechanical Ventilator 30 09/18/18 20:00 30 09/18/18 19:13 69 12 30 09/18/18 19:10 81 09/18/18 18:00 78 17 114/75 100 Mechanical Ventilator 30 09/18/18 17:15 85 14 30 09/18/18 17:00 81 17 114/68 100 Mechanical Ventilator 30 09/18/18 16:00 84 09/18/18 16:00 Mechanical Ventilator Mechanical Ventilator 09/18/18 16:00 99.8 85 18 106/62 100 Mechanical Ventilator 30 09/18/18 16:00 30 09/18/18 15:28 93 20 30 09/18/18 15:00 92 17 116/71 100 Mechanical Ventilator 30 Intake and Output 09/18/18 09/19/18 19:00 07:00 Intake Total 827.5 ml 1131.0 ml Output Total 670 ml 650 ml Balance 157.5 ml 481.0 ml Intake Free Water 60 ml IV Total 637.5 ml 751.0 ml Tube Feeding 130 ml 240 ml Other 140 ml Output Urine Total 550 ml 550 ml Stool Total 120 ml 100 ml Laboratory Tests Test 09/19/18 04:20 09/19/18 09:30 White Blood Count 7.6 K/UL (4.8-10.8) Red Blood Count 3.48 M/UL (4.70-6.10) L Hemoglobin 10.2 G/DL (14.2-18.0) L Hematocrit 31.5 % (42.0-52.0) L Mean Corpuscular Volume 91 FL (80-99) Mean Corpuscular Hemoglobin 29.3 PG (27.0-31.0) Mean Corpuscular Hemoglobin Concent 32.3 G/DL (32.0-36.0) Red Cell Distribution Width 13.4 % (11.6-14.8) Platelet Count 512 K/UL (150-450) H Mean Platelet Volume 5.2 FL (6.5-10.1) L Neutrophils (%) (Auto) 83.2 % (45.0-75.0) H Lymphocytes (%) (Auto) 7.8 % (20.0-45.0) L Monocytes (%) (Auto) 6.5 % (1.0-10.0) Eosinophils (%) (Auto) 1.2 % (0.0-3.0) Basophils (%) (Auto) 1.4 % (0.0-2.0) Sodium Level 146 MMOL/L (136-145) H Potassium Level 3.5 MMOL/L (3.5-5.1) Chloride Level 116 MMOL/L (98-107) H Carbon Dioxide Level 19 MMOL/L (21-32) L Anion Gap 11 mmol/L (5-15) Blood Urea Nitrogen 5 mg/dL (7-18) L Creatinine 1.4 MG/DL (0.55-1.30) H Estimat Glomerular Filtration Rate 51.7 mL/min (>60) Glucose Level 112 MG/DL (74-106) H Calcium Level 6.9 MG/DL (8.5-10.1) L Phosphorus Level 2.6 MG/DL (2.5-4.9) Magnesium Level 1.7 MG/DL (1.8-2.4) L Total Bilirubin 0.4 MG/DL (0.2-1.0) Aspartate Amino Transf (AST/SGOT) 19 U/L (15-37) Alanine Aminotransferase (ALT/SGPT) 15 U/L (12-78) Alkaline Phosphatase 76 U/L (46-116) Total Protein 5.2 G/DL (6.4-8.2) L Albumin 1.2 G/DL (3.4-5.0) L Globulin 4.0 g/dL Albumin/Globulin Ratio 0.3 (1.0-2.7) L Arterial Blood pH 7.423 (7.350-7.450) Arterial Blood Partial Pressure CO2 24.8 mmHg (35.0-45.0) *L Arterial Blood Partial Pressure O2 108.7 mmHg (75.0-100.0) H Arterial Blood HCO3 15.8 mmol/L (22.0-26.0) *L Arterial Blood Oxygen Saturation 97.4 % (95-100) Arterial Blood Base Excess -7.1 (-2-2) L Harvey Test Positive Microbiology Date/Time Source Procedure Growth Status 09/17/18 03:47 Sputum Gram Stain - Final Resulted 09/17/18 03:47 Sputum Culture - Preliminary YEAST Resulted Objective HEENT: Orally intubated. LUNGS: Coarse rhonchi. CARDIOVASCULAR: Tachycardic S1 and S2. ABDOMEN: G-tube connected to suction. EXTREMITIES: No pitting edema. Jasbir Madsen MD Sep 19, 2018 14:34
--- NOTE | 2018-09-19 14:45 | Progress Note ---
DATE: 09/19/2018 SUBJECTIVE: This patient is a 62-year-old male in the ICU, still confused, nonverbal, but still continued to have and psychomotor agitation. That is why, he requires daily psychiatric consultation, has been requested by the attending physician. MENTAL STATUS EXAMINATION: This is a 62-year-old male. Appearance is disheveled. Attitude, irritable and agitated. Affect flat. Intellect poor. Mood, depressed and anxious. Motor activity, psychomotor agitation. Attention span is poor. Orientation x1 only. No signs of any suicidal or homicidal ideation. Insight and judgment is poor. DIAGNOSIS: Paranoid schizophrenia. PLAN: Continue him on Risperdal and continue to be followed by Psychiatry to help prevent any further decline in his cognition below his baseline. He has altered mental status. His cognition has declined below his baseline. Seen and assessed in the ICU. . Virgie Mcdermott M.D. DR: JAYSON JOB#: [id number] CC:
--- NOTE | 2018-09-19 17:08 | GI Progress Note ---
Assessment/Plan Problems: (1) G tube feedings ICD Codes: Z93.1 - Gastrostomy status SNOMED: 765413922, 981904193 (2) Protein-calorie malnutrition, severe ICD Codes: E43 - Unspecified severe protein-calorie malnutrition SNOMED: 009179958 (3) Anemia ICD Codes: D64.9 - Anemia, unspecified SNOMED: 815088824 (4) GI bleed ICD Codes: K92.2 - Gastrointestinal hemorrhage, unspecified SNOMED: 16741539 Status: stable Status Narrative Discussed with Dr. Horton. Assessment/Plan cdiff negative OB stool negative SUMMARY OF FINDINGS: 1. Distal esophagitis. 2. Malposition of G-tube replaced with a 20-Romansh pull type of G-tube successfully. RECOMMENDATIONS: There is no any active bleeding, so we are going to resume tubefeeding. prn transfusion ppi erythromycin GT for GI motility fu labs The patient was seen and examined at bedside and all new and available data was reviewed in the patients chart. I agree with the above findings, impression and plan. (Patient seen earlier today. Signature stamp does not reflect patient encounter time.). - Arthur Horton MD Subjective Subjective limited Objective Last 24 Hour Vital Signs Date Time Temp Pulse Resp B/P (MAP) Pulse Ox O2 Delivery O2 Flow Rate FiO2 09/19/18 16:00 100 22 106/68 100 Mechanical Ventilator 30 09/19/18 16:00 105 09/19/18 16:00 Mechanical Ventilator Mechanical Ventilator Mechanical Ventilator 09/19/18 16:00 30 09/19/18 15:03 86 13 30 09/19/18 15:00 85 22 104/64 100 Mechanical Ventilator 30 09/19/18 14:00 96 17 99/68 100 Mechanical Ventilator 30 09/19/18 13:16 85 13 30 09/19/18 13:00 88 21 96/60 100 Mechanical Ventilator 30 09/19/18 12:00 Mechanical Ventilator Mechanical Ventilator Mechanical Ventilator 09/19/18 12:00 30 09/19/18 12:00 87 09/19/18 12:00 98.6 87 20 96/60 100 Mechanical Ventilator 30 09/19/18 11:03 89 12 30 09/19/18 11:00 89 12 98/64 100 Mechanical Ventilator 30 09/19/18 10:00 90 12 112/69 100 Mechanical Ventilator 30 09/19/18 09:37 99.8 09/19/18 09:00 95 16 118/75 100 Mechanical Ventilator 30 09/19/18 08:50 97 15 30 09/19/18 08:00 89 09/19/18 08:00 30 09/19/18 08:00 100.1 92 9 107/71 100 Mechanical Ventilator 30 09/19/18 08:00 Mechanical Ventilator Mechanical Ventilator Mechanical Ventilator 09/19/18 07:23 85 13 30 09/19/18 07:00 82 12 112/69 100 Mechanical Ventilator 30 09/19/18 06:00 86 13 110/72 100 Mechanical Ventilator 30 09/19/18 05:01 85 12 30 09/19/18 05:00 87 20 114/71 100 Mechanical Ventilator 30 09/19/18 04:00 98.4 86 17 112/80 100 Mechanical Ventilator 30 09/19/18 04:00 30 09/19/18 04:00 Mechanical Ventilator Mechanical Ventilator Mechanical Ventilator 09/19/18 03:17 88 17 30 09/19/18 03:08 81 09/19/18 03:00 86 14 102/65 100 Mechanical Ventilator 30 09/19/18 02:00 89 14 96/62 100 Mechanical Ventilator 30 09/19/18 01:12 79 12 30 09/19/18 01:00 84 22 91/58 100 Mechanical Ventilator 30 09/19/18 00:10 74 09/19/18 00:00 Mechanical Ventilator Mechanical Ventilator Mechanical Ventilator 09/19/18 00:00 30 09/19/18 00:00 98.5 85 12 104/65 100 Mechanical Ventilator 30 09/18/18 23:08 86 12 Mechanical Ventilator 30 09/18/18 23:07 85 12 30 09/18/18 23:00 84 12 98/65 100 Mechanical Ventilator 30 09/18/18 22:00 85 12 107/67 100 Mechanical Ventilator 30 09/18/18 21:13 88 14 30 09/18/18 21:00 91 19 111/68 100 Mechanical Ventilator 30 09/18/18 21:00 111/68 09/18/18 20:00 Mechanical Ventilator Mechanical Ventilator 09/18/18 20:00 99.3 82 15 118/69 100 Mechanical Ventilator 30 09/18/18 20:00 30 09/18/18 19:13 69 12 30 09/18/18 19:10 81 09/18/18 18:00 78 17 114/75 100 Mechanical Ventilator 30 09/18/18 17:15 85 14 30 Intake and Output 09/18/18 09/19/18 19:00 07:00 Intake Total 827.5 ml 1131.0 ml Output Total 670 ml 650 ml Balance 157.5 ml 481.0 ml Intake Free Water 60 ml IV Total 637.5 ml 751.0 ml Tube Feeding 130 ml 240 ml Other 140 ml Output Urine Total 550 ml 550 ml Stool Total 120 ml 100 ml Laboratory Tests Test 09/19/18 04:20 09/19/18 09:30 White Blood Count 7.6 K/UL (4.8-10.8) Red Blood Count 3.48 M/UL (4.70-6.10) L Hemoglobin 10.2 G/DL (14.2-18.0) L Hematocrit 31.5 % (42.0-52.0) L Mean Corpuscular Volume 91 FL (80-99) Mean Corpuscular Hemoglobin 29.3 PG (27.0-31.0) Mean Corpuscular Hemoglobin Concent 32.3 G/DL (32.0-36.0) Red Cell Distribution Width 13.4 % (11.6-14.8) Platelet Count 512 K/UL (150-450) H Mean Platelet Volume 5.2 FL (6.5-10.1) L Neutrophils (%) (Auto) 83.2 % (45.0-75.0) H Lymphocytes (%) (Auto) 7.8 % (20.0-45.0) L Monocytes (%) (Auto) 6.5 % (1.0-10.0) Eosinophils (%) (Auto) 1.2 % (0.0-3.0) Basophils (%) (Auto) 1.4 % (0.0-2.0) Sodium Level 146 MMOL/L (136-145) H Potassium Level 3.5 MMOL/L (3.5-5.1) Chloride Level 116 MMOL/L (98-107) H Carbon Dioxide Level 19 MMOL/L (21-32) L Anion Gap 11 mmol/L (5-15) Blood Urea Nitrogen 5 mg/dL (7-18) L Creatinine 1.4 MG/DL (0.55-1.30) H Estimat Glomerular Filtration Rate 51.7 mL/min (>60) Glucose Level 112 MG/DL (74-106) H Calcium Level 6.9 MG/DL (8.5-10.1) L Phosphorus Level 2.6 MG/DL (2.5-4.9) Magnesium Level 1.7 MG/DL (1.8-2.4) L Total Bilirubin 0.4 MG/DL (0.2-1.0) Aspartate Amino Transf (AST/SGOT) 19 U/L (15-37) Alanine Aminotransferase (ALT/SGPT) 15 U/L (12-78) Alkaline Phosphatase 76 U/L (46-116) Total Protein 5.2 G/DL (6.4-8.2) L Albumin 1.2 G/DL (3.4-5.0) L Globulin 4.0 g/dL Albumin/Globulin Ratio 0.3 (1.0-2.7) L Arterial Blood pH 7.423 (7.350-7.450) Arterial Blood Partial Pressure CO2 24.8 mmHg (35.0-45.0) *L Arterial Blood Partial Pressure O2 108.7 mmHg (75.0-100.0) H Arterial Blood HCO3 15.8 mmol/L (22.0-26.0) *L Arterial Blood Oxygen Saturation 97.4 % (95-100) Arterial Blood Base Excess -7.1 (-2-2) L Harvey Test Positive Height (Feet): 5 Height (Inches): 5.00 Weight (Pounds): 122 General Appearance: WD/WN, no apparent distress, alert Cardiovascular: normal rate Respiratory/Chest: normal breath sounds, no respiratory distress, other - trach Abdominal Exam: normal bowel sounds, non tender, soft, GT site - replaced Extremities: non-tender Becki Holt NP Sep 19, 2018 17:08
[2018-09-19] MEDS: LORazepam 1mg tab ORAL PRN (17:47)
--- NOTE | 2018-09-19 18:27 | General Progress Note ---
Assessment/Plan Problem List: (1) GI bleed ICD Codes: K92.2 - Gastrointestinal hemorrhage, unspecified SNOMED: 42738985 (2) Protein-calorie malnutrition, severe ICD Codes: E43 - Unspecified severe protein-calorie malnutrition SNOMED: 113262258 (3) Septic shock ICD Codes: A41.9 - Sepsis, unspecified organism; R65.21 - Severe sepsis with septic shock SNOMED: 36424067 Status: progressing Assessment/Plan moniter for gi bleed anemia check h/h sepsis afebrile reviewed chart and labs and meds Subjective ROS Limited/Unobtainable: Yes Allergies: Coded Allergies: No Known Allergies (Unverified , 08/14/18) Objective Last 24 Hour Vital Signs Date Time Temp Pulse Resp B/P (MAP) Pulse Ox O2 Delivery O2 Flow Rate FiO2 09/19/18 17:28 83 12 30 09/19/18 16:00 100 22 106/68 100 Mechanical Ventilator 30 09/19/18 16:00 105 09/19/18 16:00 Mechanical Ventilator Mechanical Ventilator Mechanical Ventilator 09/19/18 16:00 30 09/19/18 15:03 86 13 30 09/19/18 15:00 85 22 104/64 100 Mechanical Ventilator 30 09/19/18 14:00 96 17 99/68 100 Mechanical Ventilator 30 09/19/18 13:16 85 13 30 09/19/18 13:00 88 21 96/60 100 Mechanical Ventilator 30 09/19/18 12:00 Mechanical Ventilator Mechanical Ventilator Mechanical Ventilator 09/19/18 12:00 30 09/19/18 12:00 87 09/19/18 12:00 98.6 87 20 96/60 100 Mechanical Ventilator 30 09/19/18 11:03 89 12 30 09/19/18 11:00 89 12 98/64 100 Mechanical Ventilator 30 09/19/18 10:00 90 12 112/69 100 Mechanical Ventilator 30 09/19/18 09:37 99.8 09/19/18 09:00 95 16 118/75 100 Mechanical Ventilator 30 09/19/18 08:50 97 15 30 09/19/18 08:00 89 09/19/18 08:00 30 09/19/18 08:00 100.1 92 9 107/71 100 Mechanical Ventilator 30 09/19/18 08:00 Mechanical Ventilator Mechanical Ventilator Mechanical Ventilator 09/19/18 07:23 85 13 30 09/19/18 07:00 82 12 112/69 100 Mechanical Ventilator 30 09/19/18 06:00 86 13 110/72 100 Mechanical Ventilator 30 09/19/18 05:01 85 12 30 09/19/18 05:00 87 20 114/71 100 Mechanical Ventilator 30 09/19/18 04:00 98.4 86 17 112/80 100 Mechanical Ventilator 30 09/19/18 04:00 30 09/19/18 04:00 Mechanical Ventilator Mechanical Ventilator Mechanical Ventilator 09/19/18 03:17 88 17 30 09/19/18 03:08 81 09/19/18 03:00 86 14 102/65 100 Mechanical Ventilator 30 09/19/18 02:00 89 14 96/62 100 Mechanical Ventilator 30 09/19/18 01:12 79 12 30 09/19/18 01:00 84 22 91/58 100 Mechanical Ventilator 30 09/19/18 00:10 74 09/19/18 00:00 Mechanical Ventilator Mechanical Ventilator Mechanical Ventilator 09/19/18 00:00 30 09/19/18 00:00 98.5 85 12 104/65 100 Mechanical Ventilator 30 09/18/18 23:08 86 12 Mechanical Ventilator 30 09/18/18 23:07 85 12 30 09/18/18 23:00 84 12 98/65 100 Mechanical Ventilator 30 09/18/18 22:00 85 12 107/67 100 Mechanical Ventilator 30 09/18/18 21:13 88 14 30 09/18/18 21:00 91 19 111/68 100 Mechanical Ventilator 30 09/18/18 21:00 111/68 09/18/18 20:00 Mechanical Ventilator Mechanical Ventilator 09/18/18 20:00 99.3 82 15 118/69 100 Mechanical Ventilator 30 09/18/18 20:00 30 09/18/18 19:13 69 12 30 09/18/18 19:10 81 Intake and Output 09/18/18 09/19/18 19:00 07:00 Intake Total 827.5 ml 1131.0 ml Output Total 670 ml 650 ml Balance 157.5 ml 481.0 ml Intake Free Water 60 ml IV Total 637.5 ml 751.0 ml Tube Feeding 130 ml 240 ml Other 140 ml Output Urine Total 550 ml 550 ml Stool Total 120 ml 100 ml Laboratory Tests 09/19/18 04:20: White Blood Count 7.6, Red Blood Count 3.48L, Hemoglobin 10.2L, Hematocrit 31.5L , Mean Corpuscular Volume 91, Mean Corpuscular Hemoglobin 29.3, Mean Corpuscular Hemoglobin Concent 32.3, Red Cell Distribution Width 13.4, Platelet Count 512H, Mean Platelet Volume 5.2L, Neutrophils (%) (Auto) 83.2H, Lymphocytes (%) (Auto) 7.8L, Monocytes (%) (Auto) 6.5, Eosinophils (%) (Auto) 1.2, Basophils (%) (Auto) 1.4, Sodium Level 146H, Potassium Level 3.5, Chloride Level 116H, Carbon Dioxide Level 19L, Anion Gap 11, Blood Urea Nitrogen 5L, Creatinine 1.4H, Estimat Glomerular Filtration Rate 51.7, Glucose Level 112H, Calcium Level 6.9L, Phosphorus Level 2.6, Magnesium Level 1.7L, Total Bilirubin 0.4, Aspartate Amino Transf (AST/SGOT) 19, Alanine Aminotransferase (ALT/SGPT) 15, Alkaline Phosphatase 76, Total Protein 5.2L, Albumin 1.2L, Globulin 4.0, Albumin/Globulin Ratio 0.3L 09/19/18 09:30: Arterial Blood pH 7.423, Arterial Blood Partial Pressure CO2 24.8*L, Arterial Blood Partial Pressure O2 108.7H, Arterial Blood HCO3 15.8*L, Arterial Blood Oxygen Saturation 97.4, Arterial Blood Base Excess -7.1L, Harvey Test Positive Height (Feet): 5 Height (Inches): 5.00 Weight (Pounds): 122 Cardiovascular: normal rate Respiratory/Chest: lungs clear Pinky Bhatia MD Sep 19, 2018 18:27
[2018-09-19] MEDS: Dyna-Hex 2% Top Sol 2oz TOPIC SCH (19:43)
[2018-09-19] MEDS ORDERED: NS 275ml ONE (20:09)
[2018-09-19] MEDS ORDERED: Tubing IV Secondary IV ONE (20:09)
[2018-09-19] MEDS ORDERED: D5NS 1000ml IV ONE (20:09)
[2018-09-19] MEDS: Norepinephrine Bitartrate 8 MG in D5W 500ml 550 ML IV SCH (20:39)
[2018-09-20] VITALS (24 sets, daily range): BP systolic 92–126; BP diastolic 61–88
[2018-09-20] MEDS: D5NS 1,000 ML IV SCH ×2 (04:25→22:55)
--- NOTE | 2018-09-20 04:45 | Procedure Note ---
DATE OF PROCEDURE: 09/18/2018 SURGEON: Arthur Horton M.D. ANESTHESIOLOGIST: Dr. Dunham. PROCEDURE: Upper endoscopy with PEG placement. ANESTHESIA: Per Dr. Trenton Edwards. INSTRUMENT: Olympus adult flexible upper endoscope. INDICATION: Upper GI bleeding. The procedure, risks, benefits, and possible consequences, including hemorrhage, aspiration, perforation and infection, and alternative treatments, were explained to the patient/legal guardian by Dr. Arthur Hotron and the patient/legal guardian understood and accepted these risks. PROCEDURE IN DETAIL: After informed consent was obtained and the patient was adequately sedated, the Olympus upper endoscope was advanced from the mouth into second portion of the duodenum and retroflexion was performed in the stomach. The patient had evidence of diffuse distal esophagitis, not actively bleeding at this time. In the stomach, there was diffuse gastritis. We noticed that the G-tube was not in place. We deflated the balloon. Most probably, the G-tube was under the skin of the gastric wall. We tried to push the G-tube back in, we could not. We opened a new G-tube kit. We passed a wire through the same hole, grabbed it with a snare, and over the wire, we placed a 20-Icelandic pull type of G-tube successfully. The patient tolerated the procedure very well without any complication. SUMMARY OF FINDINGS: 1. Distal esophagitis. 2. Malposition of G-tube, replaced with a 20-Icelandic pull type of G-tube successfully. RECOMMENDATIONS: 1. Abdominal binder. 2. Elevate the head of the bed at all times. 3. There is no any active bleeding, so we are going to resume tube feeding. 4. PPI daily. I want to thank Dr. Jasmeet Reynoso for this kind referral. Arthur Horton M.D. DR: Luis Manuel JOB#: [id number] CC: Jasmeet Reynoso D.O.
[2018-09-20 05:12] LABS: HEMATOCRIT 29.2 % (42.0-52.0); HEMOGLOBIN 9.7 G/DL (14.2-18.0); MEAN CORPUSCULAR VOLUME 89 FL (80-99); PLATELET COUNT 510 K/UL (150-450); RED BLOOD COUNT 3.27 M/UL (4.70-6.10); RED CELL DISTRIBUTION WIDTH 13.4 % (11.6-14.8); WHITE BLOOD COUNT 9.1 K/UL (4.8-10.8)
[2018-09-20 05:29] LABS: ALANINE AMINOTRANSFERASE 14 U/L (12-78); ALBUMIN 1.2 G/DL (3.4-5.0); ALBUMIN/GLOBULIN RATIO 0.3 (1.0-2.7); ALKALINE PHOSPHATASE 86 U/L (46-116); ANION GAP 11 mmol/L (5-15); ASPARTATE AMINO TRANSFERASE 18 U/L (15-37); BILIRUBIN,TOTAL 0.4 MG/DL (0.2-1.0); BLOOD UREA NITROGEN 6 mg/dL (7-18); CALCIUM 7.1 MG/DL (8.5-10.1); CARBON DIOXIDE 17 MMOL/L (21-32); CHLORIDE 117 MMOL/L (98-107); CREATININE 1.3 MG/DL (0.55-1.30); PHOSPHORUS 2.2 MG/DL (2.5-4.9); POTASSIUM 3.3 MMOL/L (3.5-5.1); SODIUM 145 MMOL/L (136-145)
[2018-09-20] MEDS: Erythromycin Ethylsuccinate 200mg/5ml Susp GT SCH ×3 (05:43→17:45)
[2018-09-20] MEDS: NovoLOG Insulin Flexpen SUBQ SCH ×3 (05:43→17:51)
[2018-09-20] MEDS: Acetaminophen 650mg/20.3ml NG PRN ×2 (08:07→17:45)
[2018-09-20] MEDS: Pantoprazole Inj IVP SCH ×2 (08:08→20:45)
[2018-09-20] MEDS: Heparin 5000 units/ml inj SUBQ SCH ×2 (08:19→20:46)
--- NOTE | 2018-09-20 09:04 | Infectious Diseases Prog Note ---
Assessment/Plan Assessment/Plan 62 yo male with PMHx of Quadriplegia with G-tube, HTN, DM and Schizophenia who was sent to the ED fromhis care home for AMS. Sepsis - Probably PNA but will f/u other cultures No intubated on vent 45% CXR 09/07/18 - possible left sided consolidation Inf neg 09/07/18 BCx 2/2 sets diphteroids, 1/2 setse S. epi (contaminants); 2/ Bcx NTD 09/07/18 SCx - NF 09/07/18 UCx - Neg 09/09 Cdiff neg No leukocytosis Febrile to 103 on admit; improving HTN DM Schizophenia Quadriplegia. G- tube dependent Plan - Check Urine Cx - 09/19/18 SP Zosyn #10 - 09/17/18 SP Vancmocyin #10 - 09/09/18 Ertapenem #3 pending Cx - Monitor CBC and temps We will continue to follow the patient during this hospitalization. Subjective Allergies: Coded Allergies: No Known Allergies (Unverified , 08/14/18) Subjective Tmax 100.6 No leukocytosis On vent Objective Vital Signs Last 24 Hour Vital Signs Date Time Temp Pulse Resp B/P (MAP) Pulse Ox O2 Delivery O2 Flow Rate FiO2 09/20/18 08:00 Mechanical Ventilator Mechanical Ventilator 09/20/18 08:00 30 09/20/18 08:00 92 09/20/18 08:00 100.6 98 16 116/69 100 Mechanical Ventilator 30 09/20/18 07:08 97 13 30 09/20/18 07:00 99 12 114/73 100 Mechanical Ventilator 30 09/20/18 06:00 97 12 110/71 100 Mechanical Ventilator 30 09/20/18 05:30 101 15 30 09/20/18 05:00 97 12 115/74 100 Mechanical Ventilator 30 09/20/18 04:00 99.4 101 12 114/72 100 Mechanical Ventilator 30 09/20/18 04:00 30 09/20/18 04:00 Mechanical Ventilator Mechanical Ventilator Mechanical Ventilator 09/20/18 03:31 104 09/20/18 03:28 100 17 30 09/20/18 03:00 105 23 109/72 100 Mechanical Ventilator 30 09/20/18 02:00 95 14 108/72 100 Mechanical Ventilator 30 09/20/18 01:00 105 16 108/69 100 Mechanical Ventilator 30 09/20/18 00:47 115 19 30 09/20/18 00:00 99.7 99 17 115/71 100 Mechanical Ventilator 30 09/20/18 00:00 Mechanical Ventilator Mechanical Ventilator Mechanical Ventilator 09/20/18 00:00 30 09/19/18 23:30 104 14 30 09/19/18 23:05 99 09/19/18 23:00 100 14 119/75 100 Mechanical Ventilator 30 09/19/18 22:00 101 14 117/75 100 Mechanical Ventilator 30 09/19/18 21:30 91 13 30 09/19/18 21:00 98 13 113/74 100 Mechanical Ventilator 30 09/19/18 20:39 113/76 09/19/18 20:00 30 09/19/18 20:00 98.5 97 14 113/76 100 Mechanical Ventilator 30 09/19/18 20:00 Mechanical Ventilator Mechanical Ventilator Mechanical Ventilator 09/19/18 19:30 96 13 30 09/19/18 19:08 98 09/19/18 19:00 98 22 115/74 100 Mechanical Ventilator 30 09/19/18 18:00 95 22 115/76 100 Mechanical Ventilator 30 09/19/18 17:28 83 12 30 09/19/18 17:00 99.0 101 22 115/76 100 Mechanical Ventilator 30 09/19/18 16:00 100 22 106/68 100 Mechanical Ventilator 30 09/19/18 16:00 105 09/19/18 16:00 Mechanical Ventilator Mechanical Ventilator Mechanical Ventilator 09/19/18 16:00 30 09/19/18 15:03 86 13 30 09/19/18 15:00 85 22 104/64 100 Mechanical Ventilator 30 09/19/18 14:00 96 17 99/68 100 Mechanical Ventilator 30 09/19/18 13:16 85 13 30 09/19/18 13:00 88 21 96/60 100 Mechanical Ventilator 30 09/19/18 12:00 Mechanical Ventilator Mechanical Ventilator Mechanical Ventilator 09/19/18 12:00 30 09/19/18 12:00 87 09/19/18 12:00 98.6 87 20 96/60 100 Mechanical Ventilator 30 09/19/18 11:03 89 12 30 09/19/18 11:00 89 12 98/64 100 Mechanical Ventilator 30 09/19/18 10:00 90 12 112/69 100 Mechanical Ventilator 30 09/19/18 09:37 99.8 Height (Feet): 5 Height (Inches): 5.00 Weight (Pounds): 120 Objective Gen: NAD, On vent HEENT: NCAT, MMM, EOMI LUNGS: CTAB ABD: Soft, NT, distended, + BS,G tube (No E/P) NEURO: Intubated, not following Laboratory Tests Test 09/19/18 09:30 09/20/18 04:20 Arterial Blood pH 7.423 (7.350-7.450) Arterial Blood Partial Pressure CO2 24.8 mmHg (35.0-45.0) *L Arterial Blood Partial Pressure O2 108.7 mmHg (75.0-100.0) H Arterial Blood HCO3 15.8 mmol/L (22.0-26.0) *L Arterial Blood Oxygen Saturation 97.4 % (95-100) Arterial Blood Base Excess -7.1 (-2-2) L Harvey Test Positive White Blood Count 9.1 K/UL (4.8-10.8) Red Blood Count 3.27 M/UL (4.70-6.10) L Hemoglobin 9.7 G/DL (14.2-18.0) L Hematocrit 29.2 % (42.0-52.0) L Mean Corpuscular Volume 89 FL (80-99) Mean Corpuscular Hemoglobin 29.6 PG (27.0-31.0) Mean Corpuscular Hemoglobin Concent 33.1 G/DL (32.0-36.0) Red Cell Distribution Width 13.4 % (11.6-14.8) Platelet Count 510 K/UL (150-450) H Mean Platelet Volume 5.1 FL (6.5-10.1) L Neutrophils (%) (Auto) % (45.0-75.0) Lymphocytes (%) (Auto) % (20.0-45.0) Monocytes (%) (Auto) % (1.0-10.0) Eosinophils (%) (Auto) % (0.0-3.0) Basophils (%) (Auto) % (0.0-2.0) Neutrophils % (Manual) Pending Lymphocytes % (Manual) Pending Platelet Estimate Pending Platelet Morphology Pending Sodium Level 145 MMOL/L (136-145) Potassium Level 3.3 MMOL/L (3.5-5.1) L Chloride Level 117 MMOL/L (98-107) H Carbon Dioxide Level 17 MMOL/L (21-32) L Anion Gap 11 mmol/L (5-15) Blood Urea Nitrogen 6 mg/dL (7-18) L Creatinine 1.3 MG/DL (0.55-1.30) Estimat Glomerular Filtration Rate 56.3 mL/min (>60) Glucose Level 110 MG/DL (74-106) H Calcium Level 7.1 MG/DL (8.5-10.1) L Phosphorus Level 2.2 MG/DL (2.5-4.9) L Magnesium Level 1.8 MG/DL (1.8-2.4) Total Bilirubin 0.4 MG/DL (0.2-1.0) Aspartate Amino Transf (AST/SGOT) 18 U/L (15-37) Alanine Aminotransferase (ALT/SGPT) 14 U/L (12-78) Alkaline Phosphatase 86 U/L (46-116) Total Protein 5.0 G/DL (6.4-8.2) L Albumin 1.2 G/DL (3.4-5.0) L Globulin 3.8 g/dL Albumin/Globulin Ratio 0.3 (1.0-2.7) L Current Medications Medications (Trade) Dose Ordered Sig/Julito Route PRN Reason Start Time Stop Time Status Last Admin Dose Admin Acetaminophen (Tylenol) 650 mg Q4H PRN NG Mild Pain/Temp > 100.5 09/08/18 13:30 10/08/18 13:29 09/20/18 08:07 Albuterol/ Ipratropium (Albuterol/ Ipratropium) 3 ml Q4H PRN HHN sob 09/16/18 11:30 09/22/18 11:29 Chlorhexidine Gluconate (Camila-Hex 2%) 1 applic DAILY@2000 TOPIC 09/15/18 20:00 10/15/18 19:59 09/19/18 19:43 Dextrose (Dextrose 50%) 25 ml Q30M PRN IV Hypoglycemia 09/08/18 13:30 10/08/18 13:29 Dextrose (Dextrose 50%) 50 ml Q30M PRN IV Hypoglycemia 09/08/18 13:30 10/08/18 13:29 09/17/18 00:30 Dextrose/Sodium Chloride 1,000 ml @ 50 mls/hr Q20H IV 09/13/18 13:45 10/13/18 13:44 09/20/18 04:25 Erythromycin (Jossue-Ped) 200 mg Q6HR GT 09/14/18 18:00 09/21/18 17:59 09/20/18 05:43 Heparin Sodium (Porcine) (Heparin 5000 units/ml) 5,000 units EVERY 12 HOURS SUBQ 09/07/18 21:00 10/07/18 20:59 09/20/18 08:19 Insulin Aspart (NovoLOG) Q6HR SUBQ 09/17/18 18:00 10/08/18 14:29 09/19/18 23:38 Loperamide HCl (Imodium) 4 mg TIDPRN PRN ORAL Diarrhea 09/10/18 13:00 10/10/18 12:59 09/11/18 03:51 Lorazepam (Ativan) 1 mg Q6H PRN ORAL For Anxiety 09/16/18 12:00 09/22/18 11:59 09/19/18 17:47 Midodrine (Pro-Amatine) 2.5 mg THREE TIMES A DAY GT 09/13/18 18:00 10/13/18 17:59 09/19/18 12:38 Norepinephrine Bitartrate 8 mg/ Dextrose 558 ml @ 0 mls/hr Q24H IV 09/08/18 21:00 10/08/18 20:59 09/10/18 18:37 Ondansetron HCl (Zofran) 4 mg Q6H PRN IVP Nausea & Vomiting 09/07/18 15:15 10/07/18 15:14 Pantoprazole (Protonix) 40 mg Q12HR IVP 09/07/18 21:00 10/08/18 08:59 09/20/18 08:08 Polyethylene Glycol (Miralax) 17 gm DAILYPRN PRN ORAL Constipation 09/07/18 15:15 10/07/18 15:14 Risperidone (RisperDAL) 0.25 mg QHS ORAL 09/10/18 21:00 10/10/18 20:59 09/19/18 20:38 Sodium Chloride 500 ml @ 999 mls/hr Q31M PRN IV SBP<90mmHg 09/08/18 11:00 10/08/18 10:59 09/08/18 12:34 Asim De Leon MD Sep 20, 2018 09:04
[2018-09-20] MEDS: LORazepam 1mg tab ORAL PRN ×2 (09:35→17:46)
[2018-09-20] MEDS ORDERED: Potassium Phosphate 30 MM in NS 275 ML IV ONE (11:00)
--- NOTE | 2018-09-20 11:41 | Pulmonolgy Critical Care Note ---
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 - Objective Last 24 Hour Vital Signs Date Time Temp Pulse Resp B/P (MAP) Pulse Ox O2 Delivery O2 Flow Rate FiO2 09/20/18 11:06 83 12 30 09/20/18 11:00 82 14 102/66 100 Mechanical Ventilator 30 09/20/18 10:00 86 12 104/64 100 Mechanical Ventilator 30 09/20/18 09:08 95 13 30 09/20/18 09:00 96 14 106/64 100 Mechanical Ventilator 30 09/20/18 08:37 99.6 09/20/18 08:00 Mechanical Ventilator Mechanical Ventilator 09/20/18 08:00 30 09/20/18 08:00 92 09/20/18 08:00 100.6 98 16 116/69 100 Mechanical Ventilator 30 09/20/18 07:08 97 13 30 09/20/18 07:00 99 12 114/73 100 Mechanical Ventilator 30 09/20/18 06:00 97 12 110/71 100 Mechanical Ventilator 30 09/20/18 05:30 101 15 30 09/20/18 05:00 97 12 115/74 100 Mechanical Ventilator 30 09/20/18 04:00 99.4 101 12 114/72 100 Mechanical Ventilator 30 09/20/18 04:00 30 09/20/18 04:00 Mechanical Ventilator Mechanical Ventilator Mechanical Ventilator 09/20/18 03:31 104 09/20/18 03:28 100 17 30 09/20/18 03:00 105 23 109/72 100 Mechanical Ventilator 30 09/20/18 02:00 95 14 108/72 100 Mechanical Ventilator 30 09/20/18 01:00 105 16 108/69 100 Mechanical Ventilator 30 09/20/18 00:47 115 19 30 09/20/18 00:00 99.7 99 17 115/71 100 Mechanical Ventilator 30 09/20/18 00:00 Mechanical Ventilator Mechanical Ventilator Mechanical Ventilator 09/20/18 00:00 30 09/19/18 23:30 104 14 30 09/19/18 23:05 99 09/19/18 23:00 100 14 119/75 100 Mechanical Ventilator 30 09/19/18 22:00 101 14 117/75 100 Mechanical Ventilator 30 09/19/18 21:30 91 13 30 09/19/18 21:00 98 13 113/74 100 Mechanical Ventilator 30 09/19/18 20:39 113/76 09/19/18 20:00 30 09/19/18 20:00 98.5 97 14 113/76 100 Mechanical Ventilator 30 09/19/18 20:00 Mechanical Ventilator Mechanical Ventilator Mechanical Ventilator 09/19/18 19:30 96 13 30 09/19/18 19:08 98 09/19/18 19:00 98 22 115/74 100 Mechanical Ventilator 30 09/19/18 18:00 95 22 115/76 100 Mechanical Ventilator 30 09/19/18 17:28 83 12 30 09/19/18 17:00 99.0 101 22 115/76 100 Mechanical Ventilator 30 09/19/18 16:00 100 22 106/68 100 Mechanical Ventilator 30 09/19/18 16:00 105 09/19/18 16:00 Mechanical Ventilator Mechanical Ventilator Mechanical Ventilator 09/19/18 16:00 30 09/19/18 15:03 86 13 30 09/19/18 15:00 85 22 104/64 100 Mechanical Ventilator 30 09/19/18 14:00 96 17 99/68 100 Mechanical Ventilator 30 09/19/18 13:16 85 13 30 09/19/18 13:00 88 21 96/60 100 Mechanical Ventilator 30 09/19/18 12:00 Mechanical Ventilator Mechanical Ventilator Mechanical Ventilator 09/19/18 12:00 30 09/19/18 12:00 87 09/19/18 12:00 98.6 87 20 96/60 100 Mechanical Ventilator 30 Status: awake HEENT: atraumatic Lungs: clear Heart: HR/BP stable, regular Abdomen: non-tender, feeding tube Extremities: no C/C/E, edema Accucheck: 98 Critical Care - Subjective ROS Limited/Unobtainable: Yes Interval Events: looks comfortable FI02: 30 Vent Support Breath Rate: 12 Vent Support Mode: AC Vent Tidal Volume: 600 Sputum Amount: Small PEEP: 0.0 PIP: 27 Tube Feeding Amount: 20 I&O: Intake and Output 09/19/18 09/20/18 19:00 07:00 Intake Total 832.5 ml 1210 ml Output Total 915 ml 690 ml Balance -82.5 ml 520 ml Intake Free Water 180 ml IV Total 432.5 ml 650 ml Tube Feeding 220 ml 360 ml Other 200 ml Output Urine Total 515 ml 590 ml Stool Total 400 ml 100 ml ET-Tube: 7.5 ET Position: 23 Labs: Laboratory Tests Test 09/20/18 04:20 White Blood Count 9.1 K/UL (4.8-10.8) Red Blood Count 3.27 M/UL (4.70-6.10) L Hemoglobin 9.7 G/DL (14.2-18.0) L Hematocrit 29.2 % (42.0-52.0) L Mean Corpuscular Volume 89 FL (80-99) Mean Corpuscular Hemoglobin 29.6 PG (27.0-31.0) Mean Corpuscular Hemoglobin Concent 33.1 G/DL (32.0-36.0) Red Cell Distribution Width 13.4 % (11.6-14.8) Platelet Count 510 K/UL (150-450) H Mean Platelet Volume 5.1 FL (6.5-10.1) L Neutrophils (%) (Auto) % (45.0-75.0) Lymphocytes (%) (Auto) % (20.0-45.0) Monocytes (%) (Auto) % (1.0-10.0) Eosinophils (%) (Auto) % (0.0-3.0) Basophils (%) (Auto) % (0.0-2.0) Differential Total Cells Counted 100 Neutrophils % (Manual) 68 % (45-75) Lymphocytes % (Manual) 5 % (20-45) L Monocytes % (Manual) 6 % (1-10) Eosinophils % (Manual) 3 % (0-3) Basophils % (Manual) 0 % (0-2) Myelocytes % 2 % (0-0) H Band Neutrophils 16 % (0-8) H Platelet Estimate Increased H Platelet Morphology Normal Red Blood Cell Morphology Normal Sodium Level 145 MMOL/L (136-145) Potassium Level 3.3 MMOL/L (3.5-5.1) L Chloride Level 117 MMOL/L (98-107) H Carbon Dioxide Level 17 MMOL/L (21-32) L Anion Gap 11 mmol/L (5-15) Blood Urea Nitrogen 6 mg/dL (7-18) L Creatinine 1.3 MG/DL (0.55-1.30) Estimat Glomerular Filtration Rate 56.3 mL/min (>60) Glucose Level 110 MG/DL (74-106) H Calcium Level 7.1 MG/DL (8.5-10.1) L Phosphorus Level 2.2 MG/DL (2.5-4.9) L Magnesium Level 1.8 MG/DL (1.8-2.4) Total Bilirubin 0.4 MG/DL (0.2-1.0) Aspartate Amino Transf (AST/SGOT) 18 U/L (15-37) Alanine Aminotransferase (ALT/SGPT) 14 U/L (12-78) Alkaline Phosphatase 86 U/L (46-116) Total Protein 5.0 G/DL (6.4-8.2) L Albumin 1.2 G/DL (3.4-5.0) L Globulin 3.8 g/dL Albumin/Globulin Ratio 0.3 (1.0-2.7) L Po Li MD Sep 20, 2018 11:40
--- NOTE | 2018-09-20 11:49 | Nephrology Progress Note ---
Assessment/Plan Problem List: (1) ATN (acute tubular necrosis) (2) Septic shock (3) Lactic acid acidosis (4) Metabolic acidosis (5) Hyperkalemia (6) G tube feedings (7) Acute respiratory failure Assessment over all improved: cr wnl presented with Shock , likely septic Acute renal failure resolved Acute metabolic acidosis resolved Hyperkalemia PEG Recent Pneumonia Plan plan: failing weaning midodrine as needed pulmonary support Fluid challenge as needed Silva K and Phos and Mag supplement as needed antibiotics monitor renal parameters and ABG Subjective ROS Limited/Unobtainable: Yes Objective Objective Last 24 Hour Vital Signs Date Time Temp Pulse Resp B/P (MAP) Pulse Ox O2 Delivery O2 Flow Rate FiO2 09/20/18 11:06 83 12 30 09/20/18 11:00 82 14 102/66 100 Mechanical Ventilator 30 09/20/18 10:00 86 12 104/64 100 Mechanical Ventilator 30 09/20/18 09:08 95 13 30 09/20/18 09:00 96 14 106/64 100 Mechanical Ventilator 30 09/20/18 08:37 99.6 09/20/18 08:00 Mechanical Ventilator Mechanical Ventilator 09/20/18 08:00 30 09/20/18 08:00 92 09/20/18 08:00 100.6 98 16 116/69 100 Mechanical Ventilator 30 09/20/18 07:08 97 13 30 09/20/18 07:00 99 12 114/73 100 Mechanical Ventilator 30 09/20/18 06:00 97 12 110/71 100 Mechanical Ventilator 30 09/20/18 05:30 101 15 30 09/20/18 05:00 97 12 115/74 100 Mechanical Ventilator 30 09/20/18 04:00 99.4 101 12 114/72 100 Mechanical Ventilator 30 09/20/18 04:00 30 09/20/18 04:00 Mechanical Ventilator Mechanical Ventilator Mechanical Ventilator 09/20/18 03:31 104 09/20/18 03:28 100 17 30 09/20/18 03:00 105 23 109/72 100 Mechanical Ventilator 30 09/20/18 02:00 95 14 108/72 100 Mechanical Ventilator 30 09/20/18 01:00 105 16 108/69 100 Mechanical Ventilator 30 09/20/18 00:47 115 19 30 09/20/18 00:00 99.7 99 17 115/71 100 Mechanical Ventilator 30 09/20/18 00:00 Mechanical Ventilator Mechanical Ventilator Mechanical Ventilator 09/20/18 00:00 30 09/19/18 23:30 104 14 30 09/19/18 23:05 99 09/19/18 23:00 100 14 119/75 100 Mechanical Ventilator 30 09/19/18 22:00 101 14 117/75 100 Mechanical Ventilator 30 09/19/18 21:30 91 13 30 09/19/18 21:00 98 13 113/74 100 Mechanical Ventilator 30 09/19/18 20:39 113/76 09/19/18 20:00 30 09/19/18 20:00 98.5 97 14 113/76 100 Mechanical Ventilator 30 09/19/18 20:00 Mechanical Ventilator Mechanical Ventilator Mechanical Ventilator 09/19/18 19:30 96 13 30 09/19/18 19:08 98 09/19/18 19:00 98 22 115/74 100 Mechanical Ventilator 30 09/19/18 18:00 95 22 115/76 100 Mechanical Ventilator 30 09/19/18 17:28 83 12 30 09/19/18 17:00 99.0 101 22 115/76 100 Mechanical Ventilator 30 09/19/18 16:00 100 22 106/68 100 Mechanical Ventilator 30 09/19/18 16:00 105 09/19/18 16:00 Mechanical Ventilator Mechanical Ventilator Mechanical Ventilator 09/19/18 16:00 30 09/19/18 15:03 86 13 30 09/19/18 15:00 85 22 104/64 100 Mechanical Ventilator 30 09/19/18 14:00 96 17 99/68 100 Mechanical Ventilator 30 09/19/18 13:16 85 13 30 09/19/18 13:00 88 21 96/60 100 Mechanical Ventilator 30 09/19/18 12:00 Mechanical Ventilator Mechanical Ventilator Mechanical Ventilator 09/19/18 12:00 30 09/19/18 12:00 87 09/19/18 12:00 98.6 87 20 96/60 100 Mechanical Ventilator 30 Intake and Output 09/19/18 09/20/18 19:00 07:00 Intake Total 832.5 ml 1210 ml Output Total 915 ml 690 ml Balance -82.5 ml 520 ml Intake Free Water 180 ml IV Total 432.5 ml 650 ml Tube Feeding 220 ml 360 ml Other 200 ml Output Urine Total 515 ml 590 ml Stool Total 400 ml 100 ml Laboratory Tests 09/20/18 04:20: White Blood Count 9.1, Red Blood Count 3.27L, Hemoglobin 9.7L, Hematocrit 29.2L , Mean Corpuscular Volume 89, Mean Corpuscular Hemoglobin 29.6, Mean Corpuscular Hemoglobin Concent 33.1, Red Cell Distribution Width 13.4, Platelet Count 510H, Mean Platelet Volume 5.1L, Neutrophils (%) (Auto) , Lymphocytes (%) (Auto) , Monocytes (%) (Auto) , Eosinophils (%) (Auto) , Basophils (%) (Auto) , Differential Total Cells Counted 100, Neutrophils % (Manual) 68, Lymphocytes % ( Manual) 5L, Monocytes % (Manual) 6, Eosinophils % (Manual) 3, Basophils % ( Manual) 0, Myelocytes % 2H, Band Neutrophils 16H, Platelet Estimate IncreasedH, Platelet Morphology Normal, Red Blood Cell Morphology Normal, Sodium Level 145, Potassium Level 3.3L, Chloride Level 117H, Carbon Dioxide Level 17L, Anion Gap 11, Blood Urea Nitrogen 6L, Creatinine 1.3, Estimat Glomerular Filtration Rate 56.3, Glucose Level 110H, Calcium Level 7.1L, Phosphorus Level 2.2L, Magnesium Level 1.8, Total Bilirubin 0.4, Aspartate Amino Transf (AST/SGOT) 18, Alanine Aminotransferase (ALT/SGPT) 14, Alkaline Phosphatase 86, Total Protein 5.0L, Albumin 1.2L, Globulin 3.8, Albumin/Globulin Ratio 0.3L Height (Feet): 5 Height (Inches): 5.00 Weight (Pounds): 120 General Appearance: no apparent distress EENT: other - vent Cardiovascular: normal rate Respiratory/Chest: decreased breath sounds Abdomen: distended Josesito Smalls MD Sep 20, 2018 11:49
--- NOTE | 2018-09-20 14:31 | GI Progress Note ---
Assessment/Plan Problems: (1) G tube feedings ICD Codes: Z93.1 - Gastrostomy status SNOMED: 614444400, 310165213 (2) Protein-calorie malnutrition, severe ICD Codes: E43 - Unspecified severe protein-calorie malnutrition SNOMED: 841345512 (3) Anemia ICD Codes: D64.9 - Anemia, unspecified SNOMED: 913438771 (4) GI bleed ICD Codes: K92.2 - Gastrointestinal hemorrhage, unspecified SNOMED: 26777238 Status: doing well, progressing Status Narrative Discussed with Dr. Horton. Assessment/Plan cdiff negative OB stool negative SUMMARY OF FINDINGS: 1. Distal esophagitis. 2. Malposition of G-tube replaced with a 20-[place] pull type of G-tube successfully. RECOMMENDATIONS: There is no any active bleeding, so we are going to resume tube feeding. prn transfusion ppi erythromycin GT for GI motility GT site care daily/prn. Make sure GT ring is firmly clamped to abdomen. fu labs The patient was seen and examined at bedside and all new and available data was reviewed in the patients chart. I agree with the above findings, impression and plan. (Patient seen earlier today. Signature stamp does not reflect patient encounter time.). - Arthur Horton MD Subjective Subjective limited Objective Last 24 Hour Vital Signs Date Time Temp Pulse Resp B/P (MAP) Pulse Ox O2 Delivery O2 Flow Rate FiO2 09/20/18 13:00 93 12 100/72 100 Mechanical Ventilator 30 09/20/18 12:54 92 14 30 09/20/18 12:00 99.5 84 12 100/62 100 Mechanical Ventilator 30 09/20/18 12:00 30 09/20/18 12:00 81 09/20/18 12:00 Mechanical Ventilator Mechanical Ventilator 09/20/18 11:06 83 12 30 09/20/18 11:00 82 14 102/66 100 Mechanical Ventilator 30 09/20/18 10:00 86 12 104/64 100 Mechanical Ventilator 30 09/20/18 09:08 95 13 30 09/20/18 09:00 96 14 106/64 100 Mechanical Ventilator 30 09/20/18 08:37 99.6 09/20/18 08:00 Mechanical Ventilator Mechanical Ventilator 09/20/18 08:00 30 09/20/18 08:00 92 09/20/18 08:00 100.6 98 16 116/69 100 Mechanical Ventilator 30 09/20/18 07:08 97 13 30 09/20/18 07:00 99 12 114/73 100 Mechanical Ventilator 30 09/20/18 06:00 97 12 110/71 100 Mechanical Ventilator 30 09/20/18 05:30 101 15 30 09/20/18 05:00 97 12 115/74 100 Mechanical Ventilator 30 09/20/18 04:00 99.4 101 12 114/72 100 Mechanical Ventilator 30 09/20/18 04:00 30 09/20/18 04:00 Mechanical Ventilator Mechanical Ventilator Mechanical Ventilator 09/20/18 03:31 104 09/20/18 03:28 100 17 30 09/20/18 03:00 105 23 109/72 100 Mechanical Ventilator 30 09/20/18 02:00 95 14 108/72 100 Mechanical Ventilator 30 09/20/18 01:00 105 16 108/69 100 Mechanical Ventilator 30 09/20/18 00:47 115 19 30 09/20/18 00:00 99.7 99 17 115/71 100 Mechanical Ventilator 30 09/20/18 00:00 Mechanical Ventilator Mechanical Ventilator Mechanical Ventilator 09/20/18 00:00 30 09/19/18 23:30 104 14 30 09/19/18 23:05 99 09/19/18 23:00 100 14 119/75 100 Mechanical Ventilator 30 09/19/18 22:00 101 14 117/75 100 Mechanical Ventilator 30 09/19/18 21:30 91 13 30 09/19/18 21:00 98 13 113/74 100 Mechanical Ventilator 30 09/19/18 20:39 113/76 09/19/18 20:00 30 09/19/18 20:00 98.5 97 14 113/76 100 Mechanical Ventilator 30 09/19/18 20:00 Mechanical Ventilator Mechanical Ventilator Mechanical Ventilator 09/19/18 19:30 96 13 30 09/19/18 19:08 98 09/19/18 19:00 98 22 115/74 100 Mechanical Ventilator 30 09/19/18 18:00 95 22 115/76 100 Mechanical Ventilator 30 09/19/18 17:28 83 12 30 09/19/18 17:00 99.0 101 22 115/76 100 Mechanical Ventilator 30 09/19/18 16:00 100 22 106/68 100 Mechanical Ventilator 30 09/19/18 16:00 105 09/19/18 16:00 Mechanical Ventilator Mechanical Ventilator Mechanical Ventilator 09/19/18 16:00 30 09/19/18 15:03 86 13 30 09/19/18 15:00 85 22 104/64 100 Mechanical Ventilator 30 Intake and Output 09/19/18 09/20/18 19:00 07:00 Intake Total 832.5 ml 1210 ml Output Total 915 ml 690 ml Balance -82.5 ml 520 ml Intake Free Water 180 ml IV Total 432.5 ml 650 ml Tube Feeding 220 ml 360 ml Other 200 ml Output Urine Total 515 ml 590 ml Stool Total 400 ml 100 ml Laboratory Tests Test 09/20/18 04:20 White Blood Count 9.1 K/UL (4.8-10.8) Red Blood Count 3.27 M/UL (4.70-6.10) L Hemoglobin 9.7 G/DL (14.2-18.0) L Hematocrit 29.2 % (42.0-52.0) L Mean Corpuscular Volume 89 FL (80-99) Mean Corpuscular Hemoglobin 29.6 PG (27.0-31.0) Mean Corpuscular Hemoglobin Concent 33.1 G/DL (32.0-36.0) Red Cell Distribution Width 13.4 % (11.6-14.8) Platelet Count 510 K/UL (150-450) H Mean Platelet Volume 5.1 FL (6.5-10.1) L Neutrophils (%) (Auto) % (45.0-75.0) Lymphocytes (%) (Auto) % (20.0-45.0) Monocytes (%) (Auto) % (1.0-10.0) Eosinophils (%) (Auto) % (0.0-3.0) Basophils (%) (Auto) % (0.0-2.0) Differential Total Cells Counted 100 Neutrophils % (Manual) 68 % (45-75) Lymphocytes % (Manual) 5 % (20-45) L Monocytes % (Manual) 6 % (1-10) Eosinophils % (Manual) 3 % (0-3) Basophils % (Manual) 0 % (0-2) Myelocytes % 2 % (0-0) H Band Neutrophils 16 % (0-8) H Platelet Estimate Increased H Platelet Morphology Normal Red Blood Cell Morphology Normal Sodium Level 145 MMOL/L (136-145) Potassium Level 3.3 MMOL/L (3.5-5.1) L Chloride Level 117 MMOL/L (98-107) H Carbon Dioxide Level 17 MMOL/L (21-32) L Anion Gap 11 mmol/L (5-15) Blood Urea Nitrogen 6 mg/dL (7-18) L Creatinine 1.3 MG/DL (0.55-1.30) Estimat Glomerular Filtration Rate 56.3 mL/min (>60) Glucose Level 110 MG/DL (74-106) H Calcium Level 7.1 MG/DL (8.5-10.1) L Phosphorus Level 2.2 MG/DL (2.5-4.9) L Magnesium Level 1.8 MG/DL (1.8-2.4) Total Bilirubin 0.4 MG/DL (0.2-1.0) Aspartate Amino Transf (AST/SGOT) 18 U/L (15-37) Alanine Aminotransferase (ALT/SGPT) 14 U/L (12-78) Alkaline Phosphatase 86 U/L (46-116) Total Protein 5.0 G/DL (6.4-8.2) L Albumin 1.2 G/DL (3.4-5.0) L Globulin 3.8 g/dL Albumin/Globulin Ratio 0.3 (1.0-2.7) L Height (Feet): 5 Height (Inches): 5.00 Weight (Pounds): 120 General Appearance: no apparent distress, alert Cardiovascular: normal rate Respiratory/Chest: normal breath sounds, no respiratory distress Abdominal Exam: normal bowel sounds, non tender, soft, GT site Extremities: non-tender Becki Holt NP Sep 20, 2018 14:30
--- NOTE | 2018-09-20 15:58 | Cardiac Electrophysiology PN ---
Assessment/Plan Assessment/Plan 1. S/P Septic and hemorrhagic shock with Lactic acidosis. On iv fluids and Abx and off pressors. S/P PRBC 2. Sinus tachycardia with heart rate in 140s due to septic shock and dehydration. No fibrillation. EF of 75%. 3. Troponin elevation due to renal failure. EF 75%. 4. Respiratory failure on the vent. Likely will need Tracheostomy 5. Rhabdomyolysis with CPK in thousands. May be contributing to renal failure. 6. Acute renal failure and severe hyperkalemia. Resolved FU by Dr. Smalls 7. Dysphagia, status post PEG placement. 8. GI bleed. S/P EGD by Dr Clifford ANGULO RN Subjective Subjective Off pressors in ICU on the Vent. In SR Objective Last 24 Hour Vital Signs Date Time Temp Pulse Resp B/P (MAP) Pulse Ox O2 Delivery O2 Flow Rate FiO2 09/20/18 15:29 95 14 30 09/20/18 15:00 95 14 120/84 100 Mechanical Ventilator 30 09/20/18 14:00 95 16 110/80 100 Mechanical Ventilator 30 09/20/18 13:00 93 12 100/72 100 Mechanical Ventilator 30 09/20/18 12:54 92 14 30 09/20/18 12:00 99.5 84 12 100/62 100 Mechanical Ventilator 30 09/20/18 12:00 30 09/20/18 12:00 81 09/20/18 12:00 Mechanical Ventilator Mechanical Ventilator 09/20/18 11:06 83 12 30 09/20/18 11:00 82 14 102/66 100 Mechanical Ventilator 30 09/20/18 10:00 86 12 104/64 100 Mechanical Ventilator 30 09/20/18 09:08 95 13 30 09/20/18 09:00 96 14 106/64 100 Mechanical Ventilator 30 09/20/18 08:37 99.6 09/20/18 08:00 Mechanical Ventilator Mechanical Ventilator 09/20/18 08:00 30 09/20/18 08:00 92 09/20/18 08:00 100.6 98 16 116/69 100 Mechanical Ventilator 30 09/20/18 07:08 97 13 30 09/20/18 07:00 99 12 114/73 100 Mechanical Ventilator 30 09/20/18 06:00 97 12 110/71 100 Mechanical Ventilator 30 09/20/18 05:30 101 15 30 09/20/18 05:00 97 12 115/74 100 Mechanical Ventilator 30 09/20/18 04:00 99.4 101 12 114/72 100 Mechanical Ventilator 30 09/20/18 04:00 30 09/20/18 04:00 Mechanical Ventilator Mechanical Ventilator Mechanical Ventilator 09/20/18 03:31 104 09/20/18 03:28 100 17 30 09/20/18 03:00 105 23 109/72 100 Mechanical Ventilator 30 09/20/18 02:00 95 14 108/72 100 Mechanical Ventilator 30 09/20/18 01:00 105 16 108/69 100 Mechanical Ventilator 30 09/20/18 00:47 115 19 30 09/20/18 00:00 99.7 99 17 115/71 100 Mechanical Ventilator 30 09/20/18 00:00 Mechanical Ventilator Mechanical Ventilator Mechanical Ventilator 09/20/18 00:00 30 09/19/18 23:30 104 14 30 09/19/18 23:05 99 09/19/18 23:00 100 14 119/75 100 Mechanical Ventilator 30 09/19/18 22:00 101 14 117/75 100 Mechanical Ventilator 30 09/19/18 21:30 91 13 30 09/19/18 21:00 98 13 113/74 100 Mechanical Ventilator 30 09/19/18 20:39 113/76 09/19/18 20:00 30 09/19/18 20:00 98.5 97 14 113/76 100 Mechanical Ventilator 30 09/19/18 20:00 Mechanical Ventilator Mechanical Ventilator Mechanical Ventilator 09/19/18 19:30 96 13 30 09/19/18 19:08 98 09/19/18 19:00 98 22 115/74 100 Mechanical Ventilator 30 09/19/18 18:00 95 22 115/76 100 Mechanical Ventilator 30 09/19/18 17:28 83 12 30 09/19/18 17:00 99.0 101 22 115/76 100 Mechanical Ventilator 30 09/19/18 16:00 100 22 106/68 100 Mechanical Ventilator 30 09/19/18 16:00 105 09/19/18 16:00 Mechanical Ventilator Mechanical Ventilator Mechanical Ventilator 09/19/18 16:00 30 Intake and Output 09/19/18 09/20/18 19:00 07:00 Intake Total 832.5 ml 1210 ml Output Total 915 ml 690 ml Balance -82.5 ml 520 ml Intake Free Water 180 ml IV Total 432.5 ml 650 ml Tube Feeding 220 ml 360 ml Other 200 ml Output Urine Total 515 ml 590 ml Stool Total 400 ml 100 ml Laboratory Tests Test 09/20/18 04:20 White Blood Count 9.1 K/UL (4.8-10.8) Red Blood Count 3.27 M/UL (4.70-6.10) L Hemoglobin 9.7 G/DL (14.2-18.0) L Hematocrit 29.2 % (42.0-52.0) L Mean Corpuscular Volume 89 FL (80-99) Mean Corpuscular Hemoglobin 29.6 PG (27.0-31.0) Mean Corpuscular Hemoglobin Concent 33.1 G/DL (32.0-36.0) Red Cell Distribution Width 13.4 % (11.6-14.8) Platelet Count 510 K/UL (150-450) H Mean Platelet Volume 5.1 FL (6.5-10.1) L Neutrophils (%) (Auto) % (45.0-75.0) Lymphocytes (%) (Auto) % (20.0-45.0) Monocytes (%) (Auto) % (1.0-10.0) Eosinophils (%) (Auto) % (0.0-3.0) Basophils (%) (Auto) % (0.0-2.0) Differential Total Cells Counted 100 Neutrophils % (Manual) 68 % (45-75) Lymphocytes % (Manual) 5 % (20-45) L Monocytes % (Manual) 6 % (1-10) Eosinophils % (Manual) 3 % (0-3) Basophils % (Manual) 0 % (0-2) Myelocytes % 2 % (0-0) H Band Neutrophils 16 % (0-8) H Platelet Estimate Increased H Platelet Morphology Normal Red Blood Cell Morphology Normal Sodium Level 145 MMOL/L (136-145) Potassium Level 3.3 MMOL/L (3.5-5.1) L Chloride Level 117 MMOL/L (98-107) H Carbon Dioxide Level 17 MMOL/L (21-32) L Anion Gap 11 mmol/L (5-15) Blood Urea Nitrogen 6 mg/dL (7-18) L Creatinine 1.3 MG/DL (0.55-1.30) Estimat Glomerular Filtration Rate 56.3 mL/min (>60) Glucose Level 110 MG/DL (74-106) H Calcium Level 7.1 MG/DL (8.5-10.1) L Phosphorus Level 2.2 MG/DL (2.5-4.9) L Magnesium Level 1.8 MG/DL (1.8-2.4) Total Bilirubin 0.4 MG/DL (0.2-1.0) Aspartate Amino Transf (AST/SGOT) 18 U/L (15-37) Alanine Aminotransferase (ALT/SGPT) 14 U/L (12-78) Alkaline Phosphatase 86 U/L (46-116) Total Protein 5.0 G/DL (6.4-8.2) L Albumin 1.2 G/DL (3.4-5.0) L Globulin 3.8 g/dL Albumin/Globulin Ratio 0.3 (1.0-2.7) L Objective HEENT: Orally intubated. LUNGS: Coarse rhonchi. CARDIOVASCULAR: Tachycardic S1 and S2. ABDOMEN: G-tube EXTREMITIES: No pitting edema. Jasbir Madsen MD Sep 20, 2018 15:58
--- NOTE | 2018-09-20 18:30 | Progress Note ---
DATE: 09/20/2018 SUBJECTIVE: This is a 62-year-old male patient, who is seen and assessed in the ICU. This patient is mostly , he is not responsive verbally to confusion, some disorganized thought process. He has a diagnosis of paranoid schizophrenia. The goal is his cognition has declined below his baseline, worsened by stress of his medical illness. So, his attending has requested and to be seen by Psychiatry to prevent any further decline in his cognition. MENTAL STATUS EXAMINATION: A 62-year-old male. Appearance is disheveled. Attitude, irritable and agitated. Affect flat. Thought process, disorganized. Thought content, auditory hallucinations. No signs of any paranoia. Insight and judgment is poor. DIAGNOSIS: Paranoid schizophrenia. PLAN: Continue treatment with Risperdal and encourage the patient to interact appropriately with staff and other patient's. Chart reviewed and discussed with staff. Seen and assessed in ICU. Virgie Mcdermott M.D. DR: Desiree JOB#: [id number] CC:
--- NOTE | 2018-09-20 18:30 | Progress Note ---
DATE: 09/20/2018 SUBJECTIVE: This is a 62-year-old male patient with septic shock. The patient has septic shock, anemia. He is status post GI bleeding and he continues to have some confusion, some disorganized thought process, and some mood lability. He has got no logical plan for his own self-care, but this patient. Virgie Mcdermott M.D. DR: ESCOBAR JOB#: [id number] CC:
[2018-09-20] MEDS: Dyna-Hex 2% Top Sol 2oz TOPIC SCH (20:45)
[2018-09-20] MEDS: Norepinephrine Bitartrate 8 MG in D5W 500ml 550 ML IV SCH (21:00)
--- NOTE | 2018-09-20 21:30 | General Progress Note ---
Assessment/Plan Problem List: (1) GI bleed ICD Codes: K92.2 - Gastrointestinal hemorrhage, unspecified SNOMED: 10559495 (2) Protein-calorie malnutrition, severe ICD Codes: E43 - Unspecified severe protein-calorie malnutrition SNOMED: 401400411 (3) Septic shock ICD Codes: A41.9 - Sepsis, unspecified organism; R65.21 - Severe sepsis with septic shock SNOMED: 40114319 Status: progressing Assessment/Plan moniter for gi bleed anemia check h/h sepsis no acute events abx per id Subjective ROS Limited/Unobtainable: Yes Allergies: Coded Allergies: No Known Allergies (Unverified , 08/14/18) Objective Last 24 Hour Vital Signs Date Time Temp Pulse Resp B/P (MAP) Pulse Ox O2 Delivery O2 Flow Rate FiO2 09/20/18 20:38 87 12 30 09/20/18 19:29 93 12 30 09/20/18 18:15 99.6 09/20/18 18:00 97 9 120/84 100 Mechanical Ventilator 30 09/20/18 17:06 98 13 30 09/20/18 17:00 101 13 115/76 100 Mechanical Ventilator 30 09/20/18 16:00 93 09/20/18 16:00 Mechanical Ventilator Mechanical Ventilator 09/20/18 16:00 30 09/20/18 16:00 99.8 97 12 126/88 100 Mechanical Ventilator 30 09/20/18 15:29 95 14 30 09/20/18 15:00 95 14 120/84 100 Mechanical Ventilator 30 09/20/18 14:00 95 16 110/80 100 Mechanical Ventilator 30 09/20/18 13:00 93 12 100/72 100 Mechanical Ventilator 30 09/20/18 12:54 92 14 30 09/20/18 12:00 99.5 84 12 100/62 100 Mechanical Ventilator 30 09/20/18 12:00 30 09/20/18 12:00 81 09/20/18 12:00 Mechanical Ventilator Mechanical Ventilator 09/20/18 11:06 83 12 30 09/20/18 11:00 82 14 102/66 100 Mechanical Ventilator 30 09/20/18 10:00 86 12 104/64 100 Mechanical Ventilator 30 09/20/18 09:08 95 13 30 09/20/18 09:00 96 14 106/64 100 Mechanical Ventilator 30 09/20/18 08:00 Mechanical Ventilator Mechanical Ventilator 09/20/18 08:00 30 09/20/18 08:00 92 09/20/18 08:00 100.6 98 16 116/69 100 Mechanical Ventilator 30 09/20/18 07:08 97 13 30 09/20/18 07:00 99 12 114/73 100 Mechanical Ventilator 30 09/20/18 06:00 97 12 110/71 100 Mechanical Ventilator 30 09/20/18 05:30 101 15 30 09/20/18 05:00 97 12 115/74 100 Mechanical Ventilator 30 09/20/18 04:00 99.4 101 12 114/72 100 Mechanical Ventilator 30 09/20/18 04:00 30 09/20/18 04:00 Mechanical Ventilator Mechanical Ventilator Mechanical Ventilator 09/20/18 03:31 104 09/20/18 03:28 100 17 30 09/20/18 03:00 105 23 109/72 100 Mechanical Ventilator 30 09/20/18 02:00 95 14 108/72 100 Mechanical Ventilator 30 09/20/18 01:00 105 16 108/69 100 Mechanical Ventilator 30 09/20/18 00:47 115 19 30 09/20/18 00:00 99.7 99 17 115/71 100 Mechanical Ventilator 30 09/20/18 00:00 Mechanical Ventilator Mechanical Ventilator Mechanical Ventilator 09/20/18 00:00 30 09/19/18 23:30 104 14 30 09/19/18 23:05 99 09/19/18 23:00 100 14 119/75 100 Mechanical Ventilator 30 09/19/18 22:00 101 14 117/75 100 Mechanical Ventilator 30 09/19/18 21:30 91 13 30 Intake and Output 09/19/18 09/20/18 19:00 07:00 Intake Total 832.5 ml 1210 ml Output Total 915 ml 690 ml Balance -82.5 ml 520 ml Intake Free Water 180 ml IV Total 432.5 ml 650 ml Tube Feeding 220 ml 360 ml Other 200 ml Output Urine Total 515 ml 590 ml Stool Total 400 ml 100 ml Laboratory Tests 09/20/18 04:20: White Blood Count 9.1, Red Blood Count 3.27L, Hemoglobin 9.7L, Hematocrit 29.2L , Mean Corpuscular Volume 89, Mean Corpuscular Hemoglobin 29.6, Mean Corpuscular Hemoglobin Concent 33.1, Red Cell Distribution Width 13.4, Platelet Count 510H, Mean Platelet Volume 5.1L, Neutrophils (%) (Auto) , Lymphocytes (%) (Auto) , Monocytes (%) (Auto) , Eosinophils (%) (Auto) , Basophils (%) (Auto) , Differential Total Cells Counted 100, Neutrophils % (Manual) 68, Lymphocytes % ( Manual) 5L, Monocytes % (Manual) 6, Eosinophils % (Manual) 3, Basophils % ( Manual) 0, Myelocytes % 2H, Band Neutrophils 16H, Platelet Estimate IncreasedH, Platelet Morphology Normal, Red Blood Cell Morphology Normal, Sodium Level 145, Potassium Level 3.3L, Chloride Level 117H, Carbon Dioxide Level 17L, Anion Gap 11, Blood Urea Nitrogen 6L, Creatinine 1.3, Estimat Glomerular Filtration Rate 56.3, Glucose Level 110H, Calcium Level 7.1L, Phosphorus Level 2.2L, Magnesium Level 1.8, Total Bilirubin 0.4, Aspartate Amino Transf (AST/SGOT) 18, Alanine Aminotransferase (ALT/SGPT) 14, Alkaline Phosphatase 86, Total Protein 5.0L, Albumin 1.2L, Globulin 3.8, Albumin/Globulin Ratio 0.3L Height (Feet): 5 Height (Inches): 5.00 Weight (Pounds): 120 Cardiovascular: normal rate Respiratory/Chest: lungs clear Abdomen: soft Pinky Bhatia MD Sep 20, 2018 21:30
[2018-09-21] VITALS (24 sets, daily range): BP systolic 83–133; BP diastolic 58–78
[2018-09-21] MEDS: Erythromycin Ethylsuccinate 200mg/5ml Susp GT SCH ×3 (00:29→12:00)
[2018-09-21] MEDS: Acetaminophen 650mg/20.3ml NG PRN (04:52)
[2018-09-21] MEDS: NovoLOG Insulin Flexpen SUBQ SCH ×4 (05:40→19:05)
[2018-09-21 07:34] LABS: HEMATOCRIT 23.4 % (42.0-52.0); HEMOGLOBIN 7.9 G/DL (14.2-18.0); MEAN CORPUSCULAR VOLUME 88 FL (80-99); PLATELET COUNT 515 K/UL (150-450); RED BLOOD COUNT 2.64 M/UL (4.70-6.10); RED CELL DISTRIBUTION WIDTH 14.3 % (11.6-14.8); WHITE BLOOD COUNT 17.1 K/UL (4.8-10.8)
[2018-09-21 07:39] LABS: ALANINE AMINOTRANSFERASE 9 U/L (12-78); ALBUMIN 1.1 G/DL (3.4-5.0); ALBUMIN/GLOBULIN RATIO 0.3 (1.0-2.7); ALKALINE PHOSPHATASE 84 U/L (46-116); ANION GAP 11 mmol/L (5-15); ASPARTATE AMINO TRANSFERASE 17 U/L (15-37); BILIRUBIN,TOTAL 0.3 MG/DL (0.2-1.0); BLOOD UREA NITROGEN 7 mg/dL (7-18); CALCIUM 6.7 MG/DL (8.5-10.1); CARBON DIOXIDE 18 MMOL/L (21-32); CHLORIDE 118 MMOL/L (98-107); CREATININE 1.6 MG/DL (0.55-1.30); POTASSIUM 3.8 MMOL/L (3.5-5.1); SODIUM 147 MMOL/L (136-145)
[2018-09-21] MEDS: Heparin 5000 units/ml inj SUBQ SCH ×2 (09:00→20:37)
[2018-09-21] MEDS: Pantoprazole Inj IVP SCH ×2 (09:29→20:36)
--- NOTE | 2018-09-21 10:41 | Infectious Diseases Prog Note ---
Assessment/Plan Assessment/Plan 62 yo male with PMHx of Quadriplegia with G-tube, HTN, DM and Schizophenia who was sent to the ED fromhis half-way for AMS. Leukocytosis, increased- ?dye to GIB, r/o Cdiff vs KENNETH -09/20 ucx NTD -09/19 CXR: Bilateral pleural effusions and bibasilar atelectasis/airspace disease are stable. Low grade fever Diarrhea- r/o Cdiff GIB Sepsis - Probably PNA , s/p Rx No intubated on vent 45% CXR 09/07/18 - possible left sided consolidation Inf neg 09/07/18 BCx 09/12 sets diphteroids, 08/12 setse S. epi (contaminants); 09/11 Bcx NTD 09/07/18 SCx - NF 09/07/18 UCx - Neg 09/09 Cdiff neg HTN DM Schizophenia Quadriplegia. G- tube dependent Plan -Continue to monitor off systemic abx unless, continues fevers, increasing WBC and HD instability -Start empiric PO Vancomycin pending Cdiff -Bcx x2, u/a, Cdiff - f/u Urine Cx - 09/19/18 SP Zosyn #10 - 09/17/18 SP Vancmocyin #10 - 09/09/18 Ertapenem #3 - Monitor CBC and temps -CBC, CMP, CXR am We will continue to follow the patient during this hospitalization. Subjective Allergies: Coded Allergies: No Known Allergies (Unverified , 08/14/18) Subjective afebrile >24hrs wbc jumped to 17 off pressors hgb dropping some blood noticed around Gtube Objective Vital Signs Last 24 Hour Vital Signs Date Time Temp Pulse Resp B/P (MAP) Pulse Ox O2 Delivery O2 Flow Rate FiO2 09/21/18 09:50 122 15 30 09/21/18 07:20 125 16 30 09/21/18 07:00 126 13 88/60 100 Mechanical Ventilator 30 09/21/18 06:00 99.1 126 13 87/58 100 Mechanical Ventilator 30 09/21/18 05:46 99.1 09/21/18 05:00 136 13 83/65 100 Mechanical Ventilator 30 09/21/18 04:49 112 18 30 09/21/18 04:00 30 09/21/18 04:00 Mechanical Ventilator Mechanical Ventilator 09/21/18 04:00 132 13 84/62 100 Mechanical Ventilator 30 09/21/18 04:00 112 09/21/18 03:10 103 13 30 09/21/18 03:00 108 13 111/70 100 Mechanical Ventilator 30 09/21/18 02:00 96 13 104/69 100 Mechanical Ventilator 30 09/21/18 01:00 99.4 96 13 116/78 100 Mechanical Ventilator 30 09/21/18 00:46 95 13 30 09/21/18 00:00 96 13 116/76 100 Mechanical Ventilator 30 09/21/18 00:00 Mechanical Ventilator Mechanical Ventilator 09/21/18 00:00 98 09/20/18 23:02 90 12 30 09/20/18 23:00 95 12 117/75 100 Mechanical Ventilator 30 09/20/18 22:00 89 10 114/80 100 Mechanical Ventilator 30 09/20/18 21:00 108/69 09/20/18 21:00 85 10 106/68 100 Mechanical Ventilator 30 09/20/18 20:38 87 12 30 09/20/18 20:00 81 09/20/18 20:00 Mechanical Ventilator Mechanical Ventilator 09/20/18 20:00 88 10 108/69 100 Mechanical Ventilator 30 09/20/18 20:00 30 09/20/18 19:29 93 12 30 09/20/18 19:00 92 10 92/61 100 Mechanical Ventilator 30 09/20/18 18:00 97 9 120/84 100 Mechanical Ventilator 30 09/20/18 17:06 98 13 30 09/20/18 17:00 101 13 115/76 100 Mechanical Ventilator 30 09/20/18 16:00 93 09/20/18 16:00 Mechanical Ventilator Mechanical Ventilator 09/20/18 16:00 30 09/20/18 16:00 99.8 97 12 126/88 100 Mechanical Ventilator 30 09/20/18 15:29 95 14 30 09/20/18 15:00 95 14 120/84 100 Mechanical Ventilator 30 09/20/18 14:00 95 16 110/80 100 Mechanical Ventilator 30 09/20/18 13:00 93 12 100/72 100 Mechanical Ventilator 30 09/20/18 12:54 92 14 30 09/20/18 12:00 99.5 84 12 100/62 100 Mechanical Ventilator 30 09/20/18 12:00 30 09/20/18 12:00 81 09/20/18 12:00 Mechanical Ventilator Mechanical Ventilator 09/20/18 11:06 83 12 30 09/20/18 11:00 82 14 102/66 100 Mechanical Ventilator 30 Height (Feet): 5 Height (Inches): 5.00 Weight (Pounds): 120 Objective Gen: NAD, On vent satting well 35% O2 HEENT: NCAT, MMM, EOMI LUNGS: CTAB, No W/C, CARDS: RRR, S1, S2, No M/R/G, ABD: Soft, NT, distended, + BS,G tube (No E/P) NEURO: Intubated, not following Microbiology Date/Time Source Procedure Growth Status 09/20/18 09:40 Indwelling Cath Urine Culture - Preliminary NO GROWTH Resulted Laboratory Tests Test 09/21/18 06:00 White Blood Count 17.1 K/UL (4.8-10.8) #H Red Blood Count 2.64 M/UL (4.70-6.10) L Hemoglobin 7.9 G/DL (14.2-18.0) L Hematocrit 23.4 % (42.0-52.0) L Mean Corpuscular Volume 88 FL (80-99) Mean Corpuscular Hemoglobin 30.0 PG (27.0-31.0) Mean Corpuscular Hemoglobin Concent 33.9 G/DL (32.0-36.0) Red Cell Distribution Width 14.3 % (11.6-14.8) Platelet Count 515 K/UL (150-450) H Mean Platelet Volume 5.2 FL (6.5-10.1) L Neutrophils (%) (Auto) % (45.0-75.0) Lymphocytes (%) (Auto) % (20.0-45.0) Monocytes (%) (Auto) % (1.0-10.0) Eosinophils (%) (Auto) % (0.0-3.0) Basophils (%) (Auto) % (0.0-2.0) Differential Total Cells Counted 100 Neutrophils % (Manual) 93 % (45-75) H Lymphocytes % (Manual) 5 % (20-45) L Monocytes % (Manual) 2 % (1-10) Eosinophils % (Manual) 0 % (0-3) Basophils % (Manual) 0 % (0-2) Band Neutrophils 0 % (0-8) Platelet Estimate Increased H Platelet Morphology Normal Sodium Level 147 MMOL/L (136-145) H Potassium Level 3.8 MMOL/L (3.5-5.1) Chloride Level 118 MMOL/L (98-107) H Carbon Dioxide Level 18 MMOL/L (21-32) L Anion Gap 11 mmol/L (5-15) Blood Urea Nitrogen 7 mg/dL (7-18) Creatinine 1.6 MG/DL (0.55-1.30) H Estimat Glomerular Filtration Rate 44.3 mL/min (>60) Glucose Level 192 MG/DL (74-106) H Calcium Level 6.7 MG/DL (8.5-10.1) L Total Bilirubin 0.3 MG/DL (0.2-1.0) Aspartate Amino Transf (AST/SGOT) 17 U/L (15-37) Alanine Aminotransferase (ALT/SGPT) 9 U/L (12-78) L Alkaline Phosphatase 84 U/L (46-116) Pro-B-Type Natriuretic Peptide 6906 pg/mL (0-125) H Total Protein 4.7 G/DL (6.4-8.2) L Albumin 1.1 G/DL (3.4-5.0) L Globulin 3.6 g/dL Albumin/Globulin Ratio 0.3 (1.0-2.7) L Current Medications Medications (Trade) Dose Ordered Sig/Julito Route PRN Reason Start Time Stop Time Status Last Admin Dose Admin Acetaminophen (Tylenol) 650 mg Q4H PRN NG Mild Pain/Temp > 100.5 09/08/18 13:30 10/08/18 13:29 09/21/18 04:52 Albuterol/ Ipratropium (Albuterol/ Ipratropium) 3 ml Q4H PRN HHN sob 09/16/18 11:30 09/22/18 11:29 Chlorhexidine Gluconate (Camila-Hex 2%) 1 applic DAILY@2000 TOPIC 09/15/18 20:00 10/15/18 19:59 09/20/18 20:45 Dextrose (Dextrose 50%) 25 ml Q30M PRN IV Hypoglycemia 09/08/18 13:30 10/08/18 13:29 Dextrose (Dextrose 50%) 50 ml Q30M PRN IV Hypoglycemia 09/08/18 13:30 10/08/18 13:29 09/17/18 00:30 Dextrose/Sodium Chloride 1,000 ml @ 50 mls/hr Q20H IV 09/13/18 13:45 10/13/18 13:44 09/20/18 22:55 Erythromycin (Jossue-Ped) 200 mg Q6HR GT 09/14/18 18:00 09/21/18 17:59 09/21/18 05:39 Heparin Sodium (Porcine) (Heparin 5000 units/ml) 5,000 units EVERY 12 HOURS SUBQ 09/07/18 21:00 10/07/18 20:59 09/20/18 20:46 Insulin Aspart (NovoLOG) Q6HR SUBQ 09/17/18 18:00 10/08/18 14:29 09/21/18 05:40 Loperamide HCl (Imodium) 4 mg TIDPRN PRN ORAL Diarrhea 09/10/18 13:00 10/10/18 12:59 09/11/18 03:51 Lorazepam (Ativan) 1 mg Q6H PRN ORAL For Anxiety 09/16/18 12:00 09/22/18 11:59 09/20/18 17:46 Midodrine (Pro-Amatine) 2.5 mg THREE TIMES A DAY GT 09/13/18 18:00 10/13/18 17:59 09/21/18 09:29 Norepinephrine Bitartrate 8 mg/ Dextrose 558 ml @ 0 mls/hr Q24H IV 09/08/18 21:00 10/08/18 20:59 09/10/18 18:37 Ondansetron HCl (Zofran) 4 mg Q6H PRN IVP Nausea & Vomiting 09/07/18 15:15 10/07/18 15:14 Pantoprazole (Protonix) 40 mg Q12HR IVP 09/07/18 21:00 10/08/18 08:59 09/21/18 09:29 Polyethylene Glycol (Miralax) 17 gm DAILYPRN PRN ORAL Constipation 09/07/18 15:15 10/07/18 15:14 Risperidone (RisperDAL) 0.25 mg QHS ORAL 09/10/18 21:00 10/10/18 20:59 09/20/18 20:45 Sodium Chloride 500 ml @ 999 mls/hr Q31M PRN IV SBP<90mmHg 09/08/18 11:00 10/08/18 10:59 09/08/18 12:34 Kell Larkin M.D. Sep 21, 2018 10:41
--- NOTE | 2018-09-21 11:26 | GI Progress Note ---
Assessment/Plan Problems: (1) G tube feedings ICD Codes: Z93.1 - Gastrostomy status SNOMED: 868805571, 217611501 (2) Protein-calorie malnutrition, severe ICD Codes: E43 - Unspecified severe protein-calorie malnutrition SNOMED: 281828644 (3) Anemia ICD Codes: D64.9 - Anemia, unspecified SNOMED: 610466487 (4) GI bleed ICD Codes: K92.2 - Gastrointestinal hemorrhage, unspecified SNOMED: 73030456 Status: unchanged Status Narrative Discussed with Dr. Horton. Assessment/Plan cdiff negative OB stool negative excessive bleeding/leakage from GT site, no active bleed after endoscopy >> stat CT ordered SUMMARY OF FINDINGS: 1. Distal esophagitis. 2. Malposition of G-tube replaced with a 20-Pashto pull type of G-tube successfully. RECOMMENDATIONS: TFs held at this time. prn transfusion ppi erythromycin GT for GI motility GT site care daily/prn. Make sure GT ring is firmly clamped to abdomen. fu labs The patient was seen and examined at bedside and all new and available data was reviewed in the patients chart. I agree with the above findings, impression and plan. (Patient seen earlier today. Signature stamp does not reflect patient encounter time.). - Arthur Horton MD Subjective Subjective limited Objective Last 24 Hour Vital Signs Date Time Temp Pulse Resp B/P (MAP) Pulse Ox O2 Delivery O2 Flow Rate FiO2 09/21/18 11:14 119 16 30 09/21/18 11:00 116 23 112/70 100 Mechanical Ventilator 30 09/21/18 10:00 115 24 106/66 100 Mechanical Ventilator 30 09/21/18 09:50 122 15 30 09/21/18 09:00 123 22 90/63 100 Mechanical Ventilator 30 09/21/18 08:00 30 09/21/18 08:00 98.3 123 17 88/64 100 Mechanical Ventilator 30 09/21/18 08:00 120 09/21/18 07:20 125 16 30 09/21/18 07:00 126 13 88/60 100 Mechanical Ventilator 30 09/21/18 06:00 99.1 126 13 87/58 100 Mechanical Ventilator 30 09/21/18 05:46 99.1 09/21/18 05:00 136 13 83/65 100 Mechanical Ventilator 30 09/21/18 04:49 112 18 30 09/21/18 04:00 30 09/21/18 04:00 Mechanical Ventilator Mechanical Ventilator 09/21/18 04:00 132 13 84/62 100 Mechanical Ventilator 30 09/21/18 04:00 112 09/21/18 03:10 103 13 30 09/21/18 03:00 108 13 111/70 100 Mechanical Ventilator 30 09/21/18 02:00 96 13 104/69 100 Mechanical Ventilator 30 09/21/18 01:00 99.4 96 13 116/78 100 Mechanical Ventilator 30 09/21/18 00:46 95 13 30 09/21/18 00:00 96 13 116/76 100 Mechanical Ventilator 30 09/21/18 00:00 Mechanical Ventilator Mechanical Ventilator 09/21/18 00:00 98 09/20/18 23:02 90 12 30 09/20/18 23:00 95 12 117/75 100 Mechanical Ventilator 30 09/20/18 22:00 89 10 114/80 100 Mechanical Ventilator 30 09/20/18 21:00 108/69 09/20/18 21:00 85 10 106/68 100 Mechanical Ventilator 30 09/20/18 20:38 87 12 30 09/20/18 20:00 81 09/20/18 20:00 Mechanical Ventilator Mechanical Ventilator 09/20/18 20:00 88 10 108/69 100 Mechanical Ventilator 30 09/20/18 20:00 30 09/20/18 19:29 93 12 30 09/20/18 19:00 92 10 92/61 100 Mechanical Ventilator 30 09/20/18 18:00 97 9 120/84 100 Mechanical Ventilator 30 09/20/18 17:06 98 13 30 09/20/18 17:00 101 13 115/76 100 Mechanical Ventilator 30 09/20/18 16:00 93 09/20/18 16:00 Mechanical Ventilator Mechanical Ventilator 09/20/18 16:00 30 09/20/18 16:00 99.8 97 12 126/88 100 Mechanical Ventilator 30 09/20/18 15:29 95 14 30 09/20/18 15:00 95 14 120/84 100 Mechanical Ventilator 30 09/20/18 14:00 95 16 110/80 100 Mechanical Ventilator 30 09/20/18 13:00 93 12 100/72 100 Mechanical Ventilator 30 09/20/18 12:54 92 14 30 09/20/18 12:00 99.5 84 12 100/62 100 Mechanical Ventilator 30 09/20/18 12:00 30 09/20/18 12:00 81 09/20/18 12:00 Mechanical Ventilator Mechanical Ventilator Intake and Output 09/20/18 09/21/18 18:59 06:59 Intake Total 1187.5 ml 780 ml Output Total 735 ml 930 ml Balance 452.5 ml -150 ml Intake Free Water 60 ml IV Total 837.5 ml 600 ml Tube Feeding 260 ml 180 ml Other 30 ml Output Urine Total 535 ml 580 ml Stool Total 200 ml 350 ml # Bowel Movements 1 Laboratory Tests Test 09/21/18 06:00 White Blood Count 17.1 K/UL (4.8-10.8) #H Red Blood Count 2.64 M/UL (4.70-6.10) L Hemoglobin 7.9 G/DL (14.2-18.0) L Hematocrit 23.4 % (42.0-52.0) L Mean Corpuscular Volume 88 FL (80-99) Mean Corpuscular Hemoglobin 30.0 PG (27.0-31.0) Mean Corpuscular Hemoglobin Concent 33.9 G/DL (32.0-36.0) Red Cell Distribution Width 14.3 % (11.6-14.8) Platelet Count 515 K/UL (150-450) H Mean Platelet Volume 5.2 FL (6.5-10.1) L Neutrophils (%) (Auto) % (45.0-75.0) Lymphocytes (%) (Auto) % (20.0-45.0) Monocytes (%) (Auto) % (1.0-10.0) Eosinophils (%) (Auto) % (0.0-3.0) Basophils (%) (Auto) % (0.0-2.0) Differential Total Cells Counted 100 Neutrophils % (Manual) 93 % (45-75) H Lymphocytes % (Manual) 5 % (20-45) L Monocytes % (Manual) 2 % (1-10) Eosinophils % (Manual) 0 % (0-3) Basophils % (Manual) 0 % (0-2) Band Neutrophils 0 % (0-8) Platelet Estimate Increased H Platelet Morphology Normal Sodium Level 147 MMOL/L (136-145) H Potassium Level 3.8 MMOL/L (3.5-5.1) Chloride Level 118 MMOL/L (98-107) H Carbon Dioxide Level 18 MMOL/L (21-32) L Anion Gap 11 mmol/L (5-15) Blood Urea Nitrogen 7 mg/dL (7-18) Creatinine 1.6 MG/DL (0.55-1.30) H Estimat Glomerular Filtration Rate 44.3 mL/min (>60) Glucose Level 192 MG/DL (74-106) H Calcium Level 6.7 MG/DL (8.5-10.1) L Phosphorus Level Pending Magnesium Level Pending Total Bilirubin 0.3 MG/DL (0.2-1.0) Aspartate Amino Transf (AST/SGOT) 17 U/L (15-37) Alanine Aminotransferase (ALT/SGPT) 9 U/L (12-78) L Alkaline Phosphatase 84 U/L (46-116) Pro-B-Type Natriuretic Peptide 6906 pg/mL (0-125) H Total Protein 4.7 G/DL (6.4-8.2) L Albumin 1.1 G/DL (3.4-5.0) L Globulin 3.6 g/dL Albumin/Globulin Ratio 0.3 (1.0-2.7) L Height (Feet): 5 Height (Inches): 5.00 Weight (Pounds): 120 General Appearance: no apparent distress Cardiovascular: normal rate Respiratory/Chest: normal breath sounds, no respiratory distress Abdominal Exam: normal bowel sounds, non tender, soft, GT site - bleeding/ leakage Extremities: non-tender Becki Holt NP Sep 21, 2018 11:26
--- NOTE | 2018-09-21 11:50 | Pulmonolgy Critical Care Note ---
Critical Care - Asmt/Plan Problems: (1) Septic shock (2) ATN (acute tubular necrosis) (3) Hyperkalemia (4) Metabolic acidosis Respiratory: monitor respiratory rate, adjust FIO2, CXR Cardiac: continue to monitor HR/BP Renal: F/U I&O Infectious Disease: check cultures Gastrointestinal: continue feedings/current rate Endocrine: monitor blood sugar, check TSH Hematologic: transfuse if hgb<8.5 Neurologic: PRN Ativan, PRN Morphine, keep patient comfortable Prophylaxis: Protonix, Heparin Time Spent (Minutes): 40 Notes Reviewed: cfo controller, cardio, renal Discussed with: nurses, consultants, watch casermanager presentation - Objective Last 24 Hour Vital Signs Date Time Temp Pulse Resp B/P (MAP) Pulse Ox O2 Delivery O2 Flow Rate FiO2 09/21/18 11:14 119 16 30 09/21/18 11:00 116 23 112/70 100 Mechanical Ventilator 30 09/21/18 10:00 115 24 106/66 100 Mechanical Ventilator 30 09/21/18 09:50 122 15 30 09/21/18 09:00 123 22 90/63 100 Mechanical Ventilator 30 09/21/18 08:00 30 09/21/18 08:00 98.3 123 17 88/64 100 Mechanical Ventilator 30 09/21/18 08:00 120 09/21/18 08:00 Mechanical Ventilator Mechanical Ventilator 09/21/18 07:20 125 16 30 09/21/18 07:00 126 13 88/60 100 Mechanical Ventilator 30 09/21/18 06:00 99.1 126 13 87/58 100 Mechanical Ventilator 30 09/21/18 05:46 99.1 09/21/18 05:00 136 13 83/65 100 Mechanical Ventilator 30 09/21/18 04:49 112 18 30 09/21/18 04:00 30 09/21/18 04:00 Mechanical Ventilator Mechanical Ventilator 09/21/18 04:00 132 13 84/62 100 Mechanical Ventilator 30 09/21/18 04:00 112 09/21/18 03:10 103 13 30 09/21/18 03:00 108 13 111/70 100 Mechanical Ventilator 30 09/21/18 02:00 96 13 104/69 100 Mechanical Ventilator 30 09/21/18 01:00 99.4 96 13 116/78 100 Mechanical Ventilator 30 09/21/18 00:46 95 13 30 09/21/18 00:00 96 13 116/76 100 Mechanical Ventilator 30 09/21/18 00:00 Mechanical Ventilator Mechanical Ventilator 09/21/18 00:00 98 09/20/18 23:02 90 12 30 09/20/18 23:00 95 12 117/75 100 Mechanical Ventilator 30 09/20/18 22:00 89 10 114/80 100 Mechanical Ventilator 30 09/20/18 21:00 108/69 09/20/18 21:00 85 10 106/68 100 Mechanical Ventilator 30 09/20/18 20:38 87 12 30 09/20/18 20:00 81 09/20/18 20:00 Mechanical Ventilator Mechanical Ventilator 09/20/18 20:00 88 10 108/69 100 Mechanical Ventilator 30 09/20/18 20:00 30 09/20/18 19:29 93 12 30 09/20/18 19:00 92 10 92/61 100 Mechanical Ventilator 30 09/20/18 18:00 97 9 120/84 100 Mechanical Ventilator 30 09/20/18 17:06 98 13 30 09/20/18 17:00 101 13 115/76 100 Mechanical Ventilator 30 09/20/18 16:00 93 09/20/18 16:00 Mechanical Ventilator Mechanical Ventilator 09/20/18 16:00 30 09/20/18 16:00 99.8 97 12 126/88 100 Mechanical Ventilator 30 09/20/18 15:29 95 14 30 09/20/18 15:00 95 14 120/84 100 Mechanical Ventilator 30 09/20/18 14:00 95 16 110/80 100 Mechanical Ventilator 30 09/20/18 13:00 93 12 100/72 100 Mechanical Ventilator 30 09/20/18 12:54 92 14 30 09/20/18 12:00 99.5 84 12 100/62 100 Mechanical Ventilator 30 09/20/18 12:00 30 09/20/18 12:00 81 09/20/18 12:00 Mechanical Ventilator Mechanical Ventilator Status: awake Condition: critical Neck: full ROM Lungs: chest wall tender Heart: HR/BP stable Abdomen: non-tender, active bowel sounds, feeding tube Decubiti: location Micro: Microbiology Date/Time Source Procedure Growth Status 09/20/18 09:40 Indwelling Cath Urine Culture - Preliminary NO GROWTH Resulted Accucheck: 196 Critical Care - Subjective ROS Limited/Unobtainable: Yes Condition: critical EKG Rhythm: Sinus Rhythm FI02: 30 Vent Support Breath Rate: 12 Vent Support Mode: AC Vent Tidal Volume: 600 Sputum Amount: Scant PEEP: 0.0 PIP: 23 Tube Feeding Amount: 0 I&O: Intake and Output 09/20/18 09/21/18 18:59 06:59 Intake Total 1187.5 ml 780 ml Output Total 735 ml 930 ml Balance 452.5 ml -150 ml Intake Free Water 60 ml IV Total 837.5 ml 600 ml Tube Feeding 260 ml 180 ml Other 30 ml Output Urine Total 535 ml 580 ml Stool Total 200 ml 350 ml # Bowel Movements 1 CXR: effusion, ET in good position ET-Tube: 7.5 ET Position: 23 Labs: Laboratory Tests Test 09/21/18 06:00 White Blood Count 17.1 K/UL (4.8-10.8) #H Red Blood Count 2.64 M/UL (4.70-6.10) L Hemoglobin 7.9 G/DL (14.2-18.0) L Hematocrit 23.4 % (42.0-52.0) L Mean Corpuscular Volume 88 FL (80-99) Mean Corpuscular Hemoglobin 30.0 PG (27.0-31.0) Mean Corpuscular Hemoglobin Concent 33.9 G/DL (32.0-36.0) Red Cell Distribution Width 14.3 % (11.6-14.8) Platelet Count 515 K/UL (150-450) H Mean Platelet Volume 5.2 FL (6.5-10.1) L Neutrophils (%) (Auto) % (45.0-75.0) Lymphocytes (%) (Auto) % (20.0-45.0) Monocytes (%) (Auto) % (1.0-10.0) Eosinophils (%) (Auto) % (0.0-3.0) Basophils (%) (Auto) % (0.0-2.0) Differential Total Cells Counted 100 Neutrophils % (Manual) 93 % (45-75) H Lymphocytes % (Manual) 5 % (20-45) L Monocytes % (Manual) 2 % (1-10) Eosinophils % (Manual) 0 % (0-3) Basophils % (Manual) 0 % (0-2) Band Neutrophils 0 % (0-8) Platelet Estimate Increased H Platelet Morphology Normal Sodium Level 147 MMOL/L (136-145) H Potassium Level 3.8 MMOL/L (3.5-5.1) Chloride Level 118 MMOL/L (98-107) H Carbon Dioxide Level 18 MMOL/L (21-32) L Anion Gap 11 mmol/L (5-15) Blood Urea Nitrogen 7 mg/dL (7-18) Creatinine 1.6 MG/DL (0.55-1.30) H Estimat Glomerular Filtration Rate 44.3 mL/min (>60) Glucose Level 192 MG/DL (74-106) H Calcium Level 6.7 MG/DL (8.5-10.1) L Phosphorus Level 4.0 MG/DL (2.5-4.9) Magnesium Level 1.6 MG/DL (1.8-2.4) L Total Bilirubin 0.3 MG/DL (0.2-1.0) Aspartate Amino Transf (AST/SGOT) 17 U/L (15-37) Alanine Aminotransferase (ALT/SGPT) 9 U/L (12-78) L Alkaline Phosphatase 84 U/L (46-116) Pro-B-Type Natriuretic Peptide 6906 pg/mL (0-125) H Total Protein 4.7 G/DL (6.4-8.2) L Albumin 1.1 G/DL (3.4-5.0) L Globulin 3.6 g/dL Albumin/Globulin Ratio 0.3 (1.0-2.7) L Po Li MD Sep 21, 2018 11:50
[2018-09-21] MEDS ORDERED: Isovue-300 100ml vial INJ PRN (12:00)
[2018-09-21] MEDS ORDERED: Gastrograffin 30ml ORAL SCH (12:15)
--- NOTE | 2018-09-21 12:18 | Diagnostic Imaging Report ---
Indication: Dyspnea Technique: One view of the chest Comparison: 09/19/2018 Findings: Stable satisfactory position of endotracheal tube, left arm PICC. There is a gastrostomy in place. There are bilateral pleural effusions. There is bilateral interstitial and airspace edema. Findings are overall unchanged Impression: Unchanged, over 2 days, findings as above.
--- NOTE | 2018-09-21 12:41 | Nephrology Progress Note ---
Assessment/Plan Problem List: (1) ATN (acute tubular necrosis) (2) Septic shock (3) Lactic acid acidosis (4) Metabolic acidosis (5) Hyperkalemia (6) G tube feedings (7) Acute respiratory failure Assessment over all improved: cr rising again presented with Shock , likely septic Acute renal failure resolved Acute metabolic acidosis resolved Hyperkalemia PEG Recent Pneumonia Plan plan: failing weaning midodrine as needed pulmonary support Fluid challenge as needed Silva K and Phos and Mag supplement as needed antibiotics monitor renal parameters and ABG Subjective ROS Limited/Unobtainable: Yes Objective Objective Last 24 Hour Vital Signs Date Time Temp Pulse Resp B/P (MAP) Pulse Ox O2 Delivery O2 Flow Rate FiO2 09/21/18 12:06 96 09/21/18 12:00 30 09/21/18 12:00 132 09/21/18 12:00 Mechanical Ventilator Mechanical Ventilator 09/21/18 11:14 119 16 30 09/21/18 11:00 116 23 112/70 100 Mechanical Ventilator 30 09/21/18 10:00 115 24 106/66 100 Mechanical Ventilator 30 09/21/18 09:50 122 15 30 09/21/18 09:00 123 22 90/63 100 Mechanical Ventilator 30 09/21/18 08:00 30 09/21/18 08:00 98.3 123 17 88/64 100 Mechanical Ventilator 30 09/21/18 08:00 120 09/21/18 08:00 Mechanical Ventilator Mechanical Ventilator 09/21/18 07:20 125 16 30 09/21/18 07:00 126 13 88/60 100 Mechanical Ventilator 30 09/21/18 06:00 99.1 126 13 87/58 100 Mechanical Ventilator 30 09/21/18 05:46 99.1 09/21/18 05:00 136 13 83/65 100 Mechanical Ventilator 30 09/21/18 04:49 112 18 30 09/21/18 04:00 30 09/21/18 04:00 Mechanical Ventilator Mechanical Ventilator 09/21/18 04:00 132 13 84/62 100 Mechanical Ventilator 30 09/21/18 04:00 112 09/21/18 03:10 103 13 30 09/21/18 03:00 108 13 111/70 100 Mechanical Ventilator 30 09/21/18 02:00 96 13 104/69 100 Mechanical Ventilator 30 09/21/18 01:00 99.4 96 13 116/78 100 Mechanical Ventilator 30 09/21/18 00:46 95 13 30 09/21/18 00:00 96 13 116/76 100 Mechanical Ventilator 30 09/21/18 00:00 Mechanical Ventilator Mechanical Ventilator 09/21/18 00:00 98 09/20/18 23:02 90 12 30 09/20/18 23:00 95 12 117/75 100 Mechanical Ventilator 30 09/20/18 22:00 89 10 114/80 100 Mechanical Ventilator 30 09/20/18 21:00 108/69 09/20/18 21:00 85 10 106/68 100 Mechanical Ventilator 30 09/20/18 20:38 87 12 30 09/20/18 20:00 81 09/20/18 20:00 Mechanical Ventilator Mechanical Ventilator 09/20/18 20:00 88 10 108/69 100 Mechanical Ventilator 30 09/20/18 20:00 30 09/20/18 19:29 93 12 30 09/20/18 19:00 92 10 92/61 100 Mechanical Ventilator 30 09/20/18 18:00 97 9 120/84 100 Mechanical Ventilator 30 09/20/18 17:06 98 13 30 09/20/18 17:00 101 13 115/76 100 Mechanical Ventilator 30 09/20/18 16:00 93 09/20/18 16:00 Mechanical Ventilator Mechanical Ventilator 09/20/18 16:00 30 09/20/18 16:00 99.8 97 12 126/88 100 Mechanical Ventilator 30 09/20/18 15:29 95 14 30 09/20/18 15:00 95 14 120/84 100 Mechanical Ventilator 30 09/20/18 14:00 95 16 110/80 100 Mechanical Ventilator 30 09/20/18 13:00 93 12 100/72 100 Mechanical Ventilator 30 09/20/18 12:54 92 14 30 Intake and Output 09/20/18 09/21/18 18:59 06:59 Intake Total 1187.5 ml 780 ml Output Total 735 ml 930 ml Balance 452.5 ml -150 ml Intake Free Water 60 ml IV Total 837.5 ml 600 ml Tube Feeding 260 ml 180 ml Other 30 ml Output Urine Total 535 ml 580 ml Stool Total 200 ml 350 ml # Bowel Movements 1 Laboratory Tests 09/21/18 06:00: White Blood Count 17.1#H, Red Blood Count 2.64L, Hemoglobin 7.9L, Hematocrit 23.4L, Mean Corpuscular Volume 88, Mean Corpuscular Hemoglobin 30.0, Mean Corpuscular Hemoglobin Concent 33.9, Red Cell Distribution Width 14.3, Platelet Count 515H, Mean Platelet Volume 5.2L, Neutrophils (%) (Auto) , Lymphocytes (%) (Auto) , Monocytes (%) (Auto) , Eosinophils (%) (Auto) , Basophils (%) (Auto) , Differential Total Cells Counted 100, Neutrophils % (Manual) 93H, Lymphocytes % (Manual) 5L, Monocytes % (Manual) 2, Eosinophils % (Manual) 0, Basophils % ( Manual) 0, Band Neutrophils 0, Platelet Estimate IncreasedH, Platelet Morphology Normal, Sodium Level 147H, Potassium Level 3.8, Chloride Level 118H, Carbon Dioxide Level 18L, Anion Gap 11, Blood Urea Nitrogen 7, Creatinine 1.6H, Estimat Glomerular Filtration Rate 44.3, Glucose Level 192H, Calcium Level 6.7L , Phosphorus Level 4.0, Magnesium Level 1.6L, Total Bilirubin 0.3, Aspartate Amino Transf (AST/SGOT) 17, Alanine Aminotransferase (ALT/SGPT) 9L, Alkaline Phosphatase 84, Pro-B-Type Natriuretic Peptide 6906H, Total Protein 4.7L, Albumin 1.1L, Globulin 3.6, Albumin/Globulin Ratio 0.3L Height (Feet): 5 Height (Inches): 5.00 Weight (Pounds): 120 General Appearance: no apparent distress EENT: other - vented Cardiovascular: tachycardia Respiratory/Chest: decreased breath sounds Abdomen: distended Josesito Smalls MD Sep 21, 2018 12:41
--- NOTE | 2018-09-21 12:50 | Surgery Progress Note ---
Surgery Progress Note Subjective Additional Comments still in ICU. unable to wean vent. bleeding around g tube. Objective Last 24 Hour Vital Signs Date Time Temp Pulse Resp B/P (MAP) Pulse Ox O2 Delivery O2 Flow Rate FiO2 09/21/18 12:06 96 09/21/18 12:00 30 09/21/18 12:00 132 09/21/18 12:00 Mechanical Ventilator Mechanical Ventilator 09/21/18 11:14 119 16 30 09/21/18 11:00 116 23 112/70 100 Mechanical Ventilator 30 09/21/18 10:00 115 24 106/66 100 Mechanical Ventilator 30 09/21/18 09:50 122 15 30 09/21/18 09:00 123 22 90/63 100 Mechanical Ventilator 30 09/21/18 08:00 30 09/21/18 08:00 98.3 123 17 88/64 100 Mechanical Ventilator 30 09/21/18 08:00 120 09/21/18 08:00 Mechanical Ventilator Mechanical Ventilator 09/21/18 07:20 125 16 30 09/21/18 07:00 126 13 88/60 100 Mechanical Ventilator 30 09/21/18 06:00 99.1 126 13 87/58 100 Mechanical Ventilator 30 09/21/18 05:46 99.1 09/21/18 05:00 136 13 83/65 100 Mechanical Ventilator 30 09/21/18 04:49 112 18 30 09/21/18 04:00 30 09/21/18 04:00 Mechanical Ventilator Mechanical Ventilator 09/21/18 04:00 132 13 84/62 100 Mechanical Ventilator 30 09/21/18 04:00 112 09/21/18 03:10 103 13 30 09/21/18 03:00 108 13 111/70 100 Mechanical Ventilator 30 09/21/18 02:00 96 13 104/69 100 Mechanical Ventilator 30 09/21/18 01:00 99.4 96 13 116/78 100 Mechanical Ventilator 30 09/21/18 00:46 95 13 30 09/21/18 00:00 96 13 116/76 100 Mechanical Ventilator 30 09/21/18 00:00 Mechanical Ventilator Mechanical Ventilator 09/21/18 00:00 98 09/20/18 23:02 90 12 30 09/20/18 23:00 95 12 117/75 100 Mechanical Ventilator 30 09/20/18 22:00 89 10 114/80 100 Mechanical Ventilator 30 09/20/18 21:00 108/69 09/20/18 21:00 85 10 106/68 100 Mechanical Ventilator 30 09/20/18 20:38 87 12 30 09/20/18 20:00 81 09/20/18 20:00 Mechanical Ventilator Mechanical Ventilator 09/20/18 20:00 88 10 108/69 100 Mechanical Ventilator 30 09/20/18 20:00 30 09/20/18 19:29 93 12 30 09/20/18 19:00 92 10 92/61 100 Mechanical Ventilator 30 09/20/18 18:00 97 9 120/84 100 Mechanical Ventilator 30 09/20/18 17:06 98 13 30 09/20/18 17:00 101 13 115/76 100 Mechanical Ventilator 30 09/20/18 16:00 93 09/20/18 16:00 Mechanical Ventilator Mechanical Ventilator 09/20/18 16:00 30 09/20/18 16:00 99.8 97 12 126/88 100 Mechanical Ventilator 30 09/20/18 15:29 95 14 30 09/20/18 15:00 95 14 120/84 100 Mechanical Ventilator 30 09/20/18 14:00 95 16 110/80 100 Mechanical Ventilator 30 09/20/18 13:00 93 12 100/72 100 Mechanical Ventilator 30 09/20/18 12:54 92 14 30 I&O Intake and Output 09/20/18 09/21/18 18:59 06:59 Intake Total 1187.5 ml 780 ml Output Total 735 ml 930 ml Balance 452.5 ml -150 ml Intake Free Water 60 ml IV Total 837.5 ml 600 ml Tube Feeding 260 ml 180 ml Other 30 ml Output Urine Total 535 ml 580 ml Stool Total 200 ml 350 ml # Bowel Movements 1 Dressing: other Drains: other Cardiovascular: RSR Respiratory: decreased breath sounds Abdomen: soft, tenderness, other, non-distended Extremities: other Laboratory Tests Test 09/21/18 06:00 White Blood Count 17.1 K/UL (4.8-10.8) #H Red Blood Count 2.64 M/UL (4.70-6.10) L Hemoglobin 7.9 G/DL (14.2-18.0) L Hematocrit 23.4 % (42.0-52.0) L Mean Corpuscular Volume 88 FL (80-99) Mean Corpuscular Hemoglobin 30.0 PG (27.0-31.0) Mean Corpuscular Hemoglobin Concent 33.9 G/DL (32.0-36.0) Red Cell Distribution Width 14.3 % (11.6-14.8) Platelet Count 515 K/UL (150-450) H Mean Platelet Volume 5.2 FL (6.5-10.1) L Neutrophils (%) (Auto) % (45.0-75.0) Lymphocytes (%) (Auto) % (20.0-45.0) Monocytes (%) (Auto) % (1.0-10.0) Eosinophils (%) (Auto) % (0.0-3.0) Basophils (%) (Auto) % (0.0-2.0) Differential Total Cells Counted 100 Neutrophils % (Manual) 93 % (45-75) H Lymphocytes % (Manual) 5 % (20-45) L Monocytes % (Manual) 2 % (1-10) Eosinophils % (Manual) 0 % (0-3) Basophils % (Manual) 0 % (0-2) Band Neutrophils 0 % (0-8) Platelet Estimate Increased H Platelet Morphology Normal Sodium Level 147 MMOL/L (136-145) H Potassium Level 3.8 MMOL/L (3.5-5.1) Chloride Level 118 MMOL/L (98-107) H Carbon Dioxide Level 18 MMOL/L (21-32) L Anion Gap 11 mmol/L (5-15) Blood Urea Nitrogen 7 mg/dL (7-18) Creatinine 1.6 MG/DL (0.55-1.30) H Estimat Glomerular Filtration Rate 44.3 mL/min (>60) Glucose Level 192 MG/DL (74-106) H Calcium Level 6.7 MG/DL (8.5-10.1) L Phosphorus Level 4.0 MG/DL (2.5-4.9) Magnesium Level 1.6 MG/DL (1.8-2.4) L Total Bilirubin 0.3 MG/DL (0.2-1.0) Aspartate Amino Transf (AST/SGOT) 17 U/L (15-37) Alanine Aminotransferase (ALT/SGPT) 9 U/L (12-78) L Alkaline Phosphatase 84 U/L (46-116) Pro-B-Type Natriuretic Peptide 6906 pg/mL (0-125) H Total Protein 4.7 G/DL (6.4-8.2) L Albumin 1.1 G/DL (3.4-5.0) L Globulin 3.6 g/dL Albumin/Globulin Ratio 0.3 (1.0-2.7) L Plan Problems: (1) Decubitus skin ulcer Assessment & Plan: Pt presents with multiple skin issues. Intact serous blister noted to lateral R abd (L)2.6cm x (W)2.2cm. Intact serous blister lateral R abd (L)0.7cm x (W)1.4cm. 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 Erythema with induration along borders. Buttocks without evidence of skin breakdown. Both heels are dry and easily blanchable. Tx.Plan: Cleanse wound R Hip with Saline.Recommend Silvasorb gel .Apply Cavilon Skin Barrier periwound.Cover with Optifoam drsg every 3 Days and prn. Apply Cavilon Skin Barrier to Blisters (2) R abd. Cover with Optifoam drsg.Change every 7 days and PRN. Apply Moisture barrier to sacrum .Cover with Optifoam .Change every 7 days and prn. Air Fluidized mattress. Apply Cavilon to both heels .Off-load heels with pillow. (2) Septic shock Assessment & Plan: cont current care wean vent plan for trach this week if cannot wean vent CT scan for g tube location (3) Protein-calorie malnutrition, severe Assessment & Plan: will need nutritional optimization to recover and heal wounds nutrition consult Isreal Lynne Sep 21, 2018 12:50
[2018-09-21] MEDS: Vancomycin oral 125mg/2.5ml ORAL SCH ×2 (13:00→18:00)
--- NOTE | 2018-09-21 13:31 | General Progress Note ---
Assessment/Plan Problem List: (1) UTI (urinary tract infection) ICD Codes: N39.0 - Urinary tract infection, site not specified SNOMED: 81414146 (2) Renal failure ICD Codes: N19 - Unspecified kidney failure SNOMED: 83256491 (3) Anemia ICD Codes: D64.9 - Anemia, unspecified SNOMED: 717812320 (4) Acute respiratory failure ICD Codes: J96.00 - Acute respiratory failure, unspecified whether with hypoxia or hypercapnia SNOMED: 65967599 (5) Pneumonia ICD Codes: J18.9 - Pneumonia, unspecified organism SNOMED: 732984332 (6) Septic shock ICD Codes: A41.9 - Sepsis, unspecified organism; R65.21 - Severe sepsis with septic shock SNOMED: 23748940 (7) ATN (acute tubular necrosis) ICD Codes: N17.0 - Acute kidney failure with tubular necrosis SNOMED: 73031268 Status: unchanged Assessment/Plan vent abx wound care neph f/u gi eval cbc bmp am pending trach ltach transfer Subjective Constitutional: Reports: weakness Allergies: Coded Allergies: No Known Allergies (Unverified , 08/14/18) All Systems: reviewed and negative except above Subjective intubated sedated in icu Objective Last 24 Hour Vital Signs Date Time Temp Pulse Resp B/P (MAP) Pulse Ox O2 Delivery O2 Flow Rate FiO2 09/21/18 12:06 96 09/21/18 12:00 30 09/21/18 12:00 132 09/21/18 12:00 Mechanical Ventilator Mechanical Ventilator 09/21/18 11:14 119 16 30 09/21/18 11:00 116 23 112/70 100 Mechanical Ventilator 30 09/21/18 10:00 115 24 106/66 100 Mechanical Ventilator 30 09/21/18 09:50 122 15 30 09/21/18 09:00 123 22 90/63 100 Mechanical Ventilator 30 09/21/18 08:00 30 09/21/18 08:00 98.3 123 17 88/64 100 Mechanical Ventilator 30 09/21/18 08:00 120 09/21/18 08:00 Mechanical Ventilator Mechanical Ventilator 09/21/18 07:20 125 16 30 09/21/18 07:00 126 13 88/60 100 Mechanical Ventilator 30 09/21/18 06:00 99.1 126 13 87/58 100 Mechanical Ventilator 30 09/21/18 05:46 99.1 09/21/18 05:00 136 13 83/65 100 Mechanical Ventilator 30 09/21/18 04:49 112 18 30 09/21/18 04:00 30 09/21/18 04:00 Mechanical Ventilator Mechanical Ventilator 09/21/18 04:00 132 13 84/62 100 Mechanical Ventilator 30 09/21/18 04:00 112 09/21/18 03:10 103 13 30 09/21/18 03:00 108 13 111/70 100 Mechanical Ventilator 30 09/21/18 02:00 96 13 104/69 100 Mechanical Ventilator 30 09/21/18 01:00 99.4 96 13 116/78 100 Mechanical Ventilator 30 09/21/18 00:46 95 13 30 09/21/18 00:00 96 13 116/76 100 Mechanical Ventilator 30 09/21/18 00:00 Mechanical Ventilator Mechanical Ventilator 09/21/18 00:00 98 09/20/18 23:02 90 12 30 09/20/18 23:00 95 12 117/75 100 Mechanical Ventilator 30 09/20/18 22:00 89 10 114/80 100 Mechanical Ventilator 30 09/20/18 21:00 108/69 09/20/18 21:00 85 10 106/68 100 Mechanical Ventilator 30 09/20/18 20:38 87 12 30 09/20/18 20:00 81 09/20/18 20:00 Mechanical Ventilator Mechanical Ventilator 09/20/18 20:00 88 10 108/69 100 Mechanical Ventilator 30 09/20/18 20:00 30 09/20/18 19:29 93 12 30 09/20/18 19:00 92 10 92/61 100 Mechanical Ventilator 30 09/20/18 18:00 97 9 120/84 100 Mechanical Ventilator 30 09/20/18 17:06 98 13 30 09/20/18 17:00 101 13 115/76 100 Mechanical Ventilator 30 09/20/18 16:00 93 09/20/18 16:00 Mechanical Ventilator Mechanical Ventilator 09/20/18 16:00 30 09/20/18 16:00 99.8 97 12 126/88 100 Mechanical Ventilator 30 09/20/18 15:29 95 14 30 09/20/18 15:00 95 14 120/84 100 Mechanical Ventilator 30 09/20/18 14:00 95 16 110/80 100 Mechanical Ventilator 30 Intake and Output 09/20/18 09/21/18 18:59 06:59 Intake Total 1187.5 ml 780 ml Output Total 735 ml 930 ml Balance 452.5 ml -150 ml Intake Free Water 60 ml IV Total 837.5 ml 600 ml Tube Feeding 260 ml 180 ml Other 30 ml Output Urine Total 535 ml 580 ml Stool Total 200 ml 350 ml # Bowel Movements 1 Laboratory Tests 09/21/18 06:00: White Blood Count 17.1#H, Red Blood Count 2.64L, Hemoglobin 7.9L, Hematocrit 23.4L, Mean Corpuscular Volume 88, Mean Corpuscular Hemoglobin 30.0, Mean Corpuscular Hemoglobin Concent 33.9, Red Cell Distribution Width 14.3, Platelet Count 515H, Mean Platelet Volume 5.2L, Neutrophils (%) (Auto) , Lymphocytes (%) (Auto) , Monocytes (%) (Auto) , Eosinophils (%) (Auto) , Basophils (%) (Auto) , Differential Total Cells Counted 100, Neutrophils % (Manual) 93H, Lymphocytes % (Manual) 5L, Monocytes % (Manual) 2, Eosinophils % (Manual) 0, Basophils % ( Manual) 0, Band Neutrophils 0, Platelet Estimate IncreasedH, Platelet Morphology Normal, Sodium Level 147H, Potassium Level 3.8, Chloride Level 118H, Carbon Dioxide Level 18L, Anion Gap 11, Blood Urea Nitrogen 7, Creatinine 1.6H, Estimat Glomerular Filtration Rate 44.3, Glucose Level 192H, Calcium Level 6.7L , Phosphorus Level 4.0, Magnesium Level 1.6L, Total Bilirubin 0.3, Aspartate Amino Transf (AST/SGOT) 17, Alanine Aminotransferase (ALT/SGPT) 9L, Alkaline Phosphatase 84, Pro-B-Type Natriuretic Peptide 6906H, Total Protein 4.7L, Albumin 1.1L, Globulin 3.6, Albumin/Globulin Ratio 0.3L Height (Feet): 5 Height (Inches): 5.00 Weight (Pounds): 120 General Appearance: lethargic EENT: normal ENT inspection Neck: normal alignment Cardiovascular: normal peripheral pulses, normal rate, regular rhythm Respiratory/Chest: chest wall non-tender, lungs clear, normal breath sounds Abdomen: normal bowel sounds, non tender, soft Extremities: normal inspection Edema: no edema noted Arm (L), no edema noted Arm (R), no edema noted Leg (L), no edema noted Leg (R), no edema noted Pedal (L), no edema noted Pedal (R), no edema noted Generalized Neurologic: motor weakness Skin: normal pigmentation, warm/dry Jasmeet Reynoso DO Sep 21, 2018 13:31
--- NOTE | 2018-09-21 14:25 | Cardiac Electrophysiology PN ---
Assessment/Plan Assessment/Plan 1. S/P Septic and hemorrhagic shock with Lactic acidosis. On iv fluids and Abx and off pressors. S/P PRBC 2. Sinus tachycardia with heart rate in 140s due to sepsis, anemia and dehydration. No fibrillation. EF of 75%. 3. Troponin elevation due to renal failure. EF 75%. 4. Respiratory failure on the vent. Likely will need Tracheostomy 5. Rhabdomyolysis with CPK in thousands. May be contributing to renal failure. 6. Acute renal failure and severe hyperkalemia. Resolved FU by Dr. Smalls 7. Dysphagia, status post PEG placement. 8. GI bleed. S/P EGD by Dr Clifford ANGULO RN Subjective Subjective Off pressors in ICU on the Vent. In Sius tach likely due to gi bleed and anemia Objective Last 24 Hour Vital Signs Date Time Temp Pulse Resp B/P (MAP) Pulse Ox O2 Delivery O2 Flow Rate FiO2 09/21/18 14:00 135 15 105/65 100 Mechanical Ventilator 30 09/21/18 13:30 131 13 30 09/21/18 13:00 128 13 121/59 100 Mechanical Ventilator 30 09/21/18 12:06 96 09/21/18 12:00 30 09/21/18 12:00 132 09/21/18 12:00 100.2 138 25 104/66 100 Mechanical Ventilator 30 09/21/18 12:00 Mechanical Ventilator Mechanical Ventilator 09/21/18 11:14 119 16 30 09/21/18 11:00 116 23 112/70 100 Mechanical Ventilator 30 09/21/18 10:00 115 24 106/66 100 Mechanical Ventilator 30 09/21/18 09:50 122 15 30 09/21/18 09:00 123 22 90/63 100 Mechanical Ventilator 30 09/21/18 08:00 30 09/21/18 08:00 98.3 123 17 88/64 100 Mechanical Ventilator 30 09/21/18 08:00 120 09/21/18 08:00 Mechanical Ventilator Mechanical Ventilator 09/21/18 07:20 125 16 30 09/21/18 07:00 126 13 88/60 100 Mechanical Ventilator 30 09/21/18 06:00 99.1 126 13 87/58 100 Mechanical Ventilator 30 09/21/18 05:46 99.1 09/21/18 05:00 136 13 83/65 100 Mechanical Ventilator 30 09/21/18 04:49 112 18 30 09/21/18 04:00 30 09/21/18 04:00 Mechanical Ventilator Mechanical Ventilator 09/21/18 04:00 132 13 84/62 100 Mechanical Ventilator 30 09/21/18 04:00 112 09/21/18 03:10 103 13 30 09/21/18 03:00 108 13 111/70 100 Mechanical Ventilator 30 09/21/18 02:00 96 13 104/69 100 Mechanical Ventilator 30 09/21/18 01:00 99.4 96 13 116/78 100 Mechanical Ventilator 30 09/21/18 00:46 95 13 30 09/21/18 00:00 96 13 116/76 100 Mechanical Ventilator 30 09/21/18 00:00 Mechanical Ventilator Mechanical Ventilator 09/21/18 00:00 98 09/20/18 23:02 90 12 30 09/20/18 23:00 95 12 117/75 100 Mechanical Ventilator 30 09/20/18 22:00 89 10 114/80 100 Mechanical Ventilator 30 09/20/18 21:00 108/69 09/20/18 21:00 85 10 106/68 100 Mechanical Ventilator 30 09/20/18 20:38 87 12 30 09/20/18 20:00 81 09/20/18 20:00 Mechanical Ventilator Mechanical Ventilator 09/20/18 20:00 88 10 108/69 100 Mechanical Ventilator 30 09/20/18 20:00 30 09/20/18 19:29 93 12 30 09/20/18 19:00 92 10 92/61 100 Mechanical Ventilator 30 09/20/18 18:00 97 9 120/84 100 Mechanical Ventilator 30 09/20/18 17:06 98 13 30 09/20/18 17:00 101 13 115/76 100 Mechanical Ventilator 30 09/20/18 16:00 93 09/20/18 16:00 Mechanical Ventilator Mechanical Ventilator 09/20/18 16:00 30 09/20/18 16:00 99.8 97 12 126/88 100 Mechanical Ventilator 30 09/20/18 15:29 95 14 30 09/20/18 15:00 95 14 120/84 100 Mechanical Ventilator 30 Intake and Output 09/20/18 09/21/18 18:59 06:59 Intake Total 1187.5 ml 780 ml Output Total 735 ml 930 ml Balance 452.5 ml -150 ml Intake Free Water 60 ml IV Total 837.5 ml 600 ml Tube Feeding 260 ml 180 ml Other 30 ml Output Urine Total 535 ml 580 ml Stool Total 200 ml 350 ml # Bowel Movements 1 Laboratory Tests Test 09/21/18 06:00 White Blood Count 17.1 K/UL (4.8-10.8) #H Red Blood Count 2.64 M/UL (4.70-6.10) L Hemoglobin 7.9 G/DL (14.2-18.0) L Hematocrit 23.4 % (42.0-52.0) L Mean Corpuscular Volume 88 FL (80-99) Mean Corpuscular Hemoglobin 30.0 PG (27.0-31.0) Mean Corpuscular Hemoglobin Concent 33.9 G/DL (32.0-36.0) Red Cell Distribution Width 14.3 % (11.6-14.8) Platelet Count 515 K/UL (150-450) H Mean Platelet Volume 5.2 FL (6.5-10.1) L Neutrophils (%) (Auto) % (45.0-75.0) Lymphocytes (%) (Auto) % (20.0-45.0) Monocytes (%) (Auto) % (1.0-10.0) Eosinophils (%) (Auto) % (0.0-3.0) Basophils (%) (Auto) % (0.0-2.0) Differential Total Cells Counted 100 Neutrophils % (Manual) 93 % (45-75) H Lymphocytes % (Manual) 5 % (20-45) L Monocytes % (Manual) 2 % (1-10) Eosinophils % (Manual) 0 % (0-3) Basophils % (Manual) 0 % (0-2) Band Neutrophils 0 % (0-8) Platelet Estimate Increased H Platelet Morphology Normal Sodium Level 147 MMOL/L (136-145) H Potassium Level 3.8 MMOL/L (3.5-5.1) Chloride Level 118 MMOL/L (98-107) H Carbon Dioxide Level 18 MMOL/L (21-32) L Anion Gap 11 mmol/L (5-15) Blood Urea Nitrogen 7 mg/dL (7-18) Creatinine 1.6 MG/DL (0.55-1.30) H Estimat Glomerular Filtration Rate 44.3 mL/min (>60) Glucose Level 192 MG/DL (74-106) H Calcium Level 6.7 MG/DL (8.5-10.1) L Phosphorus Level 4.0 MG/DL (2.5-4.9) Magnesium Level 1.6 MG/DL (1.8-2.4) L Total Bilirubin 0.3 MG/DL (0.2-1.0) Aspartate Amino Transf (AST/SGOT) 17 U/L (15-37) Alanine Aminotransferase (ALT/SGPT) 9 U/L (12-78) L Alkaline Phosphatase 84 U/L (46-116) Pro-B-Type Natriuretic Peptide 6906 pg/mL (0-125) H Total Protein 4.7 G/DL (6.4-8.2) L Albumin 1.1 G/DL (3.4-5.0) L Globulin 3.6 g/dL Albumin/Globulin Ratio 0.3 (1.0-2.7) L Microbiology Date/Time Source Procedure Growth Status 09/20/18 09:40 Indwelling Cath Urine Culture - Preliminary NO GROWTH Resulted Objective HEENT: Orally intubated. LUNGS: Coarse rhonchi. CARDIOVASCULAR: Tachycardic S1 and S2. ABDOMEN: G-tube leaking EXTREMITIES: No pitting edema. Jasbir Madsen MD Sep 21, 2018 14:25
[2018-09-21 15:36] LABS: HEMATOCRIT 22.5 % (42.0-52.0); HEMOGLOBIN 7.3 G/DL (14.2-18.0); MEAN CORPUSCULAR VOLUME 91 FL (80-99); PLATELET COUNT 503 K/UL (150-450); RED BLOOD COUNT 2.47 M/UL (4.70-6.10); RED CELL DISTRIBUTION WIDTH 13.6 % (11.6-14.8); WHITE BLOOD COUNT 14.4 K/UL (4.8-10.8)
[2018-09-21 15:41] LABS: ANION GAP 11 mmol/L (5-15); BLOOD UREA NITROGEN 9 mg/dL (7-18); CALCIUM 6.8 MG/DL (8.5-10.1); CARBON DIOXIDE 19 MMOL/L (21-32); CHLORIDE 118 MMOL/L (98-107); CREATININE 1.6 MG/DL (0.55-1.30); POTASSIUM 3.7 MMOL/L (3.5-5.1); SODIUM 148 MMOL/L (136-145)
[2018-09-21 15:42] LABS: INR 1.2 (0.9-1.1)
[2018-09-21 15:45] LABS: ALANINE AMINOTRANSFERASE 15 U/L (12-78); ALBUMIN 1.1 G/DL (3.4-5.0); ALBUMIN/GLOBULIN RATIO 0.3 (1.0-2.7); ALKALINE PHOSPHATASE 83 U/L (46-116); ASPARTATE AMINO TRANSFERASE 29 U/L (15-37); BILIRUBIN,TOTAL 0.3 MG/DL (0.2-1.0)
[2018-09-21] MEDS ORDERED: D5NS 1000ml IV ONE (15:57)
[2018-09-21] MEDS ORDERED: NS 275ml ONE (15:57)
[2018-09-21] MEDS ORDERED: Tubing IV Secondary IV ONE (15:57)
--- NOTE | 2018-09-21 18:00 | Progress Note ---
DATE: 09/21/2018 SUBJECTIVE: This is a 62-year-old male patient with septic shock. This patient continued to have some confusion, disorganized thought process, and mood lability, worsened by stress of his medical illness. . That is why, he does require inpatient treatment at this time. The patient is currently in the ICU. He has septic shock, anemia, and GI bleed. He has altered mental status. DIAGNOSIS: Paranoid schizophrenia with acute exacerbation. PLAN: Continue treatment with Risperdal to help reduce agitation, but he has altered mental status and unable to communicate verbally at that time . Because he has had decline in cognition, his attending has requested daily psychiatric consultation to prevent any further decline in his cognition. Chart reviewed. Discussed with staff. Seen and assessed at bedside. Virgie Mcdermott M.D. DR: JAYSON JOB#: [id number] CC:
[2018-09-21 19:40] LABS: APPEARANCE,URINE SLIGHTLY CLOUDY; BILIRUBIN, URINE NEGATIVE (NEGATIVE); GLUCOSE, URINE (UA) NEGATIVE (NEGATIVE); KETONES,URINE NEGATIVE (NEGATIVE); LEUKOCYTE ESTERASE ,URINE 1+ (NEGATIVE); NITRITE,URINE NEGATIVE (NEGATIVE); PH,URINE 5 (4.5-8.0); PROTEIN,URINE 2+ (NEGATIVE); UROBILINOGEN,URINE NORMAL MG/DL (0.0-1.0)
[2018-09-21 19:44] LABS: COLOR,URINE PALE YELLOW
[2018-09-21] MEDS: Dyna-Hex 2% Top Sol 2oz TOPIC SCH (20:36)
[2018-09-21] MEDS: Norepinephrine Bitartrate 8 MG in D5W 500ml 550 ML IV SCH (20:38)
[2018-09-21] MEDS: D5NS 1,000 ML IV SCH (20:38)
[2018-09-22] VITALS (38 sets, daily range): BP systolic 75–154; BP diastolic 45–85
[2018-09-22] MEDS: NovoLOG Insulin Flexpen SUBQ SCH ×4 (00:47→18:00)
[2018-09-22 06:10] LABS: BASOPHILS % (AUTO) 0.8 % (0.0-2.0); EOSINOPHILS % (AUTO) 0.4 % (0.0-3.0); HEMATOCRIT 27.4 % (42.0-52.0); HEMOGLOBIN 9.2 G/DL (14.2-18.0); LYMPHOCYTES % (AUTO) 12.5 % (20.0-45.0); MEAN CORPUSCULAR VOLUME 89 FL (80-99); MONOCYTES % (AUTO) 8.2 % (1.0-10.0); NEUTROPHILS % (AUTO) 78.1 % (45.0-75.0); PLATELET COUNT 417 K/UL (150-450); RED BLOOD COUNT 3.09 M/UL (4.70-6.10); RED CELL DISTRIBUTION WIDTH 13.6 % (11.6-14.8); WHITE BLOOD COUNT 6.8 K/UL (4.8-10.8)
[2018-09-22 06:31] LABS: ALANINE AMINOTRANSFERASE 17 U/L (12-78); ALBUMIN 1.2 G/DL (3.4-5.0); ALBUMIN/GLOBULIN RATIO 0.3 (1.0-2.7); ALKALINE PHOSPHATASE 83 U/L (46-116); ANION GAP 10 mmol/L (5-15); ASPARTATE AMINO TRANSFERASE 24 U/L (15-37); BILIRUBIN,TOTAL 0.3 MG/DL (0.2-1.0); BLOOD UREA NITROGEN 8 mg/dL (7-18); CALCIUM 6.7 MG/DL (8.5-10.1); CARBON DIOXIDE 20 MMOL/L (21-32); CHLORIDE 119 MMOL/L (98-107); CREATININE 1.5 MG/DL (0.55-1.30); PHOSPHORUS 3.1 MG/DL (2.5-4.9); POTASSIUM 3.9 MMOL/L (3.5-5.1); SODIUM 149 MMOL/L (136-145)
--- NOTE | 2018-09-22 08:59 | Diagnostic Imaging Report ---
Clinical Indication: Abdominal pain, bleeding from gastrostomy site Technique: 250 mL of water-soluble contrast given. Gastrostomy. IV administration nonionic contrast. Venous phase spiral acquisition obtained through the abdomen and pelvis. Multiplanar reconstructions were generated. Total dose length product 632.57 mGycm. CTDIvol(s) 10.92 mGy. Dose reduction achieved using automated exposure control Comparison: none Findings: There is a gastrostomy tube in place. The balloon appears to be mostly within the gastric lumen. However, it also appears to be partially in communication with a large collection of mixed attenuation material, including contrast, within the posterior and inferior wall of the stomach. This collection measures 12 cm transverse by 9.7 cm AP by 9 cm craniocaudad. There is some anterior wall pneumatosis in communication with the gastrostomy balloon. There is also some extraluminal contrast, probably within the peritoneal space, over the dome of the spleen. It is unclear whether the contrast within the collection and within the peritoneal space represents enteric contrast versus extravasated vascular contrast. A few bubbles of extraluminal gas are seen in the left upper quadrant. A small amount of intraluminal contrast is seen within the fundus of the stomach. Considerable enteric contrast is seen within the distal small bowel and within the colonic lumen. Contrast is seen as far distally as the mid transverse colon. There is a rectal tube in place. There is mild wall thickening of the sigmoid colon and portions of the descending colon. No small bowel distention. There is equivocal mild wall thickening of the proximal jejunum. There is intraperitoneal fluid. There is an enhancing rim of much of the peritoneum. Small discrete collections are seen adjacent to the tip of the right hepatic lobe and subcapsular within the spleen, possibly also discrete loculated collections in the left upper quadrant. There is also infiltration of the mesenteric fat. No evidence of diverticulosis or diverticulitis. The appendix is not definitely visualized, but there are no findings to suggest acute appendicitis. There is a tiny fat-containing umbilical hernia. The liver is unremarkable. The gallbladder demonstrates mural edema. No definite gallstones. The bile ducts and pancreas are unremarkable. The spleen demonstrates the above-mentioned subcapsular collection measuring 2.1 cm laterally. The adrenals and right kidney are unremarkable. The left kidney demonstrates one or more subcentimeter low-attenuation lesions which are too small to characterize. No retroperitoneal or mesenteric mass or adenopathy. No pelvic mass or adenopathy. There is a Silva catheter within the bladder. The bladder contains fluid despite this. Gas within the bladder lumen is presumably related to the Silva catheterization. The included lung bases demonstrate bilateral moderate to large pleural effusions. There is compressive atelectasis of likely all of the right lower lobe, most of the left lower lobe. The bones demonstrate degenerative spondylosis changes. There is diffuse edema of the subcutaneous fat Impression: The gastrostomy tube appears to be partially intraluminal and partially communicate with a large intramural collection involving mostly the inferior posterior wall of the stomach. There is some anterior wall pneumatosis. Contrast within the collection most likely represents instilled enteric contrast, but could also represent extravasated vascular contrast. There is evidence of rupture of this collection into the peritoneal space, with extravasated contrast in the left upper quadrant. There is anterior gastric wall intramural pneumatosis as well as a small amount of free extraluminal gas. Moderate ascites. Enhancement of much of the peritoneum raises concern for peritonitis. There may also be loculated intraperitoneal collections which could represent abscesses, predominantly adjacent to the tip of the right hepatic lobe, subcapsular in the spleen, and within the left upper quadrant Thick-walled sigmoid colon, transverse colon and equivocally the proximal jejunum. Likely reactive related to the above, but could also indicate enteritis/colitis changes Bilateral moderate to large pleural effusions. Compressive atelectasis of likely the entire right lower lobe and most of the left lower lobe Evidence of anasarca, with edema of the subcutaneous fat as well as of the mesenteric fat Gallbladder wall edema, likely related to the above and no definite gallstones are evident Silva catheter. Residual urine within the bladder despite this. Gas within the bladder is likely related to the Silva catheterization Subcentimeter low-attenuation left renal lesions, too small to characterize, most likely benign simple cysts. No further follow-up necessary Degenerative spondylosis Rectal tube Tiny fat-containing abdominal hernia This agrees with the preliminary interpretation provided overnight by Written teleradiology service. Findings also discussed by phone with Dr. Lynne at the time of interpretation The CT scanner at [facility] is accredited by the [employer] and the scans are performed using protocols designed to limit radiation exposure to as low as reasonably achievable to attain images of sufficient resolution adequate for diagnostic evaluation.
[2018-09-22] MEDS: Heparin 5000 units/ml inj SUBQ SCH ×2 (09:00→21:00)
[2018-09-22] MEDS: Pantoprazole Inj IVP SCH ×2 (09:12→21:19)
--- NOTE | 2018-09-22 10:46 | Pulmonolgy Critical Care Note ---
Critical Care - Asmt/Plan Problems: (1) Septic shock (2) ATN (acute tubular necrosis) (3) Hyperkalemia (4) Metabolic acidosis Respiratory: monitor respiratory rate, adjust FIO2, CXR Cardiac: start pressors, continue pressors, continue to monitor HR/BP Renal: F/U I&O Infectious Disease: check cultures Gastrointestinal: continue feedings/current rate Endocrine: monitor blood sugar, check HgA1C Hematologic: transfuse if hgb<8.5 Neurologic: PRN Ativan, keep patient comfortable Affect: PRN ativan Prophylaxis: Heparin Disposition: keep in ICU Time Spent (Minutes): 40 Notes Reviewed: flight deck officer, cardio Discussed with: nurses, consultants, test case developermedical case manager - Objective Last 24 Hour Vital Signs Date Time Temp Pulse Resp B/P (MAP) Pulse Ox O2 Delivery O2 Flow Rate FiO2 09/22/18 10:00 84 22 135/75 100 Mechanical Ventilator 30 09/22/18 09:00 87 18 141/80 100 Mechanical Ventilator 30 09/22/18 08:50 98 14 30 09/22/18 08:45 110 31 30 09/22/18 08:40 95 12 30 09/22/18 08:00 30 09/22/18 08:00 Mechanical Ventilator Mechanical Ventilator Mechanical Ventilator 09/22/18 08:00 98.5 98 26 144/85 100 Mechanical Ventilator 30 09/22/18 07:20 93 09/22/18 07:00 99.6 86 20 124/72 100 Mechanical Ventilator 30 09/22/18 06:56 87 12 30 09/22/18 06:00 87 21 129/78 100 Mechanical Ventilator 30 09/22/18 05:20 90 14 30 09/22/18 05:00 89 18 135/79 100 Mechanical Ventilator 30 09/22/18 04:00 30 09/22/18 04:00 95 09/22/18 04:00 Mechanical Ventilator Mechanical Ventilator 09/22/18 04:00 95 14 124/74 100 Mechanical Ventilator 30 09/22/18 03:12 99 13 30 09/22/18 03:00 97 16 121/77 100 Mechanical Ventilator 30 09/22/18 02:00 93 12 122/72 100 Mechanical Ventilator 30 09/22/18 01:00 99.4 106 15 108/65 100 Mechanical Ventilator 30 09/22/18 00:30 99 12 30 09/22/18 00:00 102 15 122/72 100 Mechanical Ventilator 30 09/22/18 00:00 99 09/22/18 00:00 Mechanical Ventilator Mechanical Ventilator 09/22/18 00:00 30 09/21/18 23:00 103 15 110/65 100 Mechanical Ventilator 30 09/21/18 22:45 109 13 30 09/21/18 22:00 110 15 102/63 100 Mechanical Ventilator 30 09/21/18 21:01 104 12 30 09/21/18 21:00 104 15 105/64 100 Mechanical Ventilator 30 09/21/18 20:38 116/70 09/21/18 20:00 30 09/21/18 20:00 114 09/21/18 20:00 Mechanical Ventilator Mechanical Ventilator 09/21/18 20:00 99.5 105 15 116/70 100 Mechanical Ventilator 30 09/21/18 19:01 115 14 30 09/21/18 19:00 115 15 115/68 100 Mechanical Ventilator 30 09/21/18 18:00 116 15 101/61 100 Mechanical Ventilator 30 09/21/18 17:05 120 13 30 09/21/18 17:00 120 11 133/68 100 Mechanical Ventilator 30 09/21/18 16:02 123 13 30 09/21/18 16:00 132 09/21/18 16:00 Mechanical Ventilator Mechanical Ventilator 09/21/18 16:00 30 09/21/18 16:00 100.1 120 13 99/59 100 Mechanical Ventilator 30 09/21/18 15:00 130 14 117/58 100 Mechanical Ventilator 30 09/21/18 14:00 135 15 105/65 100 Mechanical Ventilator 30 09/21/18 13:30 131 13 30 09/21/18 13:00 128 13 121/59 100 Mechanical Ventilator 30 09/21/18 12:06 96 09/21/18 12:00 30 09/21/18 12:00 132 09/21/18 12:00 100.2 138 25 104/66 100 Mechanical Ventilator 30 09/21/18 12:00 Mechanical Ventilator Mechanical Ventilator 09/21/18 11:14 119 16 30 09/21/18 11:00 116 23 112/70 100 Mechanical Ventilator 30 Status: obtunded Condition: critical Neck: full ROM Heart: HR/BP stable Abdomen: soft, feeding tube Extremities: edema Decubiti: stage Micro: Microbiology Date/Time Source Procedure Growth Status 09/21/18 18:00 Stool Clostridium difficile Toxin Assay - Final Complete 09/21/18 18:00 Urine,Clean Catch Urine Culture - Preliminary Resulted 09/20/18 09:40 Indwelling Cath Urine Culture - Preliminary NO GROWTH AFTER 24 HOURS Resulted Accucheck: 106 Critical Care - Subjective ROS Limited/Unobtainable: Yes Interval Events: bleeding from Gtube site Condition: critical EKG Rhythm: Sinus Rhythm FI02: 30 Vent Support Breath Rate: 12 Vent Support Mode: AC Vent Tidal Volume: 600 Sputum Amount: Small PEEP: 0.0 PIP: 37 Tube Feeding Amount: 0 I&O: Intake and Output 09/21/18 09/22/18 19:00 07:00 Intake Total 1025 ml 1250 ml Output Total 450 ml 680 ml Balance 575 ml 570 ml Intake Free Water 40 ml 275 ml IV Total 700 ml 700 ml Tube Feeding 0 ml Blood Product 275 ml Other 285 ml Output Urine Total 450 ml 480 ml Stool Total 200 ml ET-Tube: 7.5 ET Position: 23 Labs: Laboratory Tests Test 09/21/18 13:30 09/21/18 18:00 09/22/18 06:00 White Blood Count 14.4 K/UL (4.8-10.8) H 6.8 K/UL (4.8-10.8) # Red Blood Count 2.47 M/UL (4.70-6.10) L 3.09 M/UL (4.70-6.10) L Hemoglobin 7.3 G/DL (14.2-18.0) L 9.2 G/DL (14.2-18.0) L Hematocrit 22.5 % (42.0-52.0) L 27.4 % (42.0-52.0) L Mean Corpuscular Volume 91 FL (80-99) 89 FL (80-99) Mean Corpuscular Hemoglobin 29.6 PG (27.0-31.0) 29.8 PG (27.0-31.0) Mean Corpuscular Hemoglobin Concent 32.5 G/DL (32.0-36.0) 33.6 G/DL (32.0-36.0) Red Cell Distribution Width 13.6 % (11.6-14.8) 13.6 % (11.6-14.8) Platelet Count 503 K/UL (150-450) H 417 K/UL (150-450) Mean Platelet Volume 5.0 FL (6.5-10.1) L 5.1 FL (6.5-10.1) L Neutrophils (%) (Auto) % (45.0-75.0) 78.1 % (45.0-75.0) H Lymphocytes (%) (Auto) % (20.0-45.0) 12.5 % (20.0-45.0) L Monocytes (%) (Auto) % (1.0-10.0) 8.2 % (1.0-10.0) Eosinophils (%) (Auto) % (0.0-3.0) 0.4 % (0.0-3.0) Basophils (%) (Auto) % (0.0-2.0) 0.8 % (0.0-2.0) Differential Total Cells Counted 100 Neutrophils % (Manual) 83 % (45-75) H Lymphocytes % (Manual) 6 % (20-45) L Monocytes % (Manual) 4 % (1-10) Eosinophils % (Manual) 0 % (0-3) Basophils % (Manual) 0 % (0-2) Band Neutrophils 7 % (0-8) Platelet Estimate Increased H Platelet Morphology Normal Hypochromasia 1+ Anisocytosis 1+ Prothrombin Time 12.6 SEC (9.30-11.50) H Prothromb Time International Ratio 1.2 (0.9-1.1) H Activated Partial Thromboplast Time 39 SEC (23-33) H Sodium Level 148 MMOL/L (136-145) H 149 MMOL/L (136-145) H Potassium Level 3.7 MMOL/L (3.5-5.1) 3.9 MMOL/L (3.5-5.1) Chloride Level 118 MMOL/L (98-107) H 119 MMOL/L (98-107) H Carbon Dioxide Level 19 MMOL/L (21-32) L 20 MMOL/L (21-32) L Anion Gap 11 mmol/L (5-15) 10 mmol/L (5-15) Blood Urea Nitrogen 9 mg/dL (7-18) 8 mg/dL (7-18) Creatinine 1.6 MG/DL (0.55-1.30) H 1.5 MG/DL (0.55-1.30) H Estimat Glomerular Filtration Rate 44.3 mL/min (>60) 47.7 mL/min (>60) Glucose Level 146 MG/DL (74-106) H 96 MG/DL (74-106) Calcium Level 6.8 MG/DL (8.5-10.1) L 6.7 MG/DL (8.5-10.1) L Total Bilirubin 0.3 MG/DL (0.2-1.0) 0.3 MG/DL (0.2-1.0) Aspartate Amino Transf (AST/SGOT) 29 U/L (15-37) 24 U/L (15-37) Alanine Aminotransferase (ALT/SGPT) 15 U/L (12-78) 17 U/L (12-78) Alkaline Phosphatase 83 U/L (46-116) 83 U/L (46-116) Total Protein 4.9 G/DL (6.4-8.2) L 5.0 G/DL (6.4-8.2) L Albumin 1.1 G/DL (3.4-5.0) L 1.2 G/DL (3.4-5.0) L Globulin 3.8 g/dL 3.8 g/dL Albumin/Globulin Ratio 0.3 (1.0-2.7) L 0.3 (1.0-2.7) L Urine Color Pale yellow Urine Appearance Slightly cloudy Urine pH 5 (4.5-8.0) Urine Specific [place] 1.025 (1.005-1.035) Urine Protein 2+ (NEGATIVE) H Urine Glucose (UA) Negative (NEGATIVE) Urine Ketones Negative (NEGATIVE) Urine Blood Negative (NEGATIVE) Urine Nitrite Negative (NEGATIVE) Urine Bilirubin Negative (NEGATIVE) Urine Urobilinogen Normal MG/DL (0.0-1.0) Urine Leukocyte Esterase 1+ (NEGATIVE) H Urine RBC 0-2 /HPF (0 - 0) H Urine WBC 2-4 /HPF (0 - 0) Urine Squamous Epithelial Cells None /LPF (NONE/OCC) Urine Bacteria Few /HPF (NONE) Urine Yeast Few /HPF (NONE) H Phosphorus Level 3.1 MG/DL (2.5-4.9) Magnesium Level 1.9 MG/DL (1.8-2.4) Zarrabi,Mirali MD Sep 22, 2018 10:46
--- NOTE | 2018-09-22 11:45 | Nephrology Progress Note ---
Assessment/Plan Problem List: (1) ATN (acute tubular necrosis) (2) Septic shock (3) Lactic acid acidosis (4) Metabolic acidosis (5) Hyperkalemia (6) G tube feedings (7) Acute respiratory failure Assessment over all improved: cr rising again presented with Shock , likely septic Acute renal failure resolved Acute metabolic acidosis resolved Hyperkalemia PEG Recent Pneumonia Plan plan: failing weaning due laparatomy for GT adjustment and ? Trach? midodrine as needed pulmonary support Fluid challenge as needed Silva K and Phos and Mag supplement as needed antibiotics monitor renal parameters and ABG Subjective ROS Limited/Unobtainable: Yes Objective Objective Last 24 Hour Vital Signs Date Time Temp Pulse Resp B/P (MAP) Pulse Ox O2 Delivery O2 Flow Rate FiO2 09/22/18 11:06 96 12 30 09/22/18 11:00 81 14 138/79 100 Mechanical Ventilator 30 09/22/18 10:00 84 22 135/75 100 Mechanical Ventilator 30 09/22/18 09:00 87 18 141/80 100 Mechanical Ventilator 30 09/22/18 08:50 98 14 30 09/22/18 08:45 110 31 30 09/22/18 08:40 95 12 30 09/22/18 08:00 30 09/22/18 08:00 Mechanical Ventilator Mechanical Ventilator Mechanical Ventilator 09/22/18 08:00 98.5 98 26 144/85 100 Mechanical Ventilator 30 09/22/18 07:20 93 09/22/18 07:00 99.6 86 20 124/72 100 Mechanical Ventilator 30 09/22/18 06:56 87 12 30 09/22/18 06:00 87 21 129/78 100 Mechanical Ventilator 30 09/22/18 05:20 90 14 30 09/22/18 05:00 89 18 135/79 100 Mechanical Ventilator 30 09/22/18 04:00 30 09/22/18 04:00 95 09/22/18 04:00 Mechanical Ventilator Mechanical Ventilator 09/22/18 04:00 95 14 124/74 100 Mechanical Ventilator 30 09/22/18 03:12 99 13 30 09/22/18 03:00 97 16 121/77 100 Mechanical Ventilator 30 09/22/18 02:00 93 12 122/72 100 Mechanical Ventilator 30 09/22/18 01:00 99.4 106 15 108/65 100 Mechanical Ventilator 30 09/22/18 00:30 99 12 30 09/22/18 00:00 102 15 122/72 100 Mechanical Ventilator 30 09/22/18 00:00 99 09/22/18 00:00 Mechanical Ventilator Mechanical Ventilator 09/22/18 00:00 30 09/21/18 23:00 103 15 110/65 100 Mechanical Ventilator 30 09/21/18 22:45 109 13 30 09/21/18 22:00 110 15 102/63 100 Mechanical Ventilator 30 09/21/18 21:01 104 12 30 09/21/18 21:00 104 15 105/64 100 Mechanical Ventilator 30 09/21/18 20:38 116/70 09/21/18 20:00 30 09/21/18 20:00 114 09/21/18 20:00 Mechanical Ventilator Mechanical Ventilator 09/21/18 20:00 99.5 105 15 116/70 100 Mechanical Ventilator 30 09/21/18 19:01 115 14 30 09/21/18 19:00 115 15 115/68 100 Mechanical Ventilator 30 09/21/18 18:00 116 15 101/61 100 Mechanical Ventilator 30 09/21/18 17:05 120 13 30 09/21/18 17:00 120 11 133/68 100 Mechanical Ventilator 30 09/21/18 16:02 123 13 30 09/21/18 16:00 132 09/21/18 16:00 Mechanical Ventilator Mechanical Ventilator 09/21/18 16:00 30 09/21/18 16:00 100.1 120 13 99/59 100 Mechanical Ventilator 30 09/21/18 15:00 130 14 117/58 100 Mechanical Ventilator 30 09/21/18 14:00 135 15 105/65 100 Mechanical Ventilator 30 09/21/18 13:30 131 13 30 09/21/18 13:00 128 13 121/59 100 Mechanical Ventilator 30 09/21/18 12:06 96 09/21/18 12:00 30 09/21/18 12:00 132 09/21/18 12:00 100.2 138 25 104/66 100 Mechanical Ventilator 30 09/21/18 12:00 Mechanical Ventilator Mechanical Ventilator Intake and Output 09/21/18 09/22/18 18:59 06:59 Intake Total 1025 ml 1250 ml Output Total 650 ml 480 ml Balance 375 ml 770 ml Intake Free Water 40 ml 275 ml IV Total 700 ml 700 ml Tube Feeding 0 ml 0 ml Blood Product 275 ml Other 285 ml Output Urine Total 450 ml 480 ml Stool Total 200 ml Laboratory Tests 09/21/18 13:30: White Blood Count 14.4H, Red Blood Count 2.47L, Hemoglobin 7.3L, Hematocrit 22.5L, Mean Corpuscular Volume 91, Mean Corpuscular Hemoglobin 29.6, Mean Corpuscular Hemoglobin Concent 32.5, Red Cell Distribution Width 13.6, Platelet Count 503H, Mean Platelet Volume 5.0L, Neutrophils (%) (Auto) , Lymphocytes (%) (Auto) , Monocytes (%) (Auto) , Eosinophils (%) (Auto) , Basophils (%) (Auto) , Differential Total Cells Counted 100, Neutrophils % (Manual) 83H, Lymphocytes % (Manual) 6L, Monocytes % (Manual) 4, Eosinophils % (Manual) 0, Basophils % ( Manual) 0, Band Neutrophils 7, Platelet Estimate IncreasedH, Platelet Morphology Normal, Hypochromasia 1+, Anisocytosis 1+, Prothrombin Time 12.6H, Prothromb Time International Ratio 1.2H, Activated Partial Thromboplast Time 39H , Sodium Level 148H, Potassium Level 3.7, Chloride Level 118H, Carbon Dioxide Level 19L, Anion Gap 11, Blood Urea Nitrogen 9, Creatinine 1.6H, Estimat Glomerular Filtration Rate 44.3, Glucose Level 146H, Calcium Level 6.8L, Total Bilirubin 0.3, Aspartate Amino Transf (AST/SGOT) 29, Alanine Aminotransferase ( ALT/SGPT) 15, Alkaline Phosphatase 83, Total Protein 4.9L, Albumin 1.1L, Globulin 3.8, Albumin/Globulin Ratio 0.3L 09/21/18 18:00: Urine Color Pale yellow, Urine Appearance Slightly cloudy, Urine pH 5, Urine Specific [place] 1.025, Urine Protein 2+H, Urine Glucose (UA) Negative, Urine Ketones Negative, Urine Blood Negative, Urine Nitrite Negative, Urine Bilirubin Negative, Urine Urobilinogen Normal, Urine Leukocyte Esterase 1+H, Urine RBC 0- 2H, Urine WBC 2-4, Urine Squamous Epithelial Cells None, Urine Bacteria Few, Urine Yeast FewH 09/22/18 06:00: White Blood Count 6.8#, Red Blood Count 3.09L, Hemoglobin 9.2L, Hematocrit 27.4L , Mean Corpuscular Volume 89, Mean Corpuscular Hemoglobin 29.8, Mean Corpuscular Hemoglobin Concent 33.6, Red Cell Distribution Width 13.6, Platelet Count 417, Mean Platelet Volume 5.1L, Neutrophils (%) (Auto) 78.1H, Lymphocytes (%) (Auto) 12.5L, Monocytes (%) (Auto) 8.2, Eosinophils (%) (Auto) 0.4, Basophils (%) (Auto) 0.8, Sodium Level 149H, Potassium Level 3.9, Chloride Level 119H, Carbon Dioxide Level 20L, Anion Gap 10, Blood Urea Nitrogen 8, Creatinine 1.5H, Estimat Glomerular Filtration Rate 47.7, Glucose Level 96, Calcium Level 6.7L, Total Bilirubin 0.3, Aspartate Amino Transf (AST/SGOT) 24, Alanine Aminotransferase (ALT/SGPT) 17, Alkaline Phosphatase 83, Total Protein 5.0L, Albumin 1.2L, Globulin 3.8, Albumin/Globulin Ratio 0.3L, Phosphorus Level 3.1, Magnesium Level 1.9 Height (Feet): 5 Height (Inches): 5.00 Weight (Pounds): 122 EENT: other - vented Cardiovascular: tachycardia Respiratory/Chest: decreased breath sounds Abdomen: distended Objective no other changes Josesito Smalls MD Sep 22, 2018 11:45
--- NOTE | 2018-09-22 12:46 | Diagnostic Imaging Report ---
Indication: Cough Technique: One view of the chest Comparison: 09/21/2018 Findings: Endotracheal tube remains just above the bill. Left arm PICC remains in satisfactory position. Bilateral pleural effusions, basilar atelectatic changes, and interstitial congestive changes are stable. Gastrostomy tube remains. Findings are overall unchanged Impression: Unchanged, over one day, findings as above.
[2018-09-22] MEDS ORDERED: Zemuron 50mg/5ml Inj IV ONE (13:45)
[2018-09-22] MEDS ORDERED: Midazolam 2mg/2ml Inj ONE (13:49)
[2018-09-22] MEDS ORDERED: fentaNYL 100 mcg/2 mL IV ONE (13:49)
[2018-09-22] MEDS ORDERED: Bacitracin 50000 Units Vial ONE ×2 (13:56→15:39)
[2018-09-22] MEDS ORDERED: NeoSporin Gu Irrig 1ml Amp IRRIG ONE ×2 (13:56→15:39)
[2018-09-22] MEDS ORDERED: Lidocaine 1% 10mg/ml/Epi 0.005mg/ml 30ml vial INJ ONE (13:56)
[2018-09-22] MEDS ORDERED: LR 1000ml ONE (14:00)
--- NOTE | 2018-09-22 14:10 | Anethesia Preoperative Eval ---
Anesthesia Pre-op PMH/ROS General Date of Evaluation: Sep 22, 2018 Time of Evaluation: 14:04 Anesthesiologist: Isaak ASA Score: ASA 4 Mallampati Score Class I : Soft palate, uvula, fauces, pillars visible Class II: Soft palate, uvula, fauces visible Class III: Soft palate, base of uvula visible Class IV: Only hard plate visible Mallampati Classification: Class III Surgeon: Diane Diagnosis: Respiratory failure, Peritonitis Surgical Procedure: Tracheostomy Ex laparotomy Anesthesia History: none Family History: no anesthesia problems Allergies: Coded Allergies: No Known Allergies (Unverified , 08/14/18) Patient NPO?: Yes Past Medical History Cardiovascular: Reports: HTN; Denies: CAD, [place], valve dz, arrhythmia, other Pulmonary: Reports: COPD, other - Resspiratory failure, intubated on vent; Denies: asthma, NIURKA Gastrointestinal/Genitourinary: Reports: GERD, CRI, other - Dysphagia feeding tube in place Neurologic/Psychiatric: Reports: dementia, other - Quadriplegia, schizophrenia ; Denies: CVA, depression/anxiety, TIA Endocrine: Reports: DM, hypothyroidism; Denies: steroids, other HEENT: Denies: cataract (L), cataract (R), glaucoma, ALLAKAKET (L), ALLAKAKET (R), other Hematology/Immune: Reports: anemia; Denies: DVT, bleeding disorder, other Musculoskeletal/Integumentary: Reports: edema, other - severly contracted; Denies: OA, RA, DJD, DDD Other: other - malnourished PMH Narrative: as above admitted for sepsis respiratory failure. PSxH Narrative: See H&P Anesthesia Pre-op Phys. Exam Physician Exam Last Vital Signs Date Time Temp Pulse Resp B/P (MAP) Pulse Ox O2 Delivery O2 Flow Rate FiO2 09/22/18 13:20 92 12 30 09/22/18 13:00 132/77 100 Mechanical Ventilator 09/22/18 12:00 98.1 Constitutional: NAD Neurologic: other - unable to obtaine Cardiovascular: RRR Respiratory: other - diminished breath sounds bilaterally Gastrointestinal: other - distemded Airway Exam Mallampati Score: Class III MO: limited Neck: stiff Teeth: missing Dentures: no upper, no lower Anesthesia Pre-op A/P Labs Hematology Test 09/22/18 06:00 White Blood Count 6.8 K/UL (4.8-10.8) # Red Blood Count 3.09 M/UL (4.70-6.10) L Hemoglobin 9.2 G/DL (14.2-18.0) L Hematocrit 27.4 % (42.0-52.0) L Mean Corpuscular Volume 89 FL (80-99) Mean Corpuscular Hemoglobin 29.8 PG (27.0-31.0) Mean Corpuscular Hemoglobin Concent 33.6 G/DL (32.0-36.0) Red Cell Distribution Width 13.6 % (11.6-14.8) Platelet Count 417 K/UL (150-450) Mean Platelet Volume 5.1 FL (6.5-10.1) L Neutrophils (%) (Auto) 78.1 % (45.0-75.0) H Lymphocytes (%) (Auto) 12.5 % (20.0-45.0) L Monocytes (%) (Auto) 8.2 % (1.0-10.0) Eosinophils (%) (Auto) 0.4 % (0.0-3.0) Basophils (%) (Auto) 0.8 % (0.0-2.0) Chemistry Test 09/22/18 06:00 Sodium Level 149 MMOL/L (136-145) H Potassium Level 3.9 MMOL/L (3.5-5.1) Chloride Level 119 MMOL/L (98-107) H Carbon Dioxide Level 20 MMOL/L (21-32) L Anion Gap 10 mmol/L (5-15) Blood Urea Nitrogen 8 mg/dL (7-18) Creatinine 1.5 MG/DL (0.55-1.30) H Estimat Glomerular Filtration Rate 47.7 mL/min (>60) Glucose Level 96 MG/DL (74-106) Calcium Level 6.7 MG/DL (8.5-10.1) L Phosphorus Level 3.1 MG/DL (2.5-4.9) Magnesium Level 1.9 MG/DL (1.8-2.4) Total Bilirubin 0.3 MG/DL (0.2-1.0) Aspartate Amino Transf (AST/SGOT) 24 U/L (15-37) Alanine Aminotransferase (ALT/SGPT) 17 U/L (12-78) Alkaline Phosphatase 83 U/L (46-116) Total Protein 5.0 G/DL (6.4-8.2) L Albumin 1.2 G/DL (3.4-5.0) L Globulin 3.8 g/dL Albumin/Globulin Ratio 0.3 (1.0-2.7) L Studies Pre-op Studies: echo - EF55-60% Risk Assessment & Plan Assessment: ASA 4 Plan: GA with ETT Status Change Before Surgery: No Pre-Antibiotics Drug: as scheduled Lei Mulligan MD Sep 22, 2018 14:09
--- NOTE | 2018-09-22 14:40 | General Progress Note ---
Progress Note Progress Note Surgery: CT results noted. Exam with leaking around g tube consistent with malpositioned as noted on CT. had meeting with medical teams / multidisciplinary group today to discuss findings, prognosis and care plan patient is full code and not represented. all attempts to find surrogate or family without outcome. patient made a significant recovery from initial septic episode. now complicated by recent malposition of tube and leak. unfortunately currently problem not compatible with life. surgery complex and with morbidity and even mortality but if we plan to continue care as we have been then surgery is recommended and indicated. will plan for exploration today. will need to repair perforation / malpositioned tube, washout, and place drains. may need new feeding access if possible will also need trach as this was planned for this week already given recovery but unable to wean from vent discussed above with medical teams and all in agree with plan of care. Isreal Lynne Sep 22, 2018 14:40
--- NOTE | 2018-09-22 14:41 | Pre-Procedure Note/Attestation ---
Pre-Procedure Note/Attestation Complete Prior to Procedure Planned Procedure: not applicable Procedure Narrative: 1. exploratory laparotomy, possible bowel resection, possible ostomy, abdominal washout, feeding tube placement 2. tracheostomy Indications for Procedure Pre-Operative Diagnosis: 1. malpositioned feeding tube with leak and peritonitis/perforation 2. respiratory insufficiency requiring prolonged ventilatory support Attestation I attest that I discussed the nature of the procedure; its benefits; risks and complications; and alternatives (and the risks and benefits of such alternatives ), prior to the procedure, with the patient (or the patient's legal apprenticeship representative). I attest that, if there was a reasonable possibility of needing a blood transfusion, the patient (or the patient's legal apprenticeship representative) was given the [place] Department of [employer] Services standardized written summary, pursuant to the [place] Blood Safety Act ([place] Health and Safety Code # 1645, as amended). I attest that I re-evaluated the patient just prior to the surgery and that there has been no change in the patient's H&P, except as documented below: Isreal Lynne Sep 22, 2018 14:41
--- NOTE | 2018-09-22 14:47 | Cardiac Electrophysiology PN ---
Assessment/Plan Assessment/Plan 1. S/P Septic and hemorrhagic shock with Lactic acidosis. On iv fluids, Abx and S/P PRBC 2. Sinus tachycardia with heart rate in 140s due to sepsis, anemia and dehydration. No fibrillation. EF of 75%.HR now in 90s 3. Troponin elevation due to renal failure. EF 75%. 4. Respiratory failure on the vent. Tracheostomy pending today 5. Rhabdomyolysis with CPK in thousands. May be contributing to renal failure. 6. Acute renal failure and severe hyperkalemia. Resolved FU by Dr. Smalls 7. Dysphagia, status post PEG placement. Ex Lap for PEG site bleeding today 8. GI bleed. S/P EGD by Dr Horton. S/p PRBCs DW RN Subjective Subjective In ICU on the Vent. In Sinus rhythm in s scheduled ofr Tracheostomy and Laparoscopy to evaluated GT bleeding Had 2 units of PRBC last night Objective Last 24 Hour Vital Signs Date Time Temp Pulse Resp B/P (MAP) Pulse Ox O2 Delivery O2 Flow Rate FiO2 09/22/18 13:20 92 12 30 09/22/18 13:00 89 12 132/77 100 Mechanical Ventilator 30 09/22/18 12:00 98.1 90 11 137/77 100 Mechanical Ventilator 30 09/22/18 12:00 Mechanical Ventilator Mechanical Ventilator Mechanical Ventilator 09/22/18 12:00 30 09/22/18 11:06 96 12 30 09/22/18 11:00 81 14 138/79 100 Mechanical Ventilator 30 09/22/18 10:00 84 22 135/75 100 Mechanical Ventilator 30 09/22/18 09:00 87 18 141/80 100 Mechanical Ventilator 30 09/22/18 08:50 98 14 30 09/22/18 08:45 110 31 30 09/22/18 08:40 95 12 30 09/22/18 08:00 30 09/22/18 08:00 Mechanical Ventilator Mechanical Ventilator Mechanical Ventilator 09/22/18 08:00 98.5 98 26 144/85 100 Mechanical Ventilator 30 09/22/18 07:20 93 09/22/18 07:00 99.6 86 20 124/72 100 Mechanical Ventilator 30 09/22/18 06:56 87 12 30 09/22/18 06:00 87 21 129/78 100 Mechanical Ventilator 30 09/22/18 05:20 90 14 30 09/22/18 05:00 89 18 135/79 100 Mechanical Ventilator 30 09/22/18 04:00 30 09/22/18 04:00 95 09/22/18 04:00 Mechanical Ventilator Mechanical Ventilator 09/22/18 04:00 95 14 124/74 100 Mechanical Ventilator 30 09/22/18 03:12 99 13 30 09/22/18 03:00 97 16 121/77 100 Mechanical Ventilator 30 09/22/18 02:00 93 12 122/72 100 Mechanical Ventilator 30 09/22/18 01:00 99.4 106 15 108/65 100 Mechanical Ventilator 30 09/22/18 00:30 99 12 30 09/22/18 00:00 102 15 122/72 100 Mechanical Ventilator 30 09/22/18 00:00 99 09/22/18 00:00 Mechanical Ventilator Mechanical Ventilator 09/22/18 00:00 30 09/21/18 23:00 103 15 110/65 100 Mechanical Ventilator 30 09/21/18 22:45 109 13 30 09/21/18 22:00 110 15 102/63 100 Mechanical Ventilator 30 09/21/18 21:01 104 12 30 09/21/18 21:00 104 15 105/64 100 Mechanical Ventilator 30 09/21/18 20:38 116/70 09/21/18 20:00 30 09/21/18 20:00 114 09/21/18 20:00 Mechanical Ventilator Mechanical Ventilator 09/21/18 20:00 99.5 105 15 116/70 100 Mechanical Ventilator 30 09/21/18 19:01 115 14 30 09/21/18 19:00 115 15 115/68 100 Mechanical Ventilator 30 09/21/18 18:00 116 15 101/61 100 Mechanical Ventilator 30 09/21/18 17:05 120 13 30 09/21/18 17:00 120 11 133/68 100 Mechanical Ventilator 30 09/21/18 16:02 123 13 30 09/21/18 16:00 132 09/21/18 16:00 Mechanical Ventilator Mechanical Ventilator 09/21/18 16:00 30 09/21/18 16:00 100.1 120 13 99/59 100 Mechanical Ventilator 30 09/21/18 15:00 130 14 117/58 100 Mechanical Ventilator 30 Intake and Output 09/21/18 09/22/18 18:59 06:59 Intake Total 1025 ml 1250 ml Output Total 650 ml 480 ml Balance 375 ml 770 ml Intake Free Water 40 ml 275 ml IV Total 700 ml 700 ml Tube Feeding 0 ml 0 ml Blood Product 275 ml Other 285 ml Output Urine Total 450 ml 480 ml Stool Total 200 ml Laboratory Tests Test 09/21/18 18:00 09/22/18 06:00 Urine Color Pale yellow Urine Appearance Slightly cloudy Urine pH 5 (4.5-8.0) Urine Specific [place] 1.025 (1.005-1.035) Urine Protein 2+ (NEGATIVE) H Urine Glucose (UA) Negative (NEGATIVE) Urine Ketones Negative (NEGATIVE) Urine Blood Negative (NEGATIVE) Urine Nitrite Negative (NEGATIVE) Urine Bilirubin Negative (NEGATIVE) Urine Urobilinogen Normal MG/DL (0.0-1.0) Urine Leukocyte Esterase 1+ (NEGATIVE) H Urine RBC 0-2 /HPF (0 - 0) H Urine WBC 2-4 /HPF (0 - 0) Urine Squamous Epithelial Cells None /LPF (NONE/OCC) Urine Bacteria Few /HPF (NONE) Urine Yeast Few /HPF (NONE) H White Blood Count 6.8 K/UL (4.8-10.8) # Red Blood Count 3.09 M/UL (4.70-6.10) L Hemoglobin 9.2 G/DL (14.2-18.0) L Hematocrit 27.4 % (42.0-52.0) L Mean Corpuscular Volume 89 FL (80-99) Mean Corpuscular Hemoglobin 29.8 PG (27.0-31.0) Mean Corpuscular Hemoglobin Concent 33.6 G/DL (32.0-36.0) Red Cell Distribution Width 13.6 % (11.6-14.8) Platelet Count 417 K/UL (150-450) Mean Platelet Volume 5.1 FL (6.5-10.1) L Neutrophils (%) (Auto) 78.1 % (45.0-75.0) H Lymphocytes (%) (Auto) 12.5 % (20.0-45.0) L Monocytes (%) (Auto) 8.2 % (1.0-10.0) Eosinophils (%) (Auto) 0.4 % (0.0-3.0) Basophils (%) (Auto) 0.8 % (0.0-2.0) Sodium Level 149 MMOL/L (136-145) H Potassium Level 3.9 MMOL/L (3.5-5.1) Chloride Level 119 MMOL/L (98-107) H Carbon Dioxide Level 20 MMOL/L (21-32) L Anion Gap 10 mmol/L (5-15) Blood Urea Nitrogen 8 mg/dL (7-18) Creatinine 1.5 MG/DL (0.55-1.30) H Estimat Glomerular Filtration Rate 47.7 mL/min (>60) Glucose Level 96 MG/DL (74-106) Calcium Level 6.7 MG/DL (8.5-10.1) L Phosphorus Level 3.1 MG/DL (2.5-4.9) Magnesium Level 1.9 MG/DL (1.8-2.4) Total Bilirubin 0.3 MG/DL (0.2-1.0) Aspartate Amino Transf (AST/SGOT) 24 U/L (15-37) Alanine Aminotransferase (ALT/SGPT) 17 U/L (12-78) Alkaline Phosphatase 83 U/L (46-116) Total Protein 5.0 G/DL (6.4-8.2) L Albumin 1.2 G/DL (3.4-5.0) L Globulin 3.8 g/dL Albumin/Globulin Ratio 0.3 (1.0-2.7) L Microbiology Date/Time Source Procedure Growth Status 09/21/18 18:00 Stool Clostridium difficile Toxin Assay - Final Complete 09/21/18 18:00 Urine,Clean Catch Urine Culture - Preliminary Resulted 09/20/18 09:40 Indwelling Cath Urine Culture - Preliminary NO GROWTH AFTER 24 HOURS Resulted Objective HEENT: Orally intubated. LUNGS: Coarse rhonchi. CARDIOVASCULAR: Tachycardic S1 and S2. ABDOMEN: G-tube leaking EXTREMITIES: No pitting edema. Jasbir Madsen MD Sep 22, 2018 14:47
[2018-09-22] MEDS ORDERED: Phenylephrine 10mg/ml Vial ONE (14:50)
--- NOTE | 2018-09-22 14:51 | General Progress Note ---
Assessment/Plan Problem List: (1) UTI (urinary tract infection) ICD Codes: N39.0 - Urinary tract infection, site not specified SNOMED: 34121379 (2) Renal failure ICD Codes: N19 - Unspecified kidney failure SNOMED: 14282483 (3) Anemia ICD Codes: D64.9 - Anemia, unspecified SNOMED: 962118335 (4) Acute respiratory failure ICD Codes: J96.00 - Acute respiratory failure, unspecified whether with hypoxia or hypercapnia SNOMED: 12151319 (5) Pneumonia ICD Codes: J18.9 - Pneumonia, unspecified organism SNOMED: 655278412 (6) Septic shock ICD Codes: A41.9 - Sepsis, unspecified organism; R65.21 - Severe sepsis with septic shock SNOMED: 53636099 (7) ATN (acute tubular necrosis) ICD Codes: N17.0 - Acute kidney failure with tubular necrosis SNOMED: 82653546 Status: unchanged Assessment/Plan vent abx wound care neph f/u gi eval cbc bmp am pending trach ltach transfer Subjective Constitutional: Reports: weakness Allergies: Coded Allergies: No Known Allergies (Unverified , 08/14/18) All Systems: reviewed and negative except above Subjective intubated sedated awaiting exp lap and trach Objective Last 24 Hour Vital Signs Date Time Temp Pulse Resp B/P (MAP) Pulse Ox O2 Delivery O2 Flow Rate FiO2 09/22/18 13:20 92 12 30 09/22/18 13:00 89 12 132/77 100 Mechanical Ventilator 30 09/22/18 12:00 98.1 90 11 137/77 100 Mechanical Ventilator 30 09/22/18 12:00 Mechanical Ventilator Mechanical Ventilator Mechanical Ventilator 09/22/18 12:00 30 09/22/18 11:06 96 12 30 09/22/18 11:00 81 14 138/79 100 Mechanical Ventilator 30 09/22/18 10:00 84 22 135/75 100 Mechanical Ventilator 30 09/22/18 09:00 87 18 141/80 100 Mechanical Ventilator 30 09/22/18 08:50 98 14 30 09/22/18 08:45 110 31 30 09/22/18 08:40 95 12 30 09/22/18 08:00 30 09/22/18 08:00 Mechanical Ventilator Mechanical Ventilator Mechanical Ventilator 09/22/18 08:00 98.5 98 26 144/85 100 Mechanical Ventilator 30 09/22/18 07:20 93 09/22/18 07:00 99.6 86 20 124/72 100 Mechanical Ventilator 30 09/22/18 06:56 87 12 30 09/22/18 06:00 87 21 129/78 100 Mechanical Ventilator 30 09/22/18 05:20 90 14 30 09/22/18 05:00 89 18 135/79 100 Mechanical Ventilator 30 09/22/18 04:00 30 09/22/18 04:00 95 09/22/18 04:00 Mechanical Ventilator Mechanical Ventilator 09/22/18 04:00 95 14 124/74 100 Mechanical Ventilator 30 09/22/18 03:12 99 13 30 09/22/18 03:00 97 16 121/77 100 Mechanical Ventilator 30 09/22/18 02:00 93 12 122/72 100 Mechanical Ventilator 30 09/22/18 01:00 99.4 106 15 108/65 100 Mechanical Ventilator 30 09/22/18 00:30 99 12 30 09/22/18 00:00 102 15 122/72 100 Mechanical Ventilator 30 09/22/18 00:00 99 09/22/18 00:00 Mechanical Ventilator Mechanical Ventilator 09/22/18 00:00 30 09/21/18 23:00 103 15 110/65 100 Mechanical Ventilator 30 09/21/18 22:45 109 13 30 09/21/18 22:00 110 15 102/63 100 Mechanical Ventilator 30 09/21/18 21:01 104 12 30 09/21/18 21:00 104 15 105/64 100 Mechanical Ventilator 30 09/21/18 20:38 116/70 09/21/18 20:00 30 09/21/18 20:00 114 09/21/18 20:00 Mechanical Ventilator Mechanical Ventilator 09/21/18 20:00 99.5 105 15 116/70 100 Mechanical Ventilator 30 09/21/18 19:01 115 14 30 09/21/18 19:00 115 15 115/68 100 Mechanical Ventilator 30 09/21/18 18:00 116 15 101/61 100 Mechanical Ventilator 30 09/21/18 17:05 120 13 30 09/21/18 17:00 120 11 133/68 100 Mechanical Ventilator 30 09/21/18 16:02 123 13 30 09/21/18 16:00 132 09/21/18 16:00 Mechanical Ventilator Mechanical Ventilator 09/21/18 16:00 30 09/21/18 16:00 100.1 120 13 99/59 100 Mechanical Ventilator 30 09/21/18 15:00 130 14 117/58 100 Mechanical Ventilator 30 Intake and Output 09/21/18 09/22/18 18:59 06:59 Intake Total 1025 ml 1250 ml Output Total 650 ml 480 ml Balance 375 ml 770 ml Intake Free Water 40 ml 275 ml IV Total 700 ml 700 ml Tube Feeding 0 ml 0 ml Blood Product 275 ml Other 285 ml Output Urine Total 450 ml 480 ml Stool Total 200 ml Laboratory Tests 09/21/18 18:00: Urine Color Pale yellow, Urine Appearance Slightly cloudy, Urine pH 5, Urine Specific [place] 1.025, Urine Protein 2+H, Urine Glucose (UA) Negative, Urine Ketones Negative, Urine Blood Negative, Urine Nitrite Negative, Urine Bilirubin Negative, Urine Urobilinogen Normal, Urine Leukocyte Esterase 1+H, Urine RBC 0- 2H, Urine WBC 2-4, Urine Squamous Epithelial Cells None, Urine Bacteria Few, Urine Yeast FewH 09/22/18 06:00: White Blood Count 6.8#, Red Blood Count 3.09L, Hemoglobin 9.2L, Hematocrit 27.4L , Mean Corpuscular Volume 89, Mean Corpuscular Hemoglobin 29.8, Mean Corpuscular Hemoglobin Concent 33.6, Red Cell Distribution Width 13.6, Platelet Count 417, Mean Platelet Volume 5.1L, Neutrophils (%) (Auto) 78.1H, Lymphocytes (%) (Auto) 12.5L, Monocytes (%) (Auto) 8.2, Eosinophils (%) (Auto) 0.4, Basophils (%) (Auto) 0.8, Sodium Level 149H, Potassium Level 3.9, Chloride Level 119H, Carbon Dioxide Level 20L, Anion Gap 10, Blood Urea Nitrogen 8, Creatinine 1.5H, Estimat Glomerular Filtration Rate 47.7, Glucose Level 96, Calcium Level 6.7L, Phosphorus Level 3.1, Magnesium Level 1.9, Total Bilirubin 0.3, Aspartate Amino Transf (AST/SGOT) 24, Alanine Aminotransferase (ALT/SGPT) 17, Alkaline Phosphatase 83, Total Protein 5.0L, Albumin 1.2L, Globulin 3.8, Albumin/Globulin Ratio 0.3L Height (Feet): 5 Height (Inches): 5.00 Weight (Pounds): 122 General Appearance: lethargic EENT: normal ENT inspection Neck: normal alignment Cardiovascular: normal peripheral pulses, normal rate, regular rhythm Respiratory/Chest: chest wall non-tender, lungs clear, normal breath sounds Abdomen: normal bowel sounds, non tender, soft Extremities: normal inspection Edema: no edema noted Arm (L), no edema noted Arm (R), no edema noted Leg (L), no edema noted Leg (R), no edema noted Pedal (L), no edema noted Pedal (R), no edema noted Generalized Neurologic: motor weakness Skin: normal pigmentation, warm/dry Lymphatic: normal anterior cervical (L), normal anterior cervical (R), normal posterior cervical (L), normal posterior cervical (R), normal submandibular (L) , normal submandibular (R), normal supraclavicular (L), normal supraclavicular ( R), normal axillary (L), normal axillary (R), normal inguinal (L), normal inguinal (R), normal other Jasmeet Reynoso DO Sep 22, 2018 14:51
[2018-09-22] MEDS ORDERED: Zoysn 3.37gm in NS 100ML IVPB SCH (15:00)
--- NOTE | 2018-09-22 15:21 | Infectious Diseases Prog Note ---
Assessment/Plan Assessment/Plan 62 yo male with PMHx of Quadriplegia with G-tube, HTN, DM and Schizophenia who was sent to the ED fromhis alf for AMS. Displaced GT with perforation -09/21 CT abd/p: The gastrostomy tube appears to be partially intraluminal and partially communicate with a large intramural collection involving mostly the inferior posterior wall of the stomach. There is some anterior wall pneumatosis. Contrast within the collection most likely represents instilled enteric contrast, but could also represent extravasated vascular contrast. There is evidence of rupture of this collection into the peritoneal space, with extravasated contrast in the left upper quadrant. There is anterior gastric wall intramural pneumatosis as well as a small amount of free extraluminal gas. Moderate ascites. Enhancement of much of the peritoneum raises concern for peritonitis. There may also be loculated intraperitoneal collections which could represent abscesses, predominantly adjacent to the tip of the right hepatic lobe, subcapsular in the spleen, and within the left upper quadrant. Thick-walled sigmoid colon, transverse colon and equivocally the proximal jejunum. Likely reactive related to the above, but could also indicate enteritis /colitis changes Leukocytosis, SP- in the setting of viseral peforation -09/20 ucx NTD; u/a neg -09/19 CXR: Bilateral pleural effusions and bibasilar atelectasis/airspace disease are stable. Low grade fever; improving Diarrhea- -Cdiff neg GIB Sepsis - Probably PNA , s/p Rx 09/22 CXR: Bilateral pleural effusions, basilar atelectatic changes, and interstitial congestive changes are stable CXR 09/07/18 - possible left sided consolidation Inf neg 09/07/18 BCx 2/2 sets diphteroids, 1/2 setse S. epi (contaminants); 09/11 Bcx NTD 09/07/18 SCx - NF 09/07/18 UCx - Neg 09/09 Cdiff neg HTN DM Schizophenia Quadriplegia. G- tube dependent Plan -Continue Zosyn #1 int he setting of stomach perforation and intraabdominal fluid collections -f/u Bcx x2, Urine Cx - 09/19/18 SP Zosyn #10 - 09/17/18 SP Vancmocyin #10 - 09/09/18 Ertapenem #3 - Monitor CBC and temps -Sx f/u -wound care We will continue to follow the patient during this hospitalization. Subjective Allergies: Coded Allergies: No Known Allergies (Unverified , 08/14/18) Subjective afebrile 24hrs leukocytosis resolved off pressors found to have displaced GT with perforation and was taken to OR today for Ex lap and Tracheostomy. Objective Vital Signs Last 24 Hour Vital Signs Date Time Temp Pulse Resp B/P (MAP) Pulse Ox O2 Delivery O2 Flow Rate FiO2 09/22/18 13:20 92 12 30 09/22/18 13:00 89 12 132/77 100 Mechanical Ventilator 30 09/22/18 12:00 98.1 90 11 137/77 100 Mechanical Ventilator 30 09/22/18 12:00 Mechanical Ventilator Mechanical Ventilator Mechanical Ventilator 09/22/18 12:00 30 09/22/18 11:06 96 12 30 09/22/18 11:00 81 14 138/79 100 Mechanical Ventilator 30 09/22/18 10:00 84 22 135/75 100 Mechanical Ventilator 30 09/22/18 09:00 87 18 141/80 100 Mechanical Ventilator 30 09/22/18 08:50 98 14 30 09/22/18 08:45 110 31 30 09/22/18 08:40 95 12 30 09/22/18 08:00 30 09/22/18 08:00 Mechanical Ventilator Mechanical Ventilator Mechanical Ventilator 09/22/18 08:00 98.5 98 26 144/85 100 Mechanical Ventilator 30 09/22/18 07:20 93 09/22/18 07:00 99.6 86 20 124/72 100 Mechanical Ventilator 30 09/22/18 06:56 87 12 30 09/22/18 06:00 87 21 129/78 100 Mechanical Ventilator 30 09/22/18 05:20 90 14 30 09/22/18 05:00 89 18 135/79 100 Mechanical Ventilator 30 09/22/18 04:00 30 09/22/18 04:00 95 09/22/18 04:00 Mechanical Ventilator Mechanical Ventilator 09/22/18 04:00 95 14 124/74 100 Mechanical Ventilator 30 09/22/18 03:12 99 13 30 09/22/18 03:00 97 16 121/77 100 Mechanical Ventilator 30 09/22/18 02:00 93 12 122/72 100 Mechanical Ventilator 30 09/22/18 01:00 99.4 106 15 108/65 100 Mechanical Ventilator 30 09/22/18 00:30 99 12 30 09/22/18 00:00 102 15 122/72 100 Mechanical Ventilator 30 09/22/18 00:00 99 09/22/18 00:00 Mechanical Ventilator Mechanical Ventilator 09/22/18 00:00 30 09/21/18 23:00 103 15 110/65 100 Mechanical Ventilator 30 09/21/18 22:45 109 13 30 09/21/18 22:00 110 15 102/63 100 Mechanical Ventilator 30 09/21/18 21:01 104 12 30 09/21/18 21:00 104 15 105/64 100 Mechanical Ventilator 30 09/21/18 20:38 116/70 09/21/18 20:00 30 09/21/18 20:00 114 09/21/18 20:00 Mechanical Ventilator Mechanical Ventilator 09/21/18 20:00 99.5 105 15 116/70 100 Mechanical Ventilator 30 09/21/18 19:01 115 14 30 09/21/18 19:00 115 15 115/68 100 Mechanical Ventilator 30 09/21/18 18:00 116 15 101/61 100 Mechanical Ventilator 30 09/21/18 17:05 120 13 30 09/21/18 17:00 120 11 133/68 100 Mechanical Ventilator 30 09/21/18 16:02 123 13 30 09/21/18 16:00 132 09/21/18 16:00 Mechanical Ventilator Mechanical Ventilator 09/21/18 16:00 30 09/21/18 16:00 100.1 120 13 99/59 100 Mechanical Ventilator 30 Height (Feet): 5 Height (Inches): 5.00 Weight (Pounds): 122 Objective Gen: NAD, On vent satting well 35% O2 HEENT: NCAT, MMM, EOMI LUNGS: CTAB, No W/C, CARDS: RRR, S1, S2, No M/R/G, ABD: Soft, NT, distended, + BS,G tube (No E/P) NEURO: Intubated, not following Microbiology Date/Time Source Procedure Growth Status 09/21/18 18:00 Stool Clostridium difficile Toxin Assay - Final Complete 09/21/18 18:00 Urine,Clean Catch Urine Culture - Preliminary Resulted 09/20/18 09:40 Indwelling Cath Urine Culture - Preliminary NO GROWTH AFTER 24 HOURS Resulted Laboratory Tests Test 09/21/18 18:00 09/22/18 06:00 Urine Color Pale yellow Urine Appearance Slightly cloudy Urine pH 5 (4.5-8.0) Urine Specific [place] 1.025 (1.005-1.035) Urine Protein 2+ (NEGATIVE) H Urine Glucose (UA) Negative (NEGATIVE) Urine Ketones Negative (NEGATIVE) Urine Blood Negative (NEGATIVE) Urine Nitrite Negative (NEGATIVE) Urine Bilirubin Negative (NEGATIVE) Urine Urobilinogen Normal MG/DL (0.0-1.0) Urine Leukocyte Esterase 1+ (NEGATIVE) H Urine RBC 0-2 /HPF (0 - 0) H Urine WBC 2-4 /HPF (0 - 0) Urine Squamous Epithelial Cells None /LPF (NONE/OCC) Urine Bacteria Few /HPF (NONE) Urine Yeast Few /HPF (NONE) H White Blood Count 6.8 K/UL (4.8-10.8) # Red Blood Count 3.09 M/UL (4.70-6.10) L Hemoglobin 9.2 G/DL (14.2-18.0) L Hematocrit 27.4 % (42.0-52.0) L Mean Corpuscular Volume 89 FL (80-99) Mean Corpuscular Hemoglobin 29.8 PG (27.0-31.0) Mean Corpuscular Hemoglobin Concent 33.6 G/DL (32.0-36.0) Red Cell Distribution Width 13.6 % (11.6-14.8) Platelet Count 417 K/UL (150-450) Mean Platelet Volume 5.1 FL (6.5-10.1) L Neutrophils (%) (Auto) 78.1 % (45.0-75.0) H Lymphocytes (%) (Auto) 12.5 % (20.0-45.0) L Monocytes (%) (Auto) 8.2 % (1.0-10.0) Eosinophils (%) (Auto) 0.4 % (0.0-3.0) Basophils (%) (Auto) 0.8 % (0.0-2.0) Sodium Level 149 MMOL/L (136-145) H Potassium Level 3.9 MMOL/L (3.5-5.1) Chloride Level 119 MMOL/L (98-107) H Carbon Dioxide Level 20 MMOL/L (21-32) L Anion Gap 10 mmol/L (5-15) Blood Urea Nitrogen 8 mg/dL (7-18) Creatinine 1.5 MG/DL (0.55-1.30) H Estimat Glomerular Filtration Rate 47.7 mL/min (>60) Glucose Level 96 MG/DL (74-106) Calcium Level 6.7 MG/DL (8.5-10.1) L Phosphorus Level 3.1 MG/DL (2.5-4.9) Magnesium Level 1.9 MG/DL (1.8-2.4) Total Bilirubin 0.3 MG/DL (0.2-1.0) Aspartate Amino Transf (AST/SGOT) 24 U/L (15-37) Alanine Aminotransferase (ALT/SGPT) 17 U/L (12-78) Alkaline Phosphatase 83 U/L (46-116) Total Protein 5.0 G/DL (6.4-8.2) L Albumin 1.2 G/DL (3.4-5.0) L Globulin 3.8 g/dL Albumin/Globulin Ratio 0.3 (1.0-2.7) L Current Medications Medications (Trade) Dose Ordered Sig/Julito Route PRN Reason Start Time Stop Time Status Last Admin Dose Admin Acetaminophen (Tylenol) 650 mg Q4H PRN NG Mild Pain/Temp > 100.5 09/08/18 13:30 10/08/18 13:29 09/21/18 04:52 Chlorhexidine Gluconate (Camila-Hex 2%) 1 applic DAILY@2000 TOPIC 09/15/18 20:00 10/15/18 19:59 09/21/18 20:36 Dextrose (Dextrose 50%) 25 ml Q30M PRN IV Hypoglycemia 09/08/18 13:30 10/08/18 13:29 Dextrose (Dextrose 50%) 50 ml Q30M PRN IV Hypoglycemia 09/08/18 13:30 10/08/18 13:29 09/17/18 00:30 Dextrose/Sodium Chloride 1,000 ml @ 50 mls/hr Q20H IV 09/13/18 13:45 10/13/18 13:44 09/21/18 20:38 Heparin Sodium (Porcine) (Heparin 5000 units/ml) 5,000 units EVERY 12 HOURS SUBQ 09/07/18 21:00 10/07/18 20:59 09/20/18 20:46 Insulin Aspart (NovoLOG) Q6HR SUBQ 09/17/18 18:00 10/08/18 14:29 09/22/18 11:59 Iopamidol (Isovue-300 100ml) 100 ml NOW PRN INJ Radiology Procedure 09/21/18 12:00 09/23/18 11:59 Loperamide HCl (Imodium) 4 mg TIDPRN PRN ORAL Diarrhea 09/10/18 13:00 10/10/18 12:59 09/11/18 03:51 Midodrine (Pro-Amatine) 2.5 mg THREE TIMES A DAY GT 09/13/18 18:00 10/13/18 17:59 09/21/18 09:29 Norepinephrine Bitartrate 8 mg/ Dextrose 558 ml @ 0 mls/hr Q24H IV 09/08/18 21:00 10/08/18 20:59 09/10/18 18:37 Ondansetron HCl (Zofran) 4 mg Q6H PRN IVP Nausea & Vomiting 09/07/18 15:15 10/07/18 15:14 Pantoprazole (Protonix) 40 mg Q12HR IVP 09/07/18 21:00 10/08/18 08:59 09/22/18 09:12 Piperacillin Sod/ Tazobactam Sod 3.375 gm/Sodium Chloride 110 ml @ 200 mls/hr ONCE IVPB 09/22/18 15:00 09/22/18 17:00 Polyethylene Glycol (Miralax) 17 gm DAILYPRN PRN ORAL Constipation 09/07/18 15:15 10/07/18 15:14 Risperidone (RisperDAL) 0.25 mg QHS ORAL 09/10/18 21:00 10/10/18 20:59 09/20/18 20:45 Sodium Chloride 500 ml @ 999 mls/hr Q31M PRN IV SBP<90mmHg 09/08/18 11:00 10/08/18 10:59 09/08/18 12:34 Kell Larkin M.D. Sep 22, 2018 15:21
[2018-09-22] MEDS ORDERED: Morphine Sulfate 10mg/ml Inj ONE (15:27)
[2018-09-22] MEDS ORDERED: Sodium Chloride 10ml vial INJ ONE (15:28)
--- NOTE | 2018-09-22 15:32 | GI Progress Note ---
Assessment/Plan Problems: (1) G tube feedings ICD Codes: Z93.1 - Gastrostomy status SNOMED: 397338798, 324827815 (2) Protein-calorie malnutrition, severe ICD Codes: E43 - Unspecified severe protein-calorie malnutrition SNOMED: 383621547 (3) Anemia ICD Codes: D64.9 - Anemia, unspecified SNOMED: 427546030 (4) GI bleed ICD Codes: K92.2 - Gastrointestinal hemorrhage, unspecified SNOMED: 83197975 Status: unchanged Status Narrative Discussed with Dr. Horton. Assessment/Plan cdiff negative OB stool negative excessive bleeding/leakage from GT site, no active bleed after endoscopy >> stat CT ordered patient scheduled for Ex Lap today for GT site bleed SUMMARY OF FINDINGS: 1. Distal esophagitis. 2. Malposition of G-tube replaced with a 20-Polish pull type of G-tube successfully. RECOMMENDATIONS: fu surgical recommendations prn transfusion ppi GT site care daily/prn fu labs The patient was seen and examined at bedside and all new and available data was reviewed in the patients chart. I agree with the above findings, impression and plan. (Patient seen earlier today. Signature stamp does not reflect patient encounter time.). - Arthur Horton MD Subjective Subjective limited Objective Last 24 Hour Vital Signs Date Time Temp Pulse Resp B/P (MAP) Pulse Ox O2 Delivery O2 Flow Rate FiO2 09/22/18 14:00 105 26 154/81 99 Mechanical Ventilator 30 09/22/18 13:20 92 12 30 09/22/18 13:00 89 12 132/77 100 Mechanical Ventilator 30 09/22/18 12:00 98.1 90 11 137/77 100 Mechanical Ventilator 30 09/22/18 12:00 Mechanical Ventilator Mechanical Ventilator Mechanical Ventilator 09/22/18 12:00 30 09/22/18 11:06 96 12 30 09/22/18 11:00 81 14 138/79 100 Mechanical Ventilator 30 09/22/18 10:00 84 22 135/75 100 Mechanical Ventilator 30 09/22/18 09:00 87 18 141/80 100 Mechanical Ventilator 30 09/22/18 08:50 98 14 30 09/22/18 08:45 110 31 30 09/22/18 08:40 95 12 30 09/22/18 08:00 30 09/22/18 08:00 Mechanical Ventilator Mechanical Ventilator Mechanical Ventilator 09/22/18 08:00 98.5 98 26 144/85 100 Mechanical Ventilator 30 09/22/18 07:20 93 09/22/18 07:00 99.6 86 20 124/72 100 Mechanical Ventilator 30 09/22/18 06:56 87 12 30 09/22/18 06:00 87 21 129/78 100 Mechanical Ventilator 30 09/22/18 05:20 90 14 30 09/22/18 05:00 89 18 135/79 100 Mechanical Ventilator 30 09/22/18 04:00 30 09/22/18 04:00 95 09/22/18 04:00 Mechanical Ventilator Mechanical Ventilator 09/22/18 04:00 95 14 124/74 100 Mechanical Ventilator 30 09/22/18 03:12 99 13 30 09/22/18 03:00 97 16 121/77 100 Mechanical Ventilator 30 09/22/18 02:00 93 12 122/72 100 Mechanical Ventilator 30 09/22/18 01:00 99.4 106 15 108/65 100 Mechanical Ventilator 30 09/22/18 00:30 99 12 30 09/22/18 00:00 102 15 122/72 100 Mechanical Ventilator 30 09/22/18 00:00 99 09/22/18 00:00 Mechanical Ventilator Mechanical Ventilator 09/22/18 00:00 30 09/21/18 23:00 103 15 110/65 100 Mechanical Ventilator 30 09/21/18 22:45 109 13 30 09/21/18 22:00 110 15 102/63 100 Mechanical Ventilator 30 09/21/18 21:01 104 12 30 09/21/18 21:00 104 15 105/64 100 Mechanical Ventilator 30 09/21/18 20:38 116/70 09/21/18 20:00 30 09/21/18 20:00 114 09/21/18 20:00 Mechanical Ventilator Mechanical Ventilator 09/21/18 20:00 99.5 105 15 116/70 100 Mechanical Ventilator 30 09/21/18 19:01 115 14 30 09/21/18 19:00 115 15 115/68 100 Mechanical Ventilator 30 09/21/18 18:00 116 15 101/61 100 Mechanical Ventilator 30 09/21/18 17:05 120 13 30 09/21/18 17:00 120 11 133/68 100 Mechanical Ventilator 30 09/21/18 16:02 123 13 30 09/21/18 16:00 132 09/21/18 16:00 Mechanical Ventilator Mechanical Ventilator 09/21/18 16:00 30 09/21/18 16:00 100.1 120 13 99/59 100 Mechanical Ventilator 30 Intake and Output 09/21/18 09/22/18 18:59 06:59 Intake Total 1025 ml 1250 ml Output Total 650 ml 480 ml Balance 375 ml 770 ml Intake Free Water 40 ml 275 ml IV Total 700 ml 700 ml Tube Feeding 0 ml 0 ml Blood Product 275 ml Other 285 ml Output Urine Total 450 ml 480 ml Stool Total 200 ml Laboratory Tests Test 09/21/18 18:00 09/22/18 06:00 Urine Color Pale yellow Urine Appearance Slightly cloudy Urine pH 5 (4.5-8.0) Urine Specific Wade 1.025 (1.005-1.035) Urine Protein 2+ (NEGATIVE) H Urine Glucose (UA) Negative (NEGATIVE) Urine Ketones Negative (NEGATIVE) Urine Blood Negative (NEGATIVE) Urine Nitrite Negative (NEGATIVE) Urine Bilirubin Negative (NEGATIVE) Urine Urobilinogen Normal MG/DL (0.0-1.0) Urine Leukocyte Esterase 1+ (NEGATIVE) H Urine RBC 0-2 /HPF (0 - 0) H Urine WBC 2-4 /HPF (0 - 0) Urine Squamous Epithelial Cells None /LPF (NONE/OCC) Urine Bacteria Few /HPF (NONE) Urine Yeast Few /HPF (NONE) H White Blood Count 6.8 K/UL (4.8-10.8) # Red Blood Count 3.09 M/UL (4.70-6.10) L Hemoglobin 9.2 G/DL (14.2-18.0) L Hematocrit 27.4 % (42.0-52.0) L Mean Corpuscular Volume 89 FL (80-99) Mean Corpuscular Hemoglobin 29.8 PG (27.0-31.0) Mean Corpuscular Hemoglobin Concent 33.6 G/DL (32.0-36.0) Red Cell Distribution Width 13.6 % (11.6-14.8) Platelet Count 417 K/UL (150-450) Mean Platelet Volume 5.1 FL (6.5-10.1) L Neutrophils (%) (Auto) 78.1 % (45.0-75.0) H Lymphocytes (%) (Auto) 12.5 % (20.0-45.0) L Monocytes (%) (Auto) 8.2 % (1.0-10.0) Eosinophils (%) (Auto) 0.4 % (0.0-3.0) Basophils (%) (Auto) 0.8 % (0.0-2.0) Sodium Level 149 MMOL/L (136-145) H Potassium Level 3.9 MMOL/L (3.5-5.1) Chloride Level 119 MMOL/L (98-107) H Carbon Dioxide Level 20 MMOL/L (21-32) L Anion Gap 10 mmol/L (5-15) Blood Urea Nitrogen 8 mg/dL (7-18) Creatinine 1.5 MG/DL (0.55-1.30) H Estimat Glomerular Filtration Rate 47.7 mL/min (>60) Glucose Level 96 MG/DL (74-106) Calcium Level 6.7 MG/DL (8.5-10.1) L Phosphorus Level 3.1 MG/DL (2.5-4.9) Magnesium Level 1.9 MG/DL (1.8-2.4) Total Bilirubin 0.3 MG/DL (0.2-1.0) Aspartate Amino Transf (AST/SGOT) 24 U/L (15-37) Alanine Aminotransferase (ALT/SGPT) 17 U/L (12-78) Alkaline Phosphatase 83 U/L (46-116) Total Protein 5.0 G/DL (6.4-8.2) L Albumin 1.2 G/DL (3.4-5.0) L Globulin 3.8 g/dL Albumin/Globulin Ratio 0.3 (1.0-2.7) L Microbiology Date/Time Source Procedure Growth Status 09/21/18 18:00 Stool Clostridium difficile Toxin Assay - Final Complete 09/21/18 18:00 Urine,Clean Catch Urine Culture - Preliminary Resulted Height (Feet): 5 Height (Inches): 5.00 Weight (Pounds): 122 General Appearance: alert, thin Respiratory/Chest: other - intubated Abdominal Exam: GT site - GT sitebleed Becki Holt NP Sep 22, 2018 15:32
--- NOTE | 2018-09-22 16:55 | Consultation ---
Consult Note Assessment/Plan Bioethics note: The Bioethics committee met today regarding this patient. We discussed the case with the socially responsible investment adviser, Dr. Lynne, and Dr. Li. The patient is non-represented, and is non-verbal. There is no advanced directive. The patient currently is in the ICU and has a malfunctioning G-tube resulting in peritonitis, an abdominal wall hematoma, and respiratory failure. He needs a laparotomy and tracheostomy soon, without this surgery he will . The Committee concurs with the management recommended by the treating physicians. We remain available for further consultation. Marvin Brown MD Sep 22, 2018 16:55
--- NOTE | 2018-09-22 17:52 | Brief Operative Note ---
Immediate Post Operative Note Operative Note Pre-op Diagnosis: 1. malpositioned feeding tube with leak and peritonitis/perforation 2. respiratory insufficiency requiring prolonged ventilatory support Procedure: 1. exploratory laparotomy 2. repair of gastric perforation 3. evacuation of abdominal omental hematoma 4. evacuation of perisplenic abscess 5. omentectomy 6. splenectomy 7. abdominal washout 8. tracheostomy Post-op Diagnosis: 1. large omental perigastric hematoma 2. malpositioned PEG tube with gastric perforation 3. large perisplenic abscess 4. abdominal peritonitis 5. respiratory insufficiency requiring prolonged ventilatory support Surgeon: singh Anesthesiologist: melanie Anesthesia: general Specimen: yes - 1. omentum 2. spleen Complications: none Condition: unstable Fluids: see records Estimated Blood Loss: volume - 2580 Drains: ELISABET Implant(s) used?: No Isreal Lynne Sep 22, 2018 17:52
[2018-09-22] MEDS: D5NS 1,000 ML IV SCH ×2 (18:00→21:25)
[2018-09-22] MEDS: Norepinephrine Bitartrate 8 MG in D5W 500ml 550 ML IV SCH (18:40)
--- NOTE | 2018-09-22 20:00 | Progress Note ---
DATE: 09/22/2018 SUBJECTIVE: This is a 62-year-old male patient with septic shock. The patient had some altered mental status and confusion. His cognition has declined below his baseline. That is why, his attending has requested daily psychiatric consultation. DIAGNOSIS: Paranoid schizophrenia. PLAN: Treat him with Risperdal 0.25 mg daily and will continue to be followed by Psychiatry to prevent any further decline in his cognition. Chart reviewed and discussed with staff. Virgie Mcdermott M.D. DR: LUCIAN JOB#: [id number] CC:
[2018-09-22] MEDS: Dyna-Hex 2% Top Sol 2oz TOPIC SCH (21:19)
--- NOTE | 2018-09-22 21:30 | Operative Note - Dictated ---
DATE OF OPERATION: 09/22/2018 PREOPERATIVE DIAGNOSES: 1. Malpositioned feeding tube with leak and peritonitis/perforation. 2. Respiratory insufficiency requiring prolonged ventilatory support. POSTOPERATIVE DIAGNOSES: 1. Large omental perigastric hematoma. 2. Malpositioned PEG tube with gastric perforation. 3. Large perisplenic abscess. 4. Abdominal peritonitis. 5. Respiratory insufficiency requiring prolonged ventilatory support. OPERATION PERFORMED: 1. Exploratory laparotomy. 2. Repair of gastric perforation. 3. Evacuation of abdominal omental / lesser sac hematoma. 4. Evacuation of perisplenic hematoma/abscess. 5. Omentectomy. 6. Splenectomy. 7. Abdominal washout. 8. Tracheostomy. ATTENDING SURGEON: Isreal Lynne M.D. WORKERS COMPENSATION ADJUSTER: None. ANESTHESIOLOGIST: Lei Mulligan M.D. 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 SPECIMENS: 1. Omentum. 2. Spleen. COMPLICATIONS: Splenic hemorrhage. CONDITION: Unstable. FLUIDS: Please see anesthesia records. DRAINS: ELISABET x2. ESTIMATED BLOOD LOSS: 200 mL. WOUND CLASSIFICATION: Class IV. COUNTS: Sponge and needle count correct x2. ANTIBIOTICS: The patient given Zosyn IV. INDICATIONS FOR PROCEDURE: This is a 62-year-old male, who initially presented in septic shock requiring intensive care / critical care with active resuscitation, who had respiratory insufficiency requiring intubation and has since made significant recovery in the past 2 weeks. The patient had a change of his PEG tube recently and since has had a drop in his hemoglobin as well as leakage around the PEG tube. A CT scan was performed to evaluate, which identified a large perigastric or a gastric wall hematoma, malpositioned G-tube with leakage of contrast into the gastric lumen as well as the peritoneum, significant abdominal fluid collections, peritonitis. Furthermore, prior to this, the patient was planned for tracheostomy given respiratory insufficiency with requirement of prolonged ventilatory support given that he was not able to wean off the ventilator. With above, open gastric perforation with leakage of bowel contents and peritonitis is not compatible with life and therefore surgery was the only potential option if continuing care. Given the patient's condition, a multidisciplinary discussion was had along with bioethics and staff for direction of the patient's care. The patient is full code and does not have surrogate and is not represented at this time. The patient despite having significant episode of sepsis had recovered and was doing well until recent complication. Given this, the patient's only option for potential survivability would be surgery, which did come with significant morbidity and mortality. His morbidity and mortality is less than the mortality if no surgery is planned. After discussion with teams and medical staff, the decision was made to proceed with surgery. Medical necessity for procedure noted given the above. OPERATIVE NOTE: The patient was taken to the operating room and placed on the operating table in supine position with bilateral arms tucked. All bony prominences were well padded. Silva catheter was already in place prior to entering the operating room. General anesthesia. Preoperative time-out was taken identifying the patient, procedure, operative staff, and surgical staff. The patient already had ET tube prior. General anesthesia was induced. The abdomen was clipped, prepped, and draped in standard surgical fashion. A midline laparotomy incision was made using a fresh #10 scalpel and carried down to subcutaneous tissue and fascia using electrocautery. Entry into the abdomen was obtained without complication. Upon initially entering the abdomen, ascites was evacuated. The abdomen was then explored in all 4 quadrants and the pelvis. There were significant loculations of fluid in all 4 quadrants and the pelvis. There were inflammatory changes throughout the peritoneum indicative of abdominal peritonitis. In the right upper quadrant, the liver was otherwise healthy with loculations around it, which were evacuated. In the right lower quadrant, the cecum and ascending colon were otherwise inflammatory peritoneal changes, but stable. In the pelvis, there was significant exudate and fluid, which were evacuated. There was a small serosal tear in the distal sigmoid colon, which was repaired with 3-0 silk Vicryl pop-off sutures. In the left lower quadrant, there was inflammation of the sigmoid given the peritonitis, but otherwise stable. The small bowel was run from the ligament of Treitz to the ileocecal valve with only inflammatory changes from peritonitis. In the left upper quadrant, there was significant inflammation and mass effect from the large hematoma. The omentum was very thickened and inflamed. At this time, the G-tube was identified and followed and identified to be going through the omentum into the gastric lumen directly at the greater curvature gastrocolic ligament where blood supply entered into gastric wall. active bleeding was identified around the omental gastric portion. Hemostasis was obtained with 3-0 silk [id number] pop-off. The gastric tube was then removed and released and taken off the operative field. The thickened undefined gastrocolic ligament was slowly dissected out and the transverse colon mobilized inferiorly. There was a large hematoma identified and upon further evaluation, it was not intraluminal gastric, but in the lesser sac. This was evacuated identifying a hematoma with abscess and a significant large perisplenic abscess/blood. To further better visualization, the thickened omentum was dissected out. Omentectomy was performed. Following this, the lesser sac hematoma that came from the omental and gastric bleeding was evacuated and attempts were made to evacuate the perisplenic abscess. There was significant inflammatory tissue and upon mobilizing the omentum, there was bleeding identified from the short gastrics requiring mobilization of the spleen, which then led to a splenic hilum hemorrhage. At this time, decision was made, given the bleeding of the splenic hilum, that salvage of spleen was not possible and including the significant inflammatory and abscess process in left upper quadrant, splenectomy was necessary. The splenic hilum was dissected out and clamped with a right angle clamp and the spleen was ligated and divided and sent off the operative field. A #0 [id number] Vicryl silks were used for hemostasis from the splenic pedicle. Once this was complete, the remainder of the blood and abscess cavity in the left upper quadrant were evacuated and none of the omentum and spleen abscess hematoma were all evacuated. The abdomen was irrigated with copious amounts of warm normal saline until clear. The abdomen was reinspected in all quadrants and at this time significantly improved. The attention was turned to the gastric perforation, which was thought 2.5 cm in size. An attempt for gastric repair. Decision was made to proceed with a 2 layered hand-sewn repair. The edges of the gastric perforation were cleaned and freshened and the gastric perforation was closed using two-layer fashion beginning with a 2-0 Vicryl reapproximation layer followed by a 3-0 silk Lembert interrupted second layer. At this time, an NG tube was placed and identified within the gastric lumen. The abdomen was then re-irrigated and suctioned in all 4 quadrants in the pelvis until clear. Hemostasis was noted, and at this time, decision made not to place a G-tube given the patient's poor nutritional status, prior perforation, and significant events that he has been through. At this time, the fascia was reapproximated using #0 running looped PDS suture. The skin incision was left open and dressed with gauze packing and dressings. Prior to end of the conclusion of the procedure, a 19-[place] ELISABET drain was placed and positioned in the left upper quadrant, was placed through the left mid abdomen and positioned in the left upper quadrant and the second was placed through the right mid abdomen and positioned in the pelvis. Both drains were tethered to the skin using 2-0 nylon sutures followed by placed to bulb suction at the end of the procedure. Once dressings were applied, the neck was hyperextended and shoulder roll was placed. The neck was prepped and draped in standard surgical fashion. Anatomy was identified and a skin incision was made approximately 2 fingerbreadths above the sternal notch after local anesthetic was infiltrated. Incision was carried down through the subcutaneous tissue, platysma until the median raphe was identified and divided. Once the strap tissues were divided and the tracheal cartilage was identified, tracheal hook placed. The first and second tracheal rings were clearly identified and a window was made in the second tracheal ring for trach placement. Once a window was made, the ET tube was identified and with the help of the anesthesiologist slowly withdrawn. Once the ET tube was above the superior aspect of the window, an 8-[place] Shiley tracheostomy was inserted under direct visualization without complication. The tracheal balloon was insufflated and cannula inserted. The patient was ventilated through the tracheostomy with good tidal volumes and end-tidal CO2. The skin incision was reapproximated using 4-0 Monocryl interrupted sutures. A trach tie was placed followed by dressings. At this time, the patient tolerated the procedure well. Throughout the procedure, the patient was given 2 units PRBC fluids and had requirement for pressors. The patient was taken directly to the intensive care unit. Isreal Lynne M.D. DR: ZOHRA JOB#: [id number] CC: LILIANA
[2018-09-22] MEDS: Piperacillin/Tazobactam 3.375 GM in NS 110 ML IVPB SCH (21:48)
[2018-09-22] MEDS ORDERED: Piperacillin/Tazobactam 3.375 GM in D5W 110 ML IVPB SCH (22:00)
[2018-09-22] MEDS: Acetaminophen 650mg/20.3ml NG PRN (23:44)
[2018-09-23] VITALS (49 sets, daily range): BP systolic 67–151; BP diastolic 46–78
[2018-09-23] MEDS: NovoLOG Insulin Flexpen SUBQ SCH ×4 (00:40→18:00)
[2018-09-23] MEDS: Norepinephrine Bitartrate 8 MG in D5W 500ml 550 ML IV SCH ×2 (02:55→18:46)
[2018-09-23 06:23] LABS: ALANINE AMINOTRANSFERASE 18 U/L (12-78); ALBUMIN 0.9 G/DL (3.4-5.0); ALBUMIN/GLOBULIN RATIO 0.3 (1.0-2.7); ALKALINE PHOSPHATASE 60 U/L (46-116); ANION GAP 12 mmol/L (5-15); ASPARTATE AMINO TRANSFERASE 32 U/L (15-37); BILIRUBIN,TOTAL 0.4 MG/DL (0.2-1.0); BLOOD UREA NITROGEN 12 mg/dL (7-18); CALCIUM 6.1 MG/DL (8.5-10.1); CARBON DIOXIDE 15 MMOL/L (21-32); CHLORIDE 119 MMOL/L (98-107); CREATININE 2.4 MG/DL (0.55-1.30); POTASSIUM 4.3 MMOL/L (3.5-5.1); SODIUM 146 MMOL/L (136-145)
[2018-09-23] MEDS: Piperacillin/Tazobactam 3.375 GM in NS 110 ML IVPB SCH ×3 (06:36→21:38)
[2018-09-23] MEDS: Heparin 5000 units/ml inj SUBQ SCH ×2 (09:00→21:05)
[2018-09-23] MEDS: Pantoprazole Inj IVP SCH ×2 (09:39→21:02)
--- NOTE | 2018-09-23 10:31 | 48 Hour Post Anesthesia Eval ---
Post Anesthesia Evaluation Procedure: Trach, Exp Lap Date of Evaluation: Sep 23, 2018 Time of Evaluation: 10:30 Blood Pressure Systolic: 84 0: 67 Pulse Rate: 115 Respiratory Rate: 14 - Mech Vent Temperature (Fahrenheit): 98.2 O2 Sat by Pulse Oximetry: 100 Airway: patent Nausea: No Vomiting: No Pain Intensity: 0 Hydration Status: adequate Cardiopulmonary Status: Stable Mental Status/LOC: patient returned to baseline Follow-up Care/Observations: 0 Post-Anesthesia Complications: 0 Follow-up care needed: N/A Don Fernandez MD Sep 23, 2018 10:31
[2018-09-23 10:51] LABS: HEMATOCRIT 31.2 % (42.0-52.0); HEMOGLOBIN 10.1 G/DL (14.2-18.0); MEAN CORPUSCULAR VOLUME 90 FL (80-99); PLATELET COUNT 396 K/UL (150-450); RED BLOOD COUNT 3.45 M/UL (4.70-6.10); RED CELL DISTRIBUTION WIDTH 13.9 % (11.6-14.8); WHITE BLOOD COUNT 31.8 K/UL (4.8-10.8)
--- NOTE | 2018-09-23 10:54 | Pulmonolgy Critical Care Note ---
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, cardio, renal Discussed with: nurses, consultants, case finishersolar manager - Objective Last 24 Hour Vital Signs Date Time Temp Pulse Resp B/P (MAP) Pulse Ox O2 Delivery O2 Flow Rate FiO2 09/23/18 10:31 115 14 100 09/23/18 08:40 115 14 30 09/23/18 08:30 Mechanical Ventilator Mechanical Ventilator Mechanical Ventilator 09/23/18 08:00 30 09/23/18 08:00 Mechanical Ventilator Mechanical Ventilator Mechanical Ventilator 09/23/18 07:18 113 15 30 09/23/18 07:00 94/67 09/23/18 07:00 98.2 115 15 94/67 100 Mechanical Ventilator 30 09/23/18 06:30 114 15 101/71 100 Mechanical Ventilator 30 09/23/18 06:00 107/71 09/23/18 06:00 110 15 107/71 100 Mechanical Ventilator 30 09/23/18 05:30 110 15 95/67 100 Mechanical Ventilator 30 09/23/18 05:30 116/67 09/23/18 05:22 112 18 30 09/23/18 05:00 110 15 103/64 100 Mechanical Ventilator 30 09/23/18 05:00 103/64 09/23/18 04:30 114 16 93/68 100 Mechanical Ventilator 30 09/23/18 04:00 114 15 99/66 100 Mechanical Ventilator 30 09/23/18 04:00 30 09/23/18 04:00 112 09/23/18 04:00 99/66 09/23/18 04:00 Mechanical Ventilator Mechanical Ventilator Mechanical Ventilator 09/23/18 03:30 113 15 94/67 100 Mechanical Ventilator 30 09/23/18 03:30 104/67 09/23/18 03:20 124 15 30 09/23/18 03:00 94/67 09/23/18 03:00 117 15 98/69 100 Mechanical Ventilator 30 09/23/18 02:55 95/72 09/23/18 02:45 119 15 95/71 100 Mechanical Ventilator 30 09/23/18 02:30 121 15 95/72 100 Mechanical Ventilator 30 09/23/18 02:15 122 16 86/65 100 Mechanical Ventilator 30 09/23/18 02:00 124 17 85/66 100 Mechanical Ventilator 30 09/23/18 02:00 85/66 09/23/18 01:45 129 15 90/59 100 Mechanical Ventilator 30 09/23/18 01:30 130 16 87/63 100 Mechanical Ventilator 30 09/23/18 01:15 131 13 30 09/23/18 01:15 131 15 85/57 100 Mechanical Ventilator 30 09/23/18 01:00 131 12 80/50 100 Mechanical Ventilator 30 09/23/18 01:00 79/48 09/23/18 00:52 99.9 09/23/18 00:45 133 12 79/48 100 Mechanical Ventilator 30 09/23/18 00:30 136 12 79/50 100 Mechanical Ventilator 30 09/23/18 00:15 138 12 73/46 100 Mechanical Ventilator 30 09/23/18 00:00 99.8 141 12 67/49 100 Mechanical Ventilator 30 09/23/18 00:00 79/50 09/23/18 00:00 143 09/23/18 00:00 30 09/23/18 00:00 Mechanical Ventilator Mechanical Ventilator Mechanical Ventilator 09/22/18 23:45 144 12 77/51 100 Mechanical Ventilator 30 09/22/18 23:30 100.5 144 17 80/54 100 Mechanical Ventilator 30 09/22/18 23:15 144 17 79/55 100 Mechanical Ventilator 30 09/22/18 23:01 143 12 30 09/22/18 23:00 78/52 09/22/18 23:00 145 17 80/54 100 Mechanical Ventilator 30 09/22/18 22:45 143 17 78/52 100 Mechanical Ventilator 30 09/22/18 22:30 143 17 79/54 100 Mechanical Ventilator 30 09/22/18 22:15 143 17 83/51 100 Mechanical Ventilator 30 09/22/18 22:00 79/49 09/22/18 22:00 143 17 80/66 100 Mechanical Ventilator 30 09/22/18 21:45 144 17 79/49 100 Mechanical Ventilator 30 09/22/18 21:30 145 17 77/53 100 Mechanical Ventilator 30 09/22/18 21:15 123 12 30 09/22/18 21:15 143 17 80/49 100 Mechanical Ventilator 30 09/22/18 21:00 82/56 09/22/18 21:00 143 17 81/55 100 Mechanical Ventilator 30 09/22/18 20:45 141 17 82/56 100 Mechanical Ventilator 30 09/22/18 20:30 141 17 78/56 100 Mechanical Ventilator 30 09/22/18 20:15 140 17 80/57 100 Mechanical Ventilator 30 09/22/18 20:00 139 09/22/18 20:00 141 17 78/57 100 Mechanical Ventilator 30 09/22/18 20:00 82/58 09/22/18 20:00 Mechanical Ventilator Mechanical Ventilator Mechanical Ventilator 09/22/18 20:00 140 17 79/56 100 Mechanical Ventilator 30 09/22/18 20:00 30 09/22/18 19:45 139 17 82/58 100 Mechanical Ventilator 30 09/22/18 19:30 75/55 09/22/18 19:30 139 17 75/55 100 Mechanical Ventilator 30 09/22/18 19:15 99.1 139 17 76/55 100 Mechanical Ventilator 30 09/22/18 19:05 133 12 30 09/22/18 19:00 135 17 76/55 100 Mechanical Ventilator 30 09/22/18 18:45 131 19 79/61 100 Mechanical Ventilator 30 09/22/18 18:40 75/55 09/22/18 18:30 131 16 79/45 100 Mechanical Ventilator 30 09/22/18 18:15 97.5 130 18 84/51 100 Mechanical Ventilator 30 09/22/18 18:00 Mechanical Ventilator Mechanical Ventilator Mechanical Ventilator 09/22/18 18:00 30 09/22/18 18:00 Mechanical Ventilator Mechanical Ventilator Mechanical Ventilator 09/22/18 14:00 105 26 154/81 99 Mechanical Ventilator 30 09/22/18 13:20 92 12 30 09/22/18 13:00 89 12 132/77 100 Mechanical Ventilator 30 09/22/18 12:00 98.1 90 11 137/77 100 Mechanical Ventilator 30 09/22/18 12:00 90 09/22/18 12:00 Mechanical Ventilator Mechanical Ventilator Mechanical Ventilator 09/22/18 12:00 30 09/22/18 11:06 96 12 30 09/22/18 11:00 81 14 138/79 100 Mechanical Ventilator 30 Status: awake Condition: critical HEENT: atraumatic Heart: HR/BP stable Abdomen: soft, active bowel sounds Extremities: no C/C/E Decubiti: location Micro: Microbiology Date/Time Source Procedure Growth Status 09/21/18 17:10 Blood Blood Culture - Preliminary NO GROWTH AFTER 24 HOURS Resulted 09/21/18 13:30 Blood Blood Culture - Preliminary NO GROWTH AFTER 24 HOURS Resulted 09/21/18 18:00 Stool Clostridium difficile Toxin Assay - Final Complete 09/21/18 18:00 Urine,Clean Catch Urine Culture - Preliminary YEAST Resulted Accucheck: 214 Critical Care - Subjective ROS Limited/Unobtainable: Yes Interval Events: had laparotomy and evacuation of hematoma and perisplenic abscess. and tracheostomy. Condition: critical EKG Rhythm: Sinus Rhythm FI02: 30 Vent Support Breath Rate: 12 Vent Support Mode: AC Vent Tidal Volume: 600 Sputum Amount: Small PEEP: 0.0 PIP: 39 Tube Feeding Amount: 0 I&O: Intake and Output 09/22/18 09/23/18 19:00 07:00 Intake Total 400 ml 1445.920 ml Output Total 700 ml 220 ml Balance -300 ml 1225.920 ml IV Total 400 ml 1445.920 ml Output Urine Total 620 ml 20 ml Drainage Total 80 ml 200 ml CXR: bilateral effusion, ET in good position Labs: Laboratory Tests Test 09/23/18 04:30 09/23/18 10:30 Sodium Level 146 MMOL/L (136-145) H Potassium Level 4.3 MMOL/L (3.5-5.1) Chloride Level 119 MMOL/L (98-107) H Carbon Dioxide Level 15 MMOL/L (21-32) L Anion Gap 12 mmol/L (5-15) Blood Urea Nitrogen 12 mg/dL (7-18) Creatinine 2.4 MG/DL (0.55-1.30) #H Estimat Glomerular Filtration Rate 27.8 mL/min (>60) Glucose Level 214 MG/DL (74-106) #H Calcium Level 6.1 MG/DL (8.5-10.1) L Total Bilirubin 0.4 MG/DL (0.2-1.0) Aspartate Amino Transf (AST/SGOT) 32 U/L (15-37) Alanine Aminotransferase (ALT/SGPT) 18 U/L (12-78) Alkaline Phosphatase 60 U/L (46-116) Total Protein 3.8 G/DL (6.4-8.2) L Albumin 0.9 G/DL (3.4-5.0) L Globulin 2.9 g/dL Albumin/Globulin Ratio 0.3 (1.0-2.7) L White Blood Count Pending Red Blood Count Pending Hemoglobin Pending Hematocrit Pending Mean Corpuscular Volume Pending Mean Corpuscular Hemoglobin Pending Mean Corpuscular Hemoglobin Concent Pending Red Cell Distribution Width Pending Platelet Count Pending Mean Platelet Volume Pending Neutrophils (%) (Auto) Pending Lymphocytes (%) (Auto) Pending Monocytes (%) (Auto) Pending Eosinophils (%) (Auto) Pending Basophils (%) (Auto) Pending Po Li MD Sep 23, 2018 10:54
--- NOTE | 2018-09-23 12:19 | Nephrology Progress Note ---
Assessment/Plan Problem List: (1) ATN (acute tubular necrosis) Assessment: Cr rising post op (2) Septic shock (3) Lactic acid acidosis (4) Metabolic acidosis (5) Hyperkalemia (6) G tube feedings (7) Acute respiratory failure Assessment post op 09/22/18: Trach, Splenectomy, Perf.... over all improved: cr rising again presented with Shock , likely septic Acute renal failure resolved Acute metabolic acidosis resolved Hyperkalemia PEG Recent Pneumonia Plan plan: now trached 09/22 post laparatomy 09/22 on pressors pulmonary support Fluid challenge as needed Silva K and Phos and Mag supplement as needed antibiotics monitor renal parameters and ABG poor prognosis Subjective ROS Limited/Unobtainable: Yes Objective Objective Last 24 Hour Vital Signs Date Time Temp Pulse Resp B/P (MAP) Pulse Ox O2 Delivery O2 Flow Rate FiO2 09/23/18 11:30 106 18 111/66 100 Mechanical Ventilator 30 09/23/18 11:05 113 14 30 09/23/18 11:00 102/59 09/23/18 11:00 110 17 102/59 100 Mechanical Ventilator 30 09/23/18 10:31 115 14 100 09/23/18 10:30 117 15 77/51 100 Mechanical Ventilator 30 09/23/18 10:00 119 15 92/58 100 Mechanical Ventilator 30 09/23/18 10:00 92/58 09/23/18 09:30 119 16 101/65 100 Mechanical Ventilator 30 09/23/18 09:00 88/67 09/23/18 09:00 116 14 88/67 100 Mechanical Ventilator 30 09/23/18 08:40 115 14 30 09/23/18 08:30 115 15 95/66 100 Mechanical Ventilator 30 09/23/18 08:30 Mechanical Ventilator Mechanical Ventilator Mechanical Ventilator 09/23/18 08:06 124 09/23/18 08:00 98.3 120 17 91/63 100 Mechanical Ventilator 30 09/23/18 08:00 91/63 09/23/18 08:00 30 09/23/18 08:00 Mechanical Ventilator Mechanical Ventilator Mechanical Ventilator 09/23/18 07:30 119 15 99/71 100 Mechanical Ventilator 30 09/23/18 07:18 113 15 30 09/23/18 07:00 94/67 09/23/18 07:00 98.2 115 15 94/67 100 Mechanical Ventilator 30 09/23/18 06:30 114 15 101/71 100 Mechanical Ventilator 30 09/23/18 06:00 107/71 09/23/18 06:00 110 15 107/71 100 Mechanical Ventilator 30 09/23/18 05:30 110 15 95/67 100 Mechanical Ventilator 30 09/23/18 05:30 116/67 09/23/18 05:22 112 18 30 09/23/18 05:00 110 15 103/64 100 Mechanical Ventilator 30 09/23/18 05:00 103/64 09/23/18 04:30 114 16 93/68 100 Mechanical Ventilator 30 09/23/18 04:00 114 15 99/66 100 Mechanical Ventilator 30 09/23/18 04:00 30 09/23/18 04:00 112 09/23/18 04:00 99/66 09/23/18 04:00 Mechanical Ventilator Mechanical Ventilator Mechanical Ventilator 09/23/18 03:30 113 15 94/67 100 Mechanical Ventilator 30 09/23/18 03:30 104/67 09/23/18 03:20 124 15 30 09/23/18 03:00 94/67 09/23/18 03:00 117 15 98/69 100 Mechanical Ventilator 30 09/23/18 02:55 95/72 09/23/18 02:45 119 15 95/71 100 Mechanical Ventilator 30 09/23/18 02:30 121 15 95/72 100 Mechanical Ventilator 30 09/23/18 02:15 122 16 86/65 100 Mechanical Ventilator 30 09/23/18 02:00 124 17 85/66 100 Mechanical Ventilator 30 09/23/18 02:00 85/66 09/23/18 01:45 129 15 90/59 100 Mechanical Ventilator 30 09/23/18 01:30 130 16 87/63 100 Mechanical Ventilator 30 09/23/18 01:15 131 13 30 09/23/18 01:15 131 15 85/57 100 Mechanical Ventilator 30 09/23/18 01:00 131 12 80/50 100 Mechanical Ventilator 30 09/23/18 01:00 79/48 09/23/18 00:52 99.9 09/23/18 00:45 133 12 79/48 100 Mechanical Ventilator 30 09/23/18 00:30 136 12 79/50 100 Mechanical Ventilator 30 09/23/18 00:15 138 12 73/46 100 Mechanical Ventilator 30 09/23/18 00:00 99.8 141 12 67/49 100 Mechanical Ventilator 30 09/23/18 00:00 79/50 09/23/18 00:00 143 09/23/18 00:00 30 09/23/18 00:00 Mechanical Ventilator Mechanical Ventilator Mechanical Ventilator 09/22/18 23:45 144 12 77/51 100 Mechanical Ventilator 30 09/22/18 23:30 100.5 144 17 80/54 100 Mechanical Ventilator 30 09/22/18 23:15 144 17 79/55 100 Mechanical Ventilator 30 09/22/18 23:01 143 12 30 09/22/18 23:00 78/52 09/22/18 23:00 145 17 80/54 100 Mechanical Ventilator 30 09/22/18 22:45 143 17 78/52 100 Mechanical Ventilator 30 09/22/18 22:30 143 17 79/54 100 Mechanical Ventilator 30 09/22/18 22:15 143 17 83/51 100 Mechanical Ventilator 30 09/22/18 22:00 79/49 09/22/18 22:00 143 17 80/66 100 Mechanical Ventilator 30 09/22/18 21:45 144 17 79/49 100 Mechanical Ventilator 30 09/22/18 21:30 145 17 77/53 100 Mechanical Ventilator 30 09/22/18 21:15 123 12 30 09/22/18 21:15 143 17 80/49 100 Mechanical Ventilator 30 09/22/18 21:00 82/56 09/22/18 21:00 143 17 81/55 100 Mechanical Ventilator 30 09/22/18 20:45 141 17 82/56 100 Mechanical Ventilator 30 09/22/18 20:30 141 17 78/56 100 Mechanical Ventilator 30 09/22/18 20:15 140 17 80/57 100 Mechanical Ventilator 30 09/22/18 20:00 139 09/22/18 20:00 141 17 78/57 100 Mechanical Ventilator 30 09/22/18 20:00 82/58 09/22/18 20:00 Mechanical Ventilator Mechanical Ventilator Mechanical Ventilator 09/22/18 20:00 140 17 79/56 100 Mechanical Ventilator 30 09/22/18 20:00 30 09/22/18 19:45 139 17 82/58 100 Mechanical Ventilator 30 09/22/18 19:30 75/55 09/22/18 19:30 139 17 75/55 100 Mechanical Ventilator 30 09/22/18 19:15 99.1 139 17 76/55 100 Mechanical Ventilator 30 09/22/18 19:05 133 12 30 09/22/18 19:00 135 17 76/55 100 Mechanical Ventilator 30 09/22/18 18:45 131 19 79/61 100 Mechanical Ventilator 30 09/22/18 18:40 75/55 09/22/18 18:30 131 16 79/45 100 Mechanical Ventilator 30 09/22/18 18:15 97.5 130 18 84/51 100 Mechanical Ventilator 30 09/22/18 18:00 Mechanical Ventilator Mechanical Ventilator Mechanical Ventilator 09/22/18 18:00 30 09/22/18 18:00 Mechanical Ventilator Mechanical Ventilator Mechanical Ventilator 09/22/18 14:00 105 26 154/81 99 Mechanical Ventilator 30 09/22/18 13:20 92 12 30 09/22/18 13:00 89 12 132/77 100 Mechanical Ventilator 30 Intake and Output 09/22/18 09/23/18 19:00 07:00 Intake Total 400 ml 1445.920 ml Output Total 700 ml 220 ml Balance -300 ml 1225.920 ml IV Total 400 ml 1445.920 ml Output Urine Total 620 ml 20 ml Drainage Total 80 ml 200 ml Laboratory Tests 09/23/18 04:30: Sodium Level 146H, Potassium Level 4.3, Chloride Level 119H, Carbon Dioxide Level 15L, Anion Gap 12, Blood Urea Nitrogen 12, Creatinine 2.4#H, Estimat Glomerular Filtration Rate 27.8, Glucose Level 214#H, Calcium Level 6.1L, Total Bilirubin 0.4, Aspartate Amino Transf (AST/SGOT) 32, Alanine Aminotransferase ( ALT/SGPT) 18, Alkaline Phosphatase 60, Total Protein 3.8L, Albumin 0.9L, Globulin 2.9, Albumin/Globulin Ratio 0.3L 09/23/18 10:30: White Blood Count 31.8#*H, Red Blood Count 3.45L, Hemoglobin 10.1L, Hematocrit 31.2L, Mean Corpuscular Volume 90, Mean Corpuscular Hemoglobin 29.3, Mean Corpuscular Hemoglobin Concent 32.4, Red Cell Distribution Width 13.9, Platelet Count 396, Mean Platelet Volume 6.5, Neutrophils (%) (Auto) , Lymphocytes (%) ( Auto) , Monocytes (%) (Auto) , Eosinophils (%) (Auto) , Basophils (%) (Auto) , Differential Total Cells Counted 100, Neutrophils % (Manual) 82H, Lymphocytes % (Manual) 11L, Monocytes % (Manual) 3, Eosinophils % (Manual) 0, Basophils % ( Manual) 0, Band Neutrophils 4, Platelet Estimate Adequate, Platelet Morphology Normal, Hypochromasia 1+ Height (Feet): 5 Height (Inches): 5.00 Weight (Pounds): 119 General Appearance: no apparent distress, other - low bp Cardiovascular: tachycardia Respiratory/Chest: decreased breath sounds Abdomen: distended Objective no other changes Josesito Smalls MD Sep 23, 2018 12:18
--- NOTE | 2018-09-23 13:21 | General Progress Note ---
Progress Note Progress Note Surgery: labs noted. exam stable. drains with decreasing serosang output. trach stable. dressings stable. elevated renal function and low urine output. likely dehydrated. given bolus wean pressors prognosis guarded but has done well since surgery. thank you Isreal Lynne Sep 23, 2018 13:21
--- NOTE | 2018-09-23 13:54 | GI Progress Note ---
Assessment/Plan Problems: (1) G tube feedings ICD Codes: Z93.1 - Gastrostomy status SNOMED: 806818351, 944088428 (2) Protein-calorie malnutrition, severe ICD Codes: E43 - Unspecified severe protein-calorie malnutrition SNOMED: 471152788 (3) Anemia ICD Codes: D64.9 - Anemia, unspecified SNOMED: 254897087 (4) GI bleed ICD Codes: K92.2 - Gastrointestinal hemorrhage, unspecified SNOMED: 74897662 Status: unchanged Status Narrative Discussed with Dr. Horton. Assessment/Plan REOPERATIVE DIAGNOSES: 1. Malpositioned feeding tube with leak and peritonitis/perforation. 2. Respiratory insufficiency requiring prolonged ventilatory support. POSTOPERATIVE DIAGNOSES: 1. Large omental perigastric hematoma. 2. Malpositioned PEG tube with gastric perforation. 3. Large perisplenic abscess. 4. Abdominal peritonitis. 5. Respiratory insufficiency requiring prolonged ventilatory support. OPERATION PERFORMED: 1. Exploratory laparotomy. 2. Repair of gastric perforation. 3. Evacuation of abdominal omental / lesser sac hematoma. 4. Evacuation of perisplenic hematoma/abscess. 5. Omentectomy. 6. Splenectomy. 7. Abdominal washout. 8. Tracheostomy. RECOMMENDATIONS: fu surgical recommendations prn transfusion ppi GT site care daily/prn fu labs The patient was seen and examined at bedside and all new and available data was reviewed in the patients chart. I agree with the above findings, impression and plan. (Patient seen earlier today. Signature stamp does not reflect patient encounter time.). - Arthur Horton MD Subjective Subjective limited Objective Last 24 Hour Vital Signs Date Time Temp Pulse Resp B/P (MAP) Pulse Ox O2 Delivery O2 Flow Rate FiO2 09/23/18 13:24 124 31 30 09/23/18 12:00 30 09/23/18 12:00 Mechanical Ventilator Mechanical Ventilator Mechanical Ventilator 09/23/18 11:30 106 18 111/66 100 Mechanical Ventilator 30 09/23/18 11:05 113 14 30 09/23/18 11:00 102/59 09/23/18 11:00 110 17 102/59 100 Mechanical Ventilator 30 09/23/18 10:31 115 14 100 09/23/18 10:30 117 15 77/51 100 Mechanical Ventilator 30 09/23/18 10:00 119 15 92/58 100 Mechanical Ventilator 30 09/23/18 10:00 92/58 09/23/18 09:30 119 16 101/65 100 Mechanical Ventilator 30 09/23/18 09:00 88/67 09/23/18 09:00 116 14 88/67 100 Mechanical Ventilator 30 09/23/18 08:40 115 14 30 09/23/18 08:30 115 15 95/66 100 Mechanical Ventilator 30 09/23/18 08:30 Mechanical Ventilator Mechanical Ventilator Mechanical Ventilator 09/23/18 08:06 124 09/23/18 08:00 98.3 120 17 91/63 100 Mechanical Ventilator 30 09/23/18 08:00 91/63 09/23/18 08:00 30 09/23/18 08:00 Mechanical Ventilator Mechanical Ventilator Mechanical Ventilator 09/23/18 07:30 119 15 99/71 100 Mechanical Ventilator 30 09/23/18 07:18 113 15 30 09/23/18 07:00 94/67 09/23/18 07:00 98.2 115 15 94/67 100 Mechanical Ventilator 30 09/23/18 06:30 114 15 101/71 100 Mechanical Ventilator 30 09/23/18 06:00 107/71 09/23/18 06:00 110 15 107/71 100 Mechanical Ventilator 30 09/23/18 05:30 110 15 95/67 100 Mechanical Ventilator 30 09/23/18 05:30 116/67 09/23/18 05:22 112 18 30 09/23/18 05:00 110 15 103/64 100 Mechanical Ventilator 30 09/23/18 05:00 103/64 09/23/18 04:30 114 16 93/68 100 Mechanical Ventilator 30 09/23/18 04:00 114 15 99/66 100 Mechanical Ventilator 30 09/23/18 04:00 30 09/23/18 04:00 112 09/23/18 04:00 99/66 09/23/18 04:00 Mechanical Ventilator Mechanical Ventilator Mechanical Ventilator 09/23/18 03:30 113 15 94/67 100 Mechanical Ventilator 30 09/23/18 03:30 104/67 09/23/18 03:20 124 15 30 09/23/18 03:00 94/67 09/23/18 03:00 117 15 98/69 100 Mechanical Ventilator 30 09/23/18 02:55 95/72 09/23/18 02:45 119 15 95/71 100 Mechanical Ventilator 30 09/23/18 02:30 121 15 95/72 100 Mechanical Ventilator 30 09/23/18 02:15 122 16 86/65 100 Mechanical Ventilator 30 09/23/18 02:00 124 17 85/66 100 Mechanical Ventilator 30 09/23/18 02:00 85/66 09/23/18 01:45 129 15 90/59 100 Mechanical Ventilator 30 09/23/18 01:30 130 16 87/63 100 Mechanical Ventilator 30 09/23/18 01:15 131 13 30 09/23/18 01:15 131 15 85/57 100 Mechanical Ventilator 30 09/23/18 01:00 131 12 80/50 100 Mechanical Ventilator 30 09/23/18 01:00 79/48 09/23/18 00:52 99.9 09/23/18 00:45 133 12 79/48 100 Mechanical Ventilator 30 09/23/18 00:30 136 12 79/50 100 Mechanical Ventilator 30 09/23/18 00:15 138 12 73/46 100 Mechanical Ventilator 30 09/23/18 00:00 99.8 141 12 67/49 100 Mechanical Ventilator 30 09/23/18 00:00 79/50 09/23/18 00:00 143 09/23/18 00:00 30 09/23/18 00:00 Mechanical Ventilator Mechanical Ventilator Mechanical Ventilator 09/22/18 23:45 144 12 77/51 100 Mechanical Ventilator 30 09/22/18 23:30 100.5 144 17 80/54 100 Mechanical Ventilator 30 09/22/18 23:15 144 17 79/55 100 Mechanical Ventilator 30 09/22/18 23:01 143 12 30 09/22/18 23:00 78/52 09/22/18 23:00 145 17 80/54 100 Mechanical Ventilator 30 09/22/18 22:45 143 17 78/52 100 Mechanical Ventilator 30 09/22/18 22:30 143 17 79/54 100 Mechanical Ventilator 30 09/22/18 22:15 143 17 83/51 100 Mechanical Ventilator 30 09/22/18 22:00 79/49 09/22/18 22:00 143 17 80/66 100 Mechanical Ventilator 30 09/22/18 21:45 144 17 79/49 100 Mechanical Ventilator 30 09/22/18 21:30 145 17 77/53 100 Mechanical Ventilator 30 09/22/18 21:15 123 12 30 09/22/18 21:15 143 17 80/49 100 Mechanical Ventilator 30 09/22/18 21:00 82/56 09/22/18 21:00 143 17 81/55 100 Mechanical Ventilator 30 09/22/18 20:45 141 17 82/56 100 Mechanical Ventilator 30 09/22/18 20:30 141 17 78/56 100 Mechanical Ventilator 30 09/22/18 20:15 140 17 80/57 100 Mechanical Ventilator 30 09/22/18 20:00 139 09/22/18 20:00 141 17 78/57 100 Mechanical Ventilator 30 09/22/18 20:00 82/58 09/22/18 20:00 Mechanical Ventilator Mechanical Ventilator Mechanical Ventilator 09/22/18 20:00 140 17 79/56 100 Mechanical Ventilator 30 09/22/18 20:00 30 09/22/18 19:45 139 17 82/58 100 Mechanical Ventilator 30 09/22/18 19:30 75/55 09/22/18 19:30 139 17 75/55 100 Mechanical Ventilator 30 09/22/18 19:15 99.1 139 17 76/55 100 Mechanical Ventilator 30 09/22/18 19:05 133 12 30 09/22/18 19:00 135 17 76/55 100 Mechanical Ventilator 30 09/22/18 18:45 131 19 79/61 100 Mechanical Ventilator 30 09/22/18 18:40 75/55 09/22/18 18:30 131 16 79/45 100 Mechanical Ventilator 30 09/22/18 18:15 97.5 130 18 84/51 100 Mechanical Ventilator 30 09/22/18 18:00 Mechanical Ventilator Mechanical Ventilator Mechanical Ventilator 09/22/18 18:00 30 09/22/18 18:00 Mechanical Ventilator Mechanical Ventilator Mechanical Ventilator 09/22/18 14:00 105 26 154/81 99 Mechanical Ventilator 30 Intake and Output 09/22/18 09/23/18 19:00 07:00 Intake Total 400 ml 1445.920 ml Output Total 700 ml 220 ml Balance -300 ml 1225.920 ml IV Total 400 ml 1445.920 ml Output Urine Total 620 ml 20 ml Drainage Total 80 ml 200 ml Laboratory Tests Test 09/23/18 04:30 09/23/18 10:30 Sodium Level 146 MMOL/L (136-145) H Potassium Level 4.3 MMOL/L (3.5-5.1) Chloride Level 119 MMOL/L (98-107) H Carbon Dioxide Level 15 MMOL/L (21-32) L Anion Gap 12 mmol/L (5-15) Blood Urea Nitrogen 12 mg/dL (7-18) Creatinine 2.4 MG/DL (0.55-1.30) #H Estimat Glomerular Filtration Rate 27.8 mL/min (>60) Glucose Level 214 MG/DL (74-106) #H Calcium Level 6.1 MG/DL (8.5-10.1) L Total Bilirubin 0.4 MG/DL (0.2-1.0) Aspartate Amino Transf (AST/SGOT) 32 U/L (15-37) Alanine Aminotransferase (ALT/SGPT) 18 U/L (12-78) Alkaline Phosphatase 60 U/L (46-116) C-Reactive Protein, Quantitative 18.6 mg/dL (0.00-0.90) H Total Protein 3.8 G/DL (6.4-8.2) L Albumin 0.9 G/DL (3.4-5.0) L Globulin 2.9 g/dL Albumin/Globulin Ratio 0.3 (1.0-2.7) L White Blood Count 31.8 K/UL (4.8-10.8) #*H Red Blood Count 3.45 M/UL (4.70-6.10) L Hemoglobin 10.1 G/DL (14.2-18.0) L Hematocrit 31.2 % (42.0-52.0) L Mean Corpuscular Volume 90 FL (80-99) Mean Corpuscular Hemoglobin 29.3 PG (27.0-31.0) Mean Corpuscular Hemoglobin Concent 32.4 G/DL (32.0-36.0) Red Cell Distribution Width 13.9 % (11.6-14.8) Platelet Count 396 K/UL (150-450) Mean Platelet Volume 6.5 FL (6.5-10.1) Neutrophils (%) (Auto) % (45.0-75.0) Lymphocytes (%) (Auto) % (20.0-45.0) Monocytes (%) (Auto) % (1.0-10.0) Eosinophils (%) (Auto) % (0.0-3.0) Basophils (%) (Auto) % (0.0-2.0) Differential Total Cells Counted 100 Neutrophils % (Manual) 82 % (45-75) H Lymphocytes % (Manual) 11 % (20-45) L Monocytes % (Manual) 3 % (1-10) Eosinophils % (Manual) 0 % (0-3) Basophils % (Manual) 0 % (0-2) Band Neutrophils 4 % (0-8) Platelet Estimate Adequate Platelet Morphology Normal Hypochromasia 1+ Height (Feet): 5 Height (Inches): 5.00 Weight (Pounds): 119 General Appearance: no apparent distress, thin Cardiovascular: normal rate Respiratory/Chest: normal breath sounds, no respiratory distress, other - tracheostomy Abdominal Exam: normal bowel sounds, non tender, soft, incision site, GT site Extremities: non-tender Becki Holt NP Sep 23, 2018 13:54
--- NOTE | 2018-09-23 14:21 | General Progress Note ---
Assessment/Plan Problem List: (1) UTI (urinary tract infection) ICD Codes: N39.0 - Urinary tract infection, site not specified SNOMED: 05926571 (2) Renal failure ICD Codes: N19 - Unspecified kidney failure SNOMED: 96693929 (3) Anemia ICD Codes: D64.9 - Anemia, unspecified SNOMED: 411808188 (4) Acute respiratory failure ICD Codes: J96.00 - Acute respiratory failure, unspecified whether with hypoxia or hypercapnia SNOMED: 95121950 (5) Pneumonia ICD Codes: J18.9 - Pneumonia, unspecified organism SNOMED: 595359023 (6) Septic shock ICD Codes: A41.9 - Sepsis, unspecified organism; R65.21 - Severe sepsis with septic shock SNOMED: 95079916 (7) ATN (acute tubular necrosis) ICD Codes: N17.0 - Acute kidney failure with tubular necrosis SNOMED: 46890249 Status: unchanged Assessment/Plan vent abx wound care neph f/u gi eval cbc bmp am pending trach ltach transfer Subjective Constitutional: Reports: weakness Allergies: Coded Allergies: No Known Allergies (Unverified , 08/14/18) All Systems: reviewed and negative except above Subjective trach vent altered s/p exp lap and trach Objective Last 24 Hour Vital Signs Date Time Temp Pulse Resp B/P (MAP) Pulse Ox O2 Delivery O2 Flow Rate FiO2 09/23/18 13:24 124 31 30 09/23/18 12:00 30 09/23/18 12:00 Mechanical Ventilator Mechanical Ventilator Mechanical Ventilator 09/23/18 11:30 106 18 111/66 100 Mechanical Ventilator 30 09/23/18 11:05 113 14 30 09/23/18 11:00 102/59 09/23/18 11:00 110 17 102/59 100 Mechanical Ventilator 30 09/23/18 10:31 115 14 100 09/23/18 10:30 117 15 77/51 100 Mechanical Ventilator 30 09/23/18 10:00 119 15 92/58 100 Mechanical Ventilator 30 09/23/18 10:00 92/58 09/23/18 09:30 119 16 101/65 100 Mechanical Ventilator 30 09/23/18 09:00 88/67 09/23/18 09:00 116 14 88/67 100 Mechanical Ventilator 30 09/23/18 08:40 115 14 30 09/23/18 08:30 115 15 95/66 100 Mechanical Ventilator 30 09/23/18 08:30 Mechanical Ventilator Mechanical Ventilator Mechanical Ventilator 09/23/18 08:06 124 09/23/18 08:00 98.3 120 17 91/63 100 Mechanical Ventilator 30 09/23/18 08:00 91/63 09/23/18 08:00 30 09/23/18 08:00 Mechanical Ventilator Mechanical Ventilator Mechanical Ventilator 09/23/18 07:30 119 15 99/71 100 Mechanical Ventilator 30 09/23/18 07:18 113 15 30 09/23/18 07:00 94/67 09/23/18 07:00 98.2 115 15 94/67 100 Mechanical Ventilator 30 09/23/18 06:30 114 15 101/71 100 Mechanical Ventilator 30 09/23/18 06:00 107/71 09/23/18 06:00 110 15 107/71 100 Mechanical Ventilator 30 09/23/18 05:30 110 15 95/67 100 Mechanical Ventilator 30 09/23/18 05:30 116/67 09/23/18 05:22 112 18 30 09/23/18 05:00 110 15 103/64 100 Mechanical Ventilator 30 09/23/18 05:00 103/64 09/23/18 04:30 114 16 93/68 100 Mechanical Ventilator 30 09/23/18 04:00 114 15 99/66 100 Mechanical Ventilator 30 09/23/18 04:00 30 09/23/18 04:00 112 09/23/18 04:00 99/66 09/23/18 04:00 Mechanical Ventilator Mechanical Ventilator Mechanical Ventilator 09/23/18 03:30 113 15 94/67 100 Mechanical Ventilator 30 09/23/18 03:30 104/67 09/23/18 03:20 124 15 30 09/23/18 03:00 94/67 09/23/18 03:00 117 15 98/69 100 Mechanical Ventilator 30 09/23/18 02:55 95/72 09/23/18 02:45 119 15 95/71 100 Mechanical Ventilator 30 09/23/18 02:30 121 15 95/72 100 Mechanical Ventilator 30 09/23/18 02:15 122 16 86/65 100 Mechanical Ventilator 30 09/23/18 02:00 124 17 85/66 100 Mechanical Ventilator 30 09/23/18 02:00 85/66 09/23/18 01:45 129 15 90/59 100 Mechanical Ventilator 30 09/23/18 01:30 130 16 87/63 100 Mechanical Ventilator 30 09/23/18 01:15 131 13 30 09/23/18 01:15 131 15 85/57 100 Mechanical Ventilator 30 09/23/18 01:00 131 12 80/50 100 Mechanical Ventilator 30 09/23/18 01:00 79/48 09/23/18 00:52 99.9 09/23/18 00:45 133 12 79/48 100 Mechanical Ventilator 30 09/23/18 00:30 136 12 79/50 100 Mechanical Ventilator 30 09/23/18 00:15 138 12 73/46 100 Mechanical Ventilator 30 09/23/18 00:00 99.8 141 12 67/49 100 Mechanical Ventilator 30 09/23/18 00:00 79/50 09/23/18 00:00 143 09/23/18 00:00 30 09/23/18 00:00 Mechanical Ventilator Mechanical Ventilator Mechanical Ventilator 09/22/18 23:45 144 12 77/51 100 Mechanical Ventilator 30 09/22/18 23:30 100.5 144 17 80/54 100 Mechanical Ventilator 30 09/22/18 23:15 144 17 79/55 100 Mechanical Ventilator 30 09/22/18 23:01 143 12 30 09/22/18 23:00 78/52 09/22/18 23:00 145 17 80/54 100 Mechanical Ventilator 30 09/22/18 22:45 143 17 78/52 100 Mechanical Ventilator 30 09/22/18 22:30 143 17 79/54 100 Mechanical Ventilator 30 09/22/18 22:15 143 17 83/51 100 Mechanical Ventilator 30 09/22/18 22:00 79/49 09/22/18 22:00 143 17 80/66 100 Mechanical Ventilator 30 09/22/18 21:45 144 17 79/49 100 Mechanical Ventilator 30 09/22/18 21:30 145 17 77/53 100 Mechanical Ventilator 30 09/22/18 21:15 123 12 30 09/22/18 21:15 143 17 80/49 100 Mechanical Ventilator 30 09/22/18 21:00 82/56 09/22/18 21:00 143 17 81/55 100 Mechanical Ventilator 30 09/22/18 20:45 141 17 82/56 100 Mechanical Ventilator 30 09/22/18 20:30 141 17 78/56 100 Mechanical Ventilator 30 09/22/18 20:15 140 17 80/57 100 Mechanical Ventilator 30 09/22/18 20:00 139 09/22/18 20:00 141 17 78/57 100 Mechanical Ventilator 30 09/22/18 20:00 82/58 09/22/18 20:00 Mechanical Ventilator Mechanical Ventilator Mechanical Ventilator 09/22/18 20:00 140 17 79/56 100 Mechanical Ventilator 30 09/22/18 20:00 30 09/22/18 19:45 139 17 82/58 100 Mechanical Ventilator 30 09/22/18 19:30 75/55 09/22/18 19:30 139 17 75/55 100 Mechanical Ventilator 30 09/22/18 19:15 99.1 139 17 76/55 100 Mechanical Ventilator 30 09/22/18 19:05 133 12 30 09/22/18 19:00 135 17 76/55 100 Mechanical Ventilator 30 09/22/18 18:45 131 19 79/61 100 Mechanical Ventilator 30 09/22/18 18:40 75/55 09/22/18 18:30 131 16 79/45 100 Mechanical Ventilator 30 09/22/18 18:15 97.5 130 18 84/51 100 Mechanical Ventilator 30 09/22/18 18:00 Mechanical Ventilator Mechanical Ventilator Mechanical Ventilator 09/22/18 18:00 30 09/22/18 18:00 Mechanical Ventilator Mechanical Ventilator Mechanical Ventilator Intake and Output 09/22/18 09/23/18 18:59 06:59 Intake Total 400 ml 1407.060 ml Output Total 930 ml 230 ml Balance -530 ml 1177.060 ml IV Total 400 ml 1407.060 ml Output Urine Total 650 ml 30 ml Stool Total 200 ml Drainage Total 80 ml 200 ml Laboratory Tests 09/23/18 04:30: Sodium Level 146H, Potassium Level 4.3, Chloride Level 119H, Carbon Dioxide Level 15L, Anion Gap 12, Blood Urea Nitrogen 12, Creatinine 2.4#H, Estimat Glomerular Filtration Rate 27.8, Glucose Level 214#H, Calcium Level 6.1L, Total Bilirubin 0.4, Aspartate Amino Transf (AST/SGOT) 32, Alanine Aminotransferase ( ALT/SGPT) 18, Alkaline Phosphatase 60, C-Reactive Protein, Quantitative 18.6H, Total Protein 3.8L, Albumin 0.9L, Globulin 2.9, Albumin/Globulin Ratio 0.3L 09/23/18 10:30: White Blood Count 31.8#*H, Red Blood Count 3.45L, Hemoglobin 10.1L, Hematocrit 31.2L, Mean Corpuscular Volume 90, Mean Corpuscular Hemoglobin 29.3, Mean Corpuscular Hemoglobin Concent 32.4, Red Cell Distribution Width 13.9, Platelet Count 396, Mean Platelet Volume 6.5, Neutrophils (%) (Auto) , Lymphocytes (%) ( Auto) , Monocytes (%) (Auto) , Eosinophils (%) (Auto) , Basophils (%) (Auto) , Differential Total Cells Counted 100, Neutrophils % (Manual) 82H, Lymphocytes % (Manual) 11L, Monocytes % (Manual) 3, Eosinophils % (Manual) 0, Basophils % ( Manual) 0, Band Neutrophils 4, Platelet Estimate Adequate, Platelet Morphology Normal, Hypochromasia 1+ Height (Feet): 5 Height (Inches): 5.00 Weight (Pounds): 119 General Appearance: lethargic EENT: normal ENT inspection Neck: normal alignment Cardiovascular: normal peripheral pulses, normal rate, regular rhythm Respiratory/Chest: chest wall non-tender, decreased breath sounds Abdomen: normal bowel sounds, hypoactive bowel sounds Extremities: normal inspection Edema: no edema noted Arm (L), no edema noted Arm (R), no edema noted Leg (L), no edema noted Leg (R), no edema noted Pedal (L), no edema noted Pedal (R), no edema noted Generalized Neurologic: motor weakness Skin: normal pigmentation, warm/dry Jasmeet Reynoso DO Sep 23, 2018 14:21
--- NOTE | 2018-09-23 15:21 | Infectious Diseases Prog Note ---
Assessment/Plan Assessment/Plan 62 yo male with PMHx of Quadriplegia with G-tube, HTN, DM and Schizophenia who [facility]. Displaced GT with perforation c/w peritonitis and hematoma/abscess formation -09/22 SP Exploratory laparotomy. Repair of gastric perforation. Evacuation of abdominal omental / lesser sac hematoma. Evacuation of perisplenic hematoma/ abscess. Omentectomy. Splenectomy. Abdominal washout. Tracheostomy. -09/21 CT abd/p: The gastrostomy tube appears to be partially intraluminal and partially communicate with a large intramural collection involving mostly the inferior posterior wall of the stomach. There is some anterior wall pneumatosis. Contrast within the collection most likely represents instilled enteric contrast, but could also represent extravasated vascular contrast. There is evidence of rupture of this collection into the peritoneal space, with extravasated contrast in the left upper quadrant. There is anterior gastric wall intramural pneumatosis as well as a small amount of free extraluminal gas. Moderate ascites. Enhancement of much of the peritoneum raises concern for peritonitis. There may also be loculated intraperitoneal collections which could represent abscesses, predominantly adjacent to the tip of the right hepatic lobe, subcapsular in the spleen, and within the left upper quadrant. Thick-walled sigmoid colon, transverse colon and equivocally the proximal jejunum. Likely reactive related to the above, but could also indicate enteritis /colitis changes Septic shock 2ry to above Leukocytosis, recurrent worsened-after procedure -09/20 ucx NTD; u/a neg -09/19 CXR: Bilateral pleural effusions and bibasilar atelectasis/airspace disease are stable. Low grade fever; improving Diarrhea- -Cdiff neg GIB Sepsis - Probably PNA , s/p Rx 09/22 CXR: Bilateral pleural effusions, basilar atelectatic changes, and interstitial congestive changes are stable CXR 09/07/18 - possible left sided consolidation Inf neg 09/07/18 BCx 2/2 sets diphteroids, 12 setse S. epi (contaminants); 09/11 Bcx NTD 09/07/18 SCx - NF 09/07/18 UCx - Neg 09/09 Cdiff neg HTN DM Schizophenia Quadriplegia. G- tube dependent Plan -Continue Zosyn #2 and add IV Micafunginint he setting of stomach perforation and intraabdominal fluid collections -f/u Bcx x2, Urine Cx - 09/19/18 SP Zosyn #10 - 09/17/18 SP Vancmocyin #10 - 09/09/18 Ertapenem #3 - Monitor CBC and temps -Sx f/u -wound care We will continue to follow the patient during this hospitalization. Subjective Allergies: Coded Allergies: No Known Allergies (Unverified , 08/14/18) Subjective Tm 100.5 wbc jumped to 31 post procedure s/p exp lap yesterday Objective Vital Signs Last 24 Hour Vital Signs Date Time Temp Pulse Resp B/P (MAP) Pulse Ox O2 Delivery O2 Flow Rate FiO2 09/23/18 13:24 124 31 30 09/23/18 12:00 30 09/23/18 12:00 Mechanical Ventilator Mechanical Ventilator Mechanical Ventilator 09/23/18 11:30 106 18 111/66 100 Mechanical Ventilator 30 09/23/18 11:05 113 14 30 09/23/18 11:00 102/59 09/23/18 11:00 110 17 102/59 100 Mechanical Ventilator 30 09/23/18 10:31 115 14 100 09/23/18 10:30 117 15 77/51 100 Mechanical Ventilator 30 09/23/18 10:00 119 15 92/58 100 Mechanical Ventilator 30 09/23/18 10:00 92/58 09/23/18 09:30 119 16 101/65 100 Mechanical Ventilator 30 09/23/18 09:00 88/67 09/23/18 09:00 116 14 88/67 100 Mechanical Ventilator 30 09/23/18 08:40 115 14 30 09/23/18 08:30 115 15 95/66 100 Mechanical Ventilator 30 09/23/18 08:30 Mechanical Ventilator Mechanical Ventilator Mechanical Ventilator 09/23/18 08:06 124 09/23/18 08:00 98.3 120 17 91/63 100 Mechanical Ventilator 30 09/23/18 08:00 91/63 09/23/18 08:00 30 09/23/18 08:00 Mechanical Ventilator Mechanical Ventilator Mechanical Ventilator 09/23/18 07:30 119 15 99/71 100 Mechanical Ventilator 30 09/23/18 07:18 113 15 30 09/23/18 07:00 94/67 09/23/18 07:00 98.2 115 15 94/67 100 Mechanical Ventilator 30 09/23/18 06:30 114 15 101/71 100 Mechanical Ventilator 30 09/23/18 06:00 107/71 09/23/18 06:00 110 15 107/71 100 Mechanical Ventilator 30 09/23/18 05:30 110 15 95/67 100 Mechanical Ventilator 30 09/23/18 05:30 116/67 09/23/18 05:22 112 18 30 09/23/18 05:00 110 15 103/64 100 Mechanical Ventilator 30 09/23/18 05:00 103/64 09/23/18 04:30 114 16 93/68 100 Mechanical Ventilator 30 09/23/18 04:00 114 15 99/66 100 Mechanical Ventilator 30 09/23/18 04:00 30 09/23/18 04:00 112 09/23/18 04:00 99/66 09/23/18 04:00 Mechanical Ventilator Mechanical Ventilator Mechanical Ventilator 09/23/18 03:30 113 15 94/67 100 Mechanical Ventilator 30 09/23/18 03:30 104/67 09/23/18 03:20 124 15 30 09/23/18 03:00 94/67 09/23/18 03:00 117 15 98/69 100 Mechanical Ventilator 30 09/23/18 02:55 95/72 09/23/18 02:45 119 15 95/71 100 Mechanical Ventilator 30 09/23/18 02:30 121 15 95/72 100 Mechanical Ventilator 30 09/23/18 02:15 122 16 86/65 100 Mechanical Ventilator 30 09/23/18 02:00 124 17 85/66 100 Mechanical Ventilator 30 09/23/18 02:00 85/66 09/23/18 01:45 129 15 90/59 100 Mechanical Ventilator 30 09/23/18 01:30 130 16 87/63 100 Mechanical Ventilator 30 09/23/18 01:15 131 13 30 09/23/18 01:15 131 15 85/57 100 Mechanical Ventilator 30 09/23/18 01:00 131 12 80/50 100 Mechanical Ventilator 30 09/23/18 01:00 79/48 09/23/18 00:52 99.9 09/23/18 00:45 133 12 79/48 100 Mechanical Ventilator 30 09/23/18 00:30 136 12 79/50 100 Mechanical Ventilator 30 09/23/18 00:15 138 12 73/46 100 Mechanical Ventilator 30 09/23/18 00:00 99.8 141 12 67/49 100 Mechanical Ventilator 30 09/23/18 00:00 79/50 09/23/18 00:00 143 09/23/18 00:00 30 09/23/18 00:00 Mechanical Ventilator Mechanical Ventilator Mechanical Ventilator 09/22/18 23:45 144 12 77/51 100 Mechanical Ventilator 30 09/22/18 23:30 100.5 144 17 80/54 100 Mechanical Ventilator 30 09/22/18 23:15 144 17 79/55 100 Mechanical Ventilator 30 09/22/18 23:01 143 12 30 09/22/18 23:00 78/52 09/22/18 23:00 145 17 80/54 100 Mechanical Ventilator 30 09/22/18 22:45 143 17 78/52 100 Mechanical Ventilator 30 09/22/18 22:30 143 17 79/54 100 Mechanical Ventilator 30 09/22/18 22:15 143 17 83/51 100 Mechanical Ventilator 30 09/22/18 22:00 79/49 09/22/18 22:00 143 17 80/66 100 Mechanical Ventilator 30 09/22/18 21:45 144 17 79/49 100 Mechanical Ventilator 30 09/22/18 21:30 145 17 77/53 100 Mechanical Ventilator 30 09/22/18 21:15 123 12 30 09/22/18 21:15 143 17 80/49 100 Mechanical Ventilator 30 09/22/18 21:00 82/56 09/22/18 21:00 143 17 81/55 100 Mechanical Ventilator 30 09/22/18 20:45 141 17 82/56 100 Mechanical Ventilator 30 09/22/18 20:30 141 17 78/56 100 Mechanical Ventilator 30 09/22/18 20:15 140 17 80/57 100 Mechanical Ventilator 30 09/22/18 20:00 139 09/22/18 20:00 141 17 78/57 100 Mechanical Ventilator 30 09/22/18 20:00 82/58 09/22/18 20:00 Mechanical Ventilator Mechanical Ventilator Mechanical Ventilator 09/22/18 20:00 140 17 79/56 100 Mechanical Ventilator 30 09/22/18 20:00 30 09/22/18 19:45 139 17 82/58 100 Mechanical Ventilator 30 09/22/18 19:30 75/55 09/22/18 19:30 139 17 75/55 100 Mechanical Ventilator 30 09/22/18 19:15 99.1 139 17 76/55 100 Mechanical Ventilator 30 09/22/18 19:05 133 12 30 09/22/18 19:00 135 17 76/55 100 Mechanical Ventilator 30 09/22/18 18:45 131 19 79/61 100 Mechanical Ventilator 30 09/22/18 18:40 75/55 09/22/18 18:30 131 16 79/45 100 Mechanical Ventilator 30 09/22/18 18:15 97.5 130 18 84/51 100 Mechanical Ventilator 30 09/22/18 18:00 Mechanical Ventilator Mechanical Ventilator Mechanical Ventilator 09/22/18 18:00 30 09/22/18 18:00 Mechanical Ventilator Mechanical Ventilator Mechanical Ventilator Height (Feet): 5 Height (Inches): 5.00 Weight (Pounds): 119 Objective Gen: NAD, On vent satting well 35% O2 HEENT: NCAT, MMM, EOMI LUNGS: CTAB, No W/C, CARDS: RRR, S1, S2, No M/R/G, ABD: Soft, NT, distended, + BS,G tube (No E/P) NEURO: Intubated, not following Microbiology Date/Time Source Procedure Growth Status 09/21/18 17:10 Blood Blood Culture - Preliminary NO GROWTH AFTER 24 HOURS Resulted 09/21/18 13:30 Blood Blood Culture - Preliminary NO GROWTH AFTER 24 HOURS Resulted 09/21/18 18:00 Stool Clostridium difficile Toxin Assay - Final Complete 09/21/18 18:00 Urine,Clean Catch Urine Culture - Preliminary YEAST Resulted Laboratory Tests Test 09/23/18 04:30 09/23/18 10:30 Sodium Level 146 MMOL/L (136-145) H Potassium Level 4.3 MMOL/L (3.5-5.1) Chloride Level 119 MMOL/L (98-107) H Carbon Dioxide Level 15 MMOL/L (21-32) L Anion Gap 12 mmol/L (5-15) Blood Urea Nitrogen 12 mg/dL (7-18) Creatinine 2.4 MG/DL (0.55-1.30) #H Estimat Glomerular Filtration Rate 27.8 mL/min (>60) Glucose Level 214 MG/DL (74-106) #H Calcium Level 6.1 MG/DL (8.5-10.1) L Total Bilirubin 0.4 MG/DL (0.2-1.0) Aspartate Amino Transf (AST/SGOT) 32 U/L (15-37) Alanine Aminotransferase (ALT/SGPT) 18 U/L (12-78) Alkaline Phosphatase 60 U/L (46-116) C-Reactive Protein, Quantitative 18.6 mg/dL (0.00-0.90) H Total Protein 3.8 G/DL (6.4-8.2) L Albumin 0.9 G/DL (3.4-5.0) L Globulin 2.9 g/dL Albumin/Globulin Ratio 0.3 (1.0-2.7) L White Blood Count 31.8 K/UL (4.8-10.8) #*H Red Blood Count 3.45 M/UL (4.70-6.10) L Hemoglobin 10.1 G/DL (14.2-18.0) L Hematocrit 31.2 % (42.0-52.0) L Mean Corpuscular Volume 90 FL (80-99) Mean Corpuscular Hemoglobin 29.3 PG (27.0-31.0) Mean Corpuscular Hemoglobin Concent 32.4 G/DL (32.0-36.0) Red Cell Distribution Width 13.9 % (11.6-14.8) Platelet Count 396 K/UL (150-450) Mean Platelet Volume 6.5 FL (6.5-10.1) Neutrophils (%) (Auto) % (45.0-75.0) Lymphocytes (%) (Auto) % (20.0-45.0) Monocytes (%) (Auto) % (1.0-10.0) Eosinophils (%) (Auto) % (0.0-3.0) Basophils (%) (Auto) % (0.0-2.0) Differential Total Cells Counted 100 Neutrophils % (Manual) 82 % (45-75) H Lymphocytes % (Manual) 11 % (20-45) L Monocytes % (Manual) 3 % (1-10) Eosinophils % (Manual) 0 % (0-3) Basophils % (Manual) 0 % (0-2) Band Neutrophils 4 % (0-8) Platelet Estimate Adequate Platelet Morphology Normal Hypochromasia 1+ Current Medications Medications (Trade) Dose Ordered Sig/Julito Route PRN Reason Start Time Stop Time Status Last Admin Dose Admin Acetaminophen (Tylenol) 650 mg Q4H PRN NG Mild Pain/Temp > 100.5 09/08/18 13:30 10/08/18 13:29 09/22/18 23:44 Chlorhexidine Gluconate (Camila-Hex 2%) 1 applic DAILY@2000 TOPIC 09/15/18 20:00 10/15/18 19:59 09/22/18 21:19 Dextrose (Dextrose 50%) 25 ml Q30M PRN IV Hypoglycemia 09/08/18 13:30 10/08/18 13:29 Dextrose (Dextrose 50%) 50 ml Q30M PRN IV Hypoglycemia 09/08/18 13:30 10/08/18 13:29 09/17/18 00:30 Dextrose/Sodium Chloride 1,000 ml @ 50 mls/hr Q20H IV 09/13/18 13:45 09/23/18 19:59 09/22/18 21:25 Fat Emulsion Intravenous 216 ml/Amino Acids/ Electrolytes/ Dextrose 1,608 ml @ 67 mls/hr Q24H IV 09/23/18 20:00 10/23/18 19:59 Heparin Sodium (Porcine) (Heparin 5000 units/ml) 5,000 units EVERY 12 HOURS SUBQ 09/07/18 21:00 10/07/18 20:59 09/20/18 20:46 Insulin Aspart (NovoLOG) Q6HR SUBQ 09/17/18 18:00 10/08/18 14:29 09/23/18 12:19 Loperamide HCl (Imodium) 4 mg TIDPRN PRN ORAL Diarrhea 09/10/18 13:00 10/10/18 12:59 09/11/18 03:51 Midodrine (Pro-Amatine) 2.5 mg THREE TIMES A DAY GT 09/13/18 18:00 10/13/18 17:59 09/21/18 09:29 Norepinephrine Bitartrate 8 mg/ Dextrose 558 ml @ 0 mls/hr Q24H IV 09/08/18 21:00 10/08/18 20:59 09/23/18 02:55 Ondansetron HCl (Zofran) 4 mg Q6H PRN IVP Nausea & Vomiting 09/07/18 15:15 10/07/18 15:14 Pantoprazole (Protonix) 40 mg Q12HR IVP 09/07/18 21:00 10/08/18 08:59 09/23/18 09:39 Phytonadione (Vitamin K) 10 mg QWEEK SUBQ 09/30/18 09:00 10/30/18 08:59 Piperacillin Sod/ Tazobactam Sod 3.375 gm/Sodium Chloride 110 ml @ 27.5 mls/hr EVERY 8 HOURS IVPB 09/22/18 22:00 09/27/18 21:59 09/23/18 14:01 Polyethylene Glycol (Miralax) 17 gm DAILYPRN PRN ORAL Constipation 09/07/18 15:15 10/07/18 15:14 Risperidone (RisperDAL) 0.25 mg QHS ORAL 09/10/18 21:00 10/10/18 20:59 09/22/18 21:20 Sodium Chloride 500 ml @ 999 mls/hr Q31M PRN IV SBP<90mmHg 09/08/18 11:00 10/08/18 10:59 09/08/18 12:34 Sodium Chloride 1,000 ml @ 60 mls/hr [id number] IV 09/23/18 20:00 10/23/18 19:59 Kell Larkin M.D. Sep 23, 2018 15:20
[2018-09-23] MEDS ORDERED: Micafungin 100 MG in NS 110 ML IVPB SCH (18:00)
[2018-09-23] MEDS: D5NS 1,000 ML IV SCH (18:43)
[2018-09-23] MEDS ORDERED: FAT EMULSION 20% IV SCH (20:00)
[2018-09-23] MEDS ORDERED: TPN IV SCH (20:00)
[2018-09-23] MEDS: Dyna-Hex 2% Top Sol 2oz TOPIC SCH (20:20)
[2018-09-23 21:12] LABS: CHOLESTEROL < 50 MG/DL (< 200); HDL CHOLESTEROL 8 MG/DL (40-60); TRIGLYCERIDES 53 MG/DL (30-150)
--- NOTE | 2018-09-23 21:15 | Consultation ---
DATE OF CONSULTATION: SUBJECTIVE: This is a 62-year-old male patient with septic shock. The patient continued to have some confusion, disorganized thought process and mood lability. He has got no logical plan for his own self-care. He is in the ICU, continues to be confused and disorganized. He has altered mental status. His cognition has declined below his baseline. That is why he does require inpatient treatment at this time. DIAGNOSIS: Paranoid schizophrenia with acute exacerbation. PLAN: Continue to treat this patient with Risperdal. He is unable to talk to me verbally. He is currently in the ICU, altered mental state, but he does have a history of psychomotor agitation. I will continue him on Risperdal. The patient will continued to be followed by Psychiatry throughout his hospital course. Seen and assessed in the ICU. Virgie Mcdermott M.D. DR: Gerri JOB#: [id number] CC:
[2018-09-24] VITALS (15 sets, daily range): BP systolic 125–156; BP diastolic 63–95
[2018-09-24] MEDS: NovoLOG Insulin Flexpen SUBQ SCH ×6 (00:24→23:15)
[2018-09-24 06:01] LABS: HEMATOCRIT 22.8 % (42.0-52.0); HEMOGLOBIN 7.8 G/DL (14.2-18.0); MEAN CORPUSCULAR VOLUME 89 FL (80-99); PLATELET COUNT 343 K/UL (150-450); RED BLOOD COUNT 2.57 M/UL (4.70-6.10); RED CELL DISTRIBUTION WIDTH 13.3 % (11.6-14.8)
[2018-09-24 06:07] LABS: WHITE BLOOD COUNT 24.4 K/UL (4.8-10.8)
[2018-09-24] MEDS: Piperacillin/Tazobactam 3.375 GM in NS 110 ML IVPB SCH ×3 (06:13→21:20)
[2018-09-24 06:25] LABS: ALANINE AMINOTRANSFERASE 22 U/L (12-78); ALBUMIN 1.3 G/DL (3.4-5.0); ALBUMIN/GLOBULIN RATIO 0.4 (1.0-2.7); ALKALINE PHOSPHATASE 72 U/L (46-116); ANION GAP 13 mmol/L (5-15); ASPARTATE AMINO TRANSFERASE 32 U/L (15-37); BILIRUBIN,TOTAL 0.5 MG/DL (0.2-1.0); BLOOD UREA NITROGEN 12 mg/dL (7-18); CARBON DIOXIDE 15 MMOL/L (21-32); CHLORIDE 120 MMOL/L (98-107); POTASSIUM 3.4 MMOL/L (3.5-5.1); SODIUM 148 MMOL/L (136-145)
--- NOTE | 2018-09-24 06:44 | General Progress Note ---
Assessment/Plan Problem List: (1) UTI (urinary tract infection) ICD Codes: N39.0 - Urinary tract infection, site not specified SNOMED: 79510557 (2) Renal failure ICD Codes: N19 - Unspecified kidney failure SNOMED: 73987784 (3) Anemia ICD Codes: D64.9 - Anemia, unspecified SNOMED: 407171381 (4) Acute respiratory failure ICD Codes: J96.00 - Acute respiratory failure, unspecified whether with hypoxia or hypercapnia SNOMED: 76407549 (5) Pneumonia ICD Codes: J18.9 - Pneumonia, unspecified organism SNOMED: 681807474 (6) Septic shock ICD Codes: A41.9 - Sepsis, unspecified organism; R65.21 - Severe sepsis with septic shock SNOMED: 82704020 (7) ATN (acute tubular necrosis) ICD Codes: N17.0 - Acute kidney failure with tubular necrosis SNOMED: 35734374 Status: progressing Assessment/Plan vent abx wound care neph f/u gi eval cbc bmp am ltach transfer Subjective Constitutional: Reports: weakness Allergies: Coded Allergies: No Known Allergies (Unverified , 08/14/18) All Systems: reviewed and negative except above Subjective trach vent altered s/p exp lap and trach Objective Last 24 Hour Vital Signs Date Time Temp Pulse Resp B/P (MAP) Pulse Ox O2 Delivery O2 Flow Rate FiO2 09/24/18 06:00 102 17 146/81 100 Mechanical Ventilator 30 09/24/18 05:15 112 18 30 09/24/18 05:00 108 19 152/91 100 Mechanical Ventilator 30 09/24/18 04:00 101 09/24/18 04:00 Mechanical Ventilator Mechanical Ventilator Mechanical Ventilator 09/24/18 04:00 30 09/24/18 04:00 99.0 104 17 146/79 100 Mechanical Ventilator 30 09/24/18 03:15 98 20 30 09/24/18 03:00 104 17 138/81 100 Mechanical Ventilator 30 09/24/18 02:00 103 20 125/63 100 Mechanical Ventilator 30 09/24/18 02:00 98.0 105 17 141/75 100 Mechanical Ventilator 30 09/24/18 01:00 105 17 129/70 100 Mechanical Ventilator 30 09/24/18 00:53 105 16 30 09/24/18 00:00 100 09/24/18 00:00 Mechanical Ventilator Mechanical Ventilator Mechanical Ventilator 09/24/18 00:00 30 09/24/18 00:00 98.0 105 17 141/75 100 Mechanical Ventilator 30 09/23/18 23:08 101 16 30 09/23/18 23:00 106 17 116/68 100 Mechanical Ventilator 30 09/23/18 22:00 129/76 09/23/18 22:00 101 17 129/76 100 Mechanical Ventilator 30 09/23/18 21:22 102 15 Mechanical Ventilator 30 09/23/18 21:21 102 15 30 09/23/18 21:00 121/64 09/23/18 21:00 98 17 121/70 100 Mechanical Ventilator 30 09/23/18 20:30 99 17 118/72 100 Mechanical Ventilator 30 09/23/18 20:04 94 15 30 09/23/18 20:00 98.2 99 17 120/70 100 Mechanical Ventilator 30 09/23/18 20:00 30 09/23/18 20:00 120/70 09/23/18 20:00 100 09/23/18 20:00 Mechanical Ventilator Mechanical Ventilator Mechanical Ventilator 09/23/18 18:46 119/70 09/23/18 18:30 100 17 119/70 100 Mechanical Ventilator 30 09/23/18 18:00 102 19 125/67 100 Mechanical Ventilator 30 09/23/18 18:00 125/67 09/23/18 17:30 104 18 125/68 100 Mechanical Ventilator 30 09/23/18 17:00 118/58 09/23/18 17:00 104 16 118/58 100 Mechanical Ventilator 30 09/23/18 16:32 100 16 30 09/23/18 16:30 98.5 102 17 114/59 100 Mechanical Ventilator 30 09/23/18 16:00 100 17 122/64 100 Mechanical Ventilator 30 09/23/18 16:00 Mechanical Ventilator Mechanical Ventilator Mechanical Ventilator 09/23/18 16:00 30 09/23/18 16:00 117/64 09/23/18 16:00 30 09/23/18 15:34 102 09/23/18 15:30 102 17 106/56 100 Mechanical Ventilator 30 09/23/18 15:15 105 20 30 09/23/18 15:00 102 17 151/78 100 Mechanical Ventilator 30 09/23/18 15:00 113/62 09/23/18 14:30 104 18 105/63 100 Mechanical Ventilator 30 09/23/18 14:00 104/57 09/23/18 14:00 108 19 104/57 100 Mechanical Ventilator 30 09/23/18 13:30 105 18 106/55 100 Mechanical Ventilator 30 09/23/18 13:24 124 31 30 09/23/18 13:00 77/47 09/23/18 13:00 113 18 77/47 100 Mechanical Ventilator 30 09/23/18 12:30 118 21 85/50 100 Mechanical Ventilator 30 09/23/18 12:10 115 09/23/18 12:00 30 09/23/18 12:00 99.2 117 22 110/55 100 Mechanical Ventilator 30 09/23/18 12:00 Mechanical Ventilator Mechanical Ventilator Mechanical Ventilator 09/23/18 12:00 85/50 09/23/18 11:30 106 18 111/66 100 Mechanical Ventilator 30 09/23/18 11:05 113 14 30 09/23/18 11:00 102/59 09/23/18 11:00 110 17 102/59 100 Mechanical Ventilator 30 09/23/18 10:31 115 14 100 09/23/18 10:30 117 15 77/51 100 Mechanical Ventilator 30 09/23/18 10:00 119 15 92/58 100 Mechanical Ventilator 30 09/23/18 10:00 92/58 09/23/18 09:30 119 16 101/65 100 Mechanical Ventilator 30 09/23/18 09:00 88/67 09/23/18 09:00 116 14 88/67 100 Mechanical Ventilator 30 09/23/18 08:40 115 14 30 09/23/18 08:30 115 15 95/66 100 Mechanical Ventilator 30 09/23/18 08:30 Mechanical Ventilator Mechanical Ventilator Mechanical Ventilator 09/23/18 08:06 124 09/23/18 08:00 98.3 120 17 91/63 100 Mechanical Ventilator 30 09/23/18 08:00 91/63 09/23/18 08:00 30 09/23/18 08:00 Mechanical Ventilator Mechanical Ventilator Mechanical Ventilator 09/23/18 07:30 119 15 99/71 100 Mechanical Ventilator 30 09/23/18 07:18 113 15 30 09/23/18 07:00 94/67 09/23/18 07:00 98.2 115 15 94/67 100 Mechanical Ventilator 30 Intake and Output 09/23/18 09/24/18 19:00 07:00 Intake Total 1982.46 ml 622.22 ml Output Total 720 ml 910 ml Balance 1262.46 ml -287.78 ml IV Total 1982.46 ml 622.22 ml Output Urine Total 340 ml 800 ml Drainage Total 380 ml 110 ml Laboratory Tests 09/23/18 10:30: White Blood Count 31.8#*H, Red Blood Count 3.45L, Hemoglobin 10.1L, Hematocrit 31.2L, Mean Corpuscular Volume 90, Mean Corpuscular Hemoglobin 29.3, Mean Corpuscular Hemoglobin Concent 32.4, Red Cell Distribution Width 13.9, Platelet Count 396, Mean Platelet Volume 6.5, Neutrophils (%) (Auto) , Lymphocytes (%) ( Auto) , Monocytes (%) (Auto) , Eosinophils (%) (Auto) , Basophils (%) (Auto) , Differential Total Cells Counted 100, Neutrophils % (Manual) 82H, Lymphocytes % (Manual) 11L, Monocytes % (Manual) 3, Eosinophils % (Manual) 0, Basophils % ( Manual) 0, Band Neutrophils 4, Platelet Estimate Adequate, Platelet Morphology Normal, Hypochromasia 1+ 09/24/18 05:20: White Blood Count 24.4*H, Red Blood Count 2.57L, Hemoglobin 7.8L, Hematocrit 22.8L, Mean Corpuscular Volume 89, Mean Corpuscular Hemoglobin 30.3, Mean Corpuscular Hemoglobin Concent 34.1, Red Cell Distribution Width 13.3, Platelet Count 343, Mean Platelet Volume 6.0L, Neutrophils (%) (Auto) , Lymphocytes (%) ( Auto) , Monocytes (%) (Auto) , Eosinophils (%) (Auto) , Basophils (%) (Auto) , Neutrophils % (Manual) [Pending], Lymphocytes % (Manual) [Pending], Platelet Estimate [Pending], Platelet Morphology [Pending], Sodium Level 148H, Potassium Level 3.4L, Chloride Level 120H, Carbon Dioxide Level 15L, Anion Gap 13, Blood Urea Nitrogen 12, Creatinine 2.0H, Estimat Glomerular Filtration Rate 34.3, Glucose Level 154H, Uric Acid 3.2, Calcium Level 7.0L, Phosphorus Level 3.0, Magnesium Level 1.6L, Total Bilirubin 0.5, Gamma Glutamyl Transpeptidase 15, Aspartate Amino Transf (AST/SGOT) 32, Alanine Aminotransferase (ALT/SGPT) 22, Alkaline Phosphatase 72, Troponin I 0.242H, Pro-B-Type Natriuretic Peptide 4787H , Total Protein 4.4L, Albumin 1.3L, Globulin 3.1, Albumin/Globulin Ratio 0.4L, Cortisol AM Sample [Pending] Height (Feet): 5 Height (Inches): 5.00 Weight (Pounds): 124 General Appearance: lethargic EENT: normal ENT inspection Neck: normal alignment Cardiovascular: normal peripheral pulses, normal rate, regular rhythm Respiratory/Chest: chest wall non-tender, lungs clear, normal breath sounds Abdomen: hypoactive bowel sounds Extremities: normal inspection Edema: no edema noted Arm (L), no edema noted Arm (R), no edema noted Leg (L), no edema noted Leg (R), no edema noted Pedal (L), no edema noted Pedal (R), no edema noted Generalized Neurologic: motor weakness Skin: normal pigmentation, warm/dry Jasmeet Reynoso DO Sep 24, 2018 06:44
[2018-09-24] MEDS: Pantoprazole Inj IVP SCH ×2 (09:02→21:26)
[2018-09-24] MEDS: Heparin 5000 units/ml inj SUBQ SCH ×2 (09:04→21:27)
--- NOTE | 2018-09-24 10:08 | Cardiac Electrophysiology PN ---
Assessment/Plan Assessment/Plan 1. S/P Septic and hemorrhagic shock with Lactic acidosis. On iv fluids, Abx and S/P PRBC 2. Sinus tachycardia with heart rate in 140s due to sepsis, anemia and dehydration. No fibrillation. EF of 75%. HR now in 90s 3. Troponin elevation due to renal failure. EF 75%. 4. Respiratory failure on the vent. S/P Tracheostomy 09/22/18 5. Rhabdomyolysis with CPK in thousands. May be contributing to renal failure. 6. Acute renal failure and severe hyperkalemia. FU by Dr. Smalls 7. Dysphagia, status post PEG placementWas dislodged. S/P exploratory laparotomy, repair of gastric perforation, evacuation of perisplenic abscess, splenectomy On TPN per Dr Smalls 8. GI bleed. S/P EGD by Dr Horton. S/p PRBCs DW RN Subjective Subjective In ICU on the Vent via tracheostomy. Had exploratory laparotomy, splenectomy, abdominal washout and tracheostomy yesterday. On TPN Objective Last 24 Hour Vital Signs Date Time Temp Pulse Resp B/P (MAP) Pulse Ox O2 Delivery O2 Flow Rate FiO2 09/24/18 09:00 97 17 136/82 99 Mechanical Ventilator 30 09/24/18 08:30 101 19 30 09/24/18 08:00 Mechanical Ventilator Mechanical Ventilator Mechanical Ventilator 09/24/18 08:00 98.9 100 18 148/82 100 Mechanical Ventilator 30 09/24/18 08:00 30 09/24/18 08:00 101 09/24/18 07:06 107 15 30 09/24/18 07:00 100 18 144/80 100 Mechanical Ventilator 30 09/24/18 06:00 102 17 146/81 100 Mechanical Ventilator 30 09/24/18 05:15 112 18 30 09/24/18 05:00 108 19 152/91 100 Mechanical Ventilator 30 09/24/18 04:00 101 09/24/18 04:00 Mechanical Ventilator Mechanical Ventilator Mechanical Ventilator 09/24/18 04:00 30 09/24/18 04:00 99.0 104 17 146/79 100 Mechanical Ventilator 30 09/24/18 03:15 98 20 30 09/24/18 03:00 104 17 138/81 100 Mechanical Ventilator 30 09/24/18 02:00 103 20 125/63 100 Mechanical Ventilator 30 09/24/18 02:00 98.0 105 17 141/75 100 Mechanical Ventilator 30 09/24/18 01:00 105 17 129/70 100 Mechanical Ventilator 30 09/24/18 00:53 105 16 30 09/24/18 00:00 100 09/24/18 00:00 Mechanical Ventilator Mechanical Ventilator Mechanical Ventilator 09/24/18 00:00 30 09/24/18 00:00 98.0 105 17 141/75 100 Mechanical Ventilator 30 09/23/18 23:08 101 16 30 09/23/18 23:00 106 17 116/68 100 Mechanical Ventilator 30 09/23/18 22:00 129/76 09/23/18 22:00 101 17 129/76 100 Mechanical Ventilator 30 09/23/18 21:22 102 15 Mechanical Ventilator 30 09/23/18 21:21 102 15 30 09/23/18 21:00 121/64 09/23/18 21:00 98 17 121/70 100 Mechanical Ventilator 30 09/23/18 20:30 99 17 118/72 100 Mechanical Ventilator 30 09/23/18 20:04 94 15 30 09/23/18 20:00 98.2 99 17 120/70 100 Mechanical Ventilator 30 09/23/18 20:00 30 09/23/18 20:00 120/70 09/23/18 20:00 100 09/23/18 20:00 Mechanical Ventilator Mechanical Ventilator Mechanical Ventilator 09/23/18 18:46 119/70 09/23/18 18:30 100 17 119/70 100 Mechanical Ventilator 30 09/23/18 18:00 102 19 125/67 100 Mechanical Ventilator 30 09/23/18 18:00 125/67 09/23/18 17:30 104 18 125/68 100 Mechanical Ventilator 30 09/23/18 17:00 118/58 09/23/18 17:00 104 16 118/58 100 Mechanical Ventilator 30 09/23/18 16:32 100 16 30 09/23/18 16:30 98.5 102 17 114/59 100 Mechanical Ventilator 30 09/23/18 16:00 100 17 122/64 100 Mechanical Ventilator 30 09/23/18 16:00 Mechanical Ventilator Mechanical Ventilator Mechanical Ventilator 09/23/18 16:00 30 09/23/18 16:00 117/64 09/23/18 16:00 30 09/23/18 15:34 102 09/23/18 15:30 102 17 106/56 100 Mechanical Ventilator 30 09/23/18 15:15 105 20 30 09/23/18 15:00 102 17 151/78 100 Mechanical Ventilator 30 09/23/18 15:00 113/62 09/23/18 14:30 104 18 105/63 100 Mechanical Ventilator 30 09/23/18 14:00 104/57 09/23/18 14:00 108 19 104/57 100 Mechanical Ventilator 30 09/23/18 13:30 105 18 106/55 100 Mechanical Ventilator 30 09/23/18 13:24 124 31 30 09/23/18 13:00 77/47 09/23/18 13:00 113 18 77/47 100 Mechanical Ventilator 30 09/23/18 12:30 118 21 85/50 100 Mechanical Ventilator 30 09/23/18 12:10 115 09/23/18 12:00 30 09/23/18 12:00 99.2 117 22 110/55 100 Mechanical Ventilator 30 09/23/18 12:00 Mechanical Ventilator Mechanical Ventilator Mechanical Ventilator 09/23/18 12:00 85/50 09/23/18 11:30 106 18 111/66 100 Mechanical Ventilator 30 09/23/18 11:05 113 14 30 09/23/18 11:00 102/59 09/23/18 11:00 110 17 102/59 100 Mechanical Ventilator 30 09/23/18 10:31 115 14 100 09/23/18 10:30 117 15 77/51 100 Mechanical Ventilator 30 Intake and Output 09/23/18 09/24/18 19:00 07:00 Intake Total 1982.46 ml 1131.72 ml Output Total 720 ml 930 ml Balance 1262.46 ml 201.72 ml IV Total 1982.46 ml 1131.72 ml Output Urine Total 340 ml 820 ml Drainage Total 380 ml 110 ml Laboratory Tests Test 09/23/18 10:30 09/24/18 05:20 09/24/18 08:28 White Blood Count 31.8 K/UL (4.8-10.8) #*H 24.4 K/UL (4.8-10.8) *H Red Blood Count 3.45 M/UL (4.70-6.10) L 2.57 M/UL (4.70-6.10) L Hemoglobin 10.1 G/DL (14.2-18.0) L 7.8 G/DL (14.2-18.0) L Hematocrit 31.2 % (42.0-52.0) L 22.8 % (42.0-52.0) L Mean Corpuscular Volume 90 FL (80-99) 89 FL (80-99) Mean Corpuscular Hemoglobin 29.3 PG (27.0-31.0) 30.3 PG (27.0-31.0) Mean Corpuscular Hemoglobin Concent 32.4 G/DL (32.0-36.0) 34.1 G/DL (32.0-36.0) Red Cell Distribution Width 13.9 % (11.6-14.8) 13.3 % (11.6-14.8) Platelet Count 396 K/UL (150-450) 343 K/UL (150-450) Mean Platelet Volume 6.5 FL (6.5-10.1) 6.0 FL (6.5-10.1) L Neutrophils (%) (Auto) % (45.0-75.0) % (45.0-75.0) Lymphocytes (%) (Auto) % (20.0-45.0) % (20.0-45.0) Monocytes (%) (Auto) % (1.0-10.0) % (1.0-10.0) Eosinophils (%) (Auto) % (0.0-3.0) % (0.0-3.0) Basophils (%) (Auto) % (0.0-2.0) % (0.0-2.0) Differential Total Cells Counted 100 100 Neutrophils % (Manual) 82 % (45-75) H 90 % (45-75) H Lymphocytes % (Manual) 11 % (20-45) L 5 % (20-45) L Monocytes % (Manual) 3 % (1-10) 3 % (1-10) Eosinophils % (Manual) 0 % (0-3) 0 % (0-3) Basophils % (Manual) 0 % (0-2) 0 % (0-2) Band Neutrophils 4 % (0-8) 2 % (0-8) Platelet Estimate Adequate Adequate Platelet Morphology Normal Normal Hypochromasia 1+ 1+ Sodium Level 148 MMOL/L (136-145) H Potassium Level 3.4 MMOL/L (3.5-5.1) L Chloride Level 120 MMOL/L (98-107) H Carbon Dioxide Level 15 MMOL/L (21-32) L Anion Gap 13 mmol/L (5-15) Blood Urea Nitrogen 12 mg/dL (7-18) Creatinine 2.0 MG/DL (0.55-1.30) H Estimat Glomerular Filtration Rate 34.3 mL/min (>60) Glucose Level 154 MG/DL (74-106) H Uric Acid 3.2 MG/DL (2.6-7.2) Calcium Level 7.0 MG/DL (8.5-10.1) L Phosphorus Level 3.0 MG/DL (2.5-4.9) Magnesium Level 1.6 MG/DL (1.8-2.4) L Total Bilirubin 0.5 MG/DL (0.2-1.0) Gamma Glutamyl Transpeptidase 15 U/L (5-85) Aspartate Amino Transf (AST/SGOT) 32 U/L (15-37) Alanine Aminotransferase (ALT/SGPT) 22 U/L (12-78) Alkaline Phosphatase 72 U/L (46-116) Troponin I 0.242 ng/mL (0.000-0.056) Pro-B-Type Natriuretic Peptide 4787 pg/mL (0-125) H Total Protein 4.4 G/DL (6.4-8.2) L Albumin 1.3 G/DL (3.4-5.0) L Globulin 3.1 g/dL Albumin/Globulin Ratio 0.4 (1.0-2.7) L Cortisol AM Sample Pending Arterial Blood pH 7.444 (7.350-7.450) Arterial Blood Partial Pressure CO2 25.9 mmHg (35.0-45.0) L Arterial Blood Partial Pressure O2 89.3 mmHg (75.0-100.0) Arterial Blood HCO3 17.4 mmol/L (22.0-26.0) *L Arterial Blood Oxygen Saturation 96.3 % (95-100) Arterial Blood Base Excess -5.9 (-2-2) L Harvey Test Positive Microbiology Date/Time Source Procedure Growth Status 09/21/18 17:10 Blood Blood Culture - Preliminary NO GROWTH AFTER 24 HOURS Resulted 09/21/18 13:30 Blood Blood Culture - Preliminary NO GROWTH AFTER 24 HOURS Resulted 09/21/18 18:00 Stool Clostridium difficile Toxin Assay - Final Complete 09/21/18 18:00 Urine,Clean Catch Urine Culture - Preliminary YEAST Resulted 09/23/18 21:20 Hip Right Gram Stain - Final Resulted 09/23/18 21:20 Hip Right Wound Culture Pending Resulted Objective HEENT: S/P tracheostomy. No JVD LUNGS: Coarse rhonchi. CARDIOVASCULAR: Tachycardic S1 and S2. ABDOMEN: Post op covered with dressing EXTREMITIES: No pitting edema. Jasbir Madsen MD Sep 24, 2018 10:08
--- NOTE | 2018-09-24 10:25 | Pulmonolgy Critical Care Note ---
Critical Care - Asmt/Plan Problems: (1) Acute respiratory failure (2) Septic shock (3) ATN (acute tubular necrosis) (4) Metabolic acidosis (5) Gastric rupture Respiratory: monitor respiratory rate, adjust FIO2, CXR Cardiac: continue to monitor HR/BP Renal: F/U I&O, check electrolytes Infectious Disease: check cultures Gastrointestinal: continue feedings/current rate, other - on NPO Endocrine: monitor blood sugar Hematologic: transfuse if hgb<8.5 Neurologic: PRN Ativan, PRN Morphine, keep patient comfortable Prophylaxis: Protonix, Heparin Time Spent (Minutes): 40 Notes Reviewed: vulnerability assessment analyst, cardio, renal, ID, GI Discussed with: nurses, consultants, telehealth case managerpractice managers - Objective Last 24 Hour Vital Signs Date Time Temp Pulse Resp B/P (MAP) Pulse Ox O2 Delivery O2 Flow Rate FiO2 09/24/18 10:00 90 17 130/80 99 Mechanical Ventilator 30 09/24/18 09:00 97 17 136/82 99 Mechanical Ventilator 30 09/24/18 08:30 101 19 30 09/24/18 08:00 Mechanical Ventilator Mechanical Ventilator Mechanical Ventilator 09/24/18 08:00 98.9 100 18 148/82 100 Mechanical Ventilator 30 09/24/18 08:00 30 09/24/18 08:00 101 09/24/18 07:06 107 15 30 09/24/18 07:00 100 18 144/80 100 Mechanical Ventilator 30 09/24/18 06:00 102 17 146/81 100 Mechanical Ventilator 30 09/24/18 05:15 112 18 30 09/24/18 05:00 108 19 152/91 100 Mechanical Ventilator 30 09/24/18 04:00 101 09/24/18 04:00 Mechanical Ventilator Mechanical Ventilator Mechanical Ventilator 09/24/18 04:00 30 09/24/18 04:00 99.0 104 17 146/79 100 Mechanical Ventilator 30 09/24/18 03:15 98 20 30 09/24/18 03:00 104 17 138/81 100 Mechanical Ventilator 30 09/24/18 02:00 103 20 125/63 100 Mechanical Ventilator 30 09/24/18 02:00 98.0 105 17 141/75 100 Mechanical Ventilator 30 09/24/18 01:00 105 17 129/70 100 Mechanical Ventilator 30 09/24/18 00:53 105 16 30 09/24/18 00:00 100 2/14/19 00:00 Mechanical Ventilator Mechanical Ventilator Mechanical Ventilator 09/24/18 00:00 30 09/24/18 00:00 98.0 105 17 141/75 100 Mechanical Ventilator 30 09/23/18 23:08 101 16 30 09/23/18 23:00 106 17 116/68 100 Mechanical Ventilator 30 09/23/18 22:00 129/76 09/23/18 22:00 101 17 129/76 100 Mechanical Ventilator 30 09/23/18 21:22 102 15 Mechanical Ventilator 30 09/23/18 21:21 102 15 30 09/23/18 21:00 121/64 09/23/18 21:00 98 17 121/70 100 Mechanical Ventilator 30 09/23/18 20:30 99 17 118/72 100 Mechanical Ventilator 30 09/23/18 20:04 94 15 30 09/23/18 20:00 98.2 99 17 120/70 100 Mechanical Ventilator 30 09/23/18 20:00 30 09/23/18 20:00 120/70 09/23/18 20:00 100 09/23/18 20:00 Mechanical Ventilator Mechanical Ventilator Mechanical Ventilator 09/23/18 18:46 119/70 09/23/18 18:30 100 17 119/70 100 Mechanical Ventilator 30 09/23/18 18:00 102 19 125/67 100 Mechanical Ventilator 30 09/23/18 18:00 125/67 09/23/18 17:30 104 18 125/68 100 Mechanical Ventilator 30 09/23/18 17:00 118/58 09/23/18 17:00 104 16 118/58 100 Mechanical Ventilator 30 09/23/18 16:32 100 16 30 09/23/18 16:30 98.5 102 17 114/59 100 Mechanical Ventilator 30 09/23/18 16:00 100 17 122/64 100 Mechanical Ventilator 30 09/23/18 16:00 Mechanical Ventilator Mechanical Ventilator Mechanical Ventilator 09/23/18 16:00 30 09/23/18 16:00 117/64 09/23/18 16:00 30 09/23/18 15:34 102 09/23/18 15:30 102 17 106/56 100 Mechanical Ventilator 30 09/23/18 15:15 105 20 30 09/23/18 15:00 102 17 151/78 100 Mechanical Ventilator 30 2/13/19 15:00 113/62 09/23/18 14:30 104 18 105/63 100 Mechanical Ventilator 30 09/23/18 14:00 104/57 09/23/18 14:00 108 19 104/57 100 Mechanical Ventilator 30 09/23/18 13:30 105 18 106/55 100 Mechanical Ventilator 30 09/23/18 13:24 124 31 30 09/23/18 13:00 77/47 09/23/18 13:00 113 18 77/47 100 Mechanical Ventilator 30 09/23/18 12:30 118 21 85/50 100 Mechanical Ventilator 30 09/23/18 12:10 115 09/23/18 12:00 30 09/23/18 12:00 99.2 117 22 110/55 100 Mechanical Ventilator 30 09/23/18 12:00 Mechanical Ventilator Mechanical Ventilator Mechanical Ventilator 09/23/18 12:00 85/50 09/23/18 11:30 106 18 111/66 100 Mechanical Ventilator 30 09/23/18 11:05 113 14 30 09/23/18 11:00 102/59 09/23/18 11:00 110 17 102/59 100 Mechanical Ventilator 30 09/23/18 10:31 115 14 100 09/23/18 10:30 117 15 77/51 100 Mechanical Ventilator 30 Status: awake Condition: critical HEENT: atraumatic Neck: full ROM Heart: HR/BP stable Abdomen: soft, active bowel sounds Extremities: no C/C/E, edema Decubiti: location Micro: Microbiology Date/Time Source Procedure Growth Status 09/21/18 17:10 Blood Blood Culture - Preliminary NO GROWTH AFTER 24 HOURS Resulted 09/21/18 13:30 Blood Blood Culture - Preliminary NO GROWTH AFTER 24 HOURS Resulted 09/21/18 18:00 Stool Clostridium difficile Toxin Assay - Final Complete 09/21/18 18:00 Urine,Clean Catch Urine Culture - Preliminary YEAST Resulted 09/23/18 21:20 Hip Right Gram Stain - Final Resulted 09/23/18 21:20 Hip Right Wound Culture Pending Resulted Accucheck: 170 Critical Care - Subjective Condition: critical EKG Rhythm: Sinus Rhythm FI02: 30 Vent Support Breath Rate: 12 Vent Support Mode: AC Vent Tidal Volume: 600 Sputum Amount: Small PEEP: 0.0 PIP: 18 Tube Feeding Amount: 0 I&O: Intake and Output 09/23/18 09/24/18 19:00 07:00 Intake Total 1982.46 ml 1131.72 ml Output Total 720 ml 930 ml Balance 1262.46 ml 201.72 ml IV Total 1982.46 ml 1131.72 ml Output Urine Total 340 ml 820 ml Drainage Total 380 ml 110 ml CXR: trach intact Labs: Laboratory Tests Test 09/23/18 10:30 09/24/18 05:20 09/24/18 08:28 White Blood Count 31.8 K/UL (4.8-10.8) #*H 24.4 K/UL (4.8-10.8) *H Red Blood Count 3.45 M/UL (4.70-6.10) L 2.57 M/UL (4.70-6.10) L Hemoglobin 10.1 G/DL (14.2-18.0) L 7.8 G/DL (14.2-18.0) L Hematocrit 31.2 % (42.0-52.0) L 22.8 % (42.0-52.0) L Mean Corpuscular Volume 90 FL (80-99) 89 FL (80-99) Mean Corpuscular Hemoglobin 29.3 PG (27.0-31.0) 30.3 PG (27.0-31.0) Mean Corpuscular Hemoglobin Concent 32.4 G/DL (32.0-36.0) 34.1 G/DL (32.0-36.0) Red Cell Distribution Width 13.9 % (11.6-14.8) 13.3 % (11.6-14.8) Platelet Count 396 K/UL (150-450) 343 K/UL (150-450) Mean Platelet Volume 6.5 FL (6.5-10.1) 6.0 FL (6.5-10.1) L Neutrophils (%) (Auto) % (45.0-75.0) % (45.0-75.0) Lymphocytes (%) (Auto) % (20.0-45.0) % (20.0-45.0) Monocytes (%) (Auto) % (1.0-10.0) % (1.0-10.0) Eosinophils (%) (Auto) % (0.0-3.0) % (0.0-3.0) Basophils (%) (Auto) % (0.0-2.0) % (0.0-2.0) Differential Total Cells Counted 100 100 Neutrophils % (Manual) 82 % (45-75) H 90 % (45-75) H Lymphocytes % (Manual) 11 % (20-45) L 5 % (20-45) L Monocytes % (Manual) 3 % (1-10) 3 % (1-10) Eosinophils % (Manual) 0 % (0-3) 0 % (0-3) Basophils % (Manual) 0 % (0-2) 0 % (0-2) Band Neutrophils 4 % (0-8) 2 % (0-8) Platelet Estimate Adequate Adequate Platelet Morphology Normal Normal Hypochromasia 1+ 1+ Sodium Level 148 MMOL/L (136-145) H Potassium Level 3.4 MMOL/L (3.5-5.1) L Chloride Level 120 MMOL/L (98-107) H Carbon Dioxide Level 15 MMOL/L (21-32) L Anion Gap 13 mmol/L (5-15) Blood Urea Nitrogen 12 mg/dL (7-18) Creatinine 2.0 MG/DL (0.55-1.30) H Estimat Glomerular Filtration Rate 34.3 mL/min (>60) Glucose Level 154 MG/DL (74-106) H Uric Acid 3.2 MG/DL (2.6-7.2) Calcium Level 7.0 MG/DL (8.5-10.1) L Phosphorus Level 3.0 MG/DL (2.5-4.9) Magnesium Level 1.6 MG/DL (1.8-2.4) L Total Bilirubin 0.5 MG/DL (0.2-1.0) Gamma Glutamyl Transpeptidase 15 U/L (5-85) Aspartate Amino Transf (AST/SGOT) 32 U/L (15-37) Alanine Aminotransferase (ALT/SGPT) 22 U/L (12-78) Alkaline Phosphatase 72 U/L (46-116) Troponin I 0.242 ng/mL (0.000-0.056) Pro-B-Type Natriuretic Peptide 4787 pg/mL (0-125) H Total Protein 4.4 G/DL (6.4-8.2) L Albumin 1.3 G/DL (3.4-5.0) L Globulin 3.1 g/dL Albumin/Globulin Ratio 0.4 (1.0-2.7) L Cortisol AM Sample Pending Arterial Blood pH 7.444 (7.350-7.450) Arterial Blood Partial Pressure CO2 25.9 mmHg (35.0-45.0) L Arterial Blood Partial Pressure O2 89.3 mmHg (75.0-100.0) Arterial Blood HCO3 17.4 mmol/L (22.0-26.0) *L Arterial Blood Oxygen Saturation 96.3 % (95-100) Arterial Blood Base Excess -5.9 (-2-2) L Harvey Test Positive Po Li MD Sep 24, 2018 10:25
--- NOTE | 2018-09-24 10:59 | Nephrology Progress Note ---
Assessment/Plan Problem List: (1) ATN (acute tubular necrosis) Assessment: Cr rising post op but lowering (2) Septic shock (3) Lactic acid acidosis (4) Metabolic acidosis (5) Hyperkalemia (6) G tube feedings (7) Acute respiratory failure Assessment post op 09/22/18: Trach, Splenectomy, Perf.... over all improved: cr rising again presented with Shock , likely septic Acute renal failure resolved Acute metabolic acidosis resolved Hyperkalemia PEG Recent Pneumonia Plan plan: on tpn now trached 09/22 post laparatomy 09/22 off pressors pulmonary support Fluid challenge as needed Silva K and Phos and Mag supplement as needed antibiotics monitor renal parameters and ABG poor prognosis Subjective ROS Limited/Unobtainable: Yes Objective Objective Last 24 Hour Vital Signs Date Time Temp Pulse Resp B/P (MAP) Pulse Ox O2 Delivery O2 Flow Rate FiO2 09/24/18 10:00 90 17 130/80 99 Mechanical Ventilator 30 09/24/18 09:00 97 17 136/82 99 Mechanical Ventilator 30 09/24/18 08:30 101 19 30 09/24/18 08:00 Mechanical Ventilator Mechanical Ventilator Mechanical Ventilator 09/24/18 08:00 98.9 100 18 148/82 100 Mechanical Ventilator 30 09/24/18 08:00 30 09/24/18 08:00 101 09/24/18 07:06 107 15 30 09/24/18 07:00 100 18 144/80 100 Mechanical Ventilator 30 09/24/18 06:00 102 17 146/81 100 Mechanical Ventilator 30 09/24/18 05:15 112 18 30 09/24/18 05:00 108 19 152/91 100 Mechanical Ventilator 30 09/24/18 04:00 101 09/24/18 04:00 Mechanical Ventilator Mechanical Ventilator Mechanical Ventilator 09/24/18 04:00 30 09/24/18 04:00 99.0 104 17 146/79 100 Mechanical Ventilator 30 09/24/18 03:15 98 20 30 09/24/18 03:00 104 17 138/81 100 Mechanical Ventilator 30 09/24/18 02:00 103 20 125/63 100 Mechanical Ventilator 30 09/24/18 02:00 98.0 105 17 141/75 100 Mechanical Ventilator 30 09/24/18 01:00 105 17 129/70 100 Mechanical Ventilator 30 2/14/19 00:53 105 16 30 09/24/18 00:00 100 09/24/18 00:00 Mechanical Ventilator Mechanical Ventilator Mechanical Ventilator 09/24/18 00:00 30 09/24/18 00:00 98.0 105 17 141/75 100 Mechanical Ventilator 30 09/23/18 23:08 101 16 30 09/23/18 23:00 106 17 116/68 100 Mechanical Ventilator 30 09/23/18 22:00 129/76 09/23/18 22:00 101 17 129/76 100 Mechanical Ventilator 30 09/23/18 21:22 102 15 Mechanical Ventilator 30 09/23/18 21:21 102 15 30 09/23/18 21:00 121/64 09/23/18 21:00 98 17 121/70 100 Mechanical Ventilator 30 09/23/18 20:30 99 17 118/72 100 Mechanical Ventilator 30 09/23/18 20:04 94 15 30 09/23/18 20:00 98.2 99 17 120/70 100 Mechanical Ventilator 30 09/23/18 20:00 30 09/23/18 20:00 120/70 09/23/18 20:00 100 09/23/18 20:00 Mechanical Ventilator Mechanical Ventilator Mechanical Ventilator 09/23/18 18:46 119/70 09/23/18 18:30 100 17 119/70 100 Mechanical Ventilator 30 09/23/18 18:00 102 19 125/67 100 Mechanical Ventilator 30 09/23/18 18:00 125/67 09/23/18 17:30 104 18 125/68 100 Mechanical Ventilator 30 09/23/18 17:00 118/58 09/23/18 17:00 104 16 118/58 100 Mechanical Ventilator 30 09/23/18 16:32 100 16 30 09/23/18 16:30 98.5 102 17 114/59 100 Mechanical Ventilator 30 09/23/18 16:00 100 17 122/64 100 Mechanical Ventilator 30 09/23/18 16:00 Mechanical Ventilator Mechanical Ventilator Mechanical Ventilator 09/23/18 16:00 30 09/23/18 16:00 117/64 09/23/18 16:00 30 09/23/18 15:34 102 09/23/18 15:30 102 17 106/56 100 Mechanical Ventilator 30 09/23/18 15:15 105 20 30 09/23/18 15:00 102 17 151/78 100 Mechanical Ventilator 30 09/23/18 15:00 113/62 09/23/18 14:30 104 18 105/63 100 Mechanical Ventilator 30 09/23/18 14:00 104/57 09/23/18 14:00 108 19 104/57 100 Mechanical Ventilator 30 09/23/18 13:30 105 18 106/55 100 Mechanical Ventilator 30 09/23/18 13:24 124 31 30 09/23/18 13:00 77/47 09/23/18 13:00 113 18 77/47 100 Mechanical Ventilator 30 09/23/18 12:30 118 21 85/50 100 Mechanical Ventilator 30 09/23/18 12:10 115 09/23/18 12:00 30 09/23/18 12:00 99.2 117 22 110/55 100 Mechanical Ventilator 30 09/23/18 12:00 Mechanical Ventilator Mechanical Ventilator Mechanical Ventilator 09/23/18 12:00 85/50 09/23/18 11:30 106 18 111/66 100 Mechanical Ventilator 30 09/23/18 11:05 113 14 30 09/23/18 11:00 102/59 09/23/18 11:00 110 17 102/59 100 Mechanical Ventilator 30 Intake and Output 09/23/18 09/24/18 19:00 07:00 Intake Total 1982.46 ml 1131.72 ml Output Total 720 ml 930 ml Balance 1262.46 ml 201.72 ml IV Total 1982.46 ml 1131.72 ml Output Urine Total 340 ml 820 ml Drainage Total 380 ml 110 ml Laboratory Tests 09/24/18 05:20: White Blood Count 24.4*H, Red Blood Count 2.57L, Hemoglobin 7.8L, Hematocrit 22.8L, Mean Corpuscular Volume 89, Mean Corpuscular Hemoglobin 30.3, Mean Corpuscular Hemoglobin Concent 34.1, Red Cell Distribution Width 13.3, Platelet Count 343, Mean Platelet Volume 6.0L, Neutrophils (%) (Auto) , Lymphocytes (%) ( Auto) , Monocytes (%) (Auto) , Eosinophils (%) (Auto) , Basophils (%) (Auto) , Differential Total Cells Counted 100, Neutrophils % (Manual) 90H, Lymphocytes % (Manual) 5L, Monocytes % (Manual) 3, Eosinophils % (Manual) 0, Basophils % ( Manual) 0, Band Neutrophils 2, Platelet Estimate Adequate, Platelet Morphology Normal, Hypochromasia 1+, Sodium Level 148H, Potassium Level 3.4L, Chloride Level 120H, Carbon Dioxide Level 15L, Anion Gap 13, Blood Urea Nitrogen 12, Creatinine 2.0H, Estimat Glomerular Filtration Rate 34.3, Glucose Level 154H, Uric Acid 3.2, Calcium Level 7.0L, Phosphorus Level 3.0, Magnesium Level 1.6L, Total Bilirubin 0.5, Gamma Glutamyl Transpeptidase 15, Aspartate Amino Transf ( AST/SGOT) 32, Alanine Aminotransferase (ALT/SGPT) 22, Alkaline Phosphatase 72, Troponin I 0.242H, Pro-B-Type Natriuretic Peptide 4787H, Total Protein 4.4L, Albumin 1.3L, Globulin 3.1, Albumin/Globulin Ratio 0.4L, Cortisol AM Sample [ Pending] 09/24/18 08:28: Arterial Blood pH 7.444, Arterial Blood Partial Pressure CO2 25.9L, Arterial Blood Partial Pressure O2 89.3, Arterial Blood HCO3 17.4*L, Arterial Blood Oxygen Saturation 96.3, Arterial Blood Base Excess -5.9L, Harvey Test Positive Height (Feet): 5 Height (Inches): 5.00 Weight (Pounds): 124 EENT: other - trached Cardiovascular: tachycardia Respiratory/Chest: decreased breath sounds Abdomen: distended Objective no other changes Josesito Smalls MD Sep 24, 2018 10:59
--- NOTE | 2018-09-24 11:28 | Diagnostic Imaging Report ---
Indication: Dyspnea Technique: One view of the chest Comparison: none Findings: Interim exchange of endotracheal tube for a tracheostomy. Previously demonstrated gastrostomy tube is no longer evident. What is presumably a surgical drain is seen in the left upper quadrant. Bilateral pleural effusions and bilateral basilar atelectatic changes remain. PICC remains, slightly retracted, tip now at the innominate venous confluence Impression: Persistent low lung volumes and bilateral pleural effusions, unchanged since 09/22/2018 Interim exchange of endotracheal tube for tracheostomy Postsurgical changes of the upper abdomen as described
[2018-09-24] MEDS ORDERED: Loperamide 2mg cap ORAL PRN (12:15)
[2018-09-24] MEDS ORDERED: Miralax 17gm pkt ORAL PRN (12:15)
[2018-09-24] MEDS ORDERED: Acetaminophen 650mg/20.3ml NG PRN (12:15)
[2018-09-24] MEDS ORDERED: Tubing IV Secondary IV ONE (15:39)
[2018-09-24] MEDS ORDERED: Sterile Water For Inj 1000ml IV ONE (15:39)
--- NOTE | 2018-09-24 15:46 | Infectious Diseases Prog Note ---
Assessment/Plan Assessment/Plan 62 yo male with PMHx of Quadriplegia with G-tube, HTN, DM and Schizophenia who was sent to the ED fromhis long term for AMS. Displaced GT with perforation c/w peritonitis and hematoma/abscess formation -09/22 SP Exploratory laparotomy. Repair of gastric perforation. Evacuation of abdominal omental / lesser sac hematoma. Evacuation of perisplenic hematoma/ abscess. Omentectomy. Splenectomy. Abdominal washout. Tracheostomy. -09/21 CT abd/p: The gastrostomy tube appears to be partially intraluminal and partially communicate with a large intramural collection involving mostly the inferior posterior wall of the stomach. There is some anterior wall pneumatosis. Contrast within the collection most likely represents instilled enteric contrast, but could also represent extravasated vascular contrast. There is evidence of rupture of this collection into the peritoneal space, with extravasated contrast in the left upper quadrant. There is anterior gastric wall intramural pneumatosis as well as a small amount of free extraluminal gas. Moderate ascites. Enhancement of much of the peritoneum raises concern for peritonitis. There may also be loculated intraperitoneal collections which could represent abscesses, predominantly adjacent to the tip of the right hepatic lobe, subcapsular in the spleen, and within the left upper quadrant. Thick-walled sigmoid colon, transverse colon and equivocally the proximal jejunum. Likely reactive related to the above, but could also indicate enteritis /colitis changes Septic shock 2ry to above, SP Leukocytosis, recurrent worsened-after procedure; improving -09/20 ucx NTD; u/a neg -09/19 CXR: Bilateral pleural effusions and bibasilar atelectasis/airspace disease are stable. Low grade fever; improving Diarrhea- -Cdiff neg GIB Sepsis - Probably PNA , s/p Rx 09/22 CXR: Bilateral pleural effusions, basilar atelectatic changes, and interstitial congestive changes are stable CXR 09/07/18 - possible left sided consolidation Inf neg 09/07/18 BCx 2/2 sets diphteroids, 1/2 setse S. epi (contaminants); 09/11 Bcx NTD 09/07/18 SCx - NF 09/07/18 UCx - Neg 09/09 Cdiff neg HTN DM Schizophenia Quadriplegia. G- tube dependent Plan -Continue Zosyn #3 and add IV Micafungin #2 in the setting of stomach perforation and intraabdominal fluid collections -f/u Bcx x2, Urine Cx - 09/19/18 SP Zosyn #10 - 09/17/18 SP Vancmocyin #10 - 09/09/18 Ertapenem #3 - Monitor CBC and temps -Sx f/u -wound care We will continue to follow the patient during this hospitalization. Subjective Allergies: Coded Allergies: No Known Allergies (Unverified , 08/14/18) Subjective afebrile in 36hrs wbc improving transferred out of ICU to [facility] Objective Vital Signs Last 24 Hour Vital Signs Date Time Temp Pulse Resp B/P (MAP) Pulse Ox O2 Delivery O2 Flow Rate FiO2 09/24/18 13:08 92 22 30 09/24/18 12:00 93 09/24/18 12:00 99.6 89 18 141/95 99 Mechanical Ventilator 30 09/24/18 12:00 Mechanical Ventilator Mechanical Ventilator Mechanical Ventilator 09/24/18 12:00 30 09/24/18 11:27 98 20 30 09/24/18 11:00 87 17 125/82 99 Mechanical Ventilator 30 09/24/18 10:00 90 17 130/80 99 Mechanical Ventilator 30 09/24/18 09:00 97 17 136/82 99 Mechanical Ventilator 30 09/24/18 08:30 101 19 30 09/24/18 08:00 Mechanical Ventilator Mechanical Ventilator Mechanical Ventilator 09/24/18 08:00 98.9 100 18 148/82 100 Mechanical Ventilator 30 09/24/18 08:00 30 09/24/18 08:00 101 09/24/18 07:06 107 15 30 09/24/18 07:00 100 18 144/80 100 Mechanical Ventilator 30 09/24/18 06:00 102 17 146/81 100 Mechanical Ventilator 30 09/24/18 05:15 112 18 30 09/24/18 05:00 108 19 152/91 100 Mechanical Ventilator 09/24/18 04:00 101 09/24/18 04:00 Mechanical Ventilator Mechanical Ventilator Mechanical Ventilator 09/24/18 04:00 30 09/24/18 04:00 99.0 104 17 146/79 100 Mechanical Ventilator 30 09/24/18 03:15 98 20 30 09/24/18 03:00 104 17 138/81 100 Mechanical Ventilator 30 09/24/18 02:00 103 20 125/63 100 Mechanical Ventilator 30 09/24/18 02:00 98.0 105 17 141/75 100 Mechanical Ventilator 30 09/24/18 01:00 105 17 129/70 100 Mechanical Ventilator 30 09/24/18 00:53 105 16 30 09/24/18 00:00 100 09/24/18 00:00 Mechanical Ventilator Mechanical Ventilator Mechanical Ventilator 09/24/18 00:00 30 09/24/18 00:00 98.0 105 17 141/75 100 Mechanical Ventilator 30 09/23/18 23:08 101 16 30 09/23/18 23:00 106 17 116/68 100 Mechanical Ventilator 30 09/23/18 22:00 129/76 09/23/18 22:00 101 17 129/76 100 Mechanical Ventilator 30 09/23/18 21:22 102 15 Mechanical Ventilator 30 09/23/18 21:21 102 15 30 09/23/18 21:00 121/64 09/23/18 21:00 98 17 121/70 100 Mechanical Ventilator 30 09/23/18 20:30 99 17 118/72 100 Mechanical Ventilator 30 09/23/18 20:04 94 15 30 09/23/18 20:00 98.2 99 17 120/70 100 Mechanical Ventilator 30 09/23/18 20:00 30 09/23/18 20:00 120/70 09/23/18 20:00 100 09/23/18 20:00 Mechanical Ventilator Mechanical Ventilator Mechanical Ventilator 09/23/18 18:46 119/70 09/23/18 18:30 100 17 119/70 100 Mechanical Ventilator 30 09/23/18 18:00 102 19 125/67 100 Mechanical Ventilator 30 09/23/18 18:00 125/67 09/23/18 17:30 104 18 125/68 100 Mechanical Ventilator 30 09/23/18 17:00 118/58 09/23/18 17:00 104 16 118/58 100 Mechanical Ventilator 30 09/23/18 16:32 100 16 30 09/23/18 16:30 98.5 102 17 114/59 100 Mechanical Ventilator 30 09/23/18 16:00 100 17 122/64 100 Mechanical Ventilator 30 09/23/18 16:00 Mechanical Ventilator Mechanical Ventilator Mechanical Ventilator 09/23/18 16:00 30 09/23/18 16:00 117/64 09/23/18 16:00 30 Height (Feet): 5 Height (Inches): 5.00 Weight (Pounds): 124 Objective Gen: NAD, On vent satting well 35% O2 HEENT: NCAT, MMM, EOMI LUNGS: CTAB, No W/C, CARDS: RRR, S1, S2, No M/R/G, ABD: Soft, NT, distended, + BS,G tube (No E/P) NEURO: Intubated, not following Microbiology Date/Time Source Procedure Growth Status 09/23/18 12:00 Blood Blood Culture - Preliminary NO GROWTH AFTER 24 HOURS Resulted 09/21/18 17:10 Blood Blood Culture - Preliminary NO GROWTH AFTER 48 HOURS Resulted 09/21/18 18:00 Stool Clostridium difficile Toxin Assay - Final Complete 09/21/18 18:00 Urine,Clean Catch Urine Culture - Final Nicky Tropicalis Complete 09/23/18 21:20 Hip Right Gram Stain - Final Resulted 09/23/18 21:20 Hip Right Wound Culture Pending Resulted Laboratory Tests Test 09/24/18 05:20 09/24/18 08:28 White Blood Count 24.4 K/UL (4.8-10.8) *H Red Blood Count 2.57 M/UL (4.70-6.10) L Hemoglobin 7.8 G/DL (14.2-18.0) L Hematocrit 22.8 % (42.0-52.0) L Mean Corpuscular Volume 89 FL (80-99) Mean Corpuscular Hemoglobin 30.3 PG (27.0-31.0) Mean Corpuscular Hemoglobin Concent 34.1 G/DL (32.0-36.0) Red Cell Distribution Width 13.3 % (11.6-14.8) Platelet Count 343 K/UL (150-450) Mean Platelet Volume 6.0 FL (6.5-10.1) L Neutrophils (%) (Auto) % (45.0-75.0) Lymphocytes (%) (Auto) % (20.0-45.0) Monocytes (%) (Auto) % (1.0-10.0) Eosinophils (%) (Auto) % (0.0-3.0) Basophils (%) (Auto) % (0.0-2.0) Differential Total Cells Counted 100 Neutrophils % (Manual) 90 % (45-75) H Lymphocytes % (Manual) 5 % (20-45) L Monocytes % (Manual) 3 % (1-10) Eosinophils % (Manual) 0 % (0-3) Basophils % (Manual) 0 % (0-2) Band Neutrophils 2 % (0-8) Platelet Estimate Adequate Platelet Morphology Normal Hypochromasia 1+ Sodium Level 148 MMOL/L (136-145) H Potassium Level 3.4 MMOL/L (3.5-5.1) L Chloride Level 120 MMOL/L (98-107) H Carbon Dioxide Level 15 MMOL/L (21-32) L Anion Gap 13 mmol/L (5-15) Blood Urea Nitrogen 12 mg/dL (7-18) Creatinine 2.0 MG/DL (0.55-1.30) H Estimat Glomerular Filtration Rate 34.3 mL/min (>60) Glucose Level 154 MG/DL (74-106) H Uric Acid 3.2 MG/DL (2.6-7.2) Calcium Level 7.0 MG/DL (8.5-10.1) L Phosphorus Level 3.0 MG/DL (2.5-4.9) Magnesium Level 1.6 MG/DL (1.8-2.4) L Total Bilirubin 0.5 MG/DL (0.2-1.0) Gamma Glutamyl Transpeptidase 15 U/L (5-85) Aspartate Amino Transf (AST/SGOT) 32 U/L (15-37) Alanine Aminotransferase (ALT/SGPT) 22 U/L (12-78) Alkaline Phosphatase 72 U/L (46-116) Troponin I 0.242 ng/mL (0.000-0.056) C-Reactive Protein, Quantitative 37.8 mg/dL (0.00-0.90) H Pro-B-Type Natriuretic Peptide 4787 pg/mL (0-125) H Total Protein 4.4 G/DL (6.4-8.2) L Albumin 1.3 G/DL (3.4-5.0) L Globulin 3.1 g/dL Albumin/Globulin Ratio 0.4 (1.0-2.7) L Cortisol AM Sample Pending Arterial Blood pH 7.444 (7.350-7.450) Arterial Blood Partial Pressure CO2 25.9 mmHg (35.0-45.0) L Arterial Blood Partial Pressure O2 89.3 mmHg (75.0-100.0) Arterial Blood HCO3 17.4 mmol/L (22.0-26.0) *L Arterial Blood Oxygen Saturation 96.3 % (95-100) Arterial Blood Base Excess -5.9 (-2-2) L Harvey Test Positive Current Medications Medications (Trade) Dose Ordered Sig/Julito Route PRN Reason Start Time Stop Time Status Last Admin Dose Admin Acetaminophen (Tylenol) 650 mg Q4H PRN NG Mild Pain/Temp > 100.5 09/24/18 12:15 10/08/18 12:14 Chlorhexidine Gluconate (Camila-Hex 2%) 1 applic DAILY@2000 TOPIC 09/24/18 20:00 10/15/18 19:59 Dextrose (Dextrose 50%) 25 ml Q30M PRN IV Hypoglycemia 09/24/18 12:30 10/08/18 13:29 Dextrose (Dextrose 50%) 50 ml Q30M PRN IV Hypoglycemia 09/24/18 12:30 10/08/18 13:29 Fat Emulsion Intravenous 216 ml/Amino Acids/ Electrolytes/ Dextrose 1,608 ml @ 67 mls/hr Q24H IV 09/24/18 20:00 10/23/18 19:59 Heparin Sodium (Porcine) (Heparin 5000 units/ml) 5,000 units EVERY 12 HOURS SUBQ 09/24/18 21:00 10/07/18 20:59 Insulin Aspart (NovoLOG) Q6HR SUBQ 09/24/18 12:00 10/08/18 11:59 09/24/18 13:57 Loperamide HCl (Imodium) 4 mg TIDPRN PRN ORAL Diarrhea 09/24/18 12:15 10/10/18 12:14 Magnesium Sulfate 100 ml @ 100 mls/hr Q1H IVPB 09/24/18 14:00 09/24/18 17:59 09/24/18 14:06 Micafungin Sodium 100 mg/Sodium Chloride 110 ml @ 110 mls/hr Q24H IVPB 09/24/18 18:00 09/30/18 17:59 Ondansetron HCl (Zofran) 4 mg Q6H PRN IVP Nausea & Vomiting 09/24/18 12:15 10/07/18 12:14 Pantoprazole (Protonix) 40 mg Q12HR IVP 09/24/18 21:00 10/08/18 08:59 Phytonadione (Vitamin K) 10 mg QWEEK SUBQ 09/30/18 09:00 10/30/18 08:59 Piperacillin Sod/ Tazobactam Sod 3.375 gm/Sodium Chloride 110 ml @ 27.5 mls/hr EVERY 8 HOURS IVPB 09/24/18 14:00 09/27/18 21:59 09/24/18 14:53 Polyethylene Glycol (Miralax) 17 gm DAILYPRN PRN ORAL Constipation 09/24/18 12:15 10/07/18 12:14 Risperidone (RisperDAL) 0.25 mg QHS ORAL 09/24/18 21:00 10/10/18 20:59 Sodium Chloride 500 ml @ 999 mls/hr Q31M PRN IV SBP<90mmHg 09/24/18 12:15 10/08/18 10:59 Kell Larkin M.D. Sep 24, 2018 15:46
--- NOTE | 2018-09-24 17:30 | Progress Note ---
DATE: 09/24/2018 SUBJECTIVE: This is a 62-year-old male, still in the ICU, still has altered mental status and confusion. Cognition has declined below his baseline. We will continue to prevent any further decline in his cognition. DIAGNOSIS: Paranoid schizophrenia. PLAN: Continue treatment . Chart reviewed and discussed with staff. Virgie Mcdermott M.D. DR: LUCIAN JOB#: [id number] CC:
[2018-09-24] MEDS: Micafungin 100 MG in NS 110 ML IVPB SCH (19:14)
[2018-09-24] MEDS ORDERED: TPN IV SCH (20:00)
[2018-09-24] MEDS ORDERED: FAT EMULSION 20% IV SCH (20:00)
[2018-09-24] MEDS ORDERED: Norepinephrine Bitartrate 8 MG in D5W 500ml 550 ML IV SCH (21:00)
[2018-09-24] MEDS: Dyna-Hex 2% Top Sol 2oz TOPIC SCH (21:25)
[2018-09-25] VITALS: BP 129/85
[2018-09-25 04:00] VITALS: BP 132/76
[2018-09-25 05:25] LABS: HEMATOCRIT 27.9 % (42.0-52.0); HEMOGLOBIN 9.5 G/DL (14.2-18.0); MEAN CORPUSCULAR VOLUME 87 FL (80-99); PLATELET COUNT 369 K/UL (150-450); RED BLOOD COUNT 3.22 M/UL (4.70-6.10); RED CELL DISTRIBUTION WIDTH 12.9 % (11.6-14.8)
[2018-09-25 05:35] LABS: WHITE BLOOD COUNT 23.1 K/UL (4.8-10.8)
[2018-09-25] MEDS: Piperacillin/Tazobactam 3.375 GM in NS 110 ML IVPB SCH ×3 (05:46→21:16)
[2018-09-25] MEDS: NovoLOG Insulin Flexpen SUBQ SCH ×4 (05:48→23:04)
[2018-09-25] MEDS: TPN IV SCH (05:48)
[2018-09-25] MEDS: FAT EMULSION 20% IV SCH (05:48)
[2018-09-25 05:50] LABS: ALANINE AMINOTRANSFERASE 20 U/L (12-78); ALBUMIN 1.2 G/DL (3.4-5.0); ALBUMIN/GLOBULIN RATIO 0.3 (1.0-2.7); ALKALINE PHOSPHATASE 84 U/L (46-116); ANION GAP 12 mmol/L (5-15); ASPARTATE AMINO TRANSFERASE 25 U/L (15-37); BILIRUBIN,TOTAL 0.5 MG/DL (0.2-1.0); BLOOD UREA NITROGEN 13 mg/dL (7-18); CALCIUM 6.7 MG/DL (8.5-10.1); CARBON DIOXIDE 20 MMOL/L (21-32); CHLORIDE 118 MMOL/L (98-107); CREATININE 1.5 MG/DL (0.55-1.30); POTASSIUM 2.8 MMOL/L (3.5-5.1); SODIUM 149 MMOL/L (136-145)
[2018-09-25 06:01] LABS: PHOSPHORUS 1.9 MG/DL (2.5-4.9)
[2018-09-25 08:00] VITALS: BP 146/88
[2018-09-25] MEDS: Pantoprazole Inj IVP SCH ×2 (09:18→20:46)
--- NOTE | 2018-09-25 10:24 | General Progress Note ---
Assessment/Plan Problem List: (1) Decubitus skin ulcer ICD Codes: L89.90 - Pressure ulcer of unspecified site, unspecified stage SNOMED: 037927228 (2) Anemia ICD Codes: D64.9 - Anemia, unspecified SNOMED: 445562589 (3) Acute respiratory failure ICD Codes: J96.00 - Acute respiratory failure, unspecified whether with hypoxia or hypercapnia SNOMED: 94196472 (4) Pneumonia ICD Codes: J18.9 - Pneumonia, unspecified organism SNOMED: 155260713 Assessment/Plan REOPERATIVE DIAGNOSES: 1. Malpositioned feeding tube with leak and peritonitis/perforation. 2. Respiratory insufficiency requiring prolonged ventilatory support. POSTOPERATIVE DIAGNOSES: 1. Large omental perigastric hematoma. 2. Malpositioned PEG tube with gastric perforation. 3. Large perisplenic abscess. 4. Abdominal peritonitis. 5. Respiratory insufficiency requiring prolonged ventilatory support. OPERATION PERFORMED: 1. Exploratory laparotomy. 2. Repair of gastric perforation. 3. Evacuation of abdominal omental / lesser sac hematoma. 4. Evacuation of perisplenic hematoma/abscess. 5. Omentectomy. 6. Splenectomy. 7. Abdominal washout. 8. Tracheostomy. RECOMMENDATIONS: fu surgical recommendations prn transfusion ppi on TPN replace k last blood transfusion yesterday fu labs Subjective ROS Limited/Unobtainable: No Allergies: Coded Allergies: No Known Allergies (Unverified , 08/14/18) Objective Last 24 Hour Vital Signs Date Time Temp Pulse Resp B/P (MAP) Pulse Ox O2 Delivery O2 Flow Rate FiO2 09/25/18 09:26 85 14 30 09/25/18 07:30 101 17 30 09/25/18 05:29 78 13 30 09/25/18 04:00 30 09/25/18 04:00 99.6 79 15 132/76 99 Mechanical Ventilator 30 09/25/18 04:00 Mechanical Ventilator Mechanical Ventilator Mechanical Ventilator 09/25/18 03:36 76 09/25/18 03:09 82 16 30 09/25/18 01:30 92 20 30 09/25/18 00:00 30 09/25/18 00:00 99.7 111 20 129/85 96 Mechanical Ventilator 30 09/25/18 00:00 Mechanical Ventilator Mechanical Ventilator Mechanical Ventilator 09/24/18 23:36 114 09/24/18 23:00 91 21 30 09/24/18 20:35 90 22 30 09/24/18 20:00 99.7 110 12 156/94 99 Mechanical Ventilator 30 09/24/18 20:00 Mechanical Ventilator Mechanical Ventilator Mechanical Ventilator 09/24/18 20:00 30 09/24/18 19:30 99 22 30 09/24/18 19:01 109 09/24/18 18:09 112 09/24/18 17:28 98 24 30 09/24/18 16:00 99.9 100 20 131/91 100 Mechanical Ventilator 30 09/24/18 16:00 Mechanical Ventilator Mechanical Ventilator Mechanical Ventilator 09/24/18 16:00 30 09/24/18 15:22 96 24 30 09/24/18 13:08 92 22 30 09/24/18 12:00 93 09/24/18 12:00 99.6 89 18 141/95 99 Mechanical Ventilator 30 09/24/18 12:00 Mechanical Ventilator Mechanical Ventilator Mechanical Ventilator 09/24/18 12:00 30 09/24/18 11:27 98 20 30 09/24/18 11:00 87 17 125/82 99 Mechanical Ventilator 30 Intake and Output 09/24/18 09/25/18 18:59 06:59 Intake Total 583.5 ml 19.88 ml Output Total 890 ml 1360 ml Balance -306.5 ml -1340.12 ml IV Total 583.5 ml 19.88 ml Output Urine Total 790 ml 1200 ml Drainage Total 100 ml 160 ml Laboratory Tests 09/25/18 04:00: White Blood Count 23.1*H, Red Blood Count 3.22L, Hemoglobin 9.5L, Hematocrit 27.9L, Mean Corpuscular Volume 87, Mean Corpuscular Hemoglobin 29.6, Mean Corpuscular Hemoglobin Concent 34.1, Red Cell Distribution Width 12.9, Platelet Count 369, Mean Platelet Volume 6.2L, Neutrophils (%) (Auto) , Lymphocytes (%) ( Auto) , Monocytes (%) (Auto) , Eosinophils (%) (Auto) , Basophils (%) (Auto) , Differential Total Cells Counted 100, Neutrophils % (Manual) 89H, Lymphocytes % (Manual) 6L, Monocytes % (Manual) 5, Eosinophils % (Manual) 0, Basophils % ( Manual) 0, Band Neutrophils 0, Nucleated Red Blood Cells 2, Platelet Estimate Adequate, Platelet Morphology Normal, Anisocytosis 1+, Sodium Level 149H, Potassium Level 2.8L, Chloride Level 118H, Carbon Dioxide Level 20L, Anion Gap 12, Blood Urea Nitrogen 13, Creatinine 1.5H, Estimat Glomerular Filtration Rate 47.7, Glucose Level 187H, Uric Acid 1.8L, Calcium Level 6.7L, Phosphorus Level 1.9L, Magnesium Level 2.0, Total Bilirubin 0.5, Aspartate Amino Transf (AST/SGOT ) 25, Alanine Aminotransferase (ALT/SGPT) 20, Alkaline Phosphatase 84, Pro-B- Type Natriuretic Peptide 6630H, Total Protein 4.7L, Albumin 1.2L, Globulin 3.5, Albumin/Globulin Ratio 0.3L Height (Feet): 5 Height (Inches): 5.00 Weight (Pounds): 120 General Appearance: confused EENT: normal ENT inspection Neck: supple Cardiovascular: normal rate Respiratory/Chest: decreased breath sounds Abdomen: soft, hypoactive bowel sounds Extremities: non-tender Arthur Horton MD Sep 25, 2018 10:24
[2018-09-25] MEDS: Heparin 5000 units/ml inj SUBQ SCH ×2 (10:26→20:47)
[2018-09-25] MEDS ORDERED: Potassium Phosphate 30 MM in NS 275 ML IV SCH (11:00)
--- NOTE | 2018-09-25 11:00 | Progress Note ---
DATE: 09/25/2018 SUBJECTIVE: This is a 62-year-old male patient with septic shock. He is now on Step-Down Unit, but the patient still has some altered mental status and confusion. His cognition has declined below his baseline. That is why, his attending has requested daily psychiatric consultation. He has altered mental status, confused, very poor historian. MENTAL STATUS EXAMINATION: The patient is a 62-year-old male. Appearance is disheveled. Attitude, irritable and agitated. Affect, guarded and restricted. Intellect poor. Mood, depressed and anxious. Affect is flat. Thought process, disorganized. Insight and judgment is poor. DIAGNOSIS: Paranoid schizophrenia with acute exacerbation. PLAN: Continue to treat this patient with the medication regimen of Risperdal 0.25 mg daily and provided him with 20 minutes of reality-based supportive psychotherapy and encouraged him to interact appropriately with staff and other patients. Chart is reviewed. Discussed with staff. The patient is seen and assessed in his room. Virgie Mcdermott M.D. DR: JAYSON JOB#: [id number] CC:
--- NOTE | 2018-09-25 11:05 | Pulmonolgy Critical Care Note ---
Critical Care - Asmt/Plan Problems: (1) Acute respiratory failure (2) Septic shock (3) ATN (acute tubular necrosis) (4) Metabolic acidosis (5) Gastric rupture Respiratory: monitor respiratory rate, adjust FIO2, CXR Cardiac: continue pressors, continue to monitor HR/BP Renal: F/U I&O Infectious Disease: check cultures Gastrointestinal: continue feedings/current rate Endocrine: monitor blood sugar Hematologic: transfuse if hgb<8.5 Neurologic: PRN Ativan, keep patient comfortable Affect: PRN ativan Prophylaxis: Heparin Notes Reviewed: stone banker, renal Discussed with: nurses, consultants, counseling case managermanager media - Objective Last 24 Hour Vital Signs Date Time Temp Pulse Resp B/P (MAP) Pulse Ox O2 Delivery O2 Flow Rate FiO2 09/25/18 11:02 84 15 30 09/25/18 09:26 85 14 30 09/25/18 07:30 101 17 30 09/25/18 05:29 78 13 30 09/25/18 04:00 30 09/25/18 04:00 99.6 79 15 132/76 99 Mechanical Ventilator 30 09/25/18 04:00 Mechanical Ventilator Mechanical Ventilator Mechanical Ventilator 09/25/18 03:36 76 09/25/18 03:09 82 16 30 09/25/18 01:30 92 20 30 09/25/18 00:00 30 09/25/18 00:00 99.7 111 20 129/85 96 Mechanical Ventilator 30 09/25/18 00:00 Mechanical Ventilator Mechanical Ventilator Mechanical Ventilator 09/24/18 23:36 114 09/24/18 23:00 91 21 30 09/24/18 20:35 90 22 30 09/24/18 20:00 99.7 110 12 156/94 99 Mechanical Ventilator 30 09/24/18 20:00 Mechanical Ventilator Mechanical Ventilator Mechanical Ventilator 09/24/18 20:00 30 09/24/18 19:30 99 22 30 09/24/18 19:01 109 09/24/18 18:09 112 09/24/18 17:28 98 24 30 09/24/18 16:00 99.9 100 20 131/91 100 Mechanical Ventilator 30 09/24/18 16:00 Mechanical Ventilator Mechanical Ventilator Mechanical Ventilator 09/24/18 16:00 30 09/24/18 15:22 96 24 30 09/24/18 13:08 92 22 30 09/24/18 12:00 93 09/24/18 12:00 99.6 89 18 141/95 99 Mechanical Ventilator 30 09/24/18 12:00 Mechanical Ventilator Mechanical Ventilator Mechanical Ventilator 09/24/18 12:00 30 09/24/18 11:27 98 20 30 Status: awake Condition: critical Neck: full ROM Lungs: clear Heart: HR/BP stable Abdomen: soft, non-tender Extremities: no C/C/E Decubiti: location Micro: Microbiology Date/Time Source Procedure Growth Status 09/23/18 12:00 Blood Blood Culture - Preliminary NO GROWTH AFTER 24 HOURS Resulted 09/23/18 12:00 Indwelling Cath Urine Culture - Preliminary YEAST Resulted 09/23/18 21:20 Hip Right Gram Stain - Final Resulted 09/23/18 21:20 Hip Right Wound Culture Pending Resulted Accucheck: 192 Critical Care - Subjective Condition: critical FI02: 30 Vent Support Breath Rate: 12 Vent Support Mode: AC Vent Tidal Volume: 600 Sputum Amount: Scant PEEP: 0.0 PIP: 20 Tube Feeding Amount: 0 I&O: Intake and Output 09/24/18 09/25/18 19:00 07:00 Intake Total 459.0 ml 114.38 ml Output Total 870 ml 1360 ml Balance -411.0 ml -1245.62 ml IV Total 459.0 ml 114.38 ml Output Urine Total 770 ml 1200 ml Drainage Total 100 ml 160 ml CXR: no changes Labs: Laboratory Tests Test 09/25/18 04:00 White Blood Count 23.1 K/UL (4.8-10.8) *H Red Blood Count 3.22 M/UL (4.70-6.10) L Hemoglobin 9.5 G/DL (14.2-18.0) L Hematocrit 27.9 % (42.0-52.0) L Mean Corpuscular Volume 87 FL (80-99) Mean Corpuscular Hemoglobin 29.6 PG (27.0-31.0) Mean Corpuscular Hemoglobin Concent 34.1 G/DL (32.0-36.0) Red Cell Distribution Width 12.9 % (11.6-14.8) Platelet Count 369 K/UL (150-450) Mean Platelet Volume 6.2 FL (6.5-10.1) L Neutrophils (%) (Auto) % (45.0-75.0) Lymphocytes (%) (Auto) % (20.0-45.0) Monocytes (%) (Auto) % (1.0-10.0) Eosinophils (%) (Auto) % (0.0-3.0) Basophils (%) (Auto) % (0.0-2.0) Differential Total Cells Counted 100 Neutrophils % (Manual) 89 % (45-75) H Lymphocytes % (Manual) 6 % (20-45) L Monocytes % (Manual) 5 % (1-10) Eosinophils % (Manual) 0 % (0-3) Basophils % (Manual) 0 % (0-2) Band Neutrophils 0 % (0-8) Nucleated Red Blood Cells 2 /100 WBC Platelet Estimate Adequate Platelet Morphology Normal Anisocytosis 1+ Sodium Level 149 MMOL/L (136-145) H Potassium Level 2.8 MMOL/L (3.5-5.1) L Chloride Level 118 MMOL/L (98-107) H Carbon Dioxide Level 20 MMOL/L (21-32) L Anion Gap 12 mmol/L (5-15) Blood Urea Nitrogen 13 mg/dL (7-18) Creatinine 1.5 MG/DL (0.55-1.30) H Estimat Glomerular Filtration Rate 47.7 mL/min (>60) Glucose Level 187 MG/DL (74-106) H Uric Acid 1.8 MG/DL (2.6-7.2) L Calcium Level 6.7 MG/DL (8.5-10.1) L Phosphorus Level 1.9 MG/DL (2.5-4.9) L Magnesium Level 2.0 MG/DL (1.8-2.4) Total Bilirubin 0.5 MG/DL (0.2-1.0) Aspartate Amino Transf (AST/SGOT) 25 U/L (15-37) Alanine Aminotransferase (ALT/SGPT) 20 U/L (12-78) Alkaline Phosphatase 84 U/L (46-116) Pro-B-Type Natriuretic Peptide 6630 pg/mL (0-125) H Total Protein 4.7 G/DL (6.4-8.2) L Albumin 1.2 G/DL (3.4-5.0) L Globulin 3.5 g/dL Albumin/Globulin Ratio 0.3 (1.0-2.7) L Po Li MD Sep 25, 2018 11:05
[2018-09-25] MEDS ORDERED: Potassium Chloride 40 MEQ in Sodium Chloride 550 ML IVPB ONE (11:15)
[2018-09-25 12:00] VITALS: BP 139/90
--- NOTE | 2018-09-25 12:13 | General Progress Note ---
Assessment/Plan Problem List: (1) GI bleed ICD Codes: K92.2 - Gastrointestinal hemorrhage, unspecified SNOMED: 00141057 (2) Protein-calorie malnutrition, severe ICD Codes: E43 - Unspecified severe protein-calorie malnutrition SNOMED: 978266284 (3) Septic shock ICD Codes: A41.9 - Sepsis, unspecified organism; R65.21 - Severe sepsis with septic shock SNOMED: 54723563 Status: unchanged Assessment/Plan moniter for gi bleed anemia check h/h sepsis reviewed chart and labs lyte abnormality Subjective ROS Limited/Unobtainable: Yes Allergies: Coded Allergies: No Known Allergies (Unverified , 08/14/18) Objective Last 24 Hour Vital Signs Date Time Temp Pulse Resp B/P (MAP) Pulse Ox O2 Delivery O2 Flow Rate FiO2 09/25/18 11:02 84 15 30 09/25/18 09:26 85 14 30 09/25/18 07:30 101 17 30 09/25/18 05:29 78 13 30 09/25/18 04:00 30 09/25/18 04:00 99.6 79 15 132/76 99 Mechanical Ventilator 30 09/25/18 04:00 Mechanical Ventilator Mechanical Ventilator Mechanical Ventilator 09/25/18 03:36 76 09/25/18 03:09 82 16 30 09/25/18 01:30 92 20 30 09/25/18 00:00 30 09/25/18 00:00 99.7 111 20 129/85 96 Mechanical Ventilator 30 09/25/18 00:00 Mechanical Ventilator Mechanical Ventilator Mechanical Ventilator 09/24/18 23:36 114 09/24/18 23:00 91 21 30 09/24/18 20:35 90 22 30 09/24/18 20:00 99.7 110 12 156/94 99 Mechanical Ventilator 30 09/24/18 20:00 Mechanical Ventilator Mechanical Ventilator Mechanical Ventilator 09/24/18 20:00 30 09/24/18 19:30 99 22 30 09/24/18 19:01 109 09/24/18 18:09 112 09/24/18 17:28 98 24 30 09/24/18 16:00 99.9 100 20 131/91 100 Mechanical Ventilator 30 09/24/18 16:00 Mechanical Ventilator Mechanical Ventilator Mechanical Ventilator 09/24/18 16:00 30 09/24/18 15:22 96 24 30 09/24/18 13:08 92 22 30 Intake and Output 09/24/18 09/25/18 19:00 07:00 Intake Total 459.0 ml 114.38 ml Output Total 870 ml 1360 ml Balance -411.0 ml -1245.62 ml IV Total 459.0 ml 114.38 ml Output Urine Total 770 ml 1200 ml Drainage Total 100 ml 160 ml Laboratory Tests 09/25/18 04:00: White Blood Count 23.1*H, Red Blood Count 3.22L, Hemoglobin 9.5L, Hematocrit 27.9L, Mean Corpuscular Volume 87, Mean Corpuscular Hemoglobin 29.6, Mean Corpuscular Hemoglobin Concent 34.1, Red Cell Distribution Width 12.9, Platelet Count 369, Mean Platelet Volume 6.2L, Neutrophils (%) (Auto) , Lymphocytes (%) ( Auto) , Monocytes (%) (Auto) , Eosinophils (%) (Auto) , Basophils (%) (Auto) , Differential Total Cells Counted 100, Neutrophils % (Manual) 89H, Lymphocytes % (Manual) 6L, Monocytes % (Manual) 5, Eosinophils % (Manual) 0, Basophils % ( Manual) 0, Band Neutrophils 0, Nucleated Red Blood Cells 2, Platelet Estimate Adequate, Platelet Morphology Normal, Anisocytosis 1+, Sodium Level 149H, Potassium Level 2.8L, Chloride Level 118H, Carbon Dioxide Level 20L, Anion Gap 12, Blood Urea Nitrogen 13, Creatinine 1.5H, Estimat Glomerular Filtration Rate 47.7, Glucose Level 187H, Uric Acid 1.8L, Calcium Level 6.7L, Phosphorus Level 1.9L, Magnesium Level 2.0, Total Bilirubin 0.5, Aspartate Amino Transf (AST/SGOT ) 25, Alanine Aminotransferase (ALT/SGPT) 20, Alkaline Phosphatase 84, Pro-B- Type Natriuretic Peptide 6630H, Total Protein 4.7L, Albumin 1.2L, Globulin 3.5, Albumin/Globulin Ratio 0.3L Height (Feet): 5 Height (Inches): 5.00 Weight (Pounds): 120 Cardiovascular: normal rate Respiratory/Chest: lungs clear Abdomen: soft Pinky Bhatia MD Sep 25, 2018 12:13
[2018-09-25] MEDS ORDERED: Sodium Phosphate 30 MM in NS 275 ML IV ONE (12:45)
--- NOTE | 2018-09-25 13:36 | Cardiac Electrophysiology PN ---
Assessment/Plan Assessment/Plan 1. S/P Septic and hemorrhagic shock with Lactic acidosis. On Abx and S/P PRBC 2. Sinus tachycardia with heart rate in 140s due to sepsis, anemia and dehydration. No fibrillation. EF 75%. HR in 90s 3. Troponin elevation due to renal failure. EF 75%. 4. Respiratory failure on the vent. S/P Tracheostomy 09/22/18 5. Rhabdomyolysis with CPK in thousands. May be contributing to renal failure. 6. Acute renal failure and severe hyperkalemia. FU by Dr. Smalls 7. Dysphagia, Hx of PEG placement but was dislodged. S/P exploratory laparotomy, repair of gastric perforation, evacuation of perisplenic abscess, splenectomy On TPN per Dr. Smalls 8. GI bleed. S/P EGD by Dr Horton. S/p PRBCs DW RN Awaiting [facility] Subjective Subjective Transferred out of ICU on the Vent via tracheostomy. Had exploratory laparotomy, splenectomy, abdominal washout and tracheostomy 09/23 On TPN and Lipid Objective Last 24 Hour Vital Signs Date Time Temp Pulse Resp B/P (MAP) Pulse Ox O2 Delivery O2 Flow Rate FiO2 09/25/18 11:02 84 15 30 09/25/18 09:26 85 14 30 09/25/18 07:30 101 17 30 09/25/18 05:29 78 13 30 09/25/18 04:00 30 09/25/18 04:00 99.6 79 15 132/76 99 Mechanical Ventilator 30 09/25/18 04:00 Mechanical Ventilator Mechanical Ventilator Mechanical Ventilator 09/25/18 03:36 76 09/25/18 03:09 82 16 30 09/25/18 01:30 92 20 30 09/25/18 00:00 30 09/25/18 00:00 99.7 111 20 129/85 96 Mechanical Ventilator 30 09/25/18 00:00 Mechanical Ventilator Mechanical Ventilator Mechanical Ventilator 09/24/18 23:36 114 09/24/18 23:00 91 21 30 09/24/18 20:35 90 22 30 09/24/18 20:00 99.7 110 12 156/94 99 Mechanical Ventilator 30 09/24/18 20:00 Mechanical Ventilator Mechanical Ventilator Mechanical Ventilator 09/24/18 20:00 30 09/24/18 19:30 99 22 30 09/24/18 19:01 109 09/24/18 18:09 112 09/24/18 17:28 98 24 30 09/24/18 16:00 99.9 100 20 131/91 100 Mechanical Ventilator 30 09/24/18 16:00 Mechanical Ventilator Mechanical Ventilator Mechanical Ventilator 09/24/18 16:00 30 09/24/18 15:22 96 24 30 Intake and Output 09/24/18 09/25/18 18:59 06:59 Intake Total 583.5 ml 19.88 ml Output Total 890 ml 1360 ml Balance -306.5 ml -1340.12 ml IV Total 583.5 ml 19.88 ml Output Urine Total 790 ml 1200 ml Drainage Total 100 ml 160 ml Laboratory Tests Test 09/25/18 04:00 White Blood Count 23.1 K/UL (4.8-10.8) *H Red Blood Count 3.22 M/UL (4.70-6.10) L Hemoglobin 9.5 G/DL (14.2-18.0) L Hematocrit 27.9 % (42.0-52.0) L Mean Corpuscular Volume 87 FL (80-99) Mean Corpuscular Hemoglobin 29.6 PG (27.0-31.0) Mean Corpuscular Hemoglobin Concent 34.1 G/DL (32.0-36.0) Red Cell Distribution Width 12.9 % (11.6-14.8) Platelet Count 369 K/UL (150-450) Mean Platelet Volume 6.2 FL (6.5-10.1) L Neutrophils (%) (Auto) % (45.0-75.0) Lymphocytes (%) (Auto) % (20.0-45.0) Monocytes (%) (Auto) % (1.0-10.0) Eosinophils (%) (Auto) % (0.0-3.0) Basophils (%) (Auto) % (0.0-2.0) Differential Total Cells Counted 100 Neutrophils % (Manual) 89 % (45-75) H Lymphocytes % (Manual) 6 % (20-45) L Monocytes % (Manual) 5 % (1-10) Eosinophils % (Manual) 0 % (0-3) Basophils % (Manual) 0 % (0-2) Band Neutrophils 0 % (0-8) Nucleated Red Blood Cells 2 /100 WBC Platelet Estimate Adequate Platelet Morphology Normal Anisocytosis 1+ Sodium Level 149 MMOL/L (136-145) H Potassium Level 2.8 MMOL/L (3.5-5.1) L Chloride Level 118 MMOL/L (98-107) H Carbon Dioxide Level 20 MMOL/L (21-32) L Anion Gap 12 mmol/L (5-15) Blood Urea Nitrogen 13 mg/dL (7-18) Creatinine 1.5 MG/DL (0.55-1.30) H Estimat Glomerular Filtration Rate 47.7 mL/min (>60) Glucose Level 187 MG/DL (74-106) H Uric Acid 1.8 MG/DL (2.6-7.2) L Calcium Level 6.7 MG/DL (8.5-10.1) L Phosphorus Level 1.9 MG/DL (2.5-4.9) L Magnesium Level 2.0 MG/DL (1.8-2.4) Total Bilirubin 0.5 MG/DL (0.2-1.0) Aspartate Amino Transf (AST/SGOT) 25 U/L (15-37) Alanine Aminotransferase (ALT/SGPT) 20 U/L (12-78) Alkaline Phosphatase 84 U/L (46-116) Pro-B-Type Natriuretic Peptide 6630 pg/mL (0-125) H Total Protein 4.7 G/DL (6.4-8.2) L Albumin 1.2 G/DL (3.4-5.0) L Globulin 3.5 g/dL Albumin/Globulin Ratio 0.3 (1.0-2.7) L Microbiology Date/Time Source Procedure Growth Status 09/23/18 12:00 Blood Blood Culture - Preliminary NO GROWTH AFTER 24 HOURS Resulted 09/23/18 12:00 Indwelling Cath Urine Culture - Preliminary YEAST Resulted 09/23/18 21:20 Hip Right Gram Stain - Final Resulted 09/23/18 21:20 Wound Culture - Preliminary YEAST Resulted Objective HEENT: S/P tracheostomy. No JVD LUNGS: Coarse rhonchi. CARDIOVASCULAR: Tachycardic S1 and S2. ABDOMEN: Post op covered with dressing EXTREMITIES: No pitting edema. Jasbir Madsen MD Sep 25, 2018 13:36
[2018-09-25 16:00] VITALS: BP 136/74
--- NOTE | 2018-09-25 16:11 | Infectious Diseases Prog Note ---
Assessment/Plan Assessment/Plan 62 yo male with PMHx of Quadriplegia with G-tube, HTN, DM and Schizophenia who was sent to the ED fromhis intermediate for AMS. Displaced GT with perforation c/w peritonitis and hematoma/abscess formation -09/22 SP Exploratory laparotomy. Repair of gastric perforation. Evacuation of abdominal omental / lesser sac hematoma. Evacuation of perisplenic hematoma/ abscess. Omentectomy. Splenectomy. Abdominal washout. Tracheostomy. -09/21 CT abd/p: The gastrostomy tube appears to be partially intraluminal and partially communicate with a large intramural collection involving mostly the inferior posterior wall of the stomach. There is some anterior wall pneumatosis. Contrast within the collection most likely represents instilled enteric contrast, but could also represent extravasated vascular contrast. There is evidence of rupture of this collection into the peritoneal space, with extravasated contrast in the left upper quadrant. There is anterior gastric wall intramural pneumatosis as well as a small amount of free extraluminal gas. Moderate ascites. Enhancement of much of the peritoneum raises concern for peritonitis. There may also be loculated intraperitoneal collections which could represent abscesses, predominantly adjacent to the tip of the right hepatic lobe, subcapsular in the spleen, and within the left upper quadrant. Thick-walled sigmoid colon, transverse colon and equivocally the proximal jejunum. Likely reactive related to the above, but could also indicate enteritis /colitis changes Septic shock 2ry to above, SP Leukocytosis, recurrent worsened-after procedure; improving -09/20 ucx NTD; u/a neg -09/19 CXR: Bilateral pleural effusions and bibasilar atelectasis/airspace disease are stable. Low grade fever; improving Diarrhea- -Cdiff neg GIB Sepsis - Probably PNA , s/p Rx 09/22 CXR: Bilateral pleural effusions, basilar atelectatic changes, and interstitial congestive changes are stable CXR 09/07/18 - possible left sided consolidation Inf neg 09/07/18 BCx 2/2 sets diphteroids, 1/2 setse S. epi (contaminants); 09/11 Bcx NTD 09/07/18 SCx - NF 09/07/18 UCx - Neg 09/09 Cdiff neg HTN DM Schizophenia Quadriplegia. G- tube dependent Plan -Continue Zosyn #4 and add IV Micafungin #3 in the setting of stomach perforation and intraabdominal fluid collections -f/u Bcx x2, Urine Cx - 09/19/18 SP Zosyn #10 - 09/17/18 SP Vancmocyin #10 - 09/09/18 Ertapenem #3 - Monitor CBC and temps -Sx f/u -wound care We will continue to follow the patient during this hospitalization. Subjective Allergies: Coded Allergies: No Known Allergies (Unverified , 08/14/18) Subjective afebrile in >48hrs wbc improving Objective Vital Signs Last 24 Hour Vital Signs Date Time Temp Pulse Resp B/P (MAP) Pulse Ox O2 Delivery O2 Flow Rate FiO2 09/25/18 15:12 102 27 30 09/25/18 11:02 84 15 30 09/25/18 09:26 85 14 30 09/25/18 07:30 101 17 30 09/25/18 05:29 78 13 30 09/25/18 04:00 30 09/25/18 04:00 99.6 79 15 132/76 99 Mechanical Ventilator 30 09/25/18 04:00 Mechanical Ventilator Mechanical Ventilator Mechanical Ventilator 09/25/18 03:36 76 09/25/18 03:09 82 16 30 09/25/18 01:30 92 20 30 09/25/18 00:00 30 09/25/18 00:00 99.7 111 20 129/85 96 Mechanical Ventilator 30 09/25/18 00:00 Mechanical Ventilator Mechanical Ventilator Mechanical Ventilator 09/24/18 23:36 114 09/24/18 23:00 91 21 30 09/24/18 20:35 90 22 30 09/24/18 20:00 99.7 110 12 156/94 99 Mechanical Ventilator 30 09/24/18 20:00 Mechanical Ventilator Mechanical Ventilator Mechanical Ventilator 09/24/18 20:00 30 09/24/18 19:30 99 22 30 09/24/18 19:01 109 09/24/18 18:09 112 09/24/18 17:28 98 24 30 Height (Feet): 5 Height (Inches): 5.00 Weight (Pounds): 120 Objective Gen: NAD, On vent satting well 35% O2 HEENT: NCAT, MMM, EOMI LUNGS: CTAB, No W/C, CARDS: RRR, S1, S2, No M/R/G, ABD: Soft, NT, distended, + BS,G tube (No E/P) NEURO: Intubated, not following Microbiology Date/Time Source Procedure Growth Status 09/23/18 12:00 Blood Blood Culture - Preliminary NO GROWTH AFTER 24 HOURS Resulted 09/25/18 00:10 Sputum Induced Gram Stain - Final Resulted 09/25/18 00:10 Sputum Induced Sputum Culture Pending Resulted 09/23/18 12:00 Indwelling Cath Urine Culture - Preliminary YEAST Resulted 09/23/18 21:20 Hip Right Gram Stain - Final Resulted 09/23/18 21:20 Wound Culture - Preliminary YEAST Resulted Laboratory Tests Test 09/25/18 04:00 White Blood Count 23.1 K/UL (4.8-10.8) *H Red Blood Count 3.22 M/UL (4.70-6.10) L Hemoglobin 9.5 G/DL (14.2-18.0) L Hematocrit 27.9 % (42.0-52.0) L Mean Corpuscular Volume 87 FL (80-99) Mean Corpuscular Hemoglobin 29.6 PG (27.0-31.0) Mean Corpuscular Hemoglobin Concent 34.1 G/DL (32.0-36.0) Red Cell Distribution Width 12.9 % (11.6-14.8) Platelet Count 369 K/UL (150-450) Mean Platelet Volume 6.2 FL (6.5-10.1) L Neutrophils (%) (Auto) % (45.0-75.0) Lymphocytes (%) (Auto) % (20.0-45.0) Monocytes (%) (Auto) % (1.0-10.0) Eosinophils (%) (Auto) % (0.0-3.0) Basophils (%) (Auto) % (0.0-2.0) Differential Total Cells Counted 100 Neutrophils % (Manual) 89 % (45-75) H Lymphocytes % (Manual) 6 % (20-45) L Monocytes % (Manual) 5 % (1-10) Eosinophils % (Manual) 0 % (0-3) Basophils % (Manual) 0 % (0-2) Band Neutrophils 0 % (0-8) Nucleated Red Blood Cells 2 /100 WBC Platelet Estimate Adequate Platelet Morphology Normal Anisocytosis 1+ Sodium Level 149 MMOL/L (136-145) H Potassium Level 2.8 MMOL/L (3.5-5.1) L Chloride Level 118 MMOL/L (98-107) H Carbon Dioxide Level 20 MMOL/L (21-32) L Anion Gap 12 mmol/L (5-15) Blood Urea Nitrogen 13 mg/dL (7-18) Creatinine 1.5 MG/DL (0.55-1.30) H Estimat Glomerular Filtration Rate 47.7 mL/min (>60) Glucose Level 187 MG/DL (74-106) H Uric Acid 1.8 MG/DL (2.6-7.2) L Calcium Level 6.7 MG/DL (8.5-10.1) L Phosphorus Level 1.9 MG/DL (2.5-4.9) L Magnesium Level 2.0 MG/DL (1.8-2.4) Total Bilirubin 0.5 MG/DL (0.2-1.0) Aspartate Amino Transf (AST/SGOT) 25 U/L (15-37) Alanine Aminotransferase (ALT/SGPT) 20 U/L (12-78) Alkaline Phosphatase 84 U/L (46-116) Pro-B-Type Natriuretic Peptide 6630 pg/mL (0-125) H Total Protein 4.7 G/DL (6.4-8.2) L Albumin 1.2 G/DL (3.4-5.0) L Globulin 3.5 g/dL Albumin/Globulin Ratio 0.3 (1.0-2.7) L Current Medications Medications (Trade) Dose Ordered Sig/Julito Route PRN Reason Start Time Stop Time Status Last Admin Dose Admin Acetaminophen (Tylenol) 650 mg Q4H PRN NG Mild Pain/Temp > 100.5 09/24/18 12:15 10/08/18 12:14 Chlorhexidine Gluconate (Camila-Hex 2%) 1 applic DAILY@1999 TOPIC 09/24/18 20:00 10/15/18 19:59 09/24/18 21:25 Dextrose (Dextrose 50%) 25 ml Q30M PRN IV Hypoglycemia 09/24/18 12:30 10/08/18 13:29 Dextrose (Dextrose 50%) 50 ml Q30M PRN IV Hypoglycemia 09/24/18 12:30 10/08/18 13:29 Fat Emulsion Intravenous 216 ml/Amino Acids/ Electrolytes/ Dextrose 1,608 ml @ 67 mls/hr Q24H IV 09/25/18 05:30 10/25/18 05:29 09/25/18 05:48 Heparin Sodium (Porcine) (Heparin 5000 units/ml) 5,000 units EVERY 12 HOURS SUBQ 09/24/18 21:00 10/07/18 20:59 09/25/18 10:26 Insulin Aspart (NovoLOG) Q6HR SUBQ 09/24/18 12:00 10/08/18 11:59 09/25/18 13:07 Loperamide HCl (Imodium) 4 mg TIDPRN PRN ORAL Diarrhea 09/24/18 12:15 10/10/18 12:14 Micafungin Sodium 100 mg/Sodium Chloride 110 ml @ 110 mls/hr Q24H IVPB 09/24/18 18:00 09/30/18 17:59 09/24/18 19:14 Ondansetron HCl (Zofran) 4 mg Q6H PRN IVP Nausea & Vomiting 09/24/18 12:15 10/07/18 12:14 Pantoprazole (Protonix) 40 mg Q12HR IVP 09/24/18 21:00 10/08/18 08:59 09/25/18 09:18 Phytonadione (Vitamin K) 10 mg QWEEK SUBQ 09/30/18 09:00 10/30/18 08:59 Piperacillin Sod/ Tazobactam Sod 3.375 gm/Sodium Chloride 110 ml @ 27.5 mls/hr EVERY 8 HOURS IVPB 09/24/18 14:00 09/27/18 21:59 09/25/18 13:39 Polyethylene Glycol (Miralax) 17 gm DAILYPRN PRN ORAL Constipation 09/24/18 12:15 10/07/18 12:14 Potassium Phosphate 30 mm/ Sodium Chloride 285 ml @ 47.5 mls/hr ONCE IV 09/25/18 11:00 09/25/18 16:59 09/25/18 11:26 Risperidone (RisperDAL) 0.25 mg QHS ORAL 09/24/18 21:00 10/10/18 20:59 Sodium Chloride 500 ml @ 999 mls/hr Q31M PRN IV SBP<90mmHg 09/24/18 12:15 10/08/18 10:59 Kell Larkin M.D. Sep 25, 2018 16:11
[2018-09-25] MEDS: Micafungin 100 MG in NS 110 ML IVPB SCH (17:51)
--- NOTE | 2018-09-25 17:58 | Nephrology Progress Note ---
Assessment/Plan Problem List: (1) ATN (acute tubular necrosis) Assessment: Cr rising post op but lowering (2) Septic shock (3) Lactic acid acidosis (4) Metabolic acidosis (5) Hyperkalemia (6) G tube feedings (7) Acute respiratory failure Assessment post op 09/22/18: Trach, Splenectomy, Perf.... over all improved: cr rising again presented with Shock , likely septic Acute renal failure resolved Acute metabolic acidosis resolved Hyperkalemia PEG Recent Pneumonia Plan plan: K and Phos supplements on tpn now trached 09/22 post laparatomy 09/22 off pressors pulmonary support Fluid challenge as needed Silva K and Phos and Mag supplement as needed antibiotics monitor renal parameters and ABG poor prognosis Subjective ROS Limited/Unobtainable: Yes Objective Objective Last 24 Hour Vital Signs Date Time Temp Pulse Resp B/P (MAP) Pulse Ox O2 Delivery O2 Flow Rate FiO2 09/25/18 17:20 88 19 30 09/25/18 15:12 102 27 30 09/25/18 11:02 84 15 30 09/25/18 09:26 85 14 30 09/25/18 07:30 101 17 30 09/25/18 05:29 78 13 30 09/25/18 04:00 30 09/25/18 04:00 99.6 79 15 132/76 99 Mechanical Ventilator 30 09/25/18 04:00 Mechanical Ventilator Mechanical Ventilator Mechanical Ventilator 09/25/18 03:36 76 09/25/18 03:09 82 16 30 09/25/18 01:30 92 20 30 09/25/18 00:00 30 09/25/18 00:00 99.7 111 20 129/85 96 Mechanical Ventilator 30 09/25/18 00:00 Mechanical Ventilator Mechanical Ventilator Mechanical Ventilator 09/24/18 23:36 114 09/24/18 23:00 91 21 30 09/24/18 20:35 90 22 30 09/24/18 20:00 99.7 110 12 156/94 99 Mechanical Ventilator 30 09/24/18 20:00 Mechanical Ventilator Mechanical Ventilator Mechanical Ventilator 09/24/18 20:00 30 09/24/18 19:30 99 22 30 09/24/18 19:01 109 09/24/18 18:09 112 Intake and Output 09/24/18 09/25/18 19:00 07:00 Intake Total 459.0 ml 114.38 ml Output Total 870 ml 1360 ml Balance -411.0 ml -1245.62 ml IV Total 459.0 ml 114.38 ml Output Urine Total 770 ml 1200 ml Drainage Total 100 ml 160 ml Laboratory Tests 09/25/18 04:00: White Blood Count 23.1*H, Red Blood Count 3.22L, Hemoglobin 9.5L, Hematocrit 27.9L, Mean Corpuscular Volume 87, Mean Corpuscular Hemoglobin 29.6, Mean Corpuscular Hemoglobin Concent 34.1, Red Cell Distribution Width 12.9, Platelet Count 369, Mean Platelet Volume 6.2L, Neutrophils (%) (Auto) , Lymphocytes (%) ( Auto) , Monocytes (%) (Auto) , Eosinophils (%) (Auto) , Basophils (%) (Auto) , Differential Total Cells Counted 100, Neutrophils % (Manual) 89H, Lymphocytes % (Manual) 6L, Monocytes % (Manual) 5, Eosinophils % (Manual) 0, Basophils % ( Manual) 0, Band Neutrophils 0, Nucleated Red Blood Cells 2, Platelet Estimate Adequate, Platelet Morphology Normal, Anisocytosis 1+, Sodium Level 149H, Potassium Level 2.8L, Chloride Level 118H, Carbon Dioxide Level 20L, Anion Gap 12, Blood Urea Nitrogen 13, Creatinine 1.5H, Estimat Glomerular Filtration Rate 47.7, Glucose Level 187H, Uric Acid 1.8L, Calcium Level 6.7L, Phosphorus Level 1.9L, Magnesium Level 2.0, Total Bilirubin 0.5, Aspartate Amino Transf (AST/SGOT ) 25, Alanine Aminotransferase (ALT/SGPT) 20, Alkaline Phosphatase 84, Pro-B- Type Natriuretic Peptide 6630H, Total Protein 4.7L, Albumin 1.2L, Globulin 3.5, Albumin/Globulin Ratio 0.3L Height (Feet): 5 Height (Inches): 5.00 Weight (Pounds): 120 General Appearance: no apparent distress Cardiovascular: tachycardia Respiratory/Chest: decreased breath sounds Abdomen: distended Objective no other changes Josesito Smalls MD Sep 25, 2018 17:58
[2018-09-25 20:00] VITALS: BP 130/73
[2018-09-25] MEDS: Dyna-Hex 2% Top Sol 2oz TOPIC SCH (20:46)
[2018-09-25] MEDS: Acetaminophen 650 MG SUPP RECTAL PRN (21:17)
[2018-09-26] VITALS: BP 132/78
[2018-09-26 04:00] VITALS: BP 139/87
[2018-09-26] MEDS: TPN IV SCH (05:38)
[2018-09-26] MEDS: FAT EMULSION 20% IV SCH (05:38)
[2018-09-26] MEDS: NovoLOG Insulin Flexpen SUBQ SCH ×3 (05:57→17:52)
[2018-09-26] MEDS: Piperacillin/Tazobactam 3.375 GM in NS 110 ML IVPB SCH ×3 (05:57→22:00)
--- NOTE | 2018-09-26 07:52 | Infectious Diseases Prog Note ---
Assessment/Plan Assessment/Plan 62 yo male with PMHx of Quadriplegia with G-tube, HTN, DM and Schizophenia who was sent to the ED fromhis group home for AMS. Displaced GT with perforation c/w peritonitis and hematoma/abscess formation -09/22 SP Exploratory laparotomy. Repair of gastric perforation. Evacuation of abdominal omental / lesser sac hematoma. Evacuation of perisplenic hematoma/ abscess. Omentectomy. Splenectomy. Abdominal washout. Tracheostomy. -09/21 CT abd/p: The gastrostomy tube appears to be partially intraluminal and partially communicate with a large intramural collection involving mostly the inferior posterior wall of the stomach. There is some anterior wall pneumatosis. Contrast within the collection most likely represents instilled enteric contrast, but could also represent extravasated vascular contrast. There is evidence of rupture of this collection into the peritoneal space, with extravasated contrast in the left upper quadrant. There is anterior gastric wall intramural pneumatosis as well as a small amount of free extraluminal gas. Moderate ascites. Enhancement of much of the peritoneum raises concern for peritonitis. There may also be loculated intraperitoneal collections which could represent abscesses, predominantly adjacent to the tip of the right hepatic lobe, subcapsular in the spleen, and within the left upper quadrant. Thick-walled sigmoid colon, transverse colon and equivocally the proximal jejunum. Likely reactive related to the above, but could also indicate enteritis /colitis changes Septic shock 2ry to above, SP Leukocytosis, recurrent worsened-after procedure; improving -09/20 ucx NTD; u/a neg -09/19 CXR: Bilateral pleural effusions and bibasilar atelectasis/airspace disease are stable. Low grade fever; improving Diarrhea- -Cdiff neg GIB Sepsis - Probably PNA , s/p Rx 09/22 CXR: Bilateral pleural effusions, basilar atelectatic changes, and interstitial congestive changes are stable CXR 09/07/18 - possible left sided consolidation Inf neg 09/07/18 BCx 2/2 sets diphteroids, 1/2 setse S. epi (contaminants); 09/11 Bcx NTD 09/07/18 SCx - NF 09/07/18 UCx - Neg 09/09 Cdiff neg HTN DM Schizophenia Quadriplegia. G- tube dependent Plan -Continue Zosyn #5 and add IV Micafungin #4 in the setting of stomach perforation and intraabdominal fluid collections -f/u Bcx x2, Urine Cx - 09/19/18 SP Zosyn #10 - 09/17/18 SP Vancmocyin #10 - 09/09/18 Ertapenem #3 - Monitor CBC and temps -Sx f/u -wound care We will continue to follow the patient during this hospitalization. Subjective Allergies: Coded Allergies: No Known Allergies (Unverified , 08/14/18) Subjective Afebrile Leukocytosis improving On vent Objective Vital Signs Last 24 Hour Vital Signs Date Time Temp Pulse Resp B/P (MAP) Pulse Ox O2 Delivery O2 Flow Rate FiO2 09/26/18 07:20 76 20 30 09/26/18 05:25 88 19 30 09/26/18 04:00 80 09/26/18 04:00 30 09/26/18 04:00 97.5 70 22 139/87 99 Mechanical Ventilator 30 09/26/18 04:00 Mechanical Ventilator Mechanical Ventilator 09/26/18 03:04 88 20 30 09/26/18 00:53 89 18 30 09/26/18 00:00 97.9 79 23 132/78 99 Mechanical Ventilator 30 09/26/18 00:00 Mechanical Ventilator Mechanical Ventilator 09/26/18 00:00 82 09/26/18 00:00 30 09/25/18 23:14 91 12 30 09/25/18 21:48 89 15 30 09/25/18 21:47 99.0 09/25/18 21:47 99.0 09/25/18 20:00 Mechanical Ventilator Mechanical Ventilator 09/25/18 20:00 102.0 91 18 130/73 97 Mechanical Ventilator 30 09/25/18 20:00 81 09/25/18 20:00 30 09/25/18 18:50 85 17 30 09/25/18 17:20 88 19 30 09/25/18 16:00 30 09/25/18 16:00 Mechanical Ventilator Mechanical Ventilator 09/25/18 16:00 99.0 70 18 136/74 97 Mechanical Ventilator 30 09/25/18 16:00 81 09/25/18 15:12 102 27 30 09/25/18 12:00 98.8 88 18 139/90 97 Mechanical Ventilator 30 09/25/18 12:00 Mechanical Ventilator Mechanical Ventilator 09/25/18 12:00 30 09/25/18 11:36 86 09/25/18 11:02 84 15 30 09/25/18 09:26 85 14 30 09/25/18 08:00 99.0 95 20 146/88 98 Mechanical Ventilator 30 09/25/18 08:00 Mechanical Ventilator Mechanical Ventilator 09/25/18 08:00 30 Height (Feet): 5 Height (Inches): 5.00 Weight (Pounds): 121 Objective Gen: NAD, On vent 30% O2 HEENT: NCAT, MMM, EOMI LUNGS: CTAB ABD: Soft, NT, distended, + BS,G tube (No E/P) NEURO: Intubated, not following Microbiology Date/Time Source Procedure Growth Status 09/23/18 12:00 Blood Blood Culture - Preliminary NO GROWTH AFTER 48 HOURS Resulted 09/25/18 00:10 Sputum Induced Gram Stain - Final Resulted 09/25/18 00:10 Sputum Induced Sputum Culture Pending Resulted 09/23/18 12:00 Indwelling Cath Urine Culture - Final Incky Tropicalis Complete 09/23/18 21:20 Hip Right Gram Stain - Final Resulted 09/23/18 21:20 Wound Culture - Preliminary YEAST Resulted Current Medications Medications (Trade) Dose Ordered Sig/Julito Route PRN Reason Start Time Stop Time Status Last Admin Dose Admin Acetaminophen (Tylenol) 650 mg Q4H PRN NG Mild Pain/Temp > 100.5 09/24/18 12:15 10/08/18 12:14 Acetaminophen (Tylenol) 650 mg Q4H PRN RECTAL Mild Pain (Pain Scale 1-3) 09/25/18 21:00 10/25/18 20:59 09/25/18 21:17 Chlorhexidine Gluconate (Camila-Hex 2%) 1 applic DAILY@2000 TOPIC 09/24/18 20:00 10/15/18 19:59 09/25/18 20:46 Dextrose (Dextrose 50%) 25 ml Q30M PRN IV Hypoglycemia 09/24/18 12:30 10/08/18 13:29 Dextrose (Dextrose 50%) 50 ml Q30M PRN IV Hypoglycemia 09/24/18 12:30 10/08/18 13:29 Fat Emulsion Intravenous 216 ml/Amino Acids/ Electrolytes/ Dextrose 1,608 ml @ 67 mls/hr Q24H IV 09/25/18 05:30 10/25/18 05:29 09/26/18 05:38 Heparin Sodium (Porcine) (Heparin 5000 units/ml) 5,000 units EVERY 12 HOURS SUBQ 09/24/18 21:00 10/07/18 20:59 09/25/18 20:47 Insulin Aspart (NovoLOG) Q6HR SUBQ 09/24/18 12:00 10/08/18 11:59 09/26/18 05:57 Loperamide HCl (Imodium) 4 mg TIDPRN PRN ORAL Diarrhea 09/24/18 12:15 10/10/18 12:14 Micafungin Sodium 100 mg/Sodium Chloride 110 ml @ 110 mls/hr Q24H IVPB 09/24/18 18:00 09/30/18 17:59 09/25/18 17:51 Ondansetron HCl (Zofran) 4 mg Q6H PRN IVP Nausea & Vomiting 09/24/18 12:15 10/07/18 12:14 Pantoprazole (Protonix) 40 mg Q12HR IVP 09/24/18 21:00 10/08/18 08:59 09/25/18 20:46 Phytonadione (Vitamin K) 10 mg QWEEK SUBQ 09/30/18 09:00 10/30/18 08:59 Piperacillin Sod/ Tazobactam Sod 3.375 gm/Sodium Chloride 110 ml @ 27.5 mls/hr EVERY 8 HOURS IVPB 09/24/18 14:00 09/27/18 21:59 09/26/18 05:57 Polyethylene Glycol (Miralax) 17 gm DAILYPRN PRN ORAL Constipation 09/24/18 12:15 10/07/18 12:14 Risperidone (RisperDAL) 0.25 mg QHS ORAL 09/24/18 21:00 10/10/18 20:59 Sodium Chloride 500 ml @ 999 mls/hr Q31M PRN IV SBP<90mmHg 09/24/18 12:15 10/08/18 10:59 Asim De Leon MD Sep 26, 2018 07:52
[2018-09-26 08:00] VITALS: BP 136/84
[2018-09-26] MEDS: Pantoprazole Inj IVP SCH ×2 (08:50→20:13)
[2018-09-26] MEDS: Heparin 5000 units/ml inj SUBQ SCH ×2 (08:51→20:13)
--- NOTE | 2018-09-26 08:55 | Pulmonolgy Critical Care Note ---
Critical Care - Asmt/Plan Problems: (1) Acute respiratory failure (2) Septic shock (3) ATN (acute tubular necrosis) (4) Metabolic acidosis (5) Gastric rupture Respiratory: monitor respiratory rate, adjust FIO2, CXR Cardiac: continue to monitor HR/BP Renal: F/U I&O, check electrolytes Infectious Disease: check cultures, continue antibiotics Gastrointestinal: continue feedings/current rate Endocrine: monitor blood sugar Hematologic: transfuse if hgb<8.5 Neurologic: keep patient comfortable Affect: PRN ativan Time Spent (Minutes): 40 Notes Reviewed: key attendant, renal Discussed with: nurses, consultants, case checkerpit manager - Objective Last 24 Hour Vital Signs Date Time Temp Pulse Resp B/P (MAP) Pulse Ox O2 Delivery O2 Flow Rate FiO2 09/26/18 08:00 Mechanical Ventilator Mechanical Ventilator 09/26/18 07:20 76 20 30 09/26/18 05:25 88 19 30 09/26/18 04:00 80 09/26/18 04:00 30 09/26/18 04:00 97.5 70 22 139/87 99 Mechanical Ventilator 30 09/26/18 04:00 Mechanical Ventilator Mechanical Ventilator 09/26/18 03:04 88 20 30 09/26/18 00:53 89 18 30 09/26/18 00:00 97.9 79 23 132/78 99 Mechanical Ventilator 30 09/26/18 00:00 Mechanical Ventilator Mechanical Ventilator 09/26/18 00:00 82 09/26/18 00:00 30 09/25/18 23:14 91 12 30 09/25/18 21:48 89 15 30 09/25/18 21:47 99.0 09/25/18 21:47 99.0 09/25/18 20:00 Mechanical Ventilator Mechanical Ventilator 09/25/18 20:00 102.0 91 18 130/73 97 Mechanical Ventilator 30 09/25/18 20:00 81 09/25/18 20:00 30 09/25/18 18:50 85 17 30 09/25/18 17:20 88 19 30 09/25/18 16:00 30 09/25/18 16:00 Mechanical Ventilator Mechanical Ventilator 09/25/18 16:00 99.0 70 18 136/74 97 Mechanical Ventilator 30 09/25/18 16:00 81 09/25/18 15:12 102 27 30 09/25/18 12:00 98.8 88 18 139/90 97 Mechanical Ventilator 30 09/25/18 12:00 Mechanical Ventilator Mechanical Ventilator 09/25/18 12:00 30 09/25/18 11:36 86 09/25/18 11:02 84 15 30 09/25/18 09:26 85 14 30 Status: awake Condition: critical HEENT: atraumatic Lungs: clear Heart: HR/BP stable, regular Abdomen: active bowel sounds Extremities: edema Decubiti: location Micro: Microbiology Date/Time Source Procedure Growth Status 09/23/18 12:00 Blood Blood Culture - Preliminary NO GROWTH AFTER 48 HOURS Resulted 09/25/18 00:10 Sputum Induced Gram Stain - Final Resulted 09/25/18 00:10 Sputum Induced Sputum Culture Pending Resulted 09/23/18 12:00 Indwelling Cath Urine Culture - Final Nicky Tropicalis Complete 09/23/18 21:20 Hip Right Gram Stain - Final Resulted 09/23/18 21:20 Wound Culture - Preliminary YEAST Resulted Accucheck: 208 Critical Care - Subjective ROS Limited/Unobtainable: Yes FI02: 30 Vent Support Breath Rate: 12 Vent Support Mode: AC Vent Tidal Volume: 600 Sputum Amount: Small PEEP: 0.0 PIP: 17 Fluids: tpn Tube Feeding Amount: 0 I&O: Intake and Output 09/25/18 09/26/18 19:00 07:00 Intake Total 1024.0 ml 914.0 ml Output Total 1060 ml 1490 ml Balance -36.0 ml -576.0 ml IV Total 1024.0 ml 914.0 ml Output Urine Total 800 ml 1300 ml Drainage Total 260 ml 190 ml # Bowel Movements 1 2 Po Li MD Sep 26, 2018 08:55
[2018-09-26 09:33] LABS: HEMATOCRIT 30.1 % (42.0-52.0); MEAN CORPUSCULAR VOLUME 89 FL (80-99); PLATELET COUNT 419 K/UL (150-450); RED BLOOD COUNT 3.37 M/UL (4.70-6.10); RED CELL DISTRIBUTION WIDTH 13.6 % (11.6-14.8); WHITE BLOOD COUNT 17.9 K/UL (4.8-10.8)
[2018-09-26 10:46] LABS: ALANINE AMINOTRANSFERASE 19 U/L (12-78); ALBUMIN 1.2 G/DL (3.4-5.0); ALBUMIN/GLOBULIN RATIO 0.3 (1.0-2.7); ALKALINE PHOSPHATASE 100 U/L (46-116); ANION GAP 12 mmol/L (5-15); ASPARTATE AMINO TRANSFERASE 24 U/L (15-37); BILIRUBIN,TOTAL 0.3 MG/DL (0.2-1.0); BLOOD UREA NITROGEN 14 mg/dL (7-18); CALCIUM 6.5 MG/DL (8.5-10.1); CARBON DIOXIDE 21 MMOL/L (21-32); CHLORIDE 116 MMOL/L (98-107); CREATININE 1.3 MG/DL (0.55-1.30); PHOSPHORUS 2.3 MG/DL (2.5-4.9); POTASSIUM 3.1 MMOL/L (3.5-5.1); SODIUM 149 MMOL/L (136-145)
[2018-09-26 12:00] VITALS: BP 115/63
--- NOTE | 2018-09-26 12:00 | General Progress Note ---
Assessment/Plan Problem List: (1) Decubitus skin ulcer ICD Codes: L89.90 - Pressure ulcer of unspecified site, unspecified stage SNOMED: 317842495 (2) Anemia ICD Codes: D64.9 - Anemia, unspecified SNOMED: 565334166 (3) Acute respiratory failure ICD Codes: J96.00 - Acute respiratory failure, unspecified whether with hypoxia or hypercapnia SNOMED: 11216977 (4) Pneumonia ICD Codes: J18.9 - Pneumonia, unspecified organism SNOMED: 303397654 Assessment/Plan REOPERATIVE DIAGNOSES: 1. Malpositioned feeding tube with leak and peritonitis/perforation. 2. Respiratory insufficiency requiring prolonged ventilatory support. POSTOPERATIVE DIAGNOSES: 1. Large omental perigastric hematoma. 2. Malpositioned PEG tube with gastric perforation. 3. Large perisplenic abscess. 4. Abdominal peritonitis. 5. Respiratory insufficiency requiring prolonged ventilatory support. OPERATION PERFORMED: 1. Exploratory laparotomy. 2. Repair of gastric perforation. 3. Evacuation of abdominal omental / lesser sac hematoma. 4. Evacuation of perisplenic hematoma/abscess. 5. Omentectomy. 6. Splenectomy. 7. Abdominal washout. 8. Tracheostomy. RECOMMENDATIONS: fu surgical recommendations prn transfusion ppi on TPN replace mag fu labs Subjective ROS Limited/Unobtainable: No Allergies: Coded Allergies: No Known Allergies (Unverified , 08/14/18) Objective Last 24 Hour Vital Signs Date Time Temp Pulse Resp B/P (MAP) Pulse Ox O2 Delivery O2 Flow Rate FiO2 09/26/18 11:33 79 18 30 09/26/18 11:00 76 16 30 09/26/18 08:00 30 09/26/18 08:00 Mechanical Ventilator Mechanical Ventilator 09/26/18 08:00 100.1 69 17 136/84 99 Mechanical Ventilator 30 09/26/18 07:59 70 09/26/18 07:20 76 20 30 09/26/18 05:25 88 19 30 09/26/18 04:00 80 09/26/18 04:00 30 09/26/18 04:00 97.5 70 22 139/87 99 Mechanical Ventilator 30 09/26/18 04:00 Mechanical Ventilator Mechanical Ventilator 09/26/18 03:04 88 20 30 09/26/18 00:53 89 18 30 09/26/18 00:00 97.9 79 23 132/78 99 Mechanical Ventilator 30 09/26/18 00:00 Mechanical Ventilator Mechanical Ventilator 09/26/18 00:00 82 09/26/18 00:00 30 09/25/18 23:14 91 12 30 09/25/18 21:48 89 15 30 09/25/18 21:47 99.0 09/25/18 21:47 99.0 09/25/18 20:00 Mechanical Ventilator Mechanical Ventilator 09/25/18 20:00 102.0 91 18 130/73 97 Mechanical Ventilator 30 09/25/18 20:00 81 09/25/18 20:00 30 09/25/18 18:50 85 17 30 09/25/18 17:20 88 19 30 09/25/18 16:00 30 09/25/18 16:00 Mechanical Ventilator Mechanical Ventilator 09/25/18 16:00 99.0 70 18 136/74 97 Mechanical Ventilator 30 09/25/18 16:00 81 09/25/18 15:12 102 27 30 09/25/18 12:00 98.8 88 18 139/90 97 Mechanical Ventilator 30 09/25/18 12:00 Mechanical Ventilator Mechanical Ventilator 09/25/18 12:00 30 Intake and Output 09/25/18 09/26/18 18:59 06:59 Intake Total 1051.5 ml 914.0 ml Output Total 1060 ml 1490 ml Balance -8.5 ml -576.0 ml IV Total 1051.5 ml 914.0 ml Output Urine Total 800 ml 1300 ml Drainage Total 260 ml 190 ml # Bowel Movements 1 2 Laboratory Tests 09/26/18 07:08: White Blood Count 17.9H, Red Blood Count 3.37L, Hemoglobin 10.0L, Hematocrit 30.1L, Mean Corpuscular Volume 89, Mean Corpuscular Hemoglobin 29.7, Mean Corpuscular Hemoglobin Concent 33.3, Red Cell Distribution Width 13.6, Platelet Count 419, Mean Platelet Volume 7.1, Neutrophils (%) (Auto) , Lymphocytes (%) ( Auto) , Monocytes (%) (Auto) , Eosinophils (%) (Auto) , Basophils (%) (Auto) , Differential Total Cells Counted 100, Neutrophils % (Manual) 85H, Lymphocytes % (Manual) 6L, Monocytes % (Manual) 4, Eosinophils % (Manual) 1, Basophils % ( Manual) 0, Band Neutrophils 4, Platelet Estimate Adequate, Platelet Morphology Normal, Polychromasia 1+, Hypochromasia 1+, Sodium Level 149H, Potassium Level 3.1L, Chloride Level 116H, Carbon Dioxide Level 21, Anion Gap 12, Blood Urea Nitrogen 14, Creatinine 1.3, Estimat Glomerular Filtration Rate 56.3, Glucose Level 228H, Calcium Level 6.5L, Phosphorus Level 2.3L, Magnesium Level 1.6L, Total Bilirubin 0.3, Aspartate Amino Transf (AST/SGOT) 24, Alanine Aminotransferase (ALT/SGPT) 19, Alkaline Phosphatase 100, Pro-B-Type Natriuretic Peptide 8019H, Total Protein 5.3L, Albumin 1.2L, Globulin 4.1, Albumin/Globulin Ratio 0.3L Height (Feet): 5 Height (Inches): 5.00 Weight (Pounds): 121 General Appearance: lethargic EENT: normal ENT inspection Neck: supple Cardiovascular: tachycardia Respiratory/Chest: decreased breath sounds Abdomen: hypoactive bowel sounds Extremities: non-tender Arthur Horton MD Sep 26, 2018 12:00
--- NOTE | 2018-09-26 13:17 | Nephrology Progress Note ---
Assessment/Plan Problem List: (1) ATN (acute tubular necrosis) Assessment: Cr rising post op but lowering (2) Septic shock (3) Lactic acid acidosis (4) Metabolic acidosis (5) Hyperkalemia (6) G tube feedings (7) Acute respiratory failure Assessment post op 09/22/18: Trach, Splenectomy, Perf.... over all improved: cr rising again presented with Shock , likely septic Acute renal failure resolved Acute metabolic acidosis resolved Hyperkalemia PEG Recent Pneumonia Plan plan: K and Phos supplements on tpn now trached 09/22 post laparatomy 09/22 off pressors pulmonary support Fluid challenge as needed Silva K and Phos and Mag supplement as needed antibiotics monitor renal parameters and ABG poor prognosis Subjective ROS Limited/Unobtainable: Yes Objective Objective Last 24 Hour Vital Signs Date Time Temp Pulse Resp B/P (MAP) Pulse Ox O2 Delivery O2 Flow Rate FiO2 09/26/18 12:58 73 15 30 09/26/18 12:00 30 09/26/18 12:00 98.1 85 23 115/63 98 Mechanical Ventilator 30 09/26/18 12:00 Mechanical Ventilator Mechanical Ventilator 09/26/18 11:33 79 18 30 09/26/18 11:00 76 16 30 09/26/18 08:00 30 09/26/18 08:00 Mechanical Ventilator Mechanical Ventilator 09/26/18 08:00 100.1 69 17 136/84 99 Mechanical Ventilator 30 09/26/18 07:59 70 09/26/18 07:20 76 20 30 09/26/18 05:25 88 19 30 09/26/18 04:00 80 09/26/18 04:00 30 09/26/18 04:00 97.5 70 22 139/87 99 Mechanical Ventilator 30 09/26/18 04:00 Mechanical Ventilator Mechanical Ventilator 09/26/18 03:04 88 20 30 09/26/18 00:53 89 18 30 09/26/18 00:00 97.9 79 23 132/78 99 Mechanical Ventilator 30 09/26/18 00:00 Mechanical Ventilator Mechanical Ventilator 09/26/18 00:00 82 09/26/18 00:00 30 09/25/18 23:14 91 12 30 09/25/18 21:48 89 15 30 09/25/18 21:47 99.0 09/25/18 21:47 99.0 2/15/19 20:00 Mechanical Ventilator Mechanical Ventilator 09/25/18 20:00 102.0 91 18 130/73 97 Mechanical Ventilator 30 09/25/18 20:00 81 09/25/18 20:00 30 09/25/18 18:50 85 17 30 09/25/18 17:20 88 19 30 09/25/18 16:00 30 09/25/18 16:00 Mechanical Ventilator Mechanical Ventilator 09/25/18 16:00 99.0 70 18 136/74 97 Mechanical Ventilator 30 09/25/18 16:00 81 09/25/18 15:12 102 27 30 Intake and Output 09/25/18 09/26/18 18:59 06:59 Intake Total 1051.5 ml 914.0 ml Output Total 1060 ml 1490 ml Balance -8.5 ml -576.0 ml IV Total 1051.5 ml 914.0 ml Output Urine Total 800 ml 1300 ml Drainage Total 260 ml 190 ml # Bowel Movements 1 2 Laboratory Tests 09/26/18 07:08: White Blood Count 17.9H, Red Blood Count 3.37L, Hemoglobin 10.0L, Hematocrit 30.1L, Mean Corpuscular Volume 89, Mean Corpuscular Hemoglobin 29.7, Mean Corpuscular Hemoglobin Concent 33.3, Red Cell Distribution Width 13.6, Platelet Count 419, Mean Platelet Volume 7.1, Neutrophils (%) (Auto) , Lymphocytes (%) ( Auto) , Monocytes (%) (Auto) , Eosinophils (%) (Auto) , Basophils (%) (Auto) , Differential Total Cells Counted 100, Neutrophils % (Manual) 85H, Lymphocytes % (Manual) 6L, Monocytes % (Manual) 4, Eosinophils % (Manual) 1, Basophils % ( Manual) 0, Band Neutrophils 4, Platelet Estimate Adequate, Platelet Morphology Normal, Polychromasia 1+, Hypochromasia 1+, Sodium Level 149H, Potassium Level 3.1L, Chloride Level 116H, Carbon Dioxide Level 21, Anion Gap 12, Blood Urea Nitrogen 14, Creatinine 1.3, Estimat Glomerular Filtration Rate 56.3, Glucose Level 228H, Calcium Level 6.5L, Phosphorus Level 2.3L, Magnesium Level 1.6L, Total Bilirubin 0.3, Aspartate Amino Transf (AST/SGOT) 24, Alanine Aminotransferase (ALT/SGPT) 19, Alkaline Phosphatase 100, Pro-B-Type Natriuretic Peptide 8019H, Total Protein 5.3L, Albumin 1.2L, Globulin 4.1, Albumin/Globulin Ratio 0.3L Height (Feet): 5 Height (Inches): 5.00 Weight (Pounds): 121 General Appearance: no apparent distress EENT: other - trach Cardiovascular: normal rate Respiratory/Chest: decreased breath sounds Abdomen: distended Objective no other changes Josesito Smalls MD Sep 26, 2018 13:17
--- NOTE | 2018-09-26 13:51 | Cardiac Electrophysiology PN ---
Assessment/Plan Assessment/Plan 1. S/P Septic and hemorrhagic shock with Lactic acidosis. On Abx and S/P PRBC 2. Sinus tachycardia with heart rate in 140s due to sepsis, anemia and dehydration. No fibrillation. EF 75%. HR in 90s now 3. Troponin elevation due to renal failure. EF 75%. 4. Respiratory failure on the vent. S/P Tracheostomy 09/22/18 5. Rhabdomyolysis with CPK in thousands. May be contributing to renal failure. 6. Acute renal failure and severe hyperkalemia. FU by Dr. Smalls 7. Dysphagia, Hx of PEG placement but was dislodged. 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 Smalls 8. GI bleed. S/P EGD by Dr Horton. S/p PRBCs DW RN Subjective Subjective On the Vent via tracheostomy. Had exploratory laparotomy, splenectomy, abdominal washout and tracheostomy 09/23 On TPN and Lipid Objective Last 24 Hour Vital Signs Date Time Temp Pulse Resp B/P (MAP) Pulse Ox O2 Delivery O2 Flow Rate FiO2 09/26/18 12:58 73 15 30 09/26/18 12:00 30 09/26/18 12:00 98.1 85 23 115/63 98 Mechanical Ventilator 30 09/26/18 12:00 Mechanical Ventilator Mechanical Ventilator 09/26/18 11:33 79 18 30 09/26/18 11:00 76 16 30 09/26/18 08:00 30 09/26/18 08:00 Mechanical Ventilator Mechanical Ventilator 09/26/18 08:00 100.1 69 17 136/84 99 Mechanical Ventilator 30 09/26/18 07:59 70 09/26/18 07:20 76 20 30 09/26/18 05:25 88 19 30 09/26/18 04:00 80 09/26/18 04:00 30 09/26/18 04:00 97.5 70 22 139/87 99 Mechanical Ventilator 30 09/26/18 04:00 Mechanical Ventilator Mechanical Ventilator 09/26/18 03:04 88 20 30 09/26/18 00:53 89 18 30 09/26/18 00:00 97.9 79 23 132/78 99 Mechanical Ventilator 30 2/16/19 00:00 Mechanical Ventilator Mechanical Ventilator 09/26/18 00:00 82 09/26/18 00:00 30 09/25/18 23:14 91 12 30 09/25/18 21:48 89 15 30 09/25/18 21:47 99.0 09/25/18 21:47 99.0 09/25/18 20:00 Mechanical Ventilator Mechanical Ventilator 09/25/18 20:00 102.0 91 18 130/73 97 Mechanical Ventilator 30 09/25/18 20:00 81 09/25/18 20:00 30 09/25/18 18:50 85 17 30 09/25/18 17:20 88 19 30 09/25/18 16:00 30 09/25/18 16:00 Mechanical Ventilator Mechanical Ventilator 09/25/18 16:00 99.0 70 18 136/74 97 Mechanical Ventilator 30 09/25/18 16:00 81 09/25/18 15:12 102 27 30 Intake and Output 09/25/18 09/26/18 18:59 06:59 Intake Total 1051.5 ml 914.0 ml Output Total 1060 ml 1490 ml Balance -8.5 ml -576.0 ml IV Total 1051.5 ml 914.0 ml Output Urine Total 800 ml 1300 ml Drainage Total 260 ml 190 ml # Bowel Movements 1 2 Laboratory Tests Test 09/26/18 07:08 White Blood Count 17.9 K/UL (4.8-10.8) H Red Blood Count 3.37 M/UL (4.70-6.10) L Hemoglobin 10.0 G/DL (14.2-18.0) L Hematocrit 30.1 % (42.0-52.0) L Mean Corpuscular Volume 89 FL (80-99) Mean Corpuscular Hemoglobin 29.7 PG (27.0-31.0) Mean Corpuscular Hemoglobin Concent 33.3 G/DL (32.0-36.0) Red Cell Distribution Width 13.6 % (11.6-14.8) Platelet Count 419 K/UL (150-450) Mean Platelet Volume 7.1 FL (6.5-10.1) Neutrophils (%) (Auto) % (45.0-75.0) Lymphocytes (%) (Auto) % (20.0-45.0) Monocytes (%) (Auto) % (1.0-10.0) Eosinophils (%) (Auto) % (0.0-3.0) Basophils (%) (Auto) % (0.0-2.0) Differential Total Cells Counted 100 Neutrophils % (Manual) 85 % (45-75) H Lymphocytes % (Manual) 6 % (20-45) L Monocytes % (Manual) 4 % (1-10) Eosinophils % (Manual) 1 % (0-3) Basophils % (Manual) 0 % (0-2) Band Neutrophils 4 % (0-8) Platelet Estimate Adequate Platelet Morphology Normal Polychromasia 1+ Hypochromasia 1+ Sodium Level 149 MMOL/L (136-145) H Potassium Level 3.1 MMOL/L (3.5-5.1) L Chloride Level 116 MMOL/L (98-107) H Carbon Dioxide Level 21 MMOL/L (21-32) Anion Gap 12 mmol/L (5-15) Blood Urea Nitrogen 14 mg/dL (7-18) Creatinine 1.3 MG/DL (0.55-1.30) Estimat Glomerular Filtration Rate 56.3 mL/min (>60) Glucose Level 228 MG/DL (74-106) H Calcium Level 6.5 MG/DL (8.5-10.1) L Phosphorus Level 2.3 MG/DL (2.5-4.9) L Magnesium Level 1.6 MG/DL (1.8-2.4) L Total Bilirubin 0.3 MG/DL (0.2-1.0) Aspartate Amino Transf (AST/SGOT) 24 U/L (15-37) Alanine Aminotransferase (ALT/SGPT) 19 U/L (12-78) Alkaline Phosphatase 100 U/L (46-116) Pro-B-Type Natriuretic Peptide 8019 pg/mL (0-125) H Total Protein 5.3 G/DL (6.4-8.2) L Albumin 1.2 G/DL (3.4-5.0) L Globulin 4.1 g/dL Albumin/Globulin Ratio 0.3 (1.0-2.7) L Microbiology Date/Time Source Procedure Growth Status 09/25/18 00:10 Sputum Induced Gram Stain - Final Resulted 09/25/18 00:10 Sputum Induced Sputum Culture Pending Resulted 09/23/18 21:20 Hip Right Gram Stain - Final Complete 2/13/19 21:20 Wound Culture - Final Nicky Lusitaniae Nicky Albicans Complete Objective HEENT: S/P tracheostomy. No JVD LUNGS: Coarse rhonchi. CARDIOVASCULAR: Tachycardic S1 and S2. ABDOMEN: Post op covered with dressing EXTREMITIES: No pitting edema. Jasbir Madsen MD Sep 26, 2018 13:51
[2018-09-26] MEDS ORDERED: Potassium Phosphate 30 MM in NS 275 ML IV ONE (15:00)
[2018-09-26 16:00] VITALS: BP 143/75
[2018-09-26] MEDS: Micafungin 100 MG in NS 110 ML IVPB SCH (17:50)
--- NOTE | 2018-09-26 18:43 | General Progress Note ---
Assessment/Plan Problem List: (1) GI bleed ICD Codes: K92.2 - Gastrointestinal hemorrhage, unspecified SNOMED: 07595337 (2) Protein-calorie malnutrition, severe ICD Codes: E43 - Unspecified severe protein-calorie malnutrition SNOMED: 222928345 (3) Septic shock ICD Codes: A41.9 - Sepsis, unspecified organism; R65.21 - Severe sepsis with septic shock SNOMED: 79950974 Status: progressing Assessment/Plan reviewed chart and labs afebrile no bleeding check h/h sepsis improving Subjective ROS Limited/Unobtainable: Yes Allergies: Coded Allergies: No Known Allergies (Unverified , 08/14/18) Objective Last 24 Hour Vital Signs Date Time Temp Pulse Resp B/P (MAP) Pulse Ox O2 Delivery O2 Flow Rate FiO2 09/26/18 17:13 96 24 30 09/26/18 16:00 101.4 89 17 143/75 99 Mechanical Ventilator 30 09/26/18 16:00 Mechanical Ventilator Mechanical Ventilator 09/26/18 16:00 30 09/26/18 15:35 86 09/26/18 15:15 94 27 30 09/26/18 12:58 73 15 30 09/26/18 12:00 30 09/26/18 12:00 98.1 85 23 115/63 98 Mechanical Ventilator 30 09/26/18 12:00 Mechanical Ventilator Mechanical Ventilator 09/26/18 11:51 76 09/26/18 11:33 79 18 30 09/26/18 11:00 76 16 30 09/26/18 08:00 30 09/26/18 08:00 Mechanical Ventilator Mechanical Ventilator 09/26/18 08:00 100.1 69 17 136/84 99 Mechanical Ventilator 30 09/26/18 07:59 70 09/26/18 07:20 76 20 30 09/26/18 05:25 88 19 30 09/26/18 04:00 80 09/26/18 04:00 30 09/26/18 04:00 97.5 70 22 139/87 99 Mechanical Ventilator 30 09/26/18 04:00 Mechanical Ventilator Mechanical Ventilator 09/26/18 03:04 88 20 30 09/26/18 00:53 89 18 30 09/26/18 00:00 97.9 79 23 132/78 99 Mechanical Ventilator 30 09/26/18 00:00 Mechanical Ventilator Mechanical Ventilator 09/26/18 00:00 82 09/26/18 00:00 30 09/25/18 23:14 91 12 30 09/25/18 21:48 89 15 30 09/25/18 21:47 99.0 09/25/18 21:47 99.0 09/25/18 20:00 Mechanical Ventilator Mechanical Ventilator 09/25/18 20:00 102.0 91 18 130/73 97 Mechanical Ventilator 30 09/25/18 20:00 81 09/25/18 20:00 30 09/25/18 18:50 85 17 30 Intake and Output 09/25/18 09/26/18 19:00 07:00 Intake Total 1024.0 ml 914.0 ml Output Total 1060 ml 1490 ml Balance -36.0 ml -576.0 ml IV Total 1024.0 ml 914.0 ml Output Urine Total 800 ml 1300 ml Drainage Total 260 ml 190 ml # Bowel Movements 1 2 Laboratory Tests 09/26/18 07:08: White Blood Count 17.9H, Red Blood Count 3.37L, Hemoglobin 10.0L, Hematocrit 30.1L, Mean Corpuscular Volume 89, Mean Corpuscular Hemoglobin 29.7, Mean Corpuscular Hemoglobin Concent 33.3, Red Cell Distribution Width 13.6, Platelet Count 419, Mean Platelet Volume 7.1, Neutrophils (%) (Auto) , Lymphocytes (%) ( Auto) , Monocytes (%) (Auto) , Eosinophils (%) (Auto) , Basophils (%) (Auto) , Differential Total Cells Counted 100, Neutrophils % (Manual) 85H, Lymphocytes % (Manual) 6L, Monocytes % (Manual) 4, Eosinophils % (Manual) 1, Basophils % ( Manual) 0, Band Neutrophils 4, Platelet Estimate Adequate, Platelet Morphology Normal, Polychromasia 1+, Hypochromasia 1+, Sodium Level 149H, Potassium Level 3.1L, Chloride Level 116H, Carbon Dioxide Level 21, Anion Gap 12, Blood Urea Nitrogen 14, Creatinine 1.3, Estimat Glomerular Filtration Rate 56.3, Glucose Level 228H, Calcium Level 6.5L, Phosphorus Level 2.3L, Magnesium Level 1.6L, Total Bilirubin 0.3, Aspartate Amino Transf (AST/SGOT) 24, Alanine Aminotransferase (ALT/SGPT) 19, Alkaline Phosphatase 100, Pro-B-Type Natriuretic Peptide 8019H, Total Protein 5.3L, Albumin 1.2L, Globulin 4.1, Albumin/Globulin Ratio 0.3L Height (Feet): 5 Height (Inches): 5.00 Weight (Pounds): 121 Cardiovascular: normal rate Respiratory/Chest: lungs clear Abdomen: soft Pinky Bhatia MD Sep 26, 2018 18:43
[2018-09-26 20:00] VITALS: BP 135/86
[2018-09-26] MEDS: Dyna-Hex 2% Top Sol 2oz TOPIC SCH (20:13)
[2018-09-27] VITALS: BP 142/94
[2018-09-27 04:00] VITALS: BP 136/96
[2018-09-27] MEDS: TPN IV SCH (04:54)
[2018-09-27] MEDS: FAT EMULSION 20% IV SCH (04:54)
[2018-09-27] MEDS: Piperacillin/Tazobactam 3.375 GM in NS 110 ML IVPB SCH ×3 (06:00→22:33)
[2018-09-27] MEDS: NovoLOG Insulin Flexpen SUBQ SCH ×5 (06:00→23:56)
[2018-09-27 08:00] VITALS: BP 135/93
[2018-09-27 08:00] LABS: HEMATOCRIT 32.2 % (42.0-52.0); HEMOGLOBIN 10.6 G/DL (14.2-18.0); MEAN CORPUSCULAR VOLUME 89 FL (80-99); PLATELET COUNT 535 K/UL (150-450); RED BLOOD COUNT 3.62 M/UL (4.70-6.10); WHITE BLOOD COUNT 15.9 K/UL (4.8-10.8)
[2018-09-27] MEDS: Pantoprazole Inj IVP SCH ×2 (08:21→20:03)
[2018-09-27] MEDS: Heparin 5000 units/ml inj SUBQ SCH ×2 (08:22→20:05)
[2018-09-27 08:28] LABS: ALANINE AMINOTRANSFERASE 16 U/L (12-78); ALBUMIN 1.2 G/DL (3.4-5.0); ALBUMIN/GLOBULIN RATIO 0.3 (1.0-2.7); ALKALINE PHOSPHATASE 112 U/L (46-116); ANION GAP 13 mmol/L (5-15); ASPARTATE AMINO TRANSFERASE 22 U/L (15-37); BILIRUBIN,TOTAL 0.3 MG/DL (0.2-1.0); BLOOD UREA NITROGEN 13 mg/dL (7-18); CALCIUM 6.4 MG/DL (8.5-10.1); CARBON DIOXIDE 21 MMOL/L (21-32); CHLORIDE 115 MMOL/L (98-107); CREATININE 1.1 MG/DL (0.55-1.30); POTASSIUM 3.4 MMOL/L (3.5-5.1); SODIUM 149 MMOL/L (136-145)
--- NOTE | 2018-09-27 09:30 | Progress Note ---
DATE: 09/27/2018 SUBJECTIVE: This is a 62-year-old male with septic shock, anemia, and GI bleeding. He is confused and disorganized. He has altered mental status, confusion, decline in cognition below his baseline. MENTAL STATUS EXAMINATION: A 62-year-old male with altered mental status, confusion, disorganized thought process paranoia with altered mental status, confusion, poverty of speech. Insight and judgment is poor. DIAGNOSIS: Paranoid schizophrenia. PLAN: Continue treatment with Risperdal 0.25 mg daily. Provided him with 20 minutes of reality-based supportive psychotherapy. Chart was reviewed and discussed with staff. Virgie Mcdermott M.D. DR: Reggie JOB#: [id number] CC:
[2018-09-27 12:00] VITALS: BP 131/76
--- NOTE | 2018-09-27 12:37 | General Progress Note ---
Assessment/Plan Problem List: (1) Decubitus skin ulcer ICD Codes: L89.90 - Pressure ulcer of unspecified site, unspecified stage SNOMED: 803164482 (2) Anemia ICD Codes: D64.9 - Anemia, unspecified SNOMED: 778580821 (3) Acute respiratory failure ICD Codes: J96.00 - Acute respiratory failure, unspecified whether with hypoxia or hypercapnia SNOMED: 21141793 (4) Pneumonia ICD Codes: J18.9 - Pneumonia, unspecified organism SNOMED: 825508879 Assessment/Plan REOPERATIVE DIAGNOSES: 1. Malpositioned feeding tube with leak and peritonitis/perforation. 2. Respiratory insufficiency requiring prolonged ventilatory support. POSTOPERATIVE DIAGNOSES: 1. Large omental perigastric hematoma. 2. Malpositioned PEG tube with gastric perforation. 3. Large perisplenic abscess. 4. Abdominal peritonitis. 5. Respiratory insufficiency requiring prolonged ventilatory support. OPERATION PERFORMED: 1. Exploratory laparotomy. 2. Repair of gastric perforation. 3. Evacuation of abdominal omental / lesser sac hematoma. 4. Evacuation of perisplenic hematoma/abscess. 5. Omentectomy. 6. Splenectomy. 7. Abdominal washout. 8. Tracheostomy. RECOMMENDATIONS: fu surgical recommendations prn transfusion ppi on TPN now with rectal tube fu C,diff fu labs Subjective ROS Limited/Unobtainable: No Allergies: Coded Allergies: No Known Allergies (Unverified , 08/14/18) Objective Last 24 Hour Vital Signs Date Time Temp Pulse Resp B/P (MAP) Pulse Ox O2 Delivery O2 Flow Rate FiO2 09/27/18 12:00 30 09/27/18 12:00 66 09/27/18 12:00 Mechanical Ventilator Mechanical Ventilator 09/27/18 10:32 64 12 30 09/27/18 08:46 100 37 30 09/27/18 08:00 30 09/27/18 08:00 94 09/27/18 08:00 Mechanical Ventilator Mechanical Ventilator 09/27/18 08:00 96.4 98 35 135/93 100 Mechanical Ventilator 30 09/27/18 06:40 107 39 30 09/27/18 05:05 79 19 30 09/27/18 04:00 98.6 90 30 136/96 100 Mechanical Ventilator 30 09/27/18 04:00 109 09/27/18 04:00 Mechanical Ventilator Mechanical Ventilator 09/27/18 04:00 30 2/17/19 03:15 110 35 30 09/27/18 01:11 89 20 30 09/27/18 00:00 98.4 86 24 142/94 100 Mechanical Ventilator 30 09/27/18 00:00 90 09/27/18 00:00 Mechanical Ventilator Mechanical Ventilator 09/26/18 23:02 79 19 30 09/26/18 21:03 78 18 30 09/26/18 20:00 Mechanical Ventilator Mechanical Ventilator 09/26/18 20:00 100.0 88 21 135/86 100 Mechanical Ventilator 30 09/26/18 20:00 30 09/26/18 20:00 88 09/26/18 18:58 97 20 30 09/26/18 17:13 96 24 30 09/26/18 16:00 101.4 89 17 143/75 99 Mechanical Ventilator 30 09/26/18 16:00 Mechanical Ventilator Mechanical Ventilator 09/26/18 16:00 30 09/26/18 15:35 86 09/26/18 15:15 94 27 30 09/26/18 12:58 73 15 30 Intake and Output 09/26/18 09/27/18 19:00 07:00 Intake Total 1219.0 ml 1208.5 ml Output Total 1325 ml 3725 ml Balance -106.0 ml -2516.5 ml IV Total 1219.0 ml 1208.5 ml Output Urine Total 1100 ml 2000 ml Stool Total 700 ml Drainage Total 225 ml 1025 ml # Bowel Movements 3 1 Laboratory Tests 09/27/18 04:00: White Blood Count 15.9H, Red Blood Count 3.62L, Hemoglobin 10.6L, Hematocrit 32.2L, Mean Corpuscular Volume 89, Mean Corpuscular Hemoglobin 29.2, Mean Corpuscular Hemoglobin Concent 32.8, Red Cell Distribution Width 13.0, Platelet Count 535H, Mean Platelet Volume 7.1, Neutrophils (%) (Auto) , Lymphocytes (%) ( Auto) , Monocytes (%) (Auto) , Eosinophils (%) (Auto) , Basophils (%) (Auto) , Differential Total Cells Counted 100, Neutrophils % (Manual) 80H, Lymphocytes % (Manual) 7L, Monocytes % (Manual) 6, Eosinophils % (Manual) 1, Basophils % ( Manual) 0, Myelocytes % 2H, Band Neutrophils 4, Nucleated Red Blood Cells 1, Platelet Estimate IncreasedH, Platelet Morphology , Giant Platelets Occasional, Polychromasia 1+, Hypochromasia 1+, Anisocytosis 1+, Sodium Level 149H, Potassium Level 3.4L, Chloride Level 115H, Carbon Dioxide Level 21, Anion Gap 13 , Blood Urea Nitrogen 13, Creatinine 1.1, Estimat Glomerular Filtration Rate > 60, Glucose Level 93#, Calcium Level 6.4L, Phosphorus Level 3.0, Magnesium Level 1.8, Total Bilirubin 0.3, Aspartate Amino Transf (AST/SGOT) 22, Alanine Aminotransferase (ALT/SGPT) 16, Alkaline Phosphatase 112, Total Protein 5.6L, Albumin 1.2L, Globulin 4.4, Albumin/Globulin Ratio 0.3L Height (Feet): 5 Height (Inches): 5.00 Weight (Pounds): 119 General Appearance: lethargic EENT: normal ENT inspection Neck: supple Cardiovascular: tachycardia Respiratory/Chest: decreased breath sounds Abdomen: soft, hypoactive bowel sounds Extremities: non-tender Arthur Horton MD Sep 27, 2018 12:37
--- NOTE | 2018-09-27 12:49 | Nephrology Progress Note ---
Assessment/Plan Problem List: (1) ATN (acute tubular necrosis) Assessment: Cr rising post op but lowering (2) Septic shock (3) Lactic acid acidosis (4) Metabolic acidosis (5) Hyperkalemia (6) G tube feedings (7) Acute respiratory failure Assessment post op 09/22/18: Trach, Splenectomy, Perf.... over all improved: cr rising again presented with Shock , likely septic Acute renal failure resolved Acute metabolic acidosis resolved Hyperkalemia PEG Recent Pneumonia Plan plan: K and Phos supplements on tpn now trached 09/22 post laparatomy 09/22 off pressors pulmonary support Fluid challenge as needed Silva K and Phos and Mag supplement as needed antibiotics monitor renal parameters and ABG poor prognosis Subjective ROS Limited/Unobtainable: Yes Objective Objective Last 24 Hour Vital Signs Date Time Temp Pulse Resp B/P (MAP) Pulse Ox O2 Delivery O2 Flow Rate FiO2 09/27/18 12:00 30 09/27/18 12:00 66 09/27/18 12:00 Mechanical Ventilator Mechanical Ventilator 09/27/18 10:32 64 12 30 09/27/18 08:46 100 37 30 09/27/18 08:00 30 09/27/18 08:00 94 09/27/18 08:00 Mechanical Ventilator Mechanical Ventilator 09/27/18 08:00 96.4 98 35 135/93 100 Mechanical Ventilator 30 09/27/18 06:40 107 39 30 09/27/18 05:05 79 19 30 09/27/18 04:00 98.6 90 30 136/96 100 Mechanical Ventilator 30 09/27/18 04:00 109 09/27/18 04:00 Mechanical Ventilator Mechanical Ventilator 09/27/18 04:00 30 09/27/18 03:15 110 35 30 09/27/18 01:11 89 20 30 09/27/18 00:00 98.4 86 24 142/94 100 Mechanical Ventilator 30 09/27/18 00:00 90 09/27/18 00:00 Mechanical Ventilator Mechanical Ventilator 09/26/18 23:02 79 19 30 09/26/18 21:03 78 18 30 09/26/18 20:00 Mechanical Ventilator Mechanical Ventilator 09/26/18 20:00 100.0 88 21 135/86 100 Mechanical Ventilator 30 09/26/18 20:00 30 09/26/18 20:00 88 09/26/18 18:58 97 20 30 09/26/18 17:13 96 24 30 09/26/18 16:00 101.4 89 17 143/75 99 Mechanical Ventilator 30 09/26/18 16:00 Mechanical Ventilator Mechanical Ventilator 09/26/18 16:00 30 09/26/18 15:35 86 09/26/18 15:15 94 27 30 09/26/18 12:58 73 15 30 Intake and Output 09/26/18 09/27/18 19:00 07:00 Intake Total 1219.0 ml 1208.5 ml Output Total 1325 ml 3725 ml Balance -106.0 ml -2516.5 ml IV Total 1219.0 ml 1208.5 ml Output Urine Total 1100 ml 2000 ml Stool Total 700 ml Drainage Total 225 ml 1025 ml # Bowel Movements 3 1 Laboratory Tests 09/27/18 04:00: White Blood Count 15.9H, Red Blood Count 3.62L, Hemoglobin 10.6L, Hematocrit 32.2L, Mean Corpuscular Volume 89, Mean Corpuscular Hemoglobin 29.2, Mean Corpuscular Hemoglobin Concent 32.8, Red Cell Distribution Width 13.0, Platelet Count 535H, Mean Platelet Volume 7.1, Neutrophils (%) (Auto) , Lymphocytes (%) ( Auto) , Monocytes (%) (Auto) , Eosinophils (%) (Auto) , Basophils (%) (Auto) , Differential Total Cells Counted 100, Neutrophils % (Manual) 80H, Lymphocytes % (Manual) 7L, Monocytes % (Manual) 6, Eosinophils % (Manual) 1, Basophils % ( Manual) 0, Myelocytes % 2H, Band Neutrophils 4, Nucleated Red Blood Cells 1, Platelet Estimate IncreasedH, Platelet Morphology , Giant Platelets Occasional, Polychromasia 1+, Hypochromasia 1+, Anisocytosis 1+, Sodium Level 149H, Potassium Level 3.4L, Chloride Level 115H, Carbon Dioxide Level 21, Anion Gap 13 , Blood Urea Nitrogen 13, Creatinine 1.1, Estimat Glomerular Filtration Rate > 60, Glucose Level 93#, Calcium Level 6.4L, Phosphorus Level 3.0, Magnesium Level 1.8, Total Bilirubin 0.3, Aspartate Amino Transf (AST/SGOT) 22, Alanine Aminotransferase (ALT/SGPT) 16, Alkaline Phosphatase 112, Total Protein 5.6L, Albumin 1.2L, Globulin 4.4, Albumin/Globulin Ratio 0.3L Height (Feet): 5 Height (Inches): 5.00 Weight (Pounds): 119 Cardiovascular: normal rate Respiratory/Chest: decreased breath sounds Abdomen: distended Objective no other changes Josesito Smalls MD Sep 27, 2018 12:49
--- NOTE | 2018-09-27 12:51 | Pulmonolgy Critical Care Note ---
Critical Care - Asmt/Plan Problems: (1) Acute respiratory failure (2) Septic shock (3) ATN (acute tubular necrosis) (4) Metabolic acidosis (5) Gastric rupture Respiratory: monitor respiratory rate, adjust FIO2, CXR Cardiac: continue to monitor HR/BP Renal: F/U I&O Infectious Disease: check cultures Gastrointestinal: continue feedings/current rate Endocrine: monitor blood sugar, check TSH, continue sliding scale insulin Hematologic: monitor H/H, transfuse if hgb<8.5 Neurologic: PRN Morphine, keep patient comfortable Affect: PRN ativan Time Spent (Minutes): 30 Notes Reviewed: renewals representative Discussed with: nurses, consultants, comp field case managerclinical project manager - Objective Last 24 Hour Vital Signs Date Time Temp Pulse Resp B/P (MAP) Pulse Ox O2 Delivery O2 Flow Rate FiO2 09/27/18 12:00 30 09/27/18 12:00 66 09/27/18 12:00 Mechanical Ventilator Mechanical Ventilator 09/27/18 10:32 64 12 30 09/27/18 08:46 100 37 30 09/27/18 08:00 30 09/27/18 08:00 94 09/27/18 08:00 Mechanical Ventilator Mechanical Ventilator 09/27/18 08:00 96.4 98 35 135/93 100 Mechanical Ventilator 30 09/27/18 06:40 107 39 30 09/27/18 05:05 79 19 30 09/27/18 04:00 98.6 90 30 136/96 100 Mechanical Ventilator 30 09/27/18 04:00 109 09/27/18 04:00 Mechanical Ventilator Mechanical Ventilator 09/27/18 04:00 30 09/27/18 03:15 110 35 30 09/27/18 01:11 89 20 30 09/27/18 00:00 98.4 86 24 142/94 100 Mechanical Ventilator 30 09/27/18 00:00 90 09/27/18 00:00 Mechanical Ventilator Mechanical Ventilator 09/26/18 23:02 79 19 30 09/26/18 21:03 78 18 30 09/26/18 20:00 Mechanical Ventilator Mechanical Ventilator 09/26/18 20:00 100.0 88 21 135/86 100 Mechanical Ventilator 30 09/26/18 20:00 30 09/26/18 20:00 88 09/26/18 18:58 97 20 30 09/26/18 17:13 96 24 30 09/26/18 16:00 101.4 89 17 143/75 99 Mechanical Ventilator 30 09/26/18 16:00 Mechanical Ventilator Mechanical Ventilator 09/26/18 16:00 30 09/26/18 15:35 86 09/26/18 15:15 94 27 30 09/26/18 12:58 73 15 30 Status: awake Condition: critical Neck: full ROM Heart: HR/BP stable Abdomen: non-tender Extremities: no C/C/E Micro: Microbiology Date/Time Source Procedure Growth Status 09/25/18 00:10 Sputum Induced Gram Stain - Final Resulted 09/25/18 00:10 Sputum Culture - Preliminary Yeast Species Resulted Accucheck: 160 Critical Care - Subjective ROS Limited/Unobtainable: No Condition: critical, improving EKG Rhythm: Sinus Rhythm FI02: 30 Vent Support Breath Rate: 12 Vent Support Mode: AC Vent Tidal Volume: 600 Sputum Amount: Small PEEP: 0.0 PIP: 19 Fluids: on TPN Tube Feeding Amount: 0 I&O: Intake and Output 09/26/18 09/27/18 19:00 07:00 Intake Total 1219.0 ml 1208.5 ml Output Total 1325 ml 3725 ml Balance -106.0 ml -2516.5 ml IV Total 1219.0 ml 1208.5 ml Output Urine Total 1100 ml 2000 ml Stool Total 700 ml Drainage Total 225 ml 1025 ml # Bowel Movements 3 1 Labs: Laboratory Tests Test 09/27/18 04:00 White Blood Count 15.9 K/UL (4.8-10.8) H Red Blood Count 3.62 M/UL (4.70-6.10) L Hemoglobin 10.6 G/DL (14.2-18.0) L Hematocrit 32.2 % (42.0-52.0) L Mean Corpuscular Volume 89 FL (80-99) Mean Corpuscular Hemoglobin 29.2 PG (27.0-31.0) Mean Corpuscular Hemoglobin Concent 32.8 G/DL (32.0-36.0) Red Cell Distribution Width 13.0 % (11.6-14.8) Platelet Count 535 K/UL (150-450) H Mean Platelet Volume 7.1 FL (6.5-10.1) Neutrophils (%) (Auto) % (45.0-75.0) Lymphocytes (%) (Auto) % (20.0-45.0) Monocytes (%) (Auto) % (1.0-10.0) Eosinophils (%) (Auto) % (0.0-3.0) Basophils (%) (Auto) % (0.0-2.0) Differential Total Cells Counted 100 Neutrophils % (Manual) 80 % (45-75) H Lymphocytes % (Manual) 7 % (20-45) L Monocytes % (Manual) 6 % (1-10) Eosinophils % (Manual) 1 % (0-3) Basophils % (Manual) 0 % (0-2) Myelocytes % 2 % (0-0) H Band Neutrophils 4 % (0-8) Nucleated Red Blood Cells 1 /100 WBC Platelet Estimate Increased H Platelet Morphology Giant Platelets Occasional Polychromasia 1+ Hypochromasia 1+ Anisocytosis 1+ Sodium Level 149 MMOL/L (136-145) H Potassium Level 3.4 MMOL/L (3.5-5.1) L Chloride Level 115 MMOL/L (98-107) H Carbon Dioxide Level 21 MMOL/L (21-32) Anion Gap 13 mmol/L (5-15) Blood Urea Nitrogen 13 mg/dL (7-18) Creatinine 1.1 MG/DL (0.55-1.30) Estimat Glomerular Filtration Rate > 60 mL/min (>60) Glucose Level 93 MG/DL (74-106) # Calcium Level 6.4 MG/DL (8.5-10.1) L Phosphorus Level 3.0 MG/DL (2.5-4.9) Magnesium Level 1.8 MG/DL (1.8-2.4) Total Bilirubin 0.3 MG/DL (0.2-1.0) Aspartate Amino Transf (AST/SGOT) 22 U/L (15-37) Alanine Aminotransferase (ALT/SGPT) 16 U/L (12-78) Alkaline Phosphatase 112 U/L (46-116) Total Protein 5.6 G/DL (6.4-8.2) L Albumin 1.2 G/DL (3.4-5.0) L Globulin 4.4 g/dL Albumin/Globulin Ratio 0.3 (1.0-2.7) L Po Li MD Sep 27, 2018 12:51
--- NOTE | 2018-09-27 13:31 | General Progress Note ---
Assessment/Plan Problem List: (1) GI bleed ICD Codes: K92.2 - Gastrointestinal hemorrhage, unspecified SNOMED: 46085448 (2) Protein-calorie malnutrition, severe ICD Codes: E43 - Unspecified severe protein-calorie malnutrition SNOMED: 587283742 (3) Septic shock ICD Codes: A41.9 - Sepsis, unspecified organism; R65.21 - Severe sepsis with septic shock SNOMED: 94463112 Status: progressing Assessment/Plan moniter for gi bleeding vitals holding no acute events check h/h sepsis Subjective ROS Limited/Unobtainable: Yes Allergies: Coded Allergies: No Known Allergies (Unverified , 08/14/18) Objective Last 24 Hour Vital Signs Date Time Temp Pulse Resp B/P (MAP) Pulse Ox O2 Delivery O2 Flow Rate FiO2 09/27/18 12:00 30 09/27/18 12:00 66 09/27/18 12:00 Mechanical Ventilator Mechanical Ventilator 09/27/18 10:32 64 12 30 09/27/18 08:46 100 37 30 09/27/18 08:00 30 09/27/18 08:00 94 09/27/18 08:00 Mechanical Ventilator Mechanical Ventilator 09/27/18 08:00 96.4 98 35 135/93 100 Mechanical Ventilator 30 09/27/18 06:40 107 39 30 09/27/18 05:05 79 19 30 09/27/18 04:00 98.6 90 30 136/96 100 Mechanical Ventilator 30 09/27/18 04:00 109 09/27/18 04:00 Mechanical Ventilator Mechanical Ventilator 09/27/18 04:00 30 09/27/18 03:15 110 35 30 09/27/18 01:11 89 20 30 09/27/18 00:00 98.4 86 24 142/94 100 Mechanical Ventilator 30 09/27/18 00:00 90 09/27/18 00:00 Mechanical Ventilator Mechanical Ventilator 09/26/18 23:02 79 19 30 09/26/18 21:03 78 18 30 09/26/18 20:00 Mechanical Ventilator Mechanical Ventilator 09/26/18 20:00 100.0 88 21 135/86 100 Mechanical Ventilator 30 09/26/18 20:00 30 09/26/18 20:00 88 09/26/18 18:58 97 20 30 09/26/18 17:13 96 24 30 09/26/18 16:00 101.4 89 17 143/75 99 Mechanical Ventilator 30 09/26/18 16:00 Mechanical Ventilator Mechanical Ventilator 09/26/18 16:00 30 09/26/18 15:35 86 09/26/18 15:15 94 27 30 Intake and Output 09/26/18 09/27/18 18:59 06:59 Intake Total 1219.0 ml 1181 ml Output Total 1325 ml 3725 ml Balance -106.0 ml -2544 ml IV Total 1219.0 ml 1181 ml Output Urine Total 1100 ml 2000 ml Stool Total 700 ml Drainage Total 225 ml 1025 ml # Bowel Movements 3 1 Laboratory Tests 09/27/18 04:00: White Blood Count 15.9H, Red Blood Count 3.62L, Hemoglobin 10.6L, Hematocrit 32.2L, Mean Corpuscular Volume 89, Mean Corpuscular Hemoglobin 29.2, Mean Corpuscular Hemoglobin Concent 32.8, Red Cell Distribution Width 13.0, Platelet Count 535H, Mean Platelet Volume 7.1, Neutrophils (%) (Auto) , Lymphocytes (%) ( Auto) , Monocytes (%) (Auto) , Eosinophils (%) (Auto) , Basophils (%) (Auto) , Differential Total Cells Counted 100, Neutrophils % (Manual) 80H, Lymphocytes % (Manual) 7L, Monocytes % (Manual) 6, Eosinophils % (Manual) 1, Basophils % ( Manual) 0, Myelocytes % 2H, Band Neutrophils 4, Nucleated Red Blood Cells 1, Platelet Estimate IncreasedH, Platelet Morphology , Giant Platelets Occasional, Polychromasia 1+, Hypochromasia 1+, Anisocytosis 1+, Sodium Level 149H, Potassium Level 3.4L, Chloride Level 115H, Carbon Dioxide Level 21, Anion Gap 13 , Blood Urea Nitrogen 13, Creatinine 1.1, Estimat Glomerular Filtration Rate > 60, Glucose Level 93#, Calcium Level 6.4L, Phosphorus Level 3.0, Magnesium Level 1.8, Total Bilirubin 0.3, Aspartate Amino Transf (AST/SGOT) 22, Alanine Aminotransferase (ALT/SGPT) 16, Alkaline Phosphatase 112, Total Protein 5.6L, Albumin 1.2L, Globulin 4.4, Albumin/Globulin Ratio 0.3L Height (Feet): 5 Height (Inches): 5.00 Weight (Pounds): 119 Neck: supple Cardiovascular: normal rate Abdomen: soft Pinky Bhatia MD Sep 27, 2018 13:31
[2018-09-27 16:00] VITALS: BP 117/77
[2018-09-27] MEDS ORDERED: D5NS 1000ml IV ONE (17:19)
[2018-09-27] MEDS ORDERED: NS 275ml ONE (17:19)
[2018-09-27] MEDS ORDERED: Tubing IV Secondary IV ONE ×2 (17:19)
[2018-09-27] MEDS: Micafungin 100 MG in NS 110 ML IVPB SCH (17:28)
[2018-09-27 20:00] VITALS: BP 137/79
[2018-09-27] MEDS: Dyna-Hex 2% Top Sol 2oz TOPIC SCH (20:03)
[2018-09-28] VITALS: BP 125/76
[2018-09-28 04:00] VITALS: BP 121/75
[2018-09-28] MEDS: Piperacillin/Tazobactam 3.375 GM in NS 110 ML IVPB SCH ×3 (05:47→22:04)
[2018-09-28] MEDS: NovoLOG Insulin Flexpen SUBQ SCH ×3 (05:52→17:59)
[2018-09-28] MEDS: TPN IV SCH (05:53)
[2018-09-28] MEDS: FAT EMULSION 20% IV SCH (05:53)
[2018-09-28 07:04] LABS: EOSINOPHILS % (AUTO) 2.1 % (0.0-3.0); HEMATOCRIT 28.4 % (42.0-52.0); HEMOGLOBIN 9.6 G/DL (14.2-18.0); LYMPHOCYTES % (AUTO) 8.4 % (20.0-45.0); MEAN CORPUSCULAR VOLUME 97 FL (80-99); MONOCYTES % (AUTO) 6.5 % (1.0-10.0); PLATELET COUNT 504 K/UL (150-450); RED BLOOD COUNT 2.92 M/UL (4.70-6.10); RED CELL DISTRIBUTION WIDTH 14.3 % (11.6-14.8); WHITE BLOOD COUNT 11.9 K/UL (4.8-10.8)
[2018-09-28 08:00] VITALS: BP 134/78
--- NOTE | 2018-09-28 08:45 | Progress Note ---
DATE: 09/26/2018 SUBJECTIVE: This is a 62-year-old male patient with septic shock, anemia, and status post GI bleed. The patient is in the ICU step-down currently. He continues to have altered mental status, confusion, disorganized thought process, and so he also has overlying diagnosis of paranoid schizophrenia. MENTAL STATUS EXAMINATION: This is a 62-year-old male. Appearance is disheveled. Attitude, irritable and agitated. Affect is flat. Thought process, disorganized and illogical. Thought content, auditory hallucinations and paranoid delusions. Insight and judgment is poor. DIAGNOSIS: Paranoid schizophrenia with acute exacerbation. PLAN: My plan for this patient is to treat this patient with the medication regimen consisting of Risperdal 0.25 mg daily. Provided him with 20 minutes of reality-based supportive psychotherapy and encouraged him to interact appropriately with staff and other patients. . A 20 minutes of behavioral management. Chart reviewed. Discussed with staff. The patient is seen and assessed at bedside. Virgie Mcdermott M.D. DR: JAYSON JOB#: [id number] CC:
[2018-09-28 09:29] LABS: ANION GAP 12 mmol/L (5-15); BLOOD UREA NITROGEN 14 mg/dL (7-18); CARBON DIOXIDE 22 MMOL/L (21-32); CHLORIDE 115 MMOL/L (98-107); CREATININE 1.1 MG/DL (0.55-1.30); SODIUM 148 MMOL/L (136-145)
[2018-09-28 09:30] LABS: ALANINE AMINOTRANSFERASE 12 U/L (12-78); ALBUMIN/GLOBULIN RATIO 0.3 (1.0-2.7); ALKALINE PHOSPHATASE 83 U/L (46-116); ASPARTATE AMINO TRANSFERASE 19 U/L (15-37); BILIRUBIN,TOTAL 0.2 MG/DL (0.2-1.0); CALCIUM 6.3 MG/DL (8.5-10.1)
[2018-09-28] MEDS: Pantoprazole Inj IVP SCH ×2 (09:37→20:31)
[2018-09-28] MEDS: Heparin 5000 units/ml inj SUBQ SCH ×2 (09:37→20:33)
[2018-09-28 09:47] LABS: POTASSIUM 2.6 MMOL/L (3.5-5.1)
[2018-09-28 10:18] LABS: PHOSPHORUS 4.8 MG/DL (2.5-4.9)
--- NOTE | 2018-09-28 10:25 | Infectious Diseases Prog Note ---
Assessment/Plan Assessment/Plan 62 yo male with PMHx of Quadriplegia with G-tube, HTN, DM and Schizophenia who was [facility]. Displaced GT with perforation c/w peritonitis and hematoma/abscess formation -09/22 SP Exploratory laparotomy. Repair of gastric perforation. Evacuation of abdominal omental / lesser sac hematoma. Evacuation of perisplenic hematoma/ abscess. Omentectomy. Splenectomy. Abdominal washout. Tracheostomy. -09/21 CT abd/p: The gastrostomy tube appears to be partially intraluminal and partially communicate with a large intramural collection involving mostly the inferior posterior wall of the stomach. There is some anterior wall pneumatosis. Contrast within the collection most likely represents instilled enteric contrast, but could also represent extravasated vascular contrast. There is evidence of rupture of this collection into the peritoneal space, with extravasated contrast in the left upper quadrant. There is anterior gastric wall intramural pneumatosis as well as a small amount of free extraluminal gas. Moderate ascites. Enhancement of much of the peritoneum raises concern for peritonitis. There may also be loculated intraperitoneal collections which could represent abscesses, predominantly adjacent to the tip of the right hepatic lobe, subcapsular in the spleen, and within the left upper quadrant. Thick-walled sigmoid colon, transverse colon and equivocally the proximal jejunum. Likely reactive related to the above, but could also indicate enteritis /colitis changes Septic shock 2ry to above, SP Leukocytosis, recurrent worsened-after procedure; improving -09/20 ucx NTD; u/a neg -09/19 CXR: Bilateral pleural effusions and bibasilar atelectasis/airspace disease are stable. Low grade fever; improving Diarrhea- -Cdiff neg GIB Sepsis - Probably PNA , s/p Rx 09/22 CXR: Bilateral pleural effusions, basilar atelectatic changes, and interstitial congestive changes are stable CXR 09/07/18 - possible left sided consolidation Inf neg 09/07/18 BCx 2/2 sets diphteroids, 1/2 setse S. epi (contaminants); 09/11 Bcx NTD 09/07/18 SCx - NF 09/07/18 UCx - Neg 09/09 Cdiff neg HTN DM Schizophenia Quadriplegia. G- tube dependent Plan -Continue Zosyn #7 and add IV Micafungin #6 in the setting of stomach perforation and intraabdominal fluid collections -d/c flagyl #3 -f/u Bcx x2, Urine Cx - 09/19/18 SP Zosyn #10 - 09/17/18 SP Vancmocyin #10 - 09/09/18 Ertapenem #3 - Monitor CBC and temps -Sx f/u -wound care We will continue to follow the patient during this hospitalization. Subjective Allergies: Coded Allergies: No Known Allergies (Unverified , 08/14/18) Subjective Tm 100.9 wbc improving Objective Vital Signs Last 24 Hour Vital Signs Date Time Temp Pulse Resp B/P (MAP) Pulse Ox O2 Delivery O2 Flow Rate FiO2 09/28/18 08:31 74 13 30 09/28/18 08:00 100.9 87 16 134/78 100 Mechanical Ventilator 30 09/28/18 07:15 67 14 30 09/28/18 05:29 81 19 30 09/28/18 04:00 Mechanical Ventilator Mechanical Ventilator 09/28/18 04:00 97.6 78 13 121/75 100 Mechanical Ventilator 30 09/28/18 04:00 30 09/28/18 03:41 77 09/28/18 03:17 76 15 30 09/28/18 01:37 88 18 30 09/28/18 00:00 30 09/28/18 00:00 99.1 75 13 125/76 100 Mechanical Ventilator 30 09/28/18 00:00 Mechanical Ventilator Mechanical Ventilator 09/27/18 23:37 70 09/27/18 23:16 70 13 30 09/27/18 20:56 82 22 30 09/27/18 20:00 Mechanical Ventilator Mechanical Ventilator 09/27/18 20:00 30 09/27/18 20:00 98.2 83 23 137/79 100 Mechanical Ventilator 30 09/27/18 19:43 84 09/27/18 19:15 86 25 30 09/27/18 16:45 75 15 30 09/27/18 16:00 75 09/27/18 16:00 30 09/27/18 16:00 Mechanical Ventilator Mechanical Ventilator 09/27/18 16:00 99.5 80 19 117/77 100 Mechanical Ventilator 30 09/27/18 15:29 80 13 30 09/27/18 13:07 62 15 30 09/27/18 12:00 30 09/27/18 12:00 97.9 64 12 131/76 100 Mechanical Ventilator 30 09/27/18 12:00 66 09/27/18 12:00 Mechanical Ventilator Mechanical Ventilator 09/27/18 10:32 64 12 30 Height (Feet): 5 Height (Inches): 5.00 Weight (Pounds): 120 Objective Gen: NAD, On vent satting well 35% O2 HEENT: NCAT, MMM, EOMI LUNGS: CTAB, No W/C, CARDS: RRR, S1, S2, No M/R/G, ABD: Soft, NT, distended, + BS,G tube (No E/P) NEURO: Intubated, not following Microbiology Date/Time Source Procedure Growth Status 09/27/18 04:00 Stool Clostridium difficile Toxin Assay - Final Complete Laboratory Tests Test 09/28/18 04:00 09/28/18 08:25 White Blood Count 11.9 K/UL (4.8-10.8) H Red Blood Count 2.92 M/UL (4.70-6.10) L Hemoglobin 9.6 G/DL (14.2-18.0) L Hematocrit 28.4 % (42.0-52.0) L Mean Corpuscular Volume 97 FL (80-99) # Mean Corpuscular Hemoglobin 32.9 PG (27.0-31.0) H Mean Corpuscular Hemoglobin Concent 33.8 G/DL (32.0-36.0) Red Cell Distribution Width 14.3 % (11.6-14.8) Platelet Count 504 K/UL (150-450) H Mean Platelet Volume 7.8 FL (6.5-10.1) Neutrophils (%) (Auto) 82.0 % (45.0-75.0) H Lymphocytes (%) (Auto) 8.4 % (20.0-45.0) L Monocytes (%) (Auto) 6.5 % (1.0-10.0) Eosinophils (%) (Auto) 2.1 % (0.0-3.0) Basophils (%) (Auto) 1.0 % (0.0-2.0) Phosphorus Level Pending Magnesium Level Pending Sodium Level 148 MMOL/L (136-145) H Potassium Level 2.6 MMOL/L (3.5-5.1) *L Chloride Level 115 MMOL/L (98-107) H Carbon Dioxide Level 22 MMOL/L (21-32) Anion Gap 12 mmol/L (5-15) Blood Urea Nitrogen 14 mg/dL (7-18) Creatinine 1.1 MG/DL (0.55-1.30) Estimat Glomerular Filtration Rate > 60 mL/min (>60) Glucose Level 204 MG/DL (74-106) #H Calcium Level 6.3 MG/DL (8.5-10.1) L Total Bilirubin 0.2 MG/DL (0.2-1.0) Aspartate Amino Transf (AST/SGOT) 19 U/L (15-37) Alanine Aminotransferase (ALT/SGPT) 12 U/L (12-78) Alkaline Phosphatase 83 U/L (46-116) Pro-B-Type Natriuretic Peptide 4605 pg/mL (0-125) H Total Protein 4.9 G/DL (6.4-8.2) L Albumin 1.0 G/DL (3.4-5.0) L Globulin 3.9 g/dL Albumin/Globulin Ratio 0.3 (1.0-2.7) L Current Medications Medications (Trade) Dose Ordered Sig/Julito Route PRN Reason Start Time Stop Time Status Last Admin Dose Admin Acetaminophen (Tylenol) 650 mg Q4H PRN NG Mild Pain/Temp > 100.5 09/24/18 12:15 10/08/18 12:14 Acetaminophen (Tylenol) 650 mg Q4H PRN RECTAL Mild Pain (Pain Scale 1-3) 09/25/18 21:00 10/25/18 20:59 09/25/18 21:17 Chlorhexidine Gluconate (Camila-Hex 2%) 1 applic DAILY@2000 TOPIC 09/24/18 20:00 10/15/18 19:59 09/27/18 20:03 Dextrose (Dextrose 50%) 25 ml Q30M PRN IV Hypoglycemia 09/24/18 12:30 10/08/18 13:29 Dextrose (Dextrose 50%) 50 ml Q30M PRN IV Hypoglycemia 09/24/18 12:30 10/08/18 13:29 Fat Emulsion Intravenous 216 ml/Amino Acids/ Electrolytes/ Dextrose 1,608 ml @ 67 mls/hr Q24H IV 09/25/18 05:30 10/25/18 05:29 09/28/18 05:53 Heparin Sodium (Porcine) (Heparin 5000 units/ml) 5,000 units EVERY 12 HOURS SUBQ 09/24/18 21:00 10/07/18 20:59 09/28/18 09:37 Insulin Aspart (NovoLOG) Q6HR SUBQ 09/24/18 12:00 10/08/18 11:59 09/28/18 05:52 Loperamide HCl (Imodium) 4 mg TIDPRN PRN ORAL Diarrhea 09/24/18 12:15 10/10/18 12:14 Metronidazole 100 ml @ 100 mls/hr Q8HR IVPB 09/26/18 22:00 10/03/18 21:59 09/28/18 05:47 Micafungin Sodium 100 mg/Sodium Chloride 110 ml @ 110 mls/hr Q24H IVPB 09/24/18 18:00 09/30/18 17:59 09/27/18 17:28 Ondansetron HCl (Zofran) 4 mg Q6H PRN IVP Nausea & Vomiting 09/24/18 12:15 10/07/18 12:14 Pantoprazole (Protonix) 40 mg Q12HR IVP 09/24/18 21:00 10/08/18 08:59 09/28/18 09:37 Phytonadione (Vitamin K) 10 mg QWEEK SUBQ 09/30/18 09:00 10/30/18 08:59 Piperacillin Sod/ Tazobactam Sod 3.375 gm/Sodium Chloride 110 ml @ 27.5 mls/hr EVERY 8 HOURS IVPB 09/24/18 14:00 10/07/18 13:59 09/28/18 05:47 Polyethylene Glycol (Miralax) 17 gm DAILYPRN PRN ORAL Constipation 09/24/18 12:15 10/07/18 12:14 Potassium Chloride 100 ml @ 100 mls/hr Q1H IVPB 09/28/18 10:00 09/28/18 15:59 Risperidone (RisperDAL) 0.25 mg QHS ORAL 09/24/18 21:00 10/10/18 20:59 09/27/18 20:04 Sodium Chloride 500 ml @ 999 mls/hr Q31M PRN IV SBP<90mmHg 09/24/18 12:15 10/08/18 10:59 Kell Larkin M.D. Sep 28, 2018 10:25
--- NOTE | 2018-09-28 11:00 | GI Progress Note ---
Assessment/Plan Problems: (1) G tube feedings ICD Codes: Z93.1 - Gastrostomy status SNOMED: 406003191, 357417101 (2) Protein-calorie malnutrition, severe ICD Codes: E43 - Unspecified severe protein-calorie malnutrition SNOMED: 941459960 (3) Anemia ICD Codes: D64.9 - Anemia, unspecified SNOMED: 809819184 (4) GI bleed ICD Codes: K92.2 - Gastrointestinal hemorrhage, unspecified SNOMED: 38274596 Status: stable Status Narrative Discussed with Dr. Horton. Assessment/Plan REOPERATIVE DIAGNOSES: 1. Malpositioned feeding tube with leak and peritonitis/perforation. 2. Respiratory insufficiency requiring prolonged ventilatory support. POSTOPERATIVE DIAGNOSES: 1. Large omental perigastric hematoma. 2. Malpositioned PEG tube with gastric perforation. 3. Large perisplenic abscess. 4. Abdominal peritonitis. 5. Respiratory insufficiency requiring prolonged ventilatory support. OPERATION PERFORMED: 1. Exploratory laparotomy. 2. Repair of gastric perforation. 3. Evacuation of abdominal omental / lesser sac hematoma. 4. Evacuation of perisplenic hematoma/abscess. 5. Omentectomy. 6. Splenectomy. 7. Abdominal washout. 8. Tracheostomy. RECOMMENDATIONS: fu surgical recommendations prn transfusion ppi GT site care daily/prn fu labs The patient was seen and examined at bedside and all new and available data was reviewed in the patients chart. I agree with the above findings, impression and plan. (Patient seen earlier today. Signature stamp does not reflect patient encounter time.). - Arthur Horton MD Subjective Subjective limited Objective Last 24 Hour Vital Signs Date Time Temp Pulse Resp B/P (MAP) Pulse Ox O2 Delivery O2 Flow Rate FiO2 09/28/18 10:44 88 17 30 09/28/18 08:31 74 13 30 09/28/18 08:00 100.9 87 16 134/78 100 Mechanical Ventilator 30 09/28/18 08:00 68 09/28/18 07:15 67 14 30 09/28/18 05:29 81 19 30 09/28/18 04:00 Mechanical Ventilator Mechanical Ventilator 09/28/18 04:00 97.6 78 13 121/75 100 Mechanical Ventilator 30 09/28/18 04:00 30 09/28/18 03:41 77 09/28/18 03:17 76 15 30 09/28/18 01:37 88 18 30 09/28/18 00:00 30 09/28/18 00:00 99.1 75 13 125/76 100 Mechanical Ventilator 30 09/28/18 00:00 Mechanical Ventilator Mechanical Ventilator 09/27/18 23:37 70 09/27/18 23:16 70 13 30 09/27/18 20:56 82 22 30 09/27/18 20:00 Mechanical Ventilator Mechanical Ventilator 09/27/18 20:00 30 09/27/18 20:00 98.2 83 23 137/79 100 Mechanical Ventilator 30 09/27/18 19:43 84 09/27/18 19:15 86 25 30 09/27/18 16:45 75 15 30 09/27/18 16:00 75 09/27/18 16:00 30 09/27/18 16:00 Mechanical Ventilator Mechanical Ventilator 09/27/18 16:00 99.5 80 19 117/77 100 Mechanical Ventilator 30 09/27/18 15:29 80 13 30 09/27/18 13:07 62 15 30 09/27/18 12:00 30 09/27/18 12:00 97.9 64 12 131/76 100 Mechanical Ventilator 30 09/27/18 12:00 66 09/27/18 12:00 Mechanical Ventilator Mechanical Ventilator Intake and Output 09/27/18 09/28/18 19:00 07:00 Intake Total 1606.5 ml 813.00 ml Output Total 1525 ml Balance 81.5 ml 813.00 ml IV Total 1606.5 ml 813.00 ml Output Urine Total 600 ml Stool Total 400 ml Drainage Total 525 ml Laboratory Tests Test 09/28/18 04:00 09/28/18 08:25 White Blood Count 11.9 K/UL (4.8-10.8) H Red Blood Count 2.92 M/UL (4.70-6.10) L Hemoglobin 9.6 G/DL (14.2-18.0) L Hematocrit 28.4 % (42.0-52.0) L Mean Corpuscular Volume 97 FL (80-99) # Mean Corpuscular Hemoglobin 32.9 PG (27.0-31.0) H Mean Corpuscular Hemoglobin Concent 33.8 G/DL (32.0-36.0) Red Cell Distribution Width 14.3 % (11.6-14.8) Platelet Count 504 K/UL (150-450) H Mean Platelet Volume 7.8 FL (6.5-10.1) Neutrophils (%) (Auto) 82.0 % (45.0-75.0) H Lymphocytes (%) (Auto) 8.4 % (20.0-45.0) L Monocytes (%) (Auto) 6.5 % (1.0-10.0) Eosinophils (%) (Auto) 2.1 % (0.0-3.0) Basophils (%) (Auto) 1.0 % (0.0-2.0) Phosphorus Level 4.8 MG/DL (2.5-4.9) Magnesium Level 1.8 MG/DL (1.8-2.4) Sodium Level 148 MMOL/L (136-145) H Potassium Level 2.6 MMOL/L (3.5-5.1) *L Chloride Level 115 MMOL/L (98-107) H Carbon Dioxide Level 22 MMOL/L (21-32) Anion Gap 12 mmol/L (5-15) Blood Urea Nitrogen 14 mg/dL (7-18) Creatinine 1.1 MG/DL (0.55-1.30) Estimat Glomerular Filtration Rate > 60 mL/min (>60) Glucose Level 204 MG/DL (74-106) #H Calcium Level 6.3 MG/DL (8.5-10.1) L Total Bilirubin 0.2 MG/DL (0.2-1.0) Aspartate Amino Transf (AST/SGOT) 19 U/L (15-37) Alanine Aminotransferase (ALT/SGPT) 12 U/L (12-78) Alkaline Phosphatase 83 U/L (46-116) Pro-B-Type Natriuretic Peptide 4605 pg/mL (0-125) H Total Protein 4.9 G/DL (6.4-8.2) L Albumin 1.0 G/DL (3.4-5.0) L Globulin 3.9 g/dL Albumin/Globulin Ratio 0.3 (1.0-2.7) L Height (Feet): 5 Height (Inches): 5.00 Weight (Pounds): 120 General Appearance: no apparent distress Cardiovascular: normal rate Respiratory/Chest: normal breath sounds, no respiratory distress Abdominal Exam: normal bowel sounds, non tender, soft Extremities: non-tender Becki Holt NP Sep 28, 2018 11:00
--- NOTE | 2018-09-28 11:15 | Pulmonolgy Critical Care Note ---
Critical Care - Asmt/Plan Problems: (1) Acute respiratory failure (2) Septic shock (3) ATN (acute tubular necrosis) (4) Metabolic acidosis (5) Gastric rupture Respiratory: monitor respiratory rate, adjust FIO2, CXR Cardiac: continue to monitor HR/BP Renal: F/U I&O, keep IV fluid, check electrolytes Infectious Disease: check cultures, continue antibiotics Gastrointestinal: continue feedings/current rate Endocrine: monitor blood sugar, continue sliding scale insulin Hematologic: transfuse if hgb<8.5 Neurologic: PRN Ativan, PRN Morphine, keep patient comfortable Affect: PRN ativan Prophylaxis: Heparin Time Spent (Minutes): 40 Notes 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, 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, 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 Discussed with: nurses, consultants, 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 - Objective Last 24 Hour Vital Signs Date Time Temp Pulse Resp B/P (MAP) Pulse Ox O2 Delivery O2 Flow Rate FiO2 09/28/18 10:44 88 17 30 09/28/18 08:31 74 13 30 09/28/18 08:00 100.9 87 16 134/78 100 Mechanical Ventilator 30 09/28/18 08:00 68 09/28/18 07:15 67 14 30 09/28/18 05:29 81 19 30 09/28/18 04:00 Mechanical Ventilator Mechanical Ventilator 09/28/18 04:00 97.6 78 13 121/75 100 Mechanical Ventilator 30 09/28/18 04:00 30 09/28/18 03:41 77 09/28/18 03:17 76 15 30 09/28/18 01:37 88 18 30 09/28/18 00:00 30 09/28/18 00:00 99.1 75 13 125/76 100 Mechanical Ventilator 30 09/28/18 00:00 Mechanical Ventilator Mechanical Ventilator 09/27/18 23:37 70 09/27/18 23:16 70 13 30 09/27/18 20:56 82 22 30 09/27/18 20:00 Mechanical Ventilator Mechanical Ventilator 09/27/18 20:00 30 09/27/18 20:00 98.2 83 23 137/79 100 Mechanical Ventilator 30 09/27/18 19:43 84 09/27/18 19:15 86 25 30 09/27/18 16:45 75 15 30 09/27/18 16:00 75 09/27/18 16:00 30 09/27/18 16:00 Mechanical Ventilator Mechanical Ventilator 09/27/18 16:00 99.5 80 19 117/77 100 Mechanical Ventilator 30 09/27/18 15:29 80 13 30 09/27/18 13:07 62 15 30 09/27/18 12:00 30 09/27/18 12:00 97.9 64 12 131/76 100 Mechanical Ventilator 30 09/27/18 12:00 66 09/27/18 12:00 Mechanical Ventilator Mechanical Ventilator Status: awake Condition: critical HEENT: atraumatic Neck: full ROM Heart: HR/BP stable Abdomen: soft, non-tender, feeding tube Extremities: edema Decubiti: stage Micro: Microbiology Date/Time Source Procedure Growth Status 09/27/18 04:00 Stool Clostridium difficile Toxin Assay - Final Complete Accucheck: 171 Critical Care - Subjective ROS Limited/Unobtainable: Yes Interval Events: wbc decreasing Condition: critical EKG Rhythm: Sinus Rhythm FI02: 30 Vent Support Breath Rate: 12 Vent Support Mode: AC Vent Tidal Volume: 600 Sputum Amount: Small PEEP: 0.0 PIP: 17 Tube Feeding Amount: 0 I&O: Intake and Output 09/27/18 09/28/18 19:00 07:00 Intake Total 1606.5 ml 813.00 ml Output Total 1525 ml Balance 81.5 ml 813.00 ml IV Total 1606.5 ml 813.00 ml Output Urine Total 600 ml Stool Total 400 ml Drainage Total 525 ml CXR: right effusion Labs: Laboratory Tests Test 09/28/18 04:00 09/28/18 08:25 White Blood Count 11.9 K/UL (4.8-10.8) H Red Blood Count 2.92 M/UL (4.70-6.10) L Hemoglobin 9.6 G/DL (14.2-18.0) L Hematocrit 28.4 % (42.0-52.0) L Mean Corpuscular Volume 97 FL (80-99) # Mean Corpuscular Hemoglobin 32.9 PG (27.0-31.0) H Mean Corpuscular Hemoglobin Concent 33.8 G/DL (32.0-36.0) Red Cell Distribution Width 14.3 % (11.6-14.8) Platelet Count 504 K/UL (150-450) H Mean Platelet Volume 7.8 FL (6.5-10.1) Neutrophils (%) (Auto) 82.0 % (45.0-75.0) H Lymphocytes (%) (Auto) 8.4 % (20.0-45.0) L Monocytes (%) (Auto) 6.5 % (1.0-10.0) Eosinophils (%) (Auto) 2.1 % (0.0-3.0) Basophils (%) (Auto) 1.0 % (0.0-2.0) Phosphorus Level 4.8 MG/DL (2.5-4.9) Magnesium Level 1.8 MG/DL (1.8-2.4) Sodium Level 148 MMOL/L (136-145) H Potassium Level 2.6 MMOL/L (3.5-5.1) *L Chloride Level 115 MMOL/L (98-107) H Carbon Dioxide Level 22 MMOL/L (21-32) Anion Gap 12 mmol/L (5-15) Blood Urea Nitrogen 14 mg/dL (7-18) Creatinine 1.1 MG/DL (0.55-1.30) Estimat Glomerular Filtration Rate > 60 mL/min (>60) Glucose Level 204 MG/DL (74-106) #H Calcium Level 6.3 MG/DL (8.5-10.1) L Total Bilirubin 0.2 MG/DL (0.2-1.0) Aspartate Amino Transf (AST/SGOT) 19 U/L (15-37) Alanine Aminotransferase (ALT/SGPT) 12 U/L (12-78) Alkaline Phosphatase 83 U/L (46-116) Pro-B-Type Natriuretic Peptide 4605 pg/mL (0-125) H Total Protein 4.9 G/DL (6.4-8.2) L Albumin 1.0 G/DL (3.4-5.0) L Globulin 3.9 g/dL Albumin/Globulin Ratio 0.3 (1.0-2.7) L Po Li MD Sep 28, 2018 11:15
[2018-09-28 12:00] VITALS: BP 131/80
--- NOTE | 2018-09-28 12:29 | Nephrology Progress Note ---
Assessment/Plan Problem List: (1) ATN (acute tubular necrosis) Assessment: Cr rising post op but lowering (2) Septic shock (3) Lactic acid acidosis (4) Metabolic acidosis (5) Hyperkalemia (6) G tube feedings (7) Acute respiratory failure Assessment post op 09/22/18: Trach, Splenectomy, Perf.... over all improved: cr rising again presented with Shock , likely septic Acute renal failure resolved Acute metabolic acidosis resolved Hyperkalemia PEG Recent Pneumonia Plan plan: K and Phos supplements on tpn now trached 09/22 post laparatomy 09/22 off pressors pulmonary support Fluid challenge as needed Silva K and Phos and Mag supplement as needed antibiotics monitor renal parameters and ABG poor prognosis Subjective ROS Limited/Unobtainable: Yes Objective Objective Last 24 Hour Vital Signs Date Time Temp Pulse Resp B/P (MAP) Pulse Ox O2 Delivery O2 Flow Rate FiO2 09/28/18 12:00 98.2 79 18 131/80 97 Mechanical Ventilator 30 09/28/18 12:00 Mechanical Ventilator Mechanical Ventilator 09/28/18 12:00 30 09/28/18 10:44 88 17 30 09/28/18 08:31 74 13 30 09/28/18 08:00 Mechanical Ventilator Mechanical Ventilator 09/28/18 08:00 100.9 87 16 134/78 100 Mechanical Ventilator 30 09/28/18 08:00 30 09/28/18 08:00 68 09/28/18 07:15 67 14 30 09/28/18 05:29 81 19 30 09/28/18 04:00 Mechanical Ventilator Mechanical Ventilator 09/28/18 04:00 97.6 78 13 121/75 100 Mechanical Ventilator 30 09/28/18 04:00 30 09/28/18 03:41 77 09/28/18 03:17 76 15 30 09/28/18 01:37 88 18 30 09/28/18 00:00 30 09/28/18 00:00 99.1 75 13 125/76 100 Mechanical Ventilator 30 09/28/18 00:00 Mechanical Ventilator Mechanical Ventilator 09/27/18 23:37 70 09/27/18 23:16 70 13 30 09/27/18 20:56 82 22 30 09/27/18 20:00 Mechanical Ventilator Mechanical Ventilator 09/27/18 20:00 30 09/27/18 20:00 98.2 83 23 137/79 100 Mechanical Ventilator 30 09/27/18 19:43 84 09/27/18 19:15 86 25 30 09/27/18 16:45 75 15 30 09/27/18 16:00 75 09/27/18 16:00 30 09/27/18 16:00 Mechanical Ventilator Mechanical Ventilator 09/27/18 16:00 99.5 80 19 117/77 100 Mechanical Ventilator 30 09/27/18 15:29 80 13 30 09/27/18 13:07 62 15 30 Intake and Output 09/27/18 09/28/18 19:00 07:00 Intake Total 1606.5 ml 813.00 ml Output Total 1525 ml Balance 81.5 ml 813.00 ml IV Total 1606.5 ml 813.00 ml Output Urine Total 600 ml Stool Total 400 ml Drainage Total 525 ml Laboratory Tests 09/28/18 04:00: White Blood Count 11.9H, Red Blood Count 2.92L, Hemoglobin 9.6L, Hematocrit 28.4L, Mean Corpuscular Volume 97#, Mean Corpuscular Hemoglobin 32.9H, Mean Corpuscular Hemoglobin Concent 33.8, Red Cell Distribution Width 14.3, Platelet Count 504H, Mean Platelet Volume 7.8, Neutrophils (%) (Auto) 82.0H, Lymphocytes (%) (Auto) 8.4L, Monocytes (%) (Auto) 6.5, Eosinophils (%) (Auto) 2.1, Basophils (%) (Auto) 1.0, Phosphorus Level 4.8, Magnesium Level 1.8 09/28/18 08:25: Sodium Level 148H, Potassium Level 2.6*L, Chloride Level 115H, Carbon Dioxide Level 22, Anion Gap 12, Blood Urea Nitrogen 14, Creatinine 1.1, Estimat Glomerular Filtration Rate > 60, Glucose Level 204#H, Calcium Level 6.3L, Total Bilirubin 0.2, Aspartate Amino Transf (AST/SGOT) 19, Alanine Aminotransferase ( ALT/SGPT) 12, Alkaline Phosphatase 83, Pro-B-Type Natriuretic Peptide 4605H, Total Protein 4.9L, Albumin 1.0L, Globulin 3.9, Albumin/Globulin Ratio 0.3L Height (Feet): 5 Height (Inches): 5.00 Weight (Pounds): 120 General Appearance: no apparent distress EENT: other - trach Cardiovascular: normal rate Respiratory/Chest: decreased breath sounds Abdomen: soft Objective no other changes Josesito Smalls MD Sep 28, 2018 12:29
--- NOTE | 2018-09-28 14:55 | General Progress Note ---
Assessment/Plan Problem List: (1) GI bleed ICD Codes: K92.2 - Gastrointestinal hemorrhage, unspecified SNOMED: 99623792 (2) Protein-calorie malnutrition, severe ICD Codes: E43 - Unspecified severe protein-calorie malnutrition SNOMED: 502646167 (3) Septic shock ICD Codes: A41.9 - Sepsis, unspecified organism; R65.21 - Severe sepsis with septic shock SNOMED: 48129063 Status: progressing Assessment/Plan moniter for gi bleeding vitals holding no acute events check h/h sepsis afebrile vitals stable Subjective ROS Limited/Unobtainable: Yes Allergies: Coded Allergies: No Known Allergies (Unverified , 08/14/18) Objective Last 24 Hour Vital Signs Date Time Temp Pulse Resp B/P (MAP) Pulse Ox O2 Delivery O2 Flow Rate FiO2 09/28/18 14:31 76 15 30 09/28/18 12:33 83 16 30 09/28/18 12:00 98.2 79 18 131/80 97 Mechanical Ventilator 30 09/28/18 12:00 Mechanical Ventilator Mechanical Ventilator 09/28/18 12:00 30 09/28/18 11:53 74 09/28/18 10:44 88 17 30 09/28/18 08:31 74 13 30 09/28/18 08:00 Mechanical Ventilator Mechanical Ventilator 09/28/18 08:00 100.9 87 16 134/78 100 Mechanical Ventilator 30 09/28/18 08:00 30 09/28/18 08:00 68 09/28/18 07:15 67 14 30 09/28/18 05:29 81 19 30 09/28/18 04:00 Mechanical Ventilator Mechanical Ventilator 09/28/18 04:00 97.6 78 13 121/75 100 Mechanical Ventilator 30 09/28/18 04:00 30 09/28/18 03:41 77 09/28/18 03:17 76 15 30 09/28/18 01:37 88 18 30 09/28/18 00:00 30 09/28/18 00:00 99.1 75 13 125/76 100 Mechanical Ventilator 30 09/28/18 00:00 Mechanical Ventilator Mechanical Ventilator 09/27/18 23:37 70 09/27/18 23:16 70 13 30 09/27/18 20:56 82 22 30 09/27/18 20:00 Mechanical Ventilator Mechanical Ventilator 09/27/18 20:00 30 09/27/18 20:00 98.2 83 23 137/79 100 Mechanical Ventilator 30 09/27/18 19:43 84 09/27/18 19:15 86 25 30 09/27/18 16:45 75 15 30 09/27/18 16:00 75 09/27/18 16:00 30 09/27/18 16:00 Mechanical Ventilator Mechanical Ventilator 09/27/18 16:00 99.5 80 19 117/77 100 Mechanical Ventilator 30 09/27/18 15:29 80 13 30 Intake and Output 09/27/18 09/28/18 19:00 07:00 Intake Total 1606.5 ml 813.00 ml Output Total 1525 ml Balance 81.5 ml 813.00 ml IV Total 1606.5 ml 813.00 ml Output Urine Total 600 ml Stool Total 400 ml Drainage Total 525 ml Laboratory Tests 09/28/18 04:00: White Blood Count 11.9H, Red Blood Count 2.92L, Hemoglobin 9.6L, Hematocrit 28.4L, Mean Corpuscular Volume 97#, Mean Corpuscular Hemoglobin 32.9H, Mean Corpuscular Hemoglobin Concent 33.8, Red Cell Distribution Width 14.3, Platelet Count 504H, Mean Platelet Volume 7.8, Neutrophils (%) (Auto) 82.0H, Lymphocytes (%) (Auto) 8.4L, Monocytes (%) (Auto) 6.5, Eosinophils (%) (Auto) 2.1, Basophils (%) (Auto) 1.0, Phosphorus Level 4.8, Magnesium Level 1.8 09/28/18 08:25: Sodium Level 148H, Potassium Level 2.6*L, Chloride Level 115H, Carbon Dioxide Level 22, Anion Gap 12, Blood Urea Nitrogen 14, Creatinine 1.1, Estimat Glomerular Filtration Rate > 60, Glucose Level 204#H, Calcium Level 6.3L, Total Bilirubin 0.2, Aspartate Amino Transf (AST/SGOT) 19, Alanine Aminotransferase ( ALT/SGPT) 12, Alkaline Phosphatase 83, C-Reactive Protein, Quantitative 11.5H, Pro-B-Type Natriuretic Peptide 4605H, Total Protein 4.9L, Albumin 1.0L, Globulin 3.9, Albumin/Globulin Ratio 0.3L Height (Feet): 5 Height (Inches): 5.00 Weight (Pounds): 120 General Appearance: confused EENT: TMs normal Cardiovascular: normal rate Pinky Bhatia MD Sep 28, 2018 14:55
--- NOTE | 2018-09-28 15:24 | Cardiac Electrophysiology PN ---
Assessment/Plan Assessment/Plan 1. S/P Septic and hemorrhagic shock with Lactic acidosis. On Abx and S/P PRBC 2. Sinus tachycardia with heart rate in 140s due to sepsis, anemia and dehydration. No fibrillation. EF 75%. HR in 90s now 3. Troponin elevation due to renal failure. EF 75%. 4. Respiratory failure on the vent. S/P Tracheostomy 09/22/18 5. Rhabdomyolysis with CPK in thousands. May be contributing to renal failure. 6. Acute renal failure and severe hyperkalemia. FU by Dr. Smalls 7. Dysphagia, Hx of PEG placement but was dislodged. 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 Smalls Still has the drain 8. GI bleed. S/P EGD by Dr. Horton. S/p PRBCs DW RN Subjective Subjective On the Vent via tracheostomy.Still draining from abdominal drain On TPN and Lipid Objective Last 24 Hour Vital Signs Date Time Temp Pulse Resp B/P (MAP) Pulse Ox O2 Delivery O2 Flow Rate FiO2 09/28/18 14:31 76 15 30 09/28/18 12:33 83 16 30 09/28/18 12:00 98.2 79 18 131/80 97 Mechanical Ventilator 30 09/28/18 12:00 Mechanical Ventilator Mechanical Ventilator 09/28/18 12:00 30 09/28/18 11:53 74 09/28/18 10:44 88 17 30 09/28/18 08:31 74 13 30 09/28/18 08:00 Mechanical Ventilator Mechanical Ventilator 09/28/18 08:00 100.9 87 16 134/78 100 Mechanical Ventilator 30 09/28/18 08:00 30 09/28/18 08:00 68 09/28/18 07:15 67 14 30 09/28/18 05:29 81 19 30 09/28/18 04:00 Mechanical Ventilator Mechanical Ventilator 09/28/18 04:00 97.6 78 13 121/75 100 Mechanical Ventilator 30 09/28/18 04:00 30 09/28/18 03:41 77 09/28/18 03:17 76 15 30 09/28/18 01:37 88 18 30 09/28/18 00:00 30 09/28/18 00:00 99.1 75 13 125/76 100 Mechanical Ventilator 30 09/28/18 00:00 Mechanical Ventilator Mechanical Ventilator 09/27/18 23:37 70 09/27/18 23:16 70 13 30 09/27/18 20:56 82 22 30 09/27/18 20:00 Mechanical Ventilator Mechanical Ventilator 09/27/18 20:00 30 09/27/18 20:00 98.2 83 23 137/79 100 Mechanical Ventilator 30 09/27/18 19:43 84 09/27/18 19:15 86 25 30 09/27/18 16:45 75 15 30 09/27/18 16:00 75 09/27/18 16:00 30 09/27/18 16:00 Mechanical Ventilator Mechanical Ventilator 09/27/18 16:00 99.5 80 19 117/77 100 Mechanical Ventilator 30 09/27/18 15:29 80 13 30 Intake and Output 09/27/18 09/28/18 19:00 07:00 Intake Total 1606.5 ml 813.00 ml Output Total 1525 ml Balance 81.5 ml 813.00 ml IV Total 1606.5 ml 813.00 ml Output Urine Total 600 ml Stool Total 400 ml Drainage Total 525 ml Laboratory Tests Test 09/28/18 04:00 09/28/18 08:25 White Blood Count 11.9 K/UL (4.8-10.8) H Red Blood Count 2.92 M/UL (4.70-6.10) L Hemoglobin 9.6 G/DL (14.2-18.0) L Hematocrit 28.4 % (42.0-52.0) L Mean Corpuscular Volume 97 FL (80-99) # Mean Corpuscular Hemoglobin 32.9 PG (27.0-31.0) H Mean Corpuscular Hemoglobin Concent 33.8 G/DL (32.0-36.0) Red Cell Distribution Width 14.3 % (11.6-14.8) Platelet Count 504 K/UL (150-450) H Mean Platelet Volume 7.8 FL (6.5-10.1) Neutrophils (%) (Auto) 82.0 % (45.0-75.0) H Lymphocytes (%) (Auto) 8.4 % (20.0-45.0) L Monocytes (%) (Auto) 6.5 % (1.0-10.0) Eosinophils (%) (Auto) 2.1 % (0.0-3.0) Basophils (%) (Auto) 1.0 % (0.0-2.0) Phosphorus Level 4.8 MG/DL (2.5-4.9) Magnesium Level 1.8 MG/DL (1.8-2.4) Sodium Level 148 MMOL/L (136-145) H Potassium Level 2.6 MMOL/L (3.5-5.1) *L Chloride Level 115 MMOL/L (98-107) H Carbon Dioxide Level 22 MMOL/L (21-32) Anion Gap 12 mmol/L (5-15) Blood Urea Nitrogen 14 mg/dL (7-18) Creatinine 1.1 MG/DL (0.55-1.30) Estimat Glomerular Filtration Rate > 60 mL/min (>60) Glucose Level 204 MG/DL (74-106) #H Calcium Level 6.3 MG/DL (8.5-10.1) L Total Bilirubin 0.2 MG/DL (0.2-1.0) Aspartate Amino Transf (AST/SGOT) 19 U/L (15-37) Alanine Aminotransferase (ALT/SGPT) 12 U/L (12-78) Alkaline Phosphatase 83 U/L (46-116) C-Reactive Protein, Quantitative 11.5 mg/dL (0.00-0.90) H Pro-B-Type Natriuretic Peptide 4605 pg/mL (0-125) H Total Protein 4.9 G/DL (6.4-8.2) L Albumin 1.0 G/DL (3.4-5.0) L Globulin 3.9 g/dL Albumin/Globulin Ratio 0.3 (1.0-2.7) L Microbiology Date/Time Source Procedure Growth Status 09/27/18 04:00 Stool Clostridium difficile Toxin Assay - Final Complete Objective HEENT: S/P tracheostomy. No JVD LUNGS: Coarse rhonchi. CARDIOVASCULAR: Tachycardic S1 and S2. ABDOMEN: Post op covered with dressing and drain EXTREMITIES: No pitting edema. Jasbir Madsen MD Sep 28, 2018 15:24
--- NOTE | 2018-09-28 15:30 | Progress Note ---
DATE: 09/28/2018 SUBJECTIVE: This is a 62-year-old male with septic shock. He is confused and disorganized. He has got altered mental status. He has got no logical plan for his own self-care. He has some confusion and some disorganized thought process, mood lability. He is currently seen in the step-down unit. He has septic shock but he has altered mental status as well. MENTAL STATUS EXAMINATION: A 62-year-old male. He has auditory hallucinations and paranoid delusions, disorganized thought process. No signs of any suicidal or homicidal thoughts. Insight and judgment is poor. DIAGNOSIS: Paranoid schizophrenia with acute exacerbation. PLAN: Risperdal 0.25 mg a day. Provide him with 20 minutes of behavioral management. The patient is seen and assessed at bedside. Chart reviewed. Discussed with staff Virgie Mcdermott M.D. DR: Gerri JOB#: [id number] CC:
[2018-09-28 16:00] VITALS: BP 124/76
[2018-09-28] MEDS: Micafungin 100 MG in NS 110 ML IVPB SCH (17:56)
[2018-09-28 18:59] LABS: APPEARANCE,URINE CLEAR; BILIRUBIN, URINE NEGATIVE (NEGATIVE); COLOR,URINE PALE YELLOW; GLUCOSE, URINE (UA) NEGATIVE (NEGATIVE); KETONES,URINE NEGATIVE (NEGATIVE); LEUKOCYTE ESTERASE ,URINE 1+ (NEGATIVE); NITRITE,URINE NEGATIVE (NEGATIVE); PH,URINE 6 (4.5-8.0); PROTEIN,URINE 2+ (NEGATIVE); UROBILINOGEN,URINE NORMAL MG/DL (0.0-1.0)
[2018-09-28 20:00] VITALS: BP 131/83
[2018-09-28] MEDS ORDERED: D5NS 1000ml IV ONE ×2 (20:02→20:29)
[2018-09-28] MEDS ORDERED: Tubing Blood Filter IV ONE (20:02)
[2018-09-28] MEDS ORDERED: Sterile Water For Irrig 2000ml IRRIG ONE (20:29)
[2018-09-28] MEDS ORDERED: Tubing IV Secondary IV ONE (20:29)
[2018-09-28] MEDS: Dyna-Hex 2% Top Sol 2oz TOPIC SCH (20:31)
[2018-09-28] MEDS ORDERED: D5 1/2NS 1000ml IV ONE (20:33)
[2018-09-29] VITALS (7 sets, daily range): BP systolic 126–142; BP diastolic 82–88
[2018-09-29] MEDS: NovoLOG Insulin Flexpen SUBQ SCH ×4 (00:26→17:17)
[2018-09-29] MEDS: TPN IV SCH (04:35)
[2018-09-29] MEDS: FAT EMULSION 20% IV SCH (04:35)
[2018-09-29] MEDS: Piperacillin/Tazobactam 3.375 GM in NS 110 ML IVPB SCH ×3 (05:04→21:00)
[2018-09-29 05:41] LABS: BASOPHILS % (AUTO) 1.4 % (0.0-2.0); EOSINOPHILS % (AUTO) 2.8 % (0.0-3.0); HEMATOCRIT 29.3 % (42.0-52.0); HEMOGLOBIN 9.7 G/DL (14.2-18.0); LYMPHOCYTES % (AUTO) 6.2 % (20.0-45.0); MEAN CORPUSCULAR VOLUME 89 FL (80-99); MONOCYTES % (AUTO) 4.6 % (1.0-10.0); NEUTROPHILS % (AUTO) 84.9 % (45.0-75.0); PLATELET COUNT 605 K/UL (150-450); RED BLOOD COUNT 3.28 M/UL (4.70-6.10); WHITE BLOOD COUNT 15.4 K/UL (4.8-10.8)
[2018-09-29 06:39] LABS: ALANINE AMINOTRANSFERASE 11 U/L (12-78); ALBUMIN/GLOBULIN RATIO 0.2 (1.0-2.7); ALKALINE PHOSPHATASE 85 U/L (46-116); ANION GAP 11 mmol/L (5-15); ASPARTATE AMINO TRANSFERASE 21 U/L (15-37); BILIRUBIN,TOTAL 0.2 MG/DL (0.2-1.0); BLOOD UREA NITROGEN 15 mg/dL (7-18); CALCIUM 6.4 MG/DL (8.5-10.1); CARBON DIOXIDE 20 MMOL/L (21-32); CHLORIDE 115 MMOL/L (98-107); PHOSPHORUS 1.8 MG/DL (2.5-4.9); POTASSIUM 3.1 MMOL/L (3.5-5.1); SODIUM 146 MMOL/L (136-145)
[2018-09-29] MEDS: Pantoprazole Inj IVP SCH ×2 (08:11→20:42)
[2018-09-29] MEDS: Heparin 5000 units/ml inj SUBQ SCH ×2 (08:13→20:44)
--- NOTE | 2018-09-29 09:51 | Diagnostic Imaging Report ---
Indication: Reason For Exam: [id number] Technique: One view of the chest Comparison: 09/28/2018 Findings: Interim development of extensive bilateral supraclavicular subcutaneous emphysema. There is minimal subcutaneous emphysema in the right upper chest wall as well. Linear opacities along the mediastinum as well as rather sharp outline of the cardiac apex suggests pneumomediastinum as well. No definite pneumothorax demonstrated. Low lung volumes with basilar atelectatic changes are again demonstrated. Left-sided pleural effusion again demonstrated. Impression: Over one day, interim development of bilateral supraclavicular subcutaneous emphysema and pneumomediastinum, etiology not demonstrated. This finding was reported to Dr. Li at the time of interpretation Persistent low lung volumes with basilar atelectatic changes and left-sided pleural effusion
[2018-09-29] MEDS ORDERED: Potassium Phosphate 30 MM in NS 275 ML IV SCH (11:00)
--- NOTE | 2018-09-29 11:33 | Infectious Diseases Prog Note ---
Assessment/Plan Assessment/Plan 62 yo male with PMHx of Quadriplegia with G-tube, HTN, DM and Schizophenia who was sent to the ED fromhis detention for AMS. Displaced GT with perforation c/w peritonitis and hematoma/abscess formation -09/22 SP Exploratory laparotomy. Repair of gastric perforation. Evacuation of abdominal omental / lesser sac hematoma. Evacuation of perisplenic hematoma/ abscess. Omentectomy. Splenectomy. Abdominal washout. Tracheostomy. -09/21 CT abd/p: The gastrostomy tube appears to be partially intraluminal and partially communicate with a large intramural collection involving mostly the inferior posterior wall of the stomach. There is some anterior wall pneumatosis. Contrast within the collection most likely represents instilled enteric contrast, but could also represent extravasated vascular contrast. There is evidence of rupture of this collection into the peritoneal space, with extravasated contrast in the left upper quadrant. There is anterior gastric wall intramural pneumatosis as well as a small amount of free extraluminal gas. Moderate ascites. Enhancement of much of the peritoneum raises concern for peritonitis. There may also be loculated intraperitoneal collections which could represent abscesses, predominantly adjacent to the tip of the right hepatic lobe, subcapsular in the spleen, and within the left upper quadrant. Thick-walled sigmoid colon, transverse colon and equivocally the proximal jejunum. Likely reactive related to the above, but could also indicate enteritis /colitis changes Septic shock 2ry to above, SP Leukocytosis, recurrent worsened-after procedure; improving -09/28 u/a neg, ucx NTD Bcx p CXR: Over one day, interim development of bilateral supraclavicular subcutaneous emphysema and pneumomediastinum, etiology not demonstrated. Persistent low lung volumes with basilar atelectatic changes and left-sided pleural effusion -09/20 ucx NTD; u/a neg -09/19 CXR: Bilateral pleural effusions and bibasilar atelectasis/airspace disease are stable. Low grade fever; improving Diarrhea- -09/27 Cdiff neg GIB Sepsis - Probably PNA , s/p Rx 09/22 CXR: Bilateral pleural effusions, basilar atelectatic changes, and interstitial congestive changes are stable CXR 09/07/18 - possible left sided consolidation Inf neg 09/07/18 BCx 2/2 sets diphteroids, 1/2 setse S. epi (contaminants); 09/11 Bcx NTD 09/07/18 SCx - NF 09/07/18 UCx - Neg 09/09 Cdiff neg HTN DM Schizophenia Quadriplegia. G- tube dependent Plan -Continue Zosyn #03/24 and add IV Micafungin #02/21 in the setting of stomach perforation and intraabdominal fluid collections -f/u Bcx x2, Urine Cx -09/28 SP Flagyl #3 - 09/19/18 SP Zosyn #10 - 09/17/18 SP Vancmocyin #10 - 09/09/18 Ertapenem #3 -If WBC continues to increase will repeat CT abd/p to evaluate for drainable fluid collections/abscess - Monitor CBC and temps -Sx f/u -wound care We will continue to follow the patient during this hospitalization. Subjective Allergies: Coded Allergies: No Known Allergies (Unverified , 08/14/18) Subjective afebrile in >24hrs cdiff neg wbc increased Objective Vital Signs Last 24 Hour Vital Signs Date Time Temp Pulse Resp B/P (MAP) Pulse Ox O2 Delivery O2 Flow Rate FiO2 09/29/18 10:54 88 17 30 09/29/18 08:48 90 20 30 09/29/18 08:00 30 09/29/18 08:00 99.9 88 18 141/86 100 Mechanical Ventilator 30 09/29/18 08:00 Mechanical Ventilator Mechanical Ventilator 09/29/18 07:43 76 09/29/18 07:02 83 20 30 09/29/18 04:45 84 21 30 09/29/18 04:00 81 09/29/18 04:00 Mechanical Ventilator Mechanical Ventilator 09/29/18 04:00 30 09/29/18 04:00 99.0 80 22 139/85 100 Mechanical Ventilator 30 09/29/18 03:17 78 14 30 09/29/18 00:40 84 18 30 09/29/18 00:00 98.8 78 15 134/82 99 Mechanical Ventilator 30 09/29/18 00:00 30 09/29/18 00:00 Mechanical Ventilator Mechanical Ventilator 09/29/18 00:00 88 09/28/18 23:29 78 17 30 09/28/18 22:08 90 16 Mechanical Ventilator 30 09/28/18 21:12 89 16 30 09/28/18 20:00 99.2 89 16 131/83 99 Mechanical Ventilator 30 09/28/18 20:00 Mechanical Ventilator Mechanical Ventilator 09/28/18 20:00 30 09/28/18 20:00 75 09/28/18 19:00 90 16 30 09/28/18 17:04 94 09/28/18 17:00 86 19 30 09/28/18 16:00 98.4 90 16 124/76 99 Mechanical Ventilator 30 09/28/18 16:00 Mechanical Ventilator Mechanical Ventilator 09/28/18 16:00 30 09/28/18 14:31 76 15 30 09/28/18 12:33 83 16 30 09/28/18 12:00 98.2 79 18 131/80 97 Mechanical Ventilator 30 09/28/18 12:00 Mechanical Ventilator Mechanical Ventilator 09/28/18 12:00 30 09/28/18 11:53 74 Height (Feet): 5 Height (Inches): 5.00 Weight (Pounds): 121 Objective Gen: NAD, On vent satting well 35% O2 HEENT: NCAT, MMM, EOMI LUNGS: CTAB, No W/C, CARDS: RRR, S1, S2, No M/R/G, ABD: Soft, NT, distended, + BS,G tube (No E/P) NEURO: Intubated, not following Microbiology Date/Time Source Procedure Growth Status 09/27/18 04:00 Stool Clostridium difficile Toxin Assay - Final Complete 09/28/18 18:45 Urine,Clean Catch Urine Culture - Preliminary NO GROWTH Resulted Laboratory Tests Test 09/28/18 18:45 09/29/18 03:20 09/29/18 08:10 Urine Color Pale yellow Urine Appearance Clear Urine pH 6 (4.5-8.0) Urine Specific [place] 1.010 (1.005-1.035) Urine Protein 2+ (NEGATIVE) H Urine Glucose (UA) Negative (NEGATIVE) Urine Ketones Negative (NEGATIVE) Urine Blood 1+ (NEGATIVE) H Urine Nitrite Negative (NEGATIVE) Urine Bilirubin Negative (NEGATIVE) Urine Urobilinogen Normal MG/DL (0.0-1.0) Urine Leukocyte Esterase 1+ (NEGATIVE) H Urine RBC 0-2 /HPF (0 - 0) H Urine WBC 2-4 /HPF (0 - 0) Urine Squamous Epithelial Cells None /LPF (NONE/OCC) Urine Bacteria Moderate /HPF (NONE) H Urine Yeast Few /HPF (NONE) H White Blood Count 15.4 K/UL (4.8-10.8) H Red Blood Count 3.28 M/UL (4.70-6.10) L Hemoglobin 9.7 G/DL (14.2-18.0) L Hematocrit 29.3 % (42.0-52.0) L Mean Corpuscular Volume 89 FL (80-99) # Mean Corpuscular Hemoglobin 29.5 PG (27.0-31.0) Mean Corpuscular Hemoglobin Concent 33.1 G/DL (32.0-36.0) Red Cell Distribution Width 13.0 % (11.6-14.8) Platelet Count 605 K/UL (150-450) H Mean Platelet Volume 6.4 FL (6.5-10.1) L Neutrophils (%) (Auto) 84.9 % (45.0-75.0) H Lymphocytes (%) (Auto) 6.2 % (20.0-45.0) L Monocytes (%) (Auto) 4.6 % (1.0-10.0) Eosinophils (%) (Auto) 2.8 % (0.0-3.0) Basophils (%) (Auto) 1.4 % (0.0-2.0) Sodium Level 146 MMOL/L (136-145) H Potassium Level 3.1 MMOL/L (3.5-5.1) L Chloride Level 115 MMOL/L (98-107) H Carbon Dioxide Level 20 MMOL/L (21-32) L Anion Gap 11 mmol/L (5-15) Blood Urea Nitrogen 15 mg/dL (7-18) Creatinine 1.0 MG/DL (0.55-1.30) Estimat Glomerular Filtration Rate > 60 mL/min (>60) Glucose Level 232 MG/DL (74-106) H Uric Acid 0.6 MG/DL (2.6-7.2) L Calcium Level 6.4 MG/DL (8.5-10.1) L Phosphorus Level 1.8 MG/DL (2.5-4.9) L Magnesium Level 1.3 MG/DL (1.8-2.4) L Total Bilirubin 0.2 MG/DL (0.2-1.0) Aspartate Amino Transf (AST/SGOT) 21 U/L (15-37) Alanine Aminotransferase (ALT/SGPT) 11 U/L (12-78) L Alkaline Phosphatase 85 U/L (46-116) C-Reactive Protein, Quantitative 8.9 mg/dL (0.00-0.90) H Pro-B-Type Natriuretic Peptide 3515 pg/mL (0-125) H Total Protein 5.1 G/DL (6.4-8.2) L Albumin 1.0 G/DL (3.4-5.0) L Globulin 4.1 g/dL Albumin/Globulin Ratio 0.2 (1.0-2.7) L Arterial Blood pH 7.463 (7.350-7.450) Arterial Blood Partial Pressure CO2 28.1 mmHg (35.0-45.0) L Arterial Blood Partial Pressure O2 88.7 mmHg (75.0-100.0) Arterial Blood HCO3 19.7 mmol/L (22.0-26.0) L Arterial Blood Oxygen Saturation 96.7 % (95-100) Arterial Blood Base Excess -3.2 (-2-2) L Harvey Test Positive Current Medications Medications (Trade) Dose Ordered Sig/Julito Route PRN Reason Start Time Stop Time Status Last Admin Dose Admin Acetaminophen (Tylenol) 650 mg Q4H PRN NG Mild Pain/Temp > 100.5 09/24/18 12:15 10/08/18 12:14 Acetaminophen (Tylenol) 650 mg Q4H PRN RECTAL Mild Pain (Pain Scale 1-3) 09/25/18 21:00 10/25/18 20:59 09/25/18 21:17 Chlorhexidine Gluconate (Camila-Hex 2%) 1 applic DAILY@2000 TOPIC 09/24/18 20:00 10/15/18 19:59 09/28/18 20:31 Dextrose (Dextrose 50%) 25 ml Q30M PRN IV Hypoglycemia 09/24/18 12:30 10/08/18 13:29 Dextrose (Dextrose 50%) 50 ml Q30M PRN IV Hypoglycemia 09/24/18 12:30 10/08/18 13:29 Fat Emulsion Intravenous 216 ml/Amino Acids/ Electrolytes/ Dextrose 1,608 ml @ 67 mls/hr Q24H IV 09/25/18 05:30 10/25/18 05:29 09/29/18 04:35 Heparin Sodium (Porcine) (Heparin 5000 units/ml) 5,000 units EVERY 12 HOURS SUBQ 09/24/18 21:00 10/07/18 20:59 09/29/18 08:13 Insulin Aspart (NovoLOG) Q6HR SUBQ 09/24/18 12:00 10/08/18 11:59 09/29/18 11:20 Loperamide HCl (Imodium) 4 mg TIDPRN PRN ORAL Diarrhea 09/24/18 12:15 10/10/18 12:14 Magnesium Sulfate 100 ml @ 100 mls/hr Q1H IVPB 09/29/18 10:30 09/29/18 14:29 09/29/18 10:33 Micafungin Sodium 100 mg/Sodium Chloride 110 ml @ 110 mls/hr Q24H IVPB 09/24/18 18:00 09/30/18 17:59 09/28/18 17:56 Ondansetron HCl (Zofran) 4 mg Q6H PRN IVP Nausea & Vomiting 09/24/18 12:15 10/07/18 12:14 Pantoprazole (Protonix) 40 mg Q12HR IVP 09/24/18 21:00 10/08/18 08:59 09/29/18 08:11 Phytonadione (Vitamin K) 10 mg QWEEK SUBQ 09/30/18 09:00 10/30/18 08:59 Piperacillin Sod/ Tazobactam Sod 3.375 gm/Sodium Chloride 110 ml @ 27.5 mls/hr EVERY 8 HOURS IVPB 09/24/18 14:00 10/07/18 13:59 09/29/18 05:04 Polyethylene Glycol (Miralax) 17 gm DAILYPRN PRN ORAL Constipation 09/24/18 12:15 10/07/18 12:14 Potassium Phosphate 30 mm/ Sodium Chloride 285 ml @ 47.5 mls/hr ONCE IV 09/29/18 11:00 09/29/18 23:59 Risperidone (RisperDAL) 0.25 mg QHS ORAL 09/24/18 21:00 10/10/18 20:59 09/27/18 20:04 Sodium Chloride 500 ml @ 999 mls/hr Q31M PRN IV SBP<90mmHg 09/24/18 12:15 10/08/18 10:59 Kell Larkin M.D. Sep 29, 2018 11:33
--- NOTE | 2018-09-29 11:44 | Pulmonolgy Critical Care Note ---
Critical Care - Asmt/Plan Problems: (1) Acute respiratory failure (2) Septic shock (3) ATN (acute tubular necrosis) (4) Metabolic acidosis (5) Gastric rupture Respiratory: adjust tidal volume, monitor respiratory rate, adjust FIO2 Cardiac: start pressors, continue to monitor HR/BP Renal: F/U I&O Infectious Disease: add antibiotics, other - micafungin was added Gastrointestinal: continue feedings/current rate Endocrine: check TSH Hematologic: transfuse if hgb<8.5 Neurologic: PRN Ativan, PRN Morphine, keep patient comfortable Prophylaxis: Heparin Notes Reviewed: cardio, renal Discussed with: nurses, consultants, caseworker protective servicesreceivable manager - Objective Last 24 Hour Vital Signs Date Time Temp Pulse Resp B/P (MAP) Pulse Ox O2 Delivery O2 Flow Rate FiO2 09/29/18 10:54 88 17 30 09/29/18 08:48 90 20 30 09/29/18 08:00 30 09/29/18 08:00 99.9 88 18 141/86 100 Mechanical Ventilator 30 09/29/18 08:00 Mechanical Ventilator Mechanical Ventilator 09/29/18 07:43 76 09/29/18 07:02 83 20 30 09/29/18 04:45 84 21 30 09/29/18 04:00 81 09/29/18 04:00 Mechanical Ventilator Mechanical Ventilator 09/29/18 04:00 30 09/29/18 04:00 99.0 80 22 139/85 100 Mechanical Ventilator 30 09/29/18 03:17 78 14 30 09/29/18 00:40 84 18 30 09/29/18 00:00 98.8 78 15 134/82 99 Mechanical Ventilator 09/29/18 00:00 30 09/29/18 00:00 Mechanical Ventilator Mechanical Ventilator 09/29/18 00:00 88 09/28/18 23:29 78 17 30 09/28/18 22:08 90 16 Mechanical Ventilator 30 09/28/18 21:12 89 16 30 09/28/18 20:00 99.2 89 16 131/83 99 Mechanical Ventilator 30 09/28/18 20:00 Mechanical Ventilator Mechanical Ventilator 09/28/18 20:00 30 09/28/18 20:00 75 09/28/18 19:00 90 16 30 09/28/18 17:04 94 09/28/18 17:00 86 19 30 09/28/18 16:00 98.4 90 16 124/76 99 Mechanical Ventilator 30 09/28/18 16:00 Mechanical Ventilator Mechanical Ventilator 09/28/18 16:00 30 09/28/18 14:31 76 15 30 09/28/18 12:33 83 16 30 09/28/18 12:00 98.2 79 18 131/80 97 Mechanical Ventilator 30 09/28/18 12:00 Mechanical Ventilator Mechanical Ventilator 09/28/18 12:00 30 09/28/18 11:53 74 Status: awake Condition: critical Neck: full ROM Lungs: chest wall tender Heart: HR/BP stable Abdomen: non-tender, active bowel sounds Extremities: no C/C/E, edema Decubiti: location Micro: Microbiology Date/Time Source Procedure Growth Status 09/27/18 04:00 Stool Clostridium difficile Toxin Assay - Final Complete 09/28/18 18:45 Urine,Clean Catch Urine Culture - Preliminary NO GROWTH Resulted Accucheck: 185 Critical Care - Subjective ROS Limited/Unobtainable: Yes Condition: critical EKG Rhythm: Sinus Rhythm FI02: 30 Vent Support Breath Rate: 12 Vent Support Mode: AC Vent Tidal Volume: 600 Sputum Amount: Moderate PEEP: 0.0 PIP: 17 Tube Feeding Amount: 0 I&O: Intake and Output 09/28/18 09/29/18 19:00 07:00 Intake Total 400 ml 326.916 ml Output Total 1540 ml 1365 ml Balance -1140 ml -1038.084 ml IV Total 400 ml 326.916 ml Output Urine Total 800 ml 500 ml Stool Total 190 ml 300 ml Drainage Total 550 ml 565 ml CXR: subcutaneous emphysema around neck Labs: Laboratory Tests Test 09/28/18 18:45 09/29/18 03:20 09/29/18 08:10 Urine Color Pale yellow Urine Appearance Clear Urine pH 6 (4.5-8.0) Urine Specific [place] 1.010 (1.005-1.035) Urine Protein 2+ (NEGATIVE) H Urine Glucose (UA) Negative (NEGATIVE) Urine Ketones Negative (NEGATIVE) Urine Blood 1+ (NEGATIVE) H Urine Nitrite Negative (NEGATIVE) Urine Bilirubin Negative (NEGATIVE) Urine Urobilinogen Normal MG/DL (0.0-1.0) Urine Leukocyte Esterase 1+ (NEGATIVE) H Urine RBC 0-2 /HPF (0 - 0) H Urine WBC 2-4 /HPF (0 - 0) Urine Squamous Epithelial Cells None /LPF (NONE/OCC) Urine Bacteria Moderate /HPF (NONE) H Urine Yeast Few /HPF (NONE) H White Blood Count 15.4 K/UL (4.8-10.8) H Red Blood Count 3.28 M/UL (4.70-6.10) L Hemoglobin 9.7 G/DL (14.2-18.0) L Hematocrit 29.3 % (42.0-52.0) L Mean Corpuscular Volume 89 FL (80-99) # Mean Corpuscular Hemoglobin 29.5 PG (27.0-31.0) Mean Corpuscular Hemoglobin Concent 33.1 G/DL (32.0-36.0) Red Cell Distribution Width 13.0 % (11.6-14.8) Platelet Count 605 K/UL (150-450) H Mean Platelet Volume 6.4 FL (6.5-10.1) L Neutrophils (%) (Auto) 84.9 % (45.0-75.0) H Lymphocytes (%) (Auto) 6.2 % (20.0-45.0) L Monocytes (%) (Auto) 4.6 % (1.0-10.0) Eosinophils (%) (Auto) 2.8 % (0.0-3.0) Basophils (%) (Auto) 1.4 % (0.0-2.0) Sodium Level 146 MMOL/L (136-145) H Potassium Level 3.1 MMOL/L (3.5-5.1) L Chloride Level 115 MMOL/L (98-107) H Carbon Dioxide Level 20 MMOL/L (21-32) L Anion Gap 11 mmol/L (5-15) Blood Urea Nitrogen 15 mg/dL (7-18) Creatinine 1.0 MG/DL (0.55-1.30) Estimat Glomerular Filtration Rate > 60 mL/min (>60) Glucose Level 232 MG/DL (74-106) H Uric Acid 0.6 MG/DL (2.6-7.2) L Calcium Level 6.4 MG/DL (8.5-10.1) L Phosphorus Level 1.8 MG/DL (2.5-4.9) L Magnesium Level 1.3 MG/DL (1.8-2.4) L Total Bilirubin 0.2 MG/DL (0.2-1.0) Aspartate Amino Transf (AST/SGOT) 21 U/L (15-37) Alanine Aminotransferase (ALT/SGPT) 11 U/L (12-78) L Alkaline Phosphatase 85 U/L (46-116) C-Reactive Protein, Quantitative 8.9 mg/dL (0.00-0.90) H Pro-B-Type Natriuretic Peptide 3515 pg/mL (0-125) H Total Protein 5.1 G/DL (6.4-8.2) L Albumin 1.0 G/DL (3.4-5.0) L Globulin 4.1 g/dL Albumin/Globulin Ratio 0.2 (1.0-2.7) L Arterial Blood pH 7.463 (7.350-7.450) Arterial Blood Partial Pressure CO2 28.1 mmHg (35.0-45.0) L Arterial Blood Partial Pressure O2 88.7 mmHg (75.0-100.0) Arterial Blood HCO3 19.7 mmol/L (22.0-26.0) L Arterial Blood Oxygen Saturation 96.7 % (95-100) Arterial Blood Base Excess -3.2 (-2-2) L Harvey Test Positive Po Li MD Sep 29, 2018 11:44
--- NOTE | 2018-09-29 12:45 | GI Progress Note ---
Assessment/Plan Problems: (1) G tube feedings ICD Codes: Z93.1 - Gastrostomy status SNOMED: 639762781, 611134565 (2) Protein-calorie malnutrition, severe ICD Codes: E43 - Unspecified severe protein-calorie malnutrition SNOMED: 683932308 (3) Anemia ICD Codes: D64.9 - Anemia, unspecified SNOMED: 365142752 (4) GI bleed ICD Codes: K92.2 - Gastrointestinal hemorrhage, unspecified SNOMED: 77940331 Status: unchanged Status Narrative Discussed with Dr. Horton. Assessment/Plan PREOPERATIVE DIAGNOSES: 1. Malpositioned feeding tube with leak and peritonitis/perforation. 2. Respiratory insufficiency requiring prolonged ventilatory support. POSTOPERATIVE DIAGNOSES: 1. Large omental perigastric hematoma. 2. Malpositioned PEG tube with gastric perforation. 3. Large perisplenic abscess. 4. Abdominal peritonitis. 5. Respiratory insufficiency requiring prolonged ventilatory support. OPERATION PERFORMED: 1. Exploratory laparotomy. 2. Repair of gastric perforation. 3. Evacuation of abdominal omental / lesser sac hematoma. 4. Evacuation of perisplenic hematoma/abscess. 5. Omentectomy. 6. Splenectomy. 7. Abdominal washout. 8. Tracheostomy. RECOMMENDATIONS: fu surgical recommendations prn transfusion ppi GT site care daily/prn fu labs The patient was seen and examined at bedside and all new and available data was reviewed in the patients chart. I agree with the above findings, impression and plan. (Patient seen earlier today. Signature stamp does not reflect patient encounter time.). - Arthur Horton MD Subjective Subjective limited Objective Last 24 Hour Vital Signs Date Time Temp Pulse Resp B/P (MAP) Pulse Ox O2 Delivery O2 Flow Rate FiO2 09/29/18 12:00 30 09/29/18 12:00 Mechanical Ventilator Mechanical Ventilator 09/29/18 10:54 88 17 30 09/29/18 08:48 90 20 30 09/29/18 08:00 30 09/29/18 08:00 99.9 88 18 141/86 100 Mechanical Ventilator 30 09/29/18 08:00 Mechanical Ventilator Mechanical Ventilator 09/29/18 07:43 76 09/29/18 07:02 83 20 30 09/29/18 04:45 84 21 30 09/29/18 04:00 81 09/29/18 04:00 Mechanical Ventilator Mechanical Ventilator 09/29/18 04:00 30 09/29/18 04:00 99.0 80 22 139/85 100 Mechanical Ventilator 30 09/29/18 03:17 78 14 30 09/29/18 00:40 84 18 30 09/29/18 00:00 98.8 78 15 134/82 99 Mechanical Ventilator 30 09/29/18 00:00 30 09/29/18 00:00 Mechanical Ventilator Mechanical Ventilator 09/29/18 00:00 88 09/28/18 23:29 78 17 30 09/28/18 22:08 90 16 Mechanical Ventilator 30 09/28/18 21:12 89 16 30 09/28/18 20:00 99.2 89 16 131/83 99 Mechanical Ventilator 30 09/28/18 20:00 Mechanical Ventilator Mechanical Ventilator 09/28/18 20:00 30 09/28/18 20:00 75 09/28/18 19:00 90 16 30 09/28/18 17:04 94 09/28/18 17:00 86 19 30 09/28/18 16:00 98.4 90 16 124/76 99 Mechanical Ventilator 30 09/28/18 16:00 Mechanical Ventilator Mechanical Ventilator 09/28/18 16:00 30 09/28/18 14:31 76 15 30 Intake and Output 09/28/18 09/29/18 19:00 07:00 Intake Total 400 ml 326.916 ml Output Total 1540 ml 1365 ml Balance -1140 ml -1038.084 ml IV Total 400 ml 326.916 ml Output Urine Total 800 ml 500 ml Stool Total 190 ml 300 ml Drainage Total 550 ml 565 ml Laboratory Tests Test 09/28/18 18:45 09/29/18 03:20 09/29/18 08:10 Urine Color Pale yellow Urine Appearance Clear Urine pH 6 (4.5-8.0) Urine Specific [place] 1.010 (1.005-1.035) Urine Protein 2+ (NEGATIVE) H Urine Glucose (UA) Negative (NEGATIVE) Urine Ketones Negative (NEGATIVE) Urine Blood 1+ (NEGATIVE) H Urine Nitrite Negative (NEGATIVE) Urine Bilirubin Negative (NEGATIVE) Urine Urobilinogen Normal MG/DL (0.0-1.0) Urine Leukocyte Esterase 1+ (NEGATIVE) H Urine RBC 0-2 /HPF (0 - 0) H Urine WBC 2-4 /HPF (0 - 0) Urine Squamous Epithelial Cells None /LPF (NONE/OCC) Urine Bacteria Moderate /HPF (NONE) H Urine Yeast Few /HPF (NONE) H White Blood Count 15.4 K/UL (4.8-10.8) H Red Blood Count 3.28 M/UL (4.70-6.10) L Hemoglobin 9.7 G/DL (14.2-18.0) L Hematocrit 29.3 % (42.0-52.0) L Mean Corpuscular Volume 89 FL (80-99) # Mean Corpuscular Hemoglobin 29.5 PG (27.0-31.0) Mean Corpuscular Hemoglobin Concent 33.1 G/DL (32.0-36.0) Red Cell Distribution Width 13.0 % (11.6-14.8) Platelet Count 605 K/UL (150-450) H Mean Platelet Volume 6.4 FL (6.5-10.1) L Neutrophils (%) (Auto) 84.9 % (45.0-75.0) H Lymphocytes (%) (Auto) 6.2 % (20.0-45.0) L Monocytes (%) (Auto) 4.6 % (1.0-10.0) Eosinophils (%) (Auto) 2.8 % (0.0-3.0) Basophils (%) (Auto) 1.4 % (0.0-2.0) Sodium Level 146 MMOL/L (136-145) H Potassium Level 3.1 MMOL/L (3.5-5.1) L Chloride Level 115 MMOL/L (98-107) H Carbon Dioxide Level 20 MMOL/L (21-32) L Anion Gap 11 mmol/L (5-15) Blood Urea Nitrogen 15 mg/dL (7-18) Creatinine 1.0 MG/DL (0.55-1.30) Estimat Glomerular Filtration Rate > 60 mL/min (>60) Glucose Level 232 MG/DL (74-106) H Uric Acid 0.6 MG/DL (2.6-7.2) L Calcium Level 6.4 MG/DL (8.5-10.1) L Phosphorus Level 1.8 MG/DL (2.5-4.9) L Magnesium Level 1.3 MG/DL (1.8-2.4) L Total Bilirubin 0.2 MG/DL (0.2-1.0) Aspartate Amino Transf (AST/SGOT) 21 U/L (15-37) Alanine Aminotransferase (ALT/SGPT) 11 U/L (12-78) L Alkaline Phosphatase 85 U/L (46-116) C-Reactive Protein, Quantitative 8.9 mg/dL (0.00-0.90) H Pro-B-Type Natriuretic Peptide 3515 pg/mL (0-125) H Total Protein 5.1 G/DL (6.4-8.2) L Albumin 1.0 G/DL (3.4-5.0) L Globulin 4.1 g/dL Albumin/Globulin Ratio 0.2 (1.0-2.7) L Arterial Blood pH 7.463 (7.350-7.450) Arterial Blood Partial Pressure CO2 28.1 mmHg (35.0-45.0) L Arterial Blood Partial Pressure O2 88.7 mmHg (75.0-100.0) Arterial Blood HCO3 19.7 mmol/L (22.0-26.0) L Arterial Blood Oxygen Saturation 96.7 % (95-100) Arterial Blood Base Excess -3.2 (-2-2) L Harvey Test Positive Microbiology Date/Time Source Procedure Growth Status 09/28/18 18:45 Urine,Clean Catch Urine Culture - Preliminary NO GROWTH Resulted Height (Feet): 5 Height (Inches): 5.00 Weight (Pounds): 121 General Appearance: alert Cardiovascular: normal rate Respiratory/Chest: no respiratory distress Abdominal Exam: soft Becki Holt FLOATER OPERATOR Sep 29, 2018 12:44
--- NOTE | 2018-09-29 14:43 | General Progress Note ---
Assessment/Plan Problem List: (1) UTI (urinary tract infection) ICD Codes: N39.0 - Urinary tract infection, site not specified SNOMED: 98557888 (2) Renal failure ICD Codes: N19 - Unspecified kidney failure SNOMED: 27094389 (3) Anemia ICD Codes: D64.9 - Anemia, unspecified SNOMED: 650952434 (4) Acute respiratory failure ICD Codes: J96.00 - Acute respiratory failure, unspecified whether with hypoxia or hypercapnia SNOMED: 69258102 (5) Pneumonia ICD Codes: J18.9 - Pneumonia, unspecified organism SNOMED: 402967707 (6) Septic shock ICD Codes: A41.9 - Sepsis, unspecified organism; R65.21 - Severe sepsis with septic shock SNOMED: 57793310 (7) ATN (acute tubular necrosis) ICD Codes: N17.0 - Acute kidney failure with tubular necrosis SNOMED: 13244446 Status: unchanged Assessment/Plan vent abx wound care neph f/u gi eval cbc bmp am ltach transfer Subjective Constitutional: Reports: weakness Allergies: Coded Allergies: No Known Allergies (Unverified , 08/14/18) All Systems: reviewed and negative except above Subjective trach vent altered Objective Last 24 Hour Vital Signs Date Time Temp Pulse Resp B/P (MAP) Pulse Ox O2 Delivery O2 Flow Rate FiO2 09/29/18 12:56 86 15 30 09/29/18 12:05 78 09/29/18 12:00 99.5 77 14 138/88 99 Mechanical Ventilator 30 09/29/18 12:00 30 09/29/18 12:00 Mechanical Ventilator Mechanical Ventilator 09/29/18 10:54 88 17 30 09/29/18 08:48 90 20 30 09/29/18 08:00 30 09/29/18 08:00 99.9 88 18 141/86 100 Mechanical Ventilator 30 09/29/18 08:00 Mechanical Ventilator Mechanical Ventilator 09/29/18 07:43 76 09/29/18 07:02 83 20 30 09/29/18 04:45 84 21 30 09/29/18 04:00 81 09/29/18 04:00 Mechanical Ventilator Mechanical Ventilator 09/29/18 04:00 30 09/29/18 04:00 99.0 80 22 139/85 100 Mechanical Ventilator 30 09/29/18 03:17 78 14 30 09/29/18 00:40 84 18 30 09/29/18 00:00 98.8 78 15 134/82 99 Mechanical Ventilator 30 09/29/18 00:00 30 09/29/18 00:00 Mechanical Ventilator Mechanical Ventilator 09/29/18 00:00 88 09/28/18 23:29 78 17 30 09/28/18 22:08 90 16 Mechanical Ventilator 30 09/28/18 21:12 89 16 30 09/28/18 20:00 99.2 89 16 131/83 99 Mechanical Ventilator 30 09/28/18 20:00 Mechanical Ventilator Mechanical Ventilator 09/28/18 20:00 30 09/28/18 20:00 75 09/28/18 19:00 90 16 30 09/28/18 17:04 94 09/28/18 17:00 86 19 30 09/28/18 16:00 98.4 90 16 124/76 99 Mechanical Ventilator 30 09/28/18 16:00 Mechanical Ventilator Mechanical Ventilator 09/28/18 16:00 30 Intake and Output 09/28/18 09/29/18 19:00 07:00 Intake Total 400 ml 326.916 ml Output Total 1540 ml 1365 ml Balance -1140 ml -1038.084 ml IV Total 400 ml 326.916 ml Output Urine Total 800 ml 500 ml Stool Total 190 ml 300 ml Drainage Total 550 ml 565 ml Laboratory Tests 09/28/18 18:45: Urine Color Pale yellow, Urine Appearance Clear, Urine pH 6, Urine Specific [place] 1.010, Urine Protein 2+H, Urine Glucose (UA) Negative, Urine Ketones Negative, Urine Blood 1+H, Urine Nitrite Negative, Urine Bilirubin Negative, Urine Urobilinogen Normal, Urine Leukocyte Esterase 1+H, Urine RBC 0-2H, Urine WBC 2-4, Urine Squamous Epithelial Cells None, Urine Bacteria ModerateH, Urine Yeast FewH 09/29/18 03:20: White Blood Count 15.4H, Red Blood Count 3.28L, Hemoglobin 9.7L, Hematocrit 29.3L, Mean Corpuscular Volume 89#, Mean Corpuscular Hemoglobin 29.5, Mean Corpuscular Hemoglobin Concent 33.1, Red Cell Distribution Width 13.0, Platelet Count 605H, Mean Platelet Volume 6.4L, Neutrophils (%) (Auto) 84.9H, Lymphocytes (%) (Auto) 6.2L, Monocytes (%) (Auto) 4.6, Eosinophils (%) (Auto) 2.8, Basophils (%) (Auto) 1.4, Sodium Level 146H, Potassium Level 3.1L, Chloride Level 115H, Carbon Dioxide Level 20L, Anion Gap 11, Blood Urea Nitrogen 15, Creatinine 1.0, Estimat Glomerular Filtration Rate > 60, Glucose Level 232H, Uric Acid 0.6L, Calcium Level 6.4L, Phosphorus Level 1.8L, Magnesium Level 1.3L, Total Bilirubin 0.2, Aspartate Amino Transf (AST/SGOT) 21 , Alanine Aminotransferase (ALT/SGPT) 11L, Alkaline Phosphatase 85, C-Reactive Protein, Quantitative 8.9H, Pro-B-Type Natriuretic Peptide 3515H, Total Protein 5.1L, Albumin 1.0L, Globulin 4.1, Albumin/Globulin Ratio 0.2L 09/29/18 08:10: Arterial Blood pH 7.463H, Arterial Blood Partial Pressure CO2 28.1L, Arterial Blood Partial Pressure O2 88.7, Arterial Blood HCO3 19.7L, Arterial Blood Oxygen Saturation 96.7, Arterial Blood Base Excess -3.2L, Harvey Test Positive Height (Feet): 5 Height (Inches): 5.00 Weight (Pounds): 121 General Appearance: lethargic EENT: normal ENT inspection Neck: normal alignment Cardiovascular: normal peripheral pulses, normal rate, regular rhythm Respiratory/Chest: chest wall non-tender, lungs clear, normal breath sounds Abdomen: non tender, soft, hypoactive bowel sounds Extremities: normal inspection Edema: no edema noted Arm (L), no edema noted Arm (R), no edema noted Leg (L), no edema noted Leg (R), no edema noted Pedal (L), no edema noted Pedal (R), no edema noted Generalized Neurologic: motor weakness Skin: normal pigmentation, warm/dry Jasmeet Reynoso DO Sep 29, 2018 14:43
--- NOTE | 2018-09-29 15:30 | Progress Note ---
DATE: 09/29/2018 SUBJECTIVE: This is a 62-year-old male patient came in with septic shock, anemia, and GI bleeding. This patient came in confused and disorganized. He has no logical plan for his own self-care. . He has had significant altered mental status due to his medical condition. That is why, attending has requested daily psychiatric consultation for this patient. MENTAL STATUS EXAMINATION: This is a 62-year-old male. Appearance is disheveled. Attitude, irritable and agitated. Affect, guarded and restricted. Intellect poor. Mood, depressed and anxious. Motor activity, psychomotor agitation. Attention span is poor. Orientation x2. Speech is mostly nonverbal. Thought process, disorganized and illogical. Thought content, denies auditory or visual hallucinations or delusions. Insight and judgment is poor. DIAGNOSIS: Paranoid schizophrenia with acute exacerbation, rule out depression with psychotic features. PLAN: Treat him with Risperdal 0.25 mg at bedtime. Provided him with 20 minutes of reality-based supportive psychotherapy. Chart reviewed and discussed with staff. A 20 minutes of really-based supportive psychotherapy . Seen and assessed in his room. Virgie Mcdermott M.D. : JAYSON JOB#: [id number] CC:
--- NOTE | 2018-09-29 16:11 | Cardiac Electrophysiology PN ---
Assessment/Plan Assessment/Plan 1. S/P Septic and hemorrhagic shock with Lactic acidosis. On Abx and S/P PRBC 2. Sinus tachycardia in 140s due to sepsis, anemia and dehydration. No fibrillation. EF 75%. HR in 90s now 3. Troponin elevation due to renal failure. EF 75%. 4. Respiratory failure on the vent. S/P Tracheostomy 09/22/18 5. Rhabdomyolysis with CPK in thousands. May be contributing to renal failure. 6. Acute renal failure and severe hyperkalemia. FU by Dr. Smalls 7. Dysphagia, Hx of PEG placement but was dislodged. 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 Smalls Still has both drains 8. GI bleed. S/P EGD by Dr. Horton. S/p PRBCs DW RN Subjective Subjective On the Vent via tracheostomy. Still draining from abdominal drains On TPN and Lipid. RN at bedside Objective Last 24 Hour Vital Signs Date Time Temp Pulse Resp B/P (MAP) Pulse Ox O2 Delivery O2 Flow Rate FiO2 09/29/18 16:00 Mechanical Ventilator Mechanical Ventilator 09/29/18 15:05 75 14 30 09/29/18 12:56 86 15 30 09/29/18 12:05 78 09/29/18 12:00 99.5 77 14 138/88 99 Mechanical Ventilator 30 09/29/18 12:00 30 09/29/18 12:00 Mechanical Ventilator Mechanical Ventilator 09/29/18 10:54 88 17 30 09/29/18 08:48 90 20 30 09/29/18 08:00 30 09/29/18 08:00 99.9 88 18 141/86 100 Mechanical Ventilator 30 09/29/18 08:00 Mechanical Ventilator Mechanical Ventilator 09/29/18 07:43 76 09/29/18 07:02 83 20 30 09/29/18 04:45 84 21 30 09/29/18 04:00 81 09/29/18 04:00 Mechanical Ventilator Mechanical Ventilator 09/29/18 04:00 30 09/29/18 04:00 99.0 80 22 139/85 100 Mechanical Ventilator 30 09/29/18 03:17 78 14 30 09/29/18 00:40 84 18 30 09/29/18 00:00 98.8 78 15 134/82 99 Mechanical Ventilator 30 09/29/18 00:00 30 09/29/18 00:00 Mechanical Ventilator Mechanical Ventilator 09/29/18 00:00 88 09/28/18 23:29 78 17 30 09/28/18 22:08 90 16 Mechanical Ventilator 30 09/28/18 21:12 89 16 30 09/28/18 20:00 99.2 89 16 131/83 99 Mechanical Ventilator 30 09/28/18 20:00 Mechanical Ventilator Mechanical Ventilator 09/28/18 20:00 30 09/28/18 20:00 75 09/28/18 19:00 90 16 30 09/28/18 17:04 94 09/28/18 17:00 86 19 30 Intake and Output 09/28/18 09/29/18 19:00 07:00 Intake Total 400 ml 326.916 ml Output Total 1540 ml 1365 ml Balance -1140 ml -1038.084 ml IV Total 400 ml 326.916 ml Output Urine Total 800 ml 500 ml Stool Total 190 ml 300 ml Drainage Total 550 ml 565 ml Laboratory Tests Test 09/28/18 18:45 09/29/18 03:20 09/29/18 08:10 Urine Color Pale yellow Urine Appearance Clear Urine pH 6 (4.5-8.0) Urine Specific [place] 1.010 (1.005-1.035) Urine Protein 2+ (NEGATIVE) H Urine Glucose (UA) Negative (NEGATIVE) Urine Ketones Negative (NEGATIVE) Urine Blood 1+ (NEGATIVE) H Urine Nitrite Negative (NEGATIVE) Urine Bilirubin Negative (NEGATIVE) Urine Urobilinogen Normal MG/DL (0.0-1.0) Urine Leukocyte Esterase 1+ (NEGATIVE) H Urine RBC 0-2 /HPF (0 - 0) H Urine WBC 2-4 /HPF (0 - 0) Urine Squamous Epithelial Cells None /LPF (NONE/OCC) Urine Bacteria Moderate /HPF (NONE) H Urine Yeast Few /HPF (NONE) H White Blood Count 15.4 K/UL (4.8-10.8) H Red Blood Count 3.28 M/UL (4.70-6.10) L Hemoglobin 9.7 G/DL (14.2-18.0) L Hematocrit 29.3 % (42.0-52.0) L Mean Corpuscular Volume 89 FL (80-99) # Mean Corpuscular Hemoglobin 29.5 PG (27.0-31.0) Mean Corpuscular Hemoglobin Concent 33.1 G/DL (32.0-36.0) Red Cell Distribution Width 13.0 % (11.6-14.8) Platelet Count 605 K/UL (150-450) H Mean Platelet Volume 6.4 FL (6.5-10.1) L Neutrophils (%) (Auto) 84.9 % (45.0-75.0) H Lymphocytes (%) (Auto) 6.2 % (20.0-45.0) L Monocytes (%) (Auto) 4.6 % (1.0-10.0) Eosinophils (%) (Auto) 2.8 % (0.0-3.0) Basophils (%) (Auto) 1.4 % (0.0-2.0) Sodium Level 146 MMOL/L (136-145) H Potassium Level 3.1 MMOL/L (3.5-5.1) L Chloride Level 115 MMOL/L (98-107) H Carbon Dioxide Level 20 MMOL/L (21-32) L Anion Gap 11 mmol/L (5-15) Blood Urea Nitrogen 15 mg/dL (7-18) Creatinine 1.0 MG/DL (0.55-1.30) Estimat Glomerular Filtration Rate > 60 mL/min (>60) Glucose Level 232 MG/DL (74-106) H Uric Acid 0.6 MG/DL (2.6-7.2) L Calcium Level 6.4 MG/DL (8.5-10.1) L Phosphorus Level 1.8 MG/DL (2.5-4.9) L Magnesium Level 1.3 MG/DL (1.8-2.4) L Total Bilirubin 0.2 MG/DL (0.2-1.0) Aspartate Amino Transf (AST/SGOT) 21 U/L (15-37) Alanine Aminotransferase (ALT/SGPT) 11 U/L (12-78) L Alkaline Phosphatase 85 U/L (46-116) C-Reactive Protein, Quantitative 8.9 mg/dL (0.00-0.90) H Pro-B-Type Natriuretic Peptide 3515 pg/mL (0-125) H Total Protein 5.1 G/DL (6.4-8.2) L Albumin 1.0 G/DL (3.4-5.0) L Globulin 4.1 g/dL Albumin/Globulin Ratio 0.2 (1.0-2.7) L Arterial Blood pH 7.463 (7.350-7.450) Arterial Blood Partial Pressure CO2 28.1 mmHg (35.0-45.0) L Arterial Blood Partial Pressure O2 88.7 mmHg (75.0-100.0) Arterial Blood HCO3 19.7 mmol/L (22.0-26.0) L Arterial Blood Oxygen Saturation 96.7 % (95-100) Arterial Blood Base Excess -3.2 (-2-2) L Harvey Test Positive Microbiology Date/Time Source Procedure Growth Status 09/27/18 04:00 Stool Clostridium difficile Toxin Assay - Final Complete 09/28/18 18:45 Urine,Clean Catch Urine Culture - Preliminary NO GROWTH Resulted Objective HEENT: S/P tracheostomy. No JVD LUNGS: Coarse rhonchi. CARDIOVASCULAR: Tachycardic S1 and S2. ABDOMEN: Post op covered with dressing and drain EXTREMITIES: No pitting edema. Jasbir Madsen MD Sep 29, 2018 16:10
--- NOTE | 2018-09-29 19:17 | Nephrology Progress Note ---
Assessment/Plan Problem List: (1) ATN (acute tubular necrosis) Assessment: Cr rising post op but lowering (2) Septic shock (3) Lactic acid acidosis (4) Metabolic acidosis (5) Hyperkalemia (6) G tube feedings (7) Acute respiratory failure Assessment post op 09/22/18: Trach, Splenectomy, Perf.... over all improved: cr rising again presented with Shock , likely septic Acute renal failure resolved Acute metabolic acidosis resolved Hyperkalemia PEG Recent Pneumonia Plan plan: K and Phos supplements on tpn now trached 09/22 post laparatomy 09/22 off pressors pulmonary support Fluid challenge as needed Sivla K and Phos and Mag supplement as needed antibiotics monitor renal parameters and ABG poor prognosis Subjective ROS Limited/Unobtainable: Yes Objective Objective Last 24 Hour Vital Signs Date Time Temp Pulse Resp B/P (MAP) Pulse Ox O2 Delivery O2 Flow Rate FiO2 09/29/18 17:38 77 16 30 09/29/18 16:03 71 09/29/18 16:00 30 09/29/18 16:00 98.2 77 16 142/87 98 Mechanical Ventilator 30 09/29/18 16:00 Mechanical Ventilator Mechanical Ventilator 09/29/18 15:05 75 14 30 09/29/18 12:56 86 15 30 09/29/18 12:05 78 09/29/18 12:00 99.5 77 14 138/88 99 Mechanical Ventilator 30 09/29/18 12:00 30 09/29/18 12:00 Mechanical Ventilator Mechanical Ventilator 09/29/18 10:54 88 17 30 09/29/18 08:48 90 20 30 09/29/18 08:00 30 09/29/18 08:00 99.9 88 18 141/86 100 Mechanical Ventilator 30 09/29/18 08:00 Mechanical Ventilator Mechanical Ventilator 09/29/18 07:43 76 09/29/18 07:02 83 20 30 09/29/18 04:45 84 21 30 09/29/18 04:00 81 09/29/18 04:00 Mechanical Ventilator Mechanical Ventilator 09/29/18 04:00 30 09/29/18 04:00 99.0 80 22 139/85 100 Mechanical Ventilator 30 09/29/18 03:17 78 14 30 09/29/18 00:40 84 18 30 09/29/18 00:00 98.8 78 15 134/82 99 Mechanical Ventilator 30 09/29/18 00:00 30 09/29/18 00:00 Mechanical Ventilator Mechanical Ventilator 09/29/18 00:00 88 09/28/18 23:29 78 17 30 09/28/18 22:08 90 16 Mechanical Ventilator 30 09/28/18 21:12 89 16 30 09/28/18 20:00 99.2 89 16 131/83 99 Mechanical Ventilator 30 09/28/18 20:00 Mechanical Ventilator Mechanical Ventilator 09/28/18 20:00 30 09/28/18 20:00 75 Intake and Output 09/28/18 09/29/18 19:00 07:00 Intake Total 400 ml 326.916 ml Output Total 1540 ml 1365 ml Balance -1140 ml -1038.084 ml IV Total 400 ml 326.916 ml Output Urine Total 800 ml 500 ml Stool Total 190 ml 300 ml Drainage Total 550 ml 565 ml Laboratory Tests 09/29/18 03:20: White Blood Count 15.4H, Red Blood Count 3.28L, Hemoglobin 9.7L, Hematocrit 29.3L, Mean Corpuscular Volume 89#, Mean Corpuscular Hemoglobin 29.5, Mean Corpuscular Hemoglobin Concent 33.1, Red Cell Distribution Width 13.0, Platelet Count 605H, Mean Platelet Volume 6.4L, Neutrophils (%) (Auto) 84.9H, Lymphocytes (%) (Auto) 6.2L, Monocytes (%) (Auto) 4.6, Eosinophils (%) (Auto) 2.8, Basophils (%) (Auto) 1.4, Sodium Level 146H, Potassium Level 3.1L, Chloride Level 115H, Carbon Dioxide Level 20L, Anion Gap 11, Blood Urea Nitrogen 15, Creatinine 1.0, Estimat Glomerular Filtration Rate > 60, Glucose Level 232H, Uric Acid 0.6L, Calcium Level 6.4L, Phosphorus Level 1.8L, Magnesium Level 1.3L, Total Bilirubin 0.2, Aspartate Amino Transf (AST/SGOT) 21 , Alanine Aminotransferase (ALT/SGPT) 11L, Alkaline Phosphatase 85, C-Reactive Protein, Quantitative 8.9H, Pro-B-Type Natriuretic Peptide 3515H, Total Protein 5.1L, Albumin 1.0L, Globulin 4.1, Albumin/Globulin Ratio 0.2L 09/29/18 08:10: Arterial Blood pH 7.463H, Arterial Blood Partial Pressure CO2 28.1L, Arterial Blood Partial Pressure O2 88.7, Arterial Blood HCO3 19.7L, Arterial Blood Oxygen Saturation 96.7, Arterial Blood Base Excess -3.2L, Harvey Test Positive Height (Feet): 5 Height (Inches): 5.00 Weight (Pounds): 121 EENT: other - trach Cardiovascular: normal rate Respiratory/Chest: decreased breath sounds Abdomen: soft Objective no other changes Josesito Smalls MD Sep 29, 2018 19:17
[2018-09-29] MEDS: Micafungin 100 MG in NS 110 ML IVPB SCH (20:41)
[2018-09-29] MEDS: Dyna-Hex 2% Top Sol 2oz TOPIC SCH (20:42)
[2018-09-30] MEDS: NovoLOG Insulin Flexpen SUBQ SCH ×4 (00:10→18:17)
[2018-09-30 03:53] VITALS: BP 138/86
[2018-09-30] MEDS: Piperacillin/Tazobactam 3.375 GM in NS 110 ML IVPB SCH ×3 (05:15→22:50)
[2018-09-30] MEDS: FAT EMULSION 20% IV SCH (05:17)
[2018-09-30] MEDS: TPN IV SCH (05:17)
[2018-09-30 06:20] LABS: BASOPHILS % (AUTO) 1.6 % (0.0-2.0); EOSINOPHILS % (AUTO) 4.9 % (0.0-3.0); HEMATOCRIT 28.2 % (42.0-52.0); HEMOGLOBIN 9.4 G/DL (14.2-18.0); LYMPHOCYTES % (AUTO) 9.5 % (20.0-45.0); MEAN CORPUSCULAR VOLUME 88 FL (80-99); MONOCYTES % (AUTO) 5.5 % (1.0-10.0); NEUTROPHILS % (AUTO) 78.5 % (45.0-75.0); PLATELET COUNT 677 K/UL (150-450); RED BLOOD COUNT 3.22 M/UL (4.70-6.10); RED CELL DISTRIBUTION WIDTH 12.8 % (11.6-14.8); WHITE BLOOD COUNT 13.4 K/UL (4.8-10.8)
[2018-09-30 07:00] LABS: ALANINE AMINOTRANSFERASE 14 U/L (12-78); ALBUMIN/GLOBULIN RATIO 0.2 (1.0-2.7); ALKALINE PHOSPHATASE 83 U/L (46-116); ANION GAP 11 mmol/L (5-15); ASPARTATE AMINO TRANSFERASE 19 U/L (15-37); BILIRUBIN,TOTAL 0.2 MG/DL (0.2-1.0); BLOOD UREA NITROGEN 12 mg/dL (7-18); CALCIUM 6.6 MG/DL (8.5-10.1); CARBON DIOXIDE 21 MMOL/L (21-32); CHLORIDE 115 MMOL/L (98-107); PHOSPHORUS 2.3 MG/DL (2.5-4.9); POTASSIUM 3.5 MMOL/L (3.5-5.1); SODIUM 147 MMOL/L (136-145)
[2018-09-30 08:00] VITALS: BP 139/84
[2018-09-30] MEDS: Phytonadione 10 mg/mL 1ml amp SUBQ SCH (08:09)
[2018-09-30] MEDS: Pantoprazole Inj IVP SCH ×2 (08:10→20:23)
[2018-09-30] MEDS: Heparin 5000 units/ml inj SUBQ SCH ×2 (08:11→20:26)
[2018-09-30] MEDS ORDERED: Phytonadione 10 mg/mL 1ml amp SUBQ SCH (09:00)
[2018-09-30] MEDS ORDERED: Potassium Phosphate 30 MM in NS 275 ML IV SCH (10:00)
--- NOTE | 2018-09-30 11:41 | Pulmonolgy Critical Care Note ---
Critical Care - Asmt/Plan Problems: (1) Acute respiratory failure (2) Septic shock (3) ATN (acute tubular necrosis) (4) Metabolic acidosis (5) Gastric rupture Respiratory: monitor respiratory rate, adjust FIO2, CXR Cardiac: continue pressors, continue to monitor HR/BP Renal: F/U I&O Infectious Disease: check cultures Gastrointestinal: continue feedings/current rate Hematologic: transfuse if hgb<8.5 Neurologic: PRN Ativan, PRN Morphine, keep patient comfortable Prophylaxis: Protonix Notes Reviewed: corporate communications specialist Discussed with: nurses, consultants, case management associate, family member Critical Care - Objective Last 24 Hour Vital Signs Date Time Temp Pulse Resp B/P (MAP) Pulse Ox O2 Delivery O2 Flow Rate FiO2 09/30/18 11:03 86 27 30 09/30/18 08:54 86 27 30 09/30/18 08:00 97.6 77 26 139/84 100 Mechanical Ventilator 30 09/30/18 08:00 Mechanical Ventilator Mechanical Ventilator 09/30/18 08:00 88 09/30/18 08:00 30 09/30/18 07:10 87 26 30 09/30/18 04:40 87 26 30 09/30/18 04:00 77 09/30/18 04:00 30 09/30/18 04:00 Mechanical Ventilator Mechanical Ventilator 09/30/18 03:53 99.0 83 21 138/86 100 Mechanical Ventilator 30 09/30/18 03:30 84 20 30 09/30/18 01:30 89 21 30 09/30/18 00:00 79 09/30/18 00:00 Mechanical Ventilator Mechanical Ventilator 09/29/18 23:30 83 14 30 09/29/18 23:04 98.8 86 16 140/86 100 Mechanical Ventilator 30 09/29/18 21:30 85 16 30 09/29/18 20:00 30 09/29/18 20:00 Mechanical Ventilator Mechanical Ventilator 09/29/18 20:00 90 09/29/18 19:30 86 16 30 09/29/18 19:21 97.7 90 15 126/87 99 Mechanical Ventilator 30 09/29/18 17:38 77 16 30 09/29/18 16:03 71 09/29/18 16:00 30 09/29/18 16:00 98.2 77 16 142/87 98 Mechanical Ventilator 30 09/29/18 16:00 Mechanical Ventilator Mechanical Ventilator 09/29/18 15:05 75 14 30 09/29/18 12:56 86 15 30 09/29/18 12:05 78 09/29/18 12:00 99.5 77 14 138/88 99 Mechanical Ventilator 30 09/29/18 12:00 30 09/29/18 12:00 Mechanical Ventilator Mechanical Ventilator Status: awake Condition: critical HEENT: atraumatic Neck: full ROM Lungs: chest wall tender Heart: HR/BP stable Abdomen: soft, non-tender Extremities: no C/C/E, edema Decubiti: stage Micro: Microbiology Date/Time Source Procedure Growth Status 09/28/18 19:45 Blood Blood Culture - Preliminary NO GROWTH AFTER 24 HOURS Resulted 09/28/18 19:30 Blood Blood Culture - Preliminary NO GROWTH AFTER 24 HOURS Resulted 09/28/18 18:45 Urine,Clean Catch Urine Culture - Preliminary YEAST Resulted Accucheck: 135 Critical Care - Subjective ROS Limited/Unobtainable: No Condition: critical EKG Rhythm: Sinus Rhythm FI02: 30 Vent Support Breath Rate: 12 Vent Support Mode: AC Vent Tidal Volume: 600 Sputum Amount: Small PEEP: 0.0 PIP: 28 Tube Feeding Amount: 0 I&O: Intake and Output 09/29/18 09/30/18 19:00 07:00 Intake Total 1229.0 ml 898.516 ml Output Total 1855 ml 1425 ml Balance -626.0 ml -526.484 ml IV Total 1229.0 ml 898.516 ml Output Urine Total 1000 ml 700 ml Stool Total 390 ml 400 ml Drainage Total 465 ml 325 ml CXR: no change Labs: Laboratory Tests Test 09/30/18 02:50 White Blood Count 13.4 K/UL (4.8-10.8) H Red Blood Count 3.22 M/UL (4.70-6.10) L Hemoglobin 9.4 G/DL (14.2-18.0) L Hematocrit 28.2 % (42.0-52.0) L Mean Corpuscular Volume 88 FL (80-99) Mean Corpuscular Hemoglobin 29.1 PG (27.0-31.0) Mean Corpuscular Hemoglobin Concent 33.2 G/DL (32.0-36.0) Red Cell Distribution Width 12.8 % (11.6-14.8) Platelet Count 677 K/UL (150-450) H Mean Platelet Volume 7.3 FL (6.5-10.1) Neutrophils (%) (Auto) 78.5 % (45.0-75.0) H Lymphocytes (%) (Auto) 9.5 % (20.0-45.0) L Monocytes (%) (Auto) 5.5 % (1.0-10.0) Eosinophils (%) (Auto) 4.9 % (0.0-3.0) H Basophils (%) (Auto) 1.6 % (0.0-2.0) Erythrocyte Sedimentation Rate 80 MM/HR (0-20) H Sodium Level 147 MMOL/L (136-145) H Potassium Level 3.5 MMOL/L (3.5-5.1) Chloride Level 115 MMOL/L (98-107) H Carbon Dioxide Level 21 MMOL/L (21-32) Anion Gap 11 mmol/L (5-15) Blood Urea Nitrogen 12 mg/dL (7-18) Creatinine 1.0 MG/DL (0.55-1.30) Estimat Glomerular Filtration Rate > 60 mL/min (>60) Glucose Level 161 MG/DL (74-106) H Calcium Level 6.6 MG/DL (8.5-10.1) L Phosphorus Level 2.3 MG/DL (2.5-4.9) L Magnesium Level 1.7 MG/DL (1.8-2.4) L Total Bilirubin 0.2 MG/DL (0.2-1.0) Aspartate Amino Transf (AST/SGOT) 19 U/L (15-37) Alanine Aminotransferase (ALT/SGPT) 14 U/L (12-78) Alkaline Phosphatase 83 U/L (46-116) C-Reactive Protein, Quantitative 7.5 mg/dL (0.00-0.90) H Pro-B-Type Natriuretic Peptide 3555 pg/mL (0-125) H Total Protein 5.2 G/DL (6.4-8.2) L Albumin 1.0 G/DL (3.4-5.0) L Globulin 4.2 g/dL Albumin/Globulin Ratio 0.2 (1.0-2.7) L Po Li MD Sep 30, 2018 11:41
[2018-09-30 12:00] VITALS: BP 147/87
--- NOTE | 2018-09-30 12:40 | GI Progress Note ---
Assessment/Plan Problems: (1) G tube feedings ICD Codes: Z93.1 - Gastrostomy status SNOMED: 131727182, 768725723 (2) Protein-calorie malnutrition, severe ICD Codes: E43 - Unspecified severe protein-calorie malnutrition SNOMED: 179096693 (3) Anemia ICD Codes: D64.9 - Anemia, unspecified SNOMED: 259736060 (4) GI bleed ICD Codes: K92.2 - Gastrointestinal hemorrhage, unspecified SNOMED: 35591243 Status: unchanged Status Narrative Discussed with Dr. Horton. Assessment/Plan PREOPERATIVE DIAGNOSES: 1. Malpositioned feeding tube with leak and peritonitis/perforation. 2. Respiratory insufficiency requiring prolonged ventilatory support. POSTOPERATIVE DIAGNOSES: 1. Large omental perigastric hematoma. 2. Malpositioned PEG tube with gastric perforation. 3. Large perisplenic abscess. 4. Abdominal peritonitis. 5. Respiratory insufficiency requiring prolonged ventilatory support. OPERATION PERFORMED: 1. Exploratory laparotomy. 2. Repair of gastric perforation. 3. Evacuation of abdominal omental / lesser sac hematoma. 4. Evacuation of perisplenic hematoma/abscess. 5. Omentectomy. 6. Splenectomy. 7. Abdominal washout. 8. Tracheostomy. RECOMMENDATIONS: fu surgical recommendations TPN prn transfusion ppi abx fu labs The patient was seen and examined at bedside and all new and available data was reviewed in the patients chart. I agree with the above findings, impression and plan. (Patient seen earlier today. Signature stamp does not reflect patient encounter time.). - Arthur Horton MD Subjective Subjective limited Objective Last 24 Hour Vital Signs Date Time Temp Pulse Resp B/P (MAP) Pulse Ox O2 Delivery O2 Flow Rate FiO2 09/30/18 12:00 99.3 99 15 147/87 99 Mechanical Ventilator 30 09/30/18 12:00 Mechanical Ventilator Mechanical Ventilator 09/30/18 12:00 30 09/30/18 11:03 86 27 30 09/30/18 08:54 86 27 30 09/30/18 08:00 97.6 77 26 139/84 100 Mechanical Ventilator 30 09/30/18 08:00 Mechanical Ventilator Mechanical Ventilator 09/30/18 08:00 88 09/30/18 08:00 30 09/30/18 07:10 87 26 30 09/30/18 04:40 87 26 30 09/30/18 04:00 77 09/30/18 04:00 30 09/30/18 04:00 Mechanical Ventilator Mechanical Ventilator 09/30/18 03:53 99.0 83 21 138/86 100 Mechanical Ventilator 30 09/30/18 03:30 84 20 30 09/30/18 01:30 89 21 30 09/30/18 00:00 79 09/30/18 00:00 Mechanical Ventilator Mechanical Ventilator 09/29/18 23:30 83 14 30 09/29/18 23:04 98.8 86 16 140/86 100 Mechanical Ventilator 30 09/29/18 21:30 85 16 30 09/29/18 20:00 30 09/29/18 20:00 Mechanical Ventilator Mechanical Ventilator 09/29/18 20:00 90 09/29/18 19:30 86 16 30 09/29/18 19:21 97.7 90 15 126/87 99 Mechanical Ventilator 30 09/29/18 17:38 77 16 30 09/29/18 16:03 71 09/29/18 16:00 30 09/29/18 16:00 98.2 77 16 142/87 98 Mechanical Ventilator 30 09/29/18 16:00 Mechanical Ventilator Mechanical Ventilator 09/29/18 15:05 75 14 30 09/29/18 12:56 86 15 30 Intake and Output 09/29/18 09/30/18 19:00 07:00 Intake Total 1229.0 ml 898.516 ml Output Total 1855 ml 1425 ml Balance -626.0 ml -526.484 ml IV Total 1229.0 ml 898.516 ml Output Urine Total 1000 ml 700 ml Stool Total 390 ml 400 ml Drainage Total 465 ml 325 ml Laboratory Tests Test 09/30/18 02:50 White Blood Count 13.4 K/UL (4.8-10.8) H Red Blood Count 3.22 M/UL (4.70-6.10) L Hemoglobin 9.4 G/DL (14.2-18.0) L Hematocrit 28.2 % (42.0-52.0) L Mean Corpuscular Volume 88 FL (80-99) Mean Corpuscular Hemoglobin 29.1 PG (27.0-31.0) Mean Corpuscular Hemoglobin Concent 33.2 G/DL (32.0-36.0) Red Cell Distribution Width 12.8 % (11.6-14.8) Platelet Count 677 K/UL (150-450) H Mean Platelet Volume 7.3 FL (6.5-10.1) Neutrophils (%) (Auto) 78.5 % (45.0-75.0) H Lymphocytes (%) (Auto) 9.5 % (20.0-45.0) L Monocytes (%) (Auto) 5.5 % (1.0-10.0) Eosinophils (%) (Auto) 4.9 % (0.0-3.0) H Basophils (%) (Auto) 1.6 % (0.0-2.0) Erythrocyte Sedimentation Rate 80 MM/HR (0-20) H Sodium Level 147 MMOL/L (136-145) H Potassium Level 3.5 MMOL/L (3.5-5.1) Chloride Level 115 MMOL/L (98-107) H Carbon Dioxide Level 21 MMOL/L (21-32) Anion Gap 11 mmol/L (5-15) Blood Urea Nitrogen 12 mg/dL (7-18) Creatinine 1.0 MG/DL (0.55-1.30) Estimat Glomerular Filtration Rate > 60 mL/min (>60) Glucose Level 161 MG/DL (74-106) H Calcium Level 6.6 MG/DL (8.5-10.1) L Phosphorus Level 2.3 MG/DL (2.5-4.9) L Magnesium Level 1.7 MG/DL (1.8-2.4) L Total Bilirubin 0.2 MG/DL (0.2-1.0) Aspartate Amino Transf (AST/SGOT) 19 U/L (15-37) Alanine Aminotransferase (ALT/SGPT) 14 U/L (12-78) Alkaline Phosphatase 83 U/L (46-116) C-Reactive Protein, Quantitative 7.5 mg/dL (0.00-0.90) H Pro-B-Type Natriuretic Peptide 3555 pg/mL (0-125) H Total Protein 5.2 G/DL (6.4-8.2) L Albumin 1.0 G/DL (3.4-5.0) L Globulin 4.2 g/dL Albumin/Globulin Ratio 0.2 (1.0-2.7) L Microbiology Date/Time Source Procedure Growth Status 2/19/19 14:30 Body Fluid Abscess Gram Stain Pending Resulted 09/29/18 14:30 Body Fluid Abscess Body Fluid Culture - Preliminary NO GROWTH Resulted Height (Feet): 5 Height (Inches): 5.00 Weight (Pounds): 119 General Appearance: no apparent distress, alert Cardiovascular: normal rate Respiratory/Chest: normal breath sounds, no respiratory distress Abdominal Exam: normal bowel sounds, non tender, soft Extremities: non-tender Becki Holt [employer] VICE PRESIDENT Sep 30, 2018 12:40
--- NOTE | 2018-09-30 13:23 | Nephrology Progress Note ---
Assessment/Plan Problem List: (1) ATN (acute tubular necrosis) Assessment: Cr rising post op but lowering (2) Septic shock (3) Lactic acid acidosis (4) Metabolic acidosis (5) Hyperkalemia (6) G tube feedings (7) Acute respiratory failure Assessment post op 09/22/18: Trach, Splenectomy, Perf.... over all improved: cr rising again presented with Shock , likely septic Acute renal failure resolved Acute metabolic acidosis resolved Hyperkalemia PEG Recent Pneumonia Plan plan: K and Phos supplements on tpn now trached 09/22 post laparatomy 09/22 off pressors pulmonary support Fluid challenge as needed Silva K and Phos and Mag supplement as needed antibiotics monitor renal parameters and ABG poor prognosis Subjective ROS Limited/Unobtainable: Yes Objective Objective Last 24 Hour Vital Signs Date Time Temp Pulse Resp B/P (MAP) Pulse Ox O2 Delivery O2 Flow Rate FiO2 09/30/18 12:00 99.3 99 15 147/87 99 Mechanical Ventilator 30 09/30/18 12:00 Mechanical Ventilator Mechanical Ventilator 09/30/18 12:00 30 09/30/18 11:03 86 27 30 09/30/18 08:54 86 27 30 09/30/18 08:00 97.6 77 26 139/84 100 Mechanical Ventilator 30 09/30/18 08:00 Mechanical Ventilator Mechanical Ventilator 09/30/18 08:00 88 09/30/18 08:00 30 09/30/18 07:10 87 26 30 09/30/18 04:40 87 26 30 09/30/18 04:00 77 09/30/18 04:00 30 09/30/18 04:00 Mechanical Ventilator Mechanical Ventilator 09/30/18 03:53 99.0 83 21 138/86 100 Mechanical Ventilator 30 09/30/18 03:30 84 20 30 09/30/18 01:30 89 21 30 09/30/18 00:00 79 09/30/18 00:00 Mechanical Ventilator Mechanical Ventilator 09/29/18 23:30 83 14 30 09/29/18 23:04 98.8 86 16 140/86 100 Mechanical Ventilator 30 09/29/18 21:30 85 16 30 09/29/18 20:00 30 09/29/18 20:00 Mechanical Ventilator Mechanical Ventilator 09/29/18 20:00 90 09/29/18 19:30 86 16 30 09/29/18 19:21 97.7 90 15 126/87 99 Mechanical Ventilator 30 09/29/18 17:38 77 16 30 09/29/18 16:03 71 09/29/18 16:00 30 09/29/18 16:00 98.2 77 16 142/87 98 Mechanical Ventilator 30 09/29/18 16:00 Mechanical Ventilator Mechanical Ventilator 09/29/18 15:05 75 14 30 Intake and Output 09/29/18 09/30/18 19:00 07:00 Intake Total 1229.0 ml 898.516 ml Output Total 1855 ml 1425 ml Balance -626.0 ml -526.484 ml IV Total 1229.0 ml 898.516 ml Output Urine Total 1000 ml 700 ml Stool Total 390 ml 400 ml Drainage Total 465 ml 325 ml Laboratory Tests 09/30/18 02:50: White Blood Count 13.4H, Red Blood Count 3.22L, Hemoglobin 9.4L, Hematocrit 28.2L, Mean Corpuscular Volume 88, Mean Corpuscular Hemoglobin 29.1, Mean Corpuscular Hemoglobin Concent 33.2, Red Cell Distribution Width 12.8, Platelet Count 677H, Mean Platelet Volume 7.3, Neutrophils (%) (Auto) 78.5H, Lymphocytes (%) (Auto) 9.5L, Monocytes (%) (Auto) 5.5, Eosinophils (%) (Auto) 4.9H, Basophils (%) (Auto) 1.6, Erythrocyte Sedimentation Rate 80H, Sodium Level 147H , Potassium Level 3.5, Chloride Level 115H, Carbon Dioxide Level 21, Anion Gap 11, Blood Urea Nitrogen 12, Creatinine 1.0, Estimat Glomerular Filtration Rate > 60, Glucose Level 161H, Calcium Level 6.6L, Phosphorus Level 2.3L, Magnesium Level 1.7L, Total Bilirubin 0.2, Aspartate Amino Transf (AST/SGOT) 19, Alanine Aminotransferase (ALT/SGPT) 14, Alkaline Phosphatase 83, C-Reactive Protein, Quantitative 7.5H, Pro-B-Type Natriuretic Peptide 3555H, Total Protein 5.2L, Albumin 1.0L, Globulin 4.2, Albumin/Globulin Ratio 0.2L Height (Feet): 5 Height (Inches): 5.00 Weight (Pounds): 119 EENT: other - trach Cardiovascular: normal rate Respiratory/Chest: decreased breath sounds Abdomen: distended Objective no other changes Josesito Smalls MD Sep 30, 2018 13:23
--- NOTE | 2018-09-30 14:52 | General Progress Note ---
Assessment/Plan Problem List: (1) UTI (urinary tract infection) ICD Codes: N39.0 - Urinary tract infection, site not specified SNOMED: 97992497 (2) Renal failure ICD Codes: N19 - Unspecified kidney failure SNOMED: 93495917 (3) Anemia ICD Codes: D64.9 - Anemia, unspecified SNOMED: 412612581 (4) Acute respiratory failure ICD Codes: J96.00 - Acute respiratory failure, unspecified whether with hypoxia or hypercapnia SNOMED: 40393595 (5) Pneumonia ICD Codes: J18.9 - Pneumonia, unspecified organism SNOMED: 571459973 (6) Septic shock ICD Codes: A41.9 - Sepsis, unspecified organism; R65.21 - Severe sepsis with septic shock SNOMED: 70998159 (7) ATN (acute tubular necrosis) ICD Codes: N17.0 - Acute kidney failure with tubular necrosis SNOMED: 30800301 Status: unchanged Assessment/Plan vent abx wound care neph f/u gi eval cbc bmp am Subjective Constitutional: Reports: weakness Allergies: Coded Allergies: No Known Allergies (Unverified , 08/14/18) All Systems: reviewed and negative except above Subjective trach vent altered Objective Last 24 Hour Vital Signs Date Time Temp Pulse Resp B/P (MAP) Pulse Ox O2 Delivery O2 Flow Rate FiO2 09/30/18 13:20 86 18 30 09/30/18 12:00 99.3 99 15 147/87 99 Mechanical Ventilator 30 09/30/18 12:00 Mechanical Ventilator Mechanical Ventilator 09/30/18 12:00 30 09/30/18 11:03 86 27 30 09/30/18 08:54 86 27 30 09/30/18 08:00 97.6 77 26 139/84 100 Mechanical Ventilator 30 09/30/18 08:00 Mechanical Ventilator Mechanical Ventilator 09/30/18 08:00 88 09/30/18 08:00 30 09/30/18 07:10 87 26 30 09/30/18 04:40 87 26 30 09/30/18 04:00 77 09/30/18 04:00 30 09/30/18 04:00 Mechanical Ventilator Mechanical Ventilator 09/30/18 03:53 99.0 83 21 138/86 100 Mechanical Ventilator 30 09/30/18 03:30 84 20 30 2/20/19 01:30 89 21 30 09/30/18 00:00 79 09/30/18 00:00 Mechanical Ventilator Mechanical Ventilator 09/29/18 23:30 83 14 30 09/29/18 23:04 98.8 86 16 140/86 100 Mechanical Ventilator 30 09/29/18 21:30 85 16 30 09/29/18 20:00 30 09/29/18 20:00 Mechanical Ventilator Mechanical Ventilator 09/29/18 20:00 90 09/29/18 19:30 86 16 30 09/29/18 19:21 97.7 90 15 126/87 99 Mechanical Ventilator 30 09/29/18 17:38 77 16 30 09/29/18 16:03 71 09/29/18 16:00 30 09/29/18 16:00 98.2 77 16 142/87 98 Mechanical Ventilator 30 09/29/18 16:00 Mechanical Ventilator Mechanical Ventilator 09/29/18 15:05 75 14 30 Intake and Output 09/29/18 09/30/18 19:00 07:00 Intake Total 1229.0 ml 898.516 ml Output Total 1855 ml 1425 ml Balance -626.0 ml -526.484 ml IV Total 1229.0 ml 898.516 ml Output Urine Total 1000 ml 700 ml Stool Total 390 ml 400 ml Drainage Total 465 ml 325 ml Laboratory Tests 09/30/18 02:50: White Blood Count 13.4H, Red Blood Count 3.22L, Hemoglobin 9.4L, Hematocrit 28.2L, Mean Corpuscular Volume 88, Mean Corpuscular Hemoglobin 29.1, Mean Corpuscular Hemoglobin Concent 33.2, Red Cell Distribution Width 12.8, Platelet Count 677H, Mean Platelet Volume 7.3, Neutrophils (%) (Auto) 78.5H, Lymphocytes (%) (Auto) 9.5L, Monocytes (%) (Auto) 5.5, Eosinophils (%) (Auto) 4.9H, Basophils (%) (Auto) 1.6, Erythrocyte Sedimentation Rate 80H, Sodium Level 147H , Potassium Level 3.5, Chloride Level 115H, Carbon Dioxide Level 21, Anion Gap 11, Blood Urea Nitrogen 12, Creatinine 1.0, Estimat Glomerular Filtration Rate > 60, Glucose Level 161H, Calcium Level 6.6L, Phosphorus Level 2.3L, Magnesium Level 1.7L, Total Bilirubin 0.2, Aspartate Amino Transf (AST/SGOT) 19, Alanine Aminotransferase (ALT/SGPT) 14, Alkaline Phosphatase 83, C-Reactive Protein, Quantitative 7.5H, Pro-B-Type Natriuretic Peptide 3555H, Total Protein 5.2L, Albumin 1.0L, Globulin 4.2, Albumin/Globulin Ratio 0.2L Height (Feet): 5 Height (Inches): 5.00 Weight (Pounds): 119 General Appearance: lethargic EENT: normal ENT inspection Neck: normal alignment Cardiovascular: normal peripheral pulses, normal rate, regular rhythm Respiratory/Chest: chest wall non-tender, decreased breath sounds Abdomen: normal bowel sounds, non tender, soft Extremities: normal inspection Edema: no edema noted Arm (L), no edema noted Arm (R), no edema noted Leg (L), no edema noted Leg (R), no edema noted Pedal (L), no edema noted Pedal (R), no edema noted Generalized Neurologic: motor weakness Skin: normal pigmentation, warm/dry Jasmeet Reynoso DO Sep 30, 2018 14:51
--- NOTE | 2018-09-30 15:25 | General Progress Note ---
Progress Note Progress Note no acute events leukocytosis improved drain output noted but more cloudy serous now cultures from drain with no growth so far cont with dressing changes cont with drain care Isreal Lynne Sep 30, 2018 15:25
--- NOTE | 2018-09-30 15:55 | Infectious Diseases Prog Note ---
Assessment/Plan Assessment/Plan 62 yo male with PMHx of Quadriplegia with G-tube, HTN, DM and Schizophenia who was sent to the ED fromhis residential for AMS. Displaced GT with perforation c/w peritonitis and hematoma/abscess formation -09/22 SP Exploratory laparotomy. Repair of gastric perforation. Evacuation of abdominal omental / lesser sac hematoma. Evacuation of perisplenic hematoma/ abscess. Omentectomy. Splenectomy. Abdominal washout. Tracheostomy. -09/21 CT abd/p: The gastrostomy tube appears to be partially intraluminal and partially communicate with a large intramural collection involving mostly the inferior posterior wall of the stomach. There is some anterior wall pneumatosis. Contrast within the collection most likely represents instilled enteric contrast, but could also represent extravasated vascular contrast. There is evidence of rupture of this collection into the peritoneal space, with extravasated contrast in the left upper quadrant. There is anterior gastric wall intramural pneumatosis as well as a small amount of free extraluminal gas. Moderate ascites. Enhancement of much of the peritoneum raises concern for peritonitis. There may also be loculated intraperitoneal collections which could represent abscesses, predominantly adjacent to the tip of the right hepatic lobe, subcapsular in the spleen, and within the left upper quadrant. Thick-walled sigmoid colon, transverse colon and equivocally the proximal jejunum. Likely reactive related to the above, but could also indicate enteritis /colitis changes Septic shock 2ry to above, SP Leukocytosis, recurrent worsened-after procedure; improving -09/29 L ELISABET drain (+purulebnt fluid) cx : NTD -09/28 u/a neg, ucx NTD Bcx NTD CXR: Over one day, interim development of bilateral supraclavicular subcutaneous emphysema and pneumomediastinum, etiology not demonstrated. Persistent low lung volumes with basilar atelectatic changes and left-sided pleural effusion -09/20 ucx NTD; u/a neg -09/19 CXR: Bilateral pleural effusions and bibasilar atelectasis/airspace disease are stable. Low grade fever; improving Diarrhea- -09/27 Cdiff neg GIB Sepsis - Probably PNA , s/p Rx 09/22 CXR: Bilateral pleural effusions, basilar atelectatic changes, and interstitial congestive changes are stable CXR 09/07/18 - possible left sided consolidation Inf neg 09/07/18 BCx 2/2 sets diphteroids, 1/ setse S. epi (contaminants); 09/11 Bcx NTD 09/07/18 SCx - NF 09/07/18 UCx - Neg 09/09 Cdiff neg HTN DM Schizophenia Quadriplegia. G- tube dependent Plan -Continue Zosyn #/ and IV Micafungin #/ in the setting of stomach perforation and intraabdominal fluid collections -f/u Bcx x2, Urine Cx -09/28 SP Flagyl #3 - 09/19/18 SP Zosyn #10 - 09/17/18 SP Vancmocyin #10 - 09/09/18 Ertapenem #3 - Monitor CBC and temps -Sx f/u -wound care We will continue to follow the patient during this hospitalization. Subjective Allergies: Coded Allergies: No Known Allergies (Unverified , 08/14/18) Subjective afebrile in >48hrs wbc improving Objective Vital Signs Last 24 Hour Vital Signs Date Time Temp Pulse Resp B/P (MAP) Pulse Ox O2 Delivery O2 Flow Rate FiO2 09/30/18 15:11 105 27 30 09/30/18 13:20 86 18 30 09/30/18 12:00 99.3 99 15 147/87 99 Mechanical Ventilator 30 09/30/18 12:00 Mechanical Ventilator Mechanical Ventilator 09/30/18 12:00 30 09/30/18 11:57 94 09/30/18 11:03 86 27 30 09/30/18 08:54 86 27 30 09/30/18 08:00 97.6 77 26 139/84 100 Mechanical Ventilator 30 09/30/18 08:00 Mechanical Ventilator Mechanical Ventilator 09/30/18 08:00 88 09/30/18 08:00 30 09/30/18 07:10 87 26 30 09/30/18 04:40 87 26 30 09/30/18 04:00 77 09/30/18 04:00 30 09/30/18 04:00 Mechanical Ventilator Mechanical Ventilator 09/30/18 03:53 99.0 83 21 138/86 100 Mechanical Ventilator 30 09/30/18 03:30 84 20 30 09/30/18 01:30 89 21 30 09/30/18 00:00 79 09/30/18 00:00 Mechanical Ventilator Mechanical Ventilator 09/29/18 23:30 83 14 30 09/29/18 23:04 98.8 86 16 140/86 100 Mechanical Ventilator 30 09/29/18 21:30 85 16 30 09/29/18 20:00 30 09/29/18 20:00 Mechanical Ventilator Mechanical Ventilator 09/29/18 20:00 90 09/29/18 19:30 86 16 30 09/29/18 19:21 97.7 90 15 126/87 99 Mechanical Ventilator 30 09/29/18 17:38 77 16 30 09/29/18 16:03 71 09/29/18 16:00 30 09/29/18 16:00 98.2 77 16 142/87 98 Mechanical Ventilator 30 09/29/18 16:00 Mechanical Ventilator Mechanical Ventilator Height (Feet): 5 Height (Inches): 5.00 Weight (Pounds): 119 Objective Gen: NAD, On vent satting well 35% O2 HEENT: NCAT, MMM, EOMI LUNGS: CTAB, No W/C, CARDS: RRR, S1, S2, No M/R/G, ABD: Soft, NT, distended, + BS,G tube (No E/P) NEURO: Intubated, not following Microbiology Date/Time Source Procedure Growth Status 09/28/18 19:45 Blood Blood Culture - Preliminary NO GROWTH AFTER 24 HOURS Resulted 09/28/18 19:30 Blood Blood Culture - Preliminary NO GROWTH AFTER 24 HOURS Resulted 09/29/18 14:30 Body Fluid Abscess Gram Stain - Final Resulted 09/29/18 14:30 Body Fluid Abscess Body Fluid Culture - Preliminary NO GROWTH Resulted 09/28/18 18:45 Urine,Clean Catch Urine Culture - Preliminary YEAST Resulted Laboratory Tests Test 09/30/18 02:50 White Blood Count 13.4 K/UL (4.8-10.8) H Red Blood Count 3.22 M/UL (4.70-6.10) L Hemoglobin 9.4 G/DL (14.2-18.0) L Hematocrit 28.2 % (42.0-52.0) L Mean Corpuscular Volume 88 FL (80-99) Mean Corpuscular Hemoglobin 29.1 PG (27.0-31.0) Mean Corpuscular Hemoglobin Concent 33.2 G/DL (32.0-36.0) Red Cell Distribution Width 12.8 % (11.6-14.8) Platelet Count 677 K/UL (150-450) H Mean Platelet Volume 7.3 FL (6.5-10.1) Neutrophils (%) (Auto) 78.5 % (45.0-75.0) H Lymphocytes (%) (Auto) 9.5 % (20.0-45.0) L Monocytes (%) (Auto) 5.5 % (1.0-10.0) Eosinophils (%) (Auto) 4.9 % (0.0-3.0) H Basophils (%) (Auto) 1.6 % (0.0-2.0) Erythrocyte Sedimentation Rate 80 MM/HR (0-20) H Sodium Level 147 MMOL/L (136-145) H Potassium Level 3.5 MMOL/L (3.5-5.1) Chloride Level 115 MMOL/L (98-107) H Carbon Dioxide Level 21 MMOL/L (21-32) Anion Gap 11 mmol/L (5-15) Blood Urea Nitrogen 12 mg/dL (7-18) Creatinine 1.0 MG/DL (0.55-1.30) Estimat Glomerular Filtration Rate > 60 mL/min (>60) Glucose Level 161 MG/DL (74-106) H Calcium Level 6.6 MG/DL (8.5-10.1) L Phosphorus Level 2.3 MG/DL (2.5-4.9) L Magnesium Level 1.7 MG/DL (1.8-2.4) L Total Bilirubin 0.2 MG/DL (0.2-1.0) Aspartate Amino Transf (AST/SGOT) 19 U/L (15-37) Alanine Aminotransferase (ALT/SGPT) 14 U/L (12-78) Alkaline Phosphatase 83 U/L (46-116) C-Reactive Protein, Quantitative 7.5 mg/dL (0.00-0.90) H Pro-B-Type Natriuretic Peptide 3555 pg/mL (0-125) H Total Protein 5.2 G/DL (6.4-8.2) L Albumin 1.0 G/DL (3.4-5.0) L Globulin 4.2 g/dL Albumin/Globulin Ratio 0.2 (1.0-2.7) L Current Medications Medications (Trade) Dose Ordered Sig/Julito Route PRN Reason Start Time Stop Time Status Last Admin Dose Admin Acetaminophen (Tylenol) 650 mg Q4H PRN NG Mild Pain/Temp > 100.5 09/24/18 12:15 10/08/18 12:14 Acetaminophen (Tylenol) 650 mg Q4H PRN RECTAL Mild Pain (Pain Scale 1-3) 09/25/18 21:00 10/25/18 20:59 09/25/18 21:17 Chlorhexidine Gluconate (Camila-Hex 2%) 1 applic DAILY@2000 TOPIC 09/24/18 20:00 10/15/18 19:59 09/29/18 20:42 Dextrose (Dextrose 50%) 25 ml Q30M PRN IV Hypoglycemia 09/24/18 12:30 10/08/18 13:29 Dextrose (Dextrose 50%) 50 ml Q30M PRN IV Hypoglycemia 09/24/18 12:30 10/08/18 13:29 Fat Emulsion Intravenous 216 ml/Amino Acids/ Electrolytes/ Dextrose 1,608 ml @ 67 mls/hr Q24H IV 09/25/18 05:30 10/25/18 05:29 09/30/18 05:17 Heparin Sodium (Porcine) (Heparin 5000 units/ml) 5,000 units EVERY 12 HOURS SUBQ 09/24/18 21:00 10/07/18 20:59 09/30/18 08:11 Insulin Aspart (NovoLOG) Q6HR SUBQ 09/24/18 12:00 10/08/18 11:59 09/30/18 12:09 Loperamide HCl (Imodium) 4 mg TIDPRN PRN ORAL Diarrhea 09/24/18 12:15 10/10/18 12:14 Micafungin Sodium 100 mg/Sodium Chloride 110 ml @ 110 mls/hr Q24H IVPB 09/29/18 18:00 10/05/18 17:59 09/29/18 20:41 Ondansetron HCl (Zofran) 4 mg Q6H PRN IVP Nausea & Vomiting 09/24/18 12:15 10/07/18 12:14 Pantoprazole (Protonix) 40 mg Q12HR IVP 09/24/18 21:00 10/08/18 08:59 09/30/18 08:10 Phytonadione (Vitamin K) 10 mg QWEEK SUBQ 09/30/18 09:00 10/30/18 08:59 09/30/18 08:09 Piperacillin Sod/ Tazobactam Sod 3.375 gm/Sodium Chloride 110 ml @ 27.5 mls/hr EVERY 8 HOURS IVPB 09/24/18 14:00 10/07/18 13:59 09/30/18 14:12 Polyethylene Glycol (Miralax) 17 gm DAILYPRN PRN ORAL Constipation 09/24/18 12:15 10/07/18 12:14 Potassium Phosphate 30 mm/ Sodium Chloride 285 ml @ 47.5 mls/hr ONCE IV 09/30/18 10:00 09/30/18 23:59 09/30/18 10:21 Risperidone (RisperDAL) 0.25 mg QHS ORAL 09/24/18 21:00 10/10/18 20:59 09/27/18 20:04 Sodium Chloride 500 ml @ 999 mls/hr Q31M PRN IV SBP<90mmHg 09/24/18 12:15 10/08/18 10:59 Kell Larkin M.D. Sep 30, 2018 15:55
[2018-09-30 16:00] VITALS: BP 139/92
--- NOTE | 2018-09-30 16:00 | Consultation ---
DATE OF CONSULTATION: 09/30/2018 HISTORY OF PRESENT ILLNESS: This is a 62-year-old confused, disorganized, altered mental status. His cognition has declined below baseline secondary to his medical illness. That is why his attending has requested daily psychiatric consultation. MENTAL STATUS EXAMINATION: This is a 62-year-old male. Appearance is disheveled. Attitude irritable and agitated. Intellect poor. Mood depressed and anxious. Motor activity, psychomotor retardation. Insight and judgment are poor. DIAGNOSIS: Major depressive disorder, rule out psychotic features, rule paranoid schizophrenia. PLAN: Treat him with Risperdal 0.25 mg daily to stabilize his mood paranoia, and psychosis. Also provide him with 20 minutes of behavioral management. Try to provide 20 minutes of insight-oriented psychotherapy. This concludes cognition, but he has altered mental status and confusion. The patient is seen and assessed at bedside. Chart was reviewed. Discussed with staff. Virgie Mcdermott M.D. DR: DESMOND JOB#: [id number] CC:
--- NOTE | 2018-09-30 16:06 | Cardiac Electrophysiology PN ---
Assessment/Plan Assessment/Plan 1. S/P Septic and hemorrhagic shock with Lactic acidosis. On Abx and S/P PRBC 2. Sinus tachycardia in 140s due to sepsis, anemia and dehydration. No fibrillation. EF 75%. 3. Troponin elevation due to renal failure. EF 75%. 4. Respiratory failure on the vent. S/P Tracheostomy 09/22/18 5. Rhabdomyolysis with CPK in thousands. May be contributing to renal failure. 6. Acute renal failure and severe hyperkalemia. FU by Dr. Smalls 7. Dysphagia, Hx of PEG placement but was dislodged. 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 Smalls Both drains still draining 8. GI bleed. S/P EGD by Dr. Horton. S/p PRBCs DW RN Subjective Subjective On the Vent via tracheostomy. Still draining from abdominal drains On TPN and Lipid. Objective Last 24 Hour Vital Signs Date Time Temp Pulse Resp B/P (MAP) Pulse Ox O2 Delivery O2 Flow Rate FiO2 09/30/18 15:11 105 27 30 09/30/18 13:20 86 18 30 09/30/18 12:00 99.3 99 15 147/87 99 Mechanical Ventilator 30 09/30/18 12:00 Mechanical Ventilator Mechanical Ventilator 09/30/18 12:00 30 09/30/18 11:57 94 09/30/18 11:03 86 27 30 09/30/18 08:54 86 27 30 09/30/18 08:00 97.6 77 26 139/84 100 Mechanical Ventilator 30 09/30/18 08:00 Mechanical Ventilator Mechanical Ventilator 09/30/18 08:00 88 09/30/18 08:00 30 09/30/18 07:10 87 26 30 09/30/18 04:40 87 26 30 09/30/18 04:00 77 09/30/18 04:00 30 09/30/18 04:00 Mechanical Ventilator Mechanical Ventilator 09/30/18 03:53 99.0 83 21 138/86 100 Mechanical Ventilator 30 09/30/18 03:30 84 20 30 09/30/18 01:30 89 21 30 09/30/18 00:00 79 09/30/18 00:00 Mechanical Ventilator Mechanical Ventilator 09/29/18 23:30 83 14 30 09/29/18 23:04 98.8 86 16 140/86 100 Mechanical Ventilator 30 09/29/18 21:30 85 16 30 09/29/18 20:00 30 09/29/18 20:00 Mechanical Ventilator Mechanical Ventilator 09/29/18 20:00 90 09/29/18 19:30 86 16 30 09/29/18 19:21 97.7 90 15 126/87 99 Mechanical Ventilator 30 09/29/18 17:38 77 16 30 09/29/18 16:03 71 09/29/18 16:00 30 09/29/18 16:00 98.2 77 16 142/87 98 Mechanical Ventilator 30 09/29/18 16:00 Mechanical Ventilator Mechanical Ventilator Intake and Output 09/29/18 09/30/18 19:00 07:00 Intake Total 1229.0 ml 898.516 ml Output Total 1855 ml 1425 ml Balance -626.0 ml -526.484 ml IV Total 1229.0 ml 898.516 ml Output Urine Total 1000 ml 700 ml Stool Total 390 ml 400 ml Drainage Total 465 ml 325 ml Laboratory Tests Test 09/30/18 02:50 White Blood Count 13.4 K/UL (4.8-10.8) H Red Blood Count 3.22 M/UL (4.70-6.10) L Hemoglobin 9.4 G/DL (14.2-18.0) L Hematocrit 28.2 % (42.0-52.0) L Mean Corpuscular Volume 88 FL (80-99) Mean Corpuscular Hemoglobin 29.1 PG (27.0-31.0) Mean Corpuscular Hemoglobin Concent 33.2 G/DL (32.0-36.0) Red Cell Distribution Width 12.8 % (11.6-14.8) Platelet Count 677 K/UL (150-450) H Mean Platelet Volume 7.3 FL (6.5-10.1) Neutrophils (%) (Auto) 78.5 % (45.0-75.0) H Lymphocytes (%) (Auto) 9.5 % (20.0-45.0) L Monocytes (%) (Auto) 5.5 % (1.0-10.0) Eosinophils (%) (Auto) 4.9 % (0.0-3.0) H Basophils (%) (Auto) 1.6 % (0.0-2.0) Erythrocyte Sedimentation Rate 80 MM/HR (0-20) H Sodium Level 147 MMOL/L (136-145) H Potassium Level 3.5 MMOL/L (3.5-5.1) Chloride Level 115 MMOL/L (98-107) H Carbon Dioxide Level 21 MMOL/L (21-32) Anion Gap 11 mmol/L (5-15) Blood Urea Nitrogen 12 mg/dL (7-18) Creatinine 1.0 MG/DL (0.55-1.30) Estimat Glomerular Filtration Rate > 60 mL/min (>60) Glucose Level 161 MG/DL (74-106) H Calcium Level 6.6 MG/DL (8.5-10.1) L Phosphorus Level 2.3 MG/DL (2.5-4.9) L Magnesium Level 1.7 MG/DL (1.8-2.4) L Total Bilirubin 0.2 MG/DL (0.2-1.0) Aspartate Amino Transf (AST/SGOT) 19 U/L (15-37) Alanine Aminotransferase (ALT/SGPT) 14 U/L (12-78) Alkaline Phosphatase 83 U/L (46-116) C-Reactive Protein, Quantitative 7.5 mg/dL (0.00-0.90) H Pro-B-Type Natriuretic Peptide 3555 pg/mL (0-125) H Total Protein 5.2 G/DL (6.4-8.2) L Albumin 1.0 G/DL (3.4-5.0) L Globulin 4.2 g/dL Albumin/Globulin Ratio 0.2 (1.0-2.7) L Microbiology Date/Time Source Procedure Growth Status 09/28/18 19:45 Blood Blood Culture - Preliminary NO GROWTH AFTER 24 HOURS Resulted 09/28/18 19:30 Blood Blood Culture - Preliminary NO GROWTH AFTER 24 HOURS Resulted 09/29/18 14:30 Body Fluid Abscess Gram Stain - Final Resulted 09/29/18 14:30 Body Fluid Abscess Body Fluid Culture - Preliminary NO GROWTH Resulted 09/28/18 18:45 Urine,Clean Catch Urine Culture - Preliminary YEAST Resulted Objective HEENT: S/P tracheostomy. No JVD LUNGS: Coarse rhonchi. CARDIOVASCULAR: Tachycardic S1 and S2. ABDOMEN: Post op covered with dressing and drain EXTREMITIES: No pitting edema. Jasbir Madsen MD Sep 30, 2018 16:06
[2018-09-30] MEDS: Micafungin 100 MG in NS 110 ML IVPB SCH (17:26)
[2018-09-30 20:00] VITALS: BP 135/90
[2018-09-30] MEDS: Dyna-Hex 2% Top Sol 2oz TOPIC SCH (20:22)
[2018-10-01] VITALS: BP 143/84
[2018-10-01] MEDS: NovoLOG Insulin Flexpen SUBQ SCH ×4 (01:02→17:45)
[2018-10-01 04:00] VITALS: BP 149/77
[2018-10-01] MEDS: Piperacillin/Tazobactam 3.375 GM in NS 110 ML IVPB SCH ×3 (05:14→21:01)
[2018-10-01] MEDS: TPN IV SCH (05:22)
[2018-10-01] MEDS: FAT EMULSION 20% IV SCH (05:22)
[2018-10-01 05:48] LABS: BASOPHILS % (AUTO) 1.1 % (0.0-2.0); EOSINOPHILS % (AUTO) 5.1 % (0.0-3.0); HEMATOCRIT 26.8 % (42.0-52.0); HEMOGLOBIN 8.9 G/DL (14.2-18.0); LYMPHOCYTES % (AUTO) 8.8 % (20.0-45.0); MEAN CORPUSCULAR VOLUME 88 FL (80-99); MONOCYTES % (AUTO) 5.5 % (1.0-10.0); NEUTROPHILS % (AUTO) 79.5 % (45.0-75.0); PLATELET COUNT 714 K/UL (150-450); RED BLOOD COUNT 3.05 M/UL (4.70-6.10); RED CELL DISTRIBUTION WIDTH 13.1 % (11.6-14.8); WHITE BLOOD COUNT 13.7 K/UL (4.8-10.8)
[2018-10-01 06:33] LABS: ALANINE AMINOTRANSFERASE 9 U/L (12-78); ALBUMIN/GLOBULIN RATIO 0.2 (1.0-2.7); ALKALINE PHOSPHATASE 78 U/L (46-116); ANION GAP 11 mmol/L (5-15); ASPARTATE AMINO TRANSFERASE 18 U/L (15-37); BILIRUBIN,TOTAL 0.2 MG/DL (0.2-1.0); BLOOD UREA NITROGEN 12 mg/dL (7-18); CALCIUM 6.5 MG/DL (8.5-10.1); CARBON DIOXIDE 21 MMOL/L (21-32); CHLORIDE 113 MMOL/L (98-107); PHOSPHORUS 2.6 MG/DL (2.5-4.9); POTASSIUM 3.3 MMOL/L (3.5-5.1); SODIUM 145 MMOL/L (136-145)
[2018-10-01 08:00] VITALS: BP 140/88
[2018-10-01] MEDS: Pantoprazole Inj IVP SCH ×2 (08:31→20:55)
[2018-10-01] MEDS: Heparin 5000 units/ml inj SUBQ SCH ×2 (08:33→21:00)
--- NOTE | 2018-10-01 11:42 | GI Progress Note ---
Assessment/Plan Problems: (1) G tube feedings ICD Codes: Z93.1 - Gastrostomy status SNOMED: 080961970, 555976131 (2) Protein-calorie malnutrition, severe ICD Codes: E43 - Unspecified severe protein-calorie malnutrition SNOMED: 263272942 (3) Anemia ICD Codes: D64.9 - Anemia, unspecified SNOMED: 526372926 (4) GI bleed ICD Codes: K92.2 - Gastrointestinal hemorrhage, unspecified SNOMED: 86572125 Status: unchanged Status Narrative Discussed with Dr. Horton. Assessment/Plan PREOPERATIVE DIAGNOSES: 1. Malpositioned feeding tube with leak and peritonitis/perforation. 2. Respiratory insufficiency requiring prolonged ventilatory support. POSTOPERATIVE DIAGNOSES: 1. Large omental perigastric hematoma. 2. Malpositioned PEG tube with gastric perforation. 3. Large perisplenic abscess. 4. Abdominal peritonitis. 5. Respiratory insufficiency requiring prolonged ventilatory support. OPERATION PERFORMED: 1. Exploratory laparotomy. 2. Repair of gastric perforation. 3. Evacuation of abdominal omental / lesser sac hematoma. 4. Evacuation of perisplenic hematoma/abscess. 5. Omentectomy. 6. Splenectomy. 7. Abdominal washout. 8. Tracheostomy. RECOMMENDATIONS: fu surgical recommendations TPN prn transfusion ppi abx fu labs The patient was seen and examined at bedside and all new and available data was reviewed in the patients chart. I agree with the above findings, impression and plan. (Patient seen earlier today. Signature stamp does not reflect patient encounter time.). - Arthur Horton MD Subjective Subjective limited Objective Last 24 Hour Vital Signs Date Time Temp Pulse Resp B/P (MAP) Pulse Ox O2 Delivery O2 Flow Rate FiO2 10/01/18 10:32 85 23 30 10/01/18 08:53 82 12 30 10/01/18 08:00 30 10/01/18 08:00 98.1 89 19 140/88 100 Mechanical Ventilator 30 10/01/18 08:00 Mechanical Ventilator Mechanical Ventilator 10/01/18 07:36 81 10/01/18 06:50 83 13 30 10/01/18 05:29 94 19 30 10/01/18 04:00 Mechanical Ventilator Mechanical Ventilator 10/01/18 04:00 30 10/01/18 04:00 85 10/01/18 04:00 98.8 89 20 149/77 100 Mechanical Ventilator 30 10/01/18 03:11 102 24 30 10/01/18 00:44 101 17 30 10/01/18 00:00 99.3 86 21 143/84 99 Mechanical Ventilator 30 10/01/18 00:00 88 10/01/18 00:00 Mechanical Ventilator Mechanical Ventilator 10/01/18 00:00 30 09/30/18 23:20 99 18 30 09/30/18 20:46 111 24 30 09/30/18 20:00 103 09/30/18 20:00 Mechanical Ventilator Mechanical Ventilator 09/30/18 20:00 30 09/30/18 20:00 98.6 65 19 135/90 93 Mechanical Ventilator 30 09/30/18 18:57 98 24 30 09/30/18 16:55 90 16 30 09/30/18 16:00 96 09/30/18 16:00 98.2 95 20 139/92 95 Mechanical Ventilator 30 09/30/18 16:00 30 09/30/18 16:00 Mechanical Ventilator Mechanical Ventilator 09/30/18 15:11 105 27 30 09/30/18 13:20 86 18 30 09/30/18 12:00 99.3 99 15 147/87 99 Mechanical Ventilator 30 09/30/18 12:00 Mechanical Ventilator Mechanical Ventilator 09/30/18 12:00 30 09/30/18 11:57 94 Intake and Output 09/30/18 10/01/18 19:00 07:00 Intake Total 261.313 ml Output Total 1060 ml 1110 ml Balance -1060 ml -848.687 ml IV Total 261.313 ml Output Urine Total 850 ml 800 ml Stool Total 100 ml 100 ml Drainage Total 110 ml 210 ml Laboratory Tests Test 10/01/18 03:35 White Blood Count 13.7 K/UL (4.8-10.8) H Red Blood Count 3.05 M/UL (4.70-6.10) L Hemoglobin 8.9 G/DL (14.2-18.0) L Hematocrit 26.8 % (42.0-52.0) L Mean Corpuscular Volume 88 FL (80-99) Mean Corpuscular Hemoglobin 29.1 PG (27.0-31.0) Mean Corpuscular Hemoglobin Concent 33.1 G/DL (32.0-36.0) Red Cell Distribution Width 13.1 % (11.6-14.8) Platelet Count 714 K/UL (150-450) H Mean Platelet Volume 7.4 FL (6.5-10.1) Neutrophils (%) (Auto) 79.5 % (45.0-75.0) H Lymphocytes (%) (Auto) 8.8 % (20.0-45.0) L Monocytes (%) (Auto) 5.5 % (1.0-10.0) Eosinophils (%) (Auto) 5.1 % (0.0-3.0) H Basophils (%) (Auto) 1.1 % (0.0-2.0) Sodium Level 145 MMOL/L (136-145) Potassium Level 3.3 MMOL/L (3.5-5.1) L Chloride Level 113 MMOL/L (98-107) H Carbon Dioxide Level 21 MMOL/L (21-32) Anion Gap 11 mmol/L (5-15) Blood Urea Nitrogen 12 mg/dL (7-18) Creatinine 1.0 MG/DL (0.55-1.30) Estimat Glomerular Filtration Rate > 60 mL/min (>60) Glucose Level 179 MG/DL (74-106) H Calcium Level 6.5 MG/DL (8.5-10.1) L Phosphorus Level 2.6 MG/DL (2.5-4.9) Magnesium Level 1.9 MG/DL (1.8-2.4) Total Bilirubin 0.2 MG/DL (0.2-1.0) Aspartate Amino Transf (AST/SGOT) 18 U/L (15-37) Alanine Aminotransferase (ALT/SGPT) 9 U/L (12-78) L Alkaline Phosphatase 78 U/L (46-116) Total Protein 5.1 G/DL (6.4-8.2) L Albumin 1.0 G/DL (3.4-5.0) L Globulin 4.1 g/dL Albumin/Globulin Ratio 0.2 (1.0-2.7) L Height (Feet): 5 Height (Inches): 5.00 Weight (Pounds): 122 General Appearance: no apparent distress Cardiovascular: normal rate Respiratory/Chest: normal breath sounds Abdominal Exam: normal bowel sounds, non tender, soft, incision site Extremities: non-tender Holt,Sonja-Pan DERMATOLOGY TEACHER Oct 01, 2018 11:41
[2018-10-01 12:00] VITALS: BP 138/81
--- NOTE | 2018-10-01 12:07 | Pulmonolgy Critical Care Note ---
Critical Care - Asmt/Plan Problems: (1) Acute respiratory failure (2) Septic shock (3) ATN (acute tubular necrosis) (4) Metabolic acidosis (5) Gastric rupture Respiratory: monitor respiratory rate, adjust FIO2, CXR Cardiac: continue to monitor HR/BP Renal: F/U I&O, keep IV fluid, check electrolytes Infectious Disease: check cultures, continue antibiotics Gastrointestinal: continue feedings/current rate Endocrine: monitor blood sugar, check HgA1C Hematologic: monitor H/H, transfuse if hgb<8.5 Neurologic: PRN Morphine, keep patient comfortable Affect: PRN ativan Prophylaxis: Heparin Notes Reviewed: planetarium sky show technician, renal Discussed with: nurses, consultants, pillowcase turnermanager of employee relations - Objective Last 24 Hour Vital Signs Date Time Temp Pulse Resp B/P (MAP) Pulse Ox O2 Delivery O2 Flow Rate FiO2 10/01/18 10:32 85 23 30 10/01/18 08:53 82 12 30 10/01/18 08:00 30 10/01/18 08:00 98.1 89 19 140/88 100 Mechanical Ventilator 30 10/01/18 08:00 Mechanical Ventilator Mechanical Ventilator 10/01/18 07:36 81 10/01/18 06:50 83 13 30 10/01/18 05:29 94 19 30 10/01/18 04:00 Mechanical Ventilator Mechanical Ventilator 10/01/18 04:00 30 10/01/18 04:00 85 10/01/18 04:00 98.8 89 20 149/77 100 Mechanical Ventilator 30 10/01/18 03:11 102 24 30 10/01/18 00:44 101 17 30 10/01/18 00:00 99.3 86 21 143/84 99 Mechanical Ventilator 30 10/01/18 00:00 88 10/01/18 00:00 Mechanical Ventilator Mechanical Ventilator 10/01/18 00:00 30 09/30/18 23:20 99 18 30 09/30/18 20:46 111 24 30 09/30/18 20:00 103 09/30/18 20:00 Mechanical Ventilator Mechanical Ventilator 09/30/18 20:00 30 09/30/18 20:00 98.6 65 19 135/90 93 Mechanical Ventilator 30 09/30/18 18:57 98 24 30 09/30/18 16:55 90 16 30 09/30/18 16:00 96 09/30/18 16:00 98.2 95 20 139/92 95 Mechanical Ventilator 30 09/30/18 16:00 30 09/30/18 16:00 Mechanical Ventilator Mechanical Ventilator 09/30/18 15:11 105 27 30 09/30/18 13:20 86 18 30 Status: awake Condition: critical HEENT: atraumatic Neck: full ROM Lungs: clear Heart: HR/BP stable Abdomen: active bowel sounds Extremities: no C/C/E Decubiti: location Micro: Microbiology Date/Time Source Procedure Growth Status 09/28/18 19:45 Blood Blood Culture - Preliminary NO GROWTH AFTER 48 HOURS Resulted 09/28/18 19:30 Blood Blood Culture - Preliminary NO GROWTH AFTER 48 HOURS Resulted 09/29/18 14:30 Body Fluid Abscess Gram Stain - Final Resulted 09/29/18 14:30 Body Fluid Culture - Preliminary YEAST Resulted 09/28/18 18:45 Urine,Clean Catch Urine Culture - Final Nicky Tropicalis Complete Accucheck: 178 Critical Care - Subjective ROS Limited/Unobtainable: Yes Condition: critical EKG Rhythm: Sinus Rhythm FI02: 30 Vent Support Breath Rate: 12 Vent Support Mode: AC Vent Tidal Volume: 600 Sputum Amount: Small PEEP: 0.0 PIP: 32 Tube Feeding Amount: 0 I&O: Intake and Output 09/30/18 10/01/18 19:00 07:00 Intake Total 261.313 ml Output Total 1060 ml 1110 ml Balance -1060 ml -848.687 ml IV Total 261.313 ml Output Urine Total 850 ml 800 ml Stool Total 100 ml 100 ml Drainage Total 110 ml 210 ml CXR: no change Labs: Laboratory Tests Test 10/01/18 03:35 White Blood Count 13.7 K/UL (4.8-10.8) H Red Blood Count 3.05 M/UL (4.70-6.10) L Hemoglobin 8.9 G/DL (14.2-18.0) L Hematocrit 26.8 % (42.0-52.0) L Mean Corpuscular Volume 88 FL (80-99) Mean Corpuscular Hemoglobin 29.1 PG (27.0-31.0) Mean Corpuscular Hemoglobin Concent 33.1 G/DL (32.0-36.0) Red Cell Distribution Width 13.1 % (11.6-14.8) Platelet Count 714 K/UL (150-450) H Mean Platelet Volume 7.4 FL (6.5-10.1) Neutrophils (%) (Auto) 79.5 % (45.0-75.0) H Lymphocytes (%) (Auto) 8.8 % (20.0-45.0) L Monocytes (%) (Auto) 5.5 % (1.0-10.0) Eosinophils (%) (Auto) 5.1 % (0.0-3.0) H Basophils (%) (Auto) 1.1 % (0.0-2.0) Sodium Level 145 MMOL/L (136-145) Potassium Level 3.3 MMOL/L (3.5-5.1) L Chloride Level 113 MMOL/L (98-107) H Carbon Dioxide Level 21 MMOL/L (21-32) Anion Gap 11 mmol/L (5-15) Blood Urea Nitrogen 12 mg/dL (7-18) Creatinine 1.0 MG/DL (0.55-1.30) Estimat Glomerular Filtration Rate > 60 mL/min (>60) Glucose Level 179 MG/DL (74-106) H Calcium Level 6.5 MG/DL (8.5-10.1) L Phosphorus Level 2.6 MG/DL (2.5-4.9) Magnesium Level 1.9 MG/DL (1.8-2.4) Total Bilirubin 0.2 MG/DL (0.2-1.0) Aspartate Amino Transf (AST/SGOT) 18 U/L (15-37) Alanine Aminotransferase (ALT/SGPT) 9 U/L (12-78) L Alkaline Phosphatase 78 U/L (46-116) Total Protein 5.1 G/DL (6.4-8.2) L Albumin 1.0 G/DL (3.4-5.0) L Globulin 4.1 g/dL Albumin/Globulin Ratio 0.2 (1.0-2.7) L Po Li MD Oct 01, 2018 12:07
[2018-10-01] MEDS ORDERED: Gastrograffin 30ml ORAL PRN (13:00)
[2018-10-01] MEDS ORDERED: Isovue-300 100ml vial INJ PRN (13:00)
--- NOTE | 2018-10-01 14:28 | General Progress Note ---
Progress Note Progress Note drain grew out yeast otherwise improving CT today Isreal Lynne Oct 01, 2018 14:28
--- NOTE | 2018-10-01 14:54 | Infectious Diseases Prog Note ---
Assessment/Plan Assessment/Plan 62 yo male with PMHx of Quadriplegia with G-tube, HTN, DM and Schizophenia who was sent to the ED fromhis detention for AMS. Displaced GT with perforation c/w peritonitis and hematoma/abscess formation -09/22 SP Exploratory laparotomy. Repair of gastric perforation. Evacuation of abdominal omental / lesser sac hematoma. Evacuation of perisplenic hematoma/ abscess. Omentectomy. Splenectomy. Abdominal washout. Tracheostomy. -09/21 CT abd/p: The gastrostomy tube appears to be partially intraluminal and partially communicate with a large intramural collection involving mostly the inferior posterior wall of the stomach. There is some anterior wall pneumatosis. Contrast within the collection most likely represents instilled enteric contrast, but could also represent extravasated vascular contrast. There is evidence of rupture of this collection into the peritoneal space, with extravasated contrast in the left upper quadrant. There is anterior gastric wall intramural pneumatosis as well as a small amount of free extraluminal gas. Moderate ascites. Enhancement of much of the peritoneum raises concern for peritonitis. There may also be loculated intraperitoneal collections which could represent abscesses, predominantly adjacent to the tip of the right hepatic lobe, subcapsular in the spleen, and within the left upper quadrant. Thick-walled sigmoid colon, transverse colon and equivocally the proximal jejunum. Likely reactive related to the above, but could also indicate enteritis /colitis changes Septic shock 2ry to above, SP Leukocytosis, recurrent worsened-after procedure; improving -09/29 L ELISABET drain (+purulebnt fluid) cx : yeast so far -09/28 u/a neg, ucx NTD Bcx NTD CXR: Over one day, interim development of bilateral supraclavicular subcutaneous emphysema and pneumomediastinum, etiology not demonstrated. Persistent low lung volumes with basilar atelectatic changes and left-sided pleural effusion -09/20 ucx NTD; u/a neg -09/19 CXR: Bilateral pleural effusions and bibasilar atelectasis/airspace disease are stable. Low grade fever; SP Diarrhea- -09/27 Cdiff neg GIB Sepsis - Probably PNA , s/p Rx 09/22 CXR: Bilateral pleural effusions, basilar atelectatic changes, and interstitial congestive changes are stable CXR 09/07/18 - possible left sided consolidation Inf neg 09/07/18 BCx 2/2 sets diphteroids, 1/ setse S. epi (contaminants); 09/11 Bcx NTD 09/07/18 SCx - NF 09/07/18 UCx - Neg 09/09 Cdiff neg HTN DM Schizophenia Quadriplegia. G- tube dependent Plan -Continue Zosyn #10 and IV Micafungin #9 in the setting of stomach perforation and intraabdominal fluid collections --minimum of 2 weeks but will continue abx until drains have been removed -f/u cx -09/28 SP Flagyl #3 - 09/19/18 SP Zosyn #10 - 09/17/18 SP Vancmocyin #10 - 09/09/18 Ertapenem #3 - Monitor CBC and temps -Sx f/u -wound care -f/u repeat CT We will continue to follow the patient during this hospitalization. Subjective Allergies: Coded Allergies: No Known Allergies (Unverified , 08/14/18) Subjective afebrile in >72hrs wbc improving Fluid cx growing yeast so far Objective Vital Signs Last 24 Hour Vital Signs Date Time Temp Pulse Resp B/P (MAP) Pulse Ox O2 Delivery O2 Flow Rate FiO2 10/01/18 12:54 84 17 30 10/01/18 12:31 30 10/01/18 12:00 Mechanical Ventilator Mechanical Ventilator 10/01/18 12:00 99.8 81 17 138/81 100 Mechanical Ventilator 30 10/01/18 11:31 80 10/01/18 10:32 85 23 30 10/01/18 08:53 82 12 30 10/01/18 08:00 30 10/01/18 08:00 98.1 89 19 140/88 100 Mechanical Ventilator 30 10/01/18 08:00 Mechanical Ventilator Mechanical Ventilator 10/01/18 07:36 81 10/01/18 06:50 83 13 30 10/01/18 05:29 94 19 30 10/01/18 04:00 Mechanical Ventilator Mechanical Ventilator 10/01/18 04:00 30 10/01/18 04:00 85 10/01/18 04:00 98.8 89 20 149/77 100 Mechanical Ventilator 30 10/01/18 03:11 102 24 30 10/01/18 00:44 101 17 30 10/01/18 00:00 99.3 86 21 143/84 99 Mechanical Ventilator 30 10/01/18 00:00 88 10/01/18 00:00 Mechanical Ventilator Mechanical Ventilator 10/01/18 00:00 30 09/30/18 23:20 99 18 30 09/30/18 20:46 111 24 30 09/30/18 20:00 103 09/30/18 20:00 Mechanical Ventilator Mechanical Ventilator 09/30/18 20:00 30 09/30/18 20:00 98.6 65 19 135/90 93 Mechanical Ventilator 30 09/30/18 18:57 98 24 30 09/30/18 16:55 90 16 30 09/30/18 16:00 96 09/30/18 16:00 98.2 95 20 139/92 95 Mechanical Ventilator 30 09/30/18 16:00 30 09/30/18 16:00 Mechanical Ventilator Mechanical Ventilator 09/30/18 15:11 105 27 30 Height (Feet): 5 Height (Inches): 5.00 Weight (Pounds): 122 Objective Gen: NAD, On vent satting well 35% O2 HEENT: NCAT, MMM, EOMI LUNGS: CTAB, No W/C, CARDS: RRR, S1, S2, No M/R/G, ABD: Soft, NT, distended, + BS,G tube (No E/P) NEURO: Intubated, not following Microbiology Date/Time Source Procedure Growth Status 09/28/18 19:45 Blood Blood Culture - Preliminary NO GROWTH AFTER 48 HOURS Resulted 09/28/18 19:30 Blood Blood Culture - Preliminary NO GROWTH AFTER 48 HOURS Resulted 09/29/18 14:30 Body Fluid Abscess Gram Stain - Final Resulted 09/29/18 14:30 Body Fluid Culture - Preliminary YEAST Resulted 09/28/18 18:45 Urine,Clean Catch Urine Culture - Final Nicky Tropicalis Complete Laboratory Tests Test 10/01/18 03:35 White Blood Count 13.7 K/UL (4.8-10.8) H Red Blood Count 3.05 M/UL (4.70-6.10) L Hemoglobin 8.9 G/DL (14.2-18.0) L Hematocrit 26.8 % (42.0-52.0) L Mean Corpuscular Volume 88 FL (80-99) Mean Corpuscular Hemoglobin 29.1 PG (27.0-31.0) Mean Corpuscular Hemoglobin Concent 33.1 G/DL (32.0-36.0) Red Cell Distribution Width 13.1 % (11.6-14.8) Platelet Count 714 K/UL (150-450) H Mean Platelet Volume 7.4 FL (6.5-10.1) Neutrophils (%) (Auto) 79.5 % (45.0-75.0) H Lymphocytes (%) (Auto) 8.8 % (20.0-45.0) L Monocytes (%) (Auto) 5.5 % (1.0-10.0) Eosinophils (%) (Auto) 5.1 % (0.0-3.0) H Basophils (%) (Auto) 1.1 % (0.0-2.0) Sodium Level 145 MMOL/L (136-145) Potassium Level 3.3 MMOL/L (3.5-5.1) L Chloride Level 113 MMOL/L (98-107) H Carbon Dioxide Level 21 MMOL/L (21-32) Anion Gap 11 mmol/L (5-15) Blood Urea Nitrogen 12 mg/dL (7-18) Creatinine 1.0 MG/DL (0.55-1.30) Estimat Glomerular Filtration Rate > 60 mL/min (>60) Glucose Level 179 MG/DL (74-106) H Calcium Level 6.5 MG/DL (8.5-10.1) L Phosphorus Level 2.6 MG/DL (2.5-4.9) Magnesium Level 1.9 MG/DL (1.8-2.4) Total Bilirubin 0.2 MG/DL (0.2-1.0) Aspartate Amino Transf (AST/SGOT) 18 U/L (15-37) Alanine Aminotransferase (ALT/SGPT) 9 U/L (12-78) L Alkaline Phosphatase 78 U/L (46-116) Total Protein 5.1 G/DL (6.4-8.2) L Albumin 1.0 G/DL (3.4-5.0) L Globulin 4.1 g/dL Albumin/Globulin Ratio 0.2 (1.0-2.7) L Current Medications Medications (Trade) Dose Ordered Sig/Julito Route PRN Reason Start Time Stop Time Status Last Admin Dose Admin Acetaminophen (Tylenol) 650 mg Q4H PRN NG Mild Pain/Temp > 100.5 09/24/18 12:15 10/08/18 12:14 Acetaminophen (Tylenol) 650 mg Q4H PRN RECTAL Mild Pain (Pain Scale 1-3) 09/25/18 21:00 10/25/18 20:59 09/25/18 21:17 Chlorhexidine Gluconate (Camila-Hex 2%) 1 applic DAILY@2000 TOPIC 09/24/18 20:00 10/15/18 19:59 09/30/18 20:22 Dextrose (Dextrose 50%) 25 ml Q30M PRN IV Hypoglycemia 09/24/18 12:30 10/08/18 13:29 Dextrose (Dextrose 50%) 50 ml Q30M PRN IV Hypoglycemia 09/24/18 12:30 10/08/18 13:29 Diatrizoate Meglum/ Diatrizoate Sod (Gastrografin) 30 ml NOW PRN ORAL Radiology Procedure 10/01/18 13:00 10/03/18 12:59 Fat Emulsion Intravenous 216 ml/Amino Acids/ Electrolytes/ Dextrose 1,608 ml @ 67 mls/hr Q24H IV 09/25/18 05:30 10/25/18 05:29 10/01/18 05:22 Heparin Sodium (Porcine) (Heparin 5000 units/ml) 5,000 units EVERY 12 HOURS SUBQ 09/24/18 21:00 10/07/18 20:59 10/01/18 08:33 Insulin Aspart (NovoLOG) Q6HR SUBQ 09/24/18 12:00 10/08/18 11:59 10/01/18 12:00 Iopamidol (Isovue-300 100ml) 100 ml NOW PRN INJ Radiology Procedure 10/01/18 13:00 10/03/18 12:59 Loperamide HCl (Imodium) 4 mg TIDPRN PRN ORAL Diarrhea 09/24/18 12:15 10/10/18 12:14 Micafungin Sodium 100 mg/Sodium Chloride 110 ml @ 110 mls/hr Q24H IVPB 09/29/18 18:00 10/05/18 17:59 09/30/18 17:26 Ondansetron HCl (Zofran) 4 mg Q6H PRN IVP Nausea & Vomiting 09/24/18 12:15 10/07/18 12:14 Pantoprazole (Protonix) 40 mg Q12HR IVP 09/24/18 21:00 10/08/18 08:59 10/01/18 08:31 Phytonadione (Vitamin K) 10 mg QWEEK SUBQ 09/30/18 09:00 10/30/18 08:59 09/30/18 08:09 Piperacillin Sod/ Tazobactam Sod 3.375 gm/Sodium Chloride 110 ml @ 27.5 mls/hr EVERY 8 HOURS IVPB 09/24/18 14:00 10/07/18 13:59 10/01/18 14:18 Polyethylene Glycol (Miralax) 17 gm DAILYPRN PRN ORAL Constipation 09/24/18 12:15 10/07/18 12:14 Risperidone (RisperDAL) 0.25 mg QHS ORAL 09/24/18 21:00 10/10/18 20:59 09/27/18 20:04 Sodium Chloride 500 ml @ 999 mls/hr Q31M PRN IV SBP<90mmHg 09/24/18 12:15 10/08/18 10:59 Kell Larkin M.D. Oct 01, 2018 14:54
--- NOTE | 2018-10-01 15:30 | Progress Note ---
DATE: 10/01/2018 SUBJECTIVE: This is a 62-year-old male patient with septic shock, anemia, and GI bleeding. He has altered mental status worsened by stress of his medical illness that is why his attending has requested psychiatric consultation. I assessed him in the ICU step-down. He is confused, disorganized, altered mental status, and psychomotor agitation. MENTAL STATUS EXAMINATION: This is a 62-year-old male. Appearance is disheveled. Attitude irritable and agitated. Affect, guarded and restricted. Intellect poor. Mood depressed and anxious. Motor activity, psychomotor agitation. Attention span is poor. Orientation x2. Speech is low volume and slurred. Thought process, disorganized and illogical. Insight and judgment is poor. DIAGNOSIS: Paranoid schizophrenia with acute exacerbation. PLAN: My plan for this patient to treat him with Risperdal 0.25 mg at bedtime. A 20 minutes of behavioral management. Chart was reviewed. Discussed with staff. Seen and assessed at bedside. Virgie Mcdermott M.D. DR: Gerri JOB#: [id number] CC:
--- NOTE | 2018-10-01 15:39 | General Progress Note ---
Assessment/Plan Problem List: (1) UTI (urinary tract infection) ICD Codes: N39.0 - Urinary tract infection, site not specified SNOMED: 92592901 (2) Renal failure ICD Codes: N19 - Unspecified kidney failure SNOMED: 25892762 (3) Anemia ICD Codes: D64.9 - Anemia, unspecified SNOMED: 638678399 (4) Acute respiratory failure ICD Codes: J96.00 - Acute respiratory failure, unspecified whether with hypoxia or hypercapnia SNOMED: 14311627 (5) Pneumonia ICD Codes: J18.9 - Pneumonia, unspecified organism SNOMED: 952071160 (6) Septic shock ICD Codes: A41.9 - Sepsis, unspecified organism; R65.21 - Severe sepsis with septic shock SNOMED: 76949936 (7) ATN (acute tubular necrosis) ICD Codes: N17.0 - Acute kidney failure with tubular necrosis SNOMED: 10697473 Status: unchanged Assessment/Plan vent abx wound care neph f/u gi eval cbc bmp am Subjective Constitutional: Reports: weakness Allergies: Coded Allergies: No Known Allergies (Unverified , 08/14/18) All Systems: reviewed and negative except above Subjective trach vent altered Objective Last 24 Hour Vital Signs Date Time Temp Pulse Resp B/P (MAP) Pulse Ox O2 Delivery O2 Flow Rate FiO2 10/01/18 12:54 84 17 30 10/01/18 12:31 30 10/01/18 12:00 Mechanical Ventilator Mechanical Ventilator 10/01/18 12:00 99.8 81 17 138/81 100 Mechanical Ventilator 30 10/01/18 11:31 80 10/01/18 10:32 85 23 30 10/01/18 08:53 82 12 30 10/01/18 08:00 30 10/01/18 08:00 98.1 89 19 140/88 100 Mechanical Ventilator 30 10/01/18 08:00 Mechanical Ventilator Mechanical Ventilator 10/01/18 07:36 81 10/01/18 06:50 83 13 30 10/01/18 05:29 94 19 30 10/01/18 04:00 Mechanical Ventilator Mechanical Ventilator 10/01/18 04:00 30 10/01/18 04:00 85 10/01/18 04:00 98.8 89 20 149/77 100 Mechanical Ventilator 30 10/01/18 03:11 102 24 30 10/01/18 00:44 101 17 30 10/01/18 00:00 99.3 86 21 143/84 99 Mechanical Ventilator 30 10/01/18 00:00 88 10/01/18 00:00 Mechanical Ventilator Mechanical Ventilator 10/01/18 00:00 30 09/30/18 23:20 99 18 30 09/30/18 20:46 111 24 30 09/30/18 20:00 103 09/30/18 20:00 Mechanical Ventilator Mechanical Ventilator 09/30/18 20:00 30 09/30/18 20:00 98.6 65 19 135/90 93 Mechanical Ventilator 30 09/30/18 18:57 98 24 30 09/30/18 16:55 90 16 30 09/30/18 16:00 96 09/30/18 16:00 98.2 95 20 139/92 95 Mechanical Ventilator 30 09/30/18 16:00 30 09/30/18 16:00 Mechanical Ventilator Mechanical Ventilator Intake and Output 09/30/18 10/01/18 19:00 07:00 Intake Total 261.313 ml Output Total 1060 ml 1110 ml Balance -1060 ml -848.687 ml IV Total 261.313 ml Output Urine Total 850 ml 800 ml Stool Total 100 ml 100 ml Drainage Total 110 ml 210 ml Laboratory Tests 10/01/18 03:35: White Blood Count 13.7H, Red Blood Count 3.05L, Hemoglobin 8.9L, Hematocrit 26.8L, Mean Corpuscular Volume 88, Mean Corpuscular Hemoglobin 29.1, Mean Corpuscular Hemoglobin Concent 33.1, Red Cell Distribution Width 13.1, Platelet Count 714H, Mean Platelet Volume 7.4, Neutrophils (%) (Auto) 79.5H, Lymphocytes (%) (Auto) 8.8L, Monocytes (%) (Auto) 5.5, Eosinophils (%) (Auto) 5.1H, Basophils (%) (Auto) 1.1, Sodium Level 145, Potassium Level 3.3L, Chloride Level 113H, Carbon Dioxide Level 21, Anion Gap 11, Blood Urea Nitrogen 12, Creatinine 1.0, Estimat Glomerular Filtration Rate > 60, Glucose Level 179H, Calcium Level 6.5L, Phosphorus Level 2.6, Magnesium Level 1.9, Total Bilirubin 0.2, Aspartate Amino Transf (AST/SGOT) 18, Alanine Aminotransferase (ALT/SGPT) 9L, Alkaline Phosphatase 78, Total Protein 5.1L, Albumin 1.0L, Globulin 4.1, Albumin/Globulin Ratio 0.2L Height (Feet): 5 Height (Inches): 5.00 Weight (Pounds): 122 General Appearance: lethargic EENT: normal ENT inspection Neck: normal alignment Cardiovascular: normal peripheral pulses, normal rate, regular rhythm Respiratory/Chest: chest wall non-tender, decreased breath sounds Abdomen: normal bowel sounds, non tender, soft Extremities: normal inspection Edema: no edema noted Arm (L), no edema noted Arm (R), no edema noted Leg (L), no edema noted Leg (R), no edema noted Pedal (L), no edema noted Pedal (R), no edema noted Generalized Neurologic: motor weakness Skin: normal pigmentation, warm/dry Jasmeet Reynoso DO Oct 01, 2018 15:39
[2018-10-01 16:00] VITALS: BP 128/81
--- NOTE | 2018-10-01 16:35 | Cardiac Electrophysiology PN ---
Assessment/Plan Assessment/Plan 1. S/P Septic and hemorrhagic shock with Lactic acidosis. On Abx and S/P PRBC 2. Sinus tachycardia in 140s due to sepsis, anemia and dehydration. No fibrillation. EF 75%. 3. Troponin elevation due to renal failure. EF 75%. 4. Respiratory failure on the vent. S/P Tracheostomy 09/22/18 5. Rhabdomyolysis with CPK in thousands contributing to renal failure. 6. Acute renal failure and severe hyperkalemia. FU by Dr. Smalls 7. Dysphagia, Hx of PEG placement but was dislodged. S/P exploratory laparotomy, repair of gastric perforation, evacuation of perisplenic abscess, splenectomy 09/23/[address] Smalls Both drains still draining FU Dr Contreras 8. GI bleed. S/P EGD by Dr. Horton. S/p PRBCs DW RN Subjective Subjective On the Vent via tracheostomy. Still draining from both abdominal drains On TPN and Lipid. Objective Last 24 Hour Vital Signs Date Time Temp Pulse Resp B/P (MAP) Pulse Ox O2 Delivery O2 Flow Rate FiO2 10/01/18 15:07 82 14 30 10/01/18 12:54 84 17 30 10/01/18 12:31 30 10/01/18 12:00 Mechanical Ventilator Mechanical Ventilator 10/01/18 12:00 99.8 81 17 138/81 100 Mechanical Ventilator 30 10/01/18 11:31 80 10/01/18 10:32 85 23 30 10/01/18 08:53 82 12 30 10/01/18 08:00 30 10/01/18 08:00 98.1 89 19 140/88 100 Mechanical Ventilator 30 10/01/18 08:00 Mechanical Ventilator Mechanical Ventilator 10/01/18 07:36 81 10/01/18 06:50 83 13 30 10/01/18 05:29 94 19 30 10/01/18 04:00 Mechanical Ventilator Mechanical Ventilator 10/01/18 04:00 30 10/01/18 04:00 85 10/01/18 04:00 98.8 89 20 149/77 100 Mechanical Ventilator 30 10/01/18 03:11 102 24 30 10/01/18 00:44 101 17 30 10/01/18 00:00 99.3 86 21 143/84 99 Mechanical Ventilator 30 10/01/18 00:00 88 10/01/18 00:00 Mechanical Ventilator Mechanical Ventilator 10/01/18 00:00 30 09/30/18 23:20 99 18 30 09/30/18 20:46 111 24 30 09/30/18 20:00 103 09/30/18 20:00 Mechanical Ventilator Mechanical Ventilator 09/30/18 20:00 30 09/30/18 20:00 98.6 65 19 135/90 93 Mechanical Ventilator 30 09/30/18 18:57 98 24 30 09/30/18 16:55 90 16 30 Intake and Output 09/30/18 10/01/18 19:00 07:00 Intake Total 261.313 ml Output Total 1060 ml 1110 ml Balance -1060 ml -848.687 ml IV Total 261.313 ml Output Urine Total 850 ml 800 ml Stool Total 100 ml 100 ml Drainage Total 110 ml 210 ml Laboratory Tests Test 10/01/18 03:35 White Blood Count 13.7 K/UL (4.8-10.8) H Red Blood Count 3.05 M/UL (4.70-6.10) L Hemoglobin 8.9 G/DL (14.2-18.0) L Hematocrit 26.8 % (42.0-52.0) L Mean Corpuscular Volume 88 FL (80-99) Mean Corpuscular Hemoglobin 29.1 PG (27.0-31.0) Mean Corpuscular Hemoglobin Concent 33.1 G/DL (32.0-36.0) Red Cell Distribution Width 13.1 % (11.6-14.8) Platelet Count 714 K/UL (150-450) H Mean Platelet Volume 7.4 FL (6.5-10.1) Neutrophils (%) (Auto) 79.5 % (45.0-75.0) H Lymphocytes (%) (Auto) 8.8 % (20.0-45.0) L Monocytes (%) (Auto) 5.5 % (1.0-10.0) Eosinophils (%) (Auto) 5.1 % (0.0-3.0) H Basophils (%) (Auto) 1.1 % (0.0-2.0) Sodium Level 145 MMOL/L (136-145) Potassium Level 3.3 MMOL/L (3.5-5.1) L Chloride Level 113 MMOL/L (98-107) H Carbon Dioxide Level 21 MMOL/L (21-32) Anion Gap 11 mmol/L (5-15) Blood Urea Nitrogen 12 mg/dL (7-18) Creatinine 1.0 MG/DL (0.55-1.30) Estimat Glomerular Filtration Rate > 60 mL/min (>60) Glucose Level 179 MG/DL (74-106) H Calcium Level 6.5 MG/DL (8.5-10.1) L Phosphorus Level 2.6 MG/DL (2.5-4.9) Magnesium Level 1.9 MG/DL (1.8-2.4) Total Bilirubin 0.2 MG/DL (0.2-1.0) Aspartate Amino Transf (AST/SGOT) 18 U/L (15-37) Alanine Aminotransferase (ALT/SGPT) 9 U/L (12-78) L Alkaline Phosphatase 78 U/L (46-116) Total Protein 5.1 G/DL (6.4-8.2) L Albumin 1.0 G/DL (3.4-5.0) L Globulin 4.1 g/dL Albumin/Globulin Ratio 0.2 (1.0-2.7) L Microbiology Date/Time Source Procedure Growth Status 09/28/18 19:45 Blood Blood Culture - Preliminary NO GROWTH AFTER 48 HOURS Resulted 09/28/18 19:30 Blood Blood Culture - Preliminary NO GROWTH AFTER 48 HOURS Resulted 09/29/18 14:30 Body Fluid Abscess Gram Stain - Final Resulted 09/29/18 14:30 Body Fluid Culture - Preliminary YEAST Resulted 09/28/18 18:45 Urine,Clean Catch Urine Culture - Final Nicky Tropicalis Complete Objective HEENT: S/P tracheostomy. No JVD LUNGS: Coarse rhonchi. CARDIOVASCULAR: Regular S1 and S2. ABDOMEN: Post op covered with dressing and 2 drains EXTREMITIES: No pitting edema. Jasbir Madsen MD Oct 01, 2018 16:34
--- NOTE | 2018-10-01 17:32 | Nephrology Progress Note ---
Assessment/Plan Problem List: (1) ATN (acute tubular necrosis) Assessment: Cr rising post op but lowering (2) Septic shock (3) Lactic acid acidosis (4) Metabolic acidosis (5) Hyperkalemia (6) G tube feedings (7) Acute respiratory failure Assessment post op 09/22/18: Trach, Splenectomy, Perf.... over all improved: cr rising again presented with Shock , likely septic Acute renal failure resolved Acute metabolic acidosis resolved Hyperkalemia PEG Recent Pneumonia Plan plan: K and Phos supplements on tpn now trached 09/22 post laparatomy 09/22 off pressors pulmonary support Fluid challenge as needed Silva K and Phos and Mag supplement as needed antibiotics monitor renal parameters and ABG poor prognosis Subjective ROS Limited/Unobtainable: Yes Objective Objective Last 24 Hour Vital Signs Date Time Temp Pulse Resp B/P (MAP) Pulse Ox O2 Delivery O2 Flow Rate FiO2 10/01/18 15:07 82 14 30 10/01/18 12:54 84 17 30 10/01/18 12:31 30 10/01/18 12:00 Mechanical Ventilator Mechanical Ventilator 10/01/18 12:00 99.8 81 17 138/81 100 Mechanical Ventilator 30 10/01/18 11:31 80 10/01/18 10:32 85 23 30 10/01/18 08:53 82 12 30 10/01/18 08:00 30 10/01/18 08:00 98.1 89 19 140/88 100 Mechanical Ventilator 30 10/01/18 08:00 Mechanical Ventilator Mechanical Ventilator 10/01/18 07:36 81 10/01/18 06:50 83 13 30 10/01/18 05:29 94 19 30 10/01/18 04:00 Mechanical Ventilator Mechanical Ventilator 10/01/18 04:00 30 10/01/18 04:00 85 10/01/18 04:00 98.8 89 20 149/77 100 Mechanical Ventilator 30 10/01/18 03:11 102 24 30 10/01/18 00:44 101 17 30 10/01/18 00:00 99.3 86 21 143/84 99 Mechanical Ventilator 30 10/01/18 00:00 88 10/01/18 00:00 Mechanical Ventilator Mechanical Ventilator 10/01/18 00:00 30 09/30/18 23:20 99 18 30 2/20/19 20:46 111 24 30 09/30/18 20:00 103 09/30/18 20:00 Mechanical Ventilator Mechanical Ventilator 09/30/18 20:00 30 09/30/18 20:00 98.6 65 19 135/90 93 Mechanical Ventilator 30 09/30/18 18:57 98 24 30 Intake and Output 09/30/18 10/01/18 19:00 07:00 Intake Total 261.313 ml Output Total 1060 ml 1110 ml Balance -1060 ml -848.687 ml IV Total 261.313 ml Output Urine Total 850 ml 800 ml Stool Total 100 ml 100 ml Drainage Total 110 ml 210 ml Laboratory Tests 10/01/18 03:35: White Blood Count 13.7H, Red Blood Count 3.05L, Hemoglobin 8.9L, Hematocrit 26.8L, Mean Corpuscular Volume 88, Mean Corpuscular Hemoglobin 29.1, Mean Corpuscular Hemoglobin Concent 33.1, Red Cell Distribution Width 13.1, Platelet Count 714H, Mean Platelet Volume 7.4, Neutrophils (%) (Auto) 79.5H, Lymphocytes (%) (Auto) 8.8L, Monocytes (%) (Auto) 5.5, Eosinophils (%) (Auto) 5.1H, Basophils (%) (Auto) 1.1, Sodium Level 145, Potassium Level 3.3L, Chloride Level 113H, Carbon Dioxide Level 21, Anion Gap 11, Blood Urea Nitrogen 12, Creatinine 1.0, Estimat Glomerular Filtration Rate > 60, Glucose Level 179H, Calcium Level 6.5L, Phosphorus Level 2.6, Magnesium Level 1.9, Total Bilirubin 0.2, Aspartate Amino Transf (AST/SGOT) 18, Alanine Aminotransferase (ALT/SGPT) 9L, Alkaline Phosphatase 78, Total Protein 5.1L, Albumin 1.0L, Globulin 4.1, Albumin/Globulin Ratio 0.2L Height (Feet): 5 Height (Inches): 5.00 Weight (Pounds): 122 General Appearance: no apparent distress Cardiovascular: normal rate Respiratory/Chest: decreased breath sounds Abdomen: distended Objective no other changes Josesito Smalls MD Oct 01, 2018 17:32
[2018-10-01] MEDS: Micafungin 100 MG in NS 110 ML IVPB SCH (17:33)
[2018-10-01 20:00] VITALS: BP 135/84
[2018-10-01] MEDS: Dyna-Hex 2% Top Sol 2oz TOPIC SCH (20:55)
[2018-10-02] VITALS: BP 132/92
[2018-10-02] MEDS: NovoLOG Insulin Flexpen SUBQ SCH ×4 (00:24→18:23)
[2018-10-02 04:00] VITALS: BP 130/61
[2018-10-02] MEDS: Piperacillin/Tazobactam 3.375 GM in NS 110 ML IVPB SCH ×3 (05:00→21:31)
[2018-10-02] MEDS: TPN IV SCH (05:06)
[2018-10-02] MEDS: FAT EMULSION 20% IV SCH (05:06)
[2018-10-02 06:18] LABS: BASOPHILS % (AUTO) 1.6 % (0.0-2.0); EOSINOPHILS % (AUTO) 5.9 % (0.0-3.0); HEMATOCRIT 25.5 % (42.0-52.0); HEMOGLOBIN 8.4 G/DL (14.2-18.0); LYMPHOCYTES % (AUTO) 6.9 % (20.0-45.0); MEAN CORPUSCULAR VOLUME 89 FL (80-99); MONOCYTES % (AUTO) 6.4 % (1.0-10.0); NEUTROPHILS % (AUTO) 79.2 % (45.0-75.0); PLATELET COUNT 770 K/UL (150-450); RED BLOOD COUNT 2.86 M/UL (4.70-6.10); RED CELL DISTRIBUTION WIDTH 13.2 % (11.6-14.8); WHITE BLOOD COUNT 13.7 K/UL (4.8-10.8)
[2018-10-02 06:40] LABS: ANION GAP 7 mmol/L (5-15); CALCIUM 6.7 MG/DL (8.5-10.1); CARBON DIOXIDE 23 MMOL/L (21-32); CHLORIDE 114 MMOL/L (98-107); CREATININE 0.9 MG/DL (0.55-1.30); POTASSIUM 4.4 MMOL/L (3.5-5.1); SODIUM 144 MMOL/L (136-145)
[2018-10-02 06:57] LABS: ALANINE AMINOTRANSFERASE 8 U/L (12-78); ALKALINE PHOSPHATASE 76 U/L (46-116); ASPARTATE AMINO TRANSFERASE 16 U/L (15-37); BILIRUBIN,DIRECT < 0.1 MG/DL (0.0-0.3); BILIRUBIN,TOTAL 0.2 MG/DL (0.2-1.0); PHOSPHORUS 2.2 MG/DL (2.5-4.9)
[2018-10-02 07:16] LABS: BLOOD UREA NITROGEN 12 mg/dL (7-18)
[2018-10-02 08:00] VITALS: BP 138/91
[2018-10-02] MEDS: Heparin 5000 units/ml inj SUBQ SCH ×2 (09:00→21:00)
[2018-10-02] MEDS: Pantoprazole Inj IVP SCH ×2 (09:34→21:30)
--- NOTE | 2018-10-02 11:48 | GI Progress Note ---
Assessment/Plan Problems: (1) G tube feedings ICD Codes: Z93.1 - Gastrostomy status SNOMED: 733289764, 697242279 (2) Protein-calorie malnutrition, severe ICD Codes: E43 - Unspecified severe protein-calorie malnutrition SNOMED: 359162589 (3) Anemia ICD Codes: D64.9 - Anemia, unspecified SNOMED: 101602192 (4) GI bleed ICD Codes: K92.2 - Gastrointestinal hemorrhage, unspecified SNOMED: 65519978 Status: unchanged Status Narrative Discussed with Dr. Horton. Assessment/Plan PREOPERATIVE DIAGNOSES: 1. Malpositioned feeding tube with leak and peritonitis/perforation. 2. Respiratory insufficiency requiring prolonged ventilatory support. POSTOPERATIVE DIAGNOSES: 1. Large omental perigastric hematoma. 2. Malpositioned PEG tube with gastric perforation. 3. Large perisplenic abscess. 4. Abdominal peritonitis. 5. Respiratory insufficiency requiring prolonged ventilatory support. OPERATION PERFORMED: 1. Exploratory laparotomy. 2. Repair of gastric perforation. 3. Evacuation of abdominal omental / lesser sac hematoma. 4. Evacuation of perisplenic hematoma/abscess. 5. Omentectomy. 6. Splenectomy. 7. Abdominal washout. 8. Tracheostomy. RECOMMENDATIONS: new onset bleed, stat CT ordered fu surgical recommendations TPN prn transfusion ppi abx fu labs The patient was seen and examined at bedside and all new and available data was reviewed in the patients chart. I agree with the above findings, impression and plan. (Patient seen earlier today. Signature stamp does not reflect patient encounter time.). - Arthur Horton MD Subjective Subjective limited Objective Last 24 Hour Vital Signs Date Time Temp Pulse Resp B/P (MAP) Pulse Ox O2 Delivery O2 Flow Rate FiO2 10/02/18 11:02 96 18 30 10/02/18 08:00 30 10/02/18 08:00 Mechanical Ventilator Mechanical Ventilator 10/02/18 08:00 98.1 86 20 138/91 100 Mechanical Ventilator 30 10/02/18 08:00 96 10/02/18 04:43 93 15 30 10/02/18 04:00 30 10/02/18 04:00 86 10/02/18 04:00 Mechanical Ventilator Mechanical Ventilator 10/02/18 04:00 98.1 90 24 130/61 96 Mechanical Ventilator 30 10/02/18 03:10 89 18 30 2/22/19 01:29 92 20 30 10/02/18 00:00 30 10/02/18 00:00 93 10/02/18 00:00 Mechanical Ventilator Mechanical Ventilator 10/02/18 00:00 99.2 97 21 132/92 94 Mechanical Ventilator 30 10/01/18 22:58 108 18 30 10/01/18 21:05 114 27 30 10/01/18 20:00 Mechanical Ventilator Mechanical Ventilator 10/01/18 20:00 99.0 92 17 135/84 99 Mechanical Ventilator 30 10/01/18 20:00 88 10/01/18 20:00 30 10/01/18 19:20 104 20 30 10/01/18 17:05 97 17 30 10/01/18 16:00 98.5 96 21 128/81 99 Mechanical Ventilator 30 10/01/18 16:00 30 10/01/18 16:00 Mechanical Ventilator Mechanical Ventilator 10/01/18 15:27 87 10/01/18 15:07 82 14 30 10/01/18 12:54 84 17 30 10/01/18 12:31 30 10/01/18 12:00 Mechanical Ventilator Mechanical Ventilator 10/01/18 12:00 99.8 81 17 138/81 100 Mechanical Ventilator 30 Intake and Output 10/01/18 10/02/18 19:00 07:00 Intake Total 1198.25 ml 349.0 ml Output Total 705 ml Balance 493.25 ml 349.0 ml IV Total 1198.25 ml 349.0 ml Output Urine Total 625 ml Drainage Total 80 ml Laboratory Tests Test 10/02/18 03:15 White Blood Count 13.7 K/UL (4.8-10.8) H Red Blood Count 2.86 M/UL (4.70-6.10) L Hemoglobin 8.4 G/DL (14.2-18.0) L Hematocrit 25.5 % (42.0-52.0) L Mean Corpuscular Volume 89 FL (80-99) Mean Corpuscular Hemoglobin 29.5 PG (27.0-31.0) Mean Corpuscular Hemoglobin Concent 33.1 G/DL (32.0-36.0) Red Cell Distribution Width 13.2 % (11.6-14.8) Platelet Count 770 K/UL (150-450) H Mean Platelet Volume 7.3 FL (6.5-10.1) Neutrophils (%) (Auto) 79.2 % (45.0-75.0) H Lymphocytes (%) (Auto) 6.9 % (20.0-45.0) L Monocytes (%) (Auto) 6.4 % (1.0-10.0) Eosinophils (%) (Auto) 5.9 % (0.0-3.0) H Basophils (%) (Auto) 1.6 % (0.0-2.0) Sodium Level 144 MMOL/L (136-145) Potassium Level 4.4 MMOL/L (3.5-5.1) Chloride Level 114 MMOL/L (98-107) H Carbon Dioxide Level 23 MMOL/L (21-32) Anion Gap 7 mmol/L (5-15) Blood Urea Nitrogen 12 mg/dL (7-18) Creatinine 0.9 MG/DL (0.55-1.30) Estimat Glomerular Filtration Rate > 60 mL/min (>60) Glucose Level 162 MG/DL (74-106) H Calcium Level 6.7 MG/DL (8.5-10.1) L Phosphorus Level 2.2 MG/DL (2.5-4.9) L Magnesium Level 1.6 MG/DL (1.8-2.4) L Total Bilirubin 0.2 MG/DL (0.2-1.0) Direct Bilirubin < 0.1 MG/DL (0.0-0.3) Aspartate Amino Transf (AST/SGOT) 16 U/L (15-37) Alanine Aminotransferase (ALT/SGPT) 8 U/L (12-78) L Alkaline Phosphatase 76 U/L (46-116) Total Protein 5.1 G/DL (6.4-8.2) L Albumin 1.0 G/DL (3.4-5.0) L Height (Feet): 5 Height (Inches): 5.00 Weight (Pounds): 160 General Appearance: WD/WN, no apparent distress, alert Cardiovascular: normal rate Respiratory/Chest: normal breath sounds, no respiratory distress Abdominal Exam: normal bowel sounds, non tender, soft, incision site - new onset of bleed Extremities: normal range of motion, non-tender Becki Holt [employer] Oct 02, 2018 11:47
--- NOTE | 2018-10-02 11:54 | Pulmonolgy Critical Care Note ---
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 Discussed with: nurses, consultants, 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 photography - Objective Last 24 Hour Vital Signs Date Time Temp Pulse Resp B/P (MAP) Pulse Ox O2 Delivery O2 Flow Rate FiO2 10/02/18 11:02 96 18 30 10/02/18 08:00 30 10/02/18 08:00 Mechanical Ventilator Mechanical Ventilator 10/02/18 08:00 98.1 86 20 138/91 100 Mechanical Ventilator 30 10/02/18 08:00 96 10/02/18 04:43 93 15 30 10/02/18 04:00 30 10/02/18 04:00 86 10/02/18 04:00 Mechanical Ventilator Mechanical Ventilator 10/02/18 04:00 98.1 90 24 130/61 96 Mechanical Ventilator 30 10/02/18 03:10 89 18 30 10/02/18 01:29 92 20 30 10/02/18 00:00 30 10/02/18 00:00 93 10/02/18 00:00 Mechanical Ventilator Mechanical Ventilator 10/02/18 00:00 99.2 97 21 132/92 94 Mechanical Ventilator 30 10/01/18 22:58 108 18 30 10/01/18 21:05 114 27 30 10/01/18 20:00 Mechanical Ventilator Mechanical Ventilator 10/01/18 20:00 99.0 92 17 135/84 99 Mechanical Ventilator 30 10/01/18 20:00 88 10/01/18 20:00 30 10/01/18 19:20 104 20 30 10/01/18 17:05 97 17 30 10/01/18 16:00 98.5 96 21 128/81 99 Mechanical Ventilator 30 10/01/18 16:00 30 10/01/18 16:00 Mechanical Ventilator Mechanical Ventilator 10/01/18 15:27 87 10/01/18 15:07 82 14 30 10/01/18 12:54 84 17 30 10/01/18 12:31 30 10/01/18 12:00 Mechanical Ventilator Mechanical Ventilator 10/01/18 12:00 99.8 81 17 138/81 100 Mechanical Ventilator 30 Status: awake Condition: grave HEENT: atraumatic Heart: HR/BP stable, HR/BP unstable Abdomen: soft, non-tender Extremities: no C/C/E Micro: Microbiology Date/Time Source Procedure Growth Status 09/29/18 14:30 Body Fluid Abscess Gram Stain - Final Resulted 09/29/18 14:30 Body Fluid Culture - Preliminary YEAST Resulted Accucheck: 173 Critical Care - Subjective ROS Limited/Unobtainable: No Condition: critical EKG Rhythm: Sinus Rhythm FI02: 30 Vent Support Breath Rate: 12 Vent Support Mode: AC Vent Tidal Volume: 500 Sputum Amount: Moderate PEEP: 0.0 PIP: 16 Tube Feeding Amount: 0 I&O: Intake and Output 10/01/18 10/02/18 19:00 07:00 Intake Total 1198.25 ml 349.0 ml Output Total 705 ml Balance 493.25 ml 349.0 ml IV Total 1198.25 ml 349.0 ml Output Urine Total 625 ml Drainage Total 80 ml CXR: no change Labs: Laboratory Tests Test 10/02/18 03:15 White Blood Count 13.7 K/UL (4.8-10.8) H Red Blood Count 2.86 M/UL (4.70-6.10) L Hemoglobin 8.4 G/DL (14.2-18.0) L Hematocrit 25.5 % (42.0-52.0) L Mean Corpuscular Volume 89 FL (80-99) Mean Corpuscular Hemoglobin 29.5 PG (27.0-31.0) Mean Corpuscular Hemoglobin Concent 33.1 G/DL (32.0-36.0) Red Cell Distribution Width 13.2 % (11.6-14.8) Platelet Count 770 K/UL (150-450) H Mean Platelet Volume 7.3 FL (6.5-10.1) Neutrophils (%) (Auto) 79.2 % (45.0-75.0) H Lymphocytes (%) (Auto) 6.9 % (20.0-45.0) L Monocytes (%) (Auto) 6.4 % (1.0-10.0) Eosinophils (%) (Auto) 5.9 % (0.0-3.0) H Basophils (%) (Auto) 1.6 % (0.0-2.0) Sodium Level 144 MMOL/L (136-145) Potassium Level 4.4 MMOL/L (3.5-5.1) Chloride Level 114 MMOL/L (98-107) H Carbon Dioxide Level 23 MMOL/L (21-32) Anion Gap 7 mmol/L (5-15) Blood Urea Nitrogen 12 mg/dL (7-18) Creatinine 0.9 MG/DL (0.55-1.30) Estimat Glomerular Filtration Rate > 60 mL/min (>60) Glucose Level 162 MG/DL (74-106) H Calcium Level 6.7 MG/DL (8.5-10.1) L Phosphorus Level 2.2 MG/DL (2.5-4.9) L Magnesium Level 1.6 MG/DL (1.8-2.4) L Total Bilirubin 0.2 MG/DL (0.2-1.0) Direct Bilirubin < 0.1 MG/DL (0.0-0.3) Aspartate Amino Transf (AST/SGOT) 16 U/L (15-37) Alanine Aminotransferase (ALT/SGPT) 8 U/L (12-78) L Alkaline Phosphatase 76 U/L (46-116) Total Protein 5.1 G/DL (6.4-8.2) L Albumin 1.0 G/DL (3.4-5.0) L Po Li MD Oct 02, 2018 11:54
[2018-10-02 12:00] VITALS: BP 140/88
[2018-10-02] MEDS ORDERED: Sodium Phosphate 15 MM in NS 275 ML IVPB ONE (12:00)
--- NOTE | 2018-10-02 14:50 | General Progress Note ---
Assessment/Plan Problem List: (1) UTI (urinary tract infection) ICD Codes: N39.0 - Urinary tract infection, site not specified SNOMED: 94918845 (2) Renal failure ICD Codes: N19 - Unspecified kidney failure SNOMED: 34341251 (3) Anemia ICD Codes: D64.9 - Anemia, unspecified SNOMED: 445724012 (4) Acute respiratory failure ICD Codes: J96.00 - Acute respiratory failure, unspecified whether with hypoxia or hypercapnia SNOMED: 78414931 (5) Pneumonia ICD Codes: J18.9 - Pneumonia, unspecified organism SNOMED: 565881374 (6) Septic shock ICD Codes: A41.9 - Sepsis, unspecified organism; R65.21 - Severe sepsis with septic shock SNOMED: 92105066 (7) ATN (acute tubular necrosis) ICD Codes: N17.0 - Acute kidney failure with tubular necrosis SNOMED: 06275113 Status: unchanged Assessment/Plan vent abx wound care neph f/u gi eval cbc bmp am Subjective Constitutional: Reports: weakness Allergies: Coded Allergies: No Known Allergies (Unverified , 08/14/18) All Systems: reviewed and negative except above Subjective trach vent altered Objective Last 24 Hour Vital Signs Date Time Temp Pulse Resp B/P (MAP) Pulse Ox O2 Delivery O2 Flow Rate FiO2 10/02/18 12:52 101 20 30 10/02/18 11:02 96 18 30 10/02/18 08:27 80 14 30 10/02/18 08:00 30 10/02/18 08:00 Mechanical Ventilator Mechanical Ventilator 10/02/18 08:00 98.1 86 20 138/91 100 Mechanical Ventilator 30 10/02/18 08:00 96 10/02/18 07:25 91 16 30 10/02/18 04:43 93 15 30 10/02/18 04:00 30 10/02/18 04:00 86 10/02/18 04:00 Mechanical Ventilator Mechanical Ventilator 10/02/18 04:00 98.1 90 24 130/61 96 Mechanical Ventilator 30 10/02/18 03:10 89 18 30 10/02/18 01:29 92 20 30 10/02/18 00:00 30 10/02/18 00:00 93 10/02/18 00:00 Mechanical Ventilator Mechanical Ventilator 2/22/19 00:00 99.2 97 21 132/92 94 Mechanical Ventilator 30 10/01/18 22:58 108 18 30 10/01/18 21:05 114 27 30 10/01/18 20:00 Mechanical Ventilator Mechanical Ventilator 10/01/18 20:00 99.0 92 17 135/84 99 Mechanical Ventilator 30 10/01/18 20:00 88 10/01/18 20:00 30 10/01/18 19:20 104 20 30 10/01/18 17:05 97 17 30 10/01/18 16:00 98.5 96 21 128/81 99 Mechanical Ventilator 30 10/01/18 16:00 30 10/01/18 16:00 Mechanical Ventilator Mechanical Ventilator 10/01/18 15:27 87 10/01/18 15:07 82 14 30 Intake and Output 10/01/18 10/02/18 19:00 07:00 Intake Total 1198.25 ml 349.0 ml Output Total 705 ml Balance 493.25 ml 349.0 ml IV Total 1198.25 ml 349.0 ml Output Urine Total 625 ml Drainage Total 80 ml Laboratory Tests 10/02/18 03:15: White Blood Count 13.7H, Red Blood Count 2.86L, Hemoglobin 8.4L, Hematocrit 25.5L, Mean Corpuscular Volume 89, Mean Corpuscular Hemoglobin 29.5, Mean Corpuscular Hemoglobin Concent 33.1, Red Cell Distribution Width 13.2, Platelet Count 770H, Mean Platelet Volume 7.3, Neutrophils (%) (Auto) 79.2H, Lymphocytes (%) (Auto) 6.9L, Monocytes (%) (Auto) 6.4, Eosinophils (%) (Auto) 5.9H, Basophils (%) (Auto) 1.6, Sodium Level 144, Potassium Level 4.4, Chloride Level 114H, Carbon Dioxide Level 23, Anion Gap 7, Blood Urea Nitrogen 12, Creatinine 0.9, Estimat Glomerular Filtration Rate > 60, Glucose Level 162H, Calcium Level 6.7L, Phosphorus Level 2.2L, Magnesium Level 1.6L, Total Bilirubin 0.2, Direct Bilirubin < 0.1, Aspartate Amino Transf (AST/SGOT) 16, Alanine Aminotransferase (ALT/SGPT) 8L, Alkaline Phosphatase 76, Total Protein 5.1L, Albumin 1.0L Height (Feet): 5 Height (Inches): 5.00 Weight (Pounds): 160 General Appearance: lethargic EENT: normal ENT inspection Neck: normal alignment Cardiovascular: normal peripheral pulses, normal rate, regular rhythm Respiratory/Chest: chest wall non-tender, lungs clear, normal breath sounds Abdomen: normal bowel sounds, non tender, soft Extremities: normal inspection Edema: no edema noted Arm (L), no edema noted Arm (R), no edema noted Leg (L), no edema noted Leg (R), no edema noted Pedal (L), no edema noted Pedal (R), no edema noted Generalized Neurologic: motor weakness Skin: normal pigmentation, warm/dry Jasmeet Reynoso DO Oct 02, 2018 14:50
--- NOTE | 2018-10-02 15:45 | Progress Note ---
DATE: 10/02/2018 SUBJECTIVE: The patient is a 62-year-old male patient with septic shock, but he is confused and disorganized. He has altered mental status and decline of cognition below his baseline. That is why, his attending physician has requested daily psychiatric consultation at this time. He has some psychomotor agitation. He is very confused and disorganized. He was seen and assessed in ICU step-down. MENTAL STATUS EXAMINATION: A 62-year-old male. Appearance is disheveled. Attitude, irritable and agitated. Affect, guarded and restricted. Intellect poor. Mood, depressed and anxious. Motor activity, psychomotor agitation. Attention span is poor. Orientation x2. Speech is low volume and slurred. Thought process, disorganized and illogical. Insight and judgment is poor. DIAGNOSIS: Major depressive disorder, mild, recurrent with psychotic features, rule out paranoid schizophrenia. PLAN: Treat him with Risperdal 0.25 mg nightly. Provided him with 20 minutes of behavioral modification. Chart was reviewed and discussed with staff. Seen and assessed in ICU step-down. Virgie Mcdermott M.D. DR: Reggie JOB#: [id number] CC:
--- NOTE | 2018-10-02 15:54 | Nephrology Progress Note ---
Assessment/Plan Problem List: (1) ATN (acute tubular necrosis) Assessment: Cr rising post op but lowering (2) Septic shock (3) Lactic acid acidosis (4) Metabolic acidosis (5) Hyperkalemia (6) G tube feedings (7) Acute respiratory failure Assessment post op 09/22/18: Trach, Splenectomy, Perf.... over all improved: cr rising again presented with Shock , likely septic Acute renal failure resolved Acute metabolic acidosis resolved Hyperkalemia PEG Recent Pneumonia Plan plan: K and Phos supplements on tpn now trached 09/22 post laparatomy 09/22 off pressors pulmonary support Fluid challenge as needed Silva K and Phos and Mag supplement as needed antibiotics monitor renal parameters and ABG poor prognosis Subjective ROS Limited/Unobtainable: Yes Objective Objective Last 24 Hour Vital Signs Date Time Temp Pulse Resp B/P (MAP) Pulse Ox O2 Delivery O2 Flow Rate FiO2 10/02/18 15:26 102 24 30 10/02/18 12:52 101 20 30 10/02/18 11:02 96 18 30 10/02/18 08:27 80 14 30 10/02/18 08:00 30 10/02/18 08:00 Mechanical Ventilator Mechanical Ventilator 10/02/18 08:00 98.1 86 20 138/91 100 Mechanical Ventilator 30 10/02/18 08:00 96 10/02/18 07:25 91 16 30 10/02/18 04:43 93 15 30 10/02/18 04:00 30 10/02/18 04:00 86 10/02/18 04:00 Mechanical Ventilator Mechanical Ventilator 10/02/18 04:00 98.1 90 24 130/61 96 Mechanical Ventilator 30 10/02/18 03:10 89 18 30 10/02/18 01:29 92 20 30 10/02/18 00:00 30 10/02/18 00:00 93 10/02/18 00:00 Mechanical Ventilator Mechanical Ventilator 10/02/18 00:00 99.2 97 21 132/92 94 Mechanical Ventilator 30 10/01/18 22:58 108 18 30 10/01/18 21:05 114 27 30 10/01/18 20:00 Mechanical Ventilator Mechanical Ventilator 10/01/18 20:00 99.0 92 17 135/84 99 Mechanical Ventilator 30 10/01/18 20:00 88 10/01/18 20:00 30 10/01/18 19:20 104 20 30 10/01/18 17:05 97 17 30 10/01/18 16:00 98.5 96 21 128/81 99 Mechanical Ventilator 30 10/01/18 16:00 30 10/01/18 16:00 Mechanical Ventilator Mechanical Ventilator Intake and Output 10/01/18 10/02/18 19:00 07:00 Intake Total 1198.25 ml 349.0 ml Output Total 705 ml Balance 493.25 ml 349.0 ml IV Total 1198.25 ml 349.0 ml Output Urine Total 625 ml Drainage Total 80 ml Laboratory Tests 10/02/18 03:15: White Blood Count 13.7H, Red Blood Count 2.86L, Hemoglobin 8.4L, Hematocrit 25.5L, Mean Corpuscular Volume 89, Mean Corpuscular Hemoglobin 29.5, Mean Corpuscular Hemoglobin Concent 33.1, Red Cell Distribution Width 13.2, Platelet Count 770H, Mean Platelet Volume 7.3, Neutrophils (%) (Auto) 79.2H, Lymphocytes (%) (Auto) 6.9L, Monocytes (%) (Auto) 6.4, Eosinophils (%) (Auto) 5.9H, Basophils (%) (Auto) 1.6, Sodium Level 144, Potassium Level 4.4, Chloride Level 114H, Carbon Dioxide Level 23, Anion Gap 7, Blood Urea Nitrogen 12, Creatinine 0.9, Estimat Glomerular Filtration Rate > 60, Glucose Level 162H, Calcium Level 6.7L, Phosphorus Level 2.2L, Magnesium Level 1.6L, Total Bilirubin 0.2, Direct Bilirubin < 0.1, Aspartate Amino Transf (AST/SGOT) 16, Alanine Aminotransferase (ALT/SGPT) 8L, Alkaline Phosphatase 76, Total Protein 5.1L, Albumin 1.0L Height (Feet): 5 Height (Inches): 5.00 Weight (Pounds): 160 EENT: other - trach Cardiovascular: tachycardia Respiratory/Chest: decreased breath sounds Abdomen: soft Objective no other changes Josesito Smalls MD Oct 02, 2018 15:54
[2018-10-02 16:00] VITALS: BP 151/93
--- NOTE | 2018-10-02 16:33 | Diagnostic Imaging Report ---
Indication: Abdominal pain Technique: Continuous helical transaxial imaging of the abdomen and pelvis was obtained from the lung bases to the pubic symphysis during intravenous contrast administration. Coronal 2-D reformats were also obtained. Study obtained in a Siemens sensation [address] Automatic Exposure Control was utilized. Total Dose length Product (DLP): 694.[address] Dose Index Volume (CTDIvol): 11.86 mGy Comparison: 09/21/2018 Findings: Posterior basal atelectasis and bilateral pleural effusions again demonstrated not significantly changed. Interval abdominal surgery has been done. There is a scar in the midline anterior abdomen. There is a ELISABET drain present with the tip of the catheter and a left subdiaphragmatic region. There is severe abnormal wall thickening of the stomach again demonstrated. There is a what appears to be some intramural gas within the wall the stomach suspected. This was seen to some extent on the prior occasion as well in the anterior wall the stomach and may be associated with prior gastrostomy placement. The graft ostomy is no longer seen. There are abnormal enhancing mildly distended loops of colon and small bowel throughout the abdomen. Most of the small bowel loops are fluid-filled. There is a small amount of ascites. The gallbladder is noted. 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 There is a second drain in the right lower quadrant. Both kidneys enhance normally. There is no hydronephrosis. The liver is unremarkable. The pancreas is unremarkable. There is a rectal tube present. Anasarca noted. Silva catheter appears to be in good position. Thickening of the bladder wall is again noted. IMPRESSION: Interval exploratory laparotomy, status post splenectomy, status post removal of gastrostomy tube with 2 abdominal drains noted. Abnormal appearance of the stomach with marked wall thickening and pneumatosis. Abnormal appearance of small bowel and large bowel showing wall thickening and enhancement may be related to enteritis and/or colitis. Trace ascites Bilateral pleural effusions and posterior basal atelectasis Anasarca Rectal tube and Silva catheter in good position. The CT scanner at [facility] is accredited by the [employer] and the scans are performed using dose optimization techniques as appropriate to a performed exam including Automatic Exposure control.
--- NOTE | 2018-10-02 18:18 | Infectious Diseases Prog Note ---
Assessment/Plan Assessment/Plan 62 yo male with PMHx of Quadriplegia with G-tube, HTN, DM and Schizophenia who was sent to the ED fromhis longterm for AMS. Displaced GT with perforation c/w peritonitis and hematoma/abscess formation -10/02 CT abd/p: Interval exploratory laparotomy, status post splenectomy, status post removal of gastrostomy tube with 2 abdominal drains noted. Abnormal appearance of the stomach with marked wall thickening and pneumatosis. Abnormal appearance of small bowel and large bowel showing wall thickening and enhancement may be related to enteritis and/or colitis. Trace ascites -09/22 SP Exploratory laparotomy. Repair of gastric perforation. Evacuation of abdominal omental / lesser sac hematoma. Evacuation of perisplenic hematoma/ abscess. Omentectomy. Splenectomy. Abdominal washout. Tracheostomy. -09/21 CT abd/p: The gastrostomy tube appears to be partially intraluminal and partially communicate with a large intramural collection involving mostly the inferior posterior wall of the stomach. There is some anterior wall pneumatosis. Contrast within the collection most likely represents instilled enteric contrast, but could also represent extravasated vascular contrast. There is evidence of rupture of this collection into the peritoneal space, with extravasated contrast in the left upper quadrant. There is anterior gastric wall intramural pneumatosis as well as a small amount of free extraluminal gas. Moderate ascites. Enhancement of much of the peritoneum raises concern for peritonitis. There may also be loculated intraperitoneal collections which could represent abscesses, predominantly adjacent to the tip of the right hepatic lobe, subcapsular in the spleen, and within the left upper quadrant. Thick-walled sigmoid colon, transverse colon and equivocally the proximal jejunum. Likely reactive related to the above, but could also indicate enteritis /colitis changes Septic shock 2ry to above, SP Leukocytosis, recurrent worsened-after procedure; improving -09/29 L ELISABET drain (+purulebnt fluid) cx : yeast so far -09/28 u/a neg, ucx NTD Bcx NTD CXR: Over one day, interim development of bilateral supraclavicular subcutaneous emphysema and pneumomediastinum, etiology not demonstrated. Persistent low lung volumes with basilar atelectatic changes and left-sided pleural effusion -09/20 ucx NTD; u/a neg -09/19 CXR: Bilateral pleural effusions and bibasilar atelectasis/airspace disease are stable. Low grade fever; SP Diarrhea- -09/27 Cdiff neg GIB Sepsis - Probably PNA , s/p Rx 09/22 CXR: Bilateral pleural effusions, basilar atelectatic changes, and interstitial congestive changes are stable CXR 09/07/18 - possible left sided consolidation Inf neg 09/07/18 BCx 2/2 sets diphteroids, 1/ setse S. epi (contaminants); 09/11 Bcx NTD 09/07/18 SCx - NF 09/07/18 UCx - Neg 09/09 Cdiff neg HTN DM Schizophenia Quadriplegia. G- tube dependent Plan -Continue Zosyn #11 and IV Micafungin #10 in the setting of stomach perforation and intraabdominal fluid collections --minimum of 2 weeks but will continue abx until drains have been removed -f/u cx -09/28 SP Flagyl #3 - 09/19/18 SP Zosyn #10 - 09/17/18 SP Vancmocyin #10 - 09/09/18 Ertapenem #3 - Monitor CBC and temps -Sx f/u -wound care We will continue to follow the patient during this hospitalization. Subjective Allergies: Coded Allergies: No Known Allergies (Unverified , 08/14/18) Subjective afebrile wbc stable at 13 Fluid cx growing yeast so far Objective Vital Signs Last 24 Hour Vital Signs Date Time Temp Pulse Resp B/P (MAP) Pulse Ox O2 Delivery O2 Flow Rate FiO2 10/02/18 17:14 109 22 30 10/02/18 16:00 Mechanical Ventilator Mechanical Ventilator 10/02/18 16:00 30 10/02/18 16:00 105 10/02/18 16:00 98.6 104 18 151/93 100 Mechanical Ventilator 30 10/02/18 15:26 102 24 30 10/02/18 12:52 101 20 30 10/02/18 12:00 30 10/02/18 12:00 98.1 94 18 140/88 98 Mechanical Ventilator 30 10/02/18 12:00 85 10/02/18 12:00 Mechanical Ventilator Mechanical Ventilator 10/02/18 11:02 96 18 30 10/02/18 08:27 80 14 30 10/02/18 08:00 30 10/02/18 08:00 Mechanical Ventilator Mechanical Ventilator 10/02/18 08:00 98.1 86 20 138/91 100 Mechanical Ventilator 30 10/02/18 08:00 96 10/02/18 07:25 91 16 30 10/02/18 04:43 93 15 30 10/02/18 04:00 30 10/02/18 04:00 86 10/02/18 04:00 Mechanical Ventilator Mechanical Ventilator 10/02/18 04:00 98.1 90 24 130/61 96 Mechanical Ventilator 30 10/02/18 03:10 89 18 30 10/02/18 01:29 92 20 30 10/02/18 00:00 30 10/02/18 00:00 93 10/02/18 00:00 Mechanical Ventilator Mechanical Ventilator 10/02/18 00:00 99.2 97 21 132/92 94 Mechanical Ventilator 30 10/01/18 22:58 108 18 30 10/01/18 21:05 114 27 30 10/01/18 20:00 Mechanical Ventilator Mechanical Ventilator 10/01/18 20:00 99.0 92 17 135/84 99 Mechanical Ventilator 30 10/01/18 20:00 88 10/01/18 20:00 30 10/01/18 19:20 104 20 30 Height (Feet): 5 Height (Inches): 5.00 Weight (Pounds): 160 Objective Gen: NAD, On vent satting well 35% O2 HEENT: NCAT, MMM, EOMI LUNGS: CTAB, No W/C, CARDS: RRR, S1, S2, No M/R/G, ABD: Soft, NT, distended, + BS,G tube (No E/P) NEURO: Intubated, not following Laboratory Tests Test 10/02/18 03:15 White Blood Count 13.7 K/UL (4.8-10.8) H Red Blood Count 2.86 M/UL (4.70-6.10) L Hemoglobin 8.4 G/DL (14.2-18.0) L Hematocrit 25.5 % (42.0-52.0) L Mean Corpuscular Volume 89 FL (80-99) Mean Corpuscular Hemoglobin 29.5 PG (27.0-31.0) Mean Corpuscular Hemoglobin Concent 33.1 G/DL (32.0-36.0) Red Cell Distribution Width 13.2 % (11.6-14.8) Platelet Count 770 K/UL (150-450) H Mean Platelet Volume 7.3 FL (6.5-10.1) Neutrophils (%) (Auto) 79.2 % (45.0-75.0) H Lymphocytes (%) (Auto) 6.9 % (20.0-45.0) L Monocytes (%) (Auto) 6.4 % (1.0-10.0) Eosinophils (%) (Auto) 5.9 % (0.0-3.0) H Basophils (%) (Auto) 1.6 % (0.0-2.0) Sodium Level 144 MMOL/L (136-145) Potassium Level 4.4 MMOL/L (3.5-5.1) Chloride Level 114 MMOL/L (98-107) H Carbon Dioxide Level 23 MMOL/L (21-32) Anion Gap 7 mmol/L (5-15) Blood Urea Nitrogen 12 mg/dL (7-18) Creatinine 0.9 MG/DL (0.55-1.30) Estimat Glomerular Filtration Rate > 60 mL/min (>60) Glucose Level 162 MG/DL (74-106) H Calcium Level 6.7 MG/DL (8.5-10.1) L Phosphorus Level 2.2 MG/DL (2.5-4.9) L Magnesium Level 1.6 MG/DL (1.8-2.4) L Total Bilirubin 0.2 MG/DL (0.2-1.0) Direct Bilirubin < 0.1 MG/DL (0.0-0.3) Aspartate Amino Transf (AST/SGOT) 16 U/L (15-37) Alanine Aminotransferase (ALT/SGPT) 8 U/L (12-78) L Alkaline Phosphatase 76 U/L (46-116) Total Protein 5.1 G/DL (6.4-8.2) L Albumin 1.0 G/DL (3.4-5.0) L Current Medications Medications (Trade) Dose Ordered Sig/Julito Route PRN Reason Start Time Stop Time Status Last Admin Dose Admin Acetaminophen (Tylenol) 650 mg Q4H PRN NG Mild Pain/Temp > 100.5 09/24/18 12:15 10/08/18 12:14 Acetaminophen (Tylenol) 650 mg Q4H PRN RECTAL Mild Pain (Pain Scale 1-3) 09/25/18 21:00 10/25/18 20:59 09/25/18 21:17 Chlorhexidine Gluconate (Camila-Hex 2%) 1 applic DAILY@2000 TOPIC 09/24/18 20:00 10/15/18 19:59 10/01/18 20:55 Dextrose (Dextrose 50%) 25 ml Q30M PRN IV Hypoglycemia 09/24/18 12:30 10/08/18 13:29 Dextrose (Dextrose 50%) 50 ml Q30M PRN IV Hypoglycemia 09/24/18 12:30 10/08/18 13:29 Diatrizoate Meglum/ Diatrizoate Sod (Gastrografin) 30 ml NOW PRN ORAL Radiology Procedure 10/01/18 13:00 10/03/18 12:59 Fat Emulsion Intravenous 216 ml/Amino Acids/ Electrolytes/ Dextrose 1,608 ml @ 67 mls/hr Q24H IV 09/25/18 05:30 10/25/18 05:29 10/02/18 05:06 Heparin Sodium (Porcine) (Heparin 5000 units/ml) 5,000 units EVERY 12 HOURS SUBQ 09/24/18 21:00 10/07/18 20:59 10/01/18 08:33 Insulin Aspart (NovoLOG) Q6HR SUBQ 09/24/18 12:00 10/08/18 11:59 10/02/18 13:47 Iopamidol (Isovue-300 100ml) 100 ml NOW PRN INJ Radiology Procedure 10/01/18 13:00 10/03/18 12:59 Loperamide HCl (Imodium) 4 mg TIDPRN PRN ORAL Diarrhea 09/24/18 12:15 10/10/18 12:14 Micafungin Sodium 100 mg/Sodium Chloride 110 ml @ 110 mls/hr Q24H IVPB 09/29/18 18:00 10/05/18 17:59 10/01/18 17:33 Ondansetron HCl (Zofran) 4 mg Q6H PRN IVP Nausea & Vomiting 09/24/18 12:15 10/07/18 12:14 Pantoprazole (Protonix) 40 mg Q12HR IVP 09/24/18 21:00 10/08/18 08:59 10/02/18 09:34 Phytonadione (Vitamin K) 10 mg QWEEK SUBQ 09/30/18 09:00 10/30/18 08:59 09/30/18 08:09 Piperacillin Sod/ Tazobactam Sod 3.375 gm/Sodium Chloride 110 ml @ 27.5 mls/hr EVERY 8 HOURS IVPB 09/24/18 14:00 10/07/18 13:59 10/02/18 05:00 Polyethylene Glycol (Miralax) 17 gm DAILYPRN PRN ORAL Constipation 09/24/18 12:15 10/07/18 12:14 Risperidone (RisperDAL) 0.25 mg QHS ORAL 09/24/18 21:00 10/10/18 20:59 09/27/18 20:04 Sodium Chloride 500 ml @ 999 mls/hr Q31M PRN IV SBP<90mmHg 09/24/18 12:15 10/08/18 10:59 Kell Larkin M.D. Oct 02, 2018 18:17
--- NOTE | 2018-10-02 18:56 | Cardiac Electrophysiology PN ---
Assessment/Plan Assessment/Plan 1. S/P Septic and hemorrhagic shock with Lactic acidosis. On Abx and S/P PRBC 2. Sinus tachycardia in 140s due to sepsis, anemia and dehydration. No fibrillation. EF 75%. 3. Troponin elevation due to renal failure. EF 75%. 4. Respiratory failure on the vent. S/P Tracheostomy 09/22/18 5. Rhabdomyolysis with CPK in thousands contributing to renal failure. 6. Acute renal failure and severe hyperkalemia. FU by Dr. Smalls 7. Dysphagia, Hx of PEG placement but was dislodged. S/P exploratory laparotomy, repair of gastric perforation, evacuation of perisplenic abscess, splenectomy 09/23/[address] Smalls Both drains still draining FU Dr Contreras 8. GI bleed. S/P EGD by Dr. Horton. S/p PRBCs Stat CT ordered by Dr Clifford ANGULO RN Subjective Subjective On the Vent via tracheostomy draining from both abdominal drains On TPN and Lipid. Objective Last 24 Hour Vital Signs Date Time Temp Pulse Resp B/P (MAP) Pulse Ox O2 Delivery O2 Flow Rate FiO2 10/02/18 17:14 109 22 30 10/02/18 16:00 Mechanical Ventilator Mechanical Ventilator 10/02/18 16:00 30 10/02/18 16:00 105 10/02/18 16:00 98.6 104 18 151/93 100 Mechanical Ventilator 30 10/02/18 15:26 102 24 30 10/02/18 12:52 101 20 30 10/02/18 12:00 30 10/02/18 12:00 98.1 94 18 140/88 98 Mechanical Ventilator 30 10/02/18 12:00 85 10/02/18 12:00 Mechanical Ventilator Mechanical Ventilator 10/02/18 11:02 96 18 30 10/02/18 08:27 80 14 30 10/02/18 08:00 30 10/02/18 08:00 Mechanical Ventilator Mechanical Ventilator 10/02/18 08:00 98.1 86 20 138/91 100 Mechanical Ventilator 30 10/02/18 08:00 96 10/02/18 07:25 91 16 30 10/02/18 04:43 93 15 30 10/02/18 04:00 30 10/02/18 04:00 86 10/02/18 04:00 Mechanical Ventilator Mechanical Ventilator 10/02/18 04:00 98.1 90 24 130/61 96 Mechanical Ventilator 30 10/02/18 03:10 89 18 30 10/02/18 01:29 92 20 30 10/02/18 00:00 30 10/02/18 00:00 93 10/02/18 00:00 Mechanical Ventilator Mechanical Ventilator 10/02/18 00:00 99.2 97 21 132/92 94 Mechanical Ventilator 30 10/01/18 22:58 108 18 30 10/01/18 21:05 114 27 30 10/01/18 20:00 Mechanical Ventilator Mechanical Ventilator 10/01/18 20:00 99.0 92 17 135/84 99 Mechanical Ventilator 30 10/01/18 20:00 88 10/01/18 20:00 30 10/01/18 19:20 104 20 30 Intake and Output 10/01/18 10/02/18 19:00 07:00 Intake Total 1198.25 ml 349.0 ml Output Total 705 ml Balance 493.25 ml 349.0 ml IV Total 1198.25 ml 349.0 ml Output Urine Total 625 ml Drainage Total 80 ml Laboratory Tests Test 10/02/18 03:15 White Blood Count 13.7 K/UL (4.8-10.8) H Red Blood Count 2.86 M/UL (4.70-6.10) L Hemoglobin 8.4 G/DL (14.2-18.0) L Hematocrit 25.5 % (42.0-52.0) L Mean Corpuscular Volume 89 FL (80-99) Mean Corpuscular Hemoglobin 29.5 PG (27.0-31.0) Mean Corpuscular Hemoglobin Concent 33.1 G/DL (32.0-36.0) Red Cell Distribution Width 13.2 % (11.6-14.8) Platelet Count 770 K/UL (150-450) H Mean Platelet Volume 7.3 FL (6.5-10.1) Neutrophils (%) (Auto) 79.2 % (45.0-75.0) H Lymphocytes (%) (Auto) 6.9 % (20.0-45.0) L Monocytes (%) (Auto) 6.4 % (1.0-10.0) Eosinophils (%) (Auto) 5.9 % (0.0-3.0) H Basophils (%) (Auto) 1.6 % (0.0-2.0) Sodium Level 144 MMOL/L (136-145) Potassium Level 4.4 MMOL/L (3.5-5.1) Chloride Level 114 MMOL/L (98-107) H Carbon Dioxide Level 23 MMOL/L (21-32) Anion Gap 7 mmol/L (5-15) Blood Urea Nitrogen 12 mg/dL (7-18) Creatinine 0.9 MG/DL (0.55-1.30) Estimat Glomerular Filtration Rate > 60 mL/min (>60) Glucose Level 162 MG/DL (74-106) H Calcium Level 6.7 MG/DL (8.5-10.1) L Phosphorus Level 2.2 MG/DL (2.5-4.9) L Magnesium Level 1.6 MG/DL (1.8-2.4) L Total Bilirubin 0.2 MG/DL (0.2-1.0) Direct Bilirubin < 0.1 MG/DL (0.0-0.3) Aspartate Amino Transf (AST/SGOT) 16 U/L (15-37) Alanine Aminotransferase (ALT/SGPT) 8 U/L (12-78) L Alkaline Phosphatase 76 U/L (46-116) Total Protein 5.1 G/DL (6.4-8.2) L Albumin 1.0 G/DL (3.4-5.0) L Objective HEENT: S/P tracheostomy. LUNGS: Coarse rhonchi. CARDIOVASCULAR: Regular S1 and S2. ABDOMEN: Post op covered with dressing and 2 drains EXTREMITIES: No pitting edema. Jasbir Madsen MD Oct 02, 2018 18:56
[2018-10-02] MEDS ORDERED: NS Irrig 1000ml ONE (19:15)
[2018-10-02] MEDS ORDERED: NS 275ml ONE ×3 (19:15→20:23)
[2018-10-02] MEDS ORDERED: Tubing IV Secondary IV ONE ×3 (19:15→20:23)
[2018-10-02 20:00] VITALS: BP 135/95
[2018-10-02] MEDS ORDERED: NS 500ML ONE (20:16)
[2018-10-02] MEDS: Dyna-Hex 2% Top Sol 2oz TOPIC SCH (21:31)
[2018-10-02] MEDS: Micafungin 100 MG in NS 110 ML IVPB SCH (21:32)
[2018-10-03] VITALS: BP 130/81
[2018-10-03] MEDS: Acetaminophen 650 MG SUPP RECTAL PRN (00:40)
[2018-10-03] MEDS: NovoLOG Insulin Flexpen SUBQ SCH ×4 (00:45→17:20)
[2018-10-03 04:00] VITALS: BP 129/81
[2018-10-03] MEDS: FAT EMULSION 20% IV SCH (05:49)
[2018-10-03] MEDS: TPN IV SCH (05:49)
[2018-10-03] MEDS: Piperacillin/Tazobactam 3.375 GM in NS 110 ML IVPB SCH ×3 (05:52→21:04)
[2018-10-03 07:02] LABS: HEMATOCRIT 24.1 % (42.0-52.0); HEMOGLOBIN 7.9 G/DL (14.2-18.0); MEAN CORPUSCULAR VOLUME 89 FL (80-99); PLATELET COUNT 767 K/UL (150-450); RED CELL DISTRIBUTION WIDTH 13.1 % (11.6-14.8); WHITE BLOOD COUNT 12.1 K/UL (4.8-10.8)
[2018-10-03 07:30] LABS: ALANINE AMINOTRANSFERASE 10 U/L (12-78); ALBUMIN/GLOBULIN RATIO 0.2 (1.0-2.7); ALKALINE PHOSPHATASE 79 U/L (46-116); ANION GAP 6 mmol/L (5-15); ASPARTATE AMINO TRANSFERASE 18 U/L (15-37); BILIRUBIN,TOTAL 0.2 MG/DL (0.2-1.0); BLOOD UREA NITROGEN 11 mg/dL (7-18); CARBON DIOXIDE 27 MMOL/L (21-32); CHLORIDE 112 MMOL/L (98-107); POTASSIUM 3.1 MMOL/L (3.5-5.1); SODIUM 144 MMOL/L (136-145)
--- NOTE | 2018-10-03 07:30 | Progress Note ---
DATE: 10/03/2018 SUBJECTIVE: This is a 62-year-old male patient with septic shock, anemia, and GI bleed. He has altered mental status, confusion, decline in cognition below his baseline. MENTAL STATUS EXAMINATION: This is a 62-year-old male. Appearance is disheveled. Attitude irritable and agitated. Affect, guarded and restricted. Intellect poor. Mood depressed and anxious. Motor activity, psychomotor agitation. Attention span is poor. Orientation x2. Speech is low volume and slurred. Thought process, disorganized and illogical. Insight and judgment is poor. DIAGNOSIS: Paranoid schizophrenia. PLAN: Treat him with Risperdal 0.25 mg at bedtime. Provide him with 20 minutes of behavioral management. . Chart reviewed and discussed with staff. Seen and assessed at his room. Virgie Mcdermott M.D. DR: JAYSON JOB#: [id number] CC:
--- NOTE | 2018-10-03 07:37 | Pulmonology Progress Note ---
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 prob PNA, s/p Rx acute renal failure/ATN -resolved troponin elevation due to renal failure pulmonary HTN rhabdo ( contributing to acute renal failure along with sepsis) lactic acidosis ST likely due to combined effect of sepsis, anemia and dehydration GI bleeding s/p EGD esophagitis dysphagia, G tube ( now removed due to dislodgement) DM HTN pulmonary hypertension paranoid schizophrenia with acute exacerbation diarrhea- stool C dif negative anemia st 3 R hip decub, POA severe protein calorie malnutrition PLAN OF CARE ROBBIE vent support tar care pulm toilet fup with CXR no signs of respiratory distress on current settings strict aspiration precaution TPN for now monitor renal parameters and electrolytes , replace electrolytes in TPN as per nephro /GI recs abx as per in the setting of stomach perforation and intraabdominal fluid collections minimum of 2 weeks, but per iD recs continue abx until drains removed monitor H&H with goal to keep hemoglobin above 7, anemia w/up c/ anemia of chronic disease stool OB x 2 negative BS management with SSI BP management , stable cardio follows ECHO with pEF 60-65%,. midl to moderate MR and moderate pulm HTN ST likely due to sepsis, dehydration and anemia , no evidence of A fib on tele - as per cardio pain management wound care supportive care case discussed and evaluated by supervising physician CT abdomen 10/02 -Abnormal appearance of small bowel and large bowel showing wall thickening and enhancement may be related to enteritis and/or colitis GI follows Subjective Allergies: Coded Allergies: No Known Allergies (Unverified , 08/14/18) Subjective still mild leukocytosis, afebrile no signs of resp distress on current setting remains on TPN Hgb down to 7.9 Objective Last 24 Hour Vital Signs Date Time Temp Pulse Resp B/P (MAP) Pulse Ox O2 Delivery O2 Flow Rate FiO2 10/03/18 07:14 97 17 30 10/03/18 05:03 97 15 30 10/03/18 04:00 30 10/03/18 04:00 Mechanical Ventilator Mechanical Ventilator 10/03/18 04:00 99 10/03/18 04:00 98.4 105 20 129/81 99 Mechanical Ventilator 30 10/03/18 03:05 98 15 30 10/03/18 00:49 109 17 30 10/03/18 00:00 Mechanical Ventilator Mechanical Ventilator 10/03/18 00:00 99.7 108 16 130/81 98 Mechanical Ventilator 30 10/03/18 00:00 114 10/02/18 23:17 108 15 30 10/02/18 21:03 121 23 30 10/02/18 20:00 Mechanical Ventilator Mechanical Ventilator 10/02/18 20:00 98.9 115 16 135/95 99 Mechanical Ventilator 30 10/02/18 20:00 30 10/02/18 20:00 109 10/02/18 19:18 117 19 30 10/02/18 17:14 109 22 30 10/02/18 16:00 Mechanical Ventilator Mechanical Ventilator 10/02/18 16:00 30 10/02/18 16:00 105 10/02/18 16:00 98.6 104 18 151/93 100 Mechanical Ventilator 30 10/02/18 15:26 102 24 30 10/02/18 12:52 101 20 30 10/02/18 12:00 30 10/02/18 12:00 98.1 94 18 140/88 98 Mechanical Ventilator 30 10/02/18 12:00 85 10/02/18 12:00 Mechanical Ventilator Mechanical Ventilator 10/02/18 11:02 96 18 30 10/02/18 08:27 80 14 30 10/02/18 08:00 30 10/02/18 08:00 Mechanical Ventilator Mechanical Ventilator 10/02/18 08:00 98.1 86 20 138/91 100 Mechanical Ventilator 30 10/02/18 08:00 96 Intake and Output 10/02/18 10/03/18 18:59 06:59 Intake Total 1069.819 ml 957.0 ml Output Total 1710 ml 985 ml Balance -640.181 ml -28.0 ml IV Total 1069.819 ml 957.0 ml Output Urine Total 1600 ml 700 ml Stool Total 200 ml Drainage Total 110 ml 85 ml General Appearance: no acute distress, other - on Vent AC 500-12-30% HEENT: normocephalic, atraumatic, anicteric, status post trach - Shiley #8, secretions scant, white, thin Respiratory/Chest: lungs clear, no respiratory distress, no accessory muscle use Cardiovascular: normal rate - SR on tele , no JVD Abdomen: other - 2 abd drains , abdomen soft, mild distention, tendern around incision Genitourinary: other - Silva Extremities: no edema, pedal pulses normal Skin: other - st 3 R hip decub POA Neurologic/Psychiatric: abnormal gait Musculoskeletal: normal muscle bulk Laboratory Tests 10/03/18 03:30: White Blood Count 12.1H, Red Blood Count 2.70L, Hemoglobin 7.9L, Hematocrit 24.1L, Mean Corpuscular Volume 89, Mean Corpuscular Hemoglobin 29.4, Mean Corpuscular Hemoglobin Concent 32.9, Red Cell Distribution Width 13.1, Platelet Count 767H, Mean Platelet Volume 7.0, Neutrophils (%) (Auto) , Lymphocytes (%) ( Auto) , Monocytes (%) (Auto) , Eosinophils (%) (Auto) , Basophils (%) (Auto) , Neutrophils % (Manual) [Pending], Lymphocytes % (Manual) [Pending], Platelet Estimate [Pending], Platelet Morphology [Pending], Sodium Level 144, Potassium Level 3.1L, Chloride Level 112H, Carbon Dioxide Level 27, Anion Gap 6, Blood Urea Nitrogen 11, Creatinine 1.0, Estimat Glomerular Filtration Rate > 60, Glucose Level 182H, Calcium Level 7.0L, Phosphorus Level [Pending], Magnesium Level [Pending], Total Bilirubin 0.2, Aspartate Amino Transf (AST/SGOT) 18, Alanine Aminotransferase (ALT/SGPT) 10L, Alkaline Phosphatase 79, Total Protein 5.2L, Albumin 1.0L, Globulin 4.2, Albumin/Globulin Ratio 0.2L Current Medications Medications (Trade) Dose Ordered Sig/Julito Route PRN Reason Start Time Stop Time Status Last Admin Dose Admin Acetaminophen (Tylenol) 650 mg Q4H PRN NG Mild Pain/Temp > 100.5 09/24/18 12:15 10/08/18 12:14 Acetaminophen (Tylenol) 650 mg Q4H PRN RECTAL Mild Pain (Pain Scale 1-3) 09/25/18 21:00 10/25/18 20:59 09/25/18 21:17 Chlorhexidine Gluconate (Camila-Hex 2%) 1 applic DAILY@1999 TOPIC 09/24/18 20:00 10/15/18 19:59 10/02/18 21:31 Dextrose (Dextrose 50%) 25 ml Q30M PRN IV Hypoglycemia 09/24/18 12:30 10/08/18 13:29 Dextrose (Dextrose 50%) 50 ml Q30M PRN IV Hypoglycemia 09/24/18 12:30 10/08/18 13:29 Diatrizoate Meglum/ Diatrizoate Sod (Gastrografin) 30 ml NOW PRN ORAL Radiology Procedure 10/01/18 13:00 10/03/18 12:59 Fat Emulsion Intravenous 216 ml/Amino Acids/ Electrolytes/ Dextrose 1,608 ml @ 67 mls/hr Q24H IV 09/25/18 05:30 10/25/18 05:29 10/03/18 05:49 Heparin Sodium (Porcine) (Heparin 5000 units/ml) 5,000 units EVERY 12 HOURS SUBQ 09/24/18 21:00 10/07/18 20:59 10/01/18 08:33 Insulin Aspart (NovoLOG) Q6HR SUBQ 09/24/18 12:00 10/08/18 11:59 10/03/18 05:50 Iopamidol (Isovue-300 100ml) 100 ml NOW PRN INJ Radiology Procedure 10/01/18 13:00 10/03/18 12:59 Loperamide HCl (Imodium) 4 mg TIDPRN PRN ORAL Diarrhea 09/24/18 12:15 10/10/18 12:14 Micafungin Sodium 100 mg/Sodium Chloride 110 ml @ 110 mls/hr Q24H IVPB 09/29/18 18:00 10/05/18 17:59 10/02/18 21:32 Ondansetron HCl (Zofran) 4 mg Q6H PRN IVP Nausea & Vomiting 09/24/18 12:15 10/07/18 12:14 Pantoprazole (Protonix) 40 mg Q12HR IVP 09/24/18 21:00 10/08/18 08:59 10/02/18 21:30 Phytonadione (Vitamin K) 10 mg QWEEK SUBQ 09/30/18 09:00 10/30/18 08:59 09/30/18 08:09 Piperacillin Sod/ Tazobactam Sod 3.375 gm/Sodium Chloride 110 ml @ 27.5 mls/hr EVERY 8 HOURS IVPB 09/24/18 14:00 10/07/18 13:59 10/03/18 05:52 Polyethylene Glycol (Miralax) 17 gm DAILYPRN PRN ORAL Constipation 09/24/18 12:15 10/07/18 12:14 Risperidone (RisperDAL) 0.25 mg QHS ORAL 09/24/18 21:00 10/10/18 20:59 09/27/18 20:04 Sodium Chloride 500 ml @ 999 mls/hr Q31M PRN IV SBP<90mmHg 09/24/18 12:15 10/08/18 10:59 Hedii Kamara [employer] Oct 03, 2018 07:37
[2018-10-03 07:46] LABS: PHOSPHORUS 2.7 MG/DL (2.5-4.9)
[2018-10-03 08:00] VITALS: BP 136/84
[2018-10-03] MEDS: Pantoprazole Inj IVP SCH ×2 (08:40→21:00)
[2018-10-03] MEDS: Heparin 5000 units/ml inj SUBQ SCH ×2 (08:41→20:59)
--- NOTE | 2018-10-03 09:02 | General Progress Note ---
Assessment/Plan Problem List: (1) UTI (urinary tract infection) ICD Codes: N39.0 - Urinary tract infection, site not specified SNOMED: 71184563 (2) Renal failure ICD Codes: N19 - Unspecified kidney failure SNOMED: 04366647 (3) Anemia ICD Codes: D64.9 - Anemia, unspecified SNOMED: 667549015 (4) Acute respiratory failure ICD Codes: J96.00 - Acute respiratory failure, unspecified whether with hypoxia or hypercapnia SNOMED: 88038180 (5) Pneumonia ICD Codes: J18.9 - Pneumonia, unspecified organism SNOMED: 778145099 (6) Septic shock ICD Codes: A41.9 - Sepsis, unspecified organism; R65.21 - Severe sepsis with septic shock SNOMED: 55924615 (7) ATN (acute tubular necrosis) ICD Codes: N17.0 - Acute kidney failure with tubular necrosis SNOMED: 88707642 Status: unchanged Assessment/Plan vent abx wound care neph f/u gi eval cbc bmp am Subjective Constitutional: Reports: weakness Allergies: Coded Allergies: No Known Allergies (Unverified , 08/14/18) All Systems: reviewed and negative except above Subjective trach vent altered Objective Last 24 Hour Vital Signs Date Time Temp Pulse Resp B/P (MAP) Pulse Ox O2 Delivery O2 Flow Rate FiO2 10/03/18 07:14 97 17 30 10/03/18 05:03 97 15 30 10/03/18 04:00 30 10/03/18 04:00 Mechanical Ventilator Mechanical Ventilator 10/03/18 04:00 99 10/03/18 04:00 98.4 105 20 129/81 99 Mechanical Ventilator 30 10/03/18 03:05 98 15 30 10/03/18 00:49 109 17 30 10/03/18 00:00 Mechanical Ventilator Mechanical Ventilator 10/03/18 00:00 99.7 108 16 130/81 98 Mechanical Ventilator 30 10/03/18 00:00 114 10/02/18 23:17 108 15 30 10/02/18 21:03 121 23 30 10/02/18 20:00 Mechanical Ventilator Mechanical Ventilator 10/02/18 20:00 98.9 115 16 135/95 99 Mechanical Ventilator 30 10/02/18 20:00 30 10/02/18 20:00 109 2/22/19 19:18 117 19 30 10/02/18 17:14 109 22 30 10/02/18 16:00 Mechanical Ventilator Mechanical Ventilator 10/02/18 16:00 30 10/02/18 16:00 105 10/02/18 16:00 98.6 104 18 151/93 100 Mechanical Ventilator 30 10/02/18 15:26 102 24 30 10/02/18 12:52 101 20 30 10/02/18 12:00 30 10/02/18 12:00 98.1 94 18 140/88 98 Mechanical Ventilator 30 10/02/18 12:00 85 10/02/18 12:00 Mechanical Ventilator Mechanical Ventilator 10/02/18 11:02 96 18 30 Intake and Output 10/02/18 10/03/18 18:59 06:59 Intake Total 1069.819 ml 957.0 ml Output Total 1710 ml 985 ml Balance -640.181 ml -28.0 ml IV Total 1069.819 ml 957.0 ml Output Urine Total 1600 ml 700 ml Stool Total 200 ml Drainage Total 110 ml 85 ml Laboratory Tests 10/03/18 03:30: White Blood Count 12.1H, Red Blood Count 2.70L, Hemoglobin 7.9L, Hematocrit 24.1L, Mean Corpuscular Volume 89, Mean Corpuscular Hemoglobin 29.4, Mean Corpuscular Hemoglobin Concent 32.9, Red Cell Distribution Width 13.1, Platelet Count 767H, Mean Platelet Volume 7.0, Neutrophils (%) (Auto) , Lymphocytes (%) ( Auto) , Monocytes (%) (Auto) , Eosinophils (%) (Auto) , Basophils (%) (Auto) , Neutrophils % (Manual) [Pending], Lymphocytes % (Manual) [Pending], Platelet Estimate [Pending], Platelet Morphology [Pending], Sodium Level 144, Potassium Level 3.1L, Chloride Level 112H, Carbon Dioxide Level 27, Anion Gap 6, Blood Urea Nitrogen 11, Creatinine 1.0, Estimat Glomerular Filtration Rate > 60, Glucose Level 182H, Calcium Level 7.0L, Phosphorus Level 2.7, Magnesium Level 1.9, Total Bilirubin 0.2, Aspartate Amino Transf (AST/SGOT) 18, Alanine Aminotransferase (ALT/SGPT) 10L, Alkaline Phosphatase 79, Total Protein 5.2L, Albumin 1.0L, Globulin 4.2, Albumin/Globulin Ratio 0.2L Height (Feet): 5 Height (Inches): 5.00 Weight (Pounds): 158 General Appearance: lethargic EENT: normal ENT inspection Neck: normal alignment Cardiovascular: normal peripheral pulses, normal rate, regular rhythm Respiratory/Chest: chest wall non-tender, lungs clear, normal breath sounds Abdomen: normal bowel sounds, non tender, soft Extremities: normal inspection Edema: no edema noted Arm (L), no edema noted Arm (R), no edema noted Leg (L), no edema noted Leg (R), no edema noted Pedal (L), no edema noted Pedal (R), no edema noted Generalized Neurologic: motor weakness Skin: normal pigmentation, warm/dry Jasmeet Reynoso DO Oct 03, 2018 09:02
--- NOTE | 2018-10-03 10:46 | Infectious Diseases Prog Note ---
Assessment/Plan Assessment/Plan 62 yo male with PMHx of Quadriplegia with G-tube, HTN, DM and Schizophenia who was sent to the ED fromhis group home for AMS. Displaced GT with perforation c/w peritonitis and hematoma/abscess formation -10/02 CT abd/p: Interval exploratory laparotomy, status post splenectomy, status post removal of gastrostomy tube with 2 abdominal drains noted. Abnormal appearance of the stomach with marked wall thickening and pneumatosis. Abnormal appearance of small bowel and large bowel showing wall thickening and enhancement may be related to enteritis and/or colitis. Trace ascites -09/22 SP Exploratory laparotomy. Repair of gastric perforation. Evacuation of abdominal omental / lesser sac hematoma. Evacuation of perisplenic hematoma/ abscess. Omentectomy. Splenectomy. Abdominal washout. Tracheostomy. -09/21 CT abd/p: The gastrostomy tube appears to be partially intraluminal and partially communicate with a large intramural collection involving mostly the inferior posterior wall of the stomach. There is some anterior wall pneumatosis. Contrast within the collection most likely represents instilled enteric contrast, but could also represent extravasated vascular contrast. There is evidence of rupture of this collection into the peritoneal space, with extravasated contrast in the left upper quadrant. There is anterior gastric wall intramural pneumatosis as well as a small amount of free extraluminal gas. Moderate ascites. Enhancement of much of the peritoneum raises concern for peritonitis. There may also be loculated intraperitoneal collections which could represent abscesses, predominantly adjacent to the tip of the right hepatic lobe, subcapsular in the spleen, and within the left upper quadrant. Thick-walled sigmoid colon, transverse colon and equivocally the proximal jejunum. Likely reactive related to the above, but could also indicate enteritis /colitis changes Septic shock 2ry to above, SP Leukocytosis, recurrent worsened-after procedure; improving -09/29 L ELISABET drain (+purulebnt fluid) cx : C. tropicalis -09/28 u/a neg, ucx NTD Bcx NTD CXR: Over one day, interim development of bilateral supraclavicular subcutaneous emphysema and pneumomediastinum, etiology not demonstrated. Persistent low lung volumes with basilar atelectatic changes and left-sided pleural effusion -09/20 ucx NTD; u/a neg -09/19 CXR: Bilateral pleural effusions and bibasilar atelectasis/airspace disease are stable. Low grade fever; SP Diarrhea- -09/27 Cdiff neg GIB Sepsis - Probably PNA , s/p Rx 09/22 CXR: Bilateral pleural effusions, basilar atelectatic changes, and interstitial congestive changes are stable CXR 09/07/18 - possible left sided consolidation Inf neg 09/07/18 BCx 2/2 sets diphteroids, 1/2 setse S. epi (contaminants); 09/11 Bcx NTD 09/07/18 SCx - NF 09/07/18 UCx - Neg 09/09 Cdiff neg HTN DM Schizophenia Quadriplegia. G- tube dependent Plan -Continue Zosyn #12 and IV Micafungin #11 in the setting of stomach perforation and intraabdominal fluid collections --minimum of 2 weeks but will continue abx until drains have been removed -f/u cx -09/28 SP Flagyl #3 - 09/19/18 SP Zosyn #10 - 09/17/18 SP Vancmocyin #10 - 09/09/18 Ertapenem #3 - Monitor CBC and temps -Sx f/u -wound care We will continue to follow the patient during this hospitalization. Subjective Allergies: Coded Allergies: No Known Allergies (Unverified , 08/14/18) Subjective afebrile wbc improving Fluid cx grew Nicky tropicalis Objective Vital Signs Last 24 Hour Vital Signs Date Time Temp Pulse Resp B/P (MAP) Pulse Ox O2 Delivery O2 Flow Rate FiO2 10/03/18 09:27 89 16 30 10/03/18 08:00 Mechanical Ventilator Mechanical Ventilator 10/03/18 08:00 30 10/03/18 08:00 89 10/03/18 08:00 98.8 88 16 136/84 97 Mechanical Ventilator 30 10/03/18 07:14 97 17 30 10/03/18 05:03 97 15 30 10/03/18 04:00 30 10/03/18 04:00 Mechanical Ventilator Mechanical Ventilator 10/03/18 04:00 99 10/03/18 04:00 98.4 105 20 129/81 99 Mechanical Ventilator 30 10/03/18 03:05 98 15 30 10/03/18 00:49 109 17 30 10/03/18 00:00 Mechanical Ventilator Mechanical Ventilator 10/03/18 00:00 99.7 108 16 130/81 98 Mechanical Ventilator 30 10/03/18 00:00 114 10/02/18 23:17 108 15 30 10/02/18 21:03 121 23 30 10/02/18 20:00 Mechanical Ventilator Mechanical Ventilator 10/02/18 20:00 98.9 115 16 135/95 99 Mechanical Ventilator 30 10/02/18 20:00 30 10/02/18 20:00 109 10/02/18 19:18 117 19 30 10/02/18 17:14 109 22 30 10/02/18 16:00 Mechanical Ventilator Mechanical Ventilator 10/02/18 16:00 30 10/02/18 16:00 105 10/02/18 16:00 98.6 104 18 151/93 100 Mechanical Ventilator 30 10/02/18 15:26 102 24 30 10/02/18 12:52 101 20 30 10/02/18 12:00 30 10/02/18 12:00 98.1 94 18 140/88 98 Mechanical Ventilator 30 10/02/18 12:00 85 10/02/18 12:00 Mechanical Ventilator Mechanical Ventilator 10/02/18 11:02 96 18 30 Height (Feet): 5 Height (Inches): 5.00 Weight (Pounds): 158 Objective Gen: NAD, On vent satting well 35% O2 HEENT: NCAT, MMM, EOMI LUNGS: CTAB, No W/C, CARDS: RRR, S1, S2, No M/R/G, ABD: Soft, NT, distended, + BS,G tube (No E/P) NEURO: Intubated, not following Laboratory Tests Test 10/03/18 03:30 White Blood Count 12.1 K/UL (4.8-10.8) H Red Blood Count 2.70 M/UL (4.70-6.10) L Hemoglobin 7.9 G/DL (14.2-18.0) L Hematocrit 24.1 % (42.0-52.0) L Mean Corpuscular Volume 89 FL (80-99) Mean Corpuscular Hemoglobin 29.4 PG (27.0-31.0) Mean Corpuscular Hemoglobin Concent 32.9 G/DL (32.0-36.0) Red Cell Distribution Width 13.1 % (11.6-14.8) Platelet Count 767 K/UL (150-450) H Mean Platelet Volume 7.0 FL (6.5-10.1) Neutrophils (%) (Auto) % (45.0-75.0) Lymphocytes (%) (Auto) % (20.0-45.0) Monocytes (%) (Auto) % (1.0-10.0) Eosinophils (%) (Auto) % (0.0-3.0) Basophils (%) (Auto) % (0.0-2.0) Differential Total Cells Counted 100 Neutrophils % (Manual) 75 % (45-75) Lymphocytes % (Manual) 13 % (20-45) L Monocytes % (Manual) 7 % (1-10) Eosinophils % (Manual) 5 % (0-3) H Basophils % (Manual) 0 % (0-2) Band Neutrophils 0 % (0-8) Platelet Estimate Increased H Platelet Morphology Normal Hypochromasia 1+ Sodium Level 144 MMOL/L (136-145) Potassium Level 3.1 MMOL/L (3.5-5.1) L Chloride Level 112 MMOL/L (98-107) H Carbon Dioxide Level 27 MMOL/L (21-32) Anion Gap 6 mmol/L (5-15) Blood Urea Nitrogen 11 mg/dL (7-18) Creatinine 1.0 MG/DL (0.55-1.30) Estimat Glomerular Filtration Rate > 60 mL/min (>60) Glucose Level 182 MG/DL (74-106) H Calcium Level 7.0 MG/DL (8.5-10.1) L Phosphorus Level 2.7 MG/DL (2.5-4.9) Magnesium Level 1.9 MG/DL (1.8-2.4) Total Bilirubin 0.2 MG/DL (0.2-1.0) Aspartate Amino Transf (AST/SGOT) 18 U/L (15-37) Alanine Aminotransferase (ALT/SGPT) 10 U/L (12-78) L Alkaline Phosphatase 79 U/L (46-116) Total Protein 5.2 G/DL (6.4-8.2) L Albumin 1.0 G/DL (3.4-5.0) L Globulin 4.2 g/dL Albumin/Globulin Ratio 0.2 (1.0-2.7) L Current Medications Medications (Trade) Dose Ordered Sig/Julito Route PRN Reason Start Time Stop Time Status Last Admin Dose Admin Acetaminophen (Tylenol) 650 mg Q4H PRN NG Mild Pain/Temp > 100.5 09/24/18 12:15 10/08/18 12:14 Acetaminophen (Tylenol) 650 mg Q4H PRN RECTAL Mild Pain (Pain Scale 1-3) 09/25/18 21:00 10/25/18 20:59 09/25/18 21:17 Chlorhexidine Gluconate (Camila-Hex 2%) 1 applic DAILY@2000 TOPIC 09/24/18 20:00 10/15/18 19:59 10/02/18 21:31 Dextrose (Dextrose 50%) 25 ml Q30M PRN IV Hypoglycemia 09/24/18 12:30 10/08/18 13:29 Dextrose (Dextrose 50%) 50 ml Q30M PRN IV Hypoglycemia 09/24/18 12:30 10/08/18 13:29 Diatrizoate Meglum/ Diatrizoate Sod (Gastrografin) 30 ml NOW PRN ORAL Radiology Procedure 10/01/18 13:00 10/03/18 12:59 Fat Emulsion Intravenous 216 ml/Amino Acids/ Electrolytes/ Dextrose 1,608 ml @ 67 mls/hr Q24H IV 09/25/18 05:30 10/25/18 05:29 10/03/18 05:49 Heparin Sodium (Porcine) (Heparin 5000 units/ml) 5,000 units EVERY 12 HOURS SUBQ 09/24/18 21:00 10/07/18 20:59 10/01/18 08:33 Insulin Aspart (NovoLOG) Q6HR SUBQ 09/24/18 12:00 10/08/18 11:59 10/03/18 05:50 Iopamidol (Isovue-300 100ml) 100 ml NOW PRN INJ Radiology Procedure 10/01/18 13:00 10/03/18 12:59 Loperamide HCl (Imodium) 4 mg TIDPRN PRN ORAL Diarrhea 09/24/18 12:15 10/10/18 12:14 Micafungin Sodium 100 mg/Sodium Chloride 110 ml @ 110 mls/hr Q24H IVPB 09/29/18 18:00 10/05/18 17:59 10/02/18 21:32 Ondansetron HCl (Zofran) 4 mg Q6H PRN IVP Nausea & Vomiting 09/24/18 12:15 10/07/18 12:14 Pantoprazole (Protonix) 40 mg Q12HR IVP 09/24/18 21:00 10/08/18 08:59 10/03/18 08:40 Phytonadione (Vitamin K) 10 mg QWEEK SUBQ 09/30/18 09:00 10/30/18 08:59 09/30/18 08:09 Piperacillin Sod/ Tazobactam Sod 3.375 gm/Sodium Chloride 110 ml @ 27.5 mls/hr EVERY 8 HOURS IVPB 09/24/18 14:00 10/07/18 13:59 10/03/18 05:52 Polyethylene Glycol (Miralax) 17 gm DAILYPRN PRN ORAL Constipation 09/24/18 12:15 10/07/18 12:14 Potassium Chloride 100 ml @ 50 mls/hr Q2H IVPB 10/03/18 10:00 10/03/18 13:59 10/03/18 10:02 Risperidone (RisperDAL) 0.25 mg QHS ORAL 09/24/18 21:00 10/10/18 20:59 09/27/18 20:04 Sodium Chloride 500 ml @ 999 mls/hr Q31M PRN IV SBP<90mmHg 09/24/18 12:15 10/08/18 10:59 Kell Larkin M.D. Oct 03, 2018 10:46
[2018-10-03 12:00] VITALS: BP 136/86
[2018-10-03] MEDS ORDERED: Albuterol/Ipratropium 3ml neb HHN PRN (12:00)
--- NOTE | 2018-10-03 13:58 | General Progress Note ---
Progress Note Progress Note CT noted will need to hold on G tube for now given gastric inflammation no large abscess noted labs improving TPN IV Abx midline wound dressings changes d/c planning Isreal Lynne Oct 03, 2018 13:58
--- NOTE | 2018-10-03 14:08 | Cardiac Electrophysiology PN ---
Assessment/Plan Assessment/Plan 1. S/P Septic and hemorrhagic shock with Lactic acidosis. On Abx and S/P PRBC 2. Sinus tachycardia in 140s due to sepsis, anemia and dehydration. No fibrillation. EF 75%. 3. Troponin elevation due to renal failure. EF 75%. 4. VDRF. S/P Tracheostomy 09/22/18 5. Rhabdomyolysis with CPK in thousands contributing to renal failure. 6. Acute renal failure and severe hyperkalemia. FU by Dr. Smalls 7. Dysphagia, Hx of PEG placement but was dislodged. S/P exploratory laparotomy, repair of gastric perforation, evacuation of perisplenic abscess, splenectomy 09/23/[address] Smalls Both drains still draining FU Dr Contreras 8. GI bleed. S/P EGD by Dr. Horton. S/p PRBCs DW RN Subjective Subjective On the Vent via tracheostomy still draining from both abdominal drains. On TPN and Lipid. Objective Last 24 Hour Vital Signs Date Time Temp Pulse Resp B/P (MAP) Pulse Ox O2 Delivery O2 Flow Rate FiO2 10/03/18 13:23 91 17 30 10/03/18 12:00 Mechanical Ventilator Mechanical Ventilator 10/03/18 12:00 30 10/03/18 12:00 98.8 96 18 136/86 99 Mechanical Ventilator 30 10/03/18 11:03 91 13 30 10/03/18 09:27 89 16 30 10/03/18 08:00 Mechanical Ventilator Mechanical Ventilator 10/03/18 08:00 30 10/03/18 08:00 89 10/03/18 08:00 98.8 88 16 136/84 97 Mechanical Ventilator 30 10/03/18 07:14 97 17 30 10/03/18 05:03 97 15 30 10/03/18 04:00 30 10/03/18 04:00 Mechanical Ventilator Mechanical Ventilator 10/03/18 04:00 99 10/03/18 04:00 98.4 105 20 129/81 99 Mechanical Ventilator 30 10/03/18 03:05 98 15 30 10/03/18 00:49 109 17 30 10/03/18 00:00 Mechanical Ventilator Mechanical Ventilator 10/03/18 00:00 99.7 108 16 130/81 98 Mechanical Ventilator 30 10/03/18 00:00 114 10/02/18 23:17 108 15 30 10/02/18 21:03 121 23 30 10/02/18 20:00 Mechanical Ventilator Mechanical Ventilator 10/02/18 20:00 98.9 115 16 135/95 99 Mechanical Ventilator 30 10/02/18 20:00 30 10/02/18 20:00 109 10/02/18 19:18 117 19 30 10/02/18 17:14 109 22 30 10/02/18 16:00 Mechanical Ventilator Mechanical Ventilator 10/02/18 16:00 30 10/02/18 16:00 105 10/02/18 16:00 98.6 104 18 151/93 100 Mechanical Ventilator 30 10/02/18 15:26 102 24 30 Intake and Output 10/02/18 10/03/18 19:00 07:00 Intake Total 1042.319 ml 957.0 ml Output Total 1710 ml 985 ml Balance -667.681 ml -28.0 ml IV Total 1042.319 ml 957.0 ml Output Urine Total 1600 ml 700 ml Stool Total 200 ml Drainage Total 110 ml 85 ml Laboratory Tests Test 10/03/18 03:30 White Blood Count 12.1 K/UL (4.8-10.8) H Red Blood Count 2.70 M/UL (4.70-6.10) L Hemoglobin 7.9 G/DL (14.2-18.0) L Hematocrit 24.1 % (42.0-52.0) L Mean Corpuscular Volume 89 FL (80-99) Mean Corpuscular Hemoglobin 29.4 PG (27.0-31.0) Mean Corpuscular Hemoglobin Concent 32.9 G/DL (32.0-36.0) Red Cell Distribution Width 13.1 % (11.6-14.8) Platelet Count 767 K/UL (150-450) H Mean Platelet Volume 7.0 FL (6.5-10.1) Neutrophils (%) (Auto) % (45.0-75.0) Lymphocytes (%) (Auto) % (20.0-45.0) Monocytes (%) (Auto) % (1.0-10.0) Eosinophils (%) (Auto) % (0.0-3.0) Basophils (%) (Auto) % (0.0-2.0) Differential Total Cells Counted 100 Neutrophils % (Manual) 75 % (45-75) Lymphocytes % (Manual) 13 % (20-45) L Monocytes % (Manual) 7 % (1-10) Eosinophils % (Manual) 5 % (0-3) H Basophils % (Manual) 0 % (0-2) Band Neutrophils 0 % (0-8) Platelet Estimate Increased H Platelet Morphology Normal Hypochromasia 1+ Sodium Level 144 MMOL/L (136-145) Potassium Level 3.1 MMOL/L (3.5-5.1) L Chloride Level 112 MMOL/L (98-107) H Carbon Dioxide Level 27 MMOL/L (21-32) Anion Gap 6 mmol/L (5-15) Blood Urea Nitrogen 11 mg/dL (7-18) Creatinine 1.0 MG/DL (0.55-1.30) Estimat Glomerular Filtration Rate > 60 mL/min (>60) Glucose Level 182 MG/DL (74-106) H Calcium Level 7.0 MG/DL (8.5-10.1) L Phosphorus Level 2.7 MG/DL (2.5-4.9) Magnesium Level 1.9 MG/DL (1.8-2.4) Total Bilirubin 0.2 MG/DL (0.2-1.0) Aspartate Amino Transf (AST/SGOT) 18 U/L (15-37) Alanine Aminotransferase (ALT/SGPT) 10 U/L (12-78) L Alkaline Phosphatase 79 U/L (46-116) Total Protein 5.2 G/DL (6.4-8.2) L Albumin 1.0 G/DL (3.4-5.0) L Globulin 4.2 g/dL Albumin/Globulin Ratio 0.2 (1.0-2.7) L Objective HEENT: S/P tracheostomy. LUNGS: Coarse rhonchi. CARDIOVASCULAR: Regular S1 and S2. ABDOMEN: Post op covered with dressing and 2 drains EXTREMITIES: No pitting edema. Jasbir Madsen MD Oct 03, 2018 14:08
--- NOTE | 2018-10-03 15:07 | Nephrology Progress Note ---
Assessment/Plan Problem List: (1) ATN (acute tubular necrosis) Assessment: Cr rising post op but lowering (2) Septic shock (3) Lactic acid acidosis (4) Metabolic acidosis (5) Hyperkalemia (6) G tube feedings (7) Acute respiratory failure Assessment post op 09/22/18: Trach, Splenectomy, Perf.... over all improved: cr rising again presented with Shock , likely septic Acute renal failure resolved Acute metabolic acidosis resolved Hyperkalemia PEG Recent Pneumonia Plan plan: K and Phos supplements on tpn now trached 09/22 post laparatomy 09/22 off pressors pulmonary support Fluid challenge as needed Silva K and Phos and Mag supplement as needed antibiotics monitor renal parameters and ABG poor prognosis Subjective ROS Limited/Unobtainable: Yes Objective Objective Last 24 Hour Vital Signs Date Time Temp Pulse Resp B/P (MAP) Pulse Ox O2 Delivery O2 Flow Rate FiO2 10/03/18 13:23 91 17 30 10/03/18 12:00 Mechanical Ventilator Mechanical Ventilator 10/03/18 12:00 30 10/03/18 12:00 98.8 96 18 136/86 99 Mechanical Ventilator 30 10/03/18 11:03 91 13 30 10/03/18 09:27 89 16 30 10/03/18 08:00 Mechanical Ventilator Mechanical Ventilator 10/03/18 08:00 30 10/03/18 08:00 89 10/03/18 08:00 98.8 88 16 136/84 97 Mechanical Ventilator 30 10/03/18 07:14 97 17 30 10/03/18 05:03 97 15 30 10/03/18 04:00 30 10/03/18 04:00 Mechanical Ventilator Mechanical Ventilator 10/03/18 04:00 99 10/03/18 04:00 98.4 105 20 129/81 99 Mechanical Ventilator 30 10/03/18 03:05 98 15 30 10/03/18 00:49 109 17 30 10/03/18 00:00 Mechanical Ventilator Mechanical Ventilator 10/03/18 00:00 99.7 108 16 130/81 98 Mechanical Ventilator 30 10/03/18 00:00 114 10/02/18 23:17 108 15 30 10/02/18 21:03 121 23 30 10/02/18 20:00 Mechanical Ventilator Mechanical Ventilator 10/02/18 20:00 98.9 115 16 135/95 99 Mechanical Ventilator 30 10/02/18 20:00 30 10/02/18 20:00 109 10/02/18 19:18 117 19 30 10/02/18 17:14 109 22 30 10/02/18 16:00 Mechanical Ventilator Mechanical Ventilator 10/02/18 16:00 30 10/02/18 16:00 105 10/02/18 16:00 98.6 104 18 151/93 100 Mechanical Ventilator 30 10/02/18 15:26 102 24 30 Intake and Output 10/02/18 10/03/18 19:00 07:00 Intake Total 1042.319 ml 957.0 ml Output Total 1710 ml 985 ml Balance -667.681 ml -28.0 ml IV Total 1042.319 ml 957.0 ml Output Urine Total 1600 ml 700 ml Stool Total 200 ml Drainage Total 110 ml 85 ml Laboratory Tests 10/03/18 03:30: White Blood Count 12.1H, Red Blood Count 2.70L, Hemoglobin 7.9L, Hematocrit 24.1L, Mean Corpuscular Volume 89, Mean Corpuscular Hemoglobin 29.4, Mean Corpuscular Hemoglobin Concent 32.9, Red Cell Distribution Width 13.1, Platelet Count 767H, Mean Platelet Volume 7.0, Neutrophils (%) (Auto) , Lymphocytes (%) ( Auto) , Monocytes (%) (Auto) , Eosinophils (%) (Auto) , Basophils (%) (Auto) , Differential Total Cells Counted 100, Neutrophils % (Manual) 75, Lymphocytes % ( Manual) 13L, Monocytes % (Manual) 7, Eosinophils % (Manual) 5H, Basophils % ( Manual) 0, Band Neutrophils 0, Platelet Estimate IncreasedH, Platelet Morphology Normal, Hypochromasia 1+, Sodium Level 144, Potassium Level 3.1L, Chloride Level 112H, Carbon Dioxide Level 27, Anion Gap 6, Blood Urea Nitrogen 11, Creatinine 1.0, Estimat Glomerular Filtration Rate > 60, Glucose Level 182H , Calcium Level 7.0L, Phosphorus Level 2.7, Magnesium Level 1.9, Total Bilirubin 0.2, Aspartate Amino Transf (AST/SGOT) 18, Alanine Aminotransferase ( ALT/SGPT) 10L, Alkaline Phosphatase 79, Total Protein 5.2L, Albumin 1.0L, Globulin 4.2, Albumin/Globulin Ratio 0.2L Height (Feet): 5 Height (Inches): 5.00 Weight (Pounds): 158 General Appearance: no apparent distress Cardiovascular: tachycardia Respiratory/Chest: decreased breath sounds Abdomen: distended Objective no other changes Josesito Smalls MD Oct 03, 2018 15:07
[2018-10-03 16:00] VITALS: BP 152/92
[2018-10-03] MEDS: Micafungin 100 MG in NS 110 ML IVPB SCH (17:19)
[2018-10-03 20:00] VITALS: BP 140/85
[2018-10-03] MEDS: Dyna-Hex 2% Top Sol 2oz TOPIC SCH (21:00)
[2018-10-04] VITALS: BP 130/88
[2018-10-04] MEDS: NovoLOG Insulin Flexpen SUBQ SCH ×5 (00:12→23:54)
[2018-10-04 04:00] VITALS: BP 134/83
[2018-10-04 04:49] LABS: BASOPHILS % (AUTO) 2.2 % (0.0-2.0); EOSINOPHILS % (AUTO) 5.7 % (0.0-3.0); HEMATOCRIT 24.5 % (42.0-52.0); HEMOGLOBIN 8.4 G/DL (14.2-18.0); LYMPHOCYTES % (AUTO) 8.3 % (20.0-45.0); MEAN CORPUSCULAR VOLUME 96 FL (80-99); MONOCYTES % (AUTO) 8.6 % (1.0-10.0); NEUTROPHILS % (AUTO) 75.3 % (45.0-75.0); PLATELET COUNT 785 K/UL (150-450); RED BLOOD COUNT 2.55 M/UL (4.70-6.10); RED CELL DISTRIBUTION WIDTH 13.8 % (11.6-14.8); WHITE BLOOD COUNT 11.4 K/UL (4.8-10.8)
[2018-10-04] MEDS: FAT EMULSION 20% IV SCH (04:50)
[2018-10-04] MEDS: TPN IV SCH (04:50)
[2018-10-04] MEDS: Piperacillin/Tazobactam 3.375 GM in NS 110 ML IVPB SCH ×3 (05:08→21:13)
--- NOTE | 2018-10-04 07:58 | General Progress Note ---
Assessment/Plan Problem List: (1) UTI (urinary tract infection) ICD Codes: N39.0 - Urinary tract infection, site not specified SNOMED: 57763619 (2) Renal failure ICD Codes: N19 - Unspecified kidney failure SNOMED: 09704295 (3) Anemia ICD Codes: D64.9 - Anemia, unspecified SNOMED: 082967035 (4) Acute respiratory failure ICD Codes: J96.00 - Acute respiratory failure, unspecified whether with hypoxia or hypercapnia SNOMED: 48403949 (5) Pneumonia ICD Codes: J18.9 - Pneumonia, unspecified organism SNOMED: 944458235 (6) Septic shock ICD Codes: A41.9 - Sepsis, unspecified organism; R65.21 - Severe sepsis with septic shock SNOMED: 68379906 (7) ATN (acute tubular necrosis) ICD Codes: N17.0 - Acute kidney failure with tubular necrosis SNOMED: 29501453 Status: unchanged Assessment/Plan vent abx wound care neph f/u gi eval cbc bmp am dc plan if clear Subjective Constitutional: Reports: weakness Allergies: Coded Allergies: No Known Allergies (Unverified , 08/14/18) All Systems: reviewed and negative except above Subjective trach vent altered Objective Last 24 Hour Vital Signs Date Time Temp Pulse Resp B/P (MAP) Pulse Ox O2 Delivery O2 Flow Rate FiO2 10/04/18 06:57 95 14 30 10/04/18 05:30 87 14 30 10/04/18 04:00 30 10/04/18 04:00 98.2 86 14 134/83 99 Mechanical Ventilator 30 10/04/18 04:00 Mechanical Ventilator Mechanical Ventilator 10/04/18 03:33 88 10/04/18 03:10 94 15 30 10/04/18 00:17 93 18 30 10/04/18 00:00 Mechanical Ventilator Mechanical Ventilator 10/04/18 00:00 98.1 86 15 130/88 100 Mechanical Ventilator 30 10/04/18 00:00 30 10/03/18 23:41 87 10/03/18 23:04 100 17 30 10/03/18 21:20 94 16 Mechanical Ventilator 30 10/03/18 21:00 100 16 30 10/03/18 20:00 30 10/03/18 20:00 98.4 100 15 140/85 99 Mechanical Ventilator 30 10/03/18 20:00 Mechanical Ventilator Mechanical Ventilator 10/03/18 19:42 88 10/03/18 18:50 92 14 30 10/03/18 17:29 97 15 30 10/03/18 16:00 Mechanical Ventilator Mechanical Ventilator 10/03/18 16:00 99.0 103 16 152/92 98 Mechanical Ventilator 30 10/03/18 16:00 30 10/03/18 15:54 92 10/03/18 15:20 92 16 30 10/03/18 13:23 91 17 30 10/03/18 12:00 Mechanical Ventilator Mechanical Ventilator 10/03/18 12:00 30 10/03/18 12:00 98.8 96 18 136/86 99 Mechanical Ventilator 30 10/03/18 11:32 97 10/03/18 11:03 91 13 30 10/03/18 09:27 89 16 30 10/03/18 08:00 Mechanical Ventilator Mechanical Ventilator 10/03/18 08:00 30 10/03/18 08:00 89 10/03/18 08:00 98.8 88 16 136/84 97 Mechanical Ventilator 30 Intake and Output 10/03/18 10/04/18 19:00 07:00 Intake Total 636 ml 886.5 ml Output Total 1160 ml 1185 ml Balance -524 ml -298.5 ml IV Total 636 ml 886.5 ml Output Urine Total 1000 ml 950 ml Stool Total 100 ml 150 ml Drainage Total 60 ml 85 ml Laboratory Tests 10/04/18 04:30: White Blood Count 11.4H, Red Blood Count 2.55L, Hemoglobin 8.4L, Hematocrit 24.5L, Mean Corpuscular Volume 96, Mean Corpuscular Hemoglobin 32.8H, Mean Corpuscular Hemoglobin Concent 34.2, Red Cell Distribution Width 13.8, Platelet Count 785H, Mean Platelet Volume 8.0, Neutrophils (%) (Auto) 75.3H, Lymphocytes (%) (Auto) 8.3L, Monocytes (%) (Auto) 8.6, Eosinophils (%) (Auto) 5.7H, Basophils (%) (Auto) 2.2H 10/04/18 05:29: Sodium Level [Pending], Potassium Level [Pending], Chloride Level [Pending], Carbon Dioxide Level [Pending], Blood Urea Nitrogen [Pending], Creatinine [ Pending], Estimat Glomerular Filtration Rate [Pending], Glucose Level [Pending] , Calcium Level [Pending] Height (Feet): 5 Height (Inches): 5.00 Weight (Pounds): 156 General Appearance: lethargic EENT: normal ENT inspection Neck: normal alignment Cardiovascular: normal peripheral pulses, normal rate, regular rhythm Respiratory/Chest: chest wall non-tender, lungs clear, normal breath sounds Abdomen: normal bowel sounds, non tender, soft Extremities: normal inspection Edema: no edema noted Arm (L), no edema noted Arm (R), no edema noted Leg (L), no edema noted Leg (R), no edema noted Pedal (L), no edema noted Pedal (R), no edema noted Generalized Neurologic: motor weakness Skin: normal pigmentation, warm/dry Jasmeet Reynoso DO Oct 04, 2018 07:58
[2018-10-04 08:00] VITALS: BP 135/89
[2018-10-04] MEDS: Pantoprazole Inj IVP SCH ×2 (08:16→21:13)
[2018-10-04] MEDS: Heparin 5000 units/ml inj SUBQ SCH ×2 (08:17→21:00)
--- NOTE | 2018-10-04 08:42 | Pulmonology Progress Note ---
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 prob PNA, s/p Rx acute renal failure/ATN -resolved troponin elevation due to renal failure pulmonary HTN rhabdo ( contributing to acute renal failure along with sepsis) lactic acidosis ST likely due to combined effect of sepsis, anemia and dehydration GI bleeding s/p EGD esophagitis dysphagia, G tube ( now removed due to dislodgement) DM HTN pulmonary hypertension paranoid schizophrenia with acute exacerbation diarrhea- stool C dif negative anemia st 3 R hip decub, POA severe protein calorie malnutrition PLAN OF CARE ROBBIE vent support trach care pulm toilet fup with CXR in am no signs of respiratory distress on current settings strict aspiration precaution TPN for now monitor renal parameters and electrolytes , replace electrolytes in TPN as per nephro /GI recs surgery follows abx as per ID recs in the setting of stomach perforation and intraabdominal fluid collections minimum of 2 weeks, but per ID recs continue abx until drains removed monitor H&H with goal to keep hemoglobin above 7, anemia w/up c/ anemia of chronic disease stool OB x 2 negative Hgb up to 8.4 this am BS management with SSI BP management , stable cardio follows ECHO with pEF 60-65%,. midl to moderate MR and moderate pulm HTN ST likely due to sepsis, dehydration and anemia , no evidence of A fib on tele - as per cardio pain management wound care supportive care CT A/P with gastric inflammation , no signif abscess, per surgery recs hold on GT placement for now will need TPN for some time LTAC? case discussed and evaluated by supervising physician CT abdomen 10/02 -Abnormal appearance of small bowel and large bowel showing wall thickening and enhancement may be related to enteritis and/or colitis GI follows Subjective Allergies: Coded Allergies: No Known Allergies (Unverified , 08/14/18) Subjective still mild leukocytosis, afebrile no signs of resp distress on current setting remains on TPN Objective Last 24 Hour Vital Signs Date Time Temp Pulse Resp B/P (MAP) Pulse Ox O2 Delivery O2 Flow Rate FiO2 10/04/18 06:57 95 14 30 10/04/18 05:30 87 14 30 10/04/18 04:00 30 10/04/18 04:00 98.2 86 14 134/83 99 Mechanical Ventilator 30 10/04/18 04:00 Mechanical Ventilator Mechanical Ventilator 10/04/18 03:33 88 10/04/18 03:10 94 15 30 10/04/18 00:17 93 18 30 10/04/18 00:00 Mechanical Ventilator Mechanical Ventilator 10/04/18 00:00 98.1 86 15 130/88 100 Mechanical Ventilator 30 10/04/18 00:00 30 10/03/18 23:41 87 10/03/18 23:04 100 17 30 10/03/18 21:20 94 16 Mechanical Ventilator 30 10/03/18 21:00 100 16 30 10/03/18 20:00 30 10/03/18 20:00 98.4 100 15 140/85 99 Mechanical Ventilator 30 10/03/18 20:00 Mechanical Ventilator Mechanical Ventilator 10/03/18 19:42 88 10/03/18 18:50 92 14 30 10/03/18 17:29 97 15 30 10/03/18 16:00 Mechanical Ventilator Mechanical Ventilator 10/03/18 16:00 99.0 103 16 152/92 98 Mechanical Ventilator 30 10/03/18 16:00 30 10/03/18 15:54 92 10/03/18 15:20 92 16 30 10/03/18 13:23 91 17 30 10/03/18 12:00 Mechanical Ventilator Mechanical Ventilator 10/03/18 12:00 30 10/03/18 12:00 98.8 96 18 136/86 99 Mechanical Ventilator 30 10/03/18 11:32 97 10/03/18 11:03 91 13 30 10/03/18 09:27 89 16 30 Intake and Output 10/03/18 10/04/18 19:00 07:00 Intake Total 636 ml 886.5 ml Output Total 1160 ml 1185 ml Balance -524 ml -298.5 ml IV Total 636 ml 886.5 ml Output Urine Total 1000 ml 950 ml Stool Total 100 ml 150 ml Drainage Total 60 ml 85 ml Objective General Appearance: no acute distress, - on Vent AC 500-12-30% HEENT: normocephalic, atraumatic, anicteric, status post trach - Shiley #8, secretions scant, white, thin Respiratory/Chest: lungs clear, no respiratory distress, no accessory muscle use Cardiovascular: normal rate - SR on tele , no JVD Abdomen: 2 abd drains , abdomen soft, mild distention, tender around incision Genitourinary: Silva Extremities: no edema, pedal pulses normal Skin: st 3 R hip decub POA Neurologic/Psychiatric: abnormal gait Musculoskeletal: normal muscle bulk Laboratory Tests 10/04/18 04:30: White Blood Count 11.4H, Red Blood Count 2.55L, Hemoglobin 8.4L, Hematocrit 24.5L, Mean Corpuscular Volume 96, Mean Corpuscular Hemoglobin 32.8H, Mean Corpuscular Hemoglobin Concent 34.2, Red Cell Distribution Width 13.8, Platelet Count 785H, Mean Platelet Volume 8.0, Neutrophils (%) (Auto) 75.3H, Lymphocytes (%) (Auto) 8.3L, Monocytes (%) (Auto) 8.6, Eosinophils (%) (Auto) 5.7H, Basophils (%) (Auto) 2.2H 10/04/18 05:29: Sodium Level [Pending], Potassium Level [Pending], Chloride Level [Pending], Carbon Dioxide Level [Pending], Blood Urea Nitrogen [Pending], Creatinine [ Pending], Estimat Glomerular Filtration Rate [Pending], Glucose Level [Pending] , Calcium Level [Pending] 10/04/18 08:13: Sodium Level [Pending], Potassium Level [Pending], Chloride Level [Pending], Carbon Dioxide Level [Pending], Blood Urea Nitrogen [Pending], Creatinine [ Pending], Estimat Glomerular Filtration Rate [Pending], Glucose Level [Pending] , Calcium Level [Pending], Total Bilirubin [Pending], Aspartate Amino Transf ( AST/SGOT) [Pending], Alanine Aminotransferase (ALT/SGPT) [Pending], Alkaline Phosphatase [Pending], Total Protein [Pending], Albumin [Pending], Globulin [ Pending] Current Medications Medications (Trade) Dose Ordered Sig/Julito Route PRN Reason Start Time Stop Time Status Last Admin Dose Admin Acetaminophen (Tylenol) 650 mg Q4H PRN NG Mild Pain/Temp > 100.5 09/24/18 12:15 10/08/18 12:14 Acetaminophen (Tylenol) 650 mg Q4H PRN RECTAL Mild Pain (Pain Scale 1-3) 09/25/18 21:00 10/25/18 20:59 09/25/18 21:17 Albuterol/ Ipratropium (Albuterol/ Ipratropium) 3 ml Q4HRT PRN HHN sob 10/03/18 12:00 10/08/18 11:59 Chlorhexidine Gluconate (Camila-Hex 2%) 1 applic DAILY@2000 TOPIC 09/24/18 20:00 10/15/18 19:59 10/03/18 21:00 Dextrose (Dextrose 50%) 25 ml Q30M PRN IV Hypoglycemia 09/24/18 12:30 10/08/18 13:29 Dextrose (Dextrose 50%) 50 ml Q30M PRN IV Hypoglycemia 09/24/18 12:30 10/08/18 13:29 Fat Emulsion Intravenous 216 ml/Amino Acids/ Electrolytes/ Dextrose 1,608 ml @ 67 mls/hr Q24H IV 09/25/18 05:30 10/25/18 05:29 10/04/18 04:50 Heparin Sodium (Porcine) (Heparin 5000 units/ml) 5,000 units EVERY 12 HOURS SUBQ 09/24/18 21:00 10/07/18 20:59 10/03/18 20:59 Insulin Aspart (NovoLOG) Q6HR SUBQ 09/24/18 12:00 10/08/18 11:59 10/04/18 05:10 Loperamide HCl (Imodium) 4 mg TIDPRN PRN ORAL Diarrhea 09/24/18 12:15 10/10/18 12:14 Micafungin Sodium 100 mg/Sodium Chloride 110 ml @ 110 mls/hr Q24H IVPB 09/29/18 18:00 10/05/18 17:59 10/03/18 17:19 Ondansetron HCl (Zofran) 4 mg Q6H PRN IVP Nausea & Vomiting 09/24/18 12:15 10/07/18 12:14 Pantoprazole (Protonix) 40 mg Q12HR IVP 09/24/18 21:00 10/08/18 08:59 10/04/18 08:16 Phytonadione (Vitamin K) 10 mg QWEEK SUBQ 09/30/18 09:00 10/30/18 08:59 09/30/18 08:09 Piperacillin Sod/ Tazobactam Sod 3.375 gm/Sodium Chloride 110 ml @ 27.5 mls/hr EVERY 8 HOURS IVPB 09/24/18 14:00 10/07/18 13:59 10/04/18 05:08 Polyethylene Glycol (Miralax) 17 gm DAILYPRN PRN ORAL Constipation 09/24/18 12:15 10/07/18 12:14 Risperidone (RisperDAL) 0.25 mg QHS ORAL 09/24/18 21:00 10/10/18 20:59 09/27/18 20:04 Sodium Chloride 500 ml @ 999 mls/hr Q31M PRN IV SBP<90mmHg 09/24/18 12:15 10/08/18 10:59 Heidi Kamara ACADEMIC MANAGER Oct 04, 2018 08:42
[2018-10-04 08:43] LABS: ANION GAP 5 mmol/L (5-15); BLOOD UREA NITROGEN 10 mg/dL (7-18); CALCIUM 7.2 MG/DL (8.5-10.1); CARBON DIOXIDE 25 MMOL/L (21-32); CHLORIDE 112 MMOL/L (98-107); CREATININE 0.9 MG/DL (0.55-1.30); POTASSIUM 3.9 MMOL/L (3.5-5.1); SODIUM 142 MMOL/L (136-145)
[2018-10-04 08:49] LABS: ALANINE AMINOTRANSFERASE 11 U/L (12-78); ALBUMIN 0.9 G/DL (3.4-5.0); ALBUMIN/GLOBULIN RATIO 0.2 (1.0-2.7); ALKALINE PHOSPHATASE 80 U/L (46-116); ASPARTATE AMINO TRANSFERASE 22 U/L (15-37); BILIRUBIN,TOTAL 0.3 MG/DL (0.2-1.0)
[2018-10-04 12:00] VITALS: BP 135/96
--- NOTE | 2018-10-04 15:48 | Cardiac Electrophysiology PN ---
Assessment/Plan Assessment/Plan 1. S/P Septic and hemorrhagic shock with Lactic acidosis. On Abx and S/P PRBC 2. Sinus tachycardia in 140s due to sepsis, anemia and dehydration. No fibrillation. EF 75%. 3. Troponin elevation due to renal failure. EF 75%. 4. VDRF. S/P Tracheostomy 09/22/18 5. Rhabdomyolysis with CPK in thousands contributing to renal failure. 6. Acute renal failure and severe hyperkalemia. FU by Dr. Smalls 7. Dysphagia, Hx of PEG placement but was dislodged. S/P exploratory laparotomy, repair of gastric perforation, evacuation of perisplenic abscess, splenectomy 09/23/[address] Smalls Both drains still draining FU Dr Contreras. Incision slightly oozing 8. GI bleed. S/P EGD by Dr. Horton. S/p PRBCs DW RN Subjective Subjective On the Vent via tracheostomy still draining from both abdominal drains and incision oozing. On TPN and Lipid. Objective Last 24 Hour Vital Signs Date Time Temp Pulse Resp B/P (MAP) Pulse Ox O2 Delivery O2 Flow Rate FiO2 10/04/18 13:21 97 14 30 10/04/18 12:00 30 10/04/18 12:00 99.0 94 14 135/96 99 Mechanical Ventilator 30 10/04/18 12:00 Mechanical Ventilator Mechanical Ventilator 10/04/18 11:31 104 10/04/18 11:05 100 14 30 10/04/18 09:24 102 15 30 10/04/18 08:00 30 10/04/18 08:00 63 10/04/18 08:00 98.2 95 14 135/89 95 Mechanical Ventilator 30 10/04/18 08:00 91 10/04/18 08:00 Mechanical Ventilator Mechanical Ventilator 10/04/18 06:57 95 14 30 10/04/18 05:30 87 14 30 10/04/18 04:00 30 10/04/18 04:00 98.2 86 14 134/83 99 Mechanical Ventilator 30 10/04/18 04:00 Mechanical Ventilator Mechanical Ventilator 10/04/18 03:33 88 10/04/18 03:10 94 15 30 10/04/18 00:17 93 18 30 10/04/18 00:00 Mechanical Ventilator Mechanical Ventilator 10/04/18 00:00 98.1 86 15 130/88 100 Mechanical Ventilator 30 10/04/18 00:00 30 10/03/18 23:41 87 10/03/18 23:04 100 17 30 10/03/18 21:20 94 16 Mechanical Ventilator 30 10/03/18 21:00 100 16 30 10/03/18 20:00 30 10/03/18 20:00 98.4 100 15 140/85 99 Mechanical Ventilator 30 10/03/18 20:00 Mechanical Ventilator Mechanical Ventilator 10/03/18 19:42 88 10/03/18 18:50 92 14 30 10/03/18 17:29 97 15 30 10/03/18 16:00 Mechanical Ventilator Mechanical Ventilator 10/03/18 16:00 99.0 103 16 152/92 98 Mechanical Ventilator 30 10/03/18 16:00 30 10/03/18 15:54 92 Intake and Output 10/03/18 10/04/18 18:59 06:59 Intake Total 636 ml 886.5 ml Output Total 1160 ml 1185 ml Balance -524 ml -298.5 ml IV Total 636 ml 886.5 ml Output Urine Total 1000 ml 950 ml Stool Total 100 ml 150 ml Drainage Total 60 ml 85 ml Laboratory Tests Test 10/04/18 04:30 10/04/18 08:13 White Blood Count 11.4 K/UL (4.8-10.8) H Red Blood Count 2.55 M/UL (4.70-6.10) L Hemoglobin 8.4 G/DL (14.2-18.0) L Hematocrit 24.5 % (42.0-52.0) L Mean Corpuscular Volume 96 FL (80-99) Mean Corpuscular Hemoglobin 32.8 PG (27.0-31.0) H Mean Corpuscular Hemoglobin Concent 34.2 G/DL (32.0-36.0) Red Cell Distribution Width 13.8 % (11.6-14.8) Platelet Count 785 K/UL (150-450) H Mean Platelet Volume 8.0 FL (6.5-10.1) Neutrophils (%) (Auto) 75.3 % (45.0-75.0) H Lymphocytes (%) (Auto) 8.3 % (20.0-45.0) L Monocytes (%) (Auto) 8.6 % (1.0-10.0) Eosinophils (%) (Auto) 5.7 % (0.0-3.0) H Basophils (%) (Auto) 2.2 % (0.0-2.0) H Sodium Level 142 MMOL/L (136-145) Potassium Level 3.9 MMOL/L (3.5-5.1) Chloride Level 112 MMOL/L (98-107) H Carbon Dioxide Level 25 MMOL/L (21-32) Anion Gap 5 mmol/L (5-15) Blood Urea Nitrogen 10 mg/dL (7-18) Creatinine 0.9 MG/DL (0.55-1.30) Estimat Glomerular Filtration Rate > 60 mL/min (>60) Glucose Level 205 MG/DL (74-106) H Calcium Level 7.2 MG/DL (8.5-10.1) L Total Bilirubin 0.3 MG/DL (0.2-1.0) Aspartate Amino Transf (AST/SGOT) 22 U/L (15-37) Alanine Aminotransferase (ALT/SGPT) 11 U/L (12-78) L Alkaline Phosphatase 80 U/L (46-116) Total Protein 5.4 G/DL (6.4-8.2) L Albumin 0.9 G/DL (3.4-5.0) L Globulin 4.5 g/dL Albumin/Globulin Ratio 0.2 (1.0-2.7) L Objective HEENT: S/P tracheostomy. LUNGS: Coarse rhonchi. CARDIOVASCULAR: Regular S1 and S2. ABDOMEN: Incision slightly oozing and has 2 drains EXTREMITIES: No pitting edema. Jasbir Madsen MD Oct 04, 2018 15:48
[2018-10-04 16:00] VITALS: BP 142/84
[2018-10-04] MEDS: Micafungin 100 MG in NS 110 ML IVPB SCH (17:37)
--- NOTE | 2018-10-04 17:42 | Nephrology Progress Note ---
Assessment/Plan Problem List: (1) ATN (acute tubular necrosis) Assessment: Cr rising post op but lowering (2) Septic shock (3) Lactic acid acidosis (4) Metabolic acidosis (5) Hyperkalemia (6) G tube feedings (7) Acute respiratory failure Assessment post op 09/22/18: Trach, Splenectomy, Perf.... over all improved: cr rising again presented with Shock , likely septic Acute renal failure resolved Acute metabolic acidosis resolved Hyperkalemia PEG Recent Pneumonia Plan plan: K and Phos supplements as needed on tpn now trached 09/22 post laparatomy 09/22 off pressors pulmonary support Fluid challenge as needed Silva K and Phos and Mag supplement as needed antibiotics monitor renal parameters and ABG poor prognosis Subjective ROS Limited/Unobtainable: Yes Objective Objective Last 24 Hour Vital Signs Date Time Temp Pulse Resp B/P (MAP) Pulse Ox O2 Delivery O2 Flow Rate FiO2 10/04/18 17:07 102 15 30 10/04/18 16:00 98.1 97 20 142/84 99 Mechanical Ventilator 30 10/04/18 16:00 30 10/04/18 16:00 Mechanical Ventilator Mechanical Ventilator 10/04/18 14:44 99 15 30 10/04/18 13:21 97 14 30 10/04/18 12:00 30 10/04/18 12:00 99.0 94 14 135/96 99 Mechanical Ventilator 30 10/04/18 12:00 Mechanical Ventilator Mechanical Ventilator 10/04/18 11:31 104 10/04/18 11:05 100 14 30 10/04/18 09:24 102 15 30 10/04/18 08:00 30 10/04/18 08:00 63 10/04/18 08:00 98.2 95 14 135/89 95 Mechanical Ventilator 30 10/04/18 08:00 91 10/04/18 08:00 Mechanical Ventilator Mechanical Ventilator 10/04/18 06:57 95 14 30 10/04/18 05:30 87 14 30 10/04/18 04:00 30 10/04/18 04:00 98.2 86 14 134/83 99 Mechanical Ventilator 30 10/04/18 04:00 Mechanical Ventilator Mechanical Ventilator 10/04/18 03:33 88 10/04/18 03:10 94 15 30 10/04/18 00:17 93 18 30 10/04/18 00:00 Mechanical Ventilator Mechanical Ventilator 10/04/18 00:00 98.1 86 15 130/88 100 Mechanical Ventilator 30 10/04/18 00:00 30 10/03/18 23:41 87 10/03/18 23:04 100 17 30 10/03/18 21:20 94 16 Mechanical Ventilator 30 10/03/18 21:00 100 16 30 10/03/18 20:00 30 10/03/18 20:00 98.4 100 15 140/85 99 Mechanical Ventilator 30 10/03/18 20:00 Mechanical Ventilator Mechanical Ventilator 10/03/18 19:42 88 10/03/18 18:50 92 14 30 Intake and Output 10/03/18 10/04/18 19:00 07:00 Intake Total 636 ml 886.5 ml Output Total 1160 ml 1185 ml Balance -524 ml -298.5 ml IV Total 636 ml 886.5 ml Output Urine Total 1000 ml 950 ml Stool Total 100 ml 150 ml Drainage Total 60 ml 85 ml Laboratory Tests 10/04/18 04:30: White Blood Count 11.4H, Red Blood Count 2.55L, Hemoglobin 8.4L, Hematocrit 24.5L, Mean Corpuscular Volume 96, Mean Corpuscular Hemoglobin 32.8H, Mean Corpuscular Hemoglobin Concent 34.2, Red Cell Distribution Width 13.8, Platelet Count 785H, Mean Platelet Volume 8.0, Neutrophils (%) (Auto) 75.3H, Lymphocytes (%) (Auto) 8.3L, Monocytes (%) (Auto) 8.6, Eosinophils (%) (Auto) 5.7H, Basophils (%) (Auto) 2.2H 10/04/18 08:13: Sodium Level 142, Potassium Level 3.9, Chloride Level 112H, Carbon Dioxide Level 25, Anion Gap 5, Blood Urea Nitrogen 10, Creatinine 0.9, Estimat Glomerular Filtration Rate > 60, Glucose Level 205H, Calcium Level 7.2L, Total Bilirubin 0.3, Aspartate Amino Transf (AST/SGOT) 22, Alanine Aminotransferase ( ALT/SGPT) 11L, Alkaline Phosphatase 80, Total Protein 5.4L, Albumin 0.9L, Globulin 4.5, Albumin/Globulin Ratio 0.2L Height (Feet): 5 Height (Inches): 5.00 Weight (Pounds): 156 General Appearance: no apparent distress EENT: other - trach Respiratory/Chest: decreased breath sounds Abdomen: distended Objective no other changes Josesito Smalls MD Oct 04, 2018 17:42
--- NOTE | 2018-10-04 19:00 | Progress Note ---
DATE: 10/04/2018 SUBJECTIVE: septic shock, anemia, and GI bleeding. He has altered mental status and the patient's cognition has declined below his baseline. That is why his attending has continued to request daily psychiatric consultation to go work with him to help stabilizes mood to prevent any further decline in his cognition. DIAGNOSIS: Paranoid schizophrenia with acute exacerbation. PLAN: Treat him with Risperdal 0.25 mg at bedtime. A 20 minutes of really-based supportive psychotherapy was provided. Chart reviewed and discussed with staff. . Virgie Mcdermott M.D. DR: LUCIAN JOB#: [id number] CC:
[2018-10-04 20:00] VITALS: BP 129/74
[2018-10-04] MEDS: Dyna-Hex 2% Top Sol 2oz TOPIC SCH (21:13)
[2018-10-05] VITALS: BP_SYST 129; BP_DIAS 81; BP_DIAS 84
[2018-10-05 04:00] VITALS: BP 122/88
[2018-10-05] MEDS: FAT EMULSION 20% IV SCH (04:38)
[2018-10-05] MEDS: TPN IV SCH (04:38)
[2018-10-05 04:46] LABS: HEMATOCRIT 22.7 % (42.0-52.0); HEMOGLOBIN 7.4 G/DL (14.2-18.0); MEAN CORPUSCULAR VOLUME 90 FL (80-99); PLATELET COUNT 805 K/UL (150-450); RED BLOOD COUNT 2.53 M/UL (4.70-6.10); RED CELL DISTRIBUTION WIDTH 12.7 % (11.6-14.8)
[2018-10-05] MEDS: Piperacillin/Tazobactam 3.375 GM in NS 110 ML IVPB SCH ×3 (05:03→21:58)
[2018-10-05] MEDS: NovoLOG Insulin Flexpen SUBQ SCH ×4 (05:04→23:34)
[2018-10-05 05:19] LABS: ALANINE AMINOTRANSFERASE 14 U/L (12-78); ALBUMIN 0.9 G/DL (3.4-5.0); ALBUMIN/GLOBULIN RATIO 0.2 (1.0-2.7); ALKALINE PHOSPHATASE 84 U/L (46-116); ANION GAP 6 mmol/L (5-15); ASPARTATE AMINO TRANSFERASE 15 U/L (15-37); BILIRUBIN,TOTAL 0.2 MG/DL (0.2-1.0); BLOOD UREA NITROGEN 10 mg/dL (7-18); CALCIUM 7.1 MG/DL (8.5-10.1); CARBON DIOXIDE 28 MMOL/L (21-32); CHLORIDE 110 MMOL/L (98-107); PHOSPHORUS 2.2 MG/DL (2.5-4.9); POTASSIUM 3.4 MMOL/L (3.5-5.1); SODIUM 143 MMOL/L (136-145)
--- NOTE | 2018-10-05 07:45 | Progress Note ---
DATE: 10/05/2018 SUBJECTIVE: This is a 62-year-old patient with septic shock. The patient is in ICU step-down unit currently. I saw him and assessed him. He is still very confused, disorganized, mood labile. MENTAL STATUS EXAMINATION: A 62-year-old male. Appearance is disheveled. Attitude, irritable and agitated. Affect, guarded and restricted. Intellect poor. Mood, depressed and anxious. Motor activity, psychomotor agitation. Insight and judgment is poor. DIAGNOSIS: Paranoid schizophrenia with acute exacerbation, rule out dementia with psychosis. PLAN: Treat him with Risperdal 0.25 mg nightly to stabilize his mood and reduce psychosis. Provided him with 20 minutes of behavioral management. Seen and assessed at bedside. He has altered mental status currently, but he has decline in cognition. That is the reason why his attending has requested daily psychiatric consultation. Chart was reviewed and discussed with staff. Seen and assessed in his room. Virgie Mcdermott M.D. DR: Reggie JOB#: [id number] CC:
[2018-10-05 08:00] VITALS: BP 118/79
[2018-10-05] MEDS: Heparin 5000 units/ml inj SUBQ SCH ×2 (09:00→20:20)
[2018-10-05] MEDS: Pantoprazole Inj IVP SCH ×2 (09:00→20:20)
[2018-10-05] MEDS ORDERED: NS 275ml ONE (10:57)
[2018-10-05] MEDS ORDERED: Potassium Phosphate 30 MM in NS 275 ML IV ONE (11:00)
--- NOTE | 2018-10-05 11:42 | Pulmonolgy Critical Care Note ---
Critical Care - Asmt/Plan Problems: (1) Acute respiratory failure (2) Septic shock (3) ATN (acute tubular necrosis) (4) Metabolic acidosis (5) Gastric rupture Assessment/Plan: pt needs blood transfusion. He can not sign his own consents, since he is intubated and trached. Respiratory: adjust tidal volume, monitor respiratory rate, adjust FIO2, CXR Cardiac: continue to monitor HR/BP Renal: F/U I&O, keep IV fluid, check electrolytes Infectious Disease: continue antibiotics Gastrointestinal: continue feedings/current rate Endocrine: monitor blood sugar Hematologic: monitor H/H Neurologic: PRN Morphine, keep patient comfortable Prophylaxis: Protonix, Heparin Time Spent (Minutes): 40 Notes Reviewed: cloth feeder, renal Discussed with: nurses, consultants, manager case managementmanager fixed income - Objective Last 24 Hour Vital Signs Date Time Temp Pulse Resp B/P (MAP) Pulse Ox O2 Delivery O2 Flow Rate FiO2 10/05/18 11:16 91 13 30 10/05/18 09:00 60 15 30 10/05/18 08:00 98.0 101 18 118/79 99 Mechanical Ventilator 30 10/05/18 08:00 Mechanical Ventilator Mechanical Ventilator 10/05/18 08:00 95 10/05/18 08:00 30 10/05/18 07:25 94 15 30 10/05/18 05:30 97 18 30 10/05/18 04:00 101 10/05/18 04:00 30 10/05/18 04:00 97.4 108 18 122/88 99 Mechanical Ventilator 30 10/05/18 04:00 Mechanical Ventilator Mechanical Ventilator 10/05/18 03:30 104 21 30 10/05/18 01:30 108 20 30 10/05/18 00:00 Mechanical Ventilator Mechanical Ventilator 10/05/18 00:00 30 10/05/18 00:00 99 10/05/18 00:00 98.6 104 16 129/81 99 Mechanical Ventilator 30 10/04/18 23:30 113 21 30 10/04/18 21:09 120 29 30 10/04/18 20:00 99.1 107 17 129/74 99 Mechanical Ventilator 30 10/04/18 20:00 98 10/04/18 20:00 Mechanical Ventilator Mechanical Ventilator 10/04/18 20:00 30 10/04/18 19:30 98 15 30 10/04/18 17:07 102 15 30 10/04/18 16:00 98.1 97 20 142/84 99 Mechanical Ventilator 30 10/04/18 16:00 30 10/04/18 16:00 Mechanical Ventilator Mechanical Ventilator 10/04/18 15:38 101 10/04/18 14:44 99 15 30 10/04/18 13:21 97 14 30 10/04/18 12:00 30 10/04/18 12:00 99.0 94 14 135/96 99 Mechanical Ventilator 30 10/04/18 12:00 Mechanical Ventilator Mechanical Ventilator Status: awake Condition: critical HEENT: atraumatic Neck: full ROM Heart: HR/BP stable Abdomen: soft, active bowel sounds, feeding tube Extremities: edema Accucheck: 124 Critical Care - Subjective ROS Limited/Unobtainable: Yes Condition: critical EKG Rhythm: Sinus Rhythm FI02: 30 Vent Support Breath Rate: 12 Vent Support Mode: AC Vent Tidal Volume: 500 Sputum Amount: Small PEEP: 0.0 PIP: 21 Fluids: TPN Tube Feeding Amount: 0 I&O: Intake and Output 10/04/18 10/05/18 19:00 07:00 Intake Total 657.916 ml 713.0 ml Output Total 1220 ml Balance -562.084 ml 713.0 ml IV Total 657.916 ml 713.0 ml Output Urine Total 1100 ml Drainage Total 120 ml CXR: no changes Labs: Laboratory Tests Test 10/05/18 03:15 White Blood Count 14.0 K/UL (4.8-10.8) H Red Blood Count 2.53 M/UL (4.70-6.10) L Hemoglobin 7.4 G/DL (14.2-18.0) L Hematocrit 22.7 % (42.0-52.0) L Mean Corpuscular Volume 90 FL (80-99) Mean Corpuscular Hemoglobin 29.1 PG (27.0-31.0) Mean Corpuscular Hemoglobin Concent 32.4 G/DL (32.0-36.0) Red Cell Distribution Width 12.7 % (11.6-14.8) Platelet Count 805 K/UL (150-450) H Mean Platelet Volume 6.5 FL (6.5-10.1) Neutrophils (%) (Auto) % (45.0-75.0) Lymphocytes (%) (Auto) % (20.0-45.0) Monocytes (%) (Auto) % (1.0-10.0) Eosinophils (%) (Auto) % (0.0-3.0) Basophils (%) (Auto) % (0.0-2.0) Differential Total Cells Counted 100 Neutrophils % (Manual) 77 % (45-75) H Lymphocytes % (Manual) 8 % (20-45) L Monocytes % (Manual) 6 % (1-10) Eosinophils % (Manual) 5 % (0-3) H Basophils % (Manual) 0 % (0-2) Metamyelocytes % 1 % (0-0) H Band Neutrophils 3 % (0-8) Platelet Estimate Increased H Platelet Morphology Giant Platelets Occasional Hypochromasia 1+ Sodium Level 143 MMOL/L (136-145) Potassium Level 3.4 MMOL/L (3.5-5.1) L Chloride Level 110 MMOL/L (98-107) H Carbon Dioxide Level 28 MMOL/L (21-32) Anion Gap 6 mmol/L (5-15) Blood Urea Nitrogen 10 mg/dL (7-18) Creatinine 1.0 MG/DL (0.55-1.30) Estimat Glomerular Filtration Rate > 60 mL/min (>60) Glucose Level 119 MG/DL (74-106) H Calcium Level 7.1 MG/DL (8.5-10.1) L Phosphorus Level 2.2 MG/DL (2.5-4.9) L Magnesium Level 1.4 MG/DL (1.8-2.4) L Total Bilirubin 0.2 MG/DL (0.2-1.0) Aspartate Amino Transf (AST/SGOT) 15 U/L (15-37) Alanine Aminotransferase (ALT/SGPT) 14 U/L (12-78) Alkaline Phosphatase 84 U/L (46-116) Total Protein 5.5 G/DL (6.4-8.2) L Albumin 0.9 G/DL (3.4-5.0) L Globulin 4.6 g/dL Albumin/Globulin Ratio 0.2 (1.0-2.7) L Po Li MD Oct 05, 2018 11:42
[2018-10-05 12:00] VITALS: BP 121/66
--- NOTE | 2018-10-05 13:05 | Diagnostic Imaging Report ---
Indication: Dyspnea Comparison: 09/29/2018 A single view chest radiograph was obtained. Findings: Lung volumes are very low. Hazy basilar opacities likely representing pleural effusions. PICC line tracheostomy appears stable. IMPRESSION: Very low lung volumes limiting evaluation. Probable interstitial edema
--- NOTE | 2018-10-05 13:13 | Infectious Diseases Prog Note ---
Assessment/Plan Assessment/Plan 62 yo male with PMHx of Quadriplegia with G-tube, HTN, DM and Schizophenia who was sent to the ED fromhis longterm for AMS. Displaced GT with perforation c/w peritonitis and hematoma/abscess formation -10/02 CT abd/p: Interval exploratory laparotomy, status post splenectomy, status post removal of gastrostomy tube with 2 abdominal drains noted. Abnormal appearance of the stomach with marked wall thickening and pneumatosis. Abnormal appearance of small bowel and large bowel showing wall thickening and enhancement may be related to enteritis and/or colitis. Trace ascites -09/22 SP Exploratory laparotomy. Repair of gastric perforation. Evacuation of abdominal omental / lesser sac hematoma. Evacuation of perisplenic hematoma/ abscess. Omentectomy. Splenectomy. Abdominal washout. Tracheostomy. -09/21 CT abd/p: The gastrostomy tube appears to be partially intraluminal and partially communicate with a large intramural collection involving mostly the inferior posterior wall of the stomach. There is some anterior wall pneumatosis. Contrast within the collection most likely represents instilled enteric contrast, but could also represent extravasated vascular contrast. There is evidence of rupture of this collection into the peritoneal space, with extravasated contrast in the left upper quadrant. There is anterior gastric wall intramural pneumatosis as well as a small amount of free extraluminal gas. Moderate ascites. Enhancement of much of the peritoneum raises concern for peritonitis. There may also be loculated intraperitoneal collections which could represent abscesses, predominantly adjacent to the tip of the right hepatic lobe, subcapsular in the spleen, and within the left upper quadrant. Thick-walled sigmoid colon, transverse colon and equivocally the proximal jejunum. Likely reactive related to the above, but could also indicate enteritis /colitis changes Septic shock 2ry to above, SP Leukocytosis, recurrent worsened-after procedure; increased -09/29 L ELISABET drain (+purulebnt fluid) cx : C. tropicalis -09/28 u/a neg, ucx NTD Bcx NTD CXR: Over one day, interim development of bilateral supraclavicular subcutaneous emphysema and pneumomediastinum, etiology not demonstrated. Persistent low lung volumes with basilar atelectatic changes and left-sided pleural effusion -09/20 ucx NTD; u/a neg -09/19 CXR: Bilateral pleural effusions and bibasilar atelectasis/airspace disease are stable. Low grade fever; SP Diarrhea- -09/27 Cdiff neg GIB Sepsis - Probably PNA , s/p Rx 09/22 CXR: Bilateral pleural effusions, basilar atelectatic changes, and interstitial congestive changes are stable CXR 09/07/18 - possible left sided consolidation Inf neg 09/07/18 BCx 2/2 sets diphteroids, 1/2 setse S. epi (contaminants); 09/11 Bcx NTD 09/07/18 SCx - NF 09/07/18 UCx - Neg 09/09 Cdiff neg HTN DM Schizophenia Quadriplegia. G- tube dependent Plan -Continue Zosyn #14 and IV Micafungin #13 in the setting of stomach perforation and intraabdominal fluid collections --minimum of 2 weeks but will continue abx until drains have been removed -f/u cx -09/28 SP Flagyl #3 - 09/19/18 SP Zosyn #10 - 09/17/18 SP Vancmocyin #10 - 09/09/18 Ertapenem #3 - Monitor CBC and temps -Sx f/u -wound care We will continue to follow the patient during this hospitalization. Subjective Allergies: Coded Allergies: No Known Allergies (Unverified , 08/14/18) Subjective afebrile wbc increased Fluid cx grew Nicky tropicalis Objective Vital Signs Last 24 Hour Vital Signs Date Time Temp Pulse Resp B/P (MAP) Pulse Ox O2 Delivery O2 Flow Rate FiO2 10/05/18 12:46 102 16 30 10/05/18 11:16 91 13 30 10/05/18 09:00 60 15 30 10/05/18 08:00 98.0 101 18 118/79 99 Mechanical Ventilator 30 10/05/18 08:00 Mechanical Ventilator Mechanical Ventilator 10/05/18 08:00 95 10/05/18 08:00 30 10/05/18 07:25 94 15 30 10/05/18 05:30 97 18 30 10/05/18 04:00 101 10/05/18 04:00 30 10/05/18 04:00 97.4 108 18 122/88 99 Mechanical Ventilator 30 10/05/18 04:00 Mechanical Ventilator Mechanical Ventilator 10/05/18 03:30 104 21 30 10/05/18 01:30 108 20 30 10/05/18 00:00 Mechanical Ventilator Mechanical Ventilator 10/05/18 00:00 30 10/05/18 00:00 99 10/05/18 00:00 98.6 104 16 129/81 99 Mechanical Ventilator 30 10/04/18 23:30 113 21 30 10/04/18 21:09 120 29 30 10/04/18 20:00 99.1 107 17 129/74 99 Mechanical Ventilator 30 10/04/18 20:00 98 10/04/18 20:00 Mechanical Ventilator Mechanical Ventilator 10/04/18 20:00 30 10/04/18 19:30 98 15 30 10/04/18 17:07 102 15 30 10/04/18 16:00 98.1 97 20 142/84 99 Mechanical Ventilator 30 10/04/18 16:00 30 10/04/18 16:00 Mechanical Ventilator Mechanical Ventilator 10/04/18 15:38 101 10/04/18 14:44 99 15 30 10/04/18 13:21 97 14 30 Height (Feet): 5 Height (Inches): 5.00 Weight (Pounds): 158 Objective Gen: NAD, On vent satting well 35% O2 HEENT: NCAT, MMM, EOMI LUNGS: CTAB, No W/C, CARDS: RRR, S1, S2, No M/R/G, ABD: Soft, NT, distended, + BS,G tube (No E/P) NEURO: Intubated, not following Laboratory Tests Test 10/05/18 03:15 White Blood Count 14.0 K/UL (4.8-10.8) H Red Blood Count 2.53 M/UL (4.70-6.10) L Hemoglobin 7.4 G/DL (14.2-18.0) L Hematocrit 22.7 % (42.0-52.0) L Mean Corpuscular Volume 90 FL (80-99) Mean Corpuscular Hemoglobin 29.1 PG (27.0-31.0) Mean Corpuscular Hemoglobin Concent 32.4 G/DL (32.0-36.0) Red Cell Distribution Width 12.7 % (11.6-14.8) Platelet Count 805 K/UL (150-450) H Mean Platelet Volume 6.5 FL (6.5-10.1) Neutrophils (%) (Auto) % (45.0-75.0) Lymphocytes (%) (Auto) % (20.0-45.0) Monocytes (%) (Auto) % (1.0-10.0) Eosinophils (%) (Auto) % (0.0-3.0) Basophils (%) (Auto) % (0.0-2.0) Differential Total Cells Counted 100 Neutrophils % (Manual) 77 % (45-75) H Lymphocytes % (Manual) 8 % (20-45) L Monocytes % (Manual) 6 % (1-10) Eosinophils % (Manual) 5 % (0-3) H Basophils % (Manual) 0 % (0-2) Metamyelocytes % 1 % (0-0) H Band Neutrophils 3 % (0-8) Platelet Estimate Increased H Platelet Morphology Giant Platelets Occasional Hypochromasia 1+ Sodium Level 143 MMOL/L (136-145) Potassium Level 3.4 MMOL/L (3.5-5.1) L Chloride Level 110 MMOL/L (98-107) H Carbon Dioxide Level 28 MMOL/L (21-32) Anion Gap 6 mmol/L (5-15) Blood Urea Nitrogen 10 mg/dL (7-18) Creatinine 1.0 MG/DL (0.55-1.30) Estimat Glomerular Filtration Rate > 60 mL/min (>60) Glucose Level 119 MG/DL (74-106) H Calcium Level 7.1 MG/DL (8.5-10.1) L Phosphorus Level 2.2 MG/DL (2.5-4.9) L Magnesium Level 1.4 MG/DL (1.8-2.4) L Total Bilirubin 0.2 MG/DL (0.2-1.0) Aspartate Amino Transf (AST/SGOT) 15 U/L (15-37) Alanine Aminotransferase (ALT/SGPT) 14 U/L (12-78) Alkaline Phosphatase 84 U/L (46-116) Total Protein 5.5 G/DL (6.4-8.2) L Albumin 0.9 G/DL (3.4-5.0) L Globulin 4.6 g/dL Albumin/Globulin Ratio 0.2 (1.0-2.7) L Current Medications Medications (Trade) Dose Ordered Sig/Julito Route PRN Reason Start Time Stop Time Status Last Admin Dose Admin Acetaminophen (Tylenol) 650 mg Q4H PRN NG Mild Pain/Temp > 100.5 09/24/18 12:15 10/08/18 12:14 Acetaminophen (Tylenol) 650 mg Q4H PRN RECTAL Mild Pain (Pain Scale 1-3) 09/25/18 21:00 10/25/18 20:59 09/25/18 21:17 Albuterol/ Ipratropium (Albuterol/ Ipratropium) 3 ml Q4HRT PRN HHN sob 10/03/18 12:00 10/08/18 11:59 Chlorhexidine Gluconate (Camila-Hex 2%) 1 applic DAILY@2000 TOPIC 09/24/18 20:00 10/15/18 19:59 10/04/18 21:13 Dextrose (Dextrose 50%) 25 ml Q30M PRN IV Hypoglycemia 09/24/18 12:30 10/08/18 13:29 Dextrose (Dextrose 50%) 50 ml Q30M PRN IV Hypoglycemia 09/24/18 12:30 10/08/18 13:29 Fat Emulsion Intravenous 216 ml/Amino Acids/ Electrolytes/ Dextrose 1,608 ml @ 67 mls/hr Q24H IV 09/25/18 05:30 10/25/18 05:29 10/05/18 04:38 Heparin Sodium (Porcine) (Heparin 5000 units/ml) 5,000 units EVERY 12 HOURS SUBQ 09/24/18 21:00 10/07/18 20:59 10/03/18 20:59 Insulin Aspart (NovoLOG) Q6HR SUBQ 09/24/18 12:00 10/08/18 11:59 10/05/18 05:04 Loperamide HCl (Imodium) 4 mg TIDPRN PRN ORAL Diarrhea 09/24/18 12:15 10/10/18 12:14 Magnesium Sulfate 100 ml @ 100 mls/hr Q1H IVPB 10/05/18 10:00 10/05/18 13:59 10/05/18 10:53 Micafungin Sodium 100 mg/Sodium Chloride 110 ml @ 110 mls/hr Q24H IVPB 09/29/18 18:00 10/06/18 17:59 10/04/18 17:37 Ondansetron HCl (Zofran) 4 mg Q6H PRN IVP Nausea & Vomiting 2/14/19 12:15 10/07/18 12:14 Pantoprazole (Protonix) 40 mg Q12HR IVP 09/24/18 21:00 10/08/18 08:59 10/05/18 09:00 Phytonadione (Vitamin K) 10 mg QWEEK SUBQ 09/30/18 09:00 10/30/18 08:59 09/30/18 08:09 Piperacillin Sod/ Tazobactam Sod 3.375 gm/Sodium Chloride 110 ml @ 27.5 mls/hr EVERY 8 HOURS IVPB 09/24/18 14:00 10/07/18 13:59 10/05/18 05:03 Polyethylene Glycol (Miralax) 17 gm DAILYPRN PRN ORAL Constipation 09/24/18 12:15 10/07/18 12:14 Potassium Phosphate 30 mm/ Sodium Chloride 285 ml @ 47.5 mls/hr ONCE ONCE IV 10/05/18 11:00 10/05/18 16:59 10/05/18 10:53 Risperidone (RisperDAL) 0.25 mg QHS ORAL 09/24/18 21:00 10/10/18 20:59 09/27/18 20:04 Sodium Chloride 500 ml @ 999 mls/hr Q31M PRN IV SBP<90mmHg 09/24/18 12:15 10/08/18 10:59 Kell Larkin M.D. Oct 05, 2018 13:13
--- NOTE | 2018-10-05 14:04 | General Progress Note ---
Assessment/Plan Problem List: (1) UTI (urinary tract infection) ICD Codes: N39.0 - Urinary tract infection, site not specified SNOMED: 07379459 (2) Renal failure ICD Codes: N19 - Unspecified kidney failure SNOMED: 75098999 (3) Anemia ICD Codes: D64.9 - Anemia, unspecified SNOMED: 901711628 (4) Acute respiratory failure ICD Codes: J96.00 - Acute respiratory failure, unspecified whether with hypoxia or hypercapnia SNOMED: 82334731 (5) Pneumonia ICD Codes: J18.9 - Pneumonia, unspecified organism SNOMED: 088698326 (6) Septic shock ICD Codes: A41.9 - Sepsis, unspecified organism; R65.21 - Severe sepsis with septic shock SNOMED: 42974060 (7) ATN (acute tubular necrosis) ICD Codes: N17.0 - Acute kidney failure with tubular necrosis SNOMED: 48899894 Status: unchanged Assessment/Plan vent abx wound care neph f/u gi eval cbc bmp am ltach eval Subjective Constitutional: Reports: weakness Allergies: Coded Allergies: No Known Allergies (Unverified , 08/14/18) All Systems: reviewed and negative except above Subjective trach vent altered Objective Last 24 Hour Vital Signs Date Time Temp Pulse Resp B/P (MAP) Pulse Ox O2 Delivery O2 Flow Rate FiO2 10/05/18 12:46 102 16 30 10/05/18 11:16 91 13 30 10/05/18 09:00 60 15 30 10/05/18 08:00 98.0 101 18 118/79 99 Mechanical Ventilator 30 10/05/18 08:00 Mechanical Ventilator Mechanical Ventilator 10/05/18 08:00 95 10/05/18 08:00 30 10/05/18 07:25 94 15 30 10/05/18 05:30 97 18 30 10/05/18 04:00 101 10/05/18 04:00 30 10/05/18 04:00 97.4 108 18 122/88 99 Mechanical Ventilator 30 10/05/18 04:00 Mechanical Ventilator Mechanical Ventilator 10/05/18 03:30 104 21 30 10/05/18 01:30 108 20 30 10/05/18 00:00 Mechanical Ventilator Mechanical Ventilator 10/05/18 00:00 30 10/05/18 00:00 99 10/05/18 00:00 98.6 104 16 129/81 99 Mechanical Ventilator 30 10/04/18 23:30 113 21 30 10/04/18 21:09 120 29 30 10/04/18 20:00 99.1 107 17 129/74 99 Mechanical Ventilator 30 10/04/18 20:00 98 10/04/18 20:00 Mechanical Ventilator Mechanical Ventilator 10/04/18 20:00 30 10/04/18 19:30 98 15 30 10/04/18 17:07 102 15 30 10/04/18 16:00 98.1 97 20 142/84 99 Mechanical Ventilator 30 10/04/18 16:00 30 10/04/18 16:00 Mechanical Ventilator Mechanical Ventilator 10/04/18 15:38 101 10/04/18 14:44 99 15 30 Intake and Output 10/04/18 10/05/18 18:59 06:59 Intake Total 657.916 ml 780.0 ml Output Total 1220 ml Balance -562.084 ml 780.0 ml IV Total 657.916 ml 780.0 ml Output Urine Total 1100 ml Drainage Total 120 ml Laboratory Tests 10/05/18 03:15: White Blood Count 14.0H, Red Blood Count 2.53L, Hemoglobin 7.4L, Hematocrit 22.7L, Mean Corpuscular Volume 90, Mean Corpuscular Hemoglobin 29.1, Mean Corpuscular Hemoglobin Concent 32.4, Red Cell Distribution Width 12.7, Platelet Count 805H, Mean Platelet Volume 6.5, Neutrophils (%) (Auto) , Lymphocytes (%) ( Auto) , Monocytes (%) (Auto) , Eosinophils (%) (Auto) , Basophils (%) (Auto) , Differential Total Cells Counted 100, Neutrophils % (Manual) 77H, Lymphocytes % (Manual) 8L, Monocytes % (Manual) 6, Eosinophils % (Manual) 5H, Basophils % ( Manual) 0, Metamyelocytes % 1H, Band Neutrophils 3, Platelet Estimate IncreasedH , Platelet Morphology , Giant Platelets Occasional, Hypochromasia 1+, Sodium Level 143, Potassium Level 3.4L, Chloride Level 110H, Carbon Dioxide Level 28, Anion Gap 6, Blood Urea Nitrogen 10, Creatinine 1.0, Estimat Glomerular Filtration Rate > 60, Glucose Level 119H, Calcium Level 7.1L, Phosphorus Level 2.2L, Magnesium Level 1.4L, Total Bilirubin 0.2, Aspartate Amino Transf (AST/ SGOT) 15, Alanine Aminotransferase (ALT/SGPT) 14, Alkaline Phosphatase 84, Total Protein 5.5L, Albumin 0.9L, Globulin 4.6, Albumin/Globulin Ratio 0.2L Height (Feet): 5 Height (Inches): 5.00 Weight (Pounds): 158 General Appearance: alert EENT: normal ENT inspection Neck: normal alignment Cardiovascular: normal peripheral pulses, normal rate, regular rhythm Respiratory/Chest: chest wall non-tender, lungs clear, normal breath sounds Abdomen: normal bowel sounds, non tender, soft Extremities: normal inspection Edema: no edema noted Arm (L), no edema noted Arm (R), no edema noted Leg (L), no edema noted Leg (R), no edema noted Pedal (L), no edema noted Pedal (R), no edema noted Generalized Neurologic: abnormal deck specialist II-XII Skin: normal pigmentation, warm/dry Jasmeet Reynoso DO Oct 05, 2018 14:04
--- NOTE | 2018-10-05 14:12 | Cardiac Electrophysiology PN ---
Assessment/Plan Assessment/Plan 1. S/P Septic and hemorrhagic shock with Lactic acidosis. On Abx and S/P PRBC 2. Sinus tachycardia in 140s due to sepsis, anemia and dehydration. No fibrillation. EF 75%. 3. Troponin elevation due to renal failure. EF 75%. 4. VDRF. S/P Tracheostomy 09/22/18 5. Rhabdomyolysis with CPK in thousands contributing to renal failure. 6. Acute renal failure and severe hyperkalemia. FU by Dr. Smalls 7. Dysphagia, Hx of PEG placement but was dislodged. 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 Incision slightly oozing 8. GI bleed. S/P EGD by Dr. Horton. S/p PRBCs DW RN Subjective Subjective On the Vent via tracheostomy draining from both abdominal drains and incision still oozing. On TPN and Lipid. Objective Last 24 Hour Vital Signs Date Time Temp Pulse Resp B/P (MAP) Pulse Ox O2 Delivery O2 Flow Rate FiO2 10/05/18 12:46 102 16 30 10/05/18 11:16 91 13 30 10/05/18 09:00 60 15 30 10/05/18 08:00 98.0 101 18 118/79 99 Mechanical Ventilator 30 10/05/18 08:00 Mechanical Ventilator Mechanical Ventilator 10/05/18 08:00 95 10/05/18 08:00 30 10/05/18 07:25 94 15 30 10/05/18 05:30 97 18 30 10/05/18 04:00 101 10/05/18 04:00 30 10/05/18 04:00 97.4 108 18 122/88 99 Mechanical Ventilator 30 10/05/18 04:00 Mechanical Ventilator Mechanical Ventilator 10/05/18 03:30 104 21 30 10/05/18 01:30 108 20 30 10/05/18 00:00 Mechanical Ventilator Mechanical Ventilator 10/05/18 00:00 30 10/05/18 00:00 99 10/05/18 00:00 98.6 104 16 129/81 99 Mechanical Ventilator 30 10/04/18 23:30 113 21 30 10/04/18 21:09 120 29 30 10/04/18 20:00 99.1 107 17 129/74 99 Mechanical Ventilator 30 10/04/18 20:00 98 10/04/18 20:00 Mechanical Ventilator Mechanical Ventilator 10/04/18 20:00 30 10/04/18 19:30 98 15 30 10/04/18 17:07 102 15 30 10/04/18 16:00 98.1 97 20 142/84 99 Mechanical Ventilator 30 10/04/18 16:00 30 10/04/18 16:00 Mechanical Ventilator Mechanical Ventilator 10/04/18 15:38 101 10/04/18 14:44 99 15 30 Intake and Output 10/04/18 10/05/18 18:59 06:59 Intake Total 657.916 ml 780.0 ml Output Total 1220 ml Balance -562.084 ml 780.0 ml IV Total 657.916 ml 780.0 ml Output Urine Total 1100 ml Drainage Total 120 ml Laboratory Tests Test 10/05/18 03:15 White Blood Count 14.0 K/UL (4.8-10.8) H Red Blood Count 2.53 M/UL (4.70-6.10) L Hemoglobin 7.4 G/DL (14.2-18.0) L Hematocrit 22.7 % (42.0-52.0) L Mean Corpuscular Volume 90 FL (80-99) Mean Corpuscular Hemoglobin 29.1 PG (27.0-31.0) Mean Corpuscular Hemoglobin Concent 32.4 G/DL (32.0-36.0) Red Cell Distribution Width 12.7 % (11.6-14.8) Platelet Count 805 K/UL (150-450) H Mean Platelet Volume 6.5 FL (6.5-10.1) Neutrophils (%) (Auto) % (45.0-75.0) Lymphocytes (%) (Auto) % (20.0-45.0) Monocytes (%) (Auto) % (1.0-10.0) Eosinophils (%) (Auto) % (0.0-3.0) Basophils (%) (Auto) % (0.0-2.0) Differential Total Cells Counted 100 Neutrophils % (Manual) 77 % (45-75) H Lymphocytes % (Manual) 8 % (20-45) L Monocytes % (Manual) 6 % (1-10) Eosinophils % (Manual) 5 % (0-3) H Basophils % (Manual) 0 % (0-2) Metamyelocytes % 1 % (0-0) H Band Neutrophils 3 % (0-8) Platelet Estimate Increased H Platelet Morphology Giant Platelets Occasional Hypochromasia 1+ Sodium Level 143 MMOL/L (136-145) Potassium Level 3.4 MMOL/L (3.5-5.1) L Chloride Level 110 MMOL/L (98-107) H Carbon Dioxide Level 28 MMOL/L (21-32) Anion Gap 6 mmol/L (5-15) Blood Urea Nitrogen 10 mg/dL (7-18) Creatinine 1.0 MG/DL (0.55-1.30) Estimat Glomerular Filtration Rate > 60 mL/min (>60) Glucose Level 119 MG/DL (74-106) H Calcium Level 7.1 MG/DL (8.5-10.1) L Phosphorus Level 2.2 MG/DL (2.5-4.9) L Magnesium Level 1.4 MG/DL (1.8-2.4) L Total Bilirubin 0.2 MG/DL (0.2-1.0) Aspartate Amino Transf (AST/SGOT) 15 U/L (15-37) Alanine Aminotransferase (ALT/SGPT) 14 U/L (12-78) Alkaline Phosphatase 84 U/L (46-116) Total Protein 5.5 G/DL (6.4-8.2) L Albumin 0.9 G/DL (3.4-5.0) L Globulin 4.6 g/dL Albumin/Globulin Ratio 0.2 (1.0-2.7) L Objective HEENT: S/P tracheostomy. LUNGS: Coarse rhonchi. CARDIOVASCULAR: Regular S1 and S2. ABDOMEN: Incision slightly oozing and has 2 drains EXTREMITIES: No pitting edema. Jasbir Madsen MD Oct 05, 2018 14:12
--- NOTE | 2018-10-05 14:16 | GI Progress Note ---
Assessment/Plan Problems: (1) G tube feedings ICD Codes: Z93.1 - Gastrostomy status SNOMED: 718452479, 511926478 (2) Protein-calorie malnutrition, severe ICD Codes: E43 - Unspecified severe protein-calorie malnutrition SNOMED: 928747905 (3) Anemia ICD Codes: D64.9 - Anemia, unspecified SNOMED: 570029364 (4) GI bleed ICD Codes: K92.2 - Gastrointestinal hemorrhage, unspecified SNOMED: 79566056 Status: unchanged Status Narrative Discussed with Dr. Horton. Assessment/Plan s/p repair of gastric perferation RECOMMENDATIONS: fu surgical recommendations TPN prn transfusion ppi abx fu labs The patient was seen and examined at bedside and all new and available data was reviewed in the patients chart. I agree with the above findings, impression and plan. (Patient seen earlier today. Signature stamp does not reflect patient encounter time.). - Arthur Horton MD Subjective Subjective limited Objective Last 24 Hour Vital Signs Date Time Temp Pulse Resp B/P (MAP) Pulse Ox O2 Delivery O2 Flow Rate FiO2 10/05/18 12:46 102 16 30 10/05/18 11:16 91 13 30 10/05/18 09:00 60 15 30 10/05/18 08:00 98.0 101 18 118/79 99 Mechanical Ventilator 30 10/05/18 08:00 Mechanical Ventilator Mechanical Ventilator 10/05/18 08:00 95 10/05/18 08:00 30 10/05/18 07:25 94 15 30 10/05/18 05:30 97 18 30 10/05/18 04:00 101 10/05/18 04:00 30 10/05/18 04:00 97.4 108 18 122/88 99 Mechanical Ventilator 30 10/05/18 04:00 Mechanical Ventilator Mechanical Ventilator 10/05/18 03:30 104 21 30 10/05/18 01:30 108 20 30 10/05/18 00:00 Mechanical Ventilator Mechanical Ventilator 10/05/18 00:00 30 10/05/18 00:00 99 10/05/18 00:00 98.6 104 16 129/81 99 Mechanical Ventilator 30 10/04/18 23:30 113 21 30 10/04/18 21:09 120 29 30 10/04/18 20:00 99.1 107 17 129/74 99 Mechanical Ventilator 30 10/04/18 20:00 98 10/04/18 20:00 Mechanical Ventilator Mechanical Ventilator 10/04/18 20:00 30 10/04/18 19:30 98 15 30 10/04/18 17:07 102 15 30 10/04/18 16:00 98.1 97 20 142/84 99 Mechanical Ventilator 30 10/04/18 16:00 30 10/04/18 16:00 Mechanical Ventilator Mechanical Ventilator 10/04/18 15:38 101 10/04/18 14:44 99 15 30 Intake and Output 10/04/18 10/05/18 18:59 06:59 Intake Total 657.916 ml 780.0 ml Output Total 1220 ml Balance -562.084 ml 780.0 ml IV Total 657.916 ml 780.0 ml Output Urine Total 1100 ml Drainage Total 120 ml Laboratory Tests Test 10/05/18 03:15 White Blood Count 14.0 K/UL (4.8-10.8) H Red Blood Count 2.53 M/UL (4.70-6.10) L Hemoglobin 7.4 G/DL (14.2-18.0) L Hematocrit 22.7 % (42.0-52.0) L Mean Corpuscular Volume 90 FL (80-99) Mean Corpuscular Hemoglobin 29.1 PG (27.0-31.0) Mean Corpuscular Hemoglobin Concent 32.4 G/DL (32.0-36.0) Red Cell Distribution Width 12.7 % (11.6-14.8) Platelet Count 805 K/UL (150-450) H Mean Platelet Volume 6.5 FL (6.5-10.1) Neutrophils (%) (Auto) % (45.0-75.0) Lymphocytes (%) (Auto) % (20.0-45.0) Monocytes (%) (Auto) % (1.0-10.0) Eosinophils (%) (Auto) % (0.0-3.0) Basophils (%) (Auto) % (0.0-2.0) Differential Total Cells Counted 100 Neutrophils % (Manual) 77 % (45-75) H Lymphocytes % (Manual) 8 % (20-45) L Monocytes % (Manual) 6 % (1-10) Eosinophils % (Manual) 5 % (0-3) H Basophils % (Manual) 0 % (0-2) Metamyelocytes % 1 % (0-0) H Band Neutrophils 3 % (0-8) Platelet Estimate Increased H Platelet Morphology Giant Platelets Occasional Hypochromasia 1+ Sodium Level 143 MMOL/L (136-145) Potassium Level 3.4 MMOL/L (3.5-5.1) L Chloride Level 110 MMOL/L (98-107) H Carbon Dioxide Level 28 MMOL/L (21-32) Anion Gap 6 mmol/L (5-15) Blood Urea Nitrogen 10 mg/dL (7-18) Creatinine 1.0 MG/DL (0.55-1.30) Estimat Glomerular Filtration Rate > 60 mL/min (>60) Glucose Level 119 MG/DL (74-106) H Calcium Level 7.1 MG/DL (8.5-10.1) L Phosphorus Level 2.2 MG/DL (2.5-4.9) L Magnesium Level 1.4 MG/DL (1.8-2.4) L Total Bilirubin 0.2 MG/DL (0.2-1.0) Aspartate Amino Transf (AST/SGOT) 15 U/L (15-37) Alanine Aminotransferase (ALT/SGPT) 14 U/L (12-78) Alkaline Phosphatase 84 U/L (46-116) Total Protein 5.5 G/DL (6.4-8.2) L Albumin 0.9 G/DL (3.4-5.0) L Globulin 4.6 g/dL Albumin/Globulin Ratio 0.2 (1.0-2.7) L Height (Feet): 5 Height (Inches): 5.00 Weight (Pounds): 158 General Appearance: no apparent distress Cardiovascular: normal rate Respiratory/Chest: normal breath sounds, no respiratory distress, other - trach Abdominal Exam: incision site Becki Holt NP Oct 05, 2018 14:16
[2018-10-05 16:00] VITALS: BP 139/79
[2018-10-05] MEDS: Micafungin 100 MG in NS 110 ML IVPB SCH (18:00)
[2018-10-05 20:00] VITALS: BP 125/82
[2018-10-05] MEDS: Dyna-Hex 2% Top Sol 2oz TOPIC SCH (20:20)
[2018-10-05] MEDS: Acetaminophen 650 MG SUPP RECTAL PRN (21:28)
[2018-10-06] VITALS: BP 120/70
[2018-10-06 04:00] VITALS: BP 125/82
[2018-10-06] MEDS: TPN IV SCH (04:42)
[2018-10-06] MEDS: FAT EMULSION 20% IV SCH (04:42)
[2018-10-06] MEDS: Piperacillin/Tazobactam 3.375 GM in NS 110 ML IVPB SCH ×3 (05:47→21:08)
[2018-10-06] MEDS: NovoLOG Insulin Flexpen SUBQ SCH ×4 (05:48→23:42)
[2018-10-06 07:21] LABS: BASOPHILS % (AUTO) 0.9 % (0.0-2.0); HEMATOCRIT 25.5 % (42.0-52.0); LYMPHOCYTES % (AUTO) 9.5 % (20.0-45.0); MEAN CORPUSCULAR VOLUME 90 FL (80-99); MONOCYTES % (AUTO) 5.5 % (1.0-10.0); NEUTROPHILS % (AUTO) 80.1 % (45.0-75.0); PLATELET COUNT 760 K/UL (150-450); RED BLOOD COUNT 2.84 M/UL (4.70-6.10); RED CELL DISTRIBUTION WIDTH 12.4 % (11.6-14.8); WHITE BLOOD COUNT 14.3 K/UL (4.8-10.8)
[2018-10-06 07:22] LABS: ALANINE AMINOTRANSFERASE 15 U/L (12-78); ALBUMIN/GLOBULIN RATIO 0.2 (1.0-2.7); ALKALINE PHOSPHATASE 87 U/L (46-116); ANION GAP 7 mmol/L (5-15); ASPARTATE AMINO TRANSFERASE 23 U/L (15-37); BILIRUBIN,TOTAL 0.9 MG/DL (0.2-1.0); BLOOD UREA NITROGEN 10 mg/dL (7-18); CALCIUM 7.3 MG/DL (8.5-10.1); CARBON DIOXIDE 25 MMOL/L (21-32); CHLORIDE 107 MMOL/L (98-107); CREATININE 0.9 MG/DL (0.55-1.30); POTASSIUM 3.4 MMOL/L (3.5-5.1); SODIUM 139 MMOL/L (136-145)
[2018-10-06 08:00] VITALS: BP 131/79
[2018-10-06 08:13] LABS: HEMOGLOBIN 8.4 G/DL (14.2-18.0)
[2018-10-06] MEDS: Pantoprazole Inj IVP SCH ×2 (08:32→20:47)
[2018-10-06] MEDS: Heparin 5000 units/ml inj SUBQ SCH ×2 (08:36→20:47)
--- NOTE | 2018-10-06 10:33 | Pulmonolgy Critical Care Note ---
Critical Care - Asmt/Plan Problems: (1) Acute respiratory failure (2) Septic shock (3) ATN (acute tubular necrosis) (4) Metabolic acidosis (5) Gastric rupture Assessment/Plan: got one unit of blood transfusion yesterday. 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 - Objective Last 24 Hour Vital Signs Date Time Temp Pulse Resp B/P (MAP) Pulse Ox O2 Delivery O2 Flow Rate FiO2 10/06/18 09:20 88 16 30 10/06/18 08:00 30 10/06/18 08:00 Mechanical Ventilator Mechanical Ventilator 10/06/18 07:05 88 14 30 10/06/18 05:08 92 19 30 10/06/18 04:00 Mechanical Ventilator Mechanical Ventilator 10/06/18 04:00 30 10/06/18 04:00 98.9 88 14 125/82 100 Mechanical Ventilator 30 10/06/18 04:00 90 10/06/18 02:51 89 14 30 10/06/18 00:59 97 15 30 10/06/18 00:00 Mechanical Ventilator Mechanical Ventilator 10/06/18 00:00 99.0 98 15 120/70 99 Mechanical Ventilator 30 10/05/18 23:28 97 10/05/18 23:06 99 14 30 10/05/18 21:58 99.5 10/05/18 20:54 108 16 30 10/05/18 20:00 30 10/05/18 20:00 100.4 107 18 125/82 96 Mechanical Ventilator 30 10/05/18 20:00 Mechanical Ventilator Mechanical Ventilator 10/05/18 19:42 106 10/05/18 19:24 111 21 30 10/05/18 17:25 114 25 30 10/05/18 16:00 30 10/05/18 16:00 100 10/05/18 16:00 98.0 100 18 139/79 99 Mechanical Ventilator 30 10/05/18 16:00 Mechanical Ventilator Mechanical Ventilator 10/05/18 14:45 108 19 30 10/05/18 12:46 102 16 30 10/05/18 12:00 Mechanical Ventilator Mechanical Ventilator 10/05/18 12:00 98 10/05/18 12:00 98.0 98 18 121/66 99 Mechanical Ventilator 30 10/05/18 12:00 30 10/05/18 11:16 91 13 30 Status: awake Condition: critical HEENT: atraumatic Lungs: clear, chest wall tender Heart: HR/BP unstable Abdomen: soft, active bowel sounds Decubiti: location Accucheck: 212 Critical Care - Subjective ROS Limited/Unobtainable: Yes Interval Events: low grade temperature Condition: critical EKG Rhythm: Sinus Rhythm FI02: 30 Vent Support Breath Rate: 12 Vent Support Mode: AC Vent Tidal Volume: 500 Sputum Amount: Small PEEP: 0.0 PIP: 20 Tube Feeding Amount: 0 I&O: Intake and Output 10/05/18 10/06/18 19:00 07:00 Intake Total 1024.0 ml 737 ml Output Total 1220 ml 1430 ml Balance -196.0 ml -693 ml IV Total 1024.0 ml 737 ml Output Urine Total 1000 ml 1200 ml Stool Total 100 ml 150 ml Drainage Total 120 ml 80 ml CXR: no change, trach intact Labs: Laboratory Tests Test 10/06/18 06:00 White Blood Count 14.3 K/UL (4.8-10.8) H Red Blood Count 2.84 M/UL (4.70-6.10) L Hemoglobin 8.4 G/DL (14.2-18.0) L Hematocrit 25.5 % (42.0-52.0) L Mean Corpuscular Volume 90 FL (80-99) Mean Corpuscular Hemoglobin 29.7 PG (27.0-31.0) Mean Corpuscular Hemoglobin Concent 33.0 G/DL (32.0-36.0) Red Cell Distribution Width 12.4 % (11.6-14.8) Platelet Count 760 K/UL (150-450) H Mean Platelet Volume 6.5 FL (6.5-10.1) Neutrophils (%) (Auto) 80.1 % (45.0-75.0) H Lymphocytes (%) (Auto) 9.5 % (20.0-45.0) L Monocytes (%) (Auto) 5.5 % (1.0-10.0) Eosinophils (%) (Auto) 4.0 % (0.0-3.0) H Basophils (%) (Auto) 0.9 % (0.0-2.0) Sodium Level 139 MMOL/L (136-145) Potassium Level 3.4 MMOL/L (3.5-5.1) L Chloride Level 107 MMOL/L (98-107) Carbon Dioxide Level 25 MMOL/L (21-32) Anion Gap 7 mmol/L (5-15) Blood Urea Nitrogen 10 mg/dL (7-18) Creatinine 0.9 MG/DL (0.55-1.30) Estimat Glomerular Filtration Rate > 60 mL/min (>60) Glucose Level 187 MG/DL (74-106) H Calcium Level 7.3 MG/DL (8.5-10.1) L Total Bilirubin 0.9 MG/DL (0.2-1.0) Aspartate Amino Transf (AST/SGOT) 23 U/L (15-37) Alanine Aminotransferase (ALT/SGPT) 15 U/L (12-78) Alkaline Phosphatase 87 U/L (46-116) Pro-B-Type Natriuretic Peptide 2878 pg/mL (0-125) H Total Protein 5.6 G/DL (6.4-8.2) L Albumin 1.0 G/DL (3.4-5.0) L Globulin 4.6 g/dL Albumin/Globulin Ratio 0.2 (1.0-2.7) L Po Li MD Oct 06, 2018 10:33
--- NOTE | 2018-10-06 11:15 | GI Progress Note ---
Assessment/Plan Problems: (1) G tube feedings ICD Codes: Z93.1 - Gastrostomy status SNOMED: 727455186, 349077056 (2) Protein-calorie malnutrition, severe ICD Codes: E43 - Unspecified severe protein-calorie malnutrition SNOMED: 913155904 (3) Anemia ICD Codes: D64.9 - Anemia, unspecified SNOMED: 214803784 (4) GI bleed ICD Codes: K92.2 - Gastrointestinal hemorrhage, unspecified SNOMED: 50528697 Status: unchanged Status Narrative Discussed with Dr. Horton. Assessment/Plan s/p repair of gastric perferation RECOMMENDATIONS: fu surgical recommendations TPN prn transfusion ppi abx fu labs The patient was seen and examined at bedside and all new and available data was reviewed in the patients chart. I agree with the above findings, impression and plan. (Patient seen earlier today. Signature stamp does not reflect patient encounter time.). - Arthur Horton MD Subjective Subjective limited Objective Last 24 Hour Vital Signs Date Time Temp Pulse Resp B/P (MAP) Pulse Ox O2 Delivery O2 Flow Rate FiO2 10/06/18 09:20 88 16 30 10/06/18 08:00 99.0 94 17 131/79 99 Mechanical Ventilator 30 10/06/18 08:00 30 10/06/18 08:00 Mechanical Ventilator Mechanical Ventilator 10/06/18 08:00 90 10/06/18 07:05 88 14 30 10/06/18 05:08 92 19 30 10/06/18 04:00 Mechanical Ventilator Mechanical Ventilator 10/06/18 04:00 30 10/06/18 04:00 98.9 88 14 125/82 100 Mechanical Ventilator 30 10/06/18 04:00 90 10/06/18 02:51 89 14 30 10/06/18 00:59 97 15 30 10/06/18 00:00 Mechanical Ventilator Mechanical Ventilator 10/06/18 00:00 99.0 98 15 120/70 99 Mechanical Ventilator 30 10/05/18 23:28 97 10/05/18 23:06 99 14 30 10/05/18 21:58 99.5 10/05/18 20:54 108 16 30 10/05/18 20:00 30 10/05/18 20:00 100.4 107 18 125/82 96 Mechanical Ventilator 30 10/05/18 20:00 Mechanical Ventilator Mechanical Ventilator 10/05/18 19:42 106 10/05/18 19:24 111 21 30 10/05/18 17:25 114 25 30 10/05/18 16:00 30 10/05/18 16:00 100 10/05/18 16:00 98.0 100 18 139/79 99 Mechanical Ventilator 30 10/05/18 16:00 Mechanical Ventilator Mechanical Ventilator 10/05/18 14:45 108 19 30 10/05/18 12:46 102 16 30 10/05/18 12:00 Mechanical Ventilator Mechanical Ventilator 10/05/18 12:00 98 10/05/18 12:00 98.0 98 18 121/66 99 Mechanical Ventilator 30 10/05/18 12:00 30 10/05/18 11:16 91 13 30 Intake and Output 10/05/18 10/06/18 19:00 07:00 Intake Total 1024.0 ml 737 ml Output Total 1220 ml 1430 ml Balance -196.0 ml -693 ml IV Total 1024.0 ml 737 ml Output Urine Total 1000 ml 1200 ml Stool Total 100 ml 150 ml Drainage Total 120 ml 80 ml Laboratory Tests Test 10/06/18 06:00 White Blood Count 14.3 K/UL (4.8-10.8) H Red Blood Count 2.84 M/UL (4.70-6.10) L Hemoglobin 8.4 G/DL (14.2-18.0) L Hematocrit 25.5 % (42.0-52.0) L Mean Corpuscular Volume 90 FL (80-99) Mean Corpuscular Hemoglobin 29.7 PG (27.0-31.0) Mean Corpuscular Hemoglobin Concent 33.0 G/DL (32.0-36.0) Red Cell Distribution Width 12.4 % (11.6-14.8) Platelet Count 760 K/UL (150-450) H Mean Platelet Volume 6.5 FL (6.5-10.1) Neutrophils (%) (Auto) 80.1 % (45.0-75.0) H Lymphocytes (%) (Auto) 9.5 % (20.0-45.0) L Monocytes (%) (Auto) 5.5 % (1.0-10.0) Eosinophils (%) (Auto) 4.0 % (0.0-3.0) H Basophils (%) (Auto) 0.9 % (0.0-2.0) Sodium Level 139 MMOL/L (136-145) Potassium Level 3.4 MMOL/L (3.5-5.1) L Chloride Level 107 MMOL/L (98-107) Carbon Dioxide Level 25 MMOL/L (21-32) Anion Gap 7 mmol/L (5-15) Blood Urea Nitrogen 10 mg/dL (7-18) Creatinine 0.9 MG/DL (0.55-1.30) Estimat Glomerular Filtration Rate > 60 mL/min (>60) Glucose Level 187 MG/DL (74-106) H Calcium Level 7.3 MG/DL (8.5-10.1) L Total Bilirubin 0.9 MG/DL (0.2-1.0) Aspartate Amino Transf (AST/SGOT) 23 U/L (15-37) Alanine Aminotransferase (ALT/SGPT) 15 U/L (12-78) Alkaline Phosphatase 87 U/L (46-116) Pro-B-Type Natriuretic Peptide 2878 pg/mL (0-125) H Total Protein 5.6 G/DL (6.4-8.2) L Albumin 1.0 G/DL (3.4-5.0) L Globulin 4.6 g/dL Albumin/Globulin Ratio 0.2 (1.0-2.7) L Height (Feet): 5 Height (Inches): 5.00 Weight (Pounds): 156 General Appearance: WD/WN, no apparent distress, alert Cardiovascular: normal rate Respiratory/Chest: normal breath sounds, no respiratory distress Abdominal Exam: normal bowel sounds, non tender, soft, incision site Extremities: non-tender Becki Holt SIMPLEX OPERATOR Oct 06, 2018 11:15
--- NOTE | 2018-10-06 11:22 | Diagnostic Imaging Report ---
Indication: Dyspnea Technique: One view of the chest Comparison: 10/05/2018 Findings: Bilateral pleural effusions persist. There may be slight interstitial congestion. Stable position of tracheostomy and left arm PICC Impression: Stable bilateral pleural effusions. Mild interstitial congestive changes, not definitely evident previously.
[2018-10-06 12:00] VITALS: BP 124/84
--- NOTE | 2018-10-06 12:51 | Infectious Diseases Prog Note ---
Assessment/Plan Assessment/Plan 62 yo male with PMHx of Quadriplegia with G-tube, HTN, DM and Schizophenia who was [facility] ED [facility] for AMS. Displaced GT with perforation c/w peritonitis and hematoma/abscess formation -10/02 CT abd/p: Interval exploratory laparotomy, status post splenectomy, status post removal of gastrostomy tube with 2 abdominal drains noted. Abnormal appearance of the stomach with marked wall thickening and pneumatosis. Abnormal appearance of small bowel and large bowel showing wall thickening and enhancement may be related to enteritis and/or colitis. Trace ascites -09/22 SP Exploratory laparotomy. Repair of gastric perforation. Evacuation of abdominal omental / lesser sac hematoma. Evacuation of perisplenic hematoma/ abscess. Omentectomy. Splenectomy. Abdominal washout. Tracheostomy. -09/21 CT abd/p: The gastrostomy tube appears to be partially intraluminal and partially communicate with a large intramural collection involving mostly the inferior posterior wall of the stomach. There is some anterior wall pneumatosis. Contrast within the collection most likely represents instilled enteric contrast, but could also represent extravasated vascular contrast. There is evidence of rupture of this collection into the peritoneal space, with extravasated contrast in the left upper quadrant. There is anterior gastric wall intramural pneumatosis as well as a small amount of free extraluminal gas. Moderate ascites. Enhancement of much of the peritoneum raises concern for peritonitis. There may also be loculated intraperitoneal collections which could represent abscesses, predominantly adjacent to the tip of the right hepatic lobe, subcapsular in the spleen, and within the left upper quadrant. Thick-walled sigmoid colon, transverse colon and equivocally the proximal jejunum. Likely reactive related to the above, but could also indicate enteritis /colitis changes Septic shock 2ry to above, SP Leukocytosis, recurrent worsened-after procedure; increased -09/29 L ELISABET drain (+purulebnt fluid) cx : C. tropicalis -09/28 u/a neg, ucx NTD Bcx NTD CXR: Over one day, interim development of bilateral supraclavicular subcutaneous emphysema and pneumomediastinum, etiology not demonstrated. Persistent low lung volumes with basilar atelectatic changes and left-sided pleural effusion -09/20 ucx NTD; u/a neg -09/19 CXR: Bilateral pleural effusions and bibasilar atelectasis/airspace disease are stable. Low grade fever; SP Diarrhea- -09/27 Cdiff neg GIB Sepsis - Probably PNA , s/p Rx 09/22 CXR: Bilateral pleural effusions, basilar atelectatic changes, and interstitial congestive changes are stable CXR 09/07/18 - possible left sided consolidation Inf neg 09/07/18 BCx 2/2 sets diphteroids, 1/2 setse S. epi (contaminants); 09/11 Bcx NTD 09/07/18 SCx - NF 09/07/18 UCx - Neg 09/09 Cdiff neg HTN DM Schizophenia Quadriplegia. G- tube dependent Plan -Continue Zosyn #15 and IV Micafungin #14 in the setting of stomach perforation and intraabdominal fluid collections --minimum of 2 weeks but will continue abx until drains have been removed -f/u cx -09/28 SP Flagyl #3 - 09/19/18 SP Zosyn #10 - 09/17/18 SP Vancmocyin #10 - 09/09/18 Ertapenem #3 - Monitor CBC and temps -Sx f/u -wound care We will continue to follow the patient during this hospitalization. Subjective Allergies: Coded Allergies: No Known Allergies (Unverified , 08/14/18) Subjective Tm 100.4 wbc at 14 Objective Vital Signs Last 24 Hour Vital Signs Date Time Temp Pulse Resp B/P (MAP) Pulse Ox O2 Delivery O2 Flow Rate FiO2 10/06/18 12:00 Mechanical Ventilator Mechanical Ventilator 10/06/18 12:00 30 10/06/18 12:00 99.0 90 18 124/84 99 Mechanical Ventilator 30 10/06/18 11:14 97 17 30 10/06/18 09:20 88 16 30 10/06/18 08:00 99.0 94 17 131/79 99 Mechanical Ventilator 30 10/06/18 08:00 30 10/06/18 08:00 Mechanical Ventilator Mechanical Ventilator 10/06/18 08:00 90 10/06/18 07:05 88 14 30 10/06/18 05:08 92 19 30 10/06/18 04:00 Mechanical Ventilator Mechanical Ventilator 10/06/18 04:00 30 10/06/18 04:00 98.9 88 14 125/82 100 Mechanical Ventilator 30 10/06/18 04:00 90 10/06/18 02:51 89 14 30 10/06/18 00:59 97 15 30 10/06/18 00:00 Mechanical Ventilator Mechanical Ventilator 10/06/18 00:00 99.0 98 15 120/70 99 Mechanical Ventilator 30 10/05/18 23:28 97 10/05/18 23:06 99 14 30 10/05/18 21:58 99.5 10/05/18 20:54 108 16 30 10/05/18 20:00 30 10/05/18 20:00 100.4 107 18 125/82 96 Mechanical Ventilator 30 10/05/18 20:00 Mechanical Ventilator Mechanical Ventilator 10/05/18 19:42 106 10/05/18 19:24 111 21 30 10/05/18 17:25 114 25 30 10/05/18 16:00 30 10/05/18 16:00 100 10/05/18 16:00 98.0 100 18 139/79 99 Mechanical Ventilator 30 10/05/18 16:00 Mechanical Ventilator Mechanical Ventilator 10/05/18 14:45 108 19 30 Height (Feet): 5 Height (Inches): 5.00 Weight (Pounds): 156 Objective Gen: NAD, On vent satting well 35% O2 HEENT: NCAT, MMM, EOMI LUNGS: CTAB, No W/C, CARDS: RRR, S1, S2, No M/R/G, ABD: Soft, NT, distended, + BS,G tube (No E/P) NEURO: Intubated, not following Laboratory Tests Test 10/06/18 06:00 White Blood Count 14.3 K/UL (4.8-10.8) H Red Blood Count 2.84 M/UL (4.70-6.10) L Hemoglobin 8.4 G/DL (14.2-18.0) L Hematocrit 25.5 % (42.0-52.0) L Mean Corpuscular Volume 90 FL (80-99) Mean Corpuscular Hemoglobin 29.7 PG (27.0-31.0) Mean Corpuscular Hemoglobin Concent 33.0 G/DL (32.0-36.0) Red Cell Distribution Width 12.4 % (11.6-14.8) Platelet Count 760 K/UL (150-450) H Mean Platelet Volume 6.5 FL (6.5-10.1) Neutrophils (%) (Auto) 80.1 % (45.0-75.0) H Lymphocytes (%) (Auto) 9.5 % (20.0-45.0) L Monocytes (%) (Auto) 5.5 % (1.0-10.0) Eosinophils (%) (Auto) 4.0 % (0.0-3.0) H Basophils (%) (Auto) 0.9 % (0.0-2.0) Sodium Level 139 MMOL/L (136-145) Potassium Level 3.4 MMOL/L (3.5-5.1) L Chloride Level 107 MMOL/L (98-107) Carbon Dioxide Level 25 MMOL/L (21-32) Anion Gap 7 mmol/L (5-15) Blood Urea Nitrogen 10 mg/dL (7-18) Creatinine 0.9 MG/DL (0.55-1.30) Estimat Glomerular Filtration Rate > 60 mL/min (>60) Glucose Level 187 MG/DL (74-106) H Calcium Level 7.3 MG/DL (8.5-10.1) L Total Bilirubin 0.9 MG/DL (0.2-1.0) Aspartate Amino Transf (AST/SGOT) 23 U/L (15-37) Alanine Aminotransferase (ALT/SGPT) 15 U/L (12-78) Alkaline Phosphatase 87 U/L (46-116) Pro-B-Type Natriuretic Peptide 2878 pg/mL (0-125) H Total Protein 5.6 G/DL (6.4-8.2) L Albumin 1.0 G/DL (3.4-5.0) L Globulin 4.6 g/dL Albumin/Globulin Ratio 0.2 (1.0-2.7) L Current Medications Medications (Trade) Dose Ordered Sig/Julito Route PRN Reason Start Time Stop Time Status Last Admin Dose Admin Acetaminophen (Tylenol) 650 mg Q4H PRN NG Mild Pain/Temp > 100.5 09/24/18 12:15 10/08/18 12:14 Acetaminophen (Tylenol) 650 mg Q4H PRN RECTAL Mild Pain (Pain Scale 1-3) 09/25/18 21:00 10/25/18 20:59 10/05/18 21:28 Albuterol/ Ipratropium (Albuterol/ Ipratropium) 3 ml Q4HRT PRN HHN sob 10/03/18 12:00 10/08/18 11:59 Chlorhexidine Gluconate (Camila-Hex 2%) 1 applic DAILY@2000 TOPIC 09/24/18 20:00 10/15/18 19:59 10/05/18 20:20 Dextrose (Dextrose 50%) 25 ml Q30M PRN IV Hypoglycemia 09/24/18 12:30 10/08/18 13:29 Dextrose (Dextrose 50%) 50 ml Q30M PRN IV Hypoglycemia 09/24/18 12:30 10/08/18 13:29 Fat Emulsion Intravenous 216 ml/Amino Acids/ Electrolytes/ Dextrose 1,608 ml @ 67 mls/hr Q24H IV 09/25/18 05:30 10/25/18 05:29 10/06/18 04:42 Heparin Sodium (Porcine) (Heparin 5000 units/ml) 5,000 units EVERY 12 HOURS SUBQ 09/24/18 21:00 10/07/18 20:59 10/06/18 08:36 Insulin Aspart (NovoLOG) Q6HR SUBQ 09/24/18 12:00 10/08/18 11:59 10/06/18 12:43 Loperamide HCl (Imodium) 4 mg TIDPRN PRN ORAL Diarrhea 09/24/18 12:15 10/10/18 12:14 Micafungin Sodium 100 mg/Sodium Chloride 110 ml @ 110 mls/hr Q24H IVPB 09/29/18 18:00 10/07/18 17:59 10/05/18 18:00 Ondansetron HCl (Zofran) 4 mg Q6H PRN IVP Nausea & Vomiting 09/24/18 12:15 10/07/18 12:14 Pantoprazole (Protonix) 40 mg Q12HR IVP 09/24/18 21:00 10/08/18 08:59 10/06/18 08:32 Phytonadione (Vitamin K) 10 mg QWEEK SUBQ 09/30/18 09:00 10/30/18 08:59 09/30/18 08:09 Piperacillin Sod/ Tazobactam Sod 3.375 gm/Sodium Chloride 110 ml @ 27.5 mls/hr EVERY 8 HOURS IVPB 09/24/18 14:00 10/07/18 13:59 10/06/18 05:47 Polyethylene Glycol (Miralax) 17 gm DAILYPRN PRN ORAL Constipation 09/24/18 12:15 10/07/18 12:14 Risperidone (RisperDAL) 0.25 mg QHS ORAL 09/24/18 21:00 10/10/18 20:59 09/27/18 20:04 Sodium Chloride 500 ml @ 999 mls/hr Q31M PRN IV SBP<90mmHg 09/24/18 12:15 10/08/18 10:59 Kell Larkin M.D. Oct 06, 2018 12:51
--- NOTE | 2018-10-06 13:16 | General Progress Note ---
Assessment/Plan Problem List: (1) UTI (urinary tract infection) ICD Codes: N39.0 - Urinary tract infection, site not specified SNOMED: 48512307 (2) Renal failure ICD Codes: N19 - Unspecified kidney failure SNOMED: 54900991 (3) Anemia ICD Codes: D64.9 - Anemia, unspecified SNOMED: 775400612 (4) Acute respiratory failure ICD Codes: J96.00 - Acute respiratory failure, unspecified whether with hypoxia or hypercapnia SNOMED: 50551895 (5) Pneumonia ICD Codes: J18.9 - Pneumonia, unspecified organism SNOMED: 115189434 (6) Septic shock ICD Codes: A41.9 - Sepsis, unspecified organism; R65.21 - Severe sepsis with septic shock SNOMED: 99665232 (7) ATN (acute tubular necrosis) ICD Codes: N17.0 - Acute kidney failure with tubular necrosis SNOMED: 52170583 Status: unchanged Assessment/Plan vent abx wound care neph f/u gi eval, tpn since uanble to put gtube for now, cbc bmp am ltach eval Subjective Constitutional: Reports: weakness Allergies: Coded Allergies: No Known Allergies (Unverified , 08/14/18) All Systems: reviewed and negative except above Subjective trach vent altered on tpn Objective Last 24 Hour Vital Signs Date Time Temp Pulse Resp B/P (MAP) Pulse Ox O2 Delivery O2 Flow Rate FiO2 10/06/18 12:00 Mechanical Ventilator Mechanical Ventilator 10/06/18 12:00 30 10/06/18 12:00 99.0 90 18 124/84 99 Mechanical Ventilator 30 10/06/18 11:14 97 17 30 10/06/18 09:20 88 16 30 10/06/18 08:00 99.0 94 17 131/79 99 Mechanical Ventilator 30 10/06/18 08:00 30 10/06/18 08:00 Mechanical Ventilator Mechanical Ventilator 10/06/18 08:00 90 10/06/18 07:05 88 14 30 10/06/18 05:08 92 19 30 10/06/18 04:00 Mechanical Ventilator Mechanical Ventilator 10/06/18 04:00 30 10/06/18 04:00 98.9 88 14 125/82 100 Mechanical Ventilator 30 10/06/18 04:00 90 10/06/18 02:51 89 14 30 10/06/18 00:59 97 15 30 10/06/18 00:00 Mechanical Ventilator Mechanical Ventilator 10/06/18 00:00 99.0 98 15 120/70 99 Mechanical Ventilator 30 10/05/18 23:28 97 10/05/18 23:06 99 14 30 10/05/18 21:58 99.5 10/05/18 20:54 108 16 30 10/05/18 20:00 30 10/05/18 20:00 100.4 107 18 125/82 96 Mechanical Ventilator 30 10/05/18 20:00 Mechanical Ventilator Mechanical Ventilator 10/05/18 19:42 106 10/05/18 19:24 111 21 30 10/05/18 17:25 114 25 30 10/05/18 16:00 30 10/05/18 16:00 100 10/05/18 16:00 98.0 100 18 139/79 99 Mechanical Ventilator 30 10/05/18 16:00 Mechanical Ventilator Mechanical Ventilator 10/05/18 14:45 108 19 30 Intake and Output 10/05/18 10/06/18 19:00 07:00 Intake Total 1024.0 ml 804 ml Output Total 1220 ml 1430 ml Balance -196.0 ml -626 ml IV Total 1024.0 ml 804 ml Output Urine Total 1000 ml 1200 ml Stool Total 100 ml 150 ml Drainage Total 120 ml 80 ml Laboratory Tests 10/06/18 06:00: White Blood Count 14.3H, Red Blood Count 2.84L, Hemoglobin 8.4L, Hematocrit 25.5L, Mean Corpuscular Volume 90, Mean Corpuscular Hemoglobin 29.7, Mean Corpuscular Hemoglobin Concent 33.0, Red Cell Distribution Width 12.4, Platelet Count 760H, Mean Platelet Volume 6.5, Neutrophils (%) (Auto) 80.1H, Lymphocytes (%) (Auto) 9.5L, Monocytes (%) (Auto) 5.5, Eosinophils (%) (Auto) 4.0H, Basophils (%) (Auto) 0.9, Sodium Level 139, Potassium Level 3.4L, Chloride Level 107, Carbon Dioxide Level 25, Anion Gap 7, Blood Urea Nitrogen 10, Creatinine 0.9, Estimat Glomerular Filtration Rate > 60, Glucose Level 187H, Calcium Level 7.3L, Total Bilirubin 0.9, Aspartate Amino Transf (AST/SGOT) 23, Alanine Aminotransferase (ALT/SGPT) 15, Alkaline Phosphatase 87, Pro-B-Type Natriuretic Peptide 2878H, Total Protein 5.6L, Albumin 1.0L, Globulin 4.6, Albumin/Globulin Ratio 0.2L Height (Feet): 5 Height (Inches): 5.00 Weight (Pounds): 156 General Appearance: lethargic EENT: PERRL/EOMI Neck: normal alignment Cardiovascular: normal peripheral pulses, normal rate, regular rhythm Respiratory/Chest: chest wall non-tender, lungs clear, normal breath sounds Abdomen: normal bowel sounds, non tender, soft Extremities: normal inspection Edema: no edema noted Arm (L), no edema noted Arm (R), no edema noted Leg (L), no edema noted Leg (R), no edema noted Pedal (L), no edema noted Pedal (R), no edema noted Generalized Neurologic: motor weakness Skin: normal pigmentation, warm/dry Jasmeet Reynoso DO Oct 06, 2018 13:16
--- NOTE | 2018-10-06 13:44 | General Progress Note ---
Progress Note Progress Note Surgery: patient overall improving given baseline. he open eyes. responds to pain stimulus. midline wound improving and with good granulation tissue. recent CT reviewed. still with inflammation of stomach wall. no leak. no abscess drains noted and improving. more serous now. would not recommend PEG yet. still too much gastric inflammation and poor nutritional status would recommend cont TPN. can conceivable consider nasogastric tube feeds in near future cont with drain care cont with midline wound care okay to transfer to LTAC given improvement for snf care. Abx as per ID thank you CT findings: Interval abdominal surgery has been done. There is a scar in the midline anterior abdomen. There is a ELISABET drain present with the tip of the catheter and a left subdiaphragmatic region. There is severe abnormal wall thickening of the stomach again demonstrated. There is a what appears to be some intramural gas within the wall the stomach suspected. This was seen to some extent on the prior occasion as well in the anterior wall the stomach and may be associated with prior gastrostomy placement. The graft ostomy is no longer seen. There are abnormal enhancing mildly distended loops of colon and small bowel throughout the abdomen. Most of the small bowel loops are fluid-filled. There is a small amount of ascites. The gallbladder is noted. 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 There is a second drain in the right lower quadrant. Both kidneys enhance normally. There is no hydronephrosis. The liver is unremarkable. The pancreas is unremarkable. There is a rectal tube present. Anasarca noted. Silva catheter appears to be in good position. Thickening of the bladder wall is again noted. Isreal Lynne Oct 06, 2018 13:44
--- NOTE | 2018-10-06 14:00 | Progress Note ---
DATE: 10/06/2018 SUBJECTIVE: This is a 62-year-old male in ICU step-down. He has septic shock and anemia, confusion, disorganized thought process, poor cognition, worsened by stress of his medical illness. That is why, his attending has requested daily psychiatric consultation. MENTAL STATUS EXAMINATION: The patient is a 62-year-old male. Appearance is disheveled. Attitude, irritable and agitated. Affect, guarded and restricted. Intellect poor. Mood depressed and anxious. Motor activity, psychomotor agitation. Attention span is poor. Orientation x2. Speech is low volume and slurred. Thought process, disorganized and illogical. Insight and judgment is poor. DIAGNOSIS: Paranoid schizophrenia with acute exacerbation. PLAN: Continue treatment with a medication regimen consisting of Risperdal 0.25 mg a day and 20 minutes of behavior management provided. Chart is reviewed and discussed with staff. The patient is seen and assessed at bedside. Virgie Mcdermott M.D. DR: JAYSON JOB#: [id number] CC:
[2018-10-06 16:00] VITALS: BP 124/84
--- NOTE | 2018-10-06 16:21 | Cardiac Electrophysiology PN ---
Assessment/Plan Assessment/Plan 1. S/P Septic and hemorrhagic shock with Lactic acidosis. On Abx and S/P PRBC 2. Sinus tachycardia in 140s due to sepsis, anemia and dehydration. No fibrillation. EF 75%. 3. Troponin elevation due to renal failure. EF 75%. 4. VDRF. S/P Tracheostomy 09/22/18 5. Rhabdomyolysis with CPK in thousands contributing to renal failure. 6. Acute renal failure and severe hyperkalemia. FU by Dr. Smalls 7. Dysphagia, Hx of PEG placement but was dislodged. 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 8. GI bleed. S/P EGD by Dr. Horton. S/p PRBCs DW RN Subjective Subjective On the Vent via tracheostomy. On TPN and Lipid.No events Objective Last 24 Hour Vital Signs Date Time Temp Pulse Resp B/P (MAP) Pulse Ox O2 Delivery O2 Flow Rate FiO2 10/06/18 15:08 102 19 30 10/06/18 13:21 104 17 30 10/06/18 12:00 100 10/06/18 12:00 Mechanical Ventilator Mechanical Ventilator 10/06/18 12:00 30 10/06/18 12:00 99.0 90 18 124/84 99 Mechanical Ventilator 30 10/06/18 11:14 97 17 30 10/06/18 09:20 88 16 30 10/06/18 08:00 99.0 94 17 131/79 99 Mechanical Ventilator 30 10/06/18 08:00 30 10/06/18 08:00 Mechanical Ventilator Mechanical Ventilator 10/06/18 08:00 90 10/06/18 07:05 88 14 30 10/06/18 05:08 92 19 30 10/06/18 04:00 Mechanical Ventilator Mechanical Ventilator 10/06/18 04:00 30 10/06/18 04:00 98.9 88 14 125/82 100 Mechanical Ventilator 30 10/06/18 04:00 90 10/06/18 02:51 89 14 30 10/06/18 00:59 97 15 30 10/06/18 00:00 Mechanical Ventilator Mechanical Ventilator 10/06/18 00:00 99.0 98 15 120/70 99 Mechanical Ventilator 30 10/05/18 23:28 97 10/05/18 23:06 99 14 30 10/05/18 21:58 99.5 10/05/18 20:54 108 16 30 10/05/18 20:00 30 10/05/18 20:00 100.4 107 18 125/82 96 Mechanical Ventilator 30 10/05/18 20:00 Mechanical Ventilator Mechanical Ventilator 10/05/18 19:42 106 10/05/18 19:24 111 21 30 10/05/18 17:25 114 25 30 Intake and Output 10/05/18 10/06/18 18:59 06:59 Intake Total 847.0 ml 914 ml Output Total 1220 ml 1430 ml Balance -373.0 ml -516 ml IV Total 847.0 ml 914 ml Output Urine Total 1000 ml 1200 ml Stool Total 100 ml 150 ml Drainage Total 120 ml 80 ml Laboratory Tests Test 10/06/18 06:00 White Blood Count 14.3 K/UL (4.8-10.8) H Red Blood Count 2.84 M/UL (4.70-6.10) L Hemoglobin 8.4 G/DL (14.2-18.0) L Hematocrit 25.5 % (42.0-52.0) L Mean Corpuscular Volume 90 FL (80-99) Mean Corpuscular Hemoglobin 29.7 PG (27.0-31.0) Mean Corpuscular Hemoglobin Concent 33.0 G/DL (32.0-36.0) Red Cell Distribution Width 12.4 % (11.6-14.8) Platelet Count 760 K/UL (150-450) H Mean Platelet Volume 6.5 FL (6.5-10.1) Neutrophils (%) (Auto) 80.1 % (45.0-75.0) H Lymphocytes (%) (Auto) 9.5 % (20.0-45.0) L Monocytes (%) (Auto) 5.5 % (1.0-10.0) Eosinophils (%) (Auto) 4.0 % (0.0-3.0) H Basophils (%) (Auto) 0.9 % (0.0-2.0) Sodium Level 139 MMOL/L (136-145) Potassium Level 3.4 MMOL/L (3.5-5.1) L Chloride Level 107 MMOL/L (98-107) Carbon Dioxide Level 25 MMOL/L (21-32) Anion Gap 7 mmol/L (5-15) Blood Urea Nitrogen 10 mg/dL (7-18) Creatinine 0.9 MG/DL (0.55-1.30) Estimat Glomerular Filtration Rate > 60 mL/min (>60) Glucose Level 187 MG/DL (74-106) H Calcium Level 7.3 MG/DL (8.5-10.1) L Total Bilirubin 0.9 MG/DL (0.2-1.0) Aspartate Amino Transf (AST/SGOT) 23 U/L (15-37) Alanine Aminotransferase (ALT/SGPT) 15 U/L (12-78) Alkaline Phosphatase 87 U/L (46-116) Pro-B-Type Natriuretic Peptide 2878 pg/mL (0-125) H Total Protein 5.6 G/DL (6.4-8.2) L Albumin 1.0 G/DL (3.4-5.0) L Globulin 4.6 g/dL Albumin/Globulin Ratio 0.2 (1.0-2.7) L Objective HEENT: S/P tracheostomy. LUNGS: Coarse rhonchi. CARDIOVASCULAR: Regular S1 and S2. ABDOMEN: Incision slightly oozing and has 2 drains EXTREMITIES: No pitting edema. Jasbir Madsen MD Oct 06, 2018 16:21
[2018-10-06] MEDS: Micafungin 100 MG in NS 110 ML IVPB SCH (18:23)
[2018-10-06 20:00] VITALS: BP 125/82
[2018-10-06] MEDS: Dyna-Hex 2% Top Sol 2oz TOPIC SCH (20:46)
--- NOTE | 2018-10-06 21:56 | Nephrology Progress Note ---
Assessment/Plan Problem List: (1) ATN (acute tubular necrosis) Assessment: Cr rising post op but lowering (2) Septic shock (3) Lactic acid acidosis (4) Metabolic acidosis (5) Hyperkalemia (6) G tube feedings (7) Acute respiratory failure Assessment post op 09/22/18: Trach, Splenectomy, Perf.... over all improved: cr rising again presented with Shock , likely septic Acute renal failure resolved Acute metabolic acidosis resolved Hyperkalemia PEG Recent Pneumonia Plan plan: K and Phos supplements as needed on tpn now trached 09/22 post laparatomy 09/22 off pressors pulmonary support Fluid challenge as needed Silva K and Phos and Mag supplement as needed antibiotics monitor renal parameters and ABG poor prognosis Subjective ROS Limited/Unobtainable: Yes Objective Objective Last 24 Hour Vital Signs Date Time Temp Pulse Resp B/P (MAP) Pulse Ox O2 Delivery O2 Flow Rate FiO2 10/06/18 21:12 99 16 30 10/06/18 20:00 99.7 100 19 125/82 99 Mechanical Ventilator 30 10/06/18 19:59 105 10/06/18 19:00 103 20 30 10/06/18 17:10 110 20 30 10/06/18 16:00 97 10/06/18 16:00 30 10/06/18 16:00 Mechanical Ventilator Mechanical Ventilator 10/06/18 16:00 99.8 100 17 124/84 99 Mechanical Ventilator 30 10/06/18 15:08 102 19 30 10/06/18 13:21 104 17 30 10/06/18 12:00 100 10/06/18 12:00 Mechanical Ventilator Mechanical Ventilator 10/06/18 12:00 30 10/06/18 12:00 99.0 90 18 124/84 99 Mechanical Ventilator 30 10/06/18 11:14 97 17 30 10/06/18 09:20 88 16 30 10/06/18 08:00 99.0 94 17 131/79 99 Mechanical Ventilator 30 10/06/18 08:00 30 10/06/18 08:00 Mechanical Ventilator Mechanical Ventilator 10/06/18 08:00 90 10/06/18 07:05 88 14 30 10/06/18 05:08 92 19 30 10/06/18 04:00 Mechanical Ventilator Mechanical Ventilator 10/06/18 04:00 30 10/06/18 04:00 98.9 88 14 125/82 100 Mechanical Ventilator 30 10/06/18 04:00 90 10/06/18 02:51 89 14 30 10/06/18 00:59 97 15 30 10/06/18 00:00 Mechanical Ventilator Mechanical Ventilator 10/06/18 00:00 99.0 98 15 120/70 99 Mechanical Ventilator 30 10/05/18 23:28 97 10/05/18 23:06 99 14 30 10/05/18 21:58 99.5 Intake and Output 10/05/18 10/06/18 18:59 06:59 Intake Total 847.0 ml 914 ml Output Total 1220 ml 1430 ml Balance -373.0 ml -516 ml IV Total 847.0 ml 914 ml Output Urine Total 1000 ml 1200 ml Stool Total 100 ml 150 ml Drainage Total 120 ml 80 ml Laboratory Tests 10/06/18 06:00: White Blood Count 14.3H, Red Blood Count 2.84L, Hemoglobin 8.4L, Hematocrit 25.5L, Mean Corpuscular Volume 90, Mean Corpuscular Hemoglobin 29.7, Mean Corpuscular Hemoglobin Concent 33.0, Red Cell Distribution Width 12.4, Platelet Count 760H, Mean Platelet Volume 6.5, Neutrophils (%) (Auto) 80.1H, Lymphocytes (%) (Auto) 9.5L, Monocytes (%) (Auto) 5.5, Eosinophils (%) (Auto) 4.0H, Basophils (%) (Auto) 0.9, Sodium Level 139, Potassium Level 3.4L, Chloride Level 107, Carbon Dioxide Level 25, Anion Gap 7, Blood Urea Nitrogen 10, Creatinine 0.9, Estimat Glomerular Filtration Rate > 60, Glucose Level 187H, Calcium Level 7.3L, Total Bilirubin 0.9, Aspartate Amino Transf (AST/SGOT) 23, Alanine Aminotransferase (ALT/SGPT) 15, Alkaline Phosphatase 87, Pro-B-Type Natriuretic Peptide 2878H, Total Protein 5.6L, Albumin 1.0L, Globulin 4.6, Albumin/Globulin Ratio 0.2L Height (Feet): 5 Height (Inches): 5.00 Weight (Pounds): 156 General Appearance: no apparent distress Cardiovascular: tachycardia Respiratory/Chest: decreased breath sounds Abdomen: distended Objective no other changes Josesito Smalls MD Oct 06, 2018 21:56
[2018-10-07] VITALS (21 sets, daily range): BP systolic 46–134; BP diastolic 22–91
[2018-10-07] MEDS: FAT EMULSION 20% IV SCH (04:33)
[2018-10-07] MEDS: TPN IV SCH (04:33)
[2018-10-07] MEDS: Piperacillin/Tazobactam 3.375 GM in NS 110 ML IVPB SCH ×3 (05:18→22:03)
[2018-10-07] MEDS: NovoLOG Insulin Flexpen SUBQ SCH ×3 (05:19→18:04)
[2018-10-07 06:20] LABS: EOSINOPHILS % (AUTO) 3.2 % (0.0-3.0); HEMATOCRIT 24.9 % (42.0-52.0); HEMOGLOBIN 8.3 G/DL (14.2-18.0); LYMPHOCYTES % (AUTO) 6.8 % (20.0-45.0); MEAN CORPUSCULAR VOLUME 89 FL (80-99); MONOCYTES % (AUTO) 6.8 % (1.0-10.0); NEUTROPHILS % (AUTO) 82.2 % (45.0-75.0); PLATELET COUNT 731 K/UL (150-450); RED BLOOD COUNT 2.79 M/UL (4.70-6.10); WHITE BLOOD COUNT 14.7 K/UL (4.8-10.8)
[2018-10-07 06:40] LABS: ALANINE AMINOTRANSFERASE 16 U/L (12-78); ALBUMIN 1.1 G/DL (3.4-5.0); ALBUMIN/GLOBULIN RATIO 0.2 (1.0-2.7); ALKALINE PHOSPHATASE 84 U/L (46-116); ANION GAP 7 mmol/L (5-15); ASPARTATE AMINO TRANSFERASE 21 U/L (15-37); BILIRUBIN,TOTAL 0.4 MG/DL (0.2-1.0); BLOOD UREA NITROGEN 10 mg/dL (7-18); CALCIUM 7.3 MG/DL (8.5-10.1); CARBON DIOXIDE 25 MMOL/L (21-32); CHLORIDE 105 MMOL/L (98-107); CREATININE 0.9 MG/DL (0.55-1.30); PHOSPHORUS 2.2 MG/DL (2.5-4.9); POTASSIUM 3.3 MMOL/L (3.5-5.1); SODIUM 137 MMOL/L (136-145)
--- NOTE | 2018-10-07 07:25 | General Progress Note ---
Assessment/Plan Problem List: (1) UTI (urinary tract infection) ICD Codes: N39.0 - Urinary tract infection, site not specified SNOMED: 58471591 (2) Renal failure ICD Codes: N19 - Unspecified kidney failure SNOMED: 67777031 (3) Anemia ICD Codes: D64.9 - Anemia, unspecified SNOMED: 321887152 (4) Acute respiratory failure ICD Codes: J96.00 - Acute respiratory failure, unspecified whether with hypoxia or hypercapnia SNOMED: 34835954 (5) Pneumonia ICD Codes: J18.9 - Pneumonia, unspecified organism SNOMED: 824383191 (6) Septic shock ICD Codes: A41.9 - Sepsis, unspecified organism; R65.21 - Severe sepsis with septic shock SNOMED: 37390887 (7) ATN (acute tubular necrosis) ICD Codes: N17.0 - Acute kidney failure with tubular necrosis SNOMED: 10541640 Status: unchanged Assessment/Plan vent abx wound care neph f/u gi eval, tpn cbc bmp am ltach eval Subjective Constitutional: Reports: weakness Allergies: Coded Allergies: No Known Allergies (Unverified , 08/14/18) All Systems: reviewed and negative except above Subjective trach vent altered on tpn Objective Last 24 Hour Vital Signs Date Time Temp Pulse Resp B/P (MAP) Pulse Ox O2 Delivery O2 Flow Rate FiO2 10/07/18 06:57 96 16 30 10/07/18 05:14 108 21 30 10/07/18 04:00 Mechanical Ventilator Mechanical Ventilator 10/07/18 04:00 99.0 102 16 128/85 100 Mechanical Ventilator 30 10/07/18 04:00 30 10/07/18 03:41 101 14 30 10/07/18 03:25 96 10/07/18 00:49 102 20 30 10/07/18 00:00 30 10/07/18 00:00 Mechanical Ventilator Mechanical Ventilator 10/07/18 00:00 98.8 108 18 129/83 100 Mechanical Ventilator 30 10/06/18 23:57 103 10/06/18 22:38 105 21 30 10/06/18 21:12 99 16 30 10/06/18 20:00 99.7 100 19 125/82 99 Mechanical Ventilator 30 10/06/18 20:00 Mechanical Ventilator Mechanical Ventilator 10/06/18 20:00 30 10/06/18 19:59 105 10/06/18 19:00 103 20 30 10/06/18 17:10 110 20 30 10/06/18 16:00 97 10/06/18 16:00 30 10/06/18 16:00 Mechanical Ventilator Mechanical Ventilator 10/06/18 16:00 99.8 100 17 124/84 99 Mechanical Ventilator 30 10/06/18 15:08 102 19 30 10/06/18 13:21 104 17 30 10/06/18 12:00 100 10/06/18 12:00 Mechanical Ventilator Mechanical Ventilator 10/06/18 12:00 30 10/06/18 12:00 99.0 90 18 124/84 99 Mechanical Ventilator 30 10/06/18 11:14 97 17 30 10/06/18 09:20 88 16 30 10/06/18 08:00 99.0 94 17 131/79 99 Mechanical Ventilator 30 10/06/18 08:00 30 10/06/18 08:00 Mechanical Ventilator Mechanical Ventilator 10/06/18 08:00 90 Intake and Output 10/06/18 10/07/18 19:00 07:00 Intake Total 804 ml 823.0 ml Output Total 948 ml 2135 ml Balance -144 ml -1312.0 ml IV Total 804 ml 823.0 ml Output Urine Total 750 ml 2000 ml Stool Total 100 ml 25 ml Drainage Total 98 ml 110 ml Laboratory Tests 10/07/18 04:40: White Blood Count 14.7H, Red Blood Count 2.79L, Hemoglobin 8.3L, Hematocrit 24.9L, Mean Corpuscular Volume 89, Mean Corpuscular Hemoglobin 29.9, Mean Corpuscular Hemoglobin Concent 33.4, Red Cell Distribution Width 13.0, Platelet Count 731H, Mean Platelet Volume 6.5, Neutrophils (%) (Auto) 82.2H, Lymphocytes (%) (Auto) 6.8L, Monocytes (%) (Auto) 6.8, Eosinophils (%) (Auto) 3.2H, Basophils (%) (Auto) 1.0, Sodium Level 137, Potassium Level 3.3L, Chloride Level 105, Carbon Dioxide Level 25, Anion Gap 7, Blood Urea Nitrogen 10, Creatinine 0.9, Estimat Glomerular Filtration Rate > 60, Glucose Level 189H, Calcium Level 7.3L, Phosphorus Level 2.2L, Magnesium Level 1.6L, Total Bilirubin 0.4, Aspartate Amino Transf (AST/SGOT) 21, Alanine Aminotransferase ( ALT/SGPT) 16, Alkaline Phosphatase 84, Total Protein 5.8L, Albumin 1.1L, Globulin 4.7, Albumin/Globulin Ratio 0.2L Height (Feet): 5 Height (Inches): 5.00 Weight (Pounds): 153 General Appearance: lethargic EENT: normal ENT inspection Neck: normal alignment Cardiovascular: normal peripheral pulses, normal rate, regular rhythm Respiratory/Chest: chest wall non-tender, lungs clear, normal breath sounds Abdomen: normal bowel sounds, non tender, soft Extremities: normal inspection Edema: no edema noted Arm (L), no edema noted Arm (R), no edema noted Leg (L), no edema noted Leg (R), no edema noted Pedal (L), no edema noted Pedal (R), no edema noted Generalized Neurologic: motor weakness Skin: normal pigmentation, warm/dry Jasmeet Reynoso DO Oct 07, 2018 07:24
[2018-10-07] MEDS: Heparin 5000 units/ml inj SUBQ SCH (08:17)
[2018-10-07] MEDS: Pantoprazole Inj IVP SCH ×2 (08:17→22:02)
[2018-10-07] MEDS: Phytonadione 10 mg/mL 1ml amp SUBQ SCH (08:37)
--- NOTE | 2018-10-07 11:17 | GI Progress Note ---
Assessment/Plan Problems: (1) G tube feedings ICD Codes: Z93.1 - Gastrostomy status SNOMED: 360236906, 636710146 (2) Protein-calorie malnutrition, severe ICD Codes: E43 - Unspecified severe protein-calorie malnutrition SNOMED: 004823935 (3) Anemia ICD Codes: D64.9 - Anemia, unspecified SNOMED: 819149201 (4) GI bleed ICD Codes: K92.2 - Gastrointestinal hemorrhage, unspecified SNOMED: 79953685 Status: unchanged Status Narrative Discussed with Dr. Horton. Assessment/Plan s/p repair of gastric perforation RECOMMENDATIONS: fu surgical recommendations TPN prn transfusion ppi abx fu labs The patient was seen and examined at bedside and all new and available data was reviewed in the patients chart. I agree with the above findings, impression and plan. (Patient seen earlier today. Signature stamp does not reflect patient encounter time.). - Arthur Horton MD Subjective Subjective limited Objective Last 24 Hour Vital Signs Date Time Temp Pulse Resp B/P (MAP) Pulse Ox O2 Delivery O2 Flow Rate FiO2 10/07/18 09:00 101 17 30 10/07/18 08:00 Mechanical Ventilator Mechanical Ventilator 10/07/18 08:00 98.1 102 16 127/82 99 Mechanical Ventilator 30 10/07/18 08:00 30 10/07/18 07:37 97 10/07/18 06:57 96 16 30 10/07/18 05:14 108 21 30 10/07/18 04:00 Mechanical Ventilator Mechanical Ventilator 10/07/18 04:00 99.0 102 16 128/85 100 Mechanical Ventilator 30 10/07/18 04:00 30 10/07/18 03:41 101 14 30 10/07/18 03:25 96 10/07/18 00:49 102 20 30 10/07/18 00:00 30 10/07/18 00:00 Mechanical Ventilator Mechanical Ventilator 10/07/18 00:00 98.8 108 18 129/83 100 Mechanical Ventilator 30 10/06/18 23:57 103 10/06/18 22:38 105 21 30 10/06/18 21:12 99 16 30 10/06/18 20:00 99.7 100 19 125/82 99 Mechanical Ventilator 30 10/06/18 20:00 Mechanical Ventilator Mechanical Ventilator 10/06/18 20:00 30 10/06/18 19:59 105 10/06/18 19:00 103 20 30 10/06/18 17:10 110 20 30 10/06/18 16:00 97 10/06/18 16:00 30 10/06/18 16:00 Mechanical Ventilator Mechanical Ventilator 10/06/18 16:00 99.8 100 17 124/84 99 Mechanical Ventilator 30 10/06/18 15:08 102 19 30 10/06/18 13:21 104 17 30 10/06/18 12:00 100 10/06/18 12:00 Mechanical Ventilator Mechanical Ventilator 10/06/18 12:00 30 10/06/18 12:00 99.0 90 18 124/84 99 Mechanical Ventilator 30 Intake and Output 10/06/18 10/07/18 19:00 07:00 Intake Total 804 ml 1050.65 ml Output Total 948 ml 2135 ml Balance -144 ml -1084.35 ml IV Total 804 ml 1050.65 ml Output Urine Total 750 ml 2000 ml Stool Total 100 ml 25 ml Drainage Total 98 ml 110 ml Laboratory Tests Test 10/07/18 04:40 White Blood Count 14.7 K/UL (4.8-10.8) H Red Blood Count 2.79 M/UL (4.70-6.10) L Hemoglobin 8.3 G/DL (14.2-18.0) L Hematocrit 24.9 % (42.0-52.0) L Mean Corpuscular Volume 89 FL (80-99) Mean Corpuscular Hemoglobin 29.9 PG (27.0-31.0) Mean Corpuscular Hemoglobin Concent 33.4 G/DL (32.0-36.0) Red Cell Distribution Width 13.0 % (11.6-14.8) Platelet Count 731 K/UL (150-450) H Mean Platelet Volume 6.5 FL (6.5-10.1) Neutrophils (%) (Auto) 82.2 % (45.0-75.0) H Lymphocytes (%) (Auto) 6.8 % (20.0-45.0) L Monocytes (%) (Auto) 6.8 % (1.0-10.0) Eosinophils (%) (Auto) 3.2 % (0.0-3.0) H Basophils (%) (Auto) 1.0 % (0.0-2.0) Sodium Level 137 MMOL/L (136-145) Potassium Level 3.3 MMOL/L (3.5-5.1) L Chloride Level 105 MMOL/L (98-107) Carbon Dioxide Level 25 MMOL/L (21-32) Anion Gap 7 mmol/L (5-15) Blood Urea Nitrogen 10 mg/dL (7-18) Creatinine 0.9 MG/DL (0.55-1.30) Estimat Glomerular Filtration Rate > 60 mL/min (>60) Glucose Level 189 MG/DL (74-106) H Calcium Level 7.3 MG/DL (8.5-10.1) L Phosphorus Level 2.2 MG/DL (2.5-4.9) L Magnesium Level 1.6 MG/DL (1.8-2.4) L Total Bilirubin 0.4 MG/DL (0.2-1.0) Aspartate Amino Transf (AST/SGOT) 21 U/L (15-37) Alanine Aminotransferase (ALT/SGPT) 16 U/L (12-78) Alkaline Phosphatase 84 U/L (46-116) Total Protein 5.8 G/DL (6.4-8.2) L Albumin 1.1 G/DL (3.4-5.0) L Globulin 4.7 g/dL Albumin/Globulin Ratio 0.2 (1.0-2.7) L Height (Feet): 5 Height (Inches): 5.00 Weight (Pounds): 153 General Appearance: WD/WN, no apparent distress, alert Cardiovascular: normal rate Respiratory/Chest: normal breath sounds, no respiratory distress Abdominal Exam: normal bowel sounds, non tender, soft Extremities: normal range of motion, non-tender Becki Holt NP Oct 07, 2018 11:17
--- NOTE | 2018-10-07 11:50 | Pulmonolgy Critical Care Note ---
Critical Care - Asmt/Plan Problems: (1) Acute respiratory failure (2) Septic shock (3) ATN (acute tubular necrosis) (4) Metabolic acidosis (5) Gastric rupture Assessment/Plan: wbc still high, low grade fever Respiratory: monitor respiratory rate, adjust FIO2 Cardiac: continue to monitor HR/BP Renal: F/U I&O, keep IV fluid, check electrolytes Infectious Disease: check cultures Gastrointestinal: continue feedings/current rate Endocrine: monitor blood sugar, check TSH Hematologic: monitor H/H, transfuse if hgb<8.5 Neurologic: PRN Ativan, keep patient comfortable Prophylaxis: Protonix, Heparin Notes Reviewed: java software engineer, cardio Discussed with: nurses, consultants, pillowcase folderdealership general manager - Objective Last 24 Hour Vital Signs Date Time Temp Pulse Resp B/P (MAP) Pulse Ox O2 Delivery O2 Flow Rate FiO2 10/07/18 09:00 101 17 30 10/07/18 08:00 Mechanical Ventilator Mechanical Ventilator 10/07/18 08:00 98.1 102 16 127/82 99 Mechanical Ventilator 30 10/07/18 08:00 30 10/07/18 07:37 97 10/07/18 06:57 96 16 30 10/07/18 05:14 108 21 30 10/07/18 04:00 Mechanical Ventilator Mechanical Ventilator 10/07/18 04:00 99.0 102 16 128/85 100 Mechanical Ventilator 30 10/07/18 04:00 30 10/07/18 03:41 101 14 30 10/07/18 03:25 96 10/07/18 00:49 102 20 30 10/07/18 00:00 30 10/07/18 00:00 Mechanical Ventilator Mechanical Ventilator 10/07/18 00:00 98.8 108 18 129/83 100 Mechanical Ventilator 30 10/06/18 23:57 103 10/06/18 22:38 105 21 30 10/06/18 21:12 99 16 30 10/06/18 20:00 99.7 100 19 125/82 99 Mechanical Ventilator 30 10/06/18 20:00 Mechanical Ventilator Mechanical Ventilator 10/06/18 20:00 30 10/06/18 19:59 105 10/06/18 19:00 103 20 30 10/06/18 17:10 110 20 30 10/06/18 16:00 97 10/06/18 16:00 30 10/06/18 16:00 Mechanical Ventilator Mechanical Ventilator 10/06/18 16:00 99.8 100 17 124/84 99 Mechanical Ventilator 30 10/06/18 15:08 102 19 30 10/06/18 13:21 104 17 30 10/06/18 12:00 100 10/06/18 12:00 Mechanical Ventilator Mechanical Ventilator 10/06/18 12:00 30 10/06/18 12:00 99.0 90 18 124/84 99 Mechanical Ventilator 30 Status: awake Condition: critical Neck: full ROM Lungs: chest wall tender Heart: HR/BP stable, regular Abdomen: non-tender, feeding tube Extremities: edema Decubiti: location Accucheck: 194 Critical Care - Subjective Condition: critical EKG Rhythm: Sinus Rhythm FI02: 30 Vent Support Breath Rate: 12 Vent Support Mode: AC Vent Tidal Volume: 500 Sputum Amount: Moderate PEEP: 0.0 PIP: 19 Tube Feeding Amount: 0 I&O: Intake and Output 10/06/18 10/07/18 19:00 07:00 Intake Total 804 ml 1050.65 ml Output Total 948 ml 2135 ml Balance -144 ml -1084.35 ml IV Total 804 ml 1050.65 ml Output Urine Total 750 ml 2000 ml Stool Total 100 ml 25 ml Drainage Total 98 ml 110 ml CXR: low volumes bilateral infiltrate Labs: Laboratory Tests Test 10/07/18 04:40 White Blood Count 14.7 K/UL (4.8-10.8) H Red Blood Count 2.79 M/UL (4.70-6.10) L Hemoglobin 8.3 G/DL (14.2-18.0) L Hematocrit 24.9 % (42.0-52.0) L Mean Corpuscular Volume 89 FL (80-99) Mean Corpuscular Hemoglobin 29.9 PG (27.0-31.0) Mean Corpuscular Hemoglobin Concent 33.4 G/DL (32.0-36.0) Red Cell Distribution Width 13.0 % (11.6-14.8) Platelet Count 731 K/UL (150-450) H Mean Platelet Volume 6.5 FL (6.5-10.1) Neutrophils (%) (Auto) 82.2 % (45.0-75.0) H Lymphocytes (%) (Auto) 6.8 % (20.0-45.0) L Monocytes (%) (Auto) 6.8 % (1.0-10.0) Eosinophils (%) (Auto) 3.2 % (0.0-3.0) H Basophils (%) (Auto) 1.0 % (0.0-2.0) Sodium Level 137 MMOL/L (136-145) Potassium Level 3.3 MMOL/L (3.5-5.1) L Chloride Level 105 MMOL/L (98-107) Carbon Dioxide Level 25 MMOL/L (21-32) Anion Gap 7 mmol/L (5-15) Blood Urea Nitrogen 10 mg/dL (7-18) Creatinine 0.9 MG/DL (0.55-1.30) Estimat Glomerular Filtration Rate > 60 mL/min (>60) Glucose Level 189 MG/DL (74-106) H Calcium Level 7.3 MG/DL (8.5-10.1) L Phosphorus Level 2.2 MG/DL (2.5-4.9) L Magnesium Level 1.6 MG/DL (1.8-2.4) L Total Bilirubin 0.4 MG/DL (0.2-1.0) Aspartate Amino Transf (AST/SGOT) 21 U/L (15-37) Alanine Aminotransferase (ALT/SGPT) 16 U/L (12-78) Alkaline Phosphatase 84 U/L (46-116) Total Protein 5.8 G/DL (6.4-8.2) L Albumin 1.1 G/DL (3.4-5.0) L Globulin 4.7 g/dL Albumin/Globulin Ratio 0.2 (1.0-2.7) L Po Li MD Oct 07, 2018 11:50
--- NOTE | 2018-10-07 12:08 | Infectious Diseases Prog Note ---
Assessment/Plan Assessment/Plan 62 yo male with PMHx of Quadriplegia with G-tube, HTN, DM and Schizophenia who was [facility]. Displaced GT with perforation c/w peritonitis and hematoma/abscess formation -10/02 CT abd/p: Interval exploratory laparotomy, status post splenectomy, status post removal of gastrostomy tube with 2 abdominal drains noted. Abnormal appearance of the stomach with marked wall thickening and pneumatosis. Abnormal appearance of small bowel and large bowel showing wall thickening and enhancement may be related to enteritis and/or colitis. Trace ascites -09/22 SP Exploratory laparotomy. Repair of gastric perforation. Evacuation of abdominal omental / lesser sac hematoma. Evacuation of perisplenic hematoma/ abscess. Omentectomy. Splenectomy. Abdominal washout. Tracheostomy. -09/21 CT abd/p: The gastrostomy tube appears to be partially intraluminal and partially communicate with a large intramural collection involving mostly the inferior posterior wall of the stomach. There is some anterior wall pneumatosis. Contrast within the collection most likely represents instilled enteric contrast, but could also represent extravasated vascular contrast. There is evidence of rupture of this collection into the peritoneal space, with extravasated contrast in the left upper quadrant. There is anterior gastric wall intramural pneumatosis as well as a small amount of free extraluminal gas. Moderate ascites. Enhancement of much of the peritoneum raises concern for peritonitis. There may also be loculated intraperitoneal collections which could represent abscesses, predominantly adjacent to the tip of the right hepatic lobe, subcapsular in the spleen, and within the left upper quadrant. Thick-walled sigmoid colon, transverse colon and equivocally the proximal jejunum. Likely reactive related to the above, but could also indicate enteritis /colitis changes Septic shock 2ry to above, SP Leukocytosis, recurrent worsened-after procedure; increased -09/29 L ELISABET drain (+purulebnt fluid) cx : C. tropicalis -09/28 u/a neg, ucx NTD Bcx NTD CXR: Over one day, interim development of bilateral supraclavicular subcutaneous emphysema and pneumomediastinum, etiology not demonstrated. Persistent low lung volumes with basilar atelectatic changes and left-sided pleural effusion -09/20 ucx NTD; u/a neg -09/19 CXR: Bilateral pleural effusions and bibasilar atelectasis/airspace disease are stable. Low grade fever; SP Diarrhea- -09/27 Cdiff neg GIB Sepsis - Probably PNA , s/p Rx 09/22 CXR: Bilateral pleural effusions, basilar atelectatic changes, and interstitial congestive changes are stable CXR 09/07/18 - possible left sided consolidation Inf neg 09/07/18 BCx 2/2 sets diphteroids, 1/2 setse S. epi (contaminants); 09/11 Bcx NTD 09/07/18 SCx - NF 09/07/18 UCx - Neg 09/09 Cdiff neg HTN DM Schizophenia Quadriplegia. G- tube dependent Plan -Continue Zosyn #16 and IV Micafungin #15 in the setting of stomach perforation and intraabdominal fluid collections --minimum of 2 weeks but will continue abx until drains have been removed -f/u cx -09/28 SP Flagyl #3 - 09/19/18 SP Zosyn #10 - 09/17/18 SP Vancmocyin #10 - 09/09/18 Ertapenem #3 - Monitor CBC and temps -Sx f/u -wound care We will continue to follow the patient during this hospitalization. Subjective Allergies: Coded Allergies: No Known Allergies (Unverified , 08/14/18) Subjective afebrile >36hrs wbc at 14 Objective Vital Signs Last 24 Hour Vital Signs Date Time Temp Pulse Resp B/P (MAP) Pulse Ox O2 Delivery O2 Flow Rate FiO2 10/07/18 09:00 101 17 30 10/07/18 08:00 Mechanical Ventilator Mechanical Ventilator 10/07/18 08:00 98.1 102 16 127/82 99 Mechanical Ventilator 30 10/07/18 08:00 30 10/07/18 07:37 97 10/07/18 06:57 96 16 30 10/07/18 05:14 108 21 30 10/07/18 04:00 Mechanical Ventilator Mechanical Ventilator 10/07/18 04:00 99.0 102 16 128/85 100 Mechanical Ventilator 30 10/07/18 04:00 30 10/07/18 03:41 101 14 30 10/07/18 03:25 96 10/07/18 00:49 102 20 30 10/07/18 00:00 30 10/07/18 00:00 Mechanical Ventilator Mechanical Ventilator 10/07/18 00:00 98.8 108 18 129/83 100 Mechanical Ventilator 30 10/06/18 23:57 103 10/06/18 22:38 105 21 30 10/06/18 21:12 99 16 30 10/06/18 20:00 99.7 100 19 125/82 99 Mechanical Ventilator 30 10/06/18 20:00 Mechanical Ventilator Mechanical Ventilator 10/06/18 20:00 30 10/06/18 19:59 105 10/06/18 19:00 103 20 30 10/06/18 17:10 110 20 30 10/06/18 16:00 97 10/06/18 16:00 30 10/06/18 16:00 Mechanical Ventilator Mechanical Ventilator 10/06/18 16:00 99.8 100 17 124/84 99 Mechanical Ventilator 30 10/06/18 15:08 102 19 30 10/06/18 13:21 104 17 30 10/06/18 12:00 100 10/06/18 12:00 Mechanical Ventilator Mechanical Ventilator 10/06/18 12:00 30 10/06/18 12:00 99.0 90 18 124/84 99 Mechanical Ventilator 30 Height (Feet): 5 Height (Inches): 5.00 Weight (Pounds): 153 Objective Gen: NAD, On vent satting well 35% O2 HEENT: NCAT, MMM, EOMI LUNGS: CTAB, No W/C, CARDS: RRR, S1, S2, No M/R/G, ABD: Soft, NT, distended, + BS,G tube (No E/P) NEURO: Intubated, not following Laboratory Tests Test 10/07/18 04:40 White Blood Count 14.7 K/UL (4.8-10.8) H Red Blood Count 2.79 M/UL (4.70-6.10) L Hemoglobin 8.3 G/DL (14.2-18.0) L Hematocrit 24.9 % (42.0-52.0) L Mean Corpuscular Volume 89 FL (80-99) Mean Corpuscular Hemoglobin 29.9 PG (27.0-31.0) Mean Corpuscular Hemoglobin Concent 33.4 G/DL (32.0-36.0) Red Cell Distribution Width 13.0 % (11.6-14.8) Platelet Count 731 K/UL (150-450) H Mean Platelet Volume 6.5 FL (6.5-10.1) Neutrophils (%) (Auto) 82.2 % (45.0-75.0) H Lymphocytes (%) (Auto) 6.8 % (20.0-45.0) L Monocytes (%) (Auto) 6.8 % (1.0-10.0) Eosinophils (%) (Auto) 3.2 % (0.0-3.0) H Basophils (%) (Auto) 1.0 % (0.0-2.0) Sodium Level 137 MMOL/L (136-145) Potassium Level 3.3 MMOL/L (3.5-5.1) L Chloride Level 105 MMOL/L (98-107) Carbon Dioxide Level 25 MMOL/L (21-32) Anion Gap 7 mmol/L (5-15) Blood Urea Nitrogen 10 mg/dL (7-18) Creatinine 0.9 MG/DL (0.55-1.30) Estimat Glomerular Filtration Rate > 60 mL/min (>60) Glucose Level 189 MG/DL (74-106) H Calcium Level 7.3 MG/DL (8.5-10.1) L Phosphorus Level 2.2 MG/DL (2.5-4.9) L Magnesium Level 1.6 MG/DL (1.8-2.4) L Total Bilirubin 0.4 MG/DL (0.2-1.0) Aspartate Amino Transf (AST/SGOT) 21 U/L (15-37) Alanine Aminotransferase (ALT/SGPT) 16 U/L (12-78) Alkaline Phosphatase 84 U/L (46-116) Total Protein 5.8 G/DL (6.4-8.2) L Albumin 1.1 G/DL (3.4-5.0) L Globulin 4.7 g/dL Albumin/Globulin Ratio 0.2 (1.0-2.7) L Current Medications Medications (Trade) Dose Ordered Sig/Julito Route PRN Reason Start Time Stop Time Status Last Admin Dose Admin Acetaminophen (Tylenol) 650 mg Q4H PRN NG Mild Pain/Temp > 100.5 09/24/18 12:15 10/08/18 12:14 Acetaminophen (Tylenol) 650 mg Q4H PRN RECTAL Mild Pain (Pain Scale 1-3) 09/25/18 21:00 10/25/18 20:59 10/05/18 21:28 Albuterol/ Ipratropium (Albuterol/ Ipratropium) 3 ml Q4HRT PRN HHN sob 10/03/18 12:00 10/08/18 11:59 Chlorhexidine Gluconate (Camila-Hex 2%) 1 applic DAILY@2000 TOPIC 09/24/18 20:00 10/15/18 19:59 10/06/18 20:46 Dextrose (Dextrose 50%) 25 ml Q30M PRN IV Hypoglycemia 09/24/18 12:30 10/08/18 13:29 Dextrose (Dextrose 50%) 50 ml Q30M PRN IV Hypoglycemia 09/24/18 12:30 10/08/18 13:29 Fat Emulsion Intravenous 216 ml/Amino Acids/ Electrolytes/ Dextrose 1,608 ml @ 67 mls/hr Q24H IV 09/25/18 05:30 10/25/18 05:29 10/07/18 04:33 Heparin Sodium (Porcine) (Heparin 5000 units/ml) 5,000 units EVERY 12 HOURS SUBQ 09/24/18 21:00 10/07/18 20:59 10/06/18 08:36 Insulin Aspart (NovoLOG) Q6HR SUBQ 09/24/18 12:00 10/08/18 11:59 10/07/18 11:38 Loperamide HCl (Imodium) 4 mg TIDPRN PRN ORAL Diarrhea 09/24/18 12:15 10/10/18 12:14 Magnesium Sulfate 100 ml @ 100 mls/hr Q1H IVPB 10/07/18 12:00 10/07/18 15:59 10/07/18 11:35 Micafungin Sodium 100 mg/Sodium Chloride 110 ml @ 110 mls/hr Q24H IVPB 09/29/18 18:00 10/12/18 17:59 10/06/18 18:23 Ondansetron HCl (Zofran) 4 mg Q6H PRN IVP Nausea & Vomiting 09/24/18 12:15 10/07/18 12:14 Pantoprazole (Protonix) 40 mg Q12HR IVP 09/24/18 21:00 10/08/18 08:59 10/07/18 08:17 Phytonadione (Vitamin K) 10 mg QWEEK SUBQ 09/30/18 09:00 10/30/18 08:59 10/07/18 08:37 Piperacillin Sod/ Tazobactam Sod 3.375 gm/Sodium Chloride 110 ml @ 27.5 mls/hr EVERY 8 HOURS IVPB 09/24/18 14:00 10/12/18 13:59 10/07/18 05:18 Polyethylene Glycol (Miralax) 17 gm DAILYPRN PRN ORAL Constipation 09/24/18 12:15 10/07/18 12:14 Potassium Phosphate 30 mm/ Sodium Chloride 285 ml @ 47.5 mls/hr ONCE ONCE IV 10/07/18 15:00 10/07/18 20:59 Risperidone (RisperDAL) 0.25 mg QHS ORAL 09/24/18 21:00 10/10/18 20:59 09/27/18 20:04 Sodium Chloride 500 ml @ 999 mls/hr Q31M PRN IV SBP<90mmHg 09/24/18 12:15 10/08/18 10:59 Kell Larkin M.D. Oct 07, 2018 12:07
--- NOTE | 2018-10-07 14:19 | Nephrology Progress Note ---
Assessment/Plan Problem List: (1) ATN (acute tubular necrosis) Assessment: Cr rising post op but lowering (2) Septic shock (3) Lactic acid acidosis (4) Metabolic acidosis (5) Hyperkalemia (6) G tube feedings (7) Acute respiratory failure Assessment post op 09/22/18: Trach, Splenectomy, Perf.... over all improved: cr rising again presented with Shock , likely septic Acute renal failure resolved Acute metabolic acidosis resolved Hyperkalemia PEG Recent Pneumonia Plan plan: K and Phos supplements as needed on tpn now trached 09/22 post laparatomy 09/22 off pressors pulmonary support Fluid challenge as needed Silva K and Phos and Mag supplement as needed antibiotics monitor renal parameters and ABG poor prognosis Subjective ROS Limited/Unobtainable: Yes Objective Objective Last 24 Hour Vital Signs Date Time Temp Pulse Resp B/P (MAP) Pulse Ox O2 Delivery O2 Flow Rate FiO2 10/07/18 13:10 100 17 30 10/07/18 12:00 Mechanical Ventilator Mechanical Ventilator 10/07/18 12:00 30 10/07/18 12:00 98.6 104 18 134/90 98 Mechanical Ventilator 30 10/07/18 11:29 99 16 30 10/07/18 11:27 104 10/07/18 09:00 101 17 30 10/07/18 08:00 Mechanical Ventilator Mechanical Ventilator 10/07/18 08:00 98.1 102 16 127/82 99 Mechanical Ventilator 30 10/07/18 08:00 30 10/07/18 07:37 97 10/07/18 06:57 96 16 30 10/07/18 05:14 108 21 30 10/07/18 04:00 Mechanical Ventilator Mechanical Ventilator 10/07/18 04:00 99.0 102 16 128/85 100 Mechanical Ventilator 30 10/07/18 04:00 30 10/07/18 03:41 101 14 30 10/07/18 03:25 96 10/07/18 00:49 102 20 30 10/07/18 00:00 30 10/07/18 00:00 Mechanical Ventilator Mechanical Ventilator 10/07/18 00:00 98.8 108 18 129/83 100 Mechanical Ventilator 30 10/06/18 23:57 103 10/06/18 22:38 105 21 30 10/06/18 21:12 99 16 30 10/06/18 20:00 99.7 100 19 125/82 99 Mechanical Ventilator 30 10/06/18 20:00 Mechanical Ventilator Mechanical Ventilator 10/06/18 20:00 30 10/06/18 19:59 105 10/06/18 19:00 103 20 30 10/06/18 17:10 110 20 30 10/06/18 16:00 97 10/06/18 16:00 30 10/06/18 16:00 Mechanical Ventilator Mechanical Ventilator 10/06/18 16:00 99.8 100 17 124/84 99 Mechanical Ventilator 30 10/06/18 15:08 102 19 30 Intake and Output 10/06/18 10/07/18 19:00 07:00 Intake Total 804 ml 1050.65 ml Output Total 948 ml 2135 ml Balance -144 ml -1084.35 ml IV Total 804 ml 1050.65 ml Output Urine Total 750 ml 2000 ml Stool Total 100 ml 25 ml Drainage Total 98 ml 110 ml Laboratory Tests 10/07/18 04:40: White Blood Count 14.7H, Red Blood Count 2.79L, Hemoglobin 8.3L, Hematocrit 24.9L, Mean Corpuscular Volume 89, Mean Corpuscular Hemoglobin 29.9, Mean Corpuscular Hemoglobin Concent 33.4, Red Cell Distribution Width 13.0, Platelet Count 731H, Mean Platelet Volume 6.5, Neutrophils (%) (Auto) 82.2H, Lymphocytes (%) (Auto) 6.8L, Monocytes (%) (Auto) 6.8, Eosinophils (%) (Auto) 3.2H, Basophils (%) (Auto) 1.0, Sodium Level 137, Potassium Level 3.3L, Chloride Level 105, Carbon Dioxide Level 25, Anion Gap 7, Blood Urea Nitrogen 10, Creatinine 0.9, Estimat Glomerular Filtration Rate > 60, Glucose Level 189H, Calcium Level 7.3L, Phosphorus Level 2.2L, Magnesium Level 1.6L, Total Bilirubin 0.4, Aspartate Amino Transf (AST/SGOT) 21, Alanine Aminotransferase ( ALT/SGPT) 16, Alkaline Phosphatase 84, Total Protein 5.8L, Albumin 1.1L, Globulin 4.7, Albumin/Globulin Ratio 0.2L Height (Feet): 5 Height (Inches): 5.00 Weight (Pounds): 153 General Appearance: no apparent distress Cardiovascular: tachycardia Respiratory/Chest: decreased breath sounds Abdomen: distended Objective no other changes Josesito Smalls MD Oct 07, 2018 14:19
[2018-10-07] MEDS ORDERED: Potassium Phosphate 30 MM in NS 275 ML IV ONE (15:00)
[2018-10-07] MEDS ORDERED: Tubing IV Blood Pump IV ONE (16:00)
[2018-10-07] MEDS ORDERED: Tubing IV Secondary IV ONE ×2 (16:00→18:18)
[2018-10-07] MEDS ORDERED: NS 275ml ONE ×2 (16:00→18:18)
--- NOTE | 2018-10-07 16:00 | Progress Note ---
DATE: 10/07/2018 SUBJECTIVE: This is a 62-year-old male with septic shock. He still remains in ICU step-down. He is very confused and disorganized. He has got no logical plan for own self-care. PLAN: My plan for this patient is to treat him with a medication regimen consisting of Risperdal 0.25 mg daily. Provided him with 20 minutes of reality-based supportive psychotherapy. Chart reviewed and discussed with staff. Seen and assessed at bedside. A 20 minutes of reality-based supportive psychotherapy provided. Virgie Mcdermott M.D. DR: LUCIAN JOB#: [id number] CC:
--- NOTE | 2018-10-07 16:24 | Cardiac Electrophysiology PN ---
Assessment/Plan Assessment/Plan 1. S/P Septic and hemorrhagic shock with Lactic acidosis. On Abx and S/P PRBC 2. Sinus tachycardia in 140s due to sepsis, anemia and dehydration. No fibrillation. EF 75%. Tachy again up to 160s. Repeat ECG today showed sinus tach 150 Will repeat CBC as HB is 8 and may be dropping Also give 300cc NS 3. Troponin elevation due to renal failure. EF 75%. 4. VDRF. S/P Tracheostomy 09/22/18 5. Rhabdomyolysis with CPK in thousands contributing to renal failure. 6. Acute renal failure and severe hyperkalemia. FU by Dr. Smalls 7. Dysphagia, Hx of PEG placement but was dislodged. 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 Left one Bloody. Right one serous FU Dr Contreras. 8. GI bleed. S/P EGD by Dr. Horton. S/p PRBCs DW RN Subjective Subjective On the Vent via tracheostomy. On TPN and Lipid.Tachy up to 160s at times Objective Last 24 Hour Vital Signs Date Time Temp Pulse Resp B/P (MAP) Pulse Ox O2 Delivery O2 Flow Rate FiO2 10/07/18 15:29 108 26 30 10/07/18 13:10 100 17 30 10/07/18 12:00 Mechanical Ventilator Mechanical Ventilator 10/07/18 12:00 30 10/07/18 12:00 98.6 104 18 134/90 98 Mechanical Ventilator 30 10/07/18 11:29 99 16 30 10/07/18 11:27 104 10/07/18 09:00 101 17 30 10/07/18 08:00 Mechanical Ventilator Mechanical Ventilator 10/07/18 08:00 98.1 102 16 127/82 99 Mechanical Ventilator 30 10/07/18 08:00 30 10/07/18 07:37 97 10/07/18 06:57 96 16 30 10/07/18 05:14 108 21 30 10/07/18 04:00 Mechanical Ventilator Mechanical Ventilator 10/07/18 04:00 99.0 102 16 128/85 100 Mechanical Ventilator 30 10/07/18 04:00 30 10/07/18 03:41 101 14 30 10/07/18 03:25 96 10/07/18 00:49 102 20 30 10/07/18 00:00 30 10/07/18 00:00 Mechanical Ventilator Mechanical Ventilator 10/07/18 00:00 98.8 108 18 129/83 100 Mechanical Ventilator 30 10/06/18 23:57 103 10/06/18 22:38 105 21 30 10/06/18 21:12 99 16 30 10/06/18 20:00 99.7 100 19 125/82 99 Mechanical Ventilator 30 10/06/18 20:00 Mechanical Ventilator Mechanical Ventilator 10/06/18 20:00 30 10/06/18 19:59 105 10/06/18 19:00 103 20 30 10/06/18 17:10 110 20 30 Intake and Output 10/06/18 10/07/18 19:00 07:00 Intake Total 804 ml 1050.65 ml Output Total 948 ml 2135 ml Balance -144 ml -1084.35 ml IV Total 804 ml 1050.65 ml Output Urine Total 750 ml 2000 ml Stool Total 100 ml 25 ml Drainage Total 98 ml 110 ml Laboratory Tests Test 10/07/18 04:40 White Blood Count 14.7 K/UL (4.8-10.8) H Red Blood Count 2.79 M/UL (4.70-6.10) L Hemoglobin 8.3 G/DL (14.2-18.0) L Hematocrit 24.9 % (42.0-52.0) L Mean Corpuscular Volume 89 FL (80-99) Mean Corpuscular Hemoglobin 29.9 PG (27.0-31.0) Mean Corpuscular Hemoglobin Concent 33.4 G/DL (32.0-36.0) Red Cell Distribution Width 13.0 % (11.6-14.8) Platelet Count 731 K/UL (150-450) H Mean Platelet Volume 6.5 FL (6.5-10.1) Neutrophils (%) (Auto) 82.2 % (45.0-75.0) H Lymphocytes (%) (Auto) 6.8 % (20.0-45.0) L Monocytes (%) (Auto) 6.8 % (1.0-10.0) Eosinophils (%) (Auto) 3.2 % (0.0-3.0) H Basophils (%) (Auto) 1.0 % (0.0-2.0) Sodium Level 137 MMOL/L (136-145) Potassium Level 3.3 MMOL/L (3.5-5.1) L Chloride Level 105 MMOL/L (98-107) Carbon Dioxide Level 25 MMOL/L (21-32) Anion Gap 7 mmol/L (5-15) Blood Urea Nitrogen 10 mg/dL (7-18) Creatinine 0.9 MG/DL (0.55-1.30) Estimat Glomerular Filtration Rate > 60 mL/min (>60) Glucose Level 189 MG/DL (74-106) H Calcium Level 7.3 MG/DL (8.5-10.1) L Phosphorus Level 2.2 MG/DL (2.5-4.9) L Magnesium Level 1.6 MG/DL (1.8-2.4) L Total Bilirubin 0.4 MG/DL (0.2-1.0) Aspartate Amino Transf (AST/SGOT) 21 U/L (15-37) Alanine Aminotransferase (ALT/SGPT) 16 U/L (12-78) Alkaline Phosphatase 84 U/L (46-116) Total Protein 5.8 G/DL (6.4-8.2) L Albumin 1.1 G/DL (3.4-5.0) L Globulin 4.7 g/dL Albumin/Globulin Ratio 0.2 (1.0-2.7) L Objective HEENT: S/P tracheostomy. LUNGS: Coarse rhonchi. CARDIOVASCULAR: Regular S1 and S2. ABDOMEN: Incision slightly oozing and has 2 drains EXTREMITIES: No pitting edema. Jasbir Madsen MD Oct 07, 2018 16:24
[2018-10-07 17:32] LABS: HEMATOCRIT 21.6 % (42.0-52.0); HEMOGLOBIN 7.2 G/DL (14.2-18.0); MEAN CORPUSCULAR VOLUME 91 FL (80-99); PLATELET COUNT 594 K/UL (150-450); RED BLOOD COUNT 2.38 M/UL (4.70-6.10)
[2018-10-07 17:38] LABS: WHITE BLOOD COUNT 29.5 K/UL (4.8-10.8)
[2018-10-07] MEDS: Micafungin 100 MG in NS 110 ML IVPB SCH (18:05)
--- NOTE | 2018-10-07 18:27 | General Progress Note ---
Progress Note Progress Note Surgery: noted to have bloody output from left drain site. patient examined and left danilo drain looks as it has been pulled as it is partially out more than prior and definitely more than when placed in OR. no active bleeding. draining blood clots and blood tinged ascites fluid. labs noted transfuse h/h monitor drain AM labs Isreal Lynne Oct 07, 2018 18:27
[2018-10-07] MEDS ORDERED: Levophed 4mg/4mL Inj IV ONE (20:11)
[2018-10-07] MEDS ORDERED: Heparin 5000 units/ml inj SUBQ SCH (21:00)
[2018-10-07] MEDS ORDERED: Acetaminophen 650 MG SUPP RECTAL PRN (21:18)
[2018-10-07] MEDS ORDERED: Acetaminophen 650mg/20.3ml NG PRN (21:18)
[2018-10-07] MEDS ORDERED: Loperamide 2mg cap ORAL PRN (21:20)
[2018-10-07] MEDS ORDERED: FAT EMULSION 20% IV SCH (21:25)
[2018-10-07] MEDS ORDERED: TPN IV SCH (21:25)
[2018-10-07] MEDS ORDERED: Albuterol/Ipratropium 3ml neb HHN PRN (23:00)
[2018-10-07] MEDS: Norepinephrine Bitartrate 16 MG in D5W 500ml 484 ML IV SCH (23:27)
[2018-10-08] VITALS (71 sets, daily range): BP systolic 66–147; BP diastolic 38–84
[2018-10-08] MEDS: NovoLOG Insulin Flexpen SUBQ SCH ×2 (00:19→05:34)
[2018-10-08] MEDS ORDERED: TPN IV SCH (05:30)
[2018-10-08] MEDS ORDERED: FAT EMULSION 20% IV SCH (05:30)
[2018-10-08] MEDS: Piperacillin/Tazobactam 3.375 GM in NS 110 ML IVPB SCH ×2 (05:33→13:20)
[2018-10-08 06:01] LABS: HEMATOCRIT 23.1 % (42.0-52.0); HEMOGLOBIN 7.7 G/DL (14.2-18.0); MEAN CORPUSCULAR VOLUME 91 FL (80-99); PLATELET COUNT 260 K/UL (150-450); RED BLOOD COUNT 2.54 M/UL (4.70-6.10); RED CELL DISTRIBUTION WIDTH 13.7 % (11.6-14.8)
[2018-10-08 06:07] LABS: INR 2.2 (0.9-1.1)
[2018-10-08 06:18] LABS: WHITE BLOOD COUNT 48.6 K/UL (4.8-10.8)
[2018-10-08 08:09] LABS: ALBUMIN 0.9 G/DL (3.4-5.0); ALBUMIN/GLOBULIN RATIO 0.2 (1.0-2.7); ALKALINE PHOSPHATASE 93 U/L (46-116); ANION GAP 24 mmol/L (5-15); BILIRUBIN,TOTAL 1.2 MG/DL (0.2-1.0); BLOOD UREA NITROGEN 19 mg/dL (7-18); CHLORIDE 103 MMOL/L (98-107); PHOSPHORUS 7.9 MG/DL (2.5-4.9); SODIUM 136 MMOL/L (136-145)
[2018-10-08 08:13] LABS: POTASSIUM 6.1 MMOL/L (3.5-5.1)
[2018-10-08 08:15] LABS: CARBON DIOXIDE 9 MMOL/L (21-32)
[2018-10-08] MEDS ORDERED: Pantoprazole Inj IVP SCH (09:00)
[2018-10-08 09:02] LABS: ALANINE AMINOTRANSFERASE 1134 U/L (12-78); ASPARTATE AMINO TRANSFERASE 3627 U/L (15-37)
[2018-10-08 09:06] LABS: BILIRUBIN,DIRECT < 0.1 MG/DL (0.0-0.3)
[2018-10-08] MEDS: Pantoprazole Inj IVP SCH ×2 (09:32→21:06)
--- NOTE | 2018-10-08 09:42 | Pulmonolgy Critical Care Note ---
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 Discussed with: nurses, consultants, complex case managermanager cash - Objective Last 24 Hour Vital Signs Date Time Temp Pulse Resp B/P (MAP) Pulse Ox O2 Delivery O2 Flow Rate FiO2 10/08/18 09:07 148 33 40 10/08/18 08:30 148 31 95/74 Mechanical Ventilator 40 10/08/18 08:06 100.5 150 35 95/74 100 Mechanical Ventilator 40 10/08/18 08:00 40 10/08/18 07:00 92/55 10/08/18 07:00 142 36 92/55 Mechanical Ventilator 50 10/08/18 06:46 141 34 40 10/08/18 06:45 141 30 88/59 Mechanical Ventilator 50 10/08/18 06:30 140 27 101/65 Mechanical Ventilator 50 10/08/18 06:15 141 36 104/59 Mechanical Ventilator 50 10/08/18 06:00 87/55 10/08/18 06:00 140 37 93/59 100 Mechanical Ventilator 60 10/08/18 05:45 139 37 94/57 100 Mechanical Ventilator 60 10/08/18 05:30 139 42 83/55 100 Mechanical Ventilator 60 10/08/18 05:15 139 41 92/62 100 Mechanical Ventilator 60 10/08/18 05:00 106/66 10/08/18 05:00 139 41 106/66 100 Mechanical Ventilator 60 10/08/18 04:47 134 40 50 10/08/18 04:45 133 39 78/53 100 Mechanical Ventilator 60 10/08/18 04:30 138 38 112/66 100 Mechanical Ventilator 60 10/08/18 04:15 142 37 113/57 100 Mechanical Ventilator 60 10/08/18 04:00 99.0 141 41 89/73 100 Mechanical Ventilator 60 10/08/18 04:00 141 10/08/18 04:00 Mechanical Ventilator Mechanical Ventilator Mechanical Ventilator Mechanical Ventilator 10/08/18 04:00 89/73 10/08/18 04:00 60 10/08/18 03:45 141 39 109/75 100 Mechanical Ventilator 60 10/08/18 03:30 140 26 119/69 100 Mechanical Ventilator 60 10/08/18 03:15 141 29 95/60 100 Mechanical Ventilator 60 10/08/18 03:00 141 24 89/58 100 Mechanical Ventilator 60 10/08/18 03:00 89/58 10/08/18 02:50 140 39 60 10/08/18 02:45 141 33 108/66 100 Mechanical Ventilator 60 10/08/18 02:30 142 34 93/65 100 Mechanical Ventilator 60 10/08/18 02:15 142 34 111/51 100 Mechanical Ventilator 60 10/08/18 02:00 143 42 112/63 100 Mechanical Ventilator 60 10/08/18 02:00 112/63 10/08/18 01:45 134 24 110/65 100 Mechanical Ventilator 60 10/08/18 01:30 138 20 117/54 100 Mechanical Ventilator 60 10/08/18 01:15 138 33 125/69 98 Mechanical Ventilator 60 10/08/18 01:00 139 38 108/55 98 Mechanical Ventilator 60 10/08/18 01:00 108/55 10/08/18 00:45 140 42 119/61 100 Mechanical Ventilator 100 10/08/18 00:44 138 43 100 10/08/18 00:30 139 41 120/57 100 Mechanical Ventilator 100 10/08/18 00:15 138 40 107/51 100 Mechanical Ventilator 100 10/08/18 00:02 100 10/08/18 00:01 135 10/08/18 00:00 98.8 138 38 114/63 100 Mechanical Ventilator 100 10/08/18 00:00 114/63 10/08/18 00:00 Mechanical Ventilator Mechanical Ventilator Mechanical Ventilator Mechanical Ventilator 10/07/18 23:45 139 42 92/40 100 Mechanical Ventilator 100 10/07/18 23:30 138 41 100/52 100 Mechanical Ventilator 100 10/07/18 23:27 90/49 10/07/18 23:15 134 37 90/49 100 Mechanical Ventilator 100 10/07/18 23:00 136 39 86/34 100 Mechanical Ventilator 100 10/07/18 22:54 138 39 100 10/07/18 22:45 141 39 94/32 100 Mechanical Ventilator 100 10/07/18 22:30 148 41 108/46 100 Mechanical Ventilator 100 10/07/18 22:15 152 39 96/56 100 Mechanical Ventilator 100 10/07/18 22:00 98/50 10/07/18 22:00 149 40 98/50 100 Mechanical Ventilator 100 10/07/18 21:45 144 37 97/45 99 Mechanical Ventilator 100 10/07/18 21:30 143 37 104/73 99 Mechanical Ventilator 100 10/07/18 21:15 143 36 103/55 85 Mechanical Ventilator 100 10/07/18 21:00 110/59 10/07/18 21:00 152 38 110/59 66 Mechanical Ventilator 100 10/07/18 20:45 160 40 100 10/07/18 20:45 160 38 98/55 Mechanical Ventilator 100 10/07/18 20:30 98.9 146 30 65/40 Mechanical Ventilator 100 10/07/18 20:15 114 17 46/22 Mechanical Ventilator 100 10/07/18 20:00 134 21 51/25 Mechanical Ventilator 100 10/07/18 20:00 42/24 10/07/18 20:00 Mechanical Ventilator Mechanical Ventilator Mechanical Ventilator Mechanical Ventilator 10/07/18 20:00 100 10/07/18 20:00 120 10/07/18 19:26 151 35 30 10/07/18 17:10 108 30 30 10/07/18 16:00 Mechanical Ventilator Mechanical Ventilator 10/07/18 16:00 30 10/07/18 16:00 99.7 130 24 123/91 96 Mechanical Ventilator 30 10/07/18 15:29 108 26 30 10/07/18 15:15 111 10/07/18 13:10 100 17 30 10/07/18 12:00 Mechanical Ventilator Mechanical Ventilator 10/07/18 12:00 30 10/07/18 12:00 98.6 104 18 134/90 98 Mechanical Ventilator 30 10/07/18 11:29 99 16 30 10/07/18 11:27 104 Status: obtunded Condition: critical, grave HEENT: atraumatic, normocephalic Neck: trach Lungs: clear Heart: HR/BP unstable Abdomen: soft Extremities: no C/C/E Decubiti: stage Accucheck: 250 Critical Care - Subjective ROS Limited/Unobtainable: No Interval Events: hemodynamically unstable, on levophed Condition: critical EKG Rhythm: Sinus Rhythm FI02: 40 Vent Support Breath Rate: 16 Vent Support Mode: AC Vent Tidal Volume: 500 Sputum Amount: Small PEEP: 0.0 PIP: 24 Tube Feeding Amount: 0 I&O: Intake and Output 10/07/18 10/08/18 19:00 07:00 Intake Total 1412.665 ml 3256.5 ml Output Total 1365 ml 860 ml Balance 47.665 ml 2396.5 ml IV Total 1412.665 ml 2656.5 ml Blood Product 600 ml Output Urine Total 1050 ml 180 ml Stool Total 10 ml 200 ml Drainage Total 305 ml 480 ml CXR: no change Labs: Laboratory Tests Test 10/07/18 17:10 10/07/18 20:24 10/08/18 05:10 10/08/18 07:18 White Blood Count 29.5 K/UL (4.8-10.8) #*H 48.6 K/UL (4.8-10.8) #*H Red Blood Count 2.38 M/UL (4.70-6.10) L 2.54 M/UL (4.70-6.10) L Hemoglobin 7.2 G/DL (14.2-18.0) L 7.7 G/DL (14.2-18.0) L Hematocrit 21.6 % (42.0-52.0) L 23.1 % (42.0-52.0) L Mean Corpuscular Volume 91 FL (80-99) 91 FL (80-99) Mean Corpuscular Hemoglobin 30.3 PG (27.0-31.0) 30.5 PG (27.0-31.0) Mean Corpuscular Hemoglobin Concent 33.2 G/DL (32.0-36.0) 33.5 G/DL (32.0-36.0) Red Cell Distribution Width 13.0 % (11.6-14.8) 13.7 % (11.6-14.8) Platelet Count 594 K/UL (150-450) H 260 K/UL (150-450) # Mean Platelet Volume 6.3 FL (6.5-10.1) L 7.0 FL (6.5-10.1) Neutrophils (%) (Auto) % (45.0-75.0) % (45.0-75.0) Lymphocytes (%) (Auto) % (20.0-45.0) % (20.0-45.0) Monocytes (%) (Auto) % (1.0-10.0) % (1.0-10.0) Eosinophils (%) (Auto) % (0.0-3.0) % (0.0-3.0) Basophils (%) (Auto) % (0.0-2.0) % (0.0-2.0) Differential Total Cells Counted 100 Neutrophils % (Manual) 86 % (45-75) H Pending Lymphocytes % (Manual) 5 % (20-45) L Pending Monocytes % (Manual) 5 % (1-10) Eosinophils % (Manual) 2 % (0-3) Basophils % (Manual) 0 % (0-2) Band Neutrophils 2 % (0-8) Platelet Estimate Increased H Pending Platelet Morphology Normal Pending Polychromasia 1+ Hypochromasia 1+ Anisocytosis 2+ Arterial Blood pH 7.264 (7.350-7.450) Arterial Blood Partial Pressure CO2 25.2 mmHg (35.0-45.0) L Arterial Blood Partial Pressure O2 539.1 mmHg (75.0-100.0) H Arterial Blood HCO3 11.2 mmol/L (22.0-26.0) *L Arterial Blood Oxygen Saturation 99.2 % (95-100) Arterial Blood Base Excess -14.6 (-2-2) *L Harvey Test N/a Prothrombin Time 22.6 SEC (9.30-11.50) H Prothromb Time International Ratio 2.2 (0.9-1.1) H Activated Partial Thromboplast Time 49 SEC (23-33) H Sodium Level 136 MMOL/L (136-145) Potassium Level 6.1 MMOL/L (3.5-5.1) #*H Chloride Level 103 MMOL/L (98-107) Carbon Dioxide Level 9 MMOL/L (21-32) *L Anion Gap 24 mmol/L (5-15) H Blood Urea Nitrogen 19 mg/dL (7-18) H Creatinine 2.0 MG/DL (0.55-1.30) #H Estimat Glomerular Filtration Rate 34.3 mL/min (>60) Glucose Level 243 MG/DL (74-106) H Calcium Level 7.0 MG/DL (8.5-10.1) L Phosphorus Level 7.9 MG/DL (2.5-4.9) H Magnesium Level 2.3 MG/DL (1.8-2.4) Total Bilirubin 1.2 MG/DL (0.2-1.0) H Direct Bilirubin < 0.1 MG/DL (0.0-0.3) Aspartate Amino Transf (AST/SGOT) 3627 U/L (15-37) H Alanine Aminotransferase (ALT/SGPT) 1134 U/L (12-78) H Alkaline Phosphatase 93 U/L (46-116) Total Protein 4.6 G/DL (6.4-8.2) L Albumin 0.9 G/DL (3.4-5.0) L Globulin 3.7 g/dL Albumin/Globulin Ratio 0.2 (1.0-2.7) L Test 10/08/18 09:10 Arterial Blood pH 7.409 (7.350-7.450) Arterial Blood Partial Pressure CO2 16.5 mmHg (35.0-45.0) *L Arterial Blood Partial Pressure O2 146.2 mmHg (75.0-100.0) H Arterial Blood HCO3 10.2 mmol/L (22.0-26.0) *L Arterial Blood Oxygen Saturation 97.8 % (95-100) Arterial Blood Base Excess -12.9 (-2-2) *L Harvey Test Positive Po Li MD Oct 08, 2018 09:42
[2018-10-08] MEDS: Norepinephrine Bitartrate 16 MG in D5W 500ml 484 ML IV SCH ×2 (10:44→20:16)
--- NOTE | 2018-10-08 11:14 | Diagnostic Imaging Report ---
Indication: Dyspnea Technique: One view of the chest Comparison: 10/06/2018 Findings: Tracheostomy, left arm PICC again demonstrated. Bilateral pleural effusions again noted, perhaps slightly improved bilaterally. Interstitial and airspace edema appears minimally improved. Impression: Slightly improved but persistent interstitial congestion, bilateral interstitial and airspace infiltrates versus edema, over 2 days
--- NOTE | 2018-10-08 12:20 | Nephrology Progress Note ---
Assessment/Plan Problem List: (1) ATN (acute tubular necrosis) Assessment: Cr rising post op but lowering (2) Septic shock (3) Lactic acid acidosis (4) Metabolic acidosis (5) Hyperkalemia (6) G tube feedings (7) Acute respiratory failure Assessment post op 09/22/18: Trach, Splenectomy, Perf.... 10/08- condition worsenned- shock- septic- 3 pressors presented with Shock , likely septic Acute renal failure resolved Acute metabolic acidosis resolved Hyperkalemia PEG Recent Pneumonia Plan plan: Poor prognosis hemodynamic support now trached 09/22 post laparatomy 09/22 on pressors again pulmonary support Fluid challenge as needed Silva K and Phos and Mag supplement as needed antibiotics monitor renal parameters and ABG poor prognosis Subjective ROS Limited/Unobtainable: Yes Objective Objective Last 24 Hour Vital Signs Date Time Temp Pulse Resp B/P (MAP) Pulse Ox O2 Delivery O2 Flow Rate FiO2 10/08/18 10:45 148 37 40 10/08/18 10:44 120/65 10/08/18 10:30 144 34 120/65 100 Mechanical Ventilator 40 10/08/18 10:00 110/64 10/08/18 10:00 141 33 110/64 100 Mechanical Ventilator 40 10/08/18 09:30 143 29 82/56 100 Mechanical Ventilator 40 10/08/18 09:07 148 33 40 10/08/18 09:00 147 34 91/61 100 Mechanical Ventilator 40 10/08/18 09:00 91/61 10/08/18 08:30 148 31 95/74 100 Mechanical Ventilator 40 10/08/18 08:06 100.5 150 35 95/74 100 Mechanical Ventilator 40 10/08/18 08:00 152 10/08/18 08:00 40 10/08/18 07:00 92/55 10/08/18 07:00 142 36 92/55 Mechanical Ventilator 50 10/08/18 06:46 141 34 40 10/08/18 06:45 141 30 88/59 Mechanical Ventilator 50 10/08/18 06:30 140 27 101/65 Mechanical Ventilator 50 10/08/18 06:15 141 36 104/59 Mechanical Ventilator 50 10/08/18 06:00 87/55 10/08/18 06:00 140 37 93/59 100 Mechanical Ventilator 60 10/08/18 05:45 139 37 94/57 100 Mechanical Ventilator 60 10/08/18 05:30 139 42 83/55 100 Mechanical Ventilator 60 10/08/18 05:15 139 41 92/62 100 Mechanical Ventilator 60 10/08/18 05:00 106/66 10/08/18 05:00 139 41 106/66 100 Mechanical Ventilator 60 10/08/18 04:47 134 40 50 10/08/18 04:45 133 39 78/53 100 Mechanical Ventilator 60 10/08/18 04:30 138 38 112/66 100 Mechanical Ventilator 60 10/08/18 04:15 142 37 113/57 100 Mechanical Ventilator 60 10/08/18 04:00 99.0 141 41 89/73 100 Mechanical Ventilator 60 10/08/18 04:00 141 10/08/18 04:00 Mechanical Ventilator Mechanical Ventilator Mechanical Ventilator Mechanical Ventilator 10/08/18 04:00 89/73 10/08/18 04:00 60 10/08/18 03:45 141 39 109/75 100 Mechanical Ventilator 60 10/08/18 03:30 140 26 119/69 100 Mechanical Ventilator 60 10/08/18 03:15 141 29 95/60 100 Mechanical Ventilator 60 10/08/18 03:00 141 24 89/58 100 Mechanical Ventilator 60 10/08/18 03:00 89/58 10/08/18 02:50 140 39 60 10/08/18 02:45 141 33 108/66 100 Mechanical Ventilator 60 10/08/18 02:30 142 34 93/65 100 Mechanical Ventilator 60 10/08/18 02:15 142 34 111/51 100 Mechanical Ventilator 60 10/08/18 02:00 143 42 112/63 100 Mechanical Ventilator 60 10/08/18 02:00 112/63 10/08/18 01:45 134 24 110/65 100 Mechanical Ventilator 60 10/08/18 01:30 138 20 117/54 100 Mechanical Ventilator 60 10/08/18 01:15 138 33 125/69 98 Mechanical Ventilator 60 10/08/18 01:00 139 38 108/55 98 Mechanical Ventilator 60 10/08/18 01:00 108/55 10/08/18 00:45 140 42 119/61 100 Mechanical Ventilator 100 10/08/18 00:44 138 43 100 10/08/18 00:30 139 41 120/57 100 Mechanical Ventilator 100 10/08/18 00:15 138 40 107/51 100 Mechanical Ventilator 100 10/08/18 00:02 100 10/08/18 00:01 135 10/08/18 00:00 98.8 138 38 114/63 100 Mechanical Ventilator 100 10/08/18 00:00 114/63 10/08/18 00:00 Mechanical Ventilator Mechanical Ventilator Mechanical Ventilator Mechanical Ventilator 10/07/18 23:45 139 42 92/40 100 Mechanical Ventilator 100 10/07/18 23:30 138 41 100/52 100 Mechanical Ventilator 100 10/07/18 23:27 90/49 10/07/18 23:15 134 37 90/49 100 Mechanical Ventilator 100 10/07/18 23:00 136 39 86/34 100 Mechanical Ventilator 100 10/07/18 22:54 138 39 100 10/07/18 22:45 141 39 94/32 100 Mechanical Ventilator 100 10/07/18 22:30 148 41 108/46 100 Mechanical Ventilator 100 10/07/18 22:15 152 39 96/56 100 Mechanical Ventilator 100 10/07/18 22:00 98/50 10/07/18 22:00 149 40 98/50 100 Mechanical Ventilator 100 10/07/18 21:45 144 37 97/45 99 Mechanical Ventilator 100 10/07/18 21:30 143 37 104/73 99 Mechanical Ventilator 100 10/07/18 21:15 143 36 103/55 85 Mechanical Ventilator 100 10/07/18 21:00 110/59 10/07/18 21:00 152 38 110/59 66 Mechanical Ventilator 100 10/07/18 20:45 160 40 100 10/07/18 20:45 160 38 98/55 Mechanical Ventilator 100 10/07/18 20:30 98.9 146 30 65/40 Mechanical Ventilator 100 10/07/18 20:15 114 17 46/22 Mechanical Ventilator 100 10/07/18 20:00 134 21 51/25 Mechanical Ventilator 100 10/07/18 20:00 42/24 10/07/18 20:00 Mechanical Ventilator Mechanical Ventilator Mechanical Ventilator Mechanical Ventilator 10/07/18 20:00 100 10/07/18 20:00 120 10/07/18 19:26 151 35 30 10/07/18 17:10 108 30 30 10/07/18 16:00 Mechanical Ventilator Mechanical Ventilator 10/07/18 16:00 30 10/07/18 16:00 99.7 130 24 123/91 96 Mechanical Ventilator 30 10/07/18 15:29 108 26 30 10/07/18 15:15 111 10/07/18 13:10 100 17 30 Intake and Output 10/07/18 10/08/18 19:00 07:00 Intake Total 1412.665 ml 3256.5 ml Output Total 1365 ml 860 ml Balance 47.665 ml 2396.5 ml IV Total 1412.665 ml 2656.5 ml Blood Product 600 ml Output Urine Total 1050 ml 180 ml Stool Total 10 ml 200 ml Drainage Total 305 ml 480 ml Laboratory Tests 10/07/18 17:10: White Blood Count 29.5#*H, Red Blood Count 2.38L, Hemoglobin 7.2L, Hematocrit 21.6L, Mean Corpuscular Volume 91, Mean Corpuscular Hemoglobin 30.3, Mean Corpuscular Hemoglobin Concent 33.2, Red Cell Distribution Width 13.0, Platelet Count 594H, Mean Platelet Volume 6.3L, Neutrophils (%) (Auto) , Lymphocytes (%) (Auto) , Monocytes (%) (Auto) , Eosinophils (%) (Auto) , Basophils (%) (Auto) , Differential Total Cells Counted 100, Neutrophils % (Manual) 86H, Lymphocytes % (Manual) 5L, Monocytes % (Manual) 5, Eosinophils % (Manual) 2, Basophils % ( Manual) 0, Band Neutrophils 2, Platelet Estimate IncreasedH, Platelet Morphology Normal, Polychromasia 1+, Hypochromasia 1+, Anisocytosis 2+ 10/07/18 20:24: Arterial Blood pH 7.264L, Arterial Blood Partial Pressure CO2 25.2L, Arterial Blood Partial Pressure O2 539.1H, Arterial Blood HCO3 11.2*L, Arterial Blood Oxygen Saturation 99.2, Arterial Blood Base Excess -14.6*L, Harvey Test N/a 10/08/18 05:10: White Blood Count 48.6#*H, Red Blood Count 2.54L, Hemoglobin 7.7L, Hematocrit 23.1L, Mean Corpuscular Volume 91, Mean Corpuscular Hemoglobin 30.5, Mean Corpuscular Hemoglobin Concent 33.5, Red Cell Distribution Width 13.7, Platelet Count 260#, Mean Platelet Volume 7.0, Neutrophils (%) (Auto) , Lymphocytes (%) ( Auto) , Monocytes (%) (Auto) , Eosinophils (%) (Auto) , Basophils (%) (Auto) , Differential Total Cells Counted 100, Neutrophils % (Manual) 84H, Lymphocytes % (Manual) 4L, Monocytes % (Manual) 2, Eosinophils % (Manual) 0, Basophils % ( Manual) 0, Band Neutrophils 6, Platelet Estimate Adequate, Platelet Morphology Normal, Polychromasia 1+, Hypochromasia 1+, Anisocytosis 1+, Metamyelocytes % 1H , Myelocytes % 3H, Prothrombin Time 22.6H, Prothromb Time International Ratio 2.2H, Activated Partial Thromboplast Time 49H 10/08/18 07:18: Sodium Level 136, Potassium Level 6.1#*H, Chloride Level 103, Carbon Dioxide Level 9*L, Anion Gap 24H, Blood Urea Nitrogen 19H, Creatinine 2.0#H, Estimat Glomerular Filtration Rate 34.3, Glucose Level 243H, Calcium Level 7.0L, Phosphorus Level 7.9H, Magnesium Level 2.3, Total Bilirubin 1.2H, Direct Bilirubin < 0.1, Aspartate Amino Transf (AST/SGOT) 3627H, Alanine Aminotransferase (ALT/SGPT) 1134H, Alkaline Phosphatase 93, Total Protein 4.6L, Albumin 0.9L, Globulin 3.7, Albumin/Globulin Ratio 0.2L 10/08/18 09:10: Arterial Blood pH 7.409, Arterial Blood Partial Pressure CO2 16.5*L, Arterial Blood Partial Pressure O2 146.2H, Arterial Blood HCO3 10.2*L, Arterial Blood Oxygen Saturation 97.8, Arterial Blood Base Excess -12.9*L, Harvey Test Positive Height (Feet): 5 Height (Inches): 5.00 Weight (Pounds): 157 General Appearance: lethargic Cardiovascular: tachycardia Respiratory/Chest: decreased breath sounds Abdomen: distended Objective no other changes Josesito Smalls MD Oct 08, 2018 12:20
[2018-10-08] MEDS: Sodium Bicarbonate 100 ML in D5 1/2NS 1,000 ML IV SCH (13:11)
--- NOTE | 2018-10-08 13:38 | GI Progress Note ---
Assessment/Plan Problems: (1) G tube feedings ICD Codes: Z93.1 - Gastrostomy status SNOMED: 110896869, 788151827 (2) Protein-calorie malnutrition, severe ICD Codes: E43 - Unspecified severe protein-calorie malnutrition SNOMED: 997851495 (3) Anemia ICD Codes: D64.9 - Anemia, unspecified SNOMED: 277099785 (4) GI bleed ICD Codes: K92.2 - Gastrointestinal hemorrhage, unspecified SNOMED: 47954430 Status: not improved, unchanged Status Narrative Discussed with Dr. Horton. Assessment/Plan s/p repair of gastric perforation septic, now in ICU RECOMMENDATIONS: fu surgical recommendations hold TPN prn transfusion ppi abx fu labs The patient was seen and examined at bedside and all new and available data was reviewed in the patients chart. I agree with the above findings, impression and plan. (Patient seen earlier today. Signature stamp does not reflect patient encounter time.). - Arthur Horton MD Subjective Subjective limited Objective Last 24 Hour Vital Signs Date Time Temp Pulse Resp B/P (MAP) Pulse Ox O2 Delivery O2 Flow Rate FiO2 10/08/18 12:32 140 31 40 10/08/18 10:45 148 37 40 10/08/18 10:44 120/65 10/08/18 10:30 144 34 120/65 100 Mechanical Ventilator 40 10/08/18 10:00 110/64 10/08/18 10:00 141 33 110/64 100 Mechanical Ventilator 40 10/08/18 09:30 143 29 82/56 100 Mechanical Ventilator 40 10/08/18 09:07 148 33 40 10/08/18 09:00 147 34 91/61 100 Mechanical Ventilator 40 10/08/18 09:00 91/61 10/08/18 08:30 148 31 95/74 100 Mechanical Ventilator 40 10/08/18 08:06 100.5 150 35 95/74 100 Mechanical Ventilator 40 10/08/18 08:00 152 10/08/18 08:00 40 10/08/18 07:00 92/55 10/08/18 07:00 142 36 92/55 Mechanical Ventilator 50 10/08/18 06:46 141 34 40 10/08/18 06:45 141 30 88/59 Mechanical Ventilator 50 10/08/18 06:30 140 27 101/65 Mechanical Ventilator 50 10/08/18 06:15 141 36 104/59 Mechanical Ventilator 50 10/08/18 06:00 87/55 10/08/18 06:00 140 37 93/59 100 Mechanical Ventilator 60 10/08/18 05:45 139 37 94/57 100 Mechanical Ventilator 60 10/08/18 05:30 139 42 83/55 100 Mechanical Ventilator 60 10/08/18 05:15 139 41 92/62 100 Mechanical Ventilator 60 10/08/18 05:00 106/66 10/08/18 05:00 139 41 106/66 100 Mechanical Ventilator 60 10/08/18 04:47 134 40 50 10/08/18 04:45 133 39 78/53 100 Mechanical Ventilator 60 10/08/18 04:30 138 38 112/66 100 Mechanical Ventilator 60 10/08/18 04:15 142 37 113/57 100 Mechanical Ventilator 60 10/08/18 04:00 99.0 141 41 89/73 100 Mechanical Ventilator 60 10/08/18 04:00 141 10/08/18 04:00 Mechanical Ventilator Mechanical Ventilator Mechanical Ventilator Mechanical Ventilator 10/08/18 04:00 89/73 10/08/18 04:00 60 10/08/18 03:45 141 39 109/75 100 Mechanical Ventilator 60 10/08/18 03:30 140 26 119/69 100 Mechanical Ventilator 60 10/08/18 03:15 141 29 95/60 100 Mechanical Ventilator 60 10/08/18 03:00 141 24 89/58 100 Mechanical Ventilator 60 10/08/18 03:00 89/58 10/08/18 02:50 140 39 60 10/08/18 02:45 141 33 108/66 100 Mechanical Ventilator 60 10/08/18 02:30 142 34 93/65 100 Mechanical Ventilator 60 10/08/18 02:15 142 34 111/51 100 Mechanical Ventilator 60 10/08/18 02:00 143 42 112/63 100 Mechanical Ventilator 60 10/08/18 02:00 112/63 10/08/18 01:45 134 24 110/65 100 Mechanical Ventilator 60 10/08/18 01:30 138 20 117/54 100 Mechanical Ventilator 60 10/08/18 01:15 138 33 125/69 98 Mechanical Ventilator 60 10/08/18 01:00 139 38 108/55 98 Mechanical Ventilator 60 10/08/18 01:00 108/55 10/08/18 00:45 140 42 119/61 100 Mechanical Ventilator 100 10/08/18 00:44 138 43 100 10/08/18 00:30 139 41 120/57 100 Mechanical Ventilator 100 10/08/18 00:15 138 40 107/51 100 Mechanical Ventilator 100 10/08/18 00:02 100 10/08/18 00:01 135 10/08/18 00:00 98.8 138 38 114/63 100 Mechanical Ventilator 100 10/08/18 00:00 114/63 10/08/18 00:00 Mechanical Ventilator Mechanical Ventilator Mechanical Ventilator Mechanical Ventilator 10/07/18 23:45 139 42 92/40 100 Mechanical Ventilator 100 10/07/18 23:30 138 41 100/52 100 Mechanical Ventilator 100 10/07/18 23:27 90/49 10/07/18 23:15 134 37 90/49 100 Mechanical Ventilator 100 10/07/18 23:00 136 39 86/34 100 Mechanical Ventilator 100 10/07/18 22:54 138 39 100 10/07/18 22:45 141 39 94/32 100 Mechanical Ventilator 100 10/07/18 22:30 148 41 108/46 100 Mechanical Ventilator 100 10/07/18 22:15 152 39 96/56 100 Mechanical Ventilator 100 10/07/18 22:00 98/50 10/07/18 22:00 149 40 98/50 100 Mechanical Ventilator 100 10/07/18 21:45 144 37 97/45 99 Mechanical Ventilator 100 10/07/18 21:30 143 37 104/73 99 Mechanical Ventilator 100 10/07/18 21:15 143 36 103/55 85 Mechanical Ventilator 100 10/07/18 21:00 110/59 10/07/18 21:00 152 38 110/59 66 Mechanical Ventilator 100 10/07/18 20:45 160 40 100 10/07/18 20:45 160 38 98/55 Mechanical Ventilator 100 10/07/18 20:30 98.9 146 30 65/40 Mechanical Ventilator 100 10/07/18 20:15 114 17 46/22 Mechanical Ventilator 100 10/07/18 20:00 134 21 51/25 Mechanical Ventilator 100 10/07/18 20:00 42/24 10/07/18 20:00 Mechanical Ventilator Mechanical Ventilator Mechanical Ventilator Mechanical Ventilator 10/07/18 20:00 100 10/07/18 20:00 120 10/07/18 19:26 151 35 30 10/07/18 17:10 108 30 30 10/07/18 16:00 Mechanical Ventilator Mechanical Ventilator 10/07/18 16:00 30 10/07/18 16:00 99.7 130 24 123/91 96 Mechanical Ventilator 30 10/07/18 15:29 108 26 30 10/07/18 15:15 111 Intake and Output 10/07/18 10/08/18 19:00 07:00 Intake Total 1412.665 ml 3256.5 ml Output Total 1365 ml 860 ml Balance 47.665 ml 2396.5 ml IV Total 1412.665 ml 2656.5 ml Blood Product 600 ml Output Urine Total 1050 ml 180 ml Stool Total 10 ml 200 ml Drainage Total 305 ml 480 ml Laboratory Tests Test 10/07/18 17:10 10/07/18 20:24 10/08/18 05:10 10/08/18 07:18 White Blood Count 29.5 K/UL (4.8-10.8) #*H 48.6 K/UL (4.8-10.8) #*H Red Blood Count 2.38 M/UL (4.70-6.10) L 2.54 M/UL (4.70-6.10) L Hemoglobin 7.2 G/DL (14.2-18.0) L 7.7 G/DL (14.2-18.0) L Hematocrit 21.6 % (42.0-52.0) L 23.1 % (42.0-52.0) L Mean Corpuscular Volume 91 FL (80-99) 91 FL (80-99) Mean Corpuscular Hemoglobin 30.3 PG (27.0-31.0) 30.5 PG (27.0-31.0) Mean Corpuscular Hemoglobin Concent 33.2 G/DL (32.0-36.0) 33.5 G/DL (32.0-36.0) Red Cell Distribution Width 13.0 % (11.6-14.8) 13.7 % (11.6-14.8) Platelet Count 594 K/UL (150-450) H 260 K/UL (150-450) # Mean Platelet Volume 6.3 FL (6.5-10.1) L 7.0 FL (6.5-10.1) Neutrophils (%) (Auto) % (45.0-75.0) % (45.0-75.0) Lymphocytes (%) (Auto) % (20.0-45.0) % (20.0-45.0) Monocytes (%) (Auto) % (1.0-10.0) % (1.0-10.0) Eosinophils (%) (Auto) % (0.0-3.0) % (0.0-3.0) Basophils (%) (Auto) % (0.0-2.0) % (0.0-2.0) Differential Total Cells Counted 100 100 Neutrophils % (Manual) 86 % (45-75) H 84 % (45-75) H Lymphocytes % (Manual) 5 % (20-45) L 4 % (20-45) L Monocytes % (Manual) 5 % (1-10) 2 % (1-10) Eosinophils % (Manual) 2 % (0-3) 0 % (0-3) Basophils % (Manual) 0 % (0-2) 0 % (0-2) Band Neutrophils 2 % (0-8) 6 % (0-8) Platelet Estimate Increased H Adequate Platelet Morphology Normal Normal Polychromasia 1+ 1+ Hypochromasia 1+ 1+ Anisocytosis 2+ 1+ Arterial Blood pH 7.264 (7.350-7.450) Arterial Blood Partial Pressure CO2 25.2 mmHg (35.0-45.0) L Arterial Blood Partial Pressure O2 539.1 mmHg (75.0-100.0) H Arterial Blood HCO3 11.2 mmol/L (22.0-26.0) *L Arterial Blood Oxygen Saturation 99.2 % (95-100) Arterial Blood Base Excess -14.6 (-2-2) *L Harvey Test N/a Metamyelocytes % 1 % (0-0) H Myelocytes % 3 % (0-0) H Prothrombin Time 22.6 SEC (9.30-11.50) H Prothromb Time International Ratio 2.2 (0.9-1.1) H Activated Partial Thromboplast Time 49 SEC (23-33) H Sodium Level 136 MMOL/L (136-145) Potassium Level 6.1 MMOL/L (3.5-5.1) #*H Chloride Level 103 MMOL/L (98-107) Carbon Dioxide Level 9 MMOL/L (21-32) *L Anion Gap 24 mmol/L (5-15) H Blood Urea Nitrogen 19 mg/dL (7-18) H Creatinine 2.0 MG/DL (0.55-1.30) #H Estimat Glomerular Filtration Rate 34.3 mL/min (>60) Glucose Level 243 MG/DL (74-106) H Calcium Level 7.0 MG/DL (8.5-10.1) L Phosphorus Level 7.9 MG/DL (2.5-4.9) H Magnesium Level 2.3 MG/DL (1.8-2.4) Total Bilirubin 1.2 MG/DL (0.2-1.0) H Direct Bilirubin < 0.1 MG/DL (0.0-0.3) Aspartate Amino Transf (AST/SGOT) 3627 U/L (15-37) H Alanine Aminotransferase (ALT/SGPT) 1134 U/L (12-78) H Alkaline Phosphatase 93 U/L (46-116) Total Protein 4.6 G/DL (6.4-8.2) L Albumin 0.9 G/DL (3.4-5.0) L Globulin 3.7 g/dL Albumin/Globulin Ratio 0.2 (1.0-2.7) L Test 10/08/18 08:10 10/08/18 09:10 C-Reactive Protein, Quantitative 5.8 mg/dL (0.00-0.90) H Arterial Blood pH 7.409 (7.350-7.450) Arterial Blood Partial Pressure CO2 16.5 mmHg (35.0-45.0) *L Arterial Blood Partial Pressure O2 146.2 mmHg (75.0-100.0) H Arterial Blood HCO3 10.2 mmol/L (22.0-26.0) *L Arterial Blood Oxygen Saturation 97.8 % (95-100) Arterial Blood Base Excess -12.9 (-2-2) *L Harvey Test Positive Height (Feet): 5 Height (Inches): 5.00 Weight (Pounds): 157 General Appearance: alert Cardiovascular: normal rate Respiratory/Chest: other - trach Becki Holt NP Oct 08, 2018 13:38
--- NOTE | 2018-10-08 14:26 | Infectious Diseases Prog Note ---
Assessment/Plan Assessment/Plan 62 yo male with PMHx of Quadriplegia with G-tube, HTN, DM and Schizophenia who was sent to the ED fromhis half-way for AMS. Shock- combination of septic and hypovolemnic (+GIB) -10/08 CXR: Slightly improved but persistent interstitial congestion, bilateral interstitial and airspace infiltrates versus edema, over 2 days Displaced GT with perforation c/w peritonitis and hematoma/abscess formation -10/02 CT abd/p: Interval exploratory laparotomy, status post splenectomy, status post removal of gastrostomy tube with 2 abdominal drains noted. Abnormal appearance of the stomach with marked wall thickening and pneumatosis. Abnormal appearance of small bowel and large bowel showing wall thickening and enhancement may be related to enteritis and/or colitis. Trace ascites -09/22 SP Exploratory laparotomy. Repair of gastric perforation. Evacuation of abdominal omental / lesser sac hematoma. Evacuation of perisplenic hematoma/ abscess. Omentectomy. Splenectomy. Abdominal washout. Tracheostomy. -09/21 CT abd/p: The gastrostomy tube appears to be partially intraluminal and partially communicate with a large intramural collection involving mostly the inferior posterior wall of the stomach. There is some anterior wall pneumatosis. Contrast within the collection most likely represents instilled enteric contrast, but could also represent extravasated vascular contrast. There is evidence of rupture of this collection into the peritoneal space, with extravasated contrast in the left upper quadrant. There is anterior gastric wall intramural pneumatosis as well as a small amount of free extraluminal gas. Moderate ascites. Enhancement of much of the peritoneum raises concern for peritonitis. There may also be loculated intraperitoneal collections which could represent abscesses, predominantly adjacent to the tip of the right hepatic lobe, subcapsular in the spleen, and within the left upper quadrant. Thick-walled sigmoid colon, transverse colon and equivocally the proximal jejunum. Likely reactive related to the above, but could also indicate enteritis /colitis changes Leukocytosis, increasing -09/29 L ELISABET drain (+purulebnt fluid) cx : C. tropicalis -09/28 u/a neg, ucx NTD Bcx NTD CXR: Over one day, interim development of bilateral supraclavicular subcutaneous emphysema and pneumomediastinum, etiology not demonstrated. Persistent low lung volumes with basilar atelectatic changes and left-sided pleural effusion -09/20 ucx NTD; u/a neg -09/19 CXR: Bilateral pleural effusions and bibasilar atelectasis/airspace disease are stable. Low grade fever; SP Diarrhea- -09/27 Cdiff neg GIB Sepsis - Probably PNA , s/p Rx 09/22 CXR: Bilateral pleural effusions, basilar atelectatic changes, and interstitial congestive changes are stable CXR 09/07/18 - possible left sided consolidation Inf neg 09/07/18 BCx / sets diphteroids, 08/12 setse S. epi (contaminants); 09/11 Bcx NTD 09/07/18 SCx - NF 09/07/18 UCx - Neg 09/09 Cdiff neg HTN DM Schizophenia Quadriplegia. G- tube dependent Plan -Switch Zosyn #17 to Meropenem and add IV Daptomycin given decompensation -Continue IV Micafungin #16 -Repeat cultures, cdiff -f/u cx -09/28 SP Flagyl #3 - 09/19/18 SP Zosyn #10 - 09/17/18 SP Vancmocyin #10 - 09/09/18 Ertapenem #3 - Monitor CBC and temps -Sx f/u -wound care -critically ill, on ICU and high dose pressors We will continue to follow the patient during this hospitalization. Discussed with RN. 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; he also had bleeding from one of the ELISABET drains pt is now on 30 levophed Objective Vital Signs Last 24 Hour Vital Signs Date Time Temp Pulse Resp B/P (MAP) Pulse Ox O2 Delivery O2 Flow Rate FiO2 10/08/18 14:00 78/44 10/08/18 14:00 124 27 78/44 100 Mechanical Ventilator 40 10/08/18 13:30 131 34 76/56 100 Mechanical Ventilator 40 10/08/18 13:00 139 30 77/43 100 Mechanical Ventilator 40 10/08/18 13:00 77/43 10/08/18 12:32 140 31 40 10/08/18 12:30 141 22 78/50 100 Mechanical Ventilator 40 10/08/18 12:00 Mechanical Ventilator Mechanical Ventilator 10/08/18 12:00 99.5 148 34 97/65 100 Mechanical Ventilator 40 10/08/18 12:00 40 10/08/18 12:00 97/65 10/08/18 11:30 149 24 98/60 100 Mechanical Ventilator 40 10/08/18 11:00 92/64 10/08/18 11:00 141 31 92/64 100 Mechanical Ventilator 40 10/08/18 10:45 148 37 40 10/08/18 10:44 120/65 10/08/18 10:30 144 34 120/65 100 Mechanical Ventilator 40 10/08/18 10:00 110/64 10/08/18 10:00 141 33 110/64 100 Mechanical Ventilator 40 10/08/18 09:30 143 29 82/56 100 Mechanical Ventilator 40 10/08/18 09:07 148 33 40 10/08/18 09:00 147 34 91/61 100 Mechanical Ventilator 40 10/08/18 09:00 91/61 10/08/18 08:30 148 31 95/74 100 Mechanical Ventilator 40 10/08/18 08:06 100.5 150 35 95/74 100 Mechanical Ventilator 40 10/08/18 08:00 152 10/08/18 08:00 40 10/08/18 07:00 92/55 10/08/18 07:00 142 36 92/55 Mechanical Ventilator 50 10/08/18 06:46 141 34 40 10/08/18 06:45 141 30 88/59 Mechanical Ventilator 50 10/08/18 06:30 140 27 101/65 Mechanical Ventilator 50 10/08/18 06:15 141 36 104/59 Mechanical Ventilator 50 10/08/18 06:00 87/55 10/08/18 06:00 140 37 93/59 100 Mechanical Ventilator 60 10/08/18 05:45 139 37 94/57 100 Mechanical Ventilator 60 10/08/18 05:30 139 42 83/55 100 Mechanical Ventilator 60 10/08/18 05:15 139 41 92/62 100 Mechanical Ventilator 60 10/08/18 05:00 106/66 10/08/18 05:00 139 41 106/66 100 Mechanical Ventilator 60 10/08/18 04:47 134 40 50 10/08/18 04:45 133 39 78/53 100 Mechanical Ventilator 60 10/08/18 04:30 138 38 112/66 100 Mechanical Ventilator 60 10/08/18 04:15 142 37 113/57 100 Mechanical Ventilator 60 10/08/18 04:00 99.0 141 41 89/73 100 Mechanical Ventilator 60 10/08/18 04:00 141 10/08/18 04:00 Mechanical Ventilator Mechanical Ventilator Mechanical Ventilator Mechanical Ventilator 10/08/18 04:00 89/73 10/08/18 04:00 60 10/08/18 03:45 141 39 109/75 100 Mechanical Ventilator 60 10/08/18 03:30 140 26 119/69 100 Mechanical Ventilator 60 10/08/18 03:15 141 29 95/60 100 Mechanical Ventilator 60 10/08/18 03:00 141 24 89/58 100 Mechanical Ventilator 60 10/08/18 03:00 89/58 10/08/18 02:50 140 39 60 10/08/18 02:45 141 33 108/66 100 Mechanical Ventilator 60 10/08/18 02:30 142 34 93/65 100 Mechanical Ventilator 60 10/08/18 02:15 142 34 111/51 100 Mechanical Ventilator 60 10/08/18 02:00 143 42 112/63 100 Mechanical Ventilator 60 10/08/18 02:00 112/63 10/08/18 01:45 134 24 110/65 100 Mechanical Ventilator 60 10/08/18 01:30 138 20 117/54 100 Mechanical Ventilator 60 10/08/18 01:15 138 33 125/69 98 Mechanical Ventilator 60 10/08/18 01:00 139 38 108/55 98 Mechanical Ventilator 60 10/08/18 01:00 108/55 10/08/18 00:45 140 42 119/61 100 Mechanical Ventilator 100 10/08/18 00:44 138 43 100 10/08/18 00:30 139 41 120/57 100 Mechanical Ventilator 100 10/08/18 00:15 138 40 107/51 100 Mechanical Ventilator 100 10/08/18 00:02 100 10/08/18 00:01 135 10/08/18 00:00 98.8 138 38 114/63 100 Mechanical Ventilator 100 10/08/18 00:00 114/63 10/08/18 00:00 Mechanical Ventilator Mechanical Ventilator Mechanical Ventilator Mechanical Ventilator 10/07/18 23:45 139 42 92/40 100 Mechanical Ventilator 100 10/07/18 23:30 138 41 100/52 100 Mechanical Ventilator 100 10/07/18 23:27 90/49 10/07/18 23:15 134 37 90/49 100 Mechanical Ventilator 100 10/07/18 23:00 136 39 86/34 100 Mechanical Ventilator 100 10/07/18 22:54 138 39 100 10/07/18 22:45 141 39 94/32 100 Mechanical Ventilator 100 10/07/18 22:30 148 41 108/46 100 Mechanical Ventilator 100 10/07/18 22:15 152 39 96/56 100 Mechanical Ventilator 100 10/07/18 22:00 98/50 10/07/18 22:00 149 40 98/50 100 Mechanical Ventilator 100 10/07/18 21:45 144 37 97/45 99 Mechanical Ventilator 100 10/07/18 21:30 143 37 104/73 99 Mechanical Ventilator 100 10/07/18 21:15 143 36 103/55 85 Mechanical Ventilator 100 10/07/18 21:00 110/59 10/07/18 21:00 152 38 110/59 66 Mechanical Ventilator 100 10/07/18 20:45 160 40 100 10/07/18 20:45 160 38 98/55 Mechanical Ventilator 100 10/07/18 20:30 98.9 146 30 65/40 Mechanical Ventilator 100 10/07/18 20:15 114 17 46/22 Mechanical Ventilator 100 10/07/18 20:00 134 21 51/25 Mechanical Ventilator 100 10/07/18 20:00 42/24 10/07/18 20:00 Mechanical Ventilator Mechanical Ventilator Mechanical Ventilator Mechanical Ventilator 10/07/18 20:00 100 10/07/18 20:00 120 10/07/18 19:26 151 35 30 10/07/18 17:10 108 30 30 10/07/18 16:00 Mechanical Ventilator Mechanical Ventilator 10/07/18 16:00 30 10/07/18 16:00 99.7 130 24 123/91 96 Mechanical Ventilator 30 10/07/18 15:29 108 26 30 10/07/18 15:15 111 Height (Feet): 5 Height (Inches): 5.00 Weight (Pounds): 157 Objective Gen: NAD, On vent satting well 35% O2 HEENT: NCAT, MMM, EOMI LUNGS: CTAB, No W/C, CARDS: RRR, S1, S2, No M/R/G, ABD: Soft, NT, distended, + BS,G tube (No E/P) NEURO: Intubated, not following Laboratory Tests Test 10/07/18 17:10 10/07/18 20:24 10/08/18 05:10 10/08/18 07:18 White Blood Count 29.5 K/UL (4.8-10.8) #*H 48.6 K/UL (4.8-10.8) #*H Red Blood Count 2.38 M/UL (4.70-6.10) L 2.54 M/UL (4.70-6.10) L Hemoglobin 7.2 G/DL (14.2-18.0) L 7.7 G/DL (14.2-18.0) L Hematocrit 21.6 % (42.0-52.0) L 23.1 % (42.0-52.0) L Mean Corpuscular Volume 91 FL (80-99) 91 FL (80-99) Mean Corpuscular Hemoglobin 30.3 PG (27.0-31.0) 30.5 PG (27.0-31.0) Mean Corpuscular Hemoglobin Concent 33.2 G/DL (32.0-36.0) 33.5 G/DL (32.0-36.0) Red Cell Distribution Width 13.0 % (11.6-14.8) 13.7 % (11.6-14.8) Platelet Count 594 K/UL (150-450) H 260 K/UL (150-450) # Mean Platelet Volume 6.3 FL (6.5-10.1) L 7.0 FL (6.5-10.1) Neutrophils (%) (Auto) % (45.0-75.0) % (45.0-75.0) Lymphocytes (%) (Auto) % (20.0-45.0) % (20.0-45.0) Monocytes (%) (Auto) % (1.0-10.0) % (1.0-10.0) Eosinophils (%) (Auto) % (0.0-3.0) % (0.0-3.0) Basophils (%) (Auto) % (0.0-2.0) % (0.0-2.0) Differential Total Cells Counted 100 100 Neutrophils % (Manual) 86 % (45-75) H 84 % (45-75) H Lymphocytes % (Manual) 5 % (20-45) L 4 % (20-45) L Monocytes % (Manual) 5 % (1-10) 2 % (1-10) Eosinophils % (Manual) 2 % (0-3) 0 % (0-3) Basophils % (Manual) 0 % (0-2) 0 % (0-2) Band Neutrophils 2 % (0-8) 6 % (0-8) Platelet Estimate Increased H Adequate Platelet Morphology Normal Normal Polychromasia 1+ 1+ Hypochromasia 1+ 1+ Anisocytosis 2+ 1+ Arterial Blood pH 7.264 (7.350-7.450) Arterial Blood Partial Pressure CO2 25.2 mmHg (35.0-45.0) L Arterial Blood Partial Pressure O2 539.1 mmHg (75.0-100.0) H Arterial Blood HCO3 11.2 mmol/L (22.0-26.0) *L Arterial Blood Oxygen Saturation 99.2 % (95-100) Arterial Blood Base Excess -14.6 (-2-2) *L Harvey Test N/a Metamyelocytes % 1 % (0-0) H Myelocytes % 3 % (0-0) H Prothrombin Time 22.6 SEC (9.30-11.50) H Prothromb Time International Ratio 2.2 (0.9-1.1) H Activated Partial Thromboplast Time 49 SEC (23-33) H Sodium Level 136 MMOL/L (136-145) Potassium Level 6.1 MMOL/L (3.5-5.1) #*H Chloride Level 103 MMOL/L (98-107) Carbon Dioxide Level 9 MMOL/L (21-32) *L Anion Gap 24 mmol/L (5-15) H Blood Urea Nitrogen 19 mg/dL (7-18) H Creatinine 2.0 MG/DL (0.55-1.30) #H Estimat Glomerular Filtration Rate 34.3 mL/min (>60) Glucose Level 243 MG/DL (74-106) H Calcium Level 7.0 MG/DL (8.5-10.1) L Phosphorus Level 7.9 MG/DL (2.5-4.9) H Magnesium Level 2.3 MG/DL (1.8-2.4) Total Bilirubin 1.2 MG/DL (0.2-1.0) H Direct Bilirubin < 0.1 MG/DL (0.0-0.3) Aspartate Amino Transf (AST/SGOT) 3627 U/L (15-37) H Alanine Aminotransferase (ALT/SGPT) 1134 U/L (12-78) H Alkaline Phosphatase 93 U/L (46-116) Total Protein 4.6 G/DL (6.4-8.2) L Albumin 0.9 G/DL (3.4-5.0) L Globulin 3.7 g/dL Albumin/Globulin Ratio 0.2 (1.0-2.7) L Test 10/08/18 08:10 10/08/18 09:10 C-Reactive Protein, Quantitative 5.8 mg/dL (0.00-0.90) H Arterial Blood pH 7.409 (7.350-7.450) Arterial Blood Partial Pressure CO2 16.5 mmHg (35.0-45.0) *L Arterial Blood Partial Pressure O2 146.2 mmHg (75.0-100.0) H Arterial Blood HCO3 10.2 mmol/L (22.0-26.0) *L Arterial Blood Oxygen Saturation 97.8 % (95-100) Arterial Blood Base Excess -12.9 (-2-2) *L Harvey Test Positive Current Medications Medications (Trade) Dose Ordered Sig/Julito Route PRN Reason Start Time Stop Time Status Last Admin Dose Admin Acetaminophen (Tylenol) 650 mg Q4H PRN NG Mild Pain/Temp > 100.5 10/07/18 21:18 11/06/18 21:17 Acetaminophen (Tylenol) 650 mg Q4H PRN RECTAL Mild Pain (Pain Scale 1-3) 10/07/18 21:18 11/06/18 21:17 Albuterol/ Ipratropium (Albuterol/ Ipratropium) 3 ml Q4H PRN HHN sob 10/07/18 23:00 10/12/18 22:59 Chlorhexidine Gluconate (Camila-Hex 2%) 1 applic DAILY@2000 TOPIC 10/08/18 20:00 10/15/18 19:59 Loperamide HCl (Imodium) 4 mg TIDPRN PRN ORAL Diarrhea 10/07/18 21:20 11/06/18 21:19 Micafungin Sodium 100 mg/Sodium Chloride 110 ml @ 110 mls/hr Q24H IVPB 10/08/18 18:00 10/12/18 17:59 Norepinephrine Bitartrate 16 mg/ Dextrose 500 ml @ 0 mls/hr Q24H IV 10/07/18 22:00 11/06/18 21:59 10/08/18 10:44 Pantoprazole (Protonix) 40 mg Q12HR IVP 10/07/18 22:00 11/06/18 21:59 10/08/18 09:32 Piperacillin Sod/ Tazobactam Sod 3.375 gm/Sodium Chloride 110 ml @ 27.5 mls/hr EVERY 8 HOURS IVPB 10/07/18 22:00 10/12/18 13:59 10/08/18 13:20 Risperidone (RisperDAL) 0.25 mg QHS ORAL 10/07/18 22:00 10/10/18 21:59 Sodium Bicarbonate 100 ml/Dextrose/ Sodium Chloride 1,100 ml @ 100 mls/hr Q11H IV 10/08/18 13:00 11/07/18 12:59 10/08/18 13:11 Sodium Chloride 500 ml @ 999 mls/hr Q31M PRN IV SBP<90mmHg 10/07/18 21:18 11/06/18 21:17 Kell Larkin M.D. Oct 08, 2018 14:26
[2018-10-08] MEDS ORDERED: Potassium Phosphate 30 MM in NS 275 ML IV ONE (15:00)
--- NOTE | 2018-10-08 15:08 | General Progress Note ---
Assessment/Plan Problem List: (1) UTI (urinary tract infection) ICD Codes: N39.0 - Urinary tract infection, site not specified SNOMED: 09153052 (2) Renal failure ICD Codes: N19 - Unspecified kidney failure SNOMED: 29759813 (3) Anemia ICD Codes: D64.9 - Anemia, unspecified SNOMED: 233754499 (4) Acute respiratory failure ICD Codes: J96.00 - Acute respiratory failure, unspecified whether with hypoxia or hypercapnia SNOMED: 30814360 (5) Pneumonia ICD Codes: J18.9 - Pneumonia, unspecified organism SNOMED: 832163861 (6) Septic shock ICD Codes: A41.9 - Sepsis, unspecified organism; R65.21 - Severe sepsis with septic shock SNOMED: 48082628 (7) ATN (acute tubular necrosis) ICD Codes: N17.0 - Acute kidney failure with tubular necrosis SNOMED: 63377484 Status: unchanged Assessment/Plan vent abx wound care neph f/u gi eval, tpn cbc bmp am pressor support transfuse prn Subjective Constitutional: Reports: weakness Allergies: Coded Allergies: No Known Allergies (Unverified , 08/14/18) All Systems: reviewed and negative except above Subjective trach vent altered lethargic in icu on pressor Objective Last 24 Hour Vital Signs Date Time Temp Pulse Resp B/P (MAP) Pulse Ox O2 Delivery O2 Flow Rate FiO2 10/08/18 14:00 78/44 10/08/18 14:00 124 27 78/44 100 Mechanical Ventilator 40 10/08/18 13:30 131 34 76/56 100 Mechanical Ventilator 40 10/08/18 13:00 139 30 77/43 100 Mechanical Ventilator 40 10/08/18 13:00 77/43 10/08/18 12:32 140 31 40 10/08/18 12:30 141 22 78/50 100 Mechanical Ventilator 40 10/08/18 12:00 Mechanical Ventilator Mechanical Ventilator 10/08/18 12:00 99.5 148 34 97/65 100 Mechanical Ventilator 40 10/08/18 12:00 40 10/08/18 12:00 97/65 10/08/18 11:30 149 24 98/60 100 Mechanical Ventilator 40 10/08/18 11:00 92/64 10/08/18 11:00 141 31 92/64 100 Mechanical Ventilator 40 10/08/18 10:45 148 37 40 10/08/18 10:44 120/65 10/08/18 10:30 144 34 120/65 100 Mechanical Ventilator 40 10/08/18 10:00 110/64 10/08/18 10:00 141 33 110/64 100 Mechanical Ventilator 40 10/08/18 09:30 143 29 82/56 100 Mechanical Ventilator 40 10/08/18 09:07 148 33 40 10/08/18 09:00 147 34 91/61 100 Mechanical Ventilator 40 10/08/18 09:00 91/61 10/08/18 08:30 148 31 95/74 100 Mechanical Ventilator 40 10/08/18 08:06 100.5 150 35 95/74 100 Mechanical Ventilator 40 10/08/18 08:00 152 10/08/18 08:00 40 10/08/18 07:00 92/55 10/08/18 07:00 142 36 92/55 Mechanical Ventilator 50 10/08/18 06:46 141 34 40 10/08/18 06:45 141 30 88/59 Mechanical Ventilator 50 10/08/18 06:30 140 27 101/65 Mechanical Ventilator 50 10/08/18 06:15 141 36 104/59 Mechanical Ventilator 50 10/08/18 06:00 87/55 10/08/18 06:00 140 37 93/59 100 Mechanical Ventilator 60 10/08/18 05:45 139 37 94/57 100 Mechanical Ventilator 60 10/08/18 05:30 139 42 83/55 100 Mechanical Ventilator 60 10/08/18 05:15 139 41 92/62 100 Mechanical Ventilator 60 10/08/18 05:00 106/66 10/08/18 05:00 139 41 106/66 100 Mechanical Ventilator 60 10/08/18 04:47 134 40 50 10/08/18 04:45 133 39 78/53 100 Mechanical Ventilator 60 10/08/18 04:30 138 38 112/66 100 Mechanical Ventilator 60 10/08/18 04:15 142 37 113/57 100 Mechanical Ventilator 60 10/08/18 04:00 99.0 141 41 89/73 100 Mechanical Ventilator 60 10/08/18 04:00 141 10/08/18 04:00 Mechanical Ventilator Mechanical Ventilator Mechanical Ventilator Mechanical Ventilator 10/08/18 04:00 89/73 10/08/18 04:00 60 10/08/18 03:45 141 39 109/75 100 Mechanical Ventilator 60 10/08/18 03:30 140 26 119/69 100 Mechanical Ventilator 60 10/08/18 03:15 141 29 95/60 100 Mechanical Ventilator 60 10/08/18 03:00 141 24 89/58 100 Mechanical Ventilator 60 10/08/18 03:00 89/58 10/08/18 02:50 140 39 60 10/08/18 02:45 141 33 108/66 100 Mechanical Ventilator 60 10/08/18 02:30 142 34 93/65 100 Mechanical Ventilator 60 10/08/18 02:15 142 34 111/51 100 Mechanical Ventilator 60 10/08/18 02:00 143 42 112/63 100 Mechanical Ventilator 60 10/08/18 02:00 112/63 10/08/18 01:45 134 24 110/65 100 Mechanical Ventilator 60 10/08/18 01:30 138 20 117/54 100 Mechanical Ventilator 60 10/08/18 01:15 138 33 125/69 98 Mechanical Ventilator 60 10/08/18 01:00 139 38 108/55 98 Mechanical Ventilator 60 10/08/18 01:00 108/55 10/08/18 00:45 140 42 119/61 100 Mechanical Ventilator 100 10/08/18 00:44 138 43 100 10/08/18 00:30 139 41 120/57 100 Mechanical Ventilator 100 10/08/18 00:15 138 40 107/51 100 Mechanical Ventilator 100 10/08/18 00:02 100 10/08/18 00:01 135 10/08/18 00:00 98.8 138 38 114/63 100 Mechanical Ventilator 100 10/08/18 00:00 114/63 10/08/18 00:00 Mechanical Ventilator Mechanical Ventilator Mechanical Ventilator Mechanical Ventilator 10/07/18 23:45 139 42 92/40 100 Mechanical Ventilator 100 10/07/18 23:30 138 41 100/52 100 Mechanical Ventilator 100 10/07/18 23:27 90/49 10/07/18 23:15 134 37 90/49 100 Mechanical Ventilator 100 10/07/18 23:00 136 39 86/34 100 Mechanical Ventilator 100 10/07/18 22:54 138 39 100 10/07/18 22:45 141 39 94/32 100 Mechanical Ventilator 100 10/07/18 22:30 148 41 108/46 100 Mechanical Ventilator 100 10/07/18 22:15 152 39 96/56 100 Mechanical Ventilator 100 10/07/18 22:00 98/50 10/07/18 22:00 149 40 98/50 100 Mechanical Ventilator 100 10/07/18 21:45 144 37 97/45 99 Mechanical Ventilator 100 10/07/18 21:30 143 37 104/73 99 Mechanical Ventilator 100 10/07/18 21:15 143 36 103/55 85 Mechanical Ventilator 100 10/07/18 21:00 110/59 10/07/18 21:00 152 38 110/59 66 Mechanical Ventilator 100 10/07/18 20:45 160 40 100 10/07/18 20:45 160 38 98/55 Mechanical Ventilator 100 10/07/18 20:30 98.9 146 30 65/40 Mechanical Ventilator 100 10/07/18 20:15 114 17 46/22 Mechanical Ventilator 100 10/07/18 20:00 134 21 51/25 Mechanical Ventilator 100 10/07/18 20:00 42/24 10/07/18 20:00 Mechanical Ventilator Mechanical Ventilator Mechanical Ventilator Mechanical Ventilator 10/07/18 20:00 100 10/07/18 20:00 120 10/07/18 19:26 151 35 30 10/07/18 17:10 108 30 30 10/07/18 16:00 Mechanical Ventilator Mechanical Ventilator 10/07/18 16:00 30 10/07/18 16:00 99.7 130 24 123/91 96 Mechanical Ventilator 30 10/07/18 15:29 108 26 30 10/07/18 15:15 111 Intake and Output 10/07/18 10/08/18 19:00 07:00 Intake Total 1412.665 ml 3256.5 ml Output Total 1365 ml 860 ml Balance 47.665 ml 2396.5 ml IV Total 1412.665 ml 2656.5 ml Blood Product 600 ml Output Urine Total 1050 ml 180 ml Stool Total 10 ml 200 ml Drainage Total 305 ml 480 ml Laboratory Tests 10/07/18 17:10: White Blood Count 29.5#*H, Red Blood Count 2.38L, Hemoglobin 7.2L, Hematocrit 21.6L, Mean Corpuscular Volume 91, Mean Corpuscular Hemoglobin 30.3, Mean Corpuscular Hemoglobin Concent 33.2, Red Cell Distribution Width 13.0, Platelet Count 594H, Mean Platelet Volume 6.3L, Neutrophils (%) (Auto) , Lymphocytes (%) (Auto) , Monocytes (%) (Auto) , Eosinophils (%) (Auto) , Basophils (%) (Auto) , Differential Total Cells Counted 100, Neutrophils % (Manual) 86H, Lymphocytes % (Manual) 5L, Monocytes % (Manual) 5, Eosinophils % (Manual) 2, Basophils % ( Manual) 0, Band Neutrophils 2, Platelet Estimate IncreasedH, Platelet Morphology Normal, Polychromasia 1+, Hypochromasia 1+, Anisocytosis 2+ 10/07/18 20:24: Arterial Blood pH 7.264L, Arterial Blood Partial Pressure CO2 25.2L, Arterial Blood Partial Pressure O2 539.1H, Arterial Blood HCO3 11.2*L, Arterial Blood Oxygen Saturation 99.2, Arterial Blood Base Excess -14.6*L, Harvey Test N/a 10/08/18 05:10: White Blood Count 48.6#*H, Red Blood Count 2.54L, Hemoglobin 7.7L, Hematocrit 23.1L, Mean Corpuscular Volume 91, Mean Corpuscular Hemoglobin 30.5, Mean Corpuscular Hemoglobin Concent 33.5, Red Cell Distribution Width 13.7, Platelet Count 260#, Mean Platelet Volume 7.0, Neutrophils (%) (Auto) , Lymphocytes (%) ( Auto) , Monocytes (%) (Auto) , Eosinophils (%) (Auto) , Basophils (%) (Auto) , Differential Total Cells Counted 100, Neutrophils % (Manual) 84H, Lymphocytes % (Manual) 4L, Monocytes % (Manual) 2, Eosinophils % (Manual) 0, Basophils % ( Manual) 0, Band Neutrophils 6, Platelet Estimate Adequate, Platelet Morphology Normal, Polychromasia 1+, Hypochromasia 1+, Anisocytosis 1+, Metamyelocytes % 1H , Myelocytes % 3H, Prothrombin Time 22.6H, Prothromb Time International Ratio 2.2H, Activated Partial Thromboplast Time 49H 10/08/18 07:18: Sodium Level 136, Potassium Level 6.1#*H, Chloride Level 103, Carbon Dioxide Level 9*L, Anion Gap 24H, Blood Urea Nitrogen 19H, Creatinine 2.0#H, Estimat Glomerular Filtration Rate 34.3, Glucose Level 243H, Calcium Level 7.0L, Phosphorus Level 7.9H, Magnesium Level 2.3, Total Bilirubin 1.2H, Direct Bilirubin < 0.1, Aspartate Amino Transf (AST/SGOT) 3627H, Alanine Aminotransferase (ALT/SGPT) 1134H, Alkaline Phosphatase 93, Total Protein 4.6L, Albumin 0.9L, Globulin 3.7, Albumin/Globulin Ratio 0.2L 10/08/18 08:10: C-Reactive Protein, Quantitative 5.8H 10/08/18 09:10: Arterial Blood pH 7.409, Arterial Blood Partial Pressure CO2 16.5*L, Arterial Blood Partial Pressure O2 146.2H, Arterial Blood HCO3 10.2*L, Arterial Blood Oxygen Saturation 97.8, Arterial Blood Base Excess -12.9*L, Harvey Test Positive Height (Feet): 5 Height (Inches): 5.00 Weight (Pounds): 157 General Appearance: lethargic EENT: normal ENT inspection Neck: normal alignment Cardiovascular: normal peripheral pulses, normal rate, regular rhythm Respiratory/Chest: chest wall non-tender, decreased breath sounds Abdomen: normal bowel sounds, non tender, decreased bowel sounds Extremities: normal inspection Edema: no edema noted Arm (L), no edema noted Arm (R), no edema noted Leg (L), no edema noted Leg (R), no edema noted Pedal (L), no edema noted Pedal (R), no edema noted Generalized Neurologic: motor weakness Skin: normal pigmentation, warm/dry Jasmeet Reynoso DO Oct 08, 2018 15:08
--- NOTE | 2018-10-08 15:25 | General Progress Note ---
Progress Note Progress Note BIOETHICS COMMITTEE NOTE This patient was discussed by the Bioethics committee on September 22. Interval events noted. The committee supports the recommendation of the treating physicians that the patient be transferred to an LTAC for continued care. We will be available as needed for further input. Marvin Brown MD Oct 08, 2018 15:25
--- NOTE | 2018-10-08 16:02 | Cardiac Electrophysiology PN ---
Assessment/Plan Assessment/Plan 1. Septic and hemorrhagic shock with Lactic acidosis and WBC now 48K On Abx and maxed out on Levophed S/P PRBC 2. Sinus tachycardia due to sepsis, anemia and dehydration. No fibrillation. EF 75%. Repeat ECG showed sinus tach 150 3. Troponin elevation due to renal failure. EF 75%. 4. VDRF. S/P Tracheostomy 09/22/18 5. Rhabdomyolysis with CPK in thousands contributing to renal failure. 6. Acute renal failure and severe hyperkalemia. FU by Dr. Smalls 7. Dysphagia, Hx of PEG placement but was dislodged. 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 Left one Bloody. Right one serous FU Dr Fry 8. GI bleed. S/P EGD by Dr. Horton. S/p PRBCs DW RN in ICU Extremely poor prognosis Subjective Subjective On the Vent via tracheostomy. On TPN and Lipid.Transferred to ICU for hypotension and agonal breathing. Now on Max levophed Objective Last 24 Hour Vital Signs Date Time Temp Pulse Resp B/P (MAP) Pulse Ox O2 Delivery O2 Flow Rate FiO2 10/08/18 15:30 133 28 78/51 99 Mechanical Ventilator 40 10/08/18 15:02 135 32 40 10/08/18 15:00 136 39 93/60 100 Mechanical Ventilator 40 10/08/18 14:30 130 30 81/52 100 Mechanical Ventilator 40 10/08/18 14:00 78/44 10/08/18 14:00 124 27 78/44 100 Mechanical Ventilator 40 10/08/18 13:30 131 34 76/56 100 Mechanical Ventilator 40 10/08/18 13:00 139 30 77/43 100 Mechanical Ventilator 40 10/08/18 13:00 77/43 10/08/18 12:32 140 31 40 10/08/18 12:30 141 22 78/50 100 Mechanical Ventilator 40 10/08/18 12:00 Mechanical Ventilator Mechanical Ventilator 10/08/18 12:00 99.5 148 34 97/65 100 Mechanical Ventilator 40 10/08/18 12:00 40 10/08/18 12:00 139 10/08/18 12:00 97/65 10/08/18 11:30 149 24 98/60 100 Mechanical Ventilator 40 10/08/18 11:00 92/64 10/08/18 11:00 141 31 92/64 100 Mechanical Ventilator 40 10/08/18 10:45 148 37 40 10/08/18 10:44 120/65 10/08/18 10:30 144 34 120/65 100 Mechanical Ventilator 40 10/08/18 10:00 110/64 10/08/18 10:00 141 33 110/64 100 Mechanical Ventilator 40 10/08/18 09:30 143 29 82/56 100 Mechanical Ventilator 40 10/08/18 09:07 148 33 40 10/08/18 09:00 147 34 91/61 100 Mechanical Ventilator 40 10/08/18 09:00 91/61 10/08/18 08:30 148 31 95/74 100 Mechanical Ventilator 40 10/08/18 08:06 100.5 150 35 95/74 100 Mechanical Ventilator 40 10/08/18 08:00 152 10/08/18 08:00 40 10/08/18 07:00 92/55 10/08/18 07:00 142 36 92/55 Mechanical Ventilator 50 10/08/18 06:46 141 34 40 10/08/18 06:45 141 30 88/59 Mechanical Ventilator 50 10/08/18 06:30 140 27 101/65 Mechanical Ventilator 50 10/08/18 06:15 141 36 104/59 Mechanical Ventilator 50 10/08/18 06:00 87/55 10/08/18 06:00 140 37 93/59 100 Mechanical Ventilator 60 10/08/18 05:45 139 37 94/57 100 Mechanical Ventilator 60 10/08/18 05:30 139 42 83/55 100 Mechanical Ventilator 60 10/08/18 05:15 139 41 92/62 100 Mechanical Ventilator 60 10/08/18 05:00 106/66 10/08/18 05:00 139 41 106/66 100 Mechanical Ventilator 60 10/08/18 04:47 134 40 50 10/08/18 04:45 133 39 78/53 100 Mechanical Ventilator 60 10/08/18 04:30 138 38 112/66 100 Mechanical Ventilator 60 10/08/18 04:15 142 37 113/57 100 Mechanical Ventilator 60 10/08/18 04:00 99.0 141 41 89/73 100 Mechanical Ventilator 60 10/08/18 04:00 141 10/08/18 04:00 Mechanical Ventilator Mechanical Ventilator Mechanical Ventilator Mechanical Ventilator 10/08/18 04:00 89/73 10/08/18 04:00 60 10/08/18 03:45 141 39 109/75 100 Mechanical Ventilator 60 10/08/18 03:30 140 26 119/69 100 Mechanical Ventilator 60 10/08/18 03:15 141 29 95/60 100 Mechanical Ventilator 60 10/08/18 03:00 141 24 89/58 100 Mechanical Ventilator 60 10/08/18 03:00 89/58 10/08/18 02:50 140 39 60 10/08/18 02:45 141 33 108/66 100 Mechanical Ventilator 60 10/08/18 02:30 142 34 93/65 100 Mechanical Ventilator 60 10/08/18 02:15 142 34 111/51 100 Mechanical Ventilator 60 10/08/18 02:00 143 42 112/63 100 Mechanical Ventilator 60 10/08/18 02:00 112/63 10/08/18 01:45 134 24 110/65 100 Mechanical Ventilator 60 10/08/18 01:30 138 20 117/54 100 Mechanical Ventilator 60 10/08/18 01:15 138 33 125/69 98 Mechanical Ventilator 60 10/08/18 01:00 139 38 108/55 98 Mechanical Ventilator 60 10/08/18 01:00 108/55 10/08/18 00:45 140 42 119/61 100 Mechanical Ventilator 100 10/08/18 00:44 138 43 100 10/08/18 00:30 139 41 120/57 100 Mechanical Ventilator 100 10/08/18 00:15 138 40 107/51 100 Mechanical Ventilator 100 10/08/18 00:02 100 10/08/18 00:01 135 10/08/18 00:00 98.8 138 38 114/63 100 Mechanical Ventilator 100 10/08/18 00:00 114/63 10/08/18 00:00 Mechanical Ventilator Mechanical Ventilator Mechanical Ventilator Mechanical Ventilator 10/07/18 23:45 139 42 92/40 100 Mechanical Ventilator 100 10/07/18 23:30 138 41 100/52 100 Mechanical Ventilator 100 10/07/18 23:27 90/49 10/07/18 23:15 134 37 90/49 100 Mechanical Ventilator 100 10/07/18 23:00 136 39 86/34 100 Mechanical Ventilator 100 10/07/18 22:54 138 39 100 10/07/18 22:45 141 39 94/32 100 Mechanical Ventilator 100 10/07/18 22:30 148 41 108/46 100 Mechanical Ventilator 100 10/07/18 22:15 152 39 96/56 100 Mechanical Ventilator 100 10/07/18 22:00 98/50 10/07/18 22:00 149 40 98/50 100 Mechanical Ventilator 100 10/07/18 21:45 144 37 97/45 99 Mechanical Ventilator 100 10/07/18 21:30 143 37 104/73 99 Mechanical Ventilator 100 10/07/18 21:15 143 36 103/55 85 Mechanical Ventilator 100 10/07/18 21:00 110/59 10/07/18 21:00 152 38 110/59 66 Mechanical Ventilator 100 10/07/18 20:45 160 40 100 10/07/18 20:45 160 38 98/55 Mechanical Ventilator 100 10/07/18 20:30 98.9 146 30 65/40 Mechanical Ventilator 100 10/07/18 20:15 114 17 46/22 Mechanical Ventilator 100 10/07/18 20:00 134 21 51/25 Mechanical Ventilator 100 10/07/18 20:00 42/24 10/07/18 20:00 Mechanical Ventilator Mechanical Ventilator Mechanical Ventilator Mechanical Ventilator 10/07/18 20:00 100 10/07/18 20:00 120 10/07/18 19:26 151 35 30 10/07/18 17:10 108 30 30 10/07/18 16:00 Mechanical Ventilator Mechanical Ventilator 10/07/18 16:00 30 10/07/18 16:00 99.7 130 24 123/91 96 Mechanical Ventilator 30 Intake and Output 10/07/18 10/08/18 19:00 07:00 Intake Total 1412.665 ml 3256.5 ml Output Total 1365 ml 860 ml Balance 47.665 ml 2396.5 ml IV Total 1412.665 ml 2656.5 ml Blood Product 600 ml Output Urine Total 1050 ml 180 ml Stool Total 10 ml 200 ml Drainage Total 305 ml 480 ml Laboratory Tests Test 10/07/18 17:10 10/07/18 20:24 10/08/18 05:10 10/08/18 07:18 White Blood Count 29.5 K/UL (4.8-10.8) #*H 48.6 K/UL (4.8-10.8) #*H Red Blood Count 2.38 M/UL (4.70-6.10) L 2.54 M/UL (4.70-6.10) L Hemoglobin 7.2 G/DL (14.2-18.0) L 7.7 G/DL (14.2-18.0) L Hematocrit 21.6 % (42.0-52.0) L 23.1 % (42.0-52.0) L Mean Corpuscular Volume 91 FL (80-99) 91 FL (80-99) Mean Corpuscular Hemoglobin 30.3 PG (27.0-31.0) 30.5 PG (27.0-31.0) Mean Corpuscular Hemoglobin Concent 33.2 G/DL (32.0-36.0) 33.5 G/DL (32.0-36.0) Red Cell Distribution Width 13.0 % (11.6-14.8) 13.7 % (11.6-14.8) Platelet Count 594 K/UL (150-450) H 260 K/UL (150-450) # Mean Platelet Volume 6.3 FL (6.5-10.1) L 7.0 FL (6.5-10.1) Neutrophils (%) (Auto) % (45.0-75.0) % (45.0-75.0) Lymphocytes (%) (Auto) % (20.0-45.0) % (20.0-45.0) Monocytes (%) (Auto) % (1.0-10.0) % (1.0-10.0) Eosinophils (%) (Auto) % (0.0-3.0) % (0.0-3.0) Basophils (%) (Auto) % (0.0-2.0) % (0.0-2.0) Differential Total Cells Counted 100 100 Neutrophils % (Manual) 86 % (45-75) H 84 % (45-75) H Lymphocytes % (Manual) 5 % (20-45) L 4 % (20-45) L Monocytes % (Manual) 5 % (1-10) 2 % (1-10) Eosinophils % (Manual) 2 % (0-3) 0 % (0-3) Basophils % (Manual) 0 % (0-2) 0 % (0-2) Band Neutrophils 2 % (0-8) 6 % (0-8) Platelet Estimate Increased H Adequate Platelet Morphology Normal Normal Polychromasia 1+ 1+ Hypochromasia 1+ 1+ Anisocytosis 2+ 1+ Arterial Blood pH 7.264 (7.350-7.450) Arterial Blood Partial Pressure CO2 25.2 mmHg (35.0-45.0) L Arterial Blood Partial Pressure O2 539.1 mmHg (75.0-100.0) H Arterial Blood HCO3 11.2 mmol/L (22.0-26.0) *L Arterial Blood Oxygen Saturation 99.2 % (95-100) Arterial Blood Base Excess -14.6 (-2-2) *L Harvey Test N/a Metamyelocytes % 1 % (0-0) H Myelocytes % 3 % (0-0) H Prothrombin Time 22.6 SEC (9.30-11.50) H Prothromb Time International Ratio 2.2 (0.9-1.1) H Activated Partial Thromboplast Time 49 SEC (23-33) H Sodium Level 136 MMOL/L (136-145) Potassium Level 6.1 MMOL/L (3.5-5.1) #*H Chloride Level 103 MMOL/L (98-107) Carbon Dioxide Level 9 MMOL/L (21-32) *L Anion Gap 24 mmol/L (5-15) H Blood Urea Nitrogen 19 mg/dL (7-18) H Creatinine 2.0 MG/DL (0.55-1.30) #H Estimat Glomerular Filtration Rate 34.3 mL/min (>60) Glucose Level 243 MG/DL (74-106) H Calcium Level 7.0 MG/DL (8.5-10.1) L Phosphorus Level 7.9 MG/DL (2.5-4.9) H Magnesium Level 2.3 MG/DL (1.8-2.4) Total Bilirubin 1.2 MG/DL (0.2-1.0) H Direct Bilirubin < 0.1 MG/DL (0.0-0.3) Aspartate Amino Transf (AST/SGOT) 3627 U/L (15-37) H Alanine Aminotransferase (ALT/SGPT) 1134 U/L (12-78) H Alkaline Phosphatase 93 U/L (46-116) Total Protein 4.6 G/DL (6.4-8.2) L Albumin 0.9 G/DL (3.4-5.0) L Globulin 3.7 g/dL Albumin/Globulin Ratio 0.2 (1.0-2.7) L Test 10/08/18 08:10 10/08/18 09:10 C-Reactive Protein, Quantitative 5.8 mg/dL (0.00-0.90) H Arterial Blood pH 7.409 (7.350-7.450) Arterial Blood Partial Pressure CO2 16.5 mmHg (35.0-45.0) *L Arterial Blood Partial Pressure O2 146.2 mmHg (75.0-100.0) H Arterial Blood HCO3 10.2 mmol/L (22.0-26.0) *L Arterial Blood Oxygen Saturation 97.8 % (95-100) Arterial Blood Base Excess -12.9 (-2-2) *L Harvey Test Positive Objective HEENT: S/P tracheostomy. LUNGS: Coarse rhonchi. CARDIOVASCULAR: Regular S1 and S2. ABDOMEN: Incision slightly oozing and has 2 drains EXTREMITIES: No pitting edema. Jasbir Madsen MD Oct 08, 2018 16:02
--- NOTE | 2018-10-08 16:19 | General Progress Note ---
Progress Note Progress Note Surgery: leukocytosis near 50k today anemia. transfused prbc left drain that was somewhat dislodged prior is now draining dark blood with clots on pressors. HD unstable unfortunately too high risk for surgery at this time. etiology of sudden bleed unknown. does not look like actively bleeding at this time. given recent CT findings concerns for possible gastric breakdown. prognosis very guarded if shows improvement can consider surgery again but currently too unstable trend h/h abx transfuse prbc Isreal Lynne Oct 08, 2018 16:19
[2018-10-08] MEDS: Micafungin 100 MG in NS 110 ML IVPB SCH (16:57)
[2018-10-08] MEDS: Meropenem 1 GM in NS 55 ML IVPB SCH (16:57)
[2018-10-08] MEDS: DAPTOmycin 450 MG in NS 55 ML IV SCH (16:57)
--- NOTE | 2018-10-08 20:00 | Progress Note ---
DATE: 10/08/2018 HISTORY OF PRESENT ILLNESS: The patient is a 62-year-old male patient with septic shock. This patient is very confused and disorganized. He has septic shock, anemia, and GI bleeding. This patient has altered mental status worsened by the stress of his medical illness. MENTAL STATUS EXAMINATION: This is a 62-year-old male. Appearance is disheveled. Attitude, irritable and agitated. Affect, guarded and restricted. Intellect poor. Mood depressed and anxious. Motor activity, psychomotor agitation. Attention span is poor. Orientation x2. Speech is pretty much nonverbal. Insight and judgment is poor. DIAGNOSIS: Paranoid schizophrenia with acute exacerbation. PLAN: Treat the patient with Risperdal 0.25 mg at bedtime to help stabilize the mood and reduce agitation. A 20 minutes of behavioral management was provided. Chart reviewed and discussed with staff. Seen and assessed at bedside. Virgie Mcdermott M.D. DR: MERRITT JOB#: [id number] CC:
[2018-10-08] MEDS: Dyna-Hex 2% Top Sol 2oz TOPIC SCH (20:16)
[2018-10-09] VITALS (60 sets, daily range): BP systolic 68–124; BP diastolic 45–78
[2018-10-09] MEDS: Sodium Bicarbonate 100 ML in D5 1/2NS 1,000 ML IV SCH ×3 (04:40→22:00)
[2018-10-09] MEDS: Meropenem 1 GM in NS 55 ML IVPB SCH ×2 (04:41→16:21)
[2018-10-09] MEDS: Norepinephrine Bitartrate 16 MG in D5W 500ml 484 ML IV SCH ×2 (05:38→16:07)
[2018-10-09 06:26] LABS: HEMATOCRIT 21.8 % (42.0-52.0); HEMOGLOBIN 7.5 G/DL (14.2-18.0); MEAN CORPUSCULAR VOLUME 91 FL (80-99); PLATELET COUNT 164 K/UL (150-450); RED BLOOD COUNT 2.38 M/UL (4.70-6.10); RED CELL DISTRIBUTION WIDTH 13.6 % (11.6-14.8)
[2018-10-09 06:34] LABS: WHITE BLOOD COUNT 47.6 K/UL (4.8-10.8)
[2018-10-09 07:07] LABS: CREATINE KINASE 782 U/L (26-308); GAMMA GLUTAMYL TRANSPEPTIDASE 87 U/L (5-85)
[2018-10-09 08:09] LABS: ALANINE AMINOTRANSFERASE 1930 U/L (12-78); ALBUMIN 0.8 G/DL (3.4-5.0); ALBUMIN/GLOBULIN RATIO 0.2 (1.0-2.7); ALKALINE PHOSPHATASE 171 U/L (46-116); ANION GAP 23 mmol/L (5-15); BILIRUBIN,TOTAL 1.7 MG/DL (0.2-1.0); BLOOD UREA NITROGEN 36 mg/dL (7-18); CALCIUM 6.6 MG/DL (8.5-10.1); CARBON DIOXIDE 11 MMOL/L (21-32); CHLORIDE 102 MMOL/L (98-107); CREATININE 3.9 MG/DL (0.55-1.30); PHOSPHORUS 8.9 MG/DL (2.5-4.9); POTASSIUM 5.2 MMOL/L (3.5-5.1); SODIUM 136 MMOL/L (136-145)
[2018-10-09 08:11] LABS: BILIRUBIN,DIRECT 1.1 MG/DL (0.0-0.3)
[2018-10-09 08:23] LABS: ASPARTATE AMINO TRANSFERASE 5419 U/L (15-37)
[2018-10-09] MEDS: Pantoprazole Inj IVP SCH ×2 (09:00→21:20)
[2018-10-09 10:13] LABS: APPEARANCE,URINE CLEAR; BILIRUBIN, URINE NEGATIVE (NEGATIVE); COLOR,URINE PALE YELLOW; GLUCOSE, URINE (UA) NEGATIVE (NEGATIVE); KETONES,URINE NEGATIVE (NEGATIVE); LEUKOCYTE ESTERASE ,URINE 3+ (NEGATIVE); NITRITE,URINE NEGATIVE (NEGATIVE); PH,URINE 5 (4.5-8.0); PROTEIN,URINE 3+ (NEGATIVE); UROBILINOGEN,URINE NORMAL MG/DL (0.0-1.0)
--- NOTE | 2018-10-09 11:08 | Nephrology Progress Note ---
Assessment/Plan Problem List: (1) ATN (acute tubular necrosis) Assessment: Cr rising (2) Septic shock (3) Lactic acid acidosis (4) Metabolic acidosis (5) Hyperkalemia (6) G tube feedings (7) Acute respiratory failure Assessment post op 09/22/18: Trach, Splenectomy, Perf.... 10/08- condition worsenned- shock- septic- pressors Sever metabolic acidosis Acute Oliguric Renal Failure presented with Shock , likely septic Acute renal failure resolved Acute metabolic acidosis resolved Hyperkalemia PEG Recent Pneumonia Plan plan: Poor prognosis, remains full code !! hemodynamic support now trached 09/22 post laparatomy 09/22 on pressors again pulmonary support Fluid challenge as needed antibiotics monitor renal parameters and ABG Subjective ROS Limited/Unobtainable: Yes Objective Objective Last 24 Hour Vital Signs Date Time Temp Pulse Resp B/P (MAP) Pulse Ox O2 Delivery O2 Flow Rate FiO2 10/09/18 10:40 139 42 40 40 10/09/18 09:30 137 41 101/71 100 Mechanical Ventilator 40 10/09/18 09:00 137 41 114/70 100 Mechanical Ventilator 40 10/09/18 09:00 114/70 10/09/18 08:58 140 43 40 40 10/09/18 08:30 135 39 121/78 100 Mechanical Ventilator 40 10/09/18 08:00 137 10/09/18 08:00 40 10/09/18 08:00 98.2 133 39 112/72 100 Mechanical Ventilator 40 10/09/18 08:00 112/72 10/09/18 07:30 135 37 113/73 100 Mechanical Ventilator 40 10/09/18 07:29 134 40 40 40 10/09/18 07:00 131 39 124/71 100 Mechanical Ventilator 40 10/09/18 07:00 124/71 10/09/18 06:15 132 34 109/65 100 Mechanical Ventilator 40 10/09/18 06:00 130 39 112/68 100 Mechanical Ventilator 40 10/09/18 06:00 112/68 10/09/18 05:45 131 40 93/61 100 Mechanical Ventilator 40 10/09/18 05:38 81/46 10/09/18 05:30 0 68/45 100 Mechanical Ventilator 40 10/09/18 05:15 140 45 86/49 75 Mechanical Ventilator 40 10/09/18 05:03 130 38 40 40 10/09/18 05:00 131 35 112/65 97 Mechanical Ventilator 40 10/09/18 05:00 112/65 10/09/18 04:45 135 42 108/70 100 Mechanical Ventilator 40 10/09/18 04:30 142 34 83/51 100 Mechanical Ventilator 40 10/09/18 04:20 40 10/09/18 04:15 98.9 144 41 86/58 100 Mechanical Ventilator 40 10/09/18 04:00 140 10/09/18 04:00 Mechanical Ventilator Mechanical Ventilator 10/09/18 04:00 88/51 10/09/18 04:00 144 44 94/63 100 Mechanical Ventilator 40 10/09/18 03:45 136 40 105/71 83 Mechanical Ventilator 40 10/09/18 03:30 140 45 103/60 93 Mechanical Ventilator 40 10/09/18 03:15 139 45 100/68 92 Mechanical Ventilator 40 10/09/18 03:09 139 41 40 40 10/09/18 03:00 142 46 103/65 93 Mechanical Ventilator 40 10/09/18 03:00 103/65 10/09/18 02:45 139 40 93/63 100 Mechanical Ventilator 40 10/09/18 02:30 143 43 93/63 100 Mechanical Ventilator 40 10/09/18 02:15 137 37 100/68 100 Mechanical Ventilator 40 10/09/18 02:00 97/67 10/09/18 02:00 139 38 97/67 100 Mechanical Ventilator 40 10/09/18 01:45 138 39 95/68 100 Mechanical Ventilator 40 10/09/18 01:30 134 36 110/70 90 Mechanical Ventilator 40 10/09/18 01:15 137 38 102/68 100 Mechanical Ventilator 40 10/09/18 01:07 134 37 40 40 10/09/18 01:00 103/69 10/09/18 01:00 134 35 103/69 100 Mechanical Ventilator 40 10/09/18 00:45 134 35 101/69 98 Mechanical Ventilator 40 10/09/18 00:30 136 34 120/68 100 Mechanical Ventilator 40 10/09/18 00:15 135 36 111/76 100 Mechanical Ventilator 40 10/09/18 00:00 132 33 108/69 100 10/09/18 00:00 133 10/09/18 00:00 Mechanical Ventilator Mechanical Ventilator 10/09/18 00:00 98.9 132 33 108/69 100 Mechanical Ventilator 40 10/09/18 00:00 98/73 10/09/18 00:00 40 10/08/18 23:45 133 35 104/64 100 Mechanical Ventilator 40 10/08/18 23:30 133 33 98/73 100 Mechanical Ventilator 40 10/08/18 23:15 134 34 104/67 100 Mechanical Ventilator 40 10/08/18 23:00 133 36 104/63 93 Mechanical Ventilator 40 10/08/18 23:00 104/63 10/08/18 22:45 132 35 105/70 93 Mechanical Ventilator 40 10/08/18 22:33 130 41 40 40 10/08/18 22:30 132 39 147/84 98 Mechanical Ventilator 40 10/08/18 22:15 132 36 115/77 100 Mechanical Ventilator 40 10/08/18 22:00 132 36 Mechanical Ventilator 40 10/08/18 22:00 132 36 122/76 100 Mechanical Ventilator 40 10/08/18 22:00 122/76 10/08/18 21:45 132 34 114/71 99 Mechanical Ventilator 40 10/08/18 21:30 131 31 112/72 100 Mechanical Ventilator 40 10/08/18 21:17 132 37 40 40 10/08/18 21:15 132 37 104/75 100 Mechanical Ventilator 40 10/08/18 21:00 113/72 10/08/18 21:00 132 31 106/68 100 Mechanical Ventilator 40 10/08/18 20:45 133 36 110/65 100 Mechanical Ventilator 40 10/08/18 20:30 133 41 105/61 100 Mechanical Ventilator 40 10/08/18 20:16 74/44 10/08/18 20:15 134 40 97/63 100 Mechanical Ventilator 40 10/08/18 20:00 40 10/08/18 20:00 Mechanical Ventilator Mechanical Ventilator 10/08/18 20:00 99.5 136 43 113/66 99 Mechanical Ventilator 40 10/08/18 20:00 133 10/08/18 19:45 132 44 118/62 100 Mechanical Ventilator 40 10/08/18 19:30 132 37 87/60 100 Mechanical Ventilator 40 10/08/18 19:26 134 45 40 40 10/08/18 19:15 135 33 85/52 100 Mechanical Ventilator 40 10/08/18 19:00 133 36 80/53 100 Mechanical Ventilator 40 10/08/18 18:30 134 38 85/54 100 Mechanical Ventilator 40 10/08/18 18:00 132 33 74/50 100 Mechanical Ventilator 40 10/08/18 17:30 137 35 66/40 100 Mechanical Ventilator 40 10/08/18 17:00 109/61 10/08/18 17:00 138 28 109/61 100 Mechanical Ventilator 40 10/08/18 16:38 135 31 40 10/08/18 16:30 124 32 69/38 100 Mechanical Ventilator 40 10/08/18 16:00 99.8 136 33 83/46 100 Mechanical Ventilator 40 10/08/18 16:00 132 10/08/18 16:00 83/46 10/08/18 16:00 Mechanical Ventilator Mechanical Ventilator 10/08/18 16:00 40 10/08/18 15:30 133 28 78/51 99 Mechanical Ventilator 40 10/08/18 15:02 135 32 40 10/08/18 15:00 136 39 93/60 100 Mechanical Ventilator 40 10/08/18 15:00 93/60 10/08/18 14:30 130 30 81/52 100 Mechanical Ventilator 40 10/08/18 14:00 78/44 10/08/18 14:00 124 27 78/44 100 Mechanical Ventilator 40 10/08/18 13:30 131 34 76/56 100 Mechanical Ventilator 40 10/08/18 13:00 139 30 77/43 100 Mechanical Ventilator 40 10/08/18 13:00 77/43 10/08/18 12:32 140 31 40 10/08/18 12:30 141 22 78/50 100 Mechanical Ventilator 40 10/08/18 12:00 Mechanical Ventilator Mechanical Ventilator 10/08/18 12:00 99.5 148 34 97/65 100 Mechanical Ventilator 40 10/08/18 12:00 40 10/08/18 12:00 139 10/08/18 12:00 97/65 10/08/18 11:30 149 24 98/60 100 Mechanical Ventilator 40 Intake and Output 10/08/18 10/09/18 19:00 07:00 Intake Total 1890.00 ml 2243.75 ml Output Total 170 ml 395 ml Balance 1720.00 ml 1848.75 ml Intake Oral 0 ml IV Total 1720.00 ml 1773.75 ml Blood Product 150 ml 450 ml Other 20 ml 20 ml Output Urine Total 20 ml 25 ml Stool Total 0 ml 50 ml Drainage Total 150 ml 320 ml Laboratory Tests 10/09/18 05:30: White Blood Count 47.6*H, Red Blood Count 2.38L, Hemoglobin 7.5L, Hematocrit 21.8L, Mean Corpuscular Volume 91, Mean Corpuscular Hemoglobin 31.7H, Mean Corpuscular Hemoglobin Concent 34.7, Red Cell Distribution Width 13.6, Platelet Count 164, Mean Platelet Volume 8.0, Neutrophils (%) (Auto) , Lymphocytes (%) ( Auto) , Monocytes (%) (Auto) , Eosinophils (%) (Auto) , Basophils (%) (Auto) , Differential Total Cells Counted 100, Neutrophils % (Manual) 85H, Lymphocytes % (Manual) 4L, Monocytes % (Manual) 3, Eosinophils % (Manual) 1, Basophils % ( Manual) 0, Myelocytes % 1H, Band Neutrophils 6, Nucleated Red Blood Cells 2, Platelet Estimate Adequate, Platelet Morphology , Giant Platelets Occasional, Polychromasia 1+, Hypochromasia 1+, Urine Color Pale yellow, Urine Appearance Clear, Urine pH 5, Urine Specific [place] 1.005, Urine Protein 3+H, Urine Glucose (UA) Negative, Urine Ketones Negative, Urine Blood 5+H, Urine Nitrite Negative, Urine Bilirubin Negative, Urine Urobilinogen Normal, Urine Leukocyte Esterase 3+H, Urine RBC 10-15H, Urine WBC 5-10H, Urine Squamous Epithelial Cells Occasional, Urine Bacteria Few, Sodium Level 136, Potassium Level 5.2H, Chloride Level 102, Carbon Dioxide Level 11L, Anion Gap 23H, Blood Urea Nitrogen 36H, Creatinine 3.9#H, Estimat Glomerular Filtration Rate 15.8, Glucose Level 221H, Lactic Acid Level 11.80H, Uric Acid 7.2, Calcium Level 6.6L , Phosphorus Level 8.9H, Magnesium Level 2.3, Total Bilirubin 1.7H, Direct Bilirubin 1.1H, Gamma Glutamyl Transpeptidase 87H, Aspartate Amino Transf (AST/ SGOT) 5419H, Alanine Aminotransferase (ALT/SGPT) 1930H, Alkaline Phosphatase 171H, Total Creatine Kinase 782H, Troponin I 1.260H, Pro-B-Type Natriuretic Peptide 43796S, Total Protein 4.3L, Albumin 0.8L, Globulin 3.5, Albumin/ Globulin Ratio 0.2L, Cortisol AM Sample [Pending] 10/09/18 09:10: Lactic Acid Level 10.00H 10/09/18 09:33: Arterial Blood pH 7.421, Arterial Blood Partial Pressure CO2 12.2*L, Arterial Blood Partial Pressure O2 105.9H, Arterial Blood HCO3 7.8*L, Arterial Blood Oxygen Saturation 96.9, Arterial Blood Base Excess -14.7*L, Harvey Test Positive Height (Feet): 5 Height (Inches): 5.00 Weight (Pounds): 159 General Appearance: moderate distress Cardiovascular: tachycardia Respiratory/Chest: decreased breath sounds Abdomen: distended Objective no other changes Josesito Smalls MD Oct 09, 2018 11:08
--- NOTE | 2018-10-09 11:48 | Surgery Progress Note ---
Surgery Progress Note Subjective Procedure Performed 1. exploratory laparotomy 2. repair of gastric perforation 3. evacuation of abdominal omental hematoma 4. evacuation of perisplenic abscess 5. omentectomy 6. splenectomy 7. abdominal washout 8. tracheostomy Symptoms: other Objective Last 24 Hour Vital Signs Date Time Temp Pulse Resp B/P (MAP) Pulse Ox O2 Delivery O2 Flow Rate FiO2 10/09/18 10:40 139 42 40 40 10/09/18 09:30 137 41 101/71 100 Mechanical Ventilator 40 10/09/18 09:00 137 41 114/70 100 Mechanical Ventilator 40 10/09/18 09:00 114/70 10/09/18 08:58 140 43 40 40 10/09/18 08:30 135 39 121/78 100 Mechanical Ventilator 40 10/09/18 08:00 137 10/09/18 08:00 40 10/09/18 08:00 98.2 133 39 112/72 100 Mechanical Ventilator 40 10/09/18 08:00 112/72 10/09/18 07:30 135 37 113/73 100 Mechanical Ventilator 40 10/09/18 07:29 134 40 40 40 10/09/18 07:00 131 39 124/71 100 Mechanical Ventilator 40 10/09/18 07:00 124/71 10/09/18 06:15 132 34 109/65 100 Mechanical Ventilator 40 10/09/18 06:00 130 39 112/68 100 Mechanical Ventilator 40 10/09/18 06:00 112/68 10/09/18 05:45 131 40 93/61 100 Mechanical Ventilator 40 10/09/18 05:38 81/46 10/09/18 05:30 0 68/45 100 Mechanical Ventilator 40 10/09/18 05:15 140 45 86/49 75 Mechanical Ventilator 40 10/09/18 05:03 130 38 40 40 10/09/18 05:00 131 35 112/65 97 Mechanical Ventilator 40 10/09/18 05:00 112/65 10/09/18 04:45 135 42 108/70 100 Mechanical Ventilator 40 10/09/18 04:30 142 34 83/51 100 Mechanical Ventilator 40 10/09/18 04:20 40 10/09/18 04:15 98.9 144 41 86/58 100 Mechanical Ventilator 40 10/09/18 04:00 140 10/09/18 04:00 Mechanical Ventilator Mechanical Ventilator 10/09/18 04:00 88/51 10/09/18 04:00 144 44 94/63 100 Mechanical Ventilator 40 10/09/18 03:45 136 40 105/71 83 Mechanical Ventilator 40 10/09/18 03:30 140 45 103/60 93 Mechanical Ventilator 40 10/09/18 03:15 139 45 100/68 92 Mechanical Ventilator 40 10/09/18 03:09 139 41 40 40 10/09/18 03:00 142 46 103/65 93 Mechanical Ventilator 40 10/09/18 03:00 103/65 10/09/18 02:45 139 40 93/63 100 Mechanical Ventilator 40 10/09/18 02:30 143 43 93/63 100 Mechanical Ventilator 40 10/09/18 02:15 137 37 100/68 100 Mechanical Ventilator 40 10/09/18 02:00 97/67 10/09/18 02:00 139 38 97/67 100 Mechanical Ventilator 40 10/09/18 01:45 138 39 95/68 100 Mechanical Ventilator 40 10/09/18 01:30 134 36 110/70 90 Mechanical Ventilator 40 10/09/18 01:15 137 38 102/68 100 Mechanical Ventilator 40 10/09/18 01:07 134 37 40 40 10/09/18 01:00 103/69 10/09/18 01:00 134 35 103/69 100 Mechanical Ventilator 40 10/09/18 00:45 134 35 101/69 98 Mechanical Ventilator 40 10/09/18 00:30 136 34 120/68 100 Mechanical Ventilator 40 10/09/18 00:15 135 36 111/76 100 Mechanical Ventilator 40 10/09/18 00:00 132 33 108/69 100 10/09/18 00:00 133 10/09/18 00:00 Mechanical Ventilator Mechanical Ventilator 10/09/18 00:00 98.9 132 33 108/69 100 Mechanical Ventilator 40 10/09/18 00:00 98/73 10/09/18 00:00 40 10/08/18 23:45 133 35 104/64 100 Mechanical Ventilator 40 10/08/18 23:30 133 33 98/73 100 Mechanical Ventilator 40 10/08/18 23:15 134 34 104/67 100 Mechanical Ventilator 40 10/08/18 23:00 133 36 104/63 93 Mechanical Ventilator 40 10/08/18 23:00 104/63 10/08/18 22:45 132 35 105/70 93 Mechanical Ventilator 40 10/08/18 22:33 130 41 40 40 10/08/18 22:30 132 39 147/84 98 Mechanical Ventilator 40 10/08/18 22:15 132 36 115/77 100 Mechanical Ventilator 40 10/08/18 22:00 132 36 Mechanical Ventilator 40 10/08/18 22:00 132 36 122/76 100 Mechanical Ventilator 40 10/08/18 22:00 122/76 10/08/18 21:45 132 34 114/71 99 Mechanical Ventilator 40 10/08/18 21:30 131 31 112/72 100 Mechanical Ventilator 40 10/08/18 21:17 132 37 40 40 10/08/18 21:15 132 37 104/75 100 Mechanical Ventilator 40 10/08/18 21:00 113/72 10/08/18 21:00 132 31 106/68 100 Mechanical Ventilator 40 10/08/18 20:45 133 36 110/65 100 Mechanical Ventilator 40 10/08/18 20:30 133 41 105/61 100 Mechanical Ventilator 40 10/08/18 20:16 74/44 10/08/18 20:15 134 40 97/63 100 Mechanical Ventilator 40 10/08/18 20:00 40 10/08/18 20:00 Mechanical Ventilator Mechanical Ventilator 10/08/18 20:00 99.5 136 43 113/66 99 Mechanical Ventilator 40 10/08/18 20:00 133 10/08/18 19:45 132 44 118/62 100 Mechanical Ventilator 40 10/08/18 19:30 132 37 87/60 100 Mechanical Ventilator 40 10/08/18 19:26 134 45 40 40 10/08/18 19:15 135 33 85/52 100 Mechanical Ventilator 40 10/08/18 19:00 133 36 80/53 100 Mechanical Ventilator 40 10/08/18 18:30 134 38 85/54 100 Mechanical Ventilator 40 10/08/18 18:00 132 33 74/50 100 Mechanical Ventilator 40 10/08/18 17:30 137 35 66/40 100 Mechanical Ventilator 40 10/08/18 17:00 109/61 10/08/18 17:00 138 28 109/61 100 Mechanical Ventilator 40 10/08/18 16:38 135 31 40 10/08/18 16:30 124 32 69/38 100 Mechanical Ventilator 40 10/08/18 16:00 99.8 136 33 83/46 100 Mechanical Ventilator 40 10/08/18 16:00 132 10/08/18 16:00 83/46 10/08/18 16:00 Mechanical Ventilator Mechanical Ventilator 10/08/18 16:00 40 10/08/18 15:30 133 28 78/51 99 Mechanical Ventilator 40 10/08/18 15:02 135 32 40 10/08/18 15:00 136 39 93/60 100 Mechanical Ventilator 40 10/08/18 15:00 93/60 10/08/18 14:30 130 30 81/52 100 Mechanical Ventilator 40 10/08/18 14:00 78/44 10/08/18 14:00 124 27 78/44 100 Mechanical Ventilator 40 10/08/18 13:30 131 34 76/56 100 Mechanical Ventilator 40 10/08/18 13:00 139 30 77/43 100 Mechanical Ventilator 40 10/08/18 13:00 77/43 10/08/18 12:32 140 31 40 10/08/18 12:30 141 22 78/50 100 Mechanical Ventilator 40 10/08/18 12:00 Mechanical Ventilator Mechanical Ventilator 10/08/18 12:00 99.5 148 34 97/65 100 Mechanical Ventilator 40 10/08/18 12:00 40 10/08/18 12:00 139 10/08/18 12:00 97/65 I&O Intake and Output 10/08/18 10/09/18 19:00 07:00 Intake Total 1890.00 ml 2243.75 ml Output Total 170 ml 395 ml Balance 1720.00 ml 1848.75 ml Intake Oral 0 ml IV Total 1720.00 ml 1773.75 ml Blood Product 150 ml 450 ml Other 20 ml 20 ml Output Urine Total 20 ml 25 ml Stool Total 0 ml 50 ml Drainage Total 150 ml 320 ml Dressing: other Wound: other Drains: josephine Cardiovascular: RSR Respiratory: decreased breath sounds Abdomen: soft, other, non-distended, decreased bowel sounds Extremities: no cyanosis Laboratory Tests Test 10/09/18 05:30 10/09/18 09:10 10/09/18 09:33 White Blood Count 47.6 K/UL (4.8-10.8) *H Red Blood Count 2.38 M/UL (4.70-6.10) L Hemoglobin 7.5 G/DL (14.2-18.0) L Hematocrit 21.8 % (42.0-52.0) L Mean Corpuscular Volume 91 FL (80-99) Mean Corpuscular Hemoglobin 31.7 PG (27.0-31.0) H Mean Corpuscular Hemoglobin Concent 34.7 G/DL (32.0-36.0) Red Cell Distribution Width 13.6 % (11.6-14.8) Platelet Count 164 K/UL (150-450) Mean Platelet Volume 8.0 FL (6.5-10.1) Neutrophils (%) (Auto) % (45.0-75.0) Lymphocytes (%) (Auto) % (20.0-45.0) Monocytes (%) (Auto) % (1.0-10.0) Eosinophils (%) (Auto) % (0.0-3.0) Basophils (%) (Auto) % (0.0-2.0) Differential Total Cells Counted 100 Neutrophils % (Manual) 85 % (45-75) H Lymphocytes % (Manual) 4 % (20-45) L Monocytes % (Manual) 3 % (1-10) Eosinophils % (Manual) 1 % (0-3) Basophils % (Manual) 0 % (0-2) Myelocytes % 1 % (0-0) H Band Neutrophils 6 % (0-8) Nucleated Red Blood Cells 2 /100 WBC Platelet Estimate Adequate Platelet Morphology Giant Platelets Occasional Polychromasia 1+ Hypochromasia 1+ Urine Color Pale yellow Urine Appearance Clear Urine pH 5 (4.5-8.0) Urine Specific [place] 1.005 (1.005-1.035) Urine Protein 3+ (NEGATIVE) H Urine Glucose (UA) Negative (NEGATIVE) Urine Ketones Negative (NEGATIVE) Urine Blood 5+ (NEGATIVE) H Urine Nitrite Negative (NEGATIVE) Urine Bilirubin Negative (NEGATIVE) Urine Urobilinogen Normal MG/DL (0.0-1.0) Urine Leukocyte Esterase 3+ (NEGATIVE) H Urine RBC 10-15 /HPF (0 - 0) H Urine WBC 5-10 /HPF (0 - 0) H Urine Squamous Epithelial Cells Occasional /LPF Urine Bacteria Few /HPF (NONE) Sodium Level 136 MMOL/L (136-145) Potassium Level 5.2 MMOL/L (3.5-5.1) H Chloride Level 102 MMOL/L (98-107) Carbon Dioxide Level 11 MMOL/L (21-32) L Anion Gap 23 mmol/L (5-15) H Blood Urea Nitrogen 36 mg/dL (7-18) H Creatinine 3.9 MG/DL (0.55-1.30) #H Estimat Glomerular Filtration Rate 15.8 mL/min (>60) Glucose Level 221 MG/DL (74-106) H Lactic Acid Level 11.80 mmol/L (0.4-2.0) H 10.00 mmol/L (0.66-2.22) H Uric Acid 7.2 MG/DL (2.6-7.2) Calcium Level 6.6 MG/DL (8.5-10.1) L Phosphorus Level 8.9 MG/DL (2.5-4.9) H Magnesium Level 2.3 MG/DL (1.8-2.4) Total Bilirubin 1.7 MG/DL (0.2-1.0) H Direct Bilirubin 1.1 MG/DL (0.0-0.3) H Gamma Glutamyl Transpeptidase 87 U/L (5-85) H Aspartate Amino Transf (AST/SGOT) 5419 U/L (15-37) H Alanine Aminotransferase (ALT/SGPT) 1930 U/L (12-78) H Alkaline Phosphatase 171 U/L (46-116) H Total Creatine Kinase 782 U/L (26-308) H Troponin I 1.260 ng/mL (0.000-0.056) Pro-B-Type Natriuretic Peptide 43916 pg/mL (0-125) H Total Protein 4.3 G/DL (6.4-8.2) L Albumin 0.8 G/DL (3.4-5.0) L Globulin 3.5 g/dL Albumin/Globulin Ratio 0.2 (1.0-2.7) L Cortisol AM Sample Pending Arterial Blood pH 7.421 (7.350-7.450) Arterial Blood Partial Pressure CO2 12.2 mmHg (35.0-45.0) *L Arterial Blood Partial Pressure O2 105.9 mmHg (75.0-100.0) H Arterial Blood HCO3 7.8 mmol/L (22.0-26.0) *L Arterial Blood Oxygen Saturation 96.9 % (95-100) Arterial Blood Base Excess -14.7 (-2-2) *L Harvey Test Positive Assessment Post-op Diagnosis 1. large omental perigastric hematoma 2. malpositioned PEG tube with gastric perforation 3. large perisplenic abscess 4. abdominal peritonitis 5. respiratory insufficiency requiring prolonged ventilatory support Plan Problems: (1) Decubitus skin ulcer Assessment & Plan: Pt presents with multiple skin issues. Intact serous blister noted to lateral R abd (L)2.6cm x (W)2.2cm. Intact serous blister lateral R abd (L)0.7cm x (W)1.4cm. 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 Erythema with induration along borders. Buttocks without evidence of skin breakdown. Both heels are dry and easily blanchable. Tx.Plan: Cleanse wound R Hip with Saline.Recommend Silvasorb gel .Apply Cavilon Skin Barrier periwound.Cover with Optifoam drsg every 3 Days and prn. Apply Cavilon Skin Barrier to Blisters (2) R abd. Cover with Optifoam drsg.Change every 7 days and PRN. Apply Moisture barrier to sacrum .Cover with Optifoam .Change every 7 days and prn. Air Fluidized mattress. Apply Cavilon to both heels .Off-load heels with pillow. (2) Septic shock Assessment & Plan: leukocytosis anemia. stable left drain that was somewhat dislodged prior is now draining dark blood with clots on pressors. HD unstable unfortunately too high risk for surgery at this time. etiology of sudden bleed unknown. does not look like actively bleeding at this time. given recent CT findings concerns for possible gastric breakdown. prognosis very guarded likely transient bleed from partially dislodged drain. now without active bleeding will monitor trend h/h abx transfuse prbc (3) Protein-calorie malnutrition, severe Assessment & Plan: will need nutritional optimization to recover and heal wounds nutrition consult Isreal Lynne Oct 09, 2018 11:48
--- NOTE | 2018-10-09 11:57 | Diagnostic Imaging Report ---
Indication: Dyspnea Technique: One view of the chest Comparison: 10/08/2018 Findings: Less optimal inspiration. Increasing bilateral mid and lower lung hazy opacity, likely reflects increasing bilateral pleural effusions, possibly exaggerated to some extent by the lower lung volumes.. Tracheostomy remains. Impression: Hypoventilatory exam Suspect increasing pleural fluid bilaterally.
--- NOTE | 2018-10-09 13:04 | Pulmonolgy Critical Care Note ---
Critical Care - Asmt/Plan Problems: (1) Septic shock (2) Acute respiratory failure (3) ATN (acute tubular necrosis) (4) Metabolic acidosis (5) Gastric rupture Respiratory: monitor respiratory rate, adjust FIO2, CXR Cardiac: continue to monitor HR/BP Renal: keep IV fluid Infectious Disease: check cultures Endocrine: monitor blood sugar, continue sliding scale insulin Hematologic: monitor H/H, transfuse if hgb<8.5 Neurologic: PRN Morphine, keep patient comfortable Prophylaxis: Protonix Time Spent (Minutes): 40 Notes Reviewed: cardio Discussed with: nurses, consultants, case management social workerarchitectural practice manager - Objective Last 24 Hour Vital Signs Date Time Temp Pulse Resp B/P (MAP) Pulse Ox O2 Delivery O2 Flow Rate FiO2 10/09/18 10:40 139 42 40 40 10/09/18 09:30 137 41 101/71 100 Mechanical Ventilator 40 10/09/18 09:00 137 41 114/70 100 Mechanical Ventilator 40 10/09/18 09:00 114/70 10/09/18 08:58 140 43 40 40 10/09/18 08:30 135 39 121/78 100 Mechanical Ventilator 40 10/09/18 08:00 137 10/09/18 08:00 Mechanical Ventilator Mechanical Ventilator 10/09/18 08:00 40 10/09/18 08:00 98.2 133 39 112/72 100 Mechanical Ventilator 40 10/09/18 08:00 112/72 10/09/18 07:30 135 37 113/73 100 Mechanical Ventilator 40 10/09/18 07:29 134 40 40 40 10/09/18 07:00 131 39 124/71 100 Mechanical Ventilator 40 10/09/18 07:00 124/71 10/09/18 06:15 132 34 109/65 100 Mechanical Ventilator 40 10/09/18 06:00 130 39 112/68 100 Mechanical Ventilator 40 10/09/18 06:00 112/68 10/09/18 05:45 131 40 93/61 100 Mechanical Ventilator 40 10/09/18 05:38 81/46 10/09/18 05:30 0 68/45 100 Mechanical Ventilator 40 10/09/18 05:15 140 45 86/49 75 Mechanical Ventilator 40 10/09/18 05:03 130 38 40 40 10/09/18 05:00 131 35 112/65 97 Mechanical Ventilator 40 10/09/18 05:00 112/65 10/09/18 04:45 135 42 108/70 100 Mechanical Ventilator 40 10/09/18 04:30 142 34 83/51 100 Mechanical Ventilator 40 10/09/18 04:20 40 10/09/18 04:15 98.9 144 41 86/58 100 Mechanical Ventilator 40 10/09/18 04:00 140 10/09/18 04:00 Mechanical Ventilator Mechanical Ventilator 10/09/18 04:00 88/51 10/09/18 04:00 144 44 94/63 100 Mechanical Ventilator 40 10/09/18 03:45 136 40 105/71 83 Mechanical Ventilator 40 10/09/18 03:30 140 45 103/60 93 Mechanical Ventilator 40 10/09/18 03:15 139 45 100/68 92 Mechanical Ventilator 40 10/09/18 03:09 139 41 40 40 10/09/18 03:00 142 46 103/65 93 Mechanical Ventilator 40 10/09/18 03:00 103/65 10/09/18 02:45 139 40 93/63 100 Mechanical Ventilator 40 10/09/18 02:30 143 43 93/63 100 Mechanical Ventilator 40 10/09/18 02:15 137 37 100/68 100 Mechanical Ventilator 40 10/09/18 02:00 97/67 10/09/18 02:00 139 38 97/67 100 Mechanical Ventilator 40 10/09/18 01:45 138 39 95/68 100 Mechanical Ventilator 40 10/09/18 01:30 134 36 110/70 90 Mechanical Ventilator 40 10/09/18 01:15 137 38 102/68 100 Mechanical Ventilator 40 10/09/18 01:07 134 37 40 40 10/09/18 01:00 103/69 10/09/18 01:00 134 35 103/69 100 Mechanical Ventilator 40 10/09/18 00:45 134 35 101/69 98 Mechanical Ventilator 40 10/09/18 00:30 136 34 120/68 100 Mechanical Ventilator 40 10/09/18 00:15 135 36 111/76 100 Mechanical Ventilator 40 10/09/18 00:00 132 33 108/69 100 10/09/18 00:00 133 10/09/18 00:00 Mechanical Ventilator Mechanical Ventilator 10/09/18 00:00 98.9 132 33 108/69 100 Mechanical Ventilator 40 10/09/18 00:00 98/73 10/09/18 00:00 40 10/08/18 23:45 133 35 104/64 100 Mechanical Ventilator 40 10/08/18 23:30 133 33 98/73 100 Mechanical Ventilator 40 10/08/18 23:15 134 34 104/67 100 Mechanical Ventilator 40 10/08/18 23:00 133 36 104/63 93 Mechanical Ventilator 40 10/08/18 23:00 104/63 10/08/18 22:45 132 35 105/70 93 Mechanical Ventilator 40 10/08/18 22:33 130 41 40 40 10/08/18 22:30 132 39 147/84 98 Mechanical Ventilator 40 10/08/18 22:15 132 36 115/77 100 Mechanical Ventilator 40 10/08/18 22:00 132 36 Mechanical Ventilator 40 10/08/18 22:00 132 36 122/76 100 Mechanical Ventilator 40 10/08/18 22:00 122/76 10/08/18 21:45 132 34 114/71 99 Mechanical Ventilator 40 10/08/18 21:30 131 31 112/72 100 Mechanical Ventilator 40 10/08/18 21:17 132 37 40 40 10/08/18 21:15 132 37 104/75 100 Mechanical Ventilator 40 10/08/18 21:00 113/72 10/08/18 21:00 132 31 106/68 100 Mechanical Ventilator 40 10/08/18 20:45 133 36 110/65 100 Mechanical Ventilator 40 10/08/18 20:30 133 41 105/61 100 Mechanical Ventilator 40 10/08/18 20:16 74/44 10/08/18 20:15 134 40 97/63 100 Mechanical Ventilator 40 10/08/18 20:00 40 10/08/18 20:00 Mechanical Ventilator Mechanical Ventilator 10/08/18 20:00 99.5 136 43 113/66 99 Mechanical Ventilator 40 10/08/18 20:00 133 10/08/18 19:45 132 44 118/62 100 Mechanical Ventilator 40 10/08/18 19:30 132 37 87/60 100 Mechanical Ventilator 40 10/08/18 19:26 134 45 40 40 10/08/18 19:15 135 33 85/52 100 Mechanical Ventilator 40 10/08/18 19:00 133 36 80/53 100 Mechanical Ventilator 40 10/08/18 18:30 134 38 85/54 100 Mechanical Ventilator 40 10/08/18 18:00 132 33 74/50 100 Mechanical Ventilator 40 10/08/18 17:30 137 35 66/40 100 Mechanical Ventilator 40 10/08/18 17:00 109/61 10/08/18 17:00 138 28 109/61 100 Mechanical Ventilator 40 10/08/18 16:38 135 31 40 10/08/18 16:30 124 32 69/38 100 Mechanical Ventilator 40 10/08/18 16:00 99.8 136 33 83/46 100 Mechanical Ventilator 40 10/08/18 16:00 132 10/08/18 16:00 83/46 10/08/18 16:00 Mechanical Ventilator Mechanical Ventilator 10/08/18 16:00 40 10/08/18 15:30 133 28 78/51 99 Mechanical Ventilator 40 10/08/18 15:02 135 32 40 10/08/18 15:00 136 39 93/60 100 Mechanical Ventilator 40 10/08/18 15:00 93/60 10/08/18 14:30 130 30 81/52 100 Mechanical Ventilator 40 10/08/18 14:00 78/44 10/08/18 14:00 124 27 78/44 100 Mechanical Ventilator 40 10/08/18 13:30 131 34 76/56 100 Mechanical Ventilator 40 Status: awake Condition: critical HEENT: atraumatic, normocephalic Heart: HR/BP stable Abdomen: soft, active bowel sounds Micro: Microbiology Date/Time Source Procedure Growth Status 10/08/18 05:15 Blood Blood Culture - Preliminary NO GROWTH AFTER 24 HOURS Resulted 10/08/18 05:10 Blood Blood Culture - Preliminary NO GROWTH AFTER 24 HOURS Resulted Accucheck: 65 Critical Care - Subjective ROS Limited/Unobtainable: Yes Condition: critical EKG Rhythm: Sinus Rhythm FI02: 40 Vent Support Breath Rate: 16 Vent Support Mode: AC Vent Tidal Volume: 500 Sputum Amount: Moderate PEEP: 0.0 PIP: 33 Tube Feeding Amount: 0 I&O: Intake and Output 10/08/18 10/09/18 19:00 07:00 Intake Total 1890.00 ml 2243.75 ml Output Total 170 ml 395 ml Balance 1720.00 ml 1848.75 ml Intake Oral 0 ml IV Total 1720.00 ml 1773.75 ml Blood Product 150 ml 450 ml Other 20 ml 20 ml Output Urine Total 20 ml 25 ml Stool Total 0 ml 50 ml Drainage Total 150 ml 320 ml CXR: ELIOT Labs: Laboratory Tests Test 10/09/18 05:30 10/09/18 09:10 10/09/18 09:33 White Blood Count 47.6 K/UL (4.8-10.8) *H Red Blood Count 2.38 M/UL (4.70-6.10) L Hemoglobin 7.5 G/DL (14.2-18.0) L Hematocrit 21.8 % (42.0-52.0) L Mean Corpuscular Volume 91 FL (80-99) Mean Corpuscular Hemoglobin 31.7 PG (27.0-31.0) H Mean Corpuscular Hemoglobin Concent 34.7 G/DL (32.0-36.0) Red Cell Distribution Width 13.6 % (11.6-14.8) Platelet Count 164 K/UL (150-450) Mean Platelet Volume 8.0 FL (6.5-10.1) Neutrophils (%) (Auto) % (45.0-75.0) Lymphocytes (%) (Auto) % (20.0-45.0) Monocytes (%) (Auto) % (1.0-10.0) Eosinophils (%) (Auto) % (0.0-3.0) Basophils (%) (Auto) % (0.0-2.0) Differential Total Cells Counted 100 Neutrophils % (Manual) 85 % (45-75) H Lymphocytes % (Manual) 4 % (20-45) L Monocytes % (Manual) 3 % (1-10) Eosinophils % (Manual) 1 % (0-3) Basophils % (Manual) 0 % (0-2) Myelocytes % 1 % (0-0) H Band Neutrophils 6 % (0-8) Nucleated Red Blood Cells 2 /100 WBC Platelet Estimate Adequate Platelet Morphology Giant Platelets Occasional Polychromasia 1+ Hypochromasia 1+ Urine Color Pale yellow Urine Appearance Clear Urine pH 5 (4.5-8.0) Urine Specific [place] 1.005 (1.005-1.035) Urine Protein 3+ (NEGATIVE) H Urine Glucose (UA) Negative (NEGATIVE) Urine Ketones Negative (NEGATIVE) Urine Blood 5+ (NEGATIVE) H Urine Nitrite Negative (NEGATIVE) Urine Bilirubin Negative (NEGATIVE) Urine Urobilinogen Normal MG/DL (0.0-1.0) Urine Leukocyte Esterase 3+ (NEGATIVE) H Urine RBC 10-15 /HPF (0 - 0) H Urine WBC 5-10 /HPF (0 - 0) H Urine Squamous Epithelial Cells Occasional /LPF Urine Bacteria Few /HPF (NONE) Sodium Level 136 MMOL/L (136-145) Potassium Level 5.2 MMOL/L (3.5-5.1) H Chloride Level 102 MMOL/L (98-107) Carbon Dioxide Level 11 MMOL/L (21-32) L Anion Gap 23 mmol/L (5-15) H Blood Urea Nitrogen 36 mg/dL (7-18) H Creatinine 3.9 MG/DL (0.55-1.30) #H Estimat Glomerular Filtration Rate 15.8 mL/min (>60) Glucose Level 221 MG/DL (74-106) H Lactic Acid Level 11.80 mmol/L (0.4-2.0) H 10.00 mmol/L (0.66-2.22) H Uric Acid 7.2 MG/DL (2.6-7.2) Calcium Level 6.6 MG/DL (8.5-10.1) L Phosphorus Level 8.9 MG/DL (2.5-4.9) H Magnesium Level 2.3 MG/DL (1.8-2.4) Total Bilirubin 1.7 MG/DL (0.2-1.0) H Direct Bilirubin 1.1 MG/DL (0.0-0.3) H Gamma Glutamyl Transpeptidase 87 U/L (5-85) H Aspartate Amino Transf (AST/SGOT) 5419 U/L (15-37) H Alanine Aminotransferase (ALT/SGPT) 1930 U/L (12-78) H Alkaline Phosphatase 171 U/L (46-116) H Total Creatine Kinase 782 U/L (26-308) H Troponin I 1.260 ng/mL (0.000-0.056) Pro-B-Type Natriuretic Peptide 82161 pg/mL (0-125) H Total Protein 4.3 G/DL (6.4-8.2) L Albumin 0.8 G/DL (3.4-5.0) L Globulin 3.5 g/dL Albumin/Globulin Ratio 0.2 (1.0-2.7) L Cortisol AM Sample Pending Arterial Blood pH 7.421 (7.350-7.450) Arterial Blood Partial Pressure CO2 12.2 mmHg (35.0-45.0) *L Arterial Blood Partial Pressure O2 105.9 mmHg (75.0-100.0) H Arterial Blood HCO3 7.8 mmol/L (22.0-26.0) *L Arterial Blood Oxygen Saturation 96.9 % (95-100) Arterial Blood Base Excess -14.7 (-2-2) *L Harvey Test Positive Po Li MD Oct 09, 2018 13:04
--- NOTE | 2018-10-09 13:11 | General Progress Note ---
Assessment/Plan Problem List: (1) Decubitus skin ulcer ICD Codes: L89.90 - Pressure ulcer of unspecified site, unspecified stage SNOMED: 808620894 (2) Anemia ICD Codes: D64.9 - Anemia, unspecified SNOMED: 765948773 (3) Acute respiratory failure ICD Codes: J96.00 - Acute respiratory failure, unspecified whether with hypoxia or hypercapnia SNOMED: 96453590 (4) Pneumonia ICD Codes: J18.9 - Pneumonia, unspecified organism SNOMED: 244175992 Assessment/Plan REOPERATIVE DIAGNOSES: 1. Malpositioned feeding tube with leak and peritonitis/perforation. 2. Respiratory insufficiency requiring prolonged ventilatory support. POSTOPERATIVE DIAGNOSES: 1. Large omental perigastric hematoma. 2. Malpositioned PEG tube with gastric perforation. 3. Large perisplenic abscess. 4. Abdominal peritonitis. 5. Respiratory insufficiency requiring prolonged ventilatory support. OPERATION PERFORMED: 1. Exploratory laparotomy. 2. Repair of gastric perforation. 3. Evacuation of abdominal omental / lesser sac hematoma. 4. Evacuation of perisplenic hematoma/abscess. 5. Omentectomy. 6. Splenectomy. 7. Abdominal washout. 8. Tracheostomy. RECOMMENDATIONS: fu surgical recommendations prn transfusion ppi off TPN now poor prognosis fu labs Subjective ROS Limited/Unobtainable: No Allergies: Coded Allergies: No Known Allergies (Unverified , 08/14/18) Objective Last 24 Hour Vital Signs Date Time Temp Pulse Resp B/P (MAP) Pulse Ox O2 Delivery O2 Flow Rate FiO2 10/09/18 10:40 139 42 40 40 10/09/18 09:30 137 41 101/71 100 Mechanical Ventilator 40 10/09/18 09:00 137 41 114/70 100 Mechanical Ventilator 40 10/09/18 09:00 114/70 10/09/18 08:58 140 43 40 40 10/09/18 08:30 135 39 121/78 100 Mechanical Ventilator 40 10/09/18 08:00 137 10/09/18 08:00 Mechanical Ventilator Mechanical Ventilator 10/09/18 08:00 40 10/09/18 08:00 98.2 133 39 112/72 100 Mechanical Ventilator 40 10/09/18 08:00 112/72 10/09/18 07:30 135 37 113/73 100 Mechanical Ventilator 40 10/09/18 07:29 134 40 40 40 10/09/18 07:00 131 39 124/71 100 Mechanical Ventilator 40 10/09/18 07:00 124/71 10/09/18 06:15 132 34 109/65 100 Mechanical Ventilator 40 10/09/18 06:00 130 39 112/68 100 Mechanical Ventilator 40 10/09/18 06:00 112/68 10/09/18 05:45 131 40 93/61 100 Mechanical Ventilator 40 10/09/18 05:38 81/46 10/09/18 05:30 0 68/45 100 Mechanical Ventilator 40 10/09/18 05:15 140 45 86/49 75 Mechanical Ventilator 40 10/09/18 05:03 130 38 40 40 10/09/18 05:00 131 35 112/65 97 Mechanical Ventilator 40 10/09/18 05:00 112/65 10/09/18 04:45 135 42 108/70 100 Mechanical Ventilator 40 10/09/18 04:30 142 34 83/51 100 Mechanical Ventilator 40 10/09/18 04:20 40 10/09/18 04:15 98.9 144 41 86/58 100 Mechanical Ventilator 40 10/09/18 04:00 140 10/09/18 04:00 Mechanical Ventilator Mechanical Ventilator 10/09/18 04:00 88/51 10/09/18 04:00 144 44 94/63 100 Mechanical Ventilator 40 10/09/18 03:45 136 40 105/71 83 Mechanical Ventilator 40 10/09/18 03:30 140 45 103/60 93 Mechanical Ventilator 40 10/09/18 03:15 139 45 100/68 92 Mechanical Ventilator 40 10/09/18 03:09 139 41 40 40 10/09/18 03:00 142 46 103/65 93 Mechanical Ventilator 40 10/09/18 03:00 103/65 10/09/18 02:45 139 40 93/63 100 Mechanical Ventilator 40 10/09/18 02:30 143 43 93/63 100 Mechanical Ventilator 40 10/09/18 02:15 137 37 100/68 100 Mechanical Ventilator 40 10/09/18 02:00 97/67 10/09/18 02:00 139 38 97/67 100 Mechanical Ventilator 40 10/09/18 01:45 138 39 95/68 100 Mechanical Ventilator 40 10/09/18 01:30 134 36 110/70 90 Mechanical Ventilator 40 10/09/18 01:15 137 38 102/68 100 Mechanical Ventilator 40 10/09/18 01:07 134 37 40 40 10/09/18 01:00 103/69 10/09/18 01:00 134 35 103/69 100 Mechanical Ventilator 40 10/09/18 00:45 134 35 101/69 98 Mechanical Ventilator 40 10/09/18 00:30 136 34 120/68 100 Mechanical Ventilator 40 10/09/18 00:15 135 36 111/76 100 Mechanical Ventilator 40 10/09/18 00:00 132 33 108/69 100 10/09/18 00:00 133 10/09/18 00:00 Mechanical Ventilator Mechanical Ventilator 10/09/18 00:00 98.9 132 33 108/69 100 Mechanical Ventilator 40 10/09/18 00:00 98/73 10/09/18 00:00 40 10/08/18 23:45 133 35 104/64 100 Mechanical Ventilator 40 10/08/18 23:30 133 33 98/73 100 Mechanical Ventilator 40 10/08/18 23:15 134 34 104/67 100 Mechanical Ventilator 40 10/08/18 23:00 133 36 104/63 93 Mechanical Ventilator 40 10/08/18 23:00 104/63 10/08/18 22:45 132 35 105/70 93 Mechanical Ventilator 40 10/08/18 22:33 130 41 40 40 10/08/18 22:30 132 39 147/84 98 Mechanical Ventilator 40 10/08/18 22:15 132 36 115/77 100 Mechanical Ventilator 40 10/08/18 22:00 132 36 Mechanical Ventilator 40 10/08/18 22:00 132 36 122/76 100 Mechanical Ventilator 40 10/08/18 22:00 122/76 10/08/18 21:45 132 34 114/71 99 Mechanical Ventilator 40 10/08/18 21:30 131 31 112/72 100 Mechanical Ventilator 40 10/08/18 21:17 132 37 40 40 10/08/18 21:15 132 37 104/75 100 Mechanical Ventilator 40 10/08/18 21:00 113/72 10/08/18 21:00 132 31 106/68 100 Mechanical Ventilator 40 10/08/18 20:45 133 36 110/65 100 Mechanical Ventilator 40 10/08/18 20:30 133 41 105/61 100 Mechanical Ventilator 40 10/08/18 20:16 74/44 10/08/18 20:15 134 40 97/63 100 Mechanical Ventilator 40 10/08/18 20:00 40 10/08/18 20:00 Mechanical Ventilator Mechanical Ventilator 10/08/18 20:00 99.5 136 43 113/66 99 Mechanical Ventilator 40 10/08/18 20:00 133 10/08/18 19:45 132 44 118/62 100 Mechanical Ventilator 40 10/08/18 19:30 132 37 87/60 100 Mechanical Ventilator 40 10/08/18 19:26 134 45 40 40 10/08/18 19:15 135 33 85/52 100 Mechanical Ventilator 40 10/08/18 19:00 133 36 80/53 100 Mechanical Ventilator 40 10/08/18 18:30 134 38 85/54 100 Mechanical Ventilator 40 10/08/18 18:00 132 33 74/50 100 Mechanical Ventilator 40 10/08/18 17:30 137 35 66/40 100 Mechanical Ventilator 40 10/08/18 17:00 109/61 10/08/18 17:00 138 28 109/61 100 Mechanical Ventilator 40 10/08/18 16:38 135 31 40 10/08/18 16:30 124 32 69/38 100 Mechanical Ventilator 40 10/08/18 16:00 99.8 136 33 83/46 100 Mechanical Ventilator 40 10/08/18 16:00 132 10/08/18 16:00 83/46 10/08/18 16:00 Mechanical Ventilator Mechanical Ventilator 10/08/18 16:00 40 10/08/18 15:30 133 28 78/51 99 Mechanical Ventilator 40 10/08/18 15:02 135 32 40 10/08/18 15:00 136 39 93/60 100 Mechanical Ventilator 40 10/08/18 15:00 93/60 10/08/18 14:30 130 30 81/52 100 Mechanical Ventilator 40 10/08/18 14:00 78/44 10/08/18 14:00 124 27 78/44 100 Mechanical Ventilator 40 10/08/18 13:30 131 34 76/56 100 Mechanical Ventilator 40 Intake and Output 10/08/18 10/09/18 19:00 07:00 Intake Total 1890.00 ml 2243.75 ml Output Total 170 ml 395 ml Balance 1720.00 ml 1848.75 ml Intake Oral 0 ml IV Total 1720.00 ml 1773.75 ml Blood Product 150 ml 450 ml Other 20 ml 20 ml Output Urine Total 20 ml 25 ml Stool Total 0 ml 50 ml Drainage Total 150 ml 320 ml Laboratory Tests 10/09/18 05:30: White Blood Count 47.6*H, Red Blood Count 2.38L, Hemoglobin 7.5L, Hematocrit 21.8L, Mean Corpuscular Volume 91, Mean Corpuscular Hemoglobin 31.7H, Mean Corpuscular Hemoglobin Concent 34.7, Red Cell Distribution Width 13.6, Platelet Count 164, Mean Platelet Volume 8.0, Neutrophils (%) (Auto) , Lymphocytes (%) ( Auto) , Monocytes (%) (Auto) , Eosinophils (%) (Auto) , Basophils (%) (Auto) , Differential Total Cells Counted 100, Neutrophils % (Manual) 85H, Lymphocytes % (Manual) 4L, Monocytes % (Manual) 3, Eosinophils % (Manual) 1, Basophils % ( Manual) 0, Myelocytes % 1H, Band Neutrophils 6, Nucleated Red Blood Cells 2, Platelet Estimate Adequate, Platelet Morphology , Giant Platelets Occasional, Polychromasia 1+, Hypochromasia 1+, Urine Color Pale yellow, Urine Appearance Clear, Urine pH 5, Urine Specific [place] 1.005, Urine Protein 3+H, Urine Glucose (UA) Negative, Urine Ketones Negative, Urine Blood 5+H, Urine Nitrite Negative, Urine Bilirubin Negative, Urine Urobilinogen Normal, Urine Leukocyte Esterase 3+H, Urine RBC 10-15H, Urine WBC 5-10H, Urine Squamous Epithelial Cells Occasional, Urine Bacteria Few, Sodium Level 136, Potassium Level 5.2H, Chloride Level 102, Carbon Dioxide Level 11L, Anion Gap 23H, Blood Urea Nitrogen 36H, Creatinine 3.9#H, Estimat Glomerular Filtration Rate 15.8, Glucose Level 221H, Lactic Acid Level 11.80H, Uric Acid 7.2, Calcium Level 6.6L , Phosphorus Level 8.9H, Magnesium Level 2.3, Total Bilirubin 1.7H, Direct Bilirubin 1.1H, Gamma Glutamyl Transpeptidase 87H, Aspartate Amino Transf (AST/ SGOT) 5419H, Alanine Aminotransferase (ALT/SGPT) 1930H, Alkaline Phosphatase 171H, Total Creatine Kinase 782H, Troponin I 1.260H, Pro-B-Type Natriuretic Peptide [id number], Total Protein 4.3L, Albumin 0.8L, Globulin 3.5, Albumin/ Globulin Ratio 0.2L, Cortisol AM Sample [Pending] 10/09/18 09:10: Lactic Acid Level 10.00H 10/09/18 09:33: Arterial Blood pH 7.421, Arterial Blood Partial Pressure CO2 12.2*L, Arterial Blood Partial Pressure O2 105.9H, Arterial Blood HCO3 7.8*L, Arterial Blood Oxygen Saturation 96.9, Arterial Blood Base Excess -14.7*L, Harvey Test Positive Height (Feet): 5 Height (Inches): 5.00 Weight (Pounds): 159 General Appearance: lethargic EENT: normal ENT inspection Neck: supple Cardiovascular: tachycardia Respiratory/Chest: decreased breath sounds Abdomen: hypoactive bowel sounds Extremities: non-tender Arthur Horton MD Oct 09, 2018 13:11
--- NOTE | 2018-10-09 13:18 | Infectious Diseases Prog Note ---
Assessment/Plan Assessment/Plan 62 yo male with PMHx of Quadriplegia with G-tube, HTN, DM and Schizophenia who [place] [facility] [facility]. Shock- combination of septic and hypovolemnic (bleeding from ELISABET drain) -10/08 CXR: Slightly improved but persistent interstitial congestion, bilateral interstitial and airspace infiltrates versus edema, over 2 days Bcx NTD u/a wbc 5-10 Displaced GT with perforation c/w peritonitis and hematoma/abscess formation -10/02 CT abd/p: Interval exploratory laparotomy, status post splenectomy, status post removal of gastrostomy tube with 2 abdominal drains noted. Abnormal appearance of the stomach with marked wall thickening and pneumatosis. Abnormal appearance of small bowel and large bowel showing wall thickening and enhancement may be related to enteritis and/or colitis. Trace ascites -09/22 SP Exploratory laparotomy. Repair of gastric perforation. Evacuation of abdominal omental / lesser sac hematoma. Evacuation of perisplenic hematoma/ abscess. Omentectomy. Splenectomy. Abdominal washout. Tracheostomy. -09/21 CT abd/p: The gastrostomy tube appears to be partially intraluminal and partially communicate with a large intramural collection involving mostly the inferior posterior wall of the stomach. There is some anterior wall pneumatosis. Contrast within the collection most likely represents instilled enteric contrast, but could also represent extravasated vascular contrast. There is evidence of rupture of this collection into the peritoneal space, with extravasated contrast in the left upper quadrant. There is anterior gastric wall intramural pneumatosis as well as a small amount of free extraluminal gas. Moderate ascites. Enhancement of much of the peritoneum raises concern for peritonitis. There may also be loculated intraperitoneal collections which could represent abscesses, predominantly adjacent to the tip of the right hepatic lobe, subcapsular in the spleen, and within the left upper quadrant. Thick-walled sigmoid colon, transverse colon and equivocally the proximal jejunum. Likely reactive related to the above, but could also indicate enteritis /colitis changes Leukocytosis, increasing -/ L ELISABET drain (+purulebnt fluid) cx : C. tropicalis -18 u/a neg, ucx NTD Bcx NTD CXR: Over one day, interim development of bilateral supraclavicular subcutaneous emphysema and pneumomediastinum, etiology not demonstrated. Persistent low lung volumes with basilar atelectatic changes and left-sided pleural effusion -09/20 ucx NTD; u/a neg -09/19 CXR: Bilateral pleural effusions and bibasilar atelectasis/airspace disease are stable. Low grade fever; recurrent Diarrhea- -09/27 Cdiff neg GIB Sepsis - Probably PNA , s/p Rx 09/22 CXR: Bilateral pleural effusions, basilar atelectatic changes, and interstitial congestive changes are stable CXR 09/07/18 - possible left sided consolidation Inf neg 09/07/18 BCx 2/ sets diphteroids, 08/12 setse S. epi (contaminants); 09/11 Bcx NTD 09/07/18 SCx - NF 09/07/18 UCx - Neg 09/09 Cdiff neg HTN DM Schizophenia Quadriplegia. G- tube dependent Plan -Cont Meropenem #2 and IV Daptomycin #2 given decompensation -Continue IV Micafungin #17 -10/08 SP Zosyn #17 -f/u Repeat cultures, cdiff -09/28 SP Flagyl #3 - 09/19/18 SP Zosyn #10 - 09/17/18 SP Vancmocyin #10 - 09/09/18 Ertapenem #3 - Monitor CBC and temps -Sx f/u -wound care -critically ill, on ICU and high dose pressors; poor px We will continue to follow the patient during this hospitalization. Discussed with RN. Subjective Allergies: Coded Allergies: No Known Allergies (Unverified , 08/14/18) Subjective afebrile >24hrs wbc high 40s remains on Levophed at 30 Objective Vital Signs Last 24 Hour Vital Signs Date Time Temp Pulse Resp B/P (MAP) Pulse Ox O2 Delivery O2 Flow Rate FiO2 10/09/18 10:40 139 42 40 40 10/09/18 09:30 137 41 101/71 100 Mechanical Ventilator 40 10/09/18 09:00 137 41 114/70 100 Mechanical Ventilator 40 10/09/18 09:00 114/70 10/09/18 08:58 140 43 40 40 10/09/18 08:30 135 39 121/78 100 Mechanical Ventilator 40 10/09/18 08:00 137 10/09/18 08:00 Mechanical Ventilator Mechanical Ventilator 10/09/18 08:00 40 10/09/18 08:00 98.2 133 39 112/72 100 Mechanical Ventilator 40 10/09/18 08:00 112/72 10/09/18 07:30 135 37 113/73 100 Mechanical Ventilator 40 10/09/18 07:29 134 40 40 40 10/09/18 07:00 131 39 124/71 100 Mechanical Ventilator 40 10/09/18 07:00 124/71 10/09/18 06:15 132 34 109/65 100 Mechanical Ventilator 40 10/09/18 06:00 130 39 112/68 100 Mechanical Ventilator 40 10/09/18 06:00 112/68 10/09/18 05:45 131 40 93/61 100 Mechanical Ventilator 40 10/09/18 05:38 81/46 10/09/18 05:30 0 68/45 100 Mechanical Ventilator 40 10/09/18 05:15 140 45 86/49 75 Mechanical Ventilator 40 10/09/18 05:03 130 38 40 40 10/09/18 05:00 131 35 112/65 97 Mechanical Ventilator 40 10/09/18 05:00 112/65 10/09/18 04:45 135 42 108/70 100 Mechanical Ventilator 40 10/09/18 04:30 142 34 83/51 100 Mechanical Ventilator 40 10/09/18 04:20 40 10/09/18 04:15 98.9 144 41 86/58 100 Mechanical Ventilator 40 10/09/18 04:00 140 10/09/18 04:00 Mechanical Ventilator Mechanical Ventilator 10/09/18 04:00 88/51 10/09/18 04:00 144 44 94/63 100 Mechanical Ventilator 40 10/09/18 03:45 136 40 105/71 83 Mechanical Ventilator 40 10/09/18 03:30 140 45 103/60 93 Mechanical Ventilator 40 10/09/18 03:15 139 45 100/68 92 Mechanical Ventilator 40 10/09/18 03:09 139 41 40 40 10/09/18 03:00 142 46 103/65 93 Mechanical Ventilator 40 10/09/18 03:00 103/65 10/09/18 02:45 139 40 93/63 100 Mechanical Ventilator 40 10/09/18 02:30 143 43 93/63 100 Mechanical Ventilator 40 10/09/18 02:15 137 37 100/68 100 Mechanical Ventilator 40 10/09/18 02:00 97/67 10/09/18 02:00 139 38 97/67 100 Mechanical Ventilator 40 10/09/18 01:45 138 39 95/68 100 Mechanical Ventilator 40 10/09/18 01:30 134 36 110/70 90 Mechanical Ventilator 40 10/09/18 01:15 137 38 102/68 100 Mechanical Ventilator 40 10/09/18 01:07 134 37 40 40 10/09/18 01:00 103/69 10/09/18 01:00 134 35 103/69 100 Mechanical Ventilator 40 10/09/18 00:45 134 35 101/69 98 Mechanical Ventilator 40 10/09/18 00:30 136 34 120/68 100 Mechanical Ventilator 40 10/09/18 00:15 135 36 111/76 100 Mechanical Ventilator 40 10/09/18 00:00 132 33 108/69 100 10/09/18 00:00 133 10/09/18 00:00 Mechanical Ventilator Mechanical Ventilator 10/09/18 00:00 98.9 132 33 108/69 100 Mechanical Ventilator 40 10/09/18 00:00 98/73 10/09/18 00:00 40 10/08/18 23:45 133 35 104/64 100 Mechanical Ventilator 40 10/08/18 23:30 133 33 98/73 100 Mechanical Ventilator 40 10/08/18 23:15 134 34 104/67 100 Mechanical Ventilator 40 10/08/18 23:00 133 36 104/63 93 Mechanical Ventilator 40 10/08/18 23:00 104/63 10/08/18 22:45 132 35 105/70 93 Mechanical Ventilator 40 10/08/18 22:33 130 41 40 40 10/08/18 22:30 132 39 147/84 98 Mechanical Ventilator 40 10/08/18 22:15 132 36 115/77 100 Mechanical Ventilator 40 10/08/18 22:00 132 36 Mechanical Ventilator 40 10/08/18 22:00 132 36 122/76 100 Mechanical Ventilator 40 10/08/18 22:00 122/76 10/08/18 21:45 132 34 114/71 99 Mechanical Ventilator 40 10/08/18 21:30 131 31 112/72 100 Mechanical Ventilator 40 10/08/18 21:17 132 37 40 40 10/08/18 21:15 132 37 104/75 100 Mechanical Ventilator 40 10/08/18 21:00 113/72 10/08/18 21:00 132 31 106/68 100 Mechanical Ventilator 40 10/08/18 20:45 133 36 110/65 100 Mechanical Ventilator 40 10/08/18 20:30 133 41 105/61 100 Mechanical Ventilator 40 10/08/18 20:16 74/44 10/08/18 20:15 134 40 97/63 100 Mechanical Ventilator 40 10/08/18 20:00 40 10/08/18 20:00 Mechanical Ventilator Mechanical Ventilator 10/08/18 20:00 99.5 136 43 113/66 99 Mechanical Ventilator 40 10/08/18 20:00 133 10/08/18 19:45 132 44 118/62 100 Mechanical Ventilator 40 10/08/18 19:30 132 37 87/60 100 Mechanical Ventilator 40 10/08/18 19:26 134 45 40 40 10/08/18 19:15 135 33 85/52 100 Mechanical Ventilator 40 10/08/18 19:00 133 36 80/53 100 Mechanical Ventilator 40 10/08/18 18:30 134 38 85/54 100 Mechanical Ventilator 40 10/08/18 18:00 132 33 74/50 100 Mechanical Ventilator 40 10/08/18 17:30 137 35 66/40 100 Mechanical Ventilator 40 10/08/18 17:00 109/61 10/08/18 17:00 138 28 109/61 100 Mechanical Ventilator 40 10/08/18 16:38 135 31 40 10/08/18 16:30 124 32 69/38 100 Mechanical Ventilator 40 10/08/18 16:00 99.8 136 33 83/46 100 Mechanical Ventilator 40 10/08/18 16:00 132 10/08/18 16:00 83/46 10/08/18 16:00 Mechanical Ventilator Mechanical Ventilator 10/08/18 16:00 40 10/08/18 15:30 133 28 78/51 99 Mechanical Ventilator 40 10/08/18 15:02 135 32 40 10/08/18 15:00 136 39 93/60 100 Mechanical Ventilator 40 10/08/18 15:00 93/60 10/08/18 14:30 130 30 81/52 100 Mechanical Ventilator 40 10/08/18 14:00 78/44 10/08/18 14:00 124 27 78/44 100 Mechanical Ventilator 40 10/08/18 13:30 131 34 76/56 100 Mechanical Ventilator 40 Height (Feet): 5 Height (Inches): 5.00 Weight (Pounds): 159 Objective Gen: NAD, On vent satting well 35% O2 HEENT: NCAT, MMM, EOMI LUNGS: CTAB, No W/C, CARDS: RRR, S1, S2, No M/R/G, ABD: Soft, NT, distended, + BS,G tube (No E/P) NEURO: Intubated, not following Microbiology Date/Time Source Procedure Growth Status 10/08/18 05:15 Blood Blood Culture - Preliminary NO GROWTH AFTER 24 HOURS Resulted 10/08/18 05:10 Blood Blood Culture - Preliminary NO GROWTH AFTER 24 HOURS Resulted Laboratory Tests Test 10/09/18 05:30 10/09/18 09:10 10/09/18 09:33 White Blood Count 47.6 K/UL (4.8-10.8) *H Red Blood Count 2.38 M/UL (4.70-6.10) L Hemoglobin 7.5 G/DL (14.2-18.0) L Hematocrit 21.8 % (42.0-52.0) L Mean Corpuscular Volume 91 FL (80-99) Mean Corpuscular Hemoglobin 31.7 PG (27.0-31.0) H Mean Corpuscular Hemoglobin Concent 34.7 G/DL (32.0-36.0) Red Cell Distribution Width 13.6 % (11.6-14.8) Platelet Count 164 K/UL (150-450) Mean Platelet Volume 8.0 FL (6.5-10.1) Neutrophils (%) (Auto) % (45.0-75.0) Lymphocytes (%) (Auto) % (20.0-45.0) Monocytes (%) (Auto) % (1.0-10.0) Eosinophils (%) (Auto) % (0.0-3.0) Basophils (%) (Auto) % (0.0-2.0) Differential Total Cells Counted 100 Neutrophils % (Manual) 85 % (45-75) H Lymphocytes % (Manual) 4 % (20-45) L Monocytes % (Manual) 3 % (1-10) Eosinophils % (Manual) 1 % (0-3) Basophils % (Manual) 0 % (0-2) Myelocytes % 1 % (0-0) H Band Neutrophils 6 % (0-8) Nucleated Red Blood Cells 2 /100 WBC Platelet Estimate Adequate Platelet Morphology Giant Platelets Occasional Polychromasia 1+ Hypochromasia 1+ Urine Color Pale yellow Urine Appearance Clear Urine pH 5 (4.5-8.0) Urine Specific [place] 1.005 (1.005-1.035) Urine Protein 3+ (NEGATIVE) H Urine Glucose (UA) Negative (NEGATIVE) Urine Ketones Negative (NEGATIVE) Urine Blood 5+ (NEGATIVE) H Urine Nitrite Negative (NEGATIVE) Urine Bilirubin Negative (NEGATIVE) Urine Urobilinogen Normal MG/DL (0.0-1.0) Urine Leukocyte Esterase 3+ (NEGATIVE) H Urine RBC 10-15 /HPF (0 - 0) H Urine WBC 5-10 /HPF (0 - 0) H Urine Squamous Epithelial Cells Occasional /LPF Urine Bacteria Few /HPF (NONE) Sodium Level 136 MMOL/L (136-145) Potassium Level 5.2 MMOL/L (3.5-5.1) H Chloride Level 102 MMOL/L (98-107) Carbon Dioxide Level 11 MMOL/L (21-32) L Anion Gap 23 mmol/L (5-15) H Blood Urea Nitrogen 36 mg/dL (7-18) H Creatinine 3.9 MG/DL (0.55-1.30) #H Estimat Glomerular Filtration Rate 15.8 mL/min (>60) Glucose Level 221 MG/DL (74-106) H Lactic Acid Level 11.80 mmol/L (0.4-2.0) H 10.00 mmol/L (0.66-2.22) H Uric Acid 7.2 MG/DL (2.6-7.2) Calcium Level 6.6 MG/DL (8.5-10.1) L Phosphorus Level 8.9 MG/DL (2.5-4.9) H Magnesium Level 2.3 MG/DL (1.8-2.4) Total Bilirubin 1.7 MG/DL (0.2-1.0) H Direct Bilirubin 1.1 MG/DL (0.0-0.3) H Gamma Glutamyl Transpeptidase 87 U/L (5-85) H Aspartate Amino Transf (AST/SGOT) 5419 U/L (15-37) H Alanine Aminotransferase (ALT/SGPT) 1930 U/L (12-78) H Alkaline Phosphatase 171 U/L (46-116) H Total Creatine Kinase 782 U/L (26-308) H Troponin I 1.260 ng/mL (0.000-0.056) Pro-B-Type Natriuretic Peptide 86495 pg/mL (0-125) H Total Protein 4.3 G/DL (6.4-8.2) L Albumin 0.8 G/DL (3.4-5.0) L Globulin 3.5 g/dL Albumin/Globulin Ratio 0.2 (1.0-2.7) L Cortisol AM Sample Pending Arterial Blood pH 7.421 (7.350-7.450) Arterial Blood Partial Pressure CO2 12.2 mmHg (35.0-45.0) *L Arterial Blood Partial Pressure O2 105.9 mmHg (75.0-100.0) H Arterial Blood HCO3 7.8 mmol/L (22.0-26.0) *L Arterial Blood Oxygen Saturation 96.9 % (95-100) Arterial Blood Base Excess -14.7 (-2-2) *L Harvey Test Positive Current Medications Medications (Trade) Dose Ordered Sig/Julito Route PRN Reason Start Time Stop Time Status Last Admin Dose Admin Acetaminophen (Tylenol) 650 mg Q4H PRN NG Mild Pain/Temp > 100.5 10/07/18 21:18 11/06/18 21:17 Acetaminophen (Tylenol) 650 mg Q4H PRN RECTAL Mild Pain (Pain Scale 1-3) 10/07/18 21:18 11/06/18 21:17 Albuterol/ Ipratropium (Albuterol/ Ipratropium) 3 ml Q4H PRN HHN sob 10/07/18 23:00 10/12/18 22:59 Chlorhexidine Gluconate (Camila-Hex 2%) 1 applic DAILY@2000 TOPIC 10/08/18 20:00 10/15/18 19:59 10/08/18 20:16 Daptomycin 450 mg/ Sodium Chloride 55 ml @ 100 mls/hr Q24H IV 10/08/18 18:00 10/15/18 17:59 10/08/18 16:57 Dextrose (Dextrose 50%) 50 ml PRN PRN IV Hypoglycemia 10/08/18 19:30 11/07/18 19:29 10/08/18 19:41 Loperamide HCl (Imodium) 4 mg TIDPRN PRN ORAL Diarrhea 10/07/18 21:20 11/06/18 21:19 Meropenem 1 gm/ Sodium Chloride 55 ml @ 110 mls/hr Q12H IVPB 10/08/18 16:00 10/13/18 15:59 10/09/18 04:41 Micafungin Sodium 100 mg/Sodium Chloride 110 ml @ 110 mls/hr Q24H IVPB 10/08/18 18:00 10/12/18 17:59 10/08/18 16:57 Norepinephrine Bitartrate 16 mg/ Dextrose 500 ml @ 0 mls/hr Q24H IV 10/07/18 22:00 11/06/18 21:59 10/09/18 05:38 Pantoprazole (Protonix) 40 mg Q12HR IVP 10/07/18 22:00 11/06/18 21:59 10/09/18 09:00 Risperidone (RisperDAL) 0.25 mg QHS ORAL 10/07/18 22:00 10/10/18 21:59 Sodium Bicarbonate 100 ml/Dextrose/ Sodium Chloride 1,100 ml @ 100 mls/hr Q11H IV 10/08/18 13:00 11/07/18 12:59 10/09/18 11:56 Sodium Chloride 500 ml @ 999 mls/hr Q31M PRN IV SBP<90mmHg 10/07/18 21:18 11/06/18 21:17 Kell Larkin M.D. Oct 09, 2018 13:18
--- NOTE | 2018-10-09 13:31 | General Progress Note ---
Assessment/Plan Problem List: (1) UTI (urinary tract infection) ICD Codes: N39.0 - Urinary tract infection, site not specified SNOMED: 75764002 (2) Renal failure ICD Codes: N19 - Unspecified kidney failure SNOMED: 61194976 (3) Anemia ICD Codes: D64.9 - Anemia, unspecified SNOMED: 567694710 (4) Acute respiratory failure ICD Codes: J96.00 - Acute respiratory failure, unspecified whether with hypoxia or hypercapnia SNOMED: 05904626 (5) Pneumonia ICD Codes: J18.9 - Pneumonia, unspecified organism SNOMED: 949765825 (6) Septic shock ICD Codes: A41.9 - Sepsis, unspecified organism; R65.21 - Severe sepsis with septic shock SNOMED: 84689045 (7) ATN (acute tubular necrosis) ICD Codes: N17.0 - Acute kidney failure with tubular necrosis SNOMED: 05593646 Status: unchanged Assessment/Plan vent abx wound care neph f/u gi eval, tpn cbc bmp am pressor support transfuse prn Subjective Constitutional: Reports: weakness Allergies: Coded Allergies: No Known Allergies (Unverified , 08/14/18) All Systems: reviewed and negative except above Subjective trach vent altered lethargic in icu on pressor Objective Last 24 Hour Vital Signs Date Time Temp Pulse Resp B/P (MAP) Pulse Ox O2 Delivery O2 Flow Rate FiO2 10/09/18 13:00 135 41 105/69 100 Mechanical Ventilator 40 10/09/18 12:30 136 42 107/68 100 Mechanical Ventilator 40 10/09/18 12:00 Mechanical Ventilator Mechanical Ventilator 10/09/18 12:00 130 10/09/18 12:00 40 10/09/18 12:00 98.2 136 42 108/66 100 Mechanical Ventilator 40 10/09/18 11:30 139 43 111/69 100 Mechanical Ventilator 40 10/09/18 11:00 136 41 105/68 100 Mechanical Ventilator 40 10/09/18 10:40 139 42 40 40 10/09/18 10:30 130 38 110/69 100 Mechanical Ventilator 40 10/09/18 10:00 132 39 101/67 100 Mechanical Ventilator 40 10/09/18 09:30 137 41 101/71 100 Mechanical Ventilator 40 10/09/18 09:00 137 41 114/70 100 Mechanical Ventilator 40 10/09/18 09:00 114/70 10/09/18 08:58 140 43 40 40 10/09/18 08:30 135 39 121/78 100 Mechanical Ventilator 40 10/09/18 08:00 137 10/09/18 08:00 Mechanical Ventilator Mechanical Ventilator 10/09/18 08:00 40 10/09/18 08:00 98.2 133 39 112/72 100 Mechanical Ventilator 40 10/09/18 08:00 112/72 10/09/18 07:30 135 37 113/73 100 Mechanical Ventilator 40 10/09/18 07:29 134 40 40 40 10/09/18 07:00 131 39 124/71 100 Mechanical Ventilator 40 10/09/18 07:00 124/71 10/09/18 06:15 132 34 109/65 100 Mechanical Ventilator 40 10/09/18 06:00 130 39 112/68 100 Mechanical Ventilator 40 10/09/18 06:00 112/68 10/09/18 05:45 131 40 93/61 100 Mechanical Ventilator 40 10/09/18 05:38 81/46 10/09/18 05:30 0 68/45 100 Mechanical Ventilator 40 10/09/18 05:15 140 45 86/49 75 Mechanical Ventilator 40 10/09/18 05:03 130 38 40 40 10/09/18 05:00 131 35 112/65 97 Mechanical Ventilator 40 10/09/18 05:00 112/65 10/09/18 04:45 135 42 108/70 100 Mechanical Ventilator 40 10/09/18 04:30 142 34 83/51 100 Mechanical Ventilator 40 10/09/18 04:20 40 10/09/18 04:15 98.9 144 41 86/58 100 Mechanical Ventilator 40 10/09/18 04:00 140 10/09/18 04:00 Mechanical Ventilator Mechanical Ventilator 10/09/18 04:00 88/51 10/09/18 04:00 144 44 94/63 100 Mechanical Ventilator 40 10/09/18 03:45 136 40 105/71 83 Mechanical Ventilator 40 10/09/18 03:30 140 45 103/60 93 Mechanical Ventilator 40 10/09/18 03:15 139 45 100/68 92 Mechanical Ventilator 40 10/09/18 03:09 139 41 40 40 10/09/18 03:00 142 46 103/65 93 Mechanical Ventilator 40 10/09/18 03:00 103/65 10/09/18 02:45 139 40 93/63 100 Mechanical Ventilator 40 10/09/18 02:30 143 43 93/63 100 Mechanical Ventilator 40 10/09/18 02:15 137 37 100/68 100 Mechanical Ventilator 40 10/09/18 02:00 97/67 10/09/18 02:00 139 38 97/67 100 Mechanical Ventilator 40 10/09/18 01:45 138 39 95/68 100 Mechanical Ventilator 40 10/09/18 01:30 134 36 110/70 90 Mechanical Ventilator 40 10/09/18 01:15 137 38 102/68 100 Mechanical Ventilator 40 10/09/18 01:07 134 37 40 40 10/09/18 01:00 103/69 10/09/18 01:00 134 35 103/69 100 Mechanical Ventilator 40 10/09/18 00:45 134 35 101/69 98 Mechanical Ventilator 40 10/09/18 00:30 136 34 120/68 100 Mechanical Ventilator 40 10/09/18 00:15 135 36 111/76 100 Mechanical Ventilator 40 10/09/18 00:00 132 33 108/69 100 10/09/18 00:00 133 10/09/18 00:00 Mechanical Ventilator Mechanical Ventilator 10/09/18 00:00 98.9 132 33 108/69 100 Mechanical Ventilator 40 10/09/18 00:00 98/73 10/09/18 00:00 40 10/08/18 23:45 133 35 104/64 100 Mechanical Ventilator 40 10/08/18 23:30 133 33 98/73 100 Mechanical Ventilator 40 10/08/18 23:15 134 34 104/67 100 Mechanical Ventilator 40 10/08/18 23:00 133 36 104/63 93 Mechanical Ventilator 40 10/08/18 23:00 104/63 10/08/18 22:45 132 35 105/70 93 Mechanical Ventilator 40 10/08/18 22:33 130 41 40 40 10/08/18 22:30 132 39 147/84 98 Mechanical Ventilator 40 10/08/18 22:15 132 36 115/77 100 Mechanical Ventilator 40 10/08/18 22:00 132 36 Mechanical Ventilator 40 10/08/18 22:00 132 36 122/76 100 Mechanical Ventilator 40 10/08/18 22:00 122/76 10/08/18 21:45 132 34 114/71 99 Mechanical Ventilator 40 10/08/18 21:30 131 31 112/72 100 Mechanical Ventilator 40 10/08/18 21:17 132 37 40 40 10/08/18 21:15 132 37 104/75 100 Mechanical Ventilator 40 10/08/18 21:00 113/72 10/08/18 21:00 132 31 106/68 100 Mechanical Ventilator 40 10/08/18 20:45 133 36 110/65 100 Mechanical Ventilator 40 10/08/18 20:30 133 41 105/61 100 Mechanical Ventilator 40 10/08/18 20:16 74/44 10/08/18 20:15 134 40 97/63 100 Mechanical Ventilator 40 10/08/18 20:00 40 10/08/18 20:00 Mechanical Ventilator Mechanical Ventilator 10/08/18 20:00 99.5 136 43 113/66 99 Mechanical Ventilator 40 10/08/18 20:00 133 10/08/18 19:45 132 44 118/62 100 Mechanical Ventilator 40 10/08/18 19:30 132 37 87/60 100 Mechanical Ventilator 40 10/08/18 19:26 134 45 40 40 10/08/18 19:15 135 33 85/52 100 Mechanical Ventilator 40 10/08/18 19:00 133 36 80/53 100 Mechanical Ventilator 40 10/08/18 18:30 134 38 85/54 100 Mechanical Ventilator 40 10/08/18 18:00 132 33 74/50 100 Mechanical Ventilator 40 10/08/18 17:30 137 35 66/40 100 Mechanical Ventilator 40 10/08/18 17:00 109/61 10/08/18 17:00 138 28 109/61 100 Mechanical Ventilator 40 10/08/18 16:38 135 31 40 10/08/18 16:30 124 32 69/38 100 Mechanical Ventilator 40 10/08/18 16:00 99.8 136 33 83/46 100 Mechanical Ventilator 40 10/08/18 16:00 132 10/08/18 16:00 83/46 10/08/18 16:00 Mechanical Ventilator Mechanical Ventilator 10/08/18 16:00 40 10/08/18 15:30 133 28 78/51 99 Mechanical Ventilator 40 10/08/18 15:02 135 32 40 10/08/18 15:00 136 39 93/60 100 Mechanical Ventilator 40 10/08/18 15:00 93/60 10/08/18 14:30 130 30 81/52 100 Mechanical Ventilator 40 10/08/18 14:00 78/44 10/08/18 14:00 124 27 78/44 100 Mechanical Ventilator 40 Intake and Output 10/08/18 10/09/18 19:00 07:00 Intake Total 1890.00 ml 2243.75 ml Output Total 170 ml 395 ml Balance 1720.00 ml 1848.75 ml Intake Oral 0 ml IV Total 1720.00 ml 1773.75 ml Blood Product 150 ml 450 ml Other 20 ml 20 ml Output Urine Total 20 ml 25 ml Stool Total 0 ml 50 ml Drainage Total 150 ml 320 ml Laboratory Tests 10/09/18 05:30: White Blood Count 47.6*H, Red Blood Count 2.38L, Hemoglobin 7.5L, Hematocrit 21.8L, Mean Corpuscular Volume 91, Mean Corpuscular Hemoglobin 31.7H, Mean Corpuscular Hemoglobin Concent 34.7, Red Cell Distribution Width 13.6, Platelet Count 164, Mean Platelet Volume 8.0, Neutrophils (%) (Auto) , Lymphocytes (%) ( Auto) , Monocytes (%) (Auto) , Eosinophils (%) (Auto) , Basophils (%) (Auto) , Differential Total Cells Counted 100, Neutrophils % (Manual) 85H, Lymphocytes % (Manual) 4L, Monocytes % (Manual) 3, Eosinophils % (Manual) 1, Basophils % ( Manual) 0, Myelocytes % 1H, Band Neutrophils 6, Nucleated Red Blood Cells 2, Platelet Estimate Adequate, Platelet Morphology , Giant Platelets Occasional, Polychromasia 1+, Hypochromasia 1+, Urine Color Pale yellow, Urine Appearance Clear, Urine pH 5, Urine Specific [place] 1.005, Urine Protein 3+H, Urine Glucose (UA) Negative, Urine Ketones Negative, Urine Blood 5+H, Urine Nitrite Negative, Urine Bilirubin Negative, Urine Urobilinogen Normal, Urine Leukocyte Esterase 3+H, Urine RBC 10-15H, Urine WBC 5-10H, Urine Squamous Epithelial Cells Occasional, Urine Bacteria Few, Sodium Level 136, Potassium Level 5.2H, Chloride Level 102, Carbon Dioxide Level 11L, Anion Gap 23H, Blood Urea Nitrogen 36H, Creatinine 3.9#H, Estimat Glomerular Filtration Rate 15.8, Glucose Level 221H, Lactic Acid Level 11.80H, Uric Acid 7.2, Calcium Level 6.6L , Phosphorus Level 8.9H, Magnesium Level 2.3, Total Bilirubin 1.7H, Direct Bilirubin 1.1H, Gamma Glutamyl Transpeptidase 87H, Aspartate Amino Transf (AST/ SGOT) 5419H, Alanine Aminotransferase (ALT/SGPT) 1930H, Alkaline Phosphatase 171H, Total Creatine Kinase 782H, Troponin I 1.260H, Pro-B-Type Natriuretic Peptide 29893L, Total Protein 4.3L, Albumin 0.8L, Globulin 3.5, Albumin/ Globulin Ratio 0.2L, Cortisol AM Sample [Pending] 10/09/18 09:10: Lactic Acid Level 10.00H 10/09/18 09:33: Arterial Blood pH 7.421, Arterial Blood Partial Pressure CO2 12.2*L, Arterial Blood Partial Pressure O2 105.9H, Arterial Blood HCO3 7.8*L, Arterial Blood Oxygen Saturation 96.9, Arterial Blood Base Excess -14.7*L, Harvey Test Positive Height (Feet): 5 Height (Inches): 5.00 Weight (Pounds): 159 General Appearance: lethargic EENT: normal ENT inspection Neck: non-tender Cardiovascular: normal peripheral pulses, normal rate, regular rhythm Respiratory/Chest: chest wall non-tender, decreased breath sounds Abdomen: soft, hypoactive bowel sounds Extremities: normal inspection Edema: no edema noted Arm (L), no edema noted Arm (R), no edema noted Leg (L), no edema noted Leg (R), no edema noted Pedal (L), no edema noted Pedal (R), no edema noted Generalized Neurologic: motor weakness Skin: normal pigmentation, warm/dry Jasmeet Reynoso DO Oct 09, 2018 13:31
--- NOTE | 2018-10-09 15:49 | Cardiac Electrophysiology PN ---
Assessment/Plan Assessment/Plan 1. Septic and hemorrhagic shock with Lactic acidosis and WBC still aound 48K On Abx and maxed out on Levophed S/P PRBC 2. Sinus tachycardia due to sepsis, anemia and dehydration. No fibrillation. EF 75%. Repeat ECG showed sinus tach 150 HR 120s today 3. Troponin elevation due to renal failure. EF 75%. 4. VDRF. S/P Tracheostomy 09/22/18 5. Rhabdomyolysis with CPK in thousands contributing to renal failure. 6. Acute renal failure and severe hyperkalemia. FU by Dr. Smalls 7. Dysphagia, Hx of PEG placement but was dislodged. S/P exploratory laparotomy, repair of gastric perforation, evacuation of perisplenic abscess, splenectomy 09/23/18 NPO On TPN. Both drains still draining. Left one Bloody. Right one serous FU Dr Contreras. 8. GI bleed. S/P EGD by Dr. Horton. S/p PRBCs DW RN in ICU Subjective Subjective On the Vent via tracheostomy. On TPN and Lipid in ICU on Max Levophed Objective Last 24 Hour Vital Signs Date Time Temp Pulse Resp B/P (MAP) Pulse Ox O2 Delivery O2 Flow Rate FiO2 10/09/18 14:36 130 33 40 40 10/09/18 14:00 127 34 109/78 100 Mechanical Ventilator 40 10/09/18 13:30 137 31 100/66 99 Mechanical Ventilator 40 10/09/18 13:29 133 26 40 40 10/09/18 13:00 135 41 105/69 100 Mechanical Ventilator 40 10/09/18 12:30 136 42 107/68 100 Mechanical Ventilator 40 10/09/18 12:00 Mechanical Ventilator Mechanical Ventilator 10/09/18 12:00 130 10/09/18 12:00 40 10/09/18 12:00 98.2 136 42 108/66 100 Mechanical Ventilator 40 10/09/18 11:30 139 43 111/69 100 Mechanical Ventilator 40 10/09/18 11:00 136 41 105/68 100 Mechanical Ventilator 40 10/09/18 10:40 139 42 40 40 10/09/18 10:30 130 38 110/69 100 Mechanical Ventilator 40 10/09/18 10:00 132 39 101/67 100 Mechanical Ventilator 40 10/09/18 09:30 137 41 101/71 100 Mechanical Ventilator 40 10/09/18 09:00 137 41 114/70 100 Mechanical Ventilator 40 10/09/18 09:00 114/70 10/09/18 08:58 140 43 40 40 10/09/18 08:30 135 39 121/78 100 Mechanical Ventilator 40 10/09/18 08:00 137 10/09/18 08:00 Mechanical Ventilator Mechanical Ventilator 10/09/18 08:00 40 10/09/18 08:00 98.2 133 39 112/72 100 Mechanical Ventilator 40 10/09/18 08:00 112/72 10/09/18 07:30 135 37 113/73 100 Mechanical Ventilator 40 10/09/18 07:29 134 40 40 40 10/09/18 07:00 131 39 124/71 100 Mechanical Ventilator 40 10/09/18 07:00 124/71 10/09/18 06:15 132 34 109/65 100 Mechanical Ventilator 40 10/09/18 06:00 130 39 112/68 100 Mechanical Ventilator 40 10/09/18 06:00 112/68 10/09/18 05:45 131 40 93/61 100 Mechanical Ventilator 40 10/09/18 05:38 81/46 10/09/18 05:30 0 68/45 100 Mechanical Ventilator 40 10/09/18 05:15 140 45 86/49 75 Mechanical Ventilator 40 10/09/18 05:03 130 38 40 40 10/09/18 05:00 131 35 112/65 97 Mechanical Ventilator 40 10/09/18 05:00 112/65 10/09/18 04:45 135 42 108/70 100 Mechanical Ventilator 40 10/09/18 04:30 142 34 83/51 100 Mechanical Ventilator 40 10/09/18 04:20 40 10/09/18 04:15 98.9 144 41 86/58 100 Mechanical Ventilator 40 10/09/18 04:00 140 10/09/18 04:00 Mechanical Ventilator Mechanical Ventilator 10/09/18 04:00 88/51 10/09/18 04:00 144 44 94/63 100 Mechanical Ventilator 40 10/09/18 03:45 136 40 105/71 83 Mechanical Ventilator 40 10/09/18 03:30 140 45 103/60 93 Mechanical Ventilator 40 10/09/18 03:15 139 45 100/68 92 Mechanical Ventilator 40 10/09/18 03:09 139 41 40 40 10/09/18 03:00 142 46 103/65 93 Mechanical Ventilator 40 10/09/18 03:00 103/65 10/09/18 02:45 139 40 93/63 100 Mechanical Ventilator 40 10/09/18 02:30 143 43 93/63 100 Mechanical Ventilator 40 10/09/18 02:15 137 37 100/68 100 Mechanical Ventilator 40 10/09/18 02:00 97/67 10/09/18 02:00 139 38 97/67 100 Mechanical Ventilator 40 10/09/18 01:45 138 39 95/68 100 Mechanical Ventilator 40 10/09/18 01:30 134 36 110/70 90 Mechanical Ventilator 40 10/09/18 01:15 137 38 102/68 100 Mechanical Ventilator 40 10/09/18 01:07 134 37 40 40 10/09/18 01:00 103/69 10/09/18 01:00 134 35 103/69 100 Mechanical Ventilator 40 10/09/18 00:45 134 35 101/69 98 Mechanical Ventilator 40 10/09/18 00:30 136 34 120/68 100 Mechanical Ventilator 40 10/09/18 00:15 135 36 111/76 100 Mechanical Ventilator 40 10/09/18 00:00 132 33 108/69 100 10/09/18 00:00 133 10/09/18 00:00 Mechanical Ventilator Mechanical Ventilator 10/09/18 00:00 98.9 132 33 108/69 100 Mechanical Ventilator 40 10/09/18 00:00 98/73 10/09/18 00:00 40 10/08/18 23:45 133 35 104/64 100 Mechanical Ventilator 40 10/08/18 23:30 133 33 98/73 100 Mechanical Ventilator 40 10/08/18 23:15 134 34 104/67 100 Mechanical Ventilator 40 10/08/18 23:00 133 36 104/63 93 Mechanical Ventilator 40 10/08/18 23:00 104/63 10/08/18 22:45 132 35 105/70 93 Mechanical Ventilator 40 10/08/18 22:33 130 41 40 40 10/08/18 22:30 132 39 147/84 98 Mechanical Ventilator 40 10/08/18 22:15 132 36 115/77 100 Mechanical Ventilator 40 10/08/18 22:00 132 36 Mechanical Ventilator 40 10/08/18 22:00 132 36 122/76 100 Mechanical Ventilator 40 10/08/18 22:00 122/76 2/28/19 21:45 132 34 114/71 99 Mechanical Ventilator 40 10/08/18 21:30 131 31 112/72 100 Mechanical Ventilator 40 10/08/18 21:17 132 37 40 40 10/08/18 21:15 132 37 104/75 100 Mechanical Ventilator 40 10/08/18 21:00 113/72 10/08/18 21:00 132 31 106/68 100 Mechanical Ventilator 40 10/08/18 20:45 133 36 110/65 100 Mechanical Ventilator 40 10/08/18 20:30 133 41 105/61 100 Mechanical Ventilator 40 10/08/18 20:16 74/44 10/08/18 20:15 134 40 97/63 100 Mechanical Ventilator 40 10/08/18 20:00 40 10/08/18 20:00 Mechanical Ventilator Mechanical Ventilator 10/08/18 20:00 99.5 136 43 113/66 99 Mechanical Ventilator 40 10/08/18 20:00 133 10/08/18 19:45 132 44 118/62 100 Mechanical Ventilator 40 10/08/18 19:30 132 37 87/60 100 Mechanical Ventilator 40 10/08/18 19:26 134 45 40 40 10/08/18 19:15 135 33 85/52 100 Mechanical Ventilator 40 10/08/18 19:00 133 36 80/53 100 Mechanical Ventilator 40 10/08/18 18:30 134 38 85/54 100 Mechanical Ventilator 40 10/08/18 18:00 132 33 74/50 100 Mechanical Ventilator 40 10/08/18 17:30 137 35 66/40 100 Mechanical Ventilator 40 10/08/18 17:00 109/61 10/08/18 17:00 138 28 109/61 100 Mechanical Ventilator 40 10/08/18 16:38 135 31 40 10/08/18 16:30 124 32 69/38 100 Mechanical Ventilator 40 10/08/18 16:00 99.8 136 33 83/46 100 Mechanical Ventilator 40 10/08/18 16:00 132 10/08/18 16:00 83/46 10/08/18 16:00 Mechanical Ventilator Mechanical Ventilator 10/08/18 16:00 40 Intake and Output 10/08/18 10/09/18 19:00 07:00 Intake Total 1890.00 ml 2243.75 ml Output Total 170 ml 395 ml Balance 1720.00 ml 1848.75 ml Intake Oral 0 ml IV Total 1720.00 ml 1773.75 ml Blood Product 150 ml 450 ml Other 20 ml 20 ml Output Urine Total 20 ml 25 ml Stool Total 0 ml 50 ml Drainage Total 150 ml 320 ml Laboratory Tests Test 10/09/18 05:30 10/09/18 09:10 10/09/18 09:33 White Blood Count 47.6 K/UL (4.8-10.8) *H Red Blood Count 2.38 M/UL (4.70-6.10) L Hemoglobin 7.5 G/DL (14.2-18.0) L Hematocrit 21.8 % (42.0-52.0) L Mean Corpuscular Volume 91 FL (80-99) Mean Corpuscular Hemoglobin 31.7 PG (27.0-31.0) H Mean Corpuscular Hemoglobin Concent 34.7 G/DL (32.0-36.0) Red Cell Distribution Width 13.6 % (11.6-14.8) Platelet Count 164 K/UL (150-450) Mean Platelet Volume 8.0 FL (6.5-10.1) Neutrophils (%) (Auto) % (45.0-75.0) Lymphocytes (%) (Auto) % (20.0-45.0) Monocytes (%) (Auto) % (1.0-10.0) Eosinophils (%) (Auto) % (0.0-3.0) Basophils (%) (Auto) % (0.0-2.0) Differential Total Cells Counted 100 Neutrophils % (Manual) 85 % (45-75) H Lymphocytes % (Manual) 4 % (20-45) L Monocytes % (Manual) 3 % (1-10) Eosinophils % (Manual) 1 % (0-3) Basophils % (Manual) 0 % (0-2) Myelocytes % 1 % (0-0) H Band Neutrophils 6 % (0-8) Nucleated Red Blood Cells 2 /100 WBC Platelet Estimate Adequate Platelet Morphology Giant Platelets Occasional Polychromasia 1+ Hypochromasia 1+ Urine Color Pale yellow Urine Appearance Clear Urine pH 5 (4.5-8.0) Urine Specific [place] 1.005 (1.005-1.035) Urine Protein 3+ (NEGATIVE) H Urine Glucose (UA) Negative (NEGATIVE) Urine Ketones Negative (NEGATIVE) Urine Blood 5+ (NEGATIVE) H Urine Nitrite Negative (NEGATIVE) Urine Bilirubin Negative (NEGATIVE) Urine Urobilinogen Normal MG/DL (0.0-1.0) Urine Leukocyte Esterase 3+ (NEGATIVE) H Urine RBC 10-15 /HPF (0 - 0) H Urine WBC 5-10 /HPF (0 - 0) H Urine Squamous Epithelial Cells Occasional /LPF Urine Bacteria Few /HPF (NONE) Sodium Level 136 MMOL/L (136-145) Potassium Level 5.2 MMOL/L (3.5-5.1) H Chloride Level 102 MMOL/L (98-107) Carbon Dioxide Level 11 MMOL/L (21-32) L Anion Gap 23 mmol/L (5-15) H Blood Urea Nitrogen 36 mg/dL (7-18) H Creatinine 3.9 MG/DL (0.55-1.30) #H Estimat Glomerular Filtration Rate 15.8 mL/min (>60) Glucose Level 221 MG/DL (74-106) H Lactic Acid Level 11.80 mmol/L (0.4-2.0) H 10.00 mmol/L (0.66-2.22) H Uric Acid 7.2 MG/DL (2.6-7.2) Calcium Level 6.6 MG/DL (8.5-10.1) L Phosphorus Level 8.9 MG/DL (2.5-4.9) H Magnesium Level 2.3 MG/DL (1.8-2.4) Total Bilirubin 1.7 MG/DL (0.2-1.0) H Direct Bilirubin 1.1 MG/DL (0.0-0.3) H Gamma Glutamyl Transpeptidase 87 U/L (5-85) H Aspartate Amino Transf (AST/SGOT) 5419 U/L (15-37) H Alanine Aminotransferase (ALT/SGPT) 1930 U/L (12-78) H Alkaline Phosphatase 171 U/L (46-116) H Total Creatine Kinase 782 U/L (26-308) H Troponin I 1.260 ng/mL (0.000-0.056) Pro-B-Type Natriuretic Peptide 32161 pg/mL (0-125) H Total Protein 4.3 G/DL (6.4-8.2) L Albumin 0.8 G/DL (3.4-5.0) L Globulin 3.5 g/dL Albumin/Globulin Ratio 0.2 (1.0-2.7) L Cortisol AM Sample Pending Arterial Blood pH 7.421 (7.350-7.450) Arterial Blood Partial Pressure CO2 12.2 mmHg (35.0-45.0) *L Arterial Blood Partial Pressure O2 105.9 mmHg (75.0-100.0) H Arterial Blood HCO3 7.8 mmol/L (22.0-26.0) *L Arterial Blood Oxygen Saturation 96.9 % (95-100) Arterial Blood Base Excess -14.7 (-2-2) *L Harvey Test Positive Microbiology Date/Time Source Procedure Growth Status 10/08/18 05:15 Blood Blood Culture - Preliminary NO GROWTH AFTER 24 HOURS Resulted 10/08/18 05:10 Blood Blood Culture - Preliminary NO GROWTH AFTER 24 HOURS Resulted Objective HEENT: S/P tracheostomy. LUNGS: Coarse rhonchi. CARDIOVASCULAR: Regular S1 and S2. ABDOMEN: Incision slightly oozing and has 2 drains EXTREMITIES: No pitting edema. Jasbir Madsen MD Oct 09, 2018 15:49
[2018-10-09] MEDS ORDERED: NS 275ml ONE ×3 (16:40→17:06)
[2018-10-09] MEDS ORDERED: D5NS 1000ml IV ONE (16:43)
[2018-10-09] MEDS ORDERED: Tubing IV Secondary IV ONE ×2 (16:43→17:06)
[2018-10-09] MEDS ORDERED: Sterile Water Irrig 1000ml IRRIG ONE (16:43)
[2018-10-09] MEDS ORDERED: Tubing Blood Filter IV ONE ×2 (16:43→17:07)
[2018-10-09] MEDS ORDERED: NS Irrig 1000ml ONE (17:06)
[2018-10-09] MEDS ORDERED: D5W 275ml ONE (17:07)
--- NOTE | 2018-10-09 18:30 | Progress Note ---
DATE: 10/09/2018 SUBJECTIVE: This is a 62-year-old male patient with a history of septic shock and he has confusion, disorganized thought process, and anemia, which has worsened his cognition. He has altered mental status and confusion, that is why his attending has requested daily psychiatric consultation. MENTAL STATUS EXAMINATION: This is a 62-year-old male. Appearance is disheveled. Attitude, irritable and agitated. Affect, guarded and restricted. Intellect poor. Mood, depressed and anxious. Motor activity, psychomotor agitation. Attention span is poor. Orientation x2. Speech is low volume and slurred. Thought process, disorganized and illogical. Insight and judgment is poor. DIAGNOSIS: Paranoid schizophrenia with acute exacerbation. PLAN: My plan is to titrate up on the patient's medication regimen consisting Risperdal 0.25 mg daily. Provide him with 20 minutes of reality-based supportive psychotherapy for management and I spoke to staff. Chart reviewed. Discussed with staff. Seen and assessed at bedside ICU stepdown. Virgie Mcdermott M.D. DR: ESCOBAR JOB#: [id number] CC:
[2018-10-09] MEDS: DAPTOmycin 450 MG in NS 55 ML IV SCH (18:53)
[2018-10-09] MEDS: Micafungin 100 MG in NS 110 ML IVPB SCH (18:53)
[2018-10-09] MEDS: Dyna-Hex 2% Top Sol 2oz TOPIC SCH (20:00)
[2018-10-10] VITALS (61 sets, daily range): BP systolic 73–141; BP diastolic 43–92
[2018-10-10] MEDS: Norepinephrine Bitartrate 16 MG in D5W 500ml 484 ML IV SCH ×2 (02:00→17:55)
[2018-10-10] MEDS: Meropenem 1 GM in NS 55 ML IVPB SCH ×2 (04:00→16:14)
[2018-10-10 07:38] LABS: HEMATOCRIT 13.9 % (42.0-52.0); MEAN CORPUSCULAR VOLUME 89 FL (80-99); PLATELET COUNT 142 K/UL (150-450); RED BLOOD COUNT 1.56 M/UL (4.70-6.10); RED CELL DISTRIBUTION WIDTH 13.3 % (11.6-14.8)
[2018-10-10 07:51] LABS: HEMOGLOBIN 4.8 G/DL (14.2-18.0); WHITE BLOOD COUNT 40.9 K/UL (4.8-10.8)
[2018-10-10 08:02] LABS: ALANINE AMINOTRANSFERASE 962 U/L (12-78); ALBUMIN 0.8 G/DL (3.4-5.0); ALBUMIN/GLOBULIN RATIO 0.2 (1.0-2.7); ALKALINE PHOSPHATASE 185 U/L (46-116); ANION GAP 23 mmol/L (5-15); ASPARTATE AMINO TRANSFERASE 1308 U/L (15-37); BILIRUBIN,TOTAL 2.6 MG/DL (0.2-1.0); BLOOD UREA NITROGEN 53 mg/dL (7-18); CARBON DIOXIDE 13 MMOL/L (21-32); CHLORIDE 97 MMOL/L (98-107); CREATININE 4.7 MG/DL (0.55-1.30); GAMMA GLUTAMYL TRANSPEPTIDASE 109 U/L (5-85); PHOSPHORUS 9.2 MG/DL (2.5-4.9); POTASSIUM 4.8 MMOL/L (3.5-5.1); SODIUM 133 MMOL/L (136-145)
[2018-10-10 08:18] LABS: CALCIUM 5.8 MG/DL (8.5-10.1)
--- NOTE | 2018-10-10 08:27 | General Progress Note ---
Assessment/Plan Problem List: (1) Decubitus skin ulcer ICD Codes: L89.90 - Pressure ulcer of unspecified site, unspecified stage SNOMED: 753364295 (2) Anemia ICD Codes: D64.9 - Anemia, unspecified SNOMED: 018689822 (3) Acute respiratory failure ICD Codes: J96.00 - Acute respiratory failure, unspecified whether with hypoxia or hypercapnia SNOMED: 97192655 (4) Pneumonia ICD Codes: J18.9 - Pneumonia, unspecified organism SNOMED: 314515170 Assessment/Plan REOPERATIVE DIAGNOSES: 1. Malpositioned feeding tube with leak and peritonitis/perforation. 2. Respiratory insufficiency requiring prolonged ventilatory support. POSTOPERATIVE DIAGNOSES: 1. Large omental perigastric hematoma. 2. Malpositioned PEG tube with gastric perforation. 3. Large perisplenic abscess. 4. Abdominal peritonitis. 5. Respiratory insufficiency requiring prolonged ventilatory support. OPERATION PERFORMED: 1. Exploratory laparotomy. 2. Repair of gastric perforation. 3. Evacuation of abdominal omental / lesser sac hematoma. 4. Evacuation of perisplenic hematoma/abscess. 5. Omentectomy. 6. Splenectomy. 7. Abdominal washout. 8. Tracheostomy. RECOMMENDATIONS: fu surgical recommendations prn transfusion ppi off TPN now poor prognosis fu labs Subjective ROS Limited/Unobtainable: No Allergies: Coded Allergies: No Known Allergies (Unverified , 08/14/18) Objective Last 24 Hour Vital Signs Date Time Temp Pulse Resp B/P (MAP) Pulse Ox O2 Delivery O2 Flow Rate FiO2 10/10/18 07:00 116 32 82/50 99 Mechanical Ventilator 40 10/10/18 06:57 117 36 40 40 10/10/18 06:30 113 30 100/55 100 Mechanical Ventilator 40 10/10/18 06:00 119 35 88/50 100 Mechanical Ventilator 40 10/10/18 05:30 113 30 98/51 100 Mechanical Ventilator 40 10/10/18 05:10 110 35 40 40 10/10/18 05:00 111 30 96/54 100 Mechanical Ventilator 40 10/10/18 04:30 123 20 100/56 100 Mechanical Ventilator 40 10/10/18 04:00 136 10/10/18 04:00 Mechanical Ventilator Mechanical Ventilator 10/10/18 04:00 40 10/10/18 04:00 99.2 124 38 97/55 100 Mechanical Ventilator 40 10/10/18 03:30 118 31 94/62 100 Mechanical Ventilator 40 10/10/18 03:00 126 37 98/57 100 Mechanical Ventilator 40 10/10/18 02:30 131 41 90/51 100 Mechanical Ventilator 40 10/10/18 02:15 120 35 101/60 100 Mechanical Ventilator 40 10/10/18 02:00 125 37 98/58 100 Mechanical Ventilator 40 10/10/18 02:00 97/55 10/10/18 01:30 133 44 93/50 100 Mechanical Ventilator 40 10/10/18 01:03 122 38 40 40 10/10/18 01:00 121 36 103/63 100 Mechanical Ventilator 40 10/10/18 00:30 128 40 99/58 100 Mechanical Ventilator 40 10/10/18 00:00 127 10/10/18 00:00 Mechanical Ventilator Mechanical Ventilator 10/10/18 00:00 99.4 127 39 98/61 100 Mechanical Ventilator 40 10/10/18 00:00 40 10/09/18 23:30 129 44 100/62 100 Mechanical Ventilator 40 10/09/18 23:05 124 39 40 40 10/09/18 23:00 125 39 106/63 100 Mechanical Ventilator 40 10/09/18 22:30 124 37 105/57 100 Mechanical Ventilator 40 10/09/18 22:00 131 44 96/61 100 Mechanical Ventilator 40 10/09/18 21:30 124 43 95/56 100 Mechanical Ventilator 40 10/09/18 21:12 130 45 40 40 10/09/18 21:00 130 45 99/52 100 Mechanical Ventilator 40 10/09/18 20:30 129 42 91/58 100 Mechanical Ventilator 40 10/09/18 20:00 Mechanical Ventilator Mechanical Ventilator 10/09/18 20:00 98.8 132 44 90/53 100 Mechanical Ventilator 40 10/09/18 20:00 133 10/09/18 20:00 40 10/09/18 19:37 128 42 40 40 10/09/18 19:30 125 41 104/62 100 Mechanical Ventilator 40 10/09/18 19:00 129 43 99/68 100 Mechanical Ventilator 40 10/09/18 18:30 133 40 104/69 100 Mechanical Ventilator 40 10/09/18 18:00 132 40 98/70 100 Mechanical Ventilator 40 10/09/18 17:30 132 34 109/71 100 Mechanical Ventilator 40 10/09/18 17:29 128 30 40 40 10/09/18 17:00 128 30 114/75 100 Mechanical Ventilator 40 10/09/18 16:30 133 39 110/77 100 Mechanical Ventilator 40 10/09/18 16:07 88/51 10/09/18 16:00 40 10/09/18 16:00 Mechanical Ventilator Mechanical Ventilator 10/09/18 16:00 98.2 136 39 118/71 100 Mechanical Ventilator 40 10/09/18 16:00 128 10/09/18 15:30 136 38 111/74 100 Mechanical Ventilator 40 10/09/18 15:00 130 35 121/78 100 Mechanical Ventilator 40 10/09/18 14:36 130 33 40 40 10/09/18 14:30 137 38 108/77 99 Mechanical Ventilator 40 10/09/18 14:00 127 34 109/78 100 Mechanical Ventilator 40 10/09/18 13:30 137 31 100/66 99 Mechanical Ventilator 40 10/09/18 13:29 133 26 40 40 10/09/18 13:00 135 41 105/69 100 Mechanical Ventilator 40 10/09/18 12:30 136 42 107/68 100 Mechanical Ventilator 40 10/09/18 12:00 Mechanical Ventilator Mechanical Ventilator 10/09/18 12:00 130 10/09/18 12:00 40 10/09/18 12:00 98.2 136 42 108/66 100 Mechanical Ventilator 40 10/09/18 11:30 139 43 111/69 100 Mechanical Ventilator 40 10/09/18 11:00 136 41 105/68 100 Mechanical Ventilator 40 10/09/18 10:40 139 42 40 40 10/09/18 10:30 130 38 110/69 100 Mechanical Ventilator 40 10/09/18 10:00 132 39 101/67 100 Mechanical Ventilator 40 10/09/18 09:30 137 41 101/71 100 Mechanical Ventilator 40 10/09/18 09:00 137 41 114/70 100 Mechanical Ventilator 40 10/09/18 09:00 114/70 10/09/18 08:58 140 43 40 40 10/09/18 08:30 135 39 121/78 100 Mechanical Ventilator 40 Intake and Output 10/09/18 10/10/18 18:59 06:59 Intake Total 1973.75 ml 1948.72 ml Output Total 150 ml 525 ml Balance 1823.75 ml 1423.72 ml IV Total 1923.75 ml 1948.72 ml Other 50 ml Output Urine Total 0 ml 0 ml Stool Total 0 ml 450 ml Drainage Total 150 ml 75 ml Laboratory Tests 10/09/18 09:10: Lactic Acid Level 10.00H 10/09/18 09:33: Arterial Blood pH 7.421, Arterial Blood Partial Pressure CO2 12.2*L, Arterial Blood Partial Pressure O2 105.9H, Arterial Blood HCO3 7.8*L, Arterial Blood Oxygen Saturation 96.9, Arterial Blood Base Excess -14.7*L, Harvey Test Positive 10/10/18 07:00: Lactic Acid Level 10.20H, White Blood Count 40.9*H, Red Blood Count 1.56L, Hemoglobin 4.8#*L, Hematocrit 13.9#L, Mean Corpuscular Volume 89, Mean Corpuscular Hemoglobin 30.6, Mean Corpuscular Hemoglobin Concent 34.4, Red Cell Distribution Width 13.3, Platelet Count 142L, Mean Platelet Volume 10.2H, Neutrophils (%) (Auto) , Lymphocytes (%) (Auto) , Monocytes (%) (Auto) , Eosinophils (%) (Auto) , Basophils (%) (Auto) , Neutrophils % (Manual) [Pending] , Lymphocytes % (Manual) [Pending], Platelet Estimate [Pending], Platelet Morphology [Pending], Sodium Level 133L, Potassium Level 4.8, Chloride Level 97L , Carbon Dioxide Level 13L, Anion Gap 23H, Blood Urea Nitrogen 53H, Creatinine 4.7H, Estimat Glomerular Filtration Rate 12.8, Glucose Level 250H, Uric Acid 8.7H, Calcium Level 5.8*L, Phosphorus Level 9.2H, Magnesium Level 1.9, Total Bilirubin 2.6H, Direct Bilirubin [Pending], Gamma Glutamyl Transpeptidase 109H, Aspartate Amino Transf (AST/SGOT) 1308H, Alanine Aminotransferase (ALT/SGPT) 962H, Alkaline Phosphatase 185H, C-Reactive Protein, Quantitative 19.2H, Pro-B- Type Natriuretic Peptide 7597H, Total Protein 4.3L, Albumin 0.8L, Globulin 3.5, Albumin/Globulin Ratio 0.2L 10/10/18 08:13: Arterial Blood pH 7.535H, Arterial Blood Partial Pressure CO2 14.3*L, Arterial Blood Partial Pressure O2 140.7H, Arterial Blood HCO3 11.8*L, Arterial Blood Oxygen Saturation 97.7, Arterial Blood Base Excess -10.3*L, Harvey Test Positive Height (Feet): 5 Height (Inches): 5.00 Weight (Pounds): 158 General Appearance: lethargic EENT: normal ENT inspection Neck: supple Cardiovascular: bradycardia Respiratory/Chest: decreased breath sounds Abdomen: soft, other - post surgical with drainage Extremities: non-tender Arthur Horton MD Oct 10, 2018 08:26
[2018-10-10] MEDS: Pantoprazole Inj IVP SCH ×2 (09:15→20:24)
--- NOTE | 2018-10-10 09:26 | General Progress Note ---
Assessment/Plan Problem List: (1) UTI (urinary tract infection) ICD Codes: N39.0 - Urinary tract infection, site not specified SNOMED: 82477687 (2) Renal failure ICD Codes: N19 - Unspecified kidney failure SNOMED: 73805357 (3) Anemia ICD Codes: D64.9 - Anemia, unspecified SNOMED: 994185221 (4) Acute respiratory failure ICD Codes: J96.00 - Acute respiratory failure, unspecified whether with hypoxia or hypercapnia SNOMED: 20761686 (5) Pneumonia ICD Codes: J18.9 - Pneumonia, unspecified organism SNOMED: 935820387 (6) Septic shock ICD Codes: A41.9 - Sepsis, unspecified organism; R65.21 - Severe sepsis with septic shock SNOMED: 69946888 (7) ATN (acute tubular necrosis) ICD Codes: N17.0 - Acute kidney failure with tubular necrosis SNOMED: 02740506 Status: unchanged Assessment/Plan vent abx wound care neph f/u gi eval, tpn cbc bmp am pressor support transfuse prn Subjective Constitutional: Reports: weakness Allergies: Coded Allergies: No Known Allergies (Unverified , 08/14/18) All Systems: reviewed and negative except above Subjective trach vent altered lethargic in icu on pressor Objective Last 24 Hour Vital Signs Date Time Temp Pulse Resp B/P (MAP) Pulse Ox O2 Delivery O2 Flow Rate FiO2 10/10/18 08:00 40 10/10/18 08:00 113 10/10/18 08:00 Mechanical Ventilator Mechanical Ventilator 10/10/18 07:00 116 32 82/50 99 Mechanical Ventilator 40 10/10/18 06:57 117 36 40 40 10/10/18 06:30 113 30 100/55 100 Mechanical Ventilator 40 10/10/18 06:00 119 35 88/50 100 Mechanical Ventilator 40 10/10/18 05:30 113 30 98/51 100 Mechanical Ventilator 40 10/10/18 05:10 110 35 40 40 10/10/18 05:00 111 30 96/54 100 Mechanical Ventilator 40 10/10/18 04:30 123 20 100/56 100 Mechanical Ventilator 40 10/10/18 04:00 136 10/10/18 04:00 Mechanical Ventilator Mechanical Ventilator 10/10/18 04:00 40 10/10/18 04:00 99.2 124 38 97/55 100 Mechanical Ventilator 40 10/10/18 03:30 118 31 94/62 100 Mechanical Ventilator 40 10/10/18 03:00 126 37 98/57 100 Mechanical Ventilator 40 10/10/18 02:30 131 41 90/51 100 Mechanical Ventilator 40 10/10/18 02:15 120 35 101/60 100 Mechanical Ventilator 40 10/10/18 02:00 125 37 98/58 100 Mechanical Ventilator 40 10/10/18 02:00 97/55 10/10/18 01:30 133 44 93/50 100 Mechanical Ventilator 40 10/10/18 01:03 122 38 40 40 10/10/18 01:00 121 36 103/63 100 Mechanical Ventilator 40 10/10/18 00:30 128 40 99/58 100 Mechanical Ventilator 40 10/10/18 00:00 127 10/10/18 00:00 Mechanical Ventilator Mechanical Ventilator 10/10/18 00:00 99.4 127 39 98/61 100 Mechanical Ventilator 40 10/10/18 00:00 40 10/09/18 23:30 129 44 100/62 100 Mechanical Ventilator 40 10/09/18 23:05 124 39 40 40 10/09/18 23:00 125 39 106/63 100 Mechanical Ventilator 40 10/09/18 22:30 124 37 105/57 100 Mechanical Ventilator 40 10/09/18 22:00 131 44 96/61 100 Mechanical Ventilator 40 10/09/18 21:30 124 43 95/56 100 Mechanical Ventilator 40 10/09/18 21:12 130 45 40 40 10/09/18 21:00 130 45 99/52 100 Mechanical Ventilator 40 10/09/18 20:30 129 42 91/58 100 Mechanical Ventilator 40 10/09/18 20:00 Mechanical Ventilator Mechanical Ventilator 10/09/18 20:00 98.8 132 44 90/53 100 Mechanical Ventilator 40 10/09/18 20:00 133 10/09/18 20:00 40 10/09/18 19:37 128 42 40 40 10/09/18 19:30 125 41 104/62 100 Mechanical Ventilator 40 10/09/18 19:00 129 43 99/68 100 Mechanical Ventilator 40 10/09/18 18:30 133 40 104/69 100 Mechanical Ventilator 40 10/09/18 18:00 132 40 98/70 100 Mechanical Ventilator 40 10/09/18 17:30 132 34 109/71 100 Mechanical Ventilator 40 10/09/18 17:29 128 30 40 40 10/09/18 17:00 128 30 114/75 100 Mechanical Ventilator 40 10/09/18 16:30 133 39 110/77 100 Mechanical Ventilator 40 10/09/18 16:07 88/51 10/09/18 16:00 40 10/09/18 16:00 Mechanical Ventilator Mechanical Ventilator 10/09/18 16:00 98.2 136 39 118/71 100 Mechanical Ventilator 40 10/09/18 16:00 128 10/09/18 15:30 136 38 111/74 100 Mechanical Ventilator 40 10/09/18 15:00 130 35 121/78 100 Mechanical Ventilator 40 10/09/18 14:36 130 33 40 40 10/09/18 14:30 137 38 108/77 99 Mechanical Ventilator 40 10/09/18 14:00 127 34 109/78 100 Mechanical Ventilator 40 10/09/18 13:30 137 31 100/66 99 Mechanical Ventilator 40 10/09/18 13:29 133 26 40 40 10/09/18 13:00 135 41 105/69 100 Mechanical Ventilator 40 10/09/18 12:30 136 42 107/68 100 Mechanical Ventilator 40 10/09/18 12:00 Mechanical Ventilator Mechanical Ventilator 10/09/18 12:00 130 10/09/18 12:00 40 10/09/18 12:00 98.2 136 42 108/66 100 Mechanical Ventilator 40 10/09/18 11:30 139 43 111/69 100 Mechanical Ventilator 40 10/09/18 11:00 136 41 105/68 100 Mechanical Ventilator 40 10/09/18 10:40 139 42 40 40 10/09/18 10:30 130 38 110/69 100 Mechanical Ventilator 40 10/09/18 10:00 132 39 101/67 100 Mechanical Ventilator 40 10/09/18 09:30 137 41 101/71 100 Mechanical Ventilator 40 Intake and Output 10/09/18 10/10/18 19:00 07:00 Intake Total 1951.87 ml 1924.35 ml Output Total 325 ml 420 ml Balance 1626.87 ml 1504.35 ml IV Total 1921.87 ml 1924.35 ml Other 30 ml Output Urine Total 0 ml 0 ml Stool Total 150 ml 300 ml Drainage Total 175 ml 120 ml Laboratory Tests 10/09/18 09:33: Arterial Blood pH 7.421, Arterial Blood Partial Pressure CO2 12.2*L, Arterial Blood Partial Pressure O2 105.9H, Arterial Blood HCO3 7.8*L, Arterial Blood Oxygen Saturation 96.9, Arterial Blood Base Excess -14.7*L, Harvey Test Positive 10/10/18 07:00: White Blood Count 40.9*H, Red Blood Count 1.56L, Hemoglobin 4.8#*L, Hematocrit 13.9#L, Mean Corpuscular Volume 89, Mean Corpuscular Hemoglobin 30.6, Mean Corpuscular Hemoglobin Concent 34.4, Red Cell Distribution Width 13.3, Platelet Count 142L, Mean Platelet Volume 10.2H, Neutrophils (%) (Auto) , Lymphocytes (% ) (Auto) , Monocytes (%) (Auto) , Eosinophils (%) (Auto) , Basophils (%) (Auto) , Differential Total Cells Counted 100, Neutrophils % (Manual) 89H, Lymphocytes % (Manual) 5L, Monocytes % (Manual) 2, Eosinophils % (Manual) 0, Basophils % ( Manual) 0, Myelocytes % 2H, Band Neutrophils 2, Nucleated Red Blood Cells 1, Platelet Estimate DecreasedL, Platelet Morphology Normal, Polychromasia 2+, Hypochromasia 2+, Sodium Level 133L, Potassium Level 4.8, Chloride Level 97L, Carbon Dioxide Level 13L, Anion Gap 23H, Blood Urea Nitrogen 53H, Creatinine 4.7H, Estimat Glomerular Filtration Rate 12.8, Glucose Level 250H, Lactic Acid Level 10.20H, Uric Acid 8.7H, Calcium Level 5.8*L, Phosphorus Level 9.2H, Magnesium Level 1.9, Total Bilirubin 2.6H, Direct Bilirubin [Pending], Gamma Glutamyl Transpeptidase 109H, Aspartate Amino Transf (AST/SGOT) 1308H, Alanine Aminotransferase (ALT/SGPT) 962H, Alkaline Phosphatase 185H, C-Reactive Protein , Quantitative 19.2H, Pro-B-Type Natriuretic Peptide 7597H, Total Protein 4.3L, Albumin 0.8L, Globulin 3.5, Albumin/Globulin Ratio 0.2L 10/10/18 08:13: Arterial Blood pH 7.535H, Arterial Blood Partial Pressure CO2 14.3*L, Arterial Blood Partial Pressure O2 140.7H, Arterial Blood HCO3 11.8*L, Arterial Blood Oxygen Saturation 97.7, Arterial Blood Base Excess -10.3*L, Harvey Test Positive Height (Feet): 5 Height (Inches): 5.00 Weight (Pounds): 158 General Appearance: lethargic EENT: normal ENT inspection Neck: normal alignment Cardiovascular: normal peripheral pulses, normal rate, regular rhythm Respiratory/Chest: chest wall non-tender, decreased breath sounds Abdomen: soft, hypoactive bowel sounds Extremities: normal inspection Edema: no edema noted Arm (L), no edema noted Arm (R), no edema noted Leg (L), no edema noted Leg (R), no edema noted Pedal (L), no edema noted Pedal (R), no edema noted Generalized Neurologic: motor weakness Skin: normal pigmentation, warm/dry Jasmeet Reynoso DO Oct 10, 2018 09:26
[2018-10-10] MEDS: Sodium Bicarbonate 100 ML in D5 1/2NS 1,000 ML IV SCH ×2 (09:52→20:24)
[2018-10-10 09:57] LABS: BILIRUBIN,DIRECT 1.8 MG/DL (0.0-0.3)
--- NOTE | 2018-10-10 10:11 | Pulmonolgy Critical Care Note ---
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, 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 Discussed with: nurses, consultants, binder 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 manager - Objective Last 24 Hour Vital Signs Date Time Temp Pulse Resp B/P (MAP) Pulse Ox O2 Delivery O2 Flow Rate FiO2 10/10/18 09:00 118 26 40 40 10/10/18 08:00 40 10/10/18 08:00 113 10/10/18 08:00 Mechanical Ventilator Mechanical Ventilator 10/10/18 07:00 116 32 82/50 99 Mechanical Ventilator 40 10/10/18 06:57 117 36 40 40 10/10/18 06:30 113 30 100/55 100 Mechanical Ventilator 40 10/10/18 06:00 119 35 88/50 100 Mechanical Ventilator 40 10/10/18 05:30 113 30 98/51 100 Mechanical Ventilator 40 10/10/18 05:10 110 35 40 40 10/10/18 05:00 111 30 96/54 100 Mechanical Ventilator 40 10/10/18 04:30 123 20 100/56 100 Mechanical Ventilator 40 10/10/18 04:00 136 10/10/18 04:00 Mechanical Ventilator Mechanical Ventilator 10/10/18 04:00 40 10/10/18 04:00 99.2 124 38 97/55 100 Mechanical Ventilator 40 10/10/18 03:30 118 31 94/62 100 Mechanical Ventilator 40 10/10/18 03:00 126 37 98/57 100 Mechanical Ventilator 40 10/10/18 02:30 131 41 90/51 100 Mechanical Ventilator 40 10/10/18 02:15 120 35 101/60 100 Mechanical Ventilator 40 10/10/18 02:00 125 37 98/58 100 Mechanical Ventilator 40 10/10/18 02:00 97/55 10/10/18 01:30 133 44 93/50 100 Mechanical Ventilator 40 10/10/18 01:03 122 38 40 40 10/10/18 01:00 121 36 103/63 100 Mechanical Ventilator 40 10/10/18 00:30 128 40 99/58 100 Mechanical Ventilator 40 10/10/18 00:00 127 10/10/18 00:00 Mechanical Ventilator Mechanical Ventilator 10/10/18 00:00 99.4 127 39 98/61 100 Mechanical Ventilator 40 10/10/18 00:00 40 10/09/18 23:30 129 44 100/62 100 Mechanical Ventilator 40 10/09/18 23:05 124 39 40 40 10/09/18 23:00 125 39 106/63 100 Mechanical Ventilator 40 10/09/18 22:30 124 37 105/57 100 Mechanical Ventilator 40 10/09/18 22:00 131 44 96/61 100 Mechanical Ventilator 40 10/09/18 21:30 124 43 95/56 100 Mechanical Ventilator 40 10/09/18 21:12 130 45 40 40 10/09/18 21:00 130 45 99/52 100 Mechanical Ventilator 40 10/09/18 20:30 129 42 91/58 100 Mechanical Ventilator 40 10/09/18 20:00 Mechanical Ventilator Mechanical Ventilator 10/09/18 20:00 98.8 132 44 90/53 100 Mechanical Ventilator 40 10/09/18 20:00 133 10/09/18 20:00 40 10/09/18 19:37 128 42 40 40 10/09/18 19:30 125 41 104/62 100 Mechanical Ventilator 40 10/09/18 19:00 129 43 99/68 100 Mechanical Ventilator 40 10/09/18 18:30 133 40 104/69 100 Mechanical Ventilator 40 10/09/18 18:00 132 40 98/70 100 Mechanical Ventilator 40 10/09/18 17:30 132 34 109/71 100 Mechanical Ventilator 40 10/09/18 17:29 128 30 40 40 10/09/18 17:00 128 30 114/75 100 Mechanical Ventilator 40 10/09/18 16:30 133 39 110/77 100 Mechanical Ventilator 40 10/09/18 16:07 88/51 10/09/18 16:00 40 10/09/18 16:00 Mechanical Ventilator Mechanical Ventilator 10/09/18 16:00 98.2 136 39 118/71 100 Mechanical Ventilator 40 10/09/18 16:00 128 10/09/18 15:30 136 38 111/74 100 Mechanical Ventilator 40 10/09/18 15:00 130 35 121/78 100 Mechanical Ventilator 40 10/09/18 14:36 130 33 40 40 10/09/18 14:30 137 38 108/77 99 Mechanical Ventilator 40 10/09/18 14:00 127 34 109/78 100 Mechanical Ventilator 40 10/09/18 13:30 137 31 100/66 99 Mechanical Ventilator 40 10/09/18 13:29 133 26 40 40 10/09/18 13:00 135 41 105/69 100 Mechanical Ventilator 40 10/09/18 12:30 136 42 107/68 100 Mechanical Ventilator 40 10/09/18 12:00 Mechanical Ventilator Mechanical Ventilator 10/09/18 12:00 130 10/09/18 12:00 40 10/09/18 12:00 98.2 136 42 108/66 100 Mechanical Ventilator 40 10/09/18 11:30 139 43 111/69 100 Mechanical Ventilator 40 10/09/18 11:00 136 41 105/68 100 Mechanical Ventilator 40 10/09/18 10:40 139 42 40 40 10/09/18 10:30 130 38 110/69 100 Mechanical Ventilator 40 Status: somnolent, obtunded Condition: critical HEENT: atraumatic Neck: full ROM Lungs: clear Heart: HR/BP stable Abdomen: soft, active bowel sounds Extremities: edema Decubiti: stage Micro: Microbiology Date/Time Source Procedure Growth Status 10/08/18 05:15 Blood Blood Culture - Preliminary NO GROWTH AFTER 24 HOURS Resulted 10/08/18 05:10 Blood Blood Culture - Preliminary NO GROWTH AFTER 24 HOURS Resulted 10/09/18 05:30 Stool Clostridium difficile Toxin Assay - Final Complete Accucheck: 65 Critical Care - Subjective ROS Limited/Unobtainable: Yes Condition: critical EKG Rhythm: Sinus Rhythm FI02: 40 Vent Support Breath Rate: 16 Vent Support Mode: AC Vent Tidal Volume: 600 Sputum Amount: Scant PEEP: 0.0 PIP: 42 Drips: less levophed Tube Feeding Amount: 0 I&O: Intake and Output 10/09/18 10/10/18 19:00 07:00 Intake Total 1951.87 ml 1924.35 ml Output Total 325 ml 420 ml Balance 1626.87 ml 1504.35 ml IV Total 1921.87 ml 1924.35 ml Other 30 ml Output Urine Total 0 ml 0 ml Stool Total 150 ml 300 ml Drainage Total 175 ml 120 ml CXR: trach in place Labs: Laboratory Tests Test 10/10/18 07:00 10/10/18 08:13 White Blood Count 40.9 K/UL (4.8-10.8) *H Red Blood Count 1.56 M/UL (4.70-6.10) L Hemoglobin 4.8 G/DL (14.2-18.0) Hematocrit 13.9 % (42.0-52.0) #L Mean Corpuscular Volume 89 FL (80-99) Mean Corpuscular Hemoglobin 30.6 PG (27.0-31.0) Mean Corpuscular Hemoglobin Concent 34.4 G/DL (32.0-36.0) Red Cell Distribution Width 13.3 % (11.6-14.8) Platelet Count 142 K/UL (150-450) L Mean Platelet Volume 10.2 FL (6.5-10.1) H Neutrophils (%) (Auto) % (45.0-75.0) Lymphocytes (%) (Auto) % (20.0-45.0) Monocytes (%) (Auto) % (1.0-10.0) Eosinophils (%) (Auto) % (0.0-3.0) Basophils (%) (Auto) % (0.0-2.0) Differential Total Cells Counted 100 Neutrophils % (Manual) 89 % (45-75) H Lymphocytes % (Manual) 5 % (20-45) L Monocytes % (Manual) 2 % (1-10) Eosinophils % (Manual) 0 % (0-3) Basophils % (Manual) 0 % (0-2) Myelocytes % 2 % (0-0) H Band Neutrophils 2 % (0-8) Nucleated Red Blood Cells 1 /100 WBC Platelet Estimate Decreased L Platelet Morphology Normal Polychromasia 2+ Hypochromasia 2+ Sodium Level 133 MMOL/L (136-145) L Potassium Level 4.8 MMOL/L (3.5-5.1) Chloride Level 97 MMOL/L (98-107) L Carbon Dioxide Level 13 MMOL/L (21-32) L Anion Gap 23 mmol/L (5-15) H Blood Urea Nitrogen 53 mg/dL (7-18) H Creatinine 4.7 MG/DL (0.55-1.30) H Estimat Glomerular Filtration Rate 12.8 mL/min (>60) Glucose Level 250 MG/DL (74-106) H Lactic Acid Level 10.20 mmol/L (0.4-2.0) H Uric Acid 8.7 MG/DL (2.6-7.2) H Calcium Level 5.8 MG/DL (8.5-10.1) *L Phosphorus Level 9.2 MG/DL (2.5-4.9) H Magnesium Level 1.9 MG/DL (1.8-2.4) Total Bilirubin 2.6 MG/DL (0.2-1.0) H Direct Bilirubin 1.8 MG/DL (0.0-0.3) H Gamma Glutamyl Transpeptidase 109 U/L (5-85) H Aspartate Amino Transf (AST/SGOT) 1308 U/L (15-37) H Alanine Aminotransferase (ALT/SGPT) 962 U/L (12-78) H Alkaline Phosphatase 185 U/L (46-116) H C-Reactive Protein, Quantitative 19.2 mg/dL (0.00-0.90) H Pro-B-Type Natriuretic Peptide 7597 pg/mL (0-125) H Total Protein 4.3 G/DL (6.4-8.2) L Albumin 0.8 G/DL (3.4-5.0) L Globulin 3.5 g/dL Albumin/Globulin Ratio 0.2 (1.0-2.7) L Arterial Blood pH 7.535 (7.350-7.450) Arterial Blood Partial Pressure CO2 14.3 mmHg (35.0-45.0) *L Arterial Blood Partial Pressure O2 140.7 mmHg (75.0-100.0) H Arterial Blood HCO3 11.8 mmol/L (22.0-26.0) *L Arterial Blood Oxygen Saturation 97.7 % (95-100) Arterial Blood Base Excess -10.3 (-2-2) *L Harvey Test Positive Po Li MD Oct 10, 2018 10:11
--- NOTE | 2018-10-10 10:26 | Diagnostic Imaging Report ---
INDICATION: Dyspnea COMPARISON: Chest x-ray dated 10/09/18 FINDINGS: Single frontal view demonstrates a tracheostomy. The heart size is not well evaluated. An opacity is seen within the left lower lung zone, grossly unchanged. Improved aeration of the right lower lung zone. IMPRESSION: Improved aeration of the right lower lung zone with a unchanged opacity in the left lower lung zone. Stable tracheostomy.
--- NOTE | 2018-10-10 13:09 | Nephrology Progress Note ---
Assessment/Plan Problem List: (1) ATN (acute tubular necrosis) Assessment: Cr rising (2) Septic shock (3) Lactic acid acidosis (4) Metabolic acidosis (5) Hyperkalemia (6) G tube feedings (7) Acute respiratory failure Assessment ? internal bleed no surgical candidate post op 09/22/18: Trach, Splenectomy, Perf.... 10/08- condition worsenned- shock- septic- pressors Sever metabolic acidosis Acute Oliguric Renal Failure pressors presented with Shock , likely septic Acute renal failure resolved Acute metabolic acidosis resolved Hyperkalemia PEG Recent Pneumonia Plan plan: Poor prognosis, remains full code !! hemodynamic support not much can be add from renal stand now trached 09/22 post laparatomy 09/22 on pressors again pulmonary support Fluid challenge as needed antibiotics monitor renal parameters and ABG Subjective ROS Limited/Unobtainable: Yes Objective Objective Last 24 Hour Vital Signs Date Time Temp Pulse Resp B/P (MAP) Pulse Ox O2 Delivery O2 Flow Rate FiO2 10/10/18 13:02 125 26 40 40 10/10/18 10:46 118 27 40 40 10/10/18 10:30 122 27 99/59 100 Mechanical Ventilator 40 10/10/18 10:00 117 26 93/61 100 Mechanical Ventilator 40 10/10/18 09:30 117 26 98/59 100 Mechanical Ventilator 40 10/10/18 09:15 118 27 100/53 100 Mechanical Ventilator 40 10/10/18 09:00 118 26 40 40 10/10/18 09:00 114 28 109/62 100 Mechanical Ventilator 40 10/10/18 08:45 113 30 117/65 100 Mechanical Ventilator 40 10/10/18 08:30 108 29 73/43 100 Mechanical Ventilator 40 10/10/18 08:15 107 29 128/59 100 Mechanical Ventilator 40 10/10/18 08:00 40 10/10/18 08:00 113 10/10/18 08:00 97.5 112 30 76/44 100 Mechanical Ventilator 40 10/10/18 08:00 Mechanical Ventilator Mechanical Ventilator 10/10/18 07:30 112 35 83/47 100 Mechanical Ventilator 40 10/10/18 07:00 116 32 82/50 99 Mechanical Ventilator 40 10/10/18 06:57 117 36 40 40 10/10/18 06:30 113 30 100/55 100 Mechanical Ventilator 40 10/10/18 06:00 119 35 88/50 100 Mechanical Ventilator 40 10/10/18 05:30 113 30 98/51 100 Mechanical Ventilator 40 10/10/18 05:10 110 35 40 40 10/10/18 05:00 111 30 96/54 100 Mechanical Ventilator 40 10/10/18 04:30 123 20 100/56 100 Mechanical Ventilator 40 10/10/18 04:00 136 10/10/18 04:00 Mechanical Ventilator Mechanical Ventilator 10/10/18 04:00 40 10/10/18 04:00 99.2 124 38 97/55 100 Mechanical Ventilator 40 10/10/18 03:30 118 31 94/62 100 Mechanical Ventilator 40 10/10/18 03:00 126 37 98/57 100 Mechanical Ventilator 40 10/10/18 02:30 131 41 90/51 100 Mechanical Ventilator 40 10/10/18 02:15 120 35 101/60 100 Mechanical Ventilator 40 10/10/18 02:00 125 37 98/58 100 Mechanical Ventilator 40 10/10/18 02:00 97/55 10/10/18 01:30 133 44 93/50 100 Mechanical Ventilator 40 10/10/18 01:03 122 38 40 40 10/10/18 01:00 121 36 103/63 100 Mechanical Ventilator 40 10/10/18 00:30 128 40 99/58 100 Mechanical Ventilator 40 10/10/18 00:00 127 10/10/18 00:00 Mechanical Ventilator Mechanical Ventilator 10/10/18 00:00 99.4 127 39 98/61 100 Mechanical Ventilator 40 10/10/18 00:00 40 10/09/18 23:30 129 44 100/62 100 Mechanical Ventilator 40 10/09/18 23:05 124 39 40 40 10/09/18 23:00 125 39 106/63 100 Mechanical Ventilator 40 10/09/18 22:30 124 37 105/57 100 Mechanical Ventilator 40 10/09/18 22:00 131 44 96/61 100 Mechanical Ventilator 40 10/09/18 21:30 124 43 95/56 100 Mechanical Ventilator 40 10/09/18 21:12 130 45 40 40 10/09/18 21:00 130 45 99/52 100 Mechanical Ventilator 40 10/09/18 20:30 129 42 91/58 100 Mechanical Ventilator 40 10/09/18 20:00 Mechanical Ventilator Mechanical Ventilator 10/09/18 20:00 98.8 132 44 90/53 100 Mechanical Ventilator 40 10/09/18 20:00 133 10/09/18 20:00 40 10/09/18 19:37 128 42 40 40 10/09/18 19:30 125 41 104/62 100 Mechanical Ventilator 40 10/09/18 19:00 129 43 99/68 100 Mechanical Ventilator 40 10/09/18 18:30 133 40 104/69 100 Mechanical Ventilator 40 10/09/18 18:00 132 40 98/70 100 Mechanical Ventilator 40 10/09/18 17:30 132 34 109/71 100 Mechanical Ventilator 40 10/09/18 17:29 128 30 40 40 10/09/18 17:00 128 30 114/75 100 Mechanical Ventilator 40 10/09/18 16:30 133 39 110/77 100 Mechanical Ventilator 40 10/09/18 16:07 88/51 10/09/18 16:00 40 10/09/18 16:00 Mechanical Ventilator Mechanical Ventilator 10/09/18 16:00 98.2 136 39 118/71 100 Mechanical Ventilator 40 10/09/18 16:00 128 10/09/18 15:30 136 38 111/74 100 Mechanical Ventilator 40 10/09/18 15:00 130 35 121/78 100 Mechanical Ventilator 40 10/09/18 14:36 130 33 40 40 10/09/18 14:30 137 38 108/77 99 Mechanical Ventilator 40 10/09/18 14:00 127 34 109/78 100 Mechanical Ventilator 40 10/09/18 13:30 137 31 100/66 99 Mechanical Ventilator 40 10/09/18 13:29 133 26 40 40 Intake and Output 10/09/18 10/10/18 19:00 07:00 Intake Total 1951.87 ml 1924.35 ml Output Total 325 ml 420 ml Balance 1626.87 ml 1504.35 ml IV Total 1921.87 ml 1924.35 ml Other 30 ml Output Urine Total 0 ml 0 ml Stool Total 150 ml 300 ml Drainage Total 175 ml 120 ml Laboratory Tests 10/10/18 07:00: White Blood Count 40.9*H, Red Blood Count 1.56L, Hemoglobin 4.8#*L, Hematocrit 13.9#L, Mean Corpuscular Volume 89, Mean Corpuscular Hemoglobin 30.6, Mean Corpuscular Hemoglobin Concent 34.4, Red Cell Distribution Width 13.3, Platelet Count 142L, Mean Platelet Volume 10.2H, Neutrophils (%) (Auto) , Lymphocytes (% ) (Auto) , Monocytes (%) (Auto) , Eosinophils (%) (Auto) , Basophils (%) (Auto) , Differential Total Cells Counted 100, Neutrophils % (Manual) 89H, Lymphocytes % (Manual) 5L, Monocytes % (Manual) 2, Eosinophils % (Manual) 0, Basophils % ( Manual) 0, Myelocytes % 2H, Band Neutrophils 2, Nucleated Red Blood Cells 1, Platelet Estimate DecreasedL, Platelet Morphology Normal, Polychromasia 2+, Hypochromasia 2+, Sodium Level 133L, Potassium Level 4.8, Chloride Level 97L, Carbon Dioxide Level 13L, Anion Gap 23H, Blood Urea Nitrogen 53H, Creatinine 4.7H, Estimat Glomerular Filtration Rate 12.8, Glucose Level 250H, Lactic Acid Level 10.20H, Uric Acid 8.7H, Calcium Level 5.8*L, Phosphorus Level 9.2H, Magnesium Level 1.9, Total Bilirubin 2.6H, Direct Bilirubin 1.8H, Gamma Glutamyl Transpeptidase 109H, Aspartate Amino Transf (AST/SGOT) 1308H, Alanine Aminotransferase (ALT/SGPT) 962H, Alkaline Phosphatase 185H, C-Reactive Protein , Quantitative 19.2H, Pro-B-Type Natriuretic Peptide 7597H, Total Protein 4.3L, Albumin 0.8L, Globulin 3.5, Albumin/Globulin Ratio 0.2L 10/10/18 08:13: Arterial Blood pH 7.535H, Arterial Blood Partial Pressure CO2 14.3*L, Arterial Blood Partial Pressure O2 140.7H, Arterial Blood HCO3 11.8*L, Arterial Blood Oxygen Saturation 97.7, Arterial Blood Base Excess -10.3*L, Harvey Test Positive 10/10/18 10:45: Lactic Acid Level 8.80H Height (Feet): 5 Height (Inches): 5.00 Weight (Pounds): 158 General Appearance: lethargic Cardiovascular: tachycardia Respiratory/Chest: decreased breath sounds Abdomen: distended Objective no other changes Josesito Smalls MD Oct 10, 2018 13:09
--- NOTE | 2018-10-10 15:24 | Infectious Diseases Prog Note ---
Assessment/Plan Assessment/Plan Assessment/Plan: 62 yo male with PMHx of Quadriplegia with G-tube, HTN, DM and Schizophenia who was [facility] ED [facility] for AMS. Aferbile Shock- combination of septic and hypovolemnic (bleeding from ELISABET drain) -10/08 CXR: Slightly improved but persistent interstitial congestion, bilateral interstitial and airspace infiltrates versus edema, over 2 days Bcx NTD u/a wbc 5-10 Displaced GT with perforation c/w peritonitis and hematoma/abscess formation -10/02 CT abd/p: Interval exploratory laparotomy, status post splenectomy, status post removal of gastrostomy tube with 2 abdominal drains noted. Abnormal appearance of the stomach with marked wall thickening and pneumatosis. Abnormal appearance of small bowel and large bowel showing wall thickening and enhancement may be related to enteritis and/or colitis. Trace ascites -09/22 SP Exploratory laparotomy. Repair of gastric perforation. Evacuation of abdominal omental / lesser sac hematoma. Evacuation of perisplenic hematoma/ abscess. Omentectomy. Splenectomy. Abdominal washout. Tracheostomy. -09/21 CT abd/p: The gastrostomy tube appears to be partially intraluminal and partially communicate with a large intramural collection involving mostly the inferior posterior wall of the stomach. There is some anterior wall pneumatosis. Contrast within the collection most likely represents instilled enteric contrast, but could also represent extravasated vascular contrast. There is evidence of rupture of this collection into the peritoneal space, with extravasated contrast in the left upper quadrant. There is anterior gastric wall intramural pneumatosis as well as a small amount of free extraluminal gas. Moderate ascites. Enhancement of much of the peritoneum raises concern for peritonitis. There may also be loculated intraperitoneal collections which could represent abscesses, predominantly adjacent to the tip of the right hepatic lobe, subcapsular in the spleen, and within the left upper quadrant. Thick-walled sigmoid colon, transverse colon and equivocally the proximal jejunum. Likely reactive related to the above, but could also indicate enteritis /colitis changes Leukocytosis, improving -09/29 L ELISABET drain (+purulebnt fluid) cx : C. tropicalis -18 u/a neg, ucx NTD Bcx NTD CXR: Over one day, interim development of bilateral supraclavicular subcutaneous emphysema and pneumomediastinum, etiology not demonstrated. Persistent low lung volumes with basilar atelectatic changes and left-sided pleural effusion -09/20 ucx NTD; u/a neg -09/19 CXR: Bilateral pleural effusions and bibasilar atelectasis/airspace disease are stable. Transaminitis: Improving Diarrhea- -09/27 Cdiff neg Sepsis - Probably PNA , s/p Rx 09/22 CXR: Bilateral pleural effusions, basilar atelectatic changes, and interstitial congestive changes are stable CXR 09/07/18 - possible left sided consolidation Inf neg 09/07/18 BCx 2/2 sets diphteroids, 1/ setse S. epi (contaminants); 09/11 Bcx NTD 09/07/18 SCx - NF 09/07/18 UCx - Neg 09/09 Cdiff neg GIB YI HTN DM Schizophenia Quadriplegia. G- tube dependent Plan -Cont Meropenem #3 and IV Daptomycin #3 given decompensation -Continue IV Micafungin #18 -10/08 SP Zosyn #17 -f/u Repeat cultures, cdiff -09/28 SP Flagyl #3 - 09/19/18 SP Zosyn #10 - 09/17/18 SP Vancmocyin #10 - 09/09/18 Ertapenem #3 - Monitor CBC and temps -Sx f/u -wound care -critically ill, on ICU and high dose pressors; poor px Subjective Allergies: Coded Allergies: No Known Allergies (Unverified , 08/14/18) Subjective on vent , on pressors in ICU Objective Vital Signs Last 24 Hour Vital Signs Date Time Temp Pulse Resp B/P (MAP) Pulse Ox O2 Delivery O2 Flow Rate FiO2 10/10/18 14:41 120 23 40 40 10/10/18 14:30 120 26 131/72 100 Mechanical Ventilator 40 10/10/18 14:00 120 26 114/66 98 Mechanical Ventilator 40 10/10/18 13:30 120 26 113/61 99 Mechanical Ventilator 40 10/10/18 13:02 125 26 40 40 10/10/18 13:00 129 38 91/56 100 Mechanical Ventilator 40 10/10/18 12:30 119 26 96/54 99 Mechanical Ventilator 40 10/10/18 12:00 98.4 120 27 94/62 100 Mechanical Ventilator 40 10/10/18 12:00 40 10/10/18 12:00 120 3/2/19 12:00 Mechanical Ventilator Mechanical Ventilator 10/10/18 11:30 120 28 105/63 100 Mechanical Ventilator 40 10/10/18 11:00 118 28 102/67 100 Mechanical Ventilator 40 10/10/18 10:46 118 27 40 40 10/10/18 10:30 122 27 99/59 100 Mechanical Ventilator 40 10/10/18 10:00 117 26 93/61 100 Mechanical Ventilator 40 10/10/18 09:30 117 26 98/59 100 Mechanical Ventilator 40 10/10/18 09:15 118 27 100/53 100 Mechanical Ventilator 40 10/10/18 09:00 118 26 40 40 10/10/18 09:00 114 28 109/62 100 Mechanical Ventilator 40 10/10/18 08:45 113 30 117/65 100 Mechanical Ventilator 40 10/10/18 08:30 108 29 73/43 100 Mechanical Ventilator 40 10/10/18 08:15 107 29 128/59 100 Mechanical Ventilator 40 10/10/18 08:00 40 10/10/18 08:00 113 10/10/18 08:00 97.5 112 30 76/44 100 Mechanical Ventilator 40 10/10/18 08:00 Mechanical Ventilator Mechanical Ventilator 10/10/18 07:30 112 35 83/47 100 Mechanical Ventilator 40 10/10/18 07:00 116 32 82/50 99 Mechanical Ventilator 40 10/10/18 06:57 117 36 40 40 10/10/18 06:30 113 30 100/55 100 Mechanical Ventilator 40 10/10/18 06:00 119 35 88/50 100 Mechanical Ventilator 40 10/10/18 05:30 113 30 98/51 100 Mechanical Ventilator 40 10/10/18 05:10 110 35 40 40 10/10/18 05:00 111 30 96/54 100 Mechanical Ventilator 40 10/10/18 04:30 123 20 100/56 100 Mechanical Ventilator 40 10/10/18 04:00 136 10/10/18 04:00 Mechanical Ventilator Mechanical Ventilator 10/10/18 04:00 40 10/10/18 04:00 99.2 124 38 97/55 100 Mechanical Ventilator 40 10/10/18 03:30 118 31 94/62 100 Mechanical Ventilator 40 10/10/18 03:00 126 37 98/57 100 Mechanical Ventilator 40 10/10/18 02:30 131 41 90/51 100 Mechanical Ventilator 40 10/10/18 02:15 120 35 101/60 100 Mechanical Ventilator 40 10/10/18 02:00 125 37 98/58 100 Mechanical Ventilator 40 10/10/18 02:00 97/55 10/10/18 01:30 133 44 93/50 100 Mechanical Ventilator 40 10/10/18 01:03 122 38 40 40 10/10/18 01:00 121 36 103/63 100 Mechanical Ventilator 40 10/10/18 00:30 128 40 99/58 100 Mechanical Ventilator 40 10/10/18 00:00 127 10/10/18 00:00 Mechanical Ventilator Mechanical Ventilator 10/10/18 00:00 99.4 127 39 98/61 100 Mechanical Ventilator 40 10/10/18 00:00 40 10/09/18 23:30 129 44 100/62 100 Mechanical Ventilator 40 10/09/18 23:05 124 39 40 40 10/09/18 23:00 125 39 106/63 100 Mechanical Ventilator 40 10/09/18 22:30 124 37 105/57 100 Mechanical Ventilator 40 10/09/18 22:00 131 44 96/61 100 Mechanical Ventilator 40 10/09/18 21:30 124 43 95/56 100 Mechanical Ventilator 40 10/09/18 21:12 130 45 40 40 10/09/18 21:00 130 45 99/52 100 Mechanical Ventilator 40 10/09/18 20:30 129 42 91/58 100 Mechanical Ventilator 40 10/09/18 20:00 Mechanical Ventilator Mechanical Ventilator 10/09/18 20:00 98.8 132 44 90/53 100 Mechanical Ventilator 40 10/09/18 20:00 133 10/09/18 20:00 40 10/09/18 19:37 128 42 40 40 10/09/18 19:30 125 41 104/62 100 Mechanical Ventilator 40 10/09/18 19:00 129 43 99/68 100 Mechanical Ventilator 40 10/09/18 18:30 133 40 104/69 100 Mechanical Ventilator 40 10/09/18 18:00 132 40 98/70 100 Mechanical Ventilator 40 10/09/18 17:30 132 34 109/71 100 Mechanical Ventilator 40 10/09/18 17:29 128 30 40 40 10/09/18 17:00 128 30 114/75 100 Mechanical Ventilator 40 10/09/18 16:30 133 39 110/77 100 Mechanical Ventilator 40 10/09/18 16:07 88/51 10/09/18 16:00 40 10/09/18 16:00 Mechanical Ventilator Mechanical Ventilator 10/09/18 16:00 98.2 136 39 118/71 100 Mechanical Ventilator 40 10/09/18 16:00 128 10/09/18 15:30 136 38 111/74 100 Mechanical Ventilator 40 Height (Feet): 5 Height (Inches): 5.00 Weight (Pounds): 158 HEENT: atraumatic Respiratory/Chest: decreased breath sounds Abdomen: soft, non tender Microbiology Date/Time Source Procedure Growth Status 10/08/18 05:15 Blood Blood Culture - Preliminary NO GROWTH AFTER 24 HOURS Resulted 10/08/18 05:10 Blood Blood Culture - Preliminary NO GROWTH AFTER 24 HOURS Resulted 10/09/18 05:30 Stool Clostridium difficile Toxin Assay - Final Complete Laboratory Tests Test 10/10/18 07:00 10/10/18 08:13 10/10/18 10:45 White Blood Count 40.9 K/UL (4.8-10.8) *H Red Blood Count 1.56 M/UL (4.70-6.10) L Hemoglobin 4.8 G/DL (14.2-18.0) Hematocrit 13.9 % (42.0-52.0) #L Mean Corpuscular Volume 89 FL (80-99) Mean Corpuscular Hemoglobin 30.6 PG (27.0-31.0) Mean Corpuscular Hemoglobin Concent 34.4 G/DL (32.0-36.0) Red Cell Distribution Width 13.3 % (11.6-14.8) Platelet Count 142 K/UL (150-450) L Mean Platelet Volume 10.2 FL (6.5-10.1) H Neutrophils (%) (Auto) % (45.0-75.0) Lymphocytes (%) (Auto) % (20.0-45.0) Monocytes (%) (Auto) % (1.0-10.0) Eosinophils (%) (Auto) % (0.0-3.0) Basophils (%) (Auto) % (0.0-2.0) Differential Total Cells Counted 100 Neutrophils % (Manual) 89 % (45-75) H Lymphocytes % (Manual) 5 % (20-45) L Monocytes % (Manual) 2 % (1-10) Eosinophils % (Manual) 0 % (0-3) Basophils % (Manual) 0 % (0-2) Myelocytes % 2 % (0-0) H Band Neutrophils 2 % (0-8) Nucleated Red Blood Cells 1 /100 WBC Platelet Estimate Decreased L Platelet Morphology Normal Polychromasia 2+ Hypochromasia 2+ Sodium Level 133 MMOL/L (136-145) L Potassium Level 4.8 MMOL/L (3.5-5.1) Chloride Level 97 MMOL/L (98-107) L Carbon Dioxide Level 13 MMOL/L (21-32) L Anion Gap 23 mmol/L (5-15) H Blood Urea Nitrogen 53 mg/dL (7-18) H Creatinine 4.7 MG/DL (0.55-1.30) H Estimat Glomerular Filtration Rate 12.8 mL/min (>60) Glucose Level 250 MG/DL (74-106) H Lactic Acid Level 10.20 mmol/L (0.4-2.0) H 8.80 mmol/L (0.66-2.22) H Uric Acid 8.7 MG/DL (2.6-7.2) H Calcium Level 5.8 MG/DL (8.5-10.1) *L Phosphorus Level 9.2 MG/DL (2.5-4.9) H Magnesium Level 1.9 MG/DL (1.8-2.4) Total Bilirubin 2.6 MG/DL (0.2-1.0) H Direct Bilirubin 1.8 MG/DL (0.0-0.3) H Gamma Glutamyl Transpeptidase 109 U/L (5-85) H Aspartate Amino Transf (AST/SGOT) 1308 U/L (15-37) H Alanine Aminotransferase (ALT/SGPT) 962 U/L (12-78) H Alkaline Phosphatase 185 U/L (46-116) H C-Reactive Protein, Quantitative 19.2 mg/dL (0.00-0.90) H Pro-B-Type Natriuretic Peptide 7597 pg/mL (0-125) H Total Protein 4.3 G/DL (6.4-8.2) L Albumin 0.8 G/DL (3.4-5.0) L Globulin 3.5 g/dL Albumin/Globulin Ratio 0.2 (1.0-2.7) L Arterial Blood pH 7.535 (7.350-7.450) Arterial Blood Partial Pressure CO2 14.3 mmHg (35.0-45.0) *L Arterial Blood Partial Pressure O2 140.7 mmHg (75.0-100.0) H Arterial Blood HCO3 11.8 mmol/L (22.0-26.0) *L Arterial Blood Oxygen Saturation 97.7 % (95-100) Arterial Blood Base Excess -10.3 (-2-2) *L Harvey Test Positive Current Medications Medications (Trade) Dose Ordered Sig/Julito Route PRN Reason Start Time Stop Time Status Last Admin Dose Admin Acetaminophen (Tylenol) 650 mg Q4H PRN NG Mild Pain/Temp > 100.5 10/07/18 21:18 11/06/18 21:17 Acetaminophen (Tylenol) 650 mg Q4H PRN RECTAL Mild Pain (Pain Scale 1-3) 10/07/18 21:18 11/06/18 21:17 Albuterol/ Ipratropium (Albuterol/ Ipratropium) 3 ml Q4H PRN HHN sob 10/07/18 23:00 10/12/18 22:59 Chlorhexidine Gluconate (Camila-Hex 2%) 1 applic DAILY@2000 TOPIC 10/08/18 20:00 10/15/18 19:59 10/09/18 20:00 Daptomycin 450 mg/ Sodium Chloride 55 ml @ 100 mls/hr Q24H IV 10/08/18 18:00 10/15/18 17:59 10/09/18 18:53 Dextrose (Dextrose 50%) 50 ml PRN PRN IV Hypoglycemia 10/08/18 19:30 11/07/18 19:29 10/08/18 19:41 Loperamide HCl (Imodium) 4 mg TIDPRN PRN ORAL Diarrhea 10/07/18 21:20 11/06/18 21:19 Meropenem 1 gm/ Sodium Chloride 55 ml @ 110 mls/hr Q12H IVPB 10/08/18 16:00 10/13/18 15:59 10/10/18 04:00 Micafungin Sodium 100 mg/Sodium Chloride 110 ml @ 110 mls/hr Q24H IVPB 10/08/18 18:00 10/12/18 17:59 10/09/18 18:53 Norepinephrine Bitartrate 16 mg/ Dextrose 500 ml @ 0 mls/hr Q24H IV 10/07/18 22:00 11/06/18 21:59 10/10/18 02:00 Pantoprazole (Protonix) 40 mg Q12HR IVP 10/07/18 22:00 11/06/18 21:59 10/10/18 09:15 Risperidone (RisperDAL) 0.25 mg QHS ORAL 10/07/18 22:00 10/10/18 21:59 Sodium Bicarbonate 100 ml/Dextrose/ Sodium Chloride 1,100 ml @ 100 mls/hr Q11H IV 10/08/18 13:00 11/07/18 12:59 10/10/18 09:52 Sodium Chloride 500 ml @ 999 mls/hr Q31M PRN IV SBP<90mmHg 10/07/18 21:18 11/06/18 21:17 Triston Toribio MD Oct 10, 2018 15:24
--- NOTE | 2018-10-10 17:05 | Surgery Progress Note ---
Surgery Progress Note Subjective Procedure Performed 1. exploratory laparotomy 2. repair of gastric perforation 3. evacuation of abdominal omental hematoma 4. evacuation of perisplenic abscess 5. omentectomy 6. splenectomy 7. abdominal washout 8. tracheostomy Additional Comments Continues to remain unstable in ICU on vent support with pressors severe anemia this morning left drain with prior maroon colored blood noted Objective Last 24 Hour Vital Signs Date Time Temp Pulse Resp B/P (MAP) Pulse Ox O2 Delivery O2 Flow Rate FiO2 10/10/18 16:00 118 10/10/18 16:00 40 10/10/18 16:00 Mechanical Ventilator Mechanical Ventilator 10/10/18 14:41 120 23 40 40 10/10/18 14:30 120 26 131/72 100 Mechanical Ventilator 40 10/10/18 14:00 120 26 114/66 98 Mechanical Ventilator 40 10/10/18 13:30 120 26 113/61 99 Mechanical Ventilator 40 10/10/18 13:02 125 26 40 40 10/10/18 13:00 129 38 91/56 100 Mechanical Ventilator 40 10/10/18 12:30 119 26 96/54 99 Mechanical Ventilator 40 10/10/18 12:00 98.4 120 27 94/62 100 Mechanical Ventilator 40 10/10/18 12:00 40 10/10/18 12:00 120 10/10/18 12:00 Mechanical Ventilator Mechanical Ventilator 10/10/18 11:30 120 28 105/63 100 Mechanical Ventilator 40 10/10/18 11:00 118 28 102/67 100 Mechanical Ventilator 40 10/10/18 10:46 118 27 40 40 10/10/18 10:30 122 27 99/59 100 Mechanical Ventilator 40 10/10/18 10:00 117 26 93/61 100 Mechanical Ventilator 40 10/10/18 09:30 117 26 98/59 100 Mechanical Ventilator 40 10/10/18 09:15 118 27 100/53 100 Mechanical Ventilator 40 10/10/18 09:00 118 26 40 40 10/10/18 09:00 114 28 109/62 100 Mechanical Ventilator 40 10/10/18 08:45 113 30 117/65 100 Mechanical Ventilator 40 10/10/18 08:30 108 29 73/43 100 Mechanical Ventilator 40 10/10/18 08:15 107 29 128/59 100 Mechanical Ventilator 40 10/10/18 08:00 40 10/10/18 08:00 113 10/10/18 08:00 97.5 112 30 76/44 100 Mechanical Ventilator 40 10/10/18 08:00 Mechanical Ventilator Mechanical Ventilator 10/10/18 07:30 112 35 83/47 100 Mechanical Ventilator 40 10/10/18 07:00 116 32 82/50 99 Mechanical Ventilator 40 10/10/18 06:57 117 36 40 40 10/10/18 06:30 113 30 100/55 100 Mechanical Ventilator 40 10/10/18 06:00 119 35 88/50 100 Mechanical Ventilator 40 10/10/18 05:30 113 30 98/51 100 Mechanical Ventilator 40 10/10/18 05:10 110 35 40 40 10/10/18 05:00 111 30 96/54 100 Mechanical Ventilator 40 10/10/18 04:30 123 20 100/56 100 Mechanical Ventilator 40 10/10/18 04:00 136 10/10/18 04:00 Mechanical Ventilator Mechanical Ventilator 10/10/18 04:00 40 10/10/18 04:00 99.2 124 38 97/55 100 Mechanical Ventilator 40 10/10/18 03:30 118 31 94/62 100 Mechanical Ventilator 40 10/10/18 03:00 126 37 98/57 100 Mechanical Ventilator 40 10/10/18 02:30 131 41 90/51 100 Mechanical Ventilator 40 10/10/18 02:15 120 35 101/60 100 Mechanical Ventilator 40 10/10/18 02:00 125 37 98/58 100 Mechanical Ventilator 40 10/10/18 02:00 97/55 10/10/18 01:30 133 44 93/50 100 Mechanical Ventilator 40 10/10/18 01:03 122 38 40 40 10/10/18 01:00 121 36 103/63 100 Mechanical Ventilator 40 10/10/18 00:30 128 40 99/58 100 Mechanical Ventilator 40 10/10/18 00:00 127 10/10/18 00:00 Mechanical Ventilator Mechanical Ventilator 10/10/18 00:00 99.4 127 39 98/61 100 Mechanical Ventilator 40 10/10/18 00:00 40 10/09/18 23:30 129 44 100/62 100 Mechanical Ventilator 40 10/09/18 23:05 124 39 40 40 10/09/18 23:00 125 39 106/63 100 Mechanical Ventilator 40 10/09/18 22:30 124 37 105/57 100 Mechanical Ventilator 40 10/09/18 22:00 131 44 96/61 100 Mechanical Ventilator 40 10/09/18 21:30 124 43 95/56 100 Mechanical Ventilator 40 10/09/18 21:12 130 45 40 40 10/09/18 21:00 130 45 99/52 100 Mechanical Ventilator 40 10/09/18 20:30 129 42 91/58 100 Mechanical Ventilator 40 10/09/18 20:00 Mechanical Ventilator Mechanical Ventilator 10/09/18 20:00 98.8 132 44 90/53 100 Mechanical Ventilator 40 10/09/18 20:00 133 10/09/18 20:00 40 10/09/18 19:37 128 42 40 40 10/09/18 19:30 125 41 104/62 100 Mechanical Ventilator 40 10/09/18 19:00 129 43 99/68 100 Mechanical Ventilator 40 10/09/18 18:30 133 40 104/69 100 Mechanical Ventilator 40 10/09/18 18:00 132 40 98/70 100 Mechanical Ventilator 40 10/09/18 17:30 132 34 109/71 100 Mechanical Ventilator 40 10/09/18 17:29 128 30 40 40 I&O Intake and Output 10/09/18 10/10/18 19:00 07:00 Intake Total 1951.87 ml 1924.35 ml Output Total 325 ml 420 ml Balance 1626.87 ml 1504.35 ml IV Total 1921.87 ml 1924.35 ml Other 30 ml Output Urine Total 0 ml 0 ml Stool Total 150 ml 300 ml Drainage Total 175 ml 120 ml Dressing: saturated Wound: other Drains: josephine Cardiovascular: RSR Respiratory: decreased breath sounds Abdomen: soft, other, non-distended Extremities: other Laboratory Tests Test 10/10/18 07:00 10/10/18 08:13 10/10/18 10:45 White Blood Count 40.9 K/UL (4.8-10.8) *H Red Blood Count 1.56 M/UL (4.70-6.10) L Hemoglobin 4.8 G/DL (14.2-18.0) Hematocrit 13.9 % (42.0-52.0) #L Mean Corpuscular Volume 89 FL (80-99) Mean Corpuscular Hemoglobin 30.6 PG (27.0-31.0) Mean Corpuscular Hemoglobin Concent 34.4 G/DL (32.0-36.0) Red Cell Distribution Width 13.3 % (11.6-14.8) Platelet Count 142 K/UL (150-450) L Mean Platelet Volume 10.2 FL (6.5-10.1) H Neutrophils (%) (Auto) % (45.0-75.0) Lymphocytes (%) (Auto) % (20.0-45.0) Monocytes (%) (Auto) % (1.0-10.0) Eosinophils (%) (Auto) % (0.0-3.0) Basophils (%) (Auto) % (0.0-2.0) Differential Total Cells Counted 100 Neutrophils % (Manual) 89 % (45-75) H Lymphocytes % (Manual) 5 % (20-45) L Monocytes % (Manual) 2 % (1-10) Eosinophils % (Manual) 0 % (0-3) Basophils % (Manual) 0 % (0-2) Myelocytes % 2 % (0-0) H Band Neutrophils 2 % (0-8) Nucleated Red Blood Cells 1 /100 WBC Platelet Estimate Decreased L Platelet Morphology Normal Polychromasia 2+ Hypochromasia 2+ Sodium Level 133 MMOL/L (136-145) L Potassium Level 4.8 MMOL/L (3.5-5.1) Chloride Level 97 MMOL/L (98-107) L Carbon Dioxide Level 13 MMOL/L (21-32) L Anion Gap 23 mmol/L (5-15) H Blood Urea Nitrogen 53 mg/dL (7-18) H Creatinine 4.7 MG/DL (0.55-1.30) H Estimat Glomerular Filtration Rate 12.8 mL/min (>60) Glucose Level 250 MG/DL (74-106) H Lactic Acid Level 10.20 mmol/L (0.4-2.0) H 8.80 mmol/L (0.66-2.22) H Uric Acid 8.7 MG/DL (2.6-7.2) H Calcium Level 5.8 MG/DL (8.5-10.1) *L Phosphorus Level 9.2 MG/DL (2.5-4.9) H Magnesium Level 1.9 MG/DL (1.8-2.4) Total Bilirubin 2.6 MG/DL (0.2-1.0) H Direct Bilirubin 1.8 MG/DL (0.0-0.3) H Gamma Glutamyl Transpeptidase 109 U/L (5-85) H Aspartate Amino Transf (AST/SGOT) 1308 U/L (15-37) H Alanine Aminotransferase (ALT/SGPT) 962 U/L (12-78) H Alkaline Phosphatase 185 U/L (46-116) H C-Reactive Protein, Quantitative 19.2 mg/dL (0.00-0.90) H Pro-B-Type Natriuretic Peptide 7597 pg/mL (0-125) H Total Protein 4.3 G/DL (6.4-8.2) L Albumin 0.8 G/DL (3.4-5.0) L Globulin 3.5 g/dL Albumin/Globulin Ratio 0.2 (1.0-2.7) L Arterial Blood pH 7.535 (7.350-7.450) Arterial Blood Partial Pressure CO2 14.3 mmHg (35.0-45.0) *L Arterial Blood Partial Pressure O2 140.7 mmHg (75.0-100.0) H Arterial Blood HCO3 11.8 mmol/L (22.0-26.0) *L Arterial Blood Oxygen Saturation 97.7 % (95-100) Arterial Blood Base Excess -10.3 (-2-2) *L Harvey Test Positive Assessment Post-op Diagnosis 1. large omental perigastric hematoma 2. malpositioned PEG tube with gastric perforation 3. large perisplenic abscess 4. abdominal peritonitis 5. respiratory insufficiency requiring prolonged ventilatory support Plan Problems: (1) Decubitus skin ulcer Assessment & Plan: Pt presents with multiple skin issues. Intact serous blister noted to lateral R abd (L)2.6cm x (W)2.2cm. Intact serous blister lateral R abd (L)0.7cm x (W)1.4cm. 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 Erythema with induration along borders. Buttocks without evidence of skin breakdown. Both heels are dry and easily blanchable. Tx.Plan: Cleanse wound R Hip with Saline.Recommend Silvasorb gel .Apply Cavilon Skin Barrier periwound.Cover with Optifoam drsg every 3 Days and prn. Apply Cavilon Skin Barrier to Blisters (2) R abd. Cover with Optifoam drsg.Change every 7 days and PRN. Apply Moisture barrier to sacrum .Cover with Optifoam .Change every 7 days and prn. Air Fluidized mattress. Apply Cavilon to both heels .Off-load heels with pillow. (2) Septic shock Assessment & Plan: leukocytosis anemia. stable left drain that was somewhat dislodged prior is now draining dark blood with clots on pressors. HD unstable unfortunately too high risk for surgery at this time. etiology of sudden bleed unknown. does not look like actively bleeding at this time. given recent CT findings concerns for possible gastric breakdown. prognosis very guarded likely transient bleed from partially dislodged drain. now without active bleeding Continues to drain blood from drain with unknown etiology still too unstable Significant coagulopathy Greater than 50% drop in platelets potentially in DIC Transfuse FFP PRBC will monitor trend h/h abx transfuse prbc (3) Protein-calorie malnutrition, severe Assessment & Plan: will need nutritional optimization to recover and heal wounds nutrition consult Isreal Lynne Oct 10, 2018 17:05
[2018-10-10] MEDS: DAPTOmycin 450 MG in NS 55 ML IV SCH (17:54)
[2018-10-10] MEDS: Micafungin 100 MG in NS 110 ML IVPB SCH (17:55)
--- NOTE | 2018-10-10 20:00 | Progress Note ---
DATE: 10/10/2018 SUBJECTIVE: This is a 62-year-old male with septic shock. He is confused, disorganized, still mood labile . MENTAL STATUS EXAMINATION: This is a 62-year-old male. His appearance is disheveled. Attitude, irritable and agitated. Insight and judgment is poor. DIAGNOSIS: Paranoid schizophrenia. PLAN: Continue treatment with Risperdal 0.25 mg at bedtime. Provided him with 20 minutes of behavioral management. Chart reviewed. Virgie Mcdermott M.D. DR: BE JOB#: [id number] CC:
--- NOTE | 2018-10-10 20:15 | Progress Note ---
DATE: 10/10/2018 SUBJECTIVE: The patient was actually seen and assessed in ICU, but he is still confused and disorganized. He has altered mental status and not really able to respond to me verbally, but he still has some confusion, psychomotor agitation, decline in cognition below his baseline. MENTAL STATUS EXAMINATION: He is a 62-year-old male. Appearance is disheveled. Attitude, irritable and agitated. Insight and judgment is poor. No signs of any suicidal or homicidal thoughts. DIAGNOSIS: Paranoid schizophrenia. PLAN: Treat him with Risperdal 0.25 mg nightly for psychosis. Seen and assessed in ICU. Chart was reviewed. Discussed with staff. Virgie Mcdermott M.D. DR: Reggie JOB#: [id number] CC:
[2018-10-10] MEDS: Dyna-Hex 2% Top Sol 2oz TOPIC SCH (20:23)
[2018-10-11] VITALS (57 sets, daily range): BP systolic 85–145; BP diastolic 46–91
[2018-10-11] MEDS: Meropenem 1 GM in NS 55 ML IVPB SCH ×2 (05:13→16:10)
[2018-10-11 06:34] LABS: HEMATOCRIT 23.7 % (42.0-52.0); MEAN CORPUSCULAR VOLUME 87 FL (80-99); PLATELET COUNT 103 K/UL (150-450); RED BLOOD COUNT 2.72 M/UL (4.70-6.10); RED CELL DISTRIBUTION WIDTH 13.3 % (11.6-14.8)
[2018-10-11 06:42] LABS: INR 1.4 (0.9-1.1)
[2018-10-11 06:44] LABS: WHITE BLOOD COUNT 25.5 K/UL (4.8-10.8)
[2018-10-11 06:45] LABS: HEMOGLOBIN 8.5 G/DL (14.2-18.0)
[2018-10-11 06:53] LABS: ALANINE AMINOTRANSFERASE 716 U/L (12-78); ALBUMIN 1.3 G/DL (3.4-5.0); ALBUMIN/GLOBULIN RATIO 0.4 (1.0-2.7); ALKALINE PHOSPHATASE 183 U/L (46-116); ANION GAP 16 mmol/L (5-15); ASPARTATE AMINO TRANSFERASE 771 U/L (15-37); BILIRUBIN,TOTAL 4.7 MG/DL (0.2-1.0); BLOOD UREA NITROGEN 61 mg/dL (7-18); CARBON DIOXIDE 20 MMOL/L (21-32); CHLORIDE 98 MMOL/L (98-107); POTASSIUM 3.8 MMOL/L (3.5-5.1); SODIUM 134 MMOL/L (136-145)
[2018-10-11 07:00] LABS: PHOSPHORUS 9.4 MG/DL (2.5-4.9)
[2018-10-11 07:14] LABS: CALCIUM 5.8 MG/DL (8.5-10.1)
[2018-10-11 07:15] LABS: BILIRUBIN,DIRECT 3.4 MG/DL (0.0-0.3)
--- NOTE | 2018-10-11 09:05 | General Progress Note ---
Assessment/Plan Problem List: (1) UTI (urinary tract infection) ICD Codes: N39.0 - Urinary tract infection, site not specified SNOMED: 26093814 (2) Renal failure ICD Codes: N19 - Unspecified kidney failure SNOMED: 78429991 (3) Anemia ICD Codes: D64.9 - Anemia, unspecified SNOMED: 720252151 (4) Acute respiratory failure ICD Codes: J96.00 - Acute respiratory failure, unspecified whether with hypoxia or hypercapnia SNOMED: 20733270 (5) Pneumonia ICD Codes: J18.9 - Pneumonia, unspecified organism SNOMED: 494883970 (6) Septic shock ICD Codes: A41.9 - Sepsis, unspecified organism; R65.21 - Severe sepsis with septic shock SNOMED: 04376343 (7) ATN (acute tubular necrosis) ICD Codes: N17.0 - Acute kidney failure with tubular necrosis SNOMED: 67524536 Status: unchanged Assessment/Plan vent abx wound care neph f/u gi eval, tpn cbc bmp am pressor support transfuse prn Subjective Constitutional: Reports: weakness Allergies: Coded Allergies: No Known Allergies (Unverified , 08/14/18) All Systems: reviewed and negative except above Subjective trach vent altered lethargic in icu on pressor Objective Last 24 Hour Vital Signs Date Time Temp Pulse Resp B/P (MAP) Pulse Ox O2 Delivery O2 Flow Rate FiO2 10/11/18 06:45 81 16 35 10/11/18 06:30 99 18 109/77 99 Mechanical Ventilator 40 10/11/18 06:00 98 12 111/70 Mechanical Ventilator 40 10/11/18 06:00 109/77 10/11/18 05:30 96 15 124/77 100 Mechanical Ventilator 40 10/11/18 05:21 101 20 35 40 10/11/18 05:00 109 13 85/59 100 Mechanical Ventilator 40 10/11/18 05:00 95/64 10/11/18 04:30 108 14 129/46 98 Mechanical Ventilator 40 10/11/18 04:15 100 18 137/89 100 Mechanical Ventilator 40 10/11/18 04:00 99 10/11/18 04:00 Mechanical Ventilator Mechanical Ventilator 10/11/18 04:00 98.5 100 19 137/83 99 Mechanical Ventilator 40 10/11/18 04:00 137/89 10/11/18 04:00 40 10/11/18 03:45 101 16 135/84 100 Mechanical Ventilator 40 10/11/18 03:30 100 17 131/85 100 Mechanical Ventilator 40 10/11/18 03:15 103 17 127/87 100 Mechanical Ventilator 40 10/11/18 03:00 106 21 129/84 99 Mechanical Ventilator 40 10/11/18 03:00 127/87 10/11/18 02:52 112 20 35 40 10/11/18 02:45 104 28 128/83 100 Mechanical Ventilator 40 10/11/18 02:30 101 17 139/82 100 Mechanical Ventilator 40 10/11/18 02:15 104 20 132/84 100 Mechanical Ventilator 40 10/11/18 02:00 103 18 140/84 100 Mechanical Ventilator 40 10/11/18 02:00 140/84 10/11/18 01:45 101 19 145/91 100 Mechanical Ventilator 40 10/11/18 01:30 101 20 141/88 100 Mechanical Ventilator 40 10/11/18 01:15 106 20 135/81 100 Mechanical Ventilator 40 10/11/18 01:08 108 20 35 40 10/11/18 01:00 105 20 143/82 100 Mechanical Ventilator 40 10/11/18 01:00 135/81 10/11/18 00:45 104 18 120/82 100 Mechanical Ventilator 40 10/11/18 00:30 102 16 130/83 100 Mechanical Ventilator 40 10/11/18 00:15 108 19 125/85 100 Mechanical Ventilator 40 10/11/18 00:00 110 10/11/18 00:00 98.1 109 17 143/84 100 Mechanical Ventilator 40 10/11/18 00:00 40 10/11/18 00:00 125/85 10/11/18 00:00 Mechanical Ventilator Mechanical Ventilator 10/10/18 23:45 109 16 139/87 97 Mechanical Ventilator 40 10/10/18 23:30 107 18 129/84 Mechanical Ventilator 40 10/10/18 23:16 113 20 35 40 10/10/18 23:15 111 18 137/83 99 Mechanical Ventilator 40 10/10/18 23:00 137/83 10/10/18 23:00 112 19 127/80 100 Mechanical Ventilator 40 10/10/18 22:45 111 26 122/89 100 Mechanical Ventilator 40 10/10/18 22:30 112 26 113/81 100 Mechanical Ventilator 40 10/10/18 22:15 114 20 110/75 100 Mechanical Ventilator 40 10/10/18 22:08 117 23 35 40 10/10/18 22:00 113 25 112/79 100 Mechanical Ventilator 40 10/10/18 22:00 110/75 10/10/18 21:45 118 20 113/74 100 Mechanical Ventilator 40 10/10/18 21:30 119 20 105/76 100 Mechanical Ventilator 40 10/10/18 21:15 121 21 97/70 100 Mechanical Ventilator 40 10/10/18 21:00 120 20 106/77 100 Mechanical Ventilator 40 10/10/18 21:00 97/70 10/10/18 20:45 121 25 101/67 100 Mechanical Ventilator 40 10/10/18 20:30 124 22 103/68 100 Mechanical Ventilator 40 10/10/18 20:15 126 26 130/84 100 Mechanical Ventilator 40 10/10/18 20:00 114 10/10/18 20:00 Mechanical Ventilator Mechanical Ventilator 10/10/18 20:00 40 10/10/18 20:00 98.5 122 22 135/87 100 Mechanical Ventilator 40 10/10/18 20:00 130/84 10/10/18 19:45 118 21 136/83 100 Mechanical Ventilator 40 10/10/18 19:30 116 20 134/84 100 Mechanical Ventilator 40 10/10/18 19:00 113 19 35 40 10/10/18 19:00 114 19 130/92 100 Mechanical Ventilator 40 10/10/18 19:00 130/92 10/10/18 18:30 98.9 115 23 110/81 100 Mechanical Ventilator 40 10/10/18 18:30 110/81 10/10/18 18:00 121 22 108/70 100 Mechanical Ventilator 40 10/10/18 18:00 108/70 10/10/18 17:55 123/78 10/10/18 17:30 128 25 141/92 100 Mechanical Ventilator 40 10/10/18 17:28 122 24 40 40 10/10/18 17:00 139/83 10/10/18 17:00 121 21 137/87 100 Mechanical Ventilator 40 10/10/18 16:30 118 23 117/85 100 Mechanical Ventilator 40 10/10/18 16:00 98.0 120 23 121/81 100 Mechanical Ventilator 40 10/10/18 16:00 118 10/10/18 16:00 40 10/10/18 16:00 112/87 10/10/18 16:00 Mechanical Ventilator Mechanical Ventilator 10/10/18 15:30 117 24 132/80 100 Mechanical Ventilator 40 10/10/18 15:00 118 23 126/80 100 Mechanical Ventilator 40 10/10/18 15:00 135/81 10/10/18 14:41 120 23 40 40 10/10/18 14:30 120 26 131/72 100 Mechanical Ventilator 40 10/10/18 14:00 100/68 10/10/18 14:00 120 26 114/66 98 Mechanical Ventilator 40 10/10/18 13:30 120 26 113/61 99 Mechanical Ventilator 40 10/10/18 13:02 125 26 40 40 10/10/18 13:00 129 38 91/56 100 Mechanical Ventilator 40 10/10/18 13:00 99/56 10/10/18 12:30 119 26 96/54 99 Mechanical Ventilator 40 10/10/18 12:00 101/64 10/10/18 12:00 98.4 120 27 94/62 100 Mechanical Ventilator 40 10/10/18 12:00 40 10/10/18 12:00 120 10/10/18 12:00 Mechanical Ventilator Mechanical Ventilator 10/10/18 11:30 120 28 105/63 100 Mechanical Ventilator 40 10/10/18 11:00 118 28 102/67 100 Mechanical Ventilator 40 10/10/18 11:00 109/63 10/10/18 10:46 118 27 40 40 10/10/18 10:30 122 27 99/59 100 Mechanical Ventilator 40 10/10/18 10:00 117 26 93/61 100 Mechanical Ventilator 40 10/10/18 10:00 109/59 10/10/18 09:30 117 26 98/59 100 Mechanical Ventilator 40 10/10/18 09:15 118 27 100/53 100 Mechanical Ventilator 40 Intake and Output 10/10/18 10/11/18 18:59 06:59 Intake Total 2422.50 ml 1608.725 ml Output Total 570 ml 690 ml Balance 1852.50 ml 918.725 ml IV Total 1862.50 ml 1008.725 ml Blood Product 500 ml 600 ml Other 60 ml Output Urine Total 0 ml 50 ml Stool Total 150 ml 200 ml Drainage Total 420 ml 440 ml Laboratory Tests 10/10/18 10:45: Lactic Acid Level 8.80H 10/10/18 19:00: Lactic Acid Level 6.30H 10/11/18 06:04: Lactic Acid Level 5.30H, White Blood Count 25.5*H, Red Blood Count 2.72L, Hemoglobin 8.5#L, Hematocrit 23.7#L, Mean Corpuscular Volume 87, Mean Corpuscular Hemoglobin 31.2H, Mean Corpuscular Hemoglobin Concent 35.9, Red Cell Distribution Width 13.3, Platelet Count 103L, Mean Platelet Volume 12.9H, Neutrophils (%) (Auto) , Lymphocytes (%) (Auto) , Monocytes (%) (Auto) , Eosinophils (%) (Auto) , Basophils (%) (Auto) , Differential Total Cells Counted 100, Neutrophils % (Manual) 75, Lymphocytes % (Manual) 11L, Monocytes % (Manual) 6, Eosinophils % (Manual) 0, Basophils % (Manual) 0, Myelocytes % 2H, Band Neutrophils 6, Nucleated Red Blood Cells 9, Platelet Estimate DecreasedL, Platelet Morphology Normal, Polychromasia 2+, Prothrombin Time 14.1H, Prothromb Time International Ratio 1.4H, Activated Partial Thromboplast Time 39H, Sodium Level 134L, Potassium Level 3.8, Chloride Level 98, Carbon Dioxide Level 20L, Anion Gap 16H, Blood Urea Nitrogen 61H, Creatinine 5.0H, Estimat Glomerular Filtration Rate 11.9, Glucose Level 264H, Calcium Level 5.8*L, Phosphorus Level 9.4H, Magnesium Level 2.0, Total Bilirubin 4.7H, Direct Bilirubin 3.4H, Aspartate Amino Transf (AST/SGOT) 771H, Alanine Aminotransferase (ALT/SGPT) 716H , Alkaline Phosphatase 183H, Total Protein 5.0L, Albumin 1.3L, Globulin 3.7, Albumin/Globulin Ratio 0.4L 10/11/18 08:49: Arterial Blood pH 7.510H, Arterial Blood Partial Pressure CO2 25.9L, Arterial Blood Partial Pressure O2 91.3, Arterial Blood HCO3 20.2L, Arterial Blood Oxygen Saturation 95.9, Arterial Blood Base Excess -2.2L, Harvey Test Positive Height (Feet): 5 Height (Inches): 5.00 Weight (Pounds): 152 General Appearance: lethargic EENT: normal ENT inspection Neck: normal alignment Cardiovascular: normal peripheral pulses, normal rate, regular rhythm Respiratory/Chest: chest wall non-tender, decreased breath sounds Abdomen: soft, hypoactive bowel sounds Extremities: normal inspection Edema: no edema noted Arm (L), no edema noted Arm (R), no edema noted Leg (L), no edema noted Leg (R), no edema noted Pedal (L), no edema noted Pedal (R), no edema noted Generalized Neurologic: motor weakness Skin: normal pigmentation, warm/dry Jasmeet Reynoso DO Oct 11, 2018 09:05
[2018-10-11] MEDS: Pantoprazole Inj IVP SCH ×2 (09:43→20:26)
[2018-10-11] MEDS: Sodium Bicarbonate 100 ML in D5 1/2NS 1,000 ML IV SCH (09:43)
--- NOTE | 2018-10-11 10:00 | Progress Note ---
DATE: 10/11/2018 SUBJECTIVE: This is a 62-year-old male patient with septic shock, but he has confusion, disorganized thought process, and mood lability worsened by stress of his medical illness. That is why, his attending has requested daily psychiatric consultation. MENTAL STATUS EXAMINATION: This is a 62-year-old male. Appearance is disheveled. Attitude, irritable and agitated. Affect, guarded and restricted. Intellect poor. Mood, depressed and anxious. Motor activity, psychomotor agitation. Attention span is poor. Orientation x2. Speech is pressured. Thought process, disorganized and illogical. Thought content, auditory hallucinations and paranoid delusions. Insight and judgment is poor. DIAGNOSIS: Paranoid schizophrenia. PLAN: I am going to continue to treat this patient with Risperdal 0.25 mg at bedtime for psychosis and 20 minutes of behavioral management provided. Chart reviewed. Virgie Mcdermott M.D. DR: JAYSON JOB#: [id number] CC:
--- NOTE | 2018-10-11 10:03 | Diagnostic Imaging Report ---
EXAM: XR Chest, 1 View CLINICAL HISTORY: DYSPNEA TECHNIQUE: Frontal view of the chest. COMPARISON: Chest x-ray dated 10/10/18 FINDINGS: Lungs: Subsegmental atelectasis versus infiltrates in bilateral lung bases. Mildly increased interstitial markings, unchanged. Pleural space: Bilateral layering pleural effusions, left greater than right. Heart: The cardiac silhouette is obscured. Mediastinum: Unremarkable. Bones/joints: Unremarkable. Tubes, lines and devices: Stable and expected positioning of the tracheostomy tube. Telemetry leads overlie the thorax. IMPRESSION: 1. Bilateral layering pleural effusions, left greater than right. 2. Subsegmental atelectasis versus infiltrates in bilateral lung bases.
--- NOTE | 2018-10-11 11:26 | General Progress Note ---
Assessment/Plan Problem List: (1) Decubitus skin ulcer ICD Codes: L89.90 - Pressure ulcer of unspecified site, unspecified stage SNOMED: 098006446 (2) Anemia ICD Codes: D64.9 - Anemia, unspecified SNOMED: 710535305 (3) Acute respiratory failure ICD Codes: J96.00 - Acute respiratory failure, unspecified whether with hypoxia or hypercapnia SNOMED: 08570420 (4) Pneumonia ICD Codes: J18.9 - Pneumonia, unspecified organism SNOMED: 263389673 Assessment/Plan REOPERATIVE DIAGNOSES: 1. Malpositioned feeding tube with leak and peritonitis/perforation. 2. Respiratory insufficiency requiring prolonged ventilatory support. POSTOPERATIVE DIAGNOSES: 1. Large omental perigastric hematoma. 2. Malpositioned PEG tube with gastric perforation. 3. Large perisplenic abscess. 4. Abdominal peritonitis. 5. Respiratory insufficiency requiring prolonged ventilatory support. OPERATION PERFORMED: 1. Exploratory laparotomy. 2. Repair of gastric perforation. 3. Evacuation of abdominal omental / lesser sac hematoma. 4. Evacuation of perisplenic hematoma/abscess. 5. Omentectomy. 6. Splenectomy. 7. Abdominal washout. 8. Tracheostomy. RECOMMENDATIONS: fu surgical recommendations prn transfusion ppi off TPN now>>resume when ok with ID poor prognosis fu labs Subjective ROS Limited/Unobtainable: No Allergies: Coded Allergies: No Known Allergies (Unverified , 08/14/18) Objective Last 24 Hour Vital Signs Date Time Temp Pulse Resp B/P (MAP) Pulse Ox O2 Delivery O2 Flow Rate FiO2 10/11/18 11:11 63 14 35 10/11/18 11:00 97 15 112/84 100 Mechanical Ventilator 35 10/11/18 11:00 112/84 10/11/18 10:30 108 14 108/80 99 Mechanical Ventilator 35 10/11/18 10:00 101 16 119/79 99 Mechanical Ventilator 35 10/11/18 10:00 119/79 10/11/18 09:30 94 16 112/74 99 Mechanical Ventilator 35 10/11/18 09:00 97 14 118/77 98 Mechanical Ventilator 35 10/11/18 09:00 118/77 10/11/18 08:31 94 16 35 10/11/18 08:30 96 16 116/74 99 Mechanical Ventilator 35 10/11/18 08:00 96 10/11/18 08:00 Mechanical Ventilator Mechanical Ventilator 10/11/18 08:00 122/78 10/11/18 08:00 97.1 98 16 122/78 100 Mechanical Ventilator 35 10/11/18 08:00 40 10/11/18 07:30 96 14 119/75 100 Mechanical Ventilator 35 10/11/18 07:00 120/76 10/11/18 07:00 96 16 120/76 100 Mechanical Ventilator 35 10/11/18 06:45 81 16 35 10/11/18 06:30 99 18 109/77 99 Mechanical Ventilator 40 10/11/18 06:00 98 12 111/70 Mechanical Ventilator 40 10/11/18 06:00 109/77 10/11/18 05:30 96 15 124/77 100 Mechanical Ventilator 40 10/11/18 05:21 101 20 35 40 10/11/18 05:00 109 13 85/59 100 Mechanical Ventilator 40 10/11/18 05:00 95/64 10/11/18 04:30 108 14 129/46 98 Mechanical Ventilator 40 10/11/18 04:15 100 18 137/89 100 Mechanical Ventilator 40 10/11/18 04:00 99 10/11/18 04:00 Mechanical Ventilator Mechanical Ventilator 10/11/18 04:00 98.5 100 19 137/83 99 Mechanical Ventilator 40 10/11/18 04:00 137/89 10/11/18 04:00 40 10/11/18 03:45 101 16 135/84 100 Mechanical Ventilator 40 10/11/18 03:30 100 17 131/85 100 Mechanical Ventilator 40 10/11/18 03:15 103 17 127/87 100 Mechanical Ventilator 40 10/11/18 03:00 106 21 129/84 99 Mechanical Ventilator 40 10/11/18 03:00 127/87 10/11/18 02:52 112 20 35 40 10/11/18 02:45 104 28 128/83 100 Mechanical Ventilator 40 10/11/18 02:30 101 17 139/82 100 Mechanical Ventilator 40 10/11/18 02:15 104 20 132/84 100 Mechanical Ventilator 40 10/11/18 02:00 103 18 140/84 100 Mechanical Ventilator 40 10/11/18 02:00 140/84 10/11/18 01:45 101 19 145/91 100 Mechanical Ventilator 40 10/11/18 01:30 101 20 141/88 100 Mechanical Ventilator 40 10/11/18 01:15 106 20 135/81 100 Mechanical Ventilator 40 10/11/18 01:08 108 20 35 40 10/11/18 01:00 105 20 143/82 100 Mechanical Ventilator 40 10/11/18 01:00 135/81 10/11/18 00:45 104 18 120/82 100 Mechanical Ventilator 40 10/11/18 00:30 102 16 130/83 100 Mechanical Ventilator 40 10/11/18 00:15 108 19 125/85 100 Mechanical Ventilator 40 10/11/18 00:00 110 10/11/18 00:00 98.1 109 17 143/84 100 Mechanical Ventilator 40 10/11/18 00:00 40 10/11/18 00:00 125/85 10/11/18 00:00 Mechanical Ventilator Mechanical Ventilator 10/10/18 23:45 109 16 139/87 97 Mechanical Ventilator 40 10/10/18 23:30 107 18 129/84 Mechanical Ventilator 40 10/10/18 23:16 113 20 35 40 10/10/18 23:15 111 18 137/83 99 Mechanical Ventilator 40 10/10/18 23:00 137/83 10/10/18 23:00 112 19 127/80 100 Mechanical Ventilator 40 10/10/18 22:45 111 26 122/89 100 Mechanical Ventilator 40 10/10/18 22:30 112 26 113/81 100 Mechanical Ventilator 40 10/10/18 22:15 114 20 110/75 100 Mechanical Ventilator 40 10/10/18 22:08 117 23 35 40 10/10/18 22:00 113 25 112/79 100 Mechanical Ventilator 40 10/10/18 22:00 110/75 10/10/18 21:45 118 20 113/74 100 Mechanical Ventilator 40 10/10/18 21:30 119 20 105/76 100 Mechanical Ventilator 40 10/10/18 21:15 121 21 97/70 100 Mechanical Ventilator 40 10/10/18 21:00 120 20 106/77 100 Mechanical Ventilator 40 10/10/18 21:00 97/70 10/10/18 20:45 121 25 101/67 100 Mechanical Ventilator 40 10/10/18 20:30 124 22 103/68 100 Mechanical Ventilator 40 10/10/18 20:15 126 26 130/84 100 Mechanical Ventilator 40 10/10/18 20:00 114 10/10/18 20:00 Mechanical Ventilator Mechanical Ventilator 10/10/18 20:00 40 10/10/18 20:00 98.5 122 22 135/87 100 Mechanical Ventilator 40 10/10/18 20:00 130/84 10/10/18 19:45 118 21 136/83 100 Mechanical Ventilator 40 10/10/18 19:30 116 20 134/84 100 Mechanical Ventilator 40 10/10/18 19:00 113 19 35 40 10/10/18 19:00 114 19 130/92 100 Mechanical Ventilator 40 10/10/18 19:00 130/92 10/10/18 18:30 98.9 115 23 110/81 100 Mechanical Ventilator 40 10/10/18 18:30 110/81 10/10/18 18:00 121 22 108/70 100 Mechanical Ventilator 40 10/10/18 18:00 108/70 10/10/18 17:55 123/78 10/10/18 17:30 128 25 141/92 100 Mechanical Ventilator 40 10/10/18 17:28 122 24 40 40 10/10/18 17:00 139/83 10/10/18 17:00 121 21 137/87 100 Mechanical Ventilator 40 10/10/18 16:30 118 23 117/85 100 Mechanical Ventilator 40 10/10/18 16:00 98.0 120 23 121/81 100 Mechanical Ventilator 40 10/10/18 16:00 118 10/10/18 16:00 40 10/10/18 16:00 112/87 10/10/18 16:00 Mechanical Ventilator Mechanical Ventilator 10/10/18 15:30 117 24 132/80 100 Mechanical Ventilator 40 10/10/18 15:00 118 23 126/80 100 Mechanical Ventilator 40 10/10/18 15:00 135/81 10/10/18 14:41 120 23 40 40 10/10/18 14:30 120 26 131/72 100 Mechanical Ventilator 40 10/10/18 14:00 100/68 10/10/18 14:00 120 26 114/66 98 Mechanical Ventilator 40 10/10/18 13:30 120 26 113/61 99 Mechanical Ventilator 40 10/10/18 13:02 125 26 40 40 10/10/18 13:00 129 38 91/56 100 Mechanical Ventilator 40 10/10/18 13:00 99/56 10/10/18 12:30 119 26 96/54 99 Mechanical Ventilator 40 10/10/18 12:00 101/64 10/10/18 12:00 98.4 120 27 94/62 100 Mechanical Ventilator 40 10/10/18 12:00 40 10/10/18 12:00 120 10/10/18 12:00 Mechanical Ventilator Mechanical Ventilator 10/10/18 11:30 120 28 105/63 100 Mechanical Ventilator 40 Intake and Output 10/10/18 10/11/18 18:59 06:59 Intake Total 2422.50 ml 1608.725 ml Output Total 570 ml 690 ml Balance 1852.50 ml 918.725 ml IV Total 1862.50 ml 1008.725 ml Blood Product 500 ml 600 ml Other 60 ml Output Urine Total 0 ml 50 ml Stool Total 150 ml 200 ml Drainage Total 420 ml 440 ml Laboratory Tests 10/10/18 19:00: Lactic Acid Level 6.30H 10/11/18 06:04: Lactic Acid Level 5.30H, White Blood Count 25.5*H, Red Blood Count 2.72L, Hemoglobin 8.5#L, Hematocrit 23.7#L, Mean Corpuscular Volume 87, Mean Corpuscular Hemoglobin 31.2H, Mean Corpuscular Hemoglobin Concent 35.9, Red Cell Distribution Width 13.3, Platelet Count 103L, Mean Platelet Volume 12.9H, Neutrophils (%) (Auto) , Lymphocytes (%) (Auto) , Monocytes (%) (Auto) , Eosinophils (%) (Auto) , Basophils (%) (Auto) , Differential Total Cells Counted 100, Neutrophils % (Manual) 75, Lymphocytes % (Manual) 11L, Monocytes % (Manual) 6, Eosinophils % (Manual) 0, Basophils % (Manual) 0, Myelocytes % 2H, Band Neutrophils 6, Nucleated Red Blood Cells 9, Platelet Estimate DecreasedL, Platelet Morphology Normal, Polychromasia 2+, Prothrombin Time 14.1H, Prothromb Time International Ratio 1.4H, Activated Partial Thromboplast Time 39H, Sodium Level 134L, Potassium Level 3.8, Chloride Level 98, Carbon Dioxide Level 20L, Anion Gap 16H, Blood Urea Nitrogen 61H, Creatinine 5.0H, Estimat Glomerular Filtration Rate 11.9, Glucose Level 264H, Calcium Level 5.8*L, Phosphorus Level 9.4H, Magnesium Level 2.0, Total Bilirubin 4.7H, Direct Bilirubin 3.4H, Aspartate Amino Transf (AST/SGOT) 771H, Alanine Aminotransferase (ALT/SGPT) 716H , Alkaline Phosphatase 183H, Total Protein 5.0L, Albumin 1.3L, Globulin 3.7, Albumin/Globulin Ratio 0.4L 10/11/18 08:49: Arterial Blood pH 7.510H, Arterial Blood Partial Pressure CO2 25.9L, Arterial Blood Partial Pressure O2 91.3, Arterial Blood HCO3 20.2L, Arterial Blood Oxygen Saturation 95.9, Arterial Blood Base Excess -2.2L, Harvey Test Positive Height (Feet): 5 Height (Inches): 5.00 Weight (Pounds): 152 General Appearance: lethargic EENT: normal ENT inspection Neck: supple Cardiovascular: normal rate Respiratory/Chest: decreased breath sounds Abdomen: other - post surgical Extremities: non-tender Arthur Horton MD Oct 11, 2018 11:26
[2018-10-11] MEDS ORDERED: Tubing Blood Filter IV ONE ×2 (11:37→11:48)
[2018-10-11] MEDS ORDERED: NS 275ml ONE ×2 (11:37→11:48)
--- NOTE | 2018-10-11 12:33 | Pulmonolgy Critical Care Note ---
Critical Care - Asmt/Plan Problems: (1) Septic shock (2) Acute respiratory failure (3) ATN (acute tubular necrosis) (4) Metabolic acidosis (5) Gastric rupture Respiratory: monitor respiratory rate, adjust FIO2, CXR Cardiac: continue to monitor HR/BP Renal: F/U I&O Infectious Disease: check cultures Gastrointestinal: continue feedings/current rate Endocrine: monitor blood sugar, check TSH Hematologic: monitor H/H, transfuse if hgb<8.5 Neurologic: PRN Ativan, PRN Morphine, keep patient comfortable Prophylaxis: Protonix, Heparin Time Spent (Minutes): 40 Notes Reviewed: breaker layer, cardio Discussed with: nurses Critical Care - Objective Last 24 Hour Vital Signs Date Time Temp Pulse Resp B/P (MAP) Pulse Ox O2 Delivery O2 Flow Rate FiO2 10/11/18 12:00 97.9 99 16 118/80 96 Mechanical Ventilator 35 10/11/18 12:00 40 10/11/18 12:00 Mechanical Ventilator Mechanical Ventilator 10/11/18 12:00 118/80 10/11/18 12:00 95 10/11/18 11:30 95 15 109/82 100 Mechanical Ventilator 35 10/11/18 11:11 63 14 35 10/11/18 11:00 97 15 112/84 100 Mechanical Ventilator 35 10/11/18 11:00 112/84 10/11/18 10:30 108 14 108/80 99 Mechanical Ventilator 35 10/11/18 10:00 101 16 119/79 99 Mechanical Ventilator 35 10/11/18 10:00 119/79 10/11/18 09:30 94 16 112/74 99 Mechanical Ventilator 35 10/11/18 09:00 97 14 118/77 98 Mechanical Ventilator 35 10/11/18 09:00 118/77 10/11/18 08:31 94 16 35 10/11/18 08:30 96 16 116/74 99 Mechanical Ventilator 35 10/11/18 08:00 96 10/11/18 08:00 Mechanical Ventilator Mechanical Ventilator 10/11/18 08:00 122/78 10/11/18 08:00 97.1 98 16 122/78 100 Mechanical Ventilator 35 10/11/18 08:00 40 10/11/18 07:30 96 14 119/75 100 Mechanical Ventilator 35 10/11/18 07:00 120/76 10/11/18 07:00 96 16 120/76 100 Mechanical Ventilator 35 10/11/18 06:45 81 16 35 10/11/18 06:30 99 18 109/77 99 Mechanical Ventilator 40 10/11/18 06:00 98 12 111/70 Mechanical Ventilator 40 10/11/18 06:00 109/77 10/11/18 05:30 96 15 124/77 100 Mechanical Ventilator 40 10/11/18 05:21 101 20 35 40 10/11/18 05:00 109 13 85/59 100 Mechanical Ventilator 40 10/11/18 05:00 95/64 10/11/18 04:30 108 14 129/46 98 Mechanical Ventilator 40 10/11/18 04:15 100 18 137/89 100 Mechanical Ventilator 40 10/11/18 04:00 99 10/11/18 04:00 Mechanical Ventilator Mechanical Ventilator 10/11/18 04:00 98.5 100 19 137/83 99 Mechanical Ventilator 40 10/11/18 04:00 137/89 10/11/18 04:00 40 10/11/18 03:45 101 16 135/84 100 Mechanical Ventilator 40 10/11/18 03:30 100 17 131/85 100 Mechanical Ventilator 40 10/11/18 03:15 103 17 127/87 100 Mechanical Ventilator 40 10/11/18 03:00 106 21 129/84 99 Mechanical Ventilator 40 10/11/18 03:00 127/87 10/11/18 02:52 112 20 35 40 10/11/18 02:45 104 28 128/83 100 Mechanical Ventilator 40 10/11/18 02:30 101 17 139/82 100 Mechanical Ventilator 40 10/11/18 02:15 104 20 132/84 100 Mechanical Ventilator 40 10/11/18 02:00 103 18 140/84 100 Mechanical Ventilator 40 10/11/18 02:00 140/84 10/11/18 01:45 101 19 145/91 100 Mechanical Ventilator 40 10/11/18 01:30 101 20 141/88 100 Mechanical Ventilator 40 10/11/18 01:15 106 20 135/81 100 Mechanical Ventilator 40 10/11/18 01:08 108 20 35 40 10/11/18 01:00 105 20 143/82 100 Mechanical Ventilator 40 10/11/18 01:00 135/81 10/11/18 00:45 104 18 120/82 100 Mechanical Ventilator 40 10/11/18 00:30 102 16 130/83 100 Mechanical Ventilator 40 10/11/18 00:15 108 19 125/85 100 Mechanical Ventilator 40 10/11/18 00:00 110 10/11/18 00:00 98.1 109 17 143/84 100 Mechanical Ventilator 40 10/11/18 00:00 40 10/11/18 00:00 125/85 10/11/18 00:00 Mechanical Ventilator Mechanical Ventilator 10/10/18 23:45 109 16 139/87 97 Mechanical Ventilator 40 10/10/18 23:30 107 18 129/84 Mechanical Ventilator 40 10/10/18 23:16 113 20 35 40 10/10/18 23:15 111 18 137/83 99 Mechanical Ventilator 40 10/10/18 23:00 137/83 10/10/18 23:00 112 19 127/80 100 Mechanical Ventilator 40 10/10/18 22:45 111 26 122/89 100 Mechanical Ventilator 40 10/10/18 22:30 112 26 113/81 100 Mechanical Ventilator 40 10/10/18 22:15 114 20 110/75 100 Mechanical Ventilator 40 10/10/18 22:08 117 23 35 40 10/10/18 22:00 113 25 112/79 100 Mechanical Ventilator 40 10/10/18 22:00 110/75 10/10/18 21:45 118 20 113/74 100 Mechanical Ventilator 40 10/10/18 21:30 119 20 105/76 100 Mechanical Ventilator 40 10/10/18 21:15 121 21 97/70 100 Mechanical Ventilator 40 10/10/18 21:00 120 20 106/77 100 Mechanical Ventilator 40 10/10/18 21:00 97/70 10/10/18 20:45 121 25 101/67 100 Mechanical Ventilator 40 10/10/18 20:30 124 22 103/68 100 Mechanical Ventilator 40 10/10/18 20:15 126 26 130/84 100 Mechanical Ventilator 40 10/10/18 20:00 114 10/10/18 20:00 Mechanical Ventilator Mechanical Ventilator 10/10/18 20:00 40 10/10/18 20:00 98.5 122 22 135/87 100 Mechanical Ventilator 40 10/10/18 20:00 130/84 10/10/18 19:45 118 21 136/83 100 Mechanical Ventilator 40 10/10/18 19:30 116 20 134/84 100 Mechanical Ventilator 40 10/10/18 19:00 113 19 35 40 10/10/18 19:00 114 19 130/92 100 Mechanical Ventilator 40 10/10/18 19:00 130/92 10/10/18 18:30 98.9 115 23 110/81 100 Mechanical Ventilator 40 10/10/18 18:30 110/81 10/10/18 18:00 121 22 108/70 100 Mechanical Ventilator 40 10/10/18 18:00 108/70 10/10/18 17:55 123/78 10/10/18 17:30 128 25 141/92 100 Mechanical Ventilator 40 10/10/18 17:28 122 24 40 40 10/10/18 17:00 139/83 10/10/18 17:00 121 21 137/87 100 Mechanical Ventilator 40 10/10/18 16:30 118 23 117/85 100 Mechanical Ventilator 40 10/10/18 16:00 98.0 120 23 121/81 100 Mechanical Ventilator 40 10/10/18 16:00 118 10/10/18 16:00 40 10/10/18 16:00 112/87 10/10/18 16:00 Mechanical Ventilator Mechanical Ventilator 10/10/18 15:30 117 24 132/80 100 Mechanical Ventilator 40 10/10/18 15:00 118 23 126/80 100 Mechanical Ventilator 40 10/10/18 15:00 135/81 10/10/18 14:41 120 23 40 40 10/10/18 14:30 120 26 131/72 100 Mechanical Ventilator 40 10/10/18 14:00 100/68 10/10/18 14:00 120 26 114/66 98 Mechanical Ventilator 40 10/10/18 13:30 120 26 113/61 99 Mechanical Ventilator 40 10/10/18 13:02 125 26 40 40 10/10/18 13:00 129 38 91/56 100 Mechanical Ventilator 40 10/10/18 13:00 99/56 Status: awake Condition: critical HEENT: atraumatic Lungs: chest wall tender Heart: HR/BP stable, regular Abdomen: soft, active bowel sounds Extremities: edema Decubiti: location, stage Micro: Microbiology Date/Time Source Procedure Growth Status 10/09/18 05:30 Stool Clostridium difficile Toxin Assay - Final Complete Accucheck: 65 Critical Care - Subjective ROS Limited/Unobtainable: Yes Condition: critical EKG Rhythm: Sinus Rhythm FI02: 40 Vent Support Breath Rate: 14 Vent Support Mode: AC Vent Tidal Volume: 600 Sputum Amount: Small PEEP: 0.0 PIP: 29 Tube Feeding Amount: 0 I&O: Intake and Output 10/10/18 10/11/18 19:00 07:00 Intake Total 2405.625 ml 1601.22 ml Output Total 450 ml 695 ml Balance 1955.625 ml 906.22 ml IV Total 1845.625 ml 1001.22 ml Blood Product 500 ml 600 ml Other 60 ml Output Urine Total 0 ml 55 ml Stool Total 150 ml 200 ml Drainage Total 300 ml 440 ml CXR: extensive infiltrate Labs: Laboratory Tests Test 10/10/18 19:00 10/11/18 06:04 10/11/18 08:49 10/11/18 12:00 Lactic Acid Level 6.30 mmol/L (0.4-2.0) H 5.30 mmol/L (0.66-2.22) H Pending White Blood Count 25.5 K/UL (4.8-10.8) *H Red Blood Count 2.72 M/UL (4.70-6.10) L Hemoglobin 8.5 G/DL (14.2-18.0) #L Hematocrit 23.7 % (42.0-52.0) #L Mean Corpuscular Volume 87 FL (80-99) Mean Corpuscular Hemoglobin 31.2 PG (27.0-31.0) H Mean Corpuscular Hemoglobin Concent 35.9 G/DL (32.0-36.0) Red Cell Distribution Width 13.3 % (11.6-14.8) Platelet Count 103 K/UL (150-450) L Mean Platelet Volume 12.9 FL (6.5-10.1) H Neutrophils (%) (Auto) % (45.0-75.0) Lymphocytes (%) (Auto) % (20.0-45.0) Monocytes (%) (Auto) % (1.0-10.0) Eosinophils (%) (Auto) % (0.0-3.0) Basophils (%) (Auto) % (0.0-2.0) Differential Total Cells Counted 100 Neutrophils % (Manual) 75 % (45-75) Lymphocytes % (Manual) 11 % (20-45) L Monocytes % (Manual) 6 % (1-10) Eosinophils % (Manual) 0 % (0-3) Basophils % (Manual) 0 % (0-2) Myelocytes % 2 % (0-0) H Band Neutrophils 6 % (0-8) Nucleated Red Blood Cells 9 /100 WBC Platelet Estimate Decreased L Platelet Morphology Normal Polychromasia 2+ Prothrombin Time 14.1 SEC (9.30-11.50) H Prothromb Time International Ratio 1.4 (0.9-1.1) H Activated Partial Thromboplast Time 39 SEC (23-33) H Sodium Level 134 MMOL/L (136-145) L Potassium Level 3.8 MMOL/L (3.5-5.1) Chloride Level 98 MMOL/L (98-107) Carbon Dioxide Level 20 MMOL/L (21-32) L Anion Gap 16 mmol/L (5-15) H Blood Urea Nitrogen 61 mg/dL (7-18) H Creatinine 5.0 MG/DL (0.55-1.30) H Estimat Glomerular Filtration Rate 11.9 mL/min (>60) Glucose Level 264 MG/DL (74-106) H Calcium Level 5.8 MG/DL (8.5-10.1) *L Phosphorus Level 9.4 MG/DL (2.5-4.9) H Magnesium Level 2.0 MG/DL (1.8-2.4) Total Bilirubin 4.7 MG/DL (0.2-1.0) H Direct Bilirubin 3.4 MG/DL (0.0-0.3) H Aspartate Amino Transf (AST/SGOT) 771 U/L (15-37) H Alanine Aminotransferase (ALT/SGPT) 716 U/L (12-78) H Alkaline Phosphatase 183 U/L (46-116) H Total Protein 5.0 G/DL (6.4-8.2) L Albumin 1.3 G/DL (3.4-5.0) L Globulin 3.7 g/dL Albumin/Globulin Ratio 0.4 (1.0-2.7) L Arterial Blood pH 7.510 (7.350-7.450) Arterial Blood Partial Pressure CO2 25.9 mmHg (35.0-45.0) L Arterial Blood Partial Pressure O2 91.3 mmHg (75.0-100.0) Arterial Blood HCO3 20.2 mmol/L (22.0-26.0) L Arterial Blood Oxygen Saturation 95.9 % (95-100) Arterial Blood Base Excess -2.2 (-2-2) L Harvey Test Positive Po Li MD Oct 11, 2018 12:33
[2018-10-11] MEDS: D5NS 1,000 ML IV SCH (12:45)
--- NOTE | 2018-10-11 13:04 | Nephrology Progress Note ---
Assessment/Plan Problem List: (1) ATN (acute tubular necrosis) Assessment: Cr rising (2) Septic shock (3) Lactic acid acidosis (4) Metabolic acidosis (5) Hyperkalemia (6) G tube feedings (7) Acute respiratory failure Assessment ? internal bleed no surgical candidate post op 09/22/18: Trach, Splenectomy, Perf.... 10/08- condition worsenned- shock- septic- pressors Sever metabolic acidosis improved Acute Oliguric Renal Failure pressors, lower dose presented with Shock , likely septic Acute renal failure resolved Acute metabolic acidosis resolved Hyperkalemia PEG Recent Pneumonia Plan plan: discussed with RN Poor prognosis, remains full code !! hemodynamic support change IV fluid on lower pressors not much can be add from renal stand now trached 09/22 post laparatomy 09/22 on pressors again pulmonary support Fluid challenge as needed antibiotics monitor renal parameters and ABG Subjective ROS Limited/Unobtainable: Yes Objective Objective Last 24 Hour Vital Signs Date Time Temp Pulse Resp B/P (MAP) Pulse Ox O2 Delivery O2 Flow Rate FiO2 10/11/18 12:38 96 18 35 10/11/18 12:30 103 23 107/79 100 Mechanical Ventilator 35 10/11/18 12:00 97.9 99 16 118/80 96 Mechanical Ventilator 35 10/11/18 12:00 40 10/11/18 12:00 Mechanical Ventilator Mechanical Ventilator 10/11/18 12:00 118/80 10/11/18 12:00 95 10/11/18 11:30 95 15 109/82 100 Mechanical Ventilator 35 10/11/18 11:11 63 14 35 10/11/18 11:00 97 15 112/84 100 Mechanical Ventilator 35 10/11/18 11:00 112/84 10/11/18 10:30 108 14 108/80 99 Mechanical Ventilator 35 10/11/18 10:00 101 16 119/79 99 Mechanical Ventilator 35 10/11/18 10:00 119/79 10/11/18 09:30 94 16 112/74 99 Mechanical Ventilator 35 10/11/18 09:00 97 14 118/77 98 Mechanical Ventilator 35 10/11/18 09:00 118/77 10/11/18 08:31 94 16 35 10/11/18 08:30 96 16 116/74 99 Mechanical Ventilator 35 10/11/18 08:00 96 10/11/18 08:00 Mechanical Ventilator Mechanical Ventilator 10/11/18 08:00 122/78 10/11/18 08:00 97.1 98 16 122/78 100 Mechanical Ventilator 35 10/11/18 08:00 40 10/11/18 07:30 96 14 119/75 100 Mechanical Ventilator 35 10/11/18 07:00 120/76 10/11/18 07:00 96 16 120/76 100 Mechanical Ventilator 35 10/11/18 06:45 81 16 35 10/11/18 06:30 99 18 109/77 99 Mechanical Ventilator 40 10/11/18 06:00 98 12 111/70 Mechanical Ventilator 40 10/11/18 06:00 109/77 10/11/18 05:30 96 15 124/77 100 Mechanical Ventilator 40 10/11/18 05:21 101 20 35 40 10/11/18 05:00 109 13 85/59 100 Mechanical Ventilator 40 10/11/18 05:00 95/64 10/11/18 04:30 108 14 129/46 98 Mechanical Ventilator 40 10/11/18 04:15 100 18 137/89 100 Mechanical Ventilator 40 10/11/18 04:00 99 10/11/18 04:00 Mechanical Ventilator Mechanical Ventilator 10/11/18 04:00 98.5 100 19 137/83 99 Mechanical Ventilator 40 10/11/18 04:00 137/89 10/11/18 04:00 40 10/11/18 03:45 101 16 135/84 100 Mechanical Ventilator 40 10/11/18 03:30 100 17 131/85 100 Mechanical Ventilator 40 10/11/18 03:15 103 17 127/87 100 Mechanical Ventilator 40 10/11/18 03:00 106 21 129/84 99 Mechanical Ventilator 40 10/11/18 03:00 127/87 10/11/18 02:52 112 20 35 40 10/11/18 02:45 104 28 128/83 100 Mechanical Ventilator 40 10/11/18 02:30 101 17 139/82 100 Mechanical Ventilator 40 10/11/18 02:15 104 20 132/84 100 Mechanical Ventilator 40 10/11/18 02:00 103 18 140/84 100 Mechanical Ventilator 40 10/11/18 02:00 140/84 10/11/18 01:45 101 19 145/91 100 Mechanical Ventilator 40 10/11/18 01:30 101 20 141/88 100 Mechanical Ventilator 40 10/11/18 01:15 106 20 135/81 100 Mechanical Ventilator 40 10/11/18 01:08 108 20 35 40 10/11/18 01:00 105 20 143/82 100 Mechanical Ventilator 40 10/11/18 01:00 135/81 10/11/18 00:45 104 18 120/82 100 Mechanical Ventilator 40 10/11/18 00:30 102 16 130/83 100 Mechanical Ventilator 40 10/11/18 00:15 108 19 125/85 100 Mechanical Ventilator 40 10/11/18 00:00 110 10/11/18 00:00 98.1 109 17 143/84 100 Mechanical Ventilator 40 10/11/18 00:00 40 10/11/18 00:00 125/85 10/11/18 00:00 Mechanical Ventilator Mechanical Ventilator 10/10/18 23:45 109 16 139/87 97 Mechanical Ventilator 40 10/10/18 23:30 107 18 129/84 Mechanical Ventilator 40 10/10/18 23:16 113 20 35 40 10/10/18 23:15 111 18 137/83 99 Mechanical Ventilator 40 10/10/18 23:00 137/83 10/10/18 23:00 112 19 127/80 100 Mechanical Ventilator 40 10/10/18 22:45 111 26 122/89 100 Mechanical Ventilator 40 10/10/18 22:30 112 26 113/81 100 Mechanical Ventilator 40 10/10/18 22:15 114 20 110/75 100 Mechanical Ventilator 40 10/10/18 22:08 117 23 35 40 10/10/18 22:00 113 25 112/79 100 Mechanical Ventilator 40 10/10/18 22:00 110/75 10/10/18 21:45 118 20 113/74 100 Mechanical Ventilator 40 10/10/18 21:30 119 20 105/76 100 Mechanical Ventilator 40 10/10/18 21:15 121 21 97/70 100 Mechanical Ventilator 40 10/10/18 21:00 120 20 106/77 100 Mechanical Ventilator 40 10/10/18 21:00 97/70 10/10/18 20:45 121 25 101/67 100 Mechanical Ventilator 40 10/10/18 20:30 124 22 103/68 100 Mechanical Ventilator 40 10/10/18 20:15 126 26 130/84 100 Mechanical Ventilator 40 10/10/18 20:00 114 10/10/18 20:00 Mechanical Ventilator Mechanical Ventilator 10/10/18 20:00 40 10/10/18 20:00 98.5 122 22 135/87 100 Mechanical Ventilator 40 10/10/18 20:00 130/84 10/10/18 19:45 118 21 136/83 100 Mechanical Ventilator 40 10/10/18 19:30 116 20 134/84 100 Mechanical Ventilator 40 10/10/18 19:00 113 19 35 40 10/10/18 19:00 114 19 130/92 100 Mechanical Ventilator 40 10/10/18 19:00 130/92 10/10/18 18:30 98.9 115 23 110/81 100 Mechanical Ventilator 40 10/10/18 18:30 110/81 10/10/18 18:00 121 22 108/70 100 Mechanical Ventilator 40 10/10/18 18:00 108/70 10/10/18 17:55 123/78 10/10/18 17:30 128 25 141/92 100 Mechanical Ventilator 40 10/10/18 17:28 122 24 40 40 10/10/18 17:00 139/83 10/10/18 17:00 121 21 137/87 100 Mechanical Ventilator 40 10/10/18 16:30 118 23 117/85 100 Mechanical Ventilator 40 10/10/18 16:00 98.0 120 23 121/81 100 Mechanical Ventilator 40 10/10/18 16:00 118 10/10/18 16:00 40 10/10/18 16:00 112/87 10/10/18 16:00 Mechanical Ventilator Mechanical Ventilator 10/10/18 15:30 117 24 132/80 100 Mechanical Ventilator 40 10/10/18 15:00 118 23 126/80 100 Mechanical Ventilator 40 10/10/18 15:00 135/81 10/10/18 14:41 120 23 40 40 10/10/18 14:30 120 26 131/72 100 Mechanical Ventilator 40 10/10/18 14:00 100/68 10/10/18 14:00 120 26 114/66 98 Mechanical Ventilator 40 10/10/18 13:30 120 26 113/61 99 Mechanical Ventilator 40 Intake and Output 10/10/18 10/11/18 19:00 07:00 Intake Total 2405.625 ml 1601.22 ml Output Total 450 ml 695 ml Balance 1955.625 ml 906.22 ml IV Total 1845.625 ml 1001.22 ml Blood Product 500 ml 600 ml Other 60 ml Output Urine Total 0 ml 55 ml Stool Total 150 ml 200 ml Drainage Total 300 ml 440 ml Laboratory Tests 10/10/18 19:00: Lactic Acid Level 6.30H 10/11/18 06:04: Lactic Acid Level 5.30H, White Blood Count 25.5*H, Red Blood Count 2.72L, Hemoglobin 8.5#L, Hematocrit 23.7#L, Mean Corpuscular Volume 87, Mean Corpuscular Hemoglobin 31.2H, Mean Corpuscular Hemoglobin Concent 35.9, Red Cell Distribution Width 13.3, Platelet Count 103L, Mean Platelet Volume 12.9H, Neutrophils (%) (Auto) , Lymphocytes (%) (Auto) , Monocytes (%) (Auto) , Eosinophils (%) (Auto) , Basophils (%) (Auto) , Differential Total Cells Counted 100, Neutrophils % (Manual) 75, Lymphocytes % (Manual) 11L, Monocytes % (Manual) 6, Eosinophils % (Manual) 0, Basophils % (Manual) 0, Myelocytes % 2H, Band Neutrophils 6, Nucleated Red Blood Cells 9, Platelet Estimate DecreasedL, Platelet Morphology Normal, Polychromasia 2+, Prothrombin Time 14.1H, Prothromb Time International Ratio 1.4H, Activated Partial Thromboplast Time 39H, Sodium Level 134L, Potassium Level 3.8, Chloride Level 98, Carbon Dioxide Level 20L, Anion Gap 16H, Blood Urea Nitrogen 61H, Creatinine 5.0H, Estimat Glomerular Filtration Rate 11.9, Glucose Level 264H, Calcium Level 5.8*L, Phosphorus Level 9.4H, Magnesium Level 2.0, Total Bilirubin 4.7H, Direct Bilirubin 3.4H, Aspartate Amino Transf (AST/SGOT) 771H, Alanine Aminotransferase (ALT/SGPT) 716H , Alkaline Phosphatase 183H, Total Protein 5.0L, Albumin 1.3L, Globulin 3.7, Albumin/Globulin Ratio 0.4L 10/11/18 08:49: Arterial Blood pH 7.510H, Arterial Blood Partial Pressure CO2 25.9L, Arterial Blood Partial Pressure O2 91.3, Arterial Blood HCO3 20.2L, Arterial Blood Oxygen Saturation 95.9, Arterial Blood Base Excess -2.2L, Harvey Test Positive 10/11/18 12:00: Lactic Acid Level [Pending] Height (Feet): 5 Height (Inches): 5.00 Weight (Pounds): 152 General Appearance: mild distress Cardiovascular: tachycardia Respiratory/Chest: decreased breath sounds Abdomen: distended Objective no other changes Josesito Smalls MD Oct 11, 2018 13:04
--- NOTE | 2018-10-11 13:27 | Surgery Progress Note ---
Surgery Progress Note Subjective Procedure Performed 1. exploratory laparotomy 2. repair of gastric perforation 3. evacuation of abdominal omental hematoma 4. evacuation of perisplenic abscess 5. omentectomy 6. splenectomy 7. abdominal washout 8. tracheostomy Additional Comments transfused 2 prbc, 2 ffp. labs noted. improved. Objective Last 24 Hour Vital Signs Date Time Temp Pulse Resp B/P (MAP) Pulse Ox O2 Delivery O2 Flow Rate FiO2 10/11/18 13:00 96 17 110/77 100 Mechanical Ventilator 35 10/11/18 12:38 96 18 35 10/11/18 12:30 103 23 107/79 100 Mechanical Ventilator 35 10/11/18 12:00 97.9 99 16 118/80 96 Mechanical Ventilator 35 10/11/18 12:00 40 10/11/18 12:00 Mechanical Ventilator Mechanical Ventilator 10/11/18 12:00 118/80 10/11/18 12:00 95 10/11/18 11:30 95 15 109/82 100 Mechanical Ventilator 35 10/11/18 11:11 63 14 35 10/11/18 11:00 97 15 112/84 100 Mechanical Ventilator 35 10/11/18 11:00 112/84 10/11/18 10:30 108 14 108/80 99 Mechanical Ventilator 35 10/11/18 10:00 101 16 119/79 99 Mechanical Ventilator 35 10/11/18 10:00 119/79 10/11/18 09:30 94 16 112/74 99 Mechanical Ventilator 35 10/11/18 09:00 97 14 118/77 98 Mechanical Ventilator 35 10/11/18 09:00 118/77 10/11/18 08:31 94 16 35 10/11/18 08:30 96 16 116/74 99 Mechanical Ventilator 35 10/11/18 08:00 96 10/11/18 08:00 Mechanical Ventilator Mechanical Ventilator 10/11/18 08:00 122/78 10/11/18 08:00 97.1 98 16 122/78 100 Mechanical Ventilator 35 10/11/18 08:00 40 10/11/18 07:30 96 14 119/75 100 Mechanical Ventilator 35 10/11/18 07:00 120/76 10/11/18 07:00 96 16 120/76 100 Mechanical Ventilator 35 10/11/18 06:45 81 16 35 10/11/18 06:30 99 18 109/77 99 Mechanical Ventilator 40 10/11/18 06:00 98 12 111/70 Mechanical Ventilator 40 10/11/18 06:00 109/77 10/11/18 05:30 96 15 124/77 100 Mechanical Ventilator 40 10/11/18 05:21 101 20 35 40 10/11/18 05:00 109 13 85/59 100 Mechanical Ventilator 40 10/11/18 05:00 95/64 10/11/18 04:30 108 14 129/46 98 Mechanical Ventilator 40 10/11/18 04:15 100 18 137/89 100 Mechanical Ventilator 40 10/11/18 04:00 99 10/11/18 04:00 Mechanical Ventilator Mechanical Ventilator 10/11/18 04:00 98.5 100 19 137/83 99 Mechanical Ventilator 40 10/11/18 04:00 137/89 10/11/18 04:00 40 10/11/18 03:45 101 16 135/84 100 Mechanical Ventilator 40 10/11/18 03:30 100 17 131/85 100 Mechanical Ventilator 40 10/11/18 03:15 103 17 127/87 100 Mechanical Ventilator 40 10/11/18 03:00 106 21 129/84 99 Mechanical Ventilator 40 10/11/18 03:00 127/87 10/11/18 02:52 112 20 35 40 10/11/18 02:45 104 28 128/83 100 Mechanical Ventilator 40 10/11/18 02:30 101 17 139/82 100 Mechanical Ventilator 40 10/11/18 02:15 104 20 132/84 100 Mechanical Ventilator 40 10/11/18 02:00 103 18 140/84 100 Mechanical Ventilator 40 10/11/18 02:00 140/84 10/11/18 01:45 101 19 145/91 100 Mechanical Ventilator 40 10/11/18 01:30 101 20 141/88 100 Mechanical Ventilator 40 10/11/18 01:15 106 20 135/81 100 Mechanical Ventilator 40 10/11/18 01:08 108 20 35 40 10/11/18 01:00 105 20 143/82 100 Mechanical Ventilator 40 10/11/18 01:00 135/81 10/11/18 00:45 104 18 120/82 100 Mechanical Ventilator 40 10/11/18 00:30 102 16 130/83 100 Mechanical Ventilator 40 10/11/18 00:15 108 19 125/85 100 Mechanical Ventilator 40 10/11/18 00:00 110 10/11/18 00:00 98.1 109 17 143/84 100 Mechanical Ventilator 40 10/11/18 00:00 40 10/11/18 00:00 125/85 10/11/18 00:00 Mechanical Ventilator Mechanical Ventilator 10/10/18 23:45 109 16 139/87 97 Mechanical Ventilator 40 10/10/18 23:30 107 18 129/84 Mechanical Ventilator 40 10/10/18 23:16 113 20 35 40 10/10/18 23:15 111 18 137/83 99 Mechanical Ventilator 40 10/10/18 23:00 137/83 10/10/18 23:00 112 19 127/80 100 Mechanical Ventilator 40 10/10/18 22:45 111 26 122/89 100 Mechanical Ventilator 40 10/10/18 22:30 112 26 113/81 100 Mechanical Ventilator 40 10/10/18 22:15 114 20 110/75 100 Mechanical Ventilator 40 10/10/18 22:08 117 23 35 40 10/10/18 22:00 113 25 112/79 100 Mechanical Ventilator 40 10/10/18 22:00 110/75 10/10/18 21:45 118 20 113/74 100 Mechanical Ventilator 40 10/10/18 21:30 119 20 105/76 100 Mechanical Ventilator 40 10/10/18 21:15 121 21 97/70 100 Mechanical Ventilator 40 10/10/18 21:00 120 20 106/77 100 Mechanical Ventilator 40 10/10/18 21:00 97/70 10/10/18 20:45 121 25 101/67 100 Mechanical Ventilator 40 10/10/18 20:30 124 22 103/68 100 Mechanical Ventilator 40 10/10/18 20:15 126 26 130/84 100 Mechanical Ventilator 40 10/10/18 20:00 114 10/10/18 20:00 Mechanical Ventilator Mechanical Ventilator 10/10/18 20:00 40 10/10/18 20:00 98.5 122 22 135/87 100 Mechanical Ventilator 40 10/10/18 20:00 130/84 10/10/18 19:45 118 21 136/83 100 Mechanical Ventilator 40 10/10/18 19:30 116 20 134/84 100 Mechanical Ventilator 40 10/10/18 19:00 113 19 35 40 10/10/18 19:00 114 19 130/92 100 Mechanical Ventilator 40 10/10/18 19:00 130/92 10/10/18 18:30 98.9 115 23 110/81 100 Mechanical Ventilator 40 10/10/18 18:30 110/81 10/10/18 18:00 121 22 108/70 100 Mechanical Ventilator 40 10/10/18 18:00 108/70 10/10/18 17:55 123/78 10/10/18 17:30 128 25 141/92 100 Mechanical Ventilator 40 10/10/18 17:28 122 24 40 40 10/10/18 17:00 139/83 10/10/18 17:00 121 21 137/87 100 Mechanical Ventilator 40 10/10/18 16:30 118 23 117/85 100 Mechanical Ventilator 40 10/10/18 16:00 98.0 120 23 121/81 100 Mechanical Ventilator 40 10/10/18 16:00 118 10/10/18 16:00 40 10/10/18 16:00 112/87 10/10/18 16:00 Mechanical Ventilator Mechanical Ventilator 10/10/18 15:30 117 24 132/80 100 Mechanical Ventilator 40 10/10/18 15:00 118 23 126/80 100 Mechanical Ventilator 40 10/10/18 15:00 135/81 10/10/18 14:41 120 23 40 40 10/10/18 14:30 120 26 131/72 100 Mechanical Ventilator 40 10/10/18 14:00 100/68 10/10/18 14:00 120 26 114/66 98 Mechanical Ventilator 40 10/10/18 13:30 120 26 113/61 99 Mechanical Ventilator 40 I&O Intake and Output 10/10/18 10/11/18 19:00 07:00 Intake Total 2405.625 ml 1601.22 ml Output Total 450 ml 695 ml Balance 1955.625 ml 906.22 ml IV Total 1845.625 ml 1001.22 ml Blood Product 500 ml 600 ml Other 60 ml Output Urine Total 0 ml 55 ml Stool Total 150 ml 200 ml Drainage Total 300 ml 440 ml Dressing: saturated Wound: other Drains: josephine Cardiovascular: RSR Respiratory: decreased breath sounds Abdomen: soft, other, non-distended Extremities: no cyanosis Laboratory Tests Test 10/10/18 19:00 10/11/18 06:04 10/11/18 08:49 10/11/18 12:00 Lactic Acid Level 6.30 mmol/L (0.4-2.0) H 5.30 mmol/L (0.66-2.22) H Pending White Blood Count 25.5 K/UL (4.8-10.8) *H Red Blood Count 2.72 M/UL (4.70-6.10) L Hemoglobin 8.5 G/DL (14.2-18.0) #L Hematocrit 23.7 % (42.0-52.0) #L Mean Corpuscular Volume 87 FL (80-99) Mean Corpuscular Hemoglobin 31.2 PG (27.0-31.0) H Mean Corpuscular Hemoglobin Concent 35.9 G/DL (32.0-36.0) Red Cell Distribution Width 13.3 % (11.6-14.8) Platelet Count 103 K/UL (150-450) L Mean Platelet Volume 12.9 FL (6.5-10.1) H Neutrophils (%) (Auto) % (45.0-75.0) Lymphocytes (%) (Auto) % (20.0-45.0) Monocytes (%) (Auto) % (1.0-10.0) Eosinophils (%) (Auto) % (0.0-3.0) Basophils (%) (Auto) % (0.0-2.0) Differential Total Cells Counted 100 Neutrophils % (Manual) 75 % (45-75) Lymphocytes % (Manual) 11 % (20-45) L Monocytes % (Manual) 6 % (1-10) Eosinophils % (Manual) 0 % (0-3) Basophils % (Manual) 0 % (0-2) Myelocytes % 2 % (0-0) H Band Neutrophils 6 % (0-8) Nucleated Red Blood Cells 9 /100 WBC Platelet Estimate Decreased L Platelet Morphology Normal Polychromasia 2+ Prothrombin Time 14.1 SEC (9.30-11.50) H Prothromb Time International Ratio 1.4 (0.9-1.1) H Activated Partial Thromboplast Time 39 SEC (23-33) H Sodium Level 134 MMOL/L (136-145) L Potassium Level 3.8 MMOL/L (3.5-5.1) Chloride Level 98 MMOL/L (98-107) Carbon Dioxide Level 20 MMOL/L (21-32) L Anion Gap 16 mmol/L (5-15) H Blood Urea Nitrogen 61 mg/dL (7-18) H Creatinine 5.0 MG/DL (0.55-1.30) H Estimat Glomerular Filtration Rate 11.9 mL/min (>60) Glucose Level 264 MG/DL (74-106) H Calcium Level 5.8 MG/DL (8.5-10.1) *L Phosphorus Level 9.4 MG/DL (2.5-4.9) H Magnesium Level 2.0 MG/DL (1.8-2.4) Total Bilirubin 4.7 MG/DL (0.2-1.0) H Direct Bilirubin 3.4 MG/DL (0.0-0.3) H Aspartate Amino Transf (AST/SGOT) 771 U/L (15-37) H Alanine Aminotransferase (ALT/SGPT) 716 U/L (12-78) H Alkaline Phosphatase 183 U/L (46-116) H Total Protein 5.0 G/DL (6.4-8.2) L Albumin 1.3 G/DL (3.4-5.0) L Globulin 3.7 g/dL Albumin/Globulin Ratio 0.4 (1.0-2.7) L Arterial Blood pH 7.510 (7.350-7.450) Arterial Blood Partial Pressure CO2 25.9 mmHg (35.0-45.0) L Arterial Blood Partial Pressure O2 91.3 mmHg (75.0-100.0) Arterial Blood HCO3 20.2 mmol/L (22.0-26.0) L Arterial Blood Oxygen Saturation 95.9 % (95-100) Arterial Blood Base Excess -2.2 (-2-2) L Harvey Test Positive Assessment Post-op Diagnosis 1. large omental perigastric hematoma 2. malpositioned PEG tube with gastric perforation 3. large perisplenic abscess 4. abdominal peritonitis 5. respiratory insufficiency requiring prolonged ventilatory support Plan Problems: (1) Decubitus skin ulcer Assessment & Plan: Pt presents with multiple skin issues. Intact serous blister noted to lateral R abd (L)2.6cm x (W)2.2cm. Intact serous blister lateral R abd (L)0.7cm x (W)1.4cm. 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 Erythema with induration along borders. Buttocks without evidence of skin breakdown. Both heels are dry and easily blanchable. Tx.Plan: Cleanse wound R Hip with Saline.Recommend Silvasorb gel .Apply Cavilon Skin Barrier periwound.Cover with Optifoam drsg every 3 Days and prn. Apply Cavilon Skin Barrier to Blisters (2) R abd. Cover with Optifoam drsg.Change every 7 days and PRN. Apply Moisture barrier to sacrum .Cover with Optifoam .Change every 7 days and prn. Air Fluidized mattress. Apply Cavilon to both heels .Off-load heels with pillow. (2) Septic shock Assessment & Plan: leukocytosis anemia. stable left drain that was somewhat dislodged prior is now draining dark blood with clots on pressors. HD unstable unfortunately too high risk for surgery at this time. etiology of sudden bleed unknown. does not look like actively bleeding at this time. given recent CT findings concerns for possible gastric breakdown. prognosis very guarded likely transient bleed from partially dislodged drain. now without active bleeding Continues to drain blood from drain with unknown etiology still too unstable Significant coagulopathy Greater than 50% drop in platelets potentially in DIC Transfuse FFP PRBC prn trend labs will monitor trend h/h abx transfuse prbc (3) Protein-calorie malnutrition, severe Assessment & Plan: will need nutritional optimization to recover and heal wounds nutrition consult Isreal Lynne Oct 11, 2018 13:27
[2018-10-11] MEDS: Micafungin 100 MG in NS 110 ML IVPB SCH (18:11)
[2018-10-11] MEDS: Dyna-Hex 2% Top Sol 2oz TOPIC SCH (20:26)
[2018-10-11] MEDS: Norepinephrine Bitartrate 16 MG in D5W 500ml 484 ML IV SCH (22:00)
[2018-10-12] VITALS (24 sets, daily range): BP systolic 88–123; BP diastolic 61–75
[2018-10-12] MEDS: D5NS 1,000 ML IV SCH ×2 (01:58→15:38)
[2018-10-12] MEDS: Meropenem 1 GM in NS 55 ML IVPB SCH ×2 (04:06→16:42)
[2018-10-12 06:10] LABS: HEMATOCRIT 20.1 % (42.0-52.0); HEMOGLOBIN 7.4 G/DL (14.2-18.0); MEAN CORPUSCULAR VOLUME 87 FL (80-99); PLATELET COUNT 106 K/UL (150-450); RED CELL DISTRIBUTION WIDTH 13.1 % (11.6-14.8); WHITE BLOOD COUNT 20.4 K/UL (4.8-10.8)
[2018-10-12 06:18] LABS: AMMONIA 35 umol/L (11-32)
[2018-10-12 06:20] LABS: INR 1.3 (0.9-1.1)
[2018-10-12 06:53] LABS: ALANINE AMINOTRANSFERASE 487 U/L (12-78); ALBUMIN/GLOBULIN RATIO 0.3 (1.0-2.7); ALKALINE PHOSPHATASE 191 U/L (46-116); ANION GAP 16 mmol/L (5-15); ASPARTATE AMINO TRANSFERASE 474 U/L (15-37); BILIRUBIN,TOTAL 2.8 MG/DL (0.2-1.0); BLOOD UREA NITROGEN 67 mg/dL (7-18); CALCIUM 5.8 MG/DL (8.5-10.1); CARBON DIOXIDE 21 MMOL/L (21-32); CHLORIDE 101 MMOL/L (98-107); CREATININE 5.5 MG/DL (0.55-1.30); PHOSPHORUS 9.1 MG/DL (2.5-4.9); POTASSIUM 2.5 MMOL/L (3.5-5.1); SODIUM 138 MMOL/L (136-145)
[2018-10-12 06:55] LABS: BILIRUBIN,DIRECT 1.9 MG/DL (0.0-0.3)
[2018-10-12 07:00] LABS: CREATINE KINASE 211 U/L (26-308); GAMMA GLUTAMYL TRANSPEPTIDASE 102 U/L (5-85)
--- NOTE | 2018-10-12 07:07 | General Progress Note ---
Assessment/Plan Problem List: (1) Decubitus skin ulcer ICD Codes: L89.90 - Pressure ulcer of unspecified site, unspecified stage SNOMED: 395025215 (2) Anemia ICD Codes: D64.9 - Anemia, unspecified SNOMED: 264460103 (3) Acute respiratory failure ICD Codes: J96.00 - Acute respiratory failure, unspecified whether with hypoxia or hypercapnia SNOMED: 14101816 (4) Pneumonia ICD Codes: J18.9 - Pneumonia, unspecified organism SNOMED: 775664372 Assessment/Plan REOPERATIVE DIAGNOSES: 1. Malpositioned feeding tube with leak and peritonitis/perforation. 2. Respiratory insufficiency requiring prolonged ventilatory support. POSTOPERATIVE DIAGNOSES: 1. Large omental perigastric hematoma. 2. Malpositioned PEG tube with gastric perforation. 3. Large perisplenic abscess. 4. Abdominal peritonitis. 5. Respiratory insufficiency requiring prolonged ventilatory support. OPERATION PERFORMED: 1. Exploratory laparotomy. 2. Repair of gastric perforation. 3. Evacuation of abdominal omental / lesser sac hematoma. 4. Evacuation of perisplenic hematoma/abscess. 5. Omentectomy. 6. Splenectomy. 7. Abdominal washout. 8. Tracheostomy. RECOMMENDATIONS: fu surgical recommendations prn transfusion ppi off TPN now>>resume when ok with ID poor prognosis fu labs Subjective ROS Limited/Unobtainable: No Allergies: Coded Allergies: No Known Allergies (Unverified , 08/14/18) Objective Last 24 Hour Vital Signs Date Time Temp Pulse Resp B/P (MAP) Pulse Ox O2 Delivery O2 Flow Rate FiO2 10/12/18 06:00 102 22 95/64 97 Mechanical Ventilator 35 10/12/18 05:00 102 23 101/64 98 Mechanical Ventilator 35 10/12/18 04:41 99 21 35 10/12/18 04:00 104 10/12/18 04:00 35 10/12/18 04:00 Mechanical Ventilator Mechanical Ventilator 10/12/18 04:00 98.0 107 30 102/70 97 Mechanical Ventilator 35 10/12/18 03:00 101 22 92/62 98 Mechanical Ventilator 35 10/12/18 02:42 96 16 35 10/12/18 02:00 102 27 98/64 98 Mechanical Ventilator 35 10/12/18 01:00 104 25 88/65 100 Mechanical Ventilator 35 10/12/18 00:55 107 23 35 10/12/18 00:00 96.8 101 21 90/67 100 Mechanical Ventilator 35 10/12/18 00:00 35 10/12/18 00:00 Mechanical Ventilator Mechanical Ventilator 10/12/18 00:00 102 10/11/18 23:00 118 29 35 10/11/18 23:00 110 21 89/64 100 Mechanical Ventilator 35 10/11/18 22:00 101 20 96/68 100 Mechanical Ventilator 35 10/11/18 22:00 96/68 10/11/18 21:00 101 19 91/71 100 Mechanical Ventilator 35 10/11/18 20:44 101 18 35 10/11/18 20:30 108 23 93/71 100 Mechanical Ventilator 35 10/11/18 20:00 98.1 102 21 100/76 100 Mechanical Ventilator 35 10/11/18 20:00 Mechanical Ventilator Mechanical Ventilator 10/11/18 20:00 40 10/11/18 20:00 103 10/11/18 19:26 101 17 35 10/11/18 19:00 104 21 99/71 100 Mechanical Ventilator 35 10/11/18 18:00 103 20 99/77 100 Mechanical Ventilator 35 10/11/18 17:30 98 21 103/73 100 Mechanical Ventilator 35 10/11/18 17:00 99 21 96/66 100 Mechanical Ventilator 35 10/11/18 16:54 100 17 35 10/11/18 16:45 96 21 92/65 100 Mechanical Ventilator 35 10/11/18 16:30 100 20 91/64 100 Mechanical Ventilator 35 10/11/18 16:15 100 21 99/67 100 Mechanical Ventilator 35 10/11/18 16:00 98.7 101 21 104/69 100 Mechanical Ventilator 35 10/11/18 16:00 103 10/11/18 16:00 Mechanical Ventilator Mechanical Ventilator 10/11/18 16:00 40 10/11/18 16:00 104/69 10/11/18 15:30 98 20 128/78 100 Mechanical Ventilator 35 10/11/18 15:00 105 18 105/76 100 Mechanical Ventilator 35 10/11/18 14:31 99 18 35 10/11/18 14:30 98 19 103/77 100 Mechanical Ventilator 35 10/11/18 14:00 100 19 104/73 100 Mechanical Ventilator 35 10/11/18 14:00 112/71 10/11/18 13:30 98 18 110/76 100 Mechanical Ventilator 35 10/11/18 13:00 110/77 10/11/18 13:00 96 17 110/77 100 Mechanical Ventilator 35 10/11/18 12:38 96 18 35 10/11/18 12:30 103 23 107/79 100 Mechanical Ventilator 35 10/11/18 12:00 97.9 99 16 118/80 96 Mechanical Ventilator 35 10/11/18 12:00 40 10/11/18 12:00 Mechanical Ventilator Mechanical Ventilator 10/11/18 12:00 118/80 10/11/18 12:00 95 10/11/18 11:30 95 15 109/82 100 Mechanical Ventilator 35 10/11/18 11:11 63 14 35 10/11/18 11:00 97 15 112/84 100 Mechanical Ventilator 35 10/11/18 11:00 112/84 10/11/18 10:30 108 14 108/80 99 Mechanical Ventilator 35 10/11/18 10:00 101 16 119/79 99 Mechanical Ventilator 35 10/11/18 10:00 119/79 10/11/18 09:30 94 16 112/74 99 Mechanical Ventilator 35 10/11/18 09:00 97 14 118/77 98 Mechanical Ventilator 35 10/11/18 09:00 118/77 10/11/18 08:31 94 16 35 10/11/18 08:30 96 16 116/74 99 Mechanical Ventilator 35 10/11/18 08:00 96 10/11/18 08:00 Mechanical Ventilator Mechanical Ventilator 10/11/18 08:00 122/78 10/11/18 08:00 97.1 98 16 122/78 100 Mechanical Ventilator 35 10/11/18 08:00 40 10/11/18 07:30 96 14 119/75 100 Mechanical Ventilator 35 Intake and Output 10/11/18 10/12/18 19:00 07:00 Intake Total 1241.84 ml 842.5 ml Output Total 640 ml 625 ml Balance 601.84 ml 217.5 ml IV Total 1171.84 ml 842.5 ml Other 70 ml Output Urine Total 105 ml 65 ml Stool Total 250 ml 200 ml Drainage Total 285 ml 360 ml # Bowel Movements 2 Laboratory Tests 10/11/18 08:49: Arterial Blood pH 7.510H, Arterial Blood Partial Pressure CO2 25.9L, Arterial Blood Partial Pressure O2 91.3, Arterial Blood HCO3 20.2L, Arterial Blood Oxygen Saturation 95.9, Arterial Blood Base Excess -2.2L, Harvey Test Positive 10/11/18 12:00: Lactic Acid Level 4.00H 10/11/18 15:30: Lactic Acid Level 3.70H 10/12/18 05:00: Lactic Acid Level 2.60H, White Blood Count 20.4H, Red Blood Count 2.30L, Hemoglobin 7.4L, Hematocrit 20.1L, Mean Corpuscular Volume 87, Mean Corpuscular Hemoglobin 32.3H, Mean Corpuscular Hemoglobin Concent 36.9H, Red Cell Distribution Width 13.1, Platelet Count 106L, Mean Platelet Volume 12.2H, Neutrophils (%) (Auto) , Lymphocytes (%) (Auto) , Monocytes (%) (Auto) , Eosinophils (%) (Auto) , Basophils (%) (Auto) , Neutrophils % (Manual) [Pending] , Lymphocytes % (Manual) [Pending], Platelet Estimate [Pending], Platelet Morphology [Pending], Prothrombin Time 13.8H, Prothromb Time International Ratio 1.3H, Activated Partial Thromboplast Time 42H, Sodium Level 138, Potassium Level 2.5*L, Chloride Level 101, Carbon Dioxide Level 21, Anion Gap 16H, Blood Urea Nitrogen 67H, Creatinine 5.5H, Estimat Glomerular Filtration Rate 10.7, Glucose Level 121#H, Uric Acid 10.0H, Calcium Level 5.8*L, Phosphorus Level 9.1H, Magnesium Level 1.8, Total Bilirubin 2.8H, Direct Bilirubin 1.9H, Gamma Glutamyl Transpeptidase 102H, Aspartate Amino Transf (AST/ SGOT) 474H, Alanine Aminotransferase (ALT/SGPT) 487H, Alkaline Phosphatase 191H , Ammonia 35H, Total Creatine Kinase 211, Troponin I 0.429H, Pro-B-Type Natriuretic Peptide 6673H, Total Protein 4.8L, Albumin 1.0L, Globulin 3.8, Albumin/Globulin Ratio 0.3L Height (Feet): 5 Height (Inches): 5.00 Weight (Pounds): 157 General Appearance: lethargic EENT: normal ENT inspection Neck: supple Cardiovascular: tachycardia Respiratory/Chest: decreased breath sounds Abdomen: other - post surgical Extremities: non-tender Arthur Horton MD Oct 12, 2018 07:07
[2018-10-12] MEDS: Pantoprazole Inj IVP SCH ×2 (09:40→21:15)
--- NOTE | 2018-10-12 10:58 | Pulmonolgy Critical Care Note ---
Critical Care - Asmt/Plan Problems: (1) Septic shock (2) Acute respiratory failure (3) ATN (acute tubular necrosis) (4) Metabolic acidosis (5) Gastric rupture Respiratory: adjust tidal volume, monitor respiratory rate, adjust FIO2, CXR Cardiac: continue to monitor HR/BP Renal: F/U I&O Infectious Disease: continue antibiotics Gastrointestinal: continue feedings/current rate Endocrine: monitor blood sugar, continue sliding scale insulin Hematologic: transfuse if hgb<8.5 Neurologic: PRN Morphine, keep patient comfortable Prophylaxis: Protonix, Heparin Time Spent (Minutes): 30 Notes Reviewed: screw down, cardio, renal Discussed with: nurses, consultants, classification case managerengagement manager - Objective Last 24 Hour Vital Signs Date Time Temp Pulse Resp B/P (MAP) Pulse Ox O2 Delivery O2 Flow Rate FiO2 10/12/18 09:03 103 18 35 10/12/18 08:00 35 10/12/18 08:00 Mechanical Ventilator Mechanical Ventilator 10/12/18 07:48 102 18 35 10/12/18 06:00 102 22 95/64 97 Mechanical Ventilator 35 10/12/18 05:00 102 23 101/64 98 Mechanical Ventilator 35 10/12/18 04:41 99 21 35 10/12/18 04:00 104 10/12/18 04:00 35 10/12/18 04:00 Mechanical Ventilator Mechanical Ventilator 10/12/18 04:00 98.0 107 30 102/70 97 Mechanical Ventilator 35 10/12/18 03:00 101 22 92/62 98 Mechanical Ventilator 35 10/12/18 02:42 96 16 35 10/12/18 02:00 102 27 98/64 98 Mechanical Ventilator 35 10/12/18 01:00 104 25 88/65 100 Mechanical Ventilator 35 10/12/18 00:55 107 23 35 10/12/18 00:00 96.8 101 21 90/67 100 Mechanical Ventilator 35 10/12/18 00:00 35 10/12/18 00:00 Mechanical Ventilator Mechanical Ventilator 10/12/18 00:00 102 10/11/18 23:00 118 29 35 10/11/18 23:00 110 21 89/64 100 Mechanical Ventilator 35 10/11/18 22:00 101 20 96/68 100 Mechanical Ventilator 35 10/11/18 22:00 96/68 10/11/18 21:00 101 19 91/71 100 Mechanical Ventilator 35 10/11/18 20:44 101 18 35 10/11/18 20:30 108 23 93/71 100 Mechanical Ventilator 35 10/11/18 20:00 98.1 102 21 100/76 100 Mechanical Ventilator 35 10/11/18 20:00 Mechanical Ventilator Mechanical Ventilator 10/11/18 20:00 40 10/11/18 20:00 103 10/11/18 19:26 101 17 35 10/11/18 19:00 104 21 99/71 100 Mechanical Ventilator 35 10/11/18 18:00 103 20 99/77 100 Mechanical Ventilator 35 10/11/18 17:30 98 21 103/73 100 Mechanical Ventilator 35 10/11/18 17:00 99 21 96/66 100 Mechanical Ventilator 35 10/11/18 16:54 100 17 35 10/11/18 16:45 96 21 92/65 100 Mechanical Ventilator 35 10/11/18 16:30 100 20 91/64 100 Mechanical Ventilator 35 10/11/18 16:15 100 21 99/67 100 Mechanical Ventilator 35 10/11/18 16:00 98.7 101 21 104/69 100 Mechanical Ventilator 35 10/11/18 16:00 103 10/11/18 16:00 Mechanical Ventilator Mechanical Ventilator 10/11/18 16:00 40 10/11/18 16:00 104/69 10/11/18 15:30 98 20 128/78 100 Mechanical Ventilator 35 10/11/18 15:00 105 18 105/76 100 Mechanical Ventilator 35 10/11/18 14:31 99 18 35 10/11/18 14:30 98 19 103/77 100 Mechanical Ventilator 35 10/11/18 14:00 100 19 104/73 100 Mechanical Ventilator 35 10/11/18 14:00 112/71 10/11/18 13:30 98 18 110/76 100 Mechanical Ventilator 35 10/11/18 13:00 110/77 10/11/18 13:00 96 17 110/77 100 Mechanical Ventilator 35 10/11/18 12:38 96 18 35 10/11/18 12:30 103 23 107/79 100 Mechanical Ventilator 35 10/11/18 12:00 97.9 99 16 118/80 96 Mechanical Ventilator 35 10/11/18 12:00 40 10/11/18 12:00 Mechanical Ventilator Mechanical Ventilator 10/11/18 12:00 118/80 10/11/18 12:00 95 10/11/18 11:30 95 15 109/82 100 Mechanical Ventilator 35 10/11/18 11:11 63 14 35 10/11/18 11:00 97 15 112/84 100 Mechanical Ventilator 35 10/11/18 11:00 112/84 Status: awake Condition: critical HEENT: atraumatic Lungs: clear Heart: HR/BP unstable, regular Abdomen: active bowel sounds Extremities: no C/C/E, edema Decubiti: location Accucheck: 65 Critical Care - Subjective ROS Limited/Unobtainable: Yes Condition: critical EKG Rhythm: Sinus Rhythm FI02: 35 Vent Support Breath Rate: 14 Vent Support Mode: AC Vent Tidal Volume: 500 Sputum Amount: Small PEEP: 0.0 PIP: 28 Tube Feeding Amount: 0 I&O: Intake and Output 10/11/18 10/12/18 18:59 06:59 Intake Total 1162.46 ml 1027.5 ml Output Total 640 ml 630 ml Balance 522.46 ml 397.5 ml IV Total 1092.46 ml 1027.5 ml Other 70 ml Output Urine Total 105 ml 70 ml Stool Total 250 ml 200 ml Drainage Total 285 ml 360 ml # Bowel Movements 2 CXR: trach intact Labs: Laboratory Tests Test 10/11/18 12:00 10/11/18 15:30 10/12/18 05:00 10/12/18 08:57 Lactic Acid Level 4.00 mmol/L (0.4-2.0) H 3.70 mmol/L (0.66-2.22) H 2.60 mmol/L (0.4-2.0) H White Blood Count 20.4 K/UL (4.8-10.8) H Red Blood Count 2.30 M/UL (4.70-6.10) L Hemoglobin 7.4 G/DL (14.2-18.0) L Hematocrit 20.1 % (42.0-52.0) L Mean Corpuscular Volume 87 FL (80-99) Mean Corpuscular Hemoglobin 32.3 PG (27.0-31.0) H Mean Corpuscular Hemoglobin Concent 36.9 G/DL (32.0-36.0) H Red Cell Distribution Width 13.1 % (11.6-14.8) Platelet Count 106 K/UL (150-450) L Mean Platelet Volume 12.2 FL (6.5-10.1) H Neutrophils (%) (Auto) % (45.0-75.0) Lymphocytes (%) (Auto) % (20.0-45.0) Monocytes (%) (Auto) % (1.0-10.0) Eosinophils (%) (Auto) % (0.0-3.0) Basophils (%) (Auto) % (0.0-2.0) Differential Total Cells Counted 100 Neutrophils % (Manual) 83 % (45-75) H Lymphocytes % (Manual) 2 % (20-45) L Monocytes % (Manual) 4 % (1-10) Eosinophils % (Manual) 1 % (0-3) Basophils % (Manual) 0 % (0-2) Metamyelocytes % 3 % (0-0) H Myelocytes % 4 % (0-0) H Band Neutrophils 3 % (0-8) Nucleated Red Blood Cells 20 /100 WBC Platelet Estimate Decreased L Platelet Morphology Normal Prothrombin Time 13.8 SEC (9.30-11.50) H Prothromb Time International Ratio 1.3 (0.9-1.1) H Activated Partial Thromboplast Time 42 SEC (23-33) H Sodium Level 138 MMOL/L (136-145) Potassium Level 2.5 MMOL/L (3.5-5.1) *L Chloride Level 101 MMOL/L (98-107) Carbon Dioxide Level 21 MMOL/L (21-32) Anion Gap 16 mmol/L (5-15) H Blood Urea Nitrogen 67 mg/dL (7-18) H Creatinine 5.5 MG/DL (0.55-1.30) H Estimat Glomerular Filtration Rate 10.7 mL/min (>60) Glucose Level 121 MG/DL (74-106) #H Uric Acid 10.0 MG/DL (2.6-7.2) H Calcium Level 5.8 MG/DL (8.5-10.1) *L Phosphorus Level 9.1 MG/DL (2.5-4.9) H Magnesium Level 1.8 MG/DL (1.8-2.4) Total Bilirubin 2.8 MG/DL (0.2-1.0) H Direct Bilirubin 1.9 MG/DL (0.0-0.3) H Gamma Glutamyl Transpeptidase 102 U/L (5-85) H Aspartate Amino Transf (AST/SGOT) 474 U/L (15-37) H Alanine Aminotransferase (ALT/SGPT) 487 U/L (12-78) H Alkaline Phosphatase 191 U/L (46-116) H Ammonia 35 umol/L (11-32) H Total Creatine Kinase 211 U/L (26-308) Troponin I 0.429 ng/mL (0.000-0.056) Pro-B-Type Natriuretic Peptide 6673 pg/mL (0-125) H Total Protein 4.8 G/DL (6.4-8.2) L Albumin 1.0 G/DL (3.4-5.0) L Globulin 3.8 g/dL Albumin/Globulin Ratio 0.3 (1.0-2.7) L Arterial Blood pH 7.493 (7.350-7.450) Arterial Blood Partial Pressure CO2 22.8 mmHg (35.0-45.0) *L Arterial Blood Partial Pressure O2 73.8 mmHg (75.0-100.0) L Arterial Blood HCO3 17.1 mmol/L (22.0-26.0) *L Arterial Blood Oxygen Saturation 93.8 % (95-100) L Arterial Blood Base Excess -5.3 (-2-2) L Harvey Test Positive Test 10/12/18 09:55 Lactic Acid Level 2.50 mmol/L (0.66-2.22) H Po Li MD Oct 12, 2018 10:58
--- NOTE | 2018-10-12 11:07 | Diagnostic Imaging Report ---
Indication: Dyspnea Technique: Supine view of the abdomen Comparison: 10/11/2018 Findings: There is increased pleural fluid on the left, with now only a small amount of residual aerated lung. Small right-sided pleural effusion, generalized interstitial congestion persists. Tracheostomy and PICC remain Impression: Increasing left pleural effusion, over one day Other stable findings as described
--- NOTE | 2018-10-12 11:41 | Infectious Diseases Prog Note ---
Assessment/Plan Assessment/Plan 62 yo male with PMHx of Quadriplegia with G-tube, HTN, DM and Schizophenia who was [facility] ED [facility] for [facility]MS. Fever, SP Shock- combination of septic and hypovolemnic (bleeding from ELISABET drain)- off pressors now -10/08 CXR: Slightly improved but persistent interstitial congestion, bilateral interstitial and airspace infiltrates versus edema, over 2 days Bcx NTD u/a wbc 5-10 Displaced GT with perforation c/w peritonitis and hematoma/abscess formation -10/02 CT abd/p: Interval exploratory laparotomy, status post splenectomy, status post removal of gastrostomy tube with 2 abdominal drains noted. Abnormal appearance of the stomach with marked wall thickening and pneumatosis. Abnormal appearance of small bowel and large bowel showing wall thickening and enhancement may be related to enteritis and/or colitis. Trace ascites -09/22 SP Exploratory laparotomy. Repair of gastric perforation. Evacuation of abdominal omental / lesser sac hematoma. Evacuation of perisplenic hematoma/ abscess. Omentectomy. Splenectomy. Abdominal washout. Tracheostomy. -09/21 CT abd/p: The gastrostomy tube appears to be partially intraluminal and partially communicate with a large intramural collection involving mostly the inferior posterior wall of the stomach. There is some anterior wall pneumatosis. Contrast within the collection most likely represents instilled enteric contrast, but could also represent extravasated vascular contrast. There is evidence of rupture of this collection into the peritoneal space, with extravasated contrast in the left upper quadrant. There is anterior gastric wall intramural pneumatosis as well as a small amount of free extraluminal gas. Moderate ascites. Enhancement of much of the peritoneum raises concern for peritonitis. There may also be loculated intraperitoneal collections which could represent abscesses, predominantly adjacent to the tip of the right hepatic lobe, subcapsular in the spleen, and within the left upper quadrant. Thick-walled sigmoid colon, transverse colon and equivocally the proximal jejunum. Likely reactive related to the above, but could also indicate enteritis /colitis changes Leukocytosis, improving =3/ cdiff neg -09/29 L ELISABET drain (+purulebnt fluid) cx : C. tropicalis -2/18 u/a neg, ucx NTD Bcx NTD CXR: Over one day, interim development of bilateral supraclavicular subcutaneous emphysema and pneumomediastinum, etiology not demonstrated. Persistent low lung volumes with basilar atelectatic changes and left-sided pleural effusion -09/20 ucx NTD; u/a neg -09/19 CXR: Bilateral pleural effusions and bibasilar atelectasis/airspace disease are stable. Transaminitis: Improving Diarrhea- -09/27 Cdiff neg Sepsis - Probably PNA , s/p Rx 09/22 CXR: Bilateral pleural effusions, basilar atelectatic changes, and interstitial congestive changes are stable CXR 09/07/18 - possible left sided consolidation Inf neg 09/07/18 BCx 2/ sets diphteroids, 08/12 setse S. epi (contaminants); 09/11 Bcx NTD 09/07/18 SCx - NF 09/07/18 UCx - Neg 09/09 Cdiff neg GIB YI HTN DM Schizophenia Quadriplegia. G- tube dependent Plan -Cont Meropenem #5 and IV Daptomycin #5 given decompensation -Continue IV Micafungin #20 -10/08 SP Zosyn #17 -f/u Repeat cultures -09/28 SP Flagyl #3 - 09/19/18 SP Zosyn #10 - 09/17/18 SP Vancmocyin #10 - 09/09/18 Ertapenem #3 - Monitor CBC and temps -Sx f/u -wound care -critically ill, on ICU; poor px Subjective Allergies: Coded Allergies: No Known Allergies (Unverified , 08/14/18) Subjective afebrile wbc improved off pressors now Cdiff neg BCx NTD Objective Vital Signs Last 24 Hour Vital Signs Date Time Temp Pulse Resp B/P (MAP) Pulse Ox O2 Delivery O2 Flow Rate FiO2 10/12/18 11:00 103 23 96/66 99 Mechanical Ventilator 35 10/12/18 10:00 102 23 101/68 98 Mechanical Ventilator 35 10/12/18 09:03 103 18 35 10/12/18 09:00 102 22 97/66 100 Mechanical Ventilator 35 10/12/18 08:00 97.8 103 22 96/66 100 Mechanical Ventilator 35 10/12/18 08:00 35 10/12/18 08:00 Mechanical Ventilator Mechanical Ventilator 10/12/18 07:48 102 18 35 10/12/18 07:00 103 21 94/67 97 Mechanical Ventilator 35 10/12/18 06:00 102 22 95/64 97 Mechanical Ventilator 35 10/12/18 05:00 102 23 101/64 98 Mechanical Ventilator 35 10/12/18 04:41 99 21 35 10/12/18 04:00 104 10/12/18 04:00 35 10/12/18 04:00 Mechanical Ventilator Mechanical Ventilator 10/12/18 04:00 98.0 107 30 102/70 97 Mechanical Ventilator 35 10/12/18 03:00 101 22 92/62 98 Mechanical Ventilator 35 10/12/18 02:42 96 16 35 10/12/18 02:00 102 27 98/64 98 Mechanical Ventilator 35 10/12/18 01:00 104 25 88/65 100 Mechanical Ventilator 35 10/12/18 00:55 107 23 35 10/12/18 00:00 96.8 101 21 90/67 100 Mechanical Ventilator 35 10/12/18 00:00 35 10/12/18 00:00 Mechanical Ventilator Mechanical Ventilator 10/12/18 00:00 102 10/11/18 23:00 118 29 35 10/11/18 23:00 110 21 89/64 100 Mechanical Ventilator 35 10/11/18 22:00 101 20 96/68 100 Mechanical Ventilator 35 10/11/18 22:00 96/68 10/11/18 21:00 101 19 91/71 100 Mechanical Ventilator 35 10/11/18 20:44 101 18 35 10/11/18 20:30 108 23 93/71 100 Mechanical Ventilator 35 10/11/18 20:00 98.1 102 21 100/76 100 Mechanical Ventilator 35 10/11/18 20:00 Mechanical Ventilator Mechanical Ventilator 10/11/18 20:00 40 10/11/18 20:00 103 10/11/18 19:26 101 17 35 10/11/18 19:00 104 21 99/71 100 Mechanical Ventilator 35 10/11/18 18:00 103 20 99/77 100 Mechanical Ventilator 35 10/11/18 17:30 98 21 103/73 100 Mechanical Ventilator 35 10/11/18 17:00 99 21 96/66 100 Mechanical Ventilator 35 10/11/18 16:54 100 17 35 10/11/18 16:45 96 21 92/65 100 Mechanical Ventilator 35 10/11/18 16:30 100 20 91/64 100 Mechanical Ventilator 35 10/11/18 16:15 100 21 99/67 100 Mechanical Ventilator 35 10/11/18 16:00 98.7 101 21 104/69 100 Mechanical Ventilator 35 10/11/18 16:00 103 10/11/18 16:00 Mechanical Ventilator Mechanical Ventilator 10/11/18 16:00 40 10/11/18 16:00 104/69 10/11/18 15:30 98 20 128/78 100 Mechanical Ventilator 35 10/11/18 15:00 105 18 105/76 100 Mechanical Ventilator 35 10/11/18 14:31 99 18 35 10/11/18 14:30 98 19 103/77 100 Mechanical Ventilator 35 10/11/18 14:00 100 19 104/73 100 Mechanical Ventilator 35 10/11/18 14:00 112/71 10/11/18 13:30 98 18 110/76 100 Mechanical Ventilator 35 10/11/18 13:00 110/77 10/11/18 13:00 96 17 110/77 100 Mechanical Ventilator 35 10/11/18 12:38 96 18 35 10/11/18 12:30 103 23 107/79 100 Mechanical Ventilator 35 10/11/18 12:00 97.9 99 16 118/80 96 Mechanical Ventilator 35 10/11/18 12:00 40 10/11/18 12:00 Mechanical Ventilator Mechanical Ventilator 10/11/18 12:00 118/80 10/11/18 12:00 95 Height (Feet): 5 Height (Inches): 5.00 Weight (Pounds): 157 Objective Gen: NAD, On vent satting well 35% O2 HEENT: NCAT, MMM, EOMI LUNGS: CTAB, No W/C, CARDS: RRR, S1, S2, No M/R/G, ABD: Soft, NT, distended, + BS,G tube (No E/P) NEURO: Intubated, not following Laboratory Tests Test 10/11/18 12:00 10/11/18 15:30 10/12/18 05:00 10/12/18 08:57 Lactic Acid Level 4.00 mmol/L (0.4-2.0) H 3.70 mmol/L (0.66-2.22) H 2.60 mmol/L (0.4-2.0) H White Blood Count 20.4 K/UL (4.8-10.8) H Red Blood Count 2.30 M/UL (4.70-6.10) L Hemoglobin 7.4 G/DL (14.2-18.0) L Hematocrit 20.1 % (42.0-52.0) L Mean Corpuscular Volume 87 FL (80-99) Mean Corpuscular Hemoglobin 32.3 PG (27.0-31.0) H Mean Corpuscular Hemoglobin Concent 36.9 G/DL (32.0-36.0) H Red Cell Distribution Width 13.1 % (11.6-14.8) Platelet Count 106 K/UL (150-450) L Mean Platelet Volume 12.2 FL (6.5-10.1) H Neutrophils (%) (Auto) % (45.0-75.0) Lymphocytes (%) (Auto) % (20.0-45.0) Monocytes (%) (Auto) % (1.0-10.0) Eosinophils (%) (Auto) % (0.0-3.0) Basophils (%) (Auto) % (0.0-2.0) Differential Total Cells Counted 100 Neutrophils % (Manual) 83 % (45-75) H Lymphocytes % (Manual) 2 % (20-45) L Monocytes % (Manual) 4 % (1-10) Eosinophils % (Manual) 1 % (0-3) Basophils % (Manual) 0 % (0-2) Metamyelocytes % 3 % (0-0) H Myelocytes % 4 % (0-0) H Band Neutrophils 3 % (0-8) Nucleated Red Blood Cells 20 /100 WBC Platelet Estimate Decreased L Platelet Morphology Normal Prothrombin Time 13.8 SEC (9.30-11.50) H Prothromb Time International Ratio 1.3 (0.9-1.1) H Activated Partial Thromboplast Time 42 SEC (23-33) H Sodium Level 138 MMOL/L (136-145) Potassium Level 2.5 MMOL/L (3.5-5.1) *L Chloride Level 101 MMOL/L (98-107) Carbon Dioxide Level 21 MMOL/L (21-32) Anion Gap 16 mmol/L (5-15) H Blood Urea Nitrogen 67 mg/dL (7-18) H Creatinine 5.5 MG/DL (0.55-1.30) H Estimat Glomerular Filtration Rate 10.7 mL/min (>60) Glucose Level 121 MG/DL (74-106) #H Uric Acid 10.0 MG/DL (2.6-7.2) H Calcium Level 5.8 MG/DL (8.5-10.1) *L Phosphorus Level 9.1 MG/DL (2.5-4.9) H Magnesium Level 1.8 MG/DL (1.8-2.4) Total Bilirubin 2.8 MG/DL (0.2-1.0) H Direct Bilirubin 1.9 MG/DL (0.0-0.3) H Gamma Glutamyl Transpeptidase 102 U/L (5-85) H Aspartate Amino Transf (AST/SGOT) 474 U/L (15-37) H Alanine Aminotransferase (ALT/SGPT) 487 U/L (12-78) H Alkaline Phosphatase 191 U/L (46-116) H Ammonia 35 umol/L (11-32) H Total Creatine Kinase 211 U/L (26-308) Troponin I 0.429 ng/mL (0.000-0.056) Pro-B-Type Natriuretic Peptide 6673 pg/mL (0-125) H Total Protein 4.8 G/DL (6.4-8.2) L Albumin 1.0 G/DL (3.4-5.0) L Globulin 3.8 g/dL Albumin/Globulin Ratio 0.3 (1.0-2.7) L Arterial Blood pH 7.493 (7.350-7.450) Arterial Blood Partial Pressure CO2 22.8 mmHg (35.0-45.0) *L Arterial Blood Partial Pressure O2 73.8 mmHg (75.0-100.0) L Arterial Blood HCO3 17.1 mmol/L (22.0-26.0) *L Arterial Blood Oxygen Saturation 93.8 % (95-100) L Arterial Blood Base Excess -5.3 (-2-2) L Harvey Test Positive Test 10/12/18 09:55 Lactic Acid Level 2.50 mmol/L (0.66-2.22) H Current Medications Medications (Trade) Dose Ordered Sig/Julito Route PRN Reason Start Time Stop Time Status Last Admin Dose Admin Acetaminophen (Tylenol) 650 mg Q4H PRN NG Mild Pain/Temp > 100.5 10/07/18 21:18 11/06/18 21:17 Acetaminophen (Tylenol) 650 mg Q4H PRN RECTAL Mild Pain (Pain Scale 1-3) 10/07/18 21:18 11/06/18 21:17 Albuterol/ Ipratropium (Albuterol/ Ipratropium) 3 ml Q4H PRN HHN sob 10/07/18 23:00 10/12/18 22:59 Chlorhexidine Gluconate (Camila-Hex 2%) 1 applic DAILY@2000 TOPIC 10/08/18 20:00 10/15/18 19:59 10/11/18 20:26 Daptomycin 450 mg/ Sodium Chloride 55 ml @ 100 mls/hr Q48H IV 10/12/18 18:00 10/19/18 17:59 Dextrose (Dextrose 50%) 50 ml PRN PRN IV Hypoglycemia 10/08/18 19:30 11/07/18 19:29 10/08/18 19:41 Dextrose/Sodium Chloride 1,000 ml @ 75 mls/hr [id number] IV 10/11/18 13:00 11/10/18 12:59 10/12/18 01:58 Loperamide HCl (Imodium) 4 mg TIDPRN PRN ORAL Diarrhea 10/07/18 21:20 11/06/18 21:19 Meropenem 1 gm/ Sodium Chloride 55 ml @ 110 mls/hr Q12H IVPB 10/08/18 16:00 10/13/18 15:59 10/12/18 04:06 Micafungin Sodium 100 mg/Sodium Chloride 110 ml @ 110 mls/hr Q24H IVPB 10/08/18 18:00 10/12/18 17:59 10/11/18 18:11 Norepinephrine Bitartrate 16 mg/ Dextrose 500 ml @ 0 mls/hr Q24H IV 10/07/18 22:00 11/06/18 21:59 10/10/18 17:55 Pantoprazole (Protonix) 40 mg Q12HR IVP 10/07/18 22:00 11/06/18 21:59 10/12/18 09:40 Potassium Chloride 100 ml @ 100 mls/hr Q1H IVPB 10/12/18 10:00 10/12/18 15:59 10/12/18 11:37 Sodium Chloride 500 ml @ 999 mls/hr Q31M PRN IV SBP<90mmHg 10/07/18 21:18 11/06/18 21:17 Kell Larkin M.D. Oct 12, 2018 11:41
--- NOTE | 2018-10-12 13:30 | Nephrology Progress Note ---
Assessment/Plan Problem List: (1) ATN (acute tubular necrosis) Assessment: Cr rising (2) Septic shock (3) Lactic acid acidosis (4) Metabolic acidosis (5) Hyperkalemia (6) G tube feedings (7) Acute respiratory failure Assessment ? internal bleed no surgical candidate post op 09/22/18: Trach, Splenectomy, Perf.... 10/08- condition worsenned- shock- septic- pressors Sever metabolic acidosis improved Acute Oliguric Renal Failure pressors, lower dose presented with Shock , likely septic Acute renal failure resolved Acute metabolic acidosis resolved Hyperkalemia PEG Recent Pneumonia Plan K IV discussed with RN Poor prognosis, remains full code !! hemodynamic support change IV fluid on lower pressors not much can be add from renal stand now trached 09/22 post laparatomy 09/22 on pressors again pulmonary support Fluid challenge as needed antibiotics monitor renal parameters and ABG Subjective ROS Limited/Unobtainable: Yes Objective Objective Last 24 Hour Vital Signs Date Time Temp Pulse Resp B/P (MAP) Pulse Ox O2 Delivery O2 Flow Rate FiO2 10/12/18 13:00 105 24 103/70 100 Mechanical Ventilator 35 10/12/18 12:00 Mechanical Ventilator Mechanical Ventilator 10/12/18 12:00 98.6 101 26 110/74 99 Mechanical Ventilator 35 10/12/18 12:00 35 10/12/18 12:00 99 10/12/18 11:00 103 23 96/66 99 Mechanical Ventilator 35 10/12/18 10:00 102 23 101/68 98 Mechanical Ventilator 35 10/12/18 09:03 103 18 35 10/12/18 09:00 102 22 97/66 100 Mechanical Ventilator 35 10/12/18 08:00 100 10/12/18 08:00 97.8 103 22 96/66 100 Mechanical Ventilator 35 10/12/18 08:00 35 10/12/18 08:00 Mechanical Ventilator Mechanical Ventilator 10/12/18 07:48 102 18 35 10/12/18 07:00 103 21 94/67 97 Mechanical Ventilator 35 10/12/18 06:00 102 22 95/64 97 Mechanical Ventilator 35 10/12/18 05:00 102 23 101/64 98 Mechanical Ventilator 35 10/12/18 04:41 99 21 35 10/12/18 04:00 104 10/12/18 04:00 35 10/12/18 04:00 Mechanical Ventilator Mechanical Ventilator 10/12/18 04:00 98.0 107 30 102/70 97 Mechanical Ventilator 35 10/12/18 03:00 101 22 92/62 98 Mechanical Ventilator 35 10/12/18 02:42 96 16 35 10/12/18 02:00 102 27 98/64 98 Mechanical Ventilator 35 10/12/18 01:00 104 25 88/65 100 Mechanical Ventilator 35 10/12/18 00:55 107 23 35 10/12/18 00:00 96.8 101 21 90/67 100 Mechanical Ventilator 35 10/12/18 00:00 35 10/12/18 00:00 Mechanical Ventilator Mechanical Ventilator 10/12/18 00:00 102 10/11/18 23:00 118 29 35 10/11/18 23:00 110 21 89/64 100 Mechanical Ventilator 35 10/11/18 22:00 101 20 96/68 100 Mechanical Ventilator 35 10/11/18 22:00 96/68 10/11/18 21:00 101 19 91/71 100 Mechanical Ventilator 35 10/11/18 20:44 101 18 35 10/11/18 20:30 108 23 93/71 100 Mechanical Ventilator 35 10/11/18 20:00 98.1 102 21 100/76 100 Mechanical Ventilator 35 10/11/18 20:00 Mechanical Ventilator Mechanical Ventilator 10/11/18 20:00 40 10/11/18 20:00 103 10/11/18 19:26 101 17 35 10/11/18 19:00 104 21 99/71 100 Mechanical Ventilator 35 10/11/18 18:00 103 20 99/77 100 Mechanical Ventilator 35 10/11/18 17:30 98 21 103/73 100 Mechanical Ventilator 35 10/11/18 17:00 99 21 96/66 100 Mechanical Ventilator 35 10/11/18 16:54 100 17 35 10/11/18 16:45 96 21 92/65 100 Mechanical Ventilator 35 10/11/18 16:30 100 20 91/64 100 Mechanical Ventilator 35 10/11/18 16:15 100 21 99/67 100 Mechanical Ventilator 35 10/11/18 16:00 98.7 101 21 104/69 100 Mechanical Ventilator 35 10/11/18 16:00 103 10/11/18 16:00 Mechanical Ventilator Mechanical Ventilator 10/11/18 16:00 40 3/3/19 16:00 104/69 10/11/18 15:30 98 20 128/78 100 Mechanical Ventilator 35 10/11/18 15:00 105 18 105/76 100 Mechanical Ventilator 35 10/11/18 14:31 99 18 35 10/11/18 14:30 98 19 103/77 100 Mechanical Ventilator 35 10/11/18 14:00 100 19 104/73 100 Mechanical Ventilator 35 10/11/18 14:00 112/71 10/11/18 13:30 98 18 110/76 100 Mechanical Ventilator 35 Intake and Output 10/11/18 10/12/18 18:59 06:59 Intake Total 1162.46 ml 1027.5 ml Output Total 640 ml 630 ml Balance 522.46 ml 397.5 ml IV Total 1092.46 ml 1027.5 ml Other 70 ml Output Urine Total 105 ml 70 ml Stool Total 250 ml 200 ml Drainage Total 285 ml 360 ml # Bowel Movements 2 Laboratory Tests 10/11/18 15:30: Lactic Acid Level 3.70H 10/12/18 05:00: Lactic Acid Level 2.60H, White Blood Count 20.4H, Red Blood Count 2.30L, Hemoglobin 7.4L, Hematocrit 20.1L, Mean Corpuscular Volume 87, Mean Corpuscular Hemoglobin 32.3H, Mean Corpuscular Hemoglobin Concent 36.9H, Red Cell Distribution Width 13.1, Platelet Count 106L, Mean Platelet Volume 12.2H, Neutrophils (%) (Auto) , Lymphocytes (%) (Auto) , Monocytes (%) (Auto) , Eosinophils (%) (Auto) , Basophils (%) (Auto) , Differential Total Cells Counted 100, Neutrophils % (Manual) 83H, Lymphocytes % (Manual) 2L, Monocytes % (Manual) 4, Eosinophils % (Manual) 1, Basophils % (Manual) 0, Metamyelocytes % 3H, Myelocytes % 4H, Band Neutrophils 3, Nucleated Red Blood Cells 20, Platelet Estimate DecreasedL, Platelet Morphology Normal, Prothrombin Time 13.8H, Prothromb Time International Ratio 1.3H, Activated Partial Thromboplast Time 42H , Sodium Level 138, Potassium Level 2.5*L, Chloride Level 101, Carbon Dioxide Level 21, Anion Gap 16H, Blood Urea Nitrogen 67H, Creatinine 5.5H, Estimat Glomerular Filtration Rate 10.7, Glucose Level 121#H, Uric Acid 10.0H, Calcium Level 5.8*L, Phosphorus Level 9.1H, Magnesium Level 1.8, Total Bilirubin 2.8H, Direct Bilirubin 1.9H, Gamma Glutamyl Transpeptidase 102H, Aspartate Amino Transf (AST/SGOT) 474H, Alanine Aminotransferase (ALT/SGPT) 487H, Alkaline Phosphatase 191H, Ammonia 35H, Total Creatine Kinase 211, Troponin I 0.429H, Pro -B-Type Natriuretic Peptide 6673H, Total Protein 4.8L, Albumin 1.0L, Globulin 3.8, Albumin/Globulin Ratio 0.3L 10/12/18 08:57: Arterial Blood pH 7.493H, Arterial Blood Partial Pressure CO2 22.8*L, Arterial Blood Partial Pressure O2 73.8L, Arterial Blood HCO3 17.1*L, Arterial Blood Oxygen Saturation 93.8L, Arterial Blood Base Excess -5.3L, Harvey Test Positive 10/12/18 09:55: Lactic Acid Level 2.50H Height (Feet): 5 Height (Inches): 5.00 Weight (Pounds): 157 EENT: other - trach Cardiovascular: tachycardia Respiratory/Chest: decreased breath sounds Abdomen: distended Objective no other changes Josesito Smalls MD Oct 12, 2018 13:30
--- NOTE | 2018-10-12 13:54 | General Progress Note ---
Assessment/Plan Problem List: (1) UTI (urinary tract infection) ICD Codes: N39.0 - Urinary tract infection, site not specified SNOMED: 61402558 (2) Renal failure ICD Codes: N19 - Unspecified kidney failure SNOMED: 41250791 (3) Anemia ICD Codes: D64.9 - Anemia, unspecified SNOMED: 849052070 (4) Acute respiratory failure ICD Codes: J96.00 - Acute respiratory failure, unspecified whether with hypoxia or hypercapnia SNOMED: 06481576 (5) Pneumonia ICD Codes: J18.9 - Pneumonia, unspecified organism SNOMED: 176940038 (6) Septic shock ICD Codes: A41.9 - Sepsis, unspecified organism; R65.21 - Severe sepsis with septic shock SNOMED: 67491102 (7) ATN (acute tubular necrosis) ICD Codes: N17.0 - Acute kidney failure with tubular necrosis SNOMED: 64803630 Status: unchanged Assessment/Plan vent abx wound care neph f/u gi eval, tpn cbc bmp am pressor support transfuse prn Subjective Constitutional: Reports: weakness Allergies: Coded Allergies: No Known Allergies (Unverified , 08/14/18) All Systems: reviewed and negative except above Subjective trach vent altered lethargic in icu on pressor Objective Last 24 Hour Vital Signs Date Time Temp Pulse Resp B/P (MAP) Pulse Ox O2 Delivery O2 Flow Rate FiO2 10/12/18 13:29 102 18 35 10/12/18 13:00 105 24 103/70 100 Mechanical Ventilator 35 10/12/18 12:00 Mechanical Ventilator Mechanical Ventilator 10/12/18 12:00 98.6 101 26 110/74 99 Mechanical Ventilator 35 10/12/18 12:00 35 10/12/18 12:00 99 10/12/18 11:03 101 18 35 10/12/18 11:00 103 23 96/66 99 Mechanical Ventilator 35 10/12/18 10:00 102 23 101/68 98 Mechanical Ventilator 35 10/12/18 09:03 103 18 35 10/12/18 09:00 102 22 97/66 100 Mechanical Ventilator 35 10/12/18 08:00 100 10/12/18 08:00 97.8 103 22 96/66 100 Mechanical Ventilator 35 10/12/18 08:00 35 10/12/18 08:00 Mechanical Ventilator Mechanical Ventilator 10/12/18 07:48 102 18 35 10/12/18 07:00 103 21 94/67 97 Mechanical Ventilator 35 10/12/18 06:00 102 22 95/64 97 Mechanical Ventilator 35 10/12/18 05:00 102 23 101/64 98 Mechanical Ventilator 35 10/12/18 04:41 99 21 35 10/12/18 04:00 104 10/12/18 04:00 35 10/12/18 04:00 Mechanical Ventilator Mechanical Ventilator 10/12/18 04:00 98.0 107 30 102/70 97 Mechanical Ventilator 35 10/12/18 03:00 101 22 92/62 98 Mechanical Ventilator 35 10/12/18 02:42 96 16 35 10/12/18 02:00 102 27 98/64 98 Mechanical Ventilator 35 10/12/18 01:00 104 25 88/65 100 Mechanical Ventilator 35 10/12/18 00:55 107 23 35 10/12/18 00:00 96.8 101 21 90/67 100 Mechanical Ventilator 35 10/12/18 00:00 35 10/12/18 00:00 Mechanical Ventilator Mechanical Ventilator 10/12/18 00:00 102 10/11/18 23:00 118 29 35 10/11/18 23:00 110 21 89/64 100 Mechanical Ventilator 35 10/11/18 22:00 101 20 96/68 100 Mechanical Ventilator 35 10/11/18 22:00 96/68 10/11/18 21:00 101 19 91/71 100 Mechanical Ventilator 35 10/11/18 20:44 101 18 35 10/11/18 20:30 108 23 93/71 100 Mechanical Ventilator 35 10/11/18 20:00 98.1 102 21 100/76 100 Mechanical Ventilator 35 10/11/18 20:00 Mechanical Ventilator Mechanical Ventilator 10/11/18 20:00 40 10/11/18 20:00 103 10/11/18 19:26 101 17 35 10/11/18 19:00 104 21 99/71 100 Mechanical Ventilator 35 10/11/18 18:00 103 20 99/77 100 Mechanical Ventilator 35 10/11/18 17:30 98 21 103/73 100 Mechanical Ventilator 35 10/11/18 17:00 99 21 96/66 100 Mechanical Ventilator 35 10/11/18 16:54 100 17 35 10/11/18 16:45 96 21 92/65 100 Mechanical Ventilator 35 10/11/18 16:30 100 20 91/64 100 Mechanical Ventilator 35 10/11/18 16:15 100 21 99/67 100 Mechanical Ventilator 35 10/11/18 16:00 98.7 101 21 104/69 100 Mechanical Ventilator 35 10/11/18 16:00 103 10/11/18 16:00 Mechanical Ventilator Mechanical Ventilator 10/11/18 16:00 40 10/11/18 16:00 104/69 10/11/18 15:30 98 20 128/78 100 Mechanical Ventilator 35 10/11/18 15:00 105 18 105/76 100 Mechanical Ventilator 35 10/11/18 14:31 99 18 35 10/11/18 14:30 98 19 103/77 100 Mechanical Ventilator 35 10/11/18 14:00 100 19 104/73 100 Mechanical Ventilator 35 10/11/18 14:00 112/71 Intake and Output 10/11/18 10/12/18 18:59 06:59 Intake Total 1162.46 ml 1027.5 ml Output Total 640 ml 630 ml Balance 522.46 ml 397.5 ml IV Total 1092.46 ml 1027.5 ml Other 70 ml Output Urine Total 105 ml 70 ml Stool Total 250 ml 200 ml Drainage Total 285 ml 360 ml # Bowel Movements 2 Laboratory Tests 10/11/18 15:30: Lactic Acid Level 3.70H 10/12/18 05:00: Lactic Acid Level 2.60H, White Blood Count 20.4H, Red Blood Count 2.30L, Hemoglobin 7.4L, Hematocrit 20.1L, Mean Corpuscular Volume 87, Mean Corpuscular Hemoglobin 32.3H, Mean Corpuscular Hemoglobin Concent 36.9H, Red Cell Distribution Width 13.1, Platelet Count 106L, Mean Platelet Volume 12.2H, Neutrophils (%) (Auto) , Lymphocytes (%) (Auto) , Monocytes (%) (Auto) , Eosinophils (%) (Auto) , Basophils (%) (Auto) , Differential Total Cells Counted 100, Neutrophils % (Manual) 83H, Lymphocytes % (Manual) 2L, Monocytes % (Manual) 4, Eosinophils % (Manual) 1, Basophils % (Manual) 0, Metamyelocytes % 3H, Myelocytes % 4H, Band Neutrophils 3, Nucleated Red Blood Cells 20, Platelet Estimate DecreasedL, Platelet Morphology Normal, Prothrombin Time 13.8H, Prothromb Time International Ratio 1.3H, Activated Partial Thromboplast Time 42H , Sodium Level 138, Potassium Level 2.5*L, Chloride Level 101, Carbon Dioxide Level 21, Anion Gap 16H, Blood Urea Nitrogen 67H, Creatinine 5.5H, Estimat Glomerular Filtration Rate 10.7, Glucose Level 121#H, Uric Acid 10.0H, Calcium Level 5.8*L, Phosphorus Level 9.1H, Magnesium Level 1.8, Total Bilirubin 2.8H, Direct Bilirubin 1.9H, Gamma Glutamyl Transpeptidase 102H, Aspartate Amino Transf (AST/SGOT) 474H, Alanine Aminotransferase (ALT/SGPT) 487H, Alkaline Phosphatase 191H, Ammonia 35H, Total Creatine Kinase 211, Troponin I 0.429H, Pro -B-Type Natriuretic Peptide 6673H, Total Protein 4.8L, Albumin 1.0L, Globulin 3.8, Albumin/Globulin Ratio 0.3L 10/12/18 08:57: Arterial Blood pH 7.493H, Arterial Blood Partial Pressure CO2 22.8*L, Arterial Blood Partial Pressure O2 73.8L, Arterial Blood HCO3 17.1*L, Arterial Blood Oxygen Saturation 93.8L, Arterial Blood Base Excess -5.3L, Harvey Test Positive 10/12/18 09:55: Lactic Acid Level 2.50H Height (Feet): 5 Height (Inches): 5.00 Weight (Pounds): 157 General Appearance: lethargic EENT: normal ENT inspection Neck: normal alignment Cardiovascular: normal peripheral pulses, normal rate, regular rhythm Respiratory/Chest: chest wall non-tender, decreased breath sounds Abdomen: soft, hypoactive bowel sounds Extremities: normal inspection Edema: no edema noted Arm (L), no edema noted Arm (R), no edema noted Leg (L), no edema noted Leg (R), no edema noted Pedal (L), no edema noted Pedal (R), no edema noted Generalized Neurologic: motor weakness Skin: normal pigmentation, warm/dry Jasmeet Reynoso DO Oct 12, 2018 13:54
--- NOTE | 2018-10-12 16:00 | Progress Note ---
DATE: 10/12/2018 SUBJECTIVE: This is a 62-year-old male patient with septic shock. He is very confused and disorganized DIAGNOSIS: Paranoid schizophrenia. PLAN: Continue treatment with Risperdal 0.25 mg nightly. 20 minutes of behavioral management provided. Virgie Mcdermott M.D. DR: NOAH JOB#: [id number] CC:
--- NOTE | 2018-10-12 16:31 | Cardiac Electrophysiology PN ---
Assessment/Plan Assessment/Plan 1. Septic and hemorrhagic shock with Lactic acidosis and WBC still aound 48K On Abx and off Levophed 2. Sinus tachycardia due to sepsis, anemia and dehydration. No fibrillation. EF 75%. Repeat ECG showed sinus tach 150 3. Troponin elevation due to renal failure. EF 75%. 4. VDRF. S/P Tracheostomy 09/22/18 5. Rhabdomyolysis with CPK in thousands contributing to renal failure. 6. Acute renal failure and severe hyperkalemia. FU by Dr. Smalls 7. Dysphagia, Hx of PEG placement but was dislodged. 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 Left one Bloody. Right one serous FU Dr. Fry 8. GI bleed. S/P EGD by Dr. Horton. S/p PRBCs DW RN in ICU Subjective Subjective On the Vent via tracheostomy. Off pressors Objective Last 24 Hour Vital Signs Date Time Temp Pulse Resp B/P (MAP) Pulse Ox O2 Delivery O2 Flow Rate FiO2 10/12/18 15:21 103 21 35 10/12/18 13:29 102 18 35 10/12/18 13:00 105 24 103/70 100 Mechanical Ventilator 35 10/12/18 12:00 Mechanical Ventilator Mechanical Ventilator 10/12/18 12:00 98.6 101 26 110/74 99 Mechanical Ventilator 35 10/12/18 12:00 35 10/12/18 12:00 99 10/12/18 11:03 101 18 35 10/12/18 11:00 103 23 96/66 99 Mechanical Ventilator 35 10/12/18 10:00 102 23 101/68 98 Mechanical Ventilator 35 10/12/18 09:03 103 18 35 10/12/18 09:00 102 22 97/66 100 Mechanical Ventilator 35 10/12/18 08:00 100 10/12/18 08:00 97.8 103 22 96/66 100 Mechanical Ventilator 35 10/12/18 08:00 35 10/12/18 08:00 Mechanical Ventilator Mechanical Ventilator 10/12/18 07:48 102 18 35 10/12/18 07:00 103 21 94/67 97 Mechanical Ventilator 35 10/12/18 06:00 102 22 95/64 97 Mechanical Ventilator 35 10/12/18 05:00 102 23 101/64 98 Mechanical Ventilator 35 10/12/18 04:41 99 21 35 10/12/18 04:00 104 10/12/18 04:00 35 10/12/18 04:00 Mechanical Ventilator Mechanical Ventilator 10/12/18 04:00 98.0 107 30 102/70 97 Mechanical Ventilator 35 10/12/18 03:00 101 22 92/62 98 Mechanical Ventilator 35 10/12/18 02:42 96 16 35 10/12/18 02:00 102 27 98/64 98 Mechanical Ventilator 35 10/12/18 01:00 104 25 88/65 100 Mechanical Ventilator 35 10/12/18 00:55 107 23 35 10/12/18 00:00 96.8 101 21 90/67 100 Mechanical Ventilator 35 10/12/18 00:00 35 10/12/18 00:00 Mechanical Ventilator Mechanical Ventilator 10/12/18 00:00 102 10/11/18 23:00 118 29 35 10/11/18 23:00 110 21 89/64 100 Mechanical Ventilator 35 10/11/18 22:00 101 20 96/68 100 Mechanical Ventilator 35 10/11/18 22:00 96/68 10/11/18 21:00 101 19 91/71 100 Mechanical Ventilator 35 10/11/18 20:44 101 18 35 10/11/18 20:30 108 23 93/71 100 Mechanical Ventilator 35 10/11/18 20:00 98.1 102 21 100/76 100 Mechanical Ventilator 35 10/11/18 20:00 Mechanical Ventilator Mechanical Ventilator 10/11/18 20:00 40 10/11/18 20:00 103 10/11/18 19:26 101 17 35 10/11/18 19:00 104 21 99/71 100 Mechanical Ventilator 35 10/11/18 18:00 103 20 99/77 100 Mechanical Ventilator 35 10/11/18 17:30 98 21 103/73 100 Mechanical Ventilator 35 10/11/18 17:00 99 21 96/66 100 Mechanical Ventilator 35 10/11/18 16:54 100 17 35 10/11/18 16:45 96 21 92/65 100 Mechanical Ventilator 35 10/11/18 16:30 100 20 91/64 100 Mechanical Ventilator 35 Intake and Output 10/11/18 10/12/18 19:00 07:00 Intake Total 1241.84 ml 917.5 ml Output Total 640 ml 637 ml Balance 601.84 ml 280.5 ml IV Total 1171.84 ml 917.5 ml Other 70 ml Output Urine Total 105 ml 77 ml Stool Total 250 ml 200 ml Drainage Total 285 ml 360 ml # Bowel Movements 2 Laboratory Tests Test 10/12/18 05:00 10/12/18 08:57 10/12/18 09:55 White Blood Count 20.4 K/UL (4.8-10.8) H Red Blood Count 2.30 M/UL (4.70-6.10) L Hemoglobin 7.4 G/DL (14.2-18.0) L Hematocrit 20.1 % (42.0-52.0) L Mean Corpuscular Volume 87 FL (80-99) Mean Corpuscular Hemoglobin 32.3 PG (27.0-31.0) H Mean Corpuscular Hemoglobin Concent 36.9 G/DL (32.0-36.0) H Red Cell Distribution Width 13.1 % (11.6-14.8) Platelet Count 106 K/UL (150-450) L Mean Platelet Volume 12.2 FL (6.5-10.1) H Neutrophils (%) (Auto) % (45.0-75.0) Lymphocytes (%) (Auto) % (20.0-45.0) Monocytes (%) (Auto) % (1.0-10.0) Eosinophils (%) (Auto) % (0.0-3.0) Basophils (%) (Auto) % (0.0-2.0) Differential Total Cells Counted 100 Neutrophils % (Manual) 83 % (45-75) H Lymphocytes % (Manual) 2 % (20-45) L Monocytes % (Manual) 4 % (1-10) Eosinophils % (Manual) 1 % (0-3) Basophils % (Manual) 0 % (0-2) Metamyelocytes % 3 % (0-0) H Myelocytes % 4 % (0-0) H Band Neutrophils 3 % (0-8) Nucleated Red Blood Cells 20 /100 WBC Platelet Estimate Decreased L Platelet Morphology Normal Prothrombin Time 13.8 SEC (9.30-11.50) H Prothromb Time International Ratio 1.3 (0.9-1.1) H Activated Partial Thromboplast Time 42 SEC (23-33) H Sodium Level 138 MMOL/L (136-145) Potassium Level 2.5 MMOL/L (3.5-5.1) *L Chloride Level 101 MMOL/L (98-107) Carbon Dioxide Level 21 MMOL/L (21-32) Anion Gap 16 mmol/L (5-15) H Blood Urea Nitrogen 67 mg/dL (7-18) H Creatinine 5.5 MG/DL (0.55-1.30) H Estimat Glomerular Filtration Rate 10.7 mL/min (>60) Glucose Level 121 MG/DL (74-106) #H Lactic Acid Level 2.60 mmol/L (0.4-2.0) H 2.50 mmol/L (0.66-2.22) H Uric Acid 10.0 MG/DL (2.6-7.2) H Calcium Level 5.8 MG/DL (8.5-10.1) *L Phosphorus Level 9.1 MG/DL (2.5-4.9) H Magnesium Level 1.8 MG/DL (1.8-2.4) Total Bilirubin 2.8 MG/DL (0.2-1.0) H Direct Bilirubin 1.9 MG/DL (0.0-0.3) H Gamma Glutamyl Transpeptidase 102 U/L (5-85) H Aspartate Amino Transf (AST/SGOT) 474 U/L (15-37) H Alanine Aminotransferase (ALT/SGPT) 487 U/L (12-78) H Alkaline Phosphatase 191 U/L (46-116) H Ammonia 35 umol/L (11-32) H Total Creatine Kinase 211 U/L (26-308) Troponin I 0.429 ng/mL (0.000-0.056) C-Reactive Protein, Quantitative 13.5 mg/dL (0.00-0.90) H Pro-B-Type Natriuretic Peptide 6673 pg/mL (0-125) H Total Protein 4.8 G/DL (6.4-8.2) L Albumin 1.0 G/DL (3.4-5.0) L Globulin 3.8 g/dL Albumin/Globulin Ratio 0.3 (1.0-2.7) L Arterial Blood pH 7.493 (7.350-7.450) Arterial Blood Partial Pressure CO2 22.8 mmHg (35.0-45.0) *L Arterial Blood Partial Pressure O2 73.8 mmHg (75.0-100.0) L Arterial Blood HCO3 17.1 mmol/L (22.0-26.0) *L Arterial Blood Oxygen Saturation 93.8 % (95-100) L Arterial Blood Base Excess -5.3 (-2-2) L Harvey Test Positive Objective HEENT: S/P tracheostomy. LUNGS: Coarse rhonchi. CARDIOVASCULAR: Regular S1 and S2. ABDOMEN: Incision slightly oozing and has 2 drains EXTREMITIES: No pitting edema. Jasbir Madsen MD Oct 12, 2018 16:31
[2018-10-12] MEDS ORDERED: DAPTOmycin 450 MG in NS 55 ML IV SCH (18:00)
[2018-10-12] MEDS: Micafungin 100 MG in NS 110 ML IVPB SCH (18:07)
[2018-10-12] MEDS ORDERED: Tubing IV Secondary IV ONE (20:11)
[2018-10-12] MEDS ORDERED: NS 275ml ONE (20:11)
[2018-10-12] MEDS ORDERED: D5NS 1000ml IV ONE (20:11)
[2018-10-12] MEDS: Dyna-Hex 2% Top Sol 2oz TOPIC SCH (21:15)
[2018-10-12] MEDS: Norepinephrine Bitartrate 16 MG in D5W 500ml 484 ML IV SCH (22:00)
[2018-10-13] VITALS (11 sets, daily range): BP systolic 100–120; BP diastolic 49–80
[2018-10-13] MEDS: Meropenem 1 GM in NS 55 ML IVPB SCH ×2 (03:32→16:09)
[2018-10-13] MEDS: D5NS 1,000 ML IV SCH ×3 (05:13→20:45)
[2018-10-13 06:01] LABS: HEMOGLOBIN 7.4 G/DL (14.2-18.0); MEAN CORPUSCULAR VOLUME 89 FL (80-99); PLATELET COUNT 114 K/UL (150-450); RED BLOOD COUNT 2.26 M/UL (4.70-6.10); RED CELL DISTRIBUTION WIDTH 13.6 % (11.6-14.8); WHITE BLOOD COUNT 19.5 K/UL (4.8-10.8)
[2018-10-13 06:27] LABS: ALANINE AMINOTRANSFERASE 293 U/L (12-78); ALBUMIN 0.9 G/DL (3.4-5.0); ALBUMIN/GLOBULIN RATIO 0.2 (1.0-2.7); ALKALINE PHOSPHATASE 171 U/L (46-116); ANION GAP 18 mmol/L (5-15); ASPARTATE AMINO TRANSFERASE 252 U/L (15-37); BILIRUBIN,TOTAL 2.6 MG/DL (0.2-1.0); BLOOD UREA NITROGEN 73 mg/dL (7-18); CARBON DIOXIDE 17 MMOL/L (21-32); CHLORIDE 103 MMOL/L (98-107); PHOSPHORUS 10.3 MG/DL (2.5-4.9); POTASSIUM 2.9 MMOL/L (3.5-5.1); SODIUM 138 MMOL/L (136-145)
[2018-10-13 06:33] LABS: BILIRUBIN,DIRECT 1.8 MG/DL (0.0-0.3)
[2018-10-13] MEDS ORDERED: Acetaminophen 650mg/20.3ml NG PRN (07:01)
[2018-10-13] MEDS ORDERED: Acetaminophen 650 MG SUPP RECTAL PRN (07:02)
[2018-10-13] MEDS ORDERED: Loperamide 2mg cap ORAL PRN (07:02)
[2018-10-13] MEDS: Pantoprazole Inj IVP SCH ×2 (08:25→20:43)
--- NOTE | 2018-10-13 10:33 | Diagnostic Imaging Report ---
Indication: Dyspnea Technique: One view of the chest Comparison: 10/12/2018 Findings: Left pleural effusion appears slightly improved as compared to prior exam, with slightly increased pulmonary aeration, but is still masses. Large right pleural effusion is probably unchanged, although there is slightly more fluid within the minor fissure. Tracheostomy remains. Left arm PICC remains. Impression: Slightly improved left pleural effusion, over one day. Other stable findings as described
--- NOTE | 2018-10-13 10:37 | Pulmonolgy Critical Care Note ---
Critical Care - Asmt/Plan Problems: (1) Septic shock (2) Acute respiratory failure (3) ATN (acute tubular necrosis) (4) Metabolic acidosis (5) Gastric rupture Respiratory: monitor respiratory rate, adjust FIO2, CXR Cardiac: continue to monitor HR/BP Renal: F/U I&O, keep IV fluid Infectious Disease: check cultures Gastrointestinal: continue feedings/current rate, hold feedings Endocrine: monitor blood sugar, check HgA1C Hematologic: transfuse if hgb<8.5 Neurologic: PRN Ativan, PRN Morphine, keep patient comfortable Prophylaxis: Protonix, Heparin Disposition: keep in ICU Time Spent (Minutes): 40 Notes Reviewed: cardio, renal Discussed with: nurses, consultants, senior case managermanager clinical services - Objective Last 24 Hour Vital Signs Date Time Temp Pulse Resp B/P (MAP) Pulse Ox O2 Delivery O2 Flow Rate FiO2 10/13/18 08:30 121 22 35 10/13/18 08:00 Mechanical Ventilator Mechanical Ventilator 10/13/18 08:00 35 10/13/18 08:00 98.4 108 24 117/71 100 Mechanical Ventilator 35 10/13/18 08:00 116 10/13/18 06:42 106 19 35 10/13/18 06:00 98 20 117/78 99 Mechanical Ventilator 35 10/13/18 05:22 102 22 35 10/13/18 05:00 98 20 116/79 99 Mechanical Ventilator 35 10/13/18 04:00 98.8 98 20 117/78 100 Mechanical Ventilator 35 10/13/18 04:00 35 10/13/18 04:00 98 10/13/18 04:00 Mechanical Ventilator Mechanical Ventilator 10/13/18 03:17 111 27 35 10/13/18 03:00 113 25 114/65 99 Mechanical Ventilator 35 10/13/18 02:00 101 18 105/73 100 Mechanical Ventilator 35 10/13/18 01:28 110 17 35 10/13/18 01:00 103 18 107/74 100 Mechanical Ventilator 35 10/13/18 00:00 98.9 104 19 105/74 100 Mechanical Ventilator 35 10/13/18 00:00 108 10/13/18 00:00 Mechanical Ventilator Mechanical Ventilator 10/13/18 00:00 35 10/12/18 23:13 105 27 35 10/12/18 23:00 101 23 107/72 99 Mechanical Ventilator 35 10/12/18 22:00 104/68 10/12/18 22:00 105 23 104/68 99 Mechanical Ventilator 35 10/12/18 21:24 107 24 35 10/12/18 21:00 104 23 106/71 99 Mechanical Ventilator 35 10/12/18 20:00 Mechanical Ventilator Mechanical Ventilator 10/12/18 20:00 35 10/12/18 20:00 104 10/12/18 20:00 101 23 106/73 99 Mechanical Ventilator 35 10/12/18 19:35 103 24 35 10/12/18 19:00 99 9 119/62 100 Mechanical Ventilator 35 10/12/18 18:00 105 13 123/61 100 Mechanical Ventilator 35 10/12/18 17:10 99 14 35 10/12/18 17:00 112 16 111/64 99 Mechanical Ventilator 35 10/12/18 16:00 35 10/12/18 16:00 Mechanical Ventilator Mechanical Ventilator 10/12/18 16:00 98.5 103 22 101/72 100 Mechanical Ventilator 35 10/12/18 16:00 103 10/12/18 15:21 103 21 35 10/12/18 15:00 105 23 104/75 100 Mechanical Ventilator 35 10/12/18 14:00 103 23 101/71 100 Mechanical Ventilator 35 10/12/18 13:29 102 18 35 10/12/18 13:00 105 24 103/70 100 Mechanical Ventilator 35 10/12/18 12:00 Mechanical Ventilator Mechanical Ventilator 10/12/18 12:00 98.6 101 26 110/74 99 Mechanical Ventilator 35 10/12/18 12:00 35 10/12/18 12:00 99 10/12/18 11:03 101 18 35 10/12/18 11:00 103 23 96/66 99 Mechanical Ventilator 35 Status: awake Condition: critical HEENT: atraumatic Neck: full ROM Lungs: clear Heart: HR/BP stable Abdomen: soft, active bowel sounds Extremities: no C/C/E, edema Decubiti: location Accucheck: 65 Critical Care - Subjective ROS Limited/Unobtainable: Yes Condition: critical EKG Rhythm: Sinus Rhythm FI02: 35 Vent Support Breath Rate: 14 Vent Support Mode: AC Vent Tidal Volume: 500 Sputum Amount: Moderate PEEP: 0.0 PIP: 26 Tube Feeding Amount: 0 I&O: Intake and Output 10/12/18 10/13/18 18:59 06:59 Intake Total 1110 ml 990 ml Output Total 1171 ml 990 ml Balance -61 ml 0 ml IV Total 1110 ml 990 ml Output Urine Total 191 ml 240 ml Stool Total 700 ml 600 ml Drainage Total 280 ml 150 ml CXR: no change Labs: Laboratory Tests Test 10/12/18 19:20 10/13/18 05:00 10/13/18 08:40 Lactic Acid Level 1.80 mmol/L (0.4-2.0) White Blood Count 19.5 K/UL (4.8-10.8) H Red Blood Count 2.26 M/UL (4.70-6.10) L Hemoglobin 7.4 G/DL (14.2-18.0) L Hematocrit 20.0 % (42.0-52.0) L Mean Corpuscular Volume 89 FL (80-99) Mean Corpuscular Hemoglobin 32.9 PG (27.0-31.0) H Mean Corpuscular Hemoglobin Concent 37.1 G/DL (32.0-36.0) H Red Cell Distribution Width 13.6 % (11.6-14.8) Platelet Count 114 K/UL (150-450) L Mean Platelet Volume 10.8 FL (6.5-10.1) H Neutrophils (%) (Auto) % (45.0-75.0) Lymphocytes (%) (Auto) % (20.0-45.0) Monocytes (%) (Auto) % (1.0-10.0) Eosinophils (%) (Auto) % (0.0-3.0) Basophils (%) (Auto) % (0.0-2.0) Differential Total Cells Counted 100 Neutrophils % (Manual) 83 % (45-75) H Lymphocytes % (Manual) 6 % (20-45) L Monocytes % (Manual) 0 % (1-10) L Eosinophils % (Manual) 1 % (0-3) Basophils % (Manual) 0 % (0-2) Metamyelocytes % 2 % (0-0) H Myelocytes % 4 % (0-0) H Band Neutrophils 4 % (0-8) Nucleated Red Blood Cells 3 /100 WBC Platelet Estimate Decreased L Platelet Morphology Normal Polychromasia 2+ Anisocytosis 1+ Sodium Level 138 MMOL/L (136-145) Potassium Level 2.9 MMOL/L (3.5-5.1) L Chloride Level 103 MMOL/L (98-107) Carbon Dioxide Level 17 MMOL/L (21-32) L Anion Gap 18 mmol/L (5-15) H Blood Urea Nitrogen 73 mg/dL (7-18) H Creatinine 6.0 MG/DL (0.55-1.30) H Estimat Glomerular Filtration Rate 9.6 mL/min (>60) Glucose Level 126 MG/DL (74-106) H Uric Acid 11.5 MG/DL (2.6-7.2) H Calcium Level 6.0 MG/DL (8.5-10.1) L Phosphorus Level 10.3 MG/DL (2.5-4.9) H Magnesium Level 1.9 MG/DL (1.8-2.4) Total Bilirubin 2.6 MG/DL (0.2-1.0) H Direct Bilirubin 1.8 MG/DL (0.0-0.3) H Aspartate Amino Transf (AST/SGOT) 252 U/L (15-37) H Alanine Aminotransferase (ALT/SGPT) 293 U/L (12-78) H Alkaline Phosphatase 171 U/L (46-116) H Pro-B-Type Natriuretic Peptide 7021 pg/mL (0-125) H Total Protein 5.1 G/DL (6.4-8.2) L Albumin 0.9 G/DL (3.4-5.0) L Globulin 4.2 g/dL Albumin/Globulin Ratio 0.2 (1.0-2.7) L Arterial Blood pH 7.451 (7.350-7.450) Arterial Blood Partial Pressure CO2 21.7 mmHg (35.0-45.0) *L Arterial Blood Partial Pressure O2 90.4 mmHg (75.0-100.0) Arterial Blood HCO3 14.8 mmol/L (22.0-26.0) *L Arterial Blood Oxygen Saturation 95.7 % (95-100) Arterial Blood Base Excess -8.1 (-2-2) L Harvey Test Positive Po Li MD Oct 13, 2018 10:37
--- NOTE | 2018-10-13 12:24 | GI Progress Note ---
Assessment/Plan Problems: (1) G tube feedings ICD Codes: Z93.1 - Gastrostomy status SNOMED: 897355801, 406438254 (2) Protein-calorie malnutrition, severe ICD Codes: E43 - Unspecified severe protein-calorie malnutrition SNOMED: 889382304 (3) Anemia ICD Codes: D64.9 - Anemia, unspecified SNOMED: 807660183 (4) GI bleed ICD Codes: K92.2 - Gastrointestinal hemorrhage, unspecified SNOMED: 74557007 Status: progressing Status Narrative Discussed with Dr. Horton Assessment/Plan s/p repair of gastric perforation septic, now in ICU RECOMMENDATIONS: fu surgical recommendations, high risk for PEG hold TPN, will reinsert NGT today G-tube feedings per RD prn transfusion ppi abx fu labs The patient was seen and examined at bedside and all new and available data was reviewed in the patients chart. I agree with the above findings, impression and plan. (Patient seen earlier today. Signature stamp does not reflect patient encounter time.). - Arthur Horton MD Subjective Subjective limited Objective Last 24 Hour Vital Signs Date Time Temp Pulse Resp B/P (MAP) Pulse Ox O2 Delivery O2 Flow Rate FiO2 10/13/18 10:49 103 18 35 10/13/18 08:30 121 22 35 10/13/18 08:00 Mechanical Ventilator Mechanical Ventilator 10/13/18 08:00 35 10/13/18 08:00 98.4 108 24 117/71 100 Mechanical Ventilator 35 10/13/18 08:00 116 10/13/18 06:42 106 19 35 10/13/18 06:00 98 20 117/78 99 Mechanical Ventilator 35 10/13/18 05:22 102 22 35 10/13/18 05:00 98 20 116/79 99 Mechanical Ventilator 35 10/13/18 04:00 98.8 98 20 117/78 100 Mechanical Ventilator 35 10/13/18 04:00 35 10/13/18 04:00 98 10/13/18 04:00 Mechanical Ventilator Mechanical Ventilator 10/13/18 03:17 111 27 35 10/13/18 03:00 113 25 114/65 99 Mechanical Ventilator 35 10/13/18 02:00 101 18 105/73 100 Mechanical Ventilator 35 10/13/18 01:28 110 17 35 10/13/18 01:00 103 18 107/74 100 Mechanical Ventilator 35 10/13/18 00:00 98.9 104 19 105/74 100 Mechanical Ventilator 35 10/13/18 00:00 108 10/13/18 00:00 Mechanical Ventilator Mechanical Ventilator 10/13/18 00:00 35 10/12/18 23:13 105 27 35 10/12/18 23:00 101 23 107/72 99 Mechanical Ventilator 35 10/12/18 22:00 104/68 10/12/18 22:00 105 23 104/68 99 Mechanical Ventilator 35 10/12/18 21:24 107 24 35 10/12/18 21:00 104 23 106/71 99 Mechanical Ventilator 35 10/12/18 20:00 Mechanical Ventilator Mechanical Ventilator 10/12/18 20:00 35 10/12/18 20:00 104 10/12/18 20:00 101 23 106/73 99 Mechanical Ventilator 35 10/12/18 19:35 103 24 35 10/12/18 19:00 99 9 119/62 100 Mechanical Ventilator 35 10/12/18 18:00 105 13 123/61 100 Mechanical Ventilator 35 10/12/18 17:10 99 14 35 10/12/18 17:00 112 16 111/64 99 Mechanical Ventilator 35 10/12/18 16:00 35 10/12/18 16:00 Mechanical Ventilator Mechanical Ventilator 10/12/18 16:00 98.5 103 22 101/72 100 Mechanical Ventilator 35 10/12/18 16:00 103 10/12/18 15:21 103 21 35 10/12/18 15:00 105 23 104/75 100 Mechanical Ventilator 35 10/12/18 14:00 103 23 101/71 100 Mechanical Ventilator 35 10/12/18 13:29 102 18 35 10/12/18 13:00 105 24 103/70 100 Mechanical Ventilator 35 Intake and Output 10/12/18 10/13/18 18:59 06:59 Intake Total 1110 ml 990 ml Output Total 1171 ml 990 ml Balance -61 ml 0 ml IV Total 1110 ml 990 ml Output Urine Total 191 ml 240 ml Stool Total 700 ml 600 ml Drainage Total 280 ml 150 ml Laboratory Tests Test 10/12/18 19:20 10/13/18 05:00 10/13/18 08:40 Lactic Acid Level 1.80 mmol/L (0.4-2.0) White Blood Count 19.5 K/UL (4.8-10.8) H Red Blood Count 2.26 M/UL (4.70-6.10) L Hemoglobin 7.4 G/DL (14.2-18.0) L Hematocrit 20.0 % (42.0-52.0) L Mean Corpuscular Volume 89 FL (80-99) Mean Corpuscular Hemoglobin 32.9 PG (27.0-31.0) H Mean Corpuscular Hemoglobin Concent 37.1 G/DL (32.0-36.0) H Red Cell Distribution Width 13.6 % (11.6-14.8) Platelet Count 114 K/UL (150-450) L Mean Platelet Volume 10.8 FL (6.5-10.1) H Neutrophils (%) (Auto) % (45.0-75.0) Lymphocytes (%) (Auto) % (20.0-45.0) Monocytes (%) (Auto) % (1.0-10.0) Eosinophils (%) (Auto) % (0.0-3.0) Basophils (%) (Auto) % (0.0-2.0) Differential Total Cells Counted 100 Neutrophils % (Manual) 83 % (45-75) H Lymphocytes % (Manual) 6 % (20-45) L Monocytes % (Manual) 0 % (1-10) L Eosinophils % (Manual) 1 % (0-3) Basophils % (Manual) 0 % (0-2) Metamyelocytes % 2 % (0-0) H Myelocytes % 4 % (0-0) H Band Neutrophils 4 % (0-8) Nucleated Red Blood Cells 3 /100 WBC Platelet Estimate Decreased L Platelet Morphology Normal Polychromasia 2+ Anisocytosis 1+ Sodium Level 138 MMOL/L (136-145) Potassium Level 2.9 MMOL/L (3.5-5.1) L Chloride Level 103 MMOL/L (98-107) Carbon Dioxide Level 17 MMOL/L (21-32) L Anion Gap 18 mmol/L (5-15) H Blood Urea Nitrogen 73 mg/dL (7-18) H Creatinine 6.0 MG/DL (0.55-1.30) H Estimat Glomerular Filtration Rate 9.6 mL/min (>60) Glucose Level 126 MG/DL (74-106) H Uric Acid 11.5 MG/DL (2.6-7.2) H Calcium Level 6.0 MG/DL (8.5-10.1) L Phosphorus Level 10.3 MG/DL (2.5-4.9) H Magnesium Level 1.9 MG/DL (1.8-2.4) Total Bilirubin 2.6 MG/DL (0.2-1.0) H Direct Bilirubin 1.8 MG/DL (0.0-0.3) H Aspartate Amino Transf (AST/SGOT) 252 U/L (15-37) H Alanine Aminotransferase (ALT/SGPT) 293 U/L (12-78) H Alkaline Phosphatase 171 U/L (46-116) H Pro-B-Type Natriuretic Peptide 7021 pg/mL (0-125) H Total Protein 5.1 G/DL (6.4-8.2) L Albumin 0.9 G/DL (3.4-5.0) L Globulin 4.2 g/dL Albumin/Globulin Ratio 0.2 (1.0-2.7) L Arterial Blood pH 7.451 (7.350-7.450) Arterial Blood Partial Pressure CO2 21.7 mmHg (35.0-45.0) *L Arterial Blood Partial Pressure O2 90.4 mmHg (75.0-100.0) Arterial Blood HCO3 14.8 mmol/L (22.0-26.0) *L Arterial Blood Oxygen Saturation 95.7 % (95-100) Arterial Blood Base Excess -8.1 (-2-2) L Harvey Test Positive Height (Feet): 5 Height (Inches): 5.00 Weight (Pounds): 159 General Appearance: WD/WN, no apparent distress, alert Cardiovascular: normal rate Respiratory/Chest: normal breath sounds, no respiratory distress Abdominal Exam: normal bowel sounds, non tender, soft, incision site Extremities: non-tender Becki Holt EASEMENT WORKER Oct 13, 2018 12:24
--- NOTE | 2018-10-13 12:36 | General Progress Note ---
Progress Note Progress Note downgraded from ICU labs trending down hb low but stable okay for NG tube to start tube feeds instead of tpn drain output unchanged. Isreal Lynne Oct 13, 2018 12:36
--- NOTE | 2018-10-13 13:27 | Infectious Diseases Prog Note ---
Assessment/Plan Assessment/Plan 62 yo male with PMHx of Quadriplegia with G-tube, HTN, DM and Schizophenia who was sent to the ED fromhis halfway for AMS. Fever, SP Shock- combination of septic and hypovolemnic (bleeding from ELISABET drain)- off pressors now -10/08 CXR: Slightly improved but persistent interstitial congestion, bilateral interstitial and airspace infiltrates versus edema, over 2 days Bcx NTD u/a wbc 5-10 Displaced GT with perforation c/w peritonitis and hematoma/abscess formation -10/02 CT abd/p: Interval exploratory laparotomy, status post splenectomy, status post removal of gastrostomy tube with 2 abdominal drains noted. Abnormal appearance of the stomach with marked wall thickening and pneumatosis. Abnormal appearance of small bowel and large bowel showing wall thickening and enhancement may be related to enteritis and/or colitis. Trace ascites -09/22 SP Exploratory laparotomy. Repair of gastric perforation. Evacuation of abdominal omental / lesser sac hematoma. Evacuation of perisplenic hematoma/ abscess. Omentectomy. Splenectomy. Abdominal washout. Tracheostomy. -09/21 CT abd/p: The gastrostomy tube appears to be partially intraluminal and partially communicate with a large intramural collection involving mostly the inferior posterior wall of the stomach. There is some anterior wall pneumatosis. Contrast within the collection most likely represents instilled enteric contrast, but could also represent extravasated vascular contrast. There is evidence of rupture of this collection into the peritoneal space, with extravasated contrast in the left upper quadrant. There is anterior gastric wall intramural pneumatosis as well as a small amount of free extraluminal gas. Moderate ascites. Enhancement of much of the peritoneum raises concern for peritonitis. There may also be loculated intraperitoneal collections which could represent abscesses, predominantly adjacent to the tip of the right hepatic lobe, subcapsular in the spleen, and within the left upper quadrant. Thick-walled sigmoid colon, transverse colon and equivocally the proximal jejunum. Likely reactive related to the above, but could also indicate enteritis /colitis changes Leukocytosis, improving =3/ cdiff neg -09/29 L ELISABET drain (+purulebnt fluid) cx : C. tropicalis -2/18 u/a neg, ucx NTD Bcx NTD CXR: Over one day, interim development of bilateral supraclavicular subcutaneous emphysema and pneumomediastinum, etiology not demonstrated. Persistent low lung volumes with basilar atelectatic changes and left-sided pleural effusion -09/20 ucx NTD; u/a neg -09/19 CXR: Bilateral pleural effusions and bibasilar atelectasis/airspace disease are stable. Transaminitis: Improving YI, worsening Diarrhea- -09/27 Cdiff neg Sepsis - Probably PNA , s/p Rx 09/22 CXR: Bilateral pleural effusions, basilar atelectatic changes, and interstitial congestive changes are stable CXR 09/07/18 - possible left sided consolidation Inf neg 09/07/18 BCx 2/ sets diphteroids, 08/12 setse S. epi (contaminants); 09/11 Bcx NTD 09/07/18 SCx - NF 09/07/18 UCx - Neg 09/09 Cdiff neg GIB YI HTN DM Schizophenia Quadriplegia. G- tube dependent Plan -Cont Meropenem #6 and IV Daptomycin #6 given decompensation -Continue IV Micafungin #21 -10/08 SP Zosyn #17 -f/u Repeat cultures -09/28 SP Flagyl #3 - 09/19/18 SP Zosyn #10 - 09/17/18 SP Vancmocyin #10 - 09/09/18 Ertapenem #3 - Monitor CBC and temps -Sx f/u -wound care - poor px Subjective Allergies: Coded Allergies: No Known Allergies (Unverified , 08/14/18) Subjective afebrile wbc improving Cr worsening downgraded from ICU to [facility]BIE Objective Vital Signs Last 24 Hour Vital Signs Date Time Temp Pulse Resp B/P (MAP) Pulse Ox O2 Delivery O2 Flow Rate FiO2 10/13/18 12:00 97.0 69 18 119/49 100 Mechanical Ventilator 35 10/13/18 12:00 Mechanical Ventilator Mechanical Ventilator 10/13/18 12:00 35 10/13/18 11:31 108 10/13/18 10:49 103 18 35 10/13/18 08:30 121 22 35 10/13/18 08:00 Mechanical Ventilator Mechanical Ventilator 10/13/18 08:00 35 10/13/18 08:00 98.4 108 24 117/71 100 Mechanical Ventilator 35 10/13/18 08:00 116 10/13/18 06:42 106 19 35 10/13/18 06:00 98 20 117/78 99 Mechanical Ventilator 35 10/13/18 05:22 102 22 35 10/13/18 05:00 98 20 116/79 99 Mechanical Ventilator 35 10/13/18 04:00 98.8 98 20 117/78 100 Mechanical Ventilator 35 10/13/18 04:00 35 10/13/18 04:00 98 10/13/18 04:00 Mechanical Ventilator Mechanical Ventilator 10/13/18 03:17 111 27 35 10/13/18 03:00 113 25 114/65 99 Mechanical Ventilator 35 10/13/18 02:00 101 18 105/73 100 Mechanical Ventilator 35 10/13/18 01:28 110 17 35 10/13/18 01:00 103 18 107/74 100 Mechanical Ventilator 35 10/13/18 00:00 98.9 104 19 105/74 100 Mechanical Ventilator 35 10/13/18 00:00 108 10/13/18 00:00 Mechanical Ventilator Mechanical Ventilator 10/13/18 00:00 35 10/12/18 23:13 105 27 35 10/12/18 23:00 101 23 107/72 99 Mechanical Ventilator 35 10/12/18 22:00 104/68 10/12/18 22:00 105 23 104/68 99 Mechanical Ventilator 35 10/12/18 21:24 107 24 35 10/12/18 21:00 104 23 106/71 99 Mechanical Ventilator 35 10/12/18 20:00 Mechanical Ventilator Mechanical Ventilator 10/12/18 20:00 35 10/12/18 20:00 104 10/12/18 20:00 101 23 106/73 99 Mechanical Ventilator 35 10/12/18 19:35 103 24 35 10/12/18 19:00 99 9 119/62 100 Mechanical Ventilator 35 10/12/18 18:00 105 13 123/61 100 Mechanical Ventilator 35 10/12/18 17:10 99 14 35 10/12/18 17:00 112 16 111/64 99 Mechanical Ventilator 35 10/12/18 16:00 35 10/12/18 16:00 Mechanical Ventilator Mechanical Ventilator 10/12/18 16:00 98.5 103 22 101/72 100 Mechanical Ventilator 35 10/12/18 16:00 103 10/12/18 15:21 103 21 35 10/12/18 15:00 105 23 104/75 100 Mechanical Ventilator 35 10/12/18 14:00 103 23 101/71 100 Mechanical Ventilator 35 10/12/18 13:29 102 18 35 Height (Feet): 5 Height (Inches): 5.00 Weight (Pounds): 159 Objective Gen: NAD, On vent satting well 35% O2 HEENT: NCAT, MMM, EOMI LUNGS: CTAB, No W/C, CARDS: RRR, S1, S2, No M/R/G, ABD: Soft, NT, distended, + BS,G tube (No E/P) NEURO: Intubated, not following Laboratory Tests Test 10/12/18 19:20 10/13/18 05:00 10/13/18 08:40 Lactic Acid Level 1.80 mmol/L (0.4-2.0) White Blood Count 19.5 K/UL (4.8-10.8) H Red Blood Count 2.26 M/UL (4.70-6.10) L Hemoglobin 7.4 G/DL (14.2-18.0) L Hematocrit 20.0 % (42.0-52.0) L Mean Corpuscular Volume 89 FL (80-99) Mean Corpuscular Hemoglobin 32.9 PG (27.0-31.0) H Mean Corpuscular Hemoglobin Concent 37.1 G/DL (32.0-36.0) H Red Cell Distribution Width 13.6 % (11.6-14.8) Platelet Count 114 K/UL (150-450) L Mean Platelet Volume 10.8 FL (6.5-10.1) H Neutrophils (%) (Auto) % (45.0-75.0) Lymphocytes (%) (Auto) % (20.0-45.0) Monocytes (%) (Auto) % (1.0-10.0) Eosinophils (%) (Auto) % (0.0-3.0) Basophils (%) (Auto) % (0.0-2.0) Differential Total Cells Counted 100 Neutrophils % (Manual) 83 % (45-75) H Lymphocytes % (Manual) 6 % (20-45) L Monocytes % (Manual) 0 % (1-10) L Eosinophils % (Manual) 1 % (0-3) Basophils % (Manual) 0 % (0-2) Metamyelocytes % 2 % (0-0) H Myelocytes % 4 % (0-0) H Band Neutrophils 4 % (0-8) Nucleated Red Blood Cells 3 /100 WBC Platelet Estimate Decreased L Platelet Morphology Normal Polychromasia 2+ Anisocytosis 1+ Sodium Level 138 MMOL/L (136-145) Potassium Level 2.9 MMOL/L (3.5-5.1) L Chloride Level 103 MMOL/L (98-107) Carbon Dioxide Level 17 MMOL/L (21-32) L Anion Gap 18 mmol/L (5-15) H Blood Urea Nitrogen 73 mg/dL (7-18) H Creatinine 6.0 MG/DL (0.55-1.30) H Estimat Glomerular Filtration Rate 9.6 mL/min (>60) Glucose Level 126 MG/DL (74-106) H Uric Acid 11.5 MG/DL (2.6-7.2) H Calcium Level 6.0 MG/DL (8.5-10.1) L Phosphorus Level 10.3 MG/DL (2.5-4.9) H Magnesium Level 1.9 MG/DL (1.8-2.4) Total Bilirubin 2.6 MG/DL (0.2-1.0) H Direct Bilirubin 1.8 MG/DL (0.0-0.3) H Aspartate Amino Transf (AST/SGOT) 252 U/L (15-37) H Alanine Aminotransferase (ALT/SGPT) 293 U/L (12-78) H Alkaline Phosphatase 171 U/L (46-116) H Pro-B-Type Natriuretic Peptide 7021 pg/mL (0-125) H Total Protein 5.1 G/DL (6.4-8.2) L Albumin 0.9 G/DL (3.4-5.0) L Globulin 4.2 g/dL Albumin/Globulin Ratio 0.2 (1.0-2.7) L Arterial Blood pH 7.451 (7.350-7.450) Arterial Blood Partial Pressure CO2 21.7 mmHg (35.0-45.0) *L Arterial Blood Partial Pressure O2 90.4 mmHg (75.0-100.0) Arterial Blood HCO3 14.8 mmol/L (22.0-26.0) *L Arterial Blood Oxygen Saturation 95.7 % (95-100) Arterial Blood Base Excess -8.1 (-2-2) L Harvey Test Positive Current Medications Medications (Trade) Dose Ordered Sig/Julito Route PRN Reason Start Time Stop Time Status Last Admin Dose Admin Acetaminophen (Tylenol) 650 mg Q4H PRN NG Mild Pain/Temp > 100.5 10/13/18 07:01 11/06/18 07:00 Acetaminophen (Tylenol) 650 mg Q4H PRN RECTAL Mild Pain (Pain Scale 1-3) 10/13/18 07:02 11/06/18 07:01 Chlorhexidine Gluconate (Camila-Hex 2%) 1 applic DAILY@2000 TOPIC 10/13/18 20:00 10/15/18 19:59 Daptomycin 450 mg/ Sodium Chloride 55 ml @ 100 mls/hr Q48H IV 10/14/18 18:00 10/19/18 17:59 Dextrose (Dextrose 50%) 50 ml PRN PRN IV Hypoglycemia 10/13/18 19:30 11/07/18 19:29 Dextrose/Sodium Chloride 1,000 ml @ 75 mls/hr [id number] IV 10/13/18 06:58 11/12/18 06:57 10/13/18 08:25 Loperamide HCl (Imodium) 4 mg TIDPRN PRN ORAL Diarrhea 10/13/18 07:02 11/06/18 07:01 Meropenem 1 gm/ Sodium Chloride 55 ml @ 110 mls/hr Q12H IVPB 10/13/18 16:00 10/19/18 15:59 Micafungin Sodium 100 mg/Sodium Chloride 110 ml @ 110 mls/hr Q24H IVPB 10/13/18 18:00 10/19/18 23:00 Pantoprazole (Protonix) 40 mg Q12HR IVP 10/13/18 09:00 11/06/18 21:59 10/13/18 08:25 Potassium Chloride 100 ml @ 100 mls/hr Q1H IVPB 10/13/18 10:30 10/13/18 14:29 10/13/18 13:08 Sodium Chloride 500 ml @ 999 mls/hr Q31M PRN IV SBP<90mmHg 10/13/18 07:00 11/12/18 06:59 Kell Larkin M.D. Oct 13, 2018 13:27
--- NOTE | 2018-10-13 14:13 | General Progress Note ---
Assessment/Plan Problem List: (1) UTI (urinary tract infection) ICD Codes: N39.0 - Urinary tract infection, site not specified SNOMED: 45753820 (2) Renal failure ICD Codes: N19 - Unspecified kidney failure SNOMED: 57722471 (3) Anemia ICD Codes: D64.9 - Anemia, unspecified SNOMED: 460946724 (4) Acute respiratory failure ICD Codes: J96.00 - Acute respiratory failure, unspecified whether with hypoxia or hypercapnia SNOMED: 53959436 (5) Pneumonia ICD Codes: J18.9 - Pneumonia, unspecified organism SNOMED: 117490988 (6) Septic shock ICD Codes: A41.9 - Sepsis, unspecified organism; R65.21 - Severe sepsis with septic shock SNOMED: 57164230 (7) ATN (acute tubular necrosis) ICD Codes: N17.0 - Acute kidney failure with tubular necrosis SNOMED: 37202806 Status: unchanged Assessment/Plan vent abx wound care neph f/u gi eval, tpn cbc bmp am pressor support transfuse prn Subjective Constitutional: Reports: weakness Allergies: Coded Allergies: No Known Allergies (Unverified , 08/14/18) All Systems: reviewed and negative except above Subjective trach vent altered lethargic Objective Last 24 Hour Vital Signs Date Time Temp Pulse Resp B/P (MAP) Pulse Ox O2 Delivery O2 Flow Rate FiO2 10/13/18 12:55 106 21 35 10/13/18 12:00 97.0 69 18 119/49 100 Mechanical Ventilator 35 10/13/18 12:00 Mechanical Ventilator Mechanical Ventilator 10/13/18 12:00 35 10/13/18 11:31 108 10/13/18 10:49 103 18 35 10/13/18 08:30 121 22 35 10/13/18 08:00 Mechanical Ventilator Mechanical Ventilator 10/13/18 08:00 35 10/13/18 08:00 98.4 108 24 117/71 100 Mechanical Ventilator 35 10/13/18 08:00 116 10/13/18 06:42 106 19 35 10/13/18 06:00 98 20 117/78 99 Mechanical Ventilator 35 10/13/18 05:22 102 22 35 10/13/18 05:00 98 20 116/79 99 Mechanical Ventilator 35 10/13/18 04:00 98.8 98 20 117/78 100 Mechanical Ventilator 35 10/13/18 04:00 35 10/13/18 04:00 98 10/13/18 04:00 Mechanical Ventilator Mechanical Ventilator 10/13/18 03:17 111 27 35 10/13/18 03:00 113 25 114/65 99 Mechanical Ventilator 35 10/13/18 02:00 101 18 105/73 100 Mechanical Ventilator 35 10/13/18 01:28 110 17 35 10/13/18 01:00 103 18 107/74 100 Mechanical Ventilator 35 10/13/18 00:00 98.9 104 19 105/74 100 Mechanical Ventilator 35 10/13/18 00:00 108 10/13/18 00:00 Mechanical Ventilator Mechanical Ventilator 10/13/18 00:00 35 10/12/18 23:13 105 27 35 10/12/18 23:00 101 23 107/72 99 Mechanical Ventilator 35 10/12/18 22:00 104/68 10/12/18 22:00 105 23 104/68 99 Mechanical Ventilator 35 10/12/18 21:24 107 24 35 10/12/18 21:00 104 23 106/71 99 Mechanical Ventilator 35 10/12/18 20:00 Mechanical Ventilator Mechanical Ventilator 10/12/18 20:00 35 10/12/18 20:00 104 10/12/18 20:00 101 23 106/73 99 Mechanical Ventilator 35 10/12/18 19:35 103 24 35 10/12/18 19:00 99 9 119/62 100 Mechanical Ventilator 35 10/12/18 18:00 105 13 123/61 100 Mechanical Ventilator 35 10/12/18 17:10 99 14 35 10/12/18 17:00 112 16 111/64 99 Mechanical Ventilator 35 10/12/18 16:00 35 10/12/18 16:00 Mechanical Ventilator Mechanical Ventilator 10/12/18 16:00 98.5 103 22 101/72 100 Mechanical Ventilator 35 10/12/18 16:00 103 10/12/18 15:21 103 21 35 10/12/18 15:00 105 23 104/75 100 Mechanical Ventilator 35 Intake and Output 10/12/18 10/13/18 18:59 06:59 Intake Total 1110 ml 990 ml Output Total 1171 ml 990 ml Balance -61 ml 0 ml IV Total 1110 ml 990 ml Output Urine Total 191 ml 240 ml Stool Total 700 ml 600 ml Drainage Total 280 ml 150 ml Laboratory Tests 10/12/18 19:20: Lactic Acid Level 1.80 10/13/18 05:00: White Blood Count 19.5H, Red Blood Count 2.26L, Hemoglobin 7.4L, Hematocrit 20.0L, Mean Corpuscular Volume 89, Mean Corpuscular Hemoglobin 32.9H, Mean Corpuscular Hemoglobin Concent 37.1H, Red Cell Distribution Width 13.6, Platelet Count 114L, Mean Platelet Volume 10.8H, Neutrophils (%) (Auto) , Lymphocytes (%) (Auto) , Monocytes (%) (Auto) , Eosinophils (%) (Auto) , Basophils (%) (Auto) , Differential Total Cells Counted 100, Neutrophils % ( Manual) 83H, Lymphocytes % (Manual) 6L, Monocytes % (Manual) 0L, Eosinophils % ( Manual) 1, Basophils % (Manual) 0, Metamyelocytes % 2H, Myelocytes % 4H, Band Neutrophils 4, Nucleated Red Blood Cells 3, Platelet Estimate DecreasedL, Platelet Morphology Normal, Polychromasia 2+, Anisocytosis 1+, Sodium Level 138 , Potassium Level 2.9L, Chloride Level 103, Carbon Dioxide Level 17L, Anion Gap 18H, Blood Urea Nitrogen 73H, Creatinine 6.0H, Estimat Glomerular Filtration Rate 9.6, Glucose Level 126H, Uric Acid 11.5H, Calcium Level 6.0L, Phosphorus Level 10.3H, Magnesium Level 1.9, Total Bilirubin 2.6H, Direct Bilirubin 1.8H, Aspartate Amino Transf (AST/SGOT) 252H, Alanine Aminotransferase (ALT/SGPT) 293H , Alkaline Phosphatase 171H, Pro-B-Type Natriuretic Peptide 7021H, Total Protein 5.1L, Albumin 0.9L, Globulin 4.2, Albumin/Globulin Ratio 0.2L 10/13/18 08:40: Arterial Blood pH 7.451H, Arterial Blood Partial Pressure CO2 21.7*L, Arterial Blood Partial Pressure O2 90.4, Arterial Blood HCO3 14.8*L, Arterial Blood Oxygen Saturation 95.7, Arterial Blood Base Excess -8.1L, Harvey Test Positive Height (Feet): 5 Height (Inches): 5.00 Weight (Pounds): 159 General Appearance: lethargic EENT: normal ENT inspection Neck: normal alignment Cardiovascular: normal peripheral pulses, normal rate, regular rhythm Respiratory/Chest: chest wall non-tender, decreased breath sounds Abdomen: soft, hypoactive bowel sounds Extremities: normal inspection Edema: no edema noted Arm (L), no edema noted Arm (R), no edema noted Leg (L), no edema noted Leg (R), no edema noted Pedal (L), no edema noted Pedal (R), no edema noted Generalized Neurologic: motor weakness Skin: normal pigmentation, warm/dry Jasmeet Reynoso Oct 13, 2018 14:13
--- NOTE | 2018-10-13 14:45 | Nephrology Progress Note ---
Assessment/Plan Problem List: (1) ATN (acute tubular necrosis) Assessment: Cr rising (2) Septic shock (3) Lactic acid acidosis (4) Metabolic acidosis (5) Hyperkalemia (6) G tube feedings (7) Acute respiratory failure Assessment ? internal bleed no surgical candidate post op 09/22/18: Trach, Splenectomy, Perf.... 10/08- condition worsenned- shock- septic- pressors Sever metabolic acidosis improved Acute Oliguric Renal Failure pressors, lower dose presented with Shock , likely septic Acute renal failure resolved Acute metabolic acidosis resolved Hyperkalemia PEG Recent Pneumonia Plan K IV discussed with RN Poor prognosis, remains full code !! suggest DNR and comfort care hemodynamic support change IV fluid on lower pressors not much can be add from renal stand now trached 09/22 post laparatomy 09/22 on pressors again pulmonary support Fluid challenge as needed antibiotics monitor renal parameters and ABG Subjective ROS Limited/Unobtainable: Yes Objective Objective Last 24 Hour Vital Signs Date Time Temp Pulse Resp B/P (MAP) Pulse Ox O2 Delivery O2 Flow Rate FiO2 10/13/18 12:55 106 21 35 10/13/18 12:00 97.0 69 18 119/49 100 Mechanical Ventilator 35 10/13/18 12:00 Mechanical Ventilator Mechanical Ventilator 10/13/18 12:00 35 10/13/18 11:31 108 10/13/18 10:49 103 18 35 10/13/18 08:30 121 22 35 10/13/18 08:00 Mechanical Ventilator Mechanical Ventilator 10/13/18 08:00 35 10/13/18 08:00 98.4 108 24 117/71 100 Mechanical Ventilator 35 10/13/18 08:00 116 10/13/18 06:42 106 19 35 10/13/18 06:00 98 20 117/78 99 Mechanical Ventilator 35 10/13/18 05:22 102 22 35 10/13/18 05:00 98 20 116/79 99 Mechanical Ventilator 35 10/13/18 04:00 98.8 98 20 117/78 100 Mechanical Ventilator 35 10/13/18 04:00 35 10/13/18 04:00 98 10/13/18 04:00 Mechanical Ventilator Mechanical Ventilator 10/13/18 03:17 111 27 35 10/13/18 03:00 113 25 114/65 99 Mechanical Ventilator 35 10/13/18 02:00 101 18 105/73 100 Mechanical Ventilator 35 10/13/18 01:28 110 17 35 10/13/18 01:00 103 18 107/74 100 Mechanical Ventilator 35 10/13/18 00:00 98.9 104 19 105/74 100 Mechanical Ventilator 35 10/13/18 00:00 108 10/13/18 00:00 Mechanical Ventilator Mechanical Ventilator 10/13/18 00:00 35 10/12/18 23:13 105 27 35 10/12/18 23:00 101 23 107/72 99 Mechanical Ventilator 35 10/12/18 22:00 104/68 10/12/18 22:00 105 23 104/68 99 Mechanical Ventilator 35 10/12/18 21:24 107 24 35 10/12/18 21:00 104 23 106/71 99 Mechanical Ventilator 35 10/12/18 20:00 Mechanical Ventilator Mechanical Ventilator 10/12/18 20:00 35 10/12/18 20:00 104 10/12/18 20:00 101 23 106/73 99 Mechanical Ventilator 35 10/12/18 19:35 103 24 35 10/12/18 19:00 99 9 119/62 100 Mechanical Ventilator 35 10/12/18 18:00 105 13 123/61 100 Mechanical Ventilator 35 10/12/18 17:10 99 14 35 10/12/18 17:00 112 16 111/64 99 Mechanical Ventilator 35 10/12/18 16:00 35 10/12/18 16:00 Mechanical Ventilator Mechanical Ventilator 10/12/18 16:00 98.5 103 22 101/72 100 Mechanical Ventilator 35 10/12/18 16:00 103 10/12/18 15:21 103 21 35 10/12/18 15:00 105 23 104/75 100 Mechanical Ventilator 35 Intake and Output 10/12/18 10/13/18 18:59 06:59 Intake Total 1110 ml 990 ml Output Total 1171 ml 990 ml Balance -61 ml 0 ml IV Total 1110 ml 990 ml Output Urine Total 191 ml 240 ml Stool Total 700 ml 600 ml Drainage Total 280 ml 150 ml Laboratory Tests 10/12/18 19:20: Lactic Acid Level 1.80 10/13/18 05:00: White Blood Count 19.5H, Red Blood Count 2.26L, Hemoglobin 7.4L, Hematocrit 20.0L, Mean Corpuscular Volume 89, Mean Corpuscular Hemoglobin 32.9H, Mean Corpuscular Hemoglobin Concent 37.1H, Red Cell Distribution Width 13.6, Platelet Count 114L, Mean Platelet Volume 10.8H, Neutrophils (%) (Auto) , Lymphocytes (%) (Auto) , Monocytes (%) (Auto) , Eosinophils (%) (Auto) , Basophils (%) (Auto) , Differential Total Cells Counted 100, Neutrophils % ( Manual) 83H, Lymphocytes % (Manual) 6L, Monocytes % (Manual) 0L, Eosinophils % ( Manual) 1, Basophils % (Manual) 0, Metamyelocytes % 2H, Myelocytes % 4H, Band Neutrophils 4, Nucleated Red Blood Cells 3, Platelet Estimate DecreasedL, Platelet Morphology Normal, Polychromasia 2+, Anisocytosis 1+, Sodium Level 138 , Potassium Level 2.9L, Chloride Level 103, Carbon Dioxide Level 17L, Anion Gap 18H, Blood Urea Nitrogen 73H, Creatinine 6.0H, Estimat Glomerular Filtration Rate 9.6, Glucose Level 126H, Uric Acid 11.5H, Calcium Level 6.0L, Phosphorus Level 10.3H, Magnesium Level 1.9, Total Bilirubin 2.6H, Direct Bilirubin 1.8H, Aspartate Amino Transf (AST/SGOT) 252H, Alanine Aminotransferase (ALT/SGPT) 293H , Alkaline Phosphatase 171H, Pro-B-Type Natriuretic Peptide 7021H, Total Protein 5.1L, Albumin 0.9L, Globulin 4.2, Albumin/Globulin Ratio 0.2L 10/13/18 08:40: Arterial Blood pH 7.451H, Arterial Blood Partial Pressure CO2 21.7*L, Arterial Blood Partial Pressure O2 90.4, Arterial Blood HCO3 14.8*L, Arterial Blood Oxygen Saturation 95.7, Arterial Blood Base Excess -8.1L, Harvey Test Positive Height (Feet): 5 Height (Inches): 5.00 Weight (Pounds): 159 EENT: other - trach Cardiovascular: tachycardia Respiratory/Chest: decreased breath sounds Abdomen: distended Objective no other changes Josesito Smalls MD Oct 13, 2018 14:45
[2018-10-13] MEDS ORDERED: D5NS 1000ml IV ONE (15:59)
[2018-10-13] MEDS ORDERED: Tubing IV Secondary IV ONE (15:59)
[2018-10-13] MEDS ORDERED: NS 275ml ONE (15:59)
[2018-10-13] MEDS ORDERED: Micafungin 100 MG in NS 110 ML IVPB SCH (18:00)
--- NOTE | 2018-10-13 18:11 | Cardiac Electrophysiology PN ---
Assessment/Plan Assessment/Plan 1. S/P Septic and hemorrhagic shock On Abx and off Levophed WBC down from 50 to 19 K 2. Sinus tachycardia due to sepsis, anemia and dehydration. No fibrillation. EF 75%. ECG showed sinus tach 150 3. Troponin elevation due to renal failure. EF 75%. 4. VDRF. S/P Tracheostomy 09/22/18 5. Rhabdomyolysis with CPK in thousands contributing to renal failure. 6. Acute renal failure and severe hyperkalemia. FU by Dr. Smalls 7. Dysphagia, Hx of PEG placement but was dislodged. 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 Left one Bloody. Right one serous FU Dr. Fry 8. GI bleed. S/P EGD by Dr. Horton. S/p PRBCs DW RN Subjective Subjective On the Vent via tracheostomy on ROBBIE Objective Last 24 Hour Vital Signs Date Time Temp Pulse Resp B/P (MAP) Pulse Ox O2 Delivery O2 Flow Rate FiO2 10/13/18 16:33 116 33 35 10/13/18 15:41 108 10/13/18 14:58 114 30 35 10/13/18 12:55 106 21 35 10/13/18 12:00 97.0 69 18 119/49 100 Mechanical Ventilator 35 10/13/18 12:00 Mechanical Ventilator Mechanical Ventilator 10/13/18 12:00 35 10/13/18 11:31 108 10/13/18 10:49 103 18 35 10/13/18 08:30 121 22 35 10/13/18 08:00 Mechanical Ventilator Mechanical Ventilator 10/13/18 08:00 35 10/13/18 08:00 98.4 108 24 117/71 100 Mechanical Ventilator 35 10/13/18 08:00 116 10/13/18 06:42 106 19 35 10/13/18 06:00 98 20 117/78 99 Mechanical Ventilator 35 10/13/18 05:22 102 22 35 10/13/18 05:00 98 20 116/79 99 Mechanical Ventilator 35 10/13/18 04:00 98.8 98 20 117/78 100 Mechanical Ventilator 35 10/13/18 04:00 35 10/13/18 04:00 98 10/13/18 04:00 Mechanical Ventilator Mechanical Ventilator 10/13/18 03:17 111 27 35 10/13/18 03:00 113 25 114/65 99 Mechanical Ventilator 35 10/13/18 02:00 101 18 105/73 100 Mechanical Ventilator 35 10/13/18 01:28 110 17 35 10/13/18 01:00 103 18 107/74 100 Mechanical Ventilator 35 10/13/18 00:00 98.9 104 19 105/74 100 Mechanical Ventilator 35 10/13/18 00:00 108 10/13/18 00:00 Mechanical Ventilator Mechanical Ventilator 10/13/18 00:00 35 10/12/18 23:13 105 27 35 10/12/18 23:00 101 23 107/72 99 Mechanical Ventilator 35 10/12/18 22:00 104/68 10/12/18 22:00 105 23 104/68 99 Mechanical Ventilator 35 10/12/18 21:24 107 24 35 10/12/18 21:00 104 23 106/71 99 Mechanical Ventilator 35 10/12/18 20:00 Mechanical Ventilator Mechanical Ventilator 10/12/18 20:00 35 10/12/18 20:00 104 10/12/18 20:00 101 23 106/73 99 Mechanical Ventilator 35 10/12/18 19:35 103 24 35 10/12/18 19:00 99 9 119/62 100 Mechanical Ventilator 35 Intake and Output 10/12/18 10/13/18 18:59 06:59 Intake Total 1110 ml 990 ml Output Total 1171 ml 990 ml Balance -61 ml 0 ml IV Total 1110 ml 990 ml Output Urine Total 191 ml 240 ml Stool Total 700 ml 600 ml Drainage Total 280 ml 150 ml Laboratory Tests Test 10/12/18 19:20 10/13/18 05:00 10/13/18 08:40 Lactic Acid Level 1.80 mmol/L (0.4-2.0) White Blood Count 19.5 K/UL (4.8-10.8) H Red Blood Count 2.26 M/UL (4.70-6.10) L Hemoglobin 7.4 G/DL (14.2-18.0) L Hematocrit 20.0 % (42.0-52.0) L Mean Corpuscular Volume 89 FL (80-99) Mean Corpuscular Hemoglobin 32.9 PG (27.0-31.0) H Mean Corpuscular Hemoglobin Concent 37.1 G/DL (32.0-36.0) H Red Cell Distribution Width 13.6 % (11.6-14.8) Platelet Count 114 K/UL (150-450) L Mean Platelet Volume 10.8 FL (6.5-10.1) H Neutrophils (%) (Auto) % (45.0-75.0) Lymphocytes (%) (Auto) % (20.0-45.0) Monocytes (%) (Auto) % (1.0-10.0) Eosinophils (%) (Auto) % (0.0-3.0) Basophils (%) (Auto) % (0.0-2.0) Differential Total Cells Counted 100 Neutrophils % (Manual) 83 % (45-75) H Lymphocytes % (Manual) 6 % (20-45) L Monocytes % (Manual) 0 % (1-10) L Eosinophils % (Manual) 1 % (0-3) Basophils % (Manual) 0 % (0-2) Metamyelocytes % 2 % (0-0) H Myelocytes % 4 % (0-0) H Band Neutrophils 4 % (0-8) Nucleated Red Blood Cells 3 /100 WBC Platelet Estimate Decreased L Platelet Morphology Normal Polychromasia 2+ Anisocytosis 1+ Sodium Level 138 MMOL/L (136-145) Potassium Level 2.9 MMOL/L (3.5-5.1) L Chloride Level 103 MMOL/L (98-107) Carbon Dioxide Level 17 MMOL/L (21-32) L Anion Gap 18 mmol/L (5-15) H Blood Urea Nitrogen 73 mg/dL (7-18) H Creatinine 6.0 MG/DL (0.55-1.30) H Estimat Glomerular Filtration Rate 9.6 mL/min (>60) Glucose Level 126 MG/DL (74-106) H Uric Acid 11.5 MG/DL (2.6-7.2) H Calcium Level 6.0 MG/DL (8.5-10.1) L Phosphorus Level 10.3 MG/DL (2.5-4.9) H Magnesium Level 1.9 MG/DL (1.8-2.4) Total Bilirubin 2.6 MG/DL (0.2-1.0) H Direct Bilirubin 1.8 MG/DL (0.0-0.3) H Aspartate Amino Transf (AST/SGOT) 252 U/L (15-37) H Alanine Aminotransferase (ALT/SGPT) 293 U/L (12-78) H Alkaline Phosphatase 171 U/L (46-116) H Pro-B-Type Natriuretic Peptide 7021 pg/mL (0-125) H Total Protein 5.1 G/DL (6.4-8.2) L Albumin 0.9 G/DL (3.4-5.0) L Globulin 4.2 g/dL Albumin/Globulin Ratio 0.2 (1.0-2.7) L Arterial Blood pH 7.451 (7.350-7.450) Arterial Blood Partial Pressure CO2 21.7 mmHg (35.0-45.0) *L Arterial Blood Partial Pressure O2 90.4 mmHg (75.0-100.0) Arterial Blood HCO3 14.8 mmol/L (22.0-26.0) *L Arterial Blood Oxygen Saturation 95.7 % (95-100) Arterial Blood Base Excess -8.1 (-2-2) L Harvey Test Positive Objective HEENT: S/P tracheostomy. LUNGS: Coarse rhonchi. CARDIOVASCULAR: Regular S1 and S2. ABDOMEN: Incision slightly oozing and has 2 drains EXTREMITIES: No pitting edema. Jasbir Madsen MD Oct 13, 2018 18:11
[2018-10-13] MEDS ORDERED: Dyna-Hex 2% Top Sol 2oz TOPIC SCH (20:00)
--- NOTE | 2018-10-13 20:00 | Progress Note ---
DATE: 10/13/2018 SUBJECTIVE: The patient is a 62-year-old male patient with septic shock. He has some confusion, some disorganized thought process and mood lability worsened by stress of his medical illness. MENTAL STATUS EXAMINATION: The patient is a 62-year-old male. Appearance is disheveled. Attitude, irritable and agitated. Affect, guarded and restricted. Insight and judgment is poor. DIAGNOSIS: Paranoid schizophrenia with acute exacerbation. PLAN: Continue to treat this patient with psychotropic medication regimen consisting of Risperdal 0.25 mg q p.m. to help reduce agitation and stabilize his mood. Provided him with 20 minutes of reality-based supportive psychotherapy. Chart reviewed and discussed with staff. Seen and assessed at bedside. A 20 minutes of behavioral management provided. Virgie Mcdermott M.D. DR: Gerri JOB#: [id number] CC:
[2018-10-14] VITALS: BP 109/66
[2018-10-14] MEDS: Meropenem 1 GM in NS 55 ML IVPB SCH ×2 (03:38→16:08)
[2018-10-14 04:00] VITALS: BP 114/68
[2018-10-14 05:51] LABS: HEMATOCRIT 18.7 % (42.0-52.0); MEAN CORPUSCULAR VOLUME 91 FL (80-99); PLATELET COUNT 137 K/UL (150-450); RED BLOOD COUNT 2.06 M/UL (4.70-6.10); WHITE BLOOD COUNT 20.4 K/UL (4.8-10.8)
[2018-10-14 05:56] LABS: ANION GAP 18 mmol/L (5-15); BLOOD UREA NITROGEN 76 mg/dL (7-18); CALCIUM 6.2 MG/DL (8.5-10.1); CARBON DIOXIDE 16 MMOL/L (21-32); CHLORIDE 107 MMOL/L (98-107); CREATININE 6.3 MG/DL (0.55-1.30); SODIUM 141 MMOL/L (136-145)
[2018-10-14 08:00] VITALS: BP 112/68
--- NOTE | 2018-10-14 08:26 | General Progress Note ---
Progress Note Progress Note BIOETHICS NOTE: We were contacted again by Social Work regarding Mr. Walter. Interim developments since last note were reviewed. Unfortunately Mr. Walter has not responded to appropriate care, and at this point further aggressive care appears to us to be futile. Given the clinical situation, DNR/no ICU transfer/symptomatic care seems to be the best course moving forward. Please let us know if we can be of any further assistance in this case. Marvin Brown MD for Bioethics Committee Marvin Brown MD Oct 14, 2018 08:26
[2018-10-14] MEDS ORDERED: Phytonadione 10 mg/mL 1ml amp SUBQ SCH (09:00)
[2018-10-14] MEDS: Pantoprazole Inj IVP SCH (09:29)
[2018-10-14] MEDS: D5NS 1,000 ML IV SCH (09:29)
--- NOTE | 2018-10-14 10:39 | Diagnostic Imaging Report ---
Indication: Post nasogastric tube placement Technique: Supine view of the up or abdomen Comparison: 09/13/2018 Findings: Interim placement of a nasogastric tube, tip which is probably coiled in the gastric antrum, less likely projecting into the duodenum. Surgical drain in the left upper abdomen is demonstrated. Previously demonstrated central venous catheter is no longer evident. Bowel gas pattern is unremarkable Impression: Satisfactory position of nasogastric tube This agrees with the preliminary interpretation provided overnight by [facility] teleradiology service.
--- NOTE | 2018-10-14 11:00 | Pulmonolgy Critical Care Note ---
Critical Care - Asmt/Plan Problems: (1) Septic shock (2) Acute respiratory failure (3) ATN (acute tubular necrosis) (4) Metabolic acidosis (5) Gastric rupture Respiratory: monitor respiratory rate, adjust FIO2, CXR Cardiac: continue to monitor HR/BP Renal: F/U I&O Infectious Disease: check cultures, continue antibiotics Gastrointestinal: continue feedings/current rate Endocrine: monitor blood sugar, continue sliding scale insulin Hematologic: monitor H/H, transfuse if hgb<8.5 Neurologic: PRN Ativan, keep patient comfortable Affect: PRN ativan Prophylaxis: Protonix Disposition: keep in ICU Notes 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: furniture installer, renal Discussed with: nurses, consultants, shoe parts casershared services and outsourcing manager - Objective Last 24 Hour Vital Signs Date Time Temp Pulse Resp B/P (MAP) Pulse Ox O2 Delivery O2 Flow Rate FiO2 10/14/18 09:50 110 25 35 10/14/18 08:00 35 10/14/18 08:00 101 10/14/18 08:00 98.8 101 23 112/68 98 Mechanical Ventilator 35 10/14/18 08:00 Mechanical Ventilator Mechanical Ventilator 10/14/18 07:14 111 23 35 10/14/18 05:30 109 22 35 10/14/18 04:00 Mechanical Ventilator Mechanical Ventilator 10/14/18 04:00 35 10/14/18 04:00 109 10/14/18 04:00 99.9 106 23 114/68 98 Mechanical Ventilator 35 10/14/18 03:30 102 21 35 10/14/18 01:30 109 24 35 10/14/18 00:00 Mechanical Ventilator Mechanical Ventilator 10/14/18 00:00 108 10/14/18 00:00 97.9 105 20 109/66 100 Mechanical Ventilator 35 10/14/18 00:00 35 10/13/18 23:19 106 23 35 10/13/18 21:31 110 25 Mechanical Ventilator 40 10/13/18 21:23 110 25 35 10/13/18 20:00 35 10/13/18 20:00 99.5 109 23 100/64 99 Mechanical Ventilator 35 10/13/18 20:00 Mechanical Ventilator Mechanical Ventilator 10/13/18 19:55 107 10/13/18 19:36 115 29 35 10/13/18 16:33 116 33 35 10/13/18 16:00 98.6 105 28 120/80 98 Mechanical Ventilator 35 10/13/18 16:00 Mechanical Ventilator Mechanical Ventilator 10/13/18 16:00 35 10/13/18 15:41 108 10/13/18 14:58 114 30 35 10/13/18 12:55 106 21 35 10/13/18 12:00 97.0 69 18 119/49 100 Mechanical Ventilator 35 10/13/18 12:00 Mechanical Ventilator Mechanical Ventilator 10/13/18 12:00 35 10/13/18 11:31 108 Status: somnolent Condition: critical HEENT: atraumatic Lungs: rales, rhonchi Heart: HR/BP stable Abdomen: soft, non-tender Extremities: no C/C/E Decubiti: location Accucheck: 65 Critical Care - Subjective ROS Limited/Unobtainable: Yes Condition: critical EKG Rhythm: Sinus Rhythm FI02: 35 Vent Support Breath Rate: 14 Vent Support Mode: AC Vent Tidal Volume: 500 Sputum Amount: Small PEEP: 0.0 PIP: 31 Tube Feeding Amount: 0 I&O: Intake and Output 10/13/18 10/14/18 19:00 07:00 Intake Total 1465 ml 755 ml Output Total 610 ml 1200 ml Balance 855 ml -445 ml IV Total 1465 ml 755 ml Output Urine Total 200 ml 400 ml Stool Total 350 ml 700 ml Drainage Total 60 ml 100 ml # Bowel Movements 2 1 CXR: worsening pulmonary edema Labs: Laboratory Tests Test 10/14/18 04:00 White Blood Count 20.4 K/UL (4.8-10.8) H Red Blood Count 2.06 M/UL (4.70-6.10) L Hemoglobin 7.0 G/DL (14.2-18.0) L Hematocrit 18.7 % (42.0-52.0) L Mean Corpuscular Volume 91 FL (80-99) Mean Corpuscular Hemoglobin 34.0 PG (27.0-31.0) H Mean Corpuscular Hemoglobin Concent 37.5 G/DL (32.0-36.0) H Red Cell Distribution Width 14.0 % (11.6-14.8) Platelet Count 137 K/UL (150-450) L Mean Platelet Volume 9.5 FL (6.5-10.1) Neutrophils (%) (Auto) % (45.0-75.0) Lymphocytes (%) (Auto) % (20.0-45.0) Monocytes (%) (Auto) % (1.0-10.0) Eosinophils (%) (Auto) % (0.0-3.0) Basophils (%) (Auto) % (0.0-2.0) Differential Total Cells Counted 100 Neutrophils % (Manual) 89 % (45-75) H Lymphocytes % (Manual) 5 % (20-45) L Monocytes % (Manual) 3 % (1-10) Eosinophils % (Manual) 0 % (0-3) Basophils % (Manual) 0 % (0-2) Band Neutrophils 3 % (0-8) Platelet Estimate Decreased L Platelet Morphology Normal Polychromasia 1+ Anisocytosis 1+ Sodium Level 141 MMOL/L (136-145) Potassium Level 3.0 MMOL/L (3.5-5.1) L Chloride Level 107 MMOL/L (98-107) Carbon Dioxide Level 16 MMOL/L (21-32) L Anion Gap 18 mmol/L (5-15) H Blood Urea Nitrogen 76 mg/dL (7-18) H Creatinine 6.3 MG/DL (0.55-1.30) H Estimat Glomerular Filtration Rate 9.1 mL/min (>60) Glucose Level 104 MG/DL (74-106) Calcium Level 6.2 MG/DL (8.5-10.1) L Po Li MD Oct 14, 2018 11:00
--- NOTE | 2018-10-14 11:07 | GI Progress Note ---
Assessment/Plan Problems: (1) G tube feedings ICD Codes: Z93.1 - Gastrostomy status SNOMED: 568002219, 429608981 (2) Protein-calorie malnutrition, severe ICD Codes: E43 - Unspecified severe protein-calorie malnutrition SNOMED: 999250905 (3) Anemia ICD Codes: D64.9 - Anemia, unspecified SNOMED: 734467121 (4) GI bleed ICD Codes: K92.2 - Gastrointestinal hemorrhage, unspecified SNOMED: 08440402 Status: unchanged Status Narrative Discussed with Dr. Horton Assessment/Plan s/p repair of gastric perforation septic, now in ICU RECOMMENDATIONS: fu surgical recommendations, high risk for PEG hold TPN, will reinsert NGT today >> will restart feedings G-tube feedings per RD prn transfusion ppi abx fu labs The patient was seen and examined at bedside and all new and available data was reviewed in the patients chart. I agree with the above findings, impression and plan. (Patient seen earlier today. Signature stamp does not reflect patient encounter time.). - Arthur Horton MD Subjective Subjective limited Objective Last 24 Hour Vital Signs Date Time Temp Pulse Resp B/P (MAP) Pulse Ox O2 Delivery O2 Flow Rate FiO2 10/14/18 09:50 110 25 35 10/14/18 08:00 35 10/14/18 08:00 101 10/14/18 08:00 98.8 101 23 112/68 98 Mechanical Ventilator 35 10/14/18 08:00 Mechanical Ventilator Mechanical Ventilator 10/14/18 07:14 111 23 35 10/14/18 05:30 109 22 35 10/14/18 04:00 Mechanical Ventilator Mechanical Ventilator 10/14/18 04:00 35 10/14/18 04:00 109 10/14/18 04:00 99.9 106 23 114/68 98 Mechanical Ventilator 35 10/14/18 03:30 102 21 35 10/14/18 01:30 109 24 35 10/14/18 00:00 Mechanical Ventilator Mechanical Ventilator 10/14/18 00:00 108 10/14/18 00:00 97.9 105 20 109/66 100 Mechanical Ventilator 35 10/14/18 00:00 35 10/13/18 23:19 106 23 35 10/13/18 21:31 110 25 Mechanical Ventilator 40 10/13/18 21:23 110 25 35 10/13/18 20:00 35 10/13/18 20:00 99.5 109 23 100/64 99 Mechanical Ventilator 35 10/13/18 20:00 Mechanical Ventilator Mechanical Ventilator 10/13/18 19:55 107 10/13/18 19:36 115 29 35 10/13/18 16:33 116 33 35 10/13/18 16:00 98.6 105 28 120/80 98 Mechanical Ventilator 35 10/13/18 16:00 Mechanical Ventilator Mechanical Ventilator 10/13/18 16:00 35 10/13/18 15:41 108 10/13/18 14:58 114 30 35 10/13/18 12:55 106 21 35 10/13/18 12:00 97.0 69 18 119/49 100 Mechanical Ventilator 35 10/13/18 12:00 Mechanical Ventilator Mechanical Ventilator 10/13/18 12:00 35 10/13/18 11:31 108 Intake and Output 10/13/18 10/14/18 19:00 07:00 Intake Total 1465 ml 755 ml Output Total 610 ml 1200 ml Balance 855 ml -445 ml IV Total 1465 ml 755 ml Output Urine Total 200 ml 400 ml Stool Total 350 ml 700 ml Drainage Total 60 ml 100 ml # Bowel Movements 2 1 Laboratory Tests Test 10/14/18 04:00 White Blood Count 20.4 K/UL (4.8-10.8) H Red Blood Count 2.06 M/UL (4.70-6.10) L Hemoglobin 7.0 G/DL (14.2-18.0) L Hematocrit 18.7 % (42.0-52.0) L Mean Corpuscular Volume 91 FL (80-99) Mean Corpuscular Hemoglobin 34.0 PG (27.0-31.0) H Mean Corpuscular Hemoglobin Concent 37.5 G/DL (32.0-36.0) H Red Cell Distribution Width 14.0 % (11.6-14.8) Platelet Count 137 K/UL (150-450) L Mean Platelet Volume 9.5 FL (6.5-10.1) Neutrophils (%) (Auto) % (45.0-75.0) Lymphocytes (%) (Auto) % (20.0-45.0) Monocytes (%) (Auto) % (1.0-10.0) Eosinophils (%) (Auto) % (0.0-3.0) Basophils (%) (Auto) % (0.0-2.0) Differential Total Cells Counted 100 Neutrophils % (Manual) 89 % (45-75) H Lymphocytes % (Manual) 5 % (20-45) L Monocytes % (Manual) 3 % (1-10) Eosinophils % (Manual) 0 % (0-3) Basophils % (Manual) 0 % (0-2) Band Neutrophils 3 % (0-8) Platelet Estimate Decreased L Platelet Morphology Normal Polychromasia 1+ Anisocytosis 1+ Sodium Level 141 MMOL/L (136-145) Potassium Level 3.0 MMOL/L (3.5-5.1) L Chloride Level 107 MMOL/L (98-107) Carbon Dioxide Level 16 MMOL/L (21-32) L Anion Gap 18 mmol/L (5-15) H Blood Urea Nitrogen 76 mg/dL (7-18) H Creatinine 6.3 MG/DL (0.55-1.30) H Estimat Glomerular Filtration Rate 9.1 mL/min (>60) Glucose Level 104 MG/DL (74-106) Calcium Level 6.2 MG/DL (8.5-10.1) L Height (Feet): 5 Height (Inches): 5.00 Weight (Pounds): 179 General Appearance: no apparent distress Cardiovascular: normal rate Respiratory/Chest: other - Mechanical ventilator Abdominal Exam: other - NGT placement Becki Holt NP Oct 14, 2018 11:07
[2018-10-14 12:00] VITALS: BP 116/68
--- NOTE | 2018-10-14 14:11 | Infectious Diseases Prog Note ---
Assessment/Plan Assessment/Plan 62 yo male with PMHx of Quadriplegia with G-tube, HTN, DM and Schizophenia who [facility]. Fever, SP Shock- combination of septic and hypovolemnic (bleeding from ELISABET drain)- off pressors now -10/08 CXR: Slightly improved but persistent interstitial congestion, bilateral interstitial and airspace infiltrates versus edema, over 2 days Bcx NTD u/a wbc 5-10 Displaced GT with perforation c/w peritonitis and hematoma/abscess formation -10/02 CT abd/p: Interval exploratory laparotomy, status post splenectomy, status post removal of gastrostomy tube with 2 abdominal drains noted. Abnormal appearance of the stomach with marked wall thickening and pneumatosis. Abnormal appearance of small bowel and large bowel showing wall thickening and enhancement may be related to enteritis and/or colitis. Trace ascites -09/22 SP Exploratory laparotomy. Repair of gastric perforation. Evacuation of abdominal omental / lesser sac hematoma. Evacuation of perisplenic hematoma/ abscess. Omentectomy. Splenectomy. Abdominal washout. Tracheostomy. -09/21 CT abd/p: The gastrostomy tube appears to be partially intraluminal and partially communicate with a large intramural collection involving mostly the inferior posterior wall of the stomach. There is some anterior wall pneumatosis. Contrast within the collection most likely represents instilled enteric contrast, but could also represent extravasated vascular contrast. There is evidence of rupture of this collection into the peritoneal space, with extravasated contrast in the left upper quadrant. There is anterior gastric wall intramural pneumatosis as well as a small amount of free extraluminal gas. Moderate ascites. Enhancement of much of the peritoneum raises concern for peritonitis. There may also be loculated intraperitoneal collections which could represent abscesses, predominantly adjacent to the tip of the right hepatic lobe, subcapsular in the spleen, and within the left upper quadrant. Thick-walled sigmoid colon, transverse colon and equivocally the proximal jejunum. Likely reactive related to the above, but could also indicate enteritis /colitis changes Leukocytosis, improving =3/ cdiff neg -09/29 L ELISABET drain (+purulebnt fluid) cx : C. tropicalis -2/18 u/a neg, ucx NTD Bcx NTD CXR: Over one day, interim development of bilateral supraclavicular subcutaneous emphysema and pneumomediastinum, etiology not demonstrated. Persistent low lung volumes with basilar atelectatic changes and left-sided pleural effusion -09/20 ucx NTD; u/a neg -09/19 CXR: Bilateral pleural effusions and bibasilar atelectasis/airspace disease are stable. Transaminitis: Improving YI, worsening Diarrhea- -09/27 Cdiff neg Sepsis - Probably PNA , s/p Rx 09/22 CXR: Bilateral pleural effusions, basilar atelectatic changes, and interstitial congestive changes are stable CXR 09/07/18 - possible left sided consolidation Inf neg 09/07/18 BCx / sets diphteroids, 08/12 setse S. epi (contaminants); 09/11 Bcx NTD 09/07/18 SCx - NF 09/07/18 UCx - Neg 09/09 Cdiff neg GIB YI HTN DM Schizophenia Quadriplegia. G- tube dependent Plan -Cont Meropenem #7 and IV Daptomycin #7 given decompensation -Continue IV Micafungin #22 -10/08 SP Zosyn #17 -f/u Repeat cultures -09/28 SP Flagyl #3 - 09/19/18 SP Zosyn #10 - 09/17/18 SP Vancmocyin #10 - 09/09/18 Ertapenem #3 - Monitor CBC and temps -Sx f/u -wound care - poor px Subjective Allergies: Coded Allergies: No Known Allergies (Unverified , 08/14/18) Subjective afebrile wbc improved BCx neg Objective Vital Signs Last 24 Hour Vital Signs Date Time Temp Pulse Resp B/P (MAP) Pulse Ox O2 Delivery O2 Flow Rate FiO2 10/14/18 13:21 119 31 35 10/14/18 11:52 112 23 35 10/14/18 09:50 110 25 35 10/14/18 08:00 35 10/14/18 08:00 101 10/14/18 08:00 98.8 101 23 112/68 98 Mechanical Ventilator 35 10/14/18 08:00 Mechanical Ventilator Mechanical Ventilator 10/14/18 07:14 111 23 35 10/14/18 05:30 109 22 35 10/14/18 04:00 Mechanical Ventilator Mechanical Ventilator 10/14/18 04:00 35 10/14/18 04:00 109 10/14/18 04:00 99.9 106 23 114/68 98 Mechanical Ventilator 35 10/14/18 03:30 102 21 35 10/14/18 01:30 109 24 35 10/14/18 00:00 Mechanical Ventilator Mechanical Ventilator 10/14/18 00:00 108 10/14/18 00:00 97.9 105 20 109/66 100 Mechanical Ventilator 35 10/14/18 00:00 35 10/13/18 23:19 106 23 35 10/13/18 21:31 110 25 Mechanical Ventilator 40 10/13/18 21:23 110 25 35 10/13/18 20:00 35 10/13/18 20:00 99.5 109 23 100/64 99 Mechanical Ventilator 35 10/13/18 20:00 Mechanical Ventilator Mechanical Ventilator 10/13/18 19:55 107 10/13/18 19:36 115 29 35 10/13/18 16:33 116 33 35 10/13/18 16:00 98.6 105 28 120/80 98 Mechanical Ventilator 35 10/13/18 16:00 Mechanical Ventilator Mechanical Ventilator 10/13/18 16:00 35 10/13/18 15:41 108 10/13/18 14:58 114 30 35 Height (Feet): 5 Height (Inches): 5.00 Weight (Pounds): 179 Objective Gen: NAD, On vent satting well 35% O2 HEENT: NCAT, MMM, EOMI LUNGS: CTAB, No W/C, CARDS: RRR, S1, S2, No M/R/G, ABD: Soft, NT, distended, + BS,G tube (No E/P) NEURO: Intubated, not following Laboratory Tests Test 10/14/18 04:00 White Blood Count 20.4 K/UL (4.8-10.8) H Red Blood Count 2.06 M/UL (4.70-6.10) L Hemoglobin 7.0 G/DL (14.2-18.0) L Hematocrit 18.7 % (42.0-52.0) L Mean Corpuscular Volume 91 FL (80-99) Mean Corpuscular Hemoglobin 34.0 PG (27.0-31.0) H Mean Corpuscular Hemoglobin Concent 37.5 G/DL (32.0-36.0) H Red Cell Distribution Width 14.0 % (11.6-14.8) Platelet Count 137 K/UL (150-450) L Mean Platelet Volume 9.5 FL (6.5-10.1) Neutrophils (%) (Auto) % (45.0-75.0) Lymphocytes (%) (Auto) % (20.0-45.0) Monocytes (%) (Auto) % (1.0-10.0) Eosinophils (%) (Auto) % (0.0-3.0) Basophils (%) (Auto) % (0.0-2.0) Differential Total Cells Counted 100 Neutrophils % (Manual) 89 % (45-75) H Lymphocytes % (Manual) 5 % (20-45) L Monocytes % (Manual) 3 % (1-10) Eosinophils % (Manual) 0 % (0-3) Basophils % (Manual) 0 % (0-2) Band Neutrophils 3 % (0-8) Platelet Estimate Decreased L Platelet Morphology Normal Polychromasia 1+ Anisocytosis 1+ Sodium Level 141 MMOL/L (136-145) Potassium Level 3.0 MMOL/L (3.5-5.1) L Chloride Level 107 MMOL/L (98-107) Carbon Dioxide Level 16 MMOL/L (21-32) L Anion Gap 18 mmol/L (5-15) H Blood Urea Nitrogen 76 mg/dL (7-18) H Creatinine 6.3 MG/DL (0.55-1.30) H Estimat Glomerular Filtration Rate 9.1 mL/min (>60) Glucose Level 104 MG/DL (74-106) Calcium Level 6.2 MG/DL (8.5-10.1) L Current Medications Medications (Trade) Dose Ordered Sig/Julito Route PRN Reason Start Time Stop Time Status Last Admin Dose Admin Acetaminophen (Tylenol) 650 mg Q4H PRN NG Mild Pain/Temp > 100.5 10/13/18 07:01 11/06/18 07:00 Acetaminophen (Tylenol) 650 mg Q4H PRN RECTAL Mild Pain (Pain Scale 1-3) 10/13/18 07:02 11/06/18 07:01 Chlorhexidine Gluconate (Camila-Hex 2%) 1 applic DAILY@2000 TOPIC 10/13/18 20:00 10/15/18 19:59 10/13/18 20:43 Daptomycin 450 mg/ Sodium Chloride 55 ml @ 100 mls/hr Q48H IV 10/14/18 18:00 10/19/18 17:59 Dextrose (Dextrose 50%) 50 ml PRN PRN IV Hypoglycemia 10/13/18 19:30 11/07/18 19:29 Dextrose/Sodium Chloride 1,000 ml @ 75 mls/hr [id number] IV 10/13/18 06:58 11/12/18 06:57 10/14/18 09:29 Loperamide HCl (Imodium) 4 mg TIDPRN PRN ORAL Diarrhea 10/13/18 07:02 11/06/18 07:01 Meropenem 1 gm/ Sodium Chloride 55 ml @ 110 mls/hr Q12H IVPB 10/13/18 16:00 10/19/18 15:59 10/14/18 03:38 Micafungin Sodium 100 mg/Sodium Chloride 110 ml @ 110 mls/hr Q24H IVPB 10/13/18 18:00 10/19/18 23:00 10/13/18 17:46 Pantoprazole (Protonix) 40 mg Q12HR IVP 10/13/18 09:00 11/06/18 21:59 10/14/18 09:29 Sodium Chloride 500 ml @ 999 mls/hr Q31M PRN IV SBP<90mmHg 10/13/18 07:00 11/12/18 06:59 Kell Larkin M.D. Oct 14, 2018 14:10
--- NOTE | 2018-10-14 14:27 | Nephrology Progress Note ---
Assessment/Plan Problem List: (1) ATN (acute tubular necrosis) Assessment: Cr rising (2) Septic shock (3) Lactic acid acidosis (4) Metabolic acidosis (5) Hyperkalemia (6) G tube feedings (7) Acute respiratory failure Assessment ? internal bleed no surgical candidate post op 09/22/18: Trach, Splenectomy, Perf.... 10/08- condition worsenned- shock- septic- pressors Sever metabolic acidosis improved Acute Oliguric Renal Failure pressors, lower dose presented with Shock , likely septic Acute renal failure resolved Acute metabolic acidosis resolved Hyperkalemia PEG Recent Pneumonia Plan discussed with RN Poor prognosis, now DNR and comfort care not much can be add from renal stand trached 09/22 post laparatomy 09/22 pulmonary support Fluid challenge as needed antibiotics Subjective ROS Limited/Unobtainable: Yes Objective Objective Last 24 Hour Vital Signs Date Time Temp Pulse Resp B/P (MAP) Pulse Ox O2 Delivery O2 Flow Rate FiO2 10/14/18 13:21 119 31 35 10/14/18 11:52 112 23 35 10/14/18 09:50 110 25 35 10/14/18 08:00 35 10/14/18 08:00 101 10/14/18 08:00 98.8 101 23 112/68 98 Mechanical Ventilator 35 10/14/18 08:00 Mechanical Ventilator Mechanical Ventilator 10/14/18 07:14 111 23 35 10/14/18 05:30 109 22 35 10/14/18 04:00 Mechanical Ventilator Mechanical Ventilator 10/14/18 04:00 35 10/14/18 04:00 109 10/14/18 04:00 99.9 106 23 114/68 98 Mechanical Ventilator 35 10/14/18 03:30 102 21 35 10/14/18 01:30 109 24 35 10/14/18 00:00 Mechanical Ventilator Mechanical Ventilator 10/14/18 00:00 108 10/14/18 00:00 97.9 105 20 109/66 100 Mechanical Ventilator 35 10/14/18 00:00 35 10/13/18 23:19 106 23 35 10/13/18 21:31 110 25 Mechanical Ventilator 40 10/13/18 21:23 110 25 35 10/13/18 20:00 35 10/13/18 20:00 99.5 109 23 100/64 99 Mechanical Ventilator 35 10/13/18 20:00 Mechanical Ventilator Mechanical Ventilator 10/13/18 19:55 107 10/13/18 19:36 115 29 35 10/13/18 16:33 116 33 35 10/13/18 16:00 98.6 105 28 120/80 98 Mechanical Ventilator 35 10/13/18 16:00 Mechanical Ventilator Mechanical Ventilator 10/13/18 16:00 35 10/13/18 15:41 108 10/13/18 14:58 114 30 35 Intake and Output 10/13/18 10/14/18 18:59 06:59 Intake Total 1355 ml 940 ml Output Total 610 ml 1200 ml Balance 745 ml -260 ml IV Total 1355 ml 940 ml Output Urine Total 200 ml 400 ml Stool Total 350 ml 700 ml Drainage Total 60 ml 100 ml # Bowel Movements 2 1 Laboratory Tests 10/14/18 04:00: White Blood Count 20.4H, Red Blood Count 2.06L, Hemoglobin 7.0L, Hematocrit 18.7L, Mean Corpuscular Volume 91, Mean Corpuscular Hemoglobin 34.0H, Mean Corpuscular Hemoglobin Concent 37.5H, Red Cell Distribution Width 14.0, Platelet Count 137L, Mean Platelet Volume 9.5, Neutrophils (%) (Auto) , Lymphocytes (%) (Auto) , Monocytes (%) (Auto) , Eosinophils (%) (Auto) , Basophils (%) (Auto) , Differential Total Cells Counted 100, Neutrophils % ( Manual) 89H, Lymphocytes % (Manual) 5L, Monocytes % (Manual) 3, Eosinophils % ( Manual) 0, Basophils % (Manual) 0, Band Neutrophils 3, Platelet Estimate DecreasedL, Platelet Morphology Normal, Polychromasia 1+, Anisocytosis 1+, Sodium Level 141, Potassium Level 3.0L, Chloride Level 107, Carbon Dioxide Level 16L, Anion Gap 18H, Blood Urea Nitrogen 76H, Creatinine 6.3H, Estimat Glomerular Filtration Rate 9.1, Glucose Level 104, Calcium Level 6.2L Height (Feet): 5 Height (Inches): 5.00 Weight (Pounds): 179 General Appearance: no apparent distress Cardiovascular: tachycardia Respiratory/Chest: decreased breath sounds Abdomen: distended Objective no other changes Josesito Smalls MD Oct 14, 2018 14:26
--- NOTE | 2018-10-14 15:30 | General Progress Note ---
Assessment/Plan Problem List: (1) UTI (urinary tract infection) ICD Codes: N39.0 - Urinary tract infection, site not specified SNOMED: 63606737 (2) Renal failure ICD Codes: N19 - Unspecified kidney failure SNOMED: 41388413 (3) Anemia ICD Codes: D64.9 - Anemia, unspecified SNOMED: 590691471 (4) Acute respiratory failure ICD Codes: J96.00 - Acute respiratory failure, unspecified whether with hypoxia or hypercapnia SNOMED: 06187729 (5) Pneumonia ICD Codes: J18.9 - Pneumonia, unspecified organism SNOMED: 255154469 (6) Septic shock ICD Codes: A41.9 - Sepsis, unspecified organism; R65.21 - Severe sepsis with septic shock SNOMED: 09162406 (7) ATN (acute tubular necrosis) ICD Codes: N17.0 - Acute kidney failure with tubular necrosis SNOMED: 32961144 Status: unchanged Assessment/Plan vent abx wound care neph f/u gi eval,consider comfort measures Subjective Constitutional: Reports: weakness Allergies: Coded Allergies: No Known Allergies (Unverified , 08/14/18) All Systems: reviewed and negative except above Subjective trach vent altered lethargic Objective Last 24 Hour Vital Signs Date Time Temp Pulse Resp B/P (MAP) Pulse Ox O2 Delivery O2 Flow Rate FiO2 10/14/18 15:04 125 33 35 10/14/18 13:21 119 31 35 10/14/18 11:52 112 23 35 10/14/18 09:50 110 25 35 10/14/18 08:00 35 10/14/18 08:00 101 10/14/18 08:00 98.8 101 23 112/68 98 Mechanical Ventilator 35 10/14/18 08:00 Mechanical Ventilator Mechanical Ventilator 10/14/18 07:14 111 23 35 10/14/18 05:30 109 22 35 10/14/18 04:00 Mechanical Ventilator Mechanical Ventilator 10/14/18 04:00 35 10/14/18 04:00 109 10/14/18 04:00 99.9 106 23 114/68 98 Mechanical Ventilator 35 10/14/18 03:30 102 21 35 10/14/18 01:30 109 24 35 10/14/18 00:00 Mechanical Ventilator Mechanical Ventilator 10/14/18 00:00 108 10/14/18 00:00 97.9 105 20 109/66 100 Mechanical Ventilator 35 10/14/18 00:00 35 10/13/18 23:19 106 23 35 10/13/18 21:31 110 25 Mechanical Ventilator 40 10/13/18 21:23 110 25 35 10/13/18 20:00 35 10/13/18 20:00 99.5 109 23 100/64 99 Mechanical Ventilator 35 10/13/18 20:00 Mechanical Ventilator Mechanical Ventilator 10/13/18 19:55 107 10/13/18 19:36 115 29 35 10/13/18 16:33 116 33 35 10/13/18 16:00 98.6 105 28 120/80 98 Mechanical Ventilator 35 10/13/18 16:00 Mechanical Ventilator Mechanical Ventilator 10/13/18 16:00 35 10/13/18 15:41 108 Intake and Output 10/13/18 10/14/18 18:59 06:59 Intake Total 1355 ml 940 ml Output Total 610 ml 1200 ml Balance 745 ml -260 ml IV Total 1355 ml 940 ml Output Urine Total 200 ml 400 ml Stool Total 350 ml 700 ml Drainage Total 60 ml 100 ml # Bowel Movements 2 1 Laboratory Tests 10/14/18 04:00: White Blood Count 20.4H, Red Blood Count 2.06L, Hemoglobin 7.0L, Hematocrit 18.7L, Mean Corpuscular Volume 91, Mean Corpuscular Hemoglobin 34.0H, Mean Corpuscular Hemoglobin Concent 37.5H, Red Cell Distribution Width 14.0, Platelet Count 137L, Mean Platelet Volume 9.5, Neutrophils (%) (Auto) , Lymphocytes (%) (Auto) , Monocytes (%) (Auto) , Eosinophils (%) (Auto) , Basophils (%) (Auto) , Differential Total Cells Counted 100, Neutrophils % ( Manual) 89H, Lymphocytes % (Manual) 5L, Monocytes % (Manual) 3, Eosinophils % ( Manual) 0, Basophils % (Manual) 0, Band Neutrophils 3, Platelet Estimate DecreasedL, Platelet Morphology Normal, Polychromasia 1+, Anisocytosis 1+, Sodium Level 141, Potassium Level 3.0L, Chloride Level 107, Carbon Dioxide Level 16L, Anion Gap 18H, Blood Urea Nitrogen 76H, Creatinine 6.3H, Estimat Glomerular Filtration Rate 9.1, Glucose Level 104, Calcium Level 6.2L Height (Feet): 5 Height (Inches): 5.00 Weight (Pounds): 179 General Appearance: lethargic EENT: normal ENT inspection Neck: normal alignment Cardiovascular: normal peripheral pulses, normal rate, regular rhythm Respiratory/Chest: chest wall non-tender, decreased breath sounds Abdomen: soft, hypoactive bowel sounds Extremities: normal inspection Edema: no edema noted Arm (L), no edema noted Arm (R), no edema noted Leg (L), no edema noted Leg (R), no edema noted Pedal (L), no edema noted Pedal (R), no edema noted Generalized Neurologic: motor weakness Skin: normal pigmentation, warm/dry Jasmeet Reynoso DO Oct 14, 2018 15:30
[2018-10-14 16:00] VITALS: BP 123/67
[2018-10-14] MEDS ORDERED: DAPTOmycin 450 MG in NS 55 ML IV SCH (18:00)
--- NOTE | 2018-10-14 18:08 | Cardiac Electrophysiology PN ---
Assessment/Plan Assessment/Plan 1. S/P Septic and hemorrhagic shock On Abx and off Levophed WBC down from 50 to 19 K 2. Sinus tachycardia due to sepsis, anemia and dehydration. No fibrillation. EF 75%. ECG showed sinus tach 150 3. Troponin elevation due to renal failure. EF 75%. 4. VDRF. S/P Tracheostomy 09/22/18 5. Rhabdomyolysis with CPK in thousands contributing to renal failure. 6. Acute renal failure and severe hyperkalemia. FU by Dr. Smalls 7. Dysphagia, Hx of PEG placement but was dislodged. 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 Left one Bloody. Right one serous FU Dr. Fry 8. GI bleed. S/P EGD by Dr. Horton. S/p PRBCs DW RN DC planning Subjective Subjective On the Vent via tracheostomy on ROBBIE. No events Objective Last 24 Hour Vital Signs Date Time Temp Pulse Resp B/P (MAP) Pulse Ox O2 Delivery O2 Flow Rate FiO2 10/14/18 17:20 122 27 35 10/14/18 16:00 Mechanical Ventilator Mechanical Ventilator 10/14/18 16:00 99.0 115 23 123/67 98 Mechanical Ventilator 35 10/14/18 16:00 35 10/14/18 16:00 101 10/14/18 15:04 125 33 35 10/14/18 13:21 119 31 35 10/14/18 12:00 101 10/14/18 12:00 Mechanical Ventilator Mechanical Ventilator 10/14/18 12:00 98.2 108 23 116/68 98 Mechanical Ventilator 35 10/14/18 12:00 35 10/14/18 11:52 112 23 35 10/14/18 09:50 110 25 35 10/14/18 08:00 35 10/14/18 08:00 101 10/14/18 08:00 98.8 101 23 112/68 98 Mechanical Ventilator 35 10/14/18 08:00 Mechanical Ventilator Mechanical Ventilator 10/14/18 07:14 111 23 35 10/14/18 05:30 109 22 35 10/14/18 04:00 Mechanical Ventilator Mechanical Ventilator 10/14/18 04:00 35 10/14/18 04:00 109 10/14/18 04:00 99.9 106 23 114/68 98 Mechanical Ventilator 35 10/14/18 03:30 102 21 35 10/14/18 01:30 109 24 35 10/14/18 00:00 Mechanical Ventilator Mechanical Ventilator 10/14/18 00:00 108 10/14/18 00:00 97.9 105 20 109/66 100 Mechanical Ventilator 35 10/14/18 00:00 35 10/13/18 23:19 106 23 35 10/13/18 21:31 110 25 Mechanical Ventilator 40 10/13/18 21:23 110 25 35 10/13/18 20:00 35 10/13/18 20:00 99.5 109 23 100/64 99 Mechanical Ventilator 35 10/13/18 20:00 Mechanical Ventilator Mechanical Ventilator 10/13/18 19:55 107 10/13/18 19:36 115 29 35 Intake and Output 10/13/18 10/14/18 18:59 06:59 Intake Total 1355 ml 940 ml Output Total 610 ml 1200 ml Balance 745 ml -260 ml IV Total 1355 ml 940 ml Output Urine Total 200 ml 400 ml Stool Total 350 ml 700 ml Drainage Total 60 ml 100 ml # Bowel Movements 2 1 Laboratory Tests Test 10/14/18 04:00 White Blood Count 20.4 K/UL (4.8-10.8) H Red Blood Count 2.06 M/UL (4.70-6.10) L Hemoglobin 7.0 G/DL (14.2-18.0) L Hematocrit 18.7 % (42.0-52.0) L Mean Corpuscular Volume 91 FL (80-99) Mean Corpuscular Hemoglobin 34.0 PG (27.0-31.0) H Mean Corpuscular Hemoglobin Concent 37.5 G/DL (32.0-36.0) H Red Cell Distribution Width 14.0 % (11.6-14.8) Platelet Count 137 K/UL (150-450) L Mean Platelet Volume 9.5 FL (6.5-10.1) Neutrophils (%) (Auto) % (45.0-75.0) Lymphocytes (%) (Auto) % (20.0-45.0) Monocytes (%) (Auto) % (1.0-10.0) Eosinophils (%) (Auto) % (0.0-3.0) Basophils (%) (Auto) % (0.0-2.0) Differential Total Cells Counted 100 Neutrophils % (Manual) 89 % (45-75) H Lymphocytes % (Manual) 5 % (20-45) L Monocytes % (Manual) 3 % (1-10) Eosinophils % (Manual) 0 % (0-3) Basophils % (Manual) 0 % (0-2) Band Neutrophils 3 % (0-8) Platelet Estimate Decreased L Platelet Morphology Normal Polychromasia 1+ Anisocytosis 1+ Sodium Level 141 MMOL/L (136-145) Potassium Level 3.0 MMOL/L (3.5-5.1) L Chloride Level 107 MMOL/L (98-107) Carbon Dioxide Level 16 MMOL/L (21-32) L Anion Gap 18 mmol/L (5-15) H Blood Urea Nitrogen 76 mg/dL (7-18) H Creatinine 6.3 MG/DL (0.55-1.30) H Estimat Glomerular Filtration Rate 9.1 mL/min (>60) Glucose Level 104 MG/DL (74-106) Calcium Level 6.2 MG/DL (8.5-10.1) L Objective HEENT: S/P tracheostomy. LUNGS: Coarse rhonchi. CARDIOVASCULAR: Regular S1 and S2. ABDOMEN: Incision slightly oozing and has 2 drains EXTREMITIES: No pitting edema. Jasbir Madsen MD Oct 14, 2018 18:08
--- NOTE | 2018-10-14 18:16 | Progress Note ---
DATE: 10/14/2018 SUBJECTIVE: This is a 62-year-old male patient with septic shock. He is confused, disorganized. He has got mood lability worsened by stress of his medical illness. That is why his attending has requested daily psychiatric consultation. DIAGNOSIS: Paranoid schizophrenia with acute exacerbation. MENTAL STATUS EXAMINATION: This is a 62-year-old male. Appearance is disheveled. Attitude, irritable and agitated. Affect, guarded and restricted. Intellect poor. Mood depressed and anxious. Motor activity, psychomotor agitation. The patient's speech is low. Insight and judgment is poor. He is currently in the ICU step-down. He has septic shock, anemia, and GI bleeding. I am going to continue to treat this patient with Risperdal 0.25 mg at bedtime to help stabilize mood, reduce agitation and psychosis. Chart reviewed. Discussed with staff. Virgie Mcdermott M.D. DR: ESCOBAR JOB#: [id number] CC:
[2018-10-14] MEDS ORDERED: NS 275ml ONE (18:29)
[2018-10-14] MEDS ORDERED: Tubing IV Secondary IV ONE (18:29)
[2018-10-14] MEDS ORDERED: D5NS 1000ml IV ONE (18:29)
--- NOTE | 2018-10-16 16:31 | Discharge Summary ---
Discharge Summary Discharge Summary _ DATE OF ADMISSION: 09/07/2018 DATE OF DISCHARGE: 10/14/2018 DISCHARGED BY: Dr. Jasmeet Reynoso CONSULTANTS: Dr. Virgie Lynne [facility] HOSPITAL COURSE: Patient is a 62-year-old male, from [facility], presented to ED for weakness, lethargy, and altered mental status. Patient has a history of diabetes, dysphagia with G-tube, schizophrenia, failure to thrive and generalized weakness. On evaluation at ED, temperature was 103. Patient was tachycardic and hypotensive. Blood work did not show any leukocytosis, giving and hematocrit were stable. Sodium was 145, potassium 8.4, BUN 63, creatinine was 4.8. Lactic acid was elevated to 13. LFTs were elevated. Troponin was 0.124. He was given aggressive IV fluids. He was started on broad-spectrum antibiotics. He was given Kayexalate, calcium, insulin and glucose for hyperkalemia. Central line was placed to the right femoral vein. He was admitted to ICU for septic shock, fever, renal failure, acidosis and hyperkalemia. Patient pulled out the central line that was placed. Blood pressure remained low. A left femoral central line was inserted. Restraints were reinforced. He was eventually started on levophed. [employer] was consulted. He was given IV bicarb. He was given fluid challenge. Patient is not a candidate for hemodialysis due to unstable hemodynamically. ID was consulted. He was given vancomycin and ertapenem. He was given IV pressors. Troponin elevation was likely due to renal failure. Echocardiogram showed ejection fraction of 75%. Total CK was also elevated. Possibly rhabdomyolysis contributing to renal failure. On 09/08/2018, patient was noted to have agonal breathing. ABG showed significant acidosis. Patient was orally intubated. Venous duplex was negative. He was noted to come in with multiple wounds. Patient had full-thickness stage III wound on the right hip; and intact blister on the lateral right abdomen. When wound care. He was placed on air-fluidized mattress with frequent repositioning and offloading. He was given nutritional optimization to help recover and heal wounds. Psychiatric evaluation was done. Patient has underlying history of paranoid schizophrenia. He was given Risperdal. Sputum culture showed normal lisseth. Influenza screen negative. Urine culture was negative. Blood culture with gram positive rods, 1 out of 2. Ertapenem was discontinued. He was given ceftriaxone together with vancomycin. Renal failure was improving. On 09/12/2018, he was eventually taken off IV pressors. Patient was noted to have high residual. He was given Reglan. G-tube was noted to have blood-tinged material. Tube feeding was placed on hold is placed on suction. Reglan was eventually discontinued due to rising creatinine. He was given erythromycin for GI motility. He was placed on PPI. G-tube suction was noted to have bloody output. Patient would need endoscopy. However, no family to obtain consent. Bioethics consultation was made. Repeat blood culture not isolate any growth. Vancomycin was discontinued. On 09/18/2018, he underwent EGD with findings showed distal esophagitis and malpositioned NG tube. G-tube was replaced with a 20 Syriac pull type G-tube. There was no active bleeding noted, he was resumed on tube feeding. Patient was failing weaning process. He completed antibiotic treatment and was monitored off antibiotics. He had diarrhea. C. difficile was negative. Leukocytosis increased. WBC jumped to 17. CT of the abdomen showed gastrostomy tube to be partially intraluminal and communicating with large intramural collection involving the inferior posterior wall of the stomach. There was anterior wall pneumatosis. There was evidence of rupture of collection into the peritoneal space, with extravasated contrast in the left upper quadrant. There was noted leak around the G-tube site. There was noted peritonitis with hematoma formation. On 09/22/2018, he underwent exploratory laparotomy with repair of gastric perforation, evacuation of abdominal omental hematoma, evacuation of perisplenic abscess and abdominal washout. He also underwent tracheostomy. Leukocytosis worsened. He was restarted on Zosyn. He was given IV micafungin. He was given TPN. Creatinine was also rising. Leukocytosis persisted. Urine culture done on 09/28/2018 did not isolate any growth. Blood culture with no growth. ELISABET drain culture showed Nicky tropicalis. Zosyn was switched to meropenem. IV daptomycin was added due to given decompensation. He was continued on IV micafungin. He was noted to have bloody output from the left drain site. There was a drop in hemoglobin. He was given blood transfusions. He continued to drain blood from the drains. Patient had significant coagulopathy. There was a drop in platelet, potentially DIC. He was given fresh frozen plasma transfusion. Bioethics committee was called. Patient did not respond to appropriate care. Further aggressive care appears futile. Given the clinical situation, patient was made DNR/no ICU transfer. He was eventually transferred to [facility]. FINAL DIAGNOSES: Septic shock and hypovolemic shock Acute respiratory failure requiring intubation status post tracheostomy Acute renal failure due to ATN Troponin elevation due to renal failure Rhabdomyolysis Dysphagia Dislodged G-tube, status post PEG replacement Status post exploratory laparotomy, repair of gastric perforation, evacuation of splenic abscess GI bleed status post endoscopy Paranoid schizophrenia Metabolic acidosis Lactic acidosis Hyperkalemia Transaminitis Quadriplegia Diabetes mellitus Severe protein calorie malnutrition Full-thickness stage III wound on the right hip, present on admission Possible DIC DNR status DISPOSITION: Patient was transferred to LTAC. I have been assigned to complete a discharge summary on this account, I was not involved with the patient's management. Meggan Mcnamara NP Oct 16, 2018 16:31
== END 2018-10-14 18:30 | DRG 3 ==
LOC: EDBD 11:54 → EMR 12:30 → ICU 14:24 → EDBEDREQ 14:28 → ICU 15:30 → 2W 09-24 10:42 → ICU 10-07 19:35 → 2W 10-13 06:48
PROC: 5A1955Z Respiratory Ventilation, Greater than 96 Consecutive Hours (ICD-10-PCS; principal; 2018-09-07)
PROC: 06HM33Z Insertion of Infusion Device into Right Femoral Vein, Percutaneous Approach (ICD-10-PCS; principal; 2018-09-07)
PROC: 0BH17EZ Insertion of Endotracheal Airway into Trachea, Via Natural or Artificial Opening (ICD-10-PCS; principal; 2018-09-07)
PROC: 06HN33Z Insertion of Infusion Device into Left Femoral Vein, Percutaneous Approach (ICD-10-PCS; principal; 2018-09-07)
PROC: B548ZZA Ultrasonography of Superior Vena Cava, Guidance (ICD-10-PCS; 2018-09-15)
PROC: 02HV33Z Insertion of Infusion Device into Superior Vena Cava, Percutaneous Approach (ICD-10-PCS; 2018-09-15)
PROC: 0DJ08ZZ Inspection of Upper Intestinal Tract, Via Natural or Artificial Opening Endoscopic (ICD-10-PCS; 2018-09-18)
PROC: 0D20XUZ Change Feeding Device in Upper Intestinal Tract, External Approach (ICD-10-PCS; 2018-09-18)
PROC: 0B110F4 Bypass Trachea to Cutaneous with Tracheostomy Device, Open Approach (ICD-10-PCS; 2018-09-22)
PROC: 0DQ60ZZ Repair Stomach, Open Approach (ICD-10-PCS; 2018-09-22)
PROC: 0WCG0ZZ Extirpation of Matter from Peritoneal Cavity, Open Approach (ICD-10-PCS; 2018-09-22)
PROC: 0DBU0ZZ Excision of Omentum, Open Approach (ICD-10-PCS; 2018-09-22)
PROC: 07TP0ZZ Resection of Spleen, Open Approach (ICD-10-PCS; 2018-09-22)
DX: A41.9 Sepsis, unspecified organism (principal); L89.213 Pressure ulcer of right hip, stage 3; R65.21 Severe sepsis with septic shock; N17.0 Acute kidney failure with tubular necrosis; K65.8 Other peritonitis; R53.2 Functional quadriplegia; E43 Unspecified severe protein-calorie malnutrition; R57.1 Hypovolemic shock; D65 Disseminated intravascular coagulation [defibrination syndrome]; J18.9 Pneumonia, unspecified organism; J96.01 Acute respiratory failure with hypoxia; G92 Toxic encephalopathy; E87.2 Acidosis; K94.22 Gastrostomy infection; K91.870 Postprocedural hematoma of a digestive system organ or structure following a digestive system procedure; K94.23 Gastrostomy malfunction; K91.71 Accidental puncture and laceration of a digestive system organ or structure during a digestive system procedure; N39.0 Urinary tract infection, site not specified; F20.0 Paranoid schizophrenia; M62.82 Rhabdomyolysis; Z99.11 Dependence on respirator [ventilator] status; E87.5 Hyperkalemia; K94.29 Other complications of gastrostomy; D73.5 Infarction of spleen; D73.3 Abscess of spleen; D64.9 Anemia, unspecified; R13.10 Dysphagia, unspecified; R62.7 Adult failure to thrive; Z68.29 Body mass index [BMI] 29.0-29.9, adult; E11.9 Type 2 diabetes mellitus without complications; F32.9 Major depressive disorder, single episode, unspecified; Z78.1 Physical restraint status; K20.9 Esophagitis, unspecified; Z66 Do not resuscitate; Z51.5 Encounter for palliative care; R19.7 Diarrhea, unspecified; K29.70 Gastritis, unspecified, without bleeding; I27.20 Pulmonary hypertension, unspecified
CPT/HCPCS: 31500; 36415; 36569; 36600; 70450; 71045; 74018; 74177; 76937; 80048; 80053; 80061; 80076; 80202; 81001; 81003; 82140; 82248; 82270; 82533; 82550; 82553; 82607; 82728; 82746; 82803; 82962; 82977; 83036; 83540; 83550; 83605; 83735; 83880; 84100; 84133; 84300; 84439; 84443; 84484; 84550; 85007; 85025; 85610; 85651; 85730; 86140; 86710; 86850; 86870; 86900; 86901; 86904; 86920; 86927; 87040; 87070; 87081; 87086; 87181; 87205; 87324; 89050; 93005; 93306; 93970; 94002; 94003; 94150; 94664; 96361; 96365; 96368; 96375; 96376; 99291; J1815; J2250; J2370; J2405; J2765